=== PATIENT | female | born 1990 | race Caucasian/White ===

== ENCOUNTER 2023-06-17 16:45 | Outpatient (OUT) | payer OTHER, SELFPAY ==
[2023-06-17 17:34] LABS: Basophils Absolute Auto 0.1 10^3/uL (0.0-0.1); Basophils Percent Auto 0.7 % (0.2-2.0); Eosinophils Absolute Auto 0.3 10^3/uL (0.0-0.7); Eosinophils Percent Auto 2.7 % (0.9-7.0); Hematocrit 43.8 % (36.0-48.0); Hemoglobin 14.9 g/dL (12.0-16.0); Immature Granulocytes Abs Auto 0.02 10^3/uL (0.00-0.03); Immature Granulocytes Pct Auto 0.2 % (0.0-0.5); Lymphocytes Absolute Auto 2.6 10^3/uL (1.2-3.8); Lymphocytes Percent Auto 25.5 % (20.5-60.0); Mean Corpuscular Hemoglobin 29.3 pg (26.7-34.0); Mean Corpuscular Volume 86.1 fL (81.0-99.0); Mean Platelet Volume 12.7 fL (9.5-13.5); Monocytes Absolute Auto 0.5 10^3/uL (0.3-0.8); Monocytes Percent Auto 5.3 % (1.7-12.0); Neutrophils Absolute Auto 6.7 10^3/uL (1.4-6.5); Neutrophils Percent Auto 65.6 % (43.0-75.0); Platelet Count 210 10^3/uL (150-450); Red Blood Count 5.09 10^6/uL (4.20-5.40); Red Cell Distribution Width 15.3 % (11.0-15.0); White Blood Count 10.1 10^3/uL (4.0-11.0)
[2023-06-17 17:55] LABS: Percent Iron Saturation 9.7 %
[2023-06-17 18:34] LABS: Alanine Aminotransferase 24 U/L (14-59); Albumin Globulin Ratio 1.1; Albumin Level 3.8 g/dL (3.4-5.0); Alkaline Phosphatase 128 U/L (46-116); Anion Gap 16.1; Aspartate Amino Transferase 20 U/L (15-37); BUN Creatinine Ratio 16.5; Bilirubin Total 0.9 mg/dL (0.2-1.0); Calcium 8.5 mg/dL (8.5-10.1); Carbon Dioxide 27.1 mmol/L (21.0-32.0); Chloride 106 mmol/L (98-107); Estimated GFR (African America >60 (>=60); Estimated GFR (Non-African Ame >60 (>=60); Globulin 3.4 g/dL; Glucose 84 mg/dL (74-106); Phosphorus 2.8 mg/dL (2.6-4.7); Sodium 147 mmol/L (136-145); Total Protein 7.2 g/dL (6.4-8.2)
[2023-06-17 19:00] LABS: Magnesium 2.2 mg/dL (1.8-2.4)
[2023-06-18 08:26] LABS: Potassium 2.2 mmol/L (3.5-5.1)
[2023-06-22 12:08] LABS: Vitamin B1 (Thiamine), Blood 90.5 nmol/L (66.5-200.0)
== END 2023-06-17 16:46 | disposition home or self-care (01) ==
LOC: LAB 16:51
PROVIDERS: PCP Family Medicine
DX: K90.9 Intestinal malabsorption, unspecified (principal); Z98.84 Bariatric surgery status; D50.9 Iron deficiency anemia, unspecified; I10 Essential (primary) hypertension; E87.6 Hypokalemia; K21.00 Gastro-esophageal reflux disease with esophagitis, without bleeding
CPT/HCPCS: 36415; 80053; 82306; 82607; 82728; 82746; 83540; 83550; 83735; 84100; 84425; 85025

== ENCOUNTER 2023-08-20 09:54 | Outpatient (OUT) | payer OTHER, SELFPAY ==
--- OUTSIDE RECORDS SUMMARY | 2023-08-20 09:59 | XMS_ITS | CCD ---
Author Name Unknown Address [address] [place] [address] Organization [facility] Care Team Providers [facility] Clinical Research Associate Name Role Phone Spasic, Carmelo Unavailable Unavailable Roryc, Carmelo Unavailable Unavailable IMMANUEL KUHN Unavailable Unavailable Immanuel Kuhn Unavailable Unavailable Unavailable DO Immanuel Kuhn Primary Care Provider NETTIE Prakash Attending Provider REJI Rhodes Attending Provider [phone] Manasa Rhodes Admitting Unavailable Immanuel Kuhn Primary Care Unavailable Manasa Rhodes Attending Unavailable Immanuel Kuhn Primary Care Unavailable Tiarra Prakash Attending Unavailable Tiarra Prakash Admitting Unavailable RAVINDRA LEMA Referring Unavailable RAVINDRA LEMA Attending Unavailable RAVINDRA LEMA Attending Unavailable PAY ., DR TIWARI Attending Unavailable PAY ., DR TIWARI Consulting Unavailable PAY ., DR TIWARI Admitting Unavailable BAM, DR MILLER Primary Care Unavailable PAY ., DR TIWARI Attending Unavailable PAY ., DR TIWARI Consulting Unavailable BAM, DR MILLER Primary Care Unavailable PAY ., DR TIWARI Admitting Unavailable ZAKIA BENSON Admitting Unavailable ZAKIA BENSON Attending Unavailable ZAKIA BENSON Consulting Unavailable BAM, DR MILLER Primary Care Unavailable BAM, DR MILLER Primary Care Unavailable MISC, DR INIGUEZ Admitting Unavailable MISC, DR INIGUEZ Attending Unavailable MISC, DR INIGUEZ Consulting Unavailable BRIDGETTE, DR MURO Admitting Unavailable BRIDGETTE, DR MURO Attending Unavailable BRIDGETTE, DR MURO Consulting Unavailable BAM, DR MILLER Primary Care Unavailable Judy, Dr. Hull Attending Dr. Immanuel Linn Primary Care Unavailhermes Kim, Dr. Hull Attending Nadia Kim, Dr. Hull Referring Unavailhermes Kuhn, Dr. Immanuel Toure Primary Care Unavaila JUAN Watt Attending Unavailable GAGANDEEP DUNAWAYANDRA Colon Referring Unavailable ТАТЬЯНА RODRIGUEZ Attending Unavailable IMMANUEL KUHN Referring Unavailable SHEILA LOUIS Attending Unavailable MANASA DUNAWAY Attending Unavailable SHEILA LOUIS Attending Unavailable IMMANUEL KUHN Referring Unavailable ALEX NAIK Attending Unavailable GAGANDEEP DUNAWAYANDRA H Referring Unavailable JUAN BARON Attending Unavailable GAGANDEEP DUNAWAYANDRA H Referring Unavailable JHONY GARCIA Attending Unavailable GAGANDEEP DUNAWAYANDRA H Referring Unavailable JUAN BARON Attending Unavailable GAGANDEEP DUNAWAYANDRA H Referring Unavailable Allergies Allergy Classification Reported Allergen(s) Allergy Type Date of Onset Reaction(s) Facility (1 source) No Known Medication Allergies; Translations: [No Known Medication Allergies] Propensity to adverse reactions to drug (disorder) [facility] Medications Current Medications Medication Drug Class(es) Dates Sig (Normalized) Sig (Original) loperamide hydrochloride 2 mg oral tablet (2 sources) Opioid Agonist Start: 05-03-2017 Loperamide (Imodium A-D) 2 mg tablet Active 2 MG PO Q4H May 02, 2017 11:00pm after each loose stool until symptoms controlled; do not exceed 16 mg total dose in 24 hrs promethazine hydrochloride 25 mg oral tablet (2 sources) Phenothiazine Start: 05-03-2017 take 25 mg by mouth every six hours Promethazine Active 25 MG PO Q6H May 02, 2017 11:00pm Completed/Discontinued Medications Medication Drug Class(es) Dates Sig (Normalized) Sig (Original) amLODIPine 10 mg oral tablet (2 sources) Dihydropyridine Calcium Channel Clover Start: 12-03-2021 take 1 tablet by mouth once daily amLODIPine Besylate 10 MG Oral Tablet TAKE 1 TABLET BY MOUTH EVERY DAY Quantity: 90 Refills: 0 Ordered: 11-Mar-2022 DO Start : 03-Dec-2021 Active carvedilol 25 mg oral tablet (2 sources) alpha-Adrenergic Clover, beta-Adrenergic Clover Start: 08-18-2021 take 1 tablet by mouth twice daily Carvedilol 25 MG Oral Tablet take 1 tablet by mouth twice a day Quantity: 180 Refills: 3 Ordered: 07-Aug-2022 Della Kim MD Start : 18-Aug-2021 Active gabapentin 400 mg oral capsule (2 sources) Anti-epileptic Agent Start: 05-20-2022 take 1 capsule by mouth twice daily Gabapentin 400 MG Oral Capsule Take 1 capsule twice daily Quantity: 0 Refills: 0 Ordered: 20-May-2022 DO Start : 20-May-2022 Active hydrALAZINE hydrochloride 25 mg oral tablet (2 sources) Arteriolar Vasodilator Start: 04-23-2022 take 1 tablet by mouth twice daily at mealtime hydrALAZINE HCl - 25 MG Oral Tablet TAKE 1 TABLET BY MOUTH TWICE A DAY WITH FOOD Quantity: 180 Refills: 0 Ordered: 24-Apr-2022 DO Start : 23-Apr-2022 Active lamoTRIgine 150 mg oral tablet (2 sources) Mood Stabilizer, Anti-epileptic Agent Start: 05-21-2022 take 1 tablet by mouth twice daily lamoTRIgine 150 MG Oral Tablet TAKE 1 TABLET TWICE DAILY. Quantity: 0 Refills: 0 Ordered: 21-May-2022 DO Start : 21-May-2022 Active Natazia 3/2-2/2-3/1 MG Oral Tablet (2 sources) Start: 09-27-2021 take 1 tablet by mouth once daily Natazia 3/2-2/2-3/1 MG Oral Tablet TAKE 1 TABLET BY MOUTH EVERY DAY CONTINUOUSLY Quantity: 28 Refills: 0 Ordered: 29-May-2022 DO Start : 27-Sep-2021 Active microencapsulated potassium chloride 20 meq extended release oral tablet (2 sources) Start: 04-27-2022 take 1 tablet by mouth once daily Klor-Con M20 20 MEQ Oral Tablet Extended Release TAKE 1 TABLET BY MOUTH EVERY DAY Quantity: 90 Refills: 0 Ordered: 27-Apr-2022 DO Start : 27-Apr-2022 Active Problems Active Problems Problem Classification Problem Date Documented Da te Episodic/Chronic Administrative/social admission (4 sources) Encounter for blood-alcohol and blood-drug test; Translations: [ENC BLOOD-ALCOHOL BLOOD-DRUG TEST] Onset: 10-23-2022 Episodic Cancer of brain and nervous system (2 sources) Malignant neoplasm of brain, unspecified; Translations: [Malignant neoplasm of brain, unspecified] Onset: 10-22-2022 Chronic Essential hypertension (4 sources) Benign essential hypertension; Translations: [Benign essential hypertension] 05-03-2017 Chronic Menstrual disorders (1 source) Dysmenorrhea, unspecified; Translations: [DYSMENORRHEA UNSPECIFIED] Onset: 01-10-2022 Chronic Nausea and vomiting (2 sources) Nausea; Translations: [Nausea] 05-03-2017 Episodic Other connective tissue disease (1 source) Plantar fascial fibromatosis; Translations: [Plantar fascial fibromatosis] Onset: 09-13-2022 Episodic Other endocrine disorders (2 sources) Polycystic ovary syndrome; Translations: [Polycystic ovaries] Chronic Other endocrine disorders (4 sources) Polycystic ovarian syndrome; Translations: [POLYCYSTIC OVARIAN SYNDROME] Onset: 01-04-2022 Chronic Other gastrointestinal disorders (2 sources) Diarrhea; Translations: [Diarrhea, unspecified] 05-03-2017 Episodic Other nutritional; endocrine; and metabolic disorders (2 sources) Body mass index 40+ - severely obese; Translations: [Morbid obesity] Chronic Other nutritional; endocrine; and metabolic disorders (1 source) Obesity, unspecified; Translations: [OBESITY UNSPECIFIED] Onset: 09-10-2022 Chronic Other nutritional; endocrine; and metabolic disorders (1 source) Body mass index (BMI) 45.0-49.9, adult; Translations: [BODY MASS INDEX BMI 45.0-49.9 ADULT] Onset: 09-10-2022 Chronic Residual codes; unclassified (1 source) Tobacco use; Translations: [TOBACCO USE] Onset: 10-27-2022 Episodic Screening and history of mental health and substance abuse codes (2 sources) Ex-smoker; Translations: [Personal history of tobacco use] Episodic Comment on above: quit 2021; Unclassified (2 sources) Consult; Translations: [Consult] Onset: 09-10-2022 Unclassified (1 source) CONTACT W/AND (SUSP) EXPOS COVID-19; Translations: [CONTACT W/AND (SUSP) EXPOS COVID-19] Onset: 12-13-2022 Past or Other Problems Problem Classification Problem Date Documented Da te Episodic/Chronic Fluid and electrolyte disorders (5 sources) Hypokalemia; Translations: [Hypokalemia] Onset: 09-07-2022 Episodic Other aftercare (1 source) Other residential (current) drug therapy; Translations: [OTH CATALYST IMPREGNATOR CURRENT DRUG THERAPY] Onset: 09-10-2022 Episodic Results Test Name Value Interpretation Reference Range Facility CT ABDOMEN W AND WO IV CONTR Sheela 07-03-2023 CT ABDOMEN W AND WO IV CONTRAST EXAM: CT ABDOMEN W AND WO IV CONTRAST History: recheck of left adrenal nodule, was 8 mm 4 years ago. Technique: Multiple contiguous axial images were obtained of the abdomen and pelvis from the level of the lung bases through the ischial tuberosities without and with contrast. Multiplanar reformats were obtained. 15-minute delayed images were obtained. All CT scans at this facility use dose modulation, iterative reconstruction, and/or weight based dosing when appropriate to reduce radiation dose to as low as reasonably achievable. Comparison: None available Findings: Lung bases are clear. A left adrenal nodule measures approximately 18 mm. Precontrast Hounsfield units of 6, 75-second postcontrast Hounsfield units of 29, and 15-minute delayed Hounsfield units of -44 absolute washout of 143.5% and relative washout of 113.8%. Postsurgical changes of the stomach. The liver, gallbladder, spleen, pancreas, and right adrenal gland are within normal limits. The kidneys enhance uniformly. There are a few tiny nonobstructing left renal calculi. No left-sided hydronephrosis. No right-sided urinary tract calculi or hydronephrosis. Abdominal aorta is nonaneurysmal. No retroperitoneal or abdominal/pelvic lymphadenopathy. Evidence of prior bowel resection. The visualized large and small bowel appear otherwise within normal limits. No acute osseous abnormality. IMPRESSION: 18 mm left adrenal nodule compatible with adrenal adenoma. ELECTRONICALLY SIGNED BY: Karson Painter, DO Normal Not Available Covid-19 PCR (CVDTB)on SARS-CoV-2 (COVID-19) RNA DARWIN+probe Ql (Unsp spec) Not detected Normal NOT DETECTED [facility] Comment on above: Result Comment: This test is not yet approved or cleared by the [place] FDA. When there are no FDA-approved or cleared tests available, and other criteria are met, FDA can make tests available under an emergency access mechanism called an Emergency Use Authorization (EUA). The EUA for this test is supported by the [place] of Health and Human Service's (HHS's) declaration that circumstances exist to justify the emergency use of in vitro diagnostics for the detection and/or diagnosis of the virus that causes COVID-19. This EUA will remain in effect (meaning this test can be used) for the duration of the COVID-19 declaration justifying emergency of IVDs, unless it is terminated or revoked by FDA (after which the test may no longer be used). When diagnostic testing is negative, the possibility of a false negative should be considered in the context of a patient's recent exposures and the presence of clinical signs and symptoms consistent with SARS-CoV-2. Performed By: #### C VDTBH #### [facility] [address] [place] [address] Dr. Maylin Ch Follow-Upon 11-05-2022 Follow-Up [id number] Janine Joy 1990 F Date Provider Department Center 11/05/2022 RAVINDRA BUCKLEY ONC DCC Family History Problem Relation Age of Onset Diabetes Mother Thyroid cancer Mother Diabetes Father Hypertension Father Family Status - Relation Status Age at Mother Father Level of Service:33102 UT OFFICE/OUTPATIENT ESTABLISHED MOD MDM 30-39 MIN Normal [facility] DRUG SCREEN RAPID (URINE)on 10-23-2022 AMP Negative Normal NEGATIVE [facility] Comment on above: Performed By: #### D RUGRPD #### [facility] [address] [place] [address] Dr. Maylin Ch BAR Negative Normal NEGATIVE [facility] Comment on above: Performed By: #### D RUGRPD #### [facility] [address] [place] [address] Dr. Maylin Ch BUP Negative Normal NEGATIVE [facility] Comment on above: Performed By: #### D RUGRPD #### [facility] [address] [place] [address] Dr. Maylin Ch BZO Negative Normal NEGATIVE [facility] Comment on above: Performed By: #### D RUGRPD #### [facility] [address] [place] [address] Dr. Maylin Ch DRE Negative Normal NEGATIVE [facility] Comment on above: Performed By: #### D RUGRPD #### [facility] [address] [address] [address] Maylin Ch CUT-OFFS SEE BELOW Normal [facility] Comment on above: Result Comment: AMP (Amphetamine): 500ng/mL, BAR (Barbituates): 200 ng/mL, BZO (Benzodiazepines): 150 ng/mL, BUP (Buprenorphine): 10 ng/mL, DRE (Cocaine): 150 ng/mL, mAMP (Methamphetamine): 500 ng/mL, MTD (Methadone): 200 ng/mL, OPI (Opiates): 100 ng/mL, OXY (Oxycodone): 100 ng/mL, PCP (Phencyclidine): 25 ng/mL, PPX (Propoxyphene): 300 ng/mL, THC (Cannabinoids): 50 ng/mL, TCA (Trycyclic Antidepressants): 300 ng/mL Performed By: #### D RUGRPD #### [facility] [address] [place] [address] Dr. Maylin Ch DRUG CUT HEADER DRUG CLASS TEST SYST EM CUT-OFF CONCENTRATIONS ARE FOLLOWS: Normal [facility] Comment on above: Performed By: #### D RUGRPD #### [facility] [address] [place] [address] Dr. Maylin Ch mAMP Negative Normal NEGATIVE [facility] Comment on above: Performed By: #### D RUGRPD #### [facility] [address] [place] [address] Dr. Maylin Ch MTD Negative Normal NEGATIVE [facility] Comment on above: Performed By: #### D RUGRPD #### [facility] [address] [place] [address] Dr. Maylin Ch OPI Negative Normal NEGATIVE [facility] Comment on above: Performed By: #### D RUGRPD #### [facility] [address] [address] [address] Maylin Ch OXY Negative Normal NEGATIVE [facility] Comment on above: Performed By: #### D RUGRPD #### [facility] [address] [place] [address] Dr. Maylin Ch PCP Negative Normal NEGATIVE [facility] Comment on above: Performed By: #### D RUGRPD #### [facility] [address] [address] [address] Maylin Ch PPX Negative Normal NEGATIVE [facility] Comment on above: Performed By: #### D RUGRPD #### [facility] [address] [id number] Maylin Ch TCA Negative Normal NEGATIVE [facility] Comment on above: Performed By: #### D RUGRPD #### [facility] [address] [address] [address] Maylin Ch THC Negative Normal NEGATIVE [facility] Comment on above: Performed By: #### D RUGRPD #### [facility] [address] [address] [address] 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 Follow-up examination. TECHNIQUE: Multiplanar and multisequence MRI examination of brain is performed without and with intravenous contrast administration. COMPARISON: Comparison is made with most recent prior postoperative MRI examination of 03/17/[address] scan of the brain of 06/08/2018. FINDINGS: The ventricular system is normal in size and configuration. 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 There is an encephalomalacia with gliosis in the right frontal lobe. No abnormal enhancement is seen. No significant interval change from prior study. Appearance is consistent with postoperative change. No evidence of recurrent neoplasm. Diffusion-weighted study demonstrates no evidence of restricted diffusion to suggest acute or subacute age of infarction. There is a herniation of the cerebral tonsils consistent with Chiari malformation. Overall appearance is stable from prior study. Brainstem is unremarkable. No mass effect, midline shift of the structures or extra-axial fluid collections are noted. Postcontrast examination reveals no abnormal meningeal or parenchymal enhancement. Both internal carotid and vertebral basilar arteries are patent. Dural venous sinuses are patent without evidence of thrombosis. Visualized paranasal sinuses and mastoid air cells are clear. 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 Postsurgical changes seen in the right frontal lobe with gliosis without interval change from prior postoperative examination. No evidence of recurrent neoplasm. 2.Chiari I malformation and appears stable. 3.No evidence of ventriculomegaly. Electronically signed: Frank Lara. Normal [facility] Potassiumon 09-13-2022 Potassium [Moles/Vol] 3.3 mmol/L Low 3.5-5.1 [facility] Comment on above: Order Comment: Reaso n for Exam Plantar fasciitis;Encounter for preoperative assessment Result Comment: PERF ORMED BY: [facility] [address] [place] [address] PATHOLOGIST OPTOMETRIC COORDINATOR MARY ANN LAL M.D. Performed By: #### K #### [facility] [address] Serum or plasma potassium me asurement (moles/volume)Ordered By: Manasa Rhodes on 09-13-2022 Potassium [Moles/Vol] 3.3 mmol/L 3.5-5.1 [facility] Office Visiton 09-10-2022 Follow-up visit [id number] Janine Joy 1990 F Date Provider Department Center 09/10/2022 RAVINDRA BUCKLEY DCC ONC DCC Family History Problem Relation Age of Onset Diabetes Mother Thyroid cancer Mother Diabetes Father Hypertension Father Family Status - Relation Status Age at Mother Father Level of Service:60687 UT OFFICE/OUTPATIENT ESTABLISHED MOD MDM 30-39 MIN Reason for Visit and Comments: Consult [484] - Past patient, coming back today to have imaging reordered. Normal [facility] Orders Onlyon 09-10-2022 Orders Only [id number] Janine Joy 1990 F Date Provider Department Center 09/10/2022 MONICA DOMINGUEZ DCC ONC DCC Family History Problem Relation Age of Onset Diabetes Mother Thyroid cancer Mother Diabetes Father Hypertension Father Family Status - Relation Status Age at Mother Father Normal [facility] MAGNESIUMon 09-07-2022 Magnesium [Mass/Vol] 1.9 mg/dL Normal 1.8-2.[address] [facility] Comment on above: Performed By: #### M YAMILET Yun, SHARITA #### [facility] [address] [address] [address] Maylin Ch PHOSPHORUSon 09-07-2022 Phosphate [Mass/Vol] 3.7 mg/dL Normal 2.6-4.7 [facility] Comment on above: Performed By: #### M G, PHOS, BMP #### [facility] [address] [address] [address] Maylin Ch PROF CHEM 8 (BAS METB)on Anion gap [Moles/Vol] 14.3 mmol/L Normal [facility] Comment on above: Performed By: #### M G, PHOS, BMP #### [facility] [address] [place] [address] Dr. Maylin Ch Calcium [Mass/Vol] 9.3 mg/dL Normal 8.5-10.1 [facility] Comment on above: Performed By: #### M G, PHOS, BMP #### [facility] [address] [place] [address] Dr. Maylin Ch Chloride [Moles/Vol] 105 mmol/L Normal 98-107 [facility] Comment on above: Performed By: #### M G, PHOS, BMP #### [facility] [address] [address] [address] Maylin Ch CO2 [Moles/Vol] 31.0 mmol/L Normal 21.0-32.0 [facility] Comment on above: Performed By: #### M G, PHOS, BMP #### [facility] [address] [place] [address] Dr. Maylin Ch Creatinine [Mass/Vol] 0.90 mg/dL Normal 0.55-1.02 [facility] Comment on above: Performed By: #### M G, PHOS, BMP #### [facility] [address] [place] [address] Dr. Maylin Ch EGFR-AF GEORGIAN >60 Normal >=60 [facility] Comment on above: Performed By: #### M G, PHOS, BMP #### [facility] [address] [place] [address] Dr. Maylin Ch EGFR-NON AF GEORGIAN >60 Normal >=60 [facility] Comment on above: Performed By: #### M YAMILET Yun, BMP #### [facility] [address] [address] [address] Maylin hC Glucose [Mass/Vol] 158 mg/dL Critically high 74-106 [facility] Comment on above: Performed By: #### YAMILET Lopez, BMP #### [facility] [address] [address] [address] Maylin Ch Potassium [Moles/Vol] 2.3 mmol/L Critically low 3.5-5.1 [facility] Comment on above: Performed By: #### YAMILET Lopez, BMP #### [facility] [address] [address] [address] Maylin Ch Sodium [Moles/Vol] 147 mmol/L Critically high 136-145 [facility] Comment on above: Performed By: #### YAMILET Lopez, BMP #### [facility] [address] [address] [address] Maylin Ch Urea nitrogen [Mass/Vol] 7.0 mg/dL Normal 7.0-18.0 [facility] Comment on above: Performed By: #### YAMILET Lopez, BMP #### [facility] [address] [address] [address] Maylin Ch Urea nitrogen/Creatinine [Mass ratio] 7.8 mg/mg Normal [facility] Comment on above: Performed By: #### YAMILET Lopez, BMP #### [facility] [address] [place] [address] Dr. Maylin Ch Potassiumon 09-07-2022 Potassium [Moles/Vol] 2.4 mmol/L Off scale low 3.5-5.1 [facility] Comment on above: Result Comment: Resu lts called at 0807 on 09/07/22 PERFORMED BY: [place] [address] PATHOLOGIST OPTOMETRIC COORDINATOR MARY ANN LAL M.D. Performed By: #### K #### [address] Serum or plasma potassium me asurement (moles/volume)Ordered By: NON STAFF on 09-07-2022 Potassium [Moles/Vol] 2.4 mmol/L 3.5-5.1 [facility] Comment on above: Results calledat 080 7 on 09/07/22 Office Visit (Cardiology)on 06-06-2022 Follow-up visit Diagnoses/Problems Assessed Essential hypertension, benign (401.1) (I10) Former smoker (V15.82) (Z87.891) quit 2021 Preop cardiovascular exam (V72.81) (Z01.810) Morbid obesity with BMI of 45.0-49.9, adult (278.01,V85.42) (E66.01,Z68.42) Polycystic ovary disease (256.4) (E28.2) Orders Morbid obesity with BMI of 45.0-49.9, adult Healthy Weight Tips; Status:Complete - Retrospective Authorization; Done: 06Jun2022 Some eating tips that can help you lose weight.; Status:Complete - Retrospective Authorization; Done: 06Jun2022 Preop cardiovascular exam IO EKG Electrocardiogram- 12 Lead; Status:Complete; Done: 06Jun2022 SocHx: Former smoker Tobacco Use Screening; Status:Complete; Done: 06Jun2022 Patient Instructions Please bring all medicines, vitamins, and herbal supplements with you when you come to the office. Prescriptions will not be filled unless you are compliant with your follow up appointments or have a follow up appointment scheduled as per instruction of your physician. Refills should be requested at the time of your visit. Patient is clear for surgery from a cardiac standpoint Follow up in [9 ] months Chief Complaint HEIDI JOY is being seen for a consultation for. POC Dr. Benson, [facility] Bariatrics- Bariatric sx History of Present Illness Patient is here for evaluation for preoperative risk assessment. She is a 31-year-old with previous history of resection of malignant brain tumor, morbid obesity and hypertension. She is in the process of being evaluated for bariatric surgery. Patient is otherwise in good physical condition. She denies any complaint of chest pain, palpitation, lightheadedness, dizziness or syncope. There is no previous history of coronary artery disease or valvular heart disease. There is no history of arrhythmia or premature sudden cardiac in the family Assessment 1. Hypertension appears to be controlled. She report her recent CT scan suggest of possible adrenal mass. She reports she was seen by endocrinology but apparently no work-up was done according to her 2. Obesity with recent significant weight gain 3. History of malignant brain tumor status post resection detail is lacking 4. History of polycystic ovary disease with heavy menses 5. Iron deficiency anemia . Patient was seen in the past by endocrinology for concern about adrenal abnormalities Plan 1. Preoperative risk assessment for bariatric surgery. Patient is functional class I with no cardiac symptoms with normal cardiovascular examination abnormal EKG. Based on ACC/AHA guidelines patient can proceed to surgery without any delay or testing 2. I counseled the patient at great length regarding nonpharmacologic approach for treatment of hypertension including diet, exercise, salt restriction and weight loss 3 . Continue present antihypertensive medication 9 4. Follow-up in 9 months Current Meds Medication NameInstruction amLODIPine Besylate 10 MG Oral TabletTAKE 1 TABLET BY MOUTH EVERY DAY Carvedilol 25 MG Oral Tablettake 1 tablet by mouth twice a day Gabapentin 400 MG Oral CapsuleTake 1 capsule twice daily hydrALAZINE HCl - 25 MG Oral TabletTAKE 1 TABLET BY MOUTH TWICE A DAY WITH FOOD Klor-Con M20 20 MEQ Oral Tablet Extended ReleaseTAKE 1 TABLET BY MOUTH EVERY DAY lamoTRIgine 150 MG Oral TabletTAKE 1 TABLET TWICE DAILY. Natazia 3/2-2/2-3/1 MG Oral TabletTAKE 1 TABLET BY MOUTH EVERY DAY CONTINUOUSLY Allergies Medication No Known Drug Allergies Recorded By: Chuy Cole; 06/06/2022 3:44:55 PM Social History Problems Consumes alcohol occasionally (V49.89) (Z78.9) Daily caffeine consumption, 2-3 servings a day Former smoker (V15.82) (Z87.891) quit 2021 No illicit drug use Review of Systems Constitutional: not feeling tired. Cardiovascular: no intermittent leg claudication and as noted in HPI. Respiratory: no cough and no shortness of breath. Gastrointestinal: no change in bowel habits and no blood in stools. Integumentary: no skin rashes. Neurological: no seizures and no frequent falls. All other systems have been reviewed and are negative for complaint. Vitals Vital Signs Recorded: 06Jun2022 04:17PMRecorded: 06Jun2022 03:45PM [id number], LUE, Sitting [id number], LUE, Sitting Heart Rate71, Apical Height5 ft 7 in Dnpspb976 lb BMI Rurtzxngfq02.77 kg/m2 BSA Calculated2.42 Tobacco Useb) No PHQ-2 #1. Over the last 2 weeks have you felt down, depressed or hopeless? (If yes, answer PHQ-9 below)No PHQ-2 #2. Over the last 2 weeks have you felt little interest or pleasure in doing things? (If yes, answer PHQ-9 below)No EKG done in office today. Physical Exam Constitutional: alert and in no acute distress. Eyes: no erythema, swelling or discharge from the eye . Neck: neck is supple, symmetric, trachea midline, no masses and no thyromegaly . Pulmonary: no increased work of breathing or signs of respiratory distress and lungs clear to auscul (more content not included)... Normal [employer] Tobacco Screening.on 022 Adult depression screening assessment No -[facility] AngioScore 250 DO Work Phone: Tobacco use status CPHS b) No M -[facility] AngioScore 250 DO Work Phone: DHEA SERUMon 01-12-2022 Dehydroepiandrosterone (DHEA) 287 ng/dL Normal 31-701 [facility] Comment on above: Result Comment: Age 1 - 5 years 0 - 67 6 - 7 years 0 - 110 8 - 10 years 0 - 185 11 - 12 years 0 - 201 13 - 14 years 0 - 318 15 - 16 years 39 - 481 17 - 19 years 40 - 491 >19 years 31 - 701 Performed By: #### D A. #### [facility] [address] [address] [address] Maylin Ch TESTOSTERONE, FREE,DIRECT, T OTALon 01-06-2022 Free Testosterone(Direct) 1.6 pg/mL Normal 0.0-4.2 [facility] Comment on above: Result Comment: Perf ormed at: BN Performed By: #### T ESTFRD #### [facility] [address] [place], [place] [address] Dr. Maylin Ch Testosterone [Mass/Vol] 17 ng/dL Normal 13-71 [facility] Comment on above: Result Comment: Perf ormed at: CB Performed By: #### T ESTFRD #### [facility] [address] [place] [address] Dr. Maylin Ch INSULINon 01-05-2022 Insulin 13.2 uIU/mL Normal 2.6-24.9 [facility] Comment on above: Performed By: #### I NSULIN #### [facility] [address] [place] [address] Dr. Maylin Ch GLYCOHEMOGLOBIN A1Con 2021 ADA RECOMMENDATION SEE BELOW Normal [facility] Comment on above: Result Comment: ADA RECOMMENDED LIMIT 4.0 - 6.0 ADA THERAPEUTIC TARGET < 7.0 ACTION SUGGESTED > 7.0 Performed By: #### A 1C #### [facility] [address] [place] [address] Dr. Maylin Ch Glucose [Mass/Vol] 146 mg/dL Normal [facility] Comment on above: Performed By: #### A 1C #### [facility] [address] [place] [address] Dr. Maylin Ch HbA1c (Bld) [Mass fraction] 6.7 % Critically high 4.5-6.2 [facility] Comment on above: Performed By: #### A 1C #### [facility] [address] [place] [address] Dr. Maylin Ch TSHon 01-04-2022 TSH 3.214 uIU/mL Normal 0.358-3.74 0 [facility] Comment on above: Performed By: #### T SH #### [facility] [address] [place] [address] Dr. Maylin Ch TSH RANGE SEE BELOW Normal [facility] Comment on above: Result Comment: <0.3 4 UIU/ml HYPERTHYROID 0.34-5.60 UIU/ml EUTHYROID >5.60 UIU/ml HYPOTHYROID Performed By: #### T SH #### [facility] [address] [place] [address] Dr. Maylin Ch Potassiumon 10-05-2021 Potassium [Moles/Vol] 3.3 mmol/L Low 3.5-5.5 [facility] Comment on above: Performed By: #### K #### [facility] [address] [place] [id number] [place] 09-11-2021 Consent [id number]#[id number]:127 Normal [facility] Registrationon 09-11-2021 Registration [id number]#[id number]:127 Normal [facility] Basic Metabolic Panelon 08-06 Anion gap [Moles/Vol] 21 mmol/L High 12-20 [facility] Specialist Comment on above: Result Comment: Effe ctive 08/10/2019 reference range changed. Performed By: #### B MP #### [facility] [address] [place], [place] [id number] Calcium [Mass/Vol] 9.3 mg/dL Normal 8.6-10.2 [facility] Comment on above: Performed By: #### B MP #### [facility] [address] [facility] [id number] Chloride [Moles/Vol] 106 mmol/L Normal 98-107 [facility] Comment on above: Performed By: #### B MP #### [facility] [address] [place], [place] [id number] CO2 [Moles/Vol] 20 mmol/L Normal 20-31 [facility] Comment on above: Performed By: #### B MP #### [facility] [address] [facility] [id number] Creatinine [Mass/Vol] 0.7 mg/dL Normal 0.6-1.4 [facility] Comment on above: Performed By: #### B MP #### [facility] [address] [place], [place] [id number] eGFRAA 115 mL/min/1.73m2 Normal >60 [facility] Specialist Comment on above: Performed By: #### B MP #### [facility] [address] [place], [place] [id number] eGFRNAA 95 mL/min/1.73m2 Normal >60 [facility] Comment on above: Performed By: #### B MP #### [facility] [address] [place], [place] [id number] Glucose [Mass/Vol] 184 mg/dL High 65-99 Sydnie [facility] Comment on above: Result Comment: For FASTING Glucose --- ADA reference ranges: Normal 65-99 mg/dl Prediabetes 100-125 Diabetes >/= 126 Performed By: #### B MP #### [facility] [address] [place], [place] [id number] Potassium [Moles/Vol] 2.8 mmol/L Critically low 3.5-5.5 [facility] Comment on above: Result Comment: Crit ical result called to Dr Rhodes/Rylee at 09/01/2021 11:58 AM by Cyndie Montanez) Performed By: #### B MP #### [facility] [address] [place], [place] [id number] Sodium [Moles/Vol] 144 mmol/L Normal 135-146 [place] [facility] Comment on above: Performed By: #### B MP #### [facility] [address] [place], [place] [id number] Urea nitrogen [Mass/Vol] 10 mg/dL Normal 7-25 [facility] Comment on above: Performed By: #### B MP #### [facility] [address] [place], [place] [id number] Consenton 08-17-2021 Consent [id number]#[id number]:127 Normal [facility] Registrationon 08-17-2021 Registration [id number]#1.00CD:127 Normal [facility] Registrationon 04-04-2021 Registration [id number]#1.00CD:127 Normal [facility] Consenton 04-03-2021 Consent [id number]#1.00CD:127 Normal [facility] MRI BRAIN W WO CONTRASTon MRI BRAIN W WO CONTRAST [facility] Department of Radiology [address] [place] [address] Patient Name: HEIDI JOY : 1990 Sex: F Age: Race: White Pt. 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, ATRX intact, 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 status post resection, surveillance imaging,MRI brain around March 2020 , , , Ordering Provider - GANGA RODRIGUES MD , Exam: MRI BRAIN W WO CONTRAST MRI BRAIN W WO CONTRAST 03/17/2020 10:13 AM CLINICAL INDICATIONS: C71.9 Malignant neoplasm of brain, unspecified I10 TECHNOLOGIST COMMENTS: tumor resection x 1 1/2 years ago f/u study QUESTION FOR RADIOLOGIST: , 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 Post contrast imaging in sagittal 3D and axial 3D. CONTRAST: Contrast: DOTAREM .5mmol, 20 milliliter, Intravenous COMPARISON: MR brain 09/11/2019 FINDINGS: There is a 1.2 cm tonsillar herniation unchanged from prior exam. Ventricles and basal cisterns normal in size and configuration. Luke-white differentiation intact. Postop changes with CSF fluid signal in the right frontal resection bed. There is small area of adjacent gliosis in the right frontal lobe. No restricted diffusion or postcontrast enhancement in the area. Mild mucosal thickening in ethmoid cells. Bilateral mastoids are unremarkable. Postsurgical changes in the calvarium of the right frontal temporal region. IMPRESSION: * Postsurgical changes in the right frontal lobe with CSF filling the resection bed and adjacent gliosis in the right frontal lobe. No abnormal enhancement to suggest recurrence. * 1.2 cm tonsillar herniation, unchanged from prior exams Approved by:Jonathan Arceon03/17/2020 11:38 AM. I, Shawn Martins,have reviewed the images and reports Electronically signed: Shawn Martins. 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 status post resection, surveillance imaging,MRI brain around March 2020 , , , Ordering Provider - GANGA RODRIGUES MD , Ishan 02-02-2020 CNOVSP Visit (SP) Office ([facility]) -- HEIDI JOY ([id number]) 1990 F Date Time Provider Department 02/02/20 10:45 AM BRIDGET ULLOA) [place] During your visit today, we recorded the following information about you: Temperature Pulse Respiration Blood pressure 98 degrees 76/minute 16/minute 185/95 Weight Height 114.2 kg 1.702 m Bridget Ulloa MD 02/02/2020 5:54 PM Signed PATIENT NAME: Heidi Joy CLINIC NO.: [id number] ATTENDING PHYSICIAN: Bridget Ulloa MD DATE OF SERVICE: February 02, [address] Kuhn and Bridgette, here is an update on a follow up visit on female Heidi Joy at the clinic 02/02/2020 Diagnosis: 1. Heavy menstrual bleeding. 2. Iron deficiency Treatment History: HPI: Heidi Joy is a 29 year old year old female here for follow up. Overall doing well. Continues to complain of fatigue. She states that she has not noticed much improvement with the oral iron and looking for an alternative. She did undergo von Willebrand's testing including multimer analysis which was essentially normal. She also underwent, platelet aggregation studies which again were normal as well. PAST MEDICAL HISTORY Diagnosis Date - Kidney stones - Malignant brain tumor (HCC) 08/[address] Lema - Microcytic anemia - Otalgia of right ear - PCOS (polycystic ovarian syndrome) - Plantar fasciitis Social History Tobacco Use - Smoking status: Never Smoker - Smokeless tobacco: Never Used Substance Use Topics - Alcohol use: Yes - Drug use: Never FAMILY HISTORY Problem Relation Age of Onset - Diabetes Mother - Diabetes Father - Heart disease Father - Hypertension Father - other (lung cancer) Paternal Grandmother Past medical, social and family history reviewed without any changes. REVIEW OF SYSTEMS GENERAL: No weight loss, malaise or fevers. No night sweats. HEENT: Negative for headaches, No changes in hearing or vision, no nose bleeds or other nasal problems. RESPIRATORY: Negative for cough, wheezing and shortness of breath CARDIOVASCULAR: Negative for chest pain, leg swelling and palpitations GI: Negative for abdominal discomfort, blood in stools or black stools and change in bowel habits : Negative for dysuria, frequency and incontinence MUSCULOSKELETAL: Negative for joint pain or swelling, back pain, and muscle pain. SKIN: Negative for lesions, rash, and itching. HEMATOLOGY/LYMPHOLOGY Negative for prolonged bleeding, bruising easily, and swollen nodes. NEURO: Negative for numbness or tingling of hands/feet. No weakness. PHYSICAL EXAMINATION: BP 185/95 Pulse 76 Temp (Src) 98 (Temporal) Resp 16 Ht 5' 7.008 (1.70m) Wt 251 lb 12.8 oz (114.2kg) SpO2 99% BMI 39.43 kg/(m2). Wt 114.2 kg (251 lb 12.8 oz) BMI 39.43 kg/m2 Last 3 Encounter Wt Readings: Date: Wt: 02/02/2020 114.2 kg (251 lb 12.8 oz) 01/08/2020 113 kg (249 lb 3.2 oz) General appearance:ECOG PERFORMANCE STATUS: 0- Fully active, able to carry on all pre-disease performance w/o restriction. Patient in NAD. Skin: Skin color, texture, turgor normal. No rashes or lesions. Eyes: Anicteric sclera. Pupils are equally round and reactive to light. Extraocular movements are intact. Lymph Nodes: No cervical, supraclavicular, axillary or inguinal adenopathy. Oropharynx: Lips, mucosa, and tongue normal. Back: No pain to percussion. Negative SLR test Lungs clear to auscultation, No wheezing or rhonchi Heart: RRR without murmur, gallop, or rubs. Abdomen soft, non-tender. No masses, organomegaly Extremities: No deformities. No edema Neuro: Gait and speech normal. Reflexes normal and symmetric. Muscular strength intact. Sensation grossly intact. Rectal: Deferred : Deferred LABS: Glucose (mg/dL) Date Value 01/15/2020 165 Potassium (mmol/L) Date Value 01/15/2020 3.2 Sodium (mmol/L) Date Value 01/15/2020 145 Chloride (mmol/L) Date Value 01/15/2020 103 CO2 (mmol/L) Date Value 01/15/2020 25 Creatinine (mg/dL) Date Value 01/15/2020 0.78 BUN (mg/dL) Date Value 01/15/2020 8 Anion Gap (mmol/L) Date Value 01/15/2020 17 Calcium (mg/dL) Date Value 01/15/2020 8.8 Protein, Total (g/dL) Date Value 01/15/2020 7.1 Albumin (g/dL) Date Value 01/15/2020 4.2 Bilirubin, Total (mg/dL) Date Value 01/15/2020 0.4 Alkaline Phosphatase (U/L) Date Value 01/15/2020 95 AST (U/L) Date Value 01/15/2020 13 ALT (U/L) Date Value 01/15/2020 13 WBC Date Value Ref Range Status 01/15/2020 8.63 3.70 - 11.00 k/uL Final RBC Date Value Ref Range Status 01/15/2020 4.91 3.90 - 5.20 m/uL Final Hemoglobin Date Value Ref Range Status 01/15/2020 12.7 11.5 - 15.5 g/dL Final Hematocrit Date Value Ref Range Status 01/15/2020 41.4 36.0 - 46.0 % Final MCV Date Value Ref Range Status 01/15/2020 84.3 80.0 - 100.0 fL Final MCH Date Value Ref Range Status 01/15/2020 25.9 (L) 26.0 - 34.0 pG Final MCHC Date Value Ref Range Status 01/15/2020 30.7 30.5 - 36.0 g/dL Final RDW-CV Date Value Ref Range Status 01/15/2020 16.4 (H) 11.5 - 15.0 % Final Platelet Count Date Value Ref Range Status 01/15/2020 219 150 - 400 k/uL Final MPV Date Value Ref Range Status 01/15/2020 10.8 9.0 - 12.7 fL Final Abs Neut (ANC) Date Value Ref Range Status 01/15/2020 6.27 1.45 - 7.50 k/uL Final Lymph% Date Value Ref Range Status 01/15/2020 19.4 % Final Abs Lymph Date Value Ref Range Status 01/15/2020 1.67 1.00 - 4.00 k/uL Final Wilkes% Date Value Ref Range Status 01/15/2020 4.8 % Final Abs Wilkes Date Value Ref Range Status 01/15/2020 0.41 <0.87 k/uL Final Abs Eosin Date Value Ref Range Status 01/15/2020 0.25 <0.46 k/uL Final Baso% Date Value Ref Range Status 01/15/2020 0.3 % Final Abs Baso Date Value Ref Range Status 01/15/2020 0.03 <0.11 k/uL Final PATH: Imaging: Assessment and Plan: Heidi Joy is a 29 year old year old female here for follow up. 1. Heavy menstrual bleeding- continue follow-up with Dr. Angeles. No distinct evidence of a bleeding disorder although I stated that if there is ongoing suspicion one can consider repeating the von Willebrand's panel. Her platelet aggregation studies were normal. 2. Iron deficiency secondary to heavy menstrual blood loss. She is not getting adequate control and recovery from the oral iron and suggested proceeding with IV iron infusion. Check back parameters in 8 weeks. Thank you for the kind referral. If there are any questions and or concerns please do not hesitate to contact me at [phone]. Bridget Ulloa MD Hematology/Medical Oncology [facility] CC: MD Esther Cedeno MD Referring Provider: SELF [200] Allergies As of Date: 02/02/2020 (No Known Allergies) Date Reviewed: 02/02/2020 Reviewed by: Glo Reece MA STUDENT - Fully Assessed Reason for Visit: excessive bleeding in the premenopausal period [Other] Cmt: 3 week follow up Reason For Visit History Recorded Primary Visit Diagnosis:Excessive bleeding in the premenopausal period [N92.4] Other Visit Diagnoses:Hypertension, unspecified type [I10] Iron deficiency [E61.1] Order(s):CONSULT TO CARDIOLOGY [9004] Order #: [id number]: 1 FUTURE CBC + DIFF (FOR REMOTE [facility] USE) [SQRCBCDF] Order #: [id number] FUTURE COMP METABOLIC PANEL [SQCMP] Order #: [id number] FUTURE IRON + TIBC [SQIRON] Order #: [id number] FUTURE FERRITIN BLD [SQFERR] Order #: [id number] FUTURE Follow-up and Disposition History Recorded Prescriptions as of 02/02/2020 Sig: FERROUS SULFATE 27 MG IRON TA* Take by mouth twice daily. SERTRALINE 50 MG TABLET Take 50 mg by mouth once yaya* SERTRALINE 25 MG TABLET Take 25 mg by mouth once yaya* ALYACEN 135 (28) 1 MG-35 MCG* Take 1 tablet by mouth once d* AMLODIPINE 10 MG TABLET Take 10 mg by mouth once yaya* TERAZOSIN 2 MG CAPSULE Take 2 mg by mouth daily at b* PROPRANOLOL ORAL Take 40 mg by mouth twice silvestre* MINOCYCLINE 100 MG CAPSULE Take 1 capsule by mouth twice* Problem List As Of Date 02/02/2020 Noted Resolved Hidradenitis suppurativa of right axilla [L73.2]10/27/2012 Comedone [L70.0] 10/27/2012 Iron deficiency [E61.1] 02/02/2020 Encounter Status:Closed by BRIDGET ULLOA MD on 02/02/20 [facility] [facility] ([id number]) 1990 F Date Time Provider Department 02/02/20 BRIDGET ULLOA) [facility] During your visit today, we recorded the following information about you: Goyo Taylor Sec 02/02/2020 11:04 AM Signed [place] can you please send patients records to [facility] please! Goyo Taylor Sec 02/02/2020 11:06 AM Signed Patient is scheduled with Dr Kim on February 14 at 3:00PM Bridget Ulloa MD 02/02/2020 11:31 AM Signed Boaz Pineda [facility] 02/03/2020 8:00 AM Signed Records faxed to Dr. Kim. Allergies As of Date: 02/02/2020 (No Known Allergies) Date Reviewed: 02/02/2020 Reviewed by: Glo Reece MA STUDENT - Fully Assessed Reason for Visit: Appointment Confirmation [[id number]] Prescriptions as of 02/02/2020 Sig: FERROUS SULFATE 27 MG IRON TA* Take by mouth twice daily. SERTRALINE 50 MG TABLET Take 50 mg by mouth once yaya* SERTRALINE 25 MG TABLET Take 25 mg by mouth once yaya* ALYACEN 1/35 (28) 1 MG-35 MCG* Take 1 tablet by mouth once d* AMLODIPINE 10 MG TABLET Take 10 mg by mouth once yaya* TERAZOSIN 2 MG CAPSULE Take 2 mg by mouth daily at b* PROPRANOLOL ORAL Take 40 mg by mouth twice silvestre* MINOCYCLINE 100 MG CAPSULE Take 1 capsule by mouth twice* Problem List As Of Date 02/02/2020 Noted Resolved Hidradenitis suppurativa of right axilla [L73.2]10/27/2012 Comedone [L70.0] 10/27/2012 Iron deficiency [E61.1] 02/02/2020 Encounter Status:Closed [facility]GS [facility] CEFERINOHEIDI Hermes ([id number]) 1990 F Date Time Provider Department 02/02/20 BRIDGET ULLOA MD During your visit today, we recorded the following information about you: Sheila Latif RN, RN 02/02/2020 12:04 PM Signed ----- Message from Goyo Cordoba) Jules RN sent at 02/02/2020 11:57 AM EDT ----- ----- Message ----- From: Bridget Galicia) Artemio Sent: 02/02/2020 11:31 AM EDT To: Goyo Cordoba) Jules RN Please send to Dr. Bridgette Latif RN, RN 02/02/2020 12:05 PM Signed Result sent to Dr Angeles. Sheila Latif RN Allergies As of Date: 02/02/2020 (No Known Allergies) Date Reviewed: 02/02/2020 Reviewed by: Glo Reece MA STUDENT - Fully Assessed Reason for Visit: Results [95] Prescriptions as of 02/02/2020 Sig: FERROUS SULFATE 27 MG IRON TA* Take by mouth twice daily. SERTRALINE 50 MG TABLET Take 50 mg by mouth once yaya* SERTRALINE 25 MG TABLET Take 25 mg by mouth once yaya* ALYACEN 1/35 (28) 1 MG-35 MCG* Take 1 tablet by mouth once d* AMLODIPINE 10 MG TABLET Take 10 mg by mouth once yaya* TERAZOSIN 2 MG CAPSULE Take 2 mg by mouth daily at b* PROPRANOLOL ORAL Take 40 mg by mouth twice silvestre* MINOCYCLINE 100 MG CAPSULE Take 1 capsule by mouth twice* Problem List As Of Date 02/02/2020 Noted Resolved Hidradenitis suppurativa of right axilla [L73.2]10/27/2012 Comedone [L70.0] 10/27/2012 Iron deficiency [E61.1] 02/02/2020 Encounter Status:Closed by SHEILA LATIF RN [facility] 02[facility]02/20 [facility] 02-02-2020 PROGRESS HNO ID: [id number] Author: rBidget Galicia) Artemio Service: ? Author Type: Physician Type: Progress Notes Filed: 02/02/2020 5:54 PM Note Text: PATIENT NAME: Heidi Joy CLINIC NO.: [id number] ATTENDING PHYSICIAN: Bridget Ulloa MD DATE OF SERVICE: February 02, [address] Kuhn and Bridgette, here is an update on a follow up visit on female Heidi Joy at the clinic 02/02/2020 Diagnosis: 1. Heavy menstrual bleeding. 2. Iron deficiency Treatment History: HPI: Heidi Joy is a 29 year old year old female here for follow up. Overall doing well. Continues to complain of fatigue. She states that she has not noticed much improvement with the oral iron and looking for an alternative. She did undergo von Willebrand's testing including multimer analysis which was essentially normal. She also underwent, platelet aggregation studies which again were normal as well. PAST MEDICAL HISTORY Diagnosis Date - Kidney stones - Malignant brain tumor (HCC) 08/[address] Lema - Microcytic anemia - Otalgia of right ear - PCOS (polycystic ovarian syndrome) - Plantar fasciitis Social History Tobacco Use - Smoking status: Never Smoker - Smokeless tobacco: Never Used Substance Use Topics - Alcohol use: Yes - Drug use: Never FAMILY HISTORY Problem Relation Age of Onset - Diabetes Mother - Diabetes Father - Heart disease Father - Hypertension Father - other (lung cancer) Paternal Grandmother Past medical, social and family history reviewed without any changes. REVIEW OF SYSTEMS GENERAL: No weight loss, malaise or fevers. No night sweats. HEENT: Negative for headaches, No changes in hearing or vision, no nose bleeds or other nasal problems. RESPIRATORY: Negative for cough, wheezing and shortness of breath CARDIOVASCULAR: Negative for chest pain, leg swelling and palpitations GI: Negative for abdominal discomfort, blood in stools or black stools and change in bowel habits : Negative for dysuria, frequency and incontinence MUSCULOSKELETAL: Negative for joint pain or swelling, back pain, and muscle pain. SKIN: Negative for lesions, rash, and itching. HEMATOLOGY/LYMPHOLOGY Negative for prolonged bleeding, bruising easily, and swollen nodes. NEURO: Negative for numbness or tingling of hands/feet. No weakness. PHYSICAL EXAMINATION: BP 185/95 Pulse 76 Temp (Src) 98 (Temporal) Resp 16 Ht 5' 7.008 (1.70m) Wt 251 lb 12.8 oz (114.2kg) SpO2 99% BMI 39.43 kg/(m2). Wt 114.2 kg (251 lb 12.8 oz) BMI 39.43 kg/m2 Last 3 Encounter Wt Readings: Date: Wt: 02/02/2020 114.2 kg (251 lb 12.8 oz) 01/08/2020 113 kg (249 lb 3.2 oz) General appearance:ECOG PERFORMANCE STATUS: 0- Fully active, able to carry on all pre-disease performance w/o restriction. Patient in NAD. Skin: Skin color, texture, turgor normal. No rashes or lesions. Eyes: Anicteric sclera. Pupils are equally round and reactive to light. Extraocular movements are intact. Lymph Nodes: No cervical, supraclavicular, axillary or inguinal adenopathy. Oropharynx: Lips, mucosa, and tongue normal. Back: No pain to percussion. Negative SLR test Lungs clear to auscultation, No wheezing or rhonchi Heart: RRR without murmur, gallop, or rubs. Abdomen soft, non-tender. No masses, organomegaly Extremities: No deformities. No edema Neuro: Gait and speech normal. Reflexes normal and symmetric. Muscular strength intact. Sensation grossly intact. Rectal: Deferred : Deferred LABS: Glucose (mg/dL) Date Value 01/15/2020 165 Potassium (mmol/L) Date Value 01/15/2020 3.2 Sodium (mmol/L) Date Value 01/15/2020 145 Chloride (mmol/L) Date Value 01/15/2020 103 CO2 (mmol/L) Date Value 01/15/2020 25 Creatinine (mg/dL) Date Value 01/15/2020 0.78 BUN (mg/dL) Date Value 01/15/2020 8 Anion Gap (mmol/L) Date Value 01/15/2020 17 Calcium (mg/dL) Date Value 01/15/2020 8.8 Protein, Total (g/dL) Date Value 01/15/2020 7.1 Albumin (g/dL) Date Value 01/15/2020 4.2 Bilirubin, Total (mg/dL) Date Value 01/15/2020 0.4 Alkaline Phosphatase (U/L) Date Value 01/15/2020 95 AST (U/L) Date Value 01/15/2020 13 ALT (U/L) Date Value 01/15/2020 13 WBC Date Value Ref Range Status 01/15/2020 8.63 3.70 - 11.00 k/uL Final RBC Date Value Ref Range Status 01/15/2020 4.91 3.90 - 5.20 m/uL Final Hemoglobin Date Value Ref Range Status 01/15/2020 12.7 11.5 - 15.5 g/dL Final Hematocrit Date Value Ref Range Status 01/15/2020 41.4 36.0 - 46.0 % Final MCV Date Value Ref Range Status 01/15/2020 84.3 80.0 - 100.0 fL Final MCH Date Value Ref Range Status 01/15/2020 25.9 (L) 26.0 - 34.0 pG Final MCHC Date Value Ref Range Status 01/15/2020 30.7 30.5 - 36.0 g/dL Final RDW-CV Date Value Ref Range Status 01/15/2020 16.4 (H) 11.5 - 15.0 % Final Platelet Count Date Value Ref Range Status 01/15/2020 219 150 - 400 k/uL Final MPV Date Value Ref Range Status 01/15/2020 10.8 9.0 - 12.7 fL Final Abs Neut (ANC) Date Value Ref Range Status 01/15/2020 6.27 1.45 - 7.50 k/uL Final Lymph% Date Value Ref Range Status 01/15/2020 19.4 % Final Abs Lymph Date Value Ref Range Status 01/15/2020 1.67 1.00 - 4.00 k/uL Final Wilkes% Date Value Ref Range Status 01/15/2020 4.8 % Final Abs Wilkes Date Value Ref Range Status 01/15/2020 0.41 <0.87 k/uL Final Abs Eosin Date Value Ref Range Status 01/15/2020 0.25 <0.46 k/uL Final Baso% Date Value Ref Range Status 01/15/2020 0.3 % Final Abs Baso Date Value Ref Range Status 01/15/2020 0.03 <0.11 k/uL Final PATH: Imaging: Assessment and Plan: Heidi Joy is a 29 year old year old female here for follow up. 1. Heavy menstrual bleeding- continue follow-up with Dr. Angeles. No distinct evidence of a bleeding disorder although I stated that if there is ongoing suspicion one can consider repeating the von Willebrand's panel. Her platelet aggregation studies were normal. 2. Iron deficiency secondary to heavy menstrual blood loss. She is not getting adequate control and recovery from the oral iron and suggested proceeding with IV iron infusion. Check back parameters in 8 weeks. Thank you for the kind referral. If there are any questions and or concerns please do not hesitate to contact me at [phone]. Bridget Ulloa MD Hematology/Medical Oncology [facility] CC: MD Esther Cedeno MD Normal [facility] Platelet Aggr. Panelon 01-28 ADP 20 Max Aggreg 81 % Max Normal 71-94 [facility] Comment on above: Performed By: #### A GGPLP ####[facility] [place], [place] [phone] ADP Max Aggreg 86 % Max Normal 65-93 [facility] Comment on above: Performed By: #### A GGPLP ####[address] [phone] Arach Max Aggreg 75 % Max Normal 75-100 [facility] Comment on above: Performed By: #### A GGPLP ####[address] [phone] ATP Rel by ADP 1.4 nM High 0.1-1.3 [facility] Comment on above: Performed By: #### A GGPLP ####[address] [phone] ATP Rel by ADP 20 1.5 nM High 0.1-1.4 [facility] Comment on above: Performed By: #### A GGPLP ####[address] [phone] ATP Rel by Aracha 3.3 nM High 0.4-2.0 [facility] Comment on above: Performed By: #### A GGPLP ####[address] [phone] ATP Rel by Collagen 1.8 nM High 0.4-1.7 [facility] Comment on above: Performed By: #### A GGPLP ####[address] [phone] ATP Rel by EPI 100 1.6 nM Normal 0.2-1.7 [facility] Comment on above: Performed By: #### A GGPLP ####[address] [phone] ATP Rel by Epineph 1.5 nM Normal 0.2-1.6 [facility] Comment on above: Performed By: #### A GGPLP ####[address] [phone] Collagen Max Aggreg 85 % Max Normal 74-99 [facility] Comment on above: Performed By: #### A GGPLP ####[address] [phone] Epin 100 Max Aggreg 86 % Max Normal 70-99 [facility] Comment on above: Performed By: #### A GGPLP ####[place] [phone] Epin Max Aggreg 87 % Max Normal 70-97 [facility] Comment on above: Performed By: #### A GGPLP ####[address] [phone] Plt Aggreg Interp (NOTE) Normal [facility] Comment on above: Result Comment: Perf orming Pathologist: Mary Fenton Interpretation: Essentially normal - see comment below. A laboratory study of platelet aggregation and stimulated granule release was performed. The platelet count and platelet morphology is normal. The platelet aggregation study shows essentially normal aggregation to all agonists. There is an essentially normal stimulated dense granule release to ADP, collagen, arachidonic acid and epinephrine. The ristocetin induced platelet aggregation shows a normal dose response. Please correlate these laboratory results with clinical findings and medication history. Performed By: #### A GGPLP ####[place] [phone] Risto 1200 Max Agg 91 % Max Normal 76-100 [facility] Comment on above: Performed By: #### A GGPLP ####[address] [phone] Risto 1500 Max Agg 93 % Max Normal 76-100 [facility] Comment on above: Performed By: #### A GGPLP ####[address] [phone] Risto 600 Max Agg 5 % Max Normal 0-9 [facility] Comment on above: Performed By: #### A GGPLP ####[facility] [address] [place], [place] [phone] Risto 900 Max Agg 90 % Max Normal 50-100 [facility] Comment on above: Performed By: #### A GGPLP ####[facility] [address] [place], [place] [phone] CNPNon 01-27-2020 CNPN Telephone (HEMASA) -- HEIDI JOY ([id number]) 1990 F Date Time Provider Department 01/27/20 BRIDGET ULLOA) HEMASA During your visit today, we recorded the following information about you: Ekaterina Kelley RN, RN 01/27/2020 11:24 AM Signed ----- Message from Goyo Cordoba) JAVAN Vicnete sent at 01/26/2020 4:21 PM EDT ----- ----- Message ----- From: Bridget Galicia) Artemio Sent: 01/26/2020 3:32 PM EDT To: Goyo Cordoba) JAVAN Vicente Revieweing her labs she will need to go to [facility] for plt aggregation studies and make sure that she is not taking an NSAID's and or ASA please. Evelin Kelley RN, RN 01/27/2020 12:00 PM Signed Multiple calls made to patient. Home phone rings busy and man who answered cell number states that the number listed is not hers. Emergency contact is mother who has the same home number as patient. I have been unable to get through all morning. I wanted you to be aware. JAVAN Vazquez RN, RN 01/27/2020 3:44 PM Signed Attempted to contact patient's home number again. Rang busy. Ekaterina Kelley, JAVAN Dunaway, RN, BSN, OCN, RN 01/28/2020 1:29 PM Signed Please update patients phone number [phone] and remove other numbers. Reviewed with patient that she needs platelet aggregation done at [place]. Please call patient and get her set up for this test. Patient has visit with KK on 02/01 if test will not be done and resulted by then please move patients appointment out. Claude Dunaway RN, BSN, OCN Senait Chowdhury Patient Technology Architect 01/28/2020 2:07 PM Signed Patient was given numbers and times to the [place] facility and also felder [facility]. Number is updated in epic Allergies As of Date: 01/27/2020 (No Known Allergies) Date Reviewed: 01/08/2020 Reviewed by: Marilyn Smith - Fully Assessed Reason for Visit: Appointment [186] Prescriptions as of 01/27/2020 Sig: SERTRALINE 50 MG TABLET Take 50 mg by mouth once yaya* SERTRALINE 25 MG TABLET Take 25 mg by mouth once yaya* ALYACEN (28) 1 MG-35 MCG* Take 1 tablet by mouth once d* AMLODIPINE 10 MG TABLET Take 10 mg by mouth once yaya* TERAZOSIN 2 MG CAPSULE Take 2 mg by mouth daily at b* PROPRANOLOL ORAL Take 40 mg by mouth twice silvestre* MINOCYCLINE 100 MG CAPSULE Take 1 capsule by mouth twice* Problem List As Of Date 01/27/2020 Noted Resolved Hidradenitis suppurativa of right axilla [L73.2]10/27/2012 Comedone [L70.0] 10/27/2012 Encounter Status:Closed by DUSTIN DUNAWAY on 01/29/20 [facility] [place] 01-20-2020 CHRISTIANAN Telephone ([employer]) -- HEIDI JOY ([id number]) 1990 F Date Time Provider Department 01/20/20 BRIDGET ULLOA) SE[place] During your visit today, we recorded the following information about you: Sheila Latif RN, RN 01/20/2020 3:00 PM Signed ----- Message from Goyo Cordoba) JAVAN Vicente sent at 01/20/2020 1:50 PM EDT ----- ----- Message ----- From: Bridget Galicia) Artemio Sent: 01/20/2020 1:23 PM EDT To: Goyo Cordoba) JAVAN Vicente Please call her ad state the her VWF results are normal. Sheila Latif RN, RN 01/20/2020 3:00 PM Signed Called pt, no answer, not able to leave message, will continue to attempt to reach pt. Sheila Latif RN Allergies As of Date: 01/20/2020 (No Known Allergies) Date Reviewed: 01/08/2020 Reviewed by: Marilyn Smith - Fully Assessed Reason for Visit: Results [95] Prescriptions as of 01/20/2020 Sig: SERTRALINE 50 MG TABLET Take 50 mg by mouth once yaya* SERTRALINE 25 MG TABLET Take 25 mg by mouth once yaya* ALYACEN 1/35 (28) 1 MG-35 MCG* Take 1 tablet by mouth once d* AMLODIPINE 10 MG TABLET Take 10 mg by mouth once yaya* TERAZOSIN 2 MG CAPSULE Take 2 mg by mouth daily at b* PROPRANOLOL ORAL Take 40 mg by mouth twice silvestre* MINOCYCLINE 100 MG CAPSULE Take 1 capsule by mouth twice* Problem List As Of Date 01/20/2020 Noted Resolved Hidradenitis suppurativa of right axilla [L73.2]10/27/2012 Comedone [L70.0] 10/27/2012 Encounter Status:Closed by SHEILA LATIF RN on 01/21/20 Normal [facility] Comp Metabolic Panelon 01-14 Albumin [Mass/Vol] 4.2 g/dL Normal 3.9-4.9 [facility] Comment on above: Performed By: #### T T #### [place] [id number] [phone] ALP [Catalytic activity/Vol] 95 U/L Normal 34-123 [facility] Comment on above: Performed By: #### T T #### [facility] [employer] [address] [place], [place] [address] ALT [Catalytic activity/Vol] 13 U/L Normal 7-38 [facility] Comment on above: Performed By: #### T T #### [facility] [address] [place], [place] [address] Anion gap [Moles/Vol] 17 mmol/L Normal 9-18 [facility] Comment on above: Performed By: #### T T #### [place] [address] [place], [place] [address] AST [Catalytic activity/Vol] 13 U/L Normal 13-35 [facility] Comment on above: Performed By: #### T T #### [place] [address] [place], [place] [address] Bilirubin [Mass/Vol] 0.4 mg/dL Normal 0.2-1.3 [facility] Comment on above: Performed By: #### T T #### [place] [address] [place], [place] [address] Calcium [Mass/Vol] 8.8 mg/dL Normal 8.5-10.2 [facility] Comment on above: Performed By: #### T T #### [facility] [address] [place], [place] [address] Chloride [Moles/Vol] 103 mmol/L Normal 97-105 [facility] Comment on above: Performed By: #### T T #### [facility] [address] [place], [place] [address] CO2 [Moles/Vol] 25 mmol/L Normal 22-30 [facility] Comment on above: Performed By: #### T T #### [facility] [employer] [facility] [place] [phone] Creatinine [Mass/Vol] 0.78 mg/dL Normal 0.58-0.96 [facility] Comment on above: Performed By: #### T T #### [facility] [address] [place] [phone] eGFR- Amer. >60 Normal [facility] Comment on above: Performed By: #### T T #### [facility] [address] [place] [address] GFR/1.73 sq M predicted among non-blacks MDRD (S/P/Bld) [Vol rate/Area] mL/min/{1.73_m2} Normal [facility] Comment on above: Result Comment: eGFR (Estimated GFR) Units of measure: mL/min/1.73 meters squared eGFR is derived from the reexpressed MDRD Study equation using the following parameters: serum creatinine, age, gender and race. The creatinine assay has been calibrated to be traceable to IDMS. An eGFR <60 mL/min/1.73m2 for >3 months is consistent with chronic kidney disease. Refer to KDOQI guidelines for clinical interpretation. In patients with unstable renal function, e.g. those with acute kidney injury, the eGFR may not accurately reflect actual GFR. Performed By: #### T T #### [facility] [address] [place] [phone] Glucose [Mass/Vol] 165 mg/dL High 74-99 [facility] Comment on above: Result Comment: The [place] Diabetes Association (ADA) provides guidance for cutoff values for fasting glucose and random glucose. The ADA defines fasting as no caloric intake for at least 8 hours. Fasting plasma glucose results between 100 to 125 mg/dL indicate increased risk for diabetes (prediabetes). Fasting plasma glucose results greater than or equal to 126 mg/dL meet the criteria for diagnosis of diabetes. In the absence of unequivocal hyperglycemia, results should be confirmed by repeat testing. In a patient with classic symptoms of hyperglycemia or hyperglycemic crisis, random plasma glucose results greater than or equal to 200 mg/dL meet the criteria for diagnosis of diabetes. Reference: Standards of Medical Care in Diabetes 2016, [place] Diabetes Association. Diabetes Care. 2016.39(Suppl 1). Performed By: #### T T #### [facility] [address] [place], [place] [address] Potassium [Moles/Vol] 3.2 mmol/L Low 3.7-5.1 [facility] Comment on above: Performed By: #### T T #### [place] [address] [place], [place] [address] Protein [Mass/Vol] 7.1 g/dL Normal 6.3-8.0 [facility] Comment on above: Performed By: #### T T #### [place] [address] Sodium [Moles/Vol] 145 mmol/L High 136-144 [facility] Comment on above: Performed By: #### T T #### [place] [address] Urea nitrogen [Mass/Vol] 8 mg/dL Normal 7-21 [facility] Comment on above: Performed By: #### T T #### [place] [address] Ferritinon 01-15-2020 Ferritin [Mass/Vol] 53.1 ng/mL Normal 14.7-205.1 [facility] Comment on above: Performed By: #### T T #### [place] [phone] Fibrinogenon 01-15-2020 Fibrinogen 415 mg/dL High 200-400 [facility] Comment on above: Performed By: #### T T #### [address] [address] Iron and TIBCon 01-15-2020 Iron [Mass/Vol] 32 ug/dL Low 41-186 [facility] Comment on above: Performed By: #### T T #### [address], [place] [address] TIBC 363 ug/dL Normal 232-386 [facility] Comment on above: Performed By: #### T T #### [facility] [employer] [address] [place], [place] [address] Transferrin Saturatn 9 % Low 15-57 [facility] Comment on above: Performed By: #### T T #### [facility] [employer] [address] [place], [place] [address] Remote CBCDIF (for [facility] use o nly)on 01-15-2020 Abs Baso 0.03 k/uL Normal <0.11 [facility] Abs Wilkes 0.41 k/uL Normal <0.87 [facility] Abs Neut 6.27 k/uL Normal 1.45-7.50 [facility] Absolute nRBC <0.01 Normal <0.01 [facility] Basophils/100 WBC (Bld) 0.3 % Normal C [facility] DTYPE Auto Diff Normal [facility] Eosinophils (Bld) [#/Vol] 0.25 10*3/uL Normal <0.46 [facility] Eosinophils/100 WBC (Bld) 2.9 % Normal [facility] Erythrocyte distribution width (RBC) [Ratio] 16.4 % High 11.5-15.0 [facility] Hematocrit (Bld) [Volume fraction] 41.4 % Normal 36.0-46.0 [facility] Hemoglobin (Bld) [Mass/Vol] 12.7 g/dL Normal 11.5-15.5 [facility] Lymphocytes (Bld) [#/Vol] 1.67 10*3/uL Normal 1.00-4.00 [facility] Lymphocytes/100 WBC (Bld) 19.4 % Normal [facility] MCH (RBC) [Entitic mass] 25.9 pG Low 26.0-34.0 [facility] MCHC (RBC) [Mass/Vol] 30.7 g/dL Normal 30.5-36.0 [facility] MCV (RBC) [Entitic vol] 84.3 fL Normal 80.0-100.0 [facility] Monocytes/100 WBC (Bld) 4.8 % Normal [facility] Neutrophils/100 WBC (Bld) 72.6 % Normal [facility] NRBCs 0.0 /100 WBC Normal 0 [facility] Platelet mean volume (Bld) [Entitic vol] 10.8 fL Normal 9.0-12.7 [facility] Platelets (Bld) [#/Vol] 219 10*3/uL Normal 150-400 [facility] RBC (Bld) [#/Vol] 4.91 10*6/uL Normal 3.90-5.20 [facility] WBC (Bld) [#/Vol] 8.63 10*3/uL Normal 3.70-11.00 [facility] Reticulocyteon 01-15-2020 Abs Retic 0.080 M/uL Normal 0.0180-0.1 000 [facility] Comment on above: Performed By: #### T T #### [facility] [employer] [address] [place] [address] Retic% 1.7 % Normal 0.4-2.0 [facility] Comment on above: Performed By: #### T T #### [facility] [employer] [address] [place] [phone] Thrombin Timeon 01-15-2020 Thrombin Time 15.4 sec Normal <18.6 [facility] Comment on above: Performed By: #### T T #### [facility] [employer] [address] [place] [address] von Willebrand Diagon 2019 aPTT Coag (Bld) [Time] 28.2 s Normal 23.0-32.4 Cl [facility] Comment on above: Result Comment: Unfr actionated Heparin Therapeutic Ranges: Standard Heparin Nomogram: 53 to 78 seconds (anti-Xa level of 0.3 to 0.7 U/ml) Low Dose/ACS Nomogram: 49 to 67 seconds (anti-Xa level of 0.2 to 0.5 U/ml) Stroke Treatment Nomogram: 49 to 67 seconds (anti-Xa level of 0.2 to 0.5 U/ml) Note: The APTT therapeutic range has been determined for the current lot of laboratory APTT reagent in use throughout the [facility]. Performed By: #### V JOSHUAPN ####[address] [phone] CBA/VWF Ratio 0.7 Normal >0.5 [facility] Comment on above: Performed By: #### V JOSHUAPN ####[address] [phone] COL/ADP Cartridge 147 CT (sec) High <118 [facility] Comment on above: Result Comment: Resu lts are reported as Closure Time (CT) in seconds. Performed By: #### V JOSHUAPN ####[address] [phone] COL/EPI Cartridge 179 CT (sec) Normal <194 [facility] Comment on above: Result Comment: Resu lts are reported as Closure Time (CT) in seconds. Performed By: #### V JOSHUAPN ####[address] [phone] Collagen Binding-CBA 68 % Normal 41-161 [facility] Comment on above: Result Comment: This test was developed and its performance characteristics determined by [facility]'s Karson Alvarez [facility] [place] ( [facility]). It has not been cleared or approved by the FDA. [facility]3] is regulated under CLIA as qualified to perform high complexity testing. This test is used for clinical purposes. It should not be regarded as investigational or for research. Performed By: #### Shannan LEWISPN ####[address] [phone] Factor VIII:C Assay 135 % Normal 50-173 [facility] Comment on above: Performed By: #### Shannan LEWISPN ####[address] [phone] FVIII/VWF Ratio 1.4 Normal >0.4 [facility] Comment on above: Performed By: #### V WFPN ####[facility] [place], [place] [phone] INR Coag (Bld) [Relative time] 0.9 {INR} Normal 0.9-1.3 [facility] Comment on above: Result Comment: Trice min K Antagonist (VKA) Therapeutic Range: INR 2 to 3 (Target INR of 2.5) Note: For patients treated with VKA drugs, such as warfarin, the [place] College [employer] Chest Physicians 2012 Guideline recommends a therapeutic INR range of 2 to 3 (target INR of 2.5). This recommendation includes high-risk patients with antiphospholipid syndrome with previous arterial or venous thromboembolism, current-generation mechanical or bioprosthetic aortic heart valve replacement. Note: Patients with mechanical aortic valve replacement and additional risk factors for thromboembolic events (atrial fibrillation, previous thromboembolism, LV dysfunction, hypercoagulable conditions) or an older generation mechanical AVR (i.e., ball in-Cage) or any mechanical MVR should have a INR therapeutic range of 2.5 to 3.5 (target INR of 3). Stacytt GH, et al. Chest 2012, 141:7S-47S Benitez RA, et al. [facility] 2017, 70: 252-289 Performed By: #### V LISSETTE ####[facility] [place], [place] [phone] Interpretation(VW) (NOTE) Normal [facility] Comment on above: Result Comment: Perf orming Pathologist: Matthew Bryan MD, PhD Interpretation: Abnormal - see comment below. SIGNIFICANT FINDINGS:1. Abnormal platelet function screening test. Laboratory testing was performed to evaluate the presence of von Willebrand disease. Both the PT and APTT results are normal. PLATELET FUNCTION SCREEN: The closure time (platelet adhesion and aggregation) with the COL/EPI cartridge is normal and the closure time with the COL/ADP cartridge is abnormal. This pattern is unusual, but suggests an abnormality of platelet function, von Willebrand disease, or an anti-platelet drug effect. Further evaluation of platelet function with the platelet aggregation assay would be recommended, especially if the patient is not receiving aspirin or other medications that can affect platelet function. VON WILLEBRAND TESTING: The von Willebrand factor (VWF) antigen, VWF functional activity (ristocetin cofactor and collagen binding activity), and factor VIII results are normal and proportional. The ristocetin induced platelet aggregation shows a normal dose response. Assay of von Willebrand multimers was performed by an agarose gel electrophoresis followed by immunofixation with anti-von Willebrand factor antiserum. There is a normal multimer intensity with a normal distribution of multimer sizes. SUMMARY: There is no laboratory evidence for von Willebrand Disease at this time. Please correlate these laboratory results with clinical findings and medication history. Performed By: #### V WFPN ####[address] [phone] PT Sec 10.3 sec Normal 9.7-13.0 [facility] Comment on above: Performed By: #### V JOSHUAPN ####[address] [phone] Ristocetin Aggreg Normal dose response Normal [facility] Comment on above: Result Comment: Revi ewed by Mary Garcia M.D.,Ph.D ([id number]) Performed By: #### V WFPN ####[address] [phone] Ristocetin Co-Factor 61 % Normal 42-146 [facility] Comment on above: Performed By: #### V WFPN ####[address] [phone] Ristocetin/VWF Ratio 0.6 Normal >0.4 [facility] Comment on above: Performed By: #### V WFPN ####[address] [phone] von Willebrand Ag 98 % Normal 50-173 [facility] Comment on above: Performed By: #### V WFPN ####[address] [phone] von Willebrand Mult Assay of von Willebr and multimers was performed by an agarose gel electrophoresis followed by immunofixation with anti-von Willebrand factor antiserum. Normal [facility] Comment on above: Result Comment: Ther e is a normal multimer intensity with a normal distribution of multimer sizes. Reviewed by Mary Garcia M.D.,Ph.D ([id number]) This test was developed and its performance characteristics determined by [facility] [place] ([facility]3]). It has not been cleared or approved by the FDA. [facility]3] is regulated under CLIA as qualified to perform high complexity testing. This test is used for clinical purposes. It should not be regarded as investigational or for research. Performed By: #### V [facility] ####[facility] [place], [place] [phone] [facility] CNOVS Visit (SP) Office ([facility]) -- HEIDI JOY ([id number]) 1990 F Date Time Provider Department 01/08/20 11:15 AM BRIDGET ULLOA) HEMASA During your visit today, we recorded the following information about you: Temperature Pulse Respiration Blood pressure 97.7 degrees 75/minute 18/minute 191/101 Weight Height 113 kg 1.702 m Bridget Ulloa MD 01/08/2020 1:16 PM Signed PATIENT NAME: Heidi Joy CLINIC NO.: [id number] ATTENDING PHYSICIAN: Bridget Ulloa MD DATE OF SERVICE: January 08, 2020 This document has been created with the use of voice recognition technology. It may contain inaccuracies, misspellings, inaccurate syntax or inappropriate word context that escaped review. Dear Dr. Angeles thank you for referring Miss Heidi Joy for an opinion regarding management of her microcytosis and menorrhagia. CHIEF COMPLAINT: I bleed a lot HPI: Heidi Joy is a 29 year old year old female with past medical history significant for hypertension, anxiety, depression, glucose intolerance as well as a history of oligodendroglioma status post resection in 2019 at [facility] followed by neurosurgery. She did not receive any therapy and/or radiation. She has had heavy menstrual blood loss for the past year and has been on a number of different hormonal manipulations. In October 2019 she was noted to have a ferritin of 19 and received 3 weekly doses of Venofer. She continues to have ongoing blood loss. Her most recent hematologic parameters in November 2019 showed a hemoglobin of 10.9 MCV of 76.6. She states that her mother also had heavy menstrual blood loss. She has had surgeries in the past including a foot surgery as well as colonoscopy without any complications. She also has had a dental extraction in the past which was not complicated by any bleeding episodes. Denies any known family history of von Willebrand's disease. Current Outpatient Medications Medication Sig - sertraline (ZOLOFT) 50 mg tablet Take 50 mg by mouth once daily. - sertraline (ZOLOFT) 25 mg tablet Take 25 mg by mouth once daily. - Norethindrone-Eth Estradiol (ALYACEN , ,) 1-35 mg-mcg per tablet Take 1 tablet by mouth once daily. - amLODIPine (NORVASC) 10 mg tablet Take 10 mg by mouth once daily. - terazosin (HYTRIN) 2 mg capsule Take 2 mg by mouth daily at bedtime. - propranolol HCl (PROPRANOLOL ORAL) Take 40 mg by mouth twice daily. - minocycline 100 mg capsule Take 1 capsule by mouth twice daily. No current facility-administered medications for this visit. ALLERGIES No Known Allergies PAST MEDICAL HISTORY Diagnosis Date - Kidney stones - Malignant brain tumor (HCC) 08/[address] Lema - Microcytic anemia - Otalgia of right ear - PCOS (polycystic ovarian syndrome) - Plantar fasciitis No past surgical history on file. FAMILY HISTORY Problem Relation Age of Onset - Diabetes Mother - Diabetes Father - Heart disease Father - Hypertension Father - other (lung cancer) Paternal Grandmother Social History Tobacco Use - Smoking status: Never Smoker - Smokeless tobacco: Never Used Substance Use Topics - Alcohol use: Yes - Drug use: Never REVIEW OF SYSTEMS GENERAL: No weight loss, malaise or fevers. No night sweats. HEENT: Negative for headaches, No changes in hearing or vision, no nose bleeds or other nasal problems. RESPIRATORY: Negative for cough, wheezing and shortness of breath CARDIOVASCULAR: Negative for chest pain, leg swelling and palpitations GI: Negative for abdominal discomfort, blood in stools or black stools and change in bowel habits : Negative for dysuria, frequency and incontinence MUSCULOSKELETAL: Negative for joint pain or swelling, back pain, and muscle pain. SKIN: Negative for lesions, rash, and itching. HEMATOLOGY/LYMPHOLOGY Negative for prolonged bleeding, bruising easily, and swollen nodes. NEURO: Negative for numbness or tingling of hands/feet. No weakness. PHYSICAL EXAMINATION: BP 191/101 Pulse 75 Temp 36.5 ?C (97.7 ?F) (Temporal) Resp 18 Ht 170.2 cm (5' 7 ) Wt 113 kg (249 lb 3.2 oz) SpO2 100% BMI 39.03 kg/m? Wt 113 kg (249 lb 3.2 oz) BMI 39.03 kg/m2 Last 3 Encounter Wt Readings: Date: Wt: 01/08/2020 113 kg (249 lb 3.2 oz) General appearance:ECOG PERFORMANCE STATUS: 0- Fully active, able to carry on all pre-disease performance w/o restriction. Patient in NAD. Skin: Skin color, texture, turgor normal. No rashes or lesions. Eyes: Anicteric sclera. Pupils are equally round and reactive to light. Extraocular movements are intact. Breast: No palpable breast masses. No nipple change or discharge. Lymph Nodes: No cervical, supraclavicular, axillary or inguinal adenopathy. Oropharynx: Lips, mucosa, and tongue normal. Back: No pain to percussion. Negative SLR test Lungs clear to auscultation, No wheezing or rhonchi Heart: RRR without murmur, gallop, or rubs. Abdomen soft, non-tender. No masses, organomegaly Extremities: No deformities. No edema Neuro: Gait and speech normal. Reflexes normal and symmetric. Muscular strength intact. Sensation grossly intact. Rectal: Deferred : Deferred LABS: No results found for: GLUC, K, NA, CHLOR, CO2, CREAT, BUN, ANION, CA, TPROT, ALB, TBILI, ALKPHOS, AST, ALT No results found for: WBC, RBC, HB, HCT, MCV, MCH, MCHC, RDWCV, PLT, MPV, MPV, NEUT, ABSNEUT, LYMPHP, ABSLYMPH, MONOP, ABSMONO, EOSINP, ABSEOSIN, BASOP, ABSBASO PATH: IMAGING: ASSESSMENT AND PLAN: Heidi Joy is a 29 year old year old female past medical history significant for obesity, hypertension, heavy menstrual bleeding. She certainly had a history of iron deficiency secondary to blood loss and did have IV iron replacement in and around October 2019. With her ongoing bleeding certainly this will be a chronic problem. We'll need to recheck her iron parameters. As far as her heavy menstrual blood loss she is being worked up by gynecology. One also needs to rule out the possibility of Von Willebrand's disease. She is on hormonal therapy which may falsely elevate von Willebrand's level to some extent however we'll initiate a workup. Will check her coags, fibrinogen, thrombin time and one Willebrand's panel. This needs to be done at [facility] and we'll make arrangements for this to happen there. Follow-up on the CBC and iron studies as well. We'll also check a reticulocyte count We'll see patient back in 3 weeks to follow-up on the results. As far as her hypertension is concerned. She does have quite elevated blood pressure and I suggested referral to cardiology to rule out secondary causes of hypertension as well. Dear Dr. Angeles thank you for allowing me to participate in Mrs. Heidi Joy care, if there are any questions or concerns please do not hesitate to contact me at the number below. Bridget Ulloa M.D. Hematology/Medical Oncology [facility] [phone] CC: MD Esther Cedeno MD Referring Provider: SELF [200] Allergies As of Date: 01/08/2020 (No Known Allergies) Date Reviewed: 01/08/2020 Reviewed by: Marilyn Smith - Fully Assessed Reason for Visit: Anemia [6] Cmt: New patient consultation Primary Visit Diagnosis:Excessive bleeding in the premenopausal period [N92.4] Other Visit Diagnosis:Essential hypertension [I10] Order(s):CONSULT TO CARDIOLOGY [9004] Order #: [id number]: 1 FUTURE CBC + DIFF (FOR REMOTE [facility] USE) [SQRCBCDF] Order #: [id number] FUTURE COMP METABOLIC PANEL [SQCMP] Order #: [id number] FUTURE IRON + TIBC [SQIRON] Order #: [id number] FUTURE FERRITIN BLD [SQFERR] Order #: [id number] FUTURE RETIC COUNT [SQRETIC] Order #: [id number] FUTURE PROTHROMBIN TIME/PT [SQPT] Order #: [id number] FUTURE ACTIVATED PTT [SQPTT] Order #: [id number] FUTURE THROMBIN TIME [SQTT] Order #: [id number] FUTURE FIBRINOGEN [SQFIBCT] Order #: [id number] FUTURE VON WILLEBRAND DX PANEL [SQVWFPN] Order #: [id number] FUTURE VON WILLEBRAND MULT [SQVWFMUL] Order #: [id number] FUTURE Follow-up and Disposition History Recorded Prescriptions as of 01/08/2020 Sig: SERTRALINE 50 MG TABLET Take 50 mg by mouth once yaya* SERTRALINE 25 MG TABLET Take 25 mg by mouth once yaya* ALYACEN 1/35 (28) 1 MG-35 MCG* Take 1 tablet by mouth once d* AMLODIPINE 10 MG TABLET Take 10 mg by mouth once yaya* TERAZOSIN 2 MG CAPSULE Take 2 mg by mouth daily at b* PROPRANOLOL ORAL Take 40 mg by mouth twice silvestre* MINOCYCLINE 100 MG CAPSULE Take 1 capsule by mouth twice* Problem List As Of Date 01/08/2020 Noted Resolved Hidradenitis suppurativa of right axilla [L73.2]10/27/2012 Comedone [L70.0] 10/27/2012 Encounter Status:Closed by BRIDGET ULLOA MD on 01/08/20 [facility]ESS[facility] 01-08-2020 PROGRESS HNO ID: [id number] Author: Bridget Galicia) Artemio Service: ? Author Type: Physician Type: Progress Notes Filed: 01/08/2020 1:16 PM Note Text: PATIENT NAME: Heidi Joy [facility] NO.: [id number] ATTENDING PHYSICIAN: Bridget Ulloa MD DATE OF SERVICE: January 08, 2020 This document has been created with the use of voice recognition technology. It may contain inaccuracies, misspellings, inaccurate syntax or inappropriate word context that escaped review. Dear Dr. Angeles thank you for referring Miss Heidi Joy for an opinion regarding management of her microcytosis and menorrhagia. CHIEF COMPLAINT: I bleed a lot HPI: Heidi Joy is a 29 year old year old female with past medical history significant for hypertension, anxiety, depression, glucose intolerance as well as a history of oligodendroglioma status post resection in 2019 at [facility] followed by neurosurgery. She did not receive any therapy and/or radiation. She has had heavy menstrual blood loss for the past year and has been on a number of different hormonal manipulations. In October 2019 she was noted to have a ferritin of 19 and received 3 weekly doses of Venofer. She continues to have ongoing blood loss. Her most recent hematologic parameters in November 2019 showed a hemoglobin of 10.9 MCV of 76.6. She states that her mother also had heavy menstrual blood loss. She has had surgeries in the past including a foot surgery as well as colonoscopy without any complications. She also has had a dental extraction in the past which was not complicated by any bleeding episodes. Denies any known family history of von Willebrand's disease. Current Outpatient Medications Medication Sig - sertraline (ZOLOFT) 50 mg tablet Take 50 mg by mouth once daily. - sertraline (ZOLOFT) 25 mg tablet Take 25 mg by mouth once daily. - Norethindrone-Eth Estradiol (ALYACEN , ,) 1-35 mg-mcg per tablet Take 1 tablet by mouth once daily. - amLODIPine (NORVASC) 10 mg tablet Take 10 mg by mouth once daily. - terazosin (HYTRIN) 2 mg capsule Take 2 mg by mouth daily at bedtime. - propranolol HCl (PROPRANOLOL ORAL) Take 40 mg by mouth twice daily. - minocycline 100 mg capsule Take 1 capsule by mouth twice daily. No current facility-administered medications for this visit. ALLERGIES No Known Allergies PAST MEDICAL HISTORY Diagnosis Date - Kidney stones - Malignant brain tumor (HCC) 08/[address] Lema - Microcytic anemia - Otalgia of right ear - PCOS (polycystic ovarian syndrome) - Plantar fasciitis No past surgical history on file. FAMILY HISTORY Problem Relation Age of Onset - Diabetes Mother - Diabetes Father - Heart disease Father - Hypertension Father - other (lung cancer) Paternal Grandmother Social History Tobacco Use - Smoking status: Never Smoker - Smokeless tobacco: Never Used Substance Use Topics - Alcohol use: Yes - Drug use: Never REVIEW OF SYSTEMS GENERAL: No weight loss, malaise or fevers. No night sweats. HEENT: Negative for headaches, No changes in hearing or vision, no nose bleeds or other nasal problems. RESPIRATORY: Negative for cough, wheezing and shortness of breath CARDIOVASCULAR: Negative for chest pain, leg swelling and palpitations GI: Negative for abdominal discomfort, blood in stools or black stools and change in bowel habits : Negative for dysuria, frequency and incontinence MUSCULOSKELETAL: Negative for joint pain or swelling, back pain, and muscle pain. SKIN: Negative for lesions, rash, and itching. HEMATOLOGY/LYMPHOLOGY Negative for prolonged bleeding, bruising easily, and swollen nodes. NEURO: Negative for numbness or tingling of hands/feet. No weakness. PHYSICAL EXAMINATION: BP 191/101 Pulse 75 Temp 36.5 ?C (97.7 ?F) (Temporal) Resp 18 Ht 170.2 cm (5' 7 ) Wt 113 kg (249 lb 3.2 oz) SpO2 100% BMI 39.03 kg/m? Wt 113 kg (249 lb 3.2 oz) BMI 39.03 kg/m2 Last 3 Encounter Wt Readings: Date: Wt: 01/08/2020 113 kg (249 lb 3.2 oz) General appearance:ECOG PERFORMANCE STATUS: 0- Fully active, able to carry on all pre-disease performance w/o restriction. Patient in NAD. Skin: Skin color, texture, turgor normal. No rashes or lesions. Eyes: Anicteric sclera. Pupils are equally round and reactive to light. Extraocular movements are intact. Breast: No palpable breast masses. No nipple change or discharge. Lymph Nodes: No cervical, supraclavicular, axillary or inguinal adenopathy. Oropharynx: Lips, mucosa, and tongue normal. Back: No pain to percussion. Negative SLR test Lungs clear to auscultation, No wheezing or rhonchi Heart: RRR without murmur, gallop, or rubs. Abdomen soft, non-tender. No masses, organomegaly Extremities: No deformities. No edema Neuro: Gait and speech normal. Reflexes normal and symmetric. Muscular strength intact. Sensation grossly intact. Rectal: Deferred : Deferred LABS: No results found for: GLUC, K, NA, CHLOR, CO2, CREAT, BUN, ANION, CA, TPROT, ALB, TBILI, ALKPHOS, AST, ALT No results found for: WBC, RBC, HB, HCT, MCV, MCH, MCHC, RDWCV, PLT, MPV, MPV, NEUT, ABSNEUT, LYMPHP, ABSLYMPH, MONOP, ABSMONO, EOSINP, ABSEOSIN, BASOP, ABSBASO PATH: IMAGING: ASSESSMENT AND PLAN: Heidi Joy is a 29 year old year old female past medical history significant for obesity, hypertension, heavy menstrual bleeding. She certainly had a history of iron deficiency secondary to blood loss and did have IV iron replacement in and around October 2019. With her ongoing bleeding certainly this will be a chronic problem. We'll need to recheck her iron parameters. As far as her heavy menstrual blood loss she is being worked up by gynecology. One also needs to rule out the possibility of Von Willebrand's disease. She is on hormonal therapy which may falsely elevate von Willebrand's level to some extent however we'll initiate a workup. Will check her coags, fibrinogen, thrombin time and one Willebrand's panel. This needs to be done at [facility] and we'll make arrangements for this to happen there. Follow-up on the CBC and iron studies as well. We'll also check a reticulocyte count We'll see patient back in 3 weeks to follow-up on the results. As far as her hypertension is concerned. She does have quite elevated blood pressure and I suggested referral to cardiology to rule out secondary causes of hypertension as well. Dear Dr. Angeles thank you for allowing me to participate in Mrs. Heidi Joy care, if there are any questions or concerns please do not hesitate to contact me at the number below. Bridget Ulloa M.D. Hematology/Medical [facility] [phone] CC: MD Esther Cedeno MD [facility] MRI BRAIN W WO CONTRASTon MRI BRAIN W WO CONTRAST [facility] Department of Radiology [address] [place] [phone] Patient Name: HEIDI JOY : 1990 Sex: F Age: Race: White Pt. 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 follow up scan. 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 Post contrast imaging in sagittal 3D and axial 3D. CONTRAST: Contrast: DOTAREM, 20 milliliter, Intravenous COMPARISON: None. FINDINGS: Extra axial spaces: Age appropriate. Hemorrhage: None. Ventricular system: Within normal limits. Basal cisterns: Within normal limits and not effaced. Cerebral parenchyma: Postsurgical changes in the right frontal lobe with a small amount of surrounding T2 FLAIR hyperintensity. This is not significantly changed from prior exam. Similar degree of encephalomalacia in the right frontal lobe. On postcontrast imaging there is similar-appearing enhancement of the dura overlying the surgical site. No suspicious or abnormal postcontrast enhancement is seen in the region of the prior resection. There are no new foci of abnormal postcontrast enhancement. Midline shift: None.. Cerebellum: There is redemonstration of cerebellar tonsillar ectopia or prominent on the left and measures 1.6 cm similar to prior exam. Brainstem: Within normal limits. OTHER: Calvarium: Postsurgical changes to the calvarium in the right frontal temporal region unchanged Vascular system: Satisfactory flow voids within the anterior and posterior circulation. Visualized Paranasal sinuses: Within normal limits. Visualized Orbits: Within normal limits. Visualized upper cervical spine: Within normal limits. Sella and skull base: Within normal limits. IMPRESSION: 1. No post contrast enhancement to suggest residual or recurrent tumor. 2. Minimal thickening of the dura overlying the resection cavity with postcontrast enhancement. This is not changed since comparison exam and likely represents postsurgical change. 3. Redemonstration of postsurgical changes in the right frontal lobe with underlying encephalomalacia. There is corresponding surrounding T2 FLAIR hyperintensity. This is not significantly changed from comparison exam. 4. Similar-appearing cerebellar tonsillar ectopia which is more prominent on the left and measures 1.6 cm consistent with Chiari I malformation. Approved by:Dandy Boudreaux09/11/2019 2:47 PM. I, Jim Curiel,have reviewed the imagers and reports Electronically signed: Jim Curiel. 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 However, the narrative phrase printed from the coding software may appear abbreviated, or result in slightly different terminology. Coded By: Avery Swanson' Date Saved: 01/29/2018 03:42 pm Normal [facility] ED Clinical Summaryon 2017 ED Clinical Summary [facility] ? Urgent [id number] [place] [address] clinical SummaryPERSON INFORMATIONName: HEIDI JOY Age: 27 Years Sex: FEMALEDOB: [birth year] MRN: Acct#:Visit Reason: UC - Rash; UC - Rash; RASH/ BILAT LEGS Arrival: 01/23/18 10:43:00 Discharge: 01/23/18 11:18:00LOS: 000 00:35 Check In: 01/23/18 10:43:00 Checkout: 01/23/18 11:18:00Address:[address] [place] [id number]: Immanuel Kuhn INFORMATIONProvider Role Assigned UnassignedSpasic Carmelo ASHRAF ED PA 01/23/18 10:48:23Cristal Dunaway ED Nurse 01/23/18 10:53:41VITALS INFORMATIONVital Sign Triage LatestTemperature TympanicTemperature Temporal ArteryPulse Rate 79 bpm 79 bpmO2 Sat 97 % 97 %Respiratory Rate 16 br/min 16 br/minBlood Pressure 162 mmHg/98 mmHg 162 mmHg/98 mmHgMEDICAL INFORMATIONMedications Given:Allergy Information:No Known Medication AllergiesPHYSICIAN DOCUMENTATIONDISCHARGE INFORMATION:Discharge Disposition: HomeDischarge Location:PATIENT EDUCATION INFORMATIONInstructions: Poison Bloomsbury Dermatitis, Vibm-fr-HnnvDyfgfu-Up:With : Address: When:Immanuel Kuhn [address] [place] [address] Business (1)Comments:Begin on the prednisone 2 tablets daily for 5 days take with food to avoid gastric refluxBegin on the Claritin 1 tab daily for the next 2 weeks Follow-up with primary care provider in 3-5 days sooner if worse.DIAGNOSIS:urushiol induced contact dermatitisPatient Understands: Yes - Patient/family/caregiver verbalizes understanding of instructions givenComment: [facility] - Physician Patient: HONORIO JOY : 27 years Sex: FEMALE : [birth year]Associated Diagnoses: urushiol induced contact dermatitisAuthor: [place] InformationTime seen: Date & time 01/23/18 11:01:00.History source: Patient.Arrival mode: Private vehicle.History limitation: None.Additional information: Chief Complaint from Nursing Triage Note : Chief Bzvygtdsw26/21/18 10:45 EDT Chief Complaint 2-3 days possible poison kelly or other ? itchy rash .History of Present IllnessPatient is a 27-year-old female complains of rash to bilateral upper and lower extremities for the last 2 weeks. No shortness of breath or difficulty breathing no airway compromise. LMP 1 week ago. Patient is not diabetic. 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 Patient has no other complaints or concerns. Patient with no known medication allergies.Review of SystemsConstitutional symptoms: Negative except as documented in HPI.Skin symptoms: Rash, pruritus. Additional review of systems information: All other systems reviewed and otherwise negative.Health StatusAllergies:Allergic Reactions (Selected)No Known Medication Allergies.Past Medical/ Family/ Social HistoryMedical history:No active or resolved past medical history items have been selected or recorded..Surgical history:No active procedure history items have been selected or recorded..Family history:No family history items have been selected or recorded..Social history:Social & Psychosocial RkccslWehbvlw95/21/2018 Number used per day: 10.Problem list:Active Problems (1)Smoker.Physical Examination Vital ZrqyuPloileqyvjty05/21/18 10:45 EDT Height 170.18 cm Weight 122.47 kg Body Mass Index 42.29 kg/m2.General: Alert, no acute distress.Skin: Warm, dry, Patient with scant linear pruritic vesicles bilateral upper extremities and bilateral lower extremities.Head: Normocephalic.Eye: Normal conjunctiva.Cardiovascular : Regular rate and rhythm.Respiratory: Lungs are clear to auscultation, respirations are non-labored, breath sounds are equal, Symmetrical chest wall expansion.Back: Normal range of motion.Musculoskeletal: Normal ROM.Psychiatric: Cooperative, appropriate mood & affect.Medical Decision MakingPhysical exam findings consistent with urushiol induced contact dermatitis, lmp 1wk ago, patient is not diabetic. Patient treated with loratadine and prednisone. Home care instructions provided, pt stated understanding of home care instructions. Follow-up with primary care provider in 3-5 days sooner if worse.Impression and PlanDiagnosisurushiol induced contact dermatitis (Discharge, Medical)PlanPrescriptions: Launch prescriptionsPharmacy:robyn tadine 10 mg oral tablet (Prescribe): 10 mg, 1 tab(s), PO, Daily, for 14 day(s), 14 tab(s), 0 Refill(s)predniSONE 20 mg oral tablet (Prescribe): 40 mg, 2 tab(s), PO, Daily, for 5 day(s), Take with food to avoid gastric reflux or upset stomach, 10 tab(s), 0 Refill(s).Patient was given the following educational materials: Poison Bloomsbury Dermatitis, Zvsi-dr-Sfgr.Follow up with: Immanuel Kuhn Begin on the prednisone 2 tablets daily for 5 days take with food to avoid gastric refluxBegin on the Claritin 1 tab daily for the next 2 weeks Follow-up with primary care provider in 3-5 days sooner if worse..Counseled: Patient, Regarding diagnosis, Regarding diagnostic results, Regarding treatment plan, Regarding prescription, Patient indicated understanding of instructions.[Electronical ly Signed on: 01/23/2018 11:28 EDT] [place]elo [place][Verified on: 01/23/2018 11:28 EDT] [place] [facility] ED Patient Summaryon 018 ED Patient Summary [facility] ? Urgent [address] [place] [address] pATIENT DISCHARGE INSTRUCTIONSPatient InformationName: HEIDI JOY Age: 27 YearsDate of : [birth year]MRN: [id number] For Visit: UC - Rash; UC - Rash; RASH/ BILAT LEGSArrival Time: 01/23/18 10:43:00Phone: Primary Care Physician: Immanuel Kuhn Physician: Tonja LakerComment:Patient EducationWith: Address: When:Immanuel Kuhn [address] [place] [address]., [address] [place] [address] Business (1)Comments:Begin on the prednisone 2 tablets daily for 5 days take with food to avoid gastric refluxBegin on the Claritin 1 tab daily for the next 2 weeks Follow-up with primary care provider in 3-5 days sooner if worse.Poison Bloomsbury DermatitisPoison oak dermatitis is redness and soreness (inflammation) of the skin. It is caused by a chemical that is on the leaves of the poison oak plant. You may also have itching, a rash, and blisters. Symptoms often clear up in 1?2 weeks. You may get this condition by touching a poison oak plant. You can also get it by touching something that has the chemical on it. This may include animals or objects that have come in contact with the plant.Follow these instructions at home:General instructions? Take or apply wduq-esl-wadikti and prescription medicines only as told by your doctor.? If you touch poison oak, wash your skin with soap and cold water right away.? Use hydrocortisone creams or calamine lotion as needed to help with itching.? Take oatmeal baths as needed. Use colloidal oatmeal. You can get this at a pharmacy or grocery store. Follow the instructions on the package.? Do not scratch or rub your skin.? While you have the rash, wash your clothes right after you wear them.Prevention ? Know what poison oak looks like so you can avoid it. This plant has three leaves with flowering branches on a single stem. The leaves are fuzzy. They have a toothlike edge.? If you have touched poison oak, wash with soap and water right away. Be sure to wash under your fingernails.? When hiking or camping, wear long pants, a long-sleeved shirt, tall socks, and hiking boots. You can also use a lotion on your skin that helps to prevent contact with the chemical on the plant.? If you think that your clothes or outdoor gear came in contact with poison oak, rinse them off with a garden hose before you bring them inside your house.Contact a doctor if:? You have open sores in the rash area.? You have more redness, swelling, or pain in the affected area.? You have redness that spreads beyond the rash area.? You have fluid, blood, or pus coming from the affected area.? You have a fever.? You have a rash over a large area of your body.? You have a rash on your eyes, mouth, or genitals.? Your rash does not improve after a few days.Get help right away if:? Your face swells or your eyes swell shut.? You have trouble breathing.? You have trouble swallowing.This information is not intended to replace advice given to you by your health care provider. Make sure you discuss any questions you have with your health care provider.Document Released: 08/24/2011 Document Revised: 12/27/2016 Document Reviewed: 12/28/2015[employer]irmala Interactive Patient Education ? 2018 [employer]Medication Information:The exam and treatment you received today in the [facility] Emergency Department were for an urgent problem and are not intended as complete care. It is important for you to follow up with a doctor, nurse practitioner, or physician?s assistant director of residence life for ongoing care. If your symptoms become worse or you do not improve as expected and you are unable to reach your usual health care provider, you should return to the Emergency Department, we are available 24 hours a day.For those patients who have received Radiology results, the interpretation of your X-ray as given to you by our Emergency Department physician is only a preliminary report. The Radiologist will review your films and if there is a change in the diagnosis you will be notified by phone. Please make sure you have provided a working phone number so we can reach you if necessary.In the event that you had a lab culture while you were a patient in the Emergency Department, you will be notified by phone if there is a need to change your antibiotic. Please make sure you have provided a working phone number so we can reach you if necessary.[facility] has provided you with a complete list of medications post discharge. Please inform your license distributor/provider of your visit and for further instruction on these medications. Any specific questions regarding your chronic medications and dosages should be discussed with your primary care physician(s) and/or pharmacist. New MedicationsPrinted Prescriptionsloratadine (loratadine 10 mg oral tablet) 1 tab(s) Oral every day for 14 Days. Refills: 0.predniSONE (predniSONE 20 mg oral tablet) 2 tab(s) Oral every day for 5 Days. Take with food to avoid gastric reflux or upset stomach. Refills: 0.Visit InformationVisit Diagnosis:Diagnoses This Visit UC - Rash ([id number]) UC - Rash ([id number]) urushiol induced contact dermatitisIf you received any narcotics, sedation, or any other medication that causes drowsiness for the next 24 hours, unless otherwise directed:? Do not drive a car.? Do not operate machinery such as power tools, lawn mowers, drills, sewing machines, or stoves? Avoid alcoholic beverages and drugs for allergies, nerves, or sleep? Do not make important personal or business decisions or sign any legal documentsReason for Visit:2-3 days possible poison kelly or other ? itchy rashAllergies:Substance Reaction Symptoms Type CommentsNo Known Medication Allergies DrugVital Signs: Vitals and Measurements this Visit (last charted value for your 01/23/2018 visit) Vital Signs This Visit Temperature Oral: 37.2 DegC Peripheral Pulse Rate: 79 bpm Respiratory Rate: 16 br/min Systolic Blood Pressure: 162 mmHg Diastolic Blood Pressure: 98 mmHg SpO2: 97 % O2 Flow: 0 L/min Measurements This Visit Height: 170.18 cm Weight: 122.47 kg Body Mass Index: 42.29 kg/z0Jankkmqf List:Problem Onset CommentsSmokerMajor Tests and Procedures:The following procedures and tests were performed during your ED visit.LaboratoryRadiologyC ardiology Viruses or BacteriaWhat?s got you sick?Antibiotics only treat bacterial infections. Viral illnesses cannot be treated with antibiotics. When an antibiotic is not prescribed, ask your healthcare professional for tips on how to relieve symptoms and feel better. Usual CauseIllnessVirusesBacteri a Antibiotic NeededCold/Runny Nose NOBronchitis/Chest Cold (in otherwise healthy children and adults) NOWhooping Cough YesFlu NOStrep Throat YesSore Throat (except strep) NOFluid in the middle ear (otitis media with effusion) NOUrinary Tract Infection YesAntibiotics Aren?t Always the Answerwww.cdc.gov/getsmart GET SMART Know When Antibiotics [place] Department of Health and Human ServicesCenters for Disease Control and Prevention April 2014 [facility] [address] Urgent Care Record [facility] ? Urgent [address] [place] [address] pATIENT DISCHARGE INSTRUCTIONSPatient InformationName: HEIDI JOY Age: 27 YearsDate of : [birth year]MRN: [id number] For Visit: UC - Rash; UC - Rash; RASH/ BILAT LEGSArrival Time: 01/23/18 10:43:00Phone: Primary Care Physician: Immanuel Kuhn Physician: Spasic PA, AleksandarComment:Visit Diagnosis:Diagnoses This Visit UC - Rash ([id number]) UC - Rash ([id number]) urushiol induced contact dermatitisIf you received any narcotics, sedation, or any other medication that causes drowsiness for the next 24 hours, unless otherwise directed:? Do not drive a car.? Do not operate machinery such as power tools, lawn mowers, drills, sewing machines, or stoves? Avoid alcoholic beverages and drugs for allergies, nerves, or sleep? Do not make important personal or business decisions or sign any legal documentsWith: Address: When:[address] [place] [address] Business (1)Comments:Begin on the prednisone 2 tablets daily for 5 days take with food to avoid gastric refluxBegin on the Claritin 1 tab daily for the next 2 weeks Follow-up with primary care provider in 3-5 days sooner if worse.Medication Information:The exam and treatment you received today in the [facility] were for an urgent problem and are not intended as complete care. It is important for you to follow up with a doctor, nurse practitioner, or physician?s assistant director of residence life for ongoing care. If your symptoms become worse or you do not improve as expected and you are unable to reach your usual health care provider, you should return to the Emergency Department, we are available 24 hours a day.For those patients who have received Radiology results, the interpretation of your X-ray as given to you by our Urgent Care physician is only a preliminary report. The Radiologist will review your films and if there is a change in the diagnosis you will be notified by phone. Please make sure you have provided a working phone number so we can reach you if necessary.In the event that you had a lab culture while you were a patient in the Urgent Care, you will be notified by phone if there is a need to change your antibiotic. Please make sure you have provided a working phone number so we can reach you if necessary.[facility] has provided you with a complete list of medications post discharge. Please inform your license distributor/provider of your visit and for further instruction on these medications. Any specific questions regarding your chronic medications and dosages should be discussed with your primary care physician(s) and/or pharmacist. New MedicationsPrinted Prescriptionsloratadine (loratadine 10 mg oral tablet) 1 tab(s) Oral every day for 14 Days. Refills: 0.predniSONE (predniSONE 20 mg oral tablet) 2 tab(s) Oral every day for 5 Days. Take with food to avoid gastric reflux or upset stomach. Refills: 0.Visit InformationAllergies:Subst ance Reaction Symptoms Type CommentsNo Known Medication Allergies DrugVital Signs: Vitals and Measurements this Visit (last charted value for your 01/23/2018 visit) Measurements This Visit Height: 170.18 cm Weight: 122.47 kg Body Mass Index: 42.29 kg/x7Shgkjxdv List:Problem Onset CommentsSmoker Patient EducationPoison Bloomsbury DermatitisPoison oak dermatitis is redness and soreness (inflammation) of the skin. It is caused by a chemical that is on the leaves of the poison oak plant. You may also have itching, a rash, and blisters. Symptoms often clear up in 1?2 weeks. You may get this condition by touching a poison oak plant. You can also get it by touching something that has the chemical on it. This may include animals or objects that have come in contact with the plant.Follow these instructions at home:General instructions? Take or apply nvgk-tit-pjkfnjz and prescription medicines only as told by your doctor.? If you touch poison oak, wash your skin with soap and cold water right away.? Use hydrocortisone creams or calamine lotion as needed to help with itching.? Take oatmeal baths as needed. Use colloidal oatmeal. You can get this at a pharmacy or grocery store. Follow the instructions on the package.? Do not scratch or rub your skin.? While you have the rash, wash your clothes right after you wear them.Prevention ? Know what poison oak looks like so you can avoid it. This plant has three leaves with flowering branches on a single stem. The leaves are fuzzy. They have a toothlike edge.? If you have touched poison oak, wash with soap and water right away. Be sure to wash under your fingernails.? When hiking or camping, wear long pants, a long-sleeved shirt, tall socks, and hiking boots. You can also use a lotion on your skin that helps to prevent contact with the chemical on the plant.? If you think that your clothes or outdoor gear came in contact with poison oak, rinse them off with a garden hose before you bring them inside your house.Contact a doctor if:? You have open sores in the rash area.? You have more redness, swelling, or pain in the affected area.? You have redness that spreads beyond the rash area.? You have fluid, blood, or pus coming from the affected area.? You have a fever.? You have a rash over a large area of your body.? You have a rash on your eyes, mouth, or genitals.? Your rash does not improve after a few days.Get help right away if:? Your face swells or your eyes swell shut.? You have trouble breathing.? You have trouble swallowing.This information is not intended to replace advice given to you by your health care provider. Make sure you discuss any questions you have with your health care provider.Document Released: 08/24/2011 Document Revised: 12/27/2016 Document Reviewed: 12/28/2015[employer] Interactive Patient Education ? 2018 [email or web address]. Viruses or BacteriaWhat?s got you sick?Antibiotics only treat bacterial infections. Viral illnesses cannot be treated with antibiotics. When an antibiotic is not prescribed, ask your healthcare professional for tips on how to relieve symptoms and feel better. Usual CauseIllnessVirusesBacteri a Antibiotic NeededCold/Runny Nose NOBronchitis/Chest Cold (in otherwise healthy children and adults) NOWhooping Cough YesFlu NOStrep Throat YesSore Throat (except strep) NOFluid in the middle ear (otitis media with effusion) NOUrinary Tract Infection YesAntibiotics Aren?t Always the Answerwww.cdc.gov/getsmart GET SMART Know When Antibiotics [place] Department of Health and Human ServicesCenters for Disease Control and Prevention April 2014 [facility] Vital Signs Date Time Vital Sign Value Performing Clinician Jill rudd 06-06-2022 16:17-0400 Diastolic blood pressure 89 mm[Hg] Immanuel Kuhn Work Phone: [facility] [address] DO Work Phone: 06-06-2022 16:17-0400 Systolic blood pressure 138 mm[Hg] Immanuel Kuhn Work Phone: [facility] [address] DO Work Phone: 06-06-2022 15:45-0400 Body height 170.18 cm Immanuel Kuhn Work Phone: [facility] [address] DO Work Phone: 06-06-2022 15:45-0400 Body mass index (BMI) [Ratio] 47.77 kg/m2 Immanuel Kuhn Work Phone: [facility] [address] DO Work Phone: 06-06-2022 15:45-0400 Body surface area Derived from formula 2.42 m2 Immanuel Kuhn Work Phone: [facility] [address] DO Work Phone: 06-06-2022 15:45-0400 Body weight 138.35 kg Immanuel Kuhn Work Phone: [facility] [address] DO Work Phone: 06-06-2022 15:45-0400 Diastolic blood pressure 102 mm[Hg] Immanuel Kuhn Work Phone: [facility] [address] DO Work Phone: 06-06-2022 15:45-0400 Heart rate 71 /min Immanuel Kuhn Work Phone: [facility] [address] DO Work Phone: 06-06-2022 15:45-0400 Systolic blood pressure 160 mm[Hg] Immanuel Kuhn Work Phone: [facility] [address] DO Work Phone: Encounters Encounter Date Encounter Type Care Provider Facility Start: 08-15-2023 End: 08-15-2023 ambulatory MANASA DUNAWAY Not Available Start: 08-14-2023 End: 08-14-2023 ambulatory SHEILA LOUIS Not Available Start: 08-07-2023 End: 08-07-2023 ambulatory ТАТЬЯНА RODRIGUEZ Not Available Start: 08-02-2023 End: 08-03-2023 ambulatory JUAN BARON Not Available Start: 07-30-2023 End: 07-31-2023 ambulatory JUAN BARON Not Available Start: 07-24-2023 End: 07-24-2023 ambulatory JHONY GARCIA Not Available Start: 07-22-2023 End: 07-22-2023 ambulatory JUAN BARON Not Available Start: 07-18-2023 End: 07-18-2023 ambulatory ALEX NAIK Not Available Start: 07-03-2023 End: 07-04-2023 ambulatory IMMANUEL KUHN Not Available Start: 06-26-2023 End: 06-26-2023 ambulatory SHEILA LOUIS Not Available Start: 03-18-[address] Della Kim Facility: Start: 12-13-2022 [facility] Start: 12-07-2022 End: 12-08-[address] IMMANUEL KUHN Facility:[facility] Start: 12-07-2022 End: 12-08-2022 Encounter for preprocedural laboratory examination DR IMMANUEL KUHN Facility:[facility] Start: 11-05-2022 ambulatory RAVINDRA LEMA [facility] Start: 10-23-2022 End: 10-24-2022 ambulatory ZAKIA BENSON Facility:[facility] Start: 10-22-2022 End: 10-23-2022 ambulatory RAVINDRA LEMA [facility] Start: 09-13-2022 End: 09-13-2022 ambulatory Manasa Rhodes Facility:[facility] Start: 09-13-2022 Encounter for other preprocedural examination Manasa Rhodes [facility] Start: 09-13-2022 End: 09-13-2022 ambulatory DO Immanuel Kuhn Work Phone: [facility] Work Phone: Start: 09-13-2022 End: 09-13-2022 Patient encounter procedure DO Immanuel Kuhn Work Phone: [facility] [place] Work Phone: Start: 09-10-2022 End: 09-10-2022 ambulatory RAVINDRA LEMA [facility] Start: 09-07-2022 End: 09-08-[address] TE DARNELL . Facility:[facility] Start: 09-07-2022 End: 09-07-[address] TE DARNELL . Facility:[facility] Start: 09-07-2022 End: 09-07-2022 ambulatory Immanuel Kuhn Facility:[facility] Start: 09-07-2022 End: 09-07-2022 ambulatory DO Immanuel Mcgrather Work Phone: [facility] Work Phone: Start: 09-07-2022 End: 09-07-2022 Patient encounter procedure DO Immanuel Kuhn Work Phone: [facility] Work Phone: Start: 08-07-2022 Rx Renewal Immanuel Kuhn Work Phone: [facility] [address] DO Work Phone: Start: 06-06-2022 Office outpatient vi sit 25 minutes Immanuel Kuhn Work Phone: [facility] [address] DO Work Phone: Start: 06-06-[address] Della Kim Facility:[id number] Start: 01-04-2022 End: 01-05-[address] ESTHER ANGELES Facility:[facility] Start: 01-23-2018 End: 01-25-2018 Ambulatory [facility] Facility:[facility] Patient encounter status Immanuel Kuhn Work Phone: [facility] [address] DO Work Phone: Plan of Treatment Date Care Activity Detail Author Start: 03-14-2023 FUV, Provider: Della Kim, Status: Pen, Time: 1:30 PM FUV, Provider: Della Kim, Status: Pen, Time: 1:30 PM -[facility] [facility] DO Work Phone: Payers Date Payer Category Payer Self-pay [id number] 1990 Unknown [id number] 1991 Unknown [id number] [id number] 1991 Unknown [id number] 1991 Unknown [id number] [id number] 1991 Unknown [id number] [id number] 1991 Unknown [id number] [id number] 1991 Unknown [id number] [id number] 1991 Unknown [id number] [id number] 1991 Unknown [id number] [id number] 1991 Unknown [id number] [id number] 1991 Unknown [id number] [id number] 1991 Unknown [id number] [id number] 1991 Unknown [id number] 1991 Unknown [id number] 1991 Unknown [id number] 1991 Unknown [id number] 1991 Unknown [id number] 1958 Medicaid [id number] Unknown [facility] Unknown O [id number] Unknown [id number] Unknown [id number] Social History Date Type Detail Facility No illicit drug use No illicit drug use [place] [id number] DO Work Phone: Comment on above: quit 2021; Start: 11-09-2019 Tobacco smoking stat [facility] Smoker (finding) [facility] Start: 1990 Sex Assigned At Female [facility] Progress note 11-05-2022 Note Date & Type Note Facility 11-05-2022 Note In person visit Chief complaint: follow up for prior right frontal glioma LAC DU FLAMBEAU: 32 y/o woman - she had prior right frontal craniotomy for resection of tumor. She has done well. She has had some headaches. She is not having seizures. ROS: As above Past Medical History: Diagnosis Date Bilateral plantar fasciitis Hypertension Past Surgical History: Procedure Laterality Date CRANIOTOMY 08/19/2018 - Dr. Lema, oligodendroglioma resection Current Outpatient Medications on File Prior to Visit Medication Sig Dispense Refill amLODIPine (Norvasc) 10 mg tablet in the morning. biotin 1 mg capsule Take by mouth in the morning. carvedilol (Coreg) 25 mg tablet Take 50 mg by mouth in the morning and 50 mg in the evening. gabapentin (Neurontin) 400 mg capsule TAKE 1 CAPSULE BY MOUTH TWICE A DAY FOR 30 DAYS hydrALAZINE (Apresoline) 100 mg tablet Take 100 mg by mouth with breakfast and with evening meal. lamoTRIgine (LaMICtal) 150 mg tablet TAKE 2 TABLETS BY MOUTH ONCE DAILY FOR 30 DAYS Latuda 40 mg tablet TAKE 1 TABLET BY MOUTH IN THE EVENING WITH FOOD omeprazole (PriLOSEC) [address] capsule Take by mouth in the morning. sertraline (Zoloft) 50 mg tablet in the morning. multivitamin capsule 1 (one) time each day at the same time. propranolol (Inderal) 40 mg tablet Take 40 mg by mouth in the morning and 40 mg in the evening. No current facility-administered medications on file prior to visit. No Known Allergies Exam; BP 165/90 (BP Location: Right wrist, Patient Position: Sitting) Pulse 70 Wt (!) 142 kg (313 lb) LMP (LMP Unknown) SpO2 100% BMI 49.02 kg/m??? 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 Her new imaging looks good - there is no evidence of recurrent tumor. KPS is 100. She should continue to get repeat imaging about every 2-5 years. I am happy to see her back at any time sooner if needed. I talked with her about the expected natural history of glioma/oligodendroglioma and the need for further follow up imaging going forward. I am happy to see her back at any time. For now plan for follow up in about 2-3 years with repeat MRI brain w/wout contrast. Ravindra Lema MD [facility] Progress note 09-10-2022 Note Date & Type Note Facility 09-10-2022 Note In person visit Chief complaint: known olidodendroglioma LAC [place]: 32 y/o Left handed - she does not work. 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 She had migraines and high blood pressure prior to her tumor. She had surgery in 2019 - right frontal - for resection of the lesion - pathology was oligodendroglioma. She did not have radiation or chemotherapy post-op. Her last imaging was about 2-3 years ago. She is having some headaches again. She does have headaches anyway. Also feels somewhat light headed - not sure if that could be from her blood sugar or potassium (she is diabetic - says her sugar is well controlled). ROS: No seizures No seizures before either + headache - seems like it is in the middle - anteriorly No weakness No sensory change Past Medical History: Diagnosis Date Bilateral plantar fasciitis Hypertension oligodendroglioma Past Surgical History: Procedure Laterality Date CRANIOTOMY 08/19/2018 - Dr. Lema, oligodendroglioma resection Current Outpatient Medications on File Prior to Visit Medication Sig Dispense Refill amLODIPine (Norvasc) 10 mg tablet in the morning. carvedilol (Coreg) 25 mg tablet Take 50 mg by mouth in the morning and 50 mg in the evening. biotin 1 mg capsule Take by mouth in the morning. gabapentin (Neurontin) 400 mg capsule TAKE 1 CAPSULE BY MOUTH TWICE A DAY FOR 30 DAYS hydrALAZINE (Apresoline) 100 mg tablet Take 100 mg by mouth with breakfast and with evening meal. lamoTRIgine (LaMICtal) 150 mg tablet TAKE 2 TABLETS BY MOUTH ONCE DAILY FOR 30 DAYS Latuda 40 mg tablet TAKE 1 TABLET BY MOUTH IN THE EVENING WITH FOOD omeprazole (PriLOSEC) [address] capsule Take by mouth in the morning. propranolol (Inderal) 40 mg tablet Take 40 mg by mouth in the morning and 40 mg in the evening. sertraline (Zoloft) 50 mg tablet in the morning. No current facility-administered medications on file prior to visit. No Known Allergies Exam; BP 173/89 (BP Location: Left arm, Patient Position: Sitting, BP Cuff Size: Adult) Pulse 75 Temp 36.5 ???C (97.7 ???F) Ht 1.702 m (5' 7 ) SpO2 96% BMI 38.37 kg/m??? Age appropriate no family present NC/AT Well developed, well nourished Mood/affect normal Awake, alert, oriented CN intact Speech intact Cognition intact Motor: intact Sensory: intact to LT throughout Ambulatory Station intact Coordination intact Reflexes: - intact KPS 100 Review of films; I personally reviewed her older films She has not had repeat MRI I will order her new brain MRI w/wout contrast A/P: 32 y/o woman with known right frontal oligodendroglioma - had surgery about 2019 - most recent imaging was about 2020. She has headaches but has history of migraines as well has her tumor related headaches. No seizures. I will order her new MRI for surviellance - which is indicated because primary brain tumors are prone to recurrence over time and sometimes transformation into higher grade lesions. MRI brain w/wout contrast. FU with me after the MRI is completed. Ravindra Lema MD [facility] Chief complaint Narrative - Reported Note Date & Type Note Facility Chief complaint Narrative - Reported HEIDI JOY is being seen for a consultation for. POC Dr. Benson, [facility] Bariatrics- Bariatric sx [facility] [address] DO Work Phone: Evaluation note Note Date & Type Note Facility Evaluation note No assessment information availa [facility] Work Phone: History of Present illness Narrative Note Date & Type Note Facility History of Present illness Narrative Patient is here for evaluation for preoperative risk assessment. She is a 31-year-old with previous history of resection of malignant brain tumor, morbid obesity and hypertension. She is in the process of being evaluated for bariatric surgery. Patient is otherwise in good physical condition. She denies any complaint of chest pain, palpitation, lightheadedness, dizziness or syncope. There is no previous history of coronary artery disease or valvular heart disease. There is no history of arrhythmia or premature sudden cardiac in the familyAssessment1. Hypertension appears to be controlled. She report her recent CT scan suggest of possible adrenal mass. She reports she was seen by endocrinology but apparently no work-up was done according to her2. Obesity with recent significant weight gain3. History of malignant brain tumor status post resection detail is lacking4. History of polycystic ovary disease with heavy menses5. Iron deficiency anemia. Patient was seen in the past by endocrinology for concern about adrenal abnormalitiesPlan1. Preoperative risk assessment for bariatric surgery. Patient is functional class I with no cardiac symptoms with normal cardiovascular examination abnormal EKG. Based on ACC/AHA guidelines patient can proceed to surgery without any delay or testing2. I counseled the patient at great length regarding nonpharmacologic approach for treatment of hypertension including diet, exercise, salt restriction and weight loss3 . Continue present antihypertensive medication 9 4. Follow-up in 9 months -[facility] D[facility] DO Work Phone: Summary Purpose Family History No Family History Records FoundNo Family History Records FoundNo Family History Records FoundNo Family History Records FoundNo Family History Records FoundNo Family History Records FoundNo Family History Records FoundNo Family History Records FoundNo Family History Records FoundNo Family History Records FoundNo Family History Records Found Advance Directives No Advanced Directives Records Found Advance Directive Response Recorded Date/ Time Advance Directives No November 08 1:58pm Chief Complaint and Reason for Visit Chief Complaint e87.6 Chief Complaint e87.6 M72.2 Z01.818 Additional Source Comments INFORMATION SOURCE (unrecogn ized section and content) DATE CREATED AUTHOR 01/29/2018 [facility] DATE CREATED AUTHOR AUTHOR'S ORGANIZ ATION 02/25/2020 [facility] DATE CREATED AUTHOR AUTHOR'S ORGANIZ ATION 03/21/2020 [facility] DATE CREATED AUTHOR AUTHOR'S ORGANIZ ATION 09/12/2021 [facility] DATE CREATED AUTHOR AUTHOR'S ORGANIZ ATION 10/06/2021 [facility] DATE CREATED AUTHOR AUTHOR'S ORGANIZ ATION 06/07/2022 [employer] DATE CREATED AUTHOR AUTHOR'S ORGANIZ ATION 09/19/2022 [facility] DATE CREATED AUTHOR AUTHOR'S ORGANIZ ATION 11/19/2022 [facility] DATE CREATED AUTHOR AUTHOR'S ORGANIZ ATION 12/14/2022 [facility] DATE CREATED AUTHOR AUTHOR'S ORGANIZ ATION 03/19/2023 [facility] DATE CREATED AUTHOR AUTHOR'S ORGANIZ ATION 08/17/2023 [facility] d[facility] Specialists EPIC Care Teams (unrecognized sec tion and content) Team Status: Inactive Member Role Status Dates Immanuel Kuhn DO Primary Care Provider Active NETTIE Kramer Attending Provider Active Team Status: Active Member Role Status Dates Immanuel Kuhn DO Primary Care Provider Active Team Status: Inactive Member Role Status Dates Immanuel Kuhn DO Primary Care Provider Active Manasa Meagan , DPM Attending Provider Active Goals (unrecognized section and content) Goals may be documented in a n alternate sectionGoals may be documented in an alternate section FOR RECORDS PERTAINING TO PATIENTS WHO ARE OR HAVE BEEN ENROLLED IN A CHEMICAL DEPENDENCY/SUBSTANCEABUSE PROGRAM, SOME INFORMATION MAY BE OMITTED. This clinical summary was aggregated from multiple sources. Caution should be exercised in using it in the provision of clinical care. This summary normalizes information from multiple sources, and as a consequence, information in this document may materially change the coding, format and clinical context of patient data. In addition, data may be omitted in some cases. CLINICAL DECISIONS SHOULD BE BASED ON THE PRIMARY CLINICAL RECORDS. [facility] [employer] [facility]. provides no warranty or guarantee of the accuracy or completeness of information in this document.
[2023-08-20 10:29] LABS: Basophils Absolute Auto 0.1 10^3/uL (0.0-0.1); Basophils Percent Auto 0.6 % (0.2-2.0); Eosinophils Absolute Auto 0.2 10^3/uL (0.0-0.7); Eosinophils Percent Auto 2.4 % (0.9-7.0); Hematocrit 43.1 % (36.0-48.0); Hemoglobin 14.7 g/dL (12.0-16.0); Immature Granulocytes Abs Auto 0.02 10^3/uL (0.00-0.03); Immature Granulocytes Pct Auto 0.2 % (0.0-0.5); Lymphocytes Absolute Auto 2.2 10^3/uL (1.2-3.8); Lymphocytes Percent Auto 24.9 % (20.5-60.0); Mean Corpuscular HGB Conc 34.1 g/dL (29.9-35.2); Mean Corpuscular Hemoglobin 29.8 pg (26.7-34.0); Mean Corpuscular Volume 87.4 fL (81.0-99.0); Mean Platelet Volume 11.9 fL (9.5-13.5); Monocytes Absolute Auto 0.5 10^3/uL (0.3-0.8); Monocytes Percent Auto 6.2 % (1.7-12.0); Neutrophils Absolute Auto 5.7 10^3/uL (1.4-6.5); Neutrophils Percent Auto 65.7 % (43.0-75.0); Platelet Count 205 10^3/uL (150-450); Red Blood Count 4.93 10^6/uL (4.20-5.40); Red Cell Distribution Width 14.6 % (11.0-15.0); White Blood Count 8.7 10^3/uL (4.0-11.0)
[2023-08-20 11:38] LABS: Alanine Aminotransferase 38 U/L (14-59); Albumin Level 3.7 g/dL (3.4-5.0); Alkaline Phosphatase 128 U/L (46-116); Anion Gap 12.4; Aspartate Amino Transferase 29 U/L (15-37); BUN Creatinine Ratio 19.2; Bilirubin Total 0.8 mg/dL (0.2-1.0); Calcium 8.8 mg/dL (8.5-10.1); Carbon Dioxide 30.6 mmol/L (21.0-32.0); Chloride 106 mmol/L (98-107); Estimated GFR (African America >60 (>=60); Estimated GFR (Non-African Ame >60 (>=60); Globulin 3.7 g/dL; Glucose 84 mg/dL (74-106); Sodium 147 mmol/L (136-145); Total Protein 7.4 g/dL (6.4-8.2)
== END 2023-08-20 09:55 | disposition home or self-care (01) ==
LOC: LAB 09:54
PROVIDERS: PCP Family Medicine; Visit Provider Family Medicine
DX: E61.1 Iron deficiency (principal); K90.9 Intestinal malabsorption, unspecified
CPT/HCPCS: 36415; 80053; 82306; 82607; 85025

== ENCOUNTER 2023-08-23 11:16 | Outpatient (OUT) | payer OTHER, SELFPAY ==
--- OUTSIDE RECORDS SUMMARY | 2023-08-23 11:18 | XMS_ITS | CCD ---
Author Name Unknown Address [address] [place] [address] Organization [facility] Care Team Providers Care Quality Assurance Tester Name Role Phone Spasic, Carmelo Unavailable Unavailable Roryc, Carmelo Unavailable Unavailable IMMANUEL KIRBY Unavailable Unavailable Immanuel Kirby Unavailable Unavailable Unavailable DO Immanuel Kirby Primary Care Provider NETTIE Prakash Attending Provider REJI Rhodes Attending Provider [phone] Manasa Rhodes Admitting Unavailable Immanuel Kirby Primary Care Unavailable Manasa Rhodes Attending Unavailable Immanuel Kirby Primary Care Unavailable Tiarra Prakash Attending Unavailable [...] Primary Care Unavailable Judy, Dr. Hull Attending Nadia Kirby, Dr. Immanuel Toure Primary Care [facility] darryn Kim, [facility] Dr[facility] Immanuel Toure Primary Care Unavail darryn Zara Ralph Unavailable IMMANUEL KIRBY Primary Care Unavailable VIKKI BALDERRAMA Attending Unavailab JUAN Kohler Attending Unavailable GAGANDEEP DUNAWAYANDRA H Referring Unavailable ТАТЬЯНА RODRIGUEZ Attending Unavailable IMMANUEL KIRBY Referring Unavailable SHEILA LOUIS Attending Unavailable GAGANDEEP DUNAWAYANDRA H Attending Unavailable TRENTON, MANASA H Referring Unavailable SHEILA LOUIS Attending Unavailable IMMANUEL KIRBY Referring Unavailable ALEX NAIK Attending Unavailable TRENTON, MANASA H Referring Unavailable JUAN BARON Attending Unavailable TRENTON, MANASA H Referring Unavailable JHONY GARCIA Attending Unavailable TRENTON, MANASA H Referring Unavailable JUAN BARON Attending Unavailable TRENTON, MANASA H Referring Unavailable Allergies Allergy Classification Reported Allergen(s) Allergy Type Date of Onset Reaction(s) Facility (1 source) No Known Medication Allergies; Translations: [No Known Medication Allergies] Propensity to adverse reactions to drug (disorder) [facility] Repository Medications Current Medications Medication Drug Class(es) Dates Sig (Normalized) Sig (Original) benzoyl peroxide 50 mg/ml medicated liquid soap (1 source) Benzoyl Peroxide Wash 5 % 1 application Externally Once a day Active brexpiprazole 1 mg oral tablet (1 source) Atypical Antipsychotic take 1 tablet by mouth every twenty-four hours Rexulti 1 MG 1 tablet Orally Once a day Active busPIRone hydrochloride 10 mg oral tablet (1 source) take 1 tablet by mouth every twelve hours busPIRone HCl 10 MG 1 tablet Orally Twice a day Active Calcium Carbonate+Vitamin D (1 source) Calcium Carbonate+Vitamin D Active loperamide hydrochloride 2 mg oral tablet (2 sources) Opioid Agonist Start: 05-03-2017 Loperamide (Imodium A-D) 2 mg tablet Active 2 MG PO Q4H May 02, 2017 11:00pm after each loose stool until symptoms controlled; do not exceed 16 mg total dose in 24 hrs lurasidone hydrochloride 60 mg oral tablet (1 source) Atypical Antipsychotic take 1 tablet by mouth every twenty-four hours Lurasidone HCl 60 MG 1 tablet in the evening with food Orally Once a day Active magnesium oxide 400 mg oral tablet (1 source) take 1 tablet by mouth every twenty-four hours Magnesium Oxide 400 MG 1 TABLET Orally Once a day Active Multivitamin preparation (1 source) take 1 tablet by mouth once daily Multi Vitamin - 1 tablet Orally Once a day Active promethazine hydrochloride 25 mg oral tablet (2 sources) Phenothiazine Start: 05-03-2017 take 25 mg by mouth every six hours Promethazine Active 25 MG PO Q6H May 02, 2017 11:00pm SUMAtriptan 100 mg oral tablet (1 source) Serotonin-1b and Serotonin-1d Receptor Agonist take 1 tablet by mouth every two hours as needed, then take 1 tablet by mouth twice daily as needed SUMAtriptan Succinate 100 MG 1 tablet at least 2 hours between doses as needed Orally Twice a day Active zolpidem tartrate 10 mg oral tablet (1 source) gamma-Aminobutyric Acid-ergic Agonist take 1 tablet by mouth every twenty-four hours Ambien 10 MG 1 tablet at bedtime as needed Orally Once a day Active Completed/Discontinued Medications Medication Drug Class(es) Dates Sig (Normalized) Sig (Original) amLODIPine 10 mg oral tablet (3 sources) Dihydropyridine Calcium Channel Clover Start: 12-03-2021 take 1 tablet by mouth once daily amLODIPine Besylate 10 MG Oral Tablet TAKE 1 TABLET BY MOUTH EVERY DAY Quantity: 90 Refills: 0 Ordered: 11-Mar-2022 DO Start : 03-Dec-2021 Active carvedilol 25 mg oral tablet (3 sources) alpha-Adrenergic Clover, beta-Adrenergic Clover Start: 08-18-2021 take 1 tablet by mouth twice daily Carvedilol 25 MG Oral Tablet take 1 tablet by mouth twice a day Quantity: 180 Refills: 3 Ordered: 07-Aug-2022 Della Kim MD Start : 18-Aug-2021 Active gabapentin 400 mg oral capsule (3 sources) Anti-epileptic Agent Start: 05-20-2022 take 1 capsule by mouth twice daily Gabapentin 400 MG Oral Capsule Take 1 capsule twice daily Quantity: 0 Refills: 0 Ordered: 20-May-2022 DO Start : 20-May-2022 Active hydrALAZINE hydrochloride 25 mg oral tablet (3 sources) Arteriolar Vasodilator Start: 04-23-2022 take 1 tablet by mouth twice daily at mealtime hydrALAZINE HCl - 25 MG Oral Tablet TAKE 1 TABLET BY MOUTH TWICE A DAY WITH FOOD Quantity: 180 Refills: 0 Ordered: 24-Apr-2022 DO Start : 23-Apr-2022 Active take 1 tablet by chelly th every twelve hours hydrALAZINE HCl 100 MG 1 tablet with linette d Orally Twice a day Active lamoTRIgine 150 mg oral tablet (3 sources) Mood Stabilizer, Anti-epileptic Agent Start: 05-21-2022 [...] chloride 20 meq extended release oral tablet (3 sources) Start: 04-27-2022 take 1 tablet by mouth once daily Klor-Con M20 20 MEQ Oral Tablet Extended Release TAKE 1 TABLET BY MOUTH EVERY DAY Quantity: 90 Refills: 0 Ordered: 27-Apr-2022 DO Start : 27-Apr-2022 Active take 1 tablet by chelly th every twenty-four hours Potassium Chloride ER 20 MEQ 1 tablet with food Orally Once a day Active Problems Active Problems Problem Classification Problem Date Documented Da te Episodic/Chronic Administrative/social admission (4 sources) Encounter for blood-alcohol and blood-drug test; Translations: [ENC BLOOD-ALCOHOL BLOOD-DRUG TEST] Onset: 10-23-2022 Episodic Cancer of brain and nervous system (2 sources) Malignant neoplasm of brain, unspecified; Translations: [Malignant neoplasm of brain, unspecified] Onset: 10-22-2022 Chronic Essential hypertension (6 sources) Benign essential hypertension; Translations: [Benign essential hypertension] 05-03-2017 Chronic Fluid and electrolyte disorders (7 sources) Hypokalemia; Translations: [Hypokalemia] Onset: 09-07-2022 Episodic Menstrual disorders (1 source) Dysmenorrhea, unspecified; Translations: [...] [POLYCYSTIC OVARIAN SYNDROME] Onset: 01-04-2022 Chronic Other endocrine disorders (2 sources) Disorder of adrenal gland, unspecified; 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)] Chronic Other gastrointestinal disorders (1 source) Irritable bowel syndrome with diarrhea; Translations: [Irritable bowel syndrome with diarrhea] Chronic Other gastrointestinal disorders (2 sources) Diarrhea; [...] Classification Problem Date Documented Da te Episodic/Chronic Other aftercare (1 source) Other predatory animal exterminator (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 History of prior plantar fascia surgery. TECHNIQUE: Routine MRI of the foot right COMPARISON: MRI 06/02/2021. RESULT: Bone Marrow: No evidence of fracture, osteomyelitis or marrow-replacing lesion. Subcutaneous Tissues: Unremarkable. Joints: Mild to moderate degenerative changes of the first MTP joint. Other scattered mild degenerative changes within the imaged foot. Tendons: Flexor and extensor tendons are within normal limits. Plantar Plates: Plantar plates are intact-appearing. Intermetatarsal Spaces: Intermetatarsal bursitis involving the third interspace and to a lesser extent the first interspace, unchanged from prior. No evidence for Trent's neuroma. Lisfranc Ligament: Intact. Plantar Aponeurosis: Visualized portions of the plantar aponeurosis unremarkable.. Muscles: Muscle bulk and signal intensity are within normal limits. Other: No other significant abnormality IMPRESSION: No acute osseous findings. Degenerative changes, similar to prior. Intermetatarsal bursitis as discussed. ELECTRONICALLY SIGNED BY: William Chopra MD Normal Not Available CT ABDOMEN W AND WO IV CONTR [...] spec) Not detected Normal NOT DETECTED [facility] Comment on above: Result Comment: This test is not yet approved or cleared by the [place] FDA. When there are no FDA-approved or cleared tests available, and other criteria are met, FDA can make tests available under an emergency access mechanism called an Emergency Use Authorization (EUA). The EUA for this test is supported by the Network Desktop Support Specialist of Health and Human Service's (HHS's) declaration [...] consistent with SARS-CoV-2. Performed By: #### C VDTB #### [facility] [address] [address] [address] Maylin Mckoy Follow-Upon 11-05-2022 Follow-Up [id number] Janine De La Vega 1990 F Date Provider Department Center 11/05/2022 RAVINDRA BUCKLEY ONC DCC Family History Problem Relation Age of Onset Diabetes Mother Thyroid cancer Mother Diabetes Father Hypertension Father Family Status - Relation Status Age at Mother Father Level of Service:19476 MO OFFICE/OUTPATIENT ESTABLISHED MOD MDM 30-39 MIN Normal [facility] DRUG SCREEN RAPID (URINE)on 03-21-2023 AMP Negative Normal NEGATIVE [facility] Comment on above: Performed By: #### D RUGRPD #### [facility] [address] [place] [address] Dr. Maylin Mckoy BAR Negative Normal NEGATIVE [facility] Comment on above: Performed By: #### D RUGRPD #### [facility] [address] [place] [address] Dr. Maylin Mckoy BUP Negative Normal NEGATIVE [facility] Comment on above: Performed By: #### D RUGRPD #### [facility] [address] [place] [address] Dr. Maylin Mckoy BZO Negative Normal NEGATIVE [facility] Comment on above: Performed By: #### D RUGRPD #### [facility] [address] [place] [address] Dr. Maylin Mckoy DRE Negative Normal NEGATIVE [facility] Comment on above: Performed By: #### D RUGRPD #### [facility] [address] [place] [address] Dr. Maylin Mckoy CUT-OFFS SEE BELOW Normal [facility] Comment on above: Result Comment: AMP (Amphetamine): 500ng/mL, BAR (Barbituates): 200 ng/mL, BZO (Benzodiazepines): 150 ng/mL, BUP (Buprenorphine): 10 ng/mL, DRE (Cocaine): 150 ng/mL, mAMP (Methamphetamine): 500 ng/mL, MTD (Methadone): 200 ng/mL, OPI (Opiates): 100 ng/mL, OXY (Oxycodone): 100 ng/mL, PCP (Phencyclidine): 25 ng/mL, PPX (Propoxyphene): 300 ng/mL, THC (Cannabinoids): 50 ng/mL, TCA (Trycyclic Antidepressants): 300 ng/mL Performed By: #### D RUGRPD #### [facility] [address] [place] [address] Dr. Maylin Mckoy DRUG CUT HEADER DRUG CLASS TEST SYST EM CUT-OFF CONCENTRATIONS ARE FOLLOWS: Normal [facility] Comment on above: Performed By: #### D RUGRPD #### [facility] [address] [place] [address] Dr. Maylin Mckoy mAMP Negative Normal NEGATIVE [facility] Comment on above: Performed By: #### D RUGRPD #### [facility] [address] [address] [address] Maylin Mckoy MTD Negative Normal NEGATIVE [facility] Comment on above: Performed By: #### D RUGRPD #### [facility] [address] [address] [address] Maylin Mckoy OPI Negative Normal NEGATIVE [facility] Comment on above: Performed By: #### D RUGRPD #### [facility] [address] [address] [address] Maylin Mckoy OXY Negative Normal NEGATIVE [facility] Comment on above: Performed By: #### D RUGRPD #### [facility] [address] [place] [address] Dr. Maylin Mckoy PCP Negative Normal NEGATIVE [facility] Comment on above: Performed By: #### D RUGRPD #### [facility] [address] [address] [address] Maylin Mckoy PPX Negative Normal NEGATIVE [facility] Comment on above: Performed By: #### D RUGRPD #### [facility] [address] [address] [address] Maylni Mckoy TCA Negative Normal NEGATIVE [facility] Comment on above: Performed By: #### D RUGRPD #### [facility] [address] [place] [address] Dr. Maylin Mckoy THC Negative Normal NEGATIVE [facility] Comment on above: Performed By: #### D RUGRPD #### [facility] [address] [place] [address] Dr. Maylin Mckoy MR BRAIN W AND WO CONTRASTon 10-22-2022 [...] of ventriculomegaly. Electronically signed: Frank Lara. Normal [facility] Potassiumon 09-13-2022 Potassium [Moles/Vol] 3.3 mmol/L Low 3.5-5.1 [facility] Comment on above: Order Comment: Reaso n for Exam Plantar fasciitis;Encounter for preoperative assessment Result Comment: PERF ORMED BY: [place] [address] PATHOLOGIST PERSONAL LINES UNDERWRITER MARY ANN LAL M.D. Performed By: #### K #### [address] Serum or plasma potassium me asurement (moles/volume)Ordered By: Manasa Rhodes on 09-13-2022 Potassium [Moles/Vol] 3.3 mmol/L 3.5-5.1 [facility] Office Visiton 09-10-2022 Follow-up visit [id number] Janine De La Vega 1990 F Date Provider Department Center 09/10/2022 Maryanne-RAVINDRA LEMA ONC DCC Family History Problem Relation Age of Onset Diabetes Mother Thyroid cancer Mother Diabetes Father Hypertension Father Family Status - Relation Status Age at Mother Father Level of Service:60513 MO OFFICE/OUTPATIENT ESTABLISHED MOD MDM 30-39 MIN Reason for Visit and Comments: Consult [484] - Past patient, coming back today to have imaging reordered. Normal [facility] Orders Onlyon 09-10-2022 Orders Only [id number] Janine De La Vega Hermes 1990 F Date Provider Department Center 09/10/2022 MONICA DOMINGUEZ ONC [facility] Family History Problem Relation Age of Onset Diabetes Mother Thyroid cancer Mother Diabetes Father Hypertension Father Family Status - Relation Status Age at Mother Father Normal [facility] MAGNESIUMon 09-07-2022 Magnesium [Mass/Vol] 1.9 mg/dL Normal 1.8-2.4 [facility] Comment on above: Performed By: #### Jose F Yun PHOS, BMP #### [facility] [address] [place] [address] Dr. Maylin Mckoy PHOSPHORUSon 09-07-2022 Phosphate [Mass/Vol] 3.7 mg/dL Normal 2.6-4.7 [facility] Comment on above: Performed By: #### Jose F Yun PHOS, BMP #### [facility] [address] [place] [address] Dr. Maylin Mckoy PROF CHEM 8 (BAS METB)on Anion gap [Moles/Vol] 14.3 mmol/L Normal [facility] Comment on above: Performed By: #### Jose F Yun PHOS, BMP #### [facility] [address] [place] [address] Dr. Maylin Mckoy Calcium [Mass/Vol] 9.3 mg/dL Normal 8.5-10.1 [facility] Comment on above: Performed By: #### Jose F Yun PHOS, BMP #### [facility] [address] [place] [address] Dr. Maylin Mckoy Chloride [Moles/Vol] 105 mmol/L Normal 98-107 [facility] Comment on above: Performed By: #### Jose F Yun PHOS, BMP #### [facility] [address] [address] [address] Maylin Mckoy CO2 [Moles/Vol] 31.0 mmol/L Normal 21.0-32.0 [facility] Comment on above: Performed By: #### M Court, PHOS, BMP #### [facility] [address] [address] [address] Maylin Mckoy Creatinine [Mass/Vol] 0.90 mg/dL Normal 0.55-1.02 [facility] Comment on above: Performed By: #### Jose F Yun, PHOS, BMP #### [facility] [address] [address] [address] Maylin Mckoy EGFR-AF LITHUANIAN >60 Normal >=60 [facility] Comment on above: Performed By: #### M Court PHOS, BMP #### [facility] [address] [place] [address] Dr. Maylin Mckoy EGFR-NON AF LITHUANIAN >60 Normal >=60 [facility] Comment on above: Performed By: #### Jose F Yun PHOS, BMP #### [facility] [address] [address] [address] Maylin Mckoy Glucose [Mass/Vol] 158 mg/dL Critically high 74-106 [facility] Comment on above: Performed By: #### Jose F Yun PHOS, BMP #### [facility] [address] [address] [address] Maylin Mckoy Potassium [Moles/Vol] 2.3 mmol/L Critically low 3.5-5.1 [facility] Comment on above: Performed By: #### Jose F Yun PHOS, BMP #### [facility] [address] [address] [address] Maylin Mckoy Sodium [Moles/Vol] 147 mmol/L Critically high 136-145 [facility] Comment on above: Performed By: #### Jose F Yun PHOS, BMP #### [facility] [address] [address] [address] Maylin Mckoy Urea nitrogen [Mass/Vol] 7.0 mg/dL Normal 7.0-18.0 [facility] Comment on above: Performed By: #### M G, PHOS, BMP #### [facility] [address] [address] [address] Maylin Mckoy Urea nitrogen/Creatinine [Mass ratio] 7.8 mg/mg Normal [facility] Comment on above: Performed By: #### M G, PHOS, BMP #### [facility] [id number] Maylin Mckoy Potassiumon 09-07-2022 Potassium [Moles/Vol] 2.4 mmol/L Off scale low 3.5-5.1 [facility] Comment on above: Result Comment: Resu lts called at 0807 on 09/07/22 PERFORMED BY: [place] [address] PATHOLOGIST PERSONAL LINES UNDERWRITER MARY ANN LAL M.D. Performed By: #### K #### [address] Serum or plasma potassium me asurement (moles/volume)Ordered By: NON STAFF on 09-07-2022 Potassium [Moles/Vol] 2.4 mmol/L 3.5-5.1 [facility] Comment on above: Results calledat 080 [...] Former smoker Tobacco Use Screening; Status:Complete; Done: [id number] Patient Instructions Please bring all medicines, vitamins, [...] in [9 ] months Chief Complaint HEIDI DE LA VEGA is being seen for a consultation for. DEDE Benson, [facility] Bariatrics- Bariatric sx History of Present Illness [...] Vital Signs Recorded: 06Jun2022 04:17PMRecorded: 06Jun2022 03:45PM [id number], LUE, Sitting [id number], LUE, Sitting Heart Rate71, Apical Height5 ft 7 in Pcwahc452 lb BMI Uugedrfqrd68.77 kg/m2 BSA Calculated2.42 Tobacco Useb) No PHQ-2 [...] to auscul (more content not included)... Normal [employer] Tobacco Screening.on 022 Adult depression screening assessment No [facility] [employer] [facility] DO Work Phone: Tobacco use status [facility] b) No M [facility] [employer] 250 DO Work Phone: DHEA SERUMon 01-12-2022 Dehydroepiandrosterone (DHEA) 287 ng/dL Normal 31-701 [facility] Comment on above: Result Comment: Age [...] 31 - 701 Performed By: #### D STAR. #### [facility] [address] [address] [address] Maylin Mckoy TESTOSTERONE, FREE,DIRECT, T OTALon 01-06-2022 Free Testosterone(Direct) 1.6 pg/mL Normal 0.0-4.2 [facility] Comment on above: Result Comment: Perf ormed at: BN Performed By: #### T ESTFRD #### [facility] [address] [place] [address] Dr. Maylin Mckoy Testosterone [Mass/Vol] 17 ng/dL Normal 13-71 [facility] Comment on above: Result Comment: Perf ormed at: CB Performed By: #### T ESTFRD #### [facility] [address] [place] [address] Dr. Maylin Mckoy INSULINon 01-05-2022 Insulin 13.2 uIU/mL Normal 2.6-24.9 [facility] Comment on above: Performed By: #### I NSULIN #### [facility] [address] [place] [address] Dr. Maylin Mckoy GLYCOHEMOGLOBIN A1Con 2021 ADA RECOMMENDATION SEE BELOW Normal [facility] Comment on above: Result Comment: ADA RECOMMENDED LIMIT 4.0 - 6.0 ADA THERAPEUTIC TARGET < 7.0 ACTION SUGGESTED > 7.0 Performed By: #### A 1C #### [facility] [address] [address] [address] Maylin Mckoy Glucose [Mass/Vol] 146 mg/dL Normal [facility] Comment on above: Performed By: #### A 1C #### [facility] [address] [place] [address] Dr. Maylin Mckoy HbA1c (Bld) [Mass fraction] 6.7 % Critically high 4.5-6.2 [facility] Comment on above: Performed By: #### A 1C #### [facility] [address] [address] [address] Maylin Mckoy TSHon 01-04-2022 TSH 3.214 uIU/mL Normal 0.358-3.74 0 [facility] Comment on above: Performed By: #### T SH #### [facility] [address] [place] [address] Dr. Maylin Mckoy TSH RANGE SEE BELOW Normal [facility] Comment on above: Result Comment: <0.3 4 UIU/ml HYPERTHYROID 0.34-5.60 UIU/ml EUTHYROID >5.60 UIU/ml HYPOTHYROID Performed By: #### T SH #### [facility] [address] [place] [address] Dr. Maylin Mckoy Potassiumon 10-05-2021 Potassium [Moles/Vol] 3.3 mmol/L Low 3.5-5.5 Joseph [facility]rueger [place] [employer] [facility] Comment on above: Performed By: #### K #### [facility] [address], [place] [id number] Consenton 09-11-2021 Consent [id number]:127 Normal [facility] Registrationon 09-11-2021 Registration [id number]:127 Normal [facility] Basic Metabolic Panelon 08-06 Anion gap [Moles/Vol] 21 mmol/L High 12-20 [facility] [place] [facility] Comment on above: Result Comment: Effe ctive 08/10/2019 reference range changed. Performed By: #### B MP #### [facility] [address], [place] [id number] Calcium [Mass/Vol] 9.3 mg/dL Normal 8.6-10.2 Sydnie crespo [place] [facility] Comment on above: Performed By: #### B MP #### [facility] [address], [place] [id number] Chloride [Moles/Vol] 106 mmol/L Normal 98-107 [facility] Comment on above: Performed By: #### B MP #### [facility] [address], [place] [id number] CO2 [Moles/Vol] 20 mmol/L Normal 20-31 [facility] Comment on above: Performed By: #### B MP #### [facility] [address], [place] [id number] Creatinine [Mass/Vol] 0.7 mg/dL Normal 0.6-1.4 [facility] Comment on above: Performed By: #### B MP #### [facility] [address], [place] [id number] eGFRAA 115 mL/min/1.73m2 Normal >60 [facility] Specialist Comment on above: Performed By: #### B MP #### [facility] [address], [place] [id number] eGFRNAA 95 mL/min/1.73m2 Normal >60 [facility] Comment on above: Performed By: #### B MP #### [facility] [address], [place] [id number] Glucose [Mass/Vol] 184 mg/dL High 65-99 [facility] Specialist Comment on above: Result Comment: For FASTING Glucose --- ADA reference ranges: Normal 65-99 mg/dl Prediabetes 100-125 Diabetes >/= 126 Performed By: #### B MP #### [facility] [address] [place], [place] [id number] Potassium [Moles/Vol] 2.8 mmol/L Critically low 3.5-5.5 [facility] Specialist Comment on above: Result Comment: Crit ical result called to Dr Rhodes/Rylee at 09/01/2021 11:58 AM by Cyndie Montanez) Performed By: #### B MP #### [facility] [address] [place], [place] [id number] Sodium [Moles/Vol] 144 mmol/L Normal 135-146 [facility] Flare Man Comment on above: Performed By: #### B MP #### [facility] [address] [place], [place] [id number] Urea nitrogen [Mass/Vol] 10 mg/dL Normal 7-25 [facility] Comment on above: Performed By: #### B MP #### [facility] [address] [place] [id number] Consenton 08-17-2021 Consent [id number]#1.00CD:127 Normal [facility] Registrationon 08-17-2021 Registration [id number]#1.00CD:127 Normal [facility] Registrationon 04-04-2021 Registration [id number]#1.00CD:127 Normal [facility] Consenton 04-03-2021 Consent [id number]#1.00CD:127 Normal [facility] MRI BRAIN W WO CONTRASTon MRI BRAIN W WO CONTRAST [facility] Department of Radiology [address] [place] [id number] Patient Name: HEIDI DE LA VEGA : 1990 Sex: F Age: Race: White Pt. Location: 29 Patient Status: O Ordered Date: 02/04/2020 2:05:00 PM Completed Date: 03/17/2020 10:13 AM Requesting Provider: GANGA RODRIGUES Attending Provider: GANGA RODRIGUES Report Copy To: IMMANUEL KIRBY Signs & Symptoms: C71.9 Malignant neoplasm of brain, unspecified I10 History: Nita PERES AUTH [id number] VALID 03/04-04/03/2020 15737 KW Comments: , 1p-19q co-deleted oligodendroglioma of [...] reports Electronically signed: Shawn Martins. Transcribed by: [email or web address], User Resident: JONATHAN ARCE Electronically Signed by: SHAWN MARTINS @ 03/17/2020 12:45 PM I personally read this/these film(s) with this resident Normal [facility] Comment on above: Order Comment: , 1p- [...] Ordering Provider - GANGA RODRIGUES MD , MRI BRAIN W WO CONTRASTon MRI BRAIN W WO CONTRAST [facility] Department of Radiology [address] [place] [phone] Patient Name: HEIDI DE LA VEGA : 1990 Sex: F Age: Race: White Pt. Location: 29 Patient Status: O Ordered Date: 03/20/2019 11:25:00 AM Completed Date: 09/11/2019 10:54 AM Requesting Provider: ALISA MCKOY Attending Provider: ALISA MCKOY Report Copy To: IMMANUEL KIRBY Signs & Symptoms: C71.9 Malignant neoplasm of brain, unspecified I10 History: Nita peres auth # [id number] 08/28/2019-09/27/2019 cpt code 77380 *mla Comments: , 1p-19q co-deleted oligodendroglioma of [...] , , , Ordering Provider - ALISA MCKOY DO , Exam: MRI BRAIN W WO [...] Approved by:Dandy Boudreaux09/11/2019 2:47 PM. I, Jim Jason,have reviewed the imagers and reports Electronically signed: Jim Jason. Transcribed by: [email or web address], User Resident: DANDY HUFFMAN Electronically Signed by: JIM JASON @ 09/11/2019 04:35 PM I personally read this/these film(s) with this resident Normal [facility] Comment on above: Order Comment: , 1p- [...] , , , Ordering Provider - ALISA MCKOY DO , Coding Summaryon 01-29-2018 Coding Summary CODING DATE: 018 [facility] STATUS: Home PAYOR: Medicaid HMO ADMIT DX: [...] Swanson' Date Saved: 01/29/2018 03:42 pm Normal [facility] ED Clinical Summaryon 2017 ED Clinical Summary [facility] ? Urgent [address] [place] [address] clinical SummaryPERSON INFORMATIONName: HEIDI DE LA VEGA Age: 27 Years Sex: FEMALEDOB: [birth year] MRN: Acct#:Visit Reason: UC - Rash; UC - Rash; RASH/ BILAT LEGS Arrival: 01/23/18 10:43:00 Discharge: 01/23/18 11:18:00LOS: 000 00:35 Check In: 01/23/18 10:43:00 Checkout: 01/23/18 11:18:00Address:[address] [place] [id number]: Immanuel Kirby INFORMATIONProvider Role Assigned UnassignedSpasic Carmelo ASHRAF ED PA 01/23/18 10:48:23Cristal Dunaway ED Nurse 01/23/18 10:53:41VITALS INFORMATIONVital Sign Triage LatestTemperature TympanicTemperature Temporal ArteryPulse Rate 79 bpm 79 bpmO2 Sat 97 % 97 %Respiratory Rate 16 br/min 16 br/minBlood Pressure 162 mmHg/98 mmHg 162 mmHg/98 mmHgMEDICAL INFORMATIONMedications Given:Allergy Information:No Known Medication AllergiesPHYSICIAN DOCUMENTATIONDISCHARGE INFORMATION:Discharge Disposition: HomeDischarge Location:PATIENT EDUCATION INFORMATIONInstructions: Poison [place]ias[place] Dermatitis, Xumf-qy-PtunAckthk-Up:With : Address: When:Immanuel Kirby [facility] [facility] [place] [address] [place] [address] Business (1)Comments:Begin on the prednisone 2 tablets daily for 5 days take with food to avoid gastric refluxBegin on the Claritin 1 tab daily for the next 2 weeks Follow-up with primary care provider in 3-5 days sooner if worse.DIAGNOSIS:urushiol induced contact dermatitisPatient Understands: Yes - Patient/family/caregiver verbalizes understanding of instructions givenComment: Normal [facility] ED Note - Physicianon 2017 ED Note - Physician Patient: HONORIO DE LA VEGA : 27 years Sex: FEMALE : [birth year]Associated Diagnoses: urushiol induced contact dermatitisAuthor: [place] InformationTime seen: Date & time 01/23/18 11:01:00.History source: Patient.Arrival mode: Private vehicle.History limitation: None.Additional information: Chief Complaint from Nursing Triage Note : Chief Dzrwgipcq62/21/18 10:45 EDT Chief Complaint 2-3 days possible [...] been selected or recorded..Social history:Social & Psychosocial GfdzazSjvemcy23/21/2018 Number used per day: 10.Problem list:Active Problems (1)Smoker.Physical Examination Vital EtbgsCgkwgufcggsx84/21/18 10:45 EDT Height 170.18 cm Weight 122.47 [...] was given the following educational materials: Poison Piasa Dermatitis, Cxma-mq-Xucg.Follow up with: Immanuel Black on the prednisone 2 tablets daily for [...] on: 01/23/2018 11:28 EDT] [place] Normal [facility] ED Patient Summaryon 018 ED Patient Summary [facility] ? Urgent [address] [place] [address] pATIENT DISCHARGE INSTRUCTIONSPatient InformationName: HEIDI DE LA VEGA Age: 27 YearsDate of : [birth year]MRN: [id number] For Visit: UC - Rash; UC - Rash; RASH/ BILAT LEGSArrival Time: 01/23/18 10:43:00Phone: [facility] Care Physician: Immanuel Kirby Physician: Aleksander Lakement:Patient EducationWith: Address: When:Immanuel Kirby [facility] [place] [facility] [place] [address] [place] [address] Business (1)Comments:Begin on the prednisone 2 tablets daily for 5 days take with food to avoid gastric refluxBegin on the Claritin 1 tab daily for the next 2 weeks Follow-up with primary care provider in 3-5 days sooner if worse.Poison Piasa DermatitisPoison oak dermatitis is redness and soreness [...] instructions at home:General instructions? Take or apply pklc-pgu-sdfbrnp and prescription medicines only as told by [...] Reviewed: 12/28/2015Nirmala [employer] Patient Education ? 2018 [employer].Medication Information:The exam and treatment you received today in the [facility] were for an urgent problem and are not intended as complete care. It is important for you to follow up with a doctor, nurse practitioner, or physician?s financial services assistant for ongoing care. If your symptoms become [...] number so we can reach you if necessary.[facility] Emergency Department has provided you with a complete list of medications post discharge. 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 Urgent [address] [place] [address] pATIENT DISCHARGE INSTRUCTIONSPatient InformationName: HEIDI DE LA VEGA Age: 27 YearsDate of : [birth year]MRN: [birth year] For Visit: UC - Rash; UC - Rash; RASH/ BILAT LEGSArrival Time: 01/23/18 10:43:00Phone: Primary Care Physician: Immanuel Kirby Physician: Wai LakeandarComment:Visit Diagnosis:Diagnoses This Visit UC - Rash ([id number]) UC - Rash ([id number]) urushiol induced contact dermatitisIf you received any [...] documentsWith: Address: When:[address] [place] [address] Business (1)Comments:Begin on the prednisone 2 tablets daily for 5 days take with food to avoid gastric refluxBegin on the Claritin 1 tab daily for the next 2 weeks Follow-up with primary care provider in 3-5 days sooner if worse.Medication Information:The exam and treatment you received today in the [facility] were for an urgent problem and are not intended as complete care. It is important for you to follow up with a doctor, nurse practitioner, or physician?s financial services assistant for ongoing care. If your symptoms become [...] number so we can reach you if necessary.[facility] Urgent [facility] has provided you with a complete list of medications post discharge. Please inform your engine lathe set up operator/provider of your visit and for further instruction [...] Weight: 122.47 kg Body Mass Index: 42.29 kg/n3Gvselhmc List:Problem Onset CommentsSmoker Patient EducationPoison Piasa DermatitisPoison oak dermatitis is redness and soreness [...] instructions at home:General instructions? Take or apply kboy-yhk-gjriqqj and prescription medicines only as told by [...] Reviewed: 12/28/2015Nirmala Interactive Patient Education ? 2018 [employer]. Viruses or BacteriaWhat?s got you sick?Antibiotics only [...] for Disease Control and Prevention April 2014 [facility] Vital Signs Date Time Vital Sign Value Performing Clinician Facility 08-19-2023 16:00-0500 Body height 170.18 cm Zara Ramo Other [facility] Other 08-19-2023 16:00-0500 Body mass index (BMI) [Ratio] 31.76 kg/m2 Zara Ramo Other [facility] Other 08-19-2023 16:00-0500 Body temperature 97.5 [degF] Zara Ramo Other [facility] Other 08-19-2023 16:00-0500 Body weight 91.99 kg Zara Ramo Other [facility] Other 08-19-2023 16:00-0500 Diastolic blood pressure 100 mm[Hg] Zara Ramo Other [facility] Other 08-19-2023 16:00-0500 Respiratory rate 18 /min Zara Ramo Other [facility] Other 08-19-2023 16:00-0500 SaO2% (BldA) [Mass fraction] 100 % Zara Ramo Other [facility] Other 08-19-2023 16:00-0500 Systolic blood pressure 170 mm[Hg] Zara Ramo Other [facility] Other 06-06-2022 16:17-0400 Diastolic blood pressure 89 mm[Hg] Immanuel Kirby Work Phone[facility] Work Phone: 06-06-2022 16:17-0400 Systolic blood pressure 138 mm[Hg] Immanuel Kirby Work Phone: [facility] DO Work Phone: 06-06-2022 15:45-0400 Body height 170.18 cm Immanuel Kirby Work Phone: [facility] DO Work Phone: 06-06-2022 15:45-0400 Body mass index (BMI) [Ratio] 47.77 kg/m2 Immanuel Kirby Work Phone: [facility] 250 DO Work Phone: 06-06-2022 15:45-0400 Body surface area Derived from formula 2.42 m2 Immanuel Kirby Work Phone: [facility] DO Work Phone: 06-06-2022 15:45-0400 Body weight 138.35 kg Immanuel Kirby Work Phone: [facility] DO Work Phone: 06-06-2022 15:45-0400 Diastolic blood pressure 102 mm[Hg] Immanuel Tatyana Bam Work Phone: -[facility] 250 DO Work Phone: 06-06-2022 15:45-0400 Heart rate 71 /min Immanuel Tatyana Bam Work Phone: [facility] DO Work Phone: 06-06-2022 15:45-0400 Systolic blood pressure 160 mm[Hg] Immanuel Joe Bam Work Phone: -[facility] DO Work Phone: Encounters Encounter Date Encounter Type Care Provider Facility Start: 08-21-2023 ambulatory MANASA DUNAWAY Not A skyl[facility] Start: 08-20-2023 End: 08-20-2023 ambulatory IMMANUEL KIRBY Facility:[facility] Start: 08-19-2023 End: 08-19-2023 ambulatory Zara Ramo Other [facility] [employer] Other Start: 08-19-2023 Office outpatient ne w 45 minutes Zara Ramo [facility] Start: 08-15-2023 End: 08-15-2023 ambulatory MANASA DUNAWAY [...] Available Start: 07-03-2023 End: 07-04-2023 ambulatory IMMANUEL KIRBY Not Available Start: 06-26-2023 End: 06-26-2023 ambulatory SHEILA LOUIS Not Available Start: 03-18-[address] Della Kim Facility: Start: 12-13-2022 Encounter for preprocedural laboratory examination DR DOCTOR FARMER [facility] Start: 12-07-2022 End: 12-08-[address] IMMANUEL KIRBY Facility:[facility] Start: 12-07-2022 End: 12-08-2022 Encounter for preprocedural laboratory examination DR IMMANUEL KIRBY Facility:[facility] Start: 11-05-2022 ambulatory RAVINDRA LEMA [facility] Start: 10-23-2022 End: 10-24-2022 ambulatory ZAKIA BENSON Facility:[facility] Start: 10-22-2022 End: 10-23-2022 ambulatory [facility] Start: 09-13-2022 End: 09-13-2022 ambulatory Manasa Meagan Facility:[facility] Start: 09-13-2022 Encounter for other preprocedural examination Manasa Meagan [facility] Start: 09-13-2022 End: 09-13-2022 ambulatory DO Immanuel Kirby Work Phone: [facility] Work Phone: Start: 09-13-2022 End: 09-13-2022 Patient encounter procedure DO Immanuel Kirby Work Phone: [facility] [place] Work Phone: Start: 09-10-2022 End: 09-10-2022 ambulatory RAVINDRA [facility] Start: 09-07-2022 End: 09-08-[address] TE DARNELL . Facility:[facility] Start: 09-07-2022 End: 09-07-[address] TE DARNELL . Facility:[facility] Start: 09-07-2022 End: 09-07-2022 ambulatory Immanuel Kirby Facility:[facility] Start: 09-07-2022 End: 09-07-2022 ambulatory DO Immanuel Kirby Work Phone: [facility] Work Phone: Start: 09-07-2022 End: 09-07-2022 Patient encounter procedure DO Immanuel Kirby Work Phone: [facility] [place] Work Phone: Start: 08-07-2022 Rx Renewal Immanuel Joe Bam Work Phone: [facility] DO Work Phone: Start: 06-06-2022 Office outpatient vi sit 25 minutes Immanuel Mcgrather Work Phone: [facility] DO Work Phone: Start: 06-06-[address] Della Kim Facility:[id number] Start: 01-04-2022 End: 01-05-[address] BHASKAR ANGELES Facility:[facility] Start: 01-23-2018 End: 01-25-2018 Ambulatory [facility] Facility:[facility] Patient encounter status Immanuel Kirby Work Phone: [facility] DO Work Phone: Plan of Treatment Date Care Activity Detail Author Start: 03-14-2023 FUV, Provider: Della Kim, Status: Pen, Time: 1:30 PM LUCIENV, Provider: Della Kim, Status: Pen, Time: 1:30 PM [facility] DO Work Phone: Payers Date Payer Category Payer Self-pay [id number] 1990 Unknown [id number] 1990 Unknown [id number] 2.16.840.1.747643.3.579.2.593 1990 Unknown [id number] 2.16.840.1.620316.3.579.2.593 1990 Unknown [id number] 2.16.840.1.389915.3.579.2.593 1990 Unknown [id number] 2.16.840.1.096832.3.579.2.593 1990 Unknown [id number] 2.16.840.1.300693.3.579.2.356 1990 Unknown [id number] 2.16.840.1.872587.3.579.2.356 1990 Unknown [id number] 2.16.840.1.716769.3.579.2.1259 1990 Unknown [id number] 2.16.840.1.368183.3.579.2.1259 1990 Unknown [id number] 2.16.840.1.725830.3.579.2.1259 1990 Unknown [id number] 2.16.840.1.556254.3.579.2.1259 1990 Unknown [id number] 2.16.840.1.916394.3.579.2.1259 1990 Unknown [id number] 2.16.840.1.633180.3.579.2.1259 1990 Unknown [id number] 2.16.840.1.851017.3.579.2.1259 1991 Unknown [id number] 2.16.840.1.271954.3.579.2.1259 1990 Unknown [id number] 2.16.840.1.893986.3.579.2.1259 1990 Unknown [id number] 2.16.840.1.364674.3.579.2.1259 1990 Unknown [id number] 2.16.840.1.334064.3.579.2.1259 1958 Medicaid [id number] Unknown [employer] Unknown O [id number] Unknown [id number] 2.16.840.1.787047.3.579.2.531 Unknown [id number] 2.16.840.1.171047.3.579.2.531 Social History Date Type Detail Facility No illicit drug use No illicit drug use M [facility] DO Work Phone: Comment on above: quit 2021; Start: 11-09-2019 Tobacco smoking status NHIS Smoker (finding) [facility] Start: 1990 Sex Assigned At Female F [facility] Sex Assigned At Sex Assigned At Bir th [facility] Other Evaluation note 08-19-2023 Note Date & Type Note Facility 08-19-2023 Evaluation note Encounter Date Diagnosis Assessment Notes Aug, Hypokalemia (ICD-10 - E87.6) It was a pleasure to see Mrs. De La Vega in our office for evaluation and management of hypokalemia. As you know she has a longstanding hypokalemia and metabolic alkalosis and hypertension. Differential diagnoses are broad and include primary hyperaldosteronism, Mohit syndrome, Gettleman syndrome and Bartter syndrome. I have ordered the workup to rule out these differential diagnoses. I have advised her to comply with potassium chloride. Will prescribe either Amoride or spironolactone in future depend on the testing results. Aug, Metabolic alkalosis (ICD-10 - E87.3) She has a metabolic alkalosis which can be due to the Gettleman of Bartter syndrome. Aug, HTN (hypertension ) (ICD-10 - I10) Her blood pressure is high but she appears to be euvolemic. She is currently taking multiple antihypertensive medication and reported blood pressure still runs high. Will order the workup for secondary hypertension including renal artery stenosis, primary hyperaldosteronism and pheochromocytoma. Will either add DEJAH or ARB or potassium sparing diuretic in future. Aug, Adrenal nodule (ICD-10 - E27.9) Will order the workup for hyperfunctioning adenoma. Continue follow-up with the PCP for surveillance of the adrenal nodule with serial imaging. 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 Her new [...] MRI brain w/wout contrast. Ravindra Lema MD [facility] Progress note 09-10-2022 Note Date & Type Note Facility 09-10-2022 Note In person visit Chief complaint: known olidodendroglioma [place]: 32 y/o Left handed - she does not work. 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 She had migraines and high blood pressure [...] the MRI is completed. Ravindra Lema MD [facility] Chief complaint Narrative - Reported Note Date & Type Note Facility Chief complaint Narrative - Reported HEIDI DE LA VEGA is being seen for a consultation for. POC Dr. Benson, [facility] Bariatrics- Bariatric sx [facility] 250 DO Work Phone: Evaluation note Note Date & Type Note Facility Evaluation note No assessment information availa [facility] Work Phone: History general Narrative - Reported Note Date & Type Note Facility History general Narrative - Reported Type Medical History mass on left adrenal gland Medical History HYPOKALEMIA Medical History NERVOUS Medical History DYSMENORRHEA Medical History GENERALIZED HEADACHE Medical History NEUROPATHY Medical History INSOMNIA RELATED TO ANOTHER MENTAL DISORDER Medical History PSYCHOPHYSIOLOGICAL INSOMNIA Medical History FIRST DEGREE AV BLOCK Medical History PRIMARY HYPERTENSION Medical History GERD Medical History IRRITABLE BOWEL SYND GWENDOLYN WITH DIARRHEA Medical History IRREGULAR MENSTRUATION Medical History EXCESSIVE AND FREQUENT MENSTRUAT ION Medical History PRIMARY OSTEOARTHRITIS OF LEFT K NEE Medical History DIABETES MELLITUS Medical History IRON DEFICIENCY Medical History MORBID OBESITY Medical History PCOS 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, WITHOUT TROUT FARMER CURRENT USE OF INSULIN Medical History MICROSYTIC ANEMIA Medical History BIPOLAR AFFECTIVE DI SORDER, CURRENTLY DEPRESSED, MILD Medical History CANNABIS ABUSE Medical History MALIGNANT NEOPLASM OF BRAIN Surgical History brain tumor removed malignant 0 -2018 Surgical History DILATION AND CURETTA GE ESOPHAGOGASTRODUODENOSCOPY Surgical History INGROWN TOENAIL Surgical History ANKLE SCOPE PLANTAR FASCIOTOMY 2016 Surgical History RIGHT FRONTAL LOBEECTOMY 2018 Surgical History ENDOSCOPIC PLANTAR FASCIOTOMY 2 023 Surgical History GASTRIC BYPASS 12/2022 Hospitalization History SEE ABOVE [facility] Other History of Present illness Narrative Note Date [...] medication 9 4. Follow-up in 9 months -[facility] DO Work Phone: Summary Purpose Family History [...] section and content) DATE CREATED AUTHOR 01/29/2018 [facility] DATE CREATED AUTHOR AUTHOR'S ORGANIZ ATION 03/21/2020 [facility] DATE CREATED AUTHOR AUTHOR'S ORGANIZ ATION 09/12/2021 [facility] DATE CREATED AUTHOR AUTHOR'S ORGANIZ ATION 10/06/2021 [facility] dical Specialist DATE CREATED AUTHOR AUTHOR'S ORGANIZ ATION 06/07/2022 [facility] DATE CREATED AUTHOR AUTHOR'S ORGANIZ ATION 09/19/2022 [facility] DATE CREATED AUTHOR AUTHOR'S ORGANIZ ATION 11/19/2022 [facility] DATE CREATED AUTHOR AUTHOR'S ORGANIZ ATION 12/14/2022 [facility] DATE CREATED AUTHOR AUTHOR'S ORGANIZ ATION 03/19/2023 [facility] DATE CREATED AUTHOR AUTHOR'S ORGANIZ ATION 08/21/2023 [facility] DATE CREATED AUTHOR AUTHOR'S ORGANIZ ATION 08/22/2023 [facility] dical Specialists EP[employer] Care Teams (unrecognized sec tion and content) Team Status: Inactive Member Role Status Dates Immanuel Kirby DO Primary Care Provider Active NETTIE Kramer Attending Provider Active Team Status: Active Member Role Status Dates Immanuel Kirby DO Primary Care Provider Active Team Status: Inactive Member Role Status Dates Immanuel Kirby DO Primary Care Provider Active Manasa Rhodes DPM Attending Provider Active Goals (unrecognized section and content) Goals may be documented in a n alternate sectionGoals may be documented in an alternate sectionNo Information REASON FOR VISIT (unrecogniz ed section and content) RENAL HYPOKALEMIA FOR RECORDS PERTAINING TO PATIENTS WHO ARE [...] BE BASED ON THE PRIMARY CLINICAL RECORDS. [employer] [facility]. provides no warranty or guarantee of the accuracy or completeness of information in this document.
[2023-08-23 13:11] LABS: Albumin Level 3.4 g/dL (3.4-5.0); Anion Gap 8.7; BUN Creatinine Ratio 22.4; Calcium 8.8 mg/dL (8.5-10.1); Carbon Dioxide 34.4 mmol/L (21.0-32.0); Chloride 105 mmol/L (98-107); Estimated GFR (African America >60 (>=60); Estimated GFR (Non-African Ame >60 (>=60); Glucose 84 mg/dL (74-106); Magnesium 2.1 mg/dL (1.8-2.4); Phosphorus 2.6 mg/dL (2.6-4.7); Sodium 146 mmol/L (136-145)
[2023-08-23 13:36] LABS: Potassium 2.1 mmol/L (3.5-5.1)
[2023-08-23 13:40] LABS: Potassium 24 Hour Urine 23.5 mmol/24h (25.0-125.0); Potassium Urine Random 17.4 mmol/L; Total Volume 24 Hour Urine 1350 mL/24hr
== END 2023-08-23 11:17 | disposition home or self-care (01) ==
LOC: LAB 11:16
PROVIDERS: PCP Family Medicine; Visit Provider Internal Medicine
DX: E87.6 Hypokalemia (principal); E87.3 Alkalosis; I10 Essential (primary) hypertension; E27.9 Disorder of adrenal gland, unspecified
CPT/HCPCS: 36415; 80069; 82088; 82533; 83735; 84133; 84244

== ENCOUNTER 2023-08-23 16:14 | Observation (INO) | payer OTHER, SELFPAY ==
[2023-08-23] VITALS (7 sets, daily range): BP systolic 160–180; BP diastolic 84–100; PULSE 53–62; RESP 16–18; TEMP 36.9; O2SAT 96–98; BMI 31.3; BMI 31.6
--- OUTSIDE RECORDS SUMMARY | 2023-08-23 16:21 | XMS_ITS | CCD ---
Author Name Unknown Address [address] [place] [address] Organization [facility] Care Team Providers Care Health Promotion Educator Name Role Phone Spasic, Carmelo Unavailable Unavailable Roryc, Carmelo Unavailable Unavailable IMMANUEL KIRBY Unavailable Unavailable Immanuel Kirby Unavailable Unavailable Unavailable DO Immanuel Kirby Primary Care Provider [phone] NETTIE Prakash Attending Provider REJI Rhodes Attending Provider Manasa Rhodes Admitting Unavailable Immanuel Kirby Primary [...] Nadia Kirby, Dr. Immanuel Toure Primary Care [facility] darryn Kim, Dr. Hull [facility]ending [facility] Dr. Hull Referring [facility] Kirby, Dr. 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 Maylin Mckoy Follow-Upon 11-05-2022 Follow-Up [id number] Janine De La Vega 1990 F Date Provider Department Center 11/05/2022 RAVINDRA BUCKLEY ONC DCC Family History Problem Relation Age of Onset Diabetes Mother Thyroid cancer Mother Diabetes Father Hypertension Father Family Status - Relation Status Age at Mother Father Level of Service:94242 ME OFFICE/OUTPATIENT ESTABLISHED MOD MDM 30-39 MIN Normal [facility] DRUG SCREEN RAPID (URINE)on 03-21-2023 AMP Negative Normal NEGATIVE [facility] Comment on above: Performed By: #### D RUGRPD #### [facility] [address] [place] [address] Dr. Maylin Mckoy BAR Negative Normal NEGATIVE [facility] Comment on above: Performed By: #### D RUGRPD #### [facility] [address] [place] [address] Dr. Maylin Mckoy BUP Negative Normal NEGATIVE [facility] Comment on above: Performed By: #### D RUGRPD #### [facility] [address] [place] [address] Dr. Maylin Mckoy BZO Negative Normal NEGATIVE [facility] Comment on above: Performed By: #### D RUGRPD #### [facility] [address] [place] [address] Dr. Maylin Mckoy DRE Negative Normal NEGATIVE [facility] Comment on above: Performed By: #### D RUGRPD #### [facility] [address] [place] [address] Dr. Maylin Mckoy CUT-OFFS SEE BELOW Normal [facility] Comment on above: Result Comment: AMP [...] RUGRPD #### [facility] [address] [place] [address] Dr. Maylin Mckoy DRUG CUT HEADER DRUG CLASS TEST SYST EM CUT-OFF CONCENTRATIONS ARE FOLLOWS: Normal [facility] Comment on above: Performed By: #### D RUGRPD #### [facility] [address] [place] [address] Dr. Maylin Mckoy mAMP Negative Normal NEGATIVE [facility] Comment on above: Performed By: #### D RUGRPD #### [facility] [address] [address] [address] Maylin Mckoy MTD Negative Normal NEGATIVE [facility] Comment on above: Performed By: #### D RUGRPD #### [facility] [address] [address] [address] Maylin Mckoy OPI Negative Normal NEGATIVE [facility] Comment on above: Performed By: #### D RUGRPD #### [facility] [address] [address] [address] Maylin Mckoy OXY Negative Normal NEGATIVE [facility] Comment on above: Performed By: #### D RUGRPD #### [facility] [address] [place] [address] Dr. Maylin Mckoy PCP Negative Normal NEGATIVE [facility] Comment on above: Performed By: #### D RUGRPD #### [facility] [address] [address] [address] Maylin Mckoy PPX Negative Normal NEGATIVE [facility] Comment on above: Performed By: #### D RUGRPD #### [facility] [address] [address] [address] Maylin Mckoy TCA Negative Normal NEGATIVE [facility] Comment on above: Performed By: #### D RUGRPD #### [facility] [address] [place] [address] Dr. Maylin Mckoy THC Negative Normal NEGATIVE [facility] Comment on above: Performed By: #### D RUGRPD #### [facility] [address] [place] [address] Dr. Maylin Mckoy MR BRAIN W AND [...] of ventriculomegaly. Electronically signed: Frank Lara. Normal [facility] Potassiumon 09-13-2022 Potassium [Moles/Vol] 3.3 mmol/L Low 3.5-5.1 [facility] Comment on above: Order Comment: Reaso n for Exam Plantar fasciitis;Encounter for preoperative assessment Result Comment: PERF ORMED BY: [place] [address] PATHOLOGIST UNDER GROUND MINER MARY ANN LAL M.D. Performed By: #### K #### [address] Serum or plasma potassium me asurement (moles/volume)Ordered By: Manasa Rhodes on 09-13-2022 Potassium [Moles/Vol] 3.3 mmol/L 3.5-5.1 [facility] Office Visiton 09-10-2022 Follow-up visit [id number] Janine De La Vega 1990 F Date Provider Department Center 09/10/2022 Maryanne-RAVINDRA LEMA ONC DCC Family History Problem Relation Age of Onset Diabetes Mother Thyroid cancer Mother Diabetes Father Hypertension Father Family Status - Relation Status Age at Mother Father Level of Service:51667 ME OFFICE/OUTPATIENT ESTABLISHED MOD MDM 30-39 MIN Reason for Visit and Comments: Consult [484] - Past patient, coming back today to have imaging reordered. Normal [facility] Orders Onlyon 09-10-2022 Orders Only [id number] Janine De La Vega Hermes 1990 F Date Provider Department Center 09/10/[address] [facility] Family History Problem Relation Age of Onset Diabetes Mother Thyroid cancer Mother Diabetes Father Hypertension Father Family Status - Relation Status Age at Mother Father Normal [facility] MAGNESIUMon 09-07-2022 Magnesium [Mass/Vol] 1.9 mg/dL Normal 1.8-2.4 [facility] Comment on above: Performed By: #### Jose F Yun PHOS, BMP #### [facility] [address] [place] [address] Dr. Maylin Mckoy PHOSPHORUSon 09-07-2022 Phosphate [Mass/Vol] 3.7 mg/dL Normal 2.6-4.7 [facility] Comment on above: Performed By: #### Jose F Yun PHOS, BMP #### [facility] [address] [place] [address] Dr. Maylin Mckoy PROF CHEM 8 (BAS METB)on Anion gap [Moles/Vol] 14.3 mmol/L Normal [facility] Comment on above: Performed By: #### Jose F Yun PHOS, BMP #### [facility] [address] [place] [address] Dr. Maylin Mckoy Calcium [Mass/Vol] 9.3 mg/dL Normal 8.5-10.1 [facility] Comment on above: Performed By: #### Jose F Yun PHOS, BMP #### [facility] [address] [place] [address] Dr. Maylin Mckoy Chloride [Moles/Vol] 105 mmol/L Normal 98-107 [facility] Comment on above: Performed By: #### Jose F Yun PHOS, BMP #### [facility] [address] [address] [address] Maylin Mckoy CO2 [Moles/Vol] 31.0 mmol/L Normal 21.0-32.0 [facility] Comment on above: Performed By: #### M [address], PHOS, BMP #### [facility] [address] [address] [address] Maylin Mckoy Creatinine [Mass/Vol] 0.90 mg/dL Normal 0.55-1.02 [facility] Comment on above: Performed By: #### Jose F Yun, PHOS, BMP #### [facility] [address] [address] [address] Maylin Mckoy EGFR-AF EMIRATI >60 Normal >=60 [facility] Comment on above: Performed By: #### M Court PHOS, BMP #### [facility] [address] [place] [address] Dr. Maylin Mckoy EGFR-NON AF EMIRATI >60 Normal >=60 [facility] Comment on above: Performed By: #### Jose F Yun PHOS, BMP #### [facility] [address] [address] [address] Maylin Mckoy Glucose [Mass/Vol] 158 mg/dL Critically high 74-106 [facility] Comment on above: Performed By: #### Jose F Yun PHOS, BMP #### [facility] [address] [address] [address] Maylin Mckoy Potassium [Moles/Vol] 2.3 mmol/L Critically low 3.5-5.1 [facility] Comment on above: Performed By: #### Jose F Yun PHOS, BMP #### [facility] [address] [address] [address] Maylin Mckoy Sodium [Moles/Vol] 147 mmol/L Critically high 136-145 [facility] Comment on above: Performed By: #### Jose F Yun PHOS, BMP #### [facility] [address] [address] [address] Maylin Mckoy Urea nitrogen [Mass/Vol] 7.0 mg/dL Normal 7.0-18.0 [facility] Comment on above: Performed By: #### M G, PHOS, BMP #### [facility] [address] [address] [address] Maylin Mckoy Urea nitrogen/Creatinine [Mass ratio] 7.8 mg/mg Normal [facility] Comment on above: Performed By: #### M G, PHOS, BMP #### [facility] [id number] Maylin Mckoy Potassiumon 09-07-2022 Potassium [Moles/Vol] 2.4 mmol/L Off scale low 3.5-5.1 [facility] Comment on above: Result Comment: Resu lts called at 0807 on 09/07/22 PERFORMED BY: [place] [address] PATHOLOGIST UNDER GROUND MINER MARY ANN LAL M.D. Performed By: #### K #### [address] Serum or plasma potassium me asurement (moles/volume)Ordered By: NON STAFF on 09-07-2022 Potassium [Moles/Vol] 2.4 mmol/L 3.5-5.1 [facility] Comment on above: Results calledat 080 [...] Former smoker Tobacco Use Screening; Status:Complete; Done: [id number] Patient Instructions Please bring all medicines, vitamins, [...] seen for a consultation for. DEDE Benson, [facility] Bariatrics- Bariatric sx History of Present Illness [...] Vital Signs Recorded: 06Jun2022 04:17PMRecorded: 06Jun2022 03:45PM [id number], LUE, Sitting Somfnmhkz77545, LUE, Sitting Heart Rate71, Apical Height5 ft 7 in Mwrocn398 lb BMI Tzudgwgmxj57.77 kg/m2 BSA Calculated2.42 Tobacco Useb) No PHQ-2 [...] to auscul (more content not included)... Normal [employer] Tobacco Screening.on 022 Adult depression screening assessment No [facility] 250 DO Work Phone: Tobacco use status CPHS b) No M [facility] 250 DO Work Phone: DHEA SERUMon 01-12-2022 Dehydroepiandrosterone (DHEA) 287 ng/dL Normal 31-701 [facility] Comment on above: Result Comment: Age [...] #### [facility] [address] [address] [address] Maylin Mckoy TESTOSTERONE, FREE,DIRECT, T OTALon 01-06-2022 Free Testosterone(Direct) 1.6 pg/mL Normal 0.0-4.2 [facility] Comment on above: Result Comment: Perf ormed at: BN Performed By: #### T ESTFRD #### [facility] [address] [place] [address] Dr. Maylin Mckoy Testosterone [Mass/Vol] 17 ng/dL Normal 13-71 [facility] Comment on above: Result Comment: Perf ormed at: CB Performed By: #### T ESTFRD #### [facility] [address] [place] [address] Dr. Maylin Mckoy INSULINon 01-05-2022 Insulin 13.2 uIU/mL Normal 2.6-24.9 [facility] Comment on above: Performed By: #### I NSULIN #### [facility] [address] [place] [address] Dr. Maylin Mckoy GLYCOHEMOGLOBIN A1Con 2021 ADA RECOMMENDATION SEE BELOW Normal [facility] Comment on above: Result Comment: ADA RECOMMENDED LIMIT 4.0 - 6.0 ADA THERAPEUTIC TARGET < 7.0 ACTION SUGGESTED > 7.0 Performed By: #### A 1C #### [facility] [address] [address] [address] Maylin Mckoy Glucose [Mass/Vol] 146 mg/dL Normal [facility] Comment on above: Performed By: #### A 1C #### [facility] [address] [place] [address] Dr. Maylin Mckoy HbA1c (Bld) [Mass fraction] 6.7 % Critically high 4.5-6.2 [facility] Comment on above: Performed By: #### A 1C #### [facility] [address] [address] [address] Maylin Mckoy TSHon 01-04-2022 TSH 3.214 uIU/mL Normal 0.358-3.74 0 [facility] Comment on above: Performed By: #### T SH #### [facility] [address] [place] [address] Dr. Maylin Mckoy TSH RANGE SEE BELOW Normal [facility] Comment on above: Result Comment: <0.3 4 UIU/ml HYPERTHYROID 0.34-5.60 UIU/ml EUTHYROID >5.60 UIU/ml HYPOTHYROID Performed By: #### T SH #### [facility] [address] [place] [address] Dr. Maylin Mckoy Potassiumon 10-05-2021 Potassium [Moles/Vol] 3.3 mmol/L Low 3.5-5.5 Joseph krueger [employer] Salesperson Comment on above: Performed By: #### K #### [facility] [address] [place], [place] [id number] [place] 09-11-2021 Consent [id number]#1.00CD:127 Normal [facility] Registrationon 09-11-2021 Registration [id number]#1.00CD:127 Normal [facility] Basic Metabolic Panelon 08-06 Anion gap [Moles/Vol] 21 mmol/L High 12-20 Joseph [facility] [employer] Salesperson Comment on above: Result Comment: Effe ctive 08/10/2019 reference range changed. Performed By: #### B MP #### [facility] [address] [place], [place] [id number] Calcium [Mass/Vol] 9.3 mg/dL Normal 8.6-10.2 Sydnie crespo [employer] Salesperson Comment on above: Performed By: #### B MP #### [facility] [address] [place], [place] [id number] Chloride [Moles/Vol] 106 mmol/L Normal 98-107 [facility] Comment on above: Performed By: #### B MP #### [facility] [address] [place], [place] [id number] CO2 [Moles/Vol] 20 mmol/L Normal 20-31 [facility] Comment on above: Performed By: #### B MP #### [facility] [address] [place], [place] [id number] Creatinine [Mass/Vol] 0.7 mg/dL Normal 0.6-1.4 [facility] Comment on above: Performed By: #### B MP #### [facility] [address] [place], [place] [id number] eGFRAA 115 mL/min/1.73m2 Normal >60 [facility] Specialist Comment on above: Performed By: #### B MP #### [facility] [address] [place], [place] [id number] eGFRNAA 95 mL/min/1.73m2 Normal >60 [facility] Comment on above: Performed By: #### B MP #### [facility] [address] [place], [place] [id number] Glucose [Mass/Vol] 184 mg/dL High 65-99 [facility] Specialist Comment on above: Result Comment: For FASTING Glucose --- ADA reference ranges: Normal 65-99 mg/dl Prediabetes 100-125 Diabetes >/= 126 Performed By: #### B MP #### [facility] [address] [place], [place] [id number] Potassium [Moles/Vol] 2.8 mmol/L Critically low 3.5-5.5 [facility] Specialist Comment on above: Result Comment: Crit ical result called to Dr Rhodes/Rylee at 09/01/2021 11:58 AM by Cyndie Montanez) Performed By: #### B MP #### [facility] [address] [place], [place] [id number] Sodium [Moles/Vol] 144 mmol/L Normal 135-146 [facility] [employer] Salesperson Comment on above: Performed By: #### B MP #### [facility] [address] [place], [place] [id number] Urea nitrogen [Mass/Vol] 10 mg/dL Normal 7-25 [facility] [employer] Salesperson Comment on above: Performed By: #### B MP #### [facility] [address] [place] [place] [id number] [place] 08-17-2021 Consent [id number]#1.00CD:127 Normal [facility] Registrationon 08-17-2021 Registration [id number]#1.00CD:127 Normal [facility] Registrationon 04-04-2021 Registration [id number]#1.00CD:127 Normal [facility] [place] 04-03-2021 Consent [id number]#1.00CD:127 Normal [facility] MRI BRAIN W WO CONTRASTon MRI BRAIN W WO CONTRAST [facility] Department of Radiology [address] [place] [phone] Patient Name: HEIDI DE LA VEGA : 1990 Sex: F Age: Race: White Pt. Location: 29 Patient Status: O Ordered Date: 02/04/2020 2:05:00 PM Completed Date: 03/17/2020 10:13 AM Requesting Provider: GANGA RODRIGUES Attending Provider: GANGA RODRIGUES Report Copy To: IMMANUEL KIRBY Signs & Symptoms: C71.9 Malignant neoplasm of brain, unspecified I10 History: Nita PERES AUTH [id number] VALID 03/04-04/03/2020 [id number] KW Comments: , 1p-19q co-deleted oligodendroglioma of [...] reports Electronically signed: Shawn Martins. Transcribed by: [email or web address], User Resident: JONATHAN ARCE Electronically Signed by: SHAWN MARTINS @ 03/17/2020 12:45 PM I personally read this/these film(s) with this resident Normal [facility] Comment on above: Order Comment: , [...] WO CONTRASTon MRI BRAIN W WO CONTRAST [facility] Department of Radiology [address] [place] [phone] Patient Name: HEIDI DE LA VEGA : 1990 Sex: F Age: Race: White Pt. 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 Transcribed by: [email or web address], User Resident: DANDY HUFFMAN Electronically Signed by: JIM JASON @ 09/11/2019 04:35 PM I personally read this/these film(s) with this resident Normal [facility] Comment on above: Order Comment: , [...] Summaryon 01-29-2018 Coding Summary CODING DATE: 018 [facility] STATUS: Home PAYOR: Medicaid HMO ADMIT DX: [...] Swanson' Date Saved: 01/29/2018 03:42 pm Normal ED Clinical Summaryon 2017 ED Clinical Summary ? Urgent [id number] [place] [address] clinical SummaryPERSON INFORMATIONName: HEIDI DE LA VEGA Age: 27 Years Sex: FEMALEDOB: [birth year] MRN: Acct#:Visit Reason: UC - Rash; UC - Rash; RASH/ BILAT LEGS Arrival: 01/23/18 10:43:00 Discharge: 01/23/18 11:18:00LOS: 000 00:35 Check In: 01/23/18 10:43:00 Checkout: 01/23/18 11:18:00Address:[address] [place] [id number]: Immanuel Kirby INFORMATIONProvider Role Assigned UnassignedSpasic Carmelo ASHRAF ED PA 01/23/18 10:48:23Cristal Dunaway ED Nurse 01/23/18 10:53:41VITALS INFORMATIONVital Sign Triage LatestTemperature TympanicTemperature Temporal ArteryPulse Rate 79 bpm 79 bpmO2 Sat 97 % 97 %Respiratory Rate 16 br/min 16 br/minBlood Pressure 162 mmHg/98 mmHg 162 mmHg/98 mmHgMEDICAL INFORMATIONMedications Given:Allergy Information:No Known Medication AllergiesPHYSICIAN DOCUMENTATIONDISCHARGE INFORMATION:Discharge Disposition: HomeDischarge Location:PATIENT EDUCATION INFORMATIONInstructions: Poison Marcell Dermatitis, Wfqh-kr-IgrfQuqlwb-Up:With : Address: When:Immanuel Kirby [facility] [address] [facility] [address] [place] [address] Business (1)Comments:Begin on the prednisone 2 tablets daily for 5 days take with food to avoid gastric refluxBegin on the Claritin 1 tab daily for the next 2 weeks Follow-up with primary care provider in 3-5 days sooner if worse.DIAGNOSIS:urushiol induced contact dermatitisPatient Understands: Yes - Patient/family/caregiver verbalizes understanding of instructions givenComment: Normal ED Note - Physicianon 2017 ED Note - Physician Patient: HONORIO DE LA VEGA : 27 years Sex: FEMALE : [birth year]Associated Diagnoses: urushiol induced contact dermatitisAuthor: [place] InformationTime seen: Date & time 01/23/18 11:01:00.History source: Patient.Arrival mode: Private vehicle.History limitation: None.Additional information: Chief Complaint from Nursing Triage Note : Chief Kydrudyqi81/21/18 10:45 EDT Chief Complaint 2-3 days possible [...] been selected or recorded..Social history:Social & Psychosocial OfoallFxyjkby65/21/2018 Number used per day: 10.Problem list:Active Problems (1)Smoker.Physical Examination Vital LokcpSzmbpqpwezlo47/21/18 10:45 EDT Height 170.18 cm Weight 122.47 [...] was given the following educational materials: Poison Marcell Dermatitis, Flzj-pl-Lfrp.Follow up with: Immanuel Black on the prednisone [...] on: 01/23/2018 11:28 EDT] [place] Normal ED Patient Summaryon 018 ED Patient Summary ? Urgent [id number] [place] [address] pATIENT DISCHARGE INSTRUCTIONSPatient InformationName: HEIDI DE LA VEGA Age: 27 YearsDate of : [birth year]MRN: [id number] For Visit: UC - Rash; UC - Rash; RASH/ BILAT LEGSArrival Time: 01/23/18 10:43:00[facility]: [facility]: Immanuel Kirby Physician: Aleksander Lakement:Patient EducationWith: Address: When:Immanuel Kirby [facility] [address] [place] [address] Business (1)Comments:Begin on the prednisone 2 tablets daily for 5 days take with food to avoid gastric refluxBegin on the Claritin 1 tab daily for the next 2 weeks Follow-up with primary care provider in 3-5 days sooner if worse.Poison Marcell DermatitisPoison oak dermatitis is redness and soreness [...] instructions at home:General instructions? Take or apply lbwn-mqi-ihwqmpv and prescription medicines only as told by [...] Reviewed: 12/28/2015[employer] Patient Education ? 2018 [employer].Medication Information:The exam and treatment you received today in the [facility] Emergency Department were for an urgent problem and are not intended as complete care. It is important for you to follow up with a doctor, nurse practitioner, or physician?s assistant facility manager for ongoing care. If your symptoms become [...] number so we can reach you if necessary. Emergency Department has provided you with a complete list of medications post discharge. Please inform your hitcher/provider of your visit and for further instruction [...] InformationVisit Diagnosis:Diagnoses This Visit UC - Rash ([id number]) UC - Rash ([id number]) urushiol induced contact dermatitisIf you received any [...] Weight: 122.47 kg Body Mass Index: 42.29 kg/k3Peqpzoeg List:Problem Onset CommentsSmokerMajor Tests and Procedures:The following [...] Disease Control and Prevention April 2014 Normal [facility] [place] 018 Urgent Care Record ? Urgent [address] [place] [address] pATIENT DISCHARGE INSTRUCTIONSPatient InformationName: HEIDI DE LA VEGA Age: 27 YearsDate of : [birth year]MRN: [id number] For Visit: UC - Rash; UC - Rash; RASH/ BILAT LEGSArrival Time: 01/23/18 10:43:00Phone: Primary Care Physician: Immanuel Kirby Physician: Wai LakeandarComment:Visit Diagnosis:Diagnoses This Visit UC - Rash ([id number]) UC - Rash ([id number]) urushiol induced contact dermatitisIf you received any [...] documentsWith: Address: When:[address] [place] [address] Business (1)Comments:Begin on the prednisone 2 tablets daily for 5 days take with food to avoid gastric refluxBegin on the Claritin 1 tab daily for the next 2 weeks Follow-up with primary care provider in 3-5 days sooner if worse.Medication Information:The exam and treatment you received today in the [facility] were for an urgent problem and are not intended as complete care. It is important for you to follow up with a doctor, nurse practitioner, or physician?s assistant facility manager for ongoing care. If your symptoms become [...] number so we can reach you if necessary. Urgent [facility] has provided you with a complete list of medications post discharge. Please inform your hitcher/provider of your visit and for further instruction [...] Weight: 122.47 kg Body Mass Index: 42.29 kg/f4Cgbxwgrz List:Problem Onset CommentsSmoker Patient EducationPoison Marcell DermatitisPoison oak dermatitis is redness and soreness [...] instructions at home:General instructions? Take or apply cekl-vtp-[id number] and prescription medicines only as told by [...] Reviewed: 12/28/2015[employer] Patient Education ? 2018 [employer]. Viruses or BacteriaWhat?s got you sick?Antibiotics only [...] for Disease Control and Prevention April 2014 [facility] Vital Signs Date Time Vital Sign Value Performing Clinician Facility 08-19-2023 16:00-0500 Body height 170.18 cm Zara Ramo Other [facility] Other 08-19-2023 16:00-0500 Body mass index (BMI) [Ratio] 31.76 kg/m2 Zara Ramo Other [facility] Other 08-19-2023 16:00-0500 Body temperature 97.5 [degF] Zara Ramo Other [facility] Other 08-19-2023 16:00-0500 Body weight 91.99 kg Zara Ramo Other [facility] Other 08-19-2023 16:00-0500 Diastolic blood pressure 100 mm[Hg] Zara Ramo Other [facility] Other 08-19-2023 16:00-0500 Respiratory rate 18 /min Zara Ramo Other [facility] Other 08-19-2023 16:00-0500 SaO2% (BldA) [Mass fraction] 100 % Zara Ramo Other [facility] Other 08-19-2023 16:00-0500 Systolic blood pressure 170 mm[Hg] Zara Ramo Other [facility] Other 06-06-2022 16:17-0400 Diastolic blood pressure 89 mm[Hg] Immanuel Kirby [facility] Phone: [facility] Work Phone: 06-06-2022 16:17-0400 Systolic blood pressure 138 mm[Hg] Immanuel Kirby Work Phone: [facility] DO Work Phone: 06-06-2022 15:45-0400 Body height 170.18 cm Immanuel Kirby Work Phone: [facility] DO Work Phone: 06-06-2022 15:45-0400 Body mass index (BMI) [Ratio] 47.77 kg/m2 Immanuel Kirby Work Phone: [facility] DO Work Phone: 06-06-2022 15:45-0400 Body surface area Derived from formula 2.42 m2 Immanuel Kirby Work Phone: [facility] DO Work Phone: 06-06-2022 15:45-0400 Body weight 138.35 kg Immanuel Kirby Work Phone: [facility] DO Work Phone: 06-06-2022 15:45-0400 Diastolic blood pressure 102 mm[Hg] Immanuel Tatyana Bam Work Phone: [facility] DO Work Phone: 06-06-2022 15:45-0400 Heart rate 71 /min Immanuel Tatyana Bam Work Phone: [facility] DO Work Phone: 06-06-2022 15:45-0400 Systolic blood pressure 160 mm[Hg] Immanuel Joe Bam Work Phone: [facility] DO Work Phone: Encounters Encounter Date Encounter Type Care Provider Facility Start: 08-21-2023 ambulatory MANASA DUNAWAY Not A [facility] Start: 08-20-2023 End: 08-20-2023 ambulatory IMMANUEL KIRBY Facility:[facility] Start: 08-19-2023 End: 08-19-2023 ambulatory Zara Ramo Other [facility] [email or web address] Other Start: 08-19-2023 Office outpatient ne w [...] Available Start: 07-22-2023 End: 07-22-2023 ambulatory JUAN BRAON Not Available Start: 07-18-2023 End: 07-18-2023 ambulatory ALEX NAIK Not Available Start: 07-03-2023 End: 07-04-2023 ambulatory IMMANUEL KIRBY Not Available Start: 06-26-2023 End: 06-26-2023 ambulatory SHEILA LOUIS Not Available Start: 03-18-[address] Della Kim Facility: Start: 12-13-2022 Encounter for preprocedural laboratory examination DR DOCTOR FARMER [facility] Start: 12-07-2022 End: 12-08-[address] IMMANUEL KIRBY Facility:[facility] Start: 12-07-2022 End: 12-08-2022 Encounter for preprocedural laboratory examination DR IMMANUEL KIRBY Facility:[facility] Start: 11-05-2022 ambulatory RAVINDRA LEMA [facility] Start: 10-23-2022 End: 10-24-2022 ambulatory ZAKIA BENSON Facility:[facility] Start: 10-22-2022 End: 10-23-2022 ambulatory [facility] Start: 09-13-2022 End: 09-13-2022 ambulatory Manasa Meagan Facility:[facility] Start: 09-13-2022 Encounter for other preprocedural examination Manasa Meagan [facility] Start: 09-13-2022 End: 09-13-2022 ambulatory DO Immanuel Kirby Work Phone: [facility] Work Phone: Start: 09-13-2022 End: 09-13-2022 Patient encounter procedure DO Immanuel Kirby Work Phone: [facility] [place] Work Phone: Start: 09-10-2022 End: 09-10-2022 ambulatory RAVINDRA [facility] Start: 09-07-2022 End: 09-08-[address] TE DARNELL . Facility:[facility] Start: 09-07-2022 End: 09-07-[address] TE DARNELL . Facility:[facility] Start: 09-07-2022 End: 09-07-2022 ambulatory Immanuel Kirby Facility:[facility] Start: 09-07-2022 End: 09-07-2022 ambulatory DO Immanuel Kirby Work Phone: [facility] Work Phone: Start: 09-07-2022 End: 09-07-2022 Patient encounter procedure DO Immanuel Kirby Work Phone: [facility] [place] Work Phone: Start: 08-07-2022 Rx Renewal Immanuel Joe Bam Work Phone: [facility] DO Work Phone: Start: 06-06-2022 Office outpatient vi sit 25 minutes Immanuel Mcgrather Work Phone: [facility] DO Work Phone: Start: 06-06-[address] Della Kim Facility:[id number] Start: 01-04-2022 End: 01-05-[address] BHASKAR ANGELES Facility:[facility] Start: 01-23-2018 End: 01-25-2018 Ambulatory [facility] Facility: Patient encounter status Immanuel Kirby Work Phone: [facility] DO Work Phone: Plan of Treatment Date Care Activity Detail Author Start: 03-14-2023 FUV, Provider: Della Kim, Status: Pen, Time: 1:30 PM LUCIENV, Provider: Della Kim, Status: Pen, Time: 1:30 PM [facility] DO Work Phone: Payers Date Payer Category Payer Self-pay [id number] 1990 Unknown [id number] 1991 Unknown [id number] [id number]3 1991 Unknown [id number] 2.16.840.1.879609.3.579.2.593 1991 Unknown [id number] 2.16.840.1.183075.3.579.2.593 1991 Unknown [id number] 2.16.840.1.242197.3.579.2.593 1991 Unknown [id number] 2.16.840.1.912527.3.579.2.356 1991 Unknown [id number] 2.16.840.1.907692.3.579.2.356 1991 Unknown [id number] 2.16.840.1.534333.3.579.2.1259 1991 Unknown [id number] 2.16.840.1.956522.3.579.2.1259 1991 Unknown [id number] 2.16.840.1.630171.3.579.2.1259 1991 Unknown [id number] 2.16.840.1.985525.3.579.2.1259 1991 Unknown [id number] 2.16.840.1.872870.3.579.2.1259 1991 Unknown [id number] 2.16.840.1.767169.3.579.2.1259 1991 Unknown [id number] 2.16.840.1.750531.3.579.2.1259 1991 Unknown [id number] 2.16.840.1.154054.3.579.2.1259 1991 Unknown [id number] 2.16.840.1.786257.3.579.2.1259 1991 Unknown [id number] 2.16.840.1.865583.3.579.2.1259 1991 Unknown [id number] 2.16.840.1.530115.3.579.2.1259 1958 Medicaid [id number] Unknown [facility] PLAN Unknown O [id number] Unknown [id number] 2.16.840.1.307030.3.579.2.531 Unknown [id number] 2.16.840.1.521708.3.579.2.531 Social History Date Type Detail Facility No illicit drug use No illicit drug use M [facility] DO Work Phone: Comment on above: quit 2021; Start: 11-09-2019 Tobacco smoking status NHIS Smoker (finding) [facility] Start: 1990 Sex Assigned At Female F [facility] Sex Assigned At Sex Assigned At Bir th [facility] Other Evaluation note 08-19-2023 Note Date & [...] of the adrenal nodule with serial imaging. [facility] Other Progress note 11-05-2022 Note Date & Type Note Facility 11-05-2022 Note In person visit Chief complaint: follow up for prior right frontal glioma [place]: 32 y/o woman - she had prior [...] MRI brain w/wout contrast. 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 She had migraines and high blood pressure [...] the MRI is completed. Ravindra Lema MD [facility] Chief complaint Narrative - Reported Note Date & Type Note Facility Chief complaint Narrative - Reported HEIDI DE LA VEGA is being seen for a consultation for. POC Dr. Benson, [facility] Bariatrics- Bariatric sx [facility] DO Work Phone: Evaluation note Note Date & Type Note Facility Evaluation note No assessment information availa 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 Follow-up in 9 months -[facility] DO Work Phone: Summary Purpose Family [...] section and content) DATE CREATED AUTHOR 01/29/2018 [facility] DATE CREATED AUTHOR AUTHOR'S ORGANIZ ATION 03/21/2020 [facility] DATE CREATED AUTHOR AUTHOR'S ORGANIZ ATION 09/12/2021 [facility] DATE CREATED AUTHOR AUTHOR'S ORGANIZ ATION 10/06/2021 [facility] dical Specialist DATE CREATED AUTHOR AUTHOR'S ORGANIZ ATION 06/07/2022 [facility] DATE CREATED AUTHOR AUTHOR'S ORGANIZ ATION 09/19/2022 [facility] DATE CREATED AUTHOR AUTHOR'S ORGANIZ ATION 11/19/2022 [facility] DATE CREATED AUTHOR AUTHOR'S ORGANIZ ATION 12/14/2022 [facility] DATE CREATED AUTHOR AUTHOR'S ORGANIZ ATION 03/19/2023 [facility] DATE CREATED AUTHOR AUTHOR'S ORGANIZ ATION 08/21/2023 [facility] DATE CREATED AUTHOR AUTHOR'S ORGANIZ ATION 08/22/2023 [facility] dical Specialists EPIC Care Teams (unrecognized sec [...] BE BASED ON THE PRIMARY CLINICAL RECORDS. [facility]. provides no warranty or guarantee of the accuracy or completeness of information in this document.
--- NOTE | 2023-08-23 17:16 | ECG_ITS ---
[facility] Test Date: 2023-08-23 Pat Name: HEIDI DE LA VEGA Department: Room: - Gender: Female Simulation Developer: : 1990 Requested By: RISHI BRANDON Order Number: [id number] Reading MD: RISHI BRANDON Measurements Intervals [place] Rate: 53 P: 24 WV: 266 QRS: 16 QRSD: 108 T: 18 QT: 436 QTc: 419 Interpretive Statements 1100 Sinus rhythm 1470 with occasional supraventricular premature complexes 2231 First degree AV block 4068 Nonspecific Twave abnormality 9150 abnormal ECG Compared to ECG 02/18/2020 23:18:46 Intraventricular conduction delay no longer present ST (T wave) deviation no longer present Possible ischemia no longer present Electronically Signed On 08-26-2023 6:56:58 EST by RISHI BRANDON
[2023-08-23] MEDS: POTASSIUM CHLORIDE IN 0.9%NACL 1,000 ML 250 MEQ IV ×2 (17:46→21:49)
[2023-08-23] MEDS: ONDANSETRON PF 4 MG/2 ML VIAL IV (17:47)
[2023-08-23] MEDS: POTASSIUM BICARBONATE/CIT 25 MEQ TABLET EFF 50 MEQ PO (17:47)
--- NOTE | 2023-08-23 17:47 | ED_ITS ---
HPI - General Adult General Chief complaint: Recheck/Abnormal Lab/Rx Stated complaint: LOW POTASSIUM PER PT/BLOOD WORK Time Seen by Provider: 08/23/23 16:38 Source: patient Mode of arrival: walk-in Limitations: no limitations History of Present Illness HPI narrative: Patient is a 34-year-old female who is presenting to the Emergency Room with abnormal labs a potassium. Patient was told to come to the Emergency Room by her director manufacturing engineering from [place], Dr. Ralph. Patient has a wan support specialist in [place] from the [facility] as well, she has director manufacturing engineering and side effects. Patient's PCP is Dr. Kuhn from [place] as well. Patient had gastric bypass surgery at [facility] 12/11/2022. Patient's bariatric surgeon is Dr. Benson. Patient also has a history of a small left adrenal mass that was found last year, and is also being still tested as well to see this related to patient's potassium as well and not. Patient has a outpatient potassium infusion ordered for Saturday and Saturday as an outpatient infusion already. Patient had a potassium that was noted to be 2.0 yesterday and 2.1 today that was ordered on 11:30 this morning. Patient feels weak and fatigued, otherwise no muscle cramping, lightheaded, dizziness, chest pain, shortness of breath, or any other acute complaints. All systems are negative except as noted/marked. All systems reviewed and otherwise negative. . Nurses note and vital signs reviewed and patient is not hypoxic. General: The patient appears well and in no apparent distress. Patient is resting comfortably on cart. Patient is not toxic, lethargic, or listless Skin: Warm, dry, no pallor noted. There is no rash noted. No petechiae, purpura. Head: Normocephalic, atraumatic Eye: Normal conjunctiva, no drainage, EOMI. PERRL Ears, Nose, Mouth, and Throat: oral mucosa is moist. Nares patent. Mouth without vesicles. Cardiovascular: Regular Rate and Rhythm, no murmur, gallop, rub Respiratory: Patient is in no distress, no accessory muscle use, lungs are c lear to auscultation, no wheezing, rales or rhonchi Back: non-tender, no CVA tenderness bilaterally to percussion. No CT LS midline pain GI: soft, obese, no tenderness to palpation, no masses appreciated. No rebound, guarding, or rigidity noted. No flank pain bilateral, No distention Musculoskeletal: Patient has full range of motion of all of the extremities, no motor, sensory, or focal neurological deficits Neurological: A&O x3, normal speech Psychiatric: Cooperative Related Data Allergies Allergy/AdvReac Type Severity Reaction Status Date / Time No Known Drug Allergies Allergy Verified 08/23/23 16:26 PFSH PFSH Social History Smoking status: Current every day smoker Exam Constitutional Vital Signs, click to edit/add: Last Vital Signs Temp 98.5 F 08/23/23 16:22 Pulse 54 L 08/23/23 16:22 Resp 16 08/23/23 16:22 BP 170/98 H 08/23/23 16:22 Pulse Ox 96 08/23/23 16:22 O2 Del Method Room Air 08/23/23 16:22 Course Vital Signs Vital signs: Vital Signs Temperature 98.5 F 08/23/23 16:22 Pulse Rate 54 L 08/23/23 16:22 Respiratory Rate 16 08/23/23 16:22 Blood Pressure 170/98 H 08/23/23 16:22 Pulse Oximetry 96 08/23/23 16:22 Oxygen Delivery Method Room Air 08/23/23 16:22 Temperature 98.5 F 08/23/23 16:22 Pulse Rate 54 L 08/23/23 16:22 Respiratory Rate 16 08/23/23 16:22 Blood Pressure 170/98 H 08/23/23 16:22 Pulse Oximetry 96 08/23/23 16:22 Oxygen Delivery Method Room Air 08/23/23 16:22 Medical Decision Making [facility] Narrative Medical decision making narrative: Patient's repeat potassium today was 2.0. Patient had a 2.1 potassium 11:30 this morning, patient says her potassium yesterday was 2.0. Patient has 2 outpatient infusions ordered for Saturday and Saturday at infusion center in [facility]. Patient's hypokalemia is acute on chronic secondary to gastric bypass surgery, possibly small adrenal mass. Patient has a wan support specialist, director manufacturing engineering, gastric bypass surgeon, and PCP. Patient says she has been admitted to [facility] before for hypokalemia. I did speak to Dr. Fernández, and he will admit patient for observation MedSurg telemetry. Patient was given Zofran, oral potassium, IV potassium, and patient will be admitted for further electrolyte replacement. Magnesium and phosphorus levels were ordered at the request of Dr. Fernández. Patient has been on continuous cardiac monitoring. Critical care time 31 minutes exclusive from separate billable procedures that were performed. The following was considered in the determination of critical care but not limited to the level of medical decision making, intensive cardiac and/or respiratory monitoring, frequent vital sign monitoring, evaluation of laboratory studies, evaluation of radiographic studies, oxygen monitoring, and constant monitoring and speaking to family at bedside Lab Data Labs: Lab Results 08/23/23 Range/Units 17:36 Sodium 147 H (136-145) mmol/L Potassium 2.0 L* (3.5-5.1) mmol/L Chloride 106 (98-107) mmol/L Carbon Dioxide 34.3 H (21.0-32.0) mmol/L Anion Gap 8.7 BUN 16.0 (7.0-18.0) mg/dL Creatinine 0.66 (0.55-1.02) mg/dL Est GFR ( Amer) >60 (>=60) Est GFR (Non-Af Amer) >60 (>=60) BUN/Creatinine Ratio 24.2 Glucose 80 (74-106) mg/dL Calcium 8.4 L (8.5-10.1) mg/dL Phosphorus 3.5 (2.6-4.7) mg/dL Magnesium 2.1 (1.8-2.4) mg/dL Troponin I High Sens 46.2 (4.0-51.3) pg/mL ECG Data Attestation: I personally reviewed and interpreted this ECG as follows: (EKG interpretation. Normal sinus rhythm at 52 beats a minute. Normal axis deviation. No acute ST elevation, no acute ectopy. QTC of 419. NC interval at 266, first-degree AV block. Possible U wave noted.) Discharge Plan Discharge Chief Complaint: Recheck/Abnormal Lab/Rx Clinical Impression: Weakness, Acute hypokalemia Patient Disposition: Admitted as Observation Time of Disposition Decision: 17:20 Condition: Fair
[2023-08-23 17:58] LABS: Anion Gap 8.7; BUN Creatinine Ratio 24.2; Calcium 8.4 mg/dL (8.5-10.1); Carbon Dioxide 34.3 mmol/L (21.0-32.0); Chloride 106 mmol/L (98-107); Estimated GFR (African America >60 (>=60); Estimated GFR (Non-African Ame >60 (>=60); Glucose 80 mg/dL (74-106); Magnesium 2.1 mg/dL (1.8-2.4); Phosphorus 3.5 mg/dL (2.6-4.7); Sodium 147 mmol/L (136-145); Troponin I High Sensitivity 46.2 pg/mL (4.0-51.3)
--- OUTSIDE RECORDS SUMMARY | 2023-08-23 18:53 | XMS_ITS | CCD ---
Author Name Unknown Address [address] [facility] [address] [facility] [address] [place] [address] Organization [facility] Care Team Providers Care Resident Assistant Name Role Phone Spasic, Carmelo Unavailable Unavailable Roryc, Carmelo Unavailable Unavailable IMMANUEL KIRBY Unavailable Unavailable Immanuel Kirby Unavailable Unavailable Unavailable DO Immanuel Kirby Primary Care Provider [phone] NETTIE Prakash Attending Provider REJI Rhodes Attending Provider Manasa Rhodes Admitting Unavailable Immanuel Kirby Primary Care Unavailable Manasa Rhodes Attending Unavailable Immaunel Kirby Primary Care Unavailable Tiarra Prakash Attending [...] Nadia Kirby, Dr. Immanuel Toure Primary Care [facility] darryn Kim, Dr. Hull [facility]ending [facility] Dr[facility] Hull Referring Unavail darryn Kirby, Dr. Immanuel Toure Primary Care Unavaila Zara Nelson Unavailable IMMANUEL KIRBY Primary Care Unavailable VIKKI BALDERRAMA Attending UnavailJUAN Jorge Attending Unavailable MANASA DUNAWAY H Referring Unavailable ТАТЬЯНА RODRIGUEZ Attending Unavailable IMMANUEL KIRBY Referring Unavailable SHEILA LOUIS Attending Unavailable MANASA DUNAWAY H Attending Unavailable TRENTON, MANASA H Referring Unavailable SHEILA LOUIS Attending Unavailable SHEILA LOUIS Attending Unavailable IMMANUEL KIRBY [...] Propensity to adverse reactions to drug (disorder) [facility] Repository Medications Current Medications Medication [...] te Episodic/Chronic Other aftercare (1 source) Other fdc (current) drug therapy; Translations: [OTH LONG-TERM CURRENT DRUG THERAPY] Onset: 09-10-2022 Episodic Results [...] CT ABDOMEN W AND WO IV CONTR Sheeal 07-03-2023 CT ABDOMEN W AND WO IV [...] Painter, DO Normal Not Available [facility]on SARS-CoV-2 (COVID-19) RNA DARWIN+probe Ql (Unsp spec) Not detected Normal NOT DETECTED [facility] Comment on above: Result Comment: This test is not yet approved or cleared by the [place] FDA. When there are no FDA-approved or cleared tests available, and other criteria are met, FDA can make tests available under an emergency access mechanism called an Emergency Use Authorization (EUA). The EUA for this test is supported by the [place] of Health and Human Service's (HHS's) declaration [...] consistent with SARS-CoV-2. Performed By: #### C [facility] #### [facility] [address] [address] [address] Maylin Mckoy Follow-Upon 11-05-2022 Follow-Up [id number] Janine De La Vega 1990 F Date Provider Department Center 11/05/2022 RAVINDRA BUCKLEY ONC DCC Family History Problem Relation Age of Onset Diabetes Mother Thyroid cancer Mother Diabetes Father Hypertension Father Family Status - Relation Status Age at Mother Father Level of Service:26077 PA OFFICE/OUTPATIENT ESTABLISHED MOD MDM 30-39 MIN Normal [facility] DRUG SCREEN RAPID (URINE)on 10-23-2022 AMP Negative Normal NEGATIVE [facility] Comment on above: Performed By: #### D RUGRPD #### [facility] [address] [place] [address] Dr. Maylin Mckoy BAR Negative Normal NEGATIVE [facility] Comment on above: Performed By: #### D RUGRPD #### [facility] [address] [place] [address] Dr. Maylin Mckoy BUP Negative Normal NEGATIVE [facility] Comment on above: Performed By: #### D RUGRPD #### [facility] [address] [place] [address] Dr. Maylin Mckoy BZO Negative Normal NEGATIVE [facility] Comment on above: Performed By: #### D RUGRPD #### [facility] [address] [place] [address] Dr. Maylin Mckoy DRE Negative Normal NEGATIVE [facility] Comment on above: Performed By: #### D RUGRPD #### [facility] [address] [place] [address] Dr. Maylin Mckoy CUT-OFFS SEE BELOW Normal [facility] Comment on above: Result Comment: AMP [...] ng/mL Performed By: #### D RUGRPD #### [facility] [address] [place] [address] Dr. Maylin Mckoy DRUG CUT HEADER DRUG CLASS TEST SYST EM CUT-OFF CONCENTRATIONS ARE FOLLOWS: Normal [facility] Comment on above: Performed By: #### D RUGRPD #### [facility] [address] [address] [address] Maylin Mckoy mAMP Negative Normal NEGATIVE [facility] Comment on above: Performed By: #### D RUGRPD #### [facility] [address] [address] [address] Maylin Mckoy MTD Negative Normal NEGATIVE [facility] Comment on above: Performed By: #### D RUGRPD #### [facility] [address] [address] [address] Maylin Mckoy OPI Negative Normal NEGATIVE [facility] Comment on above: Performed By: #### D RUGRPD #### [facility] [address] [address] [address] Maylin Mckoy OXY Negative Normal NEGATIVE [facility] Comment on above: Performed By: #### D RUGRPD #### [facility] [address] [place] [address] Dr. Maylin Mckoy PCP Negative Normal NEGATIVE [facility] Comment on above: Performed By: #### D RUGRPD #### [facility] [address] [place] [address] Dr. Maylin Mckoy PPX Negative Normal NEGATIVE [facility] Comment on above: Performed By: #### D RUGRPD #### [facility] [address] [place] [address] Dr. Maylin Mckoy TCA Negative Normal NEGATIVE [facility] Comment on above: Performed By: #### D RUGRPD #### [facility] [address] [place] [address] Dr. Maylin Mckoy THC Negative Normal NEGATIVE [facility] Comment on above: Performed By: #### D RUGRPD #### [facility] [address] [place] [address] Dr. Maylin Mckoy MR BRAIN W AND [...] of ventriculomegaly. Electronically signed: Frank Lara. Normal [facility] Potassiumon 09-13-2022 Potassium [Moles/Vol] 3.3 mmol/L Low 3.5-5.1 [facility] Comment on above: Order Comment: Reaso n for Exam Plantar fasciitis;Encounter for preoperative assessment Result Comment: PERF ORMED BY: [place] [address] PATHOLOGIST INSURANCE LOSS ADJUSTER MARY ANN LAL M.D. Performed By: #### K #### [address] Serum or plasma potassium me asurement (moles/volume)Ordered By: Manasa Rhodes on 09-13-2022 Potassium [Moles/Vol] 3.3 mmol/L 3.5-5.1 [facility] Office Visiton 09-10-2022 Follow-up visit [id number] Janine De La Vega 1990 F Date Provider Department Center 09/10/2022 RAVINDRA BUCKLEY DCC ONC DCC Family History Problem Relation Age of Onset Diabetes Mother Thyroid cancer Mother Diabetes Father Hypertension Father Family Status - Relation Status Age at Mother Father Level of Service:18633 PA OFFICE/OUTPATIENT ESTABLISHED MOD MDM 30-39 MIN Reason for Visit and Comments: Consult [484] - Past patient, coming back today to have imaging reordered. Normal [facility] Orders Onlyon 09-10-2022 Orders Only [id number] Janine De La Vega Hermes 1990 F Date Provider Department Center 09/10/2022 MONICA DOMINGUEZ ONC [facility] Family History Problem Relation Age of Onset Diabetes Mother Thyroid cancer Mother Diabetes Father Hypertension Father Family Status - Relation Status Age at Mother Father Normal [facility] MAGNESIUMon 09-07-2022 Magnesium [Mass/Vol] 1.9 mg/dL Normal 1.8-2.4 [facility] Comment on above: Performed By: #### M Court PHOS, BMP #### [facility] [address] [place] [address] Dr. Maylin Mckoy PHOSPHORUSon 09-07-2022 Phosphate [Mass/Vol] 3.7 mg/dL Normal 2.6-4.7 [facility] Comment on above: Performed By: #### Jose F Yun PHOS, BMP #### [facility] [address] [place] [address] Dr. Maylin Mckoy PROF CHEM 8 (BAS METB)on Anion gap [Moles/Vol] 14.3 mmol/L Normal [facility] Comment on above: Performed By: #### Jose F Yun PHOS, BMP #### [facility] [address] [address] [address] Maylin Mckoy Calcium [Mass/Vol] 9.3 mg/dL Normal 8.5-10.1 [facility] Comment on above: Performed By: #### M Court PHOS, BMP #### [facility] [address] [address] [address] Maylin Mckoy Chloride [Moles/Vol] 105 mmol/L Normal 98-107 [facility] Comment on above: Performed By: #### M Court PHOS, BMP #### [facility] [address] [address] [address] Maylin Mckoy CO2 [Moles/Vol] 31.0 mmol/L Normal 21.0-32.0 [facility] Comment on above: Performed By: #### M G, PHOS, BMP #### [facility] [address] [address] [address] Maylin Mckoy Creatinine [Mass/Vol] 0.90 mg/dL Normal 0.55-1.02 [facility] Comment on above: Performed By: #### M G, PHOS, BMP #### [facility] [address] [address] [address] Maylin Mckoy EGFR-AF COLOMBIAN >60 Normal >=60 [facility] Comment on above: Performed By: #### M G, PHOS, BMP #### [facility] [address] [address] [address] Maylin Mckoy EGFR-NON AF COLOMBIAN >60 Normal >=60 [facility] Comment on above: Performed By: #### M G, PHOS, BMP #### [facility] [address] [address] [address] Maylin Mckoy Glucose [Mass/Vol] 158 mg/dL Critically high 74-106 [facility] Comment on above: Performed By: #### M G, PHOS, BMP #### [facility] [address] [address] [address] Maylin Mckoy Potassium [Moles/Vol] 2.3 mmol/L Critically low 3.5-5.1 [facility] Comment on above: Performed By: #### M G, PHOS, BMP #### [facility] [address] [address] [address] Maylin Mckoy Sodium [Moles/Vol] 147 mmol/L Critically high 136-145 [facility] Comment on above: Performed By: #### M G, PHOS, BMP #### [facility] [address] [address] [address] Maylin Mckoy Urea nitrogen [Mass/Vol] 7.0 mg/dL Normal 7.0-18.0 [facility] Comment on above: Performed By: #### M Court PHOS, BMP #### [facility] [address] [place], [place] [address] Dr. Maylin Mckoy Urea nitrogen/Creatinine [Mass ratio] 7.8 mg/mg Normal [facility] Comment on above: Performed By: #### M Court, PHOS, BMP #### [facility] [address] [address] [address] Maylin Mckoy Potassiumon 09-07-2022 Potassium [Moles/Vol] 2.4 mmol/L Off scale low 3.5-5.1 [facility] Comment on above: Result Comment: Resu lts called at 0807 on 09/07/22 PERFORMED BY: [place] [address] PATHOLOGIST INSURANCE LOSS ADJUSTER MARY ANN LAL M.D. Performed By: #### K #### [address] Serum or plasma potassium me asurement (moles/volume)Ordered By: NON STAFF on 09-07-2022 Potassium [Moles/Vol] 2.4 mmol/L 3.5-5.1 [facility] Comment on above: Results calledat 080 [...] Former smoker Tobacco Use Screening; Status:Complete; Done: [id number] Patient Instructions Please bring all medicines, vitamins, [...] seen for a consultation for. DEDE Benson, [facility] Bariatrics- Bariatric sx History of Present [...] Vital Signs Recorded: 06Jun2022 04:17PMRecorded: 06Jun2022 03:45PM [id number], LUE, Sitting Zlpkcgvuq74227, LUE, Sitting Heart Rate71, Apical Height5 ft 7 in Mdxmle207 lb BMI Pkrkoojpcf80.77 kg/m2 BSA Calculated2.42 Tobacco Useb) No PHQ-2 [...] to auscul (more content not included)... Normal [employer] Tobacco Screening.on 022 Adult depression screening assessment No -[facility] 250 DO Work Phone: Tobacco use status CPHS b) No M -[facility] 250 DO Work Phone: DHEA SERUMon 01-12-2022 Dehydroepiandrosterone (DHEA) 287 ng/dL Normal 31-701 [facility] Comment on above: Result Comment: Age [...] 701 Performed By: #### D STAR. #### [facility] [address] [address] [address] Maylin Mckoy TESTOSTERONE, FREE,DIRECT, T OTALon 01-06-2022 Free Testosterone(Direct) 1.6 pg/mL Normal 0.0-4.2 [facility] Comment on above: Result Comment: Perf ormed at: BN Performed By: #### T ESTFRD #### [facility] [address] [place] [address] Dr. Maylin Mckoy Testosterone [Mass/Vol] 17 ng/dL Normal 13-71 [facility] Comment on above: Result Comment: Perf ormed at: CB Performed By: #### T ESTFRD #### [facility] [address] [place] [address] Dr. Maylin Mckoy INSULINon 01-05-2022 Insulin 13.2 uIU/mL Normal 2.6-24.9 [facility] Comment on above: Performed By: #### I NSULIN #### [facility] [address] [place] [address] Dr. Maylin Mckoy GLYCOHEMOGLOBIN A1Con 2021 ADA RECOMMENDATION SEE BELOW Normal [facility] Comment on above: Result Comment: ADA RECOMMENDED LIMIT 4.0 - 6.0 ADA THERAPEUTIC TARGET < 7.0 ACTION SUGGESTED > 7.0 Performed By: #### A 1C #### [facility] [address] [place] [address] Dr. Maylin Mckoy Glucose [Mass/Vol] 146 mg/dL Normal [facility] Comment on above: Performed By: #### A 1C #### [facility] [address] [place] [address] Dr. Maylin Mckoy HbA1c (Bld) [Mass fraction] 6.7 % Critically high 4.5-6.2 [facility] Comment on above: Performed By: #### A 1C #### [facility] [address] [place] [address] Dr. Maylin Mckoy TSHon 01-04-2022 TSH 3.214 uIU/mL Normal 0.358-3.74 0 [facility] Comment on above: Performed By: #### T SH #### [facility] [address] [place] [address] Dr. Maylin Mckoy TSH RANGE SEE BELOW Normal [facility] Comment on above: Result Comment: <0.3 4 UIU/ml HYPERTHYROID 0.34-5.60 UIU/ml EUTHYROID >5.60 UIU/ml HYPOTHYROID Performed By: #### T SH #### [facility] [address] [place] [address] Dr. Maylin Mckoy Potassiumon 10-05-2021 Potassium [Moles/Vol] 3.3 mmol/L Low 3.5-5.5 [facility] Client Care Specialist Comment on above: Performed By: #### K #### [facility] [address] [place], [place] [id number] [place] 09-11-2021 Consent [id number]#[id number]:127 Normal [facility] Registrationon 09-11-2021 Registration [id number]#1.00CD:127 Normal [facility] Basic Metabolic Panelon 08-06 Anion gap [Moles/Vol] 21 mmol/L High 12-20 [facility] Client Care Specialist Comment on above: Result Comment: Effe ctive 08/10/2019 reference range changed. Performed By: #### B MP #### [facility] [address] [place] [id number] Calcium [Mass/Vol] 9.3 mg/dL Normal 8.6-10.2 Sydnie crespo [place] Client Care Specialist Comment on above: Performed By: #### B MP #### [facility] [address] [place], [place] [id number] Chloride [Moles/Vol] 106 mmol/L Normal 98-107 [facility] Comment on above: Performed By: #### B MP #### [facility] [address] [place], [place] [id number] CO2 [Moles/Vol] 20 mmol/L Normal 20-31 [facility] Comment on above: Performed By: #### B MP #### [facility] [address] [place], [place] [id number] Creatinine [Mass/Vol] 0.7 mg/dL Normal 0.6-1.4 [facility] Comment on above: Performed By: #### B MP #### [facility] [address] [place], [place] [id number] eGFRAA 115 mL/min/1.73m2 Normal >60 [facility] Specialist Comment on above: Performed By: #### B MP #### [facility] [address] [place], [place] [id number] eGFRNAA 95 mL/min/1.73m2 Normal >60 [facility] Comment on above: Performed By: #### B MP #### [facility] [address] [place], [place] [id number] Glucose [Mass/Vol] 184 mg/dL High 65-99 [facility] Specialist Comment on above: Result Comment: For FASTING Glucose --- ADA reference ranges: Normal 65-99 mg/dl Prediabetes 100-125 Diabetes >/= 126 Performed By: #### B MP #### [facility] [address] [place], [place] [id number] Potassium [Moles/Vol] 2.8 mmol/L Critically low 3.5-5.5 [facility] Specialist Comment on above: Result Comment: Crit ical result called to Dr Rhodes/Rylee at 09/01/2021 11:58 AM by Cyndie Montanez) Performed By: #### B MP #### [facility] [address] [place], [place] [id number] Sodium [Moles/Vol] 144 mmol/L Normal 135-146 [facility] Client Care Specialist Comment on above: Performed By: #### B MP #### [facility] [address] [place], [place] [id number] Urea nitrogen [Mass/Vol] 10 mg/dL Normal 7-25 [facility] Client Care Specialist Comment on above: Performed By: #### B #### [facility] [address] [place], [place] [id number] [place] 08-17-2021 Consent [id number]#[id number]:127 Normal [facility] Registrationon 08-17-2021 Registration [id number]#[id number]:127 Normal [facility] Registrationon 04-04-2021 Registration [id number]#1.00CD:127 Normal [facility] [place] 04-03-2021 Consent [id number]#1.00CD:127 Normal [facility] MRI BRAIN W WO CONTRASTon MRI BRAIN W WO CONTRAST [facility] Department of Radiology [address] [place] [id number] Patient Name: HEIDI DE LA VEGA : 1990 Sex: F Age: Race: White Pt. Location: 29 Patient Status: O Ordered Date: 02/04/2020 2:05:00 PM Completed Date: 03/17/2020 10:13 AM Requesting Provider: GANGA RODRIGUES Attending Provider: GANGA RODRIGUES Report Copy To: IMMANUEL KIRBY Signs & Symptoms: C71.9 Malignant neoplasm of brain, unspecified I10 History: Nita PERES AUTH [id number] VALID 03/04-04/03/2020 [id number] KW Comments: , 1p-19q co-deleted oligodendroglioma of [...] reports Electronically signed: Shawn Martins. Transcribed by: [email or web address], User Resident: JONATHAN ARCE Electronically Signed by: SHAWN MARTINS @ 03/17/2020 12:45 PM I personally read this/these film(s) with this resident Normal [facility] Comment on above: Order Comment: , [...] WO CONTRASTon MRI BRAIN W WO CONTRAST [facility] Department of Radiology [address] [place] [id number] Patient Name: HEIDI DE LA VEGA : 1990 Sex: F Age: Race: White Pt. 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 Transcribed by: [email or web address], User Resident: DANDY HUFFMAN Electronically Signed by: JIM JASON @ 09/11/2019 04:35 PM I personally read this/these film(s) with this resident Normal [facility] Comment on above: Order Comment: , [...] Summaryon 01-29-2018 Coding Summary CODING DATE: [address] [facility] STATUS: Home PAYOR: Medicaid HMO ADMIT DX: [...] Swanson' Date Saved: 01/29/2018 03:42 pm Normal [facility] ED Clinical Summaryon 2017 ED Clinical Summary [facility] ? Urgent [address] [place] [address] clinical SummaryPERSON INFORMATIONName: HEIDI DE LA VEGA Age: 27 Years Sex: FEMALEDOB: [birth year] MRN: Acct#:Visit Reason: UC - Rash; UC - Rash; RASH/ BILAT LEGS Arrival: 01/23/18 10:43:00 Discharge: 01/23/18 11:18:00LOS: 000 00:35 Check In: 01/23/18 10:43:00 Checkout: 01/23/18 11:18:00Address:[address] [place] [id number]: Immanuel Kirby INFORMATIONProvider Role Assigned UnassignedSpasic Carmelo ASHRAF ED PA 01/23/18 10:48:23Cristal Dunaway ED Nurse 01/23/18 10:53:41VITALS INFORMATIONVital Sign Triage LatestTemperature TympanicTemperature Temporal ArteryPulse Rate 79 bpm 79 bpmO2 Sat 97 % 97 %Respiratory Rate 16 br/min 16 br/minBlood Pressure 162 mmHg/98 mmHg 162 mmHg/98 mmHgMEDICAL INFORMATIONMedications Given:Allergy Information:No Known Medication AllergiesPHYSICIAN DOCUMENTATIONDISCHARGE INFORMATION:Discharge Disposition: HomeDischarge Location:PATIENT EDUCATION INFORMATIONInstructions: Poison Devers Dermatitis, Ieel-ah-BaqmZktpdc-Up:With : Address: When:Immanuel Kirby [facility] [address], [address] [place] [address] Business (1)Comments:Begin on the prednisone 2 tablets daily for 5 days take with food to avoid gastric refluxBegin on the Claritin 1 tab daily for the next 2 weeks Follow-up with primary care provider in 3-5 days sooner if worse.DIAGNOSIS:urushiol induced contact dermatitisPatient Understands: Yes - Patient/family/caregiver verbalizes understanding of instructions givenComment: [facility] - Physicianon 2017 ED Note - Physician Patient: HONORIO DE LA VEGA : 27 years Sex: FEMALE : [birth year]Associated Diagnoses: urushiol induced contact dermatitisAuthor: [place] InformationTime seen: Date & time 01/23/18 11:01:00.History source: Patient.Arrival mode: Private vehicle.History limitation: None.Additional information: Chief Complaint from Nursing Triage Note : Chief Jqzxkhshw92/21/18 10:45 EDT Chief Complaint 2-3 days possible [...] been selected or recorded..Social history:Social & Psychosocial LvtjnbToxrwuy39/21/2018 Number used per day: 10.Problem list:Active Problems (1)Smoker.Physical Examination Vital UnjbhTtlzefugrzuu53/21/18 10:45 EDT Height 170.18 cm Weight 122.47 [...] was given the following educational materials: Poison Devers Dermatitis, Ubpk-ul-Ufpy.Follow up with: Immanuel Kirby Begin on the prednisone 2 tablets daily [...] on: 01/23/2018 11:28 EDT] [place] Normal [facility] ED Patient Summaryon 018 ED Patient Summary [facility] ? Urgent [address] [place] [address] pATIENT DISCHARGE INSTRUCTIONSPatient InformationName: HEIDI DE LA VEGA Age: 27 YearsDate of : [birth year]MRN: [id number] For Visit: UC - Rash; UC - Rash; RASH/ BILAT LEGSArrival Time: 01/23/18 10:43:00[facility]: [facility] Physician: Immanuel Kirby Physician: Tonja LakerCenment:Patient EducationWith: Address: When:Immanuel Kirby [facility] [address] [place], [place] [id number] Business (1)Comments:Begin on the prednisone 2 tablets daily for 5 days take with food to avoid gastric refluxBegin on the Claritin 1 tab daily for the next 2 weeks Follow-up with primary care provider in 3-5 days sooner if worse.Poison Devers DermatitisPoison oak dermatitis is redness and soreness [...] instructions at home:General instructions? Take or apply cwnj-dwd-dzfjabm and prescription medicines only as told by [...] Reviewed: 12/28/2015[employer] Patient Education ? 2018 [employer].Medication Information:The exam and treatment you received today in the [facility] Emergency Department were for an urgent problem and are not intended as complete care. It is important for you to follow up with a doctor, nurse practitioner, or physician?s regulatory assistant for ongoing care. If your symptoms [...] number so we can reach you if necessary.[facility] Emergency Department has provided you with a complete list of medications post discharge. Please inform your primary care nurse/provider of your visit and for further instruction [...] InformationVisit Diagnosis:Diagnoses This Visit UC - Rash ([id number]) UC - Rash ([id number]) urushiol induced contact dermatitisIf you received any [...] Weight: 122.47 kg Body Mass Index: 42.29 kg/t7Mrpytgtf List:Problem Onset CommentsSmokerMajor Tests and Procedures:The following [...] the Answerwww.cdc.gov/getsmart GET SMART Know When Antibiotics [place] Department of Health and Human ServicesCenters for Disease Control and Prevention April 2014 Normal [facility] [address]18 Urgent Care Record [facility] ? [address] [place] [address] pATIENT DISCHARGE INSTRUCTIONSPatient InformationName: HEIDI DE LA VEGA Age: 27 YearsDate of : 89MRN: [id number] Visit: UC - Rash; UC - Rash; RASH/ BILAT LEGSArrival Time: 01/23/18 10:43:00[facility]: [facility] Phys[facility]: Immanuel Kirby Physician: Tojna LakerComment:Visit Diagnosis:Diagnoses This Visit UC - Rash ([id number]) UC - Rash ([id number]) urushiol induced contact dermatitisIf you received any [...] documentsWith: Address: When:[address] [place] [address] Business (1)Comments:Begin on the prednisone 2 tablets daily for 5 days take with food to avoid gastric refluxBegin on the Claritin 1 tab daily for the next 2 weeks Follow-up with primary care provider in 3-5 days sooner if worse.Medication Information:The exam and treatment you received today in the [facility] were for an urgent problem and are not intended as complete care. It is important for you to follow up with a doctor, nurse practitioner, or physician?s regulatory assistant for ongoing care. If your symptoms [...] number so we can reach you if necessary.[facility] has provided you with a complete list of medications post discharge. Please inform your primary care nurse/provider of your visit and for further instruction [...] Weight: 122.47 kg Body Mass Index: 42.29 kg/n9Tgxkmxlk List:Problem Onset CommentsSmoker Patient EducationPoison Devers DermatitisPoison oak dermatitis is redness and soreness [...] instructions at home:General instructions? Take or apply opeb-sis-tznhfwn and prescription medicines only as told by [...] Reviewed: 12/28/2015[employer] Patient Education ? 2018 [employer]. Viruses or BacteriaWhat?s got you sick?Antibiotics only [...] for Disease Control and Prevention April 2014 [facility] Vital Signs Date Time Vital Sign Value Performing Clinician Facility 08-19-2023 16:00-0500 Body height 170.18 cm Zara Ramo Other [facility] Other 08-19-2023 16:00-0500 Body mass index (BMI) [Ratio] 31.76 kg/m2 Zara Ramo Other [facility] Other 08-19-2023 16:00-0500 Body temperature 97.5 [degF] Zara Ramo Other [facility] Other 08-19-2023 16:00-0500 Body weight 91.99 kg Zara Ramo Other [facility] Other 08-19-2023 16:00-0500 Diastolic blood pressure 100 mm[Hg] Zara Ramo Other [facility] Other 08-19-2023 16:00-0500 Respiratory rate 18 /min Zara Ramo Other [facility] Other 08-19-2023 16:00-0500 SaO2% (BldA) [Mass fraction] 100 % Zara Ramo Other [facility] Other 08-19-2023 16:00-0500 Systolic blood pressure 170 mm[Hg] Zara Ramo Other [facility] Other 06-06-2022 16:17-0400 Diastolic blood pressure 89 mm[Hg] Immanuel Kirby [facility] Work Phone: 06-06-2022 16:17-0400 Systolic blood pressure 138 mm[Hg] Immanuel Kirby [facility]: [facility] Work Phone: 06-06-2022 15:45-0400 Body height 170.18 cm Immanuel Kirby [facility] DO Work Phone: 06-06-2022 15:45-0400 Body mass index (BMI) [Ratio] 47.77 kg/m2 Immanuel Kirby Work Phone: [facility] [address] DO Work Phone: 06-06-2022 15:45-0400 Body surface area Derived from formula 2.42 m2 Immanuel Kirby Work Phone: [facility] [address] DO Work Phone: 06-06-2022 15:45-0400 Body weight 138.35 kg Immanuel Kirby Work Phone: [facility] DO Work Phone: 06-06-2022 15:45-0400 Diastolic blood pressure 102 mm[Hg] Immanuel Joe Bam Work Phone: -[facility] [address] DO Work Phone: 06-06-2022 15:45-0400 Heart rate 71 /min Immanuel Mcgrather Work Phone: -[facility] [address] DO Work Phone: 06-06-2022 15:45-0400 Systolic blood pressure 160 mm[Hg] Immanuel Kirby Work Phone: -[facility] [address] DO Work Phone: Encounters Encounter Date Encounter Type Care Provider Facility Start: 08-22-2023 End: 08-22-2023 ambulatory SHEILA LOUIS Not Available Start: 08-21-2023 ambulatory MANASA DUNAWAY Not A [facility] Start: 08-20-2023 End: 08-20-2023 ambulatory IMMANUEL KIRBY Facility:[facility] Start: 08-19-2023 End: 08-19-2023 ambulatory Zara Ramo Other [employer] [employer] Other Start: 08-19-2023 Office outpatient ne w [...] for preprocedural laboratory examination DR DOCTOR FARMER [facility] Start: 12-07-2022 End: 12-08-[address] IMMANUEL KIRBY Facility:[facility] Start: 12-07-2022 End: 12-08-2022 Encounter for preprocedural laboratory examination DR IMMANUEL KIRBY Facility:[facility] Start: 11-05-2022 ambulatory RAVINDRA LEMA [facility] Start: 10-23-2022 End: 10-24-2022 ambulatory ZAKIA BENSON Facility:[facility] Start: 10-22-2022 End: 10-23-2022 ambulatory RAVINDRA [facility] Start: 09-13-2022 End: 09-13-2022 ambulatory Manasa Rohdes Facility:[facility] Start: 09-13-2022 Encounter for other preprocedural examination Manasa Meagan [facility] Start: 09-13-2022 End: 09-13-2022 ambulatory DO Immanuel Kirby Work Phone: [facility] Work Phone: Start: 09-13-2022 End: 09-13-2022 Patient encounter procedure DO Immanuel Kirby Work Phone: [facility] [place] Work Phone: Start: 09-10-2022 End: 09-10-2022 ambulatory RAVINDRA LEMA [facility] Start: 09-07-2022 End: 09-08-[address] TE DARNELL . Facility:[facility] Start: 09-07-2022 End: 09-07-[address] TE Brannon Facility:[facility] Start: 09-07-2022 End: 09-07-2022 ambulatory Immanuel Kirby Facility:[facility] Start: 09-07-2022 End: 09-07-2022 ambulatory DO Immanuel Kirby Work Phone: [facility] Work Phone: Start: 09-07-2022 End: 09-07-2022 Patient encounter procedure DO Immanuel Kirby Work Phone: [facility] [place] Work Phone: Start: 08-07-2022 Rx Renewal Immanuel Mcgrather Work Phone: [facility] DO Work Phone: Start: 06-06-2022 Office outpatient vi sit 25 minutes Immanuel Mcgrather Work Phone: [facility] DO Work Phone: Start: 06-06-[address] Della Kim Facility:[id number] Start: 01-04-2022 End: 01-05-[address] BHASKAR ANGELES Facility:[facility] Start: 01-23-2018 End: 01-25-2018 Ambulatory Carmelo Sparandy Facility:[facility] Patient encounter status Immanuel Kirby Work Phone: [facility] DO Work Phone: Plan of Treatment Date Care Activity Detail Author Start: 03-14-2023 FUV, Provider: Della Kim, Status: Pen, Time: 1:30 PM FUV, Provider: Della Kim, Status: Andrei, Time: 1:30 PM [facility] DO Work Phone: Payers Date Payer Category Payer Self-pay [id number] 1991 Unknown [id number] [id number] 1991 Unknown [id number] 2.16.840.1.461991.3.579.2.593 1991 Unknown [id number] 2.16.840.1.338005.3.579.2.593 1991 Unknown [id number] 2.16.840.1.966795.3.579.2.593 1991 Unknown [id number] 2.16.840.1.165422.3.579.2.593 1991 Unknown [id number] 2.16.840.1.952771.3.579.2.356 1991 Unknown [id number] 2.16.840.1.108527.3.579.2.356 1991 Unknown [id number] 2.16.840.1.718719.3.579.2.1259 1991 Unknown [id number] 2.16.840.1.009203.3.579.2.1259 1991 Unknown [id number] 2.16.840.1.930109.3.579.2.1259 1991 Unknown [id number] 2.16.840.1.170098.3.579.2.1259 1991 Unknown [id number] 2.16.840.1.434717.3.579.2.1259 1991 Unknown [id number] 2.16.840.1.207234.3.579.2.1259 1991 Unknown [id number] 2.16.840.1.335501.3.579.2.1259 1991 Unknown [id number] 2.16.840.1.378171.3.579.2.1259 1991 Unknown [id number] 2.16.840.1.441515.3.579.2.1259 1991 Unknown [id number] 2.16.840.1.175764.3.579.2.1259 1991 Unknown [id number] 2.16.840.1.016836.3.579.2.1259 1991 Unknown [id number] 2.16.840.1.896721.3.579.2.1259 1959 Medicaid [id number] Unknown [facility] [employer] Unknown [facility] [id number] Unknown [id number] 2.16.840.1.858074.3.579.2.531 Unknown [id number] 2.16.840.1.825148.3.579.2.531 Social History Date Type Detail Facility No illicit drug use No illicit drug use [place] [address] DO Work Phone: Comment on above: quit 2021; Start: 11-09-2019 Tobacco smoking status NVIS Smoker (finding) [facility] Start: 1990 Sex Assigned At Female F [facility] Sex Assigned At Sex Assigned At [facility] Other Evaluation note 08-19-2023 Note Date & Type Note Facility 08-19-2023 Evaluation note Encounter Date Diagnosis Assessment Notes Aug, Hypokalemia (ICD-10 - E87.6) It was a pleasure to see Mrs. De La Vega in our office for evaluation and management of hypokalemia. As you know she has a longstanding hypokalemia and metabolic alkalosis and hypertension. Differential diagnoses are broad and include primary hyperaldosteronism, Nucla syndrome, Gettleman syndrome and Bartter syndrome. I [...] of the adrenal nodule with serial imaging. [facility] Other Progress note 11-05-2022 Note Date & Type Note Facility 11-05-2022 Note In person visit Chief complaint: follow up for prior right frontal glioma [place]: 32 y/o woman - she had prior [...] MRI brain w/wout contrast. Ravindra Lema MD [facility] Progress note 09-10-2022 Note Date & Type Note Facility 09-10-2022 Note In person visit Chief complaint: known olidodendroglioma [place]: 32 y/o Left handed - she does not work. 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 She had migraines and high blood pressure [...] the MRI is completed. Ravindra Lema MD [facility] Chief complaint Narrative - Reported Note Date & Type Note Facility Chief complaint Narrative - Reported HEIDI DE LA VEGA is being seen for a consultation for. POC Dr. 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 CURRENT USE OF INSULIN Medical History MICROSYTIC ANEMIA Medical History BIPOLAR AFFECTIVE DI SORDER, CURRENTLY DEPRESSED, MILD Medical History CANNABIS ABUSE Medical History MALIGNANT NEOPLASM OF BRAIN Surgical History brain tumor removed malignant 0 Surgical History DILATION AND CURETTA GE ESOPHAGOGASTRODUODENOSCOPY Surgical History INGROWN TOENAIL Surgical History ANKLE SCOPE PLANTAR FASCIOTOMY 2016 Surgical History RIGHT FRONTAL LOBEECTOMY 2018 Surgical History ENDOSCOPIC PLANTAR FASCIOTOMY 2 023 Surgical History GASTRIC BYPASS 12/2022 Hospitalization History SEE ABOVE [facility] Other History of Present illness Narrative Note [...] medication 9 4. Follow-up in 9 months -[facility] DO Work Phone: Summary Purpose Family [...] section and content) DATE CREATED AUTHOR 01/29/2018 [facility] DATE CREATED AUTHOR AUTHOR'S ORGANIZ ATION 03/21/2020 [facility] DATE CREATED AUTHOR AUTHOR'S ORGANIZ ATION 09/12/2021 [facility] DATE CREATED AUTHOR AUTHOR'S ORGANIZ ATION 10/06/2021 [facility] DATE CREATED AUTHOR AUTHOR'S ORGANIZ ATION 06/07/2022 [facility] DATE CREATED AUTHOR AUTHOR'S ORGANIZ ATION 09/19/2022 [facility] DATE CREATED AUTHOR AUTHOR'S ORGANIZ ATION 11/19/2022 [facility] DATE CREATED AUTHOR AUTHOR'S ORGANIZ ATION 12/14/2022 [facility] DATE CREATED AUTHOR AUTHOR'S ORGANIZ ATION 03/19/2023 [facility] DATE CREATED AUTHOR AUTHOR'S ORGANIZ ATION 08/21/[address] [facility] DATE CREATED AUTHOR AUTHOR'S ORGANIZ ATION 08/23/2023 [facility] [employer] Care Teams (unrecognized sec tion and content) Team Status: Inactive Member Role Status Dates Immanuel Kirby DO Primary Care Provider Active NETTIE Kramer Attending Provider Active Team Status: Active Member Role Status Dates Immanuel Kirby DO Primary Care Provider Active Team Status: Inactive Member Role Status Dates Immanuel Kirby Primary Care Provider Active Manasa Rhodes DPM [...] BE BASED ON THE PRIMARY CLINICAL RECORDS. [facility]. provides no warranty or guarantee of the accuracy or completeness of information in this document.
[2023-08-23] MEDS: POTASSIUM CHLORIDE 10 MEQ ER TABLET 40 MEQ PO (20:31)
[2023-08-23] MEDS: ENOXAPARIN SODIUM 40 MG/0.4 ML SYRINGE SUBQ (20:31)
[2023-08-23 23:32] LABS: Anion Gap 7.8; Calcium 7.9 mg/dL (8.5-10.1); Carbon Dioxide 31.9 mmol/L (21.0-32.0); Chloride 110 mmol/L (98-107); Estimated GFR (African America >60 (>=60); Estimated GFR (Non-African Ame >60 (>=60); Glucose 119 mg/dL (74-106); Sodium 147 mmol/L (136-145)
[2023-08-23 23:36] LABS: Potassium 2.7 mmol/L (3.5-5.1)
[2023-08-24] VITALS (11 sets, daily range): BP systolic 158; BP diastolic 82–86; PULSE 45–60; RESP 16; TEMP 36.5; O2SAT 96–99
[2023-08-24] MEDS: ONDANSETRON PF 4 MG/2 ML VIAL IV (00:21)
[2023-08-24] MEDS: POTASSIUM CHLORIDE IN 0.9%NACL 1,000 ML 250 MEQ IV ×3 (01:48→09:33)
[2023-08-24 05:45] LABS: Basophils Absolute Auto 0.1 10^3/uL (0.0-0.1); Basophils Percent Auto 0.7 % (0.2-2.0); Eosinophils Absolute Auto 0.3 10^3/uL (0.0-0.7); Hematocrit 36.2 % (36.0-48.0); Hemoglobin 11.9 g/dL (12.0-16.0); Immature Granulocytes Abs Auto 0.01 10^3/uL (0.00-0.03); Immature Granulocytes Pct Auto 0.1 % (0.0-0.5); Lymphocytes Absolute Auto 2.5 10^3/uL (1.2-3.8); Lymphocytes Percent Auto 36.3 % (20.5-60.0); Mean Corpuscular HGB Conc 32.9 g/dL (29.9-35.2); Mean Corpuscular Hemoglobin 29.5 pg (26.7-34.0); Mean Corpuscular Volume 89.6 fL (81.0-99.0); Mean Platelet Volume 12.5 fL (9.5-13.5); Monocytes Absolute Auto 0.5 10^3/uL (0.3-0.8); Monocytes Percent Auto 6.9 % (1.7-12.0); Neutrophils Absolute Auto 3.6 10^3/uL (1.4-6.5); Platelet Count 152 10^3/uL (150-450); Red Blood Count 4.04 10^6/uL (4.20-5.40); Red Cell Distribution Width 14.6 % (11.0-15.0)
[2023-08-24 06:07] LABS: Alanine Aminotransferase 28 U/L (14-59); Albumin Level 2.9 g/dL (3.4-5.0); Alkaline Phosphatase 105 U/L (46-116); Anion Gap 10.6; Aspartate Amino Transferase 19 U/L (15-37); BUN Creatinine Ratio 16.4; Bilirubin Total 0.9 mg/dL (0.2-1.0); Calcium 7.9 mg/dL (8.5-10.1); Carbon Dioxide 29.9 mmol/L (21.0-32.0); Chloride 109 mmol/L (98-107); Estimated GFR (African America >60 (>=60); Estimated GFR (Non-African Ame >60 (>=60); Globulin 2.8 g/dL; Glucose 73 mg/dL (74-106); Sodium 147 mmol/L (136-145); Total Protein 5.7 g/dL (6.4-8.2)
[2023-08-24 06:14] LABS: Potassium 2.5 mmol/L (3.5-5.1)
[2023-08-24] MEDS: POTASSIUM CHLORIDE 40 MEQ in 0.9 % SODIUM CHLORIDE 250 ML 67.5 MEQ IV (11:03)
--- NOTE | 2023-08-24 12:32 | P.HP_ITS ---
H&P: HPI History of Present Illness Chief complaint: LOW POTASSIUM PER PT/BLOOD WORK HYPOKALEMIA Narrative: 33 y/o female to ER with low potassium. History of gastric bypass about 8 months ago and left adrenal mass. Following with endocrinology and nephrology. Labs day prior showed low potassium of 2.0 and repeat this am showed potassium of 2.1. Nephrology recommended go to ER. Labs showed low potassium of 2 and admitted. Started IV fluids with potassium and given IV and oral replacement. Repeat labs with K 2.7 last night and 2.5 this am. Patient feels well and wants to go home. Reports dealing with low potassium for weeks and adjusting medication. BP elevated and noted bradycardia. Coreg held. Review of Systems ROS Constitutional Denies: fever, chills or night sweats Cardiovascular Denies: chest pain, palpitations or edema Respiratory Denies: shortness of breath, cough or wheezing Gastrointestinal Denies: abdominal pain, nausea, vomiting or diarrhea Genitourinary Denies: painful urination PFSH PFS Medical History (Updated 08/24/23 @ 10:12 by Mulugeta Briggs MD) Brain tumor ?D49.6 - Neoplasm of unspecified behavior of brain (ICD-10) Plantar fasciitis of left foot ?M72.2 - Plantar fascial fibromatosis (ICD-10) Plantar fasciitis of right foot ?M72.2 - Plantar fascial fibromatosis (ICD-10) Surgical History (Updated 08/24/23 @ 10:12 by Mulugeta Briggs MD) Bariatric surgery status ?Z98.84 - Bariatric surgery status (ICD-10) Family History (Updated 08/23/23 @ 20:41 by Joan Abdalla) Mother Family history of cancer Family history of diabetes mellitus Brother Family history of diabetes mellitus Father Family history of diabetes mellitus Family history of hypertension Family history of myocardial infarction Social History (Updated 08/23/23 @ 20:44 by Joan Abdalla) Smoking status: Current every day smoker Second hand tobacco smoke exposure: No Non-prescribed substance use: denies use Previous occupational history: unemployed Known occupational exposures/hazards: No Highest level of school completed/degree received: high school graduate Do you want help with school or training: No Are you now , , , , never or living with a partner: never In a typical week, how many times do you talk on the telephone with family, friends, or neighbors: 3 or more times per week How often do you get together with friends or relatives: once per week How often do you attend congregation or catholic services: never Do you belong to any clubs or organizations such as congregation groups unions, fraternal or athletic groups, or school groups: no Total score: 1 Score interpretation: A score of less than or equal to 1 indicates the most so cially isolated. Little interest or pleasure in doing things: several days Feeling down, depressed, or hopeless: several days Feel stressed/tense/nervous/anxious/difficulty sleeping: very much Life stressors: unknown source of stress Due to disability, difficulty making decisions: No Do you think of yourself as: straight/heterosexual Gender Identity: female Meds Home Medications and Allergies Home Medications Medication Instructions Recorded Confirmed Type brexpiprazole 1 mg tablet (Rexulti) 1 mg PO .qd 08/23/23 08/23/23 History buspirone 10 mg tablet 10 mg PO .amhs 08/23/23 08/23/23 History hydralazine 100 mg tablet 100 mg PO Q12H 08/23/23 08/23/23 History lamotrigine 150 mg tablet 150 mg PO Q12H 08/23/23 08/23/23 History lurasidone 60 mg tablet 60 mg PO .QD 08/23/23 08/24/23 History magnesium oxide 400 mg (241.3 mg 400 mg PO .qd 08/23/23 08/23/23 History magnesium) tablet amlodipine 10 mg tablet 10 mg PO DAILY #30 tabs 08/24/23 Rx benzoyl peroxide 5 % topical 1 applic topical QDAY 08/24/23 08/24/23 History cleanser chlorhexidine gluconate 4 % 1 applic topical .QD PRN wound care 08/24/23 08/24/23 History topical liquid (Hibiclens) omeprazole 20 mg capsule,delayed 20 mg PO .QD 08/24/23 08/24/23 History release ondansetron HCl 4 mg tablet 4 mg PO Q8H PRN nausea and vomiting 08/24/23 08/24/23 History potassium chloride 20 mEq 20 meq PO BID #60 tabs 08/24/23 Rx tablet,extended release(part/cryst) sumatriptan succinate 100 mg tablet 100 mg PO Q2H PRN migraine headache 08/24/23 08/24/23 History zolpidem 10 mg tablet 10 mg PO .QHS PRN sleep 08/24/23 08/24/23 History Allergies Allergy/AdvReac Type Severity Reaction Status Date / Time No Known Drug Allergies Allergy Verified 08/23/23 16:26 Exam Constitutional Vital Signs, click to edit/add: Last Vital Signs Temp 97.7 F 08/24/23 04:25 Pulse 51 L 08/24/23 12:13 Resp 16 08/24/23 04:25 BP 158/86 H 08/24/23 04:25 Pulse Ox 99 08/24/23 11:48 O2 Del Method Room Air 08/24/23 11:48 Documenting provider has reviewed patient's vital signs: yes Common normals: no apparent distress, oriented x3 and alert HENMT Common normals: normocephalic Eye Common normals: PERRL and EOMs intact bilaterally Respiratory Common normals: normal respiratory effort and clear to auscultation bilaterally Cardio Common normals: regular rate, regular rhythm, no gallops, no murmurs and no rub GI Common normals: Normal to inspection, nondistended, normoactive bowel sounds present and non-tender Extremity Common normals: no pedal edema Results Labs Labs: Short CBC 08/24/23 Range/Units 04:55 WBC 7.0 (4.0-11.0) 10^3/uL Hgb 11.9 L (12.0-16.0) g/dL Hct 36.2 (36.0-48.0) % Plt Count 152 (150-450) 10^3/uL BMP 08/23/23 08/23/23 08/24/23 17:36 23:06 04:55 Sodium 147 H 147 H 147 H Potassium 2.0 L* 2.7 L* 2.5 L* Chloride 106 110 H 109 H Carbon Dioxide 34.3 H 31.9 29.9 BUN 16.0 14.0 10.0 Creatinine 0.66 0.70 0.61 Glucose 80 119 H 73 L Calcium 8.4 L 7.9 L 7.9 L Liver Function 08/24/23 Range/Units 04:55 Total Bilirubin 0.9 (0.2-1.0) mg/dL AST 19 (15-37) U/L ALT 28 (14-59) U/L Alkaline Phosphatase 105 (46-116) U/L Albumin 2.9 L (3.4-5.0) g/dL Assessment and Plan Assessment and Plan (1) Acute hypokalemia: (2) Weakness: (3) Left adrenal mass: (4) History of gastric bypass: Plan Dealing with low potassium for weeks and following with specialists. Potassium remains low but improved this am. Give additional IV dose now. Will discharge home later today and increase oral potassium to BID. BP elevated and add norvasc. Hold coreg due to low heart rate. Patient scheduled for potassium infusions 08/26 and 08/27. Follow up with specialists as scheduled. Resume home medication as directed.
--- NOTE | 2023-08-26 10:27 | CM.DCFOLLOWU ---
Person spoke with: Mary How are you feeling? Ok How is your pain? No pain Did you understand your discharge instructions? Yes Do you have any questions about your discharge instructions? No Were you given any prescriptions at discharge? Yes Were you able to get your prescriptions filled? Yes Do you understand how to take your medications as ordered? Yes Do you have any questions about your follow up appointment and do you plan to keep your follow up appointment? I am changing doctor's , so I am working on that now. I am coming in for blood work today. Is there anything else that you would like to discuss? No Questions/Comments/Concerns/Other:
== END 2023-08-24 15:22 | disposition home or self-care (01) ==
LOC: ER 18:34 → MS 18:51
PROVIDERS: Admitting Provider Internal Medicine; Emergency Provider Emergency Medicine; PCP Family Medicine; Visit Provider Internal Medicine
DX: E87.6 Hypokalemia (principal); R53.1 Weakness; E27.9 Disorder of adrenal gland, unspecified; Z98.84 Bariatric surgery status; E87.3 Alkalosis; I10 Essential (primary) hypertension; F17.210 Nicotine dependence, cigarettes, uncomplicated; Z79.899 Other long term (current) drug therapy
CPT/HCPCS: 36415; 80048; 80053; 80069; 82088; 82384; 82530; 82533; 83735; 84100; 84133; 84244; 84484; 85025; 93005; 94761; 96365; 96366; 96372; 96375; 96376; 99285; G0378; J1650; J2405; J3480

== ENCOUNTER 2023-08-26 11:46 | Outpatient (OUT) | payer OTHER, SELFPAY ==
--- OUTSIDE RECORDS SUMMARY | 2023-08-26 11:56 | XMS_ITS | CCD ---
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 Name Role Phone Spasic, Carmelo Unavailable Unavailable Spasic, Carmelo Unavailable Unavailable IMMANUEL KIRBY Unavailable Unavailable Immanuel Kirby Unavailable Unavailable Unavailable DO Immanuel Kirby Primary Care Provider NETTIE Prakash Attending Provider REJI Rhodes Attending Provider [phone] Manasa Rhodes Admitting Unavailable Immanuel Kirby Primary [...] Unavailable BAM, DR MILLER Primary Care Unavailable MARLENY, DR INIGUEZ Admitting Unavailable MISC, DR INIGUEZ Attending Unavailable MISC, DR INIGUEZ Consulting Unavailable BRIDGETTE, DR MURO Admitting Unavailable BRIDGETTE, DR MURO Attending Unavailable BRIDGETTE, DR MURO Consulting Unavailable BAM, DR MILLER Primary Care Unavailable Judy, Dr. Hull Attending Unavaila darryn Kirby, Dr. Immanuel Toure Primary Care Unavaila darryn Kim, Dr. Hull Attending Unavaila darryn Kim, Dr. Hull Referring Unavaila Dr. Immanuel Pillai Primary Care Unavaila Zara Nelson Unavailable JUAN BARON Attending Unavailable MANASA DUNAWAY Referring Unavailable ТАТЬЯНА RODRIGUEZ Attending Unavailable IMMANUEL KIRBY Referring Unavailable SHEILA LOUIS Attending Unavailable MANASA DUNAWAY Attending Unavailable GAGANDEEP DUNAWAYANDRA H Referring Unavailable SHEILA LOUIS Attending Unavailable SHEILA LOUIS Attending Unavailable IMMANUEL KIRBY Referring Unavailable ALEX NAIK Attending Unavailable MANASA DUNAWAY Referring Unavailable JUAN BARON Attending Unavailable MANASA DUNAWAY Referring Unavailable JHONY GARCIA Attending Unavailable MANASA DUNAWAY H Referring Unavailable JUAN BARON Attending Unavailable MANASA DUNAWAY Referring Unavailable IMMANUEL KIRBY Primary Care Unavailable VIKKI BAILEY Attending Unavailab Immanuel Salcedo DO Primary Care Provider Esther Angeles MD Unavailable [phone] Татьяна Rodriguez PA-C Unavailable [phone] Allergies Allergy Classification Reported Allergen(s) Allergy Type Date of Onset Reaction(s) Facility (1 source) No Known Medication Allergies; Translations: [No Known Medication Allergies] Propensity to adverse reactions to drug (disorder) [facility] Repository Medications Current Medications Medication Drug Class(es) Dates Sig (Normalized) Sig (Original) benzoyl peroxide 50 mg/ml medicated liquid soap (2 sources) Benzoyl Peroxide Wash 5 % 1 application Externally Once a day Active Calcium Carbonate+Vitamin D (2 sources) Calcium Carbonate+Vitamin D Active lamoTRIgine 150 mg oral tablet (5 sources) Mood Stabilizer, Anti-epileptic Agent Start: 05-21-2022 End: 11-07-2023 lamoTRIgine (LAMICTAL) 150 mg tablet Take 150 mg by mouth. 0 05/21/2022 11/07/2023 Active Comment on above: Take 150 mg by mouth . loperamide hydrochloride 2 mg oral tablet (2 sources) Opioid Agonist Start: 05-03-2017 Loperamide (Imodium A-D) 2 mg tablet Active 2 MG PO Q4H May 02, 2017 11:00pm after each loose stool until symptoms controlled; do not exceed 16 mg total dose in 24 hrs lurasidone hydrochloride 60 mg oral tablet (3 sources) Atypical Antipsychotic Start: 07-20-2022 End: 09-01-2023 lurasidone (LATUDA) 60 mg tab tablet Take 60 mg by mouth. 0 07/20/2022 09/01/2023 Active Comment on above: Take 60 mg by mouth. magnesium oxide 400 mg oral tablet (2 sources) take 1 tablet by mouth every twenty-four hours Magnesium Oxide 400 MG 1 TABLET Orally Once a day Active Multivitamin preparation (2 sources) take 1 tablet by mouth once daily Multi Vitamin - 1 tablet Orally Once a day Active promethazine hydrochloride 25 mg oral tablet (2 sources) Phenothiazine Start: 05-03-2017 take 25 mg by mouth every six hours Promethazine Active 25 MG PO Q6H May 02, 2017 11:00pm Completed/Discontinued Medications Medication Drug Class(es) Dates Sig (Normalized) Sig (Original) amLODIPine 10 mg oral tablet (5 sources) Dihydropyridine Calcium Channel Clover Start: 09-29-2019 End: 08-20-2023 take 1 tablet by mouth once daily amLODIPine Besylate 10 MG Oral Tablet TAKE 1 TABLET BY MOUTH EVERY DAY Quantity: 90 Refills: 0 Ordered: 11-Mar-2022 DO Start : 03-Dec-2021 Active Comment on above: Take 10 mg by mouth once daily. brexpiprazole 1 mg oral tablet (3 sources) Atypical Antipsychotic Start: 06-18-2023 take 1 tablet by mouth once daily REXULTI 1 mg tablet TAKE 1 TABLET BY MOUTH ONCE DAILY AT THE SAME TIME 0 06/18/2023 Active Comment on above: TAKE 1 TABLET BY ROSITA TH ONCE DAILY AT THE SAME TIME busPIRone hydrochloride 10 mg oral tablet (3 sources) Start: 03-17-2023 take 1 tablet by mouth at bedtime busPIRone (BUSPAR) 10 mg tablet TAKE 1 TABLET (10 MG) BY MOUTH IN THE MORNING AND BEFORE BEDTIME 0 03/17/2023 Active Comment on above: TAKE 1 TABLET (10 MG ) BY MOUTH IN THE MORNING AND BEFORE BEDTIME carvedilol 25 mg oral tablet (5 sources) alpha-Adrenergic Clover, beta-Adrenergic Clover Start: 08-18-2021 take 1 tablet by mouth twice daily carvedilol (COREG) 25 mg tablet Take 1 tablet by mouth two times a day. 0 08/18/2021 Active Comment on above: Take 1 tablet by rosita two times a day. dexamethasone 1 mg oral tablet (1 source) Corticosteroid Start: 08-20-2023 dexAMETHasone (DECADRON) 1 mg tablet Take 1 tablet at 11 pm and draw blood the next day 1 tablet 0 08/20/2023 Active Comment on above: Take 1 tablet at 11 pm and draw blood the next day ethinyl estradiol 0.035 mg / norethindrone 1 mg oral tablet (1 source) Estrogen End: 08-20-2023 take 1 tablet by mouth once daily, then take [id number] 57 tablet by mouth once Norethindrone-Eth Estradiol (ALYACEN , ,) 1-35 mg-mcg per tablet Take 1 tablet by mouth once daily. 0 08/20/2023 Discontinued Comment on above: Take 1 tablet by rosita once daily. ferrous sulfate 134 mg oral tablet (1 source) Ferrous Sulfate 27 mg iron tab Take by mouth twice daily. 0 Active Comment on above: Take by mouth twice daily. gabapentin 400 mg oral capsule (5 sources) Anti-epileptic Agent Start: 05-20-2022 gabapentin (NEURONTIN) 400 mg capsule 1 capsule. 0 05/20/2022 Active Comment on above: 1 capsule. hydrALAZINE hydrochloride 100 mg oral tablet (5 sources) Arteriolar Vasodilator Start: 07-04-2022 take 1 tablet by mouth twice daily hydrALAZINE (APRESOLINE) 100 mg tablet Take 1 tablet by mouth two times a day. 0 07/04/2022 Active Start: 04-23-2022 take 1 tablet by rosita twice daily at mealtime hydrALAZINE HCl - 25 MG Oral Tablet TAKE 1 TABLET BY MOUTH TWICE A DAY WITH FOOD Quantity: 180 Refills: 0 Ordered: 24-Apr-2022 DO Start : 23-Apr-2022 Active Comment on above: Take 1 tablet by rosita two times a day. minocycline 100 mg oral capsule (1 source) Tetracycline-cla ss Drug Start: 11-27-19 End: 08-20-19 take 1 capsule by mouth twice daily minocycline 100 mg capsule Take 1 capsule by mouth twice daily. 60 capsule 4 11/26/2012 08/20/2023 Discontinued Comment on above: Take 1 capsule by mo [facility] twice daily. Natazia 3/2-2/2-3/1 MG Oral Tablet (2 sources) Start: 09-27-19 take 1 tablet by mouth once daily Natazia 3/2-2/2-3/1 MG Oral Tablet TAKE 1 TABLET BY MOUTH EVERY DAY CONTINUOUSLY Quantity: 28 Refills: 0 Ordered: 29-May-2022 DO Start : 27-Sep-2021 Active microencapsulated potassium chloride 20 meq extended release oral tablet (5 sources) Start: 04-27-20 potassium chloride ER (KLOR-CON) 20 mEq tablet Take 20 mEq by mouth. 0 04/27/2022 Active Start: 04-27-2022 take 1 tablet by rosita once daily Klor-Con M20 20 MEQ Oral Tablet Extended Release TAKE 1 TABLET BY MOUTH EVERY DAY Quantity: 90 Refills: 0 Ordered: 27-Apr-2022 DO Start : 27-Apr-2022 Active take 1 tablet by rosita every twenty-four hours Potassium Chloride ER 20 MEQ 1 tablet with food Orally Once a day Active Comment on above: Take 20 mEq by mouth . propranolol hydrochloride 40 mg oral tablet (1 source) beta-Adrenergic Clover End: 4 take 40 mg by mouth twice daily propranolol HCl (PROPRANOLOL ORAL) Take 40 mg by mouth twice daily. 0 08/20/2023 Discontinued Comment on above: Take 40 mg by mouth twice daily. sertraline 50 mg oral tablet (2 sources) Serotonin Reuptake Inhibitor End: 4 take 1 tablet by mouth once daily sertraline (ZOLOFT) 25 mg tablet Take 25 mg by mouth once daily. 0 08/20/2023 Discontinued End: 08-20-2023 take 1 tablet by mouth once daily sertraline (ZOLOFT) 50 mg tablet Take 50 mg by mouth once daily. 0 08/20/2023 Discontinued Comment on above: Take 50 mg by mouth once daily. Take 25 mg by mouth once daily. SUMAtriptan 100 mg oral tablet (3 sources) Serotonin-1b and Serotonin-1d Receptor Agonist Start: 4 SUMAtriptan (IMITREX) 100 mg tablet TAKE 1 TAB AT MIGRAINE ONSET, MAY REPEAT IN 2 HOURS NEEDED, MAX 2 TABS IN 24 HOURS 0 08/17/2023 Active Comment on above: TAKE 1 TAB AT MIGRAI NE ONSET, MAY REPEAT IN 2 HOURS NEEDED, MAX 2 TABS IN 24 HOURS terazosin 2 mg oral capsule (1 source) alpha-Adrenergic Clover Start: 0 End: 4 take 1 capsule by mouth once daily at bedtime terazosin (HYTRIN) 2 mg capsule Take 2 mg by mouth daily at bedtime. 0 11/02/2019 08/20/2023 Discontinued Comment on above: Take 2 mg by mouth d aily at bedtime. zolpidem tartrate 10 mg oral tablet (3 sources) gamma-Aminobutyric Acid-ergic Agonist Start: 4 zolpidem (AMBIEN) 10 mg Problems Active Problems Problem Classification Problem Date Documented Da te Episodic/Chronic Administrative/social admission (4 sources) Encounter for blood-alcohol and blood-drug test; Translations: [ENC BLOOD-ALCOHOL BLOOD-DRUG TEST] Onset: 10-23-2022 Episodic Cancer of brain and nervous system (2 sources) Malignant neoplasm of brain, unspecified; Translations: [Malignant neoplasm of brain, unspecified] Onset: 10-22-2022 Chronic Essential hypertension (7 sources) Benign essential hypertension; Translations: [Benign essential hypertension] 05-03-2017 Chronic Fluid and electrolyte disorders (7 sources) Hypokalemia; Translations: [Hypokalemia] Onset: 09-07-2022 Episodic Menstrual disorders (1 source) Dysmenorrhea, unspecified; Translations: [DYSMENORRHEA UNSPECIFIED] Onset: 01-10-2022 Chronic Nausea and vomiting (2 sources) Nausea; Translations: [Nausea] 05-03-2017 Episodic Other and unspecified benign neoplasm (1 source) Benign neoplasm of left adrenal gland; Translations: [Adenoma of left adrenal gland] Onset: 08-20-2023 Episodic Other and unspecified benign neoplasm (1 source) Adenoma of left adrenal gland; Translations: [Benign neoplasm of left adrenal gland] 08-20-2023 Episodic Other connective tissue disease (1 source) Plantar fascial fibromatosis; Translations: [Plantar fascial fibromatosis] Onset: 09-13-2022 Episodic Other endocrine disorders (2 sources) Polycystic ovary syndrome; Translations: [Polycystic ovaries] Chronic Other endocrine disorders (4 sources) Polycystic ovarian syndrome; Translations: [POLYCYSTIC OVARIAN SYNDROME] Onset: 01-04-2022 Chronic Other endocrine disorders (3 sources) Disorder of adrenal gland, unspecified; 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)] Chronic Other gastrointestinal disorders (2 sources) Irritable bowel syndrome with diarrhea; Translations: [Irritable [...] Classification Problem Date Documented Da te Episodic/Chronic Nutritional deficiencies (1 source) Iron deficiency; Translations: [Iron deficiency] Onset: 02-02-2020 02-02-2020 Episodic Other aftercare (1 source) 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 When there are no FDA-approved or cleared tests available, and other criteria are met, FDA can make tests available under an emergency access mechanism called an Emergency Use Authorization (EUA). The EUA for this test is supported by the [place] of Health and Human Service's (HHS's) declaration [...] SARS-CoV-2. Performed By: #### C VDTB #### [facility] [address] [address] [address] Maylin Mckoy Follow-Upon 11-05-2022 Follow-Up [id number] Janine De La Vega 1990 F Date Provider Department Center 11/05/2022 RAVINDRA BUCKLEY ONC DCC Family History Problem Relation Age of Onset Diabetes Mother Thyroid cancer Mother Diabetes Father Hypertension Father Family Status - Relation Status Age at Mother Father Level of Service:34379 NM OFFICE/OUTPATIENT ESTABLISHED MOD MDM 30-39 MIN Normal [facility] DRUG SCREEN RAPID (URINE)on 10-23-2022 AMP Negative Normal NEGATIVE [facility] Comment on above: Performed By: #### D RUGRPD #### [facility] [address] [place] [address] Dr. Maylin Mckoy BAR Negative Normal NEGATIVE [facility] Comment on above: Performed By: #### D RUGRPD #### [facility] [address] [place] [address] Dr. Maylin Mckoy BUP Negative Normal NEGATIVE [facility] Comment on above: Performed By: #### D RUGRPD #### [facility] [address] [place] [address] Dr. Maylin Mckoy BZO Negative Normal NEGATIVE [facility] Comment on above: Performed By: #### D RUGRPD #### [facility] [address] [place] [address] Dr. Maylin Mckoy DRE Negative Normal NEGATIVE [facility] Comment on above: Performed By: #### D RUGRPD #### [facility] [address] [place] [address] Dr. Maylin Mckoy CUT-OFFS SEE BELOW Normal [facility] Comment on above: Result Comment: AMP [...] ng/mL Performed By: #### D RUGRPD #### [facility] [address] [place] [address] Dr. Maylin Mckoy DRUG CUT HEADER DRUG CLASS TEST SYST EM CUT-OFF CONCENTRATIONS ARE FOLLOWS: Normal [facility] Comment on above: Performed By: #### D RUGRPD #### [facility] [address] [place] [address] Dr. Maylin Mckoy mAMP Negative Normal NEGATIVE [facility] Comment on above: Performed By: #### D RUGRPD #### [facility] [address] [address] [address] Maylin Mckoy MTD Negative Normal NEGATIVE [facility] Comment on above: Performed By: #### D RUGRPD #### [facility] [address] [address] [address] Maylin Mckoy OPI Negative Normal NEGATIVE [facility] Comment on above: Performed By: #### D RUGRPD #### [facility] [address] [address] [address] Maylin Mckoy OXY Negative Normal NEGATIVE [facility] Comment on above: Performed By: #### D RUGRPD #### [facility] [address] [place] [address] Dr. Maylin Mckoy PCP Negative Normal NEGATIVE [facility] Comment on above: Performed By: #### D RUGRPD #### [facility] [address] [address] [address] Maylin Mckoy PPX Negative Normal NEGATIVE [facility] Comment on above: Performed By: #### D RUGRPD #### [facility] [address] [address] [address] Maylin Mckoy TCA Negative Normal NEGATIVE [facility] Comment on above: Performed By: #### D RUGRPD #### [facility] [address] [place] [address] Dr. Maylin Mckoy THC Negative Normal NEGATIVE [facility] Comment on above: Performed By: #### D RUGRPD #### [facility] [address] [place] [address] Dr. Maylin Mckoy MR BRAIN W AND [...] of ventriculomegaly. Electronically signed: Frank Lara. Normal [facility] Potassiumon 09-13-2022 Potassium [Moles/Vol] 3.3 mmol/L Low 3.5-5.1 [facility] Comment on above: Order Comment: Reaso n for Exam Plantar fasciitis;Encounter for preoperative assessment Result Comment: PERF ORMED BY: [place] [address] PATHOLOGIST TRAPEZE PERFORMER MARY ANN LAL M.D. Performed By: #### K #### [address] Serum or plasma potassium me asurement (moles/volume)Ordered By: Manasa Rhodes on 09-13-2022 Potassium [Moles/Vol] 3.3 mmol/L 3.5-5.1 [facility] Office Visiton 09-10-2022 Follow-up visit [id number] Janine De La Vega 1990 F Date Provider Department Center 09/10/2022 RAVINDRA BUCKLEY ONC DCC Family History Problem Relation Age of Onset Diabetes Mother Thyroid cancer Mother Diabetes Father Hypertension Father Family Status - Relation Status Age at Mother Father Level of Service:62779 NM OFFICE/OUTPATIENT ESTABLISHED MOD MDM 30-39 MIN Reason for Visit and Comments: Consult [484] - Past patient, coming back today to have imaging reordered. Normal [facility] Orders Onlyon 09-10-2022 Orders Only [id number] Janine De La Vega 1990 F Date Provider Department Center 09/10/2022 MONICA DOMINGUEZ ONC DCC Family History Problem Relation Age of Onset Diabetes Mother Thyroid cancer Mother Diabetes Father Hypertension Father Family Status - Relation Status Age at Mother Father Normal [facility] MAGNESIUMon 09-07-2022 Magnesium [Mass/Vol] 1.9 mg/dL Normal 1.8-2.4 [facility] Comment on above: Performed By: #### M Court PHOS, BMP #### [facility] [address] [place] [address] Dr. Maylin Mckoy PHOSPHORUSon 09-07-2022 Phosphate [Mass/Vol] 3.7 mg/dL Normal 2.6-4.7 [facility] Comment on above: Performed By: #### Jose F Yun PHOS, BMP #### [facility] [address] [place] [address] Dr. Maylin Mckoy PROF CHEM 8 (BAS METB)on Anion gap [Moles/Vol] 14.3 mmol/L Normal [facility] Comment on above: Performed By: #### Jose F Yun PHOS, BMP #### [facility] [address] [place] [address] Dr. Maylin Mckoy Calcium [Mass/Vol] 9.3 mg/dL Normal 8.5-10.1 [facility] Comment on above: Performed By: #### Jose F Yun PHOS, BMP #### [facility] [address] [place] [address] Dr. Maylin Mckoy Chloride [Moles/Vol] 105 mmol/L Normal 98-107 [facility] Comment on above: Performed By: #### Jose F Yun PHOS, BMP #### [facility] [address] [address] [address] Maylin Mckoy CO2 [Moles/Vol] 31.0 mmol/L Normal 21.0-32.0 [facility] Comment on above: Performed By: #### YAMILET Lopez, BMP #### [facility] [address] [address] [address] Maylin Mckoy Creatinine [Mass/Vol] 0.90 mg/dL Normal 0.55-1.02 [facility] Comment on above: Performed By: #### YAMILET Lopez, BMP #### [facility] [address] [address] [address] Maylin Mckoy EGFR-AF PALAUAN >60 Normal >=60 [facility] Comment on above: Performed By: #### YAMILET Lopez, BMP #### [facility] [address] [address] [address] Maylin Mckoy EGFR-NON AF PALAUAN >60 Normal >=60 [facility] Comment on above: Performed By: #### YAMILET Lopez, BMP #### [facility] [address] [address] [address] Maylin Mckoy Glucose [Mass/Vol] 158 mg/dL Critically high 74-106 [facility] Comment on above: Performed By: #### YAMILET Lopez, BMP #### [facility] [address] [address] [address] Maylin Mckoy Potassium [Moles/Vol] 2.3 mmol/L Critically low 3.5-5.1 [facility] Comment on above: Performed By: #### YAMILET Lopez, BMP #### [facility] [address] [address] [address] Maylin Mckoy Sodium [Moles/Vol] 147 mmol/L Critically high 136-145 [facility] Comment on above: Performed By: #### YAMILET Lopez, BMP #### [facility] [address] [address] [address] Maylin Mckoy Urea nitrogen [Mass/Vol] 7.0 mg/dL Normal 7.0-18.0 [facility] Comment on above: Performed By: #### M Court PHOS, BMP #### [facility] [address] [place], [place] [address] Dr. Maylin Mckoy Urea nitrogen/Creatinine [Mass ratio] 7.8 mg/mg Normal [facility] Comment on above: Performed By: #### M Court PHOS, BMP #### [facility] [address] [place], [place] [address] Dr. Maylin Mckoy Potassiumon 09-07-2022 Potassium [Moles/Vol] 2.4 mmol/L Off scale low 3.5-5.1 [facility] Comment on above: Result Comment: Resu lts called at 0807 on 09/07/22 PERFORMED BY: [place] [address] PATHOLOGIST [employer]APEZE PERFORMER MARY ANN LAL M.D. Performed By: #### K #### [address] Serum or plasma potassium me asurement (moles/volume)Ordered By: NON STAFF on 09-07-2022 Potassium [Moles/Vol] 2.4 mmol/L 3.5-5.1 [facility] Comment on above: Results calledat 080 [...] Former smoker Tobacco Use Screening; Status:Complete; Done: [id number] Patient Instructions Please bring all medicines, vitamins, [...] seen for a consultation for. DEDE Benson, [facility] Bariatrics- Bariatric sx History of Present [...] Vital Signs Recorded: 06Jun2022 04:17PMRecorded: 06Jun2022 03:45PM [id number], LUE, Sitting [id number], LUE, Sitting Heart Rate71, Apical Height5 ft 7 in Ifmyeh473 lb BMI Dgbaxxeqpd21.77 kg/m2 BSA Calculated2.42 Tobacco Useb) No PHQ-2 [...] to auscul (more content not included)... Normal [facility] Tobacco Screening.on 022 Adult depression screening assessment No [facility] [address] DO Work Phone: Tobacco use status [facility]PH[facility] b) No M [facility] [employer] 250 DO Work Phone: DHEA SERUMon 01-12-2022 Dehydroepiandrosterone (DHEA) 287 ng/dL Normal 31-701 [facility] Comment on above: Result Comment: [...] 31 - 701 Performed By: #### D WILLA. #### [facility] [address] [address] [address] Maylin Mckoy TESTOSTERONE, FREE,DIRECT, T OTALon 01-06-2022 Free Testosterone(Direct) 1.6 pg/mL Normal 0.0-4.2 [facility] Comment on above: Result Comment: Perf ormed at: BN Performed By: #### T ESTFRD #### [facility] [address] [place] [address] Dr. Maylin Mckoy Testosterone [Mass/Vol] 17 ng/dL Normal 13-71 [facility] Comment on above: Result Comment: Perf ormed at: CB Performed By: #### T ESTFRD #### [facility] [address] [place] [address] Dr. Maylin Mckoy INSULINon 01-05-2022 Insulin 13.2 uIU/mL Normal 2.6-24.9 [facility] Comment on above: Performed By: #### I NSULIN #### [facility] [address] [address] [address] Maylin Mckoy GLYCOHEMOGLOBIN A1Con 2021 ADA RECOMMENDATION SEE BELOW Normal [facility] Comment on above: Result Comment: ADA RECOMMENDED LIMIT 4.0 - 6.0 ADA THERAPEUTIC TARGET < 7.0 ACTION SUGGESTED > 7.0 Performed By: #### A 1C #### [facility] [address] [address] [address] Maylin Mckoy Glucose [Mass/Vol] 146 mg/dL Normal [facility] Comment on above: Performed By: #### A 1C #### [facility] [address] [place] [address] Dr. Maylin Mckoy HbA1c (Bld) [Mass fraction] 6.7 % Critically high 4.5-6.2 [facility] Comment on above: Performed By: #### A 1C #### [facility] [address] [address] [address] Maylin Mckoy TSHon 01-04-2022 TSH 3.214 uIU/mL Normal 0.358-3.74 0 [facility] Comment on above: Performed By: #### T SH #### [facility] [address] [place] [address] Dr. Maylin Mckoy TSH RANGE SEE BELOW Normal [facility] Comment on above: Result Comment: <0.3 4 UIU/ml HYPERTHYROID 0.34-5.60 UIU/ml EUTHYROID >5.60 UIU/ml HYPOTHYROID Performed By: #### T SH #### [facility] [address] [place] [address] Dr. Maylin Mckoy Potassiumon 10-05-2021 Potassium [Moles/Vol] 3.3 mmol/L Low 3.5-5.5 Joseph krueger [place] Insurance Follow Up Representative Comment on above: Performed By: #### K #### [facility] [address] [place], [place] [id number] [place] 09-11-2021 Consent [id number]#[id number]:127 Normal [facility] Registrationon 09-11-2021 Registration [id number]#[id number]:127 Normal [facility] Basic Metabolic Panelon 08-06 Anion gap [Moles/Vol] 21 mmol/L High 12-20 Joseph krueger [place] [employer] Follow Up Representative Comment on above: Result Comment: Effe ctive 08/10/2019 reference range changed. Performed By: #### B MP #### [facility] [address] [place], [place] [id number] Calcium [Mass/Vol] 9.3 mg/dL Normal 8.6-10.2 Sydnie crespo [place] Insurance Follow Up Representative Comment on above: Performed By: #### B MP #### [facility] [address] [place] [id number] Chloride [Moles/Vol] 106 mmol/L Normal 98-107 [facility] Comment on above: Performed By: #### B MP #### [facility] [address] [place], [place] [id number] CO2 [Moles/Vol] 20 mmol/L Normal 20-31 [facility] Comment on above: Performed By: #### B MP #### [facility] [address] [place], [place] [id number] Creatinine [Mass/Vol] 0.7 mg/dL Normal 0.6-1.4 [facility] Comment on above: Performed By: #### B MP #### [facility] [address] [place], [place] [id number] eGFRAA 115 mL/min/1.73m2 Normal >60 [facility] Comment on above: Performed By: #### B MP #### [facility] [address] [place], [place] [id number] eGFRNAA 95 mL/min/1.73m2 Normal >60 [facility] Comment on above: Performed By: #### B MP #### [facility] [address] [place], [place] [id number] Glucose [Mass/Vol] 184 mg/dL High 65-99 [facility] Specialist Comment on above: Result Comment: For FASTING Glucose --- ADA reference ranges: Normal 65-99 mg/dl Prediabetes 100-125 Diabetes >/= 126 Performed By: #### B MP #### [facility] [address] [place], [place] [id number] Potassium [Moles/Vol] 2.8 mmol/L Critically low 3.5-5.5 [facility] Comment on above: Result Comment: Crit ical result called to Dr Rhodes/Rylee at 09/01/2021 11:58 AM by Cyndie Montanez (Bertha) Performed By: #### B MP #### [facility] [address] [place], [place] [id number] Sodium [Moles/Vol] 144 mmol/L Normal 135-146 [facility] Insurance Follow Up Representative Comment on above: Performed By: #### B MP #### [facility] [address] [place], [place] [id number] Urea nitrogen [Mass/Vol] 10 mg/dL Normal 7-25 [facility] Insurance Follow Up Representative Comment on above: Performed By: #### B MP #### [facility] [address] JOSH BERRY [id number] Consenton 08-17-2021 Consent [id number]#[id number]:127 Normal [facility] Registrationon 08-17-2021 Registration [id number]#[id number]:127 Normal [facility] Registrationon 04-04-2021 Registration [id number]#1.00CD:127 Normal [facility] Consenton 04-03-2021 Consent [id number]#1.00CD:127 Normal [facility] MRI BRAIN W WO CONTRASTon MRI BRAIN W WO CONTRAST [facility] Department of Radiology [address] [place] [id number] Patient Name: HEIDI DE LA VEGA : 1990 Sex: F Age: Race: White Pt. Location: 29 Patient Status: O Ordered Date: 02/04/2020 2:05:00 PM Completed Date: 03/17/2020 10:13 AM Requesting Provider: GANGA RODRIGUES Attending Provider: GANGA RODRIGUES Report Copy To: IMMANUEL KIRBY Signs & Symptoms: C71.9 Malignant neoplasm of brain, unspecified I10 History: Nita PERES AUTH [id number] VALID 03/04-04/03/2020 [id number] KW Comments: , 1p-19q co-deleted oligodendroglioma of [...] reports Electronically signed: Shawn Martins. Transcribed by: [email or web address], User Resident: JONATHAN ARCE Electronically Signed by: SHAWN MARTINS @ 03/17/2020 12:45 PM I personally read this/these film(s) with this resident Normal [facility] Comment on above: Order Comment: , [...] WO CONTRASTon MRI BRAIN W WO CONTRAST [facility] Department of Radiology [address] [place] [id number] Patient Name: HEIDI DE LA VEGA : 1990 Sex: F Age: Race: White Pt. Location: 29 Patient Status: O Ordered Date: 03/20/2019 11:25:00 AM Completed Date: 09/11/2019 10:54 AM Requesting Provider: ALISA MCKOY Attending Provider: ALISA MCKOY Report Copy To: IMMANUEL KIRBY Signs & Symptoms: C71.9 Malignant neoplasm of brain, unspecified I10 History: Nita peres auth # [id number] 08/28/2019-09/27/2019 cpt code 81253 *mla Comments: , 1p-19q co-deleted oligodendroglioma of [...] reports Electronically signed: Jim Jason. Transcribed by: [email or web address], User Resident: DANDY HUFFMAN Electronically Signed by: JIM JASON @ 09/11/2019 04:35 PM I personally read this/these film(s) with this resident Normal [facility] Comment on above: Order Comment: , [...] Summaryon 01-29-2018 Coding Summary CODING DATE: 018 [facility] STATUS: Home PAYOR: Medicaid HMO [...] Swanson' Date Saved: 01/29/2018 03:42 pm Normal [facility] ED Clinical Summaryon 2017 ED Clinical Summary [facility] ? Urgent [address] [place] [address] clinical SummaryPERSON INFORMATIONName: HEIDI DE LA VEGA Age: 27 Years Sex: FEMALEDOB: [birth year] MRN: Acct#:Visit Reason: UC - Rash; UC - Rash; RASH/ BILAT LEGS Arrival: 01/23/18 10:43:00 Discharge: 01/23/18 11:18:00LOS: 000 00:35 Check In: 01/23/18 10:43:00 Checkout: 01/23/18 11:18:00Address:[address] [place] [id number]: Immanuel Kirby INFORMATIONProvider Role Assigned UnassignedSpasic Carmelo ASHRAF ED PA 01/23/18 10:48:23Cristal Dunaway ED Nurse 01/23/18 10:53:41VITALS INFORMATIONVital Sign Triage LatestTemperature TympanicTemperature Temporal ArteryPulse Rate 79 bpm 79 bpmO2 Sat 97 % 97 %Respiratory Rate 16 br/min 16 br/minBlood Pressure 162 mmHg/98 mmHg 162 mmHg/98 mmHgMEDICAL INFORMATIONMedications Given:Allergy Information:No Known Medication AllergiesPHYSICIAN DOCUMENTATIONDISCHARGE INFORMATION:Discharge Disposition: HomeDischarge Location:PATIENT EDUCATION INFORMATIONInstructions: Poison Eustis Dermatitis, Ohqb-nn-JyoiPyzzxc-Up:With : Address: When:Immanuel Kirby [facility] [address] [facility] [place] [address] [facility] (1)Comments:Begin on the prednisone 2 tablets daily for 5 days take with food to avoid gastric refluxBegin on the Claritin 1 tab daily for the next 2 weeks Follow-up with primary care provider in 3-5 days sooner if worse.DIAGNOSIS:urushiol induced contact dermatitisPatient Understands: Yes - Patient/family/caregiver verbalizes understanding of instructions givenComment: [facility] ED Note - Physicianon 2017 ED Note - Physician Patient: HONORIO DE LA VEGA : 27 years Sex: FEMALE : [birth year]Associated Diagnoses: urushiol induced contact dermatitisAuthor: Zo ASHRAF, AleksandarBasic InformationTime seen: Date & time 01/23/18 11:01:00.History source: Patient.Arrival mode: Private vehicle.History limitation: None.Additional information: Chief Complaint from Nursing Triage Note : Chief Sceteiwad84/21/18 10:45 EDT Chief Complaint 2-3 days possible [...] been selected or recorded..Social history:Social & Psychosocial FvkrohWnzcckd21/21/2018 Number used per day: 10.Problem list:Active Problems (1)Smoker.Physical Examination Vital SomoiBzkygwmdfipk09/21/18 10:45 EDT Height 170.18 cm Weight 122.47 [...] was given the following educational materials: Poison Eustis Dermatitis, Zqgo-uh-Neaa.Follow up with: Immanuel Kirby Begin on the [...] [place][Verified on: 01/23/2018 11:28 EDT] [place] [facility] ED Patient Summaryon 018 ED Patient Summary [facility] ? Urgent [address] [place] [address] pATIENT DISCHARGE INSTRUCTIONSPatient InformationName: HEIDI DE LA VEGA Age: 27 YearsDate of : [birth year]MRN: [id number] For Visit: UC - Rash; UC - Rash; RASH/ BILAT LEGSArrival Time: 01/23/18 10:43:00[facility]: [facility]: Immanuel Kirby Physician: Tonja LakerComment:Patient EducationWith: Address: When:Immanuel Kirby [facility] [address] [facility] [address] [place] [address] Business (1)Comments:Begin on the prednisone 2 tablets daily for 5 days take with food to avoid gastric refluxBegin on the Claritin 1 tab daily for the next 2 weeks Follow-up with primary care provider in 3-5 days sooner if worse.Poison Eustis DermatitisPoison oak dermatitis is redness and soreness [...] instructions at home:General instructions? Take or apply alls-wjp-wkldmnn and prescription medicines only as told by [...] Reviewed: 12/28/2015Nirmala [employer] Patient Education ? 2018 [employer].Medication Information:The exam and treatment you received today in the [facility] Emergency Department were for an urgent problem and are not intended as complete care. It is important for you to follow up with a doctor, nurse practitioner, or physician?s diploma medical assistant for ongoing care. If your symptoms [...] number so we can reach you if necessary.[facility] has provided you with a complete list of medications post discharge. 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 Department of Health and Human ServicesCenters for Disease Control and Prevention April 2014 Normal [facility]gent Care [place] 018 Urgent Care Record [facility] ? Urgent [address] [place], [place] [id number] pATIENT DISCHARGE INSTRUCTIONSPatient InformationName: HEIDI DE LA VEGA Age: 27 YearsDate of : [birth year]MRN: [id number] For Visit: UC - Rash; UC - Rash; RASH/ BILAT LEGSArrival Time: 01/23/18 10:43:00Phone: [facility] Physician: Immanuel Kirby Physician: Tonja LakerComment:Visit Diagnosis:Diagnoses This Visit UC - Rash ([id number]) UC - Rash ([id number]) urushiol induced contact dermatitisIf you received any [...] or sign any legal documentsWith: Address: When:Immanuel Bolivar [address] [place] [address] Business (1)Comments:Begin on the prednisone 2 tablets daily for 5 days take with food to avoid gastric refluxBegin on the Claritin 1 tab daily for the next 2 weeks Follow-up with primary care provider in 3-5 days sooner if worse.Medication Information:The exam and treatment you received today in the [facility] were for an urgent problem and are not intended as complete care. It is important for you to follow up with a doctor, nurse practitioner, or physician?s diploma medical assistant for ongoing care. If your symptoms [...] number so we can reach you if necessary.[facility] has provided you with a complete list of medications post discharge. 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 Take or apply bkxd-prb-ycdpcvo and prescription medicines only as told by [...] Reviewed: 12/28/2015Nirmala Interactive Patient Education ? 2018 [employer] System. Viruses or BacteriaWhat?s got you sick?Antibiotics only [...] for Disease Control and Prevention April 2014 [facility] Vital Signs Date Time Vital Sign Value Performing Clinician Facility 08-19-2023 16:00-0500 Body height 170.18 cm Zara Ramo Other [facility] Other 08-19-2023 16:00-0500 Body mass index (BMI) [Ratio] 31.76 kg/m2 Zara Ramo Other [facility] Other 08-19-2023 16:00-0500 Body temperature 97.5 [degF] Zara Ramo Other [facility] Other 08-19-2023 16:00-0500 Body weight 91.99 kg Zara Ramo Other [facility] Other 08-19-2023 16:00-0500 Diastolic blood pressure 100 mm[Hg] Zara Ramo Other [facility] Other 08-19-2023 16:00-0500 Respiratory rate 18 /min Zara Ramo Other [facility] Other 08-19-2023 16:00-0500 SaO2% (BldA) [Mass fraction] 100 % Zara Ramo Other [facility] Other 08-19-2023 16:00-0500 Systolic blood pressure 170 mm[Hg] Zara Ramo Other [facility] Other 06-06-2022 16:17-0400 Diastolic blood pressure 89 mm[Hg] Immanuel Kirby [facility] Work Phone: 06-06-2022 16:17-0400 Systolic blood pressure 138 mm[Hg] Immanuel Kirby Work Phone: [facility] DO Work Phone: 06-06-2022 15:45-0400 Body height 170.18 cm Immanuel Kirby Work [facility] DO Work Phone: 06-06-2022 15:45-0400 Body mass index (BMI) [Ratio] 47.77 kg/m2 Immanuel Kirby Work [facility] DO Work Phone: 06-06-2022 15:45-0400 Body surface area Derived from formula 2.42 m2 Immanuel Kirby Work Phone[facility] DO Work Phone: 06-06-2022 15:45-0400 Body weight 138.35 kg Immanuel Kirby Work [facility] DO Work Phone: 06-06-2022 15:45-0400 Diastolic blood pressure 102 mm[Hg] Immanuel Mcgrather Work Phone: [facility] DO Work Phone: 06-06-2022 15:45-0400 Heart rate 71 /min Immanuel Mcgrather Work Phone: [facility] DO Work Phone: 06-06-2022 15:45-0400 Systolic blood pressure 160 mm[Hg] Immanuel Kirby Work Phone: [facility] DO Work Phone: Encounters Encounter Date Encounter Type Care Provider Facility Start: 08-23-2023 End: 08-23-2023 ambulatory Zara Ramo Other [facility] Other Start: 08-23-2023 Telephone encounter Zara Ramo [facility] Start: 08-22-2023 End: 08-22-2023 ambulatory SHEILA LOUIS Not Available Start: 08-21-2023 End: 08-22-2023 ambulatory MANASA DUNAWAY Not Available Start: 08-20-2023 End: 08-20-2023 ambulatory IMMANUEL KIRBY Facility:[facility] Start: 08-20-2023 End: 08-20-2023 ambulatory Vikki Bailey MD Work Phone: Endocrinology Comment on above: 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) Start: 08-20-2023 End: 08-20-2023 Telemedicine consultation with patient Vikki Bailey MD Work Phone: [facility] Start: 08-19-2023 End: 08-19-2023 ambulatory Zara Ramo Other [facility] Other Start: 08-19-2023 Office outpatient ne w 45 minutes Zara Ramo [facility] Start: 08-15-2023 End: 08-15-2023 ambulatory MANASA DUNAWAY Not Available Start: 08-14-2023 End: 08-14-2023 ambulatory SHEILA LOUIS Not Available Start: 08-07-2023 End: 08-07-2023 ambulatory ТАТЬЯНА Kohler RODRIGUEZ Not Available Start: 08-02-2023 End: 08-03-2023 [...] for preprocedural laboratory examination DR DOCTOR FARMER [facility] Start: 12-07-2022 End: 12-08-[address] IMMANUEL KIRBY Facility:[facility] Start: 12-07-2022 End: 12-08-2022 Encounter for preprocedural laboratory examination DR IMMANUEL KIRBY Facility:[facility] Start: 11-05-2022 ambulatory RAVINDRA LEMA [facility] Start: 10-23-2022 End: 10-24-2022 ambulatory ZAKIA BENSON Facility:[facility] Start: 10-22-2022 End: 10-23-2022 ambulatory RAVINDRA LEMA [facility] Start: 09-13-2022 End: 09-13-2022 ambulatory Manasa Rhodes Facility:[facility] Start: 09-13-2022 Encounter for other preprocedural examination Manasa Rhodes [facility] Start: 09-13-2022 End: 09-13-2022 ambulatory DO Immanuel Kirby Work Phone: [facility] Work Phone: Start: 09-13-2022 End: 09-13-2022 Patient encounter procedure DO Immanuel Kirby Work Phone: [facility] Work Phone: Start: 09-10-2022 End: 09-10-2022 ambulatory RAVINDRA LEMA [facility] Start: 09-07-2022 End: 09-08-[address] TE DARNELL . Facility:[facility] Start: 09-07-2022 End: 09-07-[address] TE DARNELL . Facility:[facility] Start: 09-07-2022 End: 09-07-2022 ambulatory Immanuel Kirby Facility:[facility] Start: 09-07-2022 End: 09-07-2022 ambulatory DO Immanuel Kirby Work Phone: [facility] Work Phone: Start: 09-07-2022 End: 09-07-2022 Patient encounter procedure DO Immanuel Kirby Work Phone: [facility] Work Phone: Start: 08-07-2022 Rx Renewal Immanuel Kirby Work Phone: [facility] DO Work Phone: Start: 06-06-2022 Office outpatient visit 25 minutes Immanuel Kirby Work Phone: [facility] DO Work Phone: Start: 06-06-[address] Della Kim Facility:[id number] Start: 01-04-2022 End: 01-05-[address] ESTHER ANGELES Facility:[facility] Start: 01-23-2018 End: 01-25-[facility] Patient encounter status Immanuel Kirby Work Phone: [facility] DO Work Phone: Plan of Treatment Date Care Activity Detail Author Start: 08-20-2023 End: 11-19-2023 Aldosterone [Mass/volume] in Serum or Plasma ALDOSTERONE BLD Lab Routine Adenoma of left adrenal gland Expected: 08/20/2023, Expires: 11/19/2023 [facility] Work Phone: Comment on above: Expected: 08/20/2023 , Expires: 11/19/2023 Start: 08-20-2023 End: 11-19-2023 Comprehensive metabolic 2000 panel - Serum or Plasma COMP METABOLIC PANEL Lab Routine Adenoma of left adrenal gland Expected: 08/20/2023, Expires: 11/19/2023 [facility] Work Phone: Comment on above: Expected: 08/20/2023 , Expires: 11/19/2023 Start: 08-20-2023 End: 11-19-2023 Corticotropin [Mass/volume] in Plasma ACTH BLD Lab Routine Adenoma of left adrenal gland Expected: 08/20/2023, Expires: 11/19/2023 [facility] Work Phone: Comment on above: Expected: 08/20/2023 , Expires: 11/19/2023 Start: 08-20-2023 End: 11-19-2023 Cortisol [Mass/volume] in Serum or Plasma CORTISOL BLD Lab Routine Adenoma of left adrenal gland Expected: 08/20/2023, Expires: 11/19/2023 [facility] Work Phone: Comment on above: Expected: 08/20/2023 , Expires: 11/19/2023 Start: 08-20-2023 End: 11-19-2023 DHEA-S BLD DHEA-S BLD Lab Routine Adenoma of left adrenal gland Expected: 08/20/2023, Expires: 11/19/2023 [facility] Work Phone: Comment on above: Expected: 08/20/2023 , Expires: 11/19/2023 Start: 08-20-2023 End: 11-19-2023 DIRECT RENIN PLASMA DIRECT RENIN PLASMA Lab Routine Adenoma of left adrenal gland Expected: 08/20/2023, Expires: 11/19/2023 [facility] Work Phone: Comment on above: Expected: 08/20/2023 , Expires: 11/19/2023 Start: 08-20-2023 End: 11-19-2023 METANEPHRINES, FREE PLASMA METANEPHRINES, FREE PLASMA Lab Routine Adenoma of left adrenal gland Expected: 08/20/2023, Expires: 11/19/2023 [facility] Work Phone: Comment on above: Expected: 08/20/2023 , Expires: 11/19/2023 Start: 08-05-2023 Depression Assessment Depression Ass essment [facility] Start: 04-05-2023 Influenza vaccination Influenza Vacc ine (#1) [facility] Start: 03-14-2023 FUV, Provider: Della Kim, Status: Pen, Time: 1:30 PM [facility]UV, Provider: Della Kim, Status: Pen, Time: 1:[address] [facility] [address] DO Work Phone: Start: 2021 Screening for malign ant neoplasm of cervix HPV Testing [facility] Start: 2012 Screening for malign ant neoplasm of cervix Pap Testing [facility] Start: 2010 Urine microalbumin profile DTaP,Tdap,Td Vaccine (1 - Tdap) [facility] Start: 2009 Hepatitis C screening Hepatitis C Sc keyur [facility] Start: 2009 HIV screening HIV Screening [facility] Start: 02-02-1992 Covid-19 Vaccine (#1) Covid-19 Vacci ne (#1) [facility] Start: 1991 Hepatitis B Vaccine (1 of 3 - 3-dose series) Hepatitis B Vaccine (1 of 3 - 3-dose series) [facility] Payers Date Payer Category Payer Self-pay [id number] 2022 Medicaid [employer] [employer] [employer] [id number] 2022-Present [phone] [address] [place] [address] Medicaid [id number] 1990 Unknown [id number] 2.16.840.1.384004.3.579.2.593 1990 Unknown [id number] 2.16.840.1.558151.3.579.2.593 1990 Unknown [id number] 2.16.840.1.673505.3.579.2.593 1990 Unknown [id number] 2.16.840.1.471628.3.579.2.593 1990 Unknown [id number] 2.16.840.1.044682.3.579.2.593 1990 Unknown [id number] 2.16.840.1.807191.3.579.2.356 1990 Unknown [id number] 2.16.840.1.023969.3.579.2.356 1990 Unknown [id number] 2.16.840.1.631280.3.579.2.1259 1990 Unknown [id number] 2.16.840.1.888114.3.579.2.1259 1991 Unknown [id number] 2.16.840.1.440487.3.579.2.1259 1991 Unknown [id number] 2.16.840.1.962948.3.579.2.1259 1991 Unknown [id number] 2.16.840.1.095381.3.579.2.1259 1991 Unknown [id number] 2.16.840.1.550817.3.579.2.1259 1991 Unknown [id number] 2.16.840.1.133930.3.579.2.1259 1991 Unknown [id number] 2.16.840.1.831850.3.579.2.1259 1991 Unknown [id number] 2.16.840.1.847478.3.579.2.1259 1991 Unknown [id number] 2.16.840.1.131897.3.579.2.1259 1991 Unknown [id number] 2.16.840.1.755477.3.579.2.1259 1991 Unknown [id number] 2.16.840.1.634729.3.579.2.1259 1958 Medicaid [id number] Unknown [facility] PLAN Unknown O [id number] Unknown [id number] 2.16.840.1.284848.3.579.2.531 Unknown [id number] 2.16.840.1.743833.3.579.2.531 Social History Date Type Detail Facility Start: 01-05-2020 End: 08-20-2023 No illicit drug use No illicit drug use [place] [address] DO Work Phone: Comment on above: quit 2021; Start: 11-09-2019 Tobacco smoking status [facility] Smoker (finding) [facility] Start: 1990 Sex Assigned At Female F [facility] Start: 01-05-2020 End: 08-20-2023 Sex Assigned At [facility] Other Start: 01-05-2020 Tobacco smoking status [facility] Never smoked tobacco [facility] Start: 01-05-2020 Tobacco use and exposure Smokeless tobacco non-user [facility] Start: 01-05-2020 Alcohol intake Current drinke r of alcohol (finding) [facility] National Score (1-100), lower number is lower risk 59 [facility] Start: 1990 Sex Assigned At Not on file [facility] Clinical Notes 09-10-2022 to 08-20-2023 Patient InstructionsVikki Bailey MD - 08/20/2023 1:43 PM EST Note Date & Type Note Facility 08-20-2023 Note HNO ID: [id number] Author: VIKKI BAILEY MD Service: ? Author Type: Physician Type: Progress Notes Filed: 08/25/2023 22:12 Note Text: Endocrinology and Metabolism [facility] Visit Note Virtual Visit (Audio/Visual) I have discussed the nature of this visit with the patient which will occur via [facility] (Phone, Virtual Visit) and he agrees to proceed with this interaction . I have communicated my name and active licensure. The patient's identity and physical location were verified at the time of this visit. Either the patient or their legal patient accounting representative has been informed of the risks and benefits of -- and alternatives to -- treatment through a remote evaluation and consents to proceed with the evaluation remotely. NAME: Heidi De La Vega is a 33 year old old female PCP: Immanuel Kirby DO Requesting Provider: No referring provider defined for this encounter. My final recommendations will be communicated back to the requesting physician by way of shared medical record or letter via US mail. Chief Complaint: History of Present Illness: Ms. Heidi De La Vega is a 33 year old female coming today for left adrenal adenoma. Hx of left adrenal adenoma since 2019 - incidentally discovered. She states she never underwent work-up for this. She had bariatric surgery performed in 12/2022 and reports losing 100lbs. Since then reports having problems with hypokalemia and elevated BP readings. PCP repeated CT Ab and noted change in size of the adrenal nodule and subsequently referred her to endocrinology and nephrology. She recently met with a investigator vice and was recommended to undergo some work-up. She is currently taking potassium chloride 20meq daily. Anti-hypertensives include hydralazine 100mg BID, Coreg 25mg BID. Patient Also described the following: Darkening of skin/gums:No, salt craving:No, Hypotension: No,Dizziness/lightheadedness: No,Fatigue: Yes, Nausea/Vomiting: No, Diarrhea: No Skin stretch mann:No, easy bruising:No, excess hair growth over face/chin/chest/or abdomen:No, voice hoarseness: No. difficulty raising arms overhead, difficulty getting up from a seated position:No Headache: No, Flushing: No, sweating: No, Chest pain: No, Palpitations: No, Tremor: No, Episodes of Headache, Sweating, palpitations or tremor: No Previous use of Steroids, oral, inhalers, injections: No, History of Adrenal mass: 2019 - 8mm left adrenal nodule 07/2023 - 18 mm PAST MEDICAL HISTORY Diagnosis Date Kidney stones Malignant brain tumor (HCC) 08/[address] Lema Microcytic anemia Otalgia of right ear PCOS (polycystic ovarian syndrome) Plantar fasciitis No past surgical history on file. FAMILY HISTORY Problem Relation Age of Onset Diabetes Mother Diabetes Father Heart disease Father Hypertension Father other (lung cancer) Paternal Grandmother Social History Tobacco Use Smoking status: Never Smokeless tobacco: Never Vaping Use Vaping Use: Never used Substance Use Topics Alcohol use: Yes Drug use: Never ALLERGIES No Known Allergies Current Outpatient Medications Medication Sig Ferrous Sulfate 27 mg iron tab Take by mouth twice daily. sertraline (ZOLOFT) 50 mg tablet Take 50 mg by mouth once daily. sertraline (ZOLOFT) 25 mg tablet Take 25 mg by mouth once daily. Norethindrone-Eth Estradiol (ALYACEN , 28,) 1-35 mg-mcg per tablet Take 1 tablet by mouth once daily. amLODIPine (NORVASC) 10 mg tablet Take 10 mg by mouth once daily. terazosin (HYTRIN) 2 mg capsule Take 2 mg by mouth daily at bedtime. propranolol HCl (PROPRANOLOL ORAL) Take 40 mg by mouth twice daily. minocycline 100 mg capsule Take 1 capsule by mouth twice daily. No current facility-administered medications for this visit. Review of Systems: Review of Systems All other systems reviewed and are negative. Physical exam: There were no vitals taken for this visit. GENERAL: Well nourished, well hydrated, in no distress, and oriented x 3 Previous laboratory results: 08/07/2022: Dominguez 10 Plasma renin activity 0.4 Imaging: CT 07/2023 A left adrenal nodule measures approximately 18 mm. Precontrast Hounsfield units of 6, 75-second postcontrast Hounsfield units of 29, and 15-minute delayed Hounsfield units of -44 absolute washout of 143.5% and relative washout of 113.8%. Postsurgical changes of the stomach. The liver, gallbladder, spleen, pancreas, and right adrenal gland are within normal limits. ASSESSMENT/PLAN: Heidi De La Vega is a 33 year old female with PMHx of bariatric surgery in 12/2022 here to discuss about left adrenal adenoma and its possible association with hypokalemia and HTN. She has hx of left adrenal adenoma since 2019 with recently noted increase is size (from 8mm to 18mm). Plan Adrenal mass evaluation Prevalence of adrenal tumors discovered on cross-sectional imaging is around 5- (more content not included)... [facility] 08-20-2023 Instructions Vikki Bailey MD - 08/20/2023 2:03 PM EST Adrenal Incidentaloma Patient Information An adrenal incidentaloma is an unsuspected tumor in one or both of your adrenal glands. This type of tumor is usually found by chance during an imaging test, such as an ultrasound or CT scan, for another condition. Endocrine Connection Adrenal tumors can be either non-functional or functional. Functional adrenal tumors make hormones in higher amounts than normal. Both cancerous and non-cancerous tumors can produce too much hormone. Tumors can sometimes make too much of more than one hormone. These hormones include: Cortisol - Mohit syndrome or subclinical hypercortisolism are conditions caused by too much cortisol Aldosterone - Primary aldosteronism is a condition caused by too much aldosterone Adrenaline hormones (epinephrine and norepinephrine) - Pheochromocytomas are rare adrenal tumors that produce too much adrenaline hormone Androgens (testosterone and testosterone building blocks) Diagnosis and Prevention Your doctor will evaluate your tumor to identify its cause and hormone production. This may include: Your medical history A review of your symptoms A physical exam: a check of your blood pressure, pulse rate, body weight, and other signs Blood and/or urine tests to check hormone levels and to rule out hormone excess Results of genetic tests (rarely) Your doctor also will need to know your family history of adrenal tumors, other kinds of tumors, high calcium levels, kidney stones, high blood pressure, or other hormone problems. There are a number of causes of adrenal tumors including: An adenoma (a non-cancerous tumor in the adrenal glands) Cancer of the adrenal gland or spread of cancer from elsewhere in the body Cysts in or on the adrenal glands Other less common conditions, such as tumors filled with fat and blood cells Symptoms and Risk Factors Even when discovered incidentally, adrenal tumors may cause symptoms. Symptoms vary depending on whether the tumor is non-functional or functional, and which, if any, hormones are produced in excess. Symptoms of too much cortisol can include: Weight loss or weight gain (especially around the face and abdomen) Purplish skin stretch mann or skin that s easily bruised Muscle weakness Depression, anxiety, fatigue, and sleep disturbances In women, excess facial and body hair, acne, and/or irregular menstrual periods High blood pressure High blood sugar Low bone density (when your bones start to thin and become more brittle) Symptoms of too much aldosterone can include: High blood pressure Low blood potassium levels Muscle weakness (rarely) Symptoms of too much norepinephrine or epinephrine can include: Fast or irregular heartbeat Sweating Severe headaches Shakiness Pale face High blood pressure Symptoms of high levels of androgens in women can include: Excess facial and body hair Male-pattern baldness Acne Irregular menstrual periods Treatment and therapies: About 85% of adrenal tumors are non-functioning and may not need treatment. Sometimes surgery is needed to remove the tumor, or one or both adrenal glands. Your medical team will decide whether you need surgery based on your type of tumor (benign or cancerous) and whether it is producing hormones. If you have an inherited tumor syndrome, you may need genetic counseling. If you ve had an adrenal incidentaloma, you may need regular follow-up to repeat hormone testing and radiologic imaging. Source: [email or web address]://[email or web address].org/patient -[email or web address]/[email or web address]-library/adr [email or web address] Adrenal mass evaluation Prevalence of adrenal tumors discovered on cross-sectional imaging is around 5-10%. Most of adrenal tumors are benign (92%), but 8% can be cancerous. Adrenal tumors can be non-functioning or secrete adrenal hormones in excess ( up to 50% of adrenal tumors). In any patient with adrenal mass, 2 questions need to be answered: 1) Is the adrenal mass malignant or benign? And 2) Is the adrenal mass hormonally active. As far as the first question, we rely on imaging characteristics, tumor growth, and in certain situations steroid profiling. As far as the second questions, we perform the following tests: 1)Tests for catecholamine excess (with either plasma metanephrines OR urinary catecholamines and metanephrines) - needed only if adrenal tumors are indeterminate or Hounsfield unit measurement is >10. In this case the imaging is inconsistent with pheochromocytoma. 2) Tests for aldosterone excess (initial case detection tests with morning aldosterone and renin concentration measurement) - needed only if hypertension is present. 3) Tests for cortisol excess (with 1 mg dexamethasone suppression, and baseline ACTH and DHEAS on a different morning) - needed in any asymptomatic or symptomatic patient. As a summary, we will obtain baseline ACTH, AM cortisol, DHEAS, PRC, PAC. Then, we will do a 1 mg DST and check AM cortisol on a different day. I sent the prescription but have not ordered the AM cortisol for this one yet. Patient will inform me when the baseline labs are completed then I will put this through to avoid the confusion at the lab. Dexamethasone suppression test: We will proceed with a dexamethasone suppression test to further investigate the high cortisol level. Explanation of the test: To explain it as simply as possible, you take a pill at bedtime and then get blood work the next morning. How does it work? The pill is a steroid medicine (ie - looks like cortisol) If your system for producing cortisol is working normally, then you should not make any cortisol the next morning after taking this medication, as your body gets tricked into thinking there is already enough. If the cortisol is not suppressed, then it means that you could be over-producing cortisol and more testing may be done to confirm. Directions for dexamethasone suppression test: 1. Take dexamethasone 1-mg tab by mouth at 11 PM the evening before your test. 2. Go to the lab the next morning and have your blood drawn at ~8 AM. *Do not eat or drink anything other than water from the time you take dexamethasone to the time you get your blood drawn. 3. If either of the following situations happen, DO NOT HAVE YOUR BLOOD DRAWN: A. You forget to take the pill at 11 PM the evening before B. You cannot get your blood drawn the next morning at ~8 AM C. If either situation happens, please call me to let me know documented in this encounter [facility] 08-20-2023 History of Present illness Narrative Endocrinology and Metabolism [facility] Visit Note Virtual Visit (Audio/Visual) I have discussed the nature of this visit with the patient which will occur via [facility] (Phone, Virtual Visit) and he agrees to proceed with this interaction . I have communicated my name and active licensure. The patient's identity and physical location were verified at the time of this visit. Either the patient or their legal patient accounting representative has been informed of the risks and benefits of -- and alternatives to -- treatment through a remote evaluation and consents to proceed with the evaluation remotely. NAME: Heidi De La Vega is a 33 year old old female PCP: Immanuel Kirby DO Requesting Provider: No referring provider defined for this encounter. My final recommendations will be communicated back to the requesting physician by way of shared medical record or letter via [place] mail. Chief Complaint: History of Present Illness: Ms. Heidi De La Vega is a 33 year old female coming today for left adrenal adenoma. Hx of left adrenal adenoma since 2019 - incidentally discovered. She states she never underwent work-up for this. She had bariatric surgery performed in 12/2022 and reports losing 100lbs. Since then reports having problems with hypokalemia and elevated BP readings. PCP repeated CT Ab and noted change in size of the adrenal nodule and subsequently referred her to endocrinology and nephrology. She recently met with a investigator vice and was recommended to undergo some work-up. She is currently taking potassium chloride 20meq daily. Anti-hypertensives include hydralazine 100mg BID, Coreg 25mg BID. Patient Also described the following: Darkening of skin/gums:No, salt craving:No, Hypotension: No,Dizziness/lightheadedness: No,Fatigue: Yes, Nausea/Vomiting: No, Diarrhea: No Skin stretch mann:No, easy bruising:No, excess hair growth over face/chin/chest/or abdomen:No, voice hoarseness: No. difficulty raising arms overhead, difficulty getting up from a seated position:No Headache: No, Flushing: No, sweating: No, Chest pain: No, Palpitations: No, Tremor: No, Episodes of Headache, Sweating, palpitations or tremor: No Previous use of Steroids, oral, inhalers, injections: No, History of Adrenal mass: 2019 - 8mm left adrenal nodule 07/2023 - 18 mm PAST MEDICAL HISTORY Diagnosis Date Kidney stones Malignant brain tumor (HCC) 08/[address] Lema Microcytic anemia Otalgia of right ear PCOS (polycystic ovarian syndrome) Plantar fasciitis No past surgical history on file. FAMILY HISTORY Problem Relation Age of Onset Diabetes Mother Diabetes Father Heart disease Father Hypertension Father other (lung cancer) Paternal Grandmother Social History Tobacco Use Smoking status: Never Smokeless tobacco: Never Vaping Use Vaping Use: Never used Substance Use Topics Alcohol use: Yes Drug use: Never ALLERGIES No Known Allergies Current Outpatient Medications Medication Sig Ferrous Sulfate 27 mg iron tab Take by mouth twice daily. sertraline (ZOLOFT) 50 mg tablet Take 50 mg by mouth once daily. sertraline (ZOLOFT) 25 mg tablet Take 25 mg by mouth once daily. Norethindrone-Eth Estradiol (ALYACEN , 28,) 1-35 mg-mcg per tablet Take 1 tablet by mouth once daily. amLODIPine (NORVASC) 10 mg tablet Take 10 mg by mouth once daily. terazosin (HYTRIN) 2 mg capsule Take 2 mg by mouth daily at bedtime. propranolol HCl (PROPRANOLOL ORAL) Take 40 mg by mouth twice daily. minocycline 100 mg capsule Take 1 capsule by mouth twice daily. No current facility-administered medications for this visit. Review of Systems: Review of Systems All other systems reviewed and are negative. Physical exam: There were no vitals taken for this visit. GENERAL: Well nourished, well hydrated, in no distress, and oriented x 3 Previous laboratory results: 08/07/2022: Dominguez 10 Plasma renin activity 0.4 Imaging: CT 07/2023 A left adrenal nodule measures approximately 18 mm. Precontrast Hounsfield units of 6, 75-second postcontrast Hounsfield units of 29, and 15-minute delayed Hounsfield units of -44 absolute washout of 143.5% and relative washout of 113.8%. Postsurgical changes of the stomach. The liver, gallbladder, spleen, pancreas, and right adrenal gland are within normal limits. ASSESSMENT/PLAN: Heidi De La Vega is a 33 year old female with PMHx of bariatric surgery in 12/2022 here to discuss about left adrenal adenoma and its possible association with hypokalemia and HTN. She has hx of left adrenal adenoma since 2019 with recently noted increase is size (from 8mm to 18mm). Plan Adrenal mass evaluation Prevalence of adrenal tumors discovered on cross-sectional imaging is around 5-10%. Most of adrenal tumors are benign (92%), but 8% can be cancerous. Adrenal tumors can be non-functioning or secrete adrenal hormones in excess ( up to 50% of adrenal tumors). In any patient with adrenal mass, 2 questions need to be answered: 1) Is the adrenal mass malignant or benign? And 2) Is the adrenal mass hormonally active. As far as the first question, we rely on imaging characteristics, tumor growth, and in certain situations steroid profiling. As far as the second questions, we perform the following tests: 1)Tests for catecholamine excess (with either plasma metanephrines OR urinary catecholamines and metanephrines) - needed only if adrenal tumors are indeterminate or Hounsfield unit measurement is >10. In this case the imaging is inconsistent with pheochromocytoma, no further work up for this is required . 2) Tests for aldosterone excess (initial case detection tests with morning aldosterone and renin concentration measurement) - needed only if hypertension is present. 3) Tests for cortisol excess (with 1 mg dexamethasone suppression, and baseline ACTH and DHEAS on a different morning) - needed in any asymptomatic or symptomatic patient. As a summary, we will obtain baseline ACTH, AM cortisol, DHEAS, PRC, PAC. Then, we will do a 1 mg DST and check AM cortisol on a different day. I sent the prescription but have not ordered the AM cortisol for this one yet. Patient will inform me when the baseline labs are completed then I will put this through to avoid the confusion at the lab. She agreed to get the labs done at [facility], I provided her with the lab phone number to make an appointment. Vikki Bailey MD [facility] Endocrinology and Metabolism [place] [facility] [phone] Medical Decision Making: Problems: Moderate: 1+ chronic illnesses with change Data: Unique source(s) for external note(s) reviewed: 1 Unique test result(s) reviewed: 3+ Unique test(s) ordered: 3+ Medical Decision Making Level: 4 - Moderate documented in this encounter [facility] 08-19-2023 Evaluation note Encounter Date Diagnosis Assessment Notes Aug, Hypokalemia (ICD-10 - E87.6) It was a pleasure to see Mrs. De La Vega in our office for evaluation and management of hypokalemia. As you know she has a longstanding hypokalemia and metabolic alkalosis and hypertension. Differential diagnoses are broad and include primary hyperaldosteronism, [place] syndrome, Gettleman syndrome and Bartter syndrome. I [...] of the adrenal nodule with serial imaging. [facility] Other 04-03-2023 NoteIn person visit Chief complaint: follow up for prior right frontal glioma [place]: 32 y/o woman - she had [...] repeat MRI brain w/wout contrast. 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 She had migraines and high blood pressure [...] 2019 - most recent imaging was about 2019. She has headaches but has history of migraines as well has her tumor related headaches. No seizures. I will order her new MRI for surviellance - which is indicated because primary brain tumors are prone to recurrence over time and sometimes transformation into higher grade lesions. MRI brain w/wout contrast. FU with me after the MRI is completed. Ravindra Lema [facility] HospitalChief complaint Narrative - ReportedRACHEL CEFERINO is being seen for a consultation for. DEDE Benson, [facility] Bariatrics- Bariatric sxMP-[facility] [address] DO Work Phone: Evaluation noteNo assessment information available [facility] Work Phone: Evaluation noteNo InformationNort [employer] Other Evaluation note* Diagnosis Adenoma of left adrenal gland- Primary Benign neoplasm of adrenal gland documented in this encounter [facility] general Narrative - Reported* Type Description Date Medical History mass on left adrenal gland Medical History HYPOKALEMIA Medical History NERVOUS Medical History DYSMENORRHEA Medical History GENERALIZED HEADACHE Medical History NEUROPATHY Medical History INSOMNIA RELATED TO ANOTHER MENT AL DISORDER Medical History PSYCHOPHYSIOLOGICAL INSOMNIA Medical History FIRST DEGREE AV BLOCK Medical History PRIMARY HYPERTENSION Medical History GERD Medical History IRRITABLE BOWEL SYNDROME WITH DI ARRHEA Medical History IRREGULAR MENSTRUATION Medical History EXCESSIVE AND FREQUENT MENSTRUAT ION Medical History PRIMARY OSTEOARTHRITIS OF LEFT K NEE Medical History DIABETES MELLITUS Medical History IRON DEFICIENCY Medical History MORBID OBESITY Medical History PCOS 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, WITHOUT VALVE PIPE IRRIGATOR CURRENT USE OF INSULIN Medical History MICROSYTIC ANEMIA Medical History BIPOLAR AFFECTIVE DISORDER, CURR ENTLY DEPRESSED, MILD Medical History CANNABIS ABUSE Medical History MALIGNANT NEOPLASM OF BRAIN Surgical History brain tumor removed malignant 0 -2018 Surgical History DILATION AND CURETTAGE ESOPHAGO GASTRODUODENOSCOPY Surgical History INGROWN TOENAIL Surgical History ANKLE SCOPE PLANTAR FASCIOTOMY 2017 Surgical History RIGHT FRONTAL LOBEECTOMY 2018 Surgical History ENDOSCOPIC PLANTAR FASCIOTOMY 2 023 Surgical History GASTRIC BYPASS 12/2022 Hospitalization History SEE ABOVE [facility] Other History of Present illness Narrative* Patient is here for evaluation for preoperative risk assessment. She is a 31-year-old with previoushistory of resection of malignant brain tumor, morbid [...] or premature sudden cardiac in the family * Assessment * 1. Hypertension appears to be controlled. She report her recent CT scan suggest of possible adrenalmass. She reports she was seen by endocrinology but apparently no work-up was done according to her * 2. Obesity with recent significant weight gain * 3. History of malignant brain tumor status post resection detail is lacking * 4. History of polycystic ovary disease with heavy menses * 5. Iron deficiency anemia * . Patient was seen in the past by endocrinology for concern about adrenal abnormalities * Plan * 1. Preoperative risk assessment for bariatric surgery. Patient is functional class I with no cardiac symptoms with normal cardiovascular examination abnormal EKG. Based on ACC/AHA guidelines patient can proceed to surgery without any delay or testing * 2. I counseled the patient at great length regarding nonpharmacologic approach for treatment of hypertension including diet, exercise, salt restriction and weight loss * 3 . Continue present antihypertensive medication 9 4. Follow-up in 9 months [facility] [address] DO Work Phone: Summary Purpose Family History No Family History Records FoundNo Family History Records FoundNo Family History Records FoundNo Family History Records FoundNo Family History Records FoundNo Family History Records FoundNo Family History Records FoundNo Family History Records FoundNo Family History Records FoundNo Family History Records FoundNo Family History Records Found Advance Directives Advance Directive Response Recorded Date/ Time Advance Directives No November 08 1:58pm Chief Complaint and Reason for Visit Chief Complaint e87.6 Chief Complaint e87.6 M72.2 Z01.818 Additional Source Comments INFORMATION SOURCE (unrecogn ized section and content) DATE CREATED AUTHOR 01/29/2018 [facility] DATE CREATED AUTHOR AUTHOR'S ORGANIZ ATION 03/21/2020 [facility] DATE CREATED AUTHOR AUTHOR'S ORGANIZ ATION 09/12/2021 [facility] DATE CREATED AUTHOR AUTHOR'S ORGANIZ ATION 10/06/2021 [facility] dical Specialist DATE CREATED AUTHOR AUTHOR'S ORGANIZ ATION 06/07/2022 [facility] DATE CREATED AUTHOR AUTHOR'S ORGANIZ ATION 09/19/2022 [facility] DATE CREATED AUTHOR AUTHOR'S ORGANIZ ATION 11/19/2022 [facility] DATE CREATED AUTHOR AUTHOR'S ORGANIZ ATION 12/14/2022 [facility] DATE CREATED AUTHOR AUTHOR'S ORGANIZ ATION 03/19/2023 [facility] DATE CREATED AUTHOR AUTHOR'S ORGANIZ ATION 08/25/2023 [facility]ists [facility] DATE CREATED AUTHOR AUTHOR'S ORGANIZ ATION 08/25/2023 [facility] Care Teams (unrecognized sec tion and content) Team Status: Inactive Member Role Status Dates Immanuel Kirby DO Primary Care Provider Active RAYRAY KramerC Attending Provider Active Team Status: Active Member Role Status Dates Immanuel Kirby DO Primary Care Provider Active Team Status: Inactive Member Role Status Dates Immanuel Kirby DO Primary Care Provider Active Manasa Rhodes DPM Attending Provider 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 Specialty Start Date End Date Immanuel Kirby DO [address] [place] [address] PCP - General Family Medicine 10/23/12 Esther Angeles MD [address] [place] [address] Referring Obstetrics 01/28/20 Татьяна Rodriguez, PA-C [address] [place] [address] Referring Physician Detailer Furniture 08/08/23 Goals (unrecognized section and content) Goals may be documented in a n alternate sectionGoals may be documented in an alternate sectionNo InformationNo Information REASON FOR VISIT (unrecogniz ed section and content) Reason Comments New Patient Adrenal Source Comments (unrecognize d section and content) In the event this informatio n is protected by the Federal Confidentiality of Alcohol and Drug Abuse Patient Records regulations: The Federal rules restrict any use of the information to criminally investigate or prosecute any alcohol or drug abuse patient.[facility] FOR RECORDS PERTAINING TO PATIENTS WHO ARE [...] BE BASED ON THE PRIMARY CLINICAL RECORDS. [facility] provides no warranty or guarantee of the accuracy or completeness of information in this document.
[2023-08-26 13:19] LABS: Potassium 2.3 mmol/L (3.5-5.1)
== END 2023-08-26 11:47 | disposition home or self-care (01) ==
LOC: LAB 11:46
PROVIDERS: PCP Family Medicine
DX: K90.9 Intestinal malabsorption, unspecified (principal); Z98.84 Bariatric surgery status; E87.6 Hypokalemia
CPT/HCPCS: 36415; 84132

== ENCOUNTER 2023-09-02 12:28 | Outpatient (OUT) | payer OTHER, SELFPAY ==
--- OUTSIDE RECORDS SUMMARY | 2023-09-02 12:31 | XMS_ITS | CCD ---
Author Name Unknown Address [facility] [address] [place] [address] Organization [facility] Care Team Providers Care Pathology Specialist Name Role Phone Spasic, Carmelo Unavailable Unavailable Spasic, Carmelo Unavailable Unavailable IMMANUEL KIRBY Unavailable Unavailable Immanuel Kirby Unavailable Unavailable Unavailable DO Immanuel Kirby Primary Care Provider NETTIE Prakash Attending Provider REJI Rhodes Attending Provider RVAINDRA LEMA Referring Unavailable RAVINDRA LEMA Attending Unavailable [...] Admitting Unavailable MISC, DR INIGUEZ Attending Unavailable ALBETROC, DR INIGUEZ Consulting Unavailable BRIDGETTE, DR MURO Admitting Unavailable BRIDGETTE, DR MURO Attending Unavailable BRIDGETTE, DR MURO Consulting Unavailable BAM, DR MILLER Primary Care Unavailable Judy, Dr. Hull Attending Unavaila darryn Kirby, Dr. Immanuel Toure Primary Care Unavaila ble Judy, Dr. Hull Attending Unavaila ble Judy, Dr. Hull Referring Unavaila darryn Kirby, Dr. Immanuel Toure Primary Care Unavaila ble Ramo, Zara Unavailable JUAN BARON Attending Unavailable TRENTON, MANASA H Referring Unavailable ТАТЬЯНА RODRIGUEZ Attending Unavailable IMMANUEL KIRBY Referring Unavailable SHEILA LOUIS Attending Unavailable TRENTON, MANASA H Attending Unavailable TRENTON, MANASA H Referring Unavailable SHEILA LOUIS Attending Unavailable SHEILA LOUIS Attending Unavailable IMMANUEL KIRBY Referring Unavailable ALEX NAIK Attending Unavailable TRENTON, MANASA H Referring Unavailable JUAN BARON Attending Unavailable TRENTON, MANASA H Referring Unavailable JHONY GARCIA Attending Unavailable DUNAWAY, MANASA H Referring Unavailable JUAN BARON Attending Unavailable TRENTON, MANASA H Referring Unavailable Immanuel Kirby DO Primary Care Provider Bridgette URIBE, Esther Fontenot Unavailable Татьяна Rodriguez PA-C Unavailable DO Immanuel Kirby Primary Care Provider MD Zara Ralph Attending Provider Ramo, Zara Admitting Unavailable Ramo, Zara Attending Unavailable Immanuel Kirby Primary Care Unavailable Dwain Itarra A Admitting Unavailable Tiarra Prakash Attending Unavailable Immanuel Kirby Primary Care Unavailable Manasa Dunaway Attending Unavailable Immanuel Kirby Primary Care Unavailable Anish Dunawayra Admitting Unavailable IMMANUEL KIRBY Primary Care Unavailable VEERAMACSLICKENI, RAVALI Referring Unavailab IMMANUEL Garcia Primary Care Unavailable VEERAMACSLICKENI, VIKKI Attending Unavailab dong Allergies Allergy Classification Reported Allergen(s) Allergy Type Date of Onset Reaction(s) Facility (1 source) No Known Medication Allergies; Translations: [No Known Medication Allergies] Propensity to adverse reactions to drug (disorder) [facility] Repository Medications Current Medications Medication Drug [...] . loperamide hydrochloride 2 mg oral tablet (3 sources) Opioid Agonist Start: 05-03-2017 Loperamide (Imodium [...] Active promethazine hydrochloride 25 mg oral tablet (3 sources) Phenothiazine Start: 05-03-2017 take 25 mg [...] on above: Take 1 tablet by rosita th two times a day. dexamethasone 1 mg [...] tablet by mouth once daily, then take [id number] 57 tablet by mouth once Norethindrone-Eth Estradiol (ALYACEN 1/, 28,) 1-35 mg-mcg per tablet Take 1 tablet by mouth once daily. 0 08/20/2023 Discontinued Comment on above: Take 1 tablet by rosita th once daily. ferrous sulfate 134 mg oral [...] Start: 04-23-2022 take 1 tablet by rosita th twice daily at mealtime hydrALAZINE HCl - 25 MG Oral Tablet TAKE 1 TABLET BY MOUTH TWICE A DAY WITH FOOD Quantity: 180 Refills: 0 Ordered: 24-Apr-2022 DO Start : 23-Apr-2022 Active Comment on above: Take 1 tablet by rosita th two times a day. minocycline 100 mg oral capsule (1 source) Tetracycline-cla ss Drug Start: 11-27-19 End: 08-20-19 24 take 1 capsule by mouth twice daily minocycline 100 mg capsule Take 1 capsule by mouth twice daily. 60 capsule 4 11/26/2012 08/20/2023 Discontinued Comment on above: Take 1 capsule by mo [facility] twice daily. Natazia 3/2-2/2-3/1 MG Oral Tablet [...] brain, unspecified] Onset: 10-22-2022 Chronic Essential hypertension (8 sources) Benign essential hypertension; Translations: [Benign essential hypertension] 05-03-2017 Chronic Menstrual disorders (1 source) Dysmenorrhea, unspecified; Translations: [DYSMENORRHEA UNSPECIFIED] Onset: 01-10-2022 Chronic Nausea and vomiting (3 sources) Nausea; Translations: [Nausea] 05-03-2017 Episodic Other and unspecified benign neoplasm (1 source) Adenoma of left adrenal gland; Translations: [Benign neoplasm of left adrenal gland] 08-20-2023 Episodic Other and unspecified benign neoplasm (1 source) Benign neoplasm of left adrenal gland; Translations: [Adenoma of left adrenal gland] Onset: 08-20-2023 Episodic Other endocrine disorders (2 sources) Polycystic [...] syndrome with diarrhea] Chronic Other gastrointestinal disorders (3 sources) Diarrhea; Translations: [Diarrhea, unspecified] 05-03-2017 Episodic [...] Da te Episodic/Chronic Fluid and electrolyte disorders (7 sources) Hypokalemia; Translations: [Alkalosis] Onset: 09-07-2022 Episodic Nutritional deficiencies (1 source) Iron deficiency; Translations: [Iron deficiency] Onset: 02-02-2020 02-02-2020 Episodic Other aftercare (1 source) Other fdc (current) drug therapy; Translations: [[facility] CURRENT DRUG THERAPY] Onset: 09-10-2022 Episodic Other connective tissue disease (1 source) Plantar fascial fibromatosis; Translations: [Plantar fascial fibromatosis] Onset: 09-13-2022 Episodic Other skin disorders (1 source) Axillary hidradenitis suppurativa; Translations: [Hidradenitis suppurativa] Onset: 10-27-2012 10-27-2012 Episodic Other skin disorders (1 source) Comedone; Translations: [Acne vulgaris] Onset: 10-27-2012 10-27-2012 Episodic Results Test Name Value Interpretation Reference Range Facility US renal doppleron US renal doppler [facility] [place] [address] Ultrasound Report Signed Patient: Heidi De La Vega MR#: [id number] : 1990 Acct:[id number] Age/Sex: 33 / F ADM Date: 08/30/23 Loc: Room: Type: [facility] Attending Dr: Zara Ralph MD Ordering Provider: Zara Ralph MD Date of Service: 08/30/23 US/US renal doppler: E87.6, E87.3, I10. E27.9 Copies to: Zara Ralph MD Renal artery duplex examination performed using B-mode, color flow and spectral Doppler assessment. (CPT: 69134) INDICATION: Hypertension FINDINGS: Aorta: PSV 94.9 cm/s Right Kidney Size: 12.07 cm x 5.72 cm x 5.76 cm Left Kidney Size: 11.54 cm x 1.27 cm x 6.13 cm Right renal artery origin: PSV 61.4 cm/s Right proximal renal artery: PSV 91.3 cm/s Right mid renal artery: PSV 87.9 cm/s Right distal renal artery: PSV 90.7 cm/s RI: 0.78 RAR: 0.96 Left renal artery origin: PSV 79.6 cm/s Left proximal renal artery: PSV 78.9 cm/s Left mid renal artery: PSV 80.5 cm/s Left distal renal artery: PSV 86.5 cm/s RI: 0.69 RAR: 0.92 US/US renal doppler IMPRESSION: No evidence of hemodynamically significant renal artery stenoses, bilaterally. Impression dictated by: Efrem Jo MD08/31/2023 3:55 PM [facility]ictation [facility] Tech: Hermelinda Alonso Transcribed By: KATHLEEN 08/31/23 155 Dictated By: Efrem Jo MD 08/31/23 155 Signed By: 08/31/23 1555 [facility] ACTH Plas-mCncon 08-30-2023 Corticotropin (P) [Mass/Vol] 22.2 pg/mL Normal 7.2-63.3 [facility] Comment on above: Order Comment: Speci men Type: BLOOD SPECIMEN Ordering Facility: [facility] Address: [address] [place] [address] Result Comment: ACTH Reference Range: 7-10 am: 7.2 - 63.3 pg/mL Performed By: #### 2 141-0 #### [facility] CLIA [id number] [address] [place] [address] [facility] Comprehensive metabolic 2000 panelon 08-30-2023 Albumin [Mass/Vol] 4.2 g/dL Normal 3.9-4.9 [facility] Comment on above: Order Comment: Speci men Type: BLOOD SPECIMEN Ordering Facility: [facility] Address: [address] [place] [address] Performed By: #### 2 4323-8 #### [facility] CLIA [id number] [address] [place] [address] ALP [Catalytic activity/Vol] 127 U/L High 34-123 [facility] Comment on above: Order Comment: Speci men Type: BLOOD SPECIMEN Ordering Facility: [facility] Address: [address] [place] [address] Performed By: #### 2 4323-8 #### [facility] CLIA [id number] [address] [place] [address] ALT [Catalytic activity/Vol] 16 U/L Normal 7-38 [facility] Comment on above: Order Comment: Speci men Type: BLOOD SPECIMEN Ordering Facility: [facility] Address: [address] [place] [address] Performed By: #### 2 4323-8 #### [facility] CLIA [id number] [address] [place] [address] Anion gap [Moles/Vol] 10 mmol/L Normal 9-18 [facility] Comment on above: Order Comment: Speci men Type: BLOOD SPECIMEN Ordering Facility: [facility] Address: [address] [place], [place] [address] Performed By: #### 2 4323-8 #### [facility] CLIA [id number] [address] [place] [address] AST [Catalytic activity/Vol] 14 U/L Normal 13-35 [facility] Comment on above: Order Comment: Speci men Type: BLOOD SPECIMEN Ordering Facility: [facility] Address: [address] [place] [address] Performed By: #### 2 4323-8 #### [facility] CLIA [id number] [address] [place] [address] Bilirubin [Mass/Vol] 1.2 mg/dL Normal 0.2-1.3 [facility] Comment on above: Order Comment: Speci men Type: BLOOD SPECIMEN Ordering Facility: [facility] Address: [address] [place] [address] Performed By: #### 2 4323-8 #### [facility] CLIA [id number] [address] [place] [address] Calcium [Mass/Vol] 9.4 mg/dL Normal 8.5-10.2 [facility] Comment on above: Order Comment: Speci men Type: BLOOD SPECIMEN Ordering Facility: [facility] Address: [address] [place] [address] Performed By: #### 2 4323-8 #### [facility] CLIA [id number] [address] [place] [address] Chloride [Moles/Vol] 109 mmol/L High 97-105 [facility] Comment on above: Order Comment: Speci men Type: BLOOD SPECIMEN Ordering Facility: [facility] Address: [address] [place], [place] [address] Performed By: #### 2 4323-8 #### [facility] CLIA [id number] [address] [place] [address] CO2 [Moles/Vol] 27 mmol/L Normal 22-30 [facility] Comment on above: Order Comment: Speci men Type: BLOOD SPECIMEN Ordering Facility: [facility] Address: [address] [place] [address] Performed By: #### 2 4323-8 #### [facility] CLIA [id number] [address] [place] [address] Creatinine [Mass/Vol] 0.66 mg/dL Normal 0.58-0.96 [facility] Comment on above: Order Comment: Speci men Type: BLOOD SPECIMEN Ordering Facility: [facility] Address: [address] [place] [address] Performed By: #### 2 4323-8 #### [facility] CLIA [id number] [address] [place] [address] Creatinine and Glomerular filtration rate.predicted panel (S/P/Bld) 120 mL/min/1.73m??? Normal >=60 [facility] Comment on above: Order Comment: Speci men Type: BLOOD SPECIMEN Ordering Facility: [facility] Address: [address] [place] [address] Result Comment: Rachel mated Glomerular Filtration Rate (eGFR) is calculated using the 2020 CKD-EPI creatinine equation. This equation utilizes serum creatinine, sex, and age as parameters. The creatinine assay has traceable calibration to isotope dilution-mass spectrometry. Refer to KDIGO guidelines for clinical interpretation. In patients with unstable renal function, e.g. those with acute kidney injury, the eGFR may not accurately reflect actual GFR. Performed By: #### 2 4323-8 #### [facility] CLIA [id number] [address] [place] [address] Glucose [Mass/Vol] 91 mg/dL Normal 74-99 [facility] Comment on above: Order Comment: Speci men Type: BLOOD SPECIMEN Ordering Facility: [facility] Address: [address] [place] [address] Result Comment: The [place] Diabetes Association (ADA) provides guidance for cutoff [...] Standards of Medical Care in Diabetes 2016, [place] [employer] Association. Diabetes Care. 2016.39(Suppl 1). Performed By: #### 2 4323-8 #### [facility] CLIA [id number] [address] [place] [address] Potassium [Moles/Vol] 2.8 mmol/L Low 3.7-5.1 [facility] Comment on above: Order Comment: Speci men Type: BLOOD SPECIMEN Ordering Facility: [facility] Address: [address] [place] [address] Performed By: #### 2 432-8 #### [facility] CLIA [id number] [address] [place] [address] Protein [Mass/Vol] 6.7 g/dL Normal 6.3-8.0 [facility] Comment on above: Order Comment: Speci men Type: BLOOD SPECIMEN Ordering Facility: [facility] Address: [address] [place] [address] Performed By: #### 2 432-8 #### [facility] CLIA [id number] [address] [place] [address] Sodium [Moles/Vol] 146 mmol/L High 136-144 [facility] Comment on above: Order Comment: Speci men Type: BLOOD SPECIMEN Ordering Facility: [facility] Address: [address] [place] [address] Performed By: #### 2 4323-8 #### [facility] CLIA [id number] [address] [place] [address] Urea nitrogen [Mass/Vol] 12 mg/dL Normal 7-21 [facility] Comment on above: Order Comment: Speci men Type: BLOOD SPECIMEN Ordering Facility: [facility] Address: [address] [place] [address] Performed By: #### 2 4323-8 #### [facility] CLIA [id number] [address] [place] [address] Tamie SerPl-mCncon 08-30-19 24 Cortisol [Mass/Vol] 9.5 ug/dL Normal 4.8-19.5 [facility] Comment on above: Order Comment: Speci men Type: BLOOD SPECIMEN Ordering Facility: [facility] Address: [address] [place] [address] Result Comment: Prov ided reference range is from 6-10 AM sample collection time. Cortisol Reference Range: 6-10 AM = 4.8-19.5 ug/dL, 4-8 PM = 2.5-11.9 ug/dL Performed By: #### Jael NAVARRO 3-6 #### [facility] CLIA [id number] [address] [place] [address] [place] DHEA-S BLDon 08-30-2023 DHEA-S [Mass/Vol] 188.1 ug/dL Normal 98.8-340.0 [facility] Comment on above: Order Comment: Speci men Type: BLOOD SPECIMEN Ordering Facility: [facility] Address: [address] [place] [address] Result Comment: Refe rence ranges are age and gender specific. For additional information, reference range tables can be found in the laboratory test directory. The normal values are based on the following source: Dehydroepiandrosterone sulfate (DHEA S) [package insert V 17.0 [place]]. [facility], [place], [place]: March 2013. Performed By: #### Jael NAVARRO, 2143-6 #### [facility] CLIA [id number] [address] [place], [place] [address], [place] [address] [place] MR FOOT RIGHT WO IV CONTRAST on [...] bursitis as discussed. ELECTRONICALLY SIGNED BY: William Chorpa MD Normal Not Available CT ABDOMEN W [...] Painter, DO Normal Not Available [facility])on SARS-CoV-2 (COVID-19) RNA DARWIN+probe Ql (Unsp spec) Not detected Normal NOT DETECTED [facility] Comment on above: Result Comment: This test is not yet approved or cleared by the [place] FDA. When there are no FDA-approved or cleared tests available, and other criteria are met, FDA can make tests available under an emergency access mechanism called an Emergency Use Authorization (EUA). The EUA for this test is supported by the [place] of Health and Human Service's (HHS's) declaration [...] consistent with SARS-CoV-2. Performed By: #### [facility] #### [facility] [address] [place], [place] [address] Dr. Maylin Mckoy Follow-Upon 11-05-2022 Follow-Up [id number] Janine De La Vega 1990 F Date Provider Department Center 11/05/2022 Maryanne-RAVINDRA LEMA ONC [facility] Family History Problem Relation Age of Onset Diabetes Mother Thyroid cancer Mother Diabetes Father Hypertension Father Family Status - Relation Status Age at Mother Father Level of Service:83825 [place] OFFICE/OUTPATIENT ESTABLISHED MOD MDM 30-39 MIN Normal [facility] DRUG SCREEN RAPID (URINE)on 10-23-2022 AMP Negative Normal NEGATIVE [facility] Comment on above: Performed By: #### D RUGRPD #### [facility] [address] [place] [address] Dr. Maylin Mckoy BAR Negative Normal NEGATIVE [facility] Comment on above: Performed By: #### D RUGRPD #### [facility] [address] [place] [address] Dr. Maylin Mckoy BUP Negative Normal NEGATIVE [facility] Comment on above: Performed By: #### D RUGRPD #### [facility] [address] [place] [address] Dr. Maylin Mckoy BZO Negative Normal NEGATIVE [facility] Comment on above: Performed By: #### D RUGRPD #### [facility] [address] [place] [address] Dr. Maylin Mckoy DRE Negative Normal NEGATIVE [facility] Comment on above: Performed By: #### D RUGRPD #### [facility] [address] [place] [address] Dr. Maylin Mckoy CUT-OFFS SEE BELOW Normal [facility] Comment on above: Result Comment: AMP [...] ng/mL Performed By: #### D RUGRPD #### [facility] [address] [place] [address] Dr. Maylin Mckoy DRUG CUT HEADER DRUG CLASS TEST SYST EM CUT-OFF CONCENTRATIONS ARE FOLLOWS: Normal [facility] Comment on above: Performed By: #### D RUGRPD #### [facility] [address] [place] [address] [address] Maylin Mckoy mAMP Negative Normal NEGATIVE [facility] Comment on above: Performed By: #### D RUGRPD #### [facility] [address] [place] [address] [address] Maylin Mckoy MTD Negative Normal NEGATIVE [facility] Comment on above: Performed By: #### D RUGRPD #### [facility] [address] [place] [address] Dr. Maylin Mckoy OPI Negative Normal NEGATIVE [facility] Comment on above: Performed By: #### D RUGRPD #### [facility] [address] [place] [address] Dr. Maylin Mckoy OXY Negative Normal NEGATIVE [facility] Comment on above: Performed By: #### D RUGRPD #### [facility] [address] [place] [address] Dr. Maylin Mckoy PCP Negative Normal NEGATIVE [facility] Comment on above: Performed By: #### D RUGRPD #### [facility] [address] [place] [address] Dr. Maylin Mckoy PPX Negative Normal NEGATIVE [facility] Comment on above: Performed By: #### D RUGRPD #### [facility] [address] [place] [address] Dr. Maylin Mckoy TCA Negative Normal NEGATIVE [facility] Comment on above: Performed By: #### D RUGRPD #### [facility] [address] [place] [address] Dr. Maylin Mckoy THC Negative Normal NEGATIVE [facility] Comment on above: Performed By: #### D RUGRPD #### [facility] [address] [place] [address] Dr. Maylin Mckoy MR BRAIN W AND [...] of ventriculomegaly. Electronically signed: Frank Lara. Normal [facility] [place] Potassiumon 09-13-2022 Potassium [Moles/Vol] 3.3 mmol/L Low 3.5-5.1 [facility] Comment on above: Order Comment: Reaso n for Exam Plantar fasciitis;Encounter for preoperative assessment Result Comment: PERF ORMED BY: [place] [address] PATHOLOGIST ECONOMIC DEVELOPER MARY ANN LAL M.D. Performed By: #### K #### [address] Serum or plasma potassium me asurement (moles/volume)Ordered By: Manasa Rhodes on 09-13-2022 Potassium [Moles/Vol] 3.3 mmol/L 3.5-5.1 [facility] Office Visiton 09-10-2022 Follow-up visit [id number] Janine De La Vega 1990 F Date Provider Department Center 09/10/2022 RAVINDRA BUCKLEY ONC [facility] Family History Problem Relation Age of Onset Diabetes Mother Thyroid cancer Mother Diabetes Father Hypertension Father Family Status - Relation Status Age at Mother Father Level of Service:98720 [place] OFFICE/OUTPATIENT ESTABLISHED MOD MDM 30-39 MIN Reason for Visit and Comments: Consult [484] - Past patient, coming back today to have imaging reordered. Normal [facility] [place] Orders Onlyon 09-10-2022 Orders Only [id number] Janine De La Vega Hermes 1990 F Date Provider Department Center 09/10/2022 MONICA DOMINGUEZ ONC [facility] Family History Problem Relation Age of Onset Diabetes Mother Thyroid cancer Mother Diabetes Father Hypertension Father Family Status - Relation Status Age at Mother Father Normal [facility] MAGNESIUMon 09-07-2022 Magnesium [Mass/Vol] 1.9 mg/dL Normal 1.8-2.4 [facility] Comment on above: Performed By: #### M YAMILET Yun BMP #### [facility] [address] [place] [address] Dr. Maylin Mckoy PHOSPHORUSon 09-07-2022 Phosphate [Mass/Vol] 3.7 mg/dL Normal 2.6-4.7 [facility] Comment on above: Performed By: #### YAMILET Lopez, BMP #### [facility] [address] [place] [address] Dr. Maylin Mckoy PROF CHEM 8 (BAS METB)on Anion gap [Moles/Vol] 14.3 mmol/L Normal [facility] Comment on above: Performed By: #### Jose F Yun PHOS, BMP #### [facility] [address] [place] [address] [address] Maylin Mckoy Calcium [Mass/Vol] 9.3 mg/dL Normal 8.5-10.1 [facility] Comment on above: Performed By: #### Jose F Yun PHOS, BMP #### [facility] [address] [place] [address] [address] Maylin Mckoy Chloride [Moles/Vol] 105 mmol/L Normal 98-107 [facility] Comment on above: Performed By: #### M Court PHOS, BMP #### [facility] [address] [place] [address] [address] Maylin Mckoy CO2 [Moles/Vol] 31.0 mmol/L Normal 21.0-32.0 [facility] Comment on above: Performed By: #### M G, PHOS, BMP #### [facility] [address] [place] [address] [address] Maylin Mckoy Creatinine [Mass/Vol] 0.90 mg/dL Normal 0.55-1.02 [facility] Comment on above: Performed By: #### M G, PHOS, BMP #### [facility] [address] [place] [address] [address] Maylin Mckoy EGFR-AF BAHAMIAN >60 Normal >=60 [facility] Comment on above: Performed By: #### M Court, PHOS, BMP #### [facility] [address] [place] [address] [address] Maylin Mckoy EGFR-NON AF BAHAMIAN >60 Normal >=60 [facility] Comment on above: Performed By: #### JoseF Yun, PHOS, BMP #### [facility] [address] [place] [address] [address] Maylin Mckoy Glucose [Mass/Vol] 158 mg/dL Critically high 74-106 [facility] Comment on above: Performed By: #### M Court, PHOS, BMP #### [facility] [address] [place] [address] [address] Maylin Mckoy Potassium [Moles/Vol] 2.3 mmol/L Critically low 3.5-5.1 [facility] Comment on above: Performed By: #### M G, PHOS, BMP #### [facility] [address] [place] [address] [address] Maylin Mckoy Sodium [Moles/Vol] 147 mmol/L Critically high 136-145 [facility] Comment on above: Performed By: #### M G, PHOS, BMP #### [facility] [address] [place] [address] [address] Maylin Mckoy Urea nitrogen [Mass/Vol] 7.0 mg/dL Normal 7.0-18.0 [facility] Comment on above: Performed By: #### M YAMILET Yun BMP #### [facility] [address] [place], [place] [address] Dr. Maylin Mckoy Urea nitrogen/Creatinine [Mass ratio] 7.8 mg/mg Normal [facility] Comment on above: Performed By: #### M YAMILET Yun BMP #### [facility] [address] [place], [place] [address] Dr. Maylin Mckoy Potassiumon 09-07-2022 Potassium [Moles/Vol] 2.4 mmol/L Off scale low 3.5-5.1 [facility] Comment on above: Result Comment: Resu lts called at 0807 on 09/07/22 PERFORMED BY: [place] [address] PATHOLOGIST ECONOMIC DEVELOPER MARY ANN LAL M.D. Performed By: #### K #### [address] Serum or plasma potassium me asurement (moles/volume)Ordered By: NON STAFF on 09-07-2022 Potassium [Moles/Vol] 2.4 mmol/L 3.5-5.1 [facility] Comment on above: Results calledat 080 7 [...] IO EKG Electrocardiogram- 12 Lead; Status:Complete; Done: [id number] SocHx: Former smoker Tobacco Use Screening; Status:Complete; Done: [id number] Patient Instructions Please bring all medicines, vitamins, [...] for a consultation for. POC Dr. Benson, [facility] Bariatrics- Bariatric sx History of [...] Vital Signs Recorded: 06Jun2022 04:17PMRecorded: 06Jun2022 03:45PM [id number], LUE, Sitting Ukwiimxbk37235, LUE, Sitting Heart Rate71, Apical Height5 ft 7 in Wyfklj052 lb BMI Sztcvdhspw68.77 kg/m2 BSA Calculated2.42 Tobacco Useb) No PHQ-2 [...] to auscul (more content not included)... Normal ZOOM TV Tobacco Screening.on 022 Adult depression screening assessment No -[facility] [employer] 250 DO Work Phone: Tobacco use status CPHS b) No M P-[facility] [employer] 250 DO Work Phone: DHEA SERUMon 01-12-2022 Dehydroepiandrosterone (DHEA) 287 ng/dL Normal 31-701 [facility] Comment on above: Result Comment: Age [...] 89 Performed By: #### D STAR. #### [facility] [address] [place] [address] Dr. Maylin Mckoy TESTOSTERONE, FREE,DIRECT, T OTALon 01-06-2022 Free Testosterone(Direct) 1.6 pg/mL Normal 0.0-4.2 [facility] Comment on above: Result Comment: Perf ormed at: BN Performed By: #### T ESTFRD #### [facility] [address] [place] [address] Dr. Maylin Mckoy Testosterone [Mass/Vol] 17 ng/dL Normal 13-71 [facility] Comment on above: Result Comment: Perf ormed at: CB Performed By: #### T ESTFRD #### [facility] [address] [place] [address] Dr. Maylin Mckoy INSULINon 01-05-2022 Insulin 13.2 uIU/mL Normal 2.6-24.9 [facility] Comment on above: Performed By: #### I NSULIN #### [facility] [address] [place] [address] Dr. Maylin Mckoy GLYCOHEMOGLOBIN A1Con 2021 ADA RECOMMENDATION SEE BELOW Normal [facility] Comment on above: Result Comment: ADA RECOMMENDED LIMIT 4.0 - 6.0 ADA THERAPEUTIC TARGET < 7.0 ACTION SUGGESTED > 7.0 Performed By: #### A 1C #### [facility] [address] [place] [address] Dr. Maylin Mckoy Glucose [Mass/Vol] 146 mg/dL Normal [facility] Comment on above: Performed By: #### A 1C #### [facility] [address] [place] [address] Dr. Maylin Mckoy HbA1c (Bld) [Mass fraction] 6.7 % Critically high 4.5-6.2 [facility] Comment on above: Performed By: #### A 1C #### [facility] [address] [place] [address] Dr. Maylin Mckoy TSHon 01-04-2022 TSH 3.214 uIU/mL Normal 0.358-3.74 0 [facility] Comment on above: Performed By: #### T SH #### [facility] [address] [place] [address] Dr. Maylin Mckoy TSH RANGE SEE BELOW Normal [facility] Comment on above: Result Comment: <0.3 4 UIU/ml HYPERTHYROID 0.34-5.60 UIU/ml EUTHYROID >5.60 UIU/ml HYPOTHYROID Performed By: #### T SH #### [facility] [address] [place] [address] Dr. Maylin Mckoy Potassiumon 10-05-2021 Potassium [Moles/Vol] 3.3 mmol/L Low 3.5-5.5 [facility] [place] [employer] [employer] Comment on above: Performed By: #### K #### [facility] [address] [place], [place] [id number] [place] 09-11-2021 Consent [id number]#1.00CD:127 Normal [facility] Registrationon 09-11-2021 Registration [id number]#[id number]:127 Normal [facility] Basic Metabolic Panelon 08-06 Anion gap [Moles/Vol] 21 mmol/L High 12-20 [facility] D[employer] Colorist Formulator Comment on above: Result Comment: Effe ctive 08/10/2019 reference range changed. Performed By: #### B MP #### [facility] [address] [place], [place] [id number] Calcium [Mass/Vol] 9.3 mg/dL Normal 8.6-10.2 Sydnie crespo [place] [employer] Formulator Comment on above: Performed By: #### B MP #### [facility] [address], [place] [id number] Chloride [Moles/Vol] 106 mmol/L Normal 98-107 [facility] Comment on above: Performed By: #### B MP #### [facility] [address], [place] [id number] CO2 [Moles/Vol] 20 mmol/L Normal 20-31 [facility] Comment on above: Performed By: #### B MP #### [facility] [address], [place] [id number] Creatinine [Mass/Vol] 0.7 mg/dL Normal 0.6-1.4 [facility] Comment on above: Performed By: #### B MP #### [facility] [address], [place] [id number] eGFRAA 115 mL/min/1.73m2 Normal >60 [facility] Comment on above: Performed By: #### B MP #### [facility] [address] [place], [place] [id number] eGFRNAA 95 mL/min/1.73m2 Normal >60 [facility] Comment on above: Performed By: #### B MP #### [facility] [address], [place] [id number] Glucose [Mass/Vol] 184 mg/dL High 65-99 [facility] Specialist Comment on above: Result Comment: For FASTING Glucose --- ADA reference ranges: Normal 65-99 mg/dl Prediabetes 100-125 Diabetes >/= 126 Performed By: #### B MP #### [facility] [address], [place] [id number] Potassium [Moles/Vol] 2.8 mmol/L Critically low 3.5-5.5 [facility] Specialist Comment on above: Result Comment: Crit ical result called to Dr Rhodes/Rylee at 09/01/2021 11:58 AM by Cyndie Montanez) Performed By: #### B MP #### [facility] [address] [place], [place] [id number] Sodium [Moles/Vol] 144 mmol/L Normal 135-146 [facility] Dye Colorist Formulator Comment on above: Performed By: #### B MP #### [facility] [address] [place], [place] [id number] Urea nitrogen [Mass/Vol] 10 mg/dL Normal 7-25 [facility] Dye Colorist Formulator Comment on above: Performed By: #### B MP #### [facility] [address] [place], [place] [id number] [place] 08-17-2021 Consent [id number]#[id number]:127 Normal [facility] Registrationon 08-17-2021 Registration [id number]#1.00CD:127 Normal [facility] Registrationon 04-04-2021 Registration [id number]#1.00CD:127 Normal [facility] [place] 04-03-2021 Consent [id number]#1.00CD:127 Normal [facility] MRI BRAIN W WO CONTRASTon MRI BRAIN W WO CONTRAST [facility] Department of Radiology [address] [place] [id number] Patient Name: HEIDI DE LA VEGA : 1990 Sex: F Age: Race: White Pt. Location: 29 Patient Status: O Ordered Date: 02/04/2020 2:05:00 PM Completed Date: 03/17/2020 10:13 AM Requesting Provider: GANGA RODRIGUES Attending Provider: GANGA RODRIGUES Report Copy To: IMMANUEL KIRBY Signs & Symptoms: C71.9 Malignant neoplasm of brain, unspecified I10 History: Nita WOODARDZACHARIAHKarlene AUTH [id number] VALID 03/04-04/03/2020 12562 KW Comments: , 1p-19q co-deleted oligodendroglioma of [...] reports Electronically signed: Shawn Martins. Transcribed by: [email or web address], User Resident: JONATHAN ARCE Electronically Signed by: SHAWN MARTINS @ 03/17/2020 12:45 PM I personally read this/these film(s) with this resident Normal [facility] Comment on above: Order Comment: , 1p- [...] WO CONTRASTon MRI BRAIN W WO CONTRAST [facility] Department of Radiology [address] [place] [phone] Patient Name: HEIDI DE LA VEGA : 1990 Sex: F Age: Race: White Pt. Location: 29 Patient Status: O Ordered Date: 03/20/2019 11:25:00 AM Completed Date: 09/11/2019 10:54 AM Requesting Provider: ALISA MCKOY Attending Provider: ALISA MCKOY Report Copy To: IMMANUEL KIRBY Signs & Symptoms: C71.9 Malignant neoplasm of brain, unspecified I10 History: Nita gutierreskarlene auth # [id number] 08/28/2019-09/27/2019 cpt code 89894 *mla Comments: , 1p-19q co-deleted oligodendroglioma of [...] reports Electronically signed: Jim Jason. Transcribed by: [email or web address], User Resident: DANDY HUFFMAN Electronically Signed by: JIM JASON @ 09/11/2019 04:35 PM I personally read this/these film(s) with this resident Normal [facility] Comment on above: Order Comment: , 1p- [...] Summaryon 01-29-2018 Coding Summary CODING DATE: 018 [facility] STATUS: Home PAYOR: Medicaid HMO [...] Swanson' Date Saved: 01/29/2018 03:[address] [facility] ED Clinical Summaryon [address] [facility] ? Urgent [id number] [place] [id number] clinical SummaryPERSON INFORMATIONName: HEIDI DE LA VEGA Age: 27 Years Sex: FEMALEDOB: [birth year] MRN: Acct#:Visit Reason: UC - Rash; UC - Rash; RASH/ BILAT LEGS Arrival: 01/23/18 10:43:00 Discharge: 01/23/18 11:18:00LOS: 000 00:35 Check In: 01/23/18 10:43:00 Checkout: 01/23/18 11:18:00Address:[address] [place] [id number]: Immanuel Kirby INFORMATIONProvider Role Assigned UnassignedSpasic Carmelo ASHRAF ED PA 01/23/18 10:48:23Cristal Dunaway ED Nurse 01/23/18 10:53:41VITALS INFORMATIONVital Sign Triage LatestTemperature TympanicTemperature Temporal ArteryPulse Rate 79 bpm 79 bpmO2 Sat 97 % 97 %Respiratory Rate 16 br/min 16 br/minBlood Pressure 162 mmHg/98 mmHg 162 mmHg/98 mmHgMEDICAL INFORMATIONMedications Given:Allergy Information:No Known Medication AllergiesPHYSICIAN DOCUMENTATIONDISCHARGE INFORMATION:Discharge Disposition: HomeDischarge Location:PATIENT EDUCATION INFORMATIONInstructions: Poison [place] Dermatitis, Ygql-yr-EdlfRteygq-Up:With : Address: When:Immanuel Bolivar [address], [address] [place] [address] Business (1)Comments:Begin on the prednisone 2 tablets daily for 5 days take with food to avoid gastric refluxBegin on the Claritin 1 tab daily for the next 2 weeks Follow-up with primary care provider in 3-5 days sooner if worse.DIAGNOSIS:urushiol induced contact dermatitisPatient Understands: Yes - Patient/family/caregiver verbalizes understanding of instructions givenComment: [facility] - Physician Patient: HONORIO DE LA VEGA : 27 years Sex: FEMALE : [birth year]Associated Diagnoses: urushiol induced contact dermatitisAuthor: [place] InformationTime seen: Date & time 01/23/18 11:01:00.History source: Patient.Arrival mode: Private vehicle.History limitation: None.Additional information: Chief Complaint from Nursing Triage Note : Chief Jyscoelka72/21/18 10:45 EDT Chief Complaint 2-3 days possible [...] been selected or recorded..Social history:Social & Psychosocial KpszzmZwmmjfg68/21/2018 Number used per day: 10.Problem list:Active Problems (1)Smoker.Physical Examination Vital RufkuLlimtmaxgdyd46/21/18 10:45 EDT Height 170.18 cm Weight 122.47 [...] was given the following educational materials: Poison [place] Dermatitis, Njbo-kb-Pjlm.Follow up with: Immanuel Kirby Begin on the [...] on: 01/23/2018 11:28 EDT] [place] Normal [facility] ED Patient Summaryon [address] [facility] ? Urgent [address] [place] [address] pATIENT DISCHARGE INSTRUCTIONSPatient InformationName: HEIDI DE LA VEGA Age: 27 YearsDate of : [birth year]MRN: [id number] For Visit: UC - Rash; UC - Rash; RASH/ BILAT LEGSArrival Time: 01/23/18 10:43:00[facility]: [facility] Physician: Immanuel Kirby Physician: Tonja LakerComment:Patient EducationWith: Address: When:Immanuel Kirby [facility] [address] [place] [address] Business (1)Comments:Begin on the prednisone 2 tablets daily for 5 days take with food to avoid gastric refluxBegin on the Claritin 1 tab daily for the next 2 weeks Follow-up with primary care provider in 3-5 days sooner if worse.Poison [place] DermatitisPoison oak dermatitis is redness and soreness [...] instructions at home:General instructions? Take or apply snea-jzd-jjmpqhg and prescription medicines only as told by [...] Released: 08/24/2011 Document Revised: 12/27/2016 Document Reviewed: 12/28/2015Kingsleyevbyron Interactive Patient Education ? 2018 aihuishou.Medication Information:The exam and treatment you received today in the [facility] Emergency Department were for an urgent problem and are not intended as complete care. It is important for you to follow up with a doctor, nurse practitioner, or physician?s botany laboratory assistant for ongoing care. If your symptoms [...] number so we can reach you if necessary.[facility] Emergency Department has provided you with a complete list of medications post discharge. Please inform your bar staff/provider of your visit and for further instruction [...] InformationVisit Diagnosis:Diagnoses This Visit UC - Rash ([id number]) UC - Rash ([id number]) urushiol induced contact dermatitisIf you received any [...] Weight: 122.47 kg Body Mass Index: 42.29 kg/s5Xzlkltkl List:Problem Onset CommentsSmokerMajor Tests and Procedures:The following [...] Disease Control and Prevention April [address] [facility] [place] [address] [facility] ? Urgent [id number] [place] [address] pATIENT DISCHARGE INSTRUCTIONSPatient InformationName: HEIDI DE LA VEGA Age: 27 YearsDate of : [birth year]MRN: [id number] For Visit: UC - Rash; UC - Rash; RASH/ BILAT LEGSArrival Time: 01/23/18 10:43:00Phone: Primary Care Physician: Immanuel Kirby Physician: Tonja LakerComment:Visit Diagnosis:Diagnoses This Visit UC - Rash ([id number]) UC - Rash ([id number]) urushiol induced contact dermatitisIf you received any [...] When:Immanuel Bol[address] [place] [address] Business (1)Comments:Begin on the prednisone 2 tablets daily for 5 days take with food to avoid gastric refluxBegin on the Claritin 1 tab daily for the next 2 weeks Follow-up with primary care provider in 3-5 days sooner if worse.Medication Information:The exam and treatment you received today in the [facility] Care were for an urgent problem and are not intended as complete care. It is important for you to follow up with a doctor, nurse practitioner, or physician?s botany laboratory assistant for ongoing care. If your symptoms [...] number so we can reach you if necessary.[facility] has provided you with a complete list of medications post discharge. Please inform your bar staff/provider of your visit and for further instruction [...] Weight: 122.47 kg Body Mass Index: 42.29 kg/o6Tzkwllvw List:Problem Onset CommentsSmoker Patient EducationPoison North [place] DermatitisPoison oak dermatitis is redness and soreness [...] instructions at home:General instructions? Take or apply kowr-pax-eihzhqh and prescription medicines only as told by [...] Reviewed: 12/28/2015Nirmala Interactive Patient Education ? 2018 aihuishou. Viruses or BacteriaWhat?s got you sick?Antibiotics only [...] for Disease Control and Prevention April 2014 [facility] Vital Signs Date Time Vital Sign Value Performing Clinician Facility 08-19-2023 16:00-0500 Body height 170.18 cm Zara Ramo Other [facility] Other 08-19-2023 16:00-0500 Body mass index (BMI) [Ratio] 31.76 kg/m2 Zara Ramo Other [facility] Other 08-19-2023 16:00-0500 Body temperature 97.5 [degF] Zara Ramo Other [facility] Other 08-19-2023 16:00-0500 Body weight 91.99 kg Zara Ramo Other [facility] Other 08-19-2023 16:00-0500 Diastolic blood pressure 100 mm[Hg] Zara Ramo Other [facility] Other 08-19-2023 16:00-0500 Respiratory rate 18 /min Zara Ramo Other [facility] Other 08-19-2023 16:00-0500 SaO2% (BldA) [Mass fraction] 100 % Zara Ramo Other [facility] Other 08-19-2023 16:00-0500 Systolic blood pressure 170 mm[Hg] Zara Ramo Other [facility] Other 06-06-2022 16:17-0400 Diastolic blood pressure 89 mm[Hg] Immanuel Kirby [facility] [facility] Work Phone: 06-06-2022 16:17-0400 Systolic blood pressure 138 mm[Hg] Immanuel Kirby [facility] DO Work Phone: 06-06-2022 15:45-0400 Body height 170.18 cm Immanuel Kirby [facility] DO Work Phone: 06-06-2022 15:45-0400 Body mass index (BMI) [Ratio] 47.77 kg/m2 Immanuel Kirby [facility] DO Work Phone: 06-06-2022 15:45-0400 Body surface area Derived from formula 2.42 m2 Immanuel Kirby Work [facility]: [facility] DO Work Phone: 06-06-2022 15:45-0400 Body weight 138.35 kg Immanuel Kirby Work Phone: [facility] 250 DO Work Phone: 06-06-2022 15:45-0400 Diastolic blood pressure 102 mm[Hg] Immanuel Mcgrather Work Phone: [facility] 250 DO Work Phone: 06-06-2022 15:45-0400 Heart rate 71 /min Immanuel Tatyana Bam Work Phone: [facility] 250 DO Work Phone: 06-06-2022 15:45-0400 Systolic blood pressure 160 mm[Hg] Immanuel Tatyana Bam Work Phone: [facility] 250 DO Work Phone: Encounters Encounter Date Encounter Type Care Provider Facility Start: 08-30-2023 End: 08-30-2023 ambulatory IMMANUEL KIRBY Facility:[facility] Start: 08-30-2023 End: 08-30-2023 ambulatory Zara Ramo Facility:[facility] Start: 08-30-2023 End: 08-30-2023 ambulatory DO Immanuel Kirby Work Phone: [facility] Work Phone: Start: 08-30-2023 End: 08-30-2023 Patient encounter procedure DO Immanuel Kirby Work Phone: [facility] [place] Work Phone: Start: 08-23-2023 End: 08-23-2023 ambulatory Zara Ramo Other [facility] Other Start: 08-23-2023 Telephone encounter Zara Ramo [facility] Start: 08-22-2023 End: 08-22-2023 ambulatory SHEILA LOUIS Not Available Start: 08-21-2023 End: 08-22-2023 ambulatory MANASA DUNAWAY Not Available Start: 08-20-2023 End: 08-20-2023 ambulatory IMMANUEL KIRBY Facility:[facility] Start: 08-20-2023 End: 08-20-2023 ambulatory Vikki Bailey MD Work Phone: Endocrinology Comment on above: 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) Start: 08-20-2023 End: 08-20-2023 Telemedicine consultation with patient Vikki Bailey MD Work Phone: [facility] Start: 08-19-2023 End: 08-19-2023 ambulatory Zara Ramo Other [facility] Other Start: 08-19-2023 Office outpatient ne w 45 minutes Zara Ramo [facility] Start: 08-19-2023 End: 08-19-2023 Patient encounter procedure DO Immanuel Kirby Work Phone: [facility] Work Phone: Start: 08-15-2023 End: 08-15-2023 ambulatory MANASA DUNAWAY Not Available Start: 08-14-2023 End: 08-14-2023 ambulatory SHEILA LOUIS Not Available Start: 08-07-2023 End: 08-07-2023 ambulatory ТАТЬЯНА RODRIGUEZ Not Available Start: 08-02-2023 End: 08-03-2023 ambulatory JUAN BARON Not Available Start: 07-30-2023 End: 07-31-2023 ambulatory JUAN BARON Not Available Start: 07-24-2023 End: 07-24-2023 ambulatory JHONY GARCIA Not Available Start: 07-22-2023 End: 07-22-2023 ambulatory JUAN LORAINE Not Available Start: 07-18-2023 End: 07-18-2023 ambulatory ALEX NAIK Not Available Start: 07-03-2023 End: 07-04-2023 ambulatory IMMANUEL KIRBY Not Available Start: 06-26-2023 End: 06-26-2023 ambulatory SHEILA Josefa LOUSI Not Available Start: 03-18-[address] Della Kim Facility: Start: 12-13-2022 [facility] Start: 12-07-2022 End: 12-08-[address] IMMNAUEL KIRBY Facility:[facility] Start: 12-07-2022 End: 12-08-2022 Encounter for preprocedural laboratory examination DR IMMANUEL KIRBY Facility:[facility] Start: 11-05-2022 ambulatory RAVINDRA LEMA [facility] Start: 10-23-2022 End: 10-24-2022 ambulatory ZAKIA BENSON Facility:[facility] Start: 10-22-2022 End: 10-23-2022 ambulatory RAVINDRA [facility] Start: 09-13-2022 End: 09-13-2022 ambulatory Manasa Dunaway Facility:[facility] Start: 09-13-2022 Encounter for other preprocedural examination Manasa Dunaway [facility] Start: 09-13-2022 End: 09-13-2022 ambulatory DO Immanuel Kirby Work Phone: [facility] Work Phone: Start: 09-13-2022 End: 09-13-2022 Patient encounter procedure DO Immanuel Kirby Work Phone: [facility] [place] Work Phone: Start: 09-10-2022 End: 09-10-2022 ambulatory RAVINDRA [facility] Start: 09-07-2022 End: 09-08-[address] TE DARNELL . Facility:[facility] Start: 09-07-2022 End: 09-07-[address] TE DARNELL . Facility:[facility] Start: 09-07-2022 End: 09-07-2022 ambulatory Tiarra Prakash Facility:[facility] Start: 09-07-2022 End: 09-07-2022 ambulatory DO Immanuel Kirby Work Phone: [facility] Work Phone: Start: 09-07-2022 End: 09-07-2022 Patient encounter procedure DO Immanuel Kirby Work Phone: [facility] [place] Work Phone: Start: 08-07-2022 Rx Renewal Immanuel Kirby Work Phone: [facility] 250 DO Work Phone: Start: 06-06-2022 Office outpatient visit 25 minutes Immanuel Kirby Work Phone: [facility] 250 DO Work Phone: Start: 06-06-[address] Della Kim Facility:[id number] Start: 01-04-2022 End: 01-05-[address] ESTHER ANGELES Facility:[facility] Start: 01-23-2018 End: 01-25-2018 Ambulatory Carmelo Nicolarandy Facility:[facility] Patient encounter status Immanuel Kirby Work Phone: [facility] 250 DO Work Phone: Plan of Treatment Date Care Activity Detail Author Start: 08-30-2023 Doppler ultrasonogra phy of kidney US renal doppler [facility] Start: 08-30-2023 US Unspecified body region [facility] Start: 08-20-2023 End: 11-19-2023 Aldosterone [Mass/volume] in Serum or Plasma ALDOSTERONE BLD Lab Routine Adenoma of left adrenal gland Expected: 08/20/2023, Expires: 11/19/2023 [facility] Work Phone: Comment on above: Expected: 08/20/2023 , Expires: 11/19/2023 Start: 08-20-2023 End: 11-19-2023 Comprehensive metabolic 2000 panel - Serum or Plasma COMP METABOLIC PANEL Lab Routine Adenoma of left adrenal gland Expected: 08/20/2023, Expires: 11/19/2023 [facility] Work Phone: Comment on above: Expected: 08/20/2023 , Expires: 11/19/2023 Start: 08-20-2023 End: 11-19-2023 Corticotropin [Mass/volume] in Plasma ACTH BLD Lab Routine Adenoma of left adrenal gland Expected: 08/20/2023, Expires: 11/19/2023 [facility] Work Phone: Comment on above: Expected: 08/20/2023 , Expires: 11/19/2023 Start: 08-20-2023 End: 11-19-2023 Cortisol [Mass/volume] in Serum or Plasma CORTISOL BLD Lab Routine Adenoma of left adrenal gland Expected: 08/20/2023, Expires: 11/19/2023 [facility] Work Phone: Comment on above: Expected: 08/20/2023 , Expires: 11/19/2023 Start: 08-20-2023 End: 11-19-2023 DHEA-S BLD DHEA-S BLD Lab Routine Adenoma of left adrenal gland Expected: 08/20/2023, Expires: 11/19/2023 [facility] Work Phone: Comment on above: Expected: 08/20/2023 , Expires: 11/19/2023 Start: 08-20-2023 End: 11-19-2023 DIRECT RENIN PLASMA DIRECT RENIN PLASMA Lab Routine Adenoma of left adrenal gland Expected: 08/20/2023, Expires: 11/19/2023 [facility] Work Phone: Comment on above: Expected: 08/20/2023 , Expires: 11/19/2023 Start: 08-20-2023 End: 11-19-2023 METANEPHRINES, FREE PLASMA METANEPHRINES, FREE PLASMA Lab Routine Adenoma of left adrenal gland Expected: 08/20/2023, Expires: 11/19/2023 [facility] Work Phone: Comment on above: Expected: 08/20/2023 , Expires: 11/19/2023 Start: 08-05-2023 Depression Assessment Depression Ass essment [facility] Start: 04-05-2023 Influenza vaccination Influenz a Vaccine (#1) [facility] Start: 03-14-2023 FUV, Provider: Della Kim, Status: Pen, Time: 1:30 PM FUV, Provider: Della Kim, Status: Pen, Time: 1:30 PM [place] [address] DO Work Phone: Start: 2021 Screening for malign ant neoplasm of cervix HPV Testing [facility] Start: 2012 Screening for malign ant neoplasm of cervix Pap Testing [facility] Start: 2010 Urine microalbumin profile DTa P,Tdap,Td Vaccine (1 - Tdap) [facility] Start: 2009 Hepatitis C screening Hepatitis C Sc keyur [facility] Start: 2009 HIV screening HIV Screening [facility] Start: 02-02-1992 Covid-19 Vaccine (#1) Covid-19 Vacci ne (#1) [facility] Start: 1991 Hepatitis B Vaccine (1 of 3 - 3-dose series) Hepatitis B Vaccine (1 of 3 - 3-dose series) [facility] Payers Date Payer Category Payer Self-pay [id number] 2022 Medicaid [place] [employer] [place] [employer] [id number] 2022-[facility] [phone] [place] [id number] Medicaid [id number] 1991 Unknown [id number] 2.16.840.1.248256.3.579.2.593 1991 Unknown [id number] 2.16.840.1.545956.3.579.2.593 1991 Unknown [id number] 2.16.840.1.734889.3.579.2.593 1991 Unknown [id number] 2.16.840.1.145704.3.579.2.593 1991 Unknown [id number] 2.16.840.1.811282.3.579.2.593 1991 Unknown [id number] 2.16.840.1.757558.3.579.2.356 1991 Unknown [id number] 2.16.840.1.625642.3.579.2.356 1991 Unknown [id number] 2.16.840.1.949502.3.579.2.1259 1991 Unknown [id number] 2.16.840.1.639931.3.579.2.1259 1991 Unknown [id number] 2.16.840.1.145428.3.579.2.1259 1991 Unknown [id number] 2.16.840.1.097440.3.579.2.1259 1991 Unknown [id number] 2.16.840.1.077220.3.579.2.1259 1991 Unknown [id number] 2.16.840.1.003870.3.579.2.9 1991 Unknown [id number] 2.16.840.1.490456.3.579.2.1259 1991 Unknown [id number] 2.16.840.1.796850.3.579.2.9 1991 Unknown [id number] 2.16.840.1.950631.3.579.2.1259 1991 Unknown [id number] 2.16.840.1.561116.3.579.2.9 1991 Unknown [id number] 2.16.840.1.633190.3.579.2.1259 1991 Unknown [id number] 2.16.840.1.161914.3.579.2.1259 1959 Medicaid [id number] Unknown [facility] [employer] Unknown [facility] [id number] Unknown [id number] 2.16.840.1.039142.3.579.2.531 Unknown [id number] 2.16.840.1.574714.3.579.2.531 Unknown [id number] 2.16.840.1.655970.3.579.2.531 Social History Date Type Detail Facility Start: 01-05-2020 End: 08-20-2023 No illicit drug use No illicit drug use -[facility] DO Work Phone: Comment on above: quit 2021; Start: 11-09-2019 Tobacco smoking status NHIS Smoker (finding) [facility] Start: 1991 Sex Assigned At Female [facility] Start: 01-05-2020 End: 08-20-2023 Sex Assigned At [facility] Other Start: 01-05-2020 Tobacco smoking status NHIS Never smoked tobacco [facility] Start: 01-05-2020 Tobacco use and exposure Smokeless tobacco non-user [facility] Start: 01-05-2020 Alcohol intake Current drinke r of alcohol (finding) [facility] National Score (1-100), lower number is lower risk 59 [facility] Start: 1991 Sex Assigned At Not on file [facility] Clinical Notes 09-10-2022 to 08-20-2023 Patient InstructionsVikki Bailey MD - 08/20/2023 1:43 PM EST Note Date & Type Note Facility 08-20-2023 Note HNO ID: [id number] Author: VIKKI BAILEY MD Service: ? Author Type: Physician Type: Progress Notes Filed: 08/25/2023 22:12 Note Text: Endocrinology and Metabolism [place] Initial [facility] Visit Note Virtual Visit (Audio/Visual) [...] visit. Either the patient or their legal retail field representative has been informed of the risks [...] Chief Complaint: History of Present Illness: Ms. Heiid De La Vega is a 33 year [...] and nephrology. She recently met with a weatherstrip machine operator and was recommended to undergo some work-up. [...] mouth once daily. Norethindrone-Eth Estradiol (ALYACEN , ,) 1-35 mg-mcg [...] is around 5- (more content not included)... [facility] 08-20-2023 Instructions Vikki Bailey MD - 08/20/2023 [...] let me know documented in this encounter [facility] 08-20-2023 History of Present illness Narrative Endocrinology and Metabolism [place] Initial [facility] Visit Note Virtual Visit (Audio/Visual) [...] visit. Either the patient or their legal retail field representative has been informed of the risks [...] and nephrology. She recently met with a weatherstrip machine operator and was recommended to undergo some work-up. [...] mouth once daily. Norethindrone-Eth Estradiol (ALYACEN , ,) 1-35 mg-mcg [...] agreed to get the labs done at [facility], I provided her with the lab phone number to make an appointment. Vikki Bailey MD [facility] Endocrinology and Metabolism [place] - [facility] [phone] Medical Decision Making: Problems: Moderate: 1+ chronic illnesses with change Data: Unique source(s) for external note(s) reviewed: 1 Unique test result(s) reviewed: 3+ Unique test(s) ordered: 3+ Medical Decision Making Level: 4 - Moderate documented in this encounter [facility] 08-19-2023 Evaluation note Encounter Date Diagnosis [...] of the adrenal nodule with serial imaging. [facility] Other 04-03-2023 NoteIn person visit Chief complaint: follow up for prior right frontal glioma UGASHIK: 32 y/o woman - she had prior [...] with repeat MRI brain w/wout contrast. [facility] [place] NoteIn person visit Chief complaint: known olidodendroglioma UGASHIK: 32 y/o Left handed - she does not work. 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 She had migraines and high blood pressure [...] after the MRI is completed. Ravindra Lema MDUnKettering Health PrebleChief complaint Narrative - ReportedRACARL DE LA VEGA is being seen for a consultation for. POC Dr. Benson, [facility] Bariatrics- Bariatric sxMP-[facility] [address] DO Work Phone: Evaluation noteNo assessment information available [facility] Work Phone: Evaluation noteNo InformationNort zweitgeist Other Evaluation note* Diagnosis Adenoma of left adrenal gland- Primary Benign neoplasm of adrenal gland documented in this encounter [facility] general Narrative - Reported* Type Description [...] 2 DIALBETES MYRA LITUS WITHOUT COMPLICATION, WITHOUT SUPERVISOR JEWELRY DEPARTMENT CURRENT USE OF INSULIN Medical History MICROSYTIC ANEMIA Medical History BIPOLAR AFFECTIVE DISORDER, CURR ENTLY DEPRESSED, MILD Medical History CANNABIS ABUSE Medical History MALIGNANT NEOPLASM OF BRAIN Surgical History brain tumor removed malignant 0 Surgical History DILATION AND CURETTAGE ESOPHAGO GASTRODUODENOSCOPY Surgical History INGROWN TOENAIL Surgical History ANKLE SCOPE PLANTAR FASCIOTOMY 2016 Surgical History RIGHT FRONTAL LOBEECTOMY 2018 Surgical History ENDOSCOPIC PLANTAR FASCIOTOMY 2 023 Surgical History GASTRIC BYPASS 12/2022 Hospitalization History SEE ABOVE [facility] Other History of Present illness Narrative* Patient [...] medication 9 4. Follow-up in 9 months [facility] [address] DO Work Phone: Summary Purpose Family [...] Complaint e87.6 Chief Complaint e87.6 M72.2 Z01.818 Chief Complaint Renal Hypokalemia e87.6 e87.3 i10 e27.9 Additional Source Comments INFORMATION SOURCE (unrecogn ized section and content) DATE CREATED AUTHOR 01/29/2018 [facility] DATE CREATED AUTHOR AUTHOR'S ORGANIZ ATION 03/21/2020 [facility] DATE CREATED AUTHOR AUTHOR'S ORGANIZ ATION 09/12/2021 [facility] DATE CREATED AUTHOR AUTHOR'S ORGANIZ ATION 10/06/2021 [facility] DATE CREATED AUTHOR AUTHOR'S ORGANIZ ATION 06/07/2022 [employer] DATE CREATED AUTHOR AUTHOR'S ORGANIZ ATION 11/19/2022 [facility] DATE CREATED AUTHOR AUTHOR'S ORGANIZ ATION 12/14/2022 [facility] DATE CREATED AUTHOR AUTHOR'S ORGANIZ ATION 03/19/2023 [facility] DATE CREATED AUTHOR AUTHOR'S ORGANIZ ATION 08/25/2023 [facility] EPIC DATE CREATED AUTHOR AUTHOR'S ORGANIZ ATION 08/31/2023 [facility] DATE CREATED AUTHOR AUTHOR'S ORGANIZ ATION 08/31/2023 [facility] Care Teams (unrecognized sec tion and content) Team Status: Inactive Member Role Status Dates Immanuel Kirby DO Primary Care Provider Active NETTIE Kramer Attending Provider Active Team Status: Active Member Role Status Dates Immanuel Kirby DO Primary Care Provider Active Team Status: Inactive Member Role Status Dates Immanuel Kirby DO Primary Care Provider Active Manasa Rhodes DPM Attending Provider Active Pathology Specialist Relationship Specialty Start Date End Date Immanuel Kirby DO [address] [place] [id number] PCP - General Family Medicine 10/23/12 Esther Angeles MD [address] [place] [address] Referring Obstetrics 01/28/20 Татьяна Rodriguez PA-C [address] [place] [address] Referring Physician Flight Deck Officer 08/08/23 Team Status: Inactive Member Role Status Dates Zara Ralph MD Attending Provider Active Start : August 19, 2023 End: August 19, 2023 Team Status: Inactive Member Role Status Dates Immanuel Kirby DO Primary Care Provider Active St art: August 30, 2023 End: August 30, 2023 Zara Ralph MD Attending Provider Active Start : August 30, 2023 End: August 30, 2023 Goals (unrecognized section and content) Goals may be documented in a n alternate sectionGoals may be documented in an alternate sectionNo InformationNo InformationGoals may be documented in an alternate section REASON FOR VISIT (unrecogniz ed section and content) Reason Comments New Patient Adrenal Source Comments (unrecognize d section and content) In the event this informatio n is protected by the Federal Confidentiality of Alcohol and Drug Abuse Patient Records regulations: The Federal rules restrict any use of the information to criminally investigate or prosecute any alcohol or drug abuse patient.[facility] FOR RECORDS PERTAINING TO PATIENTS WHO [...] BE BASED ON THE PRIMARY CLINICAL RECORDS. [facility]. provides no warranty or guarantee of the accuracy or completeness of information in this document.
[2023-09-02 13:27] LABS: Potassium 2.3 mmol/L (3.5-5.1)
== END 2023-09-02 12:29 | disposition home or self-care (01) ==
LOC: LAB 12:28
PROVIDERS: PCP Family Medicine
DX: Z98.84 Bariatric surgery status (principal); K90.9 Intestinal malabsorption, unspecified; D50.9 Iron deficiency anemia, unspecified; I10 Essential (primary) hypertension; E87.6 Hypokalemia; K21.9 Gastro-esophageal reflux disease without esophagitis
CPT/HCPCS: 36415; 84132

== ENCOUNTER 2023-09-12 08:33 | Outpatient (OUT) | payer OTHER, SELFPAY ==
--- OUTSIDE RECORDS SUMMARY | 2023-09-12 08:38 | XMS_ITS | CCD ---
Author Name Unknown Address [address] [place] [address] Organization [facility] Care Team Providers [facility] Name Role Phone Spasic, Carmelo Unavailable Unavailable Zo Carmelo Unavailable Unavailable IMMANUEL KUHN Unavailable Unavailable Immanuel Kuhn Unavailable Unavailable Unavailable DO Immanuel Kuhn Primary Care Provider NETTIE Prakash Attending Provider REJI Rhodes Attending Provider [phone] RAVINDRA LEMA Referring Unavailable RAVINDRA LEMA Attending Unavailable RAVINDRA LEMA Attending Unavailable PAY ., DR TIWARI Attending Unavailable PAY ., DR TIWARI Consulting Unavailable PAY ., DR TIWARI Admitting Unavailable ABM, DR MILLER Primary Care Unavailable PAY ., DR TIWARI Attending Unavailable PAY ., DR TIWARI Consulting Unavailable BAM, DR MILLER Primary Care Unavailable PAY ., DR TIWARI Admitting Unavailable ZAKIA BENSON Admitting Unavailable ZAKIA BENSON Attending Unavailable ZAKIA BENSON Consulting Unavailable BAM, DR MILLER Primary Care Unavailable BAM, DR MILLER Primary Care Unavailable MARLENY, DR INIGUEZ Admitting Unavailable MARLENY, DR INIGUEZ Attending Unavailable ALBERTOC, DR INIGUEZ Consulting Unavailable BRIDGETTE, DR MURO Admitting Unavailable BRIDGETTE, DR MURO Attending Unavailable BRIDGETTE, DR MURO Consulting Unavailable BAM, DR MILLER Primary Care Unavailable Judy, Dr. Hull Attending Unavaila Dr. Immanuel Pillai Primary Care Unavaila darryn Kim, Dr. Hull Attending Unavaila darryn Kim, Dr. Hull Referring Unavaila Dr. Immanuel Pillai Primary Care Unavaila ble Ramo, Zara Unavailable Immanuel Kuhn DO Primary Care Provider Esther Angeles MD Unavailable [phone] Татьяна Carter PA-C Unavailable DO Immanuel Kuhn Primary Care Provider [phone] MD Zara Ralph Attending Provider [phone] Manasa Dunaway Attending Unavailable Gume, Manasa Admitting Unavailable Immanuel Kuhn Primary Care Unavailable Tiarra Prakash Attending Unavailable Tiarra Prakash Admitting Unavailable Immanuel Kuhn Primary Care Unavailable Immanuel Kuhn Primary Care Unavailable Zara Ralph Attending Unavailable Zara Ralph Admitting Unavailable Immanuel Kuhn DO Primary Care Provider Татьяна Angeles Unavailable JUAN BARON Attending Unavailable GUME, MANASA H Referring Unavailable ТАТЬЯНА CARTER Attending Unavailable IMMANUEL KUHN Referring Unavailable SHEILA BRAUN Attending Unavailable GUME, MANASA H Attending Unavailable GUME, MANASA H Referring Unavailable SHEILA BRAUN Attending Unavailable SHEILA BRAUN Attending Unavailable IMMANUEL KUHN Referring Unavailable ALEX NAIK Attending Unavailable GUME, MANASA H Referring Unavailable JUAN BARON Attending Unavailable GUME, MANASA H Referring Unavailable JHONY GARCIA Attending Unavailable GUME, MANASA H Referring Unavailable JUAN BARON Attending Unavailable GUME, MANASA H Referring Unavailable GUME, MANASA H Attending Unavailable IMMANUEL KUHN Primary Care Unavailable VEERABOGDAN, VIKKI Attending Unavailab IMMANUEL Garcia Primary Care Unavailable IMMANUEL KUHN Primary Care Unavailable IMMANUEL KUHN Primary Care Unavailable VEERAMACHANENI, RAVALI Referring Unavailab IMMANUEL Garcia Primary Care Unavailable VEERAMACHANENI, RAVALI Referring Unavailab le Allergies Allergy Classification Reported Allergen(s) Allergy Type Date of Onset Reaction(s) Facility (1 source) No Known Medication Allergies; Translations: [No Known Medication Allergies] Propensity to adverse reactions to drug (disorder) [facility] Repository Medications Current Medications Medication Drug Class(es) Dates Sig (Normalized) Sig (Original) amLODIPine 10 mg oral tablet (6 sources) Dihydropyridine Calcium Channel Clover Start: 09-29-2019 End: 08-20-2023 take 1 tablet by mouth once daily amLODIPine (Norvasc) 10 MG tablet Indications: Primary hypertension (CMS/HCC) TAKE 1 TABLET BY MOUTH EVERY DAY FOR 90 DAYS 90 tablet 2 08/15/2023 Active Comment on above: Take 10 mg by mouth once daily. benzoyl peroxide 50 mg/ml topical solution (3 sources) Start: 05-23-2023 Benzoyl Peroxide Wash 5 % external wash Indications: Hidradenitis suppurativa of right axilla WASH AFFECTED AREAS EVERY DAY *ALTERNATE WITH HIBICLENS* 148 g 1 05/23/2023 Active Benzoyl Peroxide Wash 5 % 1 application Externally Once a day Active biotin 1 mg oral capsule (1 source) take 1 capsule by mouth in the morning biotin 1 MG capsule Take 1 capsule by mouth in the morning. 0 Active brexpiprazole 1 mg oral tablet (6 sources) Atypical Antipsychotic Start: 06-18-20 End: 08-18-19 take 1 tablet by mouth once daily Brexpiprazole (Rexulti) 1 MG tablet Indications: Bipolar affective disorder, currently depressed, mild (CMS/HCC) Take 1 mg by mouth 1 (one) time each day at the same time 90 tablet 3 08/19/2023 08/18/2024 Active Comment on above: TAKE 1 TABLET BY ROSITA TH ONCE DAILY AT THE SAME TIME busPIRone hydrochloride 10 mg oral tablet (6 sources) Start: 03-17-20 take 1 tablet by mouth at bedtime busPIRone (Buspar) 10 MG tablet Indications: LUISITO (generalized anxiety disorder) (CMS/HCC) TAKE 1 TABLET (10 MG) BY MOUTH IN THE MORNING AND BEFORE BEDTIME 60 tablet 11 03/17/2023 Active Comment on above: TAKE 1 TABLET (10 MG ) BY MOUTH IN THE MORNING AND BEFORE BEDTIME Calcium Carbonate+Vitamin D (2 sources) Calcium Carbonate+Vitamin D Active calcium carbonate-vitamin D 600-400 MG-UNIT tablet (1 source) take 1 tablet by mouth once daily calcium carbonate-vitamin D 600-400 MG-UNIT tablet Take 1 tablet by mouth 1 (one) time each day at the same time 0 Active carvedilol 25 mg oral tablet (8 sources) alpha-Adrenergic Clover, beta-Adrenergic Clover Start: 08-18-19 take 1 tablet by mouth twice daily carvedilol (Coreg) 25 MG tablet Indications: Primary hypertension (CMS/HCC) TAKE 1 TABLET BY MOUTH TWICE A DAY 180 tablet 3 08/15/2023 Active Comment on above: Take 1 tablet by rosita th two times a day. chlorhexidine gluconate 40 mg/ml medicated liquid soap (1 source) Start: 05-23-20 Hibiclens 4 % external liquid Indications: Hidradenitis suppurativa of right axilla Apply topically Daily as needed for wound care. 236 mL 1 05/23/2023 Active ethinyl estradiol 0.035 mg / norethindrone 0.75 mg oral tablet (2 sources) Estrogen take 1 tablet by mouth in the morning norethindrone-ethiny l estradiol (Necon ) 0.5/0.75/1-35 MG-MCG tablet Take 1 tablet by mouth in the morning. 0 Active End: 08-20-2023 take 1 tablet by mouth once daily, then take [id number] tablet by mouth once Norethindrone-Eth Estradiol (ALYACEN , 28,) 1-35 mg-mcg per tablet Take 1 tablet by mouth once daily. 0 08/20/2023 Discontinued Comment on above: Take 1 tablet by rosita th once daily. gabapentin 400 mg oral capsule (8 sources) Anti-epileptic Agent Start: 05-20-20 gabapentin (Neurontin) 400 MG capsule 1 capsule 0 06/15/2022 Active Comment on above: 1 capsule. hydrALAZINE hydrochloride 100 mg oral tablet (8 sources) Arteriolar Vasodilator Start: 07-04-20 take 1 tablet by mouth twice daily at mealtime hydrALAZINE (Apresoline) 100 MG tablet Indications: Anxiety TAKE 1 TABLET BY MOUTH TWICE DAILY WITH FOOD 180 tablet 2 06/10/2023 Active Start: 04-23-2022 take 1 tablet by rosita th twice daily at mealtime hydrALAZINE HCl - 25 MG Oral Tablet TAKE 1 TABLET BY MOUTH TWICE A DAY WITH FOOD Quantity: 180 Refills: 0 Ordered: 24-Apr-2022 DO Start : 23-Apr-2022 Active Comment on above: Take 1 tablet by rosita th two times a day. ketoconazole 20 mg/ml topical cream (1 source) Azole Antifungal Start: ketoconazole (NIZOral) 2 % cream Apply 1 application topically in the morning. 0 07/13/2022 Active lamoTRIgine 150 mg oral tablet (8 sources) Mood Stabilizer, Anti-epileptic Agent Start: End: take 1 tablet by mouth in the morning lamoTRIgine (LaMICtal) 150 MG tablet Indications: Bipolar disorder in partial remission, most recent episode unspecified type (CMS/HCC) TAKE 1 TABLET (150 MG) BY MOUTH IN THE MORNING AND 1 TABLET (150 MG) BEFORE BEDTIME. 180 tablet 0 08/09/2023 11/07/2023 Active Comment on above: Take 150 mg by mouth . loperamide hydrochloride 2 mg oral tablet (3 sources) Opioid Agonist Start: Loperamide (Imodium A-D) 2 mg tablet Active 2 MG PO Q4H May 02, 2017 11:00pm after each loose stool until symptoms controlled; do not exceed 16 mg total dose in 24 hrs lurasidone hydrochloride 60 mg oral tablet (6 sources) Atypical Antipsychotic Start: End: take 1 tablet by mouth at mealtime lurasidone (Latuda) 60 MG tablet Indications: Bipolar disorder in partial remission, most recent episode unspecified type (CMS/HCC) TAKE 1 TABLET (60 MG) BY MOUTH IN THE MORNING. TAKE WITH MEALS. 90 tablet 0 08/29/2023 11/27/2023 Active Comment on above: Take 60 mg by mouth. magnesium oxide 400 mg oral capsule (3 sources) Start: take 1 capsule by mouth in the morning Magnesium Oxide -Mg Supplement (Magnesium Extra Strength) 400 MG capsule Indications: Hypomagnesemia Take 1 capsule by mouth in the morning. 30 capsule 5 07/12/2023 Active take 1 tablet by rosita th every twenty-four hours Magnesium Oxide 400 MG 1 TABLET Orally Once a day Active Multiple Vitamin (Multi Vitamin) tablet (1 source) Multiple Vitamin (Multi Vitamin) tablet 1 (one) time each day at the same time. 0 Active Multivitamin preparation (2 sources) take 1 tablet by mouth once daily Multi Vitamin - 1 tablet Orally Once a day Active ondansetron 4 mg oral tablet (1 source) Serotonin-3 Receptor Antagonist Start: 08-19-19 take 1 tablet by mouth every eight hours as needed for nausea and vomiting and nausea and nausea ondansetron (Zofran) 4 MG tablet Indications: Nausea Take 1 tablet (4 mg) by mouth every 8 (eight) hours if needed for nausea or vomiting 60 tablet 1 08/19/2023 Active microencapsulated potassium chloride 20 meq extended release oral tablet (8 sources) Start: 04-27-20 take 1 tablet by mouth in the morning potassium chloride CR (Klor-Con M20) 20 MEQ ER tablet Indications: Hypokalemia Take 1 tablet (20 mEq) by mouth in the morning and 1 tablet (20 mEq) before bedtime. Do not crush or chew.. 60 tablet 2 06/20/2023 Active Start: 04-27-2022 take 1 tablet by rosita th once daily Klor-Con M20 20 MEQ Oral Tablet Extended Release TAKE 1 TABLET BY MOUTH EVERY DAY Quantity: 90 Refills: 0 Ordered: 27-Apr-2022 DO Start : 27-Apr-2022 Active take 1 tablet by rosita th every twenty-four hours Potassium Chloride ER 20 MEQ 1 tablet with food Orally Once a day Active Comment on above: Take 20 mEq by mouth . promethazine hydrochloride 25 mg oral tablet (3 sources) Phenothiazine Start: 05-03-20 17 take 25 mg by mouth every six hours Promethazine Active 25 MG PO Q6H May 02, 2017 11:00pm spironolactone 50 mg oral tablet (1 source) Aldosterone Antagonist Start: 05-23-20 take 1 tablet by mouth once daily spironolactone (Aldactone) 50 MG tablet Indications: Hypokalemia TAKE 1 TABLET BY MOUTH EVERY DAY FOR 90 DAYS 90 tablet 1 05/23/2023 Active zolpidem tartrate 10 mg oral tablet (6 sources) gamma-Aminobutyric Acid-ergic Agonist Start: 08-19-19 End: 09-18-19 zolpidem (Ambien) 10 MG tablet Indications: Primary insomnia Take 1 tablet (10 mg) by mouth as needed at bedtime for sleep 30 tablet 0 08/19/2023 09/18/2023 Active Completed/Discontinued Medications Medication Drug Class(es) Dates Sig (Normalized) Sig (Original) dexamethasone 1 mg oral tablet (1 source) Corticosteroid Start: 08-20-2023 dexAMETHasone (DECADRON) 1 mg tablet Take 1 tablet at 11 pm and draw blood the next day 1 tablet 0 08/20/2023 Active Comment on above: Take 1 tablet at 11 pm and draw blood the next day ferrous sulfate 134 mg oral tablet (3 sources) Ferrous Sulfate 27 mg iron tab Take by mouth twice daily. 0 Active Comment on above: Take by mouth twice daily. minocycline 100 mg oral capsule (1 source) Tetracycline-class Drug Start: 11-26-2012 End: 08-20-2023 take 1 capsule by mouth twice daily minocycline 100 mg capsule Take 1 capsule by mouth twice daily. 60 capsule 4 11/26/2012 08/20/2023 Discontinued Comment on above: Take 1 capsule by [facility] twice daily. Natazia 3/2-2/2-3/1 MG Oral Tablet (2 sources) Start: 09-27-2021 take 1 tablet by mouth once daily Natazia 3/2-2/2-3/1 MG Oral Tablet TAKE 1 TABLET BY MOUTH EVERY DAY CONTINUOUSLY Quantity: 28 Refills: 0 Ordered: 29-May-2022 DO Start : 27-Sep-2021 Active propranolol hydrochloride 40 mg oral tablet (1 source) beta-Adrenergic Clover End: 08-20-2023 take 40 mg by mouth twice daily propranolol HCl (PROPRANOLOL ORAL) Take 40 mg by mouth twice daily. 0 08/20/2023 Discontinued Comment on above: Take 40 mg by mouth twice daily. sertraline 50 mg oral tablet (2 sources) Serotonin Reuptake Inhibitor End: 08-20-2023 take 1 tablet by mouth [...] once daily. SUMAtriptan 100 mg oral tablet (6 sources) Serotonin-1b and Serotonin-1d Receptor Agonist Start: SUMAtriptan (IMITREX) 100 mg tablet TAKE 1 [...] mg by mouth d aily at bedtime. Problems Active Problems Problem Classification Problem Date Documented Da te Episodic/Chronic Administrative/social admission (4 sources) Encounter for blood-alcohol and blood-drug test; Translations: [ENC BLOOD-ALCOHOL BLOOD-DRUG TEST] Onset: 3 Episodic Anxiety disorders (2 sources) Generalized anxiety disorder; Translations: [Generalized anxiety disorder] Onset: 7 12-06-2022 Chronic Conduction disorders (1 source) First degree atrioventricular block; Translations: [Atrioventricular block, first degree] Onset: 3 02-21-2023 Chronic Diabetes mellitus without complication (2 sources) Diabetes mellitus; Translations: [Type 2 diabetes mellitus without complications] Onset: 3 02-21-2023 Chronic Esophageal disorders (1 source) Gastroesophageal reflux disease; Translations: [Gastro-esophageal reflux disease without esophagitis] Onset: 9 02-21-2023 Chronic Essential hypertension (10 sources) Benign essential hypertension; Translations: [Benign essential hypertension] Onset: 8 Resolved: 3 05-03-2017 Chronic Headache; including migraine (2 sources) Migraine with aura; Translations: [Migraine with aura, not intractable, without status migrainosus] Onset: 3 Resolved: 3 02-21-2023 Chronic Joint disorders and dislocations; trauma-related (1 source) Patellofemoral syndrome of left knee; Translations: [Patellofemoral disorders, left knee] Onset: 8 02-21-2023 Chronic Menstrual disorders (8 sources) Dysmenorrhea, unspecified; Translations: [Dysmenorrhea] Onset: 7 Resolved: 3 02-21-2023 Chronic Miscellaneous mental health disorders (2 sources) Insomnia disorder related to another mental disorder; Translations: [Insomnia due to other mental disorder] Onset: 8 02-21-2023 Chronic Mood disorders (4 sources) Bipolar affective disorder, currently depressed, mild; Translations: [Bipolar disorder, current episode depressed, mild] Onset: 8 12-06-2022 Chronic Nausea and vomiting (3 sources) Nausea; Translations: [Nausea] 05-03-2017 Episodic Osteoarthritis (1 source) Osteoarthritis of left knee joint; Translations: [Unilateral primary osteoarthritis, left knee] Onset: 3 02-21-2023 Chronic Other and unspecified benign neoplasm (4 sources) Adenoma of left adrenal gland; Translations: [Benign neoplasm of left adrenal gland] Onset: 4 08-20-2023 Episodic Other and unspecified benign neoplasm (1 source) Benign neoplasm of left adrenal gland; Translations: [Adenoma of left adrenal gland] Onset: 4 Episodic Other endocrine disorders (3 sources) Polycystic ovary syndrome; Translations: [Polycystic ovaries] Onset: 3 02-21-2023 Chronic Other endocrine disorders (4 sources) Polycystic ovarian syndrome; Translations: [POLYCYSTIC OVARIAN SYNDROME] Onset: 2 Chronic Other endocrine disorders (3 sources) Disorder of adrenal gland, unspecified; 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)] Chronic Other endocrine disorders (2 sources) Primary aldosteronism; 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] Onset: 4 09-04-2023 Chronic Other endocrine disorders (1 source) Adrenal mass; Translations: [Other specified disorders of adrenal gland] Onset: 9 02-21-2023 Chronic Other gastrointestinal disorders (3 sources) Irritable bowel syndrome with diarrhea; Translations: [Irritable bowel syndrome with diarrhea] Onset: 9 02-21-2023 Chronic Other gastrointestinal disorders (3 sources) Diarrhea; Translations: [Diarrhea, unspecified] 05-03-2017 Episodic Other nervous system disorders (1 source) Neuropathy; Translations: [Polyneuropathy, unspecified] Onset: 3 02-21-2023 Chronic Other nutritional; endocrine; and metabolic disorders (2 sources) Body mass index 40+ - severely obese; Translations: [Morbid obesity] Chronic Other nutritional; endocrine; and metabolic disorders (1 source) Obesity, unspecified; Translations: [OBESITY UNSPECIFIED] Onset: 3 Chronic Other nutritional; endocrine; and metabolic disorders (1 source) Body mass index (BMI) 45.0-49.9, adult; Translations: [BODY MASS INDEX BMI 45.0-49.9 ADULT] Onset: 3 Chronic Other nutritional; endocrine; and metabolic disorders (1 source) Morbid obesity; Translations: [Morbid (severe) obesity due to excess calories] Onset: 8 02-21-2023 Chronic Other upper respiratory disease (1 source) Seasonal allergic rhinitis; Translations: [Other seasonal allergic rhinitis] Onset: 1 02-21-2023 Chronic Other upper respiratory infections (1 source) Sinusitis; Translations: [Chronic sinusitis, unspecified] Onset: 8 02-21-2023 Chronic Residual codes; unclassified (1 source) Tobacco use; Translations: [TOBACCO USE] Onset: 3 Episodic Screening and history of mental health and substance abuse codes (2 sources) Ex-smoker; Translations: [Personal history of tobacco use] Episodic Comment on above: quit 2021; Substance-related disorders (1 source) Cannabis abuse; Translations: [Cannabis abuse, uncomplicated] Onset: 9 02-21-2023 Chronic Unclassified (2 sources) Consult; Translations: [Consult] Onset: 3 Unclassified (1 source) CONTACT W/AND (SUSP) EXPOS COVID-19; Translations: [CONTACT W/AND (SUSP) EXPOS COVID-19] Onset: 3 Past or Other Problems Problem Classification Problem Date Documented Date Episodic/Chronic Cancer of brain and nervous system (5 sources) Malignant neoplasm of brain, unspecified; Translations: [Glioma] Onset: 06-17-2018 Resolved: 02-21-2023 Chronic Deficiency and other anemia (1 source) Microcytic anemia; Translations: [Iron deficiency anemia, unspecified] Onset: 11-05-2019 02-21-2023 Episodic Fluid and electrolyte disorders (7 sources) Hypokalemia; Translations: [Alkalosis] Onset: 09-07-2022 Episodic Headache; including migraine (1 source) Generalized headache; Translations: [Generalized headache] Onset: 07-15-2018 02-21-2023 Episodic Nutritional deficiencies (4 sources) Iron deficiency; Translations: [Iron deficiency] Onset: 02-02-2020 02-02-2020 Episodic Other aftercare (1 source) Other sales department manager (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) drug therapy; Translations: [OTH PRIVATE DUTY NURSE CURRENT DRUG THERAPY] Onset: 09-10-2022 Episodic Other connective tissue disease (1 source) Plantar fascial fibromatosis; Translations: [Plantar fascial fibromatosis] Onset: 09-13-2022 Episodic Other connective tissue disease (1 source) Plantar fasciitis; Translations: [Plantar fascial fibromatosis] Onset: 02-11-2017 02-21-2023 Episodic Other ear and sense organ disorders (1 source) Otalgia, right ear; Translations: [Otalgia, unspecified] Onset: 11-04-2018 Resolved: 02-21-2023 02-21-2023 Episodic Other nutritional; endocrine; and metabolic disorders (1 source) Excessive eating - polyphagia; Translations: [Polyphagia] Onset: 11-08-2020 Resolved: 02-21-2023 02-21-2023 Episodic Other screening for suspected conditions (not mental disorders or infectious disease) (1 source) Electrocardiogram abnormal; Translations: [Abnormal electrocardiogram [ECG] [EKG]] Onset: 07-31-2022 Resolved: 02-21-2023 02-21-2023 Episodic Other skin disorders (4 sources) Axillary hidradenitis suppurativa; Translations: [Hidradenitis suppurativa] Onset: 10-27-2012 10-27-2012 Episodic Other skin disorders (4 sources) Comedone; Translations: [Acne vulgaris] Onset: 10-27-2012 Resolved: 02-21-2023 10-27-2012 Episodic Other skin disorders (1 source) Alopecia totalis; Translations: [Alopecia (capitis) totalis] Onset: 06-18-2017 Resolved: 02-21-2023 02-21-2023 Episodic Other skin disorders (1 source) Ingrowing nail; Translations: [Ingrowing nail] Onset: 08-22-2021 Resolved: 02-21-2023 02-21-2023 Episodic Residual codes; unclassified (1 source) Insomnia; Translations: [Insomnia, unspecified] Onset: 12-11-2019 Resolved: 02-21-2023 02-21-2023 Episodic Thyroid disorders (1 source) Goiter; Translations: [Iodine-deficiency related diffuse (endemic) goiter] Onset: 01-14-2019 Resolved: 02-21-2023 02-21-2023 Chronic Results Test Name Value Interpretation Reference Range Facility CREATININE BLDon 09-10-2023 Creatinine [Mass/Vol] 0.90 mg/dL Normal 0.58-0.[address] [facility] Comment on above: Order Comment: Peter myles Type: BLOOD SPECIMEN Ordering Facility: [facility] Address: [address] [place] [address] Performed By: #### C RET1 #### [facility] CLIA [id number] [address] [place] [address] Creatinine and Glomerular filtration rate.predicted panel (S/P/Bld) 87 mL/min/1.73m??? Normal >=60 [facility] Comment on above: Order Comment: Peter myles Type: BLOOD SPECIMEN Ordering Facility: [facility] Address: [address] [place] [address] Result Comment: Rachel mated Glomerular Filtration Rate [...] accurately reflect actual GFR. Performed By: #### C RET1 #### [facility] CLIA [id number] [address] [place], [place] [id number] [facility] CORTIS P DEX SERPL[facility] n 09-06-2023 [facility] CORTIS P DEX SERPL-[facility]NC 0.9 ug/dL NINF - 1.8 ug/dL [facility] Comment on above: After overnight 1 mg dexamethasone, an successfactors consultant cortisol of <1.8 ug/dL may indicate an adequate cortisol suppression. This result should be interpreted within the clinical context and other test results. Samra et al. Evidence for the Low Dose Dexamethasone Suppression Test to Screen for Houston's Syndrome - Recommendations for a Protocol for Biochemistry Laboratories. 1996 Sybil. Clin. Biochem. 34 [phone]. Specimen Type: BLOOD SPECIMEN Ordering Facility: [facility] Address: [address], [place] [address] Original Ordering Provider: VIKKI BALDERRAMA [facility] [place] 09-06-2023 [facility] Telephone (ENSUMN) -- HEIDI JOY ([id number]) 1990 F Date Time Provider Department 09/06/23 MARIO SANTIAGO During your visit today, we recorded the following information about you: Pedro Whartonoinette 09/06/2023 8:57 AM Signed 09/06/2023 INTAKE PENDING.NEED 24HR URINE-LFT MSG ON VMX AND SENT MYCHART MSG. ENDOCRINE SURGERY PATIENT WORKSHEET Initial Call Date: September 06, 2023 Reason for Consult/ Referral: Adrenal Mass PATIENT DEMOGRAPHICS Name: Heidi Joy [facility]#: [id number] : 1990 AGE: [age] year old Contact Numbers: Home: (home) Work: There is no work phone number on file. PATIENT PHYSICIAN INFORMATION Referring Doctor: Address: Phone: Kettle Worker: Address: Phone: PCP: Immanuel Kuhn [address] [facility] [address] [place] [address] PAST TREATMENT Office notes: SEE EPIC Medications: NONE THAT APPLY Pre-Visit Testing Component Latest Ref Rng AND Units 08/30/2023 Protein, Total 6.3 - 8.0 g/dL 6.7 Albumin 3.9 - 4.9 g/dL 4.2 Calcium 8.5 - 10.2 mg/dL 9.4 Bilirubin, Total 0.2 - 1.3 mg/dL 1.2 Alkaline Phosphatase 34 - 123 U/L 127 (H) AST 13 - 35 U/L 14 ALT 7 - 38 U/L 16 Glucose 74 - 99 mg/dL 91 BUN 7 - 21 mg/dL 12 Creatinine 0.58 - 0.96 mg/dL 0.66 Sodium 136 - 144 mmol/L 146 (H) Potassium 3.7 - 5.1 mmol/L 2.8 (L) Chloride 97 - 105 mmol/L 109 (H) CO2 22 - 30 mmol/L 27 Anion Gap 9 - 18 mmol/L 10 eGFR >=60 mL/min/1.73mA? 120 Metanephrine, Plasma 12 - 67 pg/mL 28 Normetanephrine, Free Plasma 18 - 101 pg/mL 84 Direct Renin 4.2 - 52.2 pg/mL <2.1 (L) Patient Upright or Supine Upright ACTH 7.2 - 63.3 pg/mL 22.2 Aldosterone 0.0 - <35.4 ng/dL 79.8 (H) Cortisol 4.8 - 19.5 ug/dL 9.5 DHEA-S 98.8 - 340.0 ug/dL 188.1 Imaging Reports: SEE [facility] CD of Images: SEE [facility] FNA: no FNA Slides: N/A Has the patient ever had thyroid or parathyroid surgery before: No Operative Reports: NONE AVAILABLE Pathology Reports: NONE AVAILABLE Valarie Wharton 09/06/2023 8:59 AM Signed Addended by: VALARIE WHARTON on: 09/06/2023 08:59 AM Modules accepted: Orders Allergies As of Date: 09/06/2023 (No Known Allergies) Date Reviewed: 02/02/2020 Reviewed by: Gol Mcmillan MA - Fully Assessed Reason for Visit: Consult [173] Cmt: FACE SHEET Primary Visit Diagnosis: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] Order(s):CATECHOLAMINES FRACTIONATED, URINE FREE [SQURCAT2] Order #: [id number]. #:[id number] ALDOSTERONE 24 HR, URINE [SQUALDO] Order #: [id number]. #:[id number] CREAT CLEAR 24 HOUR [SQUCCLR] Order #: [id number] URINE FREE CORTISOL BY LC-MS/MS [SQUFRCRT] Order #: [id number]. #:[id number] METANEPHRINES 24H UR [SQUMETAN] Order #: [id number]. #:[id number] CREATININE BLD [SQCRET] Reflex Order#: [id number] (Ord#:[id number]) CREATININE CLEARANCE, UR 24HR [GUD6732] Reflex Order#: [id number] (Ord#:[id number]) Prescriptions as of 09/06/2023 - busPIRone (BUSPAR) 10 mg tablet TAKE 1 TABLET (10 MG) BY MOUTH IN THE MORNING AND BEFORE BEDTIME - hydrALAZINE (APRESOLINE) 100 mg tablet Take 1 tablet by mouth two times a day. - carvedilol (COREG) 25 mg tablet Take 1 tablet by mouth two times a day. - gabapentin (NEURONTIN) 400 mg capsule 1 capsule. - lamoTRIgine (LAMICTAL) 150 mg tablet Take 150 mg by mouth. - lurasidone (LATUDA) 60 mg tab tablet Take 60 mg by mouth. - REXULTI 1 mg tablet TAKE 1 TABLET BY MOUTH ONCE DAILY AT THE SAME TIME - potassium chloride ER (KLOR-CON) 20 mEq tablet Take 20 mEq by mouth. - SUMAtriptan (IMITREX) 100 mg tablet TAKE 1 TAB AT MIGRAINE ONSET, MAY REPEAT IN 2 HOURS NEEDED, MAX 2 TABS IN 24 HOURS - zolpidem (AMBIEN) 10 mg - Ferrous Sulfate 27 mg iron tab Take by mouth twice daily. Problem List As Of Date 09/06/2023 Noted Resolved Hidradenitis suppurativa of right axilla [L73.2]10/27/2012 Comedone [L70.0] 10/27/2012 Iron deficiency [E61.1] 02/02/2020 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] 09/04/2023 Primary hyperaldosteronism (HCC) [E26.09] 09/04/2023 Encounter Status:Closed by VALARIE WHARTON on 09/06/23 [facility] Cortis p Dex SerPl-casandraon Cortisol post dose dexamethasone [Mass/Vol] 0.9 ug/dL Normal <1.8 [facility] Comment on above: Order Comment: Speci men Type: BLOOD SPECIMENOrdering Facility: [facility] Address: [address] [place] [address] Result Comment: Afte r overnight 1 mg dexamethasone, an successfactors consultant cortisol of <1.8 ug/dL may indicate an adequate cortisol suppression. This result should be interpreted within the clinical context and other test results. Samra et al. Evidence for the Low Dose Dexamethasone Suppression Test to Screen for Mohit's Syndrome - Recommendations for a Protocol for Biochemistry Laboratories. 1997 Sybil. Clin. Biochem. 34 222-229. Performed By: #### 4 7851-1 ####[facility] [id number] [facility] [id number] [place] [address] OF [facility] Corwin 09-05-2023 CNPN Telephone (GENSMN) -- HEIDI JOY ([id number]) 1990 F Date Time Provider Department 09/05/23 MARIO SANTIAGO During your visit today, we recorded the following information about you: Allergies As of Date: 09/05/2023 (No Known Allergies) Date Reviewed: 02/02/2020 Reviewed by: Glo Mcmillan MA - Fully Assessed Reason for Visit: Appointment [186] Cmt: Called patient and left a message that patient was added to 's schedule for a virtual appointment for 09/12 at 11AM per . Sent [employer] message and mailed out appointment reminder Prescriptions as of 09/05/2023 - busPIRone (BUSPAR) 10 mg tablet TAKE 1 TABLET (10 MG) BY MOUTH IN THE MORNING AND BEFORE BEDTIME - hydrALAZINE (APRESOLINE) 100 mg tablet Take 1 tablet by mouth two times a day. - carvedilol (COREG) 25 mg tablet Take 1 tablet by mouth two times a day. - gabapentin (NEURONTIN) 400 mg capsule 1 capsule. - lamoTRIgine (LAMICTAL) 150 mg tablet Take 150 mg by mouth. - lurasidone (LATUDA) 60 mg tab tablet Take 60 mg by mouth. - REXULTI 1 mg tablet TAKE 1 TABLET BY MOUTH ONCE DAILY AT THE SAME TIME - potassium chloride ER (KLOR-CON) 20 mEq tablet Take 20 mEq by mouth. - SUMAtriptan (IMITREX) 100 mg tablet TAKE 1 TAB AT MIGRAINE ONSET, MAY REPEAT IN 2 HOURS NEEDED, MAX 2 TABS IN 24 HOURS - zolpidem (AMBIEN) 10 mg - Ferrous Sulfate 27 mg iron tab Take by mouth twice daily. Problem List As Of Date 09/05/2023 Noted Resolved Hidradenitis suppurativa of right axilla [L73.2]10/27/2012 Comedone [L70.0] 10/27/2012 Iron deficiency [E61.1] 02/02/2020 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] 09/04/2023 Primary hyperaldosteronism (HCC) [E26.09] 09/04/2023 Encounter Status:Closed by NIRMAL CHOUDHURY on 09/05/23 [facility] -- HEIDI JOY ([id number]) 1990 F Date Time Provider Department 09/04/23 VIKKI BALDERRAMA During your visit today, we recorded the following information about you: Vikki Balderrama MD 09/04/2023 2:43 PM Signed Component Latest Ref Rng AND Units 08/30/2023 Protein, Total 6.3 - 8.0 g/dL 6.7 Albumin 3.9 - 4.9 g/dL 4.2 Calcium 8.5 - 10.2 mg/dL 9.4 Bilirubin, Total 0.2 - 1.3 mg/dL 1.2 Alkaline Phosphatase 34 - 123 U/L 127 (H) AST 13 - 35 U/L 14 ALT 7 - 38 U/L 16 Glucose 74 - 99 mg/dL 91 BUN 7 - 21 mg/dL 12 Creatinine 0.58 - 0.96 mg/dL 0.66 Sodium 136 - 144 mmol/L 146 (H) Potassium 3.7 - 5.1 mmol/L 2.8 (L) Chloride 97 - 105 mmol/L 109 (H) CO2 22 - 30 mmol/L 27 Anion Gap 9 - 18 mmol/L 10 eGFR >=60 mL/min/1.73mA? 120 Metanephrine, Plasma 12 - 67 pg/mL 28 Normetanephrine, Free Plasma 18 - 101 pg/mL 84 Direct Renin 4.2 - 52.2 pg/mL <2.1 (L) Patient Upright or Supine Upright ACTH 7.2 - 63.3 pg/mL 22.2 Aldosterone 0.0 - <35.4 ng/dL 79.8 (H) Cortisol 4.8 - 19.5 ug/dL 9.5 DHEA-S 98.8 - 340.0 ug/dL 188.1 Labs reviewed, spoke to patient today Most likely has primary hyperaldo Plan: Will do 1mg overnight dexamethasone suppression test Refer to endocrinology surgery Advised to get CT images in a CD Allergies As of Date: 09/04/2023 (No Known Allergies) Date Reviewed: 02/02/2020 Reviewed by: Glo Mcmillan MA - Fully Assessed Reason for Visit: Results [95] Primary Visit Diagnosis: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] Other Visit Diagnosis:Primary hyperaldosteronism (HCC) [E26.09] Order(s):DEXAMETHASONE [SQDEXA] Order #: [id number] FUTURE CORTISOL SUPRES POST [SQONCORP] Order #: [id number] FUTURE CONSULT TO ENDOCRINE SURGERY [2393124] Order #: [id number]: 1 FUTURE Prescriptions as of 09/04/2023 - busPIRone (BUSPAR) 10 mg tablet TAKE 1 TABLET (10 MG) BY MOUTH IN THE MORNING AND BEFORE BEDTIME - hydrALAZINE (APRESOLINE) 100 mg tablet Take 1 tablet by mouth two times a day. - carvedilol (COREG) 25 mg tablet Take 1 tablet by mouth two times a day. - gabapentin (NEURONTIN) 400 mg capsule 1 capsule. - lamoTRIgine (LAMICTAL) 150 mg tablet Take 150 mg by mouth. - lurasidone (LATUDA) 60 mg tab tablet Take 60 mg by mouth. - REXULTI 1 mg tablet TAKE 1 TABLET BY MOUTH ONCE DAILY AT THE SAME TIME - potassium chloride ER (KLOR-CON) 20 mEq tablet Take 20 mEq by mouth. - SUMAtriptan (IMITREX) 100 mg tablet TAKE 1 TAB AT MIGRAINE ONSET, MAY REPEAT IN 2 HOURS NEEDED, MAX 2 TABS IN 24 HOURS - zolpidem (AMBIEN) 10 mg - Ferrous Sulfate 27 mg iron tab Take by mouth twice daily. Problem List As Of Date 09/04/2023 Noted Resolved Hidradenitis suppurativa of right axilla [L73.2]10/27/2012 Comedone [L70.0] 10/27/2012 Iron deficiency [E61.1] 02/02/2020 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] 09/04/2023 Primary hyperaldosteronism (HCC) [E26.09] 09/04/2023 Medications Discontinued During This Encounter Prescriptions - dexAMETHasone (DECADRON) 1 mg tablet (Discontinued) Take 1 tablet at 11 pm and draw blood the next day Encounter Status:Closed by VIKKI BALDERRAMA on 09/04/23 Normal [facility] US renal doppleron US renal doppler [facility] [place] [place] [address] Ultrasound Report Signed Patient: Heidi Joy MR#: [id number] : 1990 Acct:[id number] Age/Sex: 33 / F ADM Date: 08/30/23 Loc: Room: Type: [facility] Attending Dr: Zara Ralph MD Ordering Provider: Zara Ralph MD Date of Service: 08/30/23 US/US renal doppler: E87.6, E87.3, I10. E27.9 Copies to: Zara Ralph MD Renal artery duplex examination performed using B-mode, color flow and spectral Doppler assessment. (CPT: 28366) INDICATION: Hypertension FINDINGS: Aorta: PSV 94.9 cm/s [...] Efrem Jo MD08/31/2023 3:55 PM Dictation Location: [place] [address] Tech: Hermelinda Alonso Transcribed By: KATHLEEN 08/31/23 155 Dictated By: Efrem Jo MD 08/31/23 155 Signed By: 08/31/23 1555 [facility] ACTH Plas-mCncon 08-30-2023 Corticotropin (P) [Mass/Vol] 22.2 pg/mL Normal 7.2-63.3 [facility] Comment on above: Order Comment: Speci men Type: BLOOD SPECIMEN [facility] Address: [address] [place] [address] Result Comment: ACTH Reference Range: 7-10 am: 7.2 - 63.3 pg/mL Performed By: #### 2 141-0 #### [facility] CLIA [id number] [address] [place], [place] [address] [address] [place] Aldost SerPl-mCncon 08-30-19 Aldosterone [Mass/Vol] 79.8 ng/dL High 0.0-<35.4 Cl [facility] Comment on above: Order Comment: Speci men Type: BLOOD SPECIMEN [facility] Address: [address] [place] [address] Result Comment: The reference interval for serum/plasma aldosterone is based on a normal sodium intake and upright position. High sodium intake may suppress aldosterone and low sodium intake may increase aldosterone. The supine reference interval is <23.7 ng/dL. A ratio of aldosterone in ng/dL to direct renin in pg/mL greater than or equal to 3.8 is a positive screening test result for primary aldosteronism, when aldosterone is greater than or equal to 15 ng/dL. Performed By: #### R ENIND #### [facility] CLIA [id number] [address] [place] [address] STATES OF [facility] CLIA [id number] [address] [place] [address] #### 1763-2 #### [facility] CLIA [id number] [address] [place] [address] [facility] [place] Comprehensive metabolic 2000 panelon 08-30-2023 Albumin [Mass/Vol] 4.2 g/dL Normal 3.9-4.9 [facility] Comment on above: Order Comment: Speci men Type: BLOOD SPECIMEN [facility] Address: [address] [place] [address] Performed By: #### 2 4323-8 #### [facility] CLIA [id number] [address] [place] [address] ALP [Catalytic activity/Vol] 127 U/L High 34-123 [facility] Comment on above: Order Comment: Speci men Type: BLOOD SPECIMEN [facility] Address: [address] [place] [address] Performed By: #### 2 4323-8 #### [facility] CLIA [id number] [address] [place] [address] ALT [Catalytic activity/Vol] 16 U/L Normal 7-38 [facility] Comment on above: Order Comment: Speci men Type: BLOOD SPECIMEN [facility] Address: [address] [place] [address] Performed By: #### 2 4323-8 #### [facility] CLIA [id number] [address] [place] [address] Anion gap [Moles/Vol] 10 mmol/L Normal 9-[address] [facility] Comment on above: Order Comment: Speci men Type: BLOOD SPECIMEN [facility] Address: [address] [place] [address] Performed By: #### 2 4323-8 #### [facility] CLIA [id number] [address] [place] [address] AST [Catalytic activity/Vol] 14 U/L Normal 13-35 [facility] Comment on above: Order Comment: Speci men Type: BLOOD SPECIMEN [facility] Address: [address] [place] [address] Performed By: #### 2 4323-8 #### [facility] CLIA [id number] [address] [place] [address] Bilirubin [Mass/Vol] 1.2 mg/dL Normal 0.2-1.3 [facility] Comment on above: Order Comment: Speci men Type: BLOOD SPECIMEN [facility] Address: [address] [place] [address] Performed By: #### 2 4323-8 #### [facility] CLIA [id number] [address] [place] [address] Calcium [Mass/Vol] 9.4 mg/dL Normal 8.5-10.2 [facility] Comment on above: Order Comment: Speci men Type: BLOOD SPECIMEN [facility] Address: [facility] [place] [address] Performed By: #### 2 4323-8 #### [facility] CLIA [id number] [address] [place] [address] Chloride [Moles/Vol] 109 mmol/L High 97-105 [facility] Comment on above: Order Comment: Speci men Type: BLOOD SPECIMEN [facility] Address: [address] [place], [place] [address] Performed By: #### 2 4323-8 #### [facility] CLIA [id number] [address] [place] [address] CO2 [Moles/Vol] 27 mmol/L Normal 22-30 [facility] Comment on above: Order Comment: Speci men Type: BLOOD SPECIMEN [facility] Address: [address] [place] [address] Performed By: #### 2 4323-8 #### [facility] CLIA [id number] [address] [place] [address] Creatinine [Mass/Vol] 0.66 mg/dL Normal 0.58-0.[address] [facility] Comment on above: Order Comment: Speci men Type: BLOOD SPECIMEN [facility] Address: [address] [place] [address] Performed By: #### 2 4323-8 #### [facility] CLIA [id number] [address] [place] [address] Creatinine and Glomerular filtration rate.predicted panel (S/P/Bld) 120 mL/min/1.73m??? Normal >=60 [facility] Comment on above: Order Comment: Speci men Type: BLOOD SPECIMEN [facility] Address: [address] [place], [place] [address] Result Comment: Rachel mated Glomerular Filtration Rate [...] GFR. Performed By: #### 2 4323-8 #### [facility] CLIA [id number] [address] [place] [address] Glucose [Mass/Vol] 91 mg/dL Normal 74-99 [facility] Comment on above: Order Comment: Peter myles Type: BLOOD SPECIMEN [facility] Address: [address] [place] [address] Result Comment: The [place] Diabetes Association (ADA) provides guidance for cutoff [...] Standards of Medical Care in Diabetes 2016, [place] [employer] Association. Diabetes Care. 2016.39(Suppl 1). Performed By: #### 2 4323-8 #### [facility] CLIA [id number] [address] [place] [address] Potassium [Moles/Vol] 2.8 mmol/L Low 3.7-5.[address] [facility] Comment on above: Order Comment: Peter myles Type: BLOOD SPECIMEN [facility] Address: [address] [place] [address] Performed By: #### 2 4323-8 #### [facility] CLIA [id number] [address] [place] [address] Protein [Mass/Vol] 6.7 g/dL Normal 6.3-8.0 [facility] Comment on above: Order Comment: Peter myles Type: BLOOD SPECIMEN [facility] Address: [address] [place] [address] Performed By: #### 2 4323-8 #### [facility] CLIA [id number] [address] [place] [address] Sodium [Moles/Vol] 146 mmol/L High 136-144 [facility] Comment on above: Order Comment: Speci men Type: BLOOD SPECIMEN [facility] Address: [address] [place] [address] Performed By: #### 2 4323-8 #### [facility] CLIA [id number] [address] [place] [address] Urea nitrogen [Mass/Vol] 12 mg/dL Normal 7-21 [facility] Comment on above: Order Comment: Speci men Type: BLOOD SPECIMEN [facility] Address: [address] [place] [address] Performed By: #### 2 4323-8 #### [facility] CLIA [id number] [address] [place] [address] Tamie Pamelal-mCncon 08-30-19 24 Cortisol [Mass/Vol] 9.5 ug/dL Normal 4.8-19.5 [facility] Comment on above: Order Comment: Speci men Type: BLOOD SPECIMENOrdering Facility: [facility] Address: [address] [place] [address] Result Comment: Prov ided reference range is from 6-10 AM sample collection time. Cortisol Reference Range: 6-10 AM = 4.8-19.5 ug/dL, 4-8 PM = 2.5-11.9 ug/dL Performed By: #### D RAMON, 2143-6 ####[facility] [id number] [facility] [id number] [address] [place] DHEA-S Don 08-30-2023 DHEA-S [Mass/Vol] 188.1 ug/dL Normal 98.8-340.0 [facility] Comment on above: Order Comment: Speci men Type: BLOOD SPECIMENOrdering Facility: [facility] Address: [address] [place] [address] Result Comment: Refe rence ranges are age and gender specific. For additional information, reference range tables can be found in the laboratory test directory. The normal values are based on the following source: Dehydroepiandrosterone sulfate (DHEA S) [package insert V 17.0 [place]]. [facility], [place], [place]: March 2013. Performed By: #### Jael NAVARRO, 2143-6 ####[facility] [id number] [place] [address] [place] DIRECT RENIN PLASMAon 2023 DIRECT RENIN <2.1 Low 4.2-52.2 [facility] Comment on above: Order Comment: Speci men Type: BLOOD SPECIMEN [facility] Address: [address] [place] [address] Result Comment: A ra yue of aldosterone in ng/dL to direct renin in pg/mL greater than or equal to 3.8 is a positive screening test result for primary aldosteronism, when aldosterone is greater than or equal to 15 ng/dL. The reference interval for direct renin is based on an upright position. The supine reference intervals are: Age <41 years: 3.2-33.2 pg/mL Age >=41 years: 2.5-45.1 pg/mL Performed By: #### R ENIND #### [facility] CLIA [id number] [address] [place] [address] [place] [facility] CLIA [id number] [address] [place] [address] #### 1763-2 #### [facility] CLIA [id number] [address] [place] [address] [place] PATIENT UPRIGHT OR SUPINE Upright Normal [facility] Comment on above: Order Comment: Joselyni men Type: BLOOD SPECIMEN [facility] Address: [address] [place] [address] Performed By: #### R ENIND #### [facility] CLIA [id number] [address] [place] [address] OF [facility] CLIA [id number] [address] [place] [address] #### 1763-2 #### [facility] CLIA [id number] [address] [place] [address] [place] METANEPHRINES, FREE PLASMAon 08-30-2023 METANEPHRINE, PLASMA 28 pg/mL Normal 12-67 [facility] Comment on above: Order Comment: Peter myles Type: BLOOD SPECIMEN [facility] Address: [address] [place] [address] Result Comment: Refe rence Ranges: Hypertensive adult > or = 18 yrs old: 12-72 pg/mL Normotensive adult > or = 18 yrs old: 12-67 pg/mL Normotensive children < 18 yrs old: 10-95 pg/mL Performed By: #### P METAN #### [facility] CLIA [id number] [address] [place] [address] [place] NORMETANEPHRINE, PLASMA 84 pg/mL Normal 18-101 [facility] Comment on above: Order Comment: Speccollins myles Type: BLOOD SPECIMEN [facility] Address: [address] [place] [address] Result Comment: Refe rence Ranges: Hypertensive adult > or = 18 yrs old: 24-145 pg/mL Normotensive adult > or = 18 yrs old: 18-101 pg/mL Normotensive children < 18 yrs old: 22-83 pg/mL Methyldopa may cause false elevation of normetanephrine levels in this assay. If patient is on methyldopa, interpret results with caution. Performed By: #### P METAN #### [facility] CLIA [id number] [address] [place] [address] [place] MR FOOT RIGHT [...] with adrenal adenoma. ELECTRONICALLY SIGNED BY: Karson Painter DO Normal Not Available [facility]on SARS-CoV-2 (COVID-19) RNA DARWIN+probe Ql (Unsp spec) Not detected Normal NOT DETECTED [facility] Comment on above: Result Comment: This test is not yet approved or cleared by the [place] FDA. When there are no FDA-approved or cleared tests available, and other criteria are met, FDA can make tests available under an emergency access mechanism called an Emergency Use Authorization (EUA). The EUA for this test is supported by the [place] of Health and Human Service's (HHS's) declaration [...] SARS-CoV-2. Performed By: #### C VDTBH #### [facility] [address] [place] [address] Dr. Maylin Ch Follow-Upon 11-05-2022 Follow-Up [id number] Janine Joy 1990 F Date Provider Department Center 11/05/2022 [facility] ONC DCC Family History Problem Relation Age of Onset Diabetes Mother Thyroid cancer Mother Diabetes Father Hypertension Father Family Status - Relation Status Age at Mother Father Level of Service:38375 AL OFFICE/OUTPATIENT ESTABLISHED MOD MDM 30-39 MIN Normal [facility] DRUG SCREEN RAPID (URINE)on 10-23-2022 AMP Negative Normal NEGATIVE [facility] Comment on above: Performed By: #### D RUGRPD #### [facility] [address] [place] [address] [address] Maylin Ch BAR Negative Normal NEGATIVE [facility] Comment on above: Performed By: #### D RUGRPD #### [facility] [address] [place], [place] [address] Dr. Maylin Ch BUP Negative Normal NEGATIVE [facility] Comment on above: Performed By: #### D RUGRPD #### [facility] [address] [place] [address] Dr. Maylin Ch BZO Negative Normal NEGATIVE [facility] Comment on above: Performed By: #### D RUGRPD #### [facility] [address] [place] [address] Dr. Maylin Ch DRE Negative Normal NEGATIVE [facility] Comment on above: Performed By: #### D RUGRPD #### [facility] [address] [place] [address] Dr. Maylin Ch CUT-OFFS SEE BELOW Normal [facility] Comment on above: Result Comment: AMP [...] ng/mL Performed By: #### D RUGRPD #### [facility] [address] [place] [address] Dr. Maylin hC DRUG CUT HEADER DRUG CLASS TEST SYST EM CUT-OFF CONCENTRATIONS ARE FOLLOWS: Normal [facility] Comment on above: Performed By: #### D RUGRPD #### [facility] [address] [place] [address] Dr. Maylin Ch mAMP Negative Normal NEGATIVE [facility] Comment on above: Performed By: #### D RUGRPD #### [facility] [address] [place] [address] Dr. Maylin Ch MTD Negative Normal NEGATIVE [facility] Comment on above: Performed By: #### D RUGRPD #### [facility] [address] [place] [address] Dr. Maylin Ch OPI Negative Normal NEGATIVE [facility] Comment on above: Performed By: #### D RUGRPD #### [facility] [address] [place] [address] [address] Maylin Ch OXY Negative Normal NEGATIVE [facility] Comment on above: Performed By: #### D RUGRPD #### [facility] [facility] [address] [address] [address] Maylin Ch PCP Negative Normal NEGATIVE [facility] Comment on above: Performed By: #### D RUGRPD #### [facility] [address] [address] [address] Maylin Ch PPX Negative Normal NEGATIVE [facility] Comment on above: Performed By: #### D RUGRPD #### [facility] [address] [address] [address] Maylin Ch TCA Negative Normal NEGATIVE [facility] Comment on above: Performed By: #### D RUGRPD #### [facility] [address] [address] [address] Maylin Ch THC Negative Normal NEGATIVE [facility] Comment on above: Performed By: #### D RUGRPD #### [facility] [address] [address] [address] Maylin Ch MR BRAIN W AND [...] of ventriculomegaly. Electronically signed: Frank Lara. Normal [facility] Potassiumon 09-13-2022 Potassium [Moles/Vol] 3.3 mmol/L Low 3.5-5.1 [facility] Comment on above: Order Comment: Reaso n for Exam Plantar fasciitis;Encounter for preoperative assessment Result Comment: PERF ORMED BY: [place] [address] PATHOLOGIST SAW REPAIRER MARY ANN LAL M.D. Performed By: #### K #### [address] Serum or plasma potassium me asurement (moles/volume)Ordered By: Manasa Rhodes on 09-13-2022 Potassium [Moles/Vol] 3.3 mmol/L 3.5-5.1 [facility] Office Visiton 09-10-2022 Follow-up visit [id number] Janine Joy 1990 F Date Provider Department Center 09/10/2022 RAVINDRA BUCKLEY ONC DCC Family History Problem Relation Age of Onset Diabetes Mother Thyroid cancer Mother Diabetes Father Hypertension Father Family Status - Relation Status Age at Mother Father Level of Service:91363 AL OFFICE/OUTPATIENT ESTABLISHED MOD MDM 30-39 MIN Reason for Visit and Comments: Consult [484] - Past patient, coming back today to have imaging reordered. Normal [facility] Orders Onlyon 09-10-2022 Orders Only [id number] Janine Joy 1990 F Date Provider Department Center 09/10/2022 MONICA DOMINGUEZ DCC ONC DCC Family History Problem Relation Age of Onset Diabetes Mother Thyroid cancer Mother Diabetes Father Hypertension Father Family Status - Relation Status Age at Mother Father Normal [facility] MAGNESIUMon 09-07-2022 Magnesium [Mass/Vol] 1.9 mg/dL Normal 1.8-2.4 [facility] Comment on above: Performed By: #### M Court PHOS, BMP #### [facility] [address] [place] [address] Dr. Maylin Ch PHOSPHORUSon 09-07-2022 Phosphate [Mass/Vol] 3.7 mg/dL Normal 2.6-4.7 [facility] Comment on above: Performed By: #### Jose F Yun PHOS, BMP #### [facility] [address] [place] [address] Dr. Maylin Ch PROF CHEM 8 (BAS METB)on Anion gap [Moles/Vol] 14.3 mmol/L Normal [facility] Comment on above: Performed By: #### Jose F Yun PHOS, BMP #### [facility] [address] [place] [address] Dr. Maylin Ch Calcium [Mass/Vol] 9.3 mg/dL Normal 8.5-10.1 [facility] Comment on above: Performed By: #### Jose F Yun PHOS, BMP #### [facility] [address] [place] [address] Dr. Maylin Ch Chloride [Moles/Vol] 105 mmol/L Normal 98-107 [facility] Comment on above: Performed By: #### Jose F Yun PHOS, BMP #### [facility] [address] [place] [address] Dr. Maylin Ch CO2 [Moles/Vol] 31.0 mmol/L Normal 21.0-32.0 [facility] Comment on above: Performed By: #### Jose F Yun, PHOS, BMP #### [facility] [address] [place] [address] Dr. Maylin Ch Creatinine [Mass/Vol] 0.90 mg/dL Normal 0.55-1.02 [facility] Comment on above: Performed By: #### M Court, PHOS, BMP #### [facility] [address] [address] [address] Maylin Ch EGFR-AF [facility] >60 Normal >=60 [facility] Comment on above: Performed By: #### M G, PHOS, BMP #### [facility] [address] [address] [address] Maylin Ch EGFR-NON AF [facility] >60 Normal >=60 [facility] Comment on above: Performed By: #### M G, PHOS, BMP #### [facility] [address] [address] [address] Maylin Ch Glucose [Mass/Vol] 158 mg/dL Critically high 74-106 [facility] Comment on above: Performed By: #### M Court, PHOS, BMP #### [facility] [address] [place] [address] Dr. Maylin Ch Potassium [Moles/Vol] 2.3 mmol/L Critically low 3.5-5.1 [facility] Comment on above: Performed By: #### M Court PHOS, BMP #### [facility] [address] [address] [address] Maylin Ch Sodium [Moles/Vol] 147 mmol/L Critically high 136-145 [facility] Comment on above: Performed By: #### M Court, PHOS, BMP #### [facility] [address] [address] [address] Maylin Ch Urea nitrogen [Mass/Vol] 7.0 mg/dL Normal 7.0-18.0 [facility] Comment on above: Performed By: #### M Court, PHOS, BMP #### [facility] [address] [place] [address] Dr. Maylin Ch Urea nitrogen/Creatinine [Mass ratio] 7.8 mg/mg Normal [facility] Comment on above: Performed By: #### M Court, PHOS, BMP #### [facility] [address] [address] [address] Maylin Ch Potassiumon 09-07-2022 Potassium [Moles/Vol] 2.4 mmol/L Off scale low 3.5-5.1 [facility] Comment on above: Result Comment: Resu lts called at 0807 on 09/07/22 PERFORMED BY: [place] [address] PATHOLOGIST SAW REPAIRER MARY ANN LAL M.D. Performed By: #### K #### [facility] [address] Serum or plasma potassium me asurement (moles/volume)Ordered By: NON STAFF on 09-07-2022 Potassium [Moles/Vol] 2.4 mmol/L 3.5-5.1 [facility] Comment on above: Results calledat 080 [...] for a consultation for. POC Dr. Benson, [facility] Bariatrics- Bariatric sx History of Present [...] Vital Signs Recorded: 06Jun2022 04:17PMRecorded: 06Jun2022 03:45PM [id number], LUE, Sitting Rdioxbrsn09913, LUE, Sitting Heart Rate71, Apical Height5 ft 7 in Epprmx466 lb BMI Syacdquyke73.77 kg/m2 BSA Calculated2.42 Tobacco Useb) No PHQ-2 [...] to auscul (more content not included)... Normal [facility] Tobacco Screening.on 022 Adult depression screening assessment No -[facility] [employer] 250 DO Work Phone: Tobacco use status CPHS b) No M -[facility] [employer] 250 DO Work Phone: DHEA SERUMon 01-12-2022 Dehydroepiandrosterone (DHEA) 287 ng/dL Normal 31-[address] [facility] Comment on above: Result Comment: Age [...] 31 - 701 Performed By: #### D [facility]. #### [facility] [address] [address] [address] Yilan Ch TESTOSTERONE, FREE,DIRECT, T OTALon 01-06-2022 Free Testosterone(Direct) 1.6 pg/mL Normal 0.0-4.2 [facility] Comment on above: Result Comment: Perf ormed at: BN Performed By: #### T ESTFRD #### [facility] [address] [place] [address] Dr. Maylin Ch Testosterone [Mass/Vol] 17 ng/dL Normal 13-71 T [facility] Comment on above: Result Comment: Perf ormed at: CB Performed By: #### T ESTFRD #### [facility] [address] [place] [address] Dr. Maylin Ch INSULINon 01-05-2022 Insulin 13.2 uIU/mL Normal 2.6-24.9 [facility] Comment on above: Performed By: #### I NSULIN #### [facility] [address] [place] [address] Dr. Maylin Ch GLYCOHEMOGLOBIN A1Con 2021 ADA RECOMMENDATION SEE BELOW Normal [facility] Comment on above: Result Comment: ADA RECOMMENDED LIMIT 4.0 - 6.0 ADA THERAPEUTIC TARGET < 7.0 ACTION SUGGESTED > 7.0 Performed By: #### A 1C #### [facility] [address] [place] [address] Dr. Maylin Ch Glucose [Mass/Vol] 146 mg/dL Normal [facility] Comment on above: Performed By: #### A 1C #### [facility] [address] [place] [address] Dr. Maylin Ch HbA1c (Bld) [Mass fraction] 6.7 % Critically high 4.5-6.2 [facility] Comment on above: Performed By: #### A 1C #### [facility] [address] [place] [address] Dr. Maylin Ch TSHon 01-04-2022 TSH 3.214 uIU/mL Normal 0.358-3.74 0 [facility] Comment on above: Performed By: #### T SH #### [facility] [address] [place] [address] Dr. Maylin Ch TSH RANGE SEE BELOW Normal [facility] Comment on above: Result Comment: <0.3 4 UIU/ml HYPERTHYROID 0.34-5.60 UIU/ml EUTHYROID >5.60 UIU/ml HYPOTHYROID Performed By: #### T SH #### [facility] [address] [place], [place] [address] Dr. Maylin Ch Potassiumon 10-05-2021 Potassium [Moles/Vol] 3.3 mmol/L Low 3.5-5.5 [facility] Specialist Comment on above: Performed By: #### K #### [facility] [address] [place], [place] [id number] [place] 09-11-2021 Consent [id number]#1.00CD:127 Normal [facility] Registrationon 09-11-2021 Registration [id number]#1.00CD:127 Normal [facility] Basic Metabolic Panelon 08-06 Anion gap [Moles/Vol] 21 mmol/L High 12-20 [facility] Telephone Surveyor Comment on above: Result Comment: Effe ctive 08/10/2019 reference range changed. Performed By: #### B MP #### [facility] [address], [place] [id number] Calcium [Mass/Vol] 9.3 mg/dL Normal 8.6-10.2 [facility] Specialist Comment on above: Performed By: #### B MP #### [facility] [address], [place] [id number] Chloride [Moles/Vol] 106 mmol/L Normal 98-107 [facility] Specialist Comment on above: Performed By: #### B MP #### [facility] [address], [place] [id number] CO2 [Moles/Vol] 20 mmol/L Normal 20-31 [facility] Telephone Surveyor Comment on above: Performed By: #### B MP #### [facility] [address], [place] [id number] Creatinine [Mass/Vol] 0.7 mg/dL Normal 0.6-1.4 [facility] Comment on above: Performed By: #### B MP #### [facility] [address], [place] [id number] eGFRAA 115 mL/min/1.73m2 Normal >60 [facility] Comment on above: Performed By: #### B MP #### [facility] [address], [place] [id number] eGFRNAA 95 mL/min/1.73m2 Normal >60 [facility] Specialist Comment on above: Performed By: #### B MP #### [facility] [address], [place] [id number] Glucose [Mass/Vol] 184 mg/dL High 65-99 Syd[facility] Telephone Surveyor Comment on above: Result Comment: For FASTING Glucose --- ADA reference ranges: Normal 65-99 mg/dl Prediabetes 100-125 Diabetes >/= 126 Performed By: #### B MP #### [facility] [address], [place] [id number] Potassium [Moles/Vol] 2.8 mmol/L Critically low 3.5-5.5 [facility] Specialist Comment on above: Result Comment: Crit ical result called to Dr Rhodes/Rylee at 09/01/2021 11:58 AM by Cyndie Montanez (Bertha) Performed By: #### B MP #### [facility] [address], [place] [id number] Sodium [Moles/Vol] 144 mmol/L Normal 135-146 [facility] Telephone Surveyor Comment on above: Performed By: #### B MP #### [facility] [address], [place] [id number] Urea nitrogen [Mass/Vol] 10 mg/dL Normal 7-25 [facility] Telephone Surveyor Comment on above: Performed By: #### B MP #### [facility] [address], [place] [id number] [place] 08-17-2021 Consent [id number]#1.00CD:127 Normal [facility] Registrationon 08-17-2021 Registration [id number]#[id number]:127 Normal [facility] Registrationon 04-04-2021 Registration [id number]#1.00CD:127 Normal [facility] Consenton 04-03-2021 Consent [id number]#1.00CD:127 Normal [facility] MRI BRAIN W WO CONTRASTon MRI BRAIN W WO CONTRAST [facility] Department of Radiology [address] [place] [phone] Patient Name: HEIDI JOY : 1990 Sex: F Age: Race: White Pt. Location: 29 Patient Status: O Ordered Date: 02/04/2020 2:05:00 PM Completed Date: 03/17/2020 10:13 AM Requesting Provider: GANGA RODRIGUES Attending Provider: GANGA RODRIGUES Report Copy To: IMMANUEL KUHN Signs & Symptoms: C71.9 Malignant neoplasm of brain, unspecified I10 History: Nita AMES AUTH [id number] VALID 03/04-04/03/2020 [id number] KW Comments: , 1p-19q co-deleted oligodendroglioma of [...] reports Electronically signed: Shawn Martins. Transcribed by: [email or web address], User Resident: JONATHAN ARCE Electronically Signed by: SHAWN MARTINS @ 03/17/2020 12:45 PM I personally read this/these film(s) with this resident Normal [facility] Comment on above: Order Comment: [...] WO CONTRASTon MRI BRAIN W WO CONTRAST [facility] Department of Radiology [address] [place] [phone] Patient Name: HEIDI JOY : 1990 Sex: F Age: Race: White Pt. Location: 29 Patient Status: O Ordered Date: 03/20/2019 11:25:00 AM Completed Date: 09/11/2019 10:54 AM Requesting Provider: ALISA CH Attending Provider: ALISA CH Report Copy To: IMMANUEL KUHN Signs & Symptoms: C71.9 Malignant neoplasm of brain, unspecified I10 History: Nita ames auth # [id number] 08/28/2019-09/27/2019 cpt code 65747 *mla Comments: , 1p-19q co-deleted oligodendroglioma of [...] reports Electronically signed: Jim Curiel. Transcribed by: [email or web address], User Resident: DANDY HUFFMAN Electronically Signed by: JIM CURIEL @ 09/11/2019 04:35 PM I personally read this/these film(s) with this resident Normal [facility] Comment on above: Order Comment: [...] Summaryon 01-29-2018 Coding Summary CODING DATE: 018 [facility] STATUS: Home PAYOR: Medicaid HMO ADMIT [...] Swanson' Date Saved: 01/29/2018 03:42 pm Normal [facility] ED Clinical Summaryon 2017 ED Clinical Summary [facility] ? Urgent [address] [place], [place] [id number] Clinical SummaryPERSON INFORMATIONName: HEIDI JOY Age: 27 Years Sex: FEMALEDOB: [birth year] MRN: Acct#:Visit Reason: UC - Rash; UC - Rash; RASH/ BILAT LEGS Arrival: 01/23/18 10:43:00 Discharge: 01/23/18 11:18:00LOS: 000 00:35 Check In: 01/23/18 10:43:00 Checkout: 01/23/18 11:18:00Address:[address] [place] [id number]: Immanuel Kuhn JPROVIDER INFORMATIONProvider Role Assigned UnassignedSpCarmelo Perez ED PA 01/23/18 10:48:23Cristal Dunaway ED Nurse 01/23/18 10:53:41VITALS INFORMATIONVital Sign Triage LatestTemperature TympanicTemperature Temporal ArteryPulse Rate 79 bpm 79 bpmO2 Sat 97 % 97 %Respiratory Rate 16 br/min 16 br/minBlood Pressure 162 mmHg/98 mmHg 162 mmHg/98 mmHgMEDICAL INFORMATIONMedications Given:Allergy Information:No Known Medication AllergiesPHYSICIAN DOCUMENTATIONDISCHARGE INFORMATION:Discharge Disposition: HomeDischarge Location:PATIENT EDUCATION INFORMATIONInstructions: Poison Chappell Dermatitis, Wemn-hq-EcnoMgnyod-Up:With : Address: When:Immanuel Kuhn [address] [place] [address]., [address] [place] [id number] [facility] (1)Comments:Begin on the prednisone 2 tablets daily for 5 days take with food to avoid gastric refluxBegin on the Claritin 1 tab daily for the next 2 weeks Follow-up with primary care provider in 3-5 days sooner if worse.DIAGNOSIS:urushiol induced contact dermatitisPatient Understands: Yes - Patient/family/caregiver verbalizes understanding of instructions givenComment: [facility] ED Note - Physicianon 2017 ED Note - Physician Patient: HONORIO JOY : 27 years Sex: FEMALE : [birth year]Associated Diagnoses: urushiol induced contact dermatitisAuthor: [place] InformationTime seen: Date & time 01/23/18 11:01:00.History source: Patient.Arrival mode: Private vehicle.History limitation: None.Additional information: Chief Complaint from Nursing Triage Note : Chief Pyxuujjlz28/21/18 10:45 EDT Chief Complaint 2-3 days possible [...] been selected or recorded..Social history:Social & Psychosocial NgxvjgOcllwvz59/21/2018 Number used per day: 10.Problem list:Active Problems (1)Smoker.Physical Examination Vital FgdfeOoufyvczisye81/21/18 10:45 EDT Height 170.18 cm Weight 122.47 [...] was given the following educational materials: Poison Chappell Dermatitis, Iqrl-nf-Hnhu.Follow up with: Immanuel Kuhn Begin on the [...] on: 01/23/2018 11:28 EDT] [place] Normal [facility] ED Patient Summaryon 018 ED Patient Summary [facility] ? Urgent [address] [place] [address] pATIENT DISCHARGE INSTRUCTIONSPatient InformationName: HEIDI JOY Age: 27 YearsDate of : [birth year]MRN: [id number] For Visit: UC - Rash; UC - Rash; RASH/ BILAT LEGSArrival Time: 01/23/18 10:43:00Phone: [facility] Physician: Immanuel Kuhn Physician: Kailash Lakeomment:Patient EducationWith: Address: When:[address] [place] [address] Business (1)Comments:Begin on the prednisone 2 tablets daily for 5 days take with food to avoid gastric refluxBegin on the Claritin 1 tab daily for the next 2 weeks Follow-up with primary care provider in 3-5 days sooner if worse.Poison Chappell DermatitisPoison oak dermatitis is redness and soreness [...] instructions at home:General instructions? Take or apply mlem-wsz-dmxxmjg and prescription medicines only as told by [...] Reviewed: 12/28/2015[employer] Patient Education ? 2018 [employer].Medication Information:The exam and treatment you received today in the [facility] Emergency Department were for an urgent problem and are not intended as complete care. It is important for you to follow up with a doctor, nurse practitioner, or physician?s assistant media planner for ongoing care. If your symptoms become [...] number so we can reach you if necessary.[facility] has provided you with a complete list of medications post discharge. Please inform your policy analyst/provider of your visit and for further instruction [...] InformationVisit Diagnosis:Diagnoses This Visit UC - Rash ([id number]) UC - Rash ([id number]) urushiol induced contact dermatitisIf you received any [...] Weight: 122.47 kg Body Mass Index: 42.29 kg/w5Cdcksvzi List:Problem Onset CommentsSmokerMajor Tests and Procedures:The following [...] Disease Control and Prevention April 2014 Normal [facility] [place] 018 Urgent Care Record [facility] ? Urgent [address] [place] [address] pATIENT DISCHARGE INSTRUCTIONSPatient InformationName: HEDII JOY Age: 27 YearsDate of : [birth year]MRN: [id number] For Visit: UC - Rash; UC - Rash; RASH/ BILAT LEGSArrival Time: 01/23/18 10:43:00Phone: [facility] Phys[facility]: Immanuel Kuhn Physician: Tonja LakerComment:Visit Diagnosis:Diagnoses This Visit UC - Rash ([id number]) UC - Rash ([id number]) urushiol induced contact dermatitisIf you received any [...] or sign any legal documentsWith: Address: When:Immanuel Kuhn [facility] [address] [facility] [address] [place] [address] Business (1)Comments:Begin on the prednisone 2 tablets daily for 5 days take with food to avoid gastric refluxBegin on the Claritin 1 tab daily for the next 2 weeks Follow-up with primary care provider in 3-5 days sooner if worse.Medication Information:The exam and treatment you received today in the [facility] were for an urgent problem and are not intended as complete care. It is important for you to follow up with a doctor, nurse practitioner, or physician?s assistant media planner for ongoing care. If your symptoms become [...] number so we can reach you if necessary.[facility] has provided you with a complete list of medications post discharge. Please inform your policy analyst/provider of your visit and for further instruction [...] Weight: 122.47 kg Body Mass Index: 42.29 kg/h8Onskydur List:Problem Onset CommentsSmoker Patient EducationPoison Chappell DermatitisPoison oak dermatitis is redness and soreness [...] instructions at home:General instructions? Take or apply wgmx-axp-rbhuvvd and prescription medicines only as told by [...] Reviewed: 12/28/2015Nirmala Interactive Patient Education ? 2018 [employer] Viruses or BacteriaWhat?s got you sick?Antibiotics only [...] Antibiotics [place]ady.[facility]. Department of Health and Human ServicesTuscarawas Hospitalers for Disease Control and Prevention April 2014 [facility] Vital Signs Date Time Vital Sign Value Performing Clinician Facility 08-19-2023 16:00-0500 Body height 170.18 cm Zara Ramo Other [facility] Other 08-19-2023 16:00-0500 Body mass index (BMI) [Ratio] 31.76 kg/m2 Zara Ramo Other [facility] Other 08-19-2023 16:00-0500 Body temperature 97.5 [degF] Zara Ramo Other [facility] Other 08-19-2023 16:00-0500 Body weight 91.99 kg Zara Ramo Other [facility] Other 08-19-2023 16:00-0500 Diastolic blood pressure 100 mm[Hg] Zara Ramo Other [facility] Other 08-19-2023 16:00-0500 Respiratory rate 18 /min Zara Ramo Other [facility] Other 08-19-2023 16:00-0500 SaO2% (BldA) [Mass fraction] 100 % Zara Ramo Other [facility] Other 08-19-2023 16:00-0500 Systolic blood pressure 170 mm[Hg] Zara Ralph Other [facility] Other 06-06-2022 16:17-0400 Diastolic blood pressure 89 mm[Hg] Immanuel Kuhn Work Phone: [facility] 250 DO Work Phone: 06-06-2022 16:17-0400 Systolic blood pressure 138 mm[Hg] Immanuel Kuhn Work Phone: [facility] 250 DO Work Phone: 06-06-2022 15:45-0400 Body height 170.18 cm Immanuel Kuhn Work Phone: [facility] 250 DO Work Phone: 06-06-2022 15:45-0400 Body mass index (BMI) [Ratio] 47.77 kg/m2 Immanuel Kuhn Work Phone: [facility] 250 DO Work Phone: 06-06-2022 15:45-0400 Body surface area Derived from formula 2.42 m2 Immanuel Kuhn Work Phone: [facility] 250 DO Work Phone: 06-06-2022 15:45-0400 Body weight 138.35 kg Immanuel Kuhn Work Phone: [facility] 250 DO Work Phone: 06-06-2022 15:45-0400 Diastolic blood pressure 102 mm[Hg] Immanuel Kuhn Work Phone: [facility] 250 DO Work Phone: 06-06-2022 15:45-0400 Heart rate 71 /min Immanuel Kuhn Work Phone: [facility] 250 DO Work Phone: 06-06-2022 15:45-0400 Systolic blood pressure 160 mm[Hg] Immanuel Kuhn Work Phone: [facility] 250 DO Work Phone: Encounters Encounter Date Encounter Type Care Provider Facility Start: 09-10-2023 End: 09-10-2023 ambulatory MANASA DUNAWAY Not Available Start: 09-06-2023 Clinisync Result Encounter Generic External Data Provider [facility] External Department Unsolicited Start: 09-06-2023 Clinisync Result Encounter Generic External Data Provider [facility] External Department Unsolicited Start: 09-06-2023 Telephone encounter Mario encinas MD Work Phone: Endocrine Surgery Comment on above: Consult (FACE SHEET) Start: 09-06-2023 End: 09-06-2023 ambulatory IMMANUEL KUHN Facility:[facility] Start: 09-05-2023 Telephone encounter Mario encinas MD Work Phone: General Surgery Comment on above: Appointment (Called patient and left a message that patient was added to 's schedule for a virtual appointment for 09/12 at 11AM per . Sent [employer] message and mailed out appointment reminder) Start: 08-30-2023 End: 08-30-2023 ambulatory IMMANUEL KUHN Facility:[facility] Start: 08-30-2023 End: 08-30-2023 ambulatory Immanuel Kuhn Facility:[facility] Start: 08-30-2023 End: 08-30-2023 ambulatory DO Immanuel Kuhn Work Phone: [facility] Work Phone: Start: 08-30-2023 End: 08-30-2023 Patient encounter procedure DO Immanuel Kuhn Work Phone: [facility]Ul[facility] [place] Work Phone: Start: 08-23-2023 End: 08-23-2023 ambulatory Zara Ralph Other [facility] [place] Other Start: 08-23-2023 Telephone encounter Zara Ramo [facility] Start: 08-22-2023 End: 08-22-2023 ambulatory SHEILA BRAUN Not Available Start: 08-21-2023 End: 08-22-2023 ambulatory MANASA DUNAWAY Not Available Start: 08-20-2023 End: 08-20-2023 ambulatory IMMANUEL KUHN Facility:[facility] Start: 08-20-2023 End: 08-20-2023 ambulatory Vikki Balderrama MD Work Phone: Endocrinology Comment on above: 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) Start: 08-20-2023 End: 08-20-2023 Telemedicine consultation with patient Vikki Balderrama MD Work Phone: [facility] Start: 08-19-2023 End: 08-19-2023 ambulatory Zara Ramo Other [facility] Other Start: 08-19-2023 Office outpatient ne w 45 minutes Zara Ramo [facility] Start: 08-19-2023 End: 08-19-2023 Patient encounter procedure DO Immanuel Kuhn Work Phone: [facility] Work Phone: Start: 08-15-2023 End: 08-15-2023 ambulatory MANASA DUNAWAY Not Available Start: 08-14-2023 End: 08-14-2023 ambulatory SHEILA BRAUN Not Available Start: 08-07-2023 End: 08-07-2023 ambulatory ТАТЬЯНА CARTER Not Available Start: 08-02-2023 End: 08-03-2023 ambulatory JUAN BARON Not Available Start: 07-30-2023 End: 07-31-2023 ambulatory JUAN LORAINE Not Available Start: 07-24-2023 End: 07-24-2023 ambulatory JHONY GARCIA Not Available Start: 07-22-2023 End: 07-22-2023 ambulatory JUAN BARON Not Available Start: 07-18-2023 End: 07-18-2023 ambulatory ALEX NAIK Not Available Start: 07-03-2023 End: 07-04-2023 ambulatory IMMANUEL KUHN Not Available Start: 06-26-2023 End: 06-26-2023 ambulatory SHEILA BRAUN Not Available Start: 03-18-[address] Della Kim Facility: Start: 12-13-2022 Encounter for preprocedural laboratory examination DR DOCTOR FARMER [facility] Start: 12-07-2022 End: 12-08-[address] IMMANUEL KUHN Facility:[facility] Start: 12-07-2022 End: 12-08-2022 Encounter for preprocedural laboratory examination DR IMMANUEL KUHN Facility:[facility] Start: 11-05-2022 ambulatory RAVINDRA LEMA [facility] Start: 10-23-2022 End: 10-24-2022 ambulatory ZAKIA BENSON Facility:[facility] Start: 10-22-2022 End: 10-23-2022 ambulatory RAVINDRA [facility] Start: 09-13-2022 End: 09-13-2022 ambulatory Manasa Dunaway Facility:[facility] Start: 09-13-2022 Encounter for other preprocedural examination Manasa Smith [facility] Start: 09-13-2022 End: 09-13-2022 ambulatory DO Immanuel Kuhn Work Phone: [facility] Work Phone: Start: 09-13-2022 End: 09-13-2022 Patient encounter procedure DO Immanuel Kuhn Work Phone: [facility] [place] Work Phone: Start: 09-10-2022 End: 09-10-2022 ambulatory RAVINDRA LEMA [facility] Start: 09-07-2022 End: 09-08-[address] TE DARNELL . Facility:[facility] Start: 09-07-2022 End: 09-07-[address] TE DARNELL . Facility:[facility] Start: 09-07-2022 End: 09-07-2022 ambulatory Tiarra Prakash Facility:[facility] Start: 09-07-2022 End: 09-07-2022 ambulatory DO Immanuel Kuhn Work Phone: [facility] Work Phone: Start: 09-07-2022 End: 09-07-2022 Patient encounter procedure DO Immanuel Kuhn Work Phone: [facility] [place] Work Phone: Start: 08-07-2022 Rx Renewal Immanuel Kuhn Work Phone: [facility] 250 DO Work Phone: Start: 07-31-2022 End: 02-21-2023 Preprocedural examination done Generic Provider [facility] Start: 06-06-2022 Office outpatient visit 25 minutes Immanuel Tatyana [facility] Work Phone: Start: 06-06-[address] Della Kim Facility:[id number] Start: 01-04-2022 End: 01-05-[address] ESTHER ANGELES Facility: Start: 01-23-2018 End: 01-25-2018 Ambulatory [facility] Facility:[facility] Patient encounter status [facility]grather [facility] Work Phone: Procedures Date Procedure Procedure Detail Performing Clinician Start: 09-06-2023 [facility] CORTIS P DEX [facility] Generic External Data Provider Plan of Treatment Date Care Activity Detail Author Start: 12-18-2026 Screening for malign ant neoplasm of cervix [facility] Start: 10-02-2023 End: 10-02-2023 Social Work 10/02/2023 12:00 PM EST Social Work [facility] [address] [place] [id number] hSeila Braun, [facility] [address] [place] [address] [facility] Start: 09-25-2023 End: 09-25-2023 Social Work 09/25/2023 12:00 PM EST Social Work [facility] [address] [place] [address] Sheila Braun, [facility] [address] [place] [address] [facility] Start: 09-18-2023 End: 09-18-2023 Social Work 09/18/2023 12:00 PM EST Social Work [facility] [address] [place] [address] Sheila Braun, [facility] [address] [place] [address] [facility] Start: 09-11-2023 End: 09-11-2023 Social Work 09/11/2023 12:00 PM EST Social Work [facility] [address] [place] [address] Sheila Braun, [facility] [address] [place] [address] [facility] Start: 09-10-2023 End: 09-10-2023 Patient encounter procedure 09/10/2023 8:45 AM EST Office Visit [facility] [address] [place] [address] Manasa Dunaway DPM [address] [place] [address] [facility] Start: 08-30-2023 Doppler ultrasonogra phy of kidney US renal doppler [facility] Start: 08-30-2023 US Unspecified body region [facility] Start: 08-20-2023 End: 11-19-2023 Aldosterone [Mass/volume] in Serum or Plasma ALDOSTERONE BLD Lab Routine Adenoma of left adrenal gland Expected: 08/20/2023, Expires: 11/19/2023 [facility] Work Phone: Comment on above: Expected: 08/20/2023 , Expires: 11/19/2023 Start: 08-20-2023 End: 11-19-2023 Comprehensive metabolic 2000 panel - Serum or Plasma COMP METABOLIC PANEL Lab Routine Adenoma of left adrenal gland Expected: 08/20/2023, Expires: 11/19/2023 [facility] Work Phone: Comment on above: Expected: 08/20/2023 , Expires: 11/19/2023 Start: 08-20-2023 End: 11-19-2023 Corticotropin [Mass/volume] in Plasma ACTH BLD Lab Routine Adenoma of left adrenal gland Expected: 08/20/2023, Expires: 11/19/2023 [facility] Work Phone: Comment on above: Expected: 08/20/2023 , Expires: 11/19/2023 Start: 08-20-2023 End: 11-19-2023 Cortisol [Mass/volume] in Serum or Plasma CORTISOL BLD Lab Routine Adenoma of left adrenal gland Expected: 08/20/2023, Expires: 11/19/2023 [facility] Work Phone: Comment on above: Expected: 08/20/2023 , Expires: 11/19/2023 Start: 08-20-2023 End: 11-19-2023 DHEA-S BLD DHEA-S BLD Lab Routine Adenoma of left adrenal gland Expected: 08/20/2023, Expires: 11/19/2023 [facility] Work Phone: Comment on above: Expected: 08/20/2023 , Expires: 11/19/2023 Start: 08-20-2023 End: 11-19-2023 DIRECT RENIN PLASMA DIRECT RENIN PLASMA Lab Routine Adenoma of left adrenal gland Expected: 08/20/2023, Expires: 11/19/2023 [facility] Work Phone: Comment on above: Expected: 08/20/2023 , Expires: 11/19/2023 Start: 08-20-2023 End: 11-19-2023 METANEPHRINES, FREE PLASMA METANEPHRINES, FREE PLASMA Lab Routine Adenoma of left adrenal gland Expected: 08/20/2023, Expires: 11/19/2023 [facility] Work Phone: Comment on above: Expected: 08/20/2023 , Expires: 11/19/2023 Start: 08-05-2023 Depression Assessment Depression Ass essment [facility] Start: 07-04-2023 Urine screening for protein Diabetes: Urine Protein Screening [facility] Start: 04-05-2023 Influenza vaccination Influenza Vacc ine (#1) [facility] Start: 03-14-2023 FUV, Provider: Della Kim, Status: Pen, Time: 1:30 PM FUV, Provider: Della Kim, Status: Pen, Time: 1:30 PM [facility] 250 DO Work Phone: Start: 04-06-2022 Hemoglobin A1c measurement Diabetes: Hemoglobin A1C [facility] Start: 2021 Screening for malign ant neoplasm of cervix HPV Testing [facility] Start: 2012 Screening for malign ant neoplasm of cervix [facility] Start: 2010 Urine microalbumin profile DTaP,Tdap,Td Vaccine (1 - Tdap) [facility] Start: 2009 Hepatitis C screening Hepatitis C Sc reening [facility] Start: 2009 HIV screening HIV Screening [facility] Start: 2001 Glaucoma screening Diabetes: R etinopathy Screening [facility] Start: 02-02-1992 Covid-19 Vaccine (#1) Covid-19 Vacci ne (#1) [facility] Start: 1991 Hepatitis B Vaccine (1 of 3 - 3-dose series) Hepatitis B Vaccine (1 of 3 - 3-dose series) [facility] Aldosterone [Mass/ti me] in 24 hour Urine ALDOSTERONE 24 HR, URINE Lab Routine Adenoma of left adrenal gland Ordered: 09/06/2023 [facility] Work Phone: Comment on above: Ordered: 09/06/2023 CATECHOLAMINES FRACTIONATED, URINE FREE CATECHOLAMINES FRACTIONATED, URINE FREE Lab Routine Adenoma of left adrenal gland Ordered: 09/06/2023 [facility] Work Phone: Comment on above: Ordered: 09/06/2023 CREAT CLEAR 24 HOUR CREAT CLEAR 24 HOUR Lab Routine Adenoma of left adrenal gland Ordered: 09/06/2023 [facility] Work Phone: Comment on above: Ordered: 09/06/2023 CREATININE BLD CREATININE BLD L ab Routine Adenoma of left adrenal gland Ordered: 09/06/2023 [facility] Work Phone: Comment on above: Ordered: 09/06/2023 CREATININE CLEARANCE , UR 24HR CREATININE CLEARANCE, UR 24HR Lab Routine Adenoma of left adrenal gland Ordered: 09/06/2023 [facility] Work Phone: Comment on above: Ordered: 09/06/2023 METANEPHRINES 24H UR METANEPHRIN ES 24H UR Lab Routine Adenoma of left adrenal gland Ordered: 09/06/2023 [facility] Work Phone: Comment on above: Ordered: 09/06/2023 URINE FREE CORTISOL BY LC-MS/MS URINE FREE CORTISOL BY LC-MS/MS Lab Routine Adenoma of left adrenal gland Ordered: 09/06/2023 [facility] Work Phone: Comment on above: Ordered: 09/06/2023 [facility] Payers Date Payer Category Payer Self-pay [id number] 2016 Medicaid [id number] 1991 Unknown [id number] [id number]3 1991 Unknown [id number] 2.16.840.1.772660.3.579.2.593 1991 Unknown [id number] 2.16.840.1.281479.3.579.2.593 1991 Unknown [id number] 2.16.840.1.904647.3.579.2.593 1991 Unknown [id number] 2.16.840.1.587357.3.579.2.593 1991 Unknown [id number] 2.16.840.1.602124.3.579.2.356 1991 Unknown [id number] 2.16.840.1.615859.3.579.2.356 1991 Unknown [id number] 2.16.840.1.660232.3.579.2.1259 1991 Unknown [id number] 2.16.840.1.217898.3.579.2.1259 1991 Unknown [id number] 2.16.840.1.862118.3.579.2.1259 1991 Unknown [id number] 2.16.840.1.222100.3.579.2.1259 1991 Unknown [id number] 2.16.840.1.686104.3.579.2.1259 1991 Unknown [id number] 2.16.840.1.604860.3.579.2.1259 1991 Unknown [id number] 2.16.840.1.069933.3.579.2.1259 1991 Unknown [id number] 2.16.840.1.115223.3.579.2.1259 1991 Unknown [id number] 2.16.840.1.177758.3.579.2.1259 1991 Unknown [id number] 2.16.840.1.686126.3.579.2.1259 1991 Unknown [id number] 2.16.840.1.661687.3.579.2.1259 1991 Unknown [id number] 2.16.840.1.339474.3.579.2.1259 1991 Unknown [id number] 2.16.840.1.272077.3.579.2.1259 1959 Medicaid [id number] Unknown [employer] Unknown [facility] [id number] Unknown [id number] 2.16.840.1.338812.3.579.2.531 Unknown [id number] 2.16.840.1.792234.3.579.2.531 Unknown [id number] 2.16.840.1.691009.3.579.2.531 Social History Date Type Detail Facility Start: 01-05-2020 End: 02-21-2023 No illicit drug use No illicit drug use [facility] 250 DO Work Phone: Comment on above: quit 2021; Start: 11-09-2019 End: 08-05-2022 Tobacco smoking status [facility] Smoker (finding) [facility] Start: 1990 Sex Assigned At Female F [facility] Start: 01-05-2020 End: 02-21-2023 Sex Assigned At [facility] [employer] [employer] Other Start: 01-05-2020 Tobacco smoking status UTIS Never smoked tobacco [facility] Start: 01-05-2020 End: 02-21-2023 Tobacco use and exposure Smokeless tobacco non-user [facility] Start: 01-05-2020 Alcohol intake Current drinke r of alcohol (finding) [facility] National Score (1-100), lower number is lower risk 59 [facility] Start: 1990 Sex Assigned At Not on file [facility] Start: 08-27-2023 Gender identity Identifies as female gender (finding) [facility] Start: 02-21-2023 Tobacco smoking status NHIS Ex-smoker [facility] End: 08-05-2022 History of tobacco use Cigarette Smoker [facility] Start: 08-15-2023 Alcohol intake Ex-drinker (finding) [facility] Start: 12-23-2022 Alcohol Comment 1-2 cans of soda silvestre ly [facility] Clinical Notes 09-10-2022 to 09-06-2023 Addendum Note - Valarie Wharton - 09/06/2023 8:59 AM ESTTelephone Encounter - Valarie Wharton - 09/06/2023 8:51 AM ESTPatient InstructionsVikki Balderrama MD - 08/20/2023 1:43 PM EST Note Date & Type Note Facility 09-06-2023 Miscellaneous Notes Addended by: VALARIE WHARTON on: 09/06/2023 08:59 AM Modules accepted: Orders 09/06/2023 INTAKE PENDING.NEED 24HR URINE-LFT MSG ON VMX AND SENT MYCHART MSG. ENDOCRINE SURGERY PATIENT WORKSHEET Initial Call Date: September 06, 2023 Reason for Consult/ Referral: Adrenal Mass PATIENT DEMOGRAPHICS Name: Heidi Joy CCF#: [id number] : 1990 AGE: [age] year old Contact Numbers: Home: (home) Work: There is no work phone number on file. PATIENT PHYSICIAN INFORMATION Referring Doctor: Address: Phone: Kettle Worker: Address: Phone: PCP: Immanuel Kuhn [address] [address] PAST TREATMENT Office notes: SEE EPIC Medications: NONE THAT APPLY Pre-Visit Testing Component Latest Ref Rng & Units 08/30/2023 Protein, Total 6.3 - 8.0 g/dL 6.7 Albumin 3.9 - 4.9 g/dL 4.2 Calcium 8.5 - 10.2 mg/dL 9.4 Bilirubin, Total 0.2 - 1.3 mg/dL 1.2 Alkaline Phosphatase 34 - 123 U/L 127 (H) AST 13 - 35 U/L 14 ALT 7 - 38 U/L 16 Glucose 74 - 99 mg/dL 91 BUN 7 - 21 mg/dL 12 Creatinine 0.58 - 0.96 mg/dL 0.66 Sodium 136 - 144 mmol/L 146 (H) Potassium 3.7 - 5.1 mmol/L 2.8 (L) Chloride 97 - 105 mmol/L 109 (H) CO2 22 - 30 mmol/L 27 Anion Gap 9 - 18 mmol/L 10 eGFR >=60 mL/min/1.73m 120 Metanephrine, Plasma 12 - 67 pg/mL 28 Normetanephrine, Free Plasma 18 - 101 pg/mL 84 Direct Renin 4.2 - 52.2 pg/mL <2.1 (L) Patient Upright or Supine Upright ACTH 7.2 - 63.3 pg/mL 22.2 Aldosterone 0.0 - <35.4 ng/dL 79.8 (H) Cortisol 4.8 - 19.5 ug/dL 9.5 DHEA-S 98.8 - 340.0 ug/dL 188.1 Imaging Reports: SEE [employer] CD of Images: SEE EPIC FNA: no FNA Slides: N/A Has the patient ever had thyroid or parathyroid surgery before: No Operative Reports: NONE AVAILABLE Pathology Reports: NONE AVAILABLE documented in this encounter [facility] 08-20-2023 Note HNO ID: [id number] Author: VIKKI BALDERRAMA MD Service: ? Author Type: Physician Type: Progress Notes Filed: 08/25/2023 22:12 Note Text: Endocrinology and Metabolism [place] Initial Clinic Visit Note Virtual Visit (Audio/Visual) [...] visit. Either the patient or their legal enrollment eligibility representative has been informed of the risks and benefits of -- and alternatives to -- treatment through a remote evaluation and consents to proceed with the evaluation remotely. NAME: Heidi Joy is a 33 year old old female PCP: Immanuel Kuhn DO Requesting Provider: No referring provider defined for this encounter. My final recommendations will be communicated back to the requesting physician by way of shared medical record or letter via US mail. Chief Complaint: History of Present Illness: Ms. Heidi Joy is a 33 year old female coming [...] and nephrology. She recently met with a advertising coordinator and was recommended to undergo some work-up. [...] gland are within normal limits. ASSESSMENT/PLAN: Heidi Joy is a 33 year old female with [...] is around 5- (more content not included)... [facility] 08-20-2023 Instructions Vikki Balderrama MD - 08/20/2023 2:03 PM EST Adrenal [...] one hormone. These hormones include: Cortisol - Houston syndrome or subclinical hypercortisolism are conditions caused [...] repeat hormone testing and radiologic imaging. Source: https://www.endocrine.org/roge t-engagement/endocrine-library/a drenal-incidentaloma Adrenal mass evaluation Prevalence of adrenal tumors [...] let me know documented in this encounter [facility] 08-20-2023 History of Presen t illness Narrative Endocrinology and Metabolism [place] Initial Clinic Visit Note Virtual Visit (Audio/Visual) [...] visit. Either the patient or their legal enrollment eligibility representative has been informed of the risks and benefits of -- and alternatives to -- treatment through a remote evaluation and consents to proceed with the evaluation remotely. NAME: Heidi Joy is a 33 year old old female PCP: Immanuel Kuhn DO Requesting Provider: No referring provider defined for this encounter. My final recommendations will be communicated back to the requesting physician by way of shared medical record or letter via US mail. Chief Complaint: History of Present Illness: Ms. Heidi Joy is a 33 year old female coming [...] and nephrology. She recently met with a advertising coordinator and was recommended to undergo some work-up. [...] gland are within normal limits. ASSESSMENT/PLAN: Heidi Joy is a 33 year old female with [...] agreed to get the labs done at [facility], I provided her with the lab phone number to make an appointment. Vikki Balderrama MD [facility] Endocrinology and Metabolism [place] - [facility] [phone] Medical Decision Making: Problems: Moderate: 1+ chronic illnesses with change Data: Unique source(s) for external note(s) reviewed: 1 Unique test result(s) reviewed: 3+ Unique test(s) ordered: 3+ Medical Decision Making Level: 4 - Moderate documented in this encounter [facility] 08-19-2023 Evaluation note Encounter Date Diagnosis Assessment Notes Aug, Hypokalemia (ICD-10 - E87.6) It was a pleasure to see Mrs. Joy in our office for evaluation and management [...] of the adrenal nodule with serial imaging. [facility] Other 04-03-2023 NoteIn person visit Chief complaint: follow up for prior right frontal glioma CHIGNIK LAGOON: 32 y/o woman - she had prior [...] repeat MRI brain w/wout contrast. [facility] NoteIn person visit Chief complaint: known olidodendroglioma CHIGNIK LAGOON: 32 y/o Left handed - she does not work. 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 She had migraines and high blood pressure [...] after the MRI is completed. Ravindra Lema MDUnTriHealth [facility] HospitalChief complaint Narrative - ReportedRACARL JOY is being seen for a consultation for. POC Dr. Benson, [facility] Bariatrics- Bariatric sxMP-[facility] 250 DO Work Phone: Evaluation noteNo assessment information available [facility] Work Phone: Evaluation noteNo InformationNortAllegheny [facility] [place] Other Evaluation note* Diagnosis Adenoma of left adrenal gland- Primary Benign neoplasm of adrenal gland documented [facility] this encounter [facility]* Diagnosis Adenoma of left adrenal gland- Primary Benign neoplasm of adrenal gland documented in this encounter [facility] general Narrative - Reported* Type Description Date [...] 2 DIALBETES MYRA LITUS WITHOUT COMPLICATION, WITHOUT CARE HOME CURRENT USE OF INSULIN Medical History MICROSYTIC ANEMIA Medical History BIPOLAR AFFECTIVE DISORDER, CURR ENTLY DEPRESSED, MILD Medical History CANNABIS ABUSE Medical History MALIGNANT NEOPLASM OF BRAIN Surgical History brain tumor removed malignant 0 Surgical History DILATION AND CURETTAGE ESOPHAGO GASTRODUODENOSCOPY Surgical History INGROWN TOENAIL Surgical History ANKLE SCOPE PLANTAR FASCIOTOMY 2016 Surgical History RIGHT FRONTAL LOBEECTOMY 2019 Surgical History ENDOSCOPIC PLANTAR FASCIOTOMY 2 023 Surgical History GASTRIC BYPASS 12/2022 Hospitalization History SEE ABOVE [facility] Other History of Present illness Narrative* Patient [...] medication 9 4. Follow-up in 9 months -[facility] 250 DO Work Phone: Summary Purpose Family [...] section and content) DATE CREATED AUTHOR 01/29/2018 [facility] DATE CREATED AUTHOR AUTHOR'S ORGANIZ ATION 03/21/2020 [facility] DATE CREATED AUTHOR AUTHOR'S ORGANIZ ATION 09/12/2021 [facility] DATE CREATED AUTHOR AUTHOR'S ORGANIZ ATION 10/06/2021 [facility] dical Specialist DATE CREATED AUTHOR AUTHOR'S ORGANIZ ATION 06/07/2022 [facility] DATE CREATED AUTHOR AUTHOR'S ORGANIZ ATION 11/19/2022 [facility] DATE CREATED AUTHOR AUTHOR'S ORGANIZ ATION 12/14/2022 [facility] DATE CREATED AUTHOR AUTHOR'S ORGANIZ ATION 03/19/2023 [facility] DATE CREATED AUTHOR AUTHOR'S ORGANIZ ATION 09/05/2023 [facility] DATE CREATED AUTHOR AUTHOR'S ORGANIZ ATION 09/10/2023 [facility] dical Specialists [facility] DATE CREATED AUTHOR AUTHOR'S ORGANIZ ATION 09/11/2023 [facility] Care Teams (unrecognized sec tion and content) Team Status: Inactive Member Role Status Dates Immanuel Kuhn DO Primary Care Provider Active NETTIE Kramer Attending Provider Active Team Status: Active Member Role Status Dates Immanuel Kuhn DO Primary Care Provider Active Team Status: Inactive Member Role Status Dates Immanuel Kuhn DO Primary Care Provider Active Manasa Rhodes DPM Attending Provider Active [facility] Relationship Specialty Start Date End Date Immanuel Kuhn DO [address] [address] PCP - General Family Medicine 10/23/12 Esther Angeles MD [address] [place] [address] Referring Obstetrics 01/28/20 Татьяна Carter PA-C [address] [place] [address] Referring Physician Cellar Pumper 08/08/23 Team Status: Inactive Member Role Status Dates Zara Ralph MD Attending Provider Active Start : August 19, 2023 End: August 19, 2023 Team Status: Inactive Member Role Status Dates Immanuel Kuhn DO Primary Care Provider Active St art: August 30, 2023 End: August 30, 2023 Zara Ralph MD Attending Provider Active Start : August 30, 2023 End: August 30, 2023 [facility] Specialty Start Date End Date Immanuel Kuhn DO [address] [place] [address] PCP - General Family Medicine 10/23/12 Esther Angeles MD [address] [place] [id number] Referring Obstetrics 01/28/20 Татьяна Carter, ANTHONY [address] [place] [address] Referring Physician Cellar Pumper 08/08/23 [facility] Relationship Specialty Start Date End Date Immanuel Kuhn DO [address] [place] [address] PCP - General Family Medicine 10/23/12 Esther Angeles MD [address] [place] [address] Referring Obstetrics 01/28/20 Татьяна Carter, ANDRIY-C [address] [place] [address] Referring Physician Cellar Pumper 08/08/23 [facility] Relationship Specialty Start Date End Date Immanuel Kuhn DO [address] [place] [address] PCP - General Family Medicine 12/25/22 Татьяна Carter PA [address] [place] [address] PCP - [facility] 02/02/23 Goals (unrecognized section and content) Goals may be documented in a n alternate sectionGoals may be documented in an alternate sectionNo InformationNo InformationGoals may be documented in an alternate section REASON FOR VISIT (unrecogniz ed section and content) Reason Comments New Patient Adrenal Reason Comments Appointment Called patient and l eft a message that patient was added to 's schedule for a virtual appointment for 09/12 at 11AM per . Sent [employer] message and mailed out appointment reminder Reason Comments Consult FACE SHEET Source Comments (unrecognize d section and content) In the event this informatio n is protected by the Federal Confidentiality of Alcohol and Drug Abuse Patient Records regulations: The Federal rules restrict any use of the information to criminally investigate or prosecute any alcohol or drug abuse patient.[facility] Center[facility] the event this information is protected by the Federal Confidentiality of Alcohol and Drug Abuse Patient Records regulations: The Federal rules restrict any use of the information to criminally investigate or prosecute any alcohol or drug abuse patient.[facility] Center[facility] the event this information is protected by the Federal Confidentiality of Alcohol and Drug Abuse Patient Records regulations: The Federal rules restrict any use of the information to criminally investigate or prosecute any alcohol or drug abuse patient.[facility] FOR RECORDS PERTAINING TO PATIENTS WHO ARE [...] BE BASED ON THE PRIMARY CLINICAL RECORDS. [facility] [employer] [facility] provides no warranty or guarantee of the accuracy or completeness of information in this document.
[2023-09-12 09:19] LABS: Potassium 2.7 mmol/L (3.5-5.1)
== END 2023-09-12 08:34 | disposition home or self-care (01) ==
PROVIDERS: PCP Family Medicine
DX: K90.9 Intestinal malabsorption, unspecified (principal); Z98.84 Bariatric surgery status; R53.83 Other fatigue; E87.6 Hypokalemia
CPT/HCPCS: 36415; 84132

== ENCOUNTER 2023-10-08 09:35 | Outpatient (OUT) | payer OTHER, SELFPAY ==
--- OUTSIDE RECORDS SUMMARY | 2023-10-08 09:38 | XMS_ITS | CCD ---
Author Name Unknown Address [address] [place] [address] Organization [facility] Care Team Providers Care Logistics Planning Manager Name Role Phone Spasic, Carmelo Unavailable Unavailable Zo Carmelo Unavailable Unavailable IMMANUEL KUHN Unavailable Unavailable Immanuel Kuhn Unavailable Unavailable Unavailable DO Immanuel Kuhn Primary Care Provider NETTIE Prakash Attending Provider REJI Rhodes Attending Provider RAVINDRA LEMA Referring Unavailable RAVINDRA LEMA Attending [...] Unavailable Immanuel Kuhn DO Primary Care Provider [phone] Esther Angeles MD Unavailable Татьяна Carter PA-C Unavailable DO Immanuel Kuhn Primary Care Provider MD Zara Ralph Attending Provider Manasa Dunaway Attending Unavailable Gume, Manasa Admitting Unavailable Immanuel Kuhn Primary Care Unavailable Tiarra Prakash Attending Unavailable Tiarra Prakash Admitting Unavailable Immanuel Kuhn Primary Care Unavailable Immanuel Kuhn Primary Care Unavailable Zara Ralph Attending Unavailable Zara Ralph Admitting Unavailable Immanuel Kuhn DO Primary Care Provider Татьяна Angeles Unavailable VEERAMACHANENI, RAVALI Referring Unavailab IMMANUEL Garcia Primary Care Unavailable VEKHAIENI, RAVALI Referring Unavailab IMMANUEL Garcia Primary Care Unavailable VEMARGIE, VIKKI Attending Unavailab IMMANUEL Garcia Primary Care Unavailable IMMANUEL KUHN Primary Care Unavailable VEERAMACHANENI, RAVALI Referring Unavailab MARIO Torres Attending Unavailable IMMANUEL KUHN Primary Care Unavailable IMMANUEL KUHN Primary Care Unavailable JUAN BARON Attending Unavailable GUME, MANASA H Referring Unavailable ТАТЬЯНА CARTER Attending Unavailable IMMANUEL KUHN Referring Unavailable SHEILA BRAUN Attending Unavailable DUNAWAY, MANASA H Attending Unavailable BRAUN, SHEILA L Attending Unavailable DUNAWAY, MANASA H Referring Unavailable BRAUN, SHEILA Rivero Attending Unavailable GUME, MANASA H Attending Unavailable MISSY SHEILA Josefa Attending Unavailable BARBARA DIXON Attending Unavailable DUNAWAY, MAANSA H Attending Unavailable SHEILA BRAUN Attending Unavailable IMMANUEL KUHN Referring Unavailable ALEX NAIK Attending Unavailable DUNAWAY, MANASA H Referring Unavailable JUAN BARON Attending Unavailable DUNAWAY, MANASA H Referring Unavailable JHONY GARCIA Attending Unavailable DUNAWAY, MANASA H Referring Unavailable JUAN BARON Attending Unavailable DUNAWAY, MANASA H Referring Unavailable Allergies Allergy Classification Reported Allergen(s) Allergy Type Date of Onset Reaction(s) Facility (1 source) No Known Medication Allergies; Translations: [No Known Medication Allergies] Propensity to adverse reactions to drug (disorder) [facility] Repository Medications Current Medications Medication Drug Class(es) Dates Sig (Normalized) Sig (Original) amLODIPine 10 mg oral tablet (14 sources) Dihydropyridine Calcium Channel Clover Start: 09-29-2019 End: 08-20-2023 take 1 tablet by mouth once daily amLODIPine (Norvasc) 10 MG tablet Indications: Primary hypertension (CMS/HCC) TAKE 1 TABLET BY MOUTH EVERY DAY FOR 90 DAYS 90 tablet 2 08/15/2023 Active Comment on above: Take 10 mg by mouth once daily. benzoyl peroxide 50 mg/ml topical solution (11 sources) Start: 05-23-2023 Benzoyl Peroxide Wash 5 % external wash Indications: Hidradenitis suppurativa of right axilla WASH AFFECTED AREAS EVERY DAY *ALTERNATE WITH HIBICLENS* 148 g 1 05/23/2023 Active Benzoyl Peroxide Wash 5 % 1 application Externally Once a day Active biotin 1 mg oral capsule (8 sources) take 1 capsule by mouth in the morning biotin 1 MG capsule Take 1 capsule by mouth in the morning. 0 Active brexpiprazole 1 mg oral tablet (15 sources) Atypical Antipsychotic Start: 06-18-20 End: 08-18-19 take 1 tablet by mouth once daily Brexpiprazole (Rexulti) 1 MG tablet Indications: Bipolar affective disorder, currently depressed, mild (CMS/HCC) Take 1 mg by mouth 1 (one) time each day at the same time 90 tablet 3 08/19/2023 08/18/2024 Active Comment on above: TAKE 1 TABLET BY ROSITA ONCE DAILY AT THE SAME TIME busPIRone hydrochloride 10 mg oral tablet (15 sources) Start: 03-17-20 take 1 tablet by mouth at bedtime busPIRone (Buspar) 10 MG tablet Indications: LUISITO (generalized anxiety disorder) (CMS/HCC) TAKE 1 TABLET (10 MG) BY MOUTH IN THE MORNING AND BEFORE BEDTIME 60 tablet 11 03/17/2023 Active Comment on above: TAKE 1 TABLET (10 MG ) BY MOUTH IN THE MORNING AND BEFORE BEDTIME Calcium Carbonate+Vitamin D (3 sources) Calcium Carbonate+Vitamin D Active calcium carbonate-vitamin D 600-400 MG-UNIT tablet (8 sources) take 1 tablet by mouth once daily calcium carbonate-vitamin D 600-400 MG-UNIT tablet Take 1 tablet by mouth 1 (one) time each day at the same time 0 Active carvedilol 25 mg oral tablet (16 sources) alpha-Adrenergic Clover, beta-Adrenergic Clover Start: 08-18-19 22 take 1 tablet by mouth twice daily carvedilol (Coreg) 25 MG tablet Indications: Primary hypertension (CMS/HCC) TAKE 1 TABLET BY MOUTH TWICE A DAY 180 tablet 3 08/15/2023 Active Comment on above: Take 1 tablet by rosita th two times a day. cefuroxime 500 mg oral tablet (3 sources) Cephalosporin Antibacterial Start: 09-13-19 24 End: 09-23-19 24 take 1 tablet by mouth in the morning cefuroxime (Ceftin) 500 MG tablet Indications: Acute bronchitis, unspecified organism Take 1 tablet (500 mg) by mouth in the morning and 1 tablet (500 mg) before bedtime. Do all this for 10 days. 20 tablet 0 09/13/2023 09/23/2023 Active chlorhexidine gluconate 40 mg/ml medicated liquid soap (8 sources) Start: 05-23-20 23 Hibiclens 4 % external liquid Indications: Hidradenitis suppurativa of right axilla Apply topically Daily as needed for wound care. 236 mL 1 05/23/2023 Active clonazePAM 0.5 mg oral tablet (7 sources) Benzodiazepine Start: 07-12-20 23 take 1 tablet by mouth every twelve hours for anxiety and anxiety clonazePAM (KlonoPIN) 0.5 MG tablet Indications: Anxiety Take 1 tablet (0.5 mg) by mouth every 12 (twelve) hours for 14 days 28 tablet 0 07/12/2023 Active ethinyl estradiol 0.035 mg / norethindrone 0.75 mg oral tablet (9 sources) Estrogen take 1 tablet by mouth in the morning norethindrone-ethiny l estradiol (Necon ) 0.5/0.75/1-35 MG-MCG tablet Take 1 tablet by mouth in the morning. 0 Active End: 08-20-2023 take 1 tablet by mouth once daily, then take [id number] tablet by mouth once Norethindrone-Eth Estradiol (ALYACEN , 28,) 1-35 mg-mcg per tablet Take 1 tablet by mouth once daily. 0 08/20/2023 Discontinued Comment on above: Take 1 tablet by rosita th once daily. gabapentin 400 mg oral capsule (17 sources) Anti-epileptic Agent Start: 05-20-20 gabapentin (Neurontin) 400 MG capsule 1 capsule 0 06/15/2022 Active Comment on above: 1 capsule. hydrALAZINE hydrochloride 100 mg oral tablet (17 sources) Arteriolar Vasodilator Start: 07-04-20 take 1 [...] tablet by rosita two times a day. ketoconazole 20 mg/ml topical cream (8 sources) Azole Antifungal Start: ketoconazole (NIZOral) 2 % cream Apply 1 application topically in the morning. 0 07/13/2022 Active lamoTRIgine 150 mg oral tablet (17 sources) Mood Stabilizer, Anti-epileptic Agent Start: End: [...] hrs lurasidone hydrochloride 60 mg oral tablet (15 sources) Atypical Antipsychotic Start: 022 End: 024 take 1 tablet by mouth at mealtime lurasidone (Latuda) 60 MG tablet Indications: Bipolar disorder in partial remission, most recent episode unspecified type (CMS/HCC) TAKE 1 TABLET (60 MG) BY MOUTH IN THE MORNING. TAKE WITH MEALS. 90 tablet 0 08/29/2023 11/27/2023 Active Comment on above: Take 60 mg by mouth. magnesium oxide 400 mg oral capsule (11 sources) Start: 023 take 1 capsule by mouth in the morning Magnesium Oxide -Mg Supplement (Magnesium Extra Strength) 400 MG capsule Indications: Hypomagnesemia Take 1 capsule by mouth in the morning. 30 capsule 5 07/12/2023 Active take 1 tablet by rosita every twenty-four hours Magnesium Oxide 400 MG 1 TABLET Orally Once a day Active Multiple Vitamin (Multi Vitamin) tablet (8 sources) Multiple Vitamin (Multi Vitamin) tablet 1 (one) time each day at the same time. 0 Active Multivitamin preparation (3 sources) take 1 tablet by mouth once daily Multi Vitamin - 1 tablet Orally Once a day Active ondansetron 4 mg oral tablet (8 sources) Serotonin-3 Receptor Antagonist Start: 08-19-19 24 take 1 tablet by mouth every eight hours as needed for nausea and vomiting and nausea and nausea ondansetron (Zofran) 4 MG tablet Indications: Nausea Take 1 tablet (4 mg) by mouth every 8 (eight) hours if needed for nausea or vomiting 60 tablet 1 08/19/2023 Active microencapsulated potassium chloride 20 meq extended release oral tablet (17 sources) Start: 04-27-20 22 take 1 tablet by mouth in the [...] 27-Apr-2022 DO Start : 27-Apr-2022 Active take 4 tablets by mo [facility] every twelve hours Potassium Chloride ER 10 MEQ 4 capsules with food Orally Twice a day Active take 1 tablet by rosita th [...] 2017 11:00pm spironolactone 50 mg oral tablet (8 sources) Aldosterone Antagonist Start: 05-23-20 23 take 1 tablet by mouth once daily spironolactone (Aldactone) 50 MG tablet Indications: Hypokalemia TAKE 1 TABLET BY MOUTH EVERY DAY FOR 90 DAYS 90 tablet 1 05/23/2023 Active SUMAtriptan 100 mg oral tablet (15 sources) Serotonin-1b and Serotonin-1d Receptor Agonist Start: 08-12-19 SUMAtriptan (Imitrex) 100 MG tablet Indications: Migraine with aura and without status migrainosus, not intractable (CMS/HCC) TAKE 1 TAB AT MIGRAINE ONSET, MAY REPEAT IN 2 HOURS NEEDED, MAX 2 TABS IN 24 HOURS 9 tablet 0 08/12/2023 Active Comment on above: TAKE 1 TAB AT MIGRAI NE ONSET, MAY REPEAT IN 2 HOURS NEEDED, MAX 2 TABS IN 24 HOURS zolpidem tartrate 10 mg oral tablet (15 sources) gamma-Aminobutyric Acid-ergic Agonist Start: 08-19-19 End: 09-18-19 24 zolpidem (Ambien) 10 MG tablet Indications: Primary [...] day ferrous sulfate 134 mg oral tablet (4 sources) Ferrous Sulfate 27 mg iron tab [...] on above: Take 1 capsule by mo [facility] twice daily. Natazia 3/2-2/2-3/1 MG Oral Tablet (2 sources) Start: 09-27-2021 take 1 tablet by mouth once daily Natazia 3/2-2/2-3/1 MG Oral Tablet TAKE 1 TABLET BY MOUTH EVERY DAY CONTINUOUSLY Quantity: 28 Refills: 0 Ordered: 29-May-2022 DO Start : 27-Sep-2021 Active propranolol hydrochloride 40 mg oral tablet (1 source) beta-Adrenergic Cloevr End: 08-20-2023 take 40 mg by mouth [...] Take 25 mg by mouth once daily. terazosin 2 mg oral capsule (1 source) alpha-Adrenergic Clover Start: 11-02-2019 End: 08-20-2023 take 1 capsule by mouth once daily at bedtime terazosin (HYTRIN) 2 mg capsule Take 2 mg by mouth daily at bedtime. 0 11/02/2019 08/20/2023 Discontinued Comment on above: Take 2 mg by mouth d aily at bedtime. Problems Active Problems Problem Classification Problem Date Documented Da te Episodic/Chronic Acute bronchitis (2 sources) Acute bronchitis; Translations: [Acute bronchitis, unspecified] 09-13-2023 Episodic Administrative/social admission (4 sources) Encounter for blood-alcohol and blood-drug test; Translations: [ENC BLOOD-ALCOHOL BLOOD-DRUG TEST] Onset: 3 Episodic Anxiety disorders (17 sources) Generalized anxiety disorder; Translations: [Generalized anxiety disorder] Onset: 7 12-06-2022 Chronic Conduction disorders (8 sources) First degree atrioventricular block; Translations: [Atrioventricular block, first degree] Onset: 3 02-21-2023 Chronic Diabetes mellitus without complication (16 sources) Diabetes mellitus; Translations: [Type 2 diabetes mellitus without complications] Onset: 3 02-21-2023 Chronic Esophageal disorders (8 sources) Gastroesophageal reflux disease; Translations: [Gastro-esophageal reflux disease without esophagitis] Onset: 9 02-21-2023 Chronic Essential hypertension (20 sources) Benign essential hypertension; Translations: [Benign essential hypertension] Onset: 8 Resolved: 3 05-03-2017 Chronic Fluid and electrolyte disorders (9 sources) Hypokalemia; Translations: [Alkalosis] Onset: 3 Episodic Headache; including migraine (16 sources) Migraine with aura; Translations: [Migraine with aura, not intractable, without status migrainosus] Onset: 3 Resolved: 3 02-21-2023 Chronic Joint disorders and dislocations; trauma-related (8 sources) Patellofemoral syndrome of left knee; Translations: [Patellofemoral disorders, left knee] Onset: 8 02-21-2023 Chronic Menstrual disorders (20 sources) Dysmenorrhea, unspecified; Translations: [Dysmenorrhea] Onset: 7 Resolved: 3 02-21-2023 Chronic Miscellaneous mental health disorders (16 sources) Insomnia disorder related to another mental disorder; Translations: [Insomnia due to other mental disorder] Onset: 8 02-21-2023 Chronic Mood disorders (20 sources) Bipolar affective disorder, currently depressed, mild; Translations: [Bipolar disorder, current episode depressed, mild] Onset: 8 12-06-2022 Chronic Nausea and vomiting (3 sources) Nausea; Translations: [Nausea] 05-03-2017 Episodic Osteoarthritis (8 sources) Osteoarthritis of left knee joint; Translations: [Unilateral primary osteoarthritis, left knee] Onset: 3 02-21-2023 Chronic Other and unspecified benign neoplasm (6 sources) Adenoma of left adrenal gland; Translations: [Benign neoplasm of left adrenal gland] Onset: 4 08-20-2023 Episodic Other and unspecified benign neoplasm (1 source) Benign neoplasm of left adrenal gland; Translations: [Adenoma of left adrenal gland] Onset: 4 Episodic Other endocrine disorders (10 sources) Polycystic ovary syndrome; Translations: [Polycystic ovaries] Onset: 3 02-21-2023 Chronic Other endocrine disorders (4 sources) Polycystic ovarian syndrome; Translations: [POLYCYSTIC OVARIAN SYNDROME] Onset: 2 Chronic Other endocrine disorders (5 sources) Disorder of adrenal gland, unspecified; 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)] Chronic Other endocrine disorders (4 sources) Primary aldosteronism; 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] Onset: 4 09-04-2023 Chronic Other endocrine disorders (8 sources) Adrenal mass; Translations: [Other specified disorders of adrenal gland] Onset: 9 02-21-2023 Chronic Other gastrointestinal disorders (11 sources) Irritable bowel syndrome with diarrhea; Translations: [Irritable bowel syndrome with diarrhea] Onset: 9 02-21-2023 Chronic Other gastrointestinal disorders (3 sources) Diarrhea; Translations: [Diarrhea, unspecified] 05-03-2017 Episodic Other nervous system disorders (8 sources) Neuropathy; Translations: [Polyneuropathy, unspecified] Onset: 3 02-21-2023 [...] Chronic Other nutritional; endocrine; and metabolic disorders (8 sources) Morbid obesity; Translations: [Morbid (severe) obesity due to excess calories] Onset: 8 02-21-2023 Chronic Other upper respiratory disease (8 sources) Seasonal allergic rhinitis; Translations: [Other seasonal allergic rhinitis] Onset: 1 02-21-2023 Chronic Other upper respiratory infections (8 sources) Sinusitis; Translations: [Chronic sinusitis, unspecified] Onset: 8 02-21-2023 Chronic Residual codes; unclassified (1 source) Tobacco use; Translations: [TOBACCO USE] Onset: 3 Episodic Screening and history of mental health and substance abuse codes (2 sources) Ex-smoker; Translations: [Personal history of tobacco use] Episodic Comment on above: quit 2021; Substance-related disorders (8 sources) Cannabis abuse; Translations: [Cannabis abuse, uncomplicated] Onset: 9 02-21-2023 Chronic Unclassified (2 sources) Consult; Translations: [Consult] Onset: 3 Unclassified (1 source) CONTACT W/AND (SUSP) EXPOS COVID-19; Translations: [CONTACT W/AND (SUSP) EXPOS COVID-19] Onset: 3 Past or Other Problems Problem Classification Problem Date Documented Date Episodic/Chronic Cancer of brain and nervous system (20 sources) Malignant neoplasm of brain, unspecified; Translations: [Glioma] Onset: 06-17-2018 Resolved: 02-21-2023 Chronic Deficiency and other anemia (8 sources) Microcytic anemia; Translations: [Iron deficiency anemia, unspecified] Onset: 11-05-2019 02-21-2023 Episodic Headache; including migraine (8 sources) Generalized headache; Translations: [Generalized headache] Onset: 07-15-2018 02-21-2023 Episodic Nutritional deficiencies (12 sources) Iron deficiency; Translations: [Iron deficiency] Onset: 02-02-2020 02-02-2020 Episodic Other aftercare (1 source) Other retirement (current) drug therapy; 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] Onset: 09-10-2022 Episodic Other connective tissue disease (1 source) Plantar fascial fibromatosis; Translations: [Plantar fascial fibromatosis] Onset: 09-13-2022 Episodic Other connective tissue disease (8 sources) Plantar fasciitis; Translations: [Plantar fascial fibromatosis] Onset: 02-11-2017 02-21-2023 Episodic Other ear and sense organ disorders (8 sources) Otalgia, right ear; Translations: [Otalgia, unspecified] Onset: 11-04-2018 Resolved: 02-21-2023 02-21-2023 Episodic Other nutritional; endocrine; and metabolic disorders (8 sources) Excessive eating - polyphagia; Translations: [Polyphagia] Onset: 11-08-2020 Resolved: 02-21-2023 02-21-2023 Episodic Other screening for suspected conditions (not mental disorders or infectious disease) (8 sources) Electrocardiogram abnormal; Translations: [Abnormal electrocardiogram [ECG] [EKG]] Onset: 07-31-2022 Resolved: 02-21-2023 02-21-2023 Episodic Other skin disorders (12 sources) Axillary hidradenitis suppurativa; Translations: [Hidradenitis suppurativa] Onset: 10-27-2012 10-27-2012 Episodic Other skin disorders (12 sources) Comedone; Translations: [Acne vulgaris] Onset: 10-27-2012 Resolved: 02-21-2023 10-27-2012 Episodic Other skin disorders (8 sources) Alopecia totalis; Translations: [Alopecia (capitis) totalis] Onset: 06-18-2017 Resolved: 02-21-2023 02-21-2023 Episodic Other skin disorders (8 sources) Ingrowing nail; Translations: [Ingrowing nail] Onset: 08-22-2021 Resolved: 02-21-2023 02-21-2023 Episodic Residual codes; unclassified (8 sources) Insomnia; Translations: [Insomnia, unspecified] Onset: 12-11-2019 Resolved: 02-21-2023 02-21-2023 Episodic Thyroid disorders (8 sources) Goiter; Translations: [Iodine-deficiency related diffuse (endemic) goiter] Onset: 01-14-2019 Resolved: 02-21-2023 02-21-2023 Chronic Results Test Name Value Interpretation Reference Range Facility ALL POTASSIUMon 09-12-2023 Interpretation and review of laboratory results Abnormal [facility] Potassium [Moles/Vol] 2.7 mmol/L Critically low 3.5 - 5.1 mmol/L [facility] Comment on above: [facility]-m[facility]on 2023 Aldosterone (24H U) [Mass/Time] 63.6 ug/24hr High 3.0-<28.1 [facility] Comment on above: Order Comment: Speci men Type: BLOOD SPECIMEN Ordering Facility: [facility] Address: [address] [place] [address] Performed By: #### 2 141-0 #### [facility] CLIA [id number] [address] [place] [address] [place] CATECHOLAMINES FRACTIONATED, URINE FREEon 09-10-2023 CATECHOLAMINES INTERPRETATION See Note Normal [facility] Comment on above: Order Comment: Speci men Type: BLOOD SPECIMEN Ordering Facility: [facility] Address: [address] [place] [address] Result Comment: TEST INFORMATION: Catecholamines Fractionated, Urine Free Smaller increases in catecholamine concentrations (less than two times the upper limit) usually are the result of physiological stimuli, drugs, or improper specimen collection. Significant elevation of one or more catecholamines (three or more times the upper reference limit) is associated with an increased probability of a neuroendocrine tumor. Access complete set of age- and/or gender-specific reference intervals for this test in the [facility] Test Directory ([employer]). This test was developed and its performance characteristics determined by [facility]. It has not been cleared or approved by the [place] Food and Drug Administration. This test was performed in a CLIA certified laboratory and is intended for clinical purposes. Performed By: #### 2 141-0 #### [facility] CLIA [id number] [address] [place] [address] [place] DOPAMINE, UR 24HR 422 ug/d Normal 71-485 [facility] Comment on above: Order Comment: Speci men Type: BLOOD SPECIMEN Ordering Facility: [facility] Address: [address] [place] [address] Result Comment: REFE RENCE INTERVAL: Dopamine, Urine - ug/d Access complete set of age- and/or gender-specific reference intervals for this test in the [facility] Test Directory ([employer]). Performed By: #### 2 141-0 #### [facility] CLIA [id number] [address] [place] [address] [place] DOPAMINE, UR PER VOL 201 ug/L Normal [facility] Comment on above: Order Comment: Speci men Type: BLOOD SPECIMEN Ordering Facility: [facility] Address: [address] [place] [address] Performed By: #### 2 141-0 #### [facility] CLIA [id number] [address] [place] [address] [place] DOPAMINE, UR RATIO TO HUMAN RESOURCE ADVISER 372 ug/g HUMAN RESOURCE ADVISER High 0-250 [facility] Comment on above: Order Comment: Speci men Type: BLOOD SPECIMEN Ordering Facility: [facility] Address: [address] [place] [address] Performed By: #### 2 141-0 #### [facility] CLIA [id number] [address] [place] [address] [place] EPINEPHRINE, UR 24HR 4 ug/d Normal 1-14 [facility] Comment on above: Order Comment: Speci men Type: BLOOD SPECIMEN Ordering Facility: [facility] Address: [address] [place] [address] Result Comment: REFE RENCE INTERVAL: Epinephrine, Urine - ug/d Access complete set of age- and/or gender-specific reference intervals for this test in the [facility] Test Directory ([employer]). Performed By: #### 2 141-0 #### [facility] CLIA [id number] [address] [place] [address] [place] EPINEPHRINE, UR PER VOL 2 ug/L Normal [facility] Comment on above: Order Comment: Speci men Type: BLOOD SPECIMEN Ordering Facility: [facility] Address: [address] [place] [address] Performed By: #### 2 141-0 #### [facility] CLIA [id number] [address] [id number] [address] [place] EPINEPHRINE, UR RATIO TO HUMAN RESOURCE ADVISER 4 ug/g HUMAN RESOURCE ADVISER Normal 0-20 [facility] Comment on above: Order Comment: Speci men Type: BLOOD SPECIMEN Ordering Facility: [facility] Address: [address] [place] [address] Performed By: #### 2 141-0 #### [facility] CLIA [id number] [address] [place] [address] [place] NOREPINEPHRINE, UR 24HR 21 ug/d Normal 14-120 [facility] Comment on above: Order Comment: Speci men Type: BLOOD SPECIMEN Ordering Facility: [facility] Address: [address] [place] [address] Result Comment: REFE RENCE INTERVAL: Norepinephrine, Urine - ug/d Access complete set of age- and/or gender-specific reference intervals for this test in the [facility] Test Directory ([employer]). Performed By: #### 2 141-0 #### [facility] CLIA [id number] [address] [place] [address] [place] NOREPINEPHRINE, UR PER VOL 10 ug/L Normal [facility] Comment on above: Order Comment: Speci men Type: BLOOD SPECIMEN Ordering Facility: [facility] Address: [address] [place] [address] Performed By: #### 2 141-0 #### [facility] CLIA [id number] [address] [place] [address] [place] NOREPINEPHRINE, UR RATIO TO HUMAN RESOURCE ADVISER 19 ug/g HUMAN RESOURCE ADVISER Normal 0-45 [facility] Comment on above: Order Comment: Speci men Type: BLOOD SPECIMEN Ordering Facility: [facility] Address: [address] [place] [address] Performed By: #### 2 141-0 #### [facility] CLIA [id number] [address] [place] [address] [place] CREATININE BLDon 09-10-2023 Creatinine [Mass/Vol] 0.90 mg/dL Normal 0.58-0.96 [facility] Comment on above: Order Comment: Joselyni men Type: BLOOD SPECIMEN Ordering Facility: [facility] Address: [address] [place] [address] Performed By: #### 2 141-0 #### [facility] CLIA [id number] [address] [place] [address] [place] Creatinine and Glomerular filtration rate.predicted panel (S/P/Bld) 87 mL/min/1.73m??? Normal >=60 [facility] Comment on above: Order Comment: Joselyni men Type: BLOOD SPECIMEN Ordering Facility: [facility] Address: [address] [place] [address] Result Comment: Rachel mated Glomerular Filtration Rate [...] reflect actual GFR. Performed By: #### 2 141-0 #### [facility] CLIA [id number] [address] [place] [address] [place] CREATININE CLEARANCE, UR 24H Diaz 09-10-2023 Creatinine (24H U) [Mass/Time] 1.100 g/24 hr Normal 0.800-1.80 0 [facility] Comment on above: Order Comment: Peter men Type: URINE SPECIMEN Ordering Facility: [facility] Address: [address] [place] [address] Performed By: #### L [id number] #### [facility] CLIA [id number] [address] [place] [address] [place] [facility] CLIA [id number] [address] [place] [address] Creatinine renal clearance (24H U+S/P) [Vol/Time] 65.9 mL/min Low 75.0-115.0 [facility] Comment on above: Order Comment: Speci men Type: URINE SPECIMEN Ordering Facility: [facility] Address: [address] [place] [address] Result Comment: Resu lt corrected for standard body surface area. Performed By: #### L [id number] #### [facility] CLIA [id number] [address] [place] [address] LAB CLIA [id number] [address] [place] [address] PERIOD (HRS) 24 hr Normal [facility] Comment on above: Order Comment: Speci men Type: URINE SPECIMEN Ordering Facility: [facility] Address: [address] [place] [address] Performed By: #### L [id number] #### [facility] CLIA [id number] [address] [place] [address] LAB CLIA [id number] [address] [place] [address] Order Comment: Speci men Type: BLOOD SPECIMEN Ordering Facility: [facility] Address: [address] [place] [address] Performed By: #### 2 141-0 #### [facility] CLIA [id number] [address] [place] [address] Specimen volume (24H U) 2.1 L Normal [facility] Comment on above: Order Comment: Speci men Type: URINE SPECIMEN Ordering Facility: [facility] Address: [address] [place] [address] Performed By: #### L [id number] #### [facility] CLIA [id number] [address] [place] [address] LAB CLIA [id number] [address] [place] [address] Order Comment: Speci men Type: BLOOD SPECIMEN Ordering Facility: [facility] Address: [address] [place] [address] Performed By: #### 2 141-0 #### [facility] CLIA [id number] [address] [place] [address] [place] METANEPHRINES 24H URon 09-10 Metanephrines (24H U) [Mass/Time] 246 ug/24 hr Normal 140-785 [facility] Comment on above: Order Comment: Speci men Type: BLOOD SPECIMEN Ordering Facility: [facility] Address: [address] [place] [address] Result Comment: Test performed at [facility] [place], [place] Disregard [place] reference range. Smaller increases in metanephrine and/or normetanephrine concentrations (less than two times the upper reference limit) usually are the result of physiological stimuli, drugs, or improper specimen collections. Essential hypertension is often associated with slight elevations (metanephrine less than 400 ug/d and normetanephrine less than 900 ug/d). Elevated concentrations may be due to intense physical activity, life-threatening illness, and drug interference. Significant elevation of one of both metanephrines (three or more times the upper reference limit) is associated with an increased probability of a neuroendocrine tumor. Access complete set of age- and/or gender-specific reference intervals for this test in the [facility] Test Directory ([employer]). This test was developed and its performance characteristics determined by the [facility]. It has not been cleared or approved by the US Food and Drug Administration. This test was performed in a CLIA certified laboratory and is intended for clinical purposes. Performed By: #### 2 141-0 #### [facility] CLIA [id number] [address] [place] [address] [place] NORMETANEPHRINES, UR 141 ug/24 hr Normal 88-444 [facility] Comment on above: Order Comment: Speci men Type: BLOOD SPECIMEN Ordering Facility: [facility] Address: [address] [place] [address] Performed By: #### 2 141-0 #### [facility] CLIA [id number] [address] [place] [address] [place] URINE FREE CORTISOL BY LC-MS /MSon 09-10-2023 CORTISOL UG/G HUMAN RESOURCE ADVISER, UR (UFRCRT) 16.94 ug/g HUMAN RESOURCE ADVISER Normal [facility] Comment on above: Order Comment: Speci men Type: TIMED URINE SPECIMEN Ordering Facility: [facility] Address: [address] [place] [address] Result Comment: Refe rence Interval: Cortisol ug/g grocery checker Female Prepubertal: Less than 25 ug/g grocery checker 18 years and older: Less than 24 ug/g grocery checker : Less than 59 ug/g grocery checker Male Prepubertal: Less than 25 ug/g grocery checker 18 years and older: Less than 32 ug/g grocery checker Performed By: #### U FRCRT #### [facility] CLIA [id number] [address] [place] [address] CREATININE UR, PER 24H 1134 mg/d Normal 700-1600 [facility] Comment on above: Order Comment: Speci men Type: TIMED URINE SPECIMEN Ordering Facility: [facility] Address: [address] [place] [address] Performed By: #### U FRCRT #### [facility] CLIA [id number] [address] [place] [address] Order Comment: Speci men Type: BLOOD SPECIMEN Ordering Facility: [facility] Address: [address] [place] [address] Result Comment: Perf ormed By: [facility] [address] [place] [address] [employer] Administrator: Adis Casillas MD, PhD CLIA Number: [id number] Performed By: #### 2 141-0 #### [facility] CLIA [id number] [address] [place], [place] [address]K [id number] [place] [address] [place] CREATININE UR, PER VOLUME 54 mg/dL Normal [facility] Comment on above: Order Comment: Speci men Type: TIMED URINE SPECIMEN Ordering Facility: [facility] Address: [address] [place] [address] Performed By: #### U FRCRT #### [facility] CLIA [id number] [address] [place] [id number] Order Comment: Speci men Type: BLOOD SPECIMEN Ordering Facility: [facility] Address: [address] [place] [address] Performed By: #### 2 141-0 #### [facility] CLIA [id number] [address] [place] [address] [place] FREE CORTISOL UG/DAY, URINE 19.2 ug/d Normal <=45.0 [facility] Comment on above: Order Comment: Speci men Type: TIMED URINE SPECIMEN Ordering Facility: [facility] Address: [address] [place] [address] Performed By: #### U FRCRT #### [facility] CLIA [id number] [address] [place] [address] FREE CORTISOL UG/L, URINE 9.15 ug/L Normal [facility] Comment on above: Order Comment: Speci men Type: TIMED URINE SPECIMEN Ordering Facility: [facility] Address: [address] [place] [address] Performed By: #### U FRCRT #### [facility] CLIA [id number] [address] [place] [address] HOURS COLLECTED 24 hr Normal [facility] Comment on above: Order Comment: Speci men Type: TIMED URINE SPECIMEN Ordering Facility: [facility] Address: [address] [place] [address] Result Comment: Per 24h calculations are provided to aid interpretation for collections with a duration of 24 hours and an average daily urine volume. For specimens with notable deviations in collection time or volume, ratios of analytes to a corresponding urine creatinine concentration may assist in result interpretation. Performed By: #### U FRCRT #### [facility] CLIA [id number] [address] [place] [address] Order Comment: Speci men Type: BLOOD SPECIMEN Ordering Facility: [facility] Address: [address] [place] [address] Performed By: #### 2 141-0 #### [facility] CLIA [id number] [address] [place] [address] [place] TOTAL VOLUME 2100 mL Normal [facility] Comment on above: Order Comment: Speci men Type: TIMED URINE SPECIMEN Ordering Facility: [facility] Address: [address] [place] [address] Performed By: #### U FRCRT #### [facility] CLIA [id number] [address] [place] [address] Order Comment: Speci men Type: BLOOD SPECIMEN Ordering Facility: [facility] Address: [address] [place] [address] Performed By: #### 2 141-0 #### [facility] CLIA [id number] [address] [place] [address] [id number] [place] [address] [place] UR MER FREE INTERP See Note Normal [facility] Comment on above: Order Comment: Speci men Type: TIMED URINE SPECIMEN Ordering Facility: [facility] Address: [address] [place] [address] Result Comment: INTE RPRETIVE INFORMATION: Cortisol Urine Free by LC-MS/MS Access complete set of age- and/or gender-specific reference intervals for this test in the [facility] Test Directory ([employer]). This test was developed and its performance characteristics determined by [facility]. It has not been cleared or approved by the US Food and Drug Administration. This test was performed in a CLIA certified laboratory and is intended for clinical purposes. Performed By: [facility] [address] [place] [address] [employer] Administrator: Adis Casillas MD, PhD CLIA Number: [id number] Performed By: #### U FRCRT #### [facility] CLIA [id number] [address] [place] [id number] [facility] CORTIS P DEX SERPL-MCNCo n 09-06-2023 [facility] CORTIS P DEX SERPL-MCNC 0.9 ug/dL [facility]/dL [facility] Comment on above: After overnight 1 mg dexamethasone, an webfocus developer cortisol of <1.8 ug/dL may indicate an adequate cortisol suppression. This result should be interpreted within the clinical context and other test results. Samra et al. Evidence for the Low Dose Dexamethasone Suppression Test to Screen for Mountain's Syndrome - Recommendations for a Protocol for Biochemistry Laboratories. 1997 [employer]bil. Clin. Biochem. 34 222-229. Specimen Type: BLOOD SPECIMEN Ordering Facility: [facility] Address: [address] [place] [address] Original Ordering Provider: [facility] Corwin 09-06-2023 KYLE Telephone (SHANE) -- BENITAHEIDI ([id number]) 1990 F Date Time Provider Department 09/06/23 AMRIO SANTIAGO During your visit today, we recorded the following information about you: Valarie Wharton 09/06/2023 8:57 AM Signed 09/06/2023 INTAKE PENDING.NEED 24HR URINE-LFT MSG ON VMX AND SENT MYCHART MSG. ENDOCRINE SURGERY PATIENT WORKSHEET Initial Call Date: September 06, 2023 Reason for Consult/ Referral: Adrenal Mass PATIENT DEMOGRAPHICS Name: Heidi Mirza Benita CCF#: [id number] : 1990 AGE: [age] year old Contact Numbers: Home: (home) Work: There is no work phone number on file. PATIENT PHYSICIAN INFORMATION Referring Doctor: Address: Phone: Rubber Stamp Dies Inspector: Address: Phone: PCP: Immanuel Kuhn [address] [address] PAST TREATMENT Office notes: SEE EPIC Medications: [...] - 340.0 ug/dL 188.1 Imaging Reports: SEE [facility] CD of Images: SEE EPIC FNA: no [...] Order(s):CATECHOLAMINES FRACTIONATED, URINE FREE [SQURCAT2] Order #: [id number]. #:[id number] ALDOSTERONE 24 HR, URINE [SQUALDO] Order #: [id number]. #:[id number] CREAT CLEAR 24 HOUR [SQUCCLR] Order #: [id number] URINE FREE CORTISOL BY LC-MS/MS [SQUFRCRT] Order #: [id number]. #:[id number] METANEPHRINES 24H UR [SQUMETAN] Order #: [id number]. #:[id number] CREATININE BLD [SQCRET] Reflex Order#: [id number] (Ord#:[id number]) CREATININE CLEARANCE, UR 24HR [DUY7296] Reflex Order#: [id number] (Ord#:[id number]) Prescriptions as of 09/06/2023 - busPIRone (BUSPAR) [...] Encounter Status:Closed by VALARIE WHARTON on 09/06/23 Normal [facility] Cortis p Dex SerPl-ncon Cortisol post dose dexamethasone [Mass/Vol] 0.9 ug/dL Normal <1.8 [facility] Comment on above: Order Comment: Speci men Type: BLOOD SPECIMEN Ordering Facility: [facility] Address: [address] [place] [address] Result Comment: Afte r overnight 1 mg dexamethasone, an webfocus developer cortisol of <1.8 ug/dL may indicate an adequate cortisol suppression. This result should be interpreted within the clinical context and other test results. Samra et al. Evidence for the Low Dose Dexamethasone Suppression Test to Screen for Mohit's Syndrome - Recommendations for a Protocol for [facility]. 1996 Sybil. Clin. Biochem. 34 222-229. Performed By: #### 4 7851-1 #### [facility] CLIA [id number] [address] [place] [address] OF [facility] DEXAMETHASONEon 09-06-2023 DEXAMETHASONE 236.1 ng/dL Normal [facility] Comment on above: Order Comment: Speci men Type: BLOOD SPECIMEN Ordering Facility: [facility] Address: [address] [place] [address] Result Comment: INTE RPRETIVE INFORMATION: Dexamethasone, Serum or Plasma by LC-MS/MS Adults baseline: Less than 50 ng/dL 8:00 AM draw following 1 mg dexamethasone between 11:00 pm and 12:00 am the previous evenin - 295 ng/dL 8:00 AM draw following 8 mg dexamethasone (4 x 2 mg doses) between 11:00 pm and 12:00 am the previous evenin - 2850 ng/dL This test was developed and its performance characteristics determined by [facility]. It has not been cleared or approved by the US Food and Drug Administration. This test was performed in a CLIA certified laboratory and is intended for clinical purposes. Performed By: [facility] [address] [place] [address] [employer] Administrator: Adis Casillas MD, PhD [facility] Number: [id number] Performed By: #### 2 141-0 #### [facility] CLIA [id number] [address] [place] [address] OF [place] CNPSheri 09-05-2023 CNPN Telephone (RenkooTALISHA) -- HEIDI JOY ([id number]) 1990 F Date Time Provider Department 09/05/23 [...] for 09/12 at 11AM per . Sent [employer] message and mailed out appointment reminder Prescriptions [...] Encounter Status:Closed by NIRMAL CHOUDHURY on 09/05/23 Normal [facility] CNPNon 09-04-2023 CNPN Telephone (STED) -- HEIDI JOY ([id number]) 1990 F Date Time Provider Department 09/04/23 [...] hyperaldosteronism (HCC) [E26.09] Order(s):DEXAMETHASONE [SQDEXA] Order #: [id number] FUTURE CORTISOL SUPRES POST [SQONCORP] Order #: [id number] FUTURE CONSULT TO ENDOCRINE SURGERY [[id number]] Order #: [id number]: [id number] FUTURE Prescriptions as of 09/04/2023 - [...] Status:Closed by VIKKI BALDERRAMA on 09/04/23 Normal [facility] US renal doppleron US renal doppler [facility] [place] [address] Ultrasound Report Signed Patient: Heidi Joy MR#: [id number] : 1990 Acct:[id number] Age/Sex: 33 / F ADM Date: 08/30/23 Loc: Room: Type: [facility] Attending Dr: Zara Ralph MD Ordering Provider: Zara Ralph MD Date of Service: 08/30/23 US/US renal doppler: E87.6, E87.3, I10. E27.9 Copies to: Zara Ralph MD Renal artery duplex examination performed using B-mode, color flow and spectral Doppler assessment. (CPT: 55436) INDICATION: Hypertension FINDINGS: Aorta: PSV 94.9 cm/s [...] Efrem Jo MD08/31/2023 3:55 PM Dictation Location: [place] [address] Tech: Hermelinda Alonso Transcribed By: KATHLEEN 08/31/23 2734 Dictated By: Efrem Jo MD 08/31/23 1554 Signed By: 08/31/23 1555 [facility] ACTH Plas-ncon 08-30-2023 Corticotropin (P) [Mass/Vol] 22.2 pg/mL Normal 7.2-63.3 [facility] Comment on above: Order Comment: Speci men Type: BLOOD SPECIMEN Ordering Facility: [facility] Address: [address] [place] [address] Result Comment: ACTH Reference Range: 7-10 am: 7.2 - 63.3 pg/mL Performed By: #### 2 141-0 #### [facility] CLIA [id number] [address] [place] [address] [place] Aldost SerPl-ncon 08-30-19 Aldosterone [Mass/Vol] 79.8 ng/dL High 0.0-<35.4 [facility] Comment on above: Order Comment: Speci men Type: BLOOD SPECIMEN Ordering Facility: [facility] Address: [address] [place] [address] Result Comment: The reference interval for serum/plasma [...] ng/dL. Performed By: #### R ENIND #### [facility] CLIA [id number] [address] [place] [address] [place] [facility] CLIA [id number] [address] [place] [address] #### 1763-2 #### [facility] CLIA [id number] [address] [place] [address] [place] Comprehensive metabolic 2000 panelon 08-30-2023 Albumin [Mass/Vol] 4.2 g/dL Normal 3.9-4.9 [facility] Comment on above: Order Comment: Speci men Type: BLOOD SPECIMEN Ordering Facility: [facility] Address: [address] [place], [place] [address] Performed By: #### 2 141-0 #### [facility] CLIA [id number] [address] [place] [address] [place] ALP [Catalytic activity/Vol] 127 U/L High 34-123 [facility] Comment on above: Order Comment: Speci men Type: BLOOD SPECIMEN Ordering Facility: [facility] Address: [address] [place] [address] Performed By: #### 2 141-0 #### [facility] CLIA [id number] [address] [place] [address] [place] ALT [Catalytic activity/Vol] 16 U/L Normal 7-38 [facility] Comment on above: Order Comment: Speci men Type: BLOOD SPECIMEN Ordering Facility: [facility] Address: [address] [place] [address] Performed By: #### 2 141-0 #### [facility] CLIA [id number] [address] [place] [address] [place] Anion gap [Moles/Vol] 10 mmol/L Normal 9-18 [facility] Comment on above: Order Comment: Speci men Type: BLOOD SPECIMEN Ordering Facility: [facility] Address: [address] [place] [address] Performed By: #### 2 141-0 #### [facility] CLIA [id number] [address] [place], [place] [address] [place] AST [Catalytic activity/Vol] 14 U/L Normal 13-35 [facility] Comment on above: Order Comment: Speci men Type: BLOOD SPECIMEN Ordering Facility: [facility] Address: [address] [place], [place] [address] Performed By: #### 2 141-0 #### [facility] CLIA [id number] [address] [place] [address] [place] Bilirubin [Mass/Vol] 1.2 mg/dL Normal 0.2-1.3 [facility] Comment on above: Order Comment: Speci men Type: BLOOD SPECIMEN Ordering Facility: [facility] Address: [address] [place] [address] Performed By: #### 2 141-0 #### [facility] CLIA [id number] [address] [place] [address] [place] Calcium [Mass/Vol] 9.4 mg/dL Normal 8.5-10.2 [facility] Comment on above: Order Comment: Speci men Type: BLOOD SPECIMEN Ordering Facility: [facility] Address: [address] [place] [address] Performed By: #### 2 141-0 #### [facility] CLIA [id number] [address] [place] [address] [place] Chloride [Moles/Vol] 109 mmol/L High 97-105 [facility] Comment on above: Order Comment: Speci men Type: BLOOD SPECIMEN Ordering Facility: [facility] Address: [address] [place] [address] Performed By: #### 2 141-0 #### [facility] CLIA [id number] [address] [place] [address] [place] CO2 [Moles/Vol] 27 mmol/L Normal 22-30 [facility] Comment on above: Order Comment: Speci men Type: BLOOD SPECIMEN Ordering Facility: [facility] Address: [address] [place] [address] Performed By: #### 2 141-0 #### [facility] CLIA [id number] [address] [place] [address] [place] Creatinine [Mass/Vol] 0.66 mg/dL Normal 0.58-0.96 [facility] Comment on above: Order Comment: Speci men Type: BLOOD SPECIMEN Ordering Facility: [facility] Address: [address] [place] [address] Performed By: #### 2 141-0 #### [facility] CLIA [id number] [address] [place] [address] [place] Creatinine and Glomerular filtration rate.predicted panel (S/P/Bld) 120 mL/min/1.73m??? Normal >=60 [facility] Comment on above: Order Comment: Peter myles Type: BLOOD SPECIMEN Ordering Facility: [facility] Address: [address] [place] [address] Result Comment: Rachel mated Glomerular Filtration Rate [...] reflect actual GFR. Performed By: #### 2 141-0 #### [facility] CLIA [id number] [address] [place] [address] [place] Glucose [Mass/Vol] 91 mg/dL Normal 74-99 [facility] Comment on above: Order Comment: Peter myles Type: BLOOD SPECIMEN Ordering Facility: [facility] Address: [address] [place] [address] Result Comment: [place] Diabetes [...] Care. 2016.39(Suppl 1). Performed By: #### 2 141-0 #### [facility] CLIA [id number] [address] [place] [address] [place] Potassium [Moles/Vol] 2.8 mmol/L Low 3.7-5.1 [facility] Comment on above: Order Comment: Speci men Type: BLOOD SPECIMEN Ordering Facility: [facility] Address: [address] [place] [address] Performed By: #### 2 141-0 #### [facility] CLIA [id number] [address] [place] [address] [place] Protein [Mass/Vol] 6.7 g/dL Normal 6.3-8.0 [facility] Comment on above: Order Comment: Speci men Type: BLOOD SPECIMEN Ordering Facility: [facility] Address: [address] [place] [address] Performed By: #### 2 141-0 #### [facility] CLIA [id number] [address] [place] [address] [place] Sodium [Moles/Vol] 146 mmol/L High 136-144 [facility] Comment on above: Order Comment: Speci men Type: BLOOD SPECIMEN Ordering Facility: [facility] Address: [address] [place] [address] Performed By: #### 2 141-0 #### [facility] CLIA [id number] [address] [place] [address] [place] Urea nitrogen [Mass/Vol] 12 mg/dL Normal 7-21 [facility] Comment on above: Order Comment: Speci men Type: BLOOD SPECIMEN Ordering Facility: [facility] Address: [address] [place] [address] Performed By: #### 2 141-0 #### [facility] CLIA [id number] [address] [place] [address] [place] Tamie Fritz 08-30-19 24 Cortisol [Mass/Vol] 9.5 ug/dL Normal 4.8-19.5 [facility] Comment on above: Order Comment: Speci men Type: BLOOD SPECIMEN Ordering Facility: [facility] Address: [address] [place] [address] Result Comment: Prov ided reference range is from 6-10 AM sample collection time. Cortisol Reference Range: 6-10 AM = 4.8-19.5 ug/dL, 4-8 PM = 2.5-11.9 ug/dL Performed By: #### 2 143-6, DHEAS #### [facility] CLIA [id number] [address] [place] [address] [place] DHEA-S BLDon 08-30-2023 DHEA-S [Mass/Vol] 188.1 ug/dL Normal 98.8-340.0 [facility] Comment on above: Order Comment: Joselyni men Type: BLOOD SPECIMEN Ordering Facility: [facility] Address: [address] [place] [address] Result Comment: Refe rence ranges are age and gender specific. For additional information, reference range tables can be found in the laboratory test directory. The normal values are based on the following source: Dehydroepiandrosterone sulfate (DHEA S) [package insert V 17.0 Faroese]. [facility], [place], [place]: March 2013. Performed By: #### 2 143-6, DHEAS #### [facility] CLIA [id number] [address] [place] [address] [place] DIRECT RENIN PLASMAon 2023 DIRECT RENIN <2.1 Low 4.2-52.2 [facility] Comment on above: Order Comment: Speci men Type: BLOOD SPECIMEN Ordering Facility: [facility] Address: [address] [place] [address] Result Comment: A ra yue of aldosterone [...] pg/mL Performed By: #### R ENIND #### [facility] CLIA [id number] [address] [place] [address] [place] [facility] CLIA [id number] [address] [place] [address] #### 1763-2 #### [facility] CLIA [id number] [address] [place] [address] [place] PATIENT UPRIGHT OR SUPINE Upright Normal [facility] Comment on above: Order Comment: Speci men Type: BLOOD SPECIMEN Ordering Facility: [facility] Address: [address] [place] [address] Performed By: #### R ENIND #### [facility] CLIA [id number] [address] [place] [address] [place] [facility] CLIA [id number] [address] [place] [address] #### 1763-2 #### [facility] CLIA [id number] [address] [place] [address] [place] METANEPHRINES, FREE PLASMAon 08-30-2023 METANEPHRINE, PLASMA 28 pg/mL Normal 12-67 [facility] Comment on above: Order Comment: Speci men Type: BLOOD SPECIMEN Ordering Facility: [facility] Address: [address] [place] [address] Result Comment: Refe rence Ranges: Hypertensive adult > or = 18 yrs old: 12-72 pg/mL Normotensive adult > or = 18 yrs old: 12-67 pg/mL Normotensive children < 18 yrs old: 10-95 pg/mL Performed By: #### P METAN #### [facility] CLIA [id number] [address] [place] [address] [place] NORMETANEPHRINE, PLASMA 84 pg/mL Normal 18-101 [facility] Comment on above: Order Comment: Speci men Type: BLOOD SPECIMEN Ordering Facility: [facility] Address: [address] [place] [address] Result Comment: Kimberlyn martinez Ranges: Hypertensive adult > or = 18 yrs old: 24-145 pg/mL Normotensive adult > or = 18 yrs old: 18-101 pg/mL Normotensive children < 18 yrs old: 22-83 pg/mL Methyldopa may cause false elevation of normetanephrine levels in this assay. If patient is on methyldopa, interpret results with caution. Performed By: #### P METAN #### [facility] CLIA [id number] [address] [place] [address] [place] [address] [place] MR FOOT RIGHT [...] Painter, DO Normal Not Available [facility]on SARS-CoV-2 (COVID-19) RNA DARWIN+probe Ql (Unsp spec) Not detected Normal NOT DETECTED [facility] Comment on above: Result Comment: This test is not yet approved or cleared by the [place] FDA. When there are no FDA-approved or cleared tests available, and other criteria are met, FDA can make tests available under an emergency access mechanism called an Emergency Use Authorization (EUA). The EUA for this test is supported by the Product Support Manager of Health and Human Service's (HHS's) declaration [...] SARS-CoV-2. Performed By: #### C VDTBH #### [facility] [address] [place] [address] Dr. Maylin Ch Follow-Upon 11-05-2022 Follow-Up [id number] Janine Joy 1990 F Date Provider Department Center 11/05/2022 RAVINDRA BUCKLEY ONC DCC Family History Problem Relation Age of Onset Diabetes Mother Thyroid cancer Mother Diabetes Father Hypertension Father Family Status - Relation Status Age at Mother Father Level of Service:16327 [place] OFFICE/OUTPATIENT ESTABLISHED MOD MDM 30-39 MIN Normal [facility] DRUG SCREEN RAPID (URINE)on 10-23-2022 AMP Negative Normal NEGATIVE [facility] Comment on above: Performed By: #### D RUGRPD #### [facility] [address] [place] [address] Dr. Maylin Ch BAR Negative Normal NEGATIVE [facility] Comment on above: Performed By: #### D RUGRPD #### [facility] [address] [place] [address] Dr. Maylin Ch BUP Negative Normal NEGATIVE [facility] Comment on above: Performed By: #### D RUGRPD #### [facility] [address] [place] [address] Dr. Maylin Ch BZO Negative Normal NEGATIVE [facility] Comment on above: Performed By: #### D RUGRPD #### [facility] [address] [place] [address] Dr. Maylin Ch DRE Negative Normal NEGATIVE [facility] Comment on above: Performed By: #### D RUGRPD #### [facility] [address] [place] [address] Dr. Maylin Ch CUT-OFFS SEE BELOW Normal [facility] Comment on above: Result Comment: AMP [...] ng/mL Performed By: #### D RUGRPD #### [facility] [address] [place] [address] Dr. Maylin Ch DRUG CUT HEADER DRUG CLASS TEST SYST EM CUT-OFF CONCENTRATIONS ARE FOLLOWS: Normal [facility] Comment on above: Performed By: #### D RUGRPD #### [facility] [address] [place] [address] Dr. Maylin Ch mAMP Negative Normal NEGATIVE [facility] Comment on above: Performed By: #### D RUGRPD #### [facility] [address] [place] [address] Dr. Maylin Ch MTD Negative Normal NEGATIVE [facility] Comment on above: Performed By: #### D RUGRPD #### [facility] [address] [place] [address] Dr. Maylin Ch OPI Negative Normal NEGATIVE [facility] Comment on above: Performed By: #### D RUGRPD #### [facility] [address] [place] [address] Dr. Maylin Ch OXY Negative Normal NEGATIVE [facility] Comment on above: Performed By: #### D RUGRPD #### [facility] [address] [place] [address] Dr. Maylin Ch PCP Negative Normal NEGATIVE [facility] Comment on above: Performed By: #### D RUGRPD #### [facility] [address] [place] [address] Dr. Maylin Ch PPX Negative Normal NEGATIVE [facility] Comment on above: Performed By: #### D RUGRPD #### [facility] [address] [place] [address] Dr. Maylin Ch TCA Negative Normal NEGATIVE [facility] Comment on above: Performed By: #### D RUGRPD #### [facility] [address] [place], [place] [address] Dr. Maylin Ch THC Negative Normal NEGATIVE [facility] Comment on above: Performed By: #### D RUGRPD #### [facility] [address] [place], [place] [address] Dr. Maylin Ch MR BRAIN W AND [...] of ventriculomegaly. Electronically signed: Frank Lara. Normal [facility] Potassiumon 09-13-2022 Potassium [Moles/Vol] 3.3 mmol/L Low 3.5-5.1 [facility] Comment on above: Order Comment: Reaso n for Exam Plantar fasciitis;Encounter for preoperative assessment Result Comment: PERF ORMED BY: [facility] [address] [place] [address] PATHOLOGIST MEDICAL CLAIMS REPRESENTATIVE MARY ANN LAL M.D. Performed By: #### K #### [facility] [address] Serum or plasma potassium me asurement (moles/volume)Ordered By: Manasa Rhodes on 09-13-2022 Potassium [Moles/Vol] 3.3 mmol/L 3.5-5.1 [facility] Office Visiton 09-10-2022 Follow-up visit [id number] Janine Joy 1990 F Date Provider Department Center 09/10/2022 RAVINDRA BUCKLEY ONC DCC Family History Problem Relation Age of Onset Diabetes Mother Thyroid cancer Mother Diabetes Father Hypertension Father Family Status - Relation Status Age at Mother Father Level of Service:32965 [place] OFFICE/OUTPATIENT ESTABLISHED MOD MDM 30-39 MIN Reason for Visit and Comments: Consult [484] - Past patient, coming back today to have imaging reordered. Normal [facility] Orders Onlyon 09-10-2022 Orders Only [id number] Janine Joy A 1990 F Date Provider Department Center 09/10/2022 MONICA DOMINGUEZ ONC DCC Family History Problem Relation Age of Onset Diabetes Mother Thyroid cancer Mother Diabetes Father Hypertension Father Family Status - Relation Status Age at Mother Father Normal [facility] MAGNESIUMon 09-07-2022 Magnesium [Mass/Vol] 1.9 mg/dL Normal 1.8-2.4 [facility] Comment on above: Performed By: #### M G, PHOS, BMP #### [facility] [address] [place] [address] [address] Maylin Ch PHOSPHORUSon 09-07-2022 Phosphate [Mass/Vol] 3.7 mg/dL Normal 2.6-4.7 [facility] Comment on above: Performed By: #### M G, PHOS, BMP #### [facility] [address] [place] [address] [address] Maylin Ch PROF CHEM 8 (BAS METB)on Anion gap [Moles/Vol] 14.3 mmol/L Normal Th e [facility] Comment on above: Performed By: #### YAMILET Lopez, BMP #### [facility] [address] [place] [address] Dr. Maylin Ch Calcium [Mass/Vol] 9.3 mg/dL Normal 8.5-10.1 [facility] Comment on above: Performed By: #### YAMILET Lopez, BMP #### [facility] [address] [place] [address] Dr. Maylin Ch Chloride [Moles/Vol] 105 mmol/L Normal 98-107 [facility] Comment on above: Performed By: #### YAMILET Lopez, BMP #### [facility] [address] [place] [address] Dr. Maylin Ch CO2 [Moles/Vol] 31.0 mmol/L Normal 21.0-32.0 [facility] Comment on above: Performed By: #### YAMILET Lopez, BMP #### [facility] [address] [place] [address] Dr. Maylin Ch Creatinine [Mass/Vol] 0.90 mg/dL Normal 0.55-1.02 [facility] Comment on above: Performed By: #### YAMILET Lopez, BMP #### [facility] [address] [place] [address] Dr. Maylin Ch EGFR-AF CUBAN >60 Normal >=60 [facility] Comment on above: Performed By: #### YAMILET Lopez, BMP #### [facility] [address] [place] [address] Dr. Maylin Ch EGFR-NON AF CUBAN >60 Normal >=60 [facility] Comment on above: Performed By: #### YAMILET Lopez, BMP #### [facility] [address] [place] [address] Dr. Maylin Ch Glucose [Mass/Vol] 158 mg/dL Critically high 74-[address] [facility] Comment on above: Performed By: #### YAMILET Lopez, BMP #### [facility] [address] [place] [address] [address] Maylin Ch Potassium [Moles/Vol] 2.3 mmol/L Critically low 3.5-5.1 [facility] Comment on above: Performed By: #### YAMILET Lopez, BMP #### [facility] [address] [place] [address] [address] Maylin Ch Sodium [Moles/Vol] 147 mmol/L Critically high 136-[address] [facility] Comment on above: Performed By: #### YAMILET Lopez, BMP #### [facility] [address] [place] [address] [address] Maylin Ch Urea nitrogen [Mass/Vol] 7.0 mg/dL Normal 7.0-18.0 [facility] Comment on above: Performed By: #### YAMILET Lopez, BMP #### [facility] [address] [place] [address] [address] Maylin Ch Urea nitrogen/Creatinine [Mass ratio] 7.8 mg/mg Normal [facility] Comment on above: Performed By: #### YAMILET Lopez, BMP #### [facility] [address] [place] [address] [address] Maylin Ch Potassiumon 09-07-2022 Potassium [Moles/Vol] 2.4 mmol/L Off scale low 3.5-5.1 [facility] Comment on above: Result Comment: Resu lts called at 0807 on 09/07/22 PERFORMED BY: [place] [address] PATHOLOGIST MEDICAL CLAIMS REPRESENTATIVE MARY ANN LAL M.D. Performed By: #### K #### [address] Serum or plasma potassium me asurement (moles/volume)Ordered By: NON STAFF on 09-07-2022 Potassium [Moles/Vol] 2.4 mmol/L 3.5-5.1 [facility] Comment on above: Results calledat 080 [...] seen for a consultation for. DEDE Benson, [facility] Bariatrics- Bariatric sx History [...] Vital Signs Recorded: 06Jun2022 04:17PMRecorded: 06Jun2022 03:45PM [id number], LUE, Sitting [id number], LUE, Sitting Heart Rate71, Apical Height5 ft 7 in Pabvqq306 lb BMI Fkdfzyhflk95.77 kg/m2 BSA Calculated2.42 Tobacco Useb) No PHQ-2 [...] to auscul (more content not included)... Normal [employer] Tobacco Screening.on 022 Adult depression screening assessment No MP-Loc[facility] [employer] DO Work Phone: Tobacco use status CPHS b) No M P-Loc[facility] [employer] DO Work Phone: DHEA SERUMon 01-12-2022 Dehydroepiandrosterone (DHEA) 287 ng/dL Normal 31-701 [facility] Comment on above: Result Comment: Age 2 [...] 701 Performed By: #### D WILLA. #### [facility] [address] [place] [address] Dr. Maylin Ch TESTOSTERONE, FREE,DIRECT, T OTALon 01-06-2022 Free Testosterone(Direct) 1.6 pg/mL Normal 0.0-4.2 [facility] Comment on above: Result Comment: Perf ormed at: BN Performed By: #### T ESTFRD #### [facility] [address] [place] [address] Dr. Maylin Ch Testosterone [Mass/Vol] 17 ng/dL Normal 13-71 [facility] Comment on above: Result Comment: Perf ormed at: CB Performed By: #### T ESTFRD #### [facility] [address] [place] [address] Dr. Maylin Ch INSULINon 01-05-2022 Insulin 13.2 uIU/mL Normal 2.6-24.9 [facility] Comment on above: Performed By: #### I NSULIN #### [facility] [address] [place] [address] [address] Maylin Ch GLYCOHEMOGLOBIN A1Con 2021 ADA RECOMMENDATION SEE BELOW Normal [facility] Comment on above: Result Comment: ADA RECOMMENDED LIMIT 4.0 - 6.0 ADA THERAPEUTIC TARGET < 7.0 ACTION SUGGESTED > 7.0 Performed By: #### A 1C #### [facility] [address] [place] [address] Dr. Maylin Ch Glucose [Mass/Vol] 146 mg/dL Normal [facility] Comment on above: Performed By: #### A 1C #### [facility] [address] [place] [address] Dr. Maylin Ch HbA1c (Bld) [Mass fraction] 6.7 % Critically high 4.5-6.2 [facility] Comment on above: Performed By: #### A 1C #### [facility] [address] [place] [address] Dr. Maylin Ch TSHon 01-04-2022 TSH 3.214 uIU/mL Normal 0.358-3.74 0 [facility] Comment on above: Performed By: #### T SH #### [facility] [address] [place] [address] Dr. Maylin Ch TSH RANGE SEE BELOW Normal [facility] Comment on above: Result Comment: <0.3 4 UIU/ml HYPERTHYROID 0.34-5.60 UIU/ml EUTHYROID >5.60 UIU/ml HYPOTHYROID Performed By: #### T SH #### [facility] [address] [place] [address] Dr. Maylin Ch Potassiumon 10-05-2021 Potassium [Moles/Vol] 3.3 mmol/L Low 3.5-5.5 [facility] [place] [employer] Comment on above: Performed By: #### K #### [facility] [address] [place] [id number] [place] 09-11-2021 Consent [id number]#1.00CD:127 Normal [facility] Registrationon 09-11-2021 Registration [id number]#1.00CD:127 Normal [facility] Basic Metabolic Panelon 01-2 Anion gap [Moles/Vol] 21 mmol/L High 12-20 [facility] Specialist Comment on above: Result Comment: Effe ctive 08/10/2019 reference range changed. Performed By: #### B MP #### [facility] [address] [facility] [place] [id number] Calcium [Mass/Vol] 9.3 mg/dL Normal 8.6-10.2 Sydnie crespo [employer] Comment on above: Performed By: #### B MP #### [facility] [address] [place] [id number] Chloride [Moles/Vol] 106 mmol/L Normal 98-107 [facility] Comment on above: Performed By: #### B MP #### [facility] [address] [facility] [place] [id number] CO2 [Moles/Vol] 20 mmol/L Normal 20-31 [facility] Comment on above: Performed By: #### B MP #### [facility] [address] [facility] [place] [id number] Creatinine [Mass/Vol] 0.7 mg/dL Normal 0.6-1.4 [facility] Comment on above: Performed By: #### B MP #### [facility] [address] [facility] [place] [id number] eGFRAA 115 mL/min/1.73m2 Normal >60 [facility] Comment on above: Performed By: #### B MP #### [facility] [address] [place] [id number] eGFRNAA 95 mL/min/1.73m2 Normal >60 [facility] Comment on above: Performed By: #### B MP #### [facility] [address] [facility] [place] [id number] Glucose [Mass/Vol] 184 mg/dL High 65-99 Sydnie crespo [employer] Comment on above: Result Comment: For FASTING Glucose --- ADA reference ranges: Normal 65-99 mg/dl Prediabetes 100-125 Diabetes >/= 126 Performed By: #### B MP #### [facility] [address] [place], [place] [id number] Potassium [Moles/Vol] 2.8 mmol/L Critically low 3.5-5.5 [facility] Specialist Comment on above: Result Comment: Crit ical result called to Dr Rhodes/Rylee at 09/01/2021 11:58 AM by Cyndie Montanez (Bertha) Performed By: #### B MP #### [facility] [address] [place], [place] [id number] Sodium [Moles/Vol] 144 mmol/L Normal 135-146 [facility] Comment on above: Performed By: #### B MP #### [facility] [address] [place], [place] [id number] Urea nitrogen [Mass/Vol] 10 mg/dL Normal 7-25 [facility] Specialist Comment on above: Performed By: #### B MP #### [facility] [address] [place], [place] [id number] [place] 08-17-2021 Consent [id number]#1.00CD:127 Normal [facility] Registrationon 08-17-2021 Registration [id number]#1.00CD:127 Normal [facility] Registrationon 04-04-2021 Registration [id number]#1.00CD:127 Normal [facility] [place] 04-03-2021 Consent [id number]#1.00CD:127 Normal [facility] MRI BRAIN W WO CONTRASTon MRI BRAIN W WO CONTRAST [facility] Department of Radiology [address] [place] [id number] Patient Name: HEIDI JOY : 1990 Sex: F Age: Race: White Pt. 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 I, Shawn Martins,have reviewed the images and reports Electronically signed: Shawn Martins. Transcribed by: [email or web address], User Resident: JONATHAN JONES Electronically Signed by: SHAWN MARTINS @ 03/17/2020 12:45 PM I personally read this/these film(s) with this resident Normal [facility] Comment on above: Order Comment: , [...] WO CONTRASTon MRI BRAIN W WO CONTRAST [facility] Department of Radiology [address] [place] [id number] Patient Name: HEIDI JOY : 1990 Sex: F Age: Race: White Pt. 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 Transcribed by: [email or web address], User Resident: DANDY HUFFMAN Electronically Signed by: JIM CURIEL @ 09/11/2019 04:35 PM I personally read this/these film(s) with this resident Normal [facility] Comment on above: Order Comment: , [...] 01-29-2018 Coding Summary CODING DATE: 018 FINAL [facility] STATUS: Home PAYOR: Medicaid HMO ADMIT [...] Swanson' Date Saved: 01/29/2018 03:42 pm Normal [facility] ED Clinical Summaryon 2017 ED Clinical Summary [facility] ? Urgent [id number] [id number] clinical SummaryPERSON INFORMATIONName: HEIDI JOY Age: 27 Years Sex: FEMALEDOB: [birth year] MRN: Acct#:Visit Reason: UC - Rash; UC - Rash; RASH/ BILAT LEGS Arrival: 01/23/18 10:43:00 Discharge: 01/23/18 11:18:00LOS: 000 00:35 Check In: 01/23/18 10:43:00 Checkout: 01/23/18 11:18:00Address:[facility] [address]AIM: Immanuel Kuhn INFORMATIONProvider Role Assigned UnassignedSpasic Carmelo ASHRAF ED PA 01/23/18 10:48:23Cristal Dunaway ED Nurse 01/23/18 10:53:41VITALS INFORMATIONVital Sign Triage LatestTemperature TympanicTemperature Temporal ArteryPulse Rate 79 bpm 79 bpmO2 Sat 97 % 97 %Respiratory Rate 16 br/min 16 br/minBlood Pressure 162 mmHg/98 mmHg 162 mmHg/98 mmHgMEDICAL INFORMATIONMedications Given:Allergy Information:No Known Medication AllergiesPHYSICIAN DOCUMENTATIONDISCHARGE INFORMATION:Discharge Disposition: HomeDischarge Location:PATIENT EDUCATION INFORMATIONInstructions: Poison Hospers Dermatitis, Ycua-tx-RbgaYggxvf-Up:With : Address: When:Immanuel Kuhn [address] [place], [place] [id number] Business (1)Comments:Begin on the prednisone 2 tablets daily for 5 days take with food to avoid gastric refluxBegin on the Claritin 1 tab daily for the next 2 weeks Follow-up with primary care provider in 3-5 days sooner if worse.DIAGNOSIS:urushiol induced contact dermatitisPatient Understands: Yes - Patient/family/caregiver verbalizes understanding of instructions givenComment: [facility] ED Note - Physician Patient: HONORIO JOY : 27 years Sex: FEMALE : [birth year]Associated Diagnoses: urushiol induced contact dermatitisAuthor: Zo ASHRAF, Pham InformationTime seen: Date & time 01/23/18 11:01:00.History source: Patient.Arrival mode: Private vehicle.History limitation: None.Additional information: Chief Complaint from Nursing Triage Note : Chief Zaiylljrv24/21/18 10:45 EDT Chief Complaint 2-3 days possible [...] been selected or recorded..Social history:Social & Psychosocial CinhwfYsdkntv86/21/2018 Number used per day: 10.Problem list:Active Problems (1)Smoker.Physical Examination Vital YpnzfVbfevimtfgew51/21/18 10:45 EDT Height 170.18 cm Weight 122.47 [...] was given the following educational materials: Poison Hospers Dermatitis, Rikm-bp-Arxv.Follow up with: Immanuel Kuhn Begin on the [...] on: 01/23/2018 11:28 EDT] [place] Normal [facility] ED Patient Summaryon 018 ED Patient Summary [facility] ? Urgent [id number] [place] [address] pATIENT DISCHARGE INSTRUCTIONSPatient InformationName: HEIDI JOY Age: 27 YearsDate of : [birth year]MRN: [id number] For Visit: UC - Rash; UC - Rash; RASH/ BILAT LEGSArrival Time: 01/23/18 10:43:00Phone: Primary Care Physician: Immanuel Kuhn Physician: Kailash Lakeomment:Patient EducationWith: Address: When:Immanuel Kuhn [facility] [address] [place] [address] Business (1)Comments:Begin on the prednisone 2 tablets daily for 5 days take with food to avoid gastric refluxBegin on the Claritin 1 tab daily for the next 2 weeks Follow-up with primary care provider in 3-5 days sooner if worse.Poison Hospers DermatitisPoison oak dermatitis is redness and soreness [...] instructions at home:General instructions? Take or apply zkni-viq-jaknrbv and prescription medicines only as told by [...] Reviewed: 12/28/2015[employer] Patient Education ? 2018 [employer]Medication Information:The exam and treatment you received today in the [facility] Emergency Department were for an urgent problem and are not intended as complete care. It is important for you to follow up with a doctor, nurse practitioner, or physician?s instructional support assistant for ongoing care. If your symptoms [...] number so we can reach you if necessary.[facility] Emergency Department has provided you with a complete list of medications post discharge. Please inform your fur feeder/provider of your visit and for further instruction [...] InformationVisit Diagnosis:Diagnoses This Visit UC - Rash ([id number]) UC - Rash ([id number]) urushiol induced contact dermatitisIf you received any [...] Weight: 122.47 kg Body Mass Index: 42.29 kg/r5Zfdofabu List:Problem Onset CommentsSmokerMajor Tests and Procedures:The following [...] the Answerwww.cdc.gov/getsmart GET SMART Know When Antibiotics Cday.[place]. Department of Health and Human ServicesCenters for Disease Control and Prevention April 2014 Normal [facility] Urgent Care [address] 018 Urgent Care Record [facility] ? Urgent [id number] [place] [id number] pATIENT DISCHARGE INSTRUCTIONSPatient InformationName: HEIDI JOY Age: 27 YearsDate of : [birth year]MRN: [id number] For Visit: UC - Rash; UC - Rash; RASH/ BILAT LEGSArrival Time: 01/23/18 10:43:00Phone: Primary Care Physician: Immanuel Kuhn Physician: Wai LakeandarComment:Visit Diagnosis:Diagnoses This Visit UC - Rash ([id number]) UC - Rash ([id number]) urushiol induced contact dermatitisIf you received any [...] or sign any legal documentsWith: Address: When:Immanuel Bammartha [address] [place] [address] Business (1)Comments:Begin on the prednisone 2 tablets daily for 5 days take with food to avoid gastric refluxBegin on the Claritin 1 tab daily for the next 2 weeks Follow-up with primary care provider in 3-5 days sooner if worse.Medication Information:The exam and treatment you received today in the [facility] Ur[facility] Care were for an urgent problem and are not intended as complete care. It is important for you to follow up with a doctor, nurse practitioner, or physician?s instructional support assistant for ongoing care. If your symptoms [...] number so we can reach you if necessary.[facility] has provided you with a complete list of medications post discharge. Please inform your fur feeder/provider of your visit and for further instruction [...] Weight: 122.47 kg Body Mass Index: 42.29 kg/h8Upfxdipu List:Problem Onset CommentsSmoker Patient EducationPoison Hospers DermatitisPoison oak dermatitis is redness and soreness [...] instructions at home:General instructions? Take or apply rkdy-oec-xzksioc and prescription medicines only as told by [...] Reviewed: 12/28/2015[employer] Patient Education ? 2018 [employer]. Viruses or BacteriaWhat?s got you sick?Antibiotics only [...] Disease Control and Prevention April 2014 Normal [facility] Vital Signs Date Time Vital Sign Value Performing Clinician Facility 09-13-2023 10:53-0500 Body mass index (BMI) [Ratio] 31.78 kg/m2 Barbara Dixon NP Work Phone: [facility] 09-13-2023 10:53-0500 Body temperature 97.5 [degF] Barbara Dixon COB [employer]ER Work Phone: [facility] 09-13-2023 10:53-0500 Body weight 89.3 kg Barbara Dixon [employer] Work Phone: [facility] 09-13-2023 10:53-0500 Diastolic blood pressure 100 mm[Hg] Barbara Dixon [employer] Work Phone: [facility] 09-13-2023 10:53-0500 Heart rate 79 /min Barbara Dixon [employer] Work Phone: [facility] 09-13-2023 10:53-0500 SaO2% (BldA) [Mass fraction] 98 % Barbara Dixon [employer] Work Phone: [facility] 09-13-2023 10:53-0500 Systolic blood pressure 160 mm[Hg] Barbara Dixon [employer]ER Work Phone: [facility] 09-09-2023 16:00-0500 Body height 170.18 cm Zara Ramo Other [email or web address] Other 09-09-2023 16:00-0500 Body mass index (BMI) [Ratio] 30.82 kg/m2 Zara Ramo Other [email or web address] Other 09-09-2023 16:00-0500 Body temperature 96.4 [degF] Zara Ramo Other [email or web address] Other 09-09-2023 16:00-0500 Body weight 89.27 kg Zara Ramo Other [email or web address] Other 09-09-2023 16:00-0500 Diastolic blood pressure 92 mm[Hg] Zara Ramo Other [email or web address] Other 09-09-2023 16:00-0500 Respiratory rate 18 /min Zara Ramo Other [email or web address] Other 09-09-2023 16:00-0500 SaO2% (BldA) [Mass fraction] 99 % Zara Ramo Other [email or web address] Other 09-09-2023 16:00-0500 Systolic blood pressure 151 mm[Hg] Zara Ramo Other [email or web address] Other 08-19-2023 16:00-0500 Body height 170.18 cm Zara Ramo Other [email or web address] Other 08-19-2023 16:00-0500 Body mass index (BMI) [Ratio] 31.76 kg/m2 Zara Ramo Other [email or web address] Other 08-19-2023 16:00-0500 Body temperature 97.5 [degF] Zara Ramo Other [email or web address] Other 08-19-2023 16:00-0500 Body weight 91.99 kg Zara Ramo Other [email or web address] Other 08-19-2023 16:00-0500 Diastolic blood pressure 100 mm[Hg] Zara Ramo Other [email or web address] Other 08-19-2023 16:00-0500 Respiratory rate 18 /min Zara Ramo Other [email or web address] Other 08-19-2023 16:00-0500 SaO2% (BldA) [Mass fraction] 100 % Zara Ramo Other [email or web address] Other 08-19-2023 16:00-0500 Systolic blood pressure 170 mm[Hg] Zara Ralph Other [facility] [employer] Other 06-06-2022 16:17-0400 Diastolic blood pressure 89 mm[Hg] Immanuel Kuhn Work Phone: [facility] [address] DO Work Phone: 06-06-2022 16:17-0400 Systolic blood pressure 138 mm[Hg] Immanuel Kuhn Work Phone: [facility] [address] DO Work Phone: 06-06-2022 15:45-0400 Body height 170.18 cm Immanuel Kuhn Work Phone: [facility] [address] DO Work Phone: 06-06-2022 15:45-0400 Body mass index (BMI) [Ratio] 47.77 kg/m2 Immanuel Kuhn Work Phone: [facility] [address] DO Work Phone: 06-06-2022 15:45-0400 Body surface area Derived from formula 2.42 m2 Immanuel Kuhn Work Phone: [facility] [address] DO Work Phone: 06-06-2022 15:45-0400 Body weight 138.35 kg Immanuel Kuhn Work Phone: [facility] [address] DO Work Phone: 06-06-2022 15:45-0400 Diastolic blood pressure 102 mm[Hg] Immanuel Kuhn Work Phone: [facility] [address] DO Work Phone: 06-06-2022 15:45-0400 Heart rate 71 /min Immanuel Kuhn Work Phone: [facility] [address] DO Work Phone: 06-06-2022 [id number] Systolic blood pressure 160 mm[Hg] Immanuel Kuhn Work Phone: -Located [facility] [address] DO Work Phone: Encounters Encounter Date Encounter Type Care Provider Facility Start: 09-25-2023 End: 09-25-2023 ambulatory SHEILA BRAUN Not Available Start: 09-25-2023 End: 09-25-2023 ambulatory MANASA DUNAWAY Not Available Start: 09-13-2023 Telephone encounter [facility] NP [facility] Start: 09-13-2023 End: 09-13-2023 ambulatory BARBARA DIXON Not Available Start: 09-13-2023 End: 09-13-2023 Office outpatient visit 25 minutes Barbara Dixon [employer] Work Phone: [facility] Comment on above: Acute bronchitis, un specified organism (Primary Dx) Start: 09-12-2023 Clinisync Result Encounter Gen juan luis External Data Provider [facility] External Department Unsolicited Start: 09-12-2023 Clinisync Result Encounter Gen juan luis External Data Provider [facility] External Department Unsolicited Start: 09-12-2023 End: 09-12-2023 ambulatory Mario Santiago MD Work Phone: General Surgery Comment on above: Primary hyperaldoste ronism (HCC) (Primary Dx); Adenoma of left adrenal gland Start: 09-12-2023 End: 09-12-2023 Telemedicine consultation with patient Mario Santiago MD Work Phone: [facility] Start: 09-11-2023 Bamboo flowsheet Sheila Rain tt [facility] Work Phone: [facility] Start: 09-11-2023 Bamboo flowsheet Sheila Rain tt [facility] Work Phone: [facility] Start: 09-11-2023 End: 09-11-2023 Social Work Sheila Braun [facility] Work Phone: [facility] Comment on above: Generalized anxiety disorder (CMS/HCC); Bipolar affective disorder, currently depressed, mild (CMS/HCC) Start: 09-10-2023 Chart abstracting Manasa Dunaway DPM Work Phone: [facility] Start: 09-10-2023 End: 09-10-2023 ambulatory IMMANUEL KUHN Facility:[facility] Start: 09-09-2023 End: 09-09-2023 ambulatory Zara Ramo Other [email or web address] Other Start: 09-09-2023 Office outpatient vi sit 25 minutes Zara Ramo [facility] Start: 09-06-2023 Clinisync Result Encounter Gen juan luis External Data Provider [facility] External Department Unsolicited Start: 09-06-2023 Clinisync Result Encounter Gen juan luis External Data Provider [facility] External Department Unsolicited Start: 09-06-2023 Telephone encounter Mario encinas MD Work Phone: Endocrine Surgery Comment on above: Consult (FACE SHEET) Start: 09-06-2023 End: 09-06-2023 ambulatory IMMANUEL Tatyana BAM Facility:[facility] Start: 09-05-2023 Telephone encounter Mario encinas MD Work Phone: General Surgery Comment on above: Appointment (Called patient and left a message that patient was added to 's schedule for a virtual appointment for 09/12 at 11AM per . Sent [employer] message and mailed out appointment reminder) Start: 08-30-2023 End: 08-30-2023 ambulatory VIKKI BALDERRAMA Facility:[facility] Start: 08-30-2023 End: 08-30-2023 ambulatory Immanuel Kuhn Facility:[facility] Start: 08-30-2023 End: 08-30-2023 ambulatory DO Immanuel Bam Work Phone: [facility] Work Phone: Start: 08-30-2023 End: 08-30-2023 Patient encounter procedure DO Immanuel Kuhn Work Phone: [facility] [place] Work Phone: Start: 08-23-2023 End: 08-23-2023 ambulatory Zara Ramo Other [email or web address] Other Start: 08-23-2023 Telephone encounter Zara Ramo [facility] Start: 08-22-2023 End: 08-22-2023 ambulatory SHEILA L BRAUN Not Available Start: 08-21-2023 End: 08-22-2023 ambulatory MANASA DUNAWAY Not Available Start: 08-20-2023 End: 08-20-2023 ambulatory VIKKI BALDERRAMA Facility:[facility] Start: 08-20-2023 End: 08-20-2023 ambulatory Vikki Balderrama MD Work Phone: Endocrinology Comment on above: 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) Start: 08-20-2023 End: 08-20-2023 Telemedicine consultation with patient Vikki Balderrama MD Work Phone: [facility] Start: 08-19-2023 End: 08-19-2023 ambulatory Zara Armo Other [email or web address] Other Start: 08-19-2023 Office outpatient ne w 45 minutes Zara Ramo [facility] Start: 08-19-2023 End: 08-19-2023 Patient encounter procedure DO Immanuel Kuhn Work Phone: [facility] Work Phone: Start: 08-15-2023 End: 08-15-2023 ambulatory MANASA H DUNAWAY Not Available Start: 08-14-2023 End: 08-14-2023 ambulatory SHEILA L BRAUN Not Available Start: 08-07-2023 End: 08-07-2023 ambulatory ТАТЬЯНА CARTER Not Available Start: 08-02-2023 End: 08-03-2023 ambulatory JUAN BARON Not Available Start: 07-30-2023 End: 07-31-2023 ambulatory JUAN BARON Not Available Start: 07-24-2023 End: 07-24-2023 ambulatory JHONY GARCIA Not Available Start: 07-22-2023 End: 07-22-2023 ambulatory JUAN BARON Not Available Start: 07-18-2023 End: 07-18-2023 ambulatory ALEX Mikaela GUMARO Not Available Start: 07-03-2023 End: 07-04-2023 ambulatory IMMANUEL KUHN Not Available Start: 06-26-2023 End: 06-26-2023 ambulatory SHEILA BRAUN Not Available Start: 03-18-[address] Della Kim Facility: Start: 12-13-2022 [facility] Start: 12-07-2022 End: 12-08-[address] IMMANUEL KUHN Facility:[facility] Start: 12-07-2022 End: 12-08-2022 Encounter for preprocedural laboratory examination DR IMMANUEL KUHN Facility:[facility] Start: 11-05-2022 ambulatory RAVINDRA LEMA [facility] Start: 10-23-2022 End: 10-24-2022 ambulatory ZAKIA BENSON Facility:[facility] Start: 10-22-2022 End: 10-23-2022 ambulatory RAVINDRA [facility] Start: 09-13-2022 End: 09-13-2022 ambulatory Manasa Dunaway Facility:[facility] Start: 09-13-2022 Encounter for other preprocedural examination Manasa Dunaway [facility] Start: 09-13-2022 End: 09-13-2022 ambulatory DO Immanuel Kuhn Work Phone: [facility] Work Phone: Start: 09-13-2022 End: 09-13-2022 Patient encounter procedure DO Immanuel Kuhn Work Phone: [facility] [place] Work Phone: Start: 09-10-2022 End: 09-10-2022 ambulatory RAVINDRA [facility] Start: 09-07-2022 End: 09-08-[address] TE Brannon Facility:[facility] Start: 09-07-2022 End: 09-07-[address] TE DARNELL . Facility: Start: 09-07-2022 End: 09-07-2022 ambulatory Tiarra Prakash Facility:[facility] Start: 09-07-2022 End: 09-07-2022 ambulatory DO Immanuel Kuhn Work Phone: [facility] Work Phone: Start: 09-07-2022 End: 09-07-2022 Patient encounter procedure DO Immanuel Kuhn Work Phone: [facility] [place] Work Phone: Start: 08-07-2022 Rx Renewal Immanuel Kuhn Work Phone: [facility] [address] DO Work Phone: Start: 07-31-2022 End: 02-21-2023 Preprocedural examination done Generic Provider [facility] Start: 06-06-2022 Office outpatient vi sit 25 minutes Immanuel Kuhn Work Phone: [facility] [address] DO Work Phone: Start: 06-06-[address] Della Kim Facility:[id number] Start: 01-04-2022 End: 01-05-[address] ESTHER ANGELES Facility: Start: 01-23-2018 End: 01-25-2018 Ambulatory [facility] Facility:[facility] Patient encounter status Immanuel Kuhn Work Phone: [facility] 250 DO Work Phone: Procedures Date Procedure Procedure Detail Performing Clinician Start: 09-12-2023 ALL POTASSIUM Generic E xternal Data Provider Start: 09-06-2023 [facility] CORTIS P DEX [facility] Generic External Data Provider Plan of Treatment Date Care Activity Detail Author Start: 12-18-2026 Screening for malign ant neoplasm of cervix [facility] Start: 10-02-2023 End: 10-02-2023 Social Work 10/02/2023 12:00 PM EST Social Work [facility] [address] [place] [address] Sheila Braun, [facility] [address] [place] [address] [facility] Start: 09-25-2023 End: 09-25-2023 Social Work 09/25/2023 12:00 PM EST Social Work [facility] [address] [place] [address] Sheila Braun, [facility] [address] [place] [address] [facility] Start: 09-18-2023 End: 09-18-2023 Social Work 09/18/2023 12:00 PM EST Social Work [facility] [address] [place] [address] Sheila Braun, [facility] [address] [place] [address] [facility] Start: 09-11-2023 End: 09-11-2023 Social Work 09/11/2023 12:00 PM EST Social Work [facility] [address] [place] [address] Sheila Braun, [facility] [address] [place] [address] [facility] Start: 09-10-2023 End: 09-10-2023 Patient encounter procedure 09/10/2023 8:45 AM EST Office Visit [facility] [address] [place] [id number] Manasa Dunaway DPM [address] [place] [address] [facility] Start: 08-30-2023 Doppler ultrasonogra phy of kidney US renal doppler [facility] Start: 08-30-2023 US Unspecified body region [facility] Start: 08-20-2023 End: 11-19-2023 Aldosterone [Mass/volume] in Serum or Plasma ALDOSTERONE BLD Lab Routine Adenoma of left adrenal gland Expected: 08/20/2023, Expires: 11/19/2023 [facility] Work Phone: Comment on above: Expected: 08/20/2023 , Expires: 11/19/2023 Start: 08-20-2023 End: 11-19-2023 Comprehensive metabolic 2000 panel - Serum or Plasma COMP METABOLIC PANEL Lab Routine Adenoma of left adrenal gland Expected: 08/20/2023, Expires: 11/19/2023 [facility] Work Phone: Comment on above: Expected: 08/20/2023 , Expires: 11/19/2023 Start: 08-20-2023 End: 11-19-2023 Corticotropin [Mass/volume] in Plasma ACTH BLD Lab Routine Adenoma of left adrenal gland Expected: 08/20/2023, Expires: 11/19/2023 [facility] Work Phone: Comment on above: Expected: 08/20/2023 , Expires: 11/19/2023 Start: 08-20-2023 End: 11-19-2023 Cortisol [Mass/volume] in Serum or Plasma CORTISOL BLD Lab Routine Adenoma of left adrenal gland Expected: 08/20/2023, Expires: 11/19/2023 [facility] Work Phone: Comment on above: Expected: 08/20/2023 , Expires: 11/19/2023 Start: 08-20-2023 End: 11-19-2023 DHEA-S BLD DHEA-S BLD Lab Routine Adenoma of left adrenal gland Expected: 08/20/2023, Expires: 11/19/2023 [facility] Work Phone: Comment on above: Expected: 08/20/2023 , Expires: 11/19/2023 Start: 08-20-2023 End: 11-19-2023 DIRECT RENIN PLASMA DIRECT RENIN PLASMA Lab Routine Adenoma of left adrenal gland Expected: 08/20/2023, Expires: 11/19/2023 [facility] Work Phone: Comment on above: Expected: 08/20/2023 , Expires: 11/19/2023 Start: 08-20-2023 End: 11-19-2023 METANEPHRINES, FREE PLASMA METANEPHRINES, FREE PLASMA Lab Routine Adenoma of left adrenal gland Expected: 08/20/2023, Expires: 11/19/2023 [facility] Work Phone: Comment on above: Expected: 08/20/2023 , Expires: 11/19/2023 Start: 08-05-2023 Depression Assessment Depression Ass essment [place] Start: 07-04-2023 Urine screening for protein Diabetes: Urine Protein Screening [facility] Start: 04-05-2023 Influenza vaccination Influenza Vacc ine (#1) [place] Start: 03-14-2023 FUV, Provider: Della Kim, Status: Pen, Time: 1:30 PM FUV, Provider: Della Kim, Status: Pen, Time: 1:30 PM [place] [address] DO Work Phone: Start: 04-06-2022 Hemoglobin A1c measurement Diabetes: Hemoglobin A1C [facility] Start: 2021 Screening for malign ant neoplasm of cervix HPV Testing [place] Start: 2012 Screening for malign ant neoplasm of cervix [place] Start: 2010 Urine microalbumin profile DTaP,Tdap,Td Vaccine (1 - Tdap) [place] Start: 2009 Hepatitis C screening Hepatitis C Sc reening [place] Start: 2009 HIV screening HIV Screening [facility] Start: 2001 Glaucoma screening Diabetes: R etinopathy Screening [facility] Start: 02-02-1992 Covid-19 Vaccine (#1) Covid-19 Vacci ne (#1) [place] Start: 1991 Hepatitis B Vaccine (1 of 3 - 3-dose series) Hepatitis B Vaccine (1 of 3 - 3-dose series) [place] Aldosterone [Mass/ti me] in 24 hour Urine ALDOSTERONE 24 HR, URINE Lab Routine Adenoma of left adrenal gland Ordered: 09/06/2023 [facility] Work Phone: Comment on above: Ordered: 09/06/2023 CATECHOLAMINES FRACTIONATED, URINE FREE CATECHOLAMINES FRACTIONATED, URINE FREE Lab Routine Adenoma of left adrenal gland Ordered: 09/06/2023 [facility] Work Phone: Comment on above: Ordered: 09/06/2023 CREAT CLEAR 24 HOUR CREAT CLEAR 24 HOUR Lab Routine Adenoma of left adrenal gland Ordered: 09/06/2023 [facility] Work Phone: Comment on above: Ordered: 09/06/2023 CREATININE BLD CREATININE BLD L ab Routine Adenoma of left adrenal gland Ordered: 09/06/2023 [facility] Work Phone: Comment on above: Ordered: 09/06/2023 CREATININE CLEARANCE , UR 24HR CREATININE CLEARANCE, UR 24HR Lab Routine Adenoma of left adrenal gland Ordered: 09/06/2023 [facility] Work Phone: Comment on above: Ordered: 09/06/2023 Guidance for venous sampling of Vein IR VENOUS SAMPLING Radiology Routine Adenoma of left adrenal gland Ordered: 09/12/2023 [facility] Work Phone: Comment on above: Ordered: 09/12/2023 METANEPHRINES 24H UR METANEPHRIN ES 24H UR Lab Routine Adenoma of left adrenal gland Ordered: 09/06/2023 [facility] Work Phone: Comment on above: Ordered: 09/06/2023 URINE FREE CORTISOL BY LC-MS/MS URINE FREE CORTISOL BY LC-MS/MS Lab Routine Adenoma of left adrenal gland Ordered: 09/06/2023 [facility] Work Phone: Comment on above: Ordered: 09/06/2023 [facility] Payers Date Payer Category Payer Self-pay [id number] 2016 Medicaid [id number] 1991 Unknown [id number] 1991 Unknown [id number] 1991 Unknown [id number] 1991 Unknown [id number] 1991 Unknown [id number] 1991 Unknown [id number] [id number]6 1990 Unknown [id number] 2.16.840.1.423764.3.579.2.356 1990 Unknown [id number] 2.16.840.1.491470.3.579.2.1259 1990 Unknown [id number] 2.16.840.1.518331.3.579.2.1259 1990 Unknown [id number] 2.16.840.1.329214.3.579.2.1259 1990 Unknown [id number] 2.16.840.1.201901.3.579.2.1259 1990 Unknown [id number] 2.16.840.1.527815.3.579.2.1259 1990 Unknown [id number] 2.16.840.1.155520.3.579.2.1259 1990 Unknown [id number] 2.16.840.1.788694.3.579.2.1259 1990 Unknown [id number] 2.16.840.1.097397.3.579.2.1259 1990 Unknown [id number] 2.16.840.1.493375.3.579.2.1259 1990 Unknown [id number] 2.16.840.1.638082.3.579.2.9 1990 Unknown [id number] 2.16.840.1.837073.3.579.2.9 1990 Unknown [id number] 2.16.840.1.578685.3.579.2.9 1990 Unknown [id number] 2.16.840.1.827876.3.579.2.9 1990 Unknown [id number] 2.16.840.1.400472.3.579.2.9 1990 Unknown [id number] 2.16.840.1.375360.3.579.2.9 1990 Unknown [id number] 2.16.840.1.970619.3.579.2.9 1990 Unknown [id number] 2.16.840.1.541533.3.579.2.1259 1958 Medicaid [id number] Unknown [facility] Unknown [facility] [id number] Unknown [id number] 2.16.840.1.901124.3.579.2.531 Unknown [id number] 2.16.840.1.977497.3.579.2.531 Unknown [id number] 2.16.840.1.188343.3.579.2.531 Social History Date Type Detail Facility Start: 01-05-2020 End: 02-21-2023 No illicit drug use No illicit drug use -[facility] [address] DO Work Phone: Comment on above: quit 2021; Start: 11-09-2019 End: 08-05-2022 Tobacco smoking status GAIS Smoker (finding) [facility] Start: 1990 Sex Assigned At Female F [facility] Start: 01-05-2020 End: 02-21-2023 [facility] Assigned At [facility] Other Start: 01-05-2020 Tobacco smoking status GAIS Never smoked tobacco [place] Start: 01-05-2020 End: 02-21-2023 Tobacco use and exposure Smokeless tobacco non-user [place] Start: 01-05-2020 Alcohol intake Current drinke r of alcohol (finding) [place] National Score (1-100), lower number is lower risk 59 [place] Start: 1990 Sex Assigned At Not on file [facility] Start: 08-27-2023 Gender identity Identifies as female gender (finding) [place] Start: 02-21-2023 Tobacco smoking status NHIS Ex-smoker [facility] End: 08-05-2022 History of tobacco use Cigarette Smoker [facility] Start: 08-15-2023 End: 09-10-2023 Alcohol intake Ex-drinker (finding) [facility] Start: 12-23-2022 Alcohol Comment 1-2 cans of soda silvestre ly [facility] Start: 09-10-2023 Alcohol Comment caffeine intak e: 1-2 cans of soda [facility] Clinical Notes 09-10-2022 to 09-13-2023 Telephone Encounter - Mohamud Moraels MA - 09/13/2023 11:30 AM ESTTelephone Encounter - Mohamud Morales MA - 09/13/2023 11:30 AM ESTTelephone Encounter - Barbara Dixon NP - 09/13/2023 11:18 AM EST Note Date & Type Note Facility 09-13-2023 Telephone encounter Note Contacted pt, went over results above, pt understood and had no further questions at the time of call [facility] 09-13-2023 Miscellaneous Notes Contacted pt, went over results above, pt understood and had no further questions at the time of call Please let pt know her BP was elevated at office visit today. She should monitor her BP at home and to ER if any increase from her baseline readings, otherwise follow up with PCP documented in this encounter [facility] 09-13-2023 Telephone encounter Note Please let pt know her BP was elevated at office visit today. She should monitor her BP at home and to ER if any increase from her baseline readings, otherwise follow up with PCP [facility] 09-13-2023 History of Present illness Narrative HPI: Historian of HPI: patient Heidi Joy is a 33 y.o. female who presents today to the Urgent Care with the following complaints and denials which have been present for 3 day(s) C/O Denies Symptom Comments [] [x] Runny Nose [x] [] Difficulty Swallowing [x] [] Sore Throat [x] [] Cough Mildly productive, white foamy sputum [] [x] Ear Pain [] [x] Fever [] [x] Chills [] [x] Nasal Congestion [] [x] Myalgia [] [x] Sinus Pain [x] [] Sinus Pressure Additional Comments: pt has taken nyquil, tylenol OTC medication without relief Pt admits chest congestion. Pt states she usually needs atb when she gets these sx. Pt is a smoker. ROS: A complete system ROS was performed and negative aside from the pertinent positives noted in the HPI and PE. Examination General Examination: General Examination: in no acute distress, well developed, well nourished Head: normocephalic, atraumatic Eyes: no discharge Ears: BOTH EARS canals normal. TM with mild erythema bilat. Nose: nares patent, sinuses nontender bilaterally Oral Cavity: mucosa moist Throat: pharynx with erythema and PND. No trismus, muffled voice, drooling or protrusion of soft palate. Uvula midline Neck/Thyroid: neck supple, trachea midline Lymph Nodes: no cervical adenopathy Skin: warm and dry Heart: S1, S2 normal, regular rate and rhythm, no S3, S4, no murmurs, rubs, gallops Lungs: clear anteriorly and posteriorly, clear to auscultation bilaterally, good air movement, no wheezes, rales, rhonchi Chest: normal shape and expansion, normal anteroposterior (AP) diameter Psych: alert, oriented. 1. Acute bronchitis, unspecified organism Start ceftin-see rx. Immediate eval if new, worsening or warning s/s otherwise follow up with PCP if sx not resolved with course of atb, sooner if not improving over next 3-4 days. - cefuroxime (Ceftin) 500 MG tablet; Take 1 tablet (500 mg) by mouth in the morning and 1 tablet (500 mg) before bedtime. Do all this for 10 days. Dispense: 20 tablet; Refill: 0 documented in this encounter [facility] 09-12-2023 Note HNO ID: [id number] Author: MARIO SANTIAGO MD Service: ? Author Type: Physician Type: Progress Notes Filed: 09/12/2023 10:17 Note Text: This was a virtual visit. I have communicated my name and active licensure. The patient's identity and physical location were verified at the time of this visit. Either the patient or their legal outbound call center representative has been informed of the risks and benefits of -- and alternatives to -- treatment through a remote evaluation and consents to proceed with the evaluation remotely. Endocrinology Metabolism [place] [facility] Mario Santiago M.D. Section of Endocrine Surgery and Advanced Laparoscopic Surgery [address] [place] [address], [place] [address] ENDOCRINE SURGERY NEW CONSULTATION NAME: Heidi Joy CLINIC NO: [id number] : 1990 Surgeon: Dr. Mario Santiago REFERRING PROVIDER: Vikki Balderrama [id number] [address] The patient was referred by the above provider and my findings and recommendations will be communicated by way of the shared medical record. HPI: Heidi Joy was evaluated today for a consultation regarding a Left benign adrenal adenoma. On a CT Jun 2023, it measured 15.2 X 23.2 mm with a density of 1.97 HU. This was detected in 2018 and was told that this was benign. She had bariatric surgery in December 2022 and then was found to have low K levels. She had low K for 6 years and HTN for 6 years. She is on 3 antihypertensives and K pills. PMH: PAST MEDICAL HISTORY Diagnosis Date Kidney stones Malignant brain tumor (HCC) 08/[address] Lema Microcytic anemia Otalgia of right ear PCOS (polycystic ovarian syndrome) Plantar fasciitis PSH: No past surgical history on file. Medications: Current Outpatient Medications on File Prior to Visit Medication Sig busPIRone (BUSPAR) 10 mg tablet TAKE 1 TABLET (10 MG) BY MOUTH IN THE MORNING AND BEFORE BEDTIME hydrALAZINE (APRESOLINE) 100 mg tablet Take 1 tablet by mouth two times a day. carvedilol (COREG) 25 mg tablet Take 1 tablet by mouth two times a day. gabapentin (NEURONTIN) 400 mg capsule 1 capsule. lamoTRIgine (LAMICTAL) 150 mg tablet Take 150 mg by mouth. lurasidone (LATUDA) 60 mg tab tablet Take 60 mg by mouth. REXULTI 1 mg tablet TAKE 1 TABLET BY MOUTH ONCE DAILY AT THE SAME TIME potassium chloride ER (KLOR-CON) 20 mEq tablet Take 20 mEq by mouth. SUMAtriptan (IMITREX) 100 mg tablet TAKE 1 TAB AT MIGRAINE ONSET, MAY REPEAT IN 2 HOURS NEEDED, MAX 2 TABS IN 24 HOURS zolpidem (AMBIEN) 10 mg Ferrous Sulfate 27 mg iron tab Take by mouth twice daily. No current facility-administered medications on file prior to visit. All: ALLERGIES No Known Allergies SH: Social History Tobacco Use Smoking status: Never Smokeless tobacco: Never Vaping Use Vaping Use: Never used Substance Use Topics Alcohol use: Yes Drug use: Never FH: Pertinent history above; otherwise, non-contributory REVIEW OF SYSTEMS: GENERAL: Well-appearing, no malaise or fevers RESPIRATORY: Negative for cough, hemoptysis, wheezing, or resting dyspnea CARDIOVASCULAR: Negative for resting chest pain PHYSICAL EXAM: On physical exam, Heidi Joy is well appearing, alert, and oriented and appears euthyroid. IMAGING: CT of Adrenals LABS: Component Latest Ref Rng AND Units 08/30/2023 09/06/2023 09/10/2023 Protein, Total 6.3 - 8.0 g/dL 6.7 [...] 12 Creatinine 0.58 - 0.96 mg/dL 0.66 0.90 Sodium 136 - 144 mmol/L 146 (H) Potassium 3.7 - 5.1 mmol/L 2.8 (L) Chloride 97 - 105 mmol/L 109 (H) CO2 22 - 30 mmol/L 27 Anion Gap 9 - 18 mmol/L 10 eGFR >=60 mL/min/1.73mA? 120 87 Creatinine 24 hr Ur 0.800 - 1.800 g/24 hr 1.100 Creat Clearance 75.0 - 115.0 mL/min 65.9 (L) Period hr 24 Urine Volume 24 hour mL 2,100 Metanephrine, Plasma 12 - 67 pg/mL 28 Normetanephrine, Free Plasma 18 - 101 pg/mL 84 Direct Renin 4.2 - 52.2 pg/mL <2.1 (L) Patient Upright or Supine Upright ACTH 7.2 - 63.3 pg/mL 22.2 Aldosterone 0.0 - <35.4 ng/dL 79.8 (H) Cortisol 4.8 - 19.5 ug/dL 9.5 DHEA-S 98.8 - 340.0 ug/dL 188.1 Dexamethasone ng/dL 236.1 Cortisol,ON DEX,Post <1.8 ug/dL 0.9 She has lost 100 lbs after gastric bypass lap. 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 PLAN: Will do an AVS to lateralize the side that is dominantly producing the hormone and then plan the surgical procedure. She agrees. Will set the AVS up. I appreciate being involved in the care of your patient, and please feel free to contact me should you have additional questions. I spent a total of 45 minutes on the date of the service which included prep (more content not included)... [facility] 09-12-2023 History of Present illness Narrative This was a virtual visit. I have communicated my name and active licensure. The patient's identity and physical location were verified at the time of this visit. Either the patient or their legal outbound call center representative has been informed of the risks and benefits of -- and alternatives to -- treatment through a remote evaluation and consents to proceed with the evaluation remotely. Endocrinology Metabolism [place] [facility] Mario Santiago M.D. Section of Endocrine Surgery and Advanced Laparoscopic Surgery [address] [place] [address], [place] [address] ENDOCRINE SURGERY NEW CONSULTATION NAME: Heidi Joy CLINIC NO: [id number] : 1990 Surgeon: Dr. Mario Santiago REFERRING PROVIDER: Vikki Balderrama [address] [place] [address] The patient was referred by the above provider and my findings and recommendations will be communicated by way of the shared medical record. HPI: Heidi Joy was evaluated today for a consultation regarding a Left benign adrenal adenoma. On a CT Jun 2023, it measured 15.2 X 23.2 mm with a density of 1.97 HU. This was detected in 2018 and was told that this was benign. She had bariatric surgery in December 2022 and then was found to have low K levels. She had low K for 6 years and HTN for 6 years. She is on 3 antihypertensives and K pills. PMH: PAST MEDICAL HISTORY Diagnosis Date Kidney stones Malignant brain tumor (HCC) 08/[address] Lema Microcytic anemia Otalgia of right ear PCOS (polycystic ovarian syndrome) Plantar fasciitis PSH: No past surgical history on file. Medications: Current Outpatient Medications on File Prior to Visit Medication Sig busPIRone (BUSPAR) 10 mg tablet TAKE 1 TABLET (10 MG) BY MOUTH IN THE MORNING AND BEFORE BEDTIME hydrALAZINE (APRESOLINE) 100 mg tablet Take 1 tablet by mouth two times a day. carvedilol (COREG) 25 mg tablet Take 1 tablet by mouth two times a day. gabapentin (NEURONTIN) 400 mg capsule 1 capsule. lamoTRIgine (LAMICTAL) 150 mg tablet Take 150 mg by mouth. lurasidone (LATUDA) 60 mg tab tablet Take 60 mg by mouth. REXULTI 1 mg tablet TAKE 1 TABLET BY MOUTH ONCE DAILY AT THE SAME TIME potassium chloride ER (KLOR-CON) 20 mEq tablet Take 20 mEq by mouth. SUMAtriptan (IMITREX) 100 mg tablet TAKE 1 TAB AT MIGRAINE ONSET, MAY REPEAT IN 2 HOURS NEEDED, MAX 2 TABS IN 24 HOURS zolpidem (AMBIEN) 10 mg Ferrous Sulfate 27 mg iron tab Take by mouth twice daily. No current facility-administered medications on file prior to visit. All: ALLERGIES No Known Allergies SH: Social History Tobacco Use Smoking status: Never Smokeless tobacco: Never Vaping Use Vaping Use: Never used Substance Use Topics Alcohol use: Yes Drug use: Never FH: Pertinent history above; otherwise, non-contributory REVIEW OF SYSTEMS: GENERAL: Well-appearing, no malaise or fevers RESPIRATORY: Negative for cough, hemoptysis, wheezing, or resting dyspnea CARDIOVASCULAR: Negative for resting chest pain PHYSICAL EXAM: On physical exam, Heidi Joy is well appearing, alert, and oriented and appears euthyroid. IMAGING: CT of Adrenals LABS: Component Latest Ref Rng & Units 08/30/2023 09/06/2023 09/10/2023 Protein, Total 6.3 - 8.0 g/dL 6.7 [...] 12 Creatinine 0.58 - 0.96 mg/dL 0.66 0.90 Sodium 136 - 144 mmol/L 146 (H) Potassium 3.7 - 5.1 mmol/L 2.8 (L) Chloride 97 - 105 mmol/L 109 (H) CO2 22 - 30 mmol/L 27 Anion Gap 9 - 18 mmol/L 10 eGFR >=60 mL/min/1.73m 120 87 Creatinine 24 hr Ur 0.800 - 1.800 g/24 hr 1.100 Creat Clearance 75.0 - 115.0 mL/min 65.9 (L) Period hr 24 Urine Volume 24 hour mL 2,100 Metanephrine, Plasma 12 - 67 pg/mL 28 Normetanephrine, Free Plasma 18 - 101 pg/mL 84 Direct Renin 4.2 - 52.2 pg/mL <2.1 (L) Patient Upright or Supine Upright ACTH 7.2 - 63.3 pg/mL 22.2 Aldosterone 0.0 - <35.4 ng/dL 79.8 (H) Cortisol 4.8 - 19.5 ug/dL 9.5 DHEA-S 98.8 - 340.0 ug/dL 188.1 Dexamethasone ng/dL 236.1 Cortisol,ON DEX,Post <1.8 ug/dL 0.9 She has lost 100 lbs after gastric bypass lap. 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 PLAN: Will do an AVS to lateralize the side that is dominantly producing the hormone and then plan the surgical procedure. She agrees. Will set the AVS up. I appreciate being involved in the care of your patient, and please feel free to contact me should you have additional questions. I spent a total of 45 minutes on the date of the service which included preparing to see the patient, [id number] patient care, completing clinical documentation, obtaining and/or reviewing separately obtained history, counseling and educating the patient/family/caregiver, ordering medications, tests, or procedures, communicating with other HCPs (not separately reported), independently interpreting results (not separately reported), communicating results to the patient/family/caregiver, and care coordination (not separately reported). Sincerely, Mario Santiago MD 09/12/2023 CC: Vikki Balderrama [id number] [id number] documented in this encounter [place] 09-09-2023 Evaluation note Encounter Date Diagnosis Assessment Notes Sep, Hypokalemia (ICD-10 - E87.6) She has hypertension with hypokalemia and high 24-hour urinary aldosterone level consistent with primary hyperaldosteronism. Her 24-hour urinary potassium may be low due to the critically low serum potassium. She is also reported to have elevated serum aldosterone. She was seen by the endocrine at [facility] and now referred to the surgery for surgical adrenalectomy. Advised her to continue follow-up with endocrine and surgery. Continue oral potassium. Sep, Metabolic alkalosis (ICD-10 - E87.3) She has a metabolic alkalosis likely due to the primary hyperaldosteronism. Sep, HTN (hypertension ) (ICD-10 - I10) Her blood pressure is high but she appears to be euvolemic. She is currently taking multiple antihypertensive medication and reported blood pressure still runs high. She has a primary hyperaldosteronism will benefit with surgical adenectomy for better blood pressure control. Will hold on to add aldosterone antagonist as she is scheduled to see general surgery for evaluation. Sep, Adrenal nodule (ICD-10 - E27.9) Continue follow-up with endocrine at [facility]. Sep, Other Patient was advised due to the primary hyperaldosteronism she can follow-up endocrine. She can refer to our office in future if needed. [email or web address] Other 02-02-2024 Miscellaneous Notes* Addendum Note - Valarie Wharton - 09/06/2023 8:59 AM ESTAddended by: VALARIE WHATRON on: 09/06/2023 08:59 AM Modules accepted: Orders * Telephone Encounter - Valarie Wharton - 09/06/2023 8:51 AM EST 09/06/2023 INTAKE PENDING.NEED 24HR URINE-LFT MSG ON VMX AND SENT MYCHART MSG. ENDOCRINE SURGERY PATIENT WORKSHEET Initial Call Date: September 06, 2023 Reason for Consult/ Referral: Adrenal Mass PATIENT DEMOGRAPHICS Name: Heidi Joy [facility]#: [id number] : 1990 AGE: [age] year old Contact Numbers: Home: (home) Work: There is no work phone number on file. PATIENT PHYSICIAN INFORMATION Referring Doctor: Address: Phone: [employer] Inspector: Address: Phone: PCP: Immanuel Kuhn [address] [place] [address] PAST TREATMENT Office notes: SEE EPIC Medications: [...] - 340.0 ug/dL 188.1 Imaging Reports: SEE [facility] CD of Images: SEE [facility] FNA: no FNA Slides: N/A Has the patient ever had thyroid or parathyroid surgery before: No Operative Reports: NONE AVAILABLE Pathology Reports: NONE AVAILABLE documented in this [place]01-16-2024 NoteHNO ID: [id number] Author: VIKKI BALDERRAMA MD Service: ? Author Type: Physician Type: Progress Notes Filed: 08/25/2023 22:12 Note Text: Endocrinology and Metabolism [place] Initial Clinic Visit Note Virtual Visit (Audio/Visual) [...] visit. Either the patient or their legal outbound call center representative has been informed of the risks [...] and nephrology. She recently met with a commercial specialist and was recommended to undergo some work-up. [...] imaging is around 5- (more content not included)...[facility]01-16-2024 Instructions* Patient Instructions* Vikki Balderrama MD - 08/20/2023 2:03 PM [...] higher amounts than normal. Both cancerous and non- cancerous tumors can produce too much hormone.Tumors can sometimes make too much of more [...] or other hormone problems. There are a numberof causes of adrenal tumors including: An adenoma [...] repeat hormone testing and radiologic imaging. Source: https://www.endocrine.org/patient-engagement/endocrine-library/adrenal-incidenta anupama Adrenal mass evaluation Prevalence of adrenal tumors discovered on cross-sectional imaging is around 5- 10%. Most of adrenaltumors are benign (92%), but 8% can be cancerous. Adrenal tumors can be non-functioning or secrete adrenal hormones in excess ( up to 50% of adrenal tumors). In any patient with adrenal mass, 2 questions need to be answered: 1) Is the adrenal mass malignantor benign? And 2) Is the adrenal mass [...] suppression, and baseline ACTH and DHEAS on adifferent morning) - needed in any asymptomatic or [...] then it means that you could be over- producing cortisol and moretesting may be done to confirm. Directions for dexamethasone suppression test: 1. Take dexamethasone 1-mg tab by mouth at 11 PM the evening before your test. 2. Go to the lab the next morning and have your blood drawn at ~8 AM. *Do not eat or drink anythingother than water from the time you take [...] to let me know documented in this [place]01-16-2024 History of Present illness Narrative* Vikki Balderrama MD - 08/20/2023 1:43 PM EST Endocrinology and Metabolism [place] Initial Clinic Visit Note Virtual Visit (Audio/Visual) I have discussed the nature of this visit with the patient which will occur via [facility] [employer] (Phone, Virtual Visit) and he agrees to proceed with this interaction . I have communicated my name and active licensure. The patient's identity and physical location wereverified at the time of this visit. Either the patient or their legal outbound call center representative has been informed of the risks and benefits of -- and alternatives to -- treatment through a remote evaluation andconsents to proceed with the evaluation remotely. NAME: [...] and nephrology. She recently met with a commercial specialist and was recommended to undergo some work-up. [...] delayed Hounsfield units of -44 absolute washout of143.5% and relative washout of 113.8%. Postsurgical changes of the stomach. The liver, gallbladder,spleen, pancreas, and right adrenal gland are within [...] discovered on cross-sectional imaging is around 5- 10%. Most of adrenaltumors are benign (92%), but 8% can be cancerous. Adrenal tumors can be non-functioning or secrete adrenal hormones in excess ( up to 50% of adrenal tumors). In any patient with adrenal mass, 2 questions need to be answered: 1) Is the adrenal mass malignantor benign? And 2) Is the adrenal mass [...] suppression, and baseline ACTH and DHEAS on adifferent morning) - needed in any asymptomatic or [...] agreed to get the labs done at [facility], I provided her with the lab phone number to make an appointment. 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 Aug, HTN (hypertension) (ICD-10 - I10) Her blood pressure is [...] of the adrenal nodule with serial imaging. [email or web address] Other 04-03-2023 NoteIn person visit Chief complaint: follow up for prior right frontal glioma ALATNA: 32 y/o woman - she had prior [...] repeat MRI brain w/wout contrast. Ravindra Lema [facility] NoteIn person visit Chief complaint: known olidodendroglioma ALATNA: 32 y/o Left handed - she does not work. 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 She had migraines and high blood pressure [...] after the MRI is completed. Ravindra Lema MDUnProMedica Bay Park HospitalChief complaint Narrative - ReportedRACARL JOY is being seen for a consultation for. POC Dr. Benson, [facility] Bariatrics- Bariatric sxMP-Located Within [facility]-[place] [address] DO Work Phone: Evaluation noteNo assessment information available [facility] Work Phone: Evaluation noteNo InformationNort The [employer] Other Evaluation note* Diagnosis Adenoma of left adrenal gland- Primary Benign neoplasm of adrenal gland documented in this encounter [place]* Diagnosis Adenoma of left adrenal gland- Primary Benign neoplasm of adrenal gland documented in this encounter [place]* Diagnosis Primary hyperaldosteronism (HCC)- Primary Hyperaldosteronism, unspecified Adenoma of left adrenal gland Benign neoplasm of adrenal gland documented in this encounter [place]* Diagnosis Generalized anxiety disorder (CMS/HCC) Generalized anxiety disorder Bipolar affective disorder, currently depressed, mild (CMS/HCC) Bipolar I disorder, most recent episode (or current) depressed, mild [facility] Diagnosis Acute bronchitis, unspecified organism- Primary documented in this encounter [facility] general Narrative - Reported* Type Description Date [...] 2 DIALBETES MYRA LITUS WITHOUT COMPLICATION, WITHOUT UTILITY [employer] CURRENT USE OF INSULIN Medical History MICROSYTIC ANEMIA Medical History BIPOLAR AFFECTIVE DISORDER, CURR ENTLY DEPRESSED, MILD Medical History CANNABIS ABUSE Medical History MALIGNANT NEOPLASM OF BRAIN Surgical History brain tumor removed malignant 0 1-2019 Surgical History DILATION AND CURETTAGE ESOPHAGO GASTRODUODENOSCOPY Surgical History INGROWN TOENAIL Surgical History ANKLE SCOPE PLANTAR FASCIOTOMY 2017 Surgical History RIGHT FRONTAL LOBEECTOMY 2019 Surgical History ENDOSCOPIC PLANTAR FASCIOTOMY 2 023 Surgical History GASTRIC BYPASS 12/2022 Hospitalization History SEE ABOVE [email or web address] Other History general Narrative - Reported* Type Description Date [...] 2 DIALBETES MYRA LITUS WITHOUT COMPLICATION, WITHOUT PENITENTIARY CURRENT USE OF INSULIN Medical History MICROSYTIC ANEMIA Medical History BIPOLAR AFFECTIVE DISORDER, CURR ENTLY DEPRESSED, MILD Medical History CANNABIS ABUSE Medical History MALIGNANT NEOPLASM OF BRAIN Medical History Potassium infusions weekly at [facility] Surgical History brain tumor removed malignant 0 Surgical History DILATION AND CURETTAGE ESOPHAGO GASTRODUODENOSCOPY Surgical History INGROWN TOENAIL Surgical History ANKLE SCOPE PLANTAR FASCIOTOMY 2017 Surgical History RIGHT FRONTAL LOBEECTOMY 2018 Surgical History ENDOSCOPIC PLANTAR FASCIOTOMY 2 023 Surgical History GASTRIC BYPASS 12/2022 Hospitalization History SEE ABOVE Hospitalization History Sue for low potassi um 08/2023 [email or web address] Other History of Present illness Narrative* Patient [...] medication 9 4. Follow-up in 9 months [facility] Doshi DO Work Phone: Summary Purpose Family [...] and content) DATE CREATED AUTHOR 01/29/2018 [facility] DATE CREATED AUTHOR AUTHOR'S ORGANIZ ATION 03/21/2020 [facility] DATE CREATED AUTHOR AUTHOR'S ORGANIZ ATION 09/12/2021 [facility] DATE CREATED AUTHOR AUTHOR'S ORGANIZ ATION 10/06/2021 [facility] dical Specialist DATE CREATED AUTHOR AUTHOR'S ORGANIZ ATION 06/07/2022 [employer] DATE CREATED AUTHOR AUTHOR'S ORGANIZ ATION 11/19/2022 [facility] DATE CREATED AUTHOR AUTHOR'S ORGANIZ ATION 12/14/2022 [facility] DATE CREATED AUTHOR AUTHOR'S ORGANIZ ATION 03/19/2023 [facility] DATE CREATED AUTHOR AUTHOR'S ORGANIZ ATION 09/05/2023 [facility] DATE CREATED AUTHOR AUTHOR'S ORGANIZ ATION 09/17/2023 [facility] DATE CREATED AUTHOR AUTHOR'S ORGANIZ ATION 10/02/2023 [facility] dical Specialists EPIC Care Teams (unrecognized [...] Active Manasa Rhodes DPM Attending Provider Active Logistics Planning Manager Relationship Specialty Start Date End Date Immanuel Kuhn DO [address] [place] [address] PCP - General Family Medicine 10/23/12 Esther Angeles MD [address] [place] [phone] Referring Obstetrics 01/28/20 Татьяна Carter PA-C [address] [place] [address] Referring Physician Band Attacher 08/08/23 Team Status: Inactive Member Role Status Dates Zara Ralph MD Attending Provider Active Start : August 19, 2023 End: August 19, 2023 Team Status: Inactive Member Role Status Dates Immanuel Kuhn DO Primary Care Provider Active St art: August 30, 2023 End: August 30, 2023 Zara Ralph MD Attending Provider Active Start : August 30, 2023 End: August 30, 2023 Logistics Planning Manager Relationship Specialty Start Date End Date Immanuel Kuhn DO [address] [place] [address] PCP - General Family Medicine 10/23/12 Esther Angeles MD [address] [place] [phone] Referring Obstetrics 01/28/20 Татьяна Carter PA-C [address] [place] [address] Referring Physician Band Attacher 08/08/23 Logistics Planning Manager Relationship Specialty Start Date End Date Immanuel Kuhn DO [address] [place] [address] PCP - General Family Medicine 10/23/12 Esther Angeles MD [address] [place] [phone] Referring Obstetrics 01/28/20 Татьяна Carter PA-C [address] [place] [address] Referring Physician Band Attacher 08/08/23 Logistics Planning Manager Relationship Specialty Start Date End Date Immanuel Kuhn DO [address] [place] [address] PCP - General Family Medicine 12/25/22 Татьяна Carter PA [address] [place] [address] PCP - [facility] 02/02/23 Logistics Planning Manager Relationship Specialty Start Date End Date Immanuel Kuhn DO [address] [place] [address] PCP - General Family Medicine 10/23/12 Esther Angeles MD [address] [place] [phone] Referring Obstetrics 01/28/20 Татьяна Carter PA-C [address] [place] [address] Referring Physician Band Attacher 08/08/23 Logistics Planning Manager Relationship Specialty Start Date End Date Immanuel Kuhn DO [address] [place] [address] PCP - [facility] 12/25/22 Татьяна Carter, PA [address] [place] [address] PCP - [facility] 02/02/23 Logistics Planning Manager Relationship Specialty Start Date End Date Immanuel Kuhn DO [address] [place] [address] PCP - [facility] 12/25/22 Татьяна Carter, PA [address] [place] [place] [address] PCP - [facility] 02/02/23 Logistics Planning Manager Relationship Specialty Start Date End Date Immanuel Kuhn DO [address] [place] [address] PCP - [facility] 12/25/22 Татьяна Carter, PA [address] [facility] [place] [address] PCP - [facility] 02/02/23 Goals (unrecognized section and content) Goals may be documented in a n alternate sectionGoals may be documented in an alternate sectionNo InformationNo InformationGoals may be documented in an alternate sectionNo Information REASON FOR VISIT (unrecogniz ed section and content) Reason Comments New Patient Adrenal Reason Comments Appointment Called patient and l eft a message that patient was added to 's schedule for a virtual appointment for 09/12 at 11AM per . Sent [employer] message and mailed out appointment reminder Reason Comments Consult FACE SHEET Reason Comments Adrenal Specialty Diagnoses / Procedures Referred By Contac t Referred To Contact Diagnoses Adenoma of left adrenal gland Procedures CONSULT TO ENDOCRINE SURGERY OFFICE/OUTPATIENT [facility] 60 [place] [id number] [id number] Referral ID Status Reason Start Date Expiration Date V isits Requested Visits Authorized [id number] Closed PCP Requested Referral 09/04/2023 09/03/2024 1 1 Reason Comments Follow-up Source Comments (unrecognize d section and content) In the event this informatio n is protected by the Federal Confidentiality of Alcohol and Drug Abuse Patient Records regulations: The Federal rules restrict any use of the information to criminally investigate or prosecute any alcohol or drug abuse patient.[place] the event this information is protected by the Federal Confidentiality of Alcohol and Drug Abuse Patient Records regulations: The Federal rules restrict any use of the information to criminally investigate or prosecute any alcohol or drug abuse patient.[place] the event this information is protected by the Federal Confidentiality of Alcohol and Drug Abuse Patient Records regulations: The Federal rules restrict any use of the information to criminally investigate or prosecute any alcohol or drug abuse patient.[place] the event this information is protected by the Federal Confidentiality of Alcohol and Drug Abuse Patient Records regulations: The Federal rules restrict any use of the information to criminally investigate or prosecute any alcohol or drug abuse patient.[place] FOR RECORDS PERTAINING TO PATIENTS WHO ARE [...] BE BASED ON THE PRIMARY CLINICAL RECORDS. [facility] [employer] [facility]. provides no warranty or guarantee of the accuracy or completeness of information in this document.
[2023-10-08 11:10] LABS: Potassium 2.2 mmol/L (3.5-5.1)
== END 2023-10-08 09:36 | disposition home or self-care (01) ==
LOC: LAB 09:35
PROVIDERS: PCP Family Medicine
DX: K90.9 Intestinal malabsorption, unspecified (principal); Z98.84 Bariatric surgery status; D50.9 Iron deficiency anemia, unspecified; I10 Essential (primary) hypertension; E87.6 Hypokalemia; K21.9 Gastro-esophageal reflux disease without esophagitis
CPT/HCPCS: 36415; 84132

== ENCOUNTER 2023-10-21 15:31 | Outpatient (OUT) | payer OTHER, SELFPAY ==
--- OUTSIDE RECORDS SUMMARY | 2023-10-21 15:48 | XMS_ITS | CCD ---
Author Name Unknown Address [address] [place] [address] Organization [facility] Care Team Providers Care Drill Press Hand Name Role Phone Spasic, Carmelo Unavailable Unavailable Zo Carmelo Unavailable Unavailable IMMANUEL KUHN Unavailable Unavailable Immanuel Kuhn Unavailable Unavailable Unavailable DO Immanuel Kuhn Primary Care Provider NETTIE Prakash Attending Provider [phone] REJI Rhodes Attending Provider RAVINDRA LEMA Referring [...] Primary Care Provider Esther Angeles MD Unavailable Татьяна Carter PA-C Unavailable DO Immanuel Khun Primary Care Provider MD Zara Ralph Attending Provider [phone] Manasa Dunaway Attending Unavailable Manasa Dunaway Admitting Unavailable Immanuel Kuhn Primary Care Unavailable Tiarra Prakash Attending Unavailable Tiarra Prakash Admitting Unavailable Immanuel Kuhn Primary Care Unavailable Immanuel Kuhn Primary Care Unavailable Zara Ralph Attending Unavailable Zara Ralph Admitting Unavailable Immanuel Kuhn DO Primary Care Provider Татьяна Angeles Unavailable VEERAMACSLICKENI, RAVALI Referring Unavailab IMMANUEL Garcia Primary Care Unavailable IMMANUEL KUHN Primary Care Unavailable IMMANUEL KUHN Primary Care Unavailable IMMANUEL KUHN Primary Care Unavailable VEERAMACHANENI, RAVALI Referring Unavailab MARIO Torres Attending Unavailable IMMANUEL KUHN Primary Care Unavailable ARMANDO CUNNINGHAM Referring Unavailable VEERAMACHANENI, RAVALI Attending Unavailab IMMANUEL Garcia Primary Care Unavailable VEERAMACHANENI, RAVALI Referring Unavailab IMMANUEL Garcia Primary Care Unavailable JUAN BARON Attending Unavailable MANASA DUNAWAY Referring Unavailable ТАТЬЯНА CARTER Attending Unavailable IMMANUEL KUHN Referring Unavailable MISSY, SHEILA L Attending Unavailable TRENTON, MANASA H Attending Unavailable GAGANDEEP DUNAWAYANDRA H Referring Unavailable BRAUN, SHEILA L Attending Unavailable BRAUN, SHEILA L Attending Unavailable GAGANDEEP DUNAWAYANDRA H Attending Unavailable BRAUN, SHEILA L Attending Unavailable BARBARA DIXON Attending Unavailable TRENTON, MANASA H Attending Unavailable BRAUN, SHEILA L Attending Unavailable BRAUN, SHEILA L Attending Unavailable BRAUN, SHEILA L Attending Unavailable IMMANUEL KUHN Referring Unavailable ALEX NAIK Attending Unavailable TRENTON, MANASA H Referring Unavailable JUAN BARON Attending Unavailable TRENTON, MANASA H Referring Unavailable JHONY GARCIA Attending Unavailable MANASA DUNAWAY Referring Unavailable JUAN BARON Attending Unavailable MANASA DUNAWAY Referring Unavailable Allergies Allergy Classification Reported Allergen(s) Allergy Type Date of Onset Reaction(s) Facility (1 source) No Known Medication Allergies; Translations: [No Known Medication Allergies] Propensity to adverse reactions to drug (disorder) [facility] Repository Medications Current Medications Medication [...] mouth in the morning. 0 Active End: 01-16-2024 take 1 tablet by mouth once daily, then take 0.81950766371439969 tablet by mouth once Norethindrone-Eth Estradiol (ALYACEN [...] oral tablet (15 sources) Atypical Antipsychotic Start: End: 024 take 1 tablet by mouth at mealtime lurasidone (Latuda) 60 MG tablet Indications: Bipolar disorder in partial remission, most recent episode unspecified type (CMS/HCC) TAKE 1 TABLET (60 MG) BY MOUTH IN THE MORNING. TAKE WITH MEALS. 90 tablet 0 08/29/2023 11/27/2023 Active Comment on above: Take 60 mg by mouth. magnesium oxide 400 mg oral capsule (11 sources) Start: take 1 capsule by mouth [...] release oral tablet (17 sources) Start: 04-27-20 take 1 tablet by [...] 27-Apr-2022 Active take 4 tablets by mo uth every twelve hours Potassium Chloride ER 10 MEQ 4 capsules with food Orally Twice a day Active take 1 tablet by rosita every [...] tablet (8 sources) Aldosterone Antagonist Start: 05-23-20 take 1 tablet by mouth once daily spironolactone (Aldactone) 50 MG tablet Indications: Hypokalemia TAKE 1 TABLET BY MOUTH EVERY DAY FOR 90 DAYS 90 tablet 1 05/23/2023 Active SUMAtriptan 100 mg oral tablet (15 sources) Serotonin-1b and Serotonin-1d Receptor Agonist Start: 08-12-19 24 SUMAtriptan (Imitrex) 100 MG tablet Indications: Migraine [...] Comment on above: Take 1 capsule by [facility] twice daily. 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 I will wait while you get a pen and paper, if instructions are not followed your procedure may need to be cancelled or rescheduled. Diet: Do not eat solid food after midnight the night before your procedure. You may have water until your arrival time. Medications: IF ok with your Prescribing Provider: RADIOLOGY RECOMMENDS THESE MEDICATION RESTRICTIONS Take all medications as usual. Medication pumps: Insulin pumps must be removed before entering the procedure room. Do you wear Neulasta Onpro? No If yes, the device must be removed before entering the procedure room. Contrast Dye Prep: Do you have a contrast dye allergy? No Labs: Lab work needs to be drawn prior to 10/22 at any [facility] Lab. Arrival: Please bring your Photo ID and Insurance Card. A general consent may need to be signed. Arrival at 10:30 AM to desk QB-1 ([facility]) and check in for your procedure. Admissions Officer/Transportation: How will you be arriving for your procedure? Private car. If you will be arriving at [facility] via ambulance or public transportation, please call to discuss. You will need a responsible adult to accompany you to and from the procedure. Your tractor trailer driver is required to stay with you until you are taken into the Procedure room. If you develop any of the following symptoms before your procedure, please call [phone]. Chills, joint pain, rash, sore throat, cough, loss of smell, reddened eyes, vomiting, abdominal pains, diarrhea, loss of taste, severe headache, weakness, bruising or bleeding, fever, muscle pain, shortness of breath Recovery expectations: You can expect to be at the hospital for the majority of the day. Please do not schedule any other appointments the day of your procedure. Special concerns: Do you use CPAP or BPAP? No If you use CPAP or BiPAP, please call to discuss. Written instructions provided to patient via MyChart If you have any questions please call [phone] Normal [facility] POTASSIUM BLDon 10-11-2023 Potassium [Moles/Vol] 2.6 mmol/L Low 3.7-5.1 [facility] Comment on above: Order Comment: Peter myles Type: BLOOD SPECIMEN Ordering Facility: [facility] Address: [address] [place] [address] Performed By: #### Jael NAVARRO 2143-01 #### [facility] CLIA [id number] [address] [place] [address] [place] ALL POTASSIUMon 09-12-2023 Interpretation and review of laboratory results Abnormal [facility] Potassium [Moles/Vol] 2.7 mmol/L Critically low 3.5 - 5.1 mmol/L [facility] Comment on above: RESULTS CALLED TO [facility] Aldost 24h Ur-mRateon 2023 Aldosterone (24H U) [Mass/Time] 63.6 ug/24hr High 3.0-<28.1 [facility] Comment on above: Order Comment: Peter myles Type: BLOOD SPECIMEN Ordering Facility: [facility] Address: [address] [place] [address] Performed By: #### Jael NAVARRO 2143-01 #### [facility] CLIA [id number] [address] [place] [address] [place] CATECHOLAMINES FRACTIONATED, URINE FREEon 09-10-2023 CATECHOLAMINES INTERPRETATION See Note Normal [facility] Comment on above: Order Comment: Peter myles Type: BLOOD SPECIMEN Ordering Facility: [facility] Address: [address] [place] [address] Result Comment: TEST INFORMATION: Catecholamines Fractionated, Urine [...] reference intervals for this test in the [facility] Test Directory (HOTEL Top-Level Domain). This test was developed and its performance characteristics determined by [facility]. It has not been cleared or approved by the US Food and Drug Administration. This test was performed in a CLIA certified laboratory and is intended for clinical purposes. Performed By: #### Jael NAVARRO 2143-01 #### [facility] CLIA [id number] [address] [place] [address] [place] DOPAMINE, UR 24HR 422 ug/d Normal 71-485 [facility] Comment on above: Order Comment: Speci men Type: BLOOD SPECIMEN Ordering Facility: [facility] Address: [address] [place] [address] Result Comment: REFE RENCE INTERVAL: Dopamine, Urine - ug/d Access complete set of age- and/or gender-specific reference intervals for this test in the [facility] Test Directory (HOTEL Top-Level Domain). Performed By: #### Jael NAVARRO 2143-01 #### [facility] CLIA [id number] [address] [place] [address] [place] DOPAMINE, UR PER VOL 201 ug/L Normal [facility] Comment on above: Order Comment: Speci men Type: BLOOD SPECIMEN Ordering Facility: [facility] Address: [address] [place] [address] Performed By: #### Jael NAVARRO 2143-01 #### [facility] CLIA [id number] [address] [place] [address] [place] DOPAMINE, UR RATIO TO TRANSPLANT NURSE 372 ug/g TRANSPLANT NURSE High 0-250 [facility] Comment on above: Order Comment: Speci men Type: BLOOD SPECIMEN Ordering Facility: [facility] Address: [address] [place] [address] Performed By: #### Jael NAVARRO 2143-01 #### [facility] CLIA [id number] [address] [place] [address] [place] EPINEPHRINE, UR 24HR 4 ug/d Normal 1-14 [facility] Comment on above: Order Comment: Speci men Type: BLOOD SPECIMEN Ordering Facility: [facility] Address: [address] [place] [address] Result Comment: REFE RENCE INTERVAL: Epinephrine, Urine - ug/d Access complete set of age- and/or gender-specific reference intervals for this test in the [facility] Test Directory (HOTEL Top-Level Domain). Performed By: #### Jael NAVARRO 2143-01 #### [facility] CLIA [id number] [address] [place] [address] [place] EPINEPHRINE, UR PER VOL 2 ug/L Normal C [facility] Comment on above: Order Comment: Speci men Type: BLOOD SPECIMEN Ordering Facility: [facility] Address: [address] [place] [address] Performed By: #### Jael NAVARRO 2143-01 #### [facility] CLIA [id number] [address] [place] [address] [place] EPINEPHRINE, UR RATIO TO TRANSPLANT NURSE 4 ug/g TRANSPLANT NURSE Normal 0-20 [facility] Comment on above: Order Comment: Speci men Type: BLOOD SPECIMEN Ordering Facility: [facility] Address: [address] [place] [address] Performed By: #### Jael NAVARRO, 2143-01 #### [facility] CLIA [id number] [address] [place] [address] [place] NOREPINEPHRINE, UR 24HR 21 ug/d Normal 14-120 C [facility] Comment on above: Order Comment: Speci men Type: BLOOD SPECIMEN Ordering Facility: [facility] Address: [address] [place] [address] Result Comment: REFE RENCE INTERVAL: Norepinephrine, Urine - ug/d Access complete set of age- and/or gender-specific reference intervals for this test in the [facility] Test Directory (HOTEL Top-Level Domain). Performed By: #### Jael NAVARRO 2143-01 #### [facility] CLIA [id number] [address] [place] [address] [place] NOREPINEPHRINE, UR PER VOL 10 ug/L Normal [facility] Comment on above: Order Comment: Speci men Type: BLOOD SPECIMEN Ordering Facility: [facility] Address: [address] [place] [address] Performed By: #### Jael NAVARRO 2143-01 #### [facility] CLIA [id number] [address] [place] [address] [place] NOREPINEPHRINE, UR RATIO TO TRANSPLANT NURSE 19 ug/g TRANSPLANT NURSE Normal 0-45 [facility] Comment on above: Order Comment: Speci men Type: BLOOD SPECIMEN Ordering Facility: [facility] Address: [address] [place] [address] Performed By: #### Jael NAVARRO 2143-01 #### [facility] CLIA [id number] [address] [place] [address] [place] CREATININE BLDon 09-10-2023 Creatinine [Mass/Vol] 0.90 mg/dL Normal 0.58-0.96 [facility] Comment on above: Order Comment: Speci men Type: BLOOD SPECIMEN Ordering Facility: [facility] Address: [address] [place] [address] Performed By: #### Jael NAVARRO 2143-01 #### [facility] CLIA [id number] [address] [place] [address] [place] Creatinine and Glomerular filtration rate.predicted panel (S/P/Bld) 87 mL/min/1.73m??? Normal >=60 [facility] Comment on above: Order Comment: Speci men Type: BLOOD SPECIMEN Ordering Facility: [facility] Address: [address] [place] [address] Result Comment: Rachel mated Glomerular Filtration Rate [...] accurately reflect actual GFR. Performed By: #### Jael NAVARRO, 2143-01 #### [facility] CLIA [id number] [address] [place] [address] [place] CREATININE CLEARANCE, UR 24H Diaz 09-10-2023 Creatinine (24H U) [Mass/Time] 1.100 g/24 hr Normal 0.800-1.80 0 [facility] Comment on above: Order Comment: Peter myles Type: BLOOD SPECIMEN Ordering Facility: [facility] Address: [address] [place] [address] Performed By: #### Jael NAVARRO, 2143-01 #### [facility] CLIA [id number] [address] [place] [address] [place] Creatinine renal clearance (24H U+S/P) [Vol/Time] 65.9 mL/min Low 75.0-115.0 [facility] Comment on above: Order Comment: Peter myles Type: BLOOD SPECIMEN Ordering Facility: [facility] Address: [address] [place] [address] Result Comment: Resu lt corrected for standard body surface area. Performed By: #### Jael NAVARRO, 2143-01 #### [facility] CLIA [id number] [address] [place] [address] [place] METANEPHRINES 24H URon 09-10 Metanephrines (24H U) [Mass/Time] 246 ug/24 hr Normal 140-785 [facility] Comment on above: Order Comment: Peter myles Type: BLOOD SPECIMEN Ordering Facility: [facility] Address: [address] [place] [address] Result Comment: Test performed at [facility] [place], [place] Disregard [facility] reference range. Smaller increases in metanephrine and/or [...] reference intervals for this test in the [facility] Test Directory (HOTEL Top-Level Domain). This test was developed and its performance characteristics determined by the [facility]. It has not been cleared or approved by the US Food and Drug Administration. This test was performed in a CLIA certified laboratory and is intended for clinical purposes. Performed By: #### Jael NAVARRO, 2143-01 #### [facility] CLIA [id number] [address] [place] [address] [place] NORMETANEPHRINES, UR 141 ug/24 hr Normal 88-444 Cl [facility] Comment on above: Order Comment: Speci men Type: BLOOD SPECIMEN Ordering Facility: [facility] Address: [address] [place] [address] Performed By: #### Jael NAVARRO, 2143-01 #### [facility] CLIA [id number] [address] [place] [address] [place] PERIOD (HRS) 24 hr Normal [facility] Comment on above: Order Comment: Speci men Type: BLOOD SPECIMEN Ordering Facility: [facility] Address: [address] [place] [address] Performed By: #### Jael NAVARRO, 2143-01 #### [facility] CLIA [id number] [address] [place] [address] [place] Specimen volume (24H U) 2.1 L Normal [facility] Comment on above: Order Comment: Speci men Type: BLOOD SPECIMEN Ordering Facility: [facility] Address: [address] [place], [place] [id number] Performed By: #### Jael NAVARRO, 2143-01 #### [facility] CLIA [id number] [address] [place] [address] [place] URINE FREE CORTISOL BY LC-MS /MSon 09-10-2023 CORTISOL UG/G TRANSPLANT NURSE, UR (UFRCRT) 16.94 ug/g TRANSPLANT NURSE Normal [facility] Comment on above: Order Comment: Speci men Type: TIMED URINE SPECIMEN Ordering Facility: [facility] Address: [address] [place] [address] Result Comment: Refe rence Interval: Cortisol ug/g returns processor Female Prepubertal: Less than 25 ug/g returns processor 18 years and older: Less than 24 ug/g returns processor : Less than 59 ug/g returns processor Male Prepubertal: Less than 25 ug/g returns processor 18 years and older: Less than 32 ug/g returns processor Performed By: #### U FRCRT #### [facility] CLIA [id number] [address] [place] [address] CREATININE UR, PER 24H 1134 mg/d Normal 700-1600 [facility] Comment on above: Order Comment: Speci men Type: TIMED URINE SPECIMEN Ordering Facility: [facility] Address: [address] [place] [address] Performed By: #### U FRCRT #### [facility] CLIA [id number] [address] [place] [address] Order Comment: Speci men Type: BLOOD SPECIMEN Ordering Facility: [facility] Address: [address] [place] [address] Result Comment: Perf ormed By: [facility] [address] [place] [address] Shelter Advocate: Adis Casillas MD, PhD CLIA Number: [id number] Performed By: #### Jael NAVARRO, 2143-01 #### [facility] CLIA [id number] [address] [place] [address] [place] CREATININE UR, PER VOLUME 54 mg/dL Normal [facility] Comment on above: Order Comment: Speci men Type: TIMED URINE SPECIMEN Ordering Facility: [facility] Address: [address] [place] [address] Performed By: #### U FRCRT #### [id number] [address] [place] [address] Order Comment: Speci men Type: BLOOD SPECIMEN Ordering Facility: [facility] Address: [address] [place] [address] Performed By: #### Jael NAVARRO, 2143-6 #### [facility] CLIA [id number] [address] [place] [address] [id number] [place] [address] [place] FREE CORTISOL UG/DAY, URINE 19.2 ug/d Normal <=45.0 [facility] Comment on above: Order Comment: Speci men Type: TIMED URINE SPECIMEN Ordering Facility: [facility] Address: [address] [place] [address] Performed By: #### U FRCRT #### [id number] [address] [place] [address] FREE CORTISOL UG/L, URINE 9.15 ug/L Normal [facility] Comment on above: Order Comment: Speci men Type: TIMED URINE SPECIMEN Ordering Facility: [facility] Address: [address] [place] [address] Performed By: #### U FRCRT #### [facility] [id number] [address] [place] [address] HOURS COLLECTED 24 hr Normal [facility] Comment on above: Order Comment: Speci men Type: TIMED URINE SPECIMEN Ordering Facility: [facility] Address: [address] [place] [address] Result Comment: Per 24h calculations are provided to aid interpretation for collections with a duration of 24 hours and an average daily urine volume. For specimens with notable deviations in collection time or volume, ratios of analytes to a corresponding urine creatinine concentration may assist in result interpretation. Performed By: #### U FRCRT #### [facility] CLIA [id number] [address] [place] [address] Order Comment: Speci men Type: BLOOD SPECIMEN Ordering Facility: [facility] Address: [address] [place] [address] Performed By: #### D HEAS, 3-6 #### [facility] CLIA [id number] [address] [place] [address] [place] TOTAL VOLUME 2100 mL Normal [facility] Comment on above: Order Comment: Speci men Type: TIMED URINE SPECIMEN Ordering Facility: [facility] Address: [address] [place] [address] Performed By: #### U FRCRT #### [facility] CLIA [id number] [address] [place] [address] Order Comment: Speci men Type: BLOOD SPECIMEN Ordering Facility: [facility] Address: [address] [place] [address] Performed By: #### Jael NAVARRO, 2142-6 #### [facility] CLIA [id number] [address] [place] [address] [place] UR MER FREE INTERP See Note Normal [facility] Comment on above: Order Comment: Speci men Type: TIMED URINE SPECIMEN Ordering Facility: [facility] Address: [address] [place] [address] Result Comment: INTE RPRETIVE INFORMATION: Cortisol Urine Free by LC-MS/MS Access complete set of age- and/or gender-specific reference intervals for this test in the [facility] Test Directory (HOTEL Top-Level Domain). This test was developed and its performance characteristics determined by [facility]. It has not been cleared or approved by the US Food and Drug Administration. This test was performed in a CLIA certified laboratory and is intended for clinical purposes. Performed By: [facility] [address] [place] [address] Shelter Advocate: Adis Casillas MD, PhD CLIA Number: [id number] Performed By: #### U FRCRT #### [facility] CLIA [id number] [address] [place] [address] [facility] CORTIS P DEX SERPL-MCNCo n 09-06-2023 [facility] CORTIS P DEX SERPL-MCNC 0.9 ug/dL NINF - 1.8 ug/dL [facility] Comment on above: After overnight 1 mg dexamethasone, an smash fixer cortisol of <1.8 ug/dL may indicate an adequate cortisol suppression. This result should be interpreted within the clinical context and other test results. Samra et al. Evidence for the Low Dose Dexamethasone Suppression Test to Screen for Mohit's Syndrome - Recommendations for a Protocol for [facility] Laboratories. 1997 [facility]. Clin. Biochem. 34 [phone]. Specimen Type: BLOOD SPECIMEN Ordering Facility: [facility] Address: [address], [place] [address] Original Ordering Provider: VIKKI BALDERRAMA [facility] 09-06-2023 [facility] Telephone ([facility]) -- EHIDI JOY ([id number]) 1990 F Date Time Provider Department 09/06/23 MARIO SANTIAGO During your visit today, we recorded the following information about you: Pedro Whartonoinette 09/06/2023 8:57 AM Signed 09/06/2023 INTAKE PENDING.NEED 24HR URINE-LFT MSG ON VMX AND SENT MYCHART MSG. ENDOCRINE SURGERY PATIENT WORKSHEET Initial Call Date: September 06, 2023 Reason for Consult/ Referral: Adrenal Mass PATIENT DEMOGRAPHICS Name: Heidi Joy [facility]#: [id number] : 1990 AGE: [age] year old Contact Numbers: Home: (home) Work: There is no work phone number on file. PATIENT PHYSICIAN INFORMATION Referring Doctor: Address: Phone: Staple Cutter: Address: Phone: PCP: Immanuel Kuhn [address] [facility] [address] [place] [address] PAST TREATMENT Office notes: SEE EPIC Medications: [...] - 340.0 ug/dL 188.1 Imaging Reports: [facility] CD of Images: [facility] FNA: no FNA Slides: N/A Has [...] Order(s):CATECHOLAMINES FRACTIONATED, URINE FREE [SQURCAT2] Order #: [id number]. #:[id number] ALDOSTERONE 24 HR, URINE [SQUALDO] Order #: [id number]. #:[id number] CREAT CLEAR 24 HOUR [SQUCCLR] Order #: [id number] URINE FREE CORTISOL BY LC-MS/MS [SQUFRCRT] Order #: [id number]. #:[id number] METANEPHRINES 24H UR [SQUMETAN] Order #: [id number]. #:[id number] CREATININE BLD [SQCRET] Reflex Order#: [id number] (Ord#:[id number]) CREATININE CLEARANCE, UR 24HR [[id number]] Reflex Order#: [id number] (Ord#:[id number]) Prescriptions as of 09/06/2023 - busPIRone (BUSPAR) [...] Encounter Status:Closed by VALARIE WHARTON on 09/06/23 [facility] Tamie Santiagol-Fara Cortisol post dose dexamethasone [Mass/Vol] 0.9 ug/dL Normal <1.8 [facility] Comment on above: Order Comment: Peter myles Type: BLOOD SPECIMEN Ordering Facility: [facility] Address: [address] [place] [address] Result Comment: Afte r overnight 1 mg dexamethasone, an smash fixer cortisol of <1.8 ug/dL may indicate an adequate cortisol suppression. This result should be interpreted within the clinical context and other test results. Samra et al. Evidence for the Low Dose Dexamethasone Suppression Test to Screen for Lewes's Syndrome - Recommendations for a Protocol for Biochemistry Laboratories. 1996 Sybil. Clin. Biochem. 34 222-229. Performed By: #### 4 7851-1 #### [facility] CLIA [id number] [address] [place] [address] OF [facility] DEXAMETHASONEon 09-06-2023 DEXAMETHASONE 236.1 ng/dL Normal [facility] Comment on above: Order Comment: Peter myles Type: BLOOD SPECIMEN Ordering Facility: [facility] Address: [address] [place] [address] Result Comment: INTE RPRETIVE INFORMATION: Dexamethasone, Serum [...] developed and its performance characteristics determined by [facility]. It has not been cleared or approved by the US Food and Drug Administration. This test was performed in a CLIA certified laboratory and is intended for clinical purposes. Performed By: [facility] [address] [place] [address] Shelter Advocate: Adis Casillas MD, PhD CLIA Number: [id number] Performed By: #### D RAMON, 2143-6 #### [facility] CLIA [id number] [address] [place] [address] [place] CNPNon 09-05-2023 CNPN Telephone (GENSMN) -- CEFERINOHEIDI Mirza ([id number]) 1990 F Date Time Provider Department 09/05/23 [...] for 09/12 at 11AM per . Sent Bi02 Medical message and mailed out appointment reminder Prescriptions [...] Encounter Status:Closed by NIRMAL CHOUDHURY on 09/05/23 [facility] CNPSheri 09-04-2023 CNPN Telephone (STED) -- HEIDI JOY ([id number]) 1990 F Date Time Provider Department 09/04/23 [...] hyperaldosteronism (HCC) [E26.09] Order(s):DEXAMETHASONE [SQDEXA] Order #: [id number] FUTURE CORTISOL SUPRES POST [SQONCORP] Order #: [id number] FUTURE CONSULT TO ENDOCRINE SURGERY [[id number]] Order #: [id number]: 1 FUTURE Prescriptions as of 09/04/2023 - [...] Status:Closed by VIKKI BALDERRAMA on 09/04/23 Normal [facility] US renal doppleron US renal doppler [facility] Main Julian [address] [place] [address] Ultrasound Report Signed Patient: Heidi Joy MR#: [id number] : 1990 Acct:[id number] Age/Sex: 33 / F ADM Date: 08/30/23 Loc: Room: Type: [facility] Attending Dr: Zara Ralph MD Ordering Provider: Zara Ralph MD Date of Service: 08/30/23 US/US renal doppler: E87.6, E87.3, I10. E27.9 Copies to: Zara Ralph MD Renal artery duplex examination performed using B-mode, color flow and spectral Doppler assessment. (CPT: 58351) INDICATION: Hypertension FINDINGS: Aorta: PSV 94.9 cm/s [...] Efrem Jo MD08/31/2023 3:55 PM Dictation Location: [place] [address] Tech: Hermelinda Alonso Transcribed By: KATHLEEN 08/31/23 155 Dictated By: Efrem Jo MD 08/31/231553 Signed By: 08/31/23 155 [facility]H Plas-mCncon 08-30-2023 Corticotropin (P) [Mass/Vol] 22.2 pg/mL Normal 7.2-63.3 [facility] Comment on above: Order Comment: Peter myles Type: BLOOD SPECIMEN Ordering Facility: [facility] Address: [address] [place] [address] Result Comment: ACTH Reference Range: 7-10 am: 7.2 - 63.3 pg/mL Performed By: #### 2 141-0 #### [facility] CLIA [id number] [address] [place] [address] [place] Aldost SerPl-mCncon 08-30-19 Aldosterone [Mass/Vol] 79.8 ng/dL High 0.0-<35.4 [facility] Comment on above: Order Comment: Peter myles Type: BLOOD SPECIMEN Ordering Facility: [facility] Address: [address] [place] [address] Result Comment: The reference interval for serum/plasma [...] ng/dL. Performed By: #### R ENIND #### [facility] CLIA [id number] [address] [place] [address] [place] [facility] CLIA [id number] [address] [place], [place] [address] #### 1763-2 #### [facility] CLIA [id number] [address] [place] [address] [place] Comprehensive metabolic 2000 panelon 08-30-2023 Albumin [Mass/Vol] 4.2 g/dL Normal 3.9-4.9 [facility] Comment on above: Order Comment: Speci men Type: BLOOD SPECIMEN Ordering Facility: [facility] Address: [address] [place] [address] Performed By: #### Jael NAVARRO 2143-01 #### [facility] CLIA [id number] [address] [place] [address] [place] ALP [Catalytic activity/Vol] 127 U/L High 34-123 [facility] Comment on above: Order Comment: Speci men Type: BLOOD SPECIMEN Ordering Facility: [facility] Address: [address] [place] [address] Performed By: #### Jael NAVARRO, 2143-01 #### [facility] CLIA [id number] [address] [place] [address] [place] ALT [Catalytic activity/Vol] 16 U/L Normal 7-38 [facility] Comment on above: Order Comment: Speci men Type: BLOOD SPECIMEN Ordering Facility: [facility] Address: [address] [place] [address] Performed By: #### Jael NAVARRO, 2143-01 #### [facility] CLIA [id number] [address] [place] [address] [place] Anion gap [Moles/Vol] 10 mmol/L Normal 9-18 [facility] Comment on above: Order Comment: Speci men Type: BLOOD SPECIMEN Ordering Facility: [facility] Address: [address] [place] [address] Performed By: #### Jael NAVARRO, 2143-01 #### [facility] CLIA [id number] [address] [place] [address] [place] AST [Catalytic activity/Vol] 14 U/L Normal 13-35 [facility] Comment on above: Order Comment: Speci men Type: BLOOD SPECIMEN Ordering Facility: [facility] Address: [address] [place] [address] Performed By: #### Jael NAVARRO, 2143-01 #### [facility] CLIA [id number] [address] [place] [address] [place] Bilirubin [Mass/Vol] 1.2 mg/dL Normal 0.2-1.3 [facility] Comment on above: Order Comment: Speci men Type: BLOOD SPECIMEN Ordering Facility: [facility] Address: [address] [place] [address] Performed By: #### Jael NAVARRO 2143-01 #### [facility] CLIA [id number] [address] [place] [address] [place] Calcium [Mass/Vol] 9.4 mg/dL Normal 8.5-10.2 [facility] Comment on above: Order Comment: Speci men Type: BLOOD SPECIMEN Ordering Facility: [facility] Address: [address] [place] [address] Performed By: #### Jael NAVARRO, 2143-01 #### [facility] CLIA [id number] [address] [place] [address] [place] Chloride [Moles/Vol] 109 mmol/L High 97-105 [facility] Comment on above: Order Comment: Speci men Type: BLOOD SPECIMEN Ordering Facility: [facility] Address: [address] [place] [address] Performed By: ###Javier NAVARRO, 2143-01 #### [facility] CLIA [id number] [address] [place] [address] [place] CO2 [Moles/Vol] 27 mmol/L Normal 22-30 [facility] Comment on above: Order Comment: Speci men Type: BLOOD SPECIMEN Ordering Facility: [facility] Address: [address] [place] [address] Performed By: #### Jael NAVARRO 2142-6 #### [facility] CLIA [id number] [address] [place] [address] [place] Creatinine [Mass/Vol] 0.66 mg/dL Normal 0.58-0.96 [facility] Comment on above: Order Comment: Peter men Type: BLOOD SPECIMEN Ordering Facility: [facility] Address: [address] [place] [address] Performed By: #### Jael NAVARRO, 2143-01 #### [facility] CLIA [id number] [address] [place] [address] [place] Creatinine and Glomerular filtration rate.predicted panel (S/P/Bld) 120 mL/min/1.73m??? Normal >=60 [facility] Comment on above: Order Comment: Peter myles Type: BLOOD SPECIMEN Ordering Facility: [facility] Address: [address] [place] [address] Result Comment: Rachel mated Glomerular Filtration Rate [...] accurately reflect actual GFR. Performed By: #### aJel NAVARRO, 2143-01 #### [facility] CLIA [id number] [address] [place] [address] [place] Glucose [Mass/Vol] 91 mg/dL Normal 74-99 [facility] Comment on above: Order Comment: Peter myles Type: BLOOD SPECIMEN Ordering Facility: [facility] Address: [address] [place] [address] Result Comment: The [place] Diabetes Association (ADA) provides guidance for cutoff [...] Standards of Medical Care in Diabetes 2016, [place] Diabetes Association. Diabetes Care. 2016.39(Suppl 1). Performed By: #### Jael NAVARRO, 2143-01 #### [facility] CLIA [id number] [address] [place] [address] [place] Potassium [Moles/Vol] 2.8 mmol/L Low 3.7-5.1 [facility] Comment on above: Order Comment: Speci men Type: BLOOD SPECIMEN Ordering Facility: [facility] Address: [address] [place] [address] Performed By: #### Jael NAVARRO 2143-01 #### [facility] CLIA [id number] [address] [place] [address] [place] Protein [Mass/Vol] 6.7 g/dL Normal 6.3-8.0 [facility] Comment on above: Order Comment: Joselyni men Type: BLOOD SPECIMEN Ordering Facility: [facility] Address: [address] [place] [address] Performed By: #### Jael NAVARRO 2143-01 #### [facility] CLIA [id number] [address] [place] [address] [place] Sodium [Moles/Vol] 146 mmol/L High 136-144 [facility] Comment on above: Order Comment: Speci men Type: BLOOD SPECIMEN Ordering Facility: [facility] Address: [address] [place] [address] Performed By: #### Jael NAVARRO 2143-01 #### [facility] CLIA [id number] [address] [place] [address] [place] Urea nitrogen [Mass/Vol] 12 mg/dL Normal 7-21 [facility] Comment on above: Order Comment: Speci men Type: BLOOD SPECIMEN Ordering Facility: [facility] Address: [address] [place] [address] Performed By: #### Jael NAVARRO, 3-6 #### [facility] CLIA [id number] [address] [place] [address] [place] Cortis SerPl-mCncon 08-30-19 Cortisol [Mass/Vol] 9.5 ug/dL Normal 4.8-19.5 [facility] Comment on above: Order Comment: Speci men Type: BLOOD SPECIMEN Ordering Facility: [facility] Address: [address] [place] [address] Result Comment: Prov ided reference range is from 6-10 AM sample collection time. Cortisol Reference Range: 6-10 AM = 4.8-19.5 ug/dL, 4-8 PM = 2.5-11.9 ug/dL Performed By: #### Jael NAVARRO, 6 #### [facility] CLIA [id number] [address] [place] [address] [place] DHEA-S BLDon 08-30-2023 DHEA-S [Mass/Vol] 188.1 ug/dL Normal 98.8-340.0 [facility] Comment on above: Order Comment: Speci men Type: BLOOD SPECIMEN Ordering Facility: [facility] Address: [address] [place] [address] Result Comment: Refe rence ranges are age and gender specific. For additional information, reference range tables can be found in the laboratory test directory. The normal values are based on the following source: Dehydroepiandrosterone sulfate (DHEA S) [package insert V 17.0 [place]]. [facility], [place], [place]: March 2013. Performed By: #### Jael NAVARRO, 2142-6 #### [facility] CLIA [id number] [address] [place] [address] [place] DIRECT RENIN PLASMAon 2023 DIRECT RENIN <2.1 Low 4.2-52.2 [facility] Comment on above: Order Comment: Speci men Type: BLOOD SPECIMEN Ordering Facility: [facility] Address: [address] [place] [address] Result Comment: A ra yue of aldosterone [...] pg/mL Performed By: #### R ENIND #### [facility] CLIA [id number] [address] [place] [address] [place] [facility] CLIA [id number] [address] [place] [address] #### 1763-2 #### [facility] CLIA [id number] [address] [place] [address] [place] PATIENT UPRIGHT OR SUPINE Upright Normal [facility] Comment on above: Order Comment: Speci men Type: BLOOD SPECIMEN Ordering Facility: [facility] Address: [address] [place] [address] Performed By: #### R ENIND #### [facility] CLIA [id number] [address] [place] [address] [place] [facility] CLIA [id number] [address] [place] [address] #### 1763-2 #### [facility] CLIA [id number] [address] [place] [address] [place] METANEPHRINES, FREE PLASMAon 08-30-2023 METANEPHRINE, PLASMA 28 pg/mL Normal 12- [facility] Comment on above: Order Comment: Speccollins myles Type: BLOOD SPECIMEN Ordering Facility: [facility] Address: [address] [place] [address] Result Comment: Refe rence Ranges: Hypertensive adult > or = 18 yrs old: 12-72 pg/mL Normotensive adult > or = 18 yrs old: 12-67 pg/mL Normotensive children < 18 yrs old: 10-95 pg/mL Performed By: #### P METAN #### [facility] CLIA [id number] [address] [place] [address] [place] NORMETANEPHRINE, PLASMA 84 pg/mL Normal 18-101 [facility] Comment on above: Order Comment: Peter myles Type: BLOOD SPECIMEN Ordering Facility: [facility] Address: [address] [place] [address] Result Comment: Refe rence Ranges: Hypertensive adult > or = 18 yrs old: 24-145 pg/mL Normotensive adult > or = 18 yrs old: 18-101 pg/mL Normotensive children < 18 yrs old: 22-83 pg/mL Methyldopa may cause false elevation of normetanephrine levels in this assay. If patient is on methyldopa, interpret results with caution. Performed By: #### P METAN #### [facility] CLIA [id number] [address] [place] [address] [place] MR FOOT RIGHT WO [...] Painter DO Normal Not Available Covid-19 PCR ([facility])on SARS-CoV-2 (COVID-19) RNA DARWIN+probe Ql (Unsp spec) Not detected Normal NOT DETECTED [facility] Comment on above: Result Comment: This test is not yet approved or cleared by the [place] FDA. When there are no FDA-approved or cleared tests available, and other criteria are met, FDA can make tests available under an emergency access mechanism called an Emergency Use Authorization (EUA). The EUA for this test is supported by the Director Of Enterprise Architecture of Health and Human Service's (HHS's) declaration [...] SARS-CoV-2. Performed By: #### C VDTB #### [facility] Laboratory [address] [place] [address] Dr. Maylin Ch Follow-Upon 11-05-2022 Follow-Up [id number] Janine Joy 1990 F Date Provider Department Center 11/05/2022 RAVINDRA BUCKLEY ONC DCC Family History Problem Relation Age of Onset Diabetes Mother Thyroid cancer Mother Diabetes Father Hypertension Father Family Status - Relation Status Age at Mother Father Level of Service:56498 NE OFFICE/OUTPATIENT ESTABLISHED MOD MDM 30-39 MIN Normal [facility] DRUG SCREEN RAPID (URINE)on 10-23-2022 AMP Negative Normal NEGATIVE [facility] Comment on above: Performed By: #### D RUGRPD #### [facility] [address] [place] [address] Dr. Maylin Ch BAR Negative Normal NEGATIVE [facility] Comment on above: Performed By: #### D RUGRPD #### [facility] Laboratory [address] [place], [place] [id number] Dr. Maylin Ch BUP Negative Normal NEGATIVE [facility] Comment on above: Performed By: #### D RUGRPD #### [facility] [address] [place] [address] Dr. Maylin Ch BZO Negative Normal NEGATIVE [facility] Comment on above: Performed By: #### D RUGRPD #### [facility] [address] [place] [address] Dr. Maylin Ch DRE Negative Normal NEGATIVE [facility] Comment on above: Performed By: #### D RUGRPD #### [facility] [address] [place] [address] Dr. Maylin Ch CUT-OFFS SEE BELOW Normal [facility] Comment on above: Result Comment: AMP [...] ng/mL Performed By: #### D RUGRPD #### [facility] [address] [place] [address] Dr. Maylin Ch DRUG CUT HEADER DRUG CLASS TEST SYST EM CUT-OFF CONCENTRATIONS ARE FOLLOWS: Normal [facility] Comment on above: Performed By: #### D RUGRPD #### [facility] [address] [place] [address] Dr. Maylin Ch mAMP Negative Normal NEGATIVE [facility] Comment on above: Performed By: #### D RUGRPD #### [facility] [address] [place] [address] Dr. Maylin Ch MTD Negative Normal NEGATIVE [facility] Comment on above: Performed By: #### D RUGRPD #### [facility] [address] [place] [address] Dr. Maylin Ch OPI Negative Normal NEGATIVE [facility] Comment on above: Performed By: #### D RUGRPD #### [facility] [address] [place] [address] Dr. Maylin Ch OXY Negative Normal NEGATIVE [facility] Comment on above: Performed By: #### D RUGRPD #### [facility] [address] [place] [address] [address] Maylin Ch PCP Negative Normal NEGATIVE [facility] Comment on above: Performed By: #### D RUGRPD #### [facility] [address] [place] [address] [address] Maylin Ch PPX Negative Normal NEGATIVE [facility] Comment on above: Performed By: #### D RUGRPD #### [facility] [address] [place] [address] [address] Maylin Ch TCA Negative Normal NEGATIVE [facility] Comment on above: Performed By: #### D RUGRPD #### [facility] [address] [place] [address] [address] Maylin Ch THC Negative Normal NEGATIVE [facility] Comment on above: Performed By: #### D RUGRPD #### [facility] [address] [place] [address] Dr. Maylin Ch MR BRAIN W AND [...] of ventriculomegaly. Electronically signed: Frank Lara. Normal [facility] Potassiumon 09-13-2022 Potassium [Moles/Vol] 3.3 mmol/L Low 3.5-5.1 [facility] Comment on above: Order Comment: Reaso n for Exam Plantar fasciitis;Encounter for preoperative assessment Result Comment: PERF ORMED BY: [place] [address] PATHOLOGIST SUPERVISOR [employer] MARY ANN LAL M.D. Performed By: #### K #### [address] [place] [address] Serum or plasma potassium me asurement (moles/volume)Ordered By: Manasa Rhodes on 09-13-2022 Potassium [Moles/Vol] 3.3 mmol/L 3.5-5.1 [facility] Office Visiton 09-10-2022 Follow-up visit [id number] Janine Joy 1990 F Date Provider Department Center 09/10/2022 RAVINDRA BUCKLEY DCC ONC DCC Family History Problem Relation Age of Onset Diabetes Mother Thyroid cancer Mother Diabetes Father Hypertension Father Family Status - Relation Status Age at Mother Father Level of Service:89000 NE OFFICE/OUTPATIENT ESTABLISHED MOD MDM 30-39 MIN Reason for Visit and Comments: Consult [484] - Past patient, coming back today to have imaging reordered. Normal [facility] Orders Onlyon 09-10-2022 Orders Only [id number] Janine Joy 1990 F Date Provider Department Center 09/10/2022 MONICA DOMINGUEZ ONC DCC Family History Problem Relation Age of Onset Diabetes Mother Thyroid cancer Mother Diabetes Father Hypertension Father Family Status - Relation Status Age at Mother Father Normal [facility] MAGNESIUMon 09-07-2022 Magnesium [Mass/Vol] 1.9 mg/dL Normal 1.8-2.4 [facility] Comment on above: Performed By: #### M Court, PHOS, BMP #### [facility] [address] [place] [address] Dr. Maylin Ch PHOSPHORUSon 09-07-2022 Phosphate [Mass/Vol] 3.7 mg/dL Normal 2.6-4.7 [facility] Comment on above: Performed By: #### M G, PHOS, BMP #### [facility] [address] [place] [address] Dr. Maylin Ch PROF CHEM 8 (BAS METB)on Anion gap [Moles/Vol] 14.3 mmol/L Normal [facility] Comment on above: Performed By: #### M G, PHOS, BMP #### [facility] [address] [place] [address] Dr. Maylin Ch Calcium [Mass/Vol] 9.3 mg/dL Normal 8.5-10.1 [facility] Comment on above: Performed By: #### M G, PHOS, BMP #### [facility] [address] [place] [address] Dr. Maylin Ch Chloride [Moles/Vol] 105 mmol/L Normal 98-107 [facility] Comment on above: Performed By: #### M G, PHOS, BMP #### [facility] [address] [place] [address] Dr. Maylin Ch CO2 [Moles/Vol] 31.0 mmol/L Normal 21.0-32.0 [facility] Comment on above: Performed By: #### M G, PHOS, BMP #### [facility] [address] [place] [address] Dr. Maylin Ch Creatinine [Mass/Vol] 0.90 mg/dL Normal 0.55-1.02 [facility] Comment on above: Performed By: #### M G, PHOS, BMP #### [facility] [address] [place] [address] Dr. Maylin Ch EGFR-AF VIET[place]ESE >60 Normal >=60 [facility] Comment on above: Performed By: #### M Court PHOS, BMP #### [facility] [address] [address] [address] Maylin Ch EGFR-NON AF VIET[place]ESE >60 Normal >=60 [facility] Comment on above: Performed By: #### M Court, PHOS, BMP #### [facility] [facility] [address] [address] [address] Maylin Ch Glucose [Mass/Vol] 158 mg/dL Critically high 74-106 [facility] Comment on above: Performed By: #### Jose F Yun PHOS, BMP #### [facility] [address] [address] [address] Maylin Ch Potassium [Moles/Vol] 2.3 mmol/L Critically low 3.5-5.1 [facility] Comment on above: Performed By: #### Jose F Yun PHOS, BMP #### [facility] [address] [address] [address] Maylin Ch Sodium [Moles/Vol] 147 mmol/L Critically high 136-145 [facility] Comment on above: Performed By: #### Jose F Yun PHOS, BMP #### [facility] [address] [address] [address] Maylin Ch Urea nitrogen [Mass/Vol] 7.0 mg/dL Normal 7.0-18.0 [facility] Comment on above: Performed By: #### Jose F Yun PHOS, BMP #### [facility] [address] [address] [address] Maylin Ch Urea nitrogen/Creatinine [Mass ratio] 7.8 mg/mg Normal [facility] Comment on above: Performed By: #### Jose F Yun PHOS, BMP #### [facility] [address] [place] [address] Dr. Maylin Ch Potassiumon 09-07-2022 Potassium [Moles/Vol] 2.4 mmol/L Off scale low 3.5-5.1 [facility] Comment on above: Result Comment: Resu lts called at 0807 on 09/07/22 PERFORMED BY: [place] [address] PATHOLOGIST SUPER[employer] MARY ANN LAL M.D. Performed By: #### K #### [address] Serum or plasma potassium me asurement (moles/volume)Ordered By: NON STAFF on 09-07-2022 Potassium [Moles/Vol] 2.4 mmol/L 3.5-5.1 [facility] Comment on above: Results calledat 080 7 [...] for a consultation for. POC Dr. Benson, [facility] Bariatrics- Bariatric sx History of Present [...] Vital Signs Recorded: 06Jun2022 04:17PMRecorded: 06Jun2022 03:45PM [id number], LUE, Sitting Corzleijx12382, LUE, Sitting Heart Rate71, Apical Height5 ft 7 in Zkpvwi049 lb BMI Gbmnjjzlju37.77 kg/m2 BSA Calculated2.42 Tobacco Useb) No PHQ-2 [...] to auscul (more content not included)... Normal Smarty Ring Tobacco Screening.on 022 Adult depression screening assessment No -[facility] 250 DO Work Phone: Tobacco use status CPHS b) No M -[facility] 250 DO Work Phone: DHEA SERUMon 01-12-2022 Dehydroepiandrosterone (DHEA) 287 ng/dL Normal 31-701 [facility] Comment on above: Result Comment: Age [...] 701 Performed By: #### D STAR. #### [facility] [address] [place], [place] [address] Dr. Maylin Ch TESTOSTERONE, FREE,DIRECT, T OTALon 01-06-2022 Free Testosterone(Direct) 1.6 pg/mL Normal 0.0-4.2 [facility] Comment on above: Result Comment: Perf ormed at: BN Performed By: #### T ESTFRD #### [facility] [address] [place] [address] Dr. Maylin Ch Testosterone [Mass/Vol] 17 ng/dL Normal 13-71 [facility] Comment on above: Result Comment: Perf ormed at: CB Performed By: #### T ESTFRD #### [facility] [address] [place] [address] Dr. Maylin Ch INSULINon 01-05-2022 Insulin 13.2 uIU/mL Normal 2.6-24.9 [facility] Comment on above: Performed By: #### I NSULIN #### [facility] [address] [place] [address] Dr. Maylin Ch GLYCOHEMOGLOBIN A1Con 2021 ADA RECOMMENDATION SEE BELOW Normal [facility] Comment on above: Result Comment: ADA RECOMMENDED LIMIT 4.0 - 6.0 ADA THERAPEUTIC TARGET < 7.0 ACTION SUGGESTED > 7.0 Performed By: #### A 1C #### [facility] [address] [place] [address] Dr. Maylin Ch Glucose [Mass/Vol] 146 mg/dL Normal [facility] Comment on above: Performed By: #### A 1C #### [facility] [address] [place] [address] Dr. Maylin Ch HbA1c (Bld) [Mass fraction] 6.7 % Critically high 4.5-6.2 [facility] Comment on above: Performed By: #### A 1C #### [facility] [address] [place] [address] Dr. Maylin Ch TSHon 01-04-2022 TSH 3.214 uIU/mL Normal 0.358-3.74 0 [facility] Comment on above: Performed By: #### T SH #### [facility] [address] [place] [address] Dr. Maylin Ch TSH RANGE SEE BELOW Normal [facility] Comment on above: Result Comment: <0.3 4 UIU/ml HYPERTHYROID 0.34-5.60 UIU/ml EUTHYROID >5.60 UIU/ml HYPOTHYROID Performed By: #### T SH #### [facility] [address] [address] [address] Maylin Ch Potassiumon 10-05-2021 Potassium [Moles/Vol] 3.3 mmol/L Low 3.5-5.5 [facility] Comment on above: Performed By: #### K #### [facility] [address] [place], [place] [id number] [place] 09-11-2021 Consent [id number]#1.00CD:127 Normal [facility] Registrationon 09-11-2021 Registration [id number]#1.00CD:127 Normal [facility] Basic Metabolic Panelon 08-06 Anion gap [Moles/Vol] 21 mmol/L High 12-20 [facility] Comment on above: Result Comment: Effe ctive 08/10/2019 reference range changed. Performed By: #### B MP #### [facility] [address], [place] [id number] Calcium [Mass/Vol] 9.3 mg/dL Normal 8.6-10.2 [facility] Comment on above: Performed By: #### B MP #### [facility] [address], [place] [id number] Chloride [Moles/Vol] 106 mmol/L Normal 98-107 [facility] Special[facility] Comment on above: Performed By: #### B MP #### [facility] [address] [facility] [place] [id number] CO2 [Moles/Vol] 20 mmol/L Normal 20-31 [facility] Specialist Comment on above: Performed By: #### B MP #### [facility] [address] [facility] [place] [id number] Creatinine [Mass/Vol] 0.7 mg/dL Normal 0.6-1.4 [facility] Comment on above: Performed By: #### B MP #### [facility] [address] [facility] [place] [id number] eGFRAA 115 mL/min/1.73m2 Normal >60 [facility] Specialist Comment on above: Performed By: #### B MP #### [facility] [address] [place], [place] [id number] eGFRNAA 95 mL/min/1.73m2 Normal >60 [facility] Specialist Comment on above: Performed By: #### B MP #### [facility] [address], [place] [id number] Glucose [Mass/Vol] 184 mg/dL High 65-99 Sydnie crespo [place] [facility] Comment on above: Result Comment: For FASTING Glucose --- ADA reference ranges: Normal 65-99 mg/dl Prediabetes 100-125 Diabetes >/= 126 Performed By: #### B MP #### [facility] [address] [place], [place] [id number] Potassium [Moles/Vol] 2.8 mmol/L Critically low 3.5-5.5 [facility] Specialist Comment on above: Result Comment: Crit ical result called to Dr Rhodes/Rylee at 09/01/2021 11:58 AM by Cyndie Montanez) Performed By: #### B MP #### [facility] [address] [place], [place] [id number] Sodium [Moles/Vol] 144 mmol/L Normal 135-146 [facility] Comment on above: Performed By: #### B MP #### [facility] [address], [place] [id number] Urea nitrogen [Mass/Vol] 10 mg/dL Normal 7-25 [facility] Comment on above: Performed By: #### B MP #### [facility] [address], [place] [id number] [place] 08-17-2021 Consent [id number]#1.00CD:127 Normal [facility] Registrationon 08-17-2021 Registration [id number]#1.00CD:127 Normal [facility] Registrationon 04-04-2021 Registration [id number]#1.00CD:127 Normal [facility] Cons[place] 04-03-2021 Consent [id number]#1.00CD:127 Normal [facility] MRI BRAIN W WO CONTRASTon MRI BRAIN W WO CONTRAST [facility] Department of Radiology [address] [place] [id number] Patient Name: HEIDI JOY : 1990 Sex: F Age: Race: White Pt. Location: 29 Patient Status: O Ordered Date: 02/04/2020 2:05:00 PM Completed Date: 03/17/2020 10:13 AM Requesting Provider: GANGA RODRIGUES Attending Provider: GANGA RODRIGUES Report Copy To: IMMANUEL KUHN Signs & Symptoms: C71.9 Malignant neoplasm of brain, unspecified I10 History: Nita AMES AUTH [id number] VALID 03/04-04/03/2020 [id number] KW Comments: , 1p-19q co-deleted oligodendroglioma of [...] reports Electronically signed: Shawn Martins. Transcribed by: [email or web address], User Resident: JONATHAN ARCE Electronically Signed by: SHAWN MARTINS @ 03/17/2020 12:45 PM I personally read this/these film(s) with this resident Normal [facility] Comment on above: Order Comment: [...] WO CONTRASTon MRI BRAIN W WO CONTRAST [facility] Department of Radiology [address] [place] [id number] Patient Name: HEIDI JOY : 1990 Sex: F Age: Race: White Pt. Location: 29 Patient Status: O Ordered Date: 03/20/2019 11:25:00 AM Completed Date: 09/11/2019 10:54 AM Requesting Provider: ALISA CH Attending Provider: ALISA CH Report Copy To: IMMANUEL KUHN Signs & Symptoms: C71.9 Malignant neoplasm of brain, unspecified I10 History: Nita ames auth # [id number] 08/28/2019-09/27/2019 cpt code 01026 *mla Comments: , 1p-19q co-deleted oligodendroglioma of [...] reports Electronically signed: Jim Curiel. Transcribed by: [email or web address], User Resident: DANDY HUFFMAN Electronically Signed by: JIM CURIEL @ 09/11/2019 04:35 PM I personally read this/these film(s) with this resident Normal [facility] Comment on above: Order Comment: [...] Summaryon 01-29-2018 Coding Summary CODING DATE: 018 [facility] STATUS: Home PAYOR: Medicaid HMO ADMIT DX: [...] Swanson' Date Saved: 01/29/2018 03:42 pm Normal [facility] ED Clinical Summaryon 2017 ED Clinical Summary [facility] ? Urgent [id number] [id number] clinical SummaryPERSON INFORMATIONName: HEIDI JOY Age: 27 Years Sex: FEMALEDOB: [birth year] MRN: Acct#:Visit Reason: UC - Rash; UC - Rash; RASH/ BILAT LEGS Arrival: 01/23/18 10:43:00 Discharge: 01/23/18 11:18:00LOS: 000 00:35 Check In: 01/23/18 10:43:00 Checkout: 01/23/18 11:18:00Address:[address] [address]XKZ: Bam Immanuel ROCHE INFORMATIONProvider Role Assigned UnassignedSpCarmelo Perez ED PA 01/23/18 10:48:23SmCristal ibarra ED Nurse 01/23/18 10:53:41VITALS INFORMATIONVital Sign Triage LatestTemperature TympanicTemperature Temporal ArteryPulse Rate 79 bpm 79 bpmO2 Sat 97 % 97 %Respiratory Rate 16 br/min 16 br/minBlood Pressure 162 mmHg/98 mmHg 162 mmHg/98 mmHgMEDICAL INFORMATIONMedications Given:Allergy Information:No Known Medication AllergiesPHYSICIAN DOCUMENTATIONDISCHARGE INFORMATION:Discharge Disposition: HomeDischarge Location:PATIENT EDUCATION INFORMATIONInstructions: Poison Glenelg Dermatitis, Rafp-xd-JiazTzbmsz-Up:With : Address: When:Immanuel Kuhn [address] [place] [address] Rd[address] [place] [address] [facility] (1)Comments:Begin on the prednisone 2 tablets daily for 5 days take with food to avoid gastric refluxBegin on the Claritin 1 tab daily for the next 2 weeks Follow-up with primary care provider in 3-5 days sooner if worse.DIAGNOSIS:urushiol induced contact dermatitisPatient Understands: Yes - Patient/family/caregiver verbalizes understanding of instructions givenComment: [facility] ED Note - Physicianon 2017 ED Note - Physician Patient: HONORIO JOY : 27 years Sex: FEMALE : [birth year]Associated Diagnoses: urushiol induced contact dermatitisAuthor: [place] InformationTime seen: Date & time 01/23/18 11:01:00.History source: Patient.Arrival mode: Private vehicle.History limitation: None.Additional information: Chief Complaint from Nursing Triage Note : Chief Cbazeuwgd17/21/18 10:45 EDT Chief Complaint 2-3 days possible [...] been selected or recorded..Social history:Social & Psychosocial ZsnxgbDdyumyz26/21/2018 Number used per day: 10.Problem list:Active Problems (1)Smoker.Physical Examination Vital GvosvAukrjkplzzbg28/21/18 10:45 EDT Height 170.18 cm Weight 122.47 [...] was given the following educational materials: Poison Glenelg Dermatitis, Zxfc-nj-Daei.Follow up with: Immanuel Kuhn Begin on the [...] on: 01/23/2018 11:28 EDT] [place] Normal [facility] ED Patient Summaryon 018 ED Patient Summary [facility] ? Urgent [address] [place] [id number] pATIENT DISCHARGE INSTRUCTIONSPatient InformationName: HEIDI JOY Age: 27 YearsDate of : [birth year]MRN: [id number] For Visit: UC - Rash; UC - Rash; RASH/ BILAT LEGSArrival Time: 01/23/18 10:43:00Phone: [facility] Physician: Immanuel Kuhn Physician: Tonja LakerComment:Patient EducationWith: Address: When:Immanuel Kuhn [facility] [address] [place] [address] Business (1)Comments:Begin on the prednisone 2 tablets daily for 5 days take with food to avoid gastric refluxBegin on the Claritin 1 tab daily for the next 2 weeks Follow-up with primary care provider in 3-5 days sooner if worse.Poison Glenelg DermatitisPoison oak dermatitis is redness and soreness [...] instructions at home:General instructions? Take or apply ylaq-rpz-irdxnar and prescription medicines only as told by [...] Released: 08/24/2011 Document Revised: 12/27/2016 Document Reviewed: 12/28/2015Elsevier Interactive Patient Education ? 2018 [employer].Medication Information:The exam and treatment you received today in the [facility] Emergency Department were for an urgent problem and are not intended as complete care. It is important for you to follow up with a doctor, nurse practitioner, or physician?s optometrist assistant for ongoing care. If your symptoms [...] number so we can reach you if necessary.[facility] has provided you with a complete list of medications post discharge. Please inform your crotch piece baster/provider of your visit and for further instruction [...] InformationVisit Diagnosis:Diagnoses This Visit UC - Rash ([id number]) UC - Rash ([id number]) urushiol induced contact dermatitisIf you received any [...] Weight: 122.47 kg Body Mass Index: 42.29 kg/e2Egujhimj List:Problem Onset CommentsSmokerMajor Tests and Procedures:The following [...] Disease Control and Prevention April 2014 Normal [facility]gent Care [place] 018 Urgent Care Record [facility] ? Urgent [address] [place] [address] pATIENT DISCHARGE INSTRUCTIONSPatient InformationName: HEIDI JOY Age: 27 YearsDate of : [birth year]MRN: [id number] For Visit: UC - Rash; UC - Rash; RASH/ BILAT LEGSArrival Time: 01/23/18 10:43:00Phone: [facility] Care Physician: Immanuel Kuhn Physician: Tonja LakerComment:Visit Diagnosis:Diagnoses This Visit UC - Rash ([id number]) UC - Rash ([id number]) urushiol induced contact dermatitisIf you received any [...] sign any legal documentsWith: Address: When:Immanuel Kuhn [address] [place] [address]., [address] [place], [place] [id number] Business (1)Comments:Begin on the prednisone 2 tablets daily for 5 days take with food to avoid gastric refluxBegin on the Claritin 1 tab daily for the next 2 weeks Follow-up with primary care provider in 3-5 days sooner if worse.Medication Information:The exam and treatment you received today in the [facility] Care were for an urgent problem and are not intended as complete care. It is important for you to follow up with a doctor, nurse practitioner, or physician?s optometrist assistant for ongoing care. If your symptoms [...] number so we can reach you if necessary.[facility] has provided you with a complete list of medications post discharge. Please inform your crotch piece baster/provider of your visit and for further instruction [...] Weight: 122.47 kg Body Mass Index: 42.29 kg/t1Chssbpeo List:Problem Onset CommentsSmoker Patient EducationPoison Glenelg DermatitisPoison oak dermatitis is redness and soreness [...] instructions at home:General instructions? Take or apply qcid-gsd-kacwvdl and prescription medicines only as told by [...] Reviewed: 12/28/2015Nirmala Interactive Patient Education ? 2018 [employer] Viruses or BacteriaWhat?s got you sick?Antibiotics [...] Antibiotics [place] Department of Health and Human ServicesSum[facility] Campusers for Disease Control and Prevention April 2014 [facility] Vital Signs Date Time Vital Sign Value Performing Clinician Facility 09-13-2023 10:53-0500 Body mass index (BMI) [Ratio] 31.78 kg/m2 Barbara Dixon [employer] Work Phone: [facility] 09-13-2023 10:53-0500 Body temperature 97.5 [degF] Barbara Dixon [employer] Work Phone: [facility] 09-13-2023 10:53-0500 Body weight 89.3 kg Barbara Dixon [employer] Work Phone: [facility] 09-13-2023 10:53-0500 Diastolic blood pressure 100 mm[Hg] Barbara Dixon [employer] Work Phone: [facility] 09-13-2023 10:53-0500 Heart rate 79 /min Barbara Dixon [employer] Work Phone: [facility] 09-13-2023 10:53-0500 SaO2% (BldA) [Mass fraction] 98 % Barbara Dixon [employer] Work Phone: [facility] 09-13-2023 10:53-0500 Systolic blood pressure 160 mm[Hg] Barbara Dixon [employer] Work Phone: [facility] 09-09-2023 16:00-0500 Body height 170.18 cm Zara Ramo Other [employer] Other 09-09-2023 16:00-0500 Body mass index (BMI) [Ratio] 30.82 kg/m2 Zara Ramo Other [employer] Other 09-09-2023 16:00-0500 Body temperature 96.4 [degF] Zara Ramo Other [employer] Other 09-09-2023 16:00-0500 Body weight 89.27 kg Zara Ramo Other [employer] Other 09-09-2023 16:00-0500 Diastolic blood pressure 92 mm[Hg] Zara Ramo Other [employer] Other 09-09-2023 16:00-0500 Respiratory rate 18 /min Zara Ramo Other [employer] Other 09-09-2023 16:00-0500 SaO2% (BldA) [Mass fraction] 99 % Zara Ramo Other [employer] Other 09-09-2023 16:00-0500 Systolic blood pressure 151 mm[Hg] Zara Ramo Other [employer] Other 08-19-2023 16:00-0500 Body height 170.18 cm Zara Ramo Other [employer] Other 08-19-2023 16:00-0500 Body mass index (BMI) [Ratio] 31.76 kg/m2 Zara Ramo Other [employer] Other 08-19-2023 16:00-0500 Body temperature 97.5 [degF] Zara Ramo Other [employer] Other 08-19-2023 16:00-0500 Body weight 91.99 kg Zara Ramo Other [employer] Other 08-19-2023 16:00-0500 Diastolic blood pressure 100 mm[Hg] Zara Ramo Other [employer] Other 08-19-2023 16:00-0500 Respiratory rate 18 /min Zara Ramo Other [employer] Other 08-19-2023 16:00-0500 SaO2% (BldA) [Mass fraction] 100 % Zara Ramo Other [employer] Other 08-19-2023 16:00-0500 Systolic blood pressure 170 mm[Hg] Zara Ramo Other [employer] Other 06-06-2022 16:17-0400 Diastolic blood pressure 89 mm[Hg] Immanuel Kuhn Work Phone: [facility] DO Work Phone: 06-06-2022 16:17-0400 Systolic blood pressure 138 mm[Hg] Immanuel Kuhn Work Phone: [facility] DO Work Phone: 06-06-2022 15:45-0400 Body height 170.18 cm Immanuel Kuhn Work Phone: [facility] DO Work Phone: 06-06-2022 15:45-0400 Body mass index (BMI) [Ratio] 47.77 kg/m2 Immanuel Kuhn Work Phone: [facility] DO Work Phone: 06-06-2022 15:45-0400 Body surface area Derived from formula 2.42 m2 Immanuel Kuhn Work Phone: [facility] DO Work Phone: 06-06-2022 15:45-0400 Body weight 138.35 kg Immanuel Kuhn Work Phone: [facility] 250 DO Work Phone: 06-06-2022 15:45-0400 Diastolic blood pressure 102 mm[Hg] Immanuel Joe Bam Work Phone: [facility] 250 DO Work Phone: 06-06-2022 15:45-0400 Heart rate 71 /min Immanuel Joe Bam Work Phone: [facility] 250 DO Work Phone: 06-06-2022 15:45-0400 Systolic blood pressure 160 mm[Hg] Immanuel Joe Bam Work Phone: [facility] 250 DO Work Phone: Encounters Encounter Date Encounter Type Care Provider Facility Start: 10-17-2023 End: 10-18-2023 ambulatory SHEILA L BRAUN Not Available Start: 10-11-2023 End: 10-12-2023 ambulatory IMMANUEL KUHN Facility:[facility] Start: 10-10-2023 End: 10-10-2023 ambulatory SHEILA L BRAUN Not Available Start: 09-25-2023 End: 09-25-2023 ambulatory SHEILA L BRAUN Not Available Start: 09-25-2023 End: 09-25-2023 ambulatory MANASA DUNAWAY Not Available Start: 09-13-2023 Telephone encounter Barbara Dixon NP Work Phone: [facility] Start: 09-13-2023 End: 09-13-2023 ambulatory BARBARA DIXON Not Available Start: 09-13-2023 End: 09-13-2023 Office outpatient visit 25 minutes Barbara Dixon NP Work Phone: [facility] Comment on above: Acute bronchitis, un [...] with patient Mario Santiago MD Work Phone: [facility] Start: 09-11-2023 Bamboo flowsheet Sheila L Benne tt [facility] Work Phone: [facility] Start: 09-11-2023 Bamboo flowsheet Sheila L Benne tt [facility] Work Phone: [facility] Start: 09-11-2023 End: 09-11-2023 Social Work Sheila Josefa YoungbloodBraun [facility] Work Phone: [facility] Comment on above: Generalized anxiety disorder (CMS/HCC); Bipolar affective disorder, currently depressed, mild (CMS/HCC) Start: 09-10-2023 Chart abstracting Manasa Dunaway DP Work Phone: [facility] Start: 09-10-2023 End: 09-10-2023 ambulatory [facility] Facility:[facility] Start: 09-09-2023 End: 09-09-2023 ambulatory Zara Ramo Other [employer] Other Start: 09-09-2023 Office outpatient vi sit [...] (FACE SHEET) Start: 09-06-2023 End: 09-06-2023 ambulatory [facility] Facility:[facility] Start: 09-05-2023 Telephone encounter Mario encinas MD Work Phone: General Surgery Comment on above: Appointment (Called patient and left a message that patient was added to 's schedule for a virtual appointment for 09/12 at 11AM per . Sent [employer] message and mailed out appointment reminder) Start: 08-30-2023 End: 08-30-2023 ambulatory VIKKI FISHMANMACJACOBO Facility:[facility] Start: 08-30-2023 End: 08-30-2023 ambulatory Immanuel Kuhn Facility:[facility] Start: 08-30-2023 End: 08-30-2023 ambulatory DO Immanuel Kuhn Work Phone: [facility] Work Phone: Start: 08-30-2023 End: 08-30-2023 Patient encounter procedure DO Immanuel Kuhn Work Phone: [facility] Work Phone: Start: 08-23-2023 End: 08-23-2023 ambulatory Zara Ramo Other [facility] [employer] Other Start: 08-23-2023 Telephone encounter Zaraosmel Pruittr [facility] Start: 08-22-2023 End: 08-22-2023 ambulatory SHEILA BRAUN Not Available Start: 08-21-2023 End: 08-22-2023 ambulatory MANASA DUNAWAY Not Available Start: 08-20-2023 End: 08-20-2023 ambulatory JULYALI VEERAMACHANENI Facility:[facility] Start: 08-20-2023 End: 08-20-2023 ambulatory Vikki Balderrama MD Work Phone: Endocrinology Comment on above: 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) Start: 08-20-2023 End: 08-20-2023 Telemedicine consultation with patient Vikki Balderrama MD Work Phone: [facility] Start: 08-19-2023 End: 08-19-2023 ambulatory Zara Ramo Other [facility] [employer] Other Start: 08-19-2023 Office outpatient ne w 45 minutes Zara Ralph [facility] Nephrology Start: 08-19-2023 End: 08-19-2023 Patient encounter procedure DO Immanuel Kuhn Work Phone: [facility] Work Phone: Start: 08-15-2023 [...] Not Available Start: 07-22-2023 End: 07-22-2023 ambulatory JUANKRYS BARON Not Available Start: 07-18-2023 End: 07-18-2023 ambulatory ALEX NAIK Not Available Start: 07-03-2023 End: 07-04-2023 ambulatory IMMANUEL KUHN Not Available Start: 06-26-2023 End: 06-26-2023 ambulatory SHEILA BRAUN Not Available Start: 03-18-[address] Della Kim Facility: Start: 12-13-2022 Encounter for preprocedural laboratory examination DR DOCTOR FARMER [facility] Start: 12-07-2022 End: 12-08-[address] IMMANUEL KUHN Facility:[facility] Start: 12-07-2022 End: 12-08-2022 Encounter for preprocedural laboratory examination DR IMMANUEL KUHN Facility:[facility] Start: 11-05-2022 ambulatory RAVINDRA LEMA [facility] Start: 10-23-2022 End: 10-24-2022 ambulatory ZAKIA BENSON Facility:[facility] Start: 10-22-2022 End: 10-23-2022 ambulatory RAVINDRA [facility] Start: 09-13-2022 End: 09-13-2022 ambulatory Manasa Dunaway Facility:[facility] Start: 09-13-2022 Encounter for other preprocedural examination Manasa Dunaway [facility] Start: 09-13-2022 End: 09-13-2022 ambulatory DO Immanuel Kuhn Work Phone: [facility] Work Phone: Start: 09-13-2022 End: 09-13-2022 Patient encounter procedure DO Immanuel Kuhn Work Phone: [facility] [place] Work Phone: Start: 09-10-2022 End: 09-10-2022 ambulatory RAVINDRA [facility] Start: 09-07-2022 End: 09-08-[address] TE DARNELL . Facility: Start: 09-07-2022 End: 09-07-[address] TE DARNELL . Facility:[facility] Start: 09-07-2022 End: 09-07-2022 ambulatory Tiarra Prakash Facility:[facility] Start: 09-07-2022 End: 09-07-2022 ambulatory DO Immanuel Kuhn Work Phone: [facility] Work Phone: Start: 09-07-2022 End: 09-07-2022 Patient encounter procedure DO Immanuel Kuhn Work Phone: [facility] [place] Work Phone: Start: 08-07-2022 Rx Renewal Immnauel Kuhn Work Phone: [facility] [address] DO Work Phone: Start: 07-31-2022 End: 02-21-2023 Preprocedural examination done Generic Provider [facility] Start: 06-06-2022 Office outpatient vi sit 25 minutes Immanuel Kuhn Work Phone: [facility] [address] DO Work Phone: Start: 06-06-[address] Della Kim Facility:[id number] Start: 01-04-2022 End: 01-05-[address] ESTHER ANGELES Facility:[facility] Start: 01-23-2018 End: 01-25-2018 [facility] Patient encounter status Immanuel Kuhn Work Phone: [facility] [address] DO Work Phone: Procedures Date Procedure Procedure Detail Performing Clinician Start: 09-12-2023 ALL POTASSIUM Generic E xternal Data Provider Start: 09-06-2023 [facility] CORTIS P DEX [facility]PL[facility] Generic External Data Provider Plan of Treatment Date Care Activity Detail Author Start: 12-18-2026 Screening for malign ant neoplasm of cervix [facility] Start: 10-02-2023 End: 10-02-2023 Social Work 10/02/2023 12:00 PM EST Social Work [facility] [address] [place] [address] Sheila Braun, [facility] [address] [place] [address] [facility] Start: 09-25-2023 End: 09-25-2023 Social Work 09/25/2023 12:00 PM EST Social Work [facility] [address] [place] [address] Sheila Braun, [facility] [address] [place] [address] [facility] Start: 09-18-2023 End: 09-18-2023 Social Work 09/18/2023 12:00 PM EST Social Work [facility] [address] [place] [address] Sheila Braun, [facility] [address] [place] [address] [facility] Start: 09-11-2023 End: 09-11-2023 Social Work 09/11/2023 12:00 PM EST [facility] [address] [place] [phone] Sheila Braun, [facility] [address] [place] [address] [facility] Start: 09-10-2023 End: 09-10-2023 Patient encounter procedure 09/10/2023 8:45 AM EST [facility] [address] [place] [phone] Manasa Dunaway, DPJose F [address] [place] [address] [facility] Start: 08-30-2023 Doppler ultrasonogra phy of kidney US renal doppler [facility] Start: 08-30-2023 US Unspecified body region [facility] Start: 08-20-2023 End: 11-19-2023 Aldosterone [Mass/volume] in Serum or Plasma ALDOSTERONE BLD Lab Routine Adenoma of left adrenal gland Expected: 08/20/2023, Expires: 11/19/2023 [facility] Work Phone: Comment on above: Expected: 08/20/2023 , Expires: 11/19/2023 Start: 08-20-2023 End: 11-19-2023 Comprehensive metabolic 2000 panel - Serum or Plasma COMP METABOLIC PANEL Lab Routine Adenoma of left adrenal gland Expected: 08/20/2023, Expires: 11/19/2023 [facility] Work Phone: Comment on above: Expected: 08/20/2023 , Expires: 11/19/2023 Start: 08-20-2023 End: 11-19-2023 Corticotropin [Mass/volume] in Plasma ACTH BLD Lab Routine Adenoma of left adrenal gland Expected: 08/20/2023, Expires: 11/19/2023 [facility] Work Phone: Comment on above: Expected: 08/20/2023 , Expires: 11/19/2023 Start: 08-20-2023 End: 11-19-2023 Cortisol [Mass/volume] in Serum or Plasma CORTISOL BLD Lab Routine Adenoma of left adrenal gland Expected: 08/20/2023, Expires: 11/19/2023 [facility] Work Phone: Comment on above: Expected: 08/20/2023 , Expires: 11/19/2023 Start: 08-20-2023 End: 11-19-2023 DHEA-S BLD DHEA-S BLD Lab Routine Adenoma of left adrenal gland Expected: 08/20/2023, Expires: 11/19/2023 [facility] Work Phone: Comment on above: Expected: 08/20/2023 , Expires: 11/19/2023 Start: 08-20-2023 End: 11-19-2023 DIRECT RENIN PLASMA DIRECT RENIN PLASMA Lab Routine Adenoma of left adrenal gland Expected: 08/20/2023, Expires: 11/19/2023 [facility] Work Phone: Comment on above: Expected: 08/20/2023 , Expires: 11/19/2023 Start: 08-20-2023 End: 11-19-2023 METANEPHRINES, FREE PLASMA METANEPHRINES, FREE PLASMA Lab Routine Adenoma of left adrenal gland Expected: 08/20/2023, Expires: 11/19/2023 [facility] Work Phone: Comment on above: Expected: 08/20/2023 , Expires: 11/19/2023 Start: 08-05-2023 Depression Assessment Depression Ass essment [facility] Start: 07-04-2023 Urine screening for protein Diabetes: Urine Protein Screening [facility] Start: 04-05-2023 Influenza vaccination Influenza Vacc ine (#1) [facility] Start: 03-14-2023 FUV, Provider: Della Kim, Status: Pen, Time: 1:30 PM FUV, Provider: Della Kim, Status: Pen, Time: 1:30 PM [facility] [facility] DO Work Phone: Start: 04-06-2022 Hemoglobin A1c measurement Diabetes: Hemoglobin A1C [facility] Start: 2021 Screening for malign ant neoplasm of cervix HPV Testing [facility] Start: 2012 Screening for malign ant neoplasm of cervix [facility] Start: 2010 Urine microalbumin profile DTaP,Tdap,Td Vaccine (1 - Tdap) [facility] Start: 2009 Hepatitis C screening Hepatitis C Sc reening [facility] Start: 2009 HIV screening HIV Screening [facility] Start: 2001 Glaucoma screening Diabetes: R etinopathy Screening [facility] Start: 02-02-1992 Covid-19 Vaccine (#1) Covid-19 Vacci ne (#1) [facility] Start: 1991 Hepatitis B Vaccine (1 of 3 - 3-dose series) Hepatitis B Vaccine (1 of 3 - 3-dose series) [facility] Aldosterone [Mass/ti me] in 24 hour Urine ALDOSTERONE 24 HR, URINE Lab Routine Adenoma of left adrenal gland Ordered: 09/06/2023 [facility] Work Phone: Comment on above: Ordered: 09/06/2023 CATECHOLAMINES FRACTIONATED, URINE FREE CATECHOLAMINES FRACTIONATED, URINE FREE Lab Routine Adenoma of left adrenal gland Ordered: 09/06/2023 [facility] Work Phone: Comment on above: Ordered: 09/06/2023 CREAT CLEAR 24 HOUR CREAT CLEAR 24 HOUR Lab Routine Adenoma of left adrenal gland Ordered: 09/06/2023 [facility] Work Phone: Comment on above: Ordered: 09/06/2023 CREATININE BLD CREATININE BLD L ab Routine Adenoma of left adrenal gland Ordered: 09/06/2023 [facility] Work Phone: Comment on above: Ordered: 09/06/2023 CREATININE CLEARANCE , UR 24HR CREATININE CLEARANCE, UR 24HR Lab Routine Adenoma of left adrenal gland Ordered: 09/06/2023 [facility] Work Phone: Comment on above: Ordered: 09/06/2023 Guidance for venous sampling of Vein IR VENOUS SAMPLING Radiology Routine Adenoma of left adrenal gland Ordered: 09/12/2023 [facility] Work Phone: Comment on above: Ordered: 09/12/2023 METANEPHRINES 24H UR METANEPHRIN ES 24H UR Lab Routine Adenoma of left adrenal gland Ordered: 09/06/2023 [facility] Work Phone: Comment on above: Ordered: 09/06/2023 URINE FREE CORTISOL BY LC-MS/MS URINE FREE CORTISOL BY LC-MS/MS Lab Routine Adenoma of left adrenal gland Ordered: 09/06/2023 [facility] Work Phone: Comment on above: Ordered: 09/06/2023 [facility] Payers Date Payer Category Payer Self-pay [id number] 2016 Medicaid [id number] 1991 Unknown [id number] 2.16.840.1.673497.3.579.2.593 1991 Unknown [id number] 2.16.840.1.561637.3.579.2.593 1991 Unknown [id number] 2.16.840.1.408234.3.579.2.593 1991 Unknown [id number] 2.16.840.1.366612.3.579.2.593 1991 Unknown [id number] 2.16.840.1.329189.3.579.2.593 1991 Unknown [id number] 2.16.840.1.697924.3.579.2.356 1991 Unknown [id number] 2.16.840.1.821299.3.579.2.356 1991 Unknown [id number] 2.16.840.1.354580.3.579.2.1259 1991 Unknown [id number] 2.16.840.1.755338.3.579.2.1259 1991 Unknown [id number] 2.16.840.1.700609.3.579.2.1259 1991 Unknown [id number] 2.16.840.1.505834.3.579.2.1259 1991 Unknown [id number] 2.16.840.1.626742.3.579.2.9 1991 Unknown [id number] 2.16.840.1.447783.3.579.2.1259 1991 Unknown [id number] 2.16.840.1.514779.3.579.2.9 1991 Unknown [id number] 2.16.840.1.406467.3.579.2.9 1991 Unknown [id number] 2.16.840.1.451552.3.579.2.9 1991 Unknown [id number] 2.16.840.1.853320.3.579.2.1259 1991 Unknown [id number] 2.16.840.1.861605.3.579.2.9 1991 Unknown [id number] 2.16.840.1.256659.3.579.2.9 1991 Unknown [id number] 2.16.840.1.789782.3.579.2.1259 1991 Unknown [id number] 2.16.840.1.956255.3.579.2.1259 1991 Unknown [id number] 2.16.840.1.499993.3.579.2.9 1991 Unknown [id number] 2.16.840.1.483904.3.579.2.1259 1991 Unknown [id number] 2.16.840.1.686440.3.579.2.9 1991 Unknown [id number] 2.16.840.1.174837.3.579.2.1259 1991 Unknown [id number] 2.16.840.1.775761.3.579.2.1259 1959 Medicaid [id number] Unknown [employer] Unknown [facility] [id number] Unknown [id number] 2.16.840.1.139289.3.579.2.531 Unknown [id number] 2.16.840.1.043112.3.579.2.531 Unknown [id number] 2.16.840.1.074599.3.579.2.531 Social History Date Type Detail Facility Start: 01-05-2020 End: 02-21-2023 No illicit drug use No illicit drug use [place] [address] DO Work Phone: Comment on above: quit 2021; Start: 11-09-2019 End: 08-05-2022 Tobacco smoking status [facility] Smoker (finding) [facility] Start: 1990 Sex Assigned At Female F [facility] Start: 01-05-2020 End: 02-21-2023 Sex Assigned At [facility] [employer] Other Start: 01-05-2020 Tobacco smoking status [facility] Never smoked tobacco [facility] Start: 01-05-2020 End: 02-21-2023 Tobacco use and exposure Smokeless tobacco non-user [facility] Start: 01-05-2020 Alcohol intake Current drinke r of alcohol (finding) [facility] National Score (1-100), lower number is lower risk 59 [facility] Start: 1990 Sex Assigned At Not on file [facility] Start: 08-27-2023 Gender identity Identifies as female gender (finding) [facility] Start: 02-21-2023 Tobacco smoking status DCIS Ex-smoker [facility] End: 08-05-2022 History of tobacco use Cigarette Smoker [facility] Start: 08-15-2023 End: 09-10-2023 Alcohol intake Ex-drinker (finding) [facility] Start: 12-23-2022 Alcohol Comment 1-2 cans of soda silvestre ly [facility] Start: 09-10-2023 Alcohol Comment caffeine intak e: 1-2 cans of soda [facility] Clinical Notes 09-10-2022 to 09-13-2023 Telephone Encounter - Mohamud Morales MA - 09/13/2023 11:30 AM ESTTelephone Encounter - Mohamud Morales MA - 09/13/2023 11:30 AM ESTTelephone Encounter - Barbara Dixon NP - 09/13/2023 11:18 AM EST Note Date & Type Note Facility 09-13-2023 Telephone encounter Note Contacted pt, went over results above, pt understood and had no further questions at the time of call [facility] 09-13-2023 Miscellaneous Notes Contacted pt, went over results above, pt understood and had no further questions at the time of call Please let pt know her BP was elevated at office visit today. She should monitor her BP at home and to ER if any increase from her baseline readings, otherwise follow up with PCP documented in this encounter [facility] 09-13-2023 Telephone encounter Note Please let pt know her BP was elevated at office visit today. She should monitor her BP at home and to ER if any increase from her baseline readings, otherwise follow up with PCP [facility] 09-13-2023 History of Present illness Narrative HPI: [...] tablet; Refill: 0 documented in this encounter [facility] 09-12-2023 Note HNO ID: [id number] Author: MARIO SANTIAGO MD Service: ? Author Type: Physician Type: Progress Notes Filed: 09/12/2023 10:17 Note Text: This was a virtual visit. I have communicated my name and active licensure. The patient's identity and physical location were verified at the time of this visit. Either the patient or their legal termite control representative has been informed of the risks and benefits of -- and alternatives to -- treatment through a remote evaluation and consents to proceed with the evaluation remotely. Endocrinology Metabolism [facility] Mario Santiago M.D. Section of Endocrine Surgery and Advanced Laparoscopic Surgery [address] [place] [address], [place] [address] ENDOCRINE SURGERY NEW CONSULTATION NAME: Heidi Joy CLINIC NO: [id number] : 1990 Surgeon: Dr. Mario Santiago REFERRING PROVIDER: Vikki Balderrama [address] [place] [address] The patient was referred by the above [...] which included prep (more content not included)... [facility] 09-12-2023 History of Present illness Narrative This was a virtual visit. I have communicated my name and active licensure. The patient's identity and physical location were verified at the time of this visit. Either the patient or their legal termite control representative has been informed of the risks and benefits of -- and alternatives to -- treatment through a remote evaluation and consents to proceed with the evaluation remotely. Endocrinology Metabolism [facility] Mario Santiago M.D. Section of Endocrine Surgery and Advanced Laparoscopic Surgery [address] [place] [address], [address] [address] ENDOCRINE SURGERY NEW CONSULTATION NAME: Heidi Joy CLINIC NO: [id number] : 1990 Surgeon: Dr. Mario Santiago REFERRING PROVIDER: Vikki Balderrama [id number] [id number] The patient was referred by the above [...] which included preparing to see the patient, [id number] patient care, completing clinical documentation, obtaining and/or reviewing separately obtained history, counseling and educating the patient/family/caregiver, ordering medications, tests, or procedures, communicating with other HCPs (not separately reported), independently interpreting results (not separately reported), communicating results to the patient/family/caregiver, and care coordination (not separately reported). Sincerely, Mario Santiago MD 09/12/2023 CC: Vikki Balderrama [id number] [place] [id number] documented in this encounter [facility] 09-09-2023 Evaluation note Encounter Date Diagnosis Assessment Notes Sep, Hypokalemia (ICD-10 - E87.6) She has hypertension with hypokalemia and high 24-hour urinary aldosterone level consistent with primary hyperaldosteronism. Her 24-hour urinary potassium may be low due to the critically low serum potassium. She is also reported to have elevated serum aldosterone. She was seen by the endocrine at [facility] and now referred to the surgery [...] - E27.9) Continue follow-up with endocrine at [facility]. Sep, Other Patient was advised due to the primary hyperaldosteronism she can follow-up endocrine. She can refer to our office in future if needed. [employer] Other 02-02-2024 Miscellaneous Notes* Addendum Note - Valraie Wharton - 09/06/2023 8:59 AM ESTAddended by: VALARIE WHARTON on: 09/06/2023 08:59 AM Modules accepted: Orders * Telephone Encounter - Valarie Wharton - 09/06/2023 8:51 AM EST 09/06/2023 INTAKE PENDING.NEED 24HR URINE-LFT MSG ON VMX AND SENT MYCHART MSG. ENDOCRINE SURGERY PATIENT WORKSHEET Initial Call Date: September 06, 2023 Reason for Consult/ Referral: Adrenal Mass PATIENT DEMOGRAPHICS Name: Heidi Joy [facility]#: [id number] : 1990 AGE: [age] year old Contact Numbers: Home: (home) Work: There is no work phone number on file. PATIENT PHYSICIAN INFORMATION Referring Doctor: Address: Phone: Staple Cutter: Address: Phone: PCP: Immanuel Kuhn [address] [address] PAST TREATMENT Office notes: SEE EPIC Medications: [...] - 340.0 ug/dL 188.1 Imaging Reports: SEE [employer] CD of Images: SEE EPIC FNA: no FNA Slides: N/A Has the patient ever had thyroid or parathyroid surgery before: No Operative Reports: NONE AVAILABLE Pathology Reports: NONE AVAILABLE [facility] NoteHNO ID: [id number] Author: VIKKI BALDERRAMA MD Service: ? Author Type: Physician Type: Progress Notes Filed: 08/25/2023 22:12 Note Text: Endocrinology and Metabolism [place] Initial Clinic Visit Note Virtual Visit (Audio/Visual) [...] visit. Either the patient or their legal termite control representative has been informed of the risks [...] and nephrology. She recently met with a melter clerk and was recommended to undergo some work-up. [...] imaging is around 5- (more content not included)...[facility]01-16-2024 Instructions* Patient Instructions* Vikki Balderrama MD [...] to let me know [facility] History of Present illness Narrative* Vikki Balderrama MD - 08/20/2023 1:43 PM EST Endocrinology and Metabolism [place] Initial Clinic Visit Note Virtual Visit (Audio/Visual) I have discussed the nature of this visit with the patient which will occur via [facility] [employer] (Phone, Virtual Visit) and he agrees to proceed with this interaction . I have communicated my name and active licensure. The patient's identity and physical location wereverified at the time of this visit. Either the patient or their legal termite control representative has been informed of the risks [...] and nephrology. She recently met with a melter clerk and was recommended to undergo some work-up. [...] to get the labs done at [facility], I provided her with the lab phone number to make an appointment. Vikki Balderrama MD [facility] Endocrinology and Metabolism [facility] - [facility] [phone] Medical Decision Making: Problems: Moderate: 1+ chronic illnesses with change Data: Unique source(s) for external note(s) reviewed: 1 Unique test result(s) reviewed: 3+ Unique test(s) ordered: 3+ Medical Decision Making Level: 4 - Moderate documented in this encounterUniversity [facility]01-[facility] Evaluation note* Encounter Date Diagnosis Assessment Notes Treatment Notes Treatment Clinical Notes Aug, Hypokalemia (ICD-10 - E87.6) It was a pleasure to see Mrs. Joy in our office for evaluation and management of hypokalemia. As you know she has a longstanding hypokalemia and metabolic alkalosis and hypertension. Differential diagnoses are broad and include primary hyperaldosteronism, Lewes syndrome, Gettleman syndrome and Bartter syndrome. I [...] of the adrenal nodule with serial imaging. [employer] Other 04-03-2023 NoteIn person visit Chief complaint: follow up for prior right frontal glioma TE-MOAK: 32 y/o woman - she had prior [...] repeat MRI brain w/wout contrast. [facility] NoteIn person visit Chief complaint: known olidodendroglioma TE-MOAK: 32 y/o Left handed - she does not work. 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 She had migraines and high blood pressure [...] after the MRI is completed. Ravindra Lema MDUnKindred Hospital DaytonChief complaint Narrative - ReportedHEIDI JOY is being seen for a consultation for. POC Dr. Benson, [facility]ariat[facility] [facility] Work Phone: Evaluation noteNo assessment information available [facility] Work Phone: Evaluation noteNo InformationNort SP3H Other Evaluation note* Diagnosis Adenoma of left adrenal gland- Primary Benign neoplasm of adrenal gland documented in this encounter [facility]* Diagnosis Adenoma of left adrenal gland- Primary Benign neoplasm of adrenal gland documented in this encounter [facility]* Diagnosis Primary hyperaldosteronism (HCC)- Primary Hyperaldosteronism, unspecified Adenoma of left adrenal gland Benign neoplasm of adrenal gland documented in this encounter [facility]* Diagnosis Generalized anxiety disorder (CMS/HCC) Generalized anxiety disorder Bipolar affective disorder, currently depressed, mild (CMS/HCC) Bipolar I disorder, most recent episode (or current) depressed, mild documented in this encounter [facility] HealthcareEvaluation note* Diagnosis Acute bronchitis, unspecified organism- [...] 2 DIALBETES MYRA LITUS WITHOUT COMPLICATION, WITHOUT RETIREMENT CURRENT USE OF INSULIN Medical History MICROSYTIC [...] GASTRIC BYPASS 12/2022 Hospitalization History SEE ABOVE [employer] Other History general Narrative - Reported* Type [...] 2 DIALBETES MYRA LITUS WITHOUT COMPLICATION, WITHOUT FLOATER 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 CURRENT USE OF INSULIN Medical History MICROSYTIC ANEMIA Medical History BIPOLAR AFFECTIVE DISORDER, CURR ENTLY DEPRESSED, MILD Medical History CANNABIS ABUSE Medical History MALIGNANT NEOPLASM OF BRAIN Medical History Potassium infusions weekly at [facility] Surgical History brain tumor removed malignant 0 Surgical History DILATION AND CURETTAGE ESOPHAGO GASTRODUODENOSCOPY Surgical History INGROWN TOENAIL Surgical History ANKLE SCOPE PLANTAR FASCIOTOMY 2017 Surgical History RIGHT FRONTAL LOBEECTOMY 2018 Surgical History ENDOSCOPIC PLANTAR FASCIOTOMY 2 023 Surgical History GASTRIC BYPASS 12/2022 Hospitalization History SEE ABOVE Hospitalization History Sue for low potassi um 08/2023 [facility] [employer] Other History of Present illness Narrative* Patient [...] medication 9 4. Follow-up in 9 months [facility] [facility] DO Work Phone: Summary Purpose Family [...] section and content) DATE CREATED AUTHOR 01/29/2018 [facility] DATE CREATED AUTHOR AUTHOR'S ORGANIZ ATION 03/21/2020 [facility] DATE CREATED AUTHOR AUTHOR'S ORGANIZ ATION 09/12/2021 [facility] DATE CREATED AUTHOR AUTHOR'S ORGANIZ ATION 10/06/2021 [facility] dical Specialist DATE CREATED AUTHOR AUTHOR'S ORGANIZ ATION 06/07/2022 [employer] DATE CREATED AUTHOR AUTHOR'S ORGANIZ ATION 11/19/2022 [facility] DATE CREATED AUTHOR AUTHOR'S ORGANIZ ATION 12/14/2022 [facility] DATE CREATED AUTHOR AUTHOR'S ORGANIZ ATION 03/19/2023 [facility] DATE CREATED AUTHOR AUTHOR'S ORGANIZ ATION 09/05/2023 [facility] DATE CREATED AUTHOR AUTHOR'S ORGANIZ ATION 10/19/2023 [facility] DATE CREATED AUTHOR AUTHOR'S ORGANIZ ATION 10/19/2023 [facility] dical Specialists EPIC Care Teams (unrecognized sec tion and content) Team Status: Inactive Member Role Status Dates Immanuel Kuhn DO Primary Care Provider Active RAYRAY KramerC Attending Provider Active Team Status: Active Member Role Status Dates Immanuel Kuhn DO Primary Care Provider Active Team Status: Inactive Member Role Status Dates Immanuel Kuhn DO Primary Care Provider Active Manasa Rhodes DPM Attending Provider Active [employer] Relationship Specialty Start Date End Date Immanuel Kunh DO [address] [place] [address] PCP - General Family Medicine 10/23/12 Esther Angeles MD [address] [place] [phone] Referring Obstetrics 01/28/20 Татьяна Carter PA-C [address] [place] [address] Referring Physician Bunghole Borer 08/08/23 Team Status: Inactive Member Role Status Dates Zara Ralph MD Attending Provider Active Start : August 19, 2023 End: August 19, 2023 Team Status: Inactive Member Role Status Dates Immanuel Kuhn DO Primary Care Provider Active St art: August 30, 2023 End: August 30, 2023 Zara Ralph MD Attending Provider Active Start : August 30, 2023 End: August 30, 2023 [employer] Relationship Specialty Start Date End Date Immanuel Kuhn DO [address] [place] [address] PCP - General Family Medicine 10/23/12 Esther Angeles MD [address] [place] [phone] Referring Obstetrics 01/28/20 Татьяна Carter PA-C [address] [place] [address] Referring Physician Bunghole Borer 08/08/23 [employer] Relationship Specialty Start Date End Date Immanuel Kuhn DO [address] [place] [address] PCP - General Family Medicine 10/23/12 Esther Angeles MD [address] [place] [address] Referring Obstetrics 01/28/20 Татьяна Carter PA-C [address] [place] [address] Referring Physician Bunghole Borer 08/08/23 [employer] Hand Relationship Specialty Start Date End Date Immanuel Kuhn DO [address] [place] [address] PCP - General Family Medicine 12/25/22 Татьяна Carter PA [address] [place] [address] PCP - [facility] 02/02/23 [employer] Hand Relationship Specialty Start Date End Date Immanuel Kuhn DO [address] [place] [address] PCP - General Family [facility] 10/23/12 Esther Angeles MD [address] [place] [phone] Referring Obstetrics 01/28/20 Татьяна Carter, PA-C [address] [place] [address] Referring Physician Bunghole Borer 08/08/23 [employer] Hand Relationship Specialty Start Date End Date Immanuel Kuhn DO [address] [place] [address] PCP - General Family Medicine 12/25/22 Татьяна Carter PA [address] [place] [address] PCP - [facility] 02/02/23 [employer] Hand Relationship Specialty Start Date End Date Immanuel Kuhn DO [address] [place] [address] PCP - General Family Medicine 12/25/22 Татьяна Carter PA [address] [place] [address] PCP - [facility] 02/02/23 [employer] Hand Relationship Specialty Start Date End Date Immanuel Kuhn TatyanaDO [address] [place] [address] PCP - General Family Medicine 12/25/22 Татьяна Carter PA [address] [place] [address] PCP - [facility] 02/02/23 Goals (unrecognized section and content) [...] for 09/12 at 11AM per . Sent [employer] Medical message and mailed out appointment reminder Reason Comments Consult FACE SHEET Reason Comments Adrenal Specialty Diagnoses / Procedures Referred By Omari t Referred To Contact Diagnoses Adenoma of left adrenal gland Procedures CONSULT TO ENDOCRINE SURGERY OFFICE/OUTPATIENT NEW HIGH [facility] [address] [place] [address] [place] [address] Referral ID Status Reason Start Date Expiration Date V isits Requested Visits Authorized [id number] Closed PCP Requested Referral 09/04/2023 09/03/2024 1 1 Reason Comments Follow-up Source Comments (unrecognize d section and content) In the event this informatio n is protected by the Federal Confidentiality of Alcohol and Drug Abuse Patient Records regulations: The Federal rules restrict any use of the information to criminally investigate or prosecute any alcohol or drug abuse patient.[facility] the event this information is protected by the Federal Confidentiality of Alcohol and Drug Abuse Patient Records regulations: The Federal rules restrict any use of the information to criminally investigate or prosecute any alcohol or drug abuse patient.[facility] the event this information is protected by the Federal Confidentiality of Alcohol and Drug Abuse Patient Records regulations: The Federal rules restrict any use of the information to criminally investigate or prosecute any alcohol or drug abuse patient.[facility] the event this information is protected by the Federal Confidentiality of Alcohol and Drug Abuse Patient Records regulations: The Federal rules restrict any use of the information to criminally investigate or prosecute any alcohol or drug abuse patient.[facility] FOR RECORDS PERTAINING TO PATIENTS [...] BE BASED ON THE PRIMARY CLINICAL RECORDS. [facility]. provides no warranty or guarantee of the accuracy or completeness of information in this document.
[2023-10-22 09:05] LABS: Potassium 2.5 mmol/L (3.5-5.1)
== END 2023-10-21 15:32 | disposition home or self-care (01) ==
LOC: LAB 15:31
PROVIDERS: PCP Family Medicine
DX: K90.9 Intestinal malabsorption, unspecified (principal); Z98.84 Bariatric surgery status; D50.9 Iron deficiency anemia, unspecified; I10 Essential (primary) hypertension; E87.6 Hypokalemia; K21.9 Gastro-esophageal reflux disease without esophagitis
CPT/HCPCS: 36415; 84132

== ENCOUNTER 2023-11-16 15:15 | Emergency (ER) | payer OTHER, SELFPAY ==
[2023-11-16] VITALS (16 sets, daily range): BP systolic 148–187; BP diastolic 70–110; PULSE 62–83; TEMP 36.8; O2SAT 99; BMI 28.2
--- OUTSIDE RECORDS SUMMARY | 2023-11-16 15:23 | XMS_ITS | CCD ---
Author Organization [facility] Care Team Providers Care Assembly Line Brazer Name Role Phone Spasic, Carmelo Unavailable Unavailable Nicolaosielc, Carmelo Unavailable Unavailable IMMANUEL KUHN Unavailable Unavailable Immanuel Kuhn Unavailable Unavailable Unavailable DO Immanuel Kuhn Primary Care Provider [phone] NETTIE Prakash Attending Provider REJI Rhodes Attending Provider [phone] RAVINDRA LEMA Referring Unavailable RAVINDRA LEMA Attending [...] TIWARI Admitting Unavailable ZAKIA BENSON Admitting Unavailable BLACK, ZAKIA Attending Unavailable ZAKIA BENSON Consulting Unavailable BAM, DR MILLER Primary Care Unavailable BAM, DR MILLER Primary Care Unavailable MISC, DR INIGUEZ Admitting Unavailable MISC, DR INIGUEZ Attending Unavailable MISC, DR INIGUEZ Consulting Unavailable BRIDGETTE, DR MURO Admitting Unavailable BRIDGETTE, DR MURO Attending Unavailable BRIDGETTE, DR MURO Consulting Unavailable BAM, DR MILLER Primary Care Unavailable Judy, Dr. Hull Attending Unavaila darryn Kuhn, Dr. Immanuel Toure Primary Care Unavaila ble Judy, Dr. Hull Attending Unavaila darryn Kim, Dr. Hull Referring Unavaila darryn Kuhn, Dr. Immanuel Toure Primary Care Unavaila ble Ramo, Zara Unavailable Immanuel Kuhn DO Primary Care Provider Esther Angeles MD Unavailable Татьяна Carter PA-C Unavailable DO Immanuel Kuhn Primary Care Provider MD Zara Ralph Attending Provider [phone] Manasa Dunaway Attending Unavailable Gume, Manasa Admitting Unavailable Immanuel Kuhn Primary Care Unavailable Tiarra Prakash Attending Unavailable Tiarra Prakash Admitting Unavailable Immanuel Kuhn Primary Care Unavailable Immanuel Kuhn Primary Care Unavailable Zara Raplh Attending Unavailable Zara Ralph Admitting Unavailable Immanuel Kuhn DO Primary Care Provider Татьяна Angeles Unavailable JUAN BARON Attending Unavailable GUME, MANASA H Referring Unavailable ТАТЬЯНА CARTER Attending Unavailable IMMANUEL KUHN Referring Unavailable SHEILA BRAUN Attending Unavailable DUNAWAY, MANASA H Attending Unavailable DUNAWAY, MANASA H Referring Unavailable BRAUN, SHEILA Rivero Attending Unavailable DUNAWAY, MANASA H Attending Unavailable BRAUNSHEILA LOGAN Attending Unavailable BARBARA DIXON Attending Unavailable DUNAWAY, MANASA H Attending Unavailable BRAUN, SHEILA L Attending Unavailable BRAUN, SHEILA L Attending Unavailable BRAUN, SHEILA Josefa Attending Unavailable BRAUN, SHEILA L Attending Unavailable MISSY, SHEILA Rivero Attending Unavailable ELIOT WOLF Attending Unavailable IMMANUEL KUHN Referring Unavailable SHEILA BRAUN Attending Unavailable BRAUN, SHEILA L Attending Unavailable BRAUN, SHEILA L Attending Unavailable IMMANUEL KUHN Referring Unavailable ALEX NAIK Attending Unavailable DUNAWAY, MANASA H Referring Unavailable JUAN BARON Attending Unavailable DUNAWAY, MANASA H Referring Unavailable JHONY GARCIA Attending Unavailable DUNAWAY, MANASA H Referring Unavailable LORAINE JUAN Attending Unavailable DUNAWAY, MANASA H Referring Unavailable ARIANNA LORA Referring Unavailable IMMANUEL KUHN Primary Care Unavailable IMMANUEL KUHN Primary Care Unavailable NATASHA CHASE Referring Unavailable MARISA, ARMANDO Referring Unavailable IMMANUEL KUHN Primary Care Unavailable COTJACOB, ARMANDO Referring Unavailable IMMANUEL KUHN Primary Care Unavailable IMMANUEL KUHN Primary Care Unavailable FERMIN YI Admitting FERMIN Pop Attending UnavailMARIO Aguiar Attending Unavailable VIKKI BALDERRAMA Referring Unavailab IMMANUEL Garcia Primary Care Unavailable IMMANUEL KUHN Primary Care Unavailable IMMANUEL KUHN Primary Care Unavailable VEVIKKI HANSON Referring Unavailab IMMANUEL Garcia Primary Care Unavailable VIKKI BALDERRAMA Referring Unavailab IMMANUEL Garcia Primary Care Unavailable VIKKI BALDERRAMA Attending UnavailIMMANUEL Brooks Primary Care Unavailable Allergies Allergy Classification Reported Allergen(s) Allergy Type Date of Onset Reaction(s) Facility (1 source) No Known Medication Allergies; Translations: [No Known Medication Allergies] Propensity to adverse reactions to drug (disorder) [facility] Repository Medications Current Medications Medication Drug Class(es) Dates Sig (Normalized) Sig (Original) amLODIPine 10 mg oral tablet (14 sources) Dihydropyridine Calcium Channel Clover Start: 09-29-2019 End: 08-20-2023 take 1 tablet by mouth once daily amLODIPine (Norvasc) 10 MG tablet Indications: Primary hypertension (CMS/[facility]) TAKE 1 TABLET BY MOUTH EVERY DAY [...] by mouth in the morning. 0 Active Calcium Carbonate+Vitamin D (3 sources) Calcium Carbonate+Vitamin D Active calcium carbonate-vitamin D 600-400 MG-UNIT tablet (8 sources) take 1 tablet by mouth once daily calcium carbonate-vitamin D 600-400 MG-UNIT tablet Take 1 tablet by mouth 1 (one) time each day at the same time 0 Active cefuroxime 500 mg oral tablet (3 sources) Cephalosporin Antibacterial Start: 09-13-19 End: 09-23-19 24 take 1 tablet by [...] 1 tablet by mouth in the morning norethindrone-ethin yl estradiol (Necon ) 0.5/0.75/1-35 MG-MCG tablet Take 1 tablet by mouth in the morning. 0 Active End: 08-20-2023 take 1 tablet by mouth once daily, then take 0.44752095637096883 tablet by mouth once Norethindrone-Eth Estradiol (ALYACEN , ,) 1-35 mg-mcg per tablet Take 1 tablet by mouth once daily. 0 08/20/2023 Discontinued Comment on above: Take 1 tablet by rosita once daily. ketoconazole 20 mg/ml topical cream (8 sources) Azole Antifungal Start: 07-13-20 22 ketoconazole (NIZOral) 2 % cream Apply 1 application topically in the morning. 0 07/13/2022 Active loperamide hydrochloride 2 mg oral tablet (3 sources) Opioid Agonist Start: 05-03-20 17 Loperamide (Imodium A-D) 2 mg tablet Active 2 MG PO Q4H May 02, 2017 11:00pm after each loose stool until symptoms controlled; do not exceed 16 mg total dose in 24 hrs magnesium oxide 400 mg oral capsule (11 sources) Start: 07-12-20 23 take 1 capsule by mouth in the [...] tablet (8 sources) Serotonin-3 Receptor Antagonist Start: 024 take 1 tablet by mouth every eight hours as needed for nausea and vomiting and nausea and nausea ondansetron (Zofran) 4 MG tablet Indications: Nausea Take 1 tablet (4 mg) by mouth every 8 (eight) hours if needed for nausea or vomiting 60 tablet 1 08/19/2023 Active promethazine hydrochloride 25 mg oral tablet (3 sources) Phenothiazine Start: 017 take 25 mg by mouth every six hours Promethazine Active 25 MG PO Q6H May 02, 2017 11:00pm spironolactone 50 mg oral tablet (8 sources) Aldosterone Antagonist Start: 023 take 1 tablet by mouth once daily spironolactone (Aldactone) 50 MG tablet Indications: Hypokalemia TAKE 1 TABLET BY MOUTH EVERY DAY FOR 90 DAYS 90 tablet 1 05/23/2023 Active Completed/Discontinued Medications Medication Drug Class(es) Dates Sig (Normalized) Sig (Original) brexpiprazole 1 mg oral tablet (18 sources) Atypical Antipsychotic Start: 06-18-2023 End: 08-18-2024 take 1 tablet by mouth once daily REXULTI 1 mg tablet TAKE 1 TABLET BY MOUTH ONCE DAILY AT THE SAME TIME 0 06/18/2023 Active Comment on above: TAKE 1 TABLET BY ROSITA TH ONCE DAILY AT THE SAME TIME busPIRone hydrochloride 10 mg oral tablet (18 sources) Start: 03-17-2023 take 1 tablet by mouth at bedtime busPIRone (BUSPAR) 10 mg tablet TAKE 1 TABLET (10 MG) BY MOUTH IN THE MORNING AND BEFORE BEDTIME 0 03/17/2023 Active Comment on above: TAKE 1 TABLET (10 MG ) BY MOUTH IN THE MORNING AND BEFORE BEDTIME carvedilol 25 mg oral tablet (19 sources) alpha-Adrenergic Clover, beta-Adrenergic Clover Start: 08-18-2021 [...] day ferrous sulfate 134 mg oral tablet (7 sources) Ferrous Sulfate 27 mg iron tab Take by mouth twice daily. 0 Active Comment on above: Take by mouth twice daily. gabapentin 400 mg oral capsule (20 sources) Anti-epileptic Agent Start: 05-20-2022 gabapentin (NEURONTIN) 400 mg capsule 1 capsule. 0 05/20/2022 Active Comment on above: 1 capsule. hydrALAZINE hydrochloride 100 mg oral tablet (20 sources) Arteriolar Vasodilator Start: 07-04-2022 take 1 [...] tablet by rosita two times a day. lamoTRIgine 150 mg oral tablet (20 sources) Mood Stabilizer, Anti-epileptic Agent Start: End: lamoTRIgine (LAMICTAL) 150 mg tablet Take 150 mg by mouth. 0 05/21/2022 Active Comment on above: Take 150 mg by mouth . lurasidone hydrochloride 60 mg oral tablet (17 sources) Atypical Antipsychotic Start: End: lurasidone (LATUDA) 60 mg tab tablet Take 60 mg by mouth. 0 07/20/2022 Active Comment on above: Take 60 mg by mouth. minocycline 100 mg oral capsule (1 source) Tetracycline-class Drug Start: End: take 1 capsule by mouth twice daily minocycline 100 mg capsule Take 1 capsule by mouth twice daily. 60 capsule 4 11/26/2012 08/20/2023 Discontinued Comment on above: Take 1 capsule by mo [facility] twice daily. Natazia 3/2-2/2-3/1 MG Oral Tablet (2 sources) Start: take 1 tablet by mouth once daily Natazia 3/2-2/2-3/1 MG Oral Tablet TAKE 1 TABLET BY MOUTH EVERY DAY CONTINUOUSLY Quantity: 28 Refills: 0 Ordered: 29-May-2022 DO Start : 27-Sep-2021 Active microencapsulated potassium chloride 20 meq extended release oral tablet (20 sources) Start: potassium chloride ER (KLOR-CON) 20 mEq tablet Take 20 mEq by mouth. 0 04/27/2022 Active Start: 04-27-2022 take 1 tablet by rosita once daily Klor-Con M20 20 MEQ Oral Tablet Extended Release TAKE 1 TABLET BY MOUTH EVERY DAY Quantity: 90 Refills: 0 Ordered: 27-Apr-2022 DO Start : 27-Apr-2022 Active take 4 tablets by mo [facility] every twelve hours Potassium Chloride ER 10 MEQ 4 capsules with food Orally Twice a day Active take 1 tablet by rosita every twenty-four hours Potassium Chloride ER 20 MEQ 1 tablet with food Orally Once a day Active Comment on above: Take 20 mEq by mouth . propranolol hydrochloride 40 mg oral tablet (1 source) beta-Adrenergic Clover End: take 40 mg by mouth twice daily propranolol HCl (PROPRANOLOL ORAL) Take 40 mg by mouth twice daily. 0 08/20/2023 Discontinued Comment on above: Take 40 mg by mouth twice daily. sertraline 50 mg oral tablet (2 sources) Serotonin Reuptake Inhibitor End: take 1 tablet by mouth once daily [...] once daily. SUMAtriptan 100 mg oral tablet (18 sources) Serotonin-1b and Serotonin-1d Receptor Agonist Start: [...] bedtime. 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] [...] headache] Onset: 07-15-2018 02-21-2023 Episodic Nutritional deficiencies (15 sources) Iron deficiency; Translations: [Iron deficiency] Onset: 02-02-2020 02-02-2020 Episodic Other aftercare (1 source) Other terminal operator (current) drug therapy; Translations: [OTH USP CURRENT DRUG THERAPY] Onset: 09-10-2022 Episodic Other [...] Resolved: 02-21-2023 02-21-2023 Episodic Other skin disorders (15 sources) Axillary hidradenitis suppurativa; Translations: [Hidradenitis suppurativa] Onset: 10-27-2012 10-27-2012 Episodic Other skin disorders (15 sources) Comedone; Translations: [Acne vulgaris] Onset: 10-27-2012 [...] Test Name Value Interpretation Reference Range Facility Basic metabolic 2000 panelon 11-15-2023 Anion gap [Moles/Vol] 12 mmol/L Normal 9-18 [facility] Comment on above: Order Comment: Speci men Type: BLOOD SPECIMENOrdering Facility: [facility] Address: [address] [place] [address] Performed By: #### 2 4321-2 ####[facility] LABCLIA [id number] [place] [address] Calcium [Mass/Vol] 10.1 mg/dL Normal 8.5-10.2 [facility] Comment on above: Order Comment: Speci men Type: BLOOD SPECIMENOrdering Facility: [facility] Address: [address] [place] [address] Performed By: #### 2 4321-2 ####[facility] LABCLIA [id number] [place] [address] Chloride [Moles/Vol] 105 mmol/L Normal 97-105 [facility] Comment on above: Order Comment: Speci men Type: BLOOD SPECIMENOrdering Facility: [facility] Address: [address] [place] [address] Performed By: #### 2 4321-2 ####[facility] LABCLIA [id number] [place] [address] CO2 [Moles/Vol] 29 mmol/L Normal 22-30 [facility] Comment on above: Order Comment: Speci men Type: BLOOD SPECIMENOrdering Facility: [facility] Address: [address] [place] [address] Performed By: #### 2 4321-2 ####[facility] LABCLIA [id number] [place] [address] Creatinine [Mass/Vol] 0.84 mg/dL Normal 0.58-0.96 [facility] Comment on above: Order Comment: Speci men Type: BLOOD SPECIMENOrdering Facility: [facility] Address: [address] [place] [address] Performed By: #### 2 4321-2 ####[facility] LABCLIA [id number] [place] [address] Creatinine and Glomerular filtration rate.predicted panel (S/P/Bld) 95 mL/min/1.73m??? Normal >=60 [facility] Comment on above: Order Comment: Speci men Type: BLOOD SPECIMENOrdering Facility: [facility] Address: [address] [place] [address] Result Comment: Rachel mated Glomerular Filtration Rate [...] reflect actual GFR. Performed By: #### 2 4321-2 ####[facility] LABCLIA [id number] [place] [address] Glucose [Mass/Vol] 76 mg/dL Normal 74-99 [facility] Comment on above: Order Comment: Peter myles Type: BLOOD SPECIMENOrdering Facility: [facility] Address: [address] [place] [address] Result Comment: The [place] [employer] (ADA) provides guidance for cutoff [...] Standards of Medical Care in Diabetes 2016, [place] [employer]. Diabetes Care. 2016.39(Suppl 1). Performed By: #### 2 4321-2 ####[facility] LABCLIA [id number] [place] [address] Potassium [Moles/Vol] 2.4 mmol/L Critically low 3.7-5.1 [facility] Comment on above: Order Comment: Peter myles Type: BLOOD SPECIMENOrdering Facility: [facility] Address: [address] [place] [address] Performed By: #### 2 4321-2 ####[facility] LABCLIA [id number] [place] [address] Sodium [Moles/Vol] 146 mmol/L High 136-144 [facility] Comment on above: Order Comment: Peter myles Type: BLOOD SPECIMENOrdering Facility: [facility] Address: [address] [place] [address] Performed By: #### 2 4321-2 ####[facility] LABCLIA [id number] [place] [address] Urea nitrogen [Mass/Vol] 9 mg/dL Normal 7-21 [facility] Comment on above: Order Comment: Speci men Type: BLOOD SPECIMENOrdering Facility: [facility] Address: [address] [place], [place] [id number] Performed By: #### 2 4321-2 ####[facility] LABCLIA [id number] [place] [address] Basic metabolic 2000 panelon 11-14-2023 Anion gap [Moles/Vol] 12 mmol/L 9 - 18 mmol/L [facility] Calcium [Mass/Vol] 9.6 mg/dL 8.5 - 10. 2 mg/dL [facility] Chloride [Moles/Vol] 106 mmol/L High 97 - 10 5 mmol/L [facility] CO2 [Moles/Vol] 29 mmol/L 22 - 30 mmol/L [facility] Creatinine [Mass/Vol] 0.66 mg/dL 0.58 - 0.96 mg/dL [facility] Estimated Glomerular Filtration Rate 120 mL/min/1.73m >=60 mL/min/1.7 3m [facility] Glucose [Mass/Vol] 97 mg/dL 74 - 99 mg/dL [facility] Potassium [Moles/Vol] 2.3 mmol/L Critically low 3.7 - 5.1 mmol/L [facility] Sodium [Moles/Vol] 147 mmol/L High 136 - 144 mmol/L [facility] Urea nitrogen [Mass/Vol] 7 mg/dL 7 - 21 mg/dL [facility] Anion gap [Moles/Vol] 12 mmol/L Normal 9-18 [facility] Comment on above: Order Comment: Speci men Type: BLOOD SPECIMENOrdering Facility: [facility] Address: [address] [place] [address] Performed By: #### 2 4321-2 ####[facility] LABCLIA [id number] [place] [address] [place] Calcium [Mass/Vol] 9.6 mg/dL Normal 8.5-10.2 [facility] Comment on above: Order Comment: Speci men Type: BLOOD SPECIMENOrdering Facility: [facility] Address: [address] [place] [address] Performed By: #### 2 4321-2 ####[facility] LABCLIA [id number] [place] [address] [place] Chloride [Moles/Vol] 106 mmol/L High 97-105 [facility] Comment on above: Order Comment: Speci men Type: BLOOD SPECIMENOrdering Facility: [facility] Address: [address] [place] [address] Performed By: #### 2 4321-2 ####[facility] LABCLIA [id number] [place] [address] [place] CO2 [Moles/Vol] 29 mmol/L Normal 22-30 [facility] Comment on above: Order Comment: Speci men Type: BLOOD SPECIMENOrdering Facility: [facility] Address: [address] [place] [address] Performed By: #### 2 4321-2 ####[facility] LABCLIA [id number] [place] [address] [place] Creatinine [Mass/Vol] 0.66 mg/dL Normal 0.58-0.96 [facility] Comment on above: Order Comment: Speci men Type: BLOOD SPECIMENOrdering Facility: [facility] Address: [address] [place] [address] Performed By: #### 2 4321-2 ####[facility] LABCLIA [id number] [place] [address] [place] Creatinine and Glomerular filtration rate.predicted panel (S/P/Bld) 120 mL/min/1.73m??? Normal >=60 [facility] Comment on above: Order Comment: Speci men Type: BLOOD SPECIMENOrdering Facility: [facility] Address: [address] [place] [address] Result Comment: Rachel mated Glomerular Filtration Rate [...] reflect actual GFR. Performed By: #### 2 4321-2 ####[facility] LABIA [id number] [place] [address] [place] Glucose [Mass/Vol] 97 mg/dL Normal 74-99 [facility] Comment on above: Order Comment: Peter myles Type: BLOOD SPECIMENOrdering Facility: [facility] Address: [address] [place] [address] Result Comment: The [place] [employer] (ADA) provides guidance for cutoff [...] Standards of Medical Care in Diabetes 2016, [place] [employer]. Diabetes Care. 2016.39(Suppl 1). Performed By: #### 2 4321-2 ####[facility] LABIA [id number] [place] [address] [place] Potassium [Moles/Vol] 2.3 mmol/L Critically low 3.7-5.1 [facility] Comment on above: Order Comment: Peter myles Type: BLOOD SPECIMENOrdering Facility: [facility] Address: [address] [place] [address] Performed By: #### 2 4321-2 ####[facility] LABCLIA [id number] [place] [address] [place] Sodium [Moles/Vol] 147 mmol/L High 136-144 [facility] Comment on above: Order Comment: Speci men Type: BLOOD SPECIMENOrdering Facility: [facility] Address: [address] [place] [address] Performed By: #### 2 4321-2 ####[facility] LABCLIA [id number] [place] [address] [place] Urea nitrogen [Mass/Vol] 7 mg/dL Normal 7-21 [facility] Comment on above: Order Comment: Speci men Type: BLOOD SPECIMENOrdering Facility: [facility] Address: [address] [place] [address] Performed By: #### 2 4321-2 ####[facility] LABCLIA [id number] [place] [address] [place] CBC W Auto Differential pane l (Bld)on 11-14-2023 Basophils (Bld) [#/Vol] 0.04 10*3/uL Normal <0.11 [facility] Comment on above: Order Comment: Speci men Type: BLOOD SPECIMENOrdering Facility: [facility] Address: [address] [place] [address] Performed By: #### 5 7021-8 ####[facility] LABCLIA [id number] [place] [address] Basophils/100 WBC (Bld) 0.6 % Normal C [facility] Comment on above: Order Comment: Speci men Type: BLOOD SPECIMENOrdering Facility: [facility] Address: [address] [place] [address] Performed By: #### 5 7021-8 ####[facility] LABCLIA [id number] [place] [address] Differential cell count method Nom (Bld) Auto Normal [facility] Comment on above: Order Comment: Speci men Type: BLOOD SPECIMENOrdering Facility: [facility] Address: [address] [place] [address] Performed By: #### 5 7021-8 ####[facility] LABCLIA [id number] [place] [address] Eosinophils (Bld) [#/Vol] 0.10 10*3/uL Normal <0.46 [facility] Comment on above: Order Comment: Speci men Type: BLOOD SPECIMENOrdering Facility: [facility] Address: [address] [place] [address] Performed By: #### 5 7021-8 ####[facility] LABCLIA [id number] [place] [address] Eosinophils/100 WBC (Bld) 1.4 % Normal [facility] Comment on above: Order Comment: Speci men Type: BLOOD SPECIMENOrdering Facility: [facility] Address: [address] [place] [address] Performed By: #### 5 7021-8 ####[facility] LABCLIA [id number] [place] [address] Erythrocyte distribution width (RBC) [Ratio] 14.7 % Normal 11.5-15.0 [facility] Comment on above: Order Comment: Speci men Type: BLOOD SPECIMENOrdering Facility: [facility] Address: [address] [place] [address] Performed By: #### 5 7021-8 ####[facility] LABCLIA [id number] [place] [address] Hematocrit (Bld) [Volume fraction] 43.9 % Normal 36.0-46.0 [facility] Comment on above: Order Comment: Speci men Type: BLOOD SPECIMENOrdering Facility: [facility] Address: [address] [place] [address] Performed By: #### 5 7021-8 ####[facility] LABCLIA [id number] [place] [address] Hemoglobin (Bld) [Mass/Vol] 14.7 g/dL Normal 11.5-15.5 [facility] Comment on above: Order Comment: Speci men Type: BLOOD SPECIMENOrdering Facility: [facility] Address: [address] [place] [address] Performed By: #### 5 7021-8 ####[facility] LABCLIA [id number] [place] [address] Immature granulocytes (Bld) [#/Vol] 10*3/uL Normal <0.10 [facility] Comment on above: Order Comment: Speci men Type: BLOOD SPECIMENOrdering Facility: [facility] Address: [address] [place] [address] Performed By: #### 5 7021-8 ####[facility] LABCLIA [id number] [place] [address] Immature granulocytes/100 WBC (Bld) 0.1 % Normal [facility] Comment on above: Order Comment: Speci men Type: BLOOD SPECIMENOrdering Facility: [facility] Address: [address] [place] [address] Performed By: #### 5 7021-8 ####[facility] LABCLIA [id number] [place] [address] Lymphocytes (Bld) [#/Vol] 1.93 10*3/uL Normal 1.00-4.00 [facility] Comment on above: Order Comment: Speci men Type: BLOOD SPECIMENOrdering Facility: [facility] Address: [address] [place] [address] Performed By: #### 5 7021-8 ####[facility] LABCLIA [id number] [place] [address] Lymphocytes/100 WBC (Bld) 27.7 % Normal [facility] Comment on above: Order Comment: Speci men Type: BLOOD SPECIMENOrdering Facility: [facility] Address: [address] [place] [address] Performed By: #### 5 7021-8 ####[facility] LABCLIA [id number] [place] [address] MCH (RBC) [Entitic mass] 28.5 pg Normal 26.0-34.0 [facility] Comment on above: Order Comment: Speci men Type: BLOOD SPECIMENOrdering Facility: [facility] Address: [address] [place] [address] Performed By: #### 5 7021-8 ####[facility] LABCLIA [id number] [place] [address] MCHC (RBC) [Mass/Vol] 33.5 g/dL Normal 30.5-36.0 [facility] Comment on above: Order Comment: Speci men Type: BLOOD SPECIMENOrdering Facility: [facility] Address: [address] [place] [address] Performed By: #### 5 7021-8 ####[facility] LABCLIA [id number] [place] [address] MCV (RBC) [Entitic vol] 85.2 fL Normal 80.0-100.0 [facility] Comment on above: Order Comment: Speci men Type: BLOOD SPECIMENOrdering Facility: [facility] Address: [address] [place] [address] Performed By: #### 5 7021-8 ####[facility] LABCLIA [id number] [place] [address] Monocytes (Bld) [#/Vol] 0.49 10*3/uL Normal <0.87 [facility] Comment on above: Order Comment: Speci men Type: BLOOD SPECIMENOrdering Facility: [facility] Address: [address] [place] [address] Performed By: #### 5 7021-8 ####[facility] LABCLIA [id number] [place] [address] Monocytes/100 WBC (Bld) 7.0 % Normal [facility] Comment on above: Order Comment: Speci men Type: BLOOD SPECIMENOrdering Facility: [facility] Address: [address] [place] [address] Performed By: #### 5 7021-8 ####[facility] LABCLIA [id number] [place] [address] Neutrophils (Bld) [#/Vol] 4.40 10*3/uL Normal 1.45-7.50 [facility] Comment on above: Order Comment: Speci men Type: BLOOD SPECIMENOrdering Facility: [facility] Address: [address] [place] [address] Performed By: #### 5 7021-8 ####[facility] LABCLIA [id number] [place] [address] Neutrophils/100 WBC (Bld) 63.2 % Normal [facility] Comment on above: Order Comment: Speci men Type: BLOOD SPECIMENOrdering Facility: [facility] Address: [address] [place] [address] Performed By: #### 5 7021-8 ####[facility] LABCLIA [id number] [place] [address] Nucleated RBC (Bld) [#/Vol] 10*3/uL Normal <0.01 [facility] Comment on above: Order Comment: Speci men Type: BLOOD SPECIMENOrdering Facility: [facility] Address: [address] [place] [address] Performed By: #### 5 7021-8 ####[facility] LABCLIA [id number] [place] [address] Nucleated RBC/100 WBC (Bld) [Ratio] 0.0 /100 WBC Normal [facility] Comment on above: Order Comment: Speci men Type: BLOOD SPECIMENOrdering Facility: [facility] Address: [address] [place] [address] Performed By: #### 5 7021-8 ####[facility] LABCLIA [id number] [place] [address] Platelet mean volume (Bld) [Entitic vol] 11.3 fL Normal 9.0-12.7 [facility] Comment on above: Order Comment: Speci men Type: BLOOD SPECIMENOrdering Facility: [facility] Address: [address] [place] [address] Performed By: #### 5 7021-8 ####[facility] LABCLIA [id number] [place] [address] Platelets (Bld) [#/Vol] 204 10*3/uL Normal 150-400 [facility] Comment on above: Order Comment: Speci men Type: BLOOD SPECIMENOrdering Facility: [facility] Address: [address] [place] [address] Performed By: #### 5 7021-8 ####[facility] LABIA [id number] [place] [address] RBC (Bld) [#/Vol] 5.15 10*6/uL Normal 3.90-5.20 [facility] Comment on above: Order Comment: Speci men Type: BLOOD SPECIMENOrdering Facility: [facility] Address: [address] [place] [address] Performed By: #### 5 7021-8 ####[facility] LABCLIA [id number] [place] [address] WBC (Bld) [#/Vol] 6.97 10*3/uL Normal 3.70-11.00 [facility] Comment on above: Order Comment: Speci men Type: BLOOD SPECIMENOrdering Facility: [facility] Address: [address] [place] [address] Performed By: #### 5 7021-8 ####[facility] LABCLIA [id number] [place] [address] Basophils (Bld) [#/Vol] 0.04 10*3/uL <0.11 k/uL [facility] Basophils/100 WBC (Bld) 0.6 % C [facility] Differential cell count method Nom (Bld) Auto [facility] Eosinophils (Bld) [#/Vol] 0.10 10*3/uL <0.46 k/uL [facility] Eosinophils/100 WBC (Bld) 1.4 % [facility] Erythrocyte distribution width (RBC) [Ratio] 14.7 % 11.5 - 15.0 % [facility] Hematocrit (Bld) [Volume fraction] 43.9 % 36.0 - 46.0 % [facility] Hemoglobin (Bld) [Mass/Vol] 14.7 g/dL 11.5 - 15.5 g/dL [facility] Immature granulocytes (Bld) [#/Vol] <0.10 k/uL [facility] Immature granulocytes/100 WBC (Bld) 0.1 % [facility] Lymphocytes (Bld) [#/Vol] 1.93 10*3/uL 1.00 - 4.00 k/uL [facility] Lymphocytes/100 WBC (Bld) 27.7 % [facility] MCH (RBC) [Entitic mass] 28.5 pg 26.0 - 34.0 pg [facility] MCHC (RBC) [Mass/Vol] 33.5 g/dL 30.5 - 36.0 g/dL [facility] MCV (RBC) [Entitic vol] 85.2 fL 80.0 - 100.0 fL [facility] Monocytes (Bld) [#/Vol] 0.49 10*3/uL <0.87 k/uL [facility] Monocytes/100 WBC (Bld) 7.0 % C [facility] Neutrophils (Bld) [#/Vol] 4.40 10*3/uL 1.45 - 7.50 k/uL [facility] Neutrophils/100 WBC (Bld) 63.2 % [facility] Nucleated RBC (Bld) [#/Vol] <0.01 k/uL [facility] Nucleated RBC/100 WBC (Bld) [Ratio] 0.0 /100 WBC [facility] Platelet mean volume (Bld) [Entitic vol] 11.3 fL 9.0 - 12.7 fL [facility] Platelets (Bld) [#/Vol] 204 10*3/uL 150 - 400 k/uL [facility] RBC (Bld) [#/Vol] 5.15 10*6/uL 3.90 - 5.20 m/uL [facility] WBC (Bld) [#/Vol] 6.97 10*3/uL 3.70 - 11.00 k/uL [facility] CNPNon 11-14-2023 CNPN Telephone (ENDOMN) -- HEIDI JOY ([id number]) 1990 F Date Time Provider Department 11/14/23 ARIANNA LORA ENDOZAKIA During your visit today, we recorded the following information about you: Arianna Lroa MD 11/14/2023 7:14 PM Signed Was paged with critical lab 2.3. I called patient, no answer. I left a voice message with lab results and the need to take extra potassium tablets today and repeat potassium tomorrow, she was provided with call back number as well to call with questions. Arianna Lora MD Clinical Fellow PGY-5 Endocrinology and Metabolism [place] Pager:[phone] Allergies As of Date: 11/14/2023 (No Known Allergies) Date Reviewed: 10/23/2023 Reviewed by: Digna Brody RN - Fully Assessed Reason for Visit: Returning Patient's Call [408] Results [95] Primary Visit Diagnosis:Primary hyperaldosteronism (HCC) [E26.09] Order(s):BASIC METABOLIC PANEL [SQBMP] Order #: [id number] FUTURE Prescriptions as of 11/14/2023 - busPIRone (BUSPAR) 10 mg tablet TAKE [...] twice daily. Problem List As Of Date 11/14/2023 Noted Resolved Hidradenitis suppurativa of right axilla [L73.2]10/27/2012 Comedone [L70.0] 10/27/2012 Iron deficiency [E61.1] 02/02/2020 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] 09/04/2023 Primary hyperaldosteronism (HCC) [E26.09] 09/04/2023 Encounter Status:Closed by ARIANNA LORA on 11/14/23 Normal [facility] CONFIRM BLOOD TYPEon 024 ABO B Normal [facility] Comment on above: Order Comment: Speci men Type: BLOOD SPECIMENOrdering Facility: [facility] Address: [address] [place] [address] Performed By: #### C ONABO ####CC MAIN BLOOD BANKCLIA [id number] [place] [address] [place] Rh Nom (Bld) Negative Normal [facility] Comment on above: Order Comment: Speci men Type: BLOOD SPECIMENOrdering Facility: [facility] Address: [address] [place] [address] Performed By: #### C ONABO ####CC MAIN BLOOD BANKCLIA [id number] [place] [address] [place] TYPE AND SCREEN,30 DAYon ABO B Normal [facility] Comment on above: Order Comment: Speci men Type: BLOOD SPECIMENOrdering Facility: [facility] Address: [address] [place] [address] Performed By: #### T SCR30 ####CC MAIN BLOOD BANKCLIA [id number] [address] OF [place] HISTORICAL AB SCR STATUS Negative Normal [facility] Comment on above: Order Comment: Speci men Type: BLOOD SPECIMENOrdering Facility: [facility] Address: [address] [place] [address] Performed By: #### T SCR30 ####CC MAIN BLOOD BANKCLIA [id number] [address] OF [place] Rh Nom (Bld) Negative Normal [facility] Comment on above: Order Comment: Speci men Type: BLOOD SPECIMENOrdering Facility: [facility] Address: [address] [place] [address] Performed By: #### T SCR30 ####CC MAIN BLOOD BANKCLIA [id number] [address] OF [facility] CNPNon 10-25-2023 CNPN Telephone (SHANE) -- HEIDI JOY ([id number]) 1990 F Date Time Provider Department 10/25/23 MARIO SANTIAGO During your visit today, we recorded the following information about you: Mario Santiago MD 10/25/2023 4:58 PM Signed AVS lateralized to the left adrenal gland with a ratio of 35:1. I recommended laparoscopic left adrenalectomy lateral transabdominal or posterior approach. Will decide on the day of the surgery. Will schedule her surgery. Mario Santiago MD Allergies As of Date: 10/25/2023 (No Known Allergies) Date Reviewed: 10/23/2023 Reviewed by: Digna Brody, JAVAN - Fully Assessed Reason for Visit: [employer] - Other [3602] Prescriptions as of 10/25/2023 - busPIRone (BUSPAR) 10 mg tablet TAKE [...] twice daily. Problem List As Of Date 10/25/2023 Noted Resolved Hidradenitis suppurativa of right axilla [L73.2]10/27/2012 Comedone [L70.0] 10/27/2012 Iron deficiency [E61.1] 02/02/2020 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] 09/04/2023 Primary hyperaldosteronism (HCC) [E26.09] 09/04/2023 Encounter Status:Closed by MARIO SANTIAGO on 10/25/23 Normal [facility] Aldost SerPl-mCncon 10-23-19 Aldosterone [Mass/Vol] 131.0 ng/dL High 0.0-<35.4 C [facility] Comment on above: Order Comment: Speci men Type: BLOOD SPECIMENOrdering Facility: [facility] Address: [address] [place] [address] Result Comment: The reference interval for serum/plasma [...] equal to 15 ng/dL. Performed By: #### 1 763-2 ####[facility] LABCLIA [id number] [place] [address] [place] Aldosterone [Mass/Vol] 7780.0 ng/dL High 0.0-<35.4 [facility] Comment on above: Order Comment: Peter myles Type: BLOOD SPECIMENOrdering Facility: [facility] Address: [address] [place] [address] Result Comment: The reference interval for serum/plasma [...] equal to 15 ng/dL. Performed By: #### 1 763-2 ####[facility] LABCLIA [id number] [place] [address] [place] Aldosterone [Mass/Vol] 5530.0 ng/dL High 0.0-<35.4 [facility] Comment on above: Order Comment: Peter myles Type: BLOOD SPECIMENOrdering Facility: [facility] Address: [address] [place] [address] Result Comment: The reference interval for serum/plasma [...] equal to 15 ng/dL. Performed By: #### 1 763-2 ####[facility] LABCLIA [id number] [place] [address] [place] Aldosterone [Mass/Vol] 6190.0 ng/dL High 0.0-<35.4 [facility] Comment on above: Order Comment: Peter myles Type: BLOOD SPECIMENOrdering Facility: [facility] Address: [address] [place] [address] Result Comment: The reference interval for serum/plasma [...] equal to 15 ng/dL. Performed By: #### 1 763-2 ####[facility] LABCLIA [id number] [place] [address] [place] Aldosterone [Mass/Vol] 173.0 ng/dL High 0.0-<35.4 C [facility] Comment on above: Order Comment: Peter myles Type: BLOOD SPECIMENOrdering Facility: [facility] Address: [address] [place] [address] Result Comment: The reference interval for serum/plasma [...] equal to 15 ng/dL. Performed By: #### 1 763-2 ####[facility] LABCLIA [id number] [place] [address] [place] Aldosterone [Mass/Vol] 160.0 ng/dL High 0.0-<35.4 C [facility] Comment on above: Order Comment: Joselyni men Type: TIMED URINE SPECIMEN Ordering Facility: [facility] Address: [address] [place] [address] Result Comment: The reference interval for serum/plasma [...] equal to 15 ng/dL. Performed By: #### U METAN #### [facility] LAB CLIA [id number] [address] [place] [address] OF [facility] CLIA [id number] [address] [place] [address] Aldosterone [Mass/Vol] 166.0 ng/dL High 0.0-<35.4 C [facility] Comment on above: Order Comment: Speci men Type: BLOOD SPECIMENOrdering Facility: [facility] Address: [address] [place] [address] Result Comment: The reference interval for serum/plasma [...] equal to 15 ng/dL. Performed By: #### 1 763-2 ####[facility] LABCLIA [id number] [address] [place] BRIEF OP NOTon 10-23-2023 BRIEF OP NOT HNO ID: [id number] Author: FERMIN YI MD Service: Interventional Radiology Author Type: Physician Type: Brief Op Note Filed: 10/23/2023 13:55 Note Text: BRIEF OPERATIVE / PROCEDURE NOTE LOG ID: [id number] SURGERY/PROCEDURE DATE: 10/23/2023 INCISION/PROCEDURE START TIME: 1:21 PM INCISION CLOSE/PROCEDURE END TIME: SURGEON(S)/PROCEDURALIST(S ) AND SUPERVISOR BRINE(S): Surgeon(s) and Role: * Fermin Yi MD - Primary No Additional Staff SURGERY/PROCEDURE(S): Adrenal venous sampling ANESTHESIA: Procedural Sedation FINDINGS: Bilateral adrenal venous samples obtained. RT CFV access. Hemostasis by manual compression. 1335: Right Adrenal vein 1336: Right Adrenal vein 1337: Right Adrenal vein 1342: Left Adrenal vein 1343: Left Adrenal vein 1344: Left Adrenal vein 1345: IVC ESTIMATED BLOOD LOSS: minimal SPECIMENS: 7 COMPLICATIONS: None CLOSURE TECHNIQUE: Primary PRE-OP/PRE-PROCEDURE DIAGNOSIS: Hyperaldo POST-OP/POST-PROCEDURE DIAGNOSIS: Same as Preop SIGNATURE: Fermin Yi MD PATIENT NAME: Heidi Joy DATE: October 23, 2023 TIME: 1:46 PM Normal [facility] Cortis SerPl-ncon 10-23-19 Cortisol [Mass/Vol] 17.4 ug/dL Normal 4.8-19.5 [facility] Comment on above: Order Comment: Speci men Type: BLOOD SPECIMENOrdering Facility: [facility] Address: [address] [place] [address] Result Comment: Prov ided reference range is from 6-10 AM sample collection time. Cortisol Reference Range: 6-10 AM = 4.8-19.5 ug/dL, 4-8 PM = 2.5-11.9 ug/dL Performed By: #### 2 143-6 ####[facility] LABCLIA [id number] [facility] [id number] [address] [place] Cortisol [Mass/Vol] 197.4 ug/dL High 4.8-19.5 [facility] Comment on above: Order Comment: Speci shar Type: BLOOD SPECIMENOrdering Facility: [facility] Address: [address] [place] [address] Result Comment: Prov ided reference range is from 6-10 AM sample collection time. Cortisol Reference Range: 6-10 AM = 4.8-19.5 ug/dL, 4-8 PM = 2.5-11.9 ug/dL Performed By: #### 2 143-6 ####[facility] LABCLIA [id number] [place] [address] [place] Cortisol [Mass/Vol] 149.2 ug/dL High 4.8-19.5 [facility] Comment on above: Order Comment: Speci men Type: TIMED URINE SPECIMEN Ordering Facility: [facility] Address: [address] [place] [address] Result Comment: Prov ided reference range is from 6-10 AM sample collection time. Cortisol Reference Range: 6-10 AM = 4.8-19.5 ug/dL, 4-8 PM = 2.5-11.9 ug/dL Performed By: #### U METAN #### [facility] CLIA [id number] [address] [place] [address] [place] [facility] CLIA [id number] [address] [place] [address] Cortisol [Mass/Vol] 163.9 ug/dL High 4.8-19.5 [facility] Comment on above: Order Comment: Speci men Type: BLOOD SPECIMENOrdering Facility: [facility] Address: [address] [place] [address] Result Comment: Prov ided reference range is from 6-10 AM sample collection time. Cortisol Reference Range: 6-10 AM = 4.8-19.5 ug/dL, 4-8 PM = 2.5-11.9 ug/dL Performed By: #### 2 143-6 ####[facility] LABCLIA [id number] [place] [address] [place] Cortisol [Mass/Vol] 152.5 ug/dL High 4.8-19.5 [facility] Comment on above: Order Comment: Speci men Type: BLOOD SPECIMENOrdering Facility: [facility] Address: [address] [place] [address] Result Comment: Prov ided reference range is from 6-10 AM sample collection time. Cortisol Reference Range: 6-10 AM = 4.8-19.5 ug/dL, 4-8 PM = 2.5-11.9 ug/dL Performed By: #### 2 143-6 ####[facility] LABCLIA [id number] [address] Cortisol [Mass/Vol] 150.7 ug/dL High 4.8-19.5 [facility] Comment on above: Order Comment: Speci men Type: BLOOD SPECIMENOrdering Facility: [facility] Address: [address] [place] [address] Result Comment: Prov ided reference range is from 6-10 AM sample collection time. Cortisol Reference Range: 6-10 AM = 4.8-19.5 ug/dL, 4-8 PM = 2.5-11.9 ug/dL Performed By: #### 2 143-6 ####[facility] LABCLIA [id number] [address] STATES [facility] Cortisol [Mass/Vol] 158.4 ug/dL High 4.8-19.5 [facility] Comment on above: Order Comment: Speci men Type: BLOOD SPECIMENOrdering Facility: [facility] Address: [address] [place] [address] Result Comment: Prov ided reference range is from 6-10 AM sample collection time. Cortisol Reference Range: 6-10 AM = 4.8-19.5 ug/dL, 4-8 PM = 2.5-11.9 ug/dL Performed By: #### 2 143-6 ####[facility] LABCLIA [id number] [place] [address] [place] HISTORY PHYSICALon HISTORY PHYSICAL HNO ID: [id number] Author: FERMIN YI MD Service: Interventional Radiology Author Type: Physician Type: H&P Filed: 10/23/2023 12:09 Note Text: RADIOLOGY PROCEDURAL SEDATION HISTORY AND PHYSICAL EXAM SERVICE DATE: 10/23/2023 SERVICE TIME: 12:09 PM Subjective HPI: This is a 33 year old female who presents with left adrenal adenoma, here for AVS PROCEDURE SCHEDULED: Procedure(s) with comments: VENOUS CATHETERIZATION FOR SELECTIVE ORGAN BLOOD SAMPLING (N/A) - AVS (JUAN) SFERRI C RADIOLOGY ORDER PLACED: PAST ANESTHESIA HISTORY: No history of adverse event PAST MEDICAL HISTORY Diagnosis Date Kidney stones Malignant brain tumor (HCC) 08/[address] Lema Microcytic anemia Otalgia of right ear PCOS (polycystic ovarian syndrome) Plantar fasciitis No past surgical history on file. Prior to Admission medications as of 10/23/23 1023 Medication Sig Last Dose Taking busPIRone (BUSPAR) 10 mg tablet TAKE 1 TABLET (10 MG) BY MOUTH IN THE MORNING AND BEFORE BEDTIME 10/14/2023 hydrALAZINE (APRESOLINE) 100 mg tablet Take 1 tablet by mouth two times a day. carvedilol (COREG) 25 mg tablet Take 1 tablet by mouth two times a day. gabapentin (NEURONTIN) 400 mg capsule 1 capsule. 10/04/2023 lamoTRIgine (LAMICTAL) 150 mg tablet Take 150 mg by mouth. lurasidone (LATUDA) 60 mg tab tablet Take 60 mg by mouth. REXULTI 1 mg tablet TAKE 1 TABLET BY MOUTH ONCE DAILY AT THE SAME TIME potassium chloride ER (KLOR-CON) 20 mEq tablet Take 20 mEq by mouth. 10/21/2023 SUMAtriptan (IMITREX) 100 mg tablet TAKE 1 TAB AT MIGRAINE ONSET, MAY REPEAT IN 2 HOURS NEEDED, MAX 2 TABS IN 24 HOURS 10/04/2023 zolpidem (AMBIEN) 10 mg 10/04/2023 Ferrous Sulfate 27 mg iron tab Take by mouth twice daily. ALLERGIES No Known Allergies Objective PHYSICAL EXAM: The remainder of the physical exam is noncontributory. AIRWAY: Airway Visualization of Uvula: No (See Comment) Mouth opening greater than 2 fingerbreadths: Yes Neck Full Range of Motion: Yes LUNGS: Negative CARDIAC: Normal S1 and S2; no rubs, murmurs, or gallops Assessment/Plan ASA Class: ASA Class:: Patient with mild systemic disease Provisional Diagnosis/Treatment Plan: Adrenal venous sampling +/- moderate sedation SEDATION GOAL: Moderate SIGNATURE: Fermin Yi MD PATIENT NAME: Heidi Joy DATE: October 23, 2023 TIME: 12:09 PM Normal [facility] IR VENOUS SAMPLINGon 024 IR VENOUS SAMPLING * * *Final Report* * * DATE OF EXAM: Oct 23 2023 1:50PM [facility] 0820 - IR VENOUS SAMPLING / PROCEDURE REASON: Hyperaldosteronism (HCC) * * * * Physician Interpretation * * * * PROCEDURE: BILATERAL ADRENAL VEIN SAMPLING. HISTORY: 33 year old female with uncontrolled HTN and left adrenal Adenoma. Request for bilateral adrenal venous samplings. K = 2.8, on supplements. CONSENT: Risks, benefits, treatment options, potential complications and personnel to be involved were discussed (including the risks of radiation exposure, contrast and anesthesia administration, and any equipment needed for the procedure to ensure best possible outcome) with the patient and all questions were answered and consent was obtained prior to procedure. MEDICATION RECONCILIATION: The patient's medications and allergies were reviewed in the electronic medical record and reconciled to the proposed procedure/treatment. SADIA-PROCEDURE DISCUSSION: The appropriate elements of the pre-procedure discussion, safety check list and sign-out were performed. TIME OUT: A time out was performed immediately prior to procedure start with the nursing, and interventional team, correctly identifying the name, date of , procedure, anatomy (including marking of site and side if applicable), patient position, procedure consent form, relevant diagnostic and radiology test results, antibiotic administration if applicable, safety precautions, and procedure-specific equipment needs. Start of procedure: 1321 End of procedure: 1350 Patient position: Supine Anesthesia: No sedation Intra-service time (monitoring for moderate sedation): 0 minutes Patient monitoring: I personally supervised and directed an independent trained observer who assisted in monitoring the patient?s level of consciousness and physiological status throughout the procedure. Local anesthesia: 2 % lidocaine ANTIBIOTICS: None Antibiotic infusion start time: N/A ADDITIONAL MED: Cosyntropin CONTRAST DOSE: 33 cc of OMNIPAQUE 240 was injected into the venous system during the procedure. IMAGE GUIDANCE: Fluoroscopic and sonographic guidance was used. Ultrasound demonstrated patency of the target vein without filling defects. Access was obtained under direct sonographic visualization. A sonographic image of the vessel was obtained and placed into the permanent archive for documentation. FLUOROSCOPIC RADIATION SUMMARY: Plane A, Air Kerma: 321.0 mGy Dose Area Product (DAP): Fluoro Time: 11:23 min:sec Radiation dose exceed 5 Gy: No If radiation dose exceeded 5 Gy, was counseling and instructional brochure provided: N/A ACCESS: right common femoral vein ACCESS HEMOSTASIS: Manual Compression. TECHNIQUE: The patient was prepped and draped using all elements of maximal sterile barrier technique (cap, mask, sterile gown, sterile gloves, a large sterile sheet, hand hygiene and cutaneous antisepsis), sterile ultrasound gel and sterile ultrasound probe covers. An intravenous infusion of Cortrosyn was initiated 20 minutes before the procedure and then continued throughout the duration of the procedure. Local anesthesia was instilled and the right common femoral vein was cannulated under direct ultrasound guidance using micropuncture technique. A 6 [place] Helenian 45 cm sheath was placed. Through this, a 5 [place] Helenian catheter (RG2) was used to locate the right adrenal vein using fluoroscopic guidance, and microwire was then advanced into the right adrenal vein and a sample was obtained. The location of the catheter tip in the right adrenal vein was verified with contrast injection. Next, a re-curved catheter (RG1) was used to cannulate the left adrenal vein using fluoroscopic guidance, and microwire was then advanced into and a sample of blood was obtained. The location of the catheter tip in the left adrenal vein was verified with contrast injection. The sheath was then used to obtain low inferior vena caval sample. All samples were then sent to the appropriate laboratory for assay of aldosterone and cortisol levels. At the end of the procedure, the catheter and the sheath were removed and good hemostasis was achieved at the femoral puncture site with manual compression. The patient tolerated the procedure well. There were no immediate complications. . The patient tolerated the procedure well. There were no significant complications and no other complications during the procedure. CONCLUSION: The patient was comfortable and was transferred to the recovery room in stable condition. Estimated Blood Loss: Minimal Number and Type of Removed Specimens: A total of 7 tubes of blood were obtained from the following sites and sent to the laboratory for cortisol and aldosterone assays: 1335 RIGHT adrenal vein 1336 RIGHT adrenal vein 1337 RIGHT adrenal vein 1342 LEFT adrenal vein 1343 LEFT adrenal vein 1344 LEFT adrenal vein 1345 Infr (more content not included)... Normal [facility] NURSING PROGon 10-23-2023 NURSING PROG HNO ID: [id number] Author: MUSA HERNANDEZ RN Service: Nursing Author Type: Registered Nurse Type: Nursing Progress Note Filed: 10/24/2023 08:11 Note Text: Attempted post procedure phone call. Left VM for patient to return call to [phone] with any questions/concerns. Normal [facility] PT EDon 10-23-2023 PT ED HNO ID: [id number] Author: TEAGAN NAYAK RN Service: Nursing Author Type: Registered Nurse Type: Patient Education Filed: 10/23/2023 12:58 Note Text: AMBULATORY PATIENT EDUCATION TOPIC: Survival Skills: SURVIVAL SKILLS: Fall Risk Pain Management Safety Precautions READINESS TO LEARN COGNITIVE ABILITY: Alert and oriented MOTIVATION TO LEARN: Interested FAMILY SUPPORT: High - Very involved in pt care INSTRUCTION PROVIDED TO: Patient and family member PATIENT LEARNS BEST BY: Individual Instruction FACTORS AFFECTING LEARNING: None PHYSICAL LIMITATIONS AFFECTING LEARNING: None LEARNING RESPONSE DIAGNOSIS: adenoma L adrenal METHOD OF INSTRUCTION: Individual instruction PATIENT / FAMILY RESPONSE: Information received as demonstrated by interest and questions FOLLOW-UP PLAN: Complete - No need for follow-up SUPPLEMENTAL MATERIAL: None REFERRAL (RECOMMENDATION): None Electronically Signed By: Teagan aNyak RN In Department: [facility] MAIN [id number] Normal [facility] CBC W Auto Differential pane l (Bld)on 10-22-2023 Basophils (Bld) [#/Vol] 0.04 10*3/uL Normal <0.11 [facility] Comment on above: Order Comment: Speci men Type: TIMED URINE SPECIMEN Ordering Facility: [facility] Address: [address] [place] [address] Performed By: #### U METAN #### [facility] CLIA [id number] [address] [place] [address] STATES OF [facility] CLIA [id number] [address] [place] [address] Basophils/100 WBC (Bld) 0.5 % Normal C [facility] Comment on above: Order Comment: Speci men Type: TIMED URINE SPECIMEN Ordering Facility: [facility] Address: [address] [place] [address] Performed By: #### U METAN #### [facility] CLIA [id number] [address] [place] [address] [facility] CLIA [id number] [address] [place] [address] 21532 Differential cell count method Nom (Bld) Auto Normal [facility] Comment on above: Order Comment: Speci men Type: TIMED URINE SPECIMEN Ordering Facility: [facility] Address: [address] [place] [address] Performed By: #### U METAN #### [facility] CLIA [id number] [address] [place], [place] [address] [facility] CLIA [id number] [address] [place] [address] Eosinophils (Bld) [#/Vol] 0.22 10*3/uL Normal <0.46 [facility] Comment on above: Order Comment: Speci men Type: TIMED URINE SPECIMEN Ordering Facility: [facility] Address: [address] [place] [address] Performed By: #### U METAN #### [facility] CLIA [id number] [address] [place] [address] LAB CLIA [id number] [address] [place] [address]6553 Eosinophils/100 WBC (Bld) 2.9 % Normal [facility] Comment on above: Order Comment: Speci men Type: TIMED URINE SPECIMEN Ordering Facility: [facility] Address: [address] [place] [address] Performed By: #### U METAN #### [facility] CLIA [id number] [address] [place], [place] [address] [facility] CLIA [id number] [address] [place] [address]93 Erythrocyte distribution width (RBC) [Ratio] 15.1 % High 11.5-15.0 [facility] Comment on above: Order Comment: Speci men Type: TIMED URINE SPECIMEN Ordering Facility: [facility] Address: [address] [place] [id number] Performed By: #### U METAN #### [facility] CLIA [id number] [address] [place], [place] [address] [facility] CLIA [id number] [address] [place] [address] Hematocrit (Bld) [Volume fraction] 41.0 % Normal 36.0-46.0 [facility] Comment on above: Order Comment: Speci men Type: TIMED URINE SPECIMEN Ordering Facility: [facility] Address: [address] [place], [place] [address] Performed By: #### U METAN #### [facility] CLIA [id number] [address] [place], [place] [address] [facility] CLIA [id number] [address] [place] [address]85 Hemoglobin (Bld) [Mass/Vol] 13.4 g/dL Normal 11.5-15.5 [facility] Comment on above: Order Comment: Speci men Type: TIMED URINE SPECIMEN Ordering Facility: [facility] Address: [address] [place] [address] Performed By: #### U METAN #### [facility] CLIA [id number] [address] [place], [place] [address] [facility] CLIA [id number] [address] [place] [address] 11787 Immature granulocytes (Bld) [#/Vol] 10*3/uL Normal <0.10 [facility] Comment on above: Order Comment: Speci men Type: TIMED URINE SPECIMEN Ordering Facility: [facility] Address: [address] [place] [id number] Performed By: #### U METAN #### [facility] CLIA [id number] [address] [place], [place] [address] [facility] CLIA [id number] [address] [place] [address] Immature granulocytes/100 WBC (Bld) 0.3 % Normal [facility] Comment on above: Order Comment: Speci men Type: TIMED URINE SPECIMEN Ordering Facility: [facility] Address: [address] [place] [address] Performed By: #### U METAN #### [facility] CLIA [id number] [address] [place] [address] LAB CLIA [id number] [address] [place] [address]5925 Lymphocytes (Bld) [#/Vol] 2.51 10*3/uL Normal 1.00-4.00 [facility] Comment on above: Order Comment: Speci men Type: TIMED URINE SPECIMEN Ordering Facility: [facility] Address: [address] [place] [address] Performed By: #### U METAN #### [facility] CLIA [id number] [address] [place] [address] LAB CLIA [id number] [address] [place] [address] 76355 Lymphocytes/100 WBC (Bld) 33.2 % Normal [facility] Comment on above: Order Comment: Speci men Type: TIMED URINE SPECIMEN Ordering Facility: [facility] Address: [address] [place] [address] Performed By: #### U METAN #### [facility] CLIA [id number] [address] [place] [address] LAB CLIA [id number] [address] [place] [address]5527 MCH (RBC) [Entitic mass] 28.9 pg Normal 26.0-34.0 [facility] Comment on above: Order Comment: Speci men Type: TIMED URINE SPECIMEN Ordering Facility: [facility] Address: [address] [place] [address] Performed By: #### U METAN #### [facility] CLIA [id number] [address] [place] [address] [facility] CLIA [id number] [address] [place] [address] 23475 MCHC (RBC) [Mass/Vol] 32.7 g/dL Normal 30.5-36.0 [facility] Comment on above: Order Comment: Speci men Type: TIMED URINE SPECIMEN Ordering Facility: [facility] Address: [address] [place] [address] Performed By: #### U METAN #### [facility] CLIA [id number] [address] [place] [address] LAB CLIA [id number] [address] [place] [address] 24772 MCV (RBC) [Entitic vol] 88.4 fL Normal 80.0-100.0 C [facility] Comment on above: Order Comment: Speci men Type: TIMED URINE SPECIMEN Ordering Facility: [facility] Address: [address] [place] [address] Performed By: #### U METAN #### [facility] CLIA [id number] [address] [place], [place] [address] [facility] CLIA [id number] [address] [place] [address]9627 Monocytes (Bld) [#/Vol] 0.51 10*3/uL Normal <0.87 [facility] Comment on above: Order Comment: Speci men Type: TIMED URINE SPECIMEN Ordering Facility: [facility] Address: [address] [place] [address] Performed By: #### U METAN #### [facility] CLIA [id number] [address] [place], [place] [address] [facility] CLIA [id number] [address] [place] [address] 18204 Monocytes/100 WBC (Bld) 6.7 % Normal C [facility] Comment on above: Order Comment: Speci men Type: TIMED URINE SPECIMEN Ordering Facility: [facility] Address: [address] [place] [address] Performed By: #### U METAN #### [facility] CLIA [id number] [address] [place], [place] [address] [facility] CLIA [id number] [address] [place] [address] 98231 Neutrophils (Bld) [#/Vol] 4.26 10*3/uL Normal 1.45-7.50 [facility] Comment on above: Order Comment: Speci men Type: TIMED URINE SPECIMEN Ordering Facility: [facility] Address: [address] [place] [address] Performed By: #### U METAN #### [facility] CLIA [id number] [address] [place] [address] LAB CLIA [id number] [address] [place] [address]1052 Neutrophils/100 WBC (Bld) 56.4 % Normal [facility] Comment on above: Order Comment: Speci men Type: TIMED URINE SPECIMEN Ordering Facility: [facility] Address: [address] [place] [address] Performed By: #### U METAN #### [facility] CLIA [id number] [address] [place] [address] LAB CLIA [id number] [address] [place] [address] 42225 Nucleated RBC (Bld) [#/Vol] 10*3/uL Normal <0.01 [facility] Comment on above: Order Comment: Speci men Type: TIMED URINE SPECIMEN Ordering Facility: [facility] Address: [address] [place] [address] Performed By: #### U METAN #### [facility] CLIA [id number] [address] [place] [address] [facility] CLIA [id number] [address] [place] [address] Nucleated RBC/100 WBC (Bld) [Ratio] 0.0 /100 WBC Normal [facility] Comment on above: Order Comment: Speci men Type: TIMED URINE SPECIMEN Ordering Facility: [facility] Address: [address] [place] [address] Performed By: #### U METAN #### [facility] CLIA [id number] [address] [place] [address] LAB CLIA [id number] [address] [place] [address] 92099 Platelet mean volume (Bld) [Entitic vol] 11.5 fL Normal 9.0-12.7 [facility] Comment on above: Order Comment: Speci men Type: TIMED URINE SPECIMEN Ordering Facility: [facility] Address: [address] [place] [address] Performed By: #### U METAN #### [facility] CLIA [id number] [address] [place] [address] LAB CLIA [id number] [address] [place] [address] 61860 Platelets (Bld) [#/Vol] 198 10*3/uL Normal 150-400 [facility] Comment on above: Order Comment: Speci men Type: TIMED URINE SPECIMEN Ordering Facility: [facility] Address: [address] [place] [address] Performed By: #### U METAN #### [facility] CLIA [id number] [address] [place] [address] LAB CLIA [id number] [address] [place] [address] 18186 RBC (Bld) [#/Vol] 4.64 10*6/uL Normal 3.90-5.20 [facility] Comment on above: Order Comment: Speci men Type: TIMED URINE SPECIMEN Ordering Facility: [facility] Address: [address] [place] [address] Performed By: #### U METAN #### [facility] CLIA [id number] [address] [place] [address] LAB CLIA [id number] [address] [place] [address] 10542 WBC (Bld) [#/Vol] 7.56 10*3/uL Normal 3.70-11.00 [facility] Comment on above: Order Comment: Speci men Type: TIMED URINE SPECIMEN Ordering Facility: [facility] Address: [address] [place] [address] Performed By: #### U METAN #### [facility] CLIA [id number] [address] [place] [address] LAB CLIA [id number] [address] [place] [address] 36145 Comprehensive metabolic 2000 panelon 10-22-2023 Albumin [Mass/Vol] 4.0 g/dL Normal 3.9-4.9 [facility] Comment on above: Order Comment: Speci men Type: TIMED URINE SPECIMEN Ordering Facility: [facility] Address: [address] [place] [address] Performed By: #### U METAN #### [facility] CLIA [id number] [address] [place] [address] LAB CLIA [id number] [address] [place] [address] 09822 ALP [Catalytic activity/Vol] 139 U/L High 34-123 [facility] Comment on above: Order Comment: Speci men Type: TIMED URINE SPECIMEN Ordering Facility: [facility] Address: [address] [place], [place] [address] Performed By: #### U METAN #### [facility] CLIA [id number] [address] [place] [address] OF [facility] CLIA [id number] [address] [place] [address] ALT [Catalytic activity/Vol] 10 U/L Normal 7-38 [facility] Comment on above: Order Comment: Speci men Type: TIMED URINE SPECIMEN Ordering Facility: [facility] Address: [address] [place], [place] [address] Performed By: #### U METAN #### [facility] CLIA [id number] [address] [place] [address] [facility] CLIA [id number] [address] [place] [address] 17416 Anion gap [Moles/Vol] 3 mmol/L Low 9-18 [facility] Comment on above: Order Comment: Speci men Type: TIMED URINE SPECIMEN Ordering Facility: [facility] Address: [address] [place] [address] Performed By: #### U METAN #### [facility] CLIA [id number] [address] [place], [place] [address] [facility] CLIA [id number] [address] [place] [address] 96663 AST [Catalytic activity/Vol] 14 U/L Normal 13-35 [facility] Comment on above: Order Comment: Speci men Type: TIMED URINE SPECIMEN Ordering Facility: [facility] Address: [address] [place], [place] [address] Performed By: #### U METAN #### [facility] CLIA [id number] [address] [place] [address] [facility] CLIA [id number] [address] [place] [address] 46652 Bilirubin [Mass/Vol] 0.4 mg/dL Normal 0.2-1.3 [facility] Comment on above: Order Comment: Speci men Type: TIMED URINE SPECIMEN Ordering Facility: [facility] Address: [address] [place], [place] [address] Performed By: #### U METAN #### [facility] CLIA [id number] [address] [place], [place] [address] [facility] CLIA [id number] [address] [place] [address] 20988 Calcium [Mass/Vol] 8.9 mg/dL Normal 8.5-10.2 [facility] Comment on above: Order Comment: Speci men Type: TIMED URINE SPECIMEN Ordering Facility: [facility] Address: [address] [place], [place] [address] Performed By: #### U METAN #### [facility] CLIA [id number] [address] [place] [address] LAB CLIA [id number] [address] [place] [address] 33395 Chloride [Moles/Vol] 110 mmol/L High 97-105 [facility] Comment on above: Order Comment: Speci men Type: TIMED URINE SPECIMEN Ordering Facility: [facility] Address: [address] [place], [place] [address] Performed By: #### U METAN #### [facility] CLIA [id number] [address] [place], [place] [address] [facility] CLIA [id number] [address] [place] [address] 57169 CO2 [Moles/Vol] 30 mmol/L Normal 22-30 [facility] Comment on above: Order Comment: Speci men Type: TIMED URINE SPECIMEN Ordering Facility: [facility] Address: [address] [place] [address] Performed By: #### U METAN #### [facility] CLIA [id number] [address] [place] [address] [facility] CLIA [id number] [address] [place] [address] 65451 Creatinine [Mass/Vol] 0.80 mg/dL Normal 0.58-0.96 [facility] Comment on above: Order Comment: Speci men Type: TIMED URINE SPECIMEN Ordering Facility: [facility] Address: [address] [place] [address] Performed By: #### U METAN #### [facility] CLIA [id number] [address] [place] [address] LAB CLIA [id number] [address] [place] [address] Creatinine and Glomerular filtration rate.predicted panel (S/P/Bld) 101 mL/min/1.73m??? Normal >=60 [facility] Comment on above: Order Comment: Speci men Type: TIMED URINE SPECIMEN Ordering Facility: [facility] Address: [address] [place] [address] Result Comment: Rachel mated Glomerular Filtration Rate [...] accurately reflect actual GFR. Performed By: #### U METAN #### [facility] CLIA [id number] [address] [place] [address] LAB CLIA [id number] [address] [place], [place] [address] Glucose [Mass/Vol] 87 mg/dL Normal 74-99 [facility] Comment on above: Order Comment: Speci men Type: TIMED URINE SPECIMEN Ordering Facility: [facility] Address: [address] [place] [address] Result Comment: The [place] [employer] (ADA) provides guidance for cutoff [...] Standards of Medical Care in Diabetes 2016, [place] [employer]. Diabetes Care. 2016.39(Suppl 1). Performed By: #### U METAN #### [facility] CLIA [id number] [address] [place] [address] LAB CLIA [id number] [address] [place] [address] 41529 Potassium [Moles/Vol] 2.8 mmol/L Low 3.7-5.1 [facility] Comment on above: Order Comment: Speci men Type: TIMED URINE SPECIMEN Ordering Facility: [facility] Address: [address] [place] [address] Performed By: #### U METAN #### [facility] CLIA [id number] [address] [place] [address] LAB CLIA [id number] [address] [place] [address] 54342 Protein [Mass/Vol] 6.2 g/dL Low 6.3-8.0 [facility] Comment on above: Order Comment: Speci men Type: TIMED URINE SPECIMEN Ordering Facility: [facility] Address: [address] [place] [address] Performed By: #### U METAN #### [facility] CLIA [id number] [address] [place] [address] LAB CLIA [id number] [address] [place] [address] 24752 Sodium [Moles/Vol] 143 mmol/L Normal 136-144 [facility] Comment on above: Order Comment: Speci men Type: TIMED URINE SPECIMEN Ordering Facility: [facility] Address: [address] [place] [address] Performed By: #### U METAN #### [facility] CLIA [id number] [address] [place] [address] LAB CLIA [id number] [address] [place], [place] [address] Urea nitrogen [Mass/Vol] 23 mg/dL High 7-21 [facility] Comment on above: Order Comment: Speci men Type: TIMED URINE SPECIMEN Ordering Facility: [facility] Address: [address] [place] [address] Performed By: #### U METAN #### [facility] CLIA [id number] [address] [place] [address] LAB CLIA [id number] [address] [place], [place] [address] PT panel Coag (PPP)on 2023 INR Coag (PPP) [Relative time] 1.0 {INR} Normal 0.9-1.3 [facility] Comment on above: Order Comment: Speci men Type: BLOOD SPECIMENOrdering Facility: [facility] Address: [address] [place] [address] Result Comment: Trice min K Antagonist (VKA) Therapeutic Range: INR 2 to 3 (Target INR of 2.5) Note: For patients treated with VKA drugs, such as warfarin, the [employer] 2012 Guideline recommends [...] 2.5 to 3.5 (target INR of 3). Gracie CHANDLER, et al. Chest 2012, 141:7S-47S Benitez RA, et al. JAC 2017, 70: 252-289 Performed By: #### 3 4528-0 ####[facility] LABCLIA [id number] [place] [id number] [place] PT Coag (PPP) [Time] 10.2 s Normal 9.7-13.0 [facility] Comment on above: Order Comment: Speci men Type: BLOOD SPECIMENOrdering Facility: [facility] Address: [address] [place] [address] [place] [address] Performed By: #### 3 4528-0 ####[facility] LABCLIA [id number] [place] [id number] [facility] [place] NURSING PROGon 10-17-2023 NURSING PROG HNO ID: [id number] Author: MUSA HERNANDEZ RN Service: Nursing Author Type: Registered Nurse Type: Nursing Progress Note Filed: 10/17/2023 15:23 Note Text: Pre-procedure instructions: Contacted Heidi and klaudia appt. for AVS scheduled on Saturday, 10/22, at [facility]. I will wait while you get [...] be drawn prior to 10/22 at any [facility]. Arrival: Please bring your Photo ID and Insurance Card. A general consent may need to be signed. Arrival at 10:30 AM to desk QB[facility] ([facility]) and check in for your procedure. Chemist Internship/Transportation: How will you be arriving for your procedure? Private car. If you will be arriving at [facility] via ambulance or public transportation, please call to discuss. You will need a responsible adult to accompany you to and from the procedure. Your pick up driver is required to stay with you until you are taken into the Procedure room. If you develop any of the following symptoms before your procedure, please call [phone]. Chills, joint pain, rash, sore throat, cough, [...] discuss. Written instructions provided to patient via DataPromt If you have any questions please call [phone] Normal [facility] POTASSIUM BLDon 10-11-2023 Potassium [Moles/Vol] 2.6 mmol/L Low 3.7-5.1 [facility] Comment on above: Order Comment: Speci men Type: BLOOD SPECIMENOrdering Facility: [facility] Address: [address] [place] [address] Performed By: #### K 1 ####[facility] LABCLIA [id number] [place] [address] ALL POTASSIUMon 09-12-2023 Interpretation and review of laboratory results Abnormal [facility] Potassium [Moles/Vol] 2.7 mmol/L Critically low 3.5 - 5.1 mmol/L [facility] Comment on above: [facility] Aldost 24h Ur-mRateon 2023 Aldosterone (24H U) [Mass/Time] 63.6 ug/24hr High 3.0-<28.1 [facility] Comment on above: Order Comment: Speci men Type: TIMED URINE SPECIMEN [facility] Address: [address] [place] [address] Performed By: #### U METAN #### [facility] LAB CLIA [id number] [address] [place] [address] LAB CLIA [id number] [address] [place] [address] CATECHOLAMINES FRACTIONATED, URINE FREEon 09-10-2023 CATECHOLAMINES INTERPRETATION See Note Normal [facility] Comment on above: Order Comment: Speci men Type: TIMED URINE SPECIMEN [facility] Address: [address] [place] [address] Result Comment: TEST INFORMATION: Catecholamines Fractionated, Urine [...] reference intervals for this test in the [employer] Test Directory (66. com). This test was developed and its performance characteristics determined by [facility]. It has not been cleared or approved by the US Food and Drug Administration. This test was performed in a CLIA certified laboratory and is intended for clinical purposes. Performed By: #### U METAN #### [facility] LAB CLIA [id number] [address] [place] [address] LAB CLIA [id number] [address] [place] [address] CREATININE UR, PER 24H 1134 mg/d Normal 700-1600 Cl [facility] Comment on above: Order Comment: Speci men Type: TIMED URINE SPECIMEN [facility] Address: [address] [place] [address] Result Comment: Perf ormed By: [facility] [address] [place] [address] School Aide: Adis Casillas MD, PhD [facility] Number: [id number] Performed By: #### U METAN #### [facility] LAB CLIA [id number] [address] [place] [address] LAB CLIA [id number] [address] [place] [address] Order Comment: Speci men Type: TIMED URINE SPECIMENOrdering Facility: [facility] Address: [address] [place] [address] Performed By: #### U FRCRT ####[facility] LABORATORIESCLIA [id number] [place] [address] CREATININE UR, PER VOLUME 54 mg/dL Normal [facility] Comment on above: Order Comment: Speci men Type: TIMED URINE SPECIMEN [facility] Address: [address] [place] [address] Performed By: #### U METAN #### [facility] LAB CLIA [id number] [address] [place] [address] LAB CLIA [id number] [address] [place] [address] Order Comment: Speci men Type: TIMED URINE SPECIMENOrdering Facility: [facility] Address: [address] [place] [address] Performed By: #### U FRCRT ####[facility] [id number] [place] [address] DOPAMINE, UR 24HR 422 ug/d Normal 71-485 [facility] Comment on above: Order Comment: Speci men Type: TIMED URINE SPECIMEN [facility] Address: [address] [place] [address] Result Comment: REFE RENCE INTERVAL: Dopamine, Urine - ug/d Access complete set of age- and/or gender-specific reference intervals for this test in the [facility] Test Directory (Integrity Tracking.Vascular Designs). Performed By: #### U METAN #### [facility] LAB CLIA [id number] [address] [place] [address] LAB CLIA [id number] [address] [place] [address] DOPAMINE, UR PER VOL 201 ug/L Normal [facility] Comment on above: Order Comment: Speci men Type: TIMED URINE SPECIMEN [facility] Address: [address] [place] [address] Performed By: #### U METAN #### [facility] LAB CLIA [id number] [address] [place] [address] LAB CLIA [id number] [address] [place] [address] DOPAMINE, UR RATIO TO BICYCLE II ASSEMBLER 372 ug/g BICYCLE II ASSEMBLER High 0-250 [facility] Comment on above: Order Comment: Speci men Type: TIMED URINE SPECIMEN [facility] Address: [address] [place] [address] Performed By: #### U METAN #### [facility] LAB CLIA [id number] [address] [place] [address] LAB CLIA [id number] [address] [place] [address] EPINEPHRINE, UR 24HR 4 ug/d Normal 1-14 [facility] Comment on above: Order Comment: Speci men Type: TIMED URINE SPECIMEN [facility] Address: [address] [place] [address] Result Comment: REFE RENCE INTERVAL: Epinephrine, Urine - ug/d Access complete set of age- and/or gender-specific reference intervals for this test in the [facility] Test Directory (66. com). Performed By: #### U METAN #### [facility] LAB CLIA [id number] [address] [place] [address] LAB CLIA [id number] [address] [place] [address] EPINEPHRINE, UR PER VOL 2 ug/L Normal [facility] Comment on above: Order Comment: Speci men Type: TIMED URINE SPECIMEN [facility] Address: [address] [place] [address] Performed By: #### U METAN #### [facility] LAB CLIA [id number] [address] [place] [address] [facility] LAB CLIA [id number] [address] [place] [address] EPINEPHRINE, UR RATIO TO BICYCLE II ASSEMBLER 4 ug/g BICYCLE II ASSEMBLER Normal 0-20 [facility] Comment on above: Order Comment: Speci men Type: TIMED URINE SPECIMEN [facility] Address: [address] [place] [address] Performed By: #### U METAN #### [facility] LAB CLIA [id number] [address] [place] [address] LAB CLIA [id number] [address] [place], [place] [address] HOURS COLLECTED 24 hr Normal [facility] Comment on above: Order Comment: Speci men Type: TIMED URINE SPECIMEN [facility] Address: [address] [place] [address] Result Comment: Per 24h calculations are provided to aid interpretation for collections with a duration of 24 hours and an average daily urine volume. For specimens with notable deviations in collection time or volume, ratios of analytes to a corresponding urine creatinine concentration may assist in result interpretation. Performed By: #### U METAN #### [facility] LAB CLIA [id number] [address] [place] [address] LAB CLIA [id number] [address] [place] [address] Order Comment: Speci men Type: TIMED URINE SPECIMENOrdering Facility: [facility] Address: [address] [place] [address] Performed By: #### U FRCRT ####[facility] [id number] [place] [address] NOREPINEPHRINE, UR 24HR 21 ug/d Normal 14-120 C [facility] Comment on above: Order Comment: Speci men Type: TIMED URINE SPECIMEN [facility] Address: [address] [place] [address] Result Comment: REFE RENCE INTERVAL: Norepinephrine, Urine - ug/d Access complete set of age- and/or gender-specific reference intervals for this test in the [facility] Test Directory (Integrity Tracking.Vascular Designs). Performed By: #### U METAN #### [facility] LAB CLIA [id number] [address] [place], [place] [address] [facility] LAB CLIA [id number] [address] [place], [place] [address] NOREPINEPHRINE, UR PER VOL 10 ug/L Normal [facility] Comment on above: Order Comment: Speci men Type: TIMED URINE SPECIMEN [facility] Address: [address] [place] [address] Performed By: #### U METAN #### [facility] LAB CLIA [id number] [address] [place] [address] LAB CLIA [id number] [address] [place], [place] [address] NOREPINEPHRINE, UR RATIO TO BICYCLE II ASSEMBLER 19 ug/g BICYCLE II ASSEMBLER Normal 0-45 [facility] Comment on above: Order Comment: Speci men Type: TIMED URINE SPECIMEN [facility] Address: [address] [place] [address] Performed By: #### U METAN #### [facility] LAB CLIA [id number] [address] [place] [address] LAB CLIA [id number] [address] [place], [place] [address] TOTAL VOLUME 2100 mL Normal [facility] Comment on above: Order Comment: Speci men Type: TIMED URINE SPECIMEN [facility] Address: [address] [place] [address] Performed By: #### U METAN #### [facility] LAB CLIA [id number] [address] [place], [place] [address] [facility] LAB CLIA [id number] [address] [place], [place] [address] Order Comment: Speci men Type: TIMED URINE SPECIMENOrdering Facility: [facility] Address: [address] [place] [address] Performed By: #### U FRCRT ####[facility] [id number] [place] [address] CREATININE BLDon 09-10-2023 Creatinine [Mass/Vol] 0.90 mg/dL Normal 0.58-0.96 [facility] Comment on above: Order Comment: Speci men Type: BLOOD SPECIMENOrdering Facility: [facility] Address: [address] [place] [address] Performed By: #### C RET1 ####[facility] LABCLIA [id number] [place] [address] Creatinine and Glomerular filtration rate.predicted panel (S/P/Bld) 87 mL/min/1.73m??? Normal >=60 [facility] Comment on above: Order Comment: Speci men Type: BLOOD SPECIMENOrdering Facility: [facility] Address: [address] [place] [address] Result Comment: Rachel mated Glomerular Filtration Rate [...] actual GFR. Performed By: #### C RET1 ####[facility] LABCLIA [id number] [place] [address] CREATININE CLEARANCE, UR 24H Diaz 09-10-2023 Creatinine (24H U) [Mass/Time] 1.100 g/24 hr Normal 0.800-1.80 0 [facility] Comment on above: Order Comment: Speci men Type: TIMED URINE SPECIMEN [facility] Address: [address] [place] [address] Performed By: #### U METAN #### [facility] LAB CLIA [id number] [address] [place] [address] LAB CLIA [id number] [address] [place] [address] Creatinine renal clearance (24H U+S/P) [Vol/Time] 65.9 mL/min Low 75.0-115.0 [facility] Comment on above: Order Comment: Speci men Type: TIMED URINE SPECIMEN [facility] Address: [address] [place] [address] Result Comment: Resu lt corrected for standard body surface area. Performed By: #### U METAN #### [facility] LAB CLIA [id number] [address] [place] [address] LAB CLIA [id number] [address] [place] [address] METANEPHRINES 24H URon 09-10 Metanephrines (24H U) [Mass/Time] 246 ug/24 hr Normal 140-785 [facility] Comment on above: Order Comment: Speci men Type: TIMED URINE SPECIMEN [facility] Address: [address] [place] [address] Result Comment: Test performed at [facility] [place], [place] Disregard [facility] reference range. Smaller increases in metanephrine and/or [...] reference intervals for this test in the [facility] Test Directory (66. com). This test was developed and its performance characteristics determined by the [facility]. It has not been cleared or approved by the US Food and Drug Administration. This test was performed in a CLIA certified laboratory and is intended for clinical purposes. Performed By: #### U METAN #### [facility] LAB CLIA [id number] [address] [place], [place] [address] [facility] LAB CLIA [id number] [address] [place] [address] NORMETANEPHRINES, UR 141 ug/24 hr Normal 88-444 [facility] Comment on above: Order Comment: Speci men Type: TIMED URINE SPECIMEN [facility] Address: [address] [place] [address] Performed By: #### U METAN #### [facility] LAB CLIA [id number] [address] [place] [address] LAB CLIA [id number] [address] [place] [address] PERIOD (HRS) 24 hr Normal [facility] Comment on above: Order Comment: Speci men Type: TIMED URINE SPECIMEN [facility] Address: [address] [place] [address] Performed By: #### U METAN #### [facility] LAB CLIA [id number] [address] [place], [place] [address] [facility] LAB CLIA [id number] [address] [place] [address] Specimen volume (24H U) 2.1 L Normal [facility] Comment on above: Order Comment: Speci men Type: TIMED URINE SPECIMEN Ordering [facility] Address: [address] [place], [place] [address] Performed By: #### U METAN #### [facility] LAB CLIA [id number] [address] [place], [place] [address] [facility] LAB CLIA [id number] [address] [place] [address] URINE FREE CORTISOL BY LC-MS /MSon 09-10-2023 CORTISOL UG/G BICYCLE II ASSEMBLER, UR (UFRCRT) 16.94 ug/g BICYCLE II ASSEMBLER Normal [facility] Comment on above: Order Comment: Speci men Type: TIMED URINE SPECIMENOrdering Facility: [facility] Address: [address] [place] [address] Result Comment: Refe rence Interval: Cortisol ug/g insurance manager Female Prepubertal: Less than 25 ug/g insurance manager 18 years and older: Less than 24 ug/g insurance manager : Less than 59 ug/g insurance manager Male Prepubertal: Less than 25 ug/g insurance manager 18 years and older: Less than 32 ug/g insurance manager Performed By: #### U FRCRT ####[facility] [email or web address] [id number] [place] [address] FREE CORTISOL UG/DAY, URINE 19.2 ug/d Normal <=45.0 [facility] Comment on above: Order Comment: Speci men Type: TIMED URINE SPECIMENOrdering Facility: [facility] Address: [address] [place] [address] Performed By: #### U FRCRT ####[email or web address] [id number] [place] [address] FREE CORTISOL UG/L, URINE 9.15 ug/L Normal [facility] Comment on above: Order Comment: Speci men Type: TIMED URINE SPECIMENOrdering Facility: [facility] Address: [address] [place] [address] Performed By: #### U FRCRT ####[email or web address] [id number] [place] [address] UR MER FREE INTERP See Note Normal [facility] Comment on above: Order Comment: Speci men Type: TIMED URINE SPECIMENOrdering Facility: [facility] Address: [address] [place] [address] Result Comment: INTE RPRETIVE INFORMATION: Cortisol Urine Free by LC-MS/MS Access complete set of age- and/or gender-specific reference intervals for this test in the [facility] Test Directory (Integrity Tracking.[employer]s). This test was developed and its performance characteristics determined by [facility]. It has not been cleared or approved by the US Food and Drug Administration. This test was performed in a CLIA certified laboratory and is intended for clinical purposes. Performed By: [facility] [address] [place] [address] School Aide: Adis Casillas MD, PhD CLIA Number: [id number] Performed By: #### U [facility] ####[facility]ITAL[facility] [id number] [place] [address] [facility] CORTIS P DEX SERPL-MCNCo n 09-06-2023 [facility] CORTIS P DEX SERPL-MCNC 0.9 ug/dL NINF - 1.8 ug/dL [facility] Comment on above: After overnight 1 mg dexamethasone, an ore miner blasting cortisol of <1.8 ug/dL may indicate an adequate cortisol suppression. This result should be interpreted within the clinical context and other test results. Samra et al. Evidence for the Low Dose Dexamethasone Suppression Test to Screen for Mohit's Syndrome - Recommendations for a Protocol for Biochemistry Laboratories. 1997 Sybil. Clin. Biochem. 34 222-229. Specimen Type: BLOOD SPECIMEN [facility] Address: [address] [place] [address] Original Ordering Provider: VIKKI BALDERRAMA [facility] 09-06-2023 KYLE Telephone (SHANE) -- HEIDI JOY ([id number]) 1990 F Date Time Provider Department 09/06/23 MARIO SANTIAGO During your visit today, we recorded the following information about you: Valarie Wharton 09/06/2023 8:57 AM Signed 09/06/2023 INTAKE PENDING.NEED 24HR URINE-LFT MSG ON VMX AND SENT MYCHART MSG. ENDOCRINE SURGERY PATIENT WORKSHEET Initial Call Date: September 06, 2023 Reason for Consult/ Referral: Adrenal Mass PATIENT DEMOGRAPHICS Name: Heidi Joy CCF#: [id number] : 1990 AGE: [age] year old Contact Numbers: Home: (home) Work: There is no work phone number on file. PATIENT PHYSICIAN INFORMATION Referring Doctor: Address: Phone: Communications Systems Engineer: Address: Phone: PCP: Immanuel Kuhn [address] [place] [address] PAST TREATMENT Office notes: [facility] Medications: NONE THAT APPLY Pre-Visit Testing Component [...] - 340.0 ug/dL 188.1 Imaging Reports: [facility] CD of Images: [facility] FNA: no FNA Slides: N/A Has [...] Order(s):CATECHOLAMINES FRACTIONATED, URINE FREE [SQURCAT2] Order #: [id number]. #:[id number] ALDOSTERONE 24 HR, URINE [SQUALDO] Order #: [id number]. #:[id number] CREAT CLEAR 24 HOUR [SQUCCLR] Order #: [id number] URINE FREE CORTISOL BY LC-MS/MS [SQUFRCRT] Order #: [id number]. #:[id number] METANEPHRINES 24H UR [SQUMETAN] Order #: [id number]. #:[id number] CREATININE BLD [SQCRET] Reflex Order#: [id number] (Ord#:[id number]) CREATININE CLEARANCE, UR 24HR [ZZE1512] Reflex Order#: [id number] (Ord#:[id number]) Prescriptions as of 09/06/2023 - busPIRone (BUSPAR) [...] Status:Closed by VALARIE WHARTON on 09/06/23 Normal [facility] Cortis p Dex SerPl-mCncon Cortisol post dose dexamethasone [Mass/Vol] 0.9 ug/dL Normal <1.8 [facility] Comment on above: Order Comment: Peter myles Type: BLOOD SPECIMENOrdering Facility: [facility] Address: [address] [place] [address] Result Comment: Afte r overnight 1 mg dexamethasone, an ore miner blasting cortisol of <1.8 ug/dL may indicate an adequate cortisol suppression. This result should be interpreted within the clinical context and other test results. Samra et al. Evidence for the Low Dose Dexamethasone Suppression Test to Screen for Mohit's Syndrome - Recommendations for a Protocol for Biochemistry Laboratories. 1997 Sybil. Clin. Biochem. 34 222-229. Performed By: #### 4 7851-1 ####[facility] LABCLIA [id number] [address] OF [facility] DEXAMETHASONEon 09-06-2023 DEXAMETHASONE 236.1 ng/dL Normal [facility] Comment on above: Order Comment: Peter myles Type: BLOOD SPECIMEN [facility]ing Facility: [facility] Address: [address] [place] [address] Result Comment: INTE RPRETIVE INFORMATION: Dexamethasone, Serum [...] developed and its performance characteristics determined by [facility]. It has not been cleared or approved by the US Food and Drug Administration. This test was performed in a CLIA certified laboratory and is intended for clinical purposes. Performed By: [facility] [address] [place] [address] School Aide: Adis Casillas MD, PhD CLIA Number: [id number] Performed By: #### D EXA #### [facility] CLIA [id number] [address] [place] [address] CNPNon 09-05-2023 CNPN Telephone (GoLocal24N) -- HEIDI JOY ([id number]) 1990 F Date Time Provider Department 09/05/23 [...] for 09/12 at 11AM per . Sent [email or web address] message and mailed out appointment reminder Prescriptions [...] Encounter Status:Closed by NIRMAL CHOUDHURY on 09/05/23 [facility] 09-04-2023 CNPN Telephone (STED) -- HEIDI JOY ([id number]) 1990 F Date Time Provider Department 09/04/23 [...] hyperaldosteronism (HCC) [E26.09] Order(s):DEXAMETHASONE [SQDEXA] Order #: [id number] FUTURE CORTISOL SUPRES POST [SQONCORP] Order #: [id number] FUTURE CONSULT TO ENDOCRINE SURGERY [[id number]] Order #: [id number]: 1 FUTURE Prescriptions as of 09/04/2023 - [...] Status:Closed by VIKKI BALDERRAMA on 09/04/23 Normal [facility] US renal doppleron US renal doppler [facility] [place] [address] Ultrasound Report Signed Patient: Heidi Joy MR#: [id number] : 1990 Acct:[id number] Age/Sex: 33 / F ADM Date: 08/30/23 Loc: Room: Type: [facility] Attending Dr: Zara Ralph MD Ordering Provider: Zara Ralph MD Date of Service: 08/30/23 US/US renal doppler: E87.6, E87.3, I10. E27.9 Copies to: Zara Ralph MD Renal artery duplex examination performed using B-mode, color flow and spectral Doppler assessment. (CPT: 36696) INDICATION: Hypertension FINDINGS: Aorta: PSV 94.9 cm/s [...] Efrem Jo MD08/31/2023 3:55 PM Dictation Location: [place] [address] Tech: Hermelinda Alonso Transcribed By: KATHLEEN 08/31/23 1555 Dictated By: Efrem Jo MD 08/31/23 155 Signed By: 08/31/23 1555 [facility] ACTH Plas-mCncon 08-30-2023 Corticotropin (P) [Mass/Vol] 22.2 pg/mL Normal 7.2-63.3 [facility] Comment on above: Order Comment: Peter myles Type: BLOOD SPECIMENOrdering Facility: [facility] Address: [address] [place] [address] Result Comment: ACTH Reference Range: 7-10 am: 7.2 - 63.3 pg/mL Performed By: #### 2 141-0 ####[facility] LABCLIA [id number] [facility] [id number] [place] [address] [place] Aldost SerPl-mCncon 08-30-19 Aldosterone [Mass/Vol] 79.8 ng/dL High 0.0-<35.4 [facility] Comment on above: Order Comment: Peter myles Type: BLOOD SPECIMENOrdering Facility: [facility] Address: [address] [place] [address] Result Comment: The reference interval for serum/plasma [...] equal to 15 ng/dL. Performed By: #### 1 763-2 ####[facility] LABCLIA [id number] [address] OF [place]#### RENIND ####[facility] LABCLIA [id number] [place] [id number] [facility] LABCLIA [id number] [place] [address] Comprehensive metabolic 2000 panelon 08-30-2023 Albumin [Mass/Vol] 4.2 g/dL Normal 3.9-4.9 [facility] Comment on above: Order Comment: Speci men Type: TIMED URINE SPECIMEN Ordering Facility: [facility] Address: [address] [place] [address] Performed By: #### U METAN #### [facility] LAB CLIA [id number] [address] [place] [address] LAB CLIA [id number] [address] [place] [address] ALP [Catalytic activity/Vol] 127 U/L High 34-123 [facility] Comment on above: Order Comment: Speci men Type: TIMED URINE SPECIMEN Ordering Facility: [facility] Address: [address] [place] [address] Performed By: #### U METAN #### [facility] LAB CLIA [id number] [address] [place] [address] LAB CLIA [id number] [address] [place] [address] ALT [Catalytic activity/Vol] 16 U/L Normal 7-38 [facility] Comment on above: Order Comment: Speci men Type: TIMED URINE SPECIMEN Ordering Facility: [facility] Address: [address] [place] [address] Performed By: #### U METAN #### [facility] LAB CLIA [id number] [address] [place], [place] [address] [facility] LAB CLIA [id number] [address] [place] [address] Anion gap [Moles/Vol] 10 mmol/L Normal 9-18 [facility] Comment on above: Order Comment: Speci men Type: TIMED URINE SPECIMEN Ordering Facility: [facility] Address: [address] [place] [address] Performed By: #### U METAN #### [facility] LAB CLIA [id number] [address] [place], [place] [address] [facility] LAB CLIA [id number] [address] [place] [address] AST [Catalytic activity/Vol] 14 U/L Normal 13-35 [facility] Comment on above: Order Comment: Speci men Type: TIMED URINE SPECIMEN Ordering Facility: [facility] Address: [address] [place] [id number] Performed By: #### U METAN #### [facility] LAB CLIA [id number] [address] [place] [address] [facility] LAB CLIA [id number] [address] [place] [address] Bilirubin [Mass/Vol] 1.2 mg/dL Normal 0.2-1.3 [facility] Comment on above: Order Comment: Speci men Type: TIMED URINE SPECIMEN Ordering Facility: [facility] Address: [address] [place] [address] Performed By: #### U METAN #### [facility] LAB CLIA [id number] [address] [place] [address] [facility] LAB CLIA [id number] [address] [place] [address] Calcium [Mass/Vol] 9.4 mg/dL Normal 8.5-10.2 [facility] Comment on above: Order Comment: Speci men Type: TIMED URINE SPECIMEN Ordering Facility: [facility] Address: [address] [place] [address] Performed By: #### U METAN #### [facility] LAB CLIA [id number] [address] [place], [place] [address] [facility] LAB CLIA [id number] [address] [place] [address] Chloride [Moles/Vol] 109 mmol/L High 97-105 [facility] Comment on above: Order Comment: Speci men Type: TIMED URINE SPECIMEN Ordering Facility: [facility] Address: [address] [place] [address] Performed By: #### U METAN #### [facility] LAB CLIA [id number] [address] [place], [place] [address] [facility] LAB CLIA [id number] [address] [place] [address] CO2 [Moles/Vol] 27 mmol/L Normal 22-30 [facility] Comment on above: Order Comment: Speci men Type: TIMED URINE SPECIMEN Ordering Facility: [facility] Address: [address] [place] [address] Performed By: #### U METAN #### [facility] LAB CLIA [id number] [address] [place], [place] [address] [facility] LAB CLIA [id number] [address] [place] [address] Creatinine [Mass/Vol] 0.66 mg/dL Normal 0.58-0.96 [facility] Comment on above: Order Comment: Speci men Type: TIMED URINE SPECIMEN Ordering Facility: [facility] Address: [address] [place] [address] Performed By: #### U METAN #### [facility] LAB CLIA [id number] [address] [place] [address] LAB CLIA [id number] [address] [place], [place] [address] Creatinine and Glomerular filtration rate.predicted panel (S/P/Bld) 120 mL/min/1.73m??? Normal >=60 [facility] Comment on above: Order Comment: Speci men Type: TIMED URINE SPECIMEN Ordering Facility: [facility] Address: [address] [place] [address] Result Comment: Rachel mated Glomerular Filtration Rate [...] accurately reflect actual GFR. Performed By: #### U METAN #### [facility] LAB CLIA [id number] [address] [place] [address] LAB CLIA [id number] [address] [place], [place] [address] Glucose [Mass/Vol] 91 mg/dL Normal 74-99 [facility] Comment on above: Order Comment: Speci men Type: TIMED URINE SPECIMEN Ordering Facility: [facility] Address: [address] [place] [address] Result Comment: The [place] Diabetes Association (ADA) provides guidance for cutoff [...] Standards of Medical Care in Diabetes 2016, [place] [employer]. Diabetes Care. 2016.39(Suppl 1). Performed By: #### U METAN #### [facility] LAB CLIA [id number] [address] [place], [place] [address] [facility] LAB CLIA [id number] [address] [place] [address] Potassium [Moles/Vol] 2.8 mmol/L Low 3.7-5.1 [facility] Comment on above: Order Comment: Speci men Type: TIMED URINE SPECIMEN Ordering Facility: [facility] Address: [address] [place], [place] [address] Performed By: #### U METAN #### [facility] LAB CLIA [id number] [address] [place] [address] LAB CLIA [id number] [address] [place] [address] Protein [Mass/Vol] 6.7 g/dL Normal 6.3-8.0 [facility] Comment on above: Order Comment: Speci men Type: TIMED URINE SPECIMEN Ordering Facility: [facility] Address: [address] [place], [place] [address] Performed By: #### U METAN #### [facility] LAB CLIA [id number] [address] [place], [place] [address] [facility] LAB CLIA [id number] [address] [place] [address] Sodium [Moles/Vol] 146 mmol/L High 136-144 [facility] Comment on above: Order Comment: Speci men Type: TIMED URINE SPECIMEN Ordering Facility: [facility] Address: [address] [place] [address] Performed By: #### U METAN #### [facility] LAB CLIA [id number] [address] [place], [place] [address] [facility] LAB CLIA [id number] [address] [place] [address] Urea nitrogen [Mass/Vol] 12 mg/dL Normal 7-21 [facility] Comment on above: Order Comment: Speci men Type: TIMED URINE SPECIMEN Ordering Facility: [facility] Address: [address] [place] [address] Performed By: #### U METAN #### [facility] LAB CLIA [id number] [address] [place] [address] STATES OF [facility] LAB CLIA [id number] [address] [place] [address] Tamie SerPl-mCncon 08-30-19 Cortisol [Mass/Vol] 9.5 ug/dL Normal 4.8-19.5 [facility] Comment on above: Order Comment: Speci men Type: BLOOD SPECIMENOrdering Facility: [facility] Address: [address] [place] [address] Result Comment: Prov ided reference range is from 6-10 AM sample collection time. Cortisol Reference Range: 6-10 AM = 4.8-19.5 ug/dL, 4-8 PM = 2.5-11.9 ug/dL Performed By: #### Jael NAVARRO 2142-6 ####[facility] LABCLIA [id number] [place] [address] [place] DHEA-S BLDon 08-30-2023 DHEA-S [Mass/Vol] 188.1 ug/dL Normal 98.8-340.0 [facility] Comment on above: Order Comment: Speci men Type: BLOOD SPECIMENOrdering Facility: [facility] Address: [address] [place] [address] Result Comment: Refe rence ranges are age and gender specific. For additional information, reference range tables can be found in the laboratory test directory. The normal values are based on the following source: Dehydroepiandrosterone sulfate (DHEA S) [package insert V 17.0 Norwegian]. [facility], [place], [place]: March 2013. Performed By: #### Jael NAVARRO 3-6 ####[facility] LABCLIA [id number] [place] [address] [place] DIRECT RENIN PLASMAon 2023 DIRECT RENIN <2.1 Low 4.2-52.2 [facility] Comment on above: Order Comment: Speci men Type: BLOOD SPECIMENOrdering Facility: [facility] Address: [address] [place] [address] Result Comment: A ra yue of aldosterone [...] >=41 years: 2.5-45.1 pg/mL Performed By: #### 1 763-2 ####[facility] LABCLIA [id number] [place] [address] [place]#### RENIND ####[facility] LABCLIA [id number] [address] LABCLIA [id number] [place] [address] PATIENT UPRIGHT OR SUPINE Upright Normal [facility] Comment on above: Order Comment: Speci men Type: BLOOD SPECIMENOrdering Facility: [facility] Address: [address] [place] [address] Performed By: #### 1 763-2 ####[facility] LABCLIA [id number] [place] [address] [place]#### RENIND ####[facility] LABCLIA [id number] [address] LABCLIA [id number] [place] [address] METANEPHRINES, FREE PLASMAon 08-30-2023 METANEPHRINE, PLASMA 28 pg/mL Normal 12-67 [facility] Comment on above: Order Comment: Speccollins myles Type: BLOOD SPECIMENOrdering Facility: [facility] Address: [address] [place] [address] Result Comment: Refe rence Ranges: Hypertensive adult > or = 18 yrs old: 12-72 pg/mL Normotensive adult > or = 18 yrs old: 12-67 pg/mL Normotensive children < 18 yrs old: 10-95 pg/mL Performed By: #### P METAN ####[facility] LABIA [id number] [address] STATES OF [place] NORMETANEPHRINE, PLASMA 84 pg/mL Normal 18-101 [facility] Comment on above: Order Comment: Peter myles Type: BLOOD SPECIMENOrdering Facility: [facility] Address: [address] [place] [address] Result Comment: Refe rence Ranges: Hypertensive adult > or = 18 yrs old: 24-145 pg/mL Normotensive adult > or = 18 yrs old: 18-101 pg/mL Normotensive children < 18 yrs old: 22-83 pg/mL Methyldopa may cause false elevation of normetanephrine levels in this assay. If patient is on methyldopa, interpret results with caution. Performed By: #### P METAN ####[facility] NORTHIA [id number] [place] [address] [place] MR FOOT RIGHT [...] Painter DO Normal Not Available Covid-[address] [facility] [facility])on SARS-CoV-2 (COVID-19) RNA DARWIN+probe Ql (Unsp spec) Not detected Normal NOT DETECTED [facility] Comment on above: Result Comment: This test is not yet approved or cleared by the [place] FDA. When there are no FDA-approved or cleared tests available, and other criteria are met, FDA can make tests available under an emergency access mechanism called an Emergency Use Authorization (EUA). The EUA for this test is supported by the [place] of Health and Human Service's (HHS's) declaration [...] SARS-CoV-2. Performed By: #### C VDTB #### [facility] [address] [place] [address] Dr. Maylin Ch Follow-Upon 11-05-2022 Follow-Up [id number] Janine Joy 1990 F Date Provider Department Center 11/05/2022 RAVINDRA BUCKLEY ONC DCC Family History Problem Relation Age of Onset Diabetes Mother Thyroid cancer Mother Diabetes Father Hypertension Father Family Status - Relation Status Age at Mother Father Level of Service:22509 MO OFFICE/OUTPATIENT ESTABLISHED MOD MDM 30-39 MIN Normal [facility] DRUG SCREEN RAPID (URINE)on 10-23-2022 AMP Negative Normal NEGATIVE [facility] Comment on above: Performed By: #### D RUGRPD #### [facility] [address] [place] [address] Dr. Maylin Ch BAR Negative Normal NEGATIVE [facility] Comment on above: Performed By: #### D RUGRPD #### [facility] [address] [place] [address] Dr. Maylin Ch BUP Negative Normal NEGATIVE [facility] Comment on above: Performed By: #### D RUGRPD #### [facility] [address] [place] [address] Dr. Maylin Ch BZO Negative Normal NEGATIVE [facility] Comment on above: Performed By: #### D RUGRPD #### [facility] [address] [place] [address] Dr. Maylin Ch DRE Negative Normal NEGATIVE [facility] Comment on above: Performed By: #### D RUGRPD #### [facility] [address] [place] [address] Dr. Maylin Ch CUT-OFFS SEE BELOW Normal [facility] [...] #### D RUGRPD #### [facility] [address] [place] [address] Dr. Maylin Ch DRUG CUT HEADER DRUG CLASS TEST SYST EM CUT-OFF CONCENTRATIONS ARE FOLLOWS: Normal [facility] Comment on above: Performed By: #### D RUGRPD #### [facility] [address] [place] [address] Dr. Maylin Ch mAMP Negative Normal NEGATIVE [facility] Comment on above: Performed By: #### D RUGRPD #### [facility] [address] [place] [address] Dr. Maylin Ch MTD Negative Normal NEGATIVE [facility] Comment on above: Performed By: #### D RUGRPD #### [facility] [address] [place] [address] Dr. Maylin Ch OPI Negative Normal NEGATIVE [facility] Comment on above: Performed By: #### D RUGRPD #### [facility] [address] [place] [address] Dr. Maylin Ch OXY Negative Normal NEGATIVE [facility] Comment on above: Performed By: #### D RUGRPD #### [facility] [address] [place] [address] [address] Maylin Ch PCP Negative Normal NEGATIVE [facility] Comment on above: Performed By: #### D RUGRPD #### [facility] [address] [place] [address] [address] Maylin Ch PPX Negative Normal NEGATIVE [facility] Comment on above: Performed By: #### D RUGRPD #### [facility] [address] [place] [address] Dr. Maylin Ch TCA Negative Normal NEGATIVE [facility] Comment on above: Performed By: #### D RUGRPD #### [facility] [address] [place] [address] Dr. Maylin Ch THC Negative Normal NEGATIVE [facility] Comment on above: Performed By: #### D RUGRPD #### [facility] [address] [place] [address] Dr. Maylin Ch MR BRAIN W AND [...] of ventriculomegaly. Electronically signed: Frank Lara. Normal [facility] Potassiumon 09-13-2022 Potassium [Moles/Vol] 3.3 mmol/L Low 3.5-5.1 [facility] Comment on above: Order Comment: Reaso n for Exam Plantar fasciitis;Encounter for preoperative assessment Result Comment: PERF ORMED BY: [place] [address] PATHOLOGIST MILL OPERATOR MARY ANN LAL M.D. Performed By: #### K #### [address] Serum or plasma potassium me asurement (moles/volume)Ordered By: Manasa Rhodes on 09-13-2022 Potassium [Moles/Vol] 3.3 mmol/L 3.5-5.1 [facility] Office Visiton 09-10-2022 Follow-up visit [id number] Janine Joy 1990 F Date Provider Department Center 09/10/2022 RAVINDRA BUCKLEY [facility] ONC DCC Family History Problem Relation Age of Onset Diabetes Mother Thyroid cancer Mother Diabetes Father Hypertension Father Family Status - Relation Status Age at Mother Father Level of Service:85834 MO OFFICE/OUTPATIENT ESTABLISHED MOD MDM 30-39 MIN Reason for Visit and Comments: Consult [484] - Past patient, coming back today to have imaging reordered. Normal [facility] Orders Onlyon 09-10-2022 Orders Only [id number] Janine Joy 1990 F Date Provider Department Center 09/10/2022 MONICA DOMINGUEZ DCC ONC DCC Family History Problem Relation Age of Onset Diabetes Mother Thyroid cancer Mother Diabetes Father Hypertension Father Family Status - Relation Status Age at Mother Father Normal [facility] MAGNESIUMon 09-07-2022 Magnesium [Mass/Vol] 1.9 mg/dL Normal 1.8-2.4 [facility] Comment on above: Performed By: #### M Court, PHOS, BMP #### [facility] [address] [place] [address] Dr. Maylin Ch PHOSPHORUSon 09-07-2022 Phosphate [Mass/Vol] 3.7 mg/dL Normal 2.6-4.7 [facility] Comment on above: Performed By: #### M Court, PHOS, BMP #### [facility] [address] [place] [address] Dr. Maylin Ch PROF CHEM 8 (BAS METB)on Anion gap [Moles/Vol] 14.3 mmol/L Normal [facility] Comment on above: Performed By: #### Jose F Yun, PHOS, BMP #### [facility] [address] [place] [address] Dr. Maylin Ch Calcium [Mass/Vol] 9.3 mg/dL Normal 8.5-10.1 [facility] Comment on above: Performed By: #### Jose F Yun PHOS, BMP #### [facility] [address] [place] [address] Dr. Maylin Ch Chloride [Moles/Vol] 105 mmol/L Normal 98-107 [facility] Comment on above: Performed By: #### M Court, PHOS, BMP #### [facility] [address] [place] [address] Dr. Maylin Ch CO2 [Moles/Vol] 31.0 mmol/L Normal 21.0-32.0 [facility] Comment on above: Performed By: #### M G, PHOS, BMP #### [facility] [address] [place] [address] Dr. Maylin Ch Creatinine [Mass/Vol] 0.90 mg/dL Normal 0.55-1.02 [facility] Comment on above: Performed By: #### M G, PHOS, BMP #### [facility] [address] [place] [address] Dr. Maylin Ch EGFR-AF [place] >60 Normal >=60 [facility] Comment on above: Performed By: #### YAMILET Lopez, BMP #### [facility] [address] [place] [address] Dr. Maylin hC EGFR-NON AF [place] >60 Normal >=60 [facility] Comment on above: Performed By: #### GRIS LopezS, BMP #### [facility] [address] [place] [address] [address] Maylin Ch Glucose [Mass/Vol] 158 mg/dL Critically high 74-106 [facility] Comment on above: Performed By: #### YAMILET Lopez, BMP #### [facility] [address] [place] [address] Dr. Maylin Ch Potassium [Moles/Vol] 2.3 mmol/L Critically low 3.5-5.1 [facility] Comment on above: Performed By: #### YAMILET Lopez, BMP #### [facility] [address] [place] [address] [address] Maylin Ch Sodium [Moles/Vol] 147 mmol/L Critically high 136-145 [facility] Comment on above: Performed By: #### YAMILET Lopez, BMP #### [facility] [address] [place] [address] Dr. Maylin Ch Urea nitrogen [Mass/Vol] 7.0 mg/dL Normal 7.0-18.0 [facility] Comment on above: Performed By: #### YAMILET Lopez, BMP #### [facility] [address] [place] [address] Dr. Maylin Ch Urea nitrogen/Creatinine [Mass ratio] 7.8 mg/mg Normal [facility] Comment on above: Performed By: #### YAMILET Lopez, BMP #### [facility] [address] [place] [address] Dr. Maylin Ch Potassiumon 09-07-2022 Potassium [Moles/Vol] 2.4 mmol/L Off scale low 3.5-5.1 [facility] Comment on above: Result Comment: Resu lts called at 0807 on 09/07/22 PERFORMED BY: [place] [address] PATHOLOGIST MILL OPERATOR MARY ANN LAL M.D. Performed By: #### K #### [address] Serum or plasma potassium me asurement (moles/volume)Ordered By: NON STAFF on 09-07-2022 Potassium [Moles/Vol] 2.4 mmol/L 3.5-5.1 [facility] Comment on above: Results calledat 080 [...] for a consultation for. POC Dr. Benson, [facility] Bariatrics- Bariatric sx History of Present Illness [...] Vital Signs Recorded: 06Jun2022 04:17PMRecorded: 06Jun2022 03:45PM [id number], LUE, Sitting [id number], LUE, Sitting Heart Rate71, Apical Height5 ft 7 in Tthcfj982 lb BMI Qyryqyjglg35.77 kg/m2 BSA Calculated2.42 Tobacco Useb) No PHQ-2 [...] to auscul (more content not included)... Normal [employer] Tobacco Screening.on 022 Adult depression screening assessment No -[facility] [employer] 250 DO Work Phone: Tobacco use status CPHS b) No M -[facility] [employer] 250 DO Work Phone: DHEA SERUMon 01-12-2022 [...] 701 Performed By: #### D STAR. #### [facility] [address] [place] [address] [address] Maylin Ch TESTOSTERONE, FREE,DIRECT, T OTALon 01-06-2022 Free Testosterone(Direct) 1.6 pg/mL Normal 0.0-4.2 [facility] Comment on above: Result Comment: Perf ormed at: BN Performed By: #### T ESTFRD #### [facility] [address] [place] [address] Dr. Maylin Ch Testosterone [Mass/Vol] 17 ng/dL Normal 13-[address] [facility] [facility] Comment on above: Result Comment: Perf ormed at: CB Performed By: #### T ESTFRD #### [facility] [address] [place] [address] Dr. Maylin Ch INSULINon 01-05-2022 Insulin 13.2 uIU/mL Normal 2.6-24.9 [facility] Comment on above: Performed By: #### I NSULIN #### [facility] [address] [place] [address] Dr. Maylin Ch GLYCOHEMOGLOBIN A1Con 2021 ADA RECOMMENDATION SEE BELOW Normal [facility] Comment on above: Result Comment: ADA RECOMMENDED LIMIT 4.0 - 6.0 ADA THERAPEUTIC TARGET < 7.0 ACTION SUGGESTED > 7.0 Performed By: #### A 1C #### [facility] [address] [place] [address] Dr. Maylin Ch Glucose [Mass/Vol] 146 mg/dL Normal [facility] Comment on above: Performed By: #### A 1C #### [facility] [address] [place] [address] Dr. Maylin Ch HbA1c (Bld) [Mass fraction] 6.7 % Critically high 4.5-6.2 [facility] Comment on above: Performed By: #### A 1C #### [facility] [address] [place] [address] Dr. Maylin Ch TSHon 01-04-2022 TSH 3.214 uIU/mL Normal 0.358-3.74 0 [facility] Comment on above: Performed By: #### T SH #### [facility] [address] [place] [address] Dr. Maylin Ch TSH RANGE SEE BELOW Normal [facility] Comment on above: Result Comment: <0.3 4 UIU/ml HYPERTHYROID 0.34-5.60 UIU/ml EUTHYROID >5.60 UIU/ml HYPOTHYROID Performed By: #### T SH #### [facility] [address] [address] [address] Maylin Ch Potassiumon 10-05-2021 Potassium [Moles/Vol] 3.3 mmol/L Low 3.5-5.5 [facility] Specialist Comment on above: Performed By: #### K #### [facility] [address] [place] [place], [place] [id number] [place] 09-11-2021 Consent [id number]:127 Normal [facility] Registrationon 09-11-2021 Registration [id number]#[id number]:127 Normal [facility] Basic Metabolic Panelon 08-06 Anion gap [Moles/Vol] 21 mmol/L High 12-20 [facility] Manager Bar Comment on above: Result Comment: Effe ctive 08/10/2019 reference range changed. Performed By: #### B MP #### [facility] [address] [place], [place] [id number] Calcium [Mass/Vol] 9.3 mg/dL Normal 8.6-10.2 [facility] Specialist Comment on above: Performed By: #### B MP #### [facility] [address] [facility] [place] [place] [id number] Chloride [Moles/Vol] 106 mmol/L Normal 98-107 [facility] Specialist Comment on above: Performed By: #### B MP #### [facility] [address] [facility] [place] [id number] CO2 [Moles/Vol] 20 mmol/L Normal 20-31 [facility] Specialist Comment on above: Performed By: #### B MP #### [facility] [address] [facility] [place] [id number] Creatinine [Mass/Vol] 0.7 mg/dL Normal 0.6-1.4 [facility] Manager [facility] Comment on above: Performed By: #### B MP #### [facility] [address] [facility] [place] [id number] eGFRAA 115 mL/min/1.73m2 Normal >60 [facility] Specialist Comment on above: Performed By: #### B MP #### [facility] [address] [place], [place] [id number] eGFRNAA 95 mL/min/1.73m2 Normal >60 [facility] Specialist Comment on above: Performed By: #### B MP #### [facility] [address] [place], [place] [id number] Glucose [Mass/Vol] 184 mg/dL High 65-99 [facility] Manager [place] Comment on above: Result Comment: For FASTING Glucose --- ADA reference ranges: Normal 65-99 mg/dl Prediabetes 100-125 Diabetes >/= 126 Performed By: #### B MP #### [facility] [address] [place], [place] [id number] Potassium [Moles/Vol] 2.8 mmol/L Critically low 3.5-5.5 [facility] Specialist Comment on above: Result Comment: Crit ical result called to Dr Rhodes/Rylee at 09/01/2021 11:58 AM by Cyndie Montanez) Performed By: #### B MP #### [facility] [address] [place], [place] [id number] Sodium [Moles/Vol] 144 mmol/L Normal 135-146 [facility] Manager Bar Comment on above: Performed By: #### B MP #### [facility] [address] [place], [place] [id number] Urea nitrogen [Mass/Vol] 10 mg/dL Normal 7-25 [facility] Manager Bar Comment on above: Performed By: #### B MP #### [facility] [address] [place], [place] [id number] [place] 08-17-2021 Consent [id number]:127 Normal [facility] Registrationon 08-17-2021 Registration [id number]#[id number]:127 Normal [facility] Registrationon 04-04-2021 Registration [id number]#[id number]:127 Normal [facility] [place] 04-03-2021 Consent [id number]#[id number]:127 Normal [facility] MRI BRAIN W WO CONTRASTon MRI BRAIN W WO CONTRAST [facility] Department of Radiology [address] [place] [phone] Patient Name: HEIDI JOY : 1990 Sex: F Age: Race: White Pt. Location: 29 Patient Status: O Ordered Date: 02/04/2020 2:05:00 PM Completed Date: 03/17/2020 10:13 AM Requesting Provider: GANGA RODRIGUES Attending Provider: GANGA RODRIGUES Report Copy To: IMMANUEL KUHN Signs & Symptoms: C71.9 Malignant neoplasm of brain, unspecified I10 History: Nita AMES AUTH [id number] VALID 03/04-04/03/2020 [id number] KW Comments: , 1p-19q co-deleted oligodendroglioma of [...] reports Electronically signed: Shawn Martins. Transcribed by: [email or web address], User Resident: JONATHAN ARCE Electronically Signed by: SHAWN MARTINS @ 03/17/2020 12:45 PM I personally read this/these film(s) with this resident Normal [facility] Comment on above: Order Comment: [...] MRI BRAIN W WO CONTRAST [facility] Department of Radiology [address] [place] [phone] Patient Name: HEIDI JOY : 1990 Sex: F Age: Race: White Pt. Location: 29 Patient Status: O Ordered Date: 03/20/2019 11:25:00 AM Completed Date: 09/11/2019 10:54 AM Requesting Provider: ALISA CH Attending Provider: ALISA CH Report Copy To: IMMANUEL KUHN Signs & Symptoms: C71.9 Malignant neoplasm of brain, unspecified I10 History: Nita ames auth # [id number] 08/28/2019-09/27/2019 cpt code 63582 *mla Comments: , 1p-19q co-deleted oligodendroglioma of [...] reports Electronically signed: Jim Curiel. Transcribed by: [email or web address], User Resident: DANDY HUFFMAN Electronically Signed by: JIM CURIEL @ 09/11/2019 04:35 PM I personally read this/these film(s) with this resident Normal [facility] Comment on above: Order Comment: [...] Summaryon 01-29-2018 Coding Summary CODING DATE: 018 [facility] STATUS: Home PAYOR: Medicaid HMO [...] Swanson' Date Saved: 01/29/2018 03:42 pm Normal [facility] ED Clinical Summaryon 2017 ED Clinical Summary [facility] ? Urgent [address] [place] [address] clinical SummaryPERSON INFORMATIONName: HEIDI JOY Age: 27 Years Sex: FEMALEDOB: [birth year] MRN: Acct#:Visit Reason: UC - Rash; UC - Rash; RASH/ BILAT LEGS Arrival: 01/23/18 10:43:00 Discharge: 01/23/18 11:18:00LOS: 000 00:35 Check In: 01/23/18 10:43:00 Checkout: 01/23/18 11:18:00Address:[address] [address]GKO: BamImmanuel JPROVIDER INFORMATIONProvider Role Assigned UnassignedSpCarmelo Perez ED PA 01/23/18 10:48:23SmCristal ibarra ED Nurse 01/23/18 10:53:41VITALS INFORMATIONVital Sign Triage LatestTemperature TympanicTemperature Temporal ArteryPulse Rate 79 bpm 79 bpmO2 Sat 97 % 97 %Respiratory Rate 16 br/min 16 br/minBlood Pressure 162 mmHg/98 mmHg 162 mmHg/98 mmHgMEDICAL INFORMATIONMedications Given:Allergy Information:No Known Medication AllergiesPHYSICIAN DOCUMENTATIONDISCHARGE INFORMATION:Discharge Disposition: HomeDischarge Location:PATIENT EDUCATION INFORMATIONInstructions: Poison Gays Dermatitis, Pivl-xx-RkvjFbkpky-Up:With : Address: When:Immanuel Kuhn [address] [place] [address]., [address] [place] [id number] [facility] (1)Comments:Begin on the prednisone 2 tablets daily for 5 days take with food to avoid gastric refluxBegin on the Claritin 1 tab daily for the next 2 weeks Follow-up with primary care provider in 3-5 days sooner if worse.DIAGNOSIS:urushiol induced contact dermatitisPatient Understands: Yes - Patient/family/caregiver verbalizes understanding of instructions givenComment: [facility] Note - Physicianon 2017 ED Note - Physician Patient: HONORIO JOY : 27 years Sex: FEMALE : [birth year]Associated Diagnoses: urushiol induced contact dermatitisAuthor: [place] InformationTime seen: Date & time 01/23/18 11:01:00.History source: Patient.Arrival mode: Private vehicle.History limitation: None.Additional information: Chief Complaint from Nursing Triage Note : Chief Lymoavbhe08/21/18 10:45 EDT Chief Complaint 2-3 days possible [...] been selected or recorded..Social history:Social & Psychosocial EzsoyoLedfxgi42/21/2018 Number used per day: 10.Problem list:Active Problems (1)Smoker.Physical Examination Vital NvhwfUejwublifxma23/21/18 10:45 EDT Height 170.18 cm Weight 122.47 [...] was given the following educational materials: Poison Gays Dermatitis, Peih-fg-Sroz.Follow up with: Immanuel Kuhn Begin on the [...] Lake[Verified on: 01/23/2018 11:28 EDT] Carmelo Lake [facility] ED Patient Summaryon 018 ED Patient Summary [facility] ? Urgent [address] [place] [address] pATIENT DISCHARGE INSTRUCTIONSPatient InformationName: HEIDI JOY Age: 27 YearsDate of : [birth year]MRN: [id number] For Visit: UC - Rash; UC - Rash; RASH/ BILAT LEGSArrival Time: 01/23/18 10:43:00Phone: [facility] Physician: Immanuel Kuhn Physician: Tonja LakerComment:Patient EducationWith: Address: When:Immanuel Kuhn [facility] [address] [place] [address] Business (1)Comments:Begin on the prednisone 2 tablets daily for 5 days take with food to avoid gastric refluxBegin on the Claritin 1 tab daily for the next 2 weeks Follow-up with primary care provider in 3-5 days sooner if worse.Poison Gays DermatitisPoison oak dermatitis is redness and soreness [...] instructions at home:General instructions? Take or apply ijqw-wkf-srdymlj and prescription medicines only as told by [...] Reviewed: 12/28/2015Nirmala Interactive Patient Education ? 2018 [employer].Medication Information:The exam and treatment you received today in the [facility] Emergency Department were for an urgent problem and are not intended as complete care. It is important for you to follow up with a doctor, nurse practitioner, or physician?s assistant associate full professor for ongoing care. If your symptoms become [...] number so we can reach you if necessary.[facility] Emergency Department has provided you with a complete list of medications post discharge. Please inform your tray service worker/provider of your visit and for further instruction [...] InformationVisit Diagnosis:Diagnoses This Visit UC - Rash ([id number]) UC - Rash ([id number]) urushiol induced contact dermatitisIf you received any [...] Weight: 122.47 kg Body Mass Index: 42.29 kg/f8Puvkvgkg List:Problem Onset CommentsSmokerMajor Tests and Procedures:The following [...] Disease Control and Prevention April 2014 Normal [facility]gent Care [address] 018 Urgent Care Record [facility] ? Urgent [address] [place] [address] pATIENT DISCHARGE INSTRUCTIONSPatient InformationName: HEIDI JOY Age: 27 YearsDate of : [birth year]MRN: [id number] For Visit: UC - Rash; UC - Rash; RASH/ BILAT LEGSArrival Time: 01/23/18 10:43:00[facility]: [facility]: Immanuel Kuhn Physician: Wai LakeandarComment:Visit Diagnosis:Diagnoses This Visit UC - Rash ([id number]) UC - Rash ([id number]) urushiol induced contact dermatitisIf you received any [...] sign any legal documentsWith: Address: When:Immanuel Kuhn [address] [place] [address]., [address] [place] [address] Business (1)Comments:Begin on the prednisone 2 tablets daily for 5 days take with food to avoid gastric refluxBegin on the Claritin 1 tab daily for the next 2 weeks Follow-up with primary care provider in 3-5 days sooner if worse.Medication Information:The exam and treatment you received today in the [facility] Urgent Care were for an urgent problem and are not intended as complete care. It is important for you to follow up with a doctor, nurse practitioner, or physician?s assistant associate full professor for ongoing care. If your symptoms become [...] number so we can reach you if necessary.[facility] Care has provided you with a complete list of medications post discharge. Please inform your tray service worker/provider of your visit and for further instruction [...] Weight: 122.47 kg Body Mass Index: 42.29 kg/i5Afaerulc List:Problem Onset CommentsSmoker Patient EducationPoison Gays DermatitisPoison oak dermatitis is redness and soreness [...] instructions at home:General instructions? Take or apply uszx-zfm-pczkuvz and prescription medicines only as told by [...] you wear them.Prevention ? Know what poison daniella looks like so you can avoid it. [...] Released: 08/24/2011 Document Revised: 12/27/2016 Document Reviewed: 12/28/2015Kingsleyevier Interactive Patient Education ? 2018 [employer] Viruses or BacteriaWhat?s got you sick?Antibiotics [...] Antibiotics [place] Department of Health and Human ServicesUniversity Hospitals Beachwood Medical Centerers for Disease Control and Prevention April 2014 [facility] Vital Signs Date Time Vital Sign Value Performing Clinician Facility 09-13-2023 10:53-0500 Body mass index (BMI) [Ratio] 31.78 kg/m2 Barbara Dixon ANESTHESIOLOGY TECH Work Phone: [facility] 09-13-2023 10:53-0500 Body temperature 97.5 [degF] Barbara Dixon ANESTHESIOLOGY TECH Work Phone: [facility] 09-13-2023 10:53-0500 Body weight 89.3 kg Barbara Dixon ANESTHESIOLOGY TECH Work Phone: [facility] 09-13-2023 10:53-0500 Diastolic blood pressure 100 mm[Hg] Barbara Dixon ANESTHESIOLOGY TECH Work Phone: [facility] 09-13-2023 10:53-0500 Heart rate 79 /min Barbara Dixon ANESTHESIOLOGY TECH Work Phone: [facility] 09-13-2023 10:53-0500 SaO2% (BldA) [Mass fraction] 98 % Barbara Dixon ANESTHESIOLOGY TECH Work Phone: [facility] 09-13-2023 10:53-0500 Systolic blood pressure 160 mm[Hg] Barbara Dixon ANESTHESIOLOGY TECH Work Phone: [facility] 09-09-2023 16:00-0500 Body height 170.18 cm Zara Ramo Other [email or web address] Other 09-09-2023 16:00-0500 Body mass index (BMI) [Ratio] 30.82 kg/m2 Zara Ramo Other [email or web address] Other 09-09-2023 16:00-0500 Body temperature 96.4 [degF] Zara Ramo Other [email or web address] Other 09-09-2023 16:00-0500 Body weight 89.27 kg Zara Ramo Other [email or web address] Other 09-09-2023 16:00-0500 Diastolic blood pressure 92 mm[Hg] Zara Ramo Other [email or web address] Other 09-09-2023 16:00-0500 Respiratory rate 18 /min Zara Ramo Other [email or web address] Other 09-09-2023 16:00-0500 SaO2% (BldA) [Mass fraction] 99 % Zara Ramo Other [email or web address] Other 09-09-2023 16:00-0500 Systolic blood pressure 151 mm[Hg] Zara Ramo Other [email or web address] Other 08-19-2023 16:00-0500 Body height 170.18 cm Zara Ramo Other [email or web address] Other 08-19-2023 16:00-0500 Body mass index (BMI) [Ratio] 31.76 kg/m2 Zara Ramo Other [email or web address] Other 08-19-2023 16:00-0500 Body temperature 97.5 [degF] Zara Ramo Other [email or web address] Other 08-19-2023 16:00-0500 Body weight 91.99 kg Zara Ramo Other [email or web address] Other 08-19-2023 16:00-0500 Diastolic blood pressure 100 mm[Hg] Zara Ramo Other [email or web address] Other 08-19-2023 16:00-0500 Respiratory rate 18 /min Zara Ramo Other [email or web address] Other 08-19-2023 16:00-0500 SaO2% (BldA) [Mass fraction] 100 % Zara Ramo Other [email or web address] Other 08-19-2023 16:00-0500 Systolic blood pressure 170 mm[Hg] Zara Ramo Other [email or web address] Other 06-06-2022 16:17-0400 Diastolic blood pressure 89 mm[Hg] Immanuel Kuhn [facility] Phone: [facility] [employer] [address] DO Work Phone: 06-06-2022 16:17-0400 Systolic blood pressure 138 mm[Hg] Immanuel Kuhn Work Phone: [facility] 250 DO Work Phone: 06-06-2022 15:45-0400 Body height 170.18 cm Immanuel Kuhn Work Phone: [facility] 250 DO Work Phone: 06-06-2022 15:45-0400 Body mass index (BMI) [Ratio] 47.77 kg/m2 Immanuel Kuhn Work Phone: [facility] 250 DO Work Phone: 06-06-2022 15:45-0400 Body surface area Derived from formula 2.42 m2 Immanuel Kuhn Work Phone: [facility] 250 DO Work Phone: 06-06-2022 15:45-0400 Body weight 138.35 kg Immanuel Kunh Work Phone: [facility] 250 DO Work Phone: 06-06-2022 15:45-0400 Diastolic blood pressure 102 mm[Hg] Immanuel Kuhn Work Phone: [facility] 250 DO Work Phone: 06-06-2022 15:45-0400 Heart rate 71 /min Immanuel Kuhn Work Phone: [facility] 250 DO Work Phone: 06-06-2022 15:45-0400 Systolic blood pressure 160 mm[Hg] Immanuel Kuhn Work Phone: [facility] 250 DO Work Phone: Encounters Encounter Date Encounter Type Care Provider Facility Start: 11-15-2023 End: 11-15-2023 ambulatory ARIANNA LORA Facility:[facility] Start: 11-14-2023 Telephone encounter Arianna avendano MD Work Phone: Endocrinology Comment on above: Returning Patient's Call; Results Start: 11-14-2023 End: 11-14-2023 ambulatory IMMANUEL Tatyana KUHN Facility:[facility] Start: 11-14-2023 End: 11-14-2023 ambulatory SHEILA L BRAUN Not Available Start: 11-07-2023 End: 11-07-2023 ambulatory SHEILA L BRAUN Not Available Start: 11-05-2023 ambulatory Mario Santiago MD Work Phone: Endocrine Surgery Comment on above: [facility] 12/10/23 (Roboti c lap left adrenalectomy ) Start: 10-30-2023 End: 10-30-2023 ambulatory SHEILA L BRAUN Not Available Start: 10-30-2023 End: 10-30-2023 ambulatory ELIOT WOLF Not Available Start: 10-25-2023 Telephone encounter Mario encinas MD Work Phone: Endocrine Surgery Comment on above: [employer] Start: 10-24-2023 End: 10-24-2023 ambulatory SHEILA L BRAUN Not Available Start: 10-23-2023 End: 10-23-2023 ambulatory IMMANUEL KUHN Facility:[facility] Start: 10-22-2023 End: 10-22-2023 ambulatory ARMANDO CUNNINGHAM Facility:[facility] Start: 10-17-2023 End: 10-18-2023 ambulatory SHEILA L BRAUN Not Available Start: 10-11-2023 End: 10-12-2023 ambulatory ARMANDO CUNNINGHAM Facility:[facility] Start: 10-10-2023 End: 10-10-2023 ambulatory SHEILA L BRAUN Not Available Start: 09-25-2023 End: 09-25-2023 ambulatory SHEILA L BRAUN Not Available Start: 09-25-2023 End: 09-25-2023 ambulatory MANASA DUNAWAY Not Available Start: 09-13-2023 Telephone encounter Barbara Dixon NP Work Phone: [facility] Start: 09-13-2023 End: 09-13-2023 ambulatory BARBARA DIXON Not Available Start: 09-13-2023 End: 09-13-2023 Office outpatient visit 25 minutes Barbara Dixon NP Work Phone: [facility] Comment on above: Acute bronchitis, un specified [...] with patient Mario Santiago MD Work Phone: [facility] Start: 09-11-2023 Bamboo flowsheet Sheila Rain tt [facility] Work Phone: [facility] Start: 09-11-2023 Bamboo flowsheet Sheila Rivero Koffi tt [facility] Work Phone: [facility] Start: 09-11-2023 End: 09-11-2023 Social Work Sheila Josefa Braun [facility] Work Phone: [facility] Comment on above: Generalized anxiety disorder (CMS/HCC); Bipolar affective disorder, currently depressed, mild (CMS/HCC) Start: 09-10-2023 Chart abstracting Manasa Dunaway [facility] Work Phone: [facility] Start: 09-10-2023 End: 09-10-2023 ambulatory MANASA DUNAWAY Not Available Start: 09-09-2023 End: 09-09-2023 ambulatory Zara Ramo Other [id number] Other Start: 09-09-2023 Office outpatient vi sit [...] SHEET) Start: 09-06-2023 End: 09-06-2023 ambulatory IMMANUEL KUNH Facility:[facility] Start: 09-05-2023 Telephone encounter Mario encinas MD Work Phone: General Surgery Comment on above: Appointment (Called patient and left a message that patient was added to 's schedule for a virtual appointment for 09/12 at 11AM per . Sent [employer] message and mailed out appointment reminder) Start: 08-30-2023 End: 08-30-2023 ambulatory VIKKI BALDERRAMA Facility:[facility] Start: 08-30-2023 End: 08-30-2023 ambulatory Immanuel Kuhn Facility:[facility] Start: 08-30-2023 End: 08-30-2023 ambulatory DO Immanuel Kuhn Work Phone: [facility] Work Phone: Start: 08-30-2023 End: 08-30-2023 Patient encounter procedure DO Immanuel Kuhn Work Phone: [facility] [place] Work Phone: Start: 08-23-2023 End: 08-23-2023 ambulatory Zara Ramo Other [id number] Other Start: 08-23-2023 Telephone encounter Zara Ramo [facility] Start: 08-22-2023 End: 08-22-2023 ambulatory SHEILA BRAUN Not Available Start: 08-21-2023 End: 08-22-2023 ambulatory MANASA DUNAWAY Not Available Start: 08-20-2023 End: 08-20-2023 ambulatory VIKKI BALDERRAMA Facility:[facility] Start: 08-20-2023 End: 08-20-2023 ambulatory Vikki Balderrama MD Work Phone: Endocrinology Comment on above: 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) Start: 08-20-2023 End: 08-20-2023 Telemedicine consultation with patient Vikki Balderrama MD Work Phone: [facility] Start: 08-19-2023 End: 08-19-2023 ambulatory Zara Ramo Other [id number] Other Start: 08-19-2023 Office outpatient ne w 45 minutes Zara Ramo [facility] Start: 08-19-2023 End: 08-19-2023 Patient encounter procedure DO Immanuel Kuhn Work Phone: [facility] Work Phone: Start: 08-15-2023 [...] Encounter [facility]cedural [facility] Start: 12-07-2022 End: 12-08-[address] IMMANUEL KUHN Facility:[facility] Start: 12-07-2022 End: 12-08-2022 Encounter for preprocedural laboratory examination DR IMMANUEL KUHN Facility:[facility] Start: 11-05-2022 ambulatory RAVINDRA LEMA [facility] Start: 10-23-2022 End: 10-24-2022 ambulatory ZAKIA BENSON Facility:[facility] Start: 10-22-2022 End: 10-23-2022 ambulatory RAVINDRA LEMA [facility] Start: 09-13-2022 End: 09-13-2022 ambulatory Manasa Dunaway Facility:[facility] Start: 09-13-2022 Encounter for other preprocedural examination Manasa Dunaway [facility] Start: 09-13-2022 End: 09-13-2022 ambulatory DO Immanuel Kuhn Work Phone: [facility] Work Phone: Start: 09-13-2022 End: 09-13-2022 Patient encounter procedure DO Immanuel Kuhn Work Phone: [facility] [place] Work Phone: Start: 09-10-2022 End: 09-10-2022 ambulatory RAVINDRA LEMA [facility] Start: 09-07-2022 End: 09-08-[address] TE DARNELL . Facility:[facility] Start: 09-07-2022 End: 09-07-[address] ET DARNELL . Facility:[facility] Start: 09-07-2022 End: 09-07-2022 ambulatory Tiarra Prakash Facility:[facility] Start: 09-07-2022 End: 09-07-2022 ambulatory DO Immanuel Kuhn Work Phone: [facility] Work Phone: Start: 09-07-2022 End: 09-07-2022 Patient encounter procedure DO Immanuel Kuhn Work Phone: [facility] [place] Work Phone: Start: 08-07-2022 Rx Renewal Immanuel Kuhn Work Phone: [facility] 250 DO Work Phone: Start: 07-31-2022 End: 02-21-2023 Preprocedural examination done Generic [facility] [facility] Start: 06-06-2022 Office outpatient vi sit 25 minutes Immanuel Kuhn Work Phone: [facility] 250 DO Work Phone: Start: 06-06-[address] Della Kim Facility:[id number] Start: 01-04-2022 End: 01-05-[address] ESTHER ANGELES Facility:H1 Start: 01-23-2018 End: 01-25-2018 Ambulatory [facility] Facility:[facility] Patient encounter status Immanuel Kuhn Work Phone: [facility] 250 DO Work Phone: Procedures Date Procedure Procedure Detail Performing Clinician Start: 11-14-2023 Antibody screen ARIANNA A LKWATLI Comment on above: Order Comment: Speci men Type: BLOOD SPECIMENOrdering Facility: [facility] Address: [address] [place] [address] [place] [address] Performed By: #### T [id number] ####CC MAIN BLOOD BANKCLIA [id number] [id number] [address] [place] Start: 09-12-2023 ALL POTASSIUM Generic E xternal Data Provider Start: 09-06-2023 [facility] CORTIS P DEX SERPL-[facility] Generic External Data Provider Plan of Treatment Date Care Activity Detail Author Start: 12-18-2026 Screening for malignant neoplasm of cervix [facility] Start: 04-05-2024 Influenza vaccination Influenza Vaccine (Season Ended) [facility] Start: 11-14-2023 End: 02-13-2024 Basic metabolic 2000 panel - Serum or Plasma BASIC METABOLIC PANEL Lab Routine Primary hyperaldosteronism (HCC) Expected: 11/14/2023, Expires: 02/13/2024 [facility] Work Phone: Comment on above: Expected: 11/14/2023, Expires: Start: 11-12-2023 End: 02-11-2024 CONFIRM BLOOD TYPE CONFIRM BLOOD TYPE Blood Bank Routine Adenoma of left adrenal gland Expected: 11/12/2023, Expires: 02/11/2024 [facility] Work Phone: Comment on above: Expected: 11/12/2023, Expires: Start: 11-12-2023 End: 02-11-2024 TYPE AND SCREEN,30 DAY TYPE AND SCREEN,30 DAY Blood Bank Routine Adenoma of left adrenal gland Expected: 11/12/2023, Expires: 02/11/2024 [facility] Work Phone: Comment on above: Expected: 11/12/2023, Expires: 4 Start: 10-02-2023 End: 10-02-2023 Social Work 10/02/2023 12:00 PM EST Social Work [facility] [address] [place] [address] Sheila Braun, [facility] [address] [place] [address] [facility] Start: 09-25-2023 End: 09-25-2023 Social Work 09/25/2023 12:00 PM EST Social Work [facility] [address] [place] [address] Sheila Braun, [facility] [address] [place] [address] [facility] Start: 09-18-2023 End: 09-18-2023 Social Work 09/18/2023 12:00 PM EST Social Work [facility] [address] [place] [address] Sheila Braun, [facility] [address] [place] [address] [facility] Start: 09-11-2023 End: 09-11-2023 Social Work 09/11/2023 12:00 PM EST Social Work [facility] [address] [place] [address] Sheila Braun, [facility] [address] [place] [address] [facility] Start: 09-10-2023 End: 09-10-2023 Patient encounter procedure 09/10/2023 8:45 AM EST Office Visit [facility] [address] [place] [address] Manasa Dunaway DPM [address] [place] [address] [facility] Start: 08-30-2023 Doppler ultrasonography of kidney US renal doppler [facility] Start: 08-30-2023 US Unspecified body region [facility] Start: 08-20-2023 End: 11-19-2023 Aldosterone [Mass/volume] in Serum or Plasma ALDOSTERONE BLD Lab Routine Adenoma of left adrenal gland Expected: 08/20/2023, Expires: 11/19/2023 [facility] Work Phone: Comment on above: Expected: 08/20/2023, Expires: Start: 08-20-2023 End: 11-19-2023 Comprehensive metabolic 2000 panel - Serum or Plasma COMP METABOLIC PANEL Lab Routine Adenoma of left adrenal gland Expected: 08/20/2023, Expires: 11/19/2023 [facility] Work Phone: Comment on above: Expected: 08/20/2023, Expires: Start: 08-20-2023 End: 11-19-2023 Corticotropin [Mass/volume] in Plasma ACTH BLD Lab Routine Adenoma of left adrenal gland Expected: 08/20/2023, Expires: 11/19/2023 [facility] Work Phone: Comment on above: Expected: 08/20/2023, Expires: Start: 08-20-2023 End: 11-19-2023 Cortisol [Mass/volume] in Serum or Plasma CORTISOL BLD Lab Routine Adenoma of left adrenal gland Expected: 08/20/2023, Expires: 11/19/2023 [facility] Work Phone: Comment on above: Expected: 08/20/2023, Expires: Start: 08-20-2023 End: 11-19-2023 DHEA-S BLD DHEA-S BLD Lab Routine Adenoma of left adrenal gland Expected: 08/20/2023, Expires: 11/19/2023 [facility] Work Phone: Comment on above: Expected: 08/20/2023, Expires: Start: 08-20-2023 End: 11-19-2023 DIRECT RENIN PLASMA DIRECT RENIN PLASMA Lab Routine Adenoma of left adrenal gland Expected: 08/20/2023, Expires: 11/19/2023 [facility] Work Phone: Comment on above: Expected: 08/20/2023, Expires: Start: 08-20-2023 End: 11-19-2023 METANEPHRINES, FREE PLASMA METANEPHRINES, FREE PLASMA Lab Routine Adenoma of left adrenal gland Expected: 08/20/2023, Expires: 11/19/2023 [facility] Work Phone: Comment on above: Expected: 08/20/2023, Expires: 4 Start: 08-05-2023 Behavioral Health Screening Behavioral Health Screening [facility] Start: 08-05-2023 Depression Assessment Depression Assessment [facility] Start: 07-04-2023 Urine screening for protein Diabetes: Urine Protein Screening [facility] Start: 04-05-2023 Covid-19 Vaccine () Covid-19 Vaccine () [facility] Start: 04-05-2023 Influenza vaccination Influenza Vaccine (#1) [facility] Start: 03-14-2023 FUV, Provider: Della Kim, Status: Pen, Time: 1:30 PM FUV, Provider: Della Kim, Status: Pen, Time: 1:30 PM [facility] 250 DO Work Phone: Start: 04-06-2022 Hemoglobin A1c measurement Diabetes: Hemoglobin A1C [facility] Start: 2021 Screening for malignant neoplasm of cervix HPV Testing [facility] Start: 2012 Screening for malignant neoplasm of cervix [facility] Start: 2010 Hepatitis B Vaccine (1 of 3 - 19+ 3-dose series) Hepatitis B Vaccine (1 of 3 - 19+ 3-dose series) [facility] Start: 2010 Urine microalbumin profile DTaP,Tdap,Td Vaccine (1 - Tdap) [facility] Start: 2009 Hepatitis C screening Hepatitis C Screening [facility] Start: 2009 HIV screening HIV Screening [facility] Start: 2001 Glaucoma screening Diabetes: Retinopathy Screening [facility] Start: 02-02-1992 Covid-19 Vaccine (#1) Covid-19 Vaccine (#1) [facility] Start: 1991 Hepatitis B Vaccine (1 of 3 - 3-dose series) Hepatitis B Vaccine (1 of 3 - 3-dose series) [facility] Aldosterone [Mass/ti me] in 24 hour Urine ALDOSTERONE 24 HR, URINE Lab Routine Adenoma of left adrenal gland Ordered: 09/06/2023 [facility] Work Phone: Comment on above: Ordered: 09/06/2023 CATECHOLAMINES FRACTIONATED, URINE FREE CATECHOLAMINES FRACTIONATED, URINE FREE Lab Routine Adenoma of left adrenal gland Ordered: 09/06/2023 [facility] Work Phone: Comment on above: Ordered: 09/06/2023 CONFIRM BLOOD TYPE CONFIRM BLOOD TYPE Blood Bank Routine Adenoma of left adrenal gland 11/14/2023 10:37 AM EDT [facility] Work Phone: CREAT CLEAR 24 HOUR CREAT CLEAR 24 HOUR Lab Routine Adenoma of left adrenal gland Ordered: 09/06/2023 [facility] Work Phone: Comment on above: Ordered: 09/06/2023 CREATININE BLD CREATININE BLD L ab Routine Adenoma of left adrenal gland Ordered: 09/06/2023 [facility] Work Phone: Comment on above: Ordered: 09/06/2023 CREATININE CLEARANCE , UR 24HR CREATININE CLEARANCE, UR 24HR Lab Routine Adenoma of left adrenal gland Ordered: 09/06/2023 [facility] Work Phone: Comment on above: Ordered: 09/06/2023 Guidance for venous sampling of Vein IR VENOUS SAMPLING Radiology Routine Adenoma of left adrenal gland Ordered: 09/12/2023 [facility] Work Phone: Comment on above: Ordered: 09/12/2023 METANEPHRINES 24H UR METANEPHRIN ES 24H UR Lab Routine Adenoma of left adrenal gland Ordered: 09/06/2023 [facility] Work Phone: Comment on above: Ordered: 09/06/2023 REFER FOR ADMIT INTERVIEW REFER FOR ADMIT INTERVIEW Procedures Routine Adenoma of left adrenal gland Ordered: 11/12/2023 [facility] Work Phone: Comment on above: Ordered: 11/12/2023 TYPE AND SCREEN,30 DAY TYPE AND SCREEN,30 DAY Blood Bank Routine Adenoma of left adrenal gland 11/14/2023 10:36 AM EDT [facility] Work Phone: URINE FREE CORTISOL BY LC-MS/MS URINE FREE CORTISOL BY LC-MS/MS Lab Routine Adenoma of left adrenal gland Ordered: 09/06/2023 [facility] Work Phone: Comment on above: Ordered: 09/06/2023 [facility] Payers Date Payer Category Payer Self-pay [id number] 2016 Medicaid [id number] 1991 Unknown [id number] 2.16.840.1.132320.3.579.2.593 1991 Unknown [id number] 2.16.840.1.312421.3.579.2.593 1991 Unknown [id number] 2.16.840.1.813110.3.579.2.593 1991 Unknown [id number] 2.16.840.1.774874.3.579.2.593 1991 Unknown [id number] 2.16.840.1.838703.3.579.2.593 1991 Unknown [id number] 2.16.840.1.939707.3.579.2.356 1991 Unknown [id number] 2.16.840.1.555825.3.579.2.356 1991 Unknown [id number] 2.16.840.1.847561.3.579.2.1259 1991 Unknown [id number] 2.16.840.1.175918.3.579.2.1259 1991 Unknown [id number] 2.16.840.1.136934.3.579.2.1259 1991 Unknown [id number] 2.16.840.1.702494.3.579.2.1259 1991 Unknown [id number] 2.16.840.1.917044.3.579.2.1259 1991 Unknown [id number] 2.16.840.1.080780.3.579.2.1259 1991 Unknown [id number] 2.16.840.1.310844.3.579.2.9 1991 Unknown [id number] 2.16.840.1.009738.3.579.2.9 1991 Unknown [id number] 2.16.840.1.832434.3.579.2.9 1991 Unknown [id number] 2.16.840.1.870196.3.579.2.1259 1991 Unknown [id number] 2.16.840.1.732921.3.579.2.9 1991 Unknown [id number] 2.16.840.1.261362.3.579.2.1259 1991 Unknown [id number] 2.16.840.1.802738.3.579.2.1259 1991 Unknown [id number] 2.16.840.1.858097.3.579.2.1259 1991 Unknown [id number] 2.16.840.1.533915.3.579.2.1259 1991 Unknown [id number] 2.16.840.1.578966.3.579.2.1259 1991 Unknown [id number] 2.16.840.1.793611.3.579.2.9 1991 Unknown [id number] 2.16.840.1.101829.3.579.2.1259 1991 Unknown [id number] 2.16.840.1.151854.3.579.2.9 1991 Unknown [id number] 2.16.840.1.361336.3.579.2.1259 1991 Unknown [id number] 2.16.840.1.749499.3.579.2.9 1991 Unknown [id number] 2.16.840.1.912417.3.579.2.1259 1991 Unknown [id number] 2.16.840.1.806706.3.579.2.9 1991 Unknown [id number] 2.16.840.1.785929.3.579.2.1259 1959 Medicaid [id number] Unknown [facility] PLAN Unknown [facility] [id number] Unknown [id number] 2.16.840.1.993594.3.579.2.531 Unknown [id number] 2.16.840.1.461271.3.579.2.531 Unknown [id number] 2.16.840.1.578445.3.579.2.531 Social History Date Type Detail Facility Start: 01-05-2020 End: 08-20-2023 No illicit drug use No illicit drug use [place] [address] DO Work Phone: Comment on above: quit 2021; Start: 11-09-2019 End: 08-05-2022 Tobacco smoking status IDIS Smoker (finding) [facility] Start: 1990 Sex Assigned At Female F [facility] Start: 01-05-2020 End: 08-20-2023 Sex Assigned At [facility] [employer] Other Start: 01-05-2020 Tobacco smoking status IDIS Never smoked tobacco [facility] Start: 01-05-2020 End: 02-21-2023 Tobacco use and exposure Smokeless tobacco non-user [facility] Start: 01-05-2020 Alcohol intake Current drinke r of alcohol (finding) [facility] National Score (1-100), lower number is lower risk 59 [facility] Start: 1990 Sex Assigned At Not on file C [facility] Start: 08-27-2023 Gender identity Identifies as female gender (finding) [facility] Start: 02-21-2023 Tobacco smoking status NHIS Ex-smoker [facility] End: 08-05-2022 History of tobacco use Cigarette Smoker [facility] Start: 08-15-2023 End: 09-10-2023 Alcohol intake Ex-drinker (finding) [facility] Start: 12-23-2022 Alcohol Comment 1-2 cans of soda silvestre ly [facility] Start: 09-10-2023 Alcohol Comment caffeine intak e: 1-2 cans of soda [facility] Clinical Notes 09-10-2022 to 11-14-2023 Telephone Encounter - Arianna Lora MD - 11/14/2023 7:11 PM EDTTelephone Encounter - Mario Santiago MD - 10/25/2023 4:52 PM EDTTelephone Encounter - Mohamud Morales MA - 09/13/2023 11:30 AM EST Note Date & Type Note Facility 11-14-2023 Miscellaneous Notes Images from the original note were not included. Was paged with critical lab 2.3. I called patient, no answer. I left a voice message with lab results and the need to take extra potassium tablets today and repeat potassium tomorrow, she was provided with call back number as well to call with questions. Arianna Lora MD Clinical Fellow PGY-5 Endocrinology and Metabolism [place] Pager:[phone] documented in this encounter [facility] 10-25-2023 Miscellaneous Notes AVS lateralized to the left adrenal gland with a ratio of 35:1. I recommended laparoscopic left adrenalectomy lateral transabdominal or posterior approach. Will decide on the day of the surgery. Will schedule her surgery. Mario Santiago MD documented in this encounter [facility] 09-13-2023 Telephone encounter Note Contacted pt, went [...] [facility] 09-12-2023 Note HNO ID: [id number] Author: MARIO SANTIAGO MD Service: ? Author Type: Physician Type: Progress Notes Filed: 09/12/2023 10:17 Note Text: This was a virtual visit. I have communicated my name and active licensure. The patient's identity and physical location were verified at the time of this visit. Either the patient or their legal customer service representative teacher has been informed of the risks and benefits of -- and alternatives to -- treatment through a remote evaluation and consents to proceed with the evaluation remotely. Endocrinology Metabolism [place] [facility] Mario Santiago M.D. Section of Endocrine Surgery and Advanced Laparoscopic Surgery [address] [place] [address], [facility] [place] [address] ENDOCRINE SURGERY NEW CONSULTATION NAME: Heidi Joy CLINIC NO: [id number] : 1990 Surgeon: Dr. Mario Santiago REFERRING PROVIDER: Vikki Balderrama [address] [place] [address] The patient was referred by the above [...] which included prep (more content not included)... [facility] 09-12-2023 History of Present illness Narrative This was a virtual visit. I have communicated my name and active licensure. The patient's identity and physical location were verified at the time of this visit. Either the patient or their legal customer service representative teacher has been informed of the risks and benefits of -- and alternatives to -- treatment through a remote evaluation and consents to proceed with the evaluation remotely. Endocrinology Metabolism [place] [facility] Mario Santiago M.D. Section of Endocrine Surgery and Advanced Laparoscopic Surgery [address] [place] [address] ENDOCRINE SURGERY NEW CONSULTATION NAME: Heidi Joy CLINIC NO: [id number] : 1990 Surgeon: Dr. Mario Santiago REFERRING PROVIDER: Vikki Balderrama [address] [place] [address] The patient was referred by the above [...] which included preparing to see the patient, sumi-pb-rxst patient care, completing clinical documentation, obtaining and/or reviewing separately obtained history, counseling and educating the patient/family/caregiver, ordering medications, tests, or procedures, communicating with other HCPs (not separately reported), independently interpreting results (not separately reported), communicating results to the patient/family/caregiver, and care coordination (not separately reported). Sincerely, Mario Santiago MD 09/12/2023 CC: Vikki Balderrama [id number] [place] [id number] documented in this encounter [facility] 09-09-2023 Evaluation note Encounter Date Diagnosis Assessment Notes Sep, Hypokalemia (ICD-10 - E87.6) She has hypertension with hypokalemia and high 24-hour urinary aldosterone level consistent with primary hyperaldosteronism. Her 24-hour urinary potassium may be low due to the critically low serum potassium. She is also reported to have elevated serum aldosterone. She was seen by the endocrine at [facility] and now referred to the surgery for [...] - E27.9) Continue follow-up with endocrine at [facility]. Sep, Other Patient was advised due to the primary hyperaldosteronism she can follow-up endocrine. She can refer to our office in future if needed. [email or web address] Other 02-02-2024 Miscellaneous Notes* Addendum Note - [...] Mass PATIENT DEMOGRAPHICS Name: Heidi Joy CCF#: [id number] : 1990 AGE: [age] year old Contact Numbers: Home: (home) Work: There is no work phone number on file. PATIENT PHYSICIAN INFORMATION Referring Doctor: Address: Phone: Communications Systems Engineer: Address: Phone: PCP: Immanuel Kuhn [address] [facility] [address] [place] [address] PAST TREATMENT Office notes: SEE EPIC Medications: [...] - 340.0 ug/dL 188.1 Imaging Reports: SEE EPIC CD of Images: SEE EPIC FNA: no FNA Slides: N/A Has the patient ever had thyroid or parathyroid surgery before: No Operative Reports: NONE AVAILABLE Pathology Reports: NONE AVAILABLE [facility] NoteHNO ID: [id number] Author: VIKKI BALDERRAMA MD Service: ? Author Type: Physician Type: Progress Notes Filed: 08/25/2023 22:12 Note Text: Endocrinology and Metabolism [place] Initial Clinic Visit Note Virtual Visit (Audio/Visual) [...] visit. Either the patient or their legal customer service representative teacher has been informed of the risks and [...] and nephrology. She recently met with a bi tri operator and was recommended to undergo some [...] imaging is around 5- (more content not included)...[facility]01-16-2024 Instructions* Patient Instructions* Vikki Balderrama MD [...] one hormone. These hormones include: Cortisol - Ridge syndrome or subclinical hypercortisolism are conditions caused [...] to let me know [facility] History of Present illness Narrative* Vikki Balderrama MD - 08/20/2023 1:43 PM EST Endocrinology and Metabolism [place] Initial Clinic Visit Note Virtual Visit (Audio/Visual) I have discussed the nature of this visit with the patient which will occur via [facility] (Phone, Virtual Visit) and he agrees to proceed with this interaction . I have communicated my name and active licensure. The patient's identity and physical location wereverified at the time of this visit. Either the patient or their legal customer service representative teacher has been informed of the risks and [...] and nephrology. She recently met with a bi tri operator and was recommended to undergo some [...] agreed to get the labs done at [facility], I provided her with the lab phone number to make an appointment. Vikki Balderrama MD [facility] Endocrinology and Metabolism [place] - [facility] [phone] Medical Decision Making: Problems: Moderate: 1+ chronic illnesses with change Data: Unique source(s) for external note(s) reviewed: 1 Unique test result(s) reviewed: 3+ Unique test(s) ordered: 3+ Medical Decision Making Level: 4 - Moderate [facility] Evaluation note* Encounter Date Diagnosis Assessment Notes Treatment Notes Treatment Clinical Notes Aug, Hypokalemia (ICD-10 - E87.6) It was a pleasure to see Mrs. Joy in our office for evaluation and management of hypokalemia. As you know she has a longstanding hypokalemia and metabolic alkalosis and hypertension. Differential diagnoses are broad and include primary hyperaldosteronism, Ridge syndrome, Gettleman syndrome and Bartter syndrome. I [...] of the adrenal nodule with serial imaging. [email or web address] Other 04-03-2023 NoteIn person visit Chief complaint: follow up for prior right frontal glioma [place]: 32 y/o woman - she had prior [...] repeat MRI brain w/wout contrast. 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 She had migraines and high blood pressure [...] after the MRI is completed. Ravindra Lema MDUnKeenan Private HospitalChief complaint Narrative - ReportedHEIDI JOY is being seen for a consultation for. POC Dr. Benson, [facility] Bariatrics- Bariatric sxMP[facility] 250 DO Work Phone: Evaluation noteNo assessment information available [facility] Work Phone: Evaluation noteNo InformationNort [employer] Other Evaluation note* Diagnosis Adenoma of left adrenal gland- Primary Benign neoplasm of adrenal gland [facility] Diagnosis Adenoma of left adrenal gland- Primary Benign neoplasm of adrenal gland [facility] Diagnosis Primary hyperaldosteronism (HCC)- Primary Hyperaldosteronism, unspecified Adenoma of left adrenal gland Benign neoplasm of adrenal gland [facility] Diagnosis Generalized anxiety disorder (CMS/HCC) Generalized anxiety disorder Bipolar affective disorder, currently depressed, mild (CMS/HCC) Bipolar I disorder, most recent episode (or current) depressed, mild documented in this encounter [facility]* Diagnosis Acute bronchitis, unspecified organism- Primary documented in this encounter [facility]* Diagnosis Adenoma of left adrenal gland- Primary Benign neoplasm of adrenal gland Adenoma of left adrenal gland Benign neoplasm of adrenal gland [facility] Diagnosis Primary hyperaldosteronism (HCC)- Primary Hyperaldosteronism, unspecified Adenoma of left adrenal gland Benign neoplasm of adrenal gland documented in this encounter [facility] general Narrative - Reported* Type [...] 2 DIALBETES MYRA LITUS WITHOUT COMPLICATION, WITHOUT USP CURRENT USE OF INSULIN Medical History MICROSYTIC [...] GASTRIC BYPASS 12/2022 Hospitalization History SEE ABOVE [email or web address] Other [employer] general Narrative - Reported* Type Description Date [...] 2 DIALBETES MYRA LITUS WITHOUT COMPLICATION, WITHOUT 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 CURRENT USE OF INSULIN Medical History MICROSYTIC ANEMIA Medical History BIPOLAR AFFECTIVE DISORDER, CURR ENTLY DEPRESSED, MILD Medical History CANNABIS ABUSE Medical History MALIGNANT NEOPLASM OF BRAIN Medical History Potassium infusions weekly at [facility] Surgical History brain tumor removed malignant 0 -2018 Surgical History DILATION AND CURETTAGE ESOPHAGO GASTRODUODENOSCOPY Surgical History INGROWN TOENAIL Surgical History ANKLE SCOPE PLANTAR FASCIOTOMY 2017 Surgical History RIGHT FRONTAL LOBEECTOMY 2018 Surgical History ENDOSCOPIC PLANTAR FASCIOTOMY 2 023 Surgical History GASTRIC BYPASS 12/2022 Hospitalization History SEE ABOVE Hospitalization History Sue for low potassi um 08/2023 [facility] [employer] Other History of Present illness Narrative* Patient [...] medication 9 4. Follow-up in 9 months [facility] 250 DO Work Phone: Summary Purpose Family [...] Complaint Renal Hypokalemia e87.6 e87.3 i10 e27.9 Reason for Referral Specialty Diagnoses / Procedures Referred By Contac t Referred To Contact Diagnoses Adenoma of left adrenal gland Procedures REFER TO PACC - PRE ANESTHESIA CONSULTATION CLINIC OFFICE/OUTPATIENT [facility] 60 MINUTES Natasha Chase MD [address] [place] [address] Referral ID Status Reason Start Date Expiration Date Visits Requested Visits Authorized [id number] Authorized PCP Requested Referral 11/12/2023 11/04/2024 1 1 Additional Source Comments INFORMATION SOURCE (unrecogn ized section and content) DATE CREATED AUTHOR 01/29/2018 [facility] DATE CREATED AUTHOR AUTHOR'S ORGANIZ ATION 03/21/2020 [facility] DATE CREATED AUTHOR AUTHOR'S ORGANIZ ATION 09/12/2021 [facility] DATE CREATED AUTHOR AUTHOR'S ORGANIZ ATION 10/06/2021 [facility] Specialist DATE CREATED AUTHOR AUTHOR'S ORGANIZ ATION 06/07/2022 [facility] DATE CREATED AUTHOR AUTHOR'S ORGANIZ ATION 11/19/2022 [facility] DATE CREATED AUTHOR AUTHOR'S ORGANIZ ATION 12/14/2022 [facility] DATE CREATED AUTHOR AUTHOR'S ORGANIZ ATION 03/19/2023 [facility] DATE CREATED AUTHOR AUTHOR'S ORGANIZ ATION 09/05/2023 [facility] DATE CREATED AUTHOR AUTHOR'S ORGANIZ ATION 11/15/2023 [facility] dical Specialists [facility] DATE CREATED AUTHOR AUTHOR'S ORGANIZ ATION 11/15/2023 [facility] Care Teams (unrecognized sec tion and content) Team Status: Inactive Member Role Status Dates Immanuel Kuhn DO Primary Care Provider Active NETTIE Kramer Attending Provider Active Team Status: Active Member Role Status Dates Immanuel Kuhn DO Primary Care Provider Active Team Status: Inactive Member Role Status Dates Immanuel Kuhn DO Primary Care Provider Active Manasa Rhodes DPM Attending Provider Active Assembly 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 Brazer Relationship Specialty Start Date End Date Immanuel Kuhn DO [address] [place] [address] PCP - General Family Medicine 10/23/12 Esther Angeles MD [address] [place] [phone] Referring Obstetrics 01/28/20 Татьяна Carter PA-C [address] [place] [address] Referring Physician Steam Plant Operator 08/08/23 Team Status: Inactive Member Role Status Dates Zara Ralph MD Attending Provider Active Start : August 19, 2023 End: August 19, 2023 Team Status: Inactive Member Role Status Dates Immanuel Kuhn DO Primary Care Provider Active St art: August 30, 2023 End: August 30, 2023 Zara Ralph MD Attending Provider Active Start : August 30, 2023 End: August 30, 2023 Assembly Line Brazer Relationship Specialty Start Date End Date Immanuel Kuhn DO [address] [place] [address] PCP - General Family Medicine 10/23/12 Esther Angeles MD [address] [place] [phone] Referring Obstetrics 01/28/20 Татьяна Carter PA-C [address] [place] [address] Referring Physician Steam Plant Operator 08/08/23 Assembly Line Brazer Relationship Specialty Start Date End Date Immanuel Kuhn DO [address] [place] [address] PCP - General Family Medicine 10/23/12 Esther Angeles MD [address] [place] [phone] Referring Obstetrics 01/28/20 Татьяна Carter PA-C [address] [place] [address] Referring Physician Steam Plant Operator 08/08/23 Assembly Line Brazer Relationship Specialty Start Date End Date Immanuel Kuhn DO [address] [place] [address] PCP - General Family Medicine 12/25/22 Татьяна Carter PA [address] [place] [address] PCP - [facility] 02/02/23 Assembly Line Brazer Relationship Specialty Start Date End Date Immanuel Kuhn DO [address] [place] [address] PCP - General Family Medicine 10/23/12 Esther Angeles MD [address] [place] [phone] Referring Obstetrics 01/28/20 Татьяна Carter, GRISELC [address] [place] [address] Referring Physician Steam Plant Operator 08/08/23 Assembly Line Brazer Relationship Specialty Start Date End Date Immanuel Kuhn DO [address] [place] [address] PCP - General Family Medicine 12/25/22 Татьяна Carter PA [address] [place] [address] PCP - [facility] 02/02/23 Assembly Line Brazer Relationship Specialty Start Date End Date Immanuel Kuhn DO [address] [place] [address] PCP - General Family [facility] 12/25/22 Татьяна Carter PA [address] [place] [address] PCP - [facility] 02/02/23 Assembly Line Brazer Relationship Specialty Start Date End Date Immanuel Kuhn DO [address] [place] [address] PCP - [facility] 12/25/22 Татьяна Carter PA [address] [place] [address] PCP - [facility] 02/02/23 Assembly Line Brazer Relationship Specialty Start Date End Date Immanuel Kuhn DO [address] [place] [address] PCP - General Family [facility] 10/23/12 Esther Angeles MD [address] [place] [phone] Referring Obstetrics 01/28/20 Татьяна Carter, PA-C [address] [place] [address] Referring Physician Steam Plant Operator 08/08/23 Assembly Line Brazer Relationship Specialty Start Date End Date Immanuel Kuhn DO [address] [place] [address] PCP - General Family Medicine 10/23/12 Esther Angeles MD [address] [place] [phone] Referring Obstetrics 01/28/20 Татьяна Carter, PA-C [address] [place] [address] Referring Physician Steam Plant Operator 08/08/23 Assembly Line Brazer Relationship Specialty Start Date End Date Immanuel Kuhn DO [address] [place] [address] PCP - General Family Medicine 10/23/12 Esther Angeles MD [address] [place] [phone] Referring Obstetrics 01/28/20 Татьяна Carter, PA-C [address] [place] [address] Referring Physician Steam Plant Operator 08/08/23 Goals (unrecognized section and content) Goals [...] for 09/12 at 11AM per . 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 Reason Comments OR [facility] 12/10/23 Robotic lap left adr enalectomy Reason Comments Returning Patient's Call Results Source Comments (unrecognize d section and content) In the event this informatio n is protected by the Federal Confidentiality of Alcohol and Drug Abuse Patient Records regulations: The Federal rules restrict any use of the information to criminally investigate or prosecute any alcohol or drug abuse patient.[facility] the event this information is protected by the Federal Confidentiality of Alcohol and Drug Abuse Patient Records regulations: The Federal rules restrict any use of the information to criminally investigate or prosecute any alcohol or drug abuse patient.[facility] the event this information is protected by the Federal Confidentiality of Alcohol and Drug Abuse Patient Records regulations: The Federal rules restrict any use of the information to criminally investigate or prosecute any alcohol or drug abuse patient.[facility] the event this information is protected by the Federal Confidentiality of Alcohol and Drug Abuse Patient Records regulations: The Federal rules restrict any use of the information to criminally investigate or prosecute any alcohol or drug abuse patient.[facility] the event this information is protected by the Federal Confidentiality of Alcohol and Drug Abuse Patient Records regulations: The Federal rules restrict any use of the information to criminally investigate or prosecute any alcohol or drug abuse patient.[facility] the event this information is protected by the Federal Confidentiality of Alcohol and Drug Abuse Patient Records regulations: The Federal rules restrict any use of the information to criminally investigate or prosecute any alcohol or drug abuse patient.[facility] the event this information is protected by the Federal Confidentiality of Alcohol and Drug Abuse Patient Records regulations: The Federal rules restrict any use of the information to criminally investigate or prosecute any alcohol or drug abuse patient.[facility] FOR RECORDS PERTAINING TO PATIENTS WHO [...] BE BASED ON THE PRIMARY CLINICAL RECORDS. [facility]. provides no warranty or guarantee of the accuracy or completeness of information in this document.
--- NOTE | 2023-11-16 15:47 | ECG_ITS ---
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
[2023-11-16 16:05] LABS: Alanine Aminotransferase 18 U/L (14-59); Albumin Globulin Ratio 1.2; Albumin Level 4.4 g/dL (3.4-5.0); Alkaline Phosphatase 175 U/L (46-116); Anion Gap 13.6; Aspartate Amino Transferase 20 U/L (15-37); BUN Creatinine Ratio 11.4; Bilirubin Total 1.3 mg/dL (0.2-1.0); Calcium 9.7 mg/dL (8.5-10.1); Carbon Dioxide 29.5 mmol/L (21.0-32.0); Chloride 104 mmol/L (98-107); Estimated GFR (African America >60 (>=60); Estimated GFR (Non-African Ame >60 (>=60); Globulin 3.8 g/dL; Glucose 106 mg/dL (74-106); Magnesium 2.3 mg/dL (1.8-2.4); Sodium 145 mmol/L (136-145); Total Protein 8.2 g/dL (6.4-8.2)
[2023-11-16 16:07] LABS: Potassium 2.1 mmol/L (3.5-5.1)
[2023-11-16] MEDS: POTASSIUM BICARBONATE/CIT 25 MEQ TABLET EFF 50 MEQ PO (16:59)
[2023-11-16] MEDS: POTASSIUM CHLORIDE IN WATER 10 MEQ/100 ML PIGGYBACK 100 MEQ IV ×4 (17:02→20:15)
--- NOTE | 2023-11-16 17:50 | ED.RECABL1 ---
HPI - Recheck/Abnormal Lab/Rx General Chief Complaint: Recheck/Abnormal Lab/Rx Stated Complaint: states her potassium is low Time Seen by Provider: 11/16/23 15:35 Source: patient Mode of arrival: walk-in Limitations: no limitations History of Present Illness HPI narrative: The patient is coming to the ER for chronic hypokalemia she has been having this problem since at least few weeks and she have history of adrenal mass plan to have surgery in December 2023, the patient last potassium level was 2.4 on Saturday, she does presents regularly to hospital to get potassium IV infusion, the patient is denying any complaint of any generalized weakness numbness tingling or any tachycardia Related Data Home Medications ?Medication ?Instructions ?Recorded ?Confirmed buspirone 10 mg tablet 10 mg PO .amhs 08/23/23 11/16/23 lamotrigine 150 mg tablet 150 mg PO Q12H 08/23/23 11/16/23 lurasidone 60 mg tablet 60 mg PO .QD 08/23/23 11/16/23 magnesium oxide 400 mg (241.3 mg 400 mg PO .qd 08/23/23 11/16/23 magnesium) tablet Previous Rx's ?Medication ?Instructions ?Recorded amlodipine 10 mg tablet 10 mg PO DAILY #30 tabs 08/24/23 potassium chloride 20 mEq 20 meq PO BID #60 tabs 08/24/23 tablet,extended release(part/cryst) potassium chloride 20 mEq oral 40 meq PO DAILY 5 days #5 ea 11/16/23 packet Allergies Allergy/AdvReac Type Severity Reaction Status Date / Time No Known Drug Allergies Allergy Verified 11/16/23 15:19 Review of Systems ROS Status of ROS 10 or more systems reviewed and unremarkable except as noted in history and below [facility] Medical History (Updated 11/16/23 @ 17:52 by Jessie Mahoney MD) Left adrenal mass ?E27.8 - Other specified disorders of adrenal gland (ICD-10) Acute hypokalemia ?E87.6 - Hypokalemia (ICD-10) Brain tumor ?D49.6 - Neoplasm of unspecified behavior of brain (ICD-10) Plantar fasciitis of left foot ?M72.2 - Plantar fascial fibromatosis (ICD-10) Plantar fasciitis of right foot ?M72.2 - Plantar fascial fibromatosis (ICD-10) Surgical History (Updated 08/27/23 @ 00:00 by ) History of gastric bypass ?Z98.84 - Bariatric surgery status (ICD-10) Bariatric surgery status ?Z98.84 - Bariatric surgery status (ICD-10) Family History (Updated 08/23/23 @ 20:41 by Joan Abdalla) Mother Family history of cancer Family history of diabetes mellitus Brother Family history of diabetes mellitus Father Family history of diabetes mellitus Family history of hypertension Family history of myocardial infarction Social History (Updated 08/23/23 @ 20:44 by Joan Abdalla) Smoking status: Current every day smoker Second hand tobacco smoke exposure: No Non-prescribed substance use: denies use Previous occupational history: unemployed Known occupational exposures/hazards: No Highest level of school completed/degree received: high school graduate Do you want help with school or training: No Are you now , , , , never or living with a partner: never In a typical week, how many times do you talk on the telephone with family, friends, or neighbors: 3 or more times per week How often do you get together with friends or relatives: once per week How often do you attend restorationism or nondenominational services: never Do you belong to any clubs or organizations such as restorationism groups unions, [employer] or athletic groups, or school groups: no Total score: 1 Score interpretation: A score of less than or equal to 1 indicates the most socially isolated. Little interest or pleasure in doing things: several days Feeling down, depressed, or hopeless: several days Feel stressed/tense/nervous/anxious/difficulty sleeping: very much Life stressors: unknown source of stress Due to disability, difficulty making decisions: No Do you think of yourself as: straight/heterosexual Gender Identity: female Exam Narrative Exam Narrative: Nurses notes and vital signs reviewed and patient is not hypoxic. General: Well-appearing and in no apparent distress. Skin: Warm, dry, no pallor noted. No rash. Head: Normocephalic, atraumatic. Neck: Supple, non-tender. Eye: Pupils are equal, round and EOMI. No scleral icterus. Ears, Nose, Mouth, and Throat: TM are clear, no nasal mucosal hypertrophy. Oral mucosa is moist, no posterior oropharynx erythema, uvula is mid-line Cardiovascular: Regular Rate and Rhythm without murmur, gallop or rub. Respiratory: No accessory muscle use or respiratory distress. Lungs are clear to auscultation, no wheezing, rales or rhonchi Chest Wall: no tenderness Back: No midline thoracic or lumbar vertebral tenderness. No CVA tenderness Musculoskeletal: normal ROM, no calf or popliteal tenderness, no lower extremity edema/swelling GI: Abdomen is soft, non-distended. Normal bowel sounds. No masses appreciated. No tenderness to palpation. No rebound, guarding, or rigidity noted. Neurological: A&O x4. No cranial nerve dysfunction observed. No truncal ataxia. Moves all extremities. Sensation intact. Psychiatric: Cooperative and interactive. Normal mood and affect. Constitutional Vital Signs, click to edit/add: Last Vital Signs Temp 98.3 F 11/16/23 15:19 Pulse 82 11/16/23 15:19 Resp 18 11/16/23 15:19 BP 184/105 H 11/16/23 15:19 Pulse Ox 99 11/16/23 15:19 O2 Del Method Room Air 11/16/23 15:19 Course Vital Signs Vital signs: Vital Signs Temperature 98.3 F 11/16/23 15:19 Pulse Rate 82 11/16/23 15:19 Respiratory Rate 18 11/16/23 15:19 Blood Pressure 184/105 H 11/16/23 15:19 Pulse Oximetry 99 11/16/23 15:19 Oxygen Delivery Method Room Air 11/16/23 15:19 Temperature 98.3 F 11/16/23 15:19 Pulse Rate 82 11/16/23 15:19 Respiratory Rate 18 11/16/23 15:19 Blood Pressure 184/105 H 11/16/23 15:19 Pulse Oximetry 99 11/16/23 15:19 Oxygen Delivery Method Room Air 11/16/23 15:19 MDM - Recheck/Abnormal Lab/Rx MDM Narrative Medical decision making narrative: The patient's EKG showing sinus rhythm with a heart rate of [address] elevation or depression no prolongation of the QTc No hyperkalemic changes The patient blood workup shows potassium level of 2.1 with magnesium level being normal The patient was provided in the ER with 1 dose of p.o. potassium in addition to 4 doses of 10 mEq potassium The patient will either come back to the ER for follow-up on tomorrow or Saturday or follow-up with her primary care doctor and she was instructed about the importance of follow-up with her primary care on Saturday Lab Data Labs: Lab Results 11/16/23 Range/Units 15:35 Sodium 145 (136-145) mmol/L Potassium 2.1 L* (3.5-5.1) mmol/L Chloride 104 (98-107) mmol/L Carbon Dioxide 29.5 (21.0-32.0) mmol/L Anion Gap 13.6 BUN 9.0 (7.0-18.0) mg/dL Creatinine 0.79 (0.55-1.02) mg/dL Est GFR ( Amer) >60 (>=60) Est GFR (Non-Af Amer) >60 (>=60) BUN/Creatinine Ratio 11.4 Glucose 106 (74-106) mg/dL Calcium 9.7 (8.5-10.1) mg/dL Magnesium 2.3 (1.8-2.4) mg/dL Total Bilirubin 1.3 H (0.2-1.0) mg/dL AST 20 (15-37) U/L ALT 18 (14-59) U/L Alkaline Phosphatase 175 H (46-116) U/L Total Protein 8.2 (6.4-8.2) g/dL Albumin 4.4 (3.4-5.0) g/dL Globulin 3.8 g/dL Albumin/Globulin Ratio 1.2 Discharge Plan Discharge Stand Alone Forms: Portal Instructions Chief Complaint: Recheck/Abnormal Lab/Rx Clinical Impression: Chronic hypokalemia Patient Disposition: Home, Self-Care Time of Disposition Decision: 17:52 Condition: Good Prescriptions / Home Meds: New potassium chloride 20 mEq packet 40 meq PO DAILY 5 Days Qty: 5 0RF No Action buspirone 10 mg tablet 10 mg PO .amhs lamotrigine 150 mg tablet 150 mg PO Q12H lurasidone 60 mg tablet 60 mg PO .QD magnesium oxide 400 mg (241.3 mg magnesium) tablet 400 mg PO .qd amlodipine 10 mg tablet 10 mg PO DAILY Qty: 30 0RF potassium chloride 20 mEq tablet,ER particles/crystals 20 meq PO BID Qty: 60 0RF Print Language: Slovenian Instructions: Hypokalemia (ED) Referrals: PAUL KIRBY [Primary Care Provider] - 1 week
== END 2023-11-16 21:58 | disposition home or self-care (01) ==
PROVIDERS: Emergency Provider Emergency Medicine; PCP Family Medicine
DX: E87.6 Hypokalemia (principal); Z79.899 Other long term (current) drug therapy; Z98.84 Bariatric surgery status; F17.210 Nicotine dependence, cigarettes, uncomplicated
CPT/HCPCS: 36415; 80053; 83735; 93005; 96365; 96366; 99285

== ENCOUNTER 2023-11-18 14:08 | Outpatient (OUT) | payer OTHER, SELFPAY ==
[2023-11-18 14:48] LABS: Potassium 2.3 mmol/L (3.5-5.1)
== END 2023-11-18 14:09 | disposition home or self-care (01) ==
PROVIDERS: PCP Family Medicine
DX: K90.9 Intestinal malabsorption, unspecified (principal); Z98.84 Bariatric surgery status; R53.83 Other fatigue; D50.9 Iron deficiency anemia, unspecified; I10 Essential (primary) hypertension; E87.6 Hypokalemia; K21.00 Gastro-esophageal reflux disease with esophagitis, without bleeding
CPT/HCPCS: 36415; 84132

== ENCOUNTER 2023-11-18 14:23 | Emergency (ER) | payer OTHER, SELFPAY | END 2023-11-18 14:36 | disposition left against medical advice (07) | LOC: ER 14:34 | PROVIDERS: Emergency Provider Emergency Medicine; PCP Family Medicine | DX: Z53.21 Procedure and treatment not carried out due to patient leaving prior to being seen by health care provider (principal) ==

== ENCOUNTER 2023-12-07 02:45 | Emergency (ER) | payer OTHER, SELFPAY ==
[2023-12-07] VITALS (36 sets, daily range): BP systolic 148–177; BP diastolic 76–105; PULSE 50–75; TEMP 36.5; O2SAT 95–99; BMI 28.5
--- OUTSIDE RECORDS SUMMARY | 2023-12-07 02:55 | XMS_ITS | CCD ---
Author Organization [facility] Care Team Providers Care Pipe Roller Name Role Phone Spasic, Carmelo Unavailable Unavailable Spasic, Carmelo Unavailable Unavailable IMMANUEL KUHN Unavailable Unavailable Immanuel Kuhn Unavailable Unavailable Unavailable DO Immanuel Kuhn Primary Care Provider [phone] NETTIE Prakash Attending Provider REJI Rhodes Attending [...] Unavailable Judy, Dr. Hull Attending Unavaila darryn uKhn, Dr. Immanuel Toure Primary Care Unavaila ble Judy, Dr. Hull Attending Unavaila ble Judy, Dr. Hull Referring Unavaila darryn Kuhn, Dr. Immanuel Toure Primary Care Unavaila ble Dolores Ralphul Unavailable Immanuel Kuhn DO Primary Care Provider [phone] Bridgette URIBE, Esther Fontenot Unavailable Татьяна Carter PA-C Unavailable [phone] DO Immanuel Kuhn Primary Care Provider [phone] MD Zara Ralph Attending Provider Immanuel Kuhn DO Primary Care Provider Татьяна Angeles Unavailable ARIANNA LORA Referring Unavailable IMMANUEL KUHN Primary Care Unavailable IMMANUEL KUHN Primary Care Unavailable NATASHA CHASE Referring Unavailable COTRELL, ARMANDO Referring Unavailable IMMANUEL KUHN Primary Care Unavailable COTRELL, ARMANDO Referring Unavailable IMMANUEL KUHN Primary Care Unavailable IMMANUEL KUHN Primary Care Unavailable GURAJALA, FERMIN HONEY Admitting Unavailabl e KASSIDY FERMIN HONEY Attending Unavailabl e MARIO SANTIAGO Attending Unavailable VEERAMACHANENI, RAVALI Referring Unavailab IMMANUEL Garcia Primary Care Unavailable IMMANUEL KUHN Primary Care Unavailable IMMANUEL KUHN Primary Care Unavailable VEERAMACHANENI, RAVALI Referring Unavailab le IMMANUEL KUHN Primary Care Unavailable VEERAMACHANENI, RAVALI Referring Unavailab le IMMANUEL KUHN Primary Care Unavailable VEERAMACSLICKENI, JULYALI Attending Unavailab IMMANUEL Garcia Primary Care Unavailable Bam, Immanuel Primary Care Unavailable Zara Ralph Attending Unavailable Zara Ralph Admitting Unavailable JUAN BARON Attending Unavailable GAGANDEEP DUNAWAYANDRA H Referring Unavailable ТАТЬЯНА CARTER Attending Unavailable IMMANUEL KUHN Referring Unavailable BRAUN, SHEILA L Attending Unavailable DUNAWAY, MANASA H Attending Unavailable DUNAWAY, MANASA H Referring Unavailable BRAUN, SHEILA L Attending Unavailable TRENTON, MANASA H [...] BARON Attending Unavailable MANASA DUNAWAY Referring Unavailable ELIOT WOLF Attending Unavailable IMMANUEL KUHN Referring Unavailable SHEILA BRAUN Attending Unavailable MISSY, SHEILA L Attending Unavailable BRAUN, SHEILA L Attending Unavailable MISSY, SHEILA L Attending Unavailable ELIOT WOLF L Attending Unavailable SHEILA BRAUN L Attending Unavailable SHEILA BRAUN L Attending Unavailable Immanuel Kuhn DO Primary Care Provider [phone] Allergies Allergy Classification Reported Allergen(s) Allergy Type Date of Onset Reaction(s) Facility (1 source) No Known Medication Allergies; Translations: [No Known Medication Allergies] Propensity to adverse reactions to drug (disorder) [facility] Repository Medications Current Medications Medication Drug Class(es) Dates Sig (Normalized) Sig (Original) amLODIPine 10 mg oral tablet (15 sources) Dihydropyridine Calcium Channel Clover Start: 11-19-2023 take 1 tablet by mouth once amLODIPine (NORVASC) 10 mg tablet Take 1 tablet by mouth every afternoon. 0 11/19/2023 Active Start: 09-29-2019 End: 08-20-2023 take 1 tablet [...] 0 Active brexpiprazole 1 mg oral tablet (20 sources) Atypical Antipsychotic Start: 06-18-20 End: 08-18-19 take 1 tablet by mouth once daily REXULTI 1 mg tablet TAKE 1 TABLET BY MOUTH ONCE DAILY AT THE SAME TIME 0 06/18/2023 Active Comment on above: TAKE 1 TABLET BY ROSITA TH ONCE DAILY AT THE SAME TIME busPIRone hydrochloride 10 mg oral tablet (20 sources) Start: 03-17-20 take 1 tablet by [...] medicated liquid soap (8 sources) Start: 05-23-20 Hibiclens 4 % external liquid Indications: Hidradenitis suppurativa of right axilla Apply topically Daily as needed for wound care. 236 mL 1 05/23/2023 Active clonazePAM 0.5 mg oral tablet (7 sources) Benzodiazepine Start: 07-12-20 take 1 tablet by mouth every twelve [...] tablet by mouth once daily, then take [id number] tablet by mouth once Norethindrone-Eth Estradiol (ALYACEN , ,) 1-35 mg-mcg per tablet Take 1 tablet by mouth once daily. 0 08/20/2023 Discontinued Comment on above: Take 1 tablet by rosita once daily. ferrous sulfate 134 mg oral tablet (10 sources) Ferrous Sulfate 27 mg iron tab Take by mouth twice daily. 0 Active Comment on above: Take by mouth twice daily. gabapentin 400 mg oral capsule (20 sources) Anti-epileptic Agent Start: 05-20-20 gabapentin (NEURONTIN) 400 mg capsule 1 capsule. 0 05/20/2022 Active Comment on above: 1 capsule. ketoconazole 20 mg/ml topical cream (8 sources) Azole Antifungal Start: 07-13-20 ketoconazole (NIZOral) 2 % cream Apply 1 application topically in the morning. 0 07/13/2022 Active lamoTRIgine 150 mg oral tablet (20 sources) Mood Stabilizer, Anti-epileptic Agent Start: 05-21-20 End: 11-07-19 24 lamoTRIgine (LAMICTAL) 150 mg tablet Take 150 mg by mouth. 0 05/21/2022 Active Comment on above: Take 150 mg by mouth . loperamide hydrochloride 2 mg oral tablet (3 sources) Opioid Agonist Start: 05-03-20 Loperamide (Imodium A-D) 2 mg tablet Active 2 MG PO Q4H May 02, 2017 11:00pm after each loose stool until symptoms controlled; do not exceed 16 mg total dose in 24 hrs LORazepam 1 mg oral tablet (1 source) Benzodiazepine Start: 11-28-19 LORazepam (ATIVAN) 1 mg tablet TAKE 1 - 2 TABLETS BY MOUTH PRIOR TO PROCEDURE 0 11/28/2023 Active lurasidone hydrochloride 60 mg oral tablet (19 sources) Atypical Antipsychotic Start: 07-20-20 End: 11-27-19 24 lurasidone (LATUDA) 60 mg tab tablet Take 60 mg by mouth. 0 07/20/2022 Active Comment on above: Take 60 mg by mouth. magnesium oxide 400 mg oral tablet (12 sources) Start: 09-12-19 take 1 tablet by mouth once daily in the morning magnesium oxide (MAG-OX) 400 mg (241.3 mg magnesium) tablet Take 1 tablet by mouth every morning. 0 09/12/2023 Active Start: 07-12-2023 [facility] capsule [facility] Magnesium Oxide -Mg Supplement (Magnesium Extra Strength) 400 MG capsule Indications: Hypomagnesemia Take 1 capsule by mouth in the morning. 30 capsule 5 07/12/2023 Active take 1 tablet by [facility] every twenty-four hours Magnesium Oxide 400 MG [...] extended release oral tablet (20 sources) Start: 04-27-20 22 take 2 tablets by mouth once daily potassium chloride ER (KLOR-CON) 20 mEq tablet Take 20 mEq by mouth. 4 meq 2 x daily 0 04/27/2022 Active Start: 04-27-2022 potassium chlo ride ER (KLOR-CON) 20 mEq tablet Take 20 mEq by mouth. 0 04/27/2022 Active take 4 tablets by [facility] every twelve hours Potassium Chloride ER 10 MEQ 4 capsules with food Orally Twice a day Active take 1 tablet by [facility] every twenty-four hours Potassium Chloride ER 20 MEQ 1 tablet with food Orally Once a day Active Comment on above: Take 20 mEq by mouth . promethazine hydrochloride 25 mg oral tablet (3 sources) Phenothiazine Start: 05-03-20 17 take 25 mg by mouth every six hours Promethazine Active 25 MG PO Q6H May 02, 2017 11:00pm spironolactone 25 mg oral tablet (9 sources) Aldosterone Antagonist Start: 11-20-19 24 take 1 tablet by mouth once spironolactone (ALDACTONE) 25 mg tablet Take 1 tablet by mouth every afternoon. 0 11/20/2023 Active Start: 05-23-2023 take 1 tablet by rosita th once daily spironolactone (Aldactone) 50 MG tablet Indications: Hypokalemia TAKE 1 TABLET BY MOUTH EVERY DAY FOR 90 DAYS 90 tablet 1 05/23/2023 Active SUMAtriptan 100 mg oral tablet (20 sources) Serotonin-1b and Serotonin-1d Receptor Agonist Start: 08-12-2023 SUMAtriptan (IMITREX ) 100 mg tablet TAKE 1 TAB AT MIGRAINE ONSET, MAY REPEAT IN 2 HOURS NEEDED, MAX 2 TABS IN 24 HOURS 0 08/17/2023 Active Comment on above: TAKE 1 TAB AT MIGRAI NE ONSET, MAY REPEAT IN 2 HOURS NEEDED, MAX 2 TABS IN 24 HOURS zolpidem tartrate 10 mg oral tablet (20 sources) gamma-Aminobutyric Acid-ergic Agonist Start: 08-19-2023 End: 09-18-2023 zolpidem (AMBIEN) 10 mg Completed/Discontinued Medications Medication Drug Class(es) Dates Sig (Normalized) Sig (Original) carvedilol 25 mg oral tablet (20 sources) alpha-Adrenergic Clover, beta-Adrenergic Lcover Start: 08-18-2021 End: 12-06-2023 take 1 tablet by mouth twice daily carvedilol (COREG) 25 mg tablet Take 1 tablet by mouth two times a day. 0 08/18/2021 12/06/2023 Discontinued Comment on above: Take 1 tablet by rosita th two times a day. dexamethasone 1 mg oral tablet (1 source) Corticosteroid Start: 08-20-2023 dexAMETHasone (DECADRON) 1 mg tablet Take 1 tablet at 11 pm and draw blood the next day 1 tablet 0 08/20/2023 Active Comment on above: Take 1 tablet at 11 pm and draw blood the next day hydrALAZINE hydrochloride 100 mg oral tablet (20 sources) Arteriolar Vasodilator Start: 07-04-2022 End: 12-06-2023 take 1 tablet by mouth twice daily hydrALAZINE (APRESOLINE) 100 mg tablet Take 1 tablet by mouth two times a day. 0 07/04/2022 12/06/2023 Discontinued Start: 04-23-2022 take 1 tablet by rosita twice daily at mealtime hydrALAZINE HCl - 25 MG Oral Tablet TAKE 1 TABLET BY MOUTH TWICE A DAY WITH FOOD Quantity: 180 Refills: 0 Ordered: 24-Apr-2022 DO Start : 23-Apr-2022 Active Comment on above: Take 1 tablet by rosita two times a day. minocycline 100 mg oral capsule (1 source) Tetracycline-class Drug Start: 3 End: 4 take 1 capsule by mouth twice daily minocycline 100 mg capsule Take 1 capsule by mouth twice daily. 60 capsule 4 11/26/2012 08/20/2023 Discontinued Comment on above: Take 1 capsule by [facility] twice daily. Natazia 3/2-2/2-3/1 MG Oral Tablet (2 sources) Start: 2 take 1 tablet by mouth once daily [...] BLOOD-DRUG TEST] Onset: 3 Episodic Anxiety disorders (19 sources) Generalized anxiety disorder; Translations: [Generalized anxiety disorder] Onset: 7 12-06-2022 Chronic Cancer of brain and nervous system (20 sources) Malignant neoplasm of brain, unspecified; Translations: [Glioma] Onset: 8 Resolved: 3 Chronic Conduction disorders (10 sources) First degree atrioventricular block; Translations: [Atrioventricular [...] 3 05-03-2017 Chronic Fluid and electrolyte disorders (11 sources) Hypokalemia; Translations: [Alkalosis] Onset: 3 Episodic Headache; including migraine (18 sources) Migraine with aura; Translations: [Migraine with [...] (3 sources) Nausea; Translations: [Nausea] 05-03-2017 Episodic Nutritional deficiencies (19 sources) Iron deficiency; Translations: [Iron deficiency] Onset: 0 02-02-2020 Episodic Osteoarthritis (8 sources) Osteoarthritis of left knee joint; Translations: [Unilateral primary osteoarthritis, left knee] Onset: 3 02-21-2023 Chronic Other and unspecified benign neoplasm (1 source) [...] adrenal cortex (disorder)] Chronic Other endocrine disorders (11 sources) Primary aldosteronism; 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] [...] Diarrhea; Translations: [Diarrhea, unspecified] 05-03-2017 Episodic Other gastrointestinal disorders (2 sources) History of bariatric surgical procedure; Translations: [Bariatric surgery status] Onset: 4 12-06-2023 Episodic Other nervous system disorders (8 sources) [...] Problem Classification Problem Date Documented Date Episodic/Chronic Deficiency and other anemia (8 sources) Microcytic anemia; Translations: [Iron deficiency anemia, unspecified] Onset: 11-05-2019 02-21-2023 Episodic Headache; including migraine (8 sources) Generalized headache; Translations: [Generalized headache] Onset: 07-15-2018 02-21-2023 Episodic Other aftercare (1 source) Other retirement (current) drug therapy; Translations: [OTH CORRECTION CURRENT DRUG THERAPY] Onset: 09-10-2022 Episodic Other and unspecified benign neoplasm (13 sources) Adenoma of left adrenal gland; Translations: [Benign neoplasm of left adrenal gland] Onset: 09-04-2023 08-20-2023 Episodic Other connective tissue disease (8 sources) [...] Resolved: 02-21-2023 02-21-2023 Episodic Other skin disorders (18 sources) Axillary hidradenitis suppurativa; Translations: [Hidradenitis suppurativa] Onset: 10-27-2012 10-27-2012 Episodic Other skin disorders (18 sources) Comedone; Translations: [Acne vulgaris] Onset: 10-27-2012 [...] Test Name Value Interpretation Reference Range Facility Comprehensive metabolic 2000 panelon 12-06-2023 Albumin [Mass/Vol] 4.3 g/dL 3.9 - 4.9 g/dL [facility] ALP [Catalytic activity/Vol] 147 U/L High 34 - 123 U/L [facility] ALT [Catalytic activity/Vol] 12 U/L 7 - 38 U/L [facility] Anion gap [Moles/Vol] 15 mmol/L 9 - 18 mmol/L [facility] AST [Catalytic activity/Vol] 18 U/L 13 - 35 U/L [facility] Bilirubin [Mass/Vol] 0.9 mg/dL 0.2 - 1 .3 mg/dL [facility] Calcium [Mass/Vol] 9.7 mg/dL 8.5 - 10. 2 mg/dL [facility] Chloride [Moles/Vol] 105 mmol/L 97 - 10 5 mmol/L [facility] CO2 [Moles/Vol] 27 mmol/L 22 - 30 mmol/L [facility] Creatinine [Mass/Vol] 0.76 mg/dL 0.58 - 0.96 mg/dL [facility] GFR/1.73 sq M.predicted among non-blacks MDRD (S/P/Bld) [Vol rate/Area] 107 mL/min/{1.73_m2} - PINF [facility] Comment on above: Estimated Glomerular Filtration Rate (eGFR) is calculated using the 2020 CKD-EPI creatinine equation. This equation utilizes serum creatinine, sex, and age as parameters. The creatinine assay has traceable calibration to isotope dilution-mass spectrometry. Refer to KDIGO guidelines for clinical interpretation. In patients with unstable renal function, e.g. those with acute kidney injury, the eGFR may not accurately reflect actual GFR. Glucose [Mass/Vol] 77 mg/dL 74 - 99 mg/dL [facility] Comment on above: The [place] Di[employer] [place] Association (ADA) provides guidance for cutoff values [...] Standards of Medical Care in Diabetes 2016, [place] [employer]. Diabetes Care. 2016.39(Suppl 1). Interpretation and review of laboratory results Abnormal [facility] Potassium [Moles/Vol] 2.4 mmol/L Critically low 3.7 - 5.1 mmol/L [facility] Protein [Mass/Vol] 6.8 g/dL 6.3 - 8.0 g/dL [facility] Sodium [Moles/Vol] 147 mmol/L High 136 - 144 mmol/L [facility] Urea nitrogen [Mass/Vol] 19 mg/dL 7 - 21 mg/dL [facility] Corwin 11-19-2023 KYLE Telephone (SHANE) -- HEIDI JOY ([id number]) 1990 F Date Time Provider Department 11/19/23 MARIO SANTIAGO During your visit today, we recorded the following information about you: Valarie Wharton 11/19/2023 3:50 PM Signed Pt want to confirm one or two weeks for being off of work after surgery? Allergies As of Date: 11/19/2023 (No Known Allergies) Date Reviewed: 10/23/2023 Reviewed by: Digna Brody, JAVAN - Fully Assessed Reason for Visit: Patient Question [8654] Cmt: Pt want to confirm one or two weeks for being off of work after surgery? Prescriptions as of 11/19/2023 - busPIRone (BUSPAR) 10 mg tablet TAKE [...] twice daily. Problem List As Of Date 11/19/2023 Noted Resolved Hidradenitis suppurativa of right axilla [L73.2]10/27/2012 Comedone [L70.0] 10/27/2012 Iron deficiency [E61.1] 02/02/2020 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] 09/04/2023 Primary hyperaldosteronism (HCC) [E26.09] 09/04/2023 Encounter Status:Closed by VALARIE WHARTON on 11/19/23 Normal [facility] Basic metabolic 2000 panelon 11-15-2023 Anion gap [Moles/Vol] 12 mmol/L Normal 9-18 [facility] Comment on above: Order Comment: Speci men Type: BLOOD SPECIMENOrdering Facility: [facility] Address: [address] [place] [address] Performed By: #### 2 4321-2 ####[facility] LABCLIA [id number] [place] [address] Calcium [Mass/Vol] 10.1 mg/dL Normal 8.5-10.2 [facility] Comment on above: Order Comment: Speci men Type: BLOOD SPECIMENOrdering Facility: [facility] Address: [address] [place] [address] Performed By: #### 2 4321-2 ####[facility] LABCLIA [id number] [place] [address] Chloride [Moles/Vol] 105 mmol/L Normal 97-105 [facility] Comment on above: Order Comment: Speci men Type: BLOOD SPECIMENOrdering Facility: [facility] Address: [address] [place] [address] Performed By: #### 2 4321-2 ####[facility] LABCLIA [id number] [place] [address] CO2 [Moles/Vol] 29 mmol/L Normal 22-30 [facility] Comment on above: Order Comment: Speci men Type: BLOOD SPECIMENOrdering Facility: [facility] Address: [address] [place] [address] Performed By: #### 2 4321-2 ####[facility] LABCLIA [id number] [place] [address] Creatinine [Mass/Vol] 0.84 mg/dL Normal 0.58-0.96 [facility] Comment on above: Order Comment: Speci men Type: BLOOD SPECIMENOrdering Facility: [facility] Address: [address] [place] [address] Performed By: #### 2 4321-2 ####[facility] LABCLIA [id number] [place] [address] Creatinine and Glomerular filtration rate.predicted panel (S/P/Bld) 95 mL/min/1.73m??? Normal >=60 [facility] Comment on above: Order Comment: Speci men Type: BLOOD SPECIMENOrdering Facility: [facility] Address: [address] [place] [address] Result Comment: Rachel mated Glomerular Filtration Rate [...] actual GFR. Performed By: #### 2 4321-2 ####[facility] LABCLIA [id number] [place] [address] Glucose [Mass/Vol] 76 mg/dL Normal 74-99 [facility] Comment on above: Order Comment: Speci men Type: BLOOD SPECIMENOrdering Facility: [facility] Address: [address] [place] [address] Result Comment: The [place] Diabetes Association (ADA) provides guidance for cutoff [...] Standards of Medical Care in Diabetes 2016, [place] Diabetes Association. Diabetes Care. 2016.39(Suppl 1). Performed By: #### 2 4321-2 ####[facility] LABCLIA [id number] [place] [address] Potassium [Moles/Vol] 2.4 mmol/L Critically low 3.7-5.1 [facility] Comment on above: Order Comment: Speci men Type: BLOOD SPECIMENOrdering Facility: [facility] Address: [address] [place] [address] Performed By: #### 2 4321-2 ####[facility] LABCLIA [id number] [place] [address] Sodium [Moles/Vol] 146 mmol/L High 136-144 [facility] Comment on above: Order Comment: Speci men Type: BLOOD SPECIMENOrdering Facility: [facility] Address: [address] [place] [address] Performed By: #### 2 4321-2 ####[facility] LABCLIA [id number] [place] [address] Urea nitrogen [Mass/Vol] 9 mg/dL Normal 7-21 [facility] Comment on above: Order Comment: Speci men Type: BLOOD SPECIMENOrdering Facility: [facility] Address: [address] [place] [address] Performed By: #### 2 4321-2 ####[facility] LABCLIA [id number] [place] [address] [place] 11-15-2023 CNPN Telephone (ENDOMN) -- HEIDI JOY ([id number]) 1990 F Date Time Provider Department 11/15/23 ARIANNA LORA During your visit today, we recorded the following information about you: Griselda Vann RN 11/15/2023 2:14 PM Signed Lab Contacted Nurses 2:09 PM Critical Value Potassium 2.4 received from Lab (Daryl) at 2:05. Notified Jasmyne at 2:11. Griselda Vann RN [facility] Griselda Vann RN 11/15/2023 2:40 PM Signed Called patient: she states she does not have any symptoms. She was advises to go to the ER. She verbalized understanding. Griselda Vann RN [facility] Allergies As of Date: 11/15/2023 (No Known Allergies) Date Reviewed: 10/23/2023 Reviewed by: Digna Brody RN - Fully Assessed Reason for Visit: Critical Results [1705] Prescriptions as of 11/18/2023 - busPIRone (BUSPAR) 10 mg tablet TAKE [...] twice daily. Problem List As Of Date 11/15/2023 Noted Resolved Hidradenitis suppurativa of right axilla [L73.2]10/27/2012 Comedone [L70.0] 10/27/2012 Iron deficiency [E61.1] 02/02/2020 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] 09/04/2023 Primary hyperaldosteronism (HCC) [E26.09] 09/04/2023 Encounter Status:Closed by ARIANNA LORA on 11/18/23 Normal [facility] Basic metabolic 2000 panelon 11-14-2023 Anion gap [Moles/Vol] 12 mmol/L 9 - 18 mmol/L [facility] Calcium [Mass/Vol] 9.6 mg/dL 8.5 - 10. 2 mg/dL [facility] Chloride [Moles/Vol] 106 mmol/L High 97 - 10 5 mmol/L [facility] CO2 [Moles/Vol] 29 mmol/L 22 - 30 mmol/L [facility] Creatinine [Mass/Vol] 0.66 mg/dL 0.58 - 0.96 mg/dL [facility] Estimated Glomerular Filtration Rate 120 mL/min/1.73m >=60 mL/min/1.7 3m [facility] Glucose [Mass/Vol] 97 mg/dL 74 - 99 mg/dL [facility] Potassium [Moles/Vol] 2.3 mmol/L Critically low 3.7 - 5.1 mmol/L [facility] Sodium [Moles/Vol] 147 mmol/L High 136 - 144 mmol/L [facility] Urea nitrogen [Mass/Vol] 7 mg/dL 7 - 21 mg/dL [facility] Anion gap [Moles/Vol] 12 mmol/L Normal 9-18 [facility] Comment on above: Order Comment: Speci men Type: BLOOD SPECIMENOrdering Facility: [facility] Address: [address] [place] [address] Performed By: #### 2 4321-2 ####[facility] LABCLIA [id number] [place] [address] [place] Calcium [Mass/Vol] 9.6 mg/dL Normal 8.5-10.2 [facility] Comment on above: Order Comment: Speci men Type: BLOOD SPECIMENOrdering Facility: [facility] Address: [address] [place] [address] Performed By: #### 2 4321-2 ####[facility] LABCLIA [id number] [place] [address] [place] Chloride [Moles/Vol] 106 mmol/L High 97-105 [facility] Comment on above: Order Comment: Speci men Type: BLOOD SPECIMENOrdering Facility: [facility] Address: [address] [place] [address] Performed By: #### 2 4321-2 ####[facility] LABCLIA [id number] [place] [address] [place] CO2 [Moles/Vol] 29 mmol/L Normal 22-30 [facility] Comment on above: Order Comment: Speci men Type: BLOOD SPECIMENOrdering Facility: [facility] Address: [address] [place], [place] [address] Performed By: #### 2 4321-2 ####[facility] LABCLIA [id number] [place] [address] [place] Creatinine [Mass/Vol] 0.66 mg/dL Normal 0.58-0.96 [facility] Comment on above: Order Comment: Speci men Type: BLOOD SPECIMENOrdering Facility: [facility] Address: [address] [place] [address] Performed By: #### 2 4321-2 ####[facility] LABCLIA [id number] [place] [address] [facility] [place] Creatinine and Glomerular filtration rate.predicted panel (S/P/Bld) 120 mL/min/1.73m??? Normal >=60 [facility] Comment on above: Order Comment: Peter myles Type: BLOOD SPECIMENOrdering Facility: [facility] Address: [address] [place] [address] Result Comment: Rachel mated Glomerular Filtration Rate [...] actual GFR. Performed By: #### 2 4321-2 ####[facility] LABCLIA [id number] [place] [address] [place] Glucose [Mass/Vol] 97 mg/dL Normal 74-99 [facility] Comment on above: Order Comment: Peter myles Type: BLOOD SPECIMENOrdering Facility: [facility] Address: [address] [place] [address] Result Comment: The [place] Diabetes Association (ADA) provides guidance for cutoff [...] Standards of Medical Care in Diabetes 2016, [place] [employer]. Diabetes Care. 2016.39(Suppl 1). Performed By: #### 2 4321-2 ####[facility] LABCLIA [id number] [place] [address] [place] Potassium [Moles/Vol] 2.3 mmol/L Critically low 3.7-5.1 [facility] Comment on above: Order Comment: Speci men Type: BLOOD SPECIMENOrdering Facility: [facility] Address: [address] [place] [address] Performed By: #### 2 4321-2 ####[facility] LABCLIA [id number] [place] [address] [place] Sodium [Moles/Vol] 147 mmol/L High 136-144 [facility] Comment on above: Order Comment: Speci men Type: BLOOD SPECIMENOrdering Facility: [facility] Address: [address] [place] [address] Performed By: #### 2 4321-2 ####[facility] LABCLIA [id number] [place] [address] [place] Urea nitrogen [Mass/Vol] 7 mg/dL Normal 7-21 [facility] Comment on above: Order Comment: Speci men Type: BLOOD SPECIMENOrdering Facility: [facility] Address: [address] [place] [address] Performed By: #### 2 4321-2 ####[facility] LABCLIA [id number] [place] [address] [place] CBC W Auto Differential pane l (Bld)on 11-14-2023 Basophils (Bld) [#/Vol] 0.04 10*3/uL Normal <0.11 [facility] Comment on above: Order Comment: Speci men Type: BLOOD SPECIMENOrdering Facility: [facility] Address: [address] [place] [address] Performed By: #### 5 7021-8 ####[facility] LABCLIA [id number] [place] [address] Basophils/100 WBC (Bld) 0.6 % Normal [facility] Comment on above: Order Comment: Speci men Type: BLOOD SPECIMENOrdering Facility: [facility] Address: [address] [place] [address] Performed By: #### 5 7021-8 ####[facility] LABCLIA [id number] [place] [address] Differential cell count method Nom (Bld) Auto Normal [facility] Comment on above: Order Comment: Speci men Type: BLOOD SPECIMENOrdering Facility: [facility] Address: [address] [place] [address] Performed By: #### 5 7021-8 ####[facility] LABCLIA [id number] [place] [address] Eosinophils (Bld) [#/Vol] 0.10 10*3/uL Normal <0.46 [facility] Comment on above: Order Comment: Speci men Type: BLOOD SPECIMENOrdering Facility: [facility] Address: [address] [place] [address] Performed By: #### 5 7021-8 ####[facility] LABCLIA [id number] [place] [address] Eosinophils/100 WBC (Bld) 1.4 % Normal [facility] Comment on above: Order Comment: Speci men Type: BLOOD SPECIMENOrdering Facility: [facility] Address: [address] [place] [address] Performed By: #### 5 7021-8 ####[facility] LABCLIA [id number] [place] [address] Erythrocyte distribution width (RBC) [Ratio] 14.7 % Normal 11.5-15.0 [facility] Comment on above: Order Comment: Speci men Type: BLOOD SPECIMENOrdering Facility: [facility] Address: [address] [place] [address] Performed By: #### 5 7021-8 ####[facility] LABCLIA [id number] [place] [address] Hematocrit (Bld) [Volume fraction] 43.9 % Normal 36.0-46.0 [facility] Comment on above: Order Comment: Speci men Type: BLOOD SPECIMENOrdering Facility: [facility] Address: [address] [place] [address] Performed By: #### 5 7021-8 ####[facility] LABCLIA [id number] [place] [address] Hemoglobin (Bld) [Mass/Vol] 14.7 g/dL Normal 11.5-15.5 [facility] Comment on above: Order Comment: Speci men Type: BLOOD SPECIMENOrdering Facility: [facility] Address: [address] [place] [address] Performed By: #### 5 7021-8 ####[facility] LABCLIA [id number] [place] [address] Immature granulocytes (Bld) [#/Vol] 10*3/uL Normal <0.10 [facility] Comment on above: Order Comment: Speci men Type: BLOOD SPECIMENOrdering Facility: [facility] Address: [address] [place] [address] Performed By: #### 5 7021-8 ####[facility] LABCLIA [id number] [place] [address] Immature granulocytes/100 WBC (Bld) 0.1 % Normal [facility] Comment on above: Order Comment: Speci men Type: BLOOD SPECIMENOrdering Facility: [facility] Address: [address] [place] [address] Performed By: #### 5 7021-8 ####[facility] LABCLIA [id number] [place] [address] Lymphocytes (Bld) [#/Vol] 1.93 10*3/uL Normal 1.00-4.00 [facility] Comment on above: Order Comment: Speci men Type: BLOOD SPECIMENOrdering Facility: [facility] Address: [address] [place] [address] Performed By: #### 5 7021-8 ####[facility] LABCLIA [id number] [place] [address] Lymphocytes/100 WBC (Bld) 27.7 % Normal [facility] Comment on above: Order Comment: Speci men Type: BLOOD SPECIMENOrdering Facility: [facility] Address: [address] [place] [address] Performed By: #### 5 7021-8 ####[facility] LABCLIA [id number] [place] [address] MCH (RBC) [Entitic mass] 28.5 pg Normal 26.0-34.0 [facility] Comment on above: Order Comment: Speci men Type: BLOOD SPECIMENOrdering Facility: [facility] Address: [address] [place] [address] Performed By: #### 5 7021-8 ####[facility] LABIA [id number] [place] [address] MCHC (RBC) [Mass/Vol] 33.5 g/dL Normal 30.5-36.0 [facility] Comment on above: Order Comment: Speci men Type: BLOOD SPECIMENOrdering Facility: [facility] Address: [address] [place] [address] Performed By: #### 5 7021-8 ####[facility] LABCLIA [id number] [place] [address] MCV (RBC) [Entitic vol] 85.2 fL Normal 80.0-100.0 [facility] Comment on above: Order Comment: Speci men Type: BLOOD SPECIMENOrdering Facility: [facility] Address: [address] [place] [address] Performed By: #### 5 7021-8 ####[facility] LABIA [id number] [place] [address] Monocytes (Bld) [#/Vol] 0.49 10*3/uL Normal <0.87 [facility] Comment on above: Order Comment: Speci men Type: BLOOD SPECIMENOrdering Facility: [facility] Address: [address] [place] [address] Performed By: #### 5 7021-8 ####[facility] LABCLIA [id number] [place] [address] Monocytes/100 WBC (Bld) 7.0 % Normal [facility] Comment on above: Order Comment: Speci men Type: BLOOD SPECIMENOrdering Facility: [facility] Address: [address] [place] [address] Performed By: #### 5 7021-8 ####[facility] LABCLIA [id number] [place] [address] Neutrophils (Bld) [#/Vol] 4.40 10*3/uL Normal 1.45-7.50 [facility] Comment on above: Order Comment: Speci men Type: BLOOD SPECIMENOrdering Facility: [facility] Address: [address] [place] [address] Performed By: #### 5 7021-8 ####[facility] LABCLIA [id number] [place] [address] Neutrophils/100 WBC (Bld) 63.2 % Normal [facility] Comment on above: Order Comment: Speci men Type: BLOOD SPECIMENOrdering Facility: [facility] Address: [address] [place] [address] Performed By: #### 5 7021-8 ####[facility] LABCLIA [id number] [place] [address] Nucleated RBC (Bld) [#/Vol] 10*3/uL Normal <0.01 [facility] Comment on above: Order Comment: Speci men Type: BLOOD SPECIMENOrdering Facility: [facility] Address: [address] [place] [address] Performed By: #### 5 7021-8 ####[facility] LABCLIA [id number] [place] [address] Nucleated RBC/100 WBC (Bld) [Ratio] 0.0 /100 WBC Normal [facility] Comment on above: Order Comment: Speci men Type: BLOOD SPECIMENOrdering Facility: [facility] Address: [address] [place] [address] Performed By: #### 5 7021-8 ####[facility] LABCLIA [id number] [place] [address] Platelet mean volume (Bld) [Entitic vol] 11.3 fL Normal 9.0-12.7 [facility] Comment on above: Order Comment: Speci men Type: BLOOD SPECIMENOrdering Facility: [facility] Address: [address] [place] [address] Performed By: #### 5 7021-8 ####[facility] LABCLIA [id number] [place] [address] Platelets (Bld) [#/Vol] 204 10*3/uL Normal 150-400 [facility] Comment on above: Order Comment: Speci men Type: BLOOD SPECIMENOrdering Facility: [facility] Address: [address] [place] [address] Performed By: #### 5 7021-8 ####[facility] LABCLIA [id number] [place] [address] RBC (Bld) [#/Vol] 5.15 10*6/uL Normal 3.90-5.20 [facility] Comment on above: Order Comment: Speci men Type: BLOOD SPECIMENOrdering Facility: [facility] Address: [address] [place] [address] Performed By: #### 5 7021-8 ####[facility] LABIA [id number] [place] [address] WBC (Bld) [#/Vol] 6.97 10*3/uL Normal 3.70-11.00 [facility] Comment on above: Order Comment: Speci men Type: BLOOD SPECIMENOrdering Facility: [facility] Address: [address] [place] [address] Performed By: #### 5 7021-8 ####[facility] LABCLIA [id number] [place] [address] Basophils (Bld) [#/Vol] 0.04 10*3/uL <0.11 k/uL [facility] Basophils/100 WBC (Bld) 0.6 % C [facility] Differential cell count method Nom (Bld) Auto [facility] Eosinophils (Bld) [#/Vol] 0.10 10*3/uL <0.46 k/uL [facility] Eosinophils/100 WBC (Bld) 1.4 % [facility] Erythrocyte distribution width (RBC) [Ratio] 14.7 % 11.5 - 15.0 % [facility] Hematocrit (Bld) [Volume fraction] 43.9 % 36.0 - 46.0 % [facility] Hemoglobin (Bld) [Mass/Vol] 14.7 g/dL 11.5 - 15.5 g/dL [facility] Immature granulocytes (Bld) [#/Vol] <0.10 k/uL [facility] Immature granulocytes/100 WBC (Bld) 0.1 % [facility] Lymphocytes (Bld) [#/Vol] 1.93 10*3/uL 1.00 - 4.00 k/uL [facility] Lymphocytes/100 WBC (Bld) 27.7 % [facility] MCH (RBC) [Entitic mass] 28.5 pg 26.0 - 34.0 pg [facility] MCHC (RBC) [Mass/Vol] 33.5 g/dL 30.5 - 36.0 g/dL [facility] MCV (RBC) [Entitic vol] 85.2 fL 80.0 - 100.0 fL [facility] Monocytes (Bld) [#/Vol] 0.49 10*3/uL <0.87 k/uL [facility] Monocytes/100 WBC (Bld) 7.0 % C [facility] Neutrophils (Bld) [#/Vol] 4.40 10*3/uL 1.45 - 7.50 k/uL [facility] Neutrophils/100 WBC (Bld) 63.2 % [facility] Nucleated RBC (Bld) [#/Vol] <0.01 k/uL [facility] Nucleated RBC/100 WBC (Bld) [Ratio] 0.0 /100 WBC [facility] Platelet mean volume (Bld) [Entitic vol] 11.3 fL 9.0 - 12.7 fL [facility] Platelets (Bld) [#/Vol] 204 10*3/uL 150 - 400 k/uL [facility] RBC (Bld) [#/Vol] 5.15 10*6/uL 3.90 - 5.20 m/uL [facility] WBC (Bld) [#/Vol] 6.97 10*3/uL 3.70 - 11.00 k/uL [facility] CNPNon 11-14-2023 CNPN Telephone (ENDOMN) -- HEIDI JOY ([id number]) 1990 F Date Time Provider Department 11/14/23 ARIANNA LORA ENDOZAKIA During your visit today, we recorded the following information about you: Arianna Lora MD 11/14/2023 7:14 PM Signed Was paged with critical lab 2.3. I called patient, no answer. I left a voice message with lab results and the need to take extra potassium tablets today and repeat potassium tomorrow, she was provided with call back number as well to call with questions. Arianna Lora MD Clinical Fellow PGY-5 Endocrinology and Metabolism [place] Pager:[phone] Allergies As of Date: 11/14/2023 (No Known Allergies) Date Reviewed: 10/23/2023 Reviewed by: Digna Brody RN - Fully Assessed Reason for Visit: Returning Patient's Call [408] Results [95] Primary Visit Diagnosis:Primary hyperaldosteronism (HCC) [E26.09] Order(s):BASIC METABOLIC PANEL [SQBMP] Order #: [id number] FUTURE Prescriptions as of 11/14/2023 - busPIRone [...] Status:Closed by ARIANNA LORA on 11/14/23 Normal [facility] CONFIRM BLOOD TYPEon 024 ABO B Normal [facility] Comment on above: Order Comment: Speci men Type: BLOOD SPECIMENOrdering Facility: [facility] Address: [address] [place] [address] Performed By: #### C ONABO ####CC MAIN BLOOD BANKCLIA [id number] [place] [address] [place] Rh Nom (Bld) Negative Normal [facility] Comment on above: Order Comment: Speci men Type: BLOOD SPECIMENOrdering Facility: [facility] Address: [address] [place] [address] Performed By: #### C ONABO ####CC MAIN BLOOD BANKCLIA [id number] [address] TYPE AND SCREEN,30 DAYon ABO B Normal [facility] Comment on above: Order Comment: Speci men Type: BLOOD SPECIMENOrdering Facility: [facility] Address: [address] [place] [address] Performed By: #### T SCR30 ####CC MAIN BLOOD BANKCLIA [id number] [address] HISTORICAL AB SCR STATUS Negative Normal [facility] Comment on above: Order Comment: Speci men Type: BLOOD SPECIMENOrdering Facility: [facility] Address: [address] [place] [address] Performed By: #### T SCR30 ####CC MAIN BLOOD BANKCLIA [id number] [address] [place] Rh Nom (Bld) Negative Normal [facility] Comment on above: Order Comment: Speci men Type: BLOOD SPECIMENOrdering Facility: 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 Address: [address] [place] [address] Result Comment: The reference interval for serum/plasma [...] 15 ng/dL. Performed By: #### 1 763-2 ####[facility] LABCLIA [id number] [place] [address] [place] Aldosterone [Mass/Vol] 7780.0 ng/dL High 0.0-<35.4 [facility] Comment on above: Order Comment: Peter myles Type: BLOOD SPECIMENOrdering Facility: [facility] Address: [address] [place] [address] Result Comment: The reference interval for serum/plasma [...] 15 ng/dL. Performed By: #### 1 763-2 ####[facility] LABCLIA [id number] [place] [address] [place] Aldosterone [Mass/Vol] 5530.0 ng/dL High 0.0-<35.4 [facility] Comment on above: Order Comment: Peter shar Type: BLOOD SPECIMENOrdering Facility: [facility] Address: [address] [place] [address] Result Comment: The reference interval for serum/plasma [...] 15 ng/dL. Performed By: #### 1 763-2 ####[facility] LABCLIA [id number] [place] [address] [place] Aldosterone [Mass/Vol] 6190.0 ng/dL High 0.0-<35.4 [facility] Comment on above: Order Comment: Peter myles Type: BLOOD SPECIMENOrdering Facility: [facility] Address: [address] [place] [address] Result Comment: The reference interval for serum/plasma [...] 15 ng/dL. Performed By: #### 1 763-2 ####[facility] LABCLIA [id number] [place] [address] [place] Aldosterone [Mass/Vol] 173.0 ng/dL High 0.0-<35.4 [facility] Comment on above: Order Comment: Peter men Type: BLOOD SPECIMENOrdering Facility: [facility] Address: [address] [place] [address] Result Comment: The reference interval for serum/plasma [...] 15 ng/dL. Performed By: #### 1 763-2 ####[facility] LABCLIA [id number] [place] [address] [place] Aldosterone [Mass/Vol] 160.0 ng/dL High 0.0-<35.4 [facility] Comment on above: Order Comment: Speci men Type: TIMED URINE SPECIMEN [facility] Address: [address] [place] [address] Result Comment: The reference interval for serum/plasma [...] ng/dL. Performed By: #### U METAN #### [facility] LAB CLIA [id number] [address] [place] [address] [place] [facility] CLIA [id number] [address] [place] [address] Aldosterone [Mass/Vol] 166.0 ng/dL High 0.0-<35.4 [facility] Comment on above: Order Comment: Speci men Type: BLOOD SPECIMENOrdering Facility: [facility] Address: [address] [place] [address] Result Comment: The reference interval for serum/plasma [...] 15 ng/dL. Performed By: #### 1 763-2 ####[facility] LABCLIA [id number] [address] [place] BRIEF OP NOTon 10-23-2023 BRIEF OP NOT HNO ID: [id number] Author: FERMIN YI MD Service: Interventional Radiology Author Type: Physician Type: Brief Op Note Filed: 10/23/2023 13:55 Note Text: BRIEF OPERATIVE / PROCEDURE NOTE LOG ID: [id number] SURGERY/PROCEDURE DATE: 10/23/2023 INCISION/PROCEDURE START TIME: 1:21 PM INCISION CLOSE/PROCEDURE END TIME: SURGEON(S)/PROCEDURALIST(S ) AND NOZZLE AND SLEEVE WORKER(S): Surgeon(s) and Role: * Fermin Yi MD [...] October 23, 2023 TIME: 1:46 PM Normal [facility] Cortis SerPl-mCncon 10-23-19 24 Cortisol [Mass/Vol] 17.4 ug/dL Normal 4.8-19.5 [facility] Comment on above: Order Comment: Speci men Type: BLOOD SPECIMENOrdering Facility: [facility] Address: [address] [place] [address] Result Comment: Prov ided reference range is from 6-10 AM sample collection time. Cortisol Reference Range: 6-10 AM = 4.8-19.5 ug/dL, 4-8 PM = 2.5-11.9 ug/dL Performed By: #### 2 143-6 ####[facility] LABCLIA [id number] [place] [address] [place] Cortisol [Mass/Vol] 197.4 ug/dL High 4.8-19.5 [facility] Comment on above: Order Comment: Speci men Type: BLOOD SPECIMENOrdering Facility: [facility] Address: [address] [place] [address] Result Comment: Prov ided reference range is from 6-10 AM sample collection time. Cortisol Reference Range: 6-10 AM = 4.8-19.5 ug/dL, 4-8 PM = 2.5-11.9 ug/dL Performed By: #### 2 143-6 ####[facility] LABCLIA [id number] [place] [address] [place] Cortisol [Mass/Vol] 149.2 ug/dL High 4.8-19.5 [facility] Comment on above: Order Comment: Speci men Type: TIMED URINE SPECIMEN [facility] Address: [address] [place] [address] Result Comment: Prov ided reference range is from 6-10 AM sample collection time. Cortisol Reference Range: 6-10 AM = 4.8-19.5 ug/dL, 4-8 PM = 2.5-11.9 ug/dL Performed By: #### U METAN #### [facility] CLIA [id number] [address] [place] [address] [place] [facility] CLIA [id number] [address] [place] [address] Cortisol [Mass/Vol] 163.9 ug/dL High 4.8-19.5 [facility] Comment on above: Order Comment: Speci men Type: BLOOD SPECIMENOrdering Facility: [facility] Address: [address] [place] [address] Result Comment: Prov ided reference range is from 6-10 AM sample collection time. Cortisol Reference Range: 6-10 AM = 4.8-19.5 ug/dL, 4-8 PM = 2.5-11.9 ug/dL Performed By: #### 2 143-6 ####[facility] LABCLIA [id number] [place] [address] [place] Cortisol [Mass/Vol] 152.5 ug/dL High 4.8-19.5 [facility] Comment on above: Order Comment: Speci men Type: BLOOD SPECIMENOrdering Facility: [facility] Address: [address] [place] [address] Result Comment: Prov ided reference range is from 6-10 AM sample collection time. Cortisol Reference Range: 6-10 AM = 4.8-19.5 ug/dL, 4-8 PM = 2.5-11.9 ug/dL Performed By: #### 2 143-6 ####[facility] LABCLIA [id number] [place] [address] [place] Cortisol [Mass/Vol] 150.7 ug/dL High 4.8-19.5 [facility] Comment on above: Order Comment: Speci men Type: BLOOD SPECIMENOrdering Facility: [facility] Address: [address] [place] [address] Result Comment: Prov ided reference range is from 6-10 AM sample collection time. Cortisol Reference Range: 6-10 AM = 4.8-19.5 ug/dL, 4-8 PM = 2.5-11.9 ug/dL Performed By: #### 2 143-6 ####[facility] LABCLIA [id number] [place] [address] [place] Cortisol [Mass/Vol] 158.4 ug/dL High 4.8-19.5 [facility] Comment on above: Order Comment: Speci men Type: TIMED URINE SPECIMEN [facility] Address: [address] [place] [address] Result Comment: Prov ided reference range is from 6-10 AM sample collection time. Cortisol Reference Range: 6-10 AM = 4.8-19.5 ug/dL, 4-8 PM = 2.5-11.9 ug/dL Performed By: #### U METAN #### [facility] CLIA [id number] [address] [place] [id number] [place] [facility] CLIA [id number] [address] [place] [address] HISTORY PHYSICALon HISTORY PHYSICAL HNO ID: [id number] Author: FERMIN YI MD Service: Interventional Radiology [...] SELECTIVE ORGAN BLOOD SAMPLING (N/A) - AVS (RG) SFERRI C RADIOLOGY ORDER PLACED: PAST ANESTHESIA [...] October 23, 2023 TIME: 12:09 PM Normal [facility] IR VENOUS SAMPLINGon 024 IR VENOUS SAMPLING * * *Final Report* * * DATE OF EXAM: Oct 23 2023 1:50PM [facility] 0820 - IR VENOUS SAMPLING / [...] ultrasound guidance using micropuncture technique. A 6 Kyrgyz 45 cm sheath was placed. Through this, a 5 Kyrgyz catheter (RG2) was used to locate the [...] 1345 Infr (more content not included)... Normal [facility] NURSING PROGon 10-23-2023 NURSING PROG HNO ID: [id number] Author: MUSA HERNANDEZ RN Service: Nursing Author Type: Registered Nurse Type: Nursing Progress Note Filed: 10/24/2023 08:11 Note Text: Attempted post procedure phone call. Left VM for patient to return call to [phone] with any questions/concerns. Normal [facility] PT EDon 10-23-2023 PT ED HNO ID: [id number] Author: TEAGAN NAYAK RN Service: Nursing Author [...] REFERRAL (RECOMMENDATION): None Electronically Signed By: Teagan Nayak RN In Department: [facility] [id number] Normal [facility] CBC W Auto Differential pane l (Bld)on 10-22-2023 Basophils (Bld) [#/Vol] 0.04 10*3/uL Normal <0.11 [facility] Comment on above: Order Comment: Speci men Type: TIMED URINE SPECIMEN [facility]ing Facility: [facility] Address: [address] [place] [address] Performed By: #### U METAN #### [facility] CLIA [id number] [address] [place] [address] [facility] CLIA [id number] [address] [place] [address] 49320 Basophils/100 WBC (Bld) 0.5 % Normal [facility] Comment on above: Order Comment: Speci men Type: TIMED URINE SPECIMEN [facility]ing Facility: [facility] Address: [address] [place] [address] Performed By: #### U METAN #### [facility] CLIA [id number] [address] [place], [place] [address] [facility] CLIA [id number] [address] [place] [address] 57717 Differential cell count method Nom (Bld) Auto Normal [facility] Comment on above: Order Comment: Speci men Type: TIMED URINE SPECIMEN [facility] Facility: [facility] Address: [address] [place] [address] Performed By: #### U METAN #### [facility] CLIA [id number] [address] [place] [address] LAB CLIA [id number] [address] [place] [address] 66742 Eosinophils (Bld) [#/Vol] 0.22 10*3/uL Normal <0.46 [facility] Comment on above: Order Comment: Speci men Type: TIMED URINE SPECIMEN [facility] Facility: [facility] Address: [address] [place] [address] Performed By: #### U METAN #### [facility] CLIA [id number] [address] [place], [place] [address] [facility] CLIA [id number] [address] [place] [address] 17965 Eosinophils/100 WBC (Bld) 2.9 % Normal [facility] Comment on above: Order Comment: Speci men Type: TIMED URINE SPECIMEN [facility]ing Facility: [facility] Address: [address] [place], [place] [address] Performed By: #### U METAN #### [facility] CLIA [id number] [address] [place] [address] [facility] CLIA [id number] [address] [place] [address] 96551 Erythrocyte distribution width (RBC) [Ratio] 15.1 % High 11.5-15.0 [facility] Comment on above: Order Comment: Speci men Type: TIMED URINE SPECIMEN [facility]ing Facility: [facility] Address: [address] [place], [place] [address] Performed By: #### U METAN #### [facility] CLIA [id number] [address] [place], [place] [address] [facility] CLIA [id number] [address] [place] [address] 10687 Hematocrit (Bld) [Volume fraction] 41.0 % Normal 36.0-46.0 [facility] Comment on above: Order Comment: Speci men Type: TIMED URINE SPECIMEN [facility] Facility: [facility] Address: [address] [id number] Performed By: #### U METAN #### [facility] CLIA [id number] [address] [place] [address] [facility] CLIA [id number] [address] [place] [address] 32214 Hemoglobin (Bld) [Mass/Vol] 13.4 g/dL Normal 11.5-15.5 [facility] Comment on above: Order Comment: Speci men Type: TIMED URINE SPECIMEN [facility]ing Facility: [facility] Address: [address] [place] [address] Performed By: #### U METAN #### [facility] CLIA [id number] [address] [place] [address] [facility] CLIA [id number] [address] [place] [address] 60345 Immature granulocytes (Bld) [#/Vol] 10*3/uL Normal <0.10 [facility] Comment on above: Order Comment: Speci men Type: TIMED URINE SPECIMEN [facility] Facility: [facility] Address: [address] [place] [address] Performed By: #### U METAN #### [facility] CLIA [id number] [address] [place] [address] LAB CLIA [id number] [address] [place] [address] 62904 Immature granulocytes/100 WBC (Bld) 0.3 % Normal [facility] Comment on above: Order Comment: Speci men Type: TIMED URINE SPECIMEN [facility] Facility: [facility] Address: [address] [place] [address] Performed By: #### U METAN #### [facility] CLIA [id number] [address] [place] [address] LAB CLIA [id number] [address] [place] [address] 20150 Lymphocytes (Bld) [#/Vol] 2.51 10*3/uL Normal 1.00-4.00 [facility] Comment on above: Order Comment: Speci men Type: TIMED URINE SPECIMEN [facility] Facility: [facility] Address: [address] [place] [address] Performed By: #### U METAN #### [facility] CLIA [id number] [address] [place], [place] [address] [facility] CLIA [id number] [address] [place] [address] 83107 Lymphocytes/100 WBC (Bld) 33.2 % Normal [facility] Comment on above: Order Comment: Speci men Type: TIMED URINE SPECIMEN [facility]ing Facility: [facility] Address: [address] [place] [address] Performed By: #### U METAN #### [facility] CLIA [id number] [address] [place] [address] LAB CLIA [id number] [address] [place] [address] 71881 MCH (RBC) [Entitic mass] 28.9 pg Normal 26.0-34.0 [facility] Comment on above: Order Comment: Speci men Type: TIMED URINE SPECIMEN [facility] Facility: [facility] Address: [address] [place] [address] Performed By: #### U METAN #### [facility] CLIA [id number] [address] [place] [address] LAB CLIA [id number] [address] [place] [address] 89274 MCHC (RBC) [Mass/Vol] 32.7 g/dL Normal 30.5-36.0 [facility] Comment on above: Order Comment: Speci men Type: TIMED URINE SPECIMEN [facility] Facility: [facility] Address: [address] [place] [address] Performed By: #### U METAN #### [facility] CLIA [id number] [address] [place] [address] LAB CLIA [id number] [address] [place] [address] 21860 MCV (RBC) [Entitic vol] 88.4 fL Normal 80.0-100.0 [facility] Comment on above: Order Comment: Speci men Type: TIMED URINE SPECIMEN [facility] Facility: [facility] Address: [address] [place] [address] Performed By: #### U METAN #### [facility] CLIA [id number] [address] [place] [address] LAB CLIA [id number] [address] [place] [address] 16329 Monocytes (Bld) [#/Vol] 0.51 10*3/uL Normal <0.87 [facility] Comment on above: Order Comment: Speci men Type: TIMED URINE SPECIMEN [facility] Facility: [facility] Address: [address] [place] [address] Performed By: #### U METAN #### [facility] CLIA [id number] [address] [place], [place] [address] [facility] CLIA [id number] [address] [place] [address] 87466 Monocytes/100 WBC (Bld) 6.7 % Normal [facility] Comment on above: Order Comment: Speci men Type: TIMED URINE SPECIMEN [facility]ing Facility: [facility] Address: [address] [place] [address] Performed By: #### U METAN #### [facility] CLIA [id number] [address] [place] [address] LAB CLIA [id number] [address] [place] [address] 06088 Neutrophils (Bld) [#/Vol] 4.26 10*3/uL Normal 1.45-7.50 [facility] Comment on above: Order Comment: Speci men Type: TIMED URINE SPECIMEN [facility]ing Facility: [facility] Address: [address] [place] [address] Performed By: #### U METAN #### [facility] CLIA [id number] [address] [place] [address] LAB CLIA [id number] [address] [place] [address] 72631 Neutrophils/100 WBC (Bld) 56.4 % Normal [facility] Comment on above: Order Comment: Speci men Type: TIMED URINE SPECIMEN [facility] Facility: [facility] Address: [address] [place] [address] Performed By: #### U METAN #### [facility] CLIA [id number] [address] [place], [place] [address]AST [facility] CLIA [id number] [address] [place] [address] Nucleated RBC (Bld) [#/Vol] 10*3/uL Normal <0.01 [facility] Comment on above: Order Comment: Speci men Type: TIMED URINE SPECIMEN [facility]ing Facility: [facility] Address: [address] [place] [address] Performed By: #### U METAN #### [facility] CLIA [id number] [address] [place], [place] [address] [facility] CLIA [id number] [address] [place] [address] 17970 Nucleated RBC/100 WBC (Bld) [Ratio] 0.0 /100 WBC Normal [facility] Comment on above: Order Comment: Speci men Type: TIMED URINE SPECIMEN [facility]ing Facility: [facility] Address: [address] [place] [address] Performed By: #### U METAN #### [facility] CLIA [id number] [address] [place], [place] [address] [facility] CLIA [id number] [address] [place] [address] 91314 Platelet mean volume (Bld) [Entitic vol] 11.5 fL Normal 9.0-12.7 [facility] Comment on above: Order Comment: Speci men Type: TIMED URINE SPECIMEN Ordering Facility: [facility] Address: [address] [place] [address] Performed By: #### U METAN #### [facility] CLIA [id number] [address] [place] [address] LAB CLIA [id number] [address] [place] [address] 05658 Platelets (Bld) [#/Vol] 198 10*3/uL Normal 150-400 [facility] Comment on above: Order Comment: Speci men Type: TIMED URINE SPECIMEN Ordering Facility: [facility] Address: [address] [place] [address] Performed By: #### U METAN #### [facility] CLIA [id number] [address] [place] [address] LAB CLIA [id number] [address] [place] [address] 46962 RBC (Bld) [#/Vol] 4.64 10*6/uL Normal 3.90-5.20 [facility] Comment on above: Order Comment: Speci men Type: TIMED URINE SPECIMEN [facility]ing Facility: [facility] Address: [address] [place] [address] Performed By: #### U METAN #### [facility] CLIA [id number] [address] [place] [address] LAB CLIA [id number] [address] [place] [address] 32954 WBC (Bld) [#/Vol] 7.56 10*3/uL Normal 3.70-11.00 [facility] Comment on above: Order Comment: Speci men Type: TIMED URINE SPECIMEN [facility] Facility: [facility] Address: [address] [place] [address] Performed By: #### U METAN #### [facility] CLIA [id number] [address] [place] [address] LAB CLIA [id number] [address] [place] [address] 46651 Comprehensive metabolic 2000 panelon 10-22-2023 Albumin [Mass/Vol] 4.0 g/dL Normal 3.9-4.9 [facility] Comment on above: Order Comment: Speci men Type: TIMED URINE SPECIMEN [facility]ing Facility: [facility] Address: [address] [place] [address] Performed By: #### U METAN #### [facility] CLIA [id number] [address] [place] [address] [facility] CLIA [id number] [address] [place] [address] ALP [Catalytic activity/Vol] 139 U/L High 34-123 [facility] Comment on above: Order Comment: Speci men Type: TIMED URINE SPECIMEN [facility]ing Facility: [facility] Address: [address] [place], [place] [address] Performed By: #### U METAN #### [facility] CLIA [id number] [address] [place] [address] 32413 [facility] CLIA [id number] [address] [place] [address] 43296 ALT [Catalytic activity/Vol] 10 U/L Normal 7-38 [facility] Comment on above: Order Comment: Speci men Type: TIMED URINE SPECIMEN [facility]ing Facility: [facility] Address: [address] [place] [address] Performed By: #### U METAN #### [facility] CLIA [id number] [address] [place], [place] [address] [facility] CLIA [id number] [address] [place] [address] 99274 Anion gap [Moles/Vol] 3 mmol/L Low 9-18 [facility] Comment on above: Order Comment: Speci men Type: TIMED URINE SPECIMEN [facility]ing Facility: [facility] Address: [address] [place] [address] Performed By: #### U METAN #### [facility] CLIA [id number] [address] [place] [address] 26638 [facility] CLIA [id number] [address] [place] [address] 76213 AST [Catalytic activity/Vol] 14 U/L Normal 13-35 [facility] Comment on above: Order Comment: Speci men Type: TIMED URINE SPECIMEN [facility] Facility: [facility] Address: [address] [place] [address] Performed By: #### U METAN #### [facility] CLIA [id number] [address] [place], [place] [address] [facility] CLIA [id number] [address] [place] [address] 32891 Bilirubin [Mass/Vol] 0.4 mg/dL Normal 0.2-1.3 [facility] Comment on above: Order Comment: Speci men Type: TIMED URINE SPECIMEN [facility]ing Facility: [facility] Address: [address] [place], [place] [address] Performed By: #### U METAN #### [facility] CLIA [id number] [address] [place], [place] [address] [facility] CLIA [id number] [address] [place] [address] 04938 Calcium [Mass/Vol] 8.9 mg/dL Normal 8.5-10.2 [facility] Comment on above: Order Comment: Speci men Type: TIMED URINE SPECIMEN [facility]ing Facility: [facility] Address: [address] [place], [place] [address] Performed By: #### U METAN #### [facility] CLIA [id number] [address] [place] [address] LAB CLIA [id number] [address] [place] [address] 68254 Chloride [Moles/Vol] 110 mmol/L High 97-105 [facility] Comment on above: Order Comment: Speci men Type: TIMED URINE SPECIMEN [facility]ing Facility: [facility] Address: [address] [place] [address] Performed By: #### U METAN #### [facility] CLIA [id number] [address] [place], [place] [address] [facility] CLIA [id number] [address] [place] [address] 92954 CO2 [Moles/Vol] 30 mmol/L Normal 22-30 [facility] Comment on above: Order Comment: Speci men Type: TIMED URINE SPECIMEN [facility] Facility: [facility] Address: [address] [place] [address] Performed By: #### U METAN #### [facility] CLIA [id number] [address] [place] [address] LAB CLIA [id number] [address] [place] [address] 78677 Creatinine [Mass/Vol] 0.80 mg/dL Normal 0.58-0.96 [facility] Comment on above: Order Comment: Speci men Type: TIMED URINE SPECIMEN [facility] Facility[facility] Address: [address] [place] [address] Performed By: #### U METAN #### [facility] CLIA [id number] [address] [place] [address] LAB CLIA [id number] [address] [place], [place] [id number] Creatinine and Glomerular filtration rate.predicted panel (S/P/Bld) 101 mL/min/1.73m??? Normal >=60 [facility] Comment on above: Order Comment: Speci men Type: TIMED URINE SPECIMEN [facility] Facility: [facility] Address: [address] [place] [address] Result Comment: Rachel mated Glomerular Filtration Rate [...] GFR. Performed By: #### U METAN #### [facility] CLIA [id number] [address] [place] [address] LAB CLIA [id number] [address] [place] [address] 45677 Glucose [Mass/Vol] 87 mg/dL Normal 74-99 [facility] Comment on above: Order Comment: Speci men Type: TIMED URINE SPECIMEN [facility] Facility: [facility] Address: [address] [place] [address] Result Comment: The [place] [employer] (ADA) provides guidance for cutoff [...] Standards of Medical Care in Diabetes 2016, [place] [employer]. Diabetes Care. 2016.39(Suppl 1). Performed By: #### U METAN #### [facility] CLIA [id number] [address] [place] [address] [facility] CLIA [id number] [address] [place] [address] 54673 Potassium [Moles/Vol] 2.8 mmol/L Low 3.7-5.1 [facility] Comment on above: Order Comment: Speci men Type: TIMED URINE SPECIMEN [facility] Facility: [facility] Address: [address] [place] [address] Performed By: #### U METAN #### [facility] CLIA [id number] [address] [place] [address] LAB CLIA [id number] [address] [place] [address] 58280 Protein [Mass/Vol] 6.2 g/dL Low 6.3-8.0 [facility] Comment on above: Order Comment: Speci men Type: TIMED URINE SPECIMEN [facility] Facility: [facility] Address: [address] [place] [address] Performed By: #### U METAN #### [facility] CLIA [id number] [address] [place] [address] LAB CLIA [id number] [address] [place] [address] 23671 Sodium [Moles/Vol] 143 mmol/L Normal 136-144 [facility] Comment on above: Order Comment: Speci men Type: TIMED URINE SPECIMEN [facility] Facility: [facility] Address: [address] [place] [address] Performed By: #### U METAN #### [facility] CLIA [id number] [address] [place] [address] LAB CLIA [id number] [address] [place] [address] Urea nitrogen [Mass/Vol] 23 mg/dL High 7-21 [facility] Comment on above: Order Comment: Speci men Type: TIMED URINE SPECIMEN [facility] Facility[facility] Address: [address] [place] [address] Performed By: #### U METAN #### [facility] CLIA [id number] [address] [place] [address] LAB CLIA [id number] [address] [place], [place] [id number] PT panel Coag (PPP)on 2023 INR Coag (PPP) [Relative time] 1.0 {INR} Normal 0.9-1.3 [facility] Comment on above: Order Comment: Speci men Type: BLOOD SPECIMENOrdering Facility: [facility] Address: [address] [place] [address] Result Comment: Trice min K Antagonist (VKA) Therapeutic Range: INR 2 to 3 (Target INR of 2.5) Note: For patients treated with VKA drugs, such as warfarin, the [place] [employer] 2012 Guideline recommends [...] to 3.5 (target INR of 3). Gracie GH, et al. Chest 2012, 141:7S-47S Benitez RA, et al. [facility] 2017, 70: 252-289 Performed By: #### 3 4528-0 ####[facility] [id number] [place] [address] [place] PT Coag (PPP) [Time] 10.2 s Normal 9.7-13.0 [facility] Comment on above: Order Comment: Speci men Type: BLOOD SPECIMENOrdering Facility: [facility] Address: [address] [place] [address] Performed By: #### 3 4528-0 ####[facility] [id number] [address] OF [place] NURSING PROGon 10-17-2023 NURSING PROG HNO ID: [id number] Author: MUSA HERNANDEZ RN Service: Nursing Author Type: Registered Nurse Type: Nursing Progress Note Filed: 10/17/2023 15:23 Note Text: Pre-procedure instructions: Contacted Heidi and klaudia apptClovis for AVS scheduled on Saturday, 10/22, at [facility]. I will wait while you get [...] be drawn prior to 10/22 at any [facility]. Arrival: Please bring your Photo ID and Insurance Card. A general consent may need to be signed. Arrival at 10:30 AM [facility] and check in for your procedure. Mental Retardation Aide/Transportation: How will you be arriving for your procedure? Private car. If you will be arriving at [facility] via ambulance or public transportation, please call to discuss. You will need a responsible adult to accompany you to and from the procedure. Your goat driver is required to stay with you until you are taken into the Procedure room. If you develop any of the following symptoms before your procedure, please call [phone]. Chills, joint pain, rash, sore throat, cough, [...] discuss. Written instructions provided to patient via [email or web address] If you have any questions please call [phone] Normal [facility] POTASSIUM BLDon 10-11-2023 Potassium [Moles/Vol] 2.6 mmol/L Low 3.7-5.1 [facility] Comment on above: Order Comment: Speci men Type: BLOOD SPECIMENOrdering Facility: [facility] Address: [address] [place] [address] Performed By: #### K 1 ####[facility] LABCLIA [id number] [place] [address] ALL POTASSIUMon 09-12-2023 Interpretation and review of laboratory results Abnormal [facility] Potassium [Moles/Vol] 2.7 mmol/L Critically low 3.5 - 5.1 mmol/L [facility] Comment on above: RESULTS CALLED TO [facility] Aldost 24h Ur-mRateon 2023 Aldosterone (24H U) [Mass/Time] 63.6 ug/24hr High 3.0-<28.1 [facility] Comment on above: Order Comment: Speci men Type: TIMED URINE SPECIMEN Ordering Facility: [facility] Address: [address] [place] [address] Performed By: #### U METAN #### [facility] [facility] CLIA [id number] [address] [place] [address] LAB CLIA [id number] [address] [place] [address] CATECHOLAMINES FRACTIONATED, URINE FREEon 09-10-2023 CATECHOLAMINES INTERPRETATION See Note Normal [facility] Comment on above: Order Comment: Speci men Type: TIMED URINE SPECIMEN [facility] Facility[facility] Address: [address] [place] [address] Result Comment: TEST INFORMATION: Catecholamines Fractionated, Urine [...] reference intervals for this test in the tribr Laboratory Test Directory (Tictail). This test was developed and its performance characteristics determined by [employer]. It has not been cleared or approved by the US Food and Drug Administration. This test was performed in a CLIA certified laboratory and is intended for clinical purposes. Performed By: #### U METAN #### [facility] CLIA [id number] [address] [place] [address] LAB CLIA [id number] [address] [place] [address] CREATININE UR, PER 24H 1134 mg/d Normal 700-1600 [facility] Comment on above: Order Comment: Speci men Type: TIMED URINE SPECIMEN [facility]ing Facility: [facility] Address: [address] [place] [address] Result Comment: Perf ormed By: [facility] [address] [place] [address] Internet Systems Administrator: Adis Casillas MD, PhD CLIA Number: [id number] Performed By: #### U METAN #### [facility] CLIA [id number] [address] [place] [address] LAB CLIA [id number] [address] [place] [address] Order Comment: Speci men Type: TIMED URINE SPECIMENOrdering Facility: [facility] Address: [address] [place] [address] Performed By: #### U FRCRT ####[facility] [id number] [place] [address] CREATININE UR, PER VOLUME 54 mg/dL Normal [facility] Comment on above: Order Comment: Speci men Type: TIMED URINE SPECIMEN [facility] Address: [address] [place] [address] Performed By: #### U METAN #### [facility] CLIA [id number] [address] [place] [address] LAB CLIA [id number] [address] [place] [address] Order Comment: Speci men Type: TIMED URINE SPECIMENOrdering Facility: [facility] Address: [address] [place] [address] Performed By: #### U FRCRT ####[facility] LABORATORIESCLIA [id number] [place] [address] DOPAMINE, UR 24HR 422 ug/d Normal 71-485 [facility] Comment on above: Order Comment: Speci men Type: TIMED URINE SPECIMEN [facility] Address: [address] [place] [address] Result Comment: REFE RENCE INTERVAL: Dopamine, Urine - ug/d Access complete set of age- and/or gender-specific reference intervals for this test in the tribr Laboratory Test Directory (Tictail). Performed By: #### U METAN #### [facility] CLIA [id number] [address] [place] [address] LAB CLIA [id number] [address] [place] [address] DOPAMINE, UR PER VOL 201 ug/L Normal [facility] Comment on above: Order Comment: Speci men Type: TIMED URINE SPECIMEN [facility] Facility[facility] Address: [address] [place] [address] Performed By: #### U METAN #### [facility] CLIA [id number] [address] [place] [address] LAB CLIA [id number] [address] [place], [place] [id number] DOPAMINE, UR RATIO TO SALT GRINDER 372 ug/g SALT GRINDER High 0-250 [facility] Comment on above: Order Comment: Speci men Type: TIMED URINE SPECIMEN [facility] Address: [address] [place] [address] Performed By: #### U METAN #### [facility] CLIA [id number] [address] [place] [address] LAB CLIA [id number] [address] [place], [place] [id number] EPINEPHRINE, UR 24HR 4 ug/d Normal 1-14 [facility] Comment on above: Order Comment: Speci men Type: TIMED URINE SPECIMEN [facility] Facility[facility] Address: [address] [place] [address] Result Comment: REFE RENCE INTERVAL: Epinephrine, Urine - ug/d Access complete set of age- and/or gender-specific reference intervals for this test in the tribr Laboratory Test Directory (Tictail). Performed By: #### U METAN #### [facility] CLIA [id number] [address] [place], [place] [address] [facility] CLIA [id number] [address] [place] [address] EPINEPHRINE, UR PER VOL 2 ug/L Normal [facility] Comment on above: Order Comment: Speci men Type: TIMED URINE SPECIMEN [facility] Address: [address] [place] [address] Performed By: #### U METAN #### [facility] CLIA [id number] [address] [place] [address] LAB CLIA [id number] [address] [place], [place] [address] EPINEPHRINE, UR RATIO TO SALT GRINDER 4 ug/g SALT GRINDER Normal 0-20 [facility] Comment on above: Order Comment: Speci men Type: TIMED URINE SPECIMEN [facility] Address: [address] [place] [address] Performed By: #### U METAN #### [facility] CLIA [id number] [address] [place] [address] LAB CLIA [id number] [address] [place], [place] [id number] HOURS COLLECTED 24 hr Normal [facility] Comment on above: Order Comment: Speci men Type: TIMED URINE SPECIMEN [facility] Address: [address] [place] [address] Result Comment: Per 24h calculations are provided to aid interpretation for collections with a duration of 24 hours and an average daily urine volume. For specimens with notable deviations in collection time or volume, ratios of analytes to a corresponding urine creatinine concentration may assist in result interpretation. Performed By: #### U METAN #### [facility] CLIA [id number] [address] [place] [address] LAB CLIA [id number] [address] [place], [place] [id number] Order Comment: Speci men Type: TIMED URINE SPECIMENOrdering Facility: [facility] Address: [address] [place] [address] Performed By: #### U FRCRT ####[facility] LABORATORIESCLIA [id number] [place] [address] NOREPINEPHRINE, UR 24HR 21 ug/d Normal 14-120 [facility] Comment on above: Order Comment: Speci men Type: TIMED URINE SPECIMEN [facility] Address: [address] [place] [address] Result Comment: REFE RENCE INTERVAL: Norepinephrine, Urine - ug/d Access complete set of age- and/or gender-specific reference intervals for this test in the [facility] Laboratory Test Directory (Tictail). Performed By: #### U METAN #### [facility] CLIA [id number] [address] [place] [address] LAB CLIA [id number] [address] [place] [address] NOREPINEPHRINE, UR PER VOL 10 ug/L Normal [facility] Comment on above: Order Comment: Speci men Type: TIMED URINE SPECIMEN [facility] Address: [address] [place] [address] Performed By: #### U METAN #### [facility] CLIA [id number] [address] [place] [address] LAB CLIA [id number] [address] [place], [place] [id number] NOREPINEPHRINE, UR RATIO TO SALT GRINDER 19 ug/g SALT GRINDER Normal 0-45 [facility] Comment on above: Order Comment: Speci men Type: TIMED URINE SPECIMEN [facility] Address: [address] [place] [address] Performed By: #### U METAN #### [facility] CLIA [id number] [address] [place] [address] LAB CLIA [id number] [address] [place], [place] [id number] TOTAL VOLUME 2100 mL Normal [facility] Comment on above: Order Comment: Speci men Type: TIMED URINE SPECIMEN [facility] Address: [address] [place] [address] Performed By: #### U METAN #### [facility] CLIA [id number] [address] [place] [address] [id number] LAB CLIA [id number] [address] [place], [place] [address] Order Comment: Speci men Type: TIMED URINE SPECIMENOrdering Facility: [facility] Address: [address] [place] [address] Performed By: #### U FRCRT ####[facility]ORATORIESIA [id number] [place] [address] CREATININE BLDon 09-10-2023 Creatinine [Mass/Vol] 0.90 mg/dL Normal 0.58-0.96 [facility] Comment on above: Order Comment: Speci men Type: BLOOD SPECIMENOrdering Facility: [facility] Address: [address] [place] [address] Performed By: #### C RET1 ####[facility] LABCLIA [id number] [place] [address] Creatinine and Glomerular filtration rate.predicted panel (S/P/Bld) 87 mL/min/1.73m??? Normal >=60 [facility] Comment on above: Order Comment: Speci men Type: BLOOD SPECIMENOrdering Facility: [facility] Address: [address] [place] [address] Result Comment: Rachel mated Glomerular Filtration Rate [...] actual GFR. Performed By: #### C RET1 ####[facility] LABCLIA [id number] [place] [address] CREATININE CLEARANCE, UR 24H Diaz 09-10-2023 Creatinine (24H U) [Mass/Time] 1.100 g/24 hr Normal 0.800-1.80 0 [facility] Comment on above: Order Comment: Speci men Type: URINE SPECIMENOrdering Facility: [facility] Address: [address] [place] [address] Performed By: #### L [id number] ####[facility] LABCLIA [id number] [address] LABCLIA [id number] [place] [address] Creatinine renal clearance (24H U+S/P) [Vol/Time] 65.9 mL/min Low 75.0-115.0 [facility] Comment on above: Order Comment: Speci men Type: URINE SPECIMENOrdering Facility: [facility] Address: [address] [place] [address] Result Comment: Resu lt corrected for standard body surface area. Performed By: #### L [id number] ####[facility] LABCLIA [id number] [address] LABCLIA [id number] [place] [address] METANEPHRINES 24H URon 09-10 Metanephrines (24H U) [Mass/Time] 246 ug/24 hr Normal 140-785 [facility] Comment on above: Order Comment: Speci men Type: TIMED URINE SPECIMEN [facility] Address: [address] [place] [address] Result Comment: Test performed at [facility] [place], [place] Disregard [facility] reference range. Smaller increases in [...] reference intervals for this test in the tribr Laboratory Test Directory (Tictail). This test was developed and its performance characteristics determined by the [employer]. It has not been cleared or approved by the US Food and Drug Administration. This test was performed in a CLIA certified laboratory and is intended for clinical purposes. Performed By: #### U METAN #### [facility] CLIA [id number] [address] [place] [address] LAB CLIA [id number] [address] [place] [address] NORMETANEPHRINES, UR 141 ug/24 hr Normal 88-444 [facility] Comment on above: Order Comment: Speci men Type: TIMED URINE SPECIMEN [facility] Address: [address] [place] [address] Performed By: #### U METAN #### [facility] CLIA [id number] [address] [place] [address] LAB CLIA [id number] [address] [place], [place] [id number] PERIOD (HRS) 24 hr Normal [facility] Comment on above: Order Comment: Speci men Type: TIMED URINE SPECIMEN [facility] Address: [address] [place] [address] Performed By: #### U METAN #### [facility] CLIA [id number] [address] [place] [address] LAB CLIA [id number] [address] [place], [place] [id number] Order Comment: Speci men Type: URINE SPECIMENOrdering Facility: [facility] Address: [address] [place] [address] Performed By: #### L [id number] ####[facility] LABCLIA [id number] [address] LABCLIA [id number] [place] [id number] Specimen volume (24H U) 2.1 L Normal [facility] Comment on above: Order Comment: Speci men Type: TIMED URINE SPECIMEN [facility] Address: [address] [place] [address] Performed By: #### U METAN #### [facility] CLIA [id number] [address] [place] [address] LAB CLIA [id number] [address] [place] [address] Order Comment: Speci men Type: URINE SPECIMENOrdering Facility: [facility] Address: [address] [place] [address] Performed By: #### L [id number] ####[facility] LABCLIA [id number] [address] LABCLIA [id number] [place] [id number] URINE FREE CORTISOL BY LC-MS /MSon 09-10-2023 CORTISOL UG/G SALT GRINDER, UR (UFRCRT) 16.94 ug/g SALT GRINDER Normal [facility] Comment on above: Order Comment: Speci men Type: TIMED URINE SPECIMENOrdering Facility: 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 installer Female Prepubertal: Less than 25 ug/g solar hot water installer 18 years and older: Less than 24 ug/g solar hot water installer : Less than 59 ug/g solar hot water installer Male Prepubertal: Less than 25 ug/g solar hot water installer 18 years and older: Less than 32 ug/g solar hot water installer Performed By: #### U FRCRT ####[facility] LABORATORIESCLIA [id number] [place] [address] FREE CORTISOL UG/DAY, URINE 19.2 ug/d Normal <=45.0 [facility] Comment on above: Order Comment: Speci men Type: TIMED URINE SPECIMENOrdering Facility: [facility] Address: [address] [place] [address] Performed By: #### U FRCRT ####[facility] LABORATORIESCLIA [id number] [place] [address] FREE CORTISOL UG/L, URINE 9.15 ug/L Normal [facility] Comment on above: Order Comment: Speci men Type: TIMED URINE SPECIMENOrdering Facility: [facility] Address: [address] [place] [address] Performed By: #### U FRCRT ####[facility] [id number] [place] [address] UR MER FREE INTERP See Note [facility] Comment on above: Order Comment: Speci men Type: TIMED URINE SPECIMENOrdering Facility: [facility] Address: [address] [place] [address] Result Comment: INTE RPRETIVE INFORMATION: Cortisol Urine Free by LC-MS/MS Access complete set of age- and/or gender-specific reference intervals for this test in the tribr Laboratory Test Directory ([employer]). This test was developed and its performance characteristics determined by [employer]. It has not been cleared or approved by the US Food and Drug Administration. This test was performed in a CLIA certified laboratory and is intended for clinical purposes. Performed By: [facility] [address] [place] [address] Internet Systems Administrator: Adis Casillas MD, PhD CLIA Number: [id number] Performed By: #### U FRCRT ####[facility]ENTER[facility]IA [id number] [place] [address] [facility] CORTIS P DEX SERPL-MCNCo n 09-06-2023 [facility] CORTIS P DEX SERPL-MCNC 0.9 ug/dL NINF - 1.8 ug/dL [facility] Comment on above: After overnight 1 mg dexamethasone, an mortgage branch manager cortisol of <1.8 ug/dL may indicate an adequate cortisol suppression. This result should be interpreted within the clinical context and other test results. Samra et al. Evidence for the Low Dose Dexamethasone Suppression Test to Screen for Mohit's Syndrome - Recommendations for a Protocol for Biochemistry Laboratories. 1997 Sybil. Clin. Biochem. 34 222-229. Specimen Type: BLOOD SPECIMEN [facility] Facility: [facility] Address: [address], [place] [address] Original Ordering Provider: VIKKI BALDERRAMA [facility] 09-06-2023 [facility] Telephone (ENSUMN) -- HEIDI JOY ([id number]) 1990 F Date Time Provider Department 09/06/23 MARIO SANTIAGO During your visit today, we recorded the following information about you: Valarie Wharton 09/06/2023 8:57 AM Signed 09/06/2023 INTAKE PENDING.NEED 24HR URINE-LFT MSG ON VMX AND SENT MYCHART MSG. ENDOCRINE SURGERY PATIENT WORKSHEET Initial Call Date: September 06, 2023 Reason for Consult/ Referral: Adrenal Mass PATIENT DEMOGRAPHICS Name: Heidi Joy [facility]#: [id number] : 1990 AGE: [age] year old Contact Numbers: Home: (home) Work: There is no work phone number on file. PATIENT PHYSICIAN INFORMATION Referring Doctor: Address: Phone: Gun Stock Maker: Address: Phone: PCP: Immanuel Kuhn [address] [facility] [address] [place] [address] PAST TREATMENT Office notes: SEE EPIC Medications: [...] - 340.0 ug/dL 188.1 Imaging Reports: SEE [facility] CD of Images: SEE [facility] FNA: no FNA Slides: N/A Has the patient ever had thyroid or parathyroid surgery before: No Operative Reports: NONE AVAILABLE Pathology Reports: NONE AVAILABLE Valarie Wharton 09/06/2023 8:59 AM Signed Addended by: VALARIE WHARTON on: 09/06/2023 08:59 AM Modules accepted: Orders Allergies As of Date: 09/06/2023 (No Known Allergies) Date Reviewed: 02/02/2020 Reviewed by: Shanell HENDRICKSON STUDENTGlo - Fully Assessed Reason for Visit: Consult [173] Cmt: FACE SHEET Primary Visit Diagnosis: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] Order(s):CATECHOLAMINES FRACTIONATED, URINE FREE [SQURCAT2] Order #: [id number]. #:[id number] ALDOSTERONE 24 HR, URINE [SQUALDO] Order #: [id number]. #:[id number] CREAT CLEAR 24 HOUR [SQUCCLR] Order #: [id number] URINE FREE CORTISOL BY LC-MS/MS [SQUFRCRT] Order #: [id number]. #:[id number] METANEPHRINES 24H UR [SQUMETAN] Order #: [id number]. #:[id number] CREATININE BLD [SQCRET] Reflex Order#: [id number] (Ord#:[id number]) CREATININE CLEARANCE, UR 24HR [[id number]] Reflex Order#: [id number] (Ord#:[id number]) Prescriptions as of 09/06/2023 - busPIRone (BUSPAR) [...] Encounter Status:Closed by VALARIE WHARTON on 09/06/23 [facility] Cortis p Dex SerPl-mCncon Cortisol post dose dexamethasone [Mass/Vol] 0.9 ug/dL Normal <1.8 [facility] Comment on above: Order Comment: Peter myles Type: BLOOD SPECIMENOrdering Facility: [facility] Address: [address] [place] [address] Result Comment: Afte r overnight 1 mg dexamethasone, an mortgage branch manager cortisol of <1.8 ug/dL may indicate an adequate cortisol suppression. This result should be interpreted within the clinical context and other test results. Samra et al. Evidence for the Low Dose Dexamethasone Suppression Test to Screen for Mohit's Syndrome - Recommendations for a Protocol for Biochemistry Laboratories. 1997 Sybil. Clin. Biochem. 34 222-229. Performed By: #### 4 7851-1 ####[facility] LABCLIA [id number] [address] STATES OF [facility] DEXAMETHASONEon 09-06-2023 DEXAMETHASONE 236.1 ng/dL Normal [facility] Comment on above: Order Comment: Peter myles Type: BLOOD SPECIMEN [facility] Address: [address] [place] [address] Result Comment: INTE RPRETIVE INFORMATION: Dexamethasone, Serum [...] developed and its performance characteristics determined by [employer]. It has not been cleared or approved by the US Food and Drug Administration. This test was performed in a CLIA certified laboratory and is intended for clinical purposes. Performed By: [facility] [address] [place] [address] Internet Systems Administrator: Adis Casillas MD, PhD CLIA Number: [id number] Performed By: #### D EXA #### [facility] CLIA [id number] [address] [place] [address] CNPSheri 09-05-2023 [facility] Telephone ([facility]) -- HEIDI JOY ([id number]) 1990 F Date Time Provider Department 09/05/23 [...] for 09/12 at 11AM per . Sent [employer] message and mailed out appointment reminder Prescriptions [...] Status:Closed by NIRMAL CHOUDHURY on 09/05/23 Normal [facility] CNPNon 09-04-2023 CNPN Telephone (STED) -- HEIDI JOY ([id number]) 1990 F Date Time Provider Department 09/04/23 [...] hyperaldosteronism (HCC) [E26.09] Order(s):DEXAMETHASONE [SQDEXA] Order #: [id number] FUTURE CORTISOL SUPRES POST [SQONCORP] Order #: [id number] FUTURE CONSULT TO ENDOCRINE SURGERY [[id number]] Order #: [id number]: 1 FUTURE Prescriptions as of 09/04/2023 - [...] Status:Closed by VIKKI BALDERRAMA on 09/04/23 Normal [facility] US renal doppleron US renal doppler [facility] [place] [address] Ultrasound Report Signed Patient: Heidi Joy MR#: [id number] : 1990 Acct:[id number] Age/Sex: 33 / F ADM Date: 08/30/23 Loc: Room: Type: [facility] Attending Dr: Zara Ralph MD Ordering Provider: Zara Ralph MD Date of Service: 08/30/23 US/US renal doppler: E87.6, E87.3, I10. E27.9 Copies to: Zara Ralph MD Renal artery duplex examination performed using B-mode, color flow and spectral Doppler assessment. (CPT: 15860) INDICATION: Hypertension FINDINGS: Aorta: PSV 94.9 cm/s [...] Efrem Jo MD08/31/2023 3:55 PM Dictation Location: [place] [address] Tech: Hermelinda Alonso Transcribed By: KATHLEEN 08/31/23 1555 Dictated By: Efrem Jo MD 08/31/231553 Signed By: 08/31/23 155 Normal [facility] ACTH Plas-mCncon 08-30-2023 Corticotropin (P) [Mass/Vol] 22.2 pg/mL Normal 7.2-63.3 [facility] Comment on above: Order Comment: Speci men Type: BLOOD SPECIMENOrdering Facility: [facility] Address: [address] [place] [address] Result Comment: ACTH Reference Range: 7-10 am: 7.2 - 63.3 pg/mL Performed By: #### 2 141-0 ####[facility] LABCLIA [id number] [address] Aldost SerPl-ncon 08-30-19 Aldosterone [Mass/Vol] 79.8 ng/dL High 0.0-<35.4 [facility] Comment on above: Order Comment: Speci men Type: BLOOD SPECIMENOrdering Facility: [facility] Address: [address] [place] [address] Result Comment: The reference interval for serum/plasma [...] 15 ng/dL. Performed By: #### R ENIND ####[facility] LABCLIA [id number] [address] LABCLIA [id number] [place] [address]#### 1763-2 ####[facility] LABCLIA [id number] [address] Comprehensive metabolic 2000 panelon 08-30-2023 Albumin [Mass/Vol] 4.2 g/dL Normal 3.9-4.9 [facility] Comment on above: Order Comment: Speci men Type: TIMED URINE SPECIMEN [facility] Address: [address] [place] [address] Performed By: #### U METAN #### [facility] CLIA [id number] [address] [place] [address] LAB CLIA [id number] [address] [place] [address] ALP [Catalytic activity/Vol] 127 U/L High 34-123 [facility] Comment on above: Order Comment: Speci men Type: TIMED URINE SPECIMEN [facility]ing Facility: [facility] Address: [address] [place] [address] Performed By: #### U METAN #### [facility] CLIA [id number] [address] [place] [address] LAB CLIA [id number] [address] [place], [place] [id number] ALT [Catalytic activity/Vol] 16 U/L Normal 7-38 [facility] Comment on above: Order Comment: Speci men Type: TIMED URINE SPECIMEN [facility]ing Facility: [facility] Address: [address] [place] [address] Performed By: #### U METAN #### [facility] CLIA [id number] [address] [place] [address] LAB CLIA [id number] [address] [place] [address] Anion gap [Moles/Vol] 10 mmol/L Normal 9-18 [facility] Comment on above: Order Comment: Speci men Type: TIMED URINE SPECIMEN Ordering Facility: [facility] Address: [address] [place] [address] Performed By: #### U METAN #### [facility] CLIA [id number] [address] [place], [place] [id number] [facility] CLIA [id number] [address] [place] [address] AST [Catalytic activity/Vol] 14 U/L Normal 13-35 [facility] Comment on above: Order Comment: Speci men Type: TIMED URINE SPECIMEN [facility] Facility: [facility] Address: [address] [place], [place] [address] Performed By: #### U METAN #### [facility] CLIA [id number] [address] [place], [place] [id number] [facility] CLIA [id number] [address] [place] [address] Bilirubin [Mass/Vol] 1.2 mg/dL Normal 0.2-1.3 [facility] Comment on above: Order Comment: Speci men Type: TIMED URINE SPECIMEN [facility]ing Facility: [facility] Address: [address] [place], [place] [address] Performed By: #### U METAN #### [facility] CLIA [id number] [address] [place], [place] [id number] [facility] CLIA [id number] [address] [place] [address] Calcium [Mass/Vol] 9.4 mg/dL Normal 8.5-10.2 [facility] Comment on above: Order Comment: Speci men Type: TIMED URINE SPECIMEN [facility] Facility: [facility] Address: [address] [place], [place] [address] Performed By: #### U METAN #### [facility] CLIA [id number] [address] [place] [address] [facility] CLIA [id number] [address] [place] [address] Chloride [Moles/Vol] 109 mmol/L High 97-105 [facility] Comment on above: Order Comment: Speci men Type: TIMED URINE SPECIMEN [facility] Facility: [facility] Address: [address] [place] [address] Performed By: #### U METAN #### [facility] CLIA [id number] [address] [place] [address] LAB CLIA [id number] [address] [place], [place] [id number] CO2 [Moles/Vol] 27 mmol/L Normal 22-30 [facility] Comment on above: Order Comment: Speci men Type: TIMED URINE SPECIMEN [facility] Facility: [facility] Address: [address] [place] [address] Performed By: #### U METAN #### [facility] CLIA [id number] [address] [place] [address] LAB CLIA [id number] [address] [place], [place] [id number] Creatinine [Mass/Vol] 0.66 mg/dL Normal 0.58-0.96 [facility] Comment on above: Order Comment: Speci men Type: TIMED URINE SPECIMEN [facility] Facility[facility] Address: [address] [place] [address] Performed By: #### U METAN #### [facility] CLIA [id number] [address] [place] [address] LAB CLIA [id number] [address] [place] [address] Creatinine and Glomerular filtration rate.predicted panel (S/P/Bld) 120 mL/min/1.73m??? Normal >=60 [facility] Comment on above: Order Comment: Speci men Type: TIMED URINE SPECIMEN [facility]ing Facility: [facility] Address: [address], [place] [address] Result Comment: Rachel mated Glomerular Filtration Rate [...] GFR. Performed By: #### U METAN #### [facility] CLIA [id number] [address] [place] [address] LAB CLIA [id number] [address] [place] [address] Glucose [Mass/Vol] 91 mg/dL Normal 74-99 [facility] Comment on above: Order Comment: Speci men Type: TIMED URINE SPECIMEN [facility] Facility: [facility] Address: [address] [place] [address] Result Comment: The [place] Diabetes Association (ADA) provides guidance for cutoff [...] Standards of Medical Care in Diabetes 2016, [place] [employer] Association. Diabetes Care. 2016.39(Suppl 1). Performed By: #### U METAN #### [facility] CLIA [id number] [address] [place] [address] LAB CLIA [id number] [address] [place] [address] Potassium [Moles/Vol] 2.8 mmol/L Low 3.7-5.1 [facility] Comment on above: Order Comment: Speci men Type: TIMED URINE SPECIMEN [facility] Facility: [facility] Address: [address] [place] [address] Performed By: #### U METAN #### [facility] CLIA [id number] [address] [place], [place] [id number] [facility] CLIA [id number] [address] [place] [address] Protein [Mass/Vol] 6.7 g/dL Normal 6.3-8.0 [facility] Comment on above: Order Comment: Speci men Type: TIMED URINE SPECIMEN [facility] Facility[facility] Address: [address] [place] [id number] Performed By: #### U METAN #### [facility] CLIA [id number] [address] [place], [place] [id number] [facility] CLIA [id number] [address] [place] [address] Sodium [Moles/Vol] 146 mmol/L High 136-144 [facility] Comment on above: Order Comment: Speci men Type: TIMED URINE SPECIMEN [facility] Facility[facility] Address: [address] [place] [place] [id number] Performed By: #### U METAN #### [facility] CLIA [id number] [address] [place], [place] [address] [facility] CLIA [id number] [address] [place] [address] Urea nitrogen [Mass/Vol] 12 mg/dL Normal 7-21 [facility] Comment on above: Order Comment: Speci men Type: TIMED URINE SPECIMEN [facility] Facility[facility] Address: [address] [place] [place] [id number] Performed By: #### U METAN #### [facility] CLIA [id number] [address] [place], [place] [address] [facility] CLIA [id number] [address] [place] [address] Tamie Fritz [birth year]19 Cortisol [Mass/Vol] 9.5 ug/dL Normal 4.8-19.5 [facility] Comment on above: Order Comment: Speci men Type: BLOOD SPECIMENOrdering Facility: [facility] Address: [address] [place] [address] Result Comment: Prov ided reference range is from 6-10 AM sample collection time. Cortisol Reference Range: 6-10 AM = 4.8-19.5 ug/dL, 4-8 PM = 2.5-11.9 ug/dL Performed By: #### Jael NAVARRO 2143-01 ####[facility] LABCLIA [id number] [place] [address] [place] DHEA-S BLDon 08-30-2023 DHEA-S [Mass/Vol] 188.1 ug/dL Normal 98.8-340.0 [facility] Comment on above: Order Comment: Joselyni men Type: BLOOD SPECIMENOrdering Facility: [facility] Address: [address] [place] [address] Result Comment: Refe rence ranges are age and gender specific. For additional information, reference range tables can be found in the laboratory test directory. The normal values are based on the following source: Dehydroepiandrosterone sulfate (DHEA S) [package insert V 17.0 Urdu]. [facility], [place], [place]: March 2013. Performed By: #### Jael NAVARRO 2143-01 ####[facility] LABCLIA [id number] [place] [address] [place] DIRECT RENIN PLASMAon 2023 DIRECT RENIN <2.1 Low 4.2-52.2 [facility] Comment on above: Order Comment: Joselyni men Type: BLOOD SPECIMENOrdering Facility: [facility] Address: [address] [place] [address] Result Comment: A ra yue of aldosterone [...] 2.5-45.1 pg/mL Performed By: #### R ENIND ####[facility] LABCLIA [id number] [address] LABCLIA [id number] [place] [address]#### [id number] ####[facility] LABCLIA [id number] [place] [address] [place] PATIENT UPRIGHT OR SUPINE Upright Normal [facility] Comment on above: Order Comment: Speci men Type: BLOOD SPECIMENOrdering Facility: [facility] Address: [address] [place] [address] Performed By: #### R ENIND ####[facility] LABCLIA [id number] [address] LABCLIA [id number] [place] [address]#### [id number] ####[facility] LABCLIA [id number] [address] [place] METANEPHRINES, FREE PLASMAon 08-30-2023 METANEPHRINE, PLASMA 28 pg/mL Normal 12-67 [facility] Comment on above: Order Comment: Speci men Type: BLOOD SPECIMENOrdering Facility: [facility] Address: [address] [place] [address] Result Comment: Refe rence Ranges: Hypertensive adult > or = 18 yrs old: 12-72 pg/mL Normotensive adult > or = 18 yrs old: 12-67 pg/mL Normotensive children < 18 yrs old: 10-95 pg/mL Performed By: #### P METAN ####[facility] LABCLIA [id number] [place] [address] [place] NORMETANEPHRINE, PLASMA 84 pg/mL Normal 18-101 [facility] Comment on above: Order Comment: Speci men Type: BLOOD SPECIMENOrdering Facility: [facility] Address: [address] [facility] [place] [address] Result Comment: Refe rence Ranges: Hypertensive adult > or = 18 yrs old: 24-145 pg/mL Normotensive adult > or = 18 yrs old: 18-101 pg/mL Normotensive children < 18 yrs old: 22-83 pg/mL Methyldopa may cause false elevation of normetanephrine levels in this assay. If patient is on methyldopa, interpret results with caution. 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 When there are no FDA-approved or cleared tests available, and other criteria are met, FDA can make tests available under an emergency access mechanism called an Emergency Use Authorization (EUA). The EUA for this test is supported by the Panel Monitor of Health and Human Service's (HHS's) declaration [...] SARS-CoV-2. Performed By: #### C VDTBH #### [facility] [address] [place] [address] Dr. Maylin Ch Follow-Upon 11-05-2022 Follow-Up [id number] Janine Joy 1990 F Date Provider Department Center 11/05/2022 RAVINDRA BUCKLEY ONC DCC Family History Problem Relation Age of Onset Diabetes Mother Thyroid cancer Mother Diabetes Father Hypertension Father Family Status - Relation Status Age at Mother Father Level of Service:87824 CT OFFICE/OUTPATIENT ESTABLISHED MOD MDM 30-39 MIN Normal [facility] DRUG SCREEN RAPID (URINE)on 10-23-2022 AMP Negative Normal NEGATIVE [facility] Comment on above: Performed By: #### D RUGRPD #### [facility] [address] [place] [address] Dr. aMylin Ch BAR Negative Normal NEGATIVE [facility] Comment on above: Performed By: #### D RUGRPD #### [facility] [address] [place] [address] Dr. Maylin Ch BUP Negative Normal NEGATIVE [facility] Comment on above: Performed By: #### D RUGRPD #### [facility] [address] [place] [address] Dr. Maylin Ch BZO Negative Normal NEGATIVE [facility] Comment on above: Performed By: #### D RUGRPD #### [facility] [address] [place] [address] Dr. Maylin Ch DRE Negative Normal NEGATIVE [facility] Comment on above: Performed By: #### D RUGRPD #### [facility] [address] [place] [address] Dr. Maylin Ch CUT-OFFS SEE BELOW Normal [facility] Comment on above: Result [...] ng/mL Performed By: #### D RUGRPD #### [facility] [address] [place] [address] Dr. Maylin Ch DRUG CUT HEADER DRUG CLASS TEST SYST EM CUT-OFF CONCENTRATIONS ARE FOLLOWS: Normal [facility] Comment on above: Performed By: #### D RUGRPD #### [facility] [address] [place] [address] Dr. Maylin Ch mAMP Negative Normal NEGATIVE [facility] Comment on above: Performed By: #### D RUGRPD #### [facility] [address] [place] [address] Dr. Maylin Ch MTD Negative Normal NEGATIVE [facility] Comment on above: Performed By: #### D RUGRPD #### [facility] [address] [place] [address] Dr. Maylin Ch OPI Negative Normal NEGATIVE [facility] Comment on above: Performed By: #### D RUGRPD #### [facility] [address] [place] [address] Dr. Maylin Ch OXY Negative Normal NEGATIVE [facility] Comment on above: Performed By: #### D RUGRPD #### [facility] [address] [place] [address] Dr. Maylin Ch PCP Negative Normal NEGATIVE [facility] Comment on above: Performed By: #### D RUGRPD #### [facility] [address] [place] [address] Dr. Maylin Ch PPX Negative Normal NEGATIVE [facility] Comment on above: Performed By: #### D RUGRPD #### [facility] [address] [place] [address] Dr. Maylin Ch TCA Negative Normal NEGATIVE [facility] Comment on above: Performed By: #### D RUGRPD #### [facility] [address] [place], [place] [address] Dr. Maylin Ch THC Negative Normal NEGATIVE [facility] Comment on above: Performed By: #### D RUGRPD #### [facility] [address] [place], [place] [address] Dr. Maylin Ch MR BRAIN W AND [...] of ventriculomegaly. Electronically signed: Frank Lara. Normal [facility] Serum or plasma potassium me asurement (moles/volume)Ordered By: Manasa Rhodes on 09-13-2022 Potassium [Moles/Vol] 3.3 mmol/L 3.5-5.1 [facility] Office Visiton 09-10-2022 Follow-up visit [id number] Janine Joy 1990 F Date Provider Department Center 09/10/2022 RAVINDRA BUCKLEY ONC DCC Family History Problem Relation Age of Onset Diabetes Mother Thyroid cancer Mother Diabetes Father Hypertension Father Family Status - Relation Status Age at Mother Father Level of Service:32069 CT OFFICE/OUTPATIENT ESTABLISHED MOD MDM 30-39 MIN Reason for Visit and Comments: Consult [484] - Past patient, coming back today to have imaging reordered. Normal [facility] Orders Onlyon 09-10-2022 Orders Only [id number] Janine Joy 1990 F Date Provider Department Center 09/10/2022 MONICA DOMINGUEZ ONC DCC Family History Problem Relation Age of Onset Diabetes Mother Thyroid cancer Mother Diabetes Father Hypertension Father Family Status - Relation Status Age at Mother Father Normal [facility] MAGNESIUMon 09-07-2022 Magnesium [Mass/Vol] 1.9 mg/dL Normal 1.8-2.4 [facility] Comment on above: Performed By: #### M YAMILET Yun BMP #### [facility] [address] [place] [address] Dr. Maylin Ch PHOSPHORUSon 09-07-2022 Phosphate [Mass/Vol] 3.7 mg/dL Normal 2.6-4.7 [facility] Comment on above: Performed By: #### YAMILET Lopez BMP #### [facility] [address] [place] [address] [address] Maylin Ch PROF CHEM 8 (BAS METB)on Anion gap [Moles/Vol] 14.3 mmol/L Normal [facility] Comment on above: Performed By: #### YAMILET Lopez BMP #### [facility] [address] [place] [address] Dr. Maylin Ch Calcium [Mass/Vol] 9.3 mg/dL Normal 8.5-10.1 [facility] Comment on above: Performed By: #### M G, PHOS, BMP #### [facility] [address] [place] [address] [address] Maylin Ch Chloride [Moles/Vol] 105 mmol/L Normal 98-107 [facility] Comment on above: Performed By: #### M Court, PHOS, BMP #### [facility] [address] [place] [address] [address] Maylin Ch CO2 [Moles/Vol] 31.0 mmol/L Normal 21.0-32.0 [facility] Comment on above: Performed By: #### M Court, PHOS, BMP #### [facility] [address] [place] [address] [address] Maylin Ch Creatinine [Mass/Vol] 0.90 mg/dL Normal 0.55-1.02 [facility] Comment on above: Performed By: #### Jose F Yun, PHOS, BMP #### [facility] [address] [place] [address] [address] Maylin Ch EGFR-AF SOUTH KOREAN >60 Normal >=60 [facility] Comment on above: Performed By: #### Jose F Yun, PHOS, BMP #### [facility] [address] [place] [address] [address] Maylin Ch EGFR-NON AF [place]OU[place]ORE[place] >60 Normal >=60 [facility] Comment on above: Performed By: #### Jose F Yun, PHOS, BMP #### [facility] [address] [place] [address] [address] Maylin Ch Glucose [Mass/Vol] 158 mg/dL Critically high 74-106 [facility] Comment on above: Performed By: #### Jose F Yun, PHOS, BMP #### [facility] [address] [place] [address] [address] Maylin Ch Potassium [Moles/Vol] 2.3 mmol/L Critically low 3.5-5.1 [facility] Comment on above: Performed By: #### M G, PHOS, BMP #### [facility] [address] [place] [address] [address] Maylin Ch Sodium [Moles/Vol] 147 mmol/L Critically high 136-145 [facility] Comment on above: Performed By: #### M G, PHOS, BMP #### [facility] [address] [place], [place] [address] Dr. Maylin Ch Urea nitrogen [Mass/Vol] 7.0 mg/dL Normal 7.0-18.0 [facility] Comment on above: Performed By: #### M G, PHOS, BMP #### [facility] [address] [place], [place] [address] Dr. Maylin Ch Urea nitrogen/Creatinine [Mass ratio] 7.8 mg/mg Normal [facility] Comment on above: Performed By: #### M G, PHOS, BMP #### [facility] [address] [place], [place] [address] Dr. Maylin Ch Serum or plasma potassium me asurement (moles/volume)Ordered By: NON STAFF on 09-07-2022 Potassium [Moles/Vol] 2.4 mmol/L 3.5-5.1 [facility] Comment on above: Results calledat 080 7 [...] seen for a consultation for. DEDE Benson, [facility] Bariatrics- Bariatric sx History of [...] Vital Signs Recorded: 06Jun2022 04:17PMRecorded: 06Jun2022 03:45PM [id number], LUE, Sitting [id number], LUE, Sitting Heart Rate71, Apical Height5 ft 7 in Fudqft366 lb BMI Eumusjbwfh21.77 kg/m2 BSA Calculated2.42 Tobacco Useb) No PHQ-2 [...] to auscul (more content not included)... Normal [email or web address] Tobacco Screening.on 022 Adult depression screening assessment No [facility] [employer] [address] DO Work Phone: Tobacco use status CPHS b) No M [facility] [employer] pati 250 DO Work Phone: DHEA SERUMon 01-12-2022 Dehydroepiandrosterone (DHEA) 287 ng/dL Normal 31-701 [facility] Comment on above: Result Comment: Age [...] 701 Performed By: #### D STAR. #### [facility] [address] [place] [address] Dr. Maylin Ch TESTOSTERONE, FREE,DIRECT, T OTALon 01-06-2022 Free Testosterone(Direct) 1.6 pg/mL Normal 0.0-4.2 [facility] Comment on above: Result Comment: Perf ormed at: BN Performed By: #### T ESTFRD #### [facility] [address] [place] [address] Dr. Maylin Ch Testosterone [Mass/Vol] 17 ng/dL Normal 13-71 [facility] Comment on above: Result Comment: Perf ormed at: CB Performed By: #### T ESTFRD #### [facility] [address] [place] [address] Dr. Maylin Ch INSULINon 01-05-2022 Insulin 13.2 uIU/mL Normal 2.6-24.9 [facility] Comment on above: Performed By: #### I NSULIN #### [facility] [address] [place] [address] Dr. Maylin Ch GLYCOHEMOGLOBIN A1Con 2021 ADA RECOMMENDATION SEE BELOW Normal [facility] Comment on above: Result Comment: ADA RECOMMENDED LIMIT 4.0 - 6.0 ADA THERAPEUTIC TARGET < 7.0 ACTION SUGGESTED > 7.0 Performed By: #### A 1C #### [facility] [address] [place] [address] Dr. Maylin Ch Glucose [Mass/Vol] 146 mg/dL Normal [facility] Comment on above: Performed By: #### A 1C #### [facility] [address] [place] [address] Dr. Maylin Ch HbA1c (Bld) [Mass fraction] 6.7 % Critically high 4.5-6.2 [facility] Comment on above: Performed By: #### A 1C #### [facility] [address] [place] [address] Dr. Maylin Ch TSHon 01-04-2022 TSH 3.214 uIU/mL Normal 0.358-3.74 0 [facility] Comment on above: Performed By: #### T SH #### [facility] [address] [place] [address] [address] Maylin Ch TSH RANGE SEE BELOW Normal [facility] Comment on above: Result Comment: <0.3 4 UIU/ml HYPERTHYROID 0.34-5.60 UIU/ml EUTHYROID >5.60 UIU/ml HYPOTHYROID Performed By: #### T SH #### [facility] [address] [place], [place] [address] Dr. Maylin Ch Potassiumon 10-05-2021 Potassium [Moles/Vol] 3.3 mmol/L Low 3.5-5.5 [facility] Comment on above: Performed By: #### K #### [facility] [address] [place], [place] [id number] Consenton 09-11-2021 Consent [id number]:127 Normal [facility] Registrationon 09-11-2021 Registration [id number]:127 Normal [facility] Basic Metabolic Panelon 08-06 Anion gap [Moles/Vol] 21 mmol/L High 12-20 Joseph krueger [place] [employer] [facility] Super[facility] Comment on above: Result Comment: Effe ctive 08/10/2019 reference range changed. Performed By: #### B MP #### [facility] [address] [place], [place] [id number] Calcium [Mass/Vol] 9.3 mg/dL Normal 8.6-10.2 Sydnie crespo [place] [employer] [facility] Super[facility] Comment on above: Performed By: #### B MP #### [facility] [address] [place], [place] [id number] Chloride [Moles/Vol] 106 mmol/L Normal 98-107 Jia sorto [employer] [facility] Super[facility] Comment on above: Performed By: #### B MP #### [facility] [address], [place] [id number] CO2 [Moles/Vol] 20 mmol/L Normal 20-31 [facility] Specialist Comment on above: Performed By: #### B MP #### [facility] [address], [place] [id number] Creatinine [Mass/Vol] 0.7 mg/dL Normal 0.6-1.4 [facility] Comment on above: Performed By: #### B MP #### [facility] [address], [place] [id number] eGFRAA 115 mL/min/1.73m2 Normal >60 [facility] Comment on above: Performed By: #### B MP #### [facility] [address], [place] [id number] eGFRNAA 95 mL/min/1.73m2 Normal >60 [facility] Comment on above: Performed By: #### B MP #### [facility] [address], [place] [id number] Glucose [Mass/Vol] 184 mg/dL High 65-99 [facility] Specialist Comment on above: Result Comment: For FASTING Glucose --- ADA reference ranges: Normal 65-99 mg/dl Prediabetes 100-125 Diabetes >/= 126 Performed By: #### B MP #### [facility] [address], [place] [id number] Potassium [Moles/Vol] 2.8 mmol/L Critically low 3.5-5.5 [facility] Comment on above: Result Comment: Crit ical result called to Dr Rhodes/Rylee at 09/01/2021 11:58 AM by Cyndie Montanez) Performed By: #### B MP #### [facility] [address], [place] [id number] Sodium [Moles/Vol] 144 mmol/L Normal 135-146 [facility] Specialist Comment on above: Performed By: #### B MP #### [facility] [address], [place] [id number] Urea nitrogen [Mass/Vol] 10 mg/dL Normal 7-25 [facility] Specialist Comment on above: Performed By: #### B MP #### [facility] [address], [place] [id number] [place] 08-17-2021 Consent [id number]:127 Normal [facility] Registrationon 08-17-2021 Registration [id number]#1.00CD:127 Normal [facility] Registrationon 04-04-2021 Registration [id number]#[id number]:127 Normal [facility] [place] 04-03-2021 Consent [id number]#[id number]:127 Normal [facility] MRI BRAIN W WO CONTRASTon MRI BRAIN W WO CONTRAST [facility] Department of Radiology [address] [place] [id number] Patient Name: HEIDI JOY : 1990 Sex: F Age: Race: White Pt. Location: 29 Patient Status: O Ordered Date: 02/04/2020 2:05:00 PM Completed Date: 03/17/2020 10:13 AM Requesting Provider: GANGA RODRIGUES Attending Provider: GANGA RODRIGUES Report Copy To: IMMANUEL KUHN Signs & Symptoms: C71.9 Malignant neoplasm of brain, unspecified I10 History: Nita AMES AUTH [id number] VALID 03/04-04/03/2020 [id number] KW Comments: , 1p-19q co-deleted oligodendroglioma of [...] reports Electronically signed: Shawn Martins. Transcribed by: [email or web address], User Resident: JONATHAN JONES Electronically Signed by: SHAWN MARTINS @ 03/17/2020 12:45 PM I personally read this/these film(s) with this resident Normal [facility] Comment on above: Order Comment: , 1p- [...] WO CONTRASTon MRI BRAIN W WO CONTRAST [facility] Department of Radiology [address] [place] [id number] Patient Name: HEIDI JOY : 1990 Sex: F Age: Race: White Pt. Location: 29 Patient Status: O Ordered Date: 03/20/2019 11:25:00 AM Completed Date: 09/11/2019 10:54 AM Requesting Provider: ALISA CH Attending Provider: ALISA CH Report Copy To: IMMANUEL KUHN Signs & Symptoms: C71.9 Malignant neoplasm of brain, unspecified I10 History: Nita ames auth # [id number] 08/28/2019-09/27/2019 cpt code 34597 *mla Comments: , 1p-19q co-deleted oligodendroglioma of [...] reports Electronically signed: Jim Curiel. Transcribed by: [email or web address], User Resident: DANDY HUFFMAN Electronically Signed by: JIM CURIEL @ 09/11/2019 04:35 PM I personally read this/these film(s) with this resident Normal [facility] Comment on above: Order Comment: , 1p- [...] Summaryon 01-29-2018 Coding Summary CODING DATE: 018 [facility] STATUS: Home PAYOR: Medicaid HMO [...] Avery Swanson' Date Saved: 01/29/2018 03:42 pm [facility] ED Clinical Summaryon 2017 ED Clinical Summary [facility] ? Urgent [address] [place] [address] clinical SummaryPERSON INFORMATIONName: HEIDI JOY Age: 27 Years Sex: FEMALEDOB: [birth year] MRN: Acct#:Visit Reason: UC - Rash; UC - Rash; RASH/ BILAT LEGS Arrival: 01/23/18 10:43:00 Discharge: 01/23/18 11:18:00LOS: 000 00:35 Check In: 01/23/18 10:43:00 Checkout: 01/23/18 11:18:00Address:[address] [place] [id number]: Immanuel Kuhn JPROANGE INFORMATIONProvider Role Assigned UnassignedSpasic Carmelo ASHRAF ED PA 01/23/18 10:48:23SmCristal ibarra ED Nurse 01/23/18 10:53:41VITALS INFORMATIONVital Sign Triage LatestTemperature TympanicTemperature Temporal ArteryPulse Rate 79 bpm 79 bpmO2 Sat 97 % 97 %Respiratory Rate 16 br/min 16 br/minBlood Pressure 162 mmHg/98 mmHg 162 mmHg/98 mmHgMEDICAL INFORMATIONMedications Given:Allergy Information:No Known Medication AllergiesPHYSICIAN DOCUMENTATIONDISCHARGE INFORMATION:Discharge Disposition: HomeDischarge Location:PATIENT EDUCATION INFORMATIONInstructions: Poison Hollister Dermatitis, Psha-ut-MbozKwsdul-Up:With : Address: When:Immanuel Kuhn [facility] [address], [address] [place] [address] [facility] (1)Comments:Begin on the prednisone 2 tablets daily for 5 days take with food to avoid gastric refluxBegin on the Claritin 1 tab daily for the next 2 weeks Follow-up with primary care provider in 3-5 days sooner if worse.DIAGNOSIS:urushiol induced contact dermatitisPatient Understands: Yes - Patient/family/caregiver verbalizes understanding of instructions givenComment: [facility] Note - [facility]on 2017 ED Note - Physician Patient: HONORIO JOY MRN: 16-- : 27 years Sex: FEMALE : [birth year]Associated Diagnoses: urushiol induced contact dermatitisAuthor: [place] InformationTime seen: Date & time 01/23/18 11:01:00.History source: Patient.Arrival mode: Private vehicle.History limitation: None.Additional information: Chief Complaint from Nursing Triage Note : Chief Cahdtyfay64/21/18 10:45 EDT Chief Complaint 2-3 days possible [...] been selected or recorded..Social history:Social & Psychosocial QzljyiQtesihc16/21/2018 Number used per day: 10.Problem list:Active Problems (1)Smoker.Physical Examination Vital NszvrYzxjcvjuuicg70/21/18 10:45 EDT Height 170.18 cm Weight 122.47 [...] was given the following educational materials: Poison Hollister Dermatitis, Pbzp-zy-Plqe.Follow up with: Immanuel Kuhn Begin on the [...] on: 01/23/2018 11:28 EDT] [place] Normal [facility] ED Patient Summaryon 018 ED Patient Summary [facility] ? Urgent [address], [place] [id number] pATIENT DISCHARGE INSTRUCTIONSPatient InformationName: HEIDI JOY Age: 27 YearsDate of : [birth year]MRN: [id number] For Visit: UC - Rash; UC - Rash; RASH/ BILAT LEGSArrival Time: 01/23/18 10:43:00[facility]: [facility]: Immanuel Kuhn Physician: Aleksander Lakement:Patient EducationWith: Address: When:[address] [place] [address] Business (1)Comments:Begin on the prednisone 2 tablets daily for 5 days take with food to avoid gastric refluxBegin on the Claritin 1 tab daily for the next 2 weeks Follow-up with primary care provider in 3-5 days sooner if worse.Poison Hollister DermatitisPoison oak dermatitis is redness and soreness [...] instructions at home:General instructions? Take or apply jnxc-ynv-eyyqyzt and prescription medicines only as told by [...] Reviewed: 12/28/2015[employer] Patient Education ? 2018 [employer].Medication Information:The exam and treatment you received today in the [facility] Emergency Department were for an urgent problem and are not intended as complete care. It is important for you to follow up with a doctor, nurse practitioner, or physician?s news assistant for ongoing care. If your symptoms [...] number so we can reach you if necessary.[facility] Emergency Department has provided you with a complete list of medications post discharge. Please inform your mate first/provider of your visit and for further instruction [...] InformationVisit Diagnosis:Diagnoses This Visit UC - Rash ([id number]) UC - Rash ([id number]) urushiol induced contact dermatitisIf you received any [...] Weight: 122.47 kg Body Mass Index: 42.29 kg/z3Vucdtkps List:Problem Onset CommentsSmokerMajor Tests and Procedures:The following [...] Disease Control and Prevention April 2014 Normal [facility]gent Care [place] 018 Urgent Care Record [facility] ? Urgent [address] [place] [address] pATIENT DISCHARGE INSTRUCTIONSPatient InformationName: HEIDI JOY Age: 27 YearsDate of : [birth year]MRN: [id number] For Visit: UC - Rash; UC - Rash; RASH/ BILAT LEGSArrival Time: 01/23/18 10:43:00[facility]: [facility] Physician: Immanuel Kuhn Physician: Tonja LakerComment:Visit Diagnosis:Diagnoses This Visit UC - Rash ([id number]) UC - Rash ([id number]) urushiol induced contact dermatitisIf you received any [...] sign any legal documentsWith: Address: When:Immanuel Kuhn [facility] [address] [place] [address] Business (1)Comments:Begin on the prednisone 2 tablets daily for 5 days take with food to avoid gastric refluxBegin on the Claritin 1 tab daily for the next 2 weeks Follow-up with primary care provider in 3-5 days sooner if worse.Medication Information:The exam and treatment you received today in the [facility] Urgent Care were for an urgent problem and are not intended as complete care. It is important for you to follow up with a doctor, nurse practitioner, or physician?s news assistant for ongoing care. If your symptoms [...] number so we can reach you if necessary.[facility] has provided you with a complete list of medications post discharge. Please inform your mate first/provider of your visit and for further instruction [...] Weight: 122.47 kg Body Mass Index: 42.29 kg/k8Qfgrbegs List:Problem Onset CommentsSmoker Patient EducationPoison Hollister DermatitisPoison oak dermatitis is redness and soreness [...] instructions at home:General instructions? Take or apply davz-vrg-lmucqle and prescription medicines only as told by [...] Reviewed: 12/28/2015[employer] Patient Education ? 2018 [employer] Viruses or BacteriaWhat?s got you sick?Antibiotics [...] for Disease Control and Prevention April 2014 [facility] Vital Signs Date Time Vital Sign Value Performing Clinician Facility 12-06-2023 09:08-0400 Body height 170.2 cm Pacc 2 Work Phone: [facility] 12-06-2023 09:08-0400 Body mass index (BMI) [Ratio] 28.66 kg/m2 Pacc 2 Work Phone: [facility] 12-06-2023 09:08-0400 Body temperature 98.1 [degF] Pacc 2 Work Phone: [facility] 12-06-2023 09:08-0400 Body weight 83 kg Pacc 2 Work Phone: [facility] 12-06-2023 09:08-0400 Diastolic blood pressure 90 mm[Hg] Pacc 2 Work Phone: [facility] 12-06-2023 09:08-0400 Heart rate 67 /min Pacc 2 Work Phone: [facility] 12-06-2023 09:08-0400 Respiratory rate 16 /min Pacc 2 Work Phone: [facility] 12-06-2023 09:08-0400 SaO2% (BldA) [Mass fraction] 99 % Pacc 2 Work Phone: [facility] 12-06-2023 09:08-0400 Systolic blood pressure 170 mm[Hg] Pacc 2 Work Phone: [facility] 09-13-2023 10:53-0500 Body mass index (BMI) [Ratio] 31.78 kg/m2 Barbara Zack [employer] Work Phone: [facility] 09-13-2023 10:53-0500 Body temperature 97.5 [degF] Barbara Dixon [employer] Work Phone: [facility] 09-13-2023 10:53-0500 Body weight 89.3 kg Barbara Zack [employer] Work Phone: [facility] 09-13-2023 10:53-0500 Diastolic blood pressure 100 mm[Hg] Barbara Dixon [employer] Work Phone: [facility] 09-13-2023 10:53-0500 Heart rate 79 /min Barbara Dixon [employer] Work Phone: [facility] 09-13-2023 10:53-0500 SaO2% (BldA) [Mass fraction] 98 % Barbara Zack [employer] Work Phone: [facility] 09-13-2023 10:53-0500 Systolic blood pressure 160 mm[Hg] Barbara Dixon [employer] Work Phone: [facility] 09-09-2023 16:00-0500 Body height 170.18 cm Zara Ramo Other [employer] Other 09-09-2023 16:00-0500 Body mass index (BMI) [Ratio] 30.82 kg/m2 Zara Ramo Other [employer] Other 09-09-2023 16:00-0500 Body temperature 96.4 [degF] Zara Ramo Other [employer] Other 09-09-2023 16:00-0500 Body weight 89.27 kg Zara Ramo Other [employer] Other 09-09-2023 16:00-0500 Diastolic blood pressure 92 mm[Hg] Zara Ramo Other [employer] Other 09-09-2023 16:00-0500 Respiratory rate 18 /min Zara Ramo Other [employer] Other 09-09-2023 16:00-0500 SaO2% (BldA) [Mass fraction] 99 % Zara Ramo Other [employer] Other 09-09-2023 16:00-0500 Systolic blood pressure 151 mm[Hg] Zara Ramo Other [employer] Other 08-19-2023 16:00-0500 Body height 170.18 cm Zara Ramo Other [employer] Other 08-19-2023 16:00-0500 Body mass index (BMI) [Ratio] 31.76 kg/m2 Zara Ramo Other [employer] Other 08-19-2023 16:00-0500 Body temperature 97.5 [degF] Zara Ramo Other [employer] Other 08-19-2023 16:00-0500 Body weight 91.99 kg Zara Ramo Other [employer] Other 08-19-2023 16:00-0500 Diastolic blood pressure 100 mm[Hg] Zara Ramo Other [employer] Other 08-19-2023 16:00-0500 Respiratory rate 18 /min Zara Ramo Other [employer] Other 08-19-2023 16:00-0500 SaO2% (BldA) [Mass fraction] 100 % Zara Ramo Other [employer] Other 08-19-2023 16:00-0500 Systolic blood pressure 170 mm[Hg] Zara Ramo Other [employer] Other 06-06-2022 16:17-0400 Diastolic blood pressure 89 mm[Hg] Immanuel Kuhn [facility] Phone[facility] [facility] DO Work Phone: 06-06-2022 16:17-0400 Systolic blood pressure 138 mm[Hg] Immanuel Kuhn Work Phone: [facility] DO Work Phone: 06-06-2022 15:45-0400 Body height 170.18 cm Immanuel Kuhn Work Phone: [facility] DO Work Phone: 06-06-2022 15:45-0400 Body mass index (BMI) [Ratio] 47.77 kg/m2 Immanuel Kuhn Work Phone: [facility] 250 DO Work Phone: 06-06-2022 15:45-0400 Body surface area Derived from formula 2.42 m2 Immanuel Kuhn Work Phone: [facility] [facility] DO Work Phone: 06-06-2022 15:45-0400 Body weight 138.35 kg Immanuel Kuhn Work Phone[facility] [facility] DO Work Phone: 06-06-2022 15:45-0400 Diastolic blood pressure 102 mm[Hg] Immanuel Kuhn Work Phone: [facility] 250 DO Work Phone: 06-06-2022 15:45-0400 Heart rate 71 /min Immanuel Kuhn Work Phone: [facility] 250 DO Work Phone: 06-06-2022 15:45-0400 Systolic blood pressure 160 mm[Hg] Immanuel Kuhn Work Phone: [facility] 250 DO Work Phone: Encounters Encounter Date Encounter Type Care Provider Facility Start: 12-06-2023 End: 12-06-2023 PAT [facility] [employer] Work Phone: Pre Anesthesia Comment on above: Pre-op evaluation (P rimary Dx); Iron deficiency; Migraine with aura and without status migrainosus, not intractable; First degree AV block; Acute hypokalemia; Oligodendroglioma of brain (HCC); Bipolar affective disorder, currently depressed, mild (HCC); Depressive disorder; Anxiety; History of bariatric surgery Start: 12-06-2023 End: 12-06-2023 Preprocedural examination done [facility] rimidi Work Phone: [facility] Work Phone: Start: 12-03-2023 End: 12-03-2023 ambulatory SHEILA L BRAUN Not Available Start: 11-28-2023 End: 11-28-2023 ambulatory SHEILA L BRAUN Not Available Start: 11-28-2023 End: 11-28-2023 ambulatory ELIOT WOLF Not Available Start: 11-21-2023 End: 11-21-2023 ambulatory SHEILA L BRAUN Not Available Start: 11-19-2023 Telephone encounter Mario encinas MD Work Phone: Endocrine Surgery Comment on above: Patient Question (Pt want to confirm one or two weeks for being off of work after surgery?) Start: 11-15-2023 End: 11-15-2023 ambulatory ARIANNA LORA Facility:[facility] Start: 11-15-2023 Telephone encounter Arianna avendano MD Work Phone: Endocrinology Comment on above: Critical Results Start: 11-14-2023 Telephone encounter Arianna avendano MD Work Phone: Endocrinology Comment on above: Returning Patient's Call; Results Start: 11-14-2023 End: 11-14-2023 ambulatory IMMANUEL KUHN Facility:[facility] Start: 11-14-2023 [...] Work Phone: Endocrine Surgery Comment on above: 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 Start: 10-24-2023 End: 10-24-2023 ambulatory SHEILA L BRAUN Not Available Start: 10-23-2023 End: 10-23-2023 ambulatory IMMANUEL DYSONER Facility:[facility] Start: 10-22-2023 End: 10-22-2023 ambulatory [facility] Facility:[facility] Start: 10-17-2023 End: 10-18-2023 ambulatory SHEILA L BRAUN Not Available Start: 10-11-2023 End: 10-12-2023 ambulatory ARMANDO MARISA Facility:[facility] Start: 10-10-2023 End: 10-10-2023 ambulatory SHEILA L BRAUN Not Available Start: 09-25-2023 End: 09-25-2023 ambulatory SHEILA L BRAUN Not Available Start: 09-25-2023 End: 09-25-2023 ambulatory MANASA DUNAWAY Not Available Start: 09-13-2023 Telephone encounter Barbara Dixon NP Work Phone: [facility] Start: 09-13-2023 End: 09-13-2023 ambulatory BARBARA DIXON Not Available Start: 09-13-2023 End: 09-13-2023 Office outpatient visit 25 minutes Barbara Dixon [employer] Work Phone: [facility] Comment on above: Acute bronchitis, un specified [...] with patient Mario Santiago MD Work Phone: [facility] Start: 09-11-2023 Bamboo flowsheet Sheila Rain tt [facility] Work Phone: [facility] Start: 09-11-2023 Bamboo flowsheet Sheila Josefa Rain tt [facility] Work Phone: [facility] Start: 09-11-2023 End: 09-11-2023 Social Work Sheila Braun [facility] Work Phone: [facility] Comment on above: Generalized anxiety disorder (CMS/HCC); Bipolar affective disorder, currently depressed, mild (CMS/HCC) Start: 09-10-2023 Chart abstracting Manasa Dunaway DPM Work Phone: [facility] Start: 09-10-2023 End: 09-10-2023 ambulatory IMMANUEL KUHN Facility:[facility] Start: 09-09-2023 End: 09-09-2023 ambulatory Zara Ralph Other [employer] Other Start: 09-09-2023 Office outpatient vi sit [...] 09-06-2023 End: 09-06-2023 ambulatory IMMANUEL Tatyana BAM Facility:[facility] Start: 09-05-2023 Telephone encounter Mario encinas MD Work Phone: General Surgery Comment on above: Appointment (Called patient and left a message that patient was added to 's schedule for a virtual appointment for 09/12 at 11AM per . Sent [employer] message and mailed out appointment reminder) Start: 08-30-2023 End: 08-30-2023 ambulatory VIKKI BALDERRAMA Facility:[facility] Start: 08-30-2023 End: 08-30-2023 ambulatory Immanuel Kuhn Facility:[facility] Start: 08-30-2023 End: 08-30-2023 ambulatory DO Immanuel Kuhn Work Phone: [facility] Work Phone: Start: 08-30-2023 End: 08-30-2023 Patient encounter procedure DO Immanuel Kuhn Work Phone: [facility] [address] [place] Work Phone: Start: 08-23-2023 End: 08-23-2023 ambulatory Zara Ramo Other [employer] Other Start: 08-23-2023 Telephone encounter Zara Ramo [facility] Start: 08-22-2023 End: 08-22-2023 ambulatory SHEILA BRAUN Not Available Start: 08-21-2023 End: 08-22-2023 ambulatory MANASA DUNAWAY Not Available Start: 08-20-2023 End: 08-20-2023 ambulatory VIKKI BADLERRAMA Facility:[facility] Start: 08-20-2023 End: 08-20-2023 ambulatory Vikki Balderrama MD Work Phone: Endocrinology Comment on above: 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) Start: 08-20-2023 End: 08-20-2023 Telemedicine consultation with patient Vikki Balderrama MD Work Phone: [facility] Start: 08-19-2023 End: 08-19-2023 ambulatory Zara Ramo Other [employer] Other Start: 08-19-2023 Office outpatient ne w 45 minutes Zara Ramo [facility] Start: 08-19-2023 End: 08-19-2023 Patient encounter procedure DO Immanuel Kuhn Work Phone: [facility] Work Phone: Start: 08-15-2023 End: 08-15-2023 ambulatory MANASA DUNAWAY Not Available Start: 08-14-2023 End: 08-14-2023 ambulatory SHEILA BRAUN Not Available Start: 08-07-2023 End: 08-07-2023 ambulatory ТАТЬЯНА CARTER Not Available Start: 08-02-2023 End: 08-03-2023 ambulatory JUAN BARON Not Available Start: 07-30-2023 End: 07-31-2023 ambulatory JUAN BARON Not Available Start: 07-24-2023 End: 07-24-2023 ambulatory JHONY GARICA Not Available Start: 07-22-2023 End: 07-22-2023 ambulatory [...] KUHN Facility:[facility] Start: 11-05-2022 ambulatory RAVINDRA LEMA [facility] Start: 10-23-2022 End: 10-24-2022 ambulatory ZAKIA BENSON Facility:[facility] Start: 10-22-2022 End: 10-23-2022 ambulatory RAVINDRA LEMA [facility] Start: 09-13-2022 End: 09-13-2022 ambulatory DO Immanuel Kuhn Work Phone: [facility] Work Phone: Start: 09-13-2022 End: 09-13-2022 Patient encounter procedure DO Immanuel Kuhn Work Phone: [facility] [address] [place] Work Phone: Start: 09-10-2022 End: 09-10-2022 ambulatory RAVINDRA [facility] Start: 09-07-2022 End: 09-08-[address] TE DARNELL . Facility:[facility] Start: 09-07-2022 End: 09-07-[address] TE DARNELL . Facility:[facility] Start: 09-07-2022 End: 09-07-2022 ambulatory DO Immanuel Kuhn Work Phone: [facility] Work Phone: Start: 09-07-2022 End: 09-07-2022 Patient encounter procedure DO Immanuel Kuhn Work Phone: [facility] [place] Work Phone: Start: 08-07-2022 Rx Renewal Immanuel Kuhn Work Phone: [facility] 250 DO Work Phone: Start: 07-31-2022 End: 02-21-2023 Preprocedural examination done Generic Provider [facility] Start: 06-06-2022 Office outpatient vi sit 25 minutes [facility] Kuhn [facility] Work Phone: Start: 06-06-[address] Della Kim Facility:[id number] Start: 01-04-2022 End: 01-05-[address] ESTHER ANGELES Facility: Start: 01-23-2018 End: 01-25-2018 Ambulatory Carmelo [facility] Facility:[facility] Patient encounter status Immanuel Kuhn Work Phone: [facility] 250 DO Work Phone: Procedures Date Procedure Procedure Detail Performing Clinician Start: 11-14-2023 Antibody screen ARIANNA DIEGO Comment on above: Order Comment: Speci men Type: BLOOD SPECIMENOrdering Facility: [facility] Address: [address] [place] [address] Performed By: #### T [id number] ####CC MAIN BLOOD BANKCLIA [id number] [address] OF [place] Start: 09-12-2023 ALL POTASSIUM Generic E xternal Data Provider Start: 09-06-2023 [facility] Generic External Data Provider Plan of Treatment Date Care Activity Detail Author Start: 12-18-2026 Screening for malignant neoplasm of cervix [facility] Healthcare Start: 04-05-2024 Influenza vaccination Influenza Vaccine (Season Ended) [facility] Start: 12-25-2023 End: 12-25-2023 Patient encounter procedure 12/25/2023 1:00 PM EDT Office Visit Endocrine Surgery [address] [place] [address] [place] [address] [place] [address] post op Endocrine Surgery Comment on above: post op Start: 12-10-2023 End: 12-10-2023 Admission to same day surgery center 12/10/2023 11:05 AM EDT - 12/10/2023 2:55 PM EDT Surgery Admitting [address] [place] [address] [place] [address] [place] [address] ROBOTIC LAPAROSCOPIC LEFT TRANSABDOMINAL ADRENALECTOMY Admitting Comment on above: ROBOTIC LAPAROSCOPIC LEFT TRANSABDOMINAL ADRENALECTOMY Start: 12-10-2023 End: 12-10-2023 Laparoscopy adrenalectomy prtl/compl tabdl ROBOTIC LAPAROSCOPIC LEFT TRANSABDOMINAL ADRENALECTOMY Adenoma of left adrenal gland 12/10/2023 11:05 AM EDT [facility] Start: 12-10-2023 Subsequent hospital visit by physician 12/10/2023 11:05 AM EDT Hospital Encounter Admitting [address] [place] [address] [place] [address] [place] [address] 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] Admitting Comment on above: 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] Start: 11-14-2023 End: 02-13-2024 Basic metabolic 2000 panel - Serum or Plasma BASIC METABOLIC PANEL Lab Routine Primary hyperaldosteronism (HCC) Expected: 11/14/2023, Expires: 02/13/2024 [facility] Work Phone: Comment on above: Expected: 11/14/2023, Expires: Start: 11-12-2023 End: 02-11-2024 CONFIRM BLOOD TYPE CONFIRM BLOOD TYPE Blood Bank Routine Adenoma of left adrenal gland Expected: 11/12/2023, Expires: 02/11/2024 [facility] Work Phone: Comment on above: Expected: 11/12/2023, Expires: Start: 11-12-2023 End: 02-11-2024 TYPE AND SCREEN,30 DAY TYPE AND SCREEN,30 DAY Blood Bank Routine Adenoma of left adrenal gland Expected: 11/12/2023, Expires: 02/11/2024 [facility] Work Phone: Comment on above: Expected: 11/12/2023, Expires: Start: 10-02-2023 End: 10-02-2023 Social Work 10/02/2023 12:00 PM EST Social Work [facility] [address] [place] [address] Sheila Braun, [facility] [address] [place] [address] [facility] Start: 09-25-2023 End: 09-25-2023 Social Work 09/25/2023 12:00 PM EST Social Work [facility] [address] [place] [address] Sheila Braun, [facility] [address] [place] [address] [facility] Start: 09-18-2023 End: 09-18-2023 Social Work 09/18/2023 12:00 PM EST Social Work [facility] [address] [place] [address] Sheila Braun, [facility] [address] [place] [address] [facility] Start: 09-11-2023 End: 09-11-2023 Social Work 09/11/2023 12:00 PM EST Social Work [facility] [address] [place] [address] Sheila Braun, [facility] [address] [place] [address] [facility] Start: 09-10-2023 End: 09-10-2023 Patient encounter procedure 09/10/2023 8:45 AM EST Office Visit [facility] [address] [place] [id number] Manasa Dunaway DPM [address] [place] [address] [facility] Start: 08-30-2023 Doppler ultrasonography of kidney US renal doppler [facility] Start: 08-30-2023 US Unspecified body region [facility] Start: 08-20-2023 End: 11-19-2023 Aldosterone [Mass/volume] in Serum or Plasma ALDOSTERONE BLD Lab Routine Adenoma of left adrenal gland Expected: 08/20/2023, Expires: 11/19/2023 [facility] Work Phone: Comment on above: Expected: 08/20/2023, Expires: Start: 08-20-2023 End: 11-19-2023 Comprehensive metabolic 2000 panel - Serum or Plasma COMP METABOLIC PANEL Lab Routine Adenoma of left adrenal gland Expected: 08/20/2023, Expires: 11/19/2023 [facility] Work Phone: Comment on above: Expected: 08/20/2023, Expires: 4 Start: 08-20-2023 End: 11-19-2023 Corticotropin [Mass/volume] in Plasma ACTH BLD Lab Routine Adenoma of left adrenal gland Expected: 08/20/2023, Expires: 11/19/2023 [facility] Work Phone: Comment on above: Expected: 08/20/2023, Expires: 4 Start: 08-20-2023 End: 11-19-2023 Cortisol [Mass/volume] in Serum or Plasma CORTISOL BLD Lab Routine Adenoma of left adrenal gland Expected: 08/20/2023, Expires: 11/19/2023 [facility] Work Phone: Comment on above: Expected: 08/20/2023, Expires: 4 Start: 08-20-2023 End: 11-19-2023 DHEA-S BLD DHEA-S BLD Lab Routine Adenoma of left adrenal gland Expected: 08/20/2023, Expires: 11/19/2023 [facility] Work Phone: Comment on above: Expected: 08/20/2023, Expires: Start: 08-20-2023 End: 11-19-2023 DIRECT RENIN PLASMA DIRECT RENIN PLASMA Lab Routine Adenoma of left adrenal gland Expected: 08/20/2023, Expires: 11/19/2023 [facility] Work Phone: Comment on above: Expected: 08/20/2023, Expires: Start: 08-20-2023 End: 11-19-2023 METANEPHRINES, FREE PLASMA METANEPHRINES, FREE PLASMA Lab Routine Adenoma of left adrenal gland Expected: 08/20/2023, Expires: 11/19/2023 [facility] Work Phone: Comment on above: Expected: 08/20/2023, Expires: Start: 08-05-2023 Behavioral Health Screening Behavioral Health Screening [facility] Start: 08-05-2023 Depression Assessment Depression Assessment [facility] Start: 07-04-2023 Urine screening for protein Diabetes: Urine Protein Screening [facility] Start: 04-05-2023 Covid-19 Vaccine ( season) Covid-19 Vaccine ( season) [facility] Start: 04-05-2023 Influenza vaccination Influenza Vaccine (#1) [facility] Start: 03-14-2023 FUV, Provider: Della Kim, Status: Pen, Time: 1:30 PM FUV, Provider: Della Kim, Status: Pen, Time: 1:30 PM [place] [address] DO Work Phone: Start: 04-06-2022 Hemoglobin A1c measurement Diabetes: Hemoglobin A1C [facility] Start: 2021 Screening for malignant neoplasm of cervix HPV Testing [facility] Start: 2012 Screening for malignant neoplasm of cervix [facility] Start: 2010 Hepatitis B Vaccine (1 of 3 - 19+ 3-dose series) Hepatitis B Vaccine (1 of 3 - 19+ 3-dose series) [facility] Start: 2010 Urine microalbumin profile DTaP,Tdap,Td Vaccine (1 - Tdap) [facility] Start: 2009 Hepatitis C screening Hepatitis C Screening [facility] Start: 2009 HIV screening HIV Screening [facility] Start: 2001 Glaucoma screening Diabetes: Retinopathy Screening [facility] Start: 1997 Pneumococcal vaccination Pneumococcal Vaccine (1 of 2 - PCV) [facility] Start: 02-02-1992 Covid-19 Vaccine (#1) Covid-19 Vaccine (#1) [facility] Start: 1991 Hepatitis B Vaccine (1 of 3 - 3-dose series) Hepatitis B Vaccine (1 of 3 - 3-dose series) [facility] Aldosterone [Mass/ti me] in 24 hour Urine ALDOSTERONE 24 HR, URINE Lab Routine Adenoma of left adrenal gland Ordered: 09/06/2023 [facility] Work Phone: Comment on above: Ordered: 09/06/2023 CATECHOLAMINES FRACTIONATED, URINE FREE CATECHOLAMINES FRACTIONATED, URINE FREE Lab Routine Adenoma of left adrenal gland Ordered: 09/06/2023 [facility] Work Phone: Comment on above: Ordered: 09/06/2023 CONFIRM BLOOD TYPE CONFIRM BLOOD TYPE Blood Bank Routine Adenoma of left adrenal gland 11/14/2023 10:37 AM EDT [facility] Work Phone: CREAT CLEAR 24 HOUR CREAT CLEAR 24 HOUR Lab Routine Adenoma of left adrenal gland Ordered: 09/06/2023 [facility] Work Phone: Comment on above: Ordered: 09/06/2023 CREATININE BLD CREATININE BLD L ab Routine Adenoma of left adrenal gland Ordered: 09/06/2023 [facility] Work Phone: Comment on above: Ordered: 09/06/2023 CREATININE CLEARANCE , UR 24HR CREATININE CLEARANCE, UR 24HR Lab Routine Adenoma of left adrenal gland Ordered: 09/06/2023 [facility] Work Phone: Comment on above: Ordered: 09/06/2023 End: 12-05-2024 ECG COMPLETE ECG COMPLETE ECG Routine Pre-op evaluation Iron deficiency Migraine with aura and without status migrainosus, not intractable 1 Occurrences starting 12/06/2023 until 12/05/2024 [facility] Work Phone: Comment on above: 1 Occurrences starting 12/06/2023 until 12/05/2024 Guidance for venous sampling of Vein IR VENOUS SAMPLING Radiology Routine Adenoma of left adrenal gland Ordered: 09/12/2023 [facility] Work Phone: Comment on above: Ordered: 09/12/2023 METANEPHRINES 24H UR METANEPHRIN ES 24H UR Lab Routine Adenoma of left adrenal gland Ordered: 09/06/2023 [facility] Work Phone: Comment on above: Ordered: 09/06/2023 REFER FOR ADMIT INTERVIEW REFER FOR ADMIT INTERVIEW Procedures Routine Adenoma of left adrenal gland Ordered: 11/12/2023 [facility] Work Phone: Comment on above: Ordered: 11/12/2023 TYPE AND SCREEN,30 DAY TYPE AND SCREEN,30 DAY Blood Bank Routine Adenoma of left adrenal gland 11/14/2023 10:36 AM EDT [facility] Work Phone: URINE FREE CORTISOL BY LC-MS/MS URINE FREE CORTISOL BY LC-MS/MS Lab Routine Adenoma of left adrenal gland Ordered: 09/06/2023 [facility] Work Phone: Comment on above: Ordered: 09/06/2023 [facility] Payers Date Payer Category Payer Self-pay [id number] 2016 Medicaid [id number] 1991 Unknown [id number] 2.16.840.1.949524.3.579.2.593 1991 Unknown [id number] 2.16.840.1.353595.3.579.2.593 1991 Unknown [id number] 2.16.840.1.243561.3.579.2.593 1991 Unknown [id number] 2.16.840.1.279548.3.579.2.593 1991 Unknown [id number] 2.16.840.1.898440.3.579.2.593 1991 Unknown [id number] 2.16.840.1.459921.3.579.2.356 1991 Unknown [id number] 2.16.840.1.793239.3.579.2.356 1991 Unknown [id number] 2.16.840.1.688381.3.579.2.1259 1991 Unknown [id number] 2.16.840.1.167350.3.579.2.1259 1991 Unknown [id number] 2.16.840.1.824351.3.579.2.1259 1991 Unknown [id number] 2.16.840.1.404098.3.579.2.1259 1991 Unknown [id number] 2.16.840.1.068731.3.579.2.1259 1991 Unknown [id number] 2.16.840.1.069547.3.579.2.1259 1991 Unknown [id number] 2.16.840.1.793690.3.579.2.1259 1991 Unknown [id number] 2.16.840.1.341683.3.579.2.1259 1991 Unknown [id number] 2.16.840.1.770020.3.579.2.1259 1991 Unknown [id number] 2.16.840.1.248775.3.579.2.1259 1991 Unknown [id number] 2.16.840.1.181332.3.579.2.1259 1991 Unknown [id number] 2.16.840.1.107717.3.579.2.1259 1991 Unknown [id number] 2.16.840.1.837676.3.579.2.1259 1991 Unknown [id number] 2.16.840.1.491974.3.579.2.1259 1991 Unknown [id number] 2.16.840.1.892029.3.579.2.1259 1991 Unknown [id number] 2.16.840.1.792163.3.579.2.1259 1991 Unknown [id number] 2.16.840.1.872208.3.579.2.1259 1991 Unknown [id number] 2.16.840.1.727480.3.579.2.9 1991 Unknown [id number] 2.16.840.1.240768.3.579.2.1259 1991 Unknown [id number] 2.16.840.1.662335.3.579.2.9 1991 Unknown [id number] 2.16.840.1.802272.3.579.2.9 1991 Unknown [id number] 2.16.840.1.785534.3.579.2.1259 1991 Unknown [id number] 2.16.840.1.428553.3.579.2.1259 1991 Unknown [id number] 2.16.840.1.945422.3.579.2.1259 1991 Unknown [id number] 2.16.840.1.695341.3.579.2.9 1991 Unknown [id number] 2.16.840.1.271969.3.579.2.1259 1991 Unknown [id number] 2.16.840.1.721198.3.579.2.1259 1991 Unknown [id number] 2.16.840.1.942982.3.579.2.1259 1959 Medicaid [id number] Unknown [employer] Unknown [employer] [id number] Unknown [id number] 2.16.840.1.718884.3.579.2.531 Social History Date Type Detail Facility Start: 01-05-2020 End: 08-20-2023 No illicit drug use No illicit drug use -[facility] [address] DO Work Phone: Comment on above: quit 2021; Start: 11-09-2019 End: 08-05-2022 Tobacco smoking status [facility] Smoker (finding) [facility] Start: 1991 Sex Assigned At Female F [facility] Start: 01-05-2020 End: 08-20-2023 Sex Assigned At [facility] [employer] Other Start: 01-05-2020 Tobacco smoking status [facility] Never smoked tobacco [facility] Start: 01-05-2020 End: 12-06-2023 Tobacco use and exposure Smokeless tobacco non-user [facility] Start: 01-05-2020 End: 12-06-2023 Alcohol intake Current drinker of alcohol (finding) [facility] National Score (1-100), lower number is lower risk 59 [facility] Start: 1990 Sex Assigned At Not on file [facility] Start: 08-27-2023 Gender identity Identifies as female gender (finding) [facility] Start: 02-21-2023 Tobacco smoking status NMIS Ex-smoker [facility] End: 08-05-2022 History of tobacco use Cigarette Smoker [facility] Start: 08-15-2023 End: 09-10-2023 Alcohol intake Ex-drinker (finding) [facility] Start: 12-23-2022 Alcohol Comment 1-2 cans of soda silvestre ly [facility] Start: 09-10-2023 Alcohol Comment caffeine intak e: 1-2 cans of soda [facility] Start: 12-06-2023 Tobacco smoking status NHIS Smokes tobacco daily [facility] Clinical Notes 09-10-2022 to 12-06-2023 Patient InstructionsKrissy Walters APRN.[facility] - 12/06/2023 8:55 AM EDTSKrissy morgan APRN.[facility] - 12/06/2023 8:55 AM EDTTelephone Encounter - Valarie Wharton - 11/19/2023 3:32 PM EDT Note Date & Type Note Facility 12-06-2023 Instructions Krissy Walters APRN.[facility] - 12/06/2023 9:33 AM EDT PATIENT PREOPERATIVE INSTRUCTIONS Mario Santiago MD has scheduled you for your procedure at this surgery center: [facility] [place] [facility] Scheduling Office: [phone] --[address] [place] [address]. Please read below carefully for your personalized instructions. Dietary Restrictions: - No solid food after midnight. - You may have 12 ounces of clear liquids (water, clear juices such as apple juice or gatorade, carbonated beverages, clear tea, black coffee, jello) until 2 hours before scheduled arrival at facility. Medications: Unless instructed differently below, stay on all of your medications until your surgery. If you start any new medications after today's visit, please contact your surgeon. Please take these medications the morning of surgery: Amlodipine(Norvasc), Buspirone(Buspar), Ativan If you start any new medications after today's visit, please contact the surgeon's office. Blood Thinning Medications: - Stop NSAIDS (Ibuprofen, Advil, Aleve, Motrin, Celebrex, Mobic, etc.) 7 days before surgery, as directed by your surgeon. - Stop Aspirin 7 days before surgery, as directed by your surgeon. - Stop Vitamin E, ALL multi-vitamins, herbals and dietary supplements 7 days before surgery. - You may take Tylenol (Acetaminophen) or any of your pain medications that do not contain aspirin or NSAIDS as needed. Important Reminders: - Candy, mints, and tobacco products are NOT permitted the morning of surgery. - Hearing aids, dentures and glasses may be worn the morning of surgery. - NO jewelry, body piercings, makeup, hairpins or contacts are to be worn the day of surgery. If you develop symptoms such as a fever, cold, or flu, or have other changes to your health within TWO DAYS of scheduled surgery or the morning of surgery, please contact the surgery center above. Personal Belongings: -Please have photo ID and insurance cards. -If you do not have a copy of advance directives on file with us, please bring a copy with you on the day of surgery. - Leave ALL valuables and money at home or with family members. For Outpatient Procedures: - YOU MUST HAVE A RESPONSIBLE GYPSUM ROOFER TAKE YOU HOME. A KILN CAR UNLOADER OR VEHICLE TRIMMER CANNOT BE MADE A RESPONSIBLE GYPSUM ROOFER. - We recommend that a responsible person stays with you overnight to take care of you. - You cannot stay in a hotel alone after outpatient surgery. You will not be permitted to have your surgery, if you do not have someone to take care of you. Arrival Time for Surgery: - To obtain your arrival time for surgery, call your physician's office the day before your surgery. - If your surgery is scheduled for Saturday, call the Saturday before. Your surgeon s liability claims adjuster will tell you what time to call the office. - If you have not reached the departmental liability claims adjuster by 5 P.M., call [phone] after 5 P.M. the day before your surgery. Please be aware that emergency situations arise, which may delay or change your surgical time. If this happens, we will notify you as soon as possible and regret any inconvenience. If you already have an Advance Directive, please fax a copy to [phone] or email to for it to be added to your chart. If you do not have an Advance Directive, you can find the appropriate form and more information at [email or web address]. We recommend that you complete the Advance Directive form found on the website and bring it with you the day of your surgery. It can be witnessed and scanned into your chart that day. Krissy Walters APRN.[facility] documented in this encounter [facility] 12-06-2023 History and physical note HISTORY AND PHYSICAL EXAMINATION SERVICE DATE: 12/06/2023 SERVICE TIME: 8:55 AM PRIMARY CARE PHYSICIAN: Immanuel Kuhn DO REASON FOR VISIT: Heidi Joy is a 33 year old female who is scheduled for Left - ROBOTIC LAPAROSCOPIC LEFT TRANSABDOMINAL ADRENALECTOMY at the request of Dr. Mario Santiago for consultation. My final recommendation will be communicated back to the requesting physician by way of shared medical record or letter. Assessment Patient has the following medical conditions which may affect sadia-operative course: Migraine with aura and without status migrainosus, not intractable Assessment: Imitrex as needed First degree AV block Assessment: stable Noted for several years on EKGs Acute hypokalemia Assessment: - potassium chloride (Klor-Con) 20 MEQ packet; Take 40 mEq by mouth in the morning and 40 mEq before bedtime. 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 No chemo or radiation Bipolar affective disorder, currently depressed, mild (HCC) Assessment: stable on medication Denies any suicidal ideation Following with Psychology Medication Management and changes being made Depressive disorder Assessment: stable on medication Denies any suicidal ideation Following with Psychology Medication Management and changes being made Anxiety Assessment: stable on medication Denies any suicidal ideation Following with Psychology Medication Management and changes being made History of bariatric surgery Assessment: History of Gastric bypass 12/2022 Body mass index is 28.66 kg/m . Ren Activity Status Index: METS: Walk indoors, such as around the house (1.75 METs) Do light work around the house, such as dusting or washing dishes (2.70 METs) Take care of self; that is eating, dressing, bathing, using the toilet (2.75 METs) Walk a block or two on level ground (2.75 METs) Do moderate work around the house, such as vacuuming, sweeping floors, or carrying in groceries (3.50 METs) Do yardwork, such as raking leaves, weeding, or pushing a power mower (4.50 METs) Climb a flight of stairs or walk up a hill (5.50 METs) DASI Score: 23.45 Patient denies any chest pain or undue shortness of breath with the above physical activity. Patient is totally dependent. Clinical Frailty Scale: 2. Well STOP-Bang Score: Has or is being treated for high blood pressure Denies snoring loudly Denies feeling tired, fatigued, or sleepy during the daytime Has not been observed to stop breathing or choking/gasping during sleep BMI less than or equal to 35 kg/m^2 Patient 50 years old or younger Does not have a large neck Non-male patient STOP-Bang Score: 1 [id number] Score: Age: <65 Sex: female CHF history: No Hypertension history: Yes Stroke/TIA/thromboembolism history: No Vascular disease history: No Diabetes history: Yes [id number] Score: 3 ARISCAT Score: Age: <=50 Preoperative SpO2: >=96% Respiratory infection in the last month: No Preoperative anemia: No Surgical incision: peripheral Duration of surgery: >3 hrs Emergency procedure: No ARISCAT Score: 23 ANESTHESIA FINDINGS: Intubation History: No history of difficult intubation. No abnormal airway history Significant Anesthesia Considerations: none Airway History: No history of difficult airway No abnormal airway history I - PHYSICAL EVALUATION AIRWAY Patient intubated: No. Tracheostomy tube not present Mallampati: II. TM distance: >3 FB. Neck ROM: full ROM without neurological symptoms. Mouth opening: adequate. Short neck: no. Thick neck: no Lu present: no Lip Bite Test: I Microretrognathia/Micronagthia/R ecessed Chin: No DENTAL Dental findings: teeth intact. II - ANESTHESIA PLAN Anesthetic plan additional comments: *PACC/TCI - anesthesia choice. Beta Clover Monitoring Plan Post Procedure Analgesic Plan Prepared for surgery: This patient is optimally prepared for surgery pending LABS and records . CONSULTS: Patient does not require consults for optimization at this time. The Following Tests/Procedures Have Been Initiated: Orders Placed This Encounter Comprehensive Metabolic Panel Standing Status: Future Number of Occurrences: 1 Standing Expiration Date: 03/06/2024 Potassium Standing Status: Future Number of Occurrences: 1 Standing Expiration Date: 03/06/2024 magnesium oxide (MAG-OX) 400 mg (241.3 mg magnesium) tablet Sig: Take 1 tablet by mouth every morning. spironolactone (ALDACTONE) 25 mg tablet Sig: Take 1 tablet by mouth every afternoon. LORazepam (ATIVAN) 1 mg tablet Sig: TAKE 1 - 2 TABLETS BY MOUTH PRIOR TO PROCEDURE amLODIPine (NORVASC) 10 mg tablet Sig: Take 1 tablet by mouth every afternoon. ECG COMPLETE Standing Status: Future Standing Expiration Date: 12/05/2024 Planned Anesthetic: Per anesthesia choice Subjective CHIEF COMPLAINT: Adrenal adenoma HPI: 33 year old female with Left benign adrenal adenoma. On a CT [...] is on 3 antihypertensives and K pills. Patient to get above surgical procedure PAST MEDICAL HISTORY Diagnosis Date Kidney stones Malignant brain tumor (HCC) 08/[address] Lema Microcytic anemia Otalgia of right ear PCOS (polycystic ovarian syndrome) Plantar fasciitis PAST SURGICAL HISTORY Procedure Laterality Date EXCIS SUPRATENT BRAIN TUMOR 2019 GASTRIC BYPASS HX 12/11/2022 PART EXCIS PLANTAR FASCIA Right 2016 PART EXCIS PLANTAR FASCIA Left 2022 FAMILY HISTORY Problem Relation Age of Onset Diabetes Mother Diabetes Father Heart disease Father Hypertension Father other (lung cancer) Paternal Grandmother SOCIAL HISTORY: Social History Tobacco Use Smoking status: Every Day Packs/day: .5 Types: Cigarettes Smokeless tobacco: Never Vaping Use Vaping Use: Never used Substance Use Topics Alcohol use: Yes Drug use: Never Prior to Admission medications as of 12/06/23 0924 Medication Sig Last Dose Taking magnesium oxide (MAG-OX) 400 mg (241.3 mg magnesium) tablet Take 1 tablet by mouth every morning. Taking Yes spironolactone (ALDACTONE) 25 mg tablet Take 1 tablet by mouth every afternoon. Taking Yes LORazepam (ATIVAN) 1 mg tablet TAKE 1 - 2 TABLETS BY MOUTH PRIOR TO PROCEDURE Taking Yes amLODIPine (NORVASC) 10 mg tablet Take 1 tablet by mouth every afternoon. Taking Yes busPIRone (BUSPAR) 10 mg tablet TAKE 1 TABLET (10 MG) BY MOUTH IN THE MORNING AND BEFORE BEDTIME Taking Yes gabapentin (NEURONTIN) 400 mg capsule 1 capsule. Taking Differently Yes lamoTRIgine (LAMICTAL) 150 mg tablet Take 150 mg by mouth. Taking Yes lurasidone (LATUDA) 60 mg tab tablet Take 60 mg by mouth. Taking Differently Yes REXULTI 1 mg tablet TAKE 1 TABLET BY MOUTH ONCE DAILY AT THE SAME TIME Taking Differently Yes potassium chloride ER (KLOR-CON) 20 mEq tablet Take 20 mEq by mouth. 4 meq 2 x daily Taking Yes SUMAtriptan (IMITREX) 100 mg tablet TAKE 1 TAB AT MIGRAINE ONSET, MAY REPEAT IN 2 HOURS NEEDED, MAX 2 TABS IN 24 HOURS Taking Yes zolpidem (AMBIEN) 10 mg Taking Yes Ferrous Sulfate 27 mg iron tab Take by mouth twice daily. Taking Yes No medication comments found. ALLERGIES No Known Allergies Covid Immunization Dates Overdue - Covid-19 Vaccine (2022-) Never done No completion, postpone, frequency change, or communication history exists for this topic. REVIEW OF SYSTEMS: PAIN ASSESSMENT: General: No weight loss, malaise or fevers. Neuro: Positive for Malignant Brain tumor removal in 2019 Migraines on Imitrex as needed No history of stroke, TIA or Seizures Respiratory: Positive for Tobacco Use Current Smoker 0.5 ppd , Negative for No history of current cough or dyspnea, or pneumonia in the past 6 weeks. No history of respiratory/pulmonary symptoms or problems Cardiovascular: Positive for: Hypertension + AV Block no history of angina, CHF, SC, cardiac surgery or stents. Denies rest pain, gangrene or revascularization/amputation for PVD. GI: History of Gastric bypass No history of GI symptoms or problems. 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 : Denies, Patient's last menstrual period was 11/27/2023. Endocrine: History of DM resolved with Gastric bypass/ weight loss SEE HPI Hematology: Iron deficiency anemia stable Oncology: History of Malignant Brain tumor Psych: Anxiety, Depression, Bipolar disorder Musculoskeletal: Negative for joint pain or swelling, back pain or muscle pain. Skin: Negative for lesions, rash and itching. Objective PHYSICAL EXAM: VITALS: BP 170/90 Pulse 67 Temp (Src) 98.1 (Temporal) Resp 16 Ht 5' 7 (1.70m) Wt 182 lb 15.7 oz (83.0kg) SpO2 99% LMP 11/27/2023 BMI 28.65 kg/(m^2). General: Alert and oriented, No acute distress Skin: Normal color, no rash, no lesions. HEENT: EOM, pupils equal, round and reactive. Cardiovascular: Normal S1 & S2, no rubs, murmurs or gallops. No JVD. Pulse regular. Lungs: Normal breath sounds, no wheezes or crackles. Abdomen: Soft, non-tender, no rigidity., Positive bowel sounds Extremities: No deformity, no edema or tenderness, no joint swelling or clubbing. Neurological: Normal cognition and motor skills. Gait normal. No weakness or sensory deficit. Pulses: Carotid and radial pulses normal +2. Diagnostic tests reviewed for today's visit: Lab Value Units Date High Low HB 14.7 g/dL 11/14/2023 15.5 11.5 HCT 43.9 % 11/14/2023 46.0 36.0 WBC 6.97 k/uL 11/14/2023 11.00 3.70 PLT 204 k/uL 11/14/2023 400 150 NA 146 mmol/L 11/15/2023 144 136 K 2.4 mmol/L 11/15/2023 5.1 3.7 GLUC 76 mg/dL 11/15/2023 99 74 BUN 9 mg/dL 11/15/2023 21 7 CREAT 0.84 mg/dL 11/15/2023 0.96 0.58 PTSEC 10.2 sec 10/22/2023 13.0 9.7 INR 1.0 no uni* 10/22/2023 1.3 0.9 APTT No results within date range. ALT 10 U/L 10/22/2023 38 7 AST 14 U/L 10/22/2023 35 13 TBILI 0.4 mg/dL 10/22/2023 1.3 0.2 TSH No results within date range. Lab Value Units Date High Low HCGQT No results within date range. UHCG No results within date range. HCG, BODY* No results within date range. Lab Value Units Date High Low ABORHD No results within date range. ABSCREEN No results within date range. No results found for: HBA1C Most recent labs All in Epic Instructions Given to Patient: Instructions located in the after visit summary. Patient given verbal and written preop instructions and voices comprehension and compliance. SIGNATURE: Krissy Walters APRN.CNP PATIENT NAME: Heidi Joy DATE: 12/06/2023 TIME: 9:19 AM [facility] 12-06-2023 History and physical note HISTORY AND PHYSICAL EXAMINATION SERVICE DATE: 12/06/2023 SERVICE TIME: 8:55 AM PRIMARY CARE PHYSICIAN: Immanuel Kuhn DO REASON FOR VISIT: Heidi Joy is a 33 year old female who is scheduled for Left - ROBOTIC LAPAROSCOPIC LEFT TRANSABDOMINAL ADRENALECTOMY at the request of Dr. Mario Santiago for consultation. My final recommendation will be communicated back to the requesting physician by way of shared medical record or letter. Assessment Patient has the following medical conditions which may affect sadia-operative course: Migraine with aura and without status migrainosus, not intractable Assessment: Imitrex as needed First degree AV block Assessment: stable Noted for several years on EKGs Acute hypokalemia Assessment: - potassium chloride (Klor-Con) 20 MEQ packet; Take 40 mEq by mouth in the morning and 40 mEq before bedtime. 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 No chemo or radiation Bipolar affective disorder, currently depressed, mild (HCC) Assessment: stable on medication Denies any suicidal ideation Following with Psychology Medication Management and changes being made Depressive disorder Assessment: stable on medication Denies any suicidal ideation Following with Psychology Medication Management and changes being made Anxiety Assessment: stable on medication Denies any suicidal ideation Following with Psychology Medication Management and changes being made History of bariatric surgery Assessment: History of Gastric bypass 12/2022 Body mass index is 28.66 kg/m . Ren Activity Status Index: METS: Walk indoors, such as around the house (1.75 METs) Do light work around the house, such as dusting or washing dishes (2.70 METs) Take care of self; that is eating, dressing, bathing, using the toilet (2.75 METs) Walk a block or two on level ground (2.75 METs) Do moderate work around the house, such as vacuuming, sweeping floors, or carrying in groceries (3.50 METs) Do yardwork, such as raking leaves, weeding, or pushing a power mower (4.50 METs) Climb a flight of stairs or walk up a hill (5.50 METs) DASI Score: 23.45 Patient denies any chest pain or undue shortness of breath with the above physical activity. Patient is totally dependent. Clinical Frailty Scale: 2. Well STOP-Bang Score: Has or is being treated for high blood pressure Denies snoring loudly Denies feeling tired, fatigued, or sleepy during the daytime Has not been observed to stop breathing or choking/gasping during sleep BMI less than or equal to 35 kg/m^2 Patient 50 years old or younger Does not have a large neck Non-male patient STOP-Bang Score: 1 [id number] Score: Age: <65 Sex: female CHF history: No Hypertension history: Yes Stroke/TIA/thromboembolism history: No Vascular disease history: No Diabetes history: Yes [id number] Score: 3 ARISCAT Score: Age: <=50 Preoperative SpO2: >=96% Respiratory infection in the last month: No Preoperative anemia: No Surgical incision: peripheral Duration of surgery: >3 hrs Emergency procedure: No ARISCAT Score: 23 ANESTHESIA FINDINGS: Intubation History: No history of difficult intubation. No abnormal airway history Significant Anesthesia Considerations: none Airway History: No history of difficult airway No abnormal airway history I - PHYSICAL EVALUATION AIRWAY Patient intubated: No. Tracheostomy tube not present Mallampati: II. TM distance: >3 FB. Neck ROM: full ROM without neurological symptoms. Mouth opening: adequate. Short neck: no. Thick neck: no Lu present: no Lip Bite Test: I Microretrognathia/Micronagthia/R ecessed Chin: No DENTAL Dental findings: teeth intact. II - ANESTHESIA PLAN Anesthetic plan additional comments: *PACC/TCI - anesthesia choice. Beta [place]over Monitoring Plan Post Procedure Analgesic Plan Prepared for surgery: This patient is optimally prepared for surgery pending LABS and records . CONSULTS: Patient does not require consults for optimization at this time. The Following Tests/Procedures Have Been Initiated: Orders Placed This Encounter Comprehensive Metabolic Panel Standing Status: Future Number of Occurrences: 1 Standing Expiration Date: 03/06/2024 Potassium Standing Status: Future Number of Occurrences: 1 Standing Expiration Date: 03/06/2024 magnesium oxide (MAG-OX) 400 mg (241.3 mg magnesium) tablet Sig: Take 1 tablet by mouth every morning. spironolactone (ALDACTONE) 25 mg tablet Sig: Take 1 tablet by mouth every afternoon. LORazepam (ATIVAN) 1 mg tablet Sig: TAKE 1 - 2 TABLETS BY MOUTH PRIOR TO PROCEDURE amLODIPine (NORVASC) 10 mg tablet Sig: Take 1 tablet by mouth every afternoon. ECG COMPLETE Standing Status: Future Standing Expiration Date: 12/05/2024 Planned Anesthetic: Per anesthesia choice Subjective CHIEF COMPLAINT: Adrenal adenoma HPI: 33 year old female with Left benign adrenal adenoma. On a CT [...] is on 3 antihypertensives and K pills. Patient to get above surgical procedure PAST MEDICAL HISTORY Diagnosis Date Kidney stones Malignant brain tumor (HCC) 08/[address] Lema Microcytic anemia Otalgia of right ear PCOS (polycystic ovarian syndrome) Plantar fasciitis PAST SURGICAL HISTORY Procedure Laterality Date EXCIS SUPRATENT BRAIN TUMOR 2019 GASTRIC BYPASS HX 12/11/2022 PART EXCIS PLANTAR FASCIA Right 2016 PART EXCIS PLANTAR FASCIA Left 2022 FAMILY HISTORY Problem Relation Age of Onset Diabetes Mother Diabetes Father Heart disease Father Hypertension Father other (lung cancer) Paternal Grandmother SOCIAL HISTORY: Social History Tobacco Use Smoking status: Every Day Packs/day: .5 Types: Cigarettes Smokeless tobacco: Never Vaping Use Vaping Use: Never used Substance Use Topics Alcohol use: Yes Drug use: Never Prior to Admission medications as of 12/06/23 0924 Medication Sig Last Dose Taking magnesium oxide (MAG-OX) 400 mg (241.3 mg magnesium) tablet Take 1 tablet by mouth every morning. Taking Yes spironolactone (ALDACTONE) 25 mg tablet Take 1 tablet by mouth every afternoon. Taking Yes LORazepam (ATIVAN) 1 mg tablet TAKE 1 - 2 TABLETS BY MOUTH PRIOR TO PROCEDURE Taking Yes amLODIPine (NORVASC) 10 mg tablet Take 1 tablet by mouth every afternoon. Taking Yes busPIRone (BUSPAR) 10 mg tablet TAKE 1 TABLET (10 MG) BY MOUTH IN THE MORNING AND BEFORE BEDTIME Taking Yes gabapentin (NEURONTIN) 400 mg capsule 1 capsule. Taking Differently Yes lamoTRIgine (LAMICTAL) 150 mg tablet Take 150 mg by mouth. Taking Yes lurasidone (LATUDA) 60 mg tab tablet Take 60 mg by mouth. Taking Differently Yes REXULTI 1 mg tablet TAKE 1 TABLET BY MOUTH ONCE DAILY AT THE SAME TIME Taking Differently Yes potassium chloride ER (KLOR-CON) 20 mEq tablet Take 20 mEq by mouth. 4 meq 2 x daily Taking Yes SUMAtriptan (IMITREX) 100 mg tablet TAKE 1 TAB AT MIGRAINE ONSET, MAY REPEAT IN 2 HOURS NEEDED, MAX 2 TABS IN 24 HOURS Taking Yes zolpidem (AMBIEN) 10 mg Taking Yes Ferrous Sulfate 27 mg iron tab Take by mouth twice daily. Taking Yes No medication comments found. ALLERGIES No Known Allergies Covid Immunization Dates Overdue - Covid-19 Vaccine ( season) Never done No completion, postpone, frequency change, or communication history exists for this topic. REVIEW OF SYSTEMS: PAIN ASSESSMENT: General: No weight loss, malaise or fevers. Neuro: Positive for Malignant Brain tumor removal in 2019 Migraines on Imitrex as needed No history of stroke, TIA or Seizures Respiratory: Positive for Tobacco Use Current Smoker 0.5 ppd , Negative for No history of current cough or dyspnea, or pneumonia in the past 6 weeks. No history of respiratory/pulmonary symptoms or problems Cardiovascular: Positive for: Hypertension + AV Block no history of angina, CHF, SC, cardiac surgery or stents. Denies rest pain, gangrene or revascularization/amputation for PVD. GI: History of Gastric bypass No history of GI symptoms or problems. 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 : Denies, Patient's last menstrual period was 11/27/2023. Endocrine: History of DM resolved with Gastric bypass/ weight loss SEE HPI Hematology: Iron deficiency anemia stable Oncology: History of Malignant Brain tumor Psych: Anxiety, Depression, Bipolar disorder Musculoskeletal: Negative for joint pain or swelling, back pain or muscle pain. Skin: Negative for lesions, rash and itching. Objective PHYSICAL EXAM: VITALS: BP 170/90 Pulse 67 Temp (Src) 98.1 (Temporal) Resp 16 Ht 5' 7 (1.70m) Wt 182 lb 15.7 oz (83.0kg) SpO2 99% LMP 11/27/2023 BMI 28.65 kg/(m^2). General: Alert and oriented, No acute distress Skin: Normal color, no rash, no lesions. HEENT: EOM, pupils equal, round and reactive. Cardiovascular: Normal S1 & S2, no rubs, murmurs or gallops. No JVD. Pulse regular. Lungs: Normal breath sounds, no wheezes or crackles. Abdomen: Soft, non-tender, no rigidity., Positive bowel sounds Extremities: No deformity, no edema or tenderness, no joint swelling or clubbing. Neurological: Normal cognition and motor skills. Gait normal. No weakness or sensory deficit. Pulses: Carotid and radial pulses normal +2. Diagnostic tests reviewed for today's visit: Lab Value Units Date High Low HB 14.7 g/dL 11/14/2023 15.5 11.5 HCT 43.9 % 11/14/2023 46.0 36.0 WBC 6.97 k/uL 11/14/2023 11.00 3.70 PLT 204 k/uL 11/14/2023 400 150 NA 146 mmol/L 11/15/2023 144 136 K 2.4 mmol/L 11/15/2023 5.1 3.7 GLUC 76 mg/dL 11/15/2023 99 74 BUN 9 mg/dL 11/15/2023 21 7 CREAT 0.84 mg/dL 11/15/2023 0.96 0.58 PTSEC 10.2 sec 10/22/2023 13.0 9.7 INR 1.0 no uni* 10/22/2023 1.3 0.9 APTT No results within date range. ALT 10 U/L 10/22/2023 38 7 AST 14 U/L 10/22/2023 35 13 TBILI 0.4 mg/dL 10/22/2023 1.3 0.2 TSH No results within date range. Lab Value Units Date High Low HCGQT No results within date range. UHCG No results within date range. HCG, BODY* No results within date range. Lab Value Units Date High Low ABORHD No results within date range. ABSCREEN No results within date range. No results found for: HBA1C Most recent labs All in Epic Instructions Given to Patient: Instructions located in the after visit summary. Patient given verbal and written preop instructions and voices comprehension and compliance. SIGNATURE: Krissy Walters APRN.CNP PATIENT NAME: Heidi Joy DATE: 12/06/2023 TIME: 9:19 AM documented in this encounter [facility] 11-19-2023 Miscellaneous Notes Pt want to confirm one or two weeks for being off of work after surgery? documented in this encounter [facility] 11-15-2023 Miscellaneous Notes Called patient: she states she does not have any symptoms. She was advises to go to the ER. She verbalized understanding. Griselda Vann RN Endo [facility] Lab Contacted Nurses 2:09 PM Critical Value Potassium 2.4 received from Lab (Daryl) at 2:05. Notified Jasmyne at 2:11. Griselda Vann RN Endo [facility] documented in this encounter [facility] 11-14-2023 Miscellaneous Notes Images from the original [...] MD Clinical Fellow PGY-5 Endocrinology and Metabolism [place] Pager:[phone] documented in this encounter [facility] 10-25-2023 Miscellaneous Notes AVS lateralized to the left adrenal gland with a ratio of 35:1. I recommended laparoscopic left adrenalectomy lateral transabdominal or posterior approach. Will decide on the day of the surgery. Will schedule her surgery. Mario Santiago MD documented in this encounter [facility] 09-13-2023 Telephone encounter Note Contacted pt, went over results above, pt understood and had no further questions at the time of call [facility] 09-13-2023 Miscellaneous Notes Contacted pt, went over results above, pt understood and had no further questions at the time of call Please let pt know her BP was elevated at office visit today. She should monitor her BP at home and to ER if any increase from her baseline readings, otherwise follow up with PCP documented in this encounter [facility] 09-13-2023 Telephone encounter Note Please let pt know her BP was elevated at office visit today. She should monitor her BP at home and to ER if any increase from her baseline readings, otherwise follow up with PCP [facility] 09-13-2023 History of Present illness Narrative HPI: [...] tablet; Refill: 0 documented in this encounter [facility] 09-12-2023 Note HNO ID: [id number] Author: MARIO SANTIAGO MD Service: ? Author Type: Physician Type: Progress Notes Filed: 09/12/2023 10:17 Note Text: This was a virtual visit. I have communicated my name and active licensure. The patient's identity and physical location were verified at the time of this visit. Either the patient or their legal phone representative has been informed of the risks and benefits of -- and alternatives to -- treatment through a remote evaluation and consents to proceed with the evaluation remotely. Endocrinology Metabolism [place] [facility] Mario Santiago M.D. Section of Endocrine Surgery and Advanced Laparoscopic Surgery [address] [place] [address], [place] [id number] ENDOCRINE SURGERY NEW CONSULTATION NAME: Heidi Mirza [place] [facility] NO: [id number] : 1990 Surgeon: Dr. Mario Santiago REFERRING PROVIDER: Vikki Balderrama [id number] [place] [id number] The patient was referred by the above [...] which included prep (more content not included)... [facility] 09-12-2023 History of Present illness Narrative This was a virtual visit. I have communicated my name and active licensure. The patient's identity and physical location were verified at the time of this visit. Either the patient or their legal phone representative has been informed of the risks and benefits of -- and alternatives to -- treatment through a remote evaluation and consents to proceed with the evaluation remotely. Endocrinology Metabolism [place] [facility] Mario Santiago M.D. Section of Endocrine Surgery and Advanced Laparoscopic Surgery [address] [place] [address] ENDOCRINE SURGERY NEW CONSULTATION NAME: Heidi Joy CLINIC NO: [id number] : 1990 Surgeon: Dr. Mario Santiago REFERRING PROVIDER: Vikki Balderrama [id number] [place] [address] The patient was referred by the above [...] which included preparing to see the patient, [id number] patient care, completing clinical documentation, obtaining and/or reviewing separately obtained history, counseling and educating the patient/family/caregiver, ordering medications, tests, or procedures, communicating with other HCPs (not separately reported), independently interpreting results (not separately reported), communicating results to the patient/family/caregiver, and care coordination (not separately reported). Sincerely, Mario Santiago MD 09/12/2023 CC: Vikki Balderrama [id number] [facility] [id number] documented in this encounter [facility] 09-09-2023 Evaluation note Encounter Date Diagnosis Assessment Notes Sep, Hypokalemia (ICD-10 - E87.6) She has hypertension with hypokalemia and high 24-hour urinary aldosterone level consistent with primary hyperaldosteronism. Her 24-hour urinary potassium may be low due to the critically low serum potassium. She is also reported to have elevated serum aldosterone. She was seen by the endocrine at [facility] and now referred to the surgery for [...] - E27.9) Continue follow-up with endocrine at [facility]. Sep, Other Patient was advised due to the primary hyperaldosteronism she can follow-up endocrine. She can refer to our office in future if needed. [employer] Other 02-02-2024 Miscellaneous Notes* Addendum Note - Valarei Wharton - 09/06/2023 8:59 AM ESTAddended by: VALARIE WHARTON on: 09/06/2023 08:59 AM Modules accepted: Orders * Telephone Encounter - Valarie Wharton - 09/06/2023 8:51 AM EST 09/06/2023 INTAKE PENDING.NEED 24HR URINE-LFT MSG ON VMX AND SENT MYCHART MSG. 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 Author Type: Physician Type: Progress Notes Filed: 08/25/2023 22:12 Note Text: Endocrinology and Metabolism [place] Initial Clinic Visit Note Virtual Visit (Audio/Visual) [...] visit. Either the patient or their legal phone representative has been informed of the risks [...] and nephrology. She recently met with a manufacturing engineer supervisor and was recommended to undergo some work-up. [...] imaging is around 5- (more content not included)...[facility]01-16-2024 Instructions* Patient Instructions* Vikki Balderrama MD - [...] one hormone. These hormones include: Cortisol - Hay syndrome or subclinical hypercortisolism are conditions caused [...] to let me know [facility] History of Present illness Narrative* Vikki Balderrama MD - 08/20/2023 1:43 PM EST Endocrinology and Metabolism [place] Initial Clinic Visit Note Virtual Visit (Audio/Visual) I have discussed the nature of this visit with the patient which will occur via [facility] (Phone, Virtual Visit) and he agrees to proceed with this interaction . I have communicated my name and active licensure. The patient's identity and physical location wereverified at the time of this visit. Either the patient or their legal phone representative has been informed of the risks [...] and nephrology. She recently met with a manufacturing engineer supervisor and was recommended to undergo some work-up. [...] oriented x 3 Previous laboratory results: 08/07/2022: Domniguez 10 Plasma renin activity 0.4 Imaging: CT [...] agreed to get the labs done at [facility], I provided her with the lab phone number to make an appointment. Vikki Balderrama MD [facility] [place] - [facility] [phone] Medical Decision Making: Problems: Moderate: 1+ chronic illnesses with change Data: Unique source(s) for external note(s) reviewed: 1 Unique test result(s) reviewed: 3+ Unique test(s) ordered: 3+ Medical Decision Making Level: 4 - Moderate [facility] Evaluation note* Encounter Date Diagnosis Assessment Notes Treatment Notes Treatment Clinical Notes Aug, Hypokalemia (ICD-10 - E87.6) It was a pleasure to see Mrs. Joy in our office for evaluation and management of hypokalemia. As you know she has a longstanding hypokalemia and metabolic alkalosis and hypertension. Differential diagnoses are broad and include primary hyperaldosteronism, Hay syndrome, Gettleman syndrome and Bartter syndrome. I [...] of the adrenal nodule with serial imaging. [employer] Other 04-03-2023 NoteIn person visit Chief complaint: follow up for prior right frontal glioma [place]: 32 y/o woman - she had prior [...] repeat MRI brain w/wout contrast. Ravindra Lema MDUC [facility]02-06-2023 NoteIn person visit Chief complaint: known olidodendroglioma [place]: 32 y/o Left handed - she does not work. 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 She had migraines and high blood [...] right frontal oligodendroglioma - had surgery about 2018 - most recent imaging was about 2020. [...] after the MRI is completed. Ravindra Lema MDUnPremier Health Atrium Medical CenterChief complaint Narrative - ReportedHEIDI JOY is being seen for a consultation for. POC Dr. Benson, [facility] Bariatrics- Bariatric sxMP-[facility] [address] DO Work Phone: Evaluation noteNo assessment information available [facility] Work Phone: Evaluation noteNo InformationNoPowered [employer] Other Evaluation note* Diagnosis Adenoma of left adrenal gland- Primary Benign neoplasm of adrenal gland documented [facility]* Diagnosis Adenoma of left adrenal gland- Primary Benign neoplasm of adrenal gland [facility] Diagnosis Primary hyperaldosteronism (HCC)- Primary Hyperaldosteronism, unspecified Adenoma of left adrenal gland Benign neoplasm of adrenal gland [facility] Diagnosis Generalized anxiety disorder (CMS/HCC) Generalized anxiety disorder Bipolar affective disorder, currently depressed, mild (CMS/HCC) Bipolar I disorder, most recent episode (or current) depressed, mild documented in this encounter [facility] Healthcare[facility] note* Diagnosis Acute bronchitis, unspecified organism- Primary documented in this encounter [facility] Healthcare[facility] note* Diagnosis Adenoma of left adrenal gland- Primary Benign neoplasm of adrenal gland Adenoma of left adrenal gland Benign neoplasm of adrenal gland [facility] Diagnosis Primary hyperaldosteronism (HCC)- Primary Hyperaldosteronism, unspecified Adenoma of left adrenal gland Benign neoplasm of adrenal gland [facility]* Diagnosis Pre-op evaluation- Primary Preoperative examination, unspecified Iron deficiency Iron deficiency anemia, unspecified Migraine with aura and without status migrainosus, not intractable Migraine with aura, without mention of intractable migraine without mention of status migrainosus First degree AV block First degree atrioventricular block Acute hypokalemia Hypopotassemia Oligodendroglioma of brain (HCC) Malignant neoplasm of brain, unspecified site Bipolar affective disorder, currently depressed, mild (HCC) Bipolar I disorder, most recent episode (or current) depressed, mild Depressive disorder Depressive disorder, not elsewhere classified Anxiety Anxiety state, unspecified History of bariatric surgery Bariatric surgery status Adenoma of left adrenal gland Benign neoplasm of adrenal gland * Assessment & Plan Note - Krissy Walters APRN.CNP - 12/06/2023 9:46 AM EDTAssociated Problem(s): History of bariatric surgery Assessment: History of Gastric bypass 12/2022 Body mass index is 28.66 kg/m . * Assessment & Plan Note - Krissy Walters APRN.CNP - 12/06/2023 9:46 AM EDTAssociated Problem(s): Anxiety Assessment: stable on medication Denies any suicidal ideation Following with Psychology Medication Management and changes being made * Assessment & Plan Note - Krissy Walters APRN.CNP - 12/06/2023 9:46 AM EDTAssociated Problem(s): Depressive disorder Assessment: stable on medication Denies any suicidal ideation Following with Psychology Medication Management and changes being made * Assessment & Plan Note - Krissy Walters APRN.CNP - 12/06/2023 9:45 AM EDTAssociated Problem(s): Bipolar affective disorder, currently depressed, mild (HCC) Assessment: stable on medication Denies any suicidal ideation Following with Psychology Medication Management and changes being made * Assessment & Plan Note - Krissy Walters APRN.CNP - 12/06/2023 9:44 AM EDTAssociated Problem(s): 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 No chemo or radiation * Assessment & Plan Note - Krissy Walters APRN.CNP - 12/06/2023 9:39 AM EDTAssociated Problem(s): Iron deficiency Assessment: with 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 Patient has chronically low potassium - has received infusions and goes to ED when states she feelslike it is really low Potassium Date Value Ref Range Status 11/15/2023 2.4 (LL) 3.7 - 5.1 mmol/L Final 11/14/2023 2.3 (LL) 3.7 - 5.1 mmol/L Final 10/22/2023 2.8 (L) 3.7 - 5.1 mmol/L Final * Assessment & Plan Note - Krissy Walters APRN.CNP - 12/06/2023 9:04 AM EDTAssociated Problem(s): First degree AV block Assessment: stable Noted for several years on EKGs * Assessment & Plan Note - Krissy Walters APRN.CNP - 12/06/2023 9:04 AM EDTAssociated Problem(s): Migraine with aura and without status migrainosus, not intractable Assessment: Imitrex as needed documented [facility] Narrative - Reported* Type Description Date [...] 2 DIALBETES MYRA LITUS WITHOUT COMPLICATION, WITHOUT CORRECTION CURRENT USE OF INSULIN Medical History MICROSYTIC [...] GASTRIC BYPASS 12/2022 Hospitalization History SEE ABOVE [employer] Other History general Narrative - Reported* Type [...] 2 DIALBETES MYRA LITUS WITHOUT COMPLICATION, WITHOUT GUT CARRIER CURRENT USE OF INSULIN Medical History MICROSYTIC ANEMIA Medical History BIPOLAR AFFECTIVE DISORDER, CURR ENTLY DEPRESSED, MILD Medical History CANNABIS ABUSE Medical History MALIGNANT NEOPLASM OF BRAIN Medical History Potassium infusions weekly at [facility] Surgical History brain tumor removed malignant 0 Surgical History DILATION AND CURETTAGE ESOPHAGO GASTRODUODENOSCOPY Surgical History INGROWN TOENAIL Surgical History ANKLE SCOPE PLANTAR FASCIOTOMY 2016 Surgical History RIGHT FRONTAL LOBEECTOMY 2018 Surgical History ENDOSCOPIC PLANTAR FASCIOTOMY 2 023 Surgical History GASTRIC BYPASS 12/2022 Hospitalization History SEE ABOVE Hospitalization History [place] for low potassi um 08/2023 [employer] Other History of Present illness Narrative* Patient [...] medication 9 4. Follow-up in 9 months -[facility] [address] DO Work Phone: Reason for referral (narrative)* Outpatient Procedure (Routine) - Pending Review Specialty Diagnoses / Procedures Referred By Contac t Referred To [facility] Diagnoses Pre-op evaluation Iron deficiency Migraine with aura and without status migrainosus, not intractable Procedures ECG COMPLETE ECG ROUTINE ECG W/LEAST 12 LDS W/I&R Krissy Walters APRN.CNP [address] [place] [address] [facility] [place] [facility] [place] [id number] Referral ID Status Reason Start Date Expiration Date Visits Requested Visits Authorized [id number] Pending Review Auto-Generat ed Referral 12/06/2023 12/05/2024 1 1 [facility] Summary Purpose Family History No Family History [...] PACC - PRE ANESTHESIA CONSULTATION CLINIC OFFICE/OUTPATIENT [facility] 60 MINUTES Natasha Chase MD [address] [place] [address] Referral ID Status Reason Start Date Expiration Date Visits Requested Visits Authorized [id number] Authorized PCP Requested Referral 11/12/2023 11/04/2024 1 1 Additional Source Comments INFORMATION SOURCE (unrecogn ized section and content) DATE CREATED AUTHOR 01/29/2018 [facility] DATE CREATED AUTHOR AUTHOR'S ORGANIZ ATION 03/21/2020 [facility] DATE CREATED AUTHOR AUTHOR'S ORGANIZ ATION 09/12/[address] [facility] DATE CREATED AUTHOR AUTHOR'S ORGANIZ ATION 10/06/2021 [facility] DATE CREATED AUTHOR AUTHOR'S ORGANIZ ATION 06/07/2022 [employer] DATE CREATED AUTHOR AUTHOR'S ORGANIZ ATION 11/19/2022 [facility] DATE CREATED AUTHOR AUTHOR'S ORGANIZ ATION 12/14/2022 [facility] DATE CREATED AUTHOR AUTHOR'S ORGANIZ ATION 03/19/2023 [facility] DATE CREATED AUTHOR AUTHOR'S ORGANIZ ATION 11/20/2023 [facility] DATE CREATED AUTHOR AUTHOR'S ORGANIZ ATION 12/03/2023 [facility] DATE CREATED AUTHOR AUTHOR'S ORGANIZ ATION 12/04/2023 [facility] dical Specialists EPIC Care Teams (unrecognized sec tion and content) Team Status: Inactive Member Role Status Dates Immanuel Kuhn DO Primary Care Provider Active Tiarra Prakash NP-C Attending Provider Active Team Status: Active Member Role Status Dates Immanuel Kuhn DO Primary Care Provider Active Team Status: Inactive Member Role Status Dates Immanuel Kuhn DO Primary Care Provider Active Manasa Rhodes DPM Attending Provider Active Pipe Roller Relationship Specialty Start Date End Date Immanuel Kuhn DO [address] [place] [address] PCP - General Family Medicine 10/23/12 Esther Angeles MD [address] [place] [address] Referring Obstetrics 01/28/20 Татьяна Carter, PA-C [address] [place] [address] Referring Physician Blast Hole Driller 08/08/23 Team Status: Inactive Member Role Status Dates Zara Ralph MD Attending Provider Active Start : August 19, 2023 End: August 19, 2023 Team Status: Inactive Member Role Status Dates Immanuel Kuhn DO Primary Care Provider Active St art: August 30, 2023 End: August 30, 2023 Zara Ralph MD Attending Provider Active Start : August 30, 2023 End: August 30, 2023 Pipe Roller Relationship Specialty Start Date End Date Immanuel Kuhn DO [address] [place] [address] PCP - General Family Medicine 10/23/12 Esther Angeles MD [address] [place] [address] Referring Obstetrics 01/28/20 Татьяна Carter PA-C [address] [place] [address] Referring Physician Blast Hole Driller 08/08/23 Pipe Roller Relationship Specialty Start Date End Date Immanuel Kuhn DO [address] [place] [address] PCP - General Family Medicine 10/23/12 Esther Angeles MD [address] [place] [address] Referring Obstetrics 01/28/20 Татьяна Carter PA-C [address] [place] [address] Referring Physician Blast Hole Driller 08/08/23 Pipe Roller Relationship Specialty Start Date End Date Immanuel Kuhn DO [address] [place] [address] PCP - General Family Medicine 12/25/22 Татьяна Carter PA [address] [place] [address] PCP - [facility] 02/02/23 Pipe Roller Relationship Specialty Start Date End Date Immanuel Kuhn DO [address] [place] [address] PCP - General Family Medicine 10/23/12 Esther Angeles MD [address] [place] [address] Referring Obstetrics 01/28/20 Татьяна Carter, PA-C [address] [place] [address] Referring Physician Blast Hole Driller 08/08/23 Pipe Roller Relationship Specialty Start Date End Date Immanuel Kuhn DO [address] [place] [address] PCP - General Family Medicine 12/25/22 Татьяна Carter PA [address] [place] [address] PCP - [facility] 02/02/23 Pipe Roller Relationship Specialty Start Date End Date Immanuel Kuhn DO [address] [place] [address] PCP - General Family Medicine 12/25/22 Татьяна Carter PA [address] [place] [address] PCP - [facility] 02/02/23 Pipe Roller Relationship Specialty Start Date End Date Immanuel Kuhn DO [address] [place] [address] PCP - General Family Medicine 12/25/22 Татьяна Carter PA [address] [place] [address] PCP - [facility] 02/02/23 Pipe Roller Relationship Specialty Start Date End Date Immanuel Kuhn DO [address] [place] [address] PCP - General Family Medicine 10/23/12 Esther Angeles MD [address] [place] [address] Referring Obstetrics 01/28/20 Татьяна Carter PA-C [address] [place] [address] Referring Physician Blast Hole Driller 08/08/23 Pipe Roller Relationship Specialty Start Date End Date Immanuel Kuhn DO [address] [place] [address] PCP - General Family Medicine 10/23/12 Esther Angeles MD [address] [place] [address] Referring Obstetrics 01/28/20 Татьяна Carter PA-C [address] [place] [address] Referring Physician Blast Hole Driller 08/08/23 Pipe Roller Relationship Specialty Start Date End Date Immanuel Kuhn DO [address] [place] [address] PCP - General Family Medicine 10/23/12 Esther Angeles MD [address] [place] [address] Referring Obstetrics 01/28/20 Татьяна Carter PA-C [address] [place] [address] Referring Physician Blast Hole Driller 08/08/23 Pipe Roller Relationship Specialty Start Date End Date Immanuel Kuhn DO [address] [place] [address] PCP - General Family Medicine 10/23/12 Esther Angeles MD [address] [place] [address] Referring Obstetrics 01/28/20 Татьяна Carter PA-C [address] [place] [address] Referring Physician Blast Hole Driller 08/08/23 Pipe Roller Relationship Specialty Start Date End Date Immanuel Kuhn DO [address] [place] [address] PCP - General Family Medicine 10/23/12 Esther Angeles MD [address] [place] [address] Referring Obstetrics 01/28/20 Татьяна Carter PA-C [address] [place] [address] Referring Physician Blast Hole Driller 08/08/23 Goals (unrecognized section and content) Goals [...] for 09/12 at 11AM per . 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 Source Comments (unrecognize d section and content) In the event this informatio n is protected by the Federal Confidentiality of Alcohol and Drug Abuse Patient Records regulations: The Federal rules restrict any use of the information to criminally investigate or prosecute any alcohol or drug abuse patient.[facility] CenterIn the event this information is protected by the Federal Confidentiality of Alcohol and Drug Abuse Patient Records regulations: The Federal rules restrict any use of the information to criminally investigate or prosecute any alcohol or drug abuse patient.[facility] CenterIn the event this information is protected by the Federal Confidentiality of Alcohol and Drug Abuse Patient Records regulations: The Federal rules restrict any use of the information to criminally investigate or prosecute any alcohol or drug abuse patient.[facility] CenterIn the event this information is protected by the Federal Confidentiality of Alcohol and Drug Abuse Patient Records regulations: The Federal rules restrict any use of the information to criminally investigate or prosecute any alcohol or drug abuse patient.[facility] CenterIn the event this information is protected by the Federal Confidentiality of Alcohol and Drug Abuse Patient Records regulations: The Federal rules restrict any use of the information to criminally investigate or prosecute any alcohol or drug abuse patient.[facility] CenterIn the event this information is protected by the Federal Confidentiality of Alcohol and Drug Abuse Patient Records regulations: The Federal rules restrict any use of the information to criminally investigate or prosecute any alcohol or drug abuse patient.[facility] CenterIn the event this information is protected by the Federal Confidentiality of Alcohol and Drug Abuse Patient Records regulations: The Federal rules restrict any use of the information to criminally investigate or prosecute any alcohol or drug abuse patient.[facility] CenterIn the event this information is protected by the Federal Confidentiality of Alcohol and Drug Abuse Patient Records regulations: The Federal rules restrict any use of the information to criminally investigate or prosecute any alcohol or drug abuse patient.[facility] CenterIn the event this information is protected by the Federal Confidentiality of Alcohol and Drug Abuse Patient Records regulations: The Federal rules restrict any use of the information to criminally investigate or prosecute any alcohol or drug abuse patient.[facility] CenterIn the event this information is protected by the Federal Confidentiality of Alcohol and Drug Abuse Patient Records regulations: The Federal rules restrict any use of the information to criminally investigate or prosecute any alcohol or drug abuse patient.[facility] FOR RECORDS PERTAINING TO PATIENTS [...] BE BASED ON THE PRIMARY CLINICAL RECORDS. [employer] [facility]. provides no warranty or guarantee of the accuracy or completeness of information in this document.
--- NOTE | 2023-12-07 03:15 | ED_ITS ---
HPI - Recheck/Abnormal Lab/Rx General Chief Complaint: Recheck/Abnormal Lab/Rx Stated Complaint: Potassium Time Seen by Provider: 12/07/23 02:49 Source: patient Mode of arrival: walk-in Limitations: no limitations History of Present Illness HPI narrative: 33-year-old female presents for low potassium. She has chronically low potassium because of an adrenal tumor that she is going to have removed in a few days in [place]. She had blood work performed preoperatively and got a phone call that her potassium was 2.4 and she was told to go to the emergency department by her surgeon. She has no symptoms. Related Data Home Medications ?Medication ?Instructions ?Recorded ?Confirmed buspirone 10 mg tablet 10 mg PO .amhs 08/23/23 11/16/23 lamotrigine 150 mg tablet 150 mg PO Q12H 08/23/23 11/16/23 lurasidone 60 mg tablet 60 mg PO .QD 08/23/23 11/16/23 magnesium oxide 400 mg (241.3 mg 400 mg PO .qd 08/23/23 11/16/23 magnesium) tablet Previous Rx's ?Medication ?Instructions ?Recorded amlodipine 10 mg tablet 10 mg PO DAILY #30 tabs 08/24/23 potassium chloride 20 mEq 20 meq PO BID #60 tabs 08/24/23 tablet,extended release(part/cryst) potassium chloride 20 mEq oral 40 meq PO DAILY 5 days #5 ea 11/16/23 packet Allergies Allergy/AdvReac Type Severity Reaction Status Date / Time No Known Drug Allergies Allergy Verified 12/07/23 02:51 Review of Systems ROS Narrative A ten point review of systems is negative except as noted above. [facility] Medical History (Updated 12/07/23 @ 04:23 by Dwight Pastrana MD) Left adrenal mass ?E27.8 - Other specified disorders of adrenal gland (ICD-10) Acute hypokalemia ?E87.6 - Hypokalemia (ICD-10) Brain tumor ?D49.6 - Neoplasm of unspecified behavior of brain (ICD-10) Plantar fasciitis of left foot ?M72.2 - Plantar fascial fibromatosis (ICD-10) Plantar fasciitis of right foot ?M72.2 - Plantar fascial fibromatosis (ICD-10) Surgical History (Updated 08/27/23 @ 00:00 by ) History of gastric bypass ?Z98.84 - Bariatric surgery status (ICD-10) Bariatric surgery status ?Z98.84 - Bariatric surgery status (ICD-10) Family History (Updated 08/23/23 @ 20:41 by Joan Abdalla) Mother Family history of cancer Family history of diabetes mellitus Brother Family history of diabetes mellitus Father Family history of diabetes mellitus Family history of hypertension Family history of myocardial infarction Social History (Updated 08/23/23 @ 20:44 by Joan Abdalla) Smoking status: Current every day smoker Second hand tobacco smoke exposure: No Non-prescribed substance use: denies use Previous occupational history: unemployed Known occupational exposures/hazards: No Highest level of school completed/degree received: high school graduate Do you want help with school or training: No Are you now , , , , never or living with a partner: never In a typical week, how many times do you talk on the telephone with family, friends, or neighbors: 3 or more times per week How often do you get together with friends or relatives: once per week How often do you attend sabianist or mormonism services: never Do you belong to any clubs or organizations such as sabianist groups unions, [employer] or athletic groups, or school groups: no Total score: 1 Score interpretation: A score of less than or equal to 1 indicates the most socially isolated. Little interest or pleasure in doing things: several days Feeling down, depressed, or hopeless: several days Feel stressed/tense/nervous/anxious/difficulty sleeping: very much Life stressors: unknown source of stress Due to disability, difficulty making decisions: No Do you think of yourself as: straight/heterosexual Gender Identity: female Exam Narrative Exam Narrative: Nurses note and vital signs reviewed and patient is not hypoxic. General: The patient appears well and in no apparent distress. Patient is resting comfortably on cart. Skin: Warm, dry, no pallor noted. There is no rash noted. Head: Normocephalic, atraumatic Eye: Normal conjunctiva, no drainage Ears, Nose, Mouth, and Throat: oral mucosa is moist. Nares patent. Cardiovascular: Regular Rate and Rhythm Respiratory: Patient is in no distress, no accessory muscle use, lungs are clear to auscultation, no wheezing, rales or rhonchi Back: non-tender GI: Soft and nontender Musculoskeletal: The patient has no evidence of calf tenderness, no pitting edema, symmetrical pulses noted bilaterally Neurological: A&O, normal speech Psychiatric: Cooperative Constitutional Vital Signs, click to edit/add: Last Vital Signs Temp 97.7 F 12/07/23 02:51 Pulse 66 12/07/23 02:51 Resp 16 12/07/23 02:51 BP 177/97 H 12/07/23 02:51 Pulse Ox 95 12/07/23 02:51 O2 Del Method Room Air 12/07/23 02:51 Course Vital Signs Vital signs: Vital Signs Temperature 97.7 F 12/07/23 02:51 Pulse Rate 66 12/07/23 02:51 Respiratory Rate 16 12/07/23 02:51 Blood Pressure 177/97 H 12/07/23 02:51 Pulse Oximetry 95 12/07/23 02:51 Oxygen Delivery Method Room Air 12/07/23 02:51 Temperature 97.7 F 12/07/23 02:51 Pulse Rate 66 12/07/23 02:51 Respiratory Rate 16 12/07/23 02:51 Blood Pressure 177/97 H 12/07/23 02:51 Pulse Oximetry 95 12/07/23 02:51 Oxygen Delivery Method Room Air 12/07/23 02:51 MDM - Recheck/Abnormal Lab/Rx MDM Narrative Medical decision making narrative: Potassium is 2.0 and she was given IV and oral supplementation. She will be having this surgery early next week for the adrenal issue. Treatment diagnosis and follow-up were discussed with the patient Differential Diagnosis Differential diagnosis: Likely other (Hypokalemia) Lab Data Attestation: I reviewed the patient's lab results. Labs: Lab Results 12/07/23 Range/Units 03:05 Sodium 144 (136-145) mmol/L Potassium 2.0 L* (3.5-5.1) mmol/L Chloride 104 (98-107) mmol/L Carbon Dioxide 31.5 (21.0-32.0) mmol/L Anion Gap 10.5 BUN 19.0 H (7.0-18.0) mg/dL Creatinine 0.69 (0.55-1.02) mg/dL Est GFR ( Amer) >60 (>=60) Est GFR (Non-Af Amer) >60 (>=60) BUN/Creatinine Ratio 27.5 Glucose 86 (74-106) mg/dL Calcium 9.4 (8.5-10.1) mg/dL ECG Data Attestation: I personally reviewed and interpreted this ECG as follows: (EKG on my interpretation shows normal sinus rhythm with first-degree block) Discharge Plan Discharge Stand Alone Forms: Portal Instructions Chief Complaint: Recheck/Abnormal Lab/Rx Clinical Impression: Chronic hypokalemia Patient Disposition: Home, Self-Care Time of Disposition Decision: 04:22 Condition: Good Mode of Transportation: Private Vehicle Prescriptions / Home Meds: No Action buspirone 10 mg tablet 10 mg PO .amhs lamotrigine 150 mg tablet 150 mg PO Q12H lurasidone 60 mg tablet 60 mg PO .QD magnesium oxide 400 mg (241.3 mg magnesium) tablet 400 mg PO .qd amlodipine 10 mg tablet 10 mg PO DAILY Qty: 30 0RF potassium chloride 20 mEq tablet,ER particles/crystals 20 meq PO BID Qty: 60 0RF potassium chloride 20 mEq packet 40 meq PO DAILY 5 Days Qty: 5 0RF Print Language: Maori Instructions: Hypokalemia (ED) Referrals: PAUL KIRBY [Primary Care Provider] - 1 week
--- NOTE | 2023-12-07 03:17 | ECG_ITS ---
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
[2023-12-07 03:31] LABS: Anion Gap 10.5; BUN Creatinine Ratio 27.5; Calcium 9.4 mg/dL (8.5-10.1); Carbon Dioxide 31.5 mmol/L (21.0-32.0); Chloride 104 mmol/L (98-107); Estimated GFR (African America >60 (>=60); Estimated GFR (Non-African Ame >60 (>=60); Glucose 86 mg/dL (74-106); Sodium 144 mmol/L (136-145)
[2023-12-07] MEDS: POTASSIUM BICARBONATE/CIT 25 MEQ TABLET EFF 50 MEQ PO (03:49)
[2023-12-07] MEDS: POTASSIUM CHLORIDE IN WATER 10 MEQ/100 ML PIGGYBACK 100 MEQ IV ×4 (03:49→06:57)
== END 2023-12-07 08:04 | disposition home or self-care (01) ==
PROVIDERS: Emergency Provider Emergency Medicine; PCP Family Medicine
DX: E87.6 Hypokalemia (principal); Z79.899 Other long term (current) drug therapy; E27.8 Other specified disorders of adrenal gland; Z98.84 Bariatric surgery status; F17.210 Nicotine dependence, cigarettes, uncomplicated
CPT/HCPCS: 36415; 80048; 93005; 96365; 96366; 96376; 99284

== ENCOUNTER 2024-01-23 11:02 | Emergency (ER) | payer OTHER, SELFPAY ==
[2024-01-23] VITALS (10 sets, daily range): BP systolic 146–164; BP diastolic 84–103; PULSE 49–77; TEMP 36.6; O2SAT 100; BMI 27.4
--- NOTE | 2024-01-23 11:18 | ECG_ITS ---
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
--- NOTE | 2024-01-23 11:18 | ED.ABDPAIN1 ---
HPI - Abdominal Pain General Chief Complaint: Abdominal Pain Stated Complaint: ABDOMINAL PAIN Time Seen by Provider: 01/23/24 11:08 Source: patient Mode of arrival: walk-in Limitations: no limitations History of Present Illness HPI narrative: 33-year-old female presents for abdominal pain. She has had it continuously for 5 days. It is in the upper mid abdomen and none in the lower abdomen. No constipation trauma or fever. She has not been vomiting. She has chronically low potassium and states that she is scheduled to have an adrenal mass removed at the [facility] on January 27. The pain is mild to moderate and continuous. Related Data Home Medications ?Medication ?Instructions ?Recorded ?Confirmed buspirone 10 mg tablet 10 mg PO .amhs 08/23/23 01/23/24 lamotrigine 150 mg tablet 150 mg PO Q12H 08/23/23 01/23/24 lurasidone 60 mg tablet 60 mg PO .QD 08/23/23 01/23/24 magnesium oxide 400 mg (241.3 mg 400 mg PO .qd 08/23/23 01/23/24 magnesium) tablet Previous Rx's ?Medication ?Instructions ?Recorded amlodipine 10 mg tablet 10 mg PO DAILY #30 tabs 08/24/23 potassium chloride 20 mEq 20 meq PO BID #60 tabs 08/24/23 tablet,extended release(part/cryst) potassium chloride 20 mEq oral 40 meq PO DAILY 5 days #5 ea 11/16/23 packet Allergies Allergy/AdvReac Type Severity Reaction Status Date / Time No Known Drug Allergies Allergy Verified 12/07/23 02:51 Review of Systems ROS Narrative A ten point review of systems is negative except as noted above. [facility] Medical History (Updated 01/23/24 @ 12:05 by Dwight Pastrana MD) Left adrenal mass ?E27.8 - Other specified disorders of adrenal gland (ICD-10) Acute hypokalemia ?E87.6 - Hypokalemia (ICD-10) Brain tumor ?D49.6 - Neoplasm of unspecified behavior of brain (ICD-10) Plantar fasciitis of left foot ?M72.2 - Plantar fascial fibromatosis (ICD-10) Plantar fasciitis of right foot ?M72.2 - Plantar fascial fibromatosis (ICD-10) Surgical History (Updated 08/27/23 @ 00:00 by ) History of gastric bypass ?Z98.84 - Bariatric surgery status (ICD-10) Bariatric surgery status ?Z98.84 - Bariatric surgery status (ICD-10) Family History (Updated 08/23/23 @ 20:41 by Joan Abdalla) Mother Family history of cancer Family history of diabetes mellitus Brother Family history of diabetes mellitus Father Family history of diabetes mellitus Family history of hypertension Family history of myocardial infarction Social History (Updated 08/23/23 @ 20:44 by Joan Abdalla) Smoking status: Current every day smoker Second hand tobacco smoke exposure: No Non-prescribed substance use: denies use Previous occupational history: unemployed Known occupational exposures/hazards: No Highest level of school completed/degree received: high school graduate Do you want help with school or training: No Are you now , , , , never or living with a partner: never In a typical week, how many times do you talk on the telephone with family, friends, or neighbors: 3 or more times per week How often do you get together with friends or relatives: once per week How often do you attend protestant or roman catholic services: never Do you belong to any clubs or organizations such as protestant groups unions, [employer] or athletic groups, or school groups: no Total score: 1 Score interpretation: A score of less than or equal to 1 indicates the most socially isolated. Little interest or pleasure in doing things: several days Feeling down, depressed, or hopeless: several days Feel stressed/tense/nervous/anxious/difficulty sleeping: very much Life stressors: unknown source of stress Due to disability, difficulty making decisions: No Do you think of yourself as: straight/heterosexual Gender Identity: female Exam Narrative Exam Narrative: Nurses note and vital signs reviewed and patient is not hypoxic. General: The patient appears well and in no apparent distress. Patient is resting comfortably on cart. Skin: Warm, dry, no pallor noted. There is no rash noted. Head: Normocephalic, atraumatic Eye: Normal conjunctiva, no drainage Ears, Nose, Mouth, and Throat: oral mucosa is moist. Nares patent. Cardiovascular: Regular Rate and Rhythm Respiratory: Patient is in no distress, no accessory muscle use, lungs are clear to auscultation, no wheezing, rales or rhonchi Back: non-tender GI: Normal bowel sounds, very minimal tenderness to palpation in the epigastric area without any masses. No lower abdominal tenderness Musculoskeletal: The patient has no evidence of calf tenderness, no pitting edema, symmetrical pulses noted bilaterally Neurological: A&O, normal speech Psychiatric: Cooperative Constitutional Vital Signs, click to edit/add: Last Vital Signs Temp 97.8 F 01/23/24 11:13 Pulse 77 01/23/24 11:13 Resp 18 01/23/24 11:13 BP 164/103 H 01/23/24 11:13 Pulse Ox 100 01/23/24 11:13 O2 Del Method Room Air 01/23/24 11:13 Course Vital Signs Vital signs: Vital Signs Temperature 97.8 F 01/23/24 11:13 Pulse Rate 77 01/23/24 11:13 Respiratory Rate 18 01/23/24 11:13 Blood Pressure 164/103 H 01/23/24 11:13 Pulse Oximetry 100 01/23/24 11:13 Oxygen Delivery Method Room Air 01/23/24 11:13 Temperature 97.8 F 01/23/24 11:13 Pulse Rate 77 01/23/24 11:13 Respiratory Rate 18 01/23/24 11:13 Blood Pressure 164/103 H 01/23/24 11:13 Pulse Oximetry 100 01/23/24 11:13 Oxygen Delivery Method Room Air 01/23/24 11:13 MDM - Abdominal Pain MDM Narrative Medical decision making narrative: Labs are essentially normal. Potassium today is 3.8. She was recommended Tums or Maalox and will follow-up with her doctor as needed. Treatment diagnosis and follow-up were discussed with the patient. Differential Diagnosis Differential diagnosis: Likely abdominal pain, constipation, gastroenteritis and pancreatitis Lab Data Attestation: I reviewed the patient's lab results. Labs: Lab Results 01/23/24 Range/Units 11:15 WBC 8.4 (4.0-11.0) 10^3/uL RBC 4.60 (4.20-5.40) 10^6/uL Hgb 13.5 (12.0-16.0) g/dL Hct 42.0 (36.0-48.0) % MCV 91.3 (81.0-99.0) fL MCH 29.3 (26.7-34.0) pg MCHC 32.1 (29.9-35.2) g/dL RDW 14.1 (11.0-15.0) % Plt Count 187 (150-450) 10^3/uL MPV 12.1 (9.5-13.5) fL Neut % (Auto) 66.4 (43.0-75.0) % Lymph % (Auto) 25.6 (20.5-60.0) % Bremer % (Auto) 4.7 (1.7-12.0) % Eos % (Auto) 2.6 (0.9-7.0) % Baso % (Auto) 0.6 (0.2-2.0) % Neut # (Auto) 5.6 (1.4-6.5) 10^3/uL Lymph # (Auto) 2.2 (1.2-3.8) 10^3/uL Bremer # (Auto) 0.4 (0.3-0.8) 10^3/uL Eos # (Auto) 0.2 (0.0-0.7) 10^3/uL Baso # (Auto) 0.1 (0.0-0.1) 10^3/uL Abs Immat Gran (auto) 0.01 (0.00-0.03) 10^3/uL Imm/Tot Granulo (auto) 0.1 (0.0-0.5) % Sodium 141 (136-145) mmol/L Potassium 3.8 (3.5-5.1) mmol/L Chloride 108 H (98-107) mmol/L Carbon Dioxide 24.9 (21.0-32.0) mmol/L Anion Gap 11.9 BUN 22.0 H (7.0-18.0) mg/dL Creatinine 0.84 (0.55-1.02) mg/dL Est GFR ( Amer) >60 (>=60) Est GFR (Non-Af Amer) >60 (>=60) BUN/Creatinine Ratio 26.2 Glucose 79 (74-106) mg/dL Calcium 8.9 (8.5-10.1) mg/dL Total Bilirubin 0.9 (0.2-1.0) mg/dL Direct Bilirubin 0.2 (0.0-0.2) mg/dL AST 15 (15-37) U/L ALT 19 (14-59) U/L Alkaline Phosphatase 131 H (46-116) U/L Total Protein 7.1 (6.4-8.2) g/dL Albumin 3.9 (3.4-5.0) g/dL Globulin 3.2 g/dL Albumin/Globulin Ratio 1.2 Amylase 60 (25-115) U/L Lipase 55.0 (16.0-77.0) U/L Discharge Plan Discharge Stand Alone Forms: Portal Instructions Chief Complaint: Abdominal Pain Clinical Impression: Abdominal pain Patient Disposition: Home, Self-Care Time of Disposition Decision: 12:05 Condition: Good Mode of Transportation: Private Vehicle Prescriptions / Home Meds: No Action buspirone 10 mg tablet 10 mg PO .amhs lamotrigine 150 mg tablet 150 mg PO Q12H lurasidone 60 mg tablet 60 mg PO .QD magnesium oxide 400 mg (241.3 mg magnesium) tablet 400 mg PO .qd amlodipine 10 mg tablet 10 mg PO DAILY Qty: 30 0RF potassium chloride 20 mEq tablet,ER particles/crystals 20 meq PO BID Qty: 60 0RF potassium chloride 20 mEq packet 40 meq PO DAILY 5 Days Qty: 5 0RF Print Language: Romansh Instructions: Abdominal Pain (ED) Referrals: PAUL KIRBY [Primary Care Provider] - 1 week
[2024-01-23 11:44] LABS: Basophils Absolute Auto 0.1 10^3/uL (0.0-0.1); Basophils Percent Auto 0.6 % (0.2-2.0); Eosinophils Absolute Auto 0.2 10^3/uL (0.0-0.7); Eosinophils Percent Auto 2.6 % (0.9-7.0); Hemoglobin 13.5 g/dL (12.0-16.0); Immature Granulocytes Abs Auto 0.01 10^3/uL (0.00-0.03); Immature Granulocytes Pct Auto 0.1 % (0.0-0.5); Lymphocytes Absolute Auto 2.2 10^3/uL (1.2-3.8); Lymphocytes Percent Auto 25.6 % (20.5-60.0); Mean Corpuscular HGB Conc 32.1 g/dL (29.9-35.2); Mean Corpuscular Hemoglobin 29.3 pg (26.7-34.0); Mean Corpuscular Volume 91.3 fL (81.0-99.0); Mean Platelet Volume 12.1 fL (9.5-13.5); Monocytes Absolute Auto 0.4 10^3/uL (0.3-0.8); Monocytes Percent Auto 4.7 % (1.7-12.0); Neutrophils Absolute Auto 5.6 10^3/uL (1.4-6.5); Neutrophils Percent Auto 66.4 % (43.0-75.0); Platelet Count 187 10^3/uL (150-450); Red Cell Distribution Width 14.1 % (11.0-15.0); White Blood Count 8.4 10^3/uL (4.0-11.0)
[2024-01-23 12:01] LABS: Alanine Aminotransferase 19 U/L (14-59); Albumin Globulin Ratio 1.2; Albumin Level 3.9 g/dL (3.4-5.0); Alkaline Phosphatase 131 U/L (46-116); Amylase 60 U/L (25-115); Anion Gap 11.9; Aspartate Amino Transferase 15 U/L (15-37); BUN Creatinine Ratio 26.2; Bilirubin Direct 0.2 mg/dL (0.0-0.2); Bilirubin Total 0.9 mg/dL (0.2-1.0); Calcium 8.9 mg/dL (8.5-10.1); Carbon Dioxide 24.9 mmol/L (21.0-32.0); Chloride 108 mmol/L (98-107); Estimated GFR (African America >60 (>=60); Estimated GFR (Non-African Ame >60 (>=60); Globulin 3.2 g/dL; Glucose 79 mg/dL (74-106); Potassium 3.8 mmol/L (3.5-5.1); Sodium 141 mmol/L (136-145); Total Protein 7.1 g/dL (6.4-8.2)
== END 2024-01-23 12:21 | disposition home or self-care (01) ==
PROVIDERS: Emergency Provider Emergency Medicine; PCP Family Medicine
DX: R10.9 Unspecified abdominal pain (principal); F17.200 Nicotine dependence, unspecified, uncomplicated
CPT/HCPCS: 36415; 80048; 80076; 82150; 83690; 85025; 93005; 99284

== ENCOUNTER 2024-06-05 17:00 | Emergency (ER) | payer OTHER, SELFPAY ==
--- OUTSIDE RECORDS SUMMARY | 2024-06-05 17:12 | XMS_ITS | CCD ---
Author Organization [facility] Care Team Providers Care Threshing Operator Name Role Phone Spasic, Carmelo Unavailable Unavailable Spasic, Carmelo Unavailable Unavailable IMMANUEL KUHN Unavailable Unavailable Immanuel Kuhn Unavailable Unavailable Unavailable DO Immanuel Kuhn Primary Care Provider NETTIE Prakash Attending Provider REJI Rhodes Attending Provider [phone] RAVINDRA LEMA Referring Unavailable RAVINDRA LEMA Attending Unavailable RAVINDRA LEMA Attending Unavailable PAY ., DR TIWARI Attending Unavailable PAY ., DR TIWARI Consulting Unavailable PAY ., DR TIWARI Admitting Unavailable MIRTA, DR MILLER Primary Care Unavailable PAY ., DR TIWARI Attending Unavailable PAY ., DR TIWARI Consulting Unavailable MIRTA, DR MILLER Primary Care Unavailable PAY ., DR TIWARI Admitting Unavailable LALORZAKIA Admitting Unavailable LAZAKIA CHACKO Attending Unavailable ZAKIA BENSON Consulting Unavailable MIRTA, DR MILLER Primary Care Unavailable MIRTA, DR MILLER Primary Care Unavailable MISHernesto, DR INIGUEZ Admitting Unavailable MARLENY, DR INIGUEZ Attending Unavailable MISC, DR INIGUEZ Consulting Unavailable BRIDGETTE, DR MURO Admitting Unavailable BRIDGETTE, DR MURO Attending Unavailable BRIDGETTE, DR MURO Consulting Unavailable MIRTA, DR MILLER Primary Care Unavailable Judy, Dr. Hull Attending Unavaila darryn Kuhn, Dr. Immanuel Toure Primary Care Unavaila darryn Kim, Dr. Hull Attending Unavaila darryn Kim, Dr. Hull Referring Unavaila darryn Kuhn, Dr. Immanuel Toure Primary Care Unavaila ble Ramo, Zara Unavailable Immanuel Kuhn DO Primary Care Provider Angeles MD, Penola P Unavailable Татьяна Carter PA-C Unavailable DO Immanuel Kuhn Primary Care Provider [phone] MD Zara Ralph Attending Provider [phone] Immanuel Kuhn DO Primary Care Provider Татьяна Angeles Unavailable Immanuel Kuhn DO Primary Care Provider [phone] DO Immanuel Kuhn Primary Care Provider JANA Dawson Emergency Provider Immanuel Kuhn Primary Care Unavailable Eliot Dawson Attending Unavailable Eliot Dawson Admitting Unavailable Zara Ralph Admitting Unavailable Immanuel Kuhn Primary Care Unavailable Zara Ralph Attending Unavailable ELIOT GARCÍA Primary Care Physician Kvng Mraie Attending Unavaila ble Frank, Kvng Duran Admitting Unavaila Kvng Caputo Attending Unavaila ble IMMANUEL KUHN Primary Care Unavailable PAMELA, MARIO Admitting Unavailable PAMELA, MARIO Attending Unavailable IMMANUEL KUHN Primary Care Unavailable GLORY SALCEDO Referring Unavailable ASHOUR, TAREK Referring Unavailable IMMANUEL KUHN Primary Care Unavailable ASHOUR, TAREK Referring Unavailable IMMANUEL KUHN Primary Care Unavailable ASHOUR, TAREK Referring Unavailable IMMANUEL KUHN Primary Care Unavailable IMMANUEL KUHN Primary Care Unavailable PAMELAMARIO Attending Unavailable ASHOUR, XIMENAEK Attending Unavailable IMMANUEL KUHN Primary Care Unavailable ASHOUR, TAREK Referring Unavailable IMMANUEL KUHN Primary Care Unavailable ASHOUR, TAREK Referring Unavailable IMMANUEL KUHN Primary Care Unavailable ASHOUR, TAREK Referring Unavailable IMMANUEL KUHN Primary Care Unavailable ASHOUR, TAREK Referring Unavailable IMMANUEL KUHN Primary Care Unavailable ASHOUR, TAREK Referring Unavailable IMMANUEL KUHN Primary Care Unavailable IMMANUEL KUHN Primary Care Unavailable IMMANUEL KUHN Primary Care Unavailable VEERAMACHANENI, RAVALI Referring Unavailab IMMANUEL Garcia Primary Care Unavailable VEERAMACHANENI, RAVALI Referring Unavailab le VEERAMACHANENI, JULYALI Attending Unavailab IMMANUEL Garcia Primary Care Unavailable ASHOUR, TAREK Referring Unavailable IMMANUEL KUHN Primary Care Unavailable ARIANNA LORA Referring Unavailable IMMANUEL KUHN Primary Care Unavailable ASHOUR, TAREK Referring Unavailable IMMANUEL KUHN Primary Care Unavailable ASHOUR, TAREK Referring Unavailable IMMANUEL KUHN Primary Care Unavailable GURAJALA, MIGEL HONEY Attending Unavailabl e KASSIDY, MIGEL HONEY Admitting Unavailabl e IMMANUEL KUHN Primary Care Unavailable VEERAMACHANENI, RAVALI Referring Unavailab le IMMANUEL KUHN Primary Care Unavailable PAMELA, MARIO Attending Unavailable MIMANUEL KUHN Primary Care Unavailable VEERAMACHANENI, RAVALI Referring Unavailab dong COTJACOB, ARMANDO Referring Unavailable IMMANUEL KUHN Primary Care Unavailable NATASHA CHASE Referring Unavailable IMMANUEL KUHN Primary Care Unavailable VEERAMACHANENI, RAVALI Attending Unavailab le IMMANUEL KUHN Primary Care Unavailable VEERAMACHANENI, RAVALI Referring Unavailab le IMMANUEL KUHN Primary Care Unavailable IMMANUEL KUHN Primary Care Unavailable IMMANUEL KUHN Primary Care Unavailable IMMANUEL KUHN Primary Care Unavailable PAMELA, MARIO Admitting Unavailable PAMELA, MARIO Attending Unavailable IMMANUEL KUHN Primary Care Unavailable GLORY SALCEDO Referring Unavailable IMMANUEL KUHN Primary Care Unavailable PAMELA, MARIO Referring Unavailable BHAVNA WALTERS Referring Unavailable IMMANUEL KUHN Primary Care Unavailable ASHOUR, TAREK Attending Unavailable IMMANUEL KUHN Primary Care Unavailable ASHOUR, TAREK Referring Unavailable IMMANUEL KUHN Primary Care Unavailable COTJACOB, ARMANDO Referring Unavailable IMMANUEL KUHN Primary Care Unavailable Татьяна Angeles Unavailable Jose SOTO Attending Unavailable Kvng Marie Attending Unavaila ble SarKvng santos Attending Unavaila Kvng Caputo Referring Unavaila JUAN Watt Attending Unavailable MANASA DUNAWAY Referring Unavailable ТАТЬЯНА CARTER Attending Unavailable IMMANUEL KUHN Referring Unavailable SHEILA BRAUN Attending Unavailable MANASA DUNAWAY Attending Unavailable MANASA DUNAWAY Referring Unavailable SHEILA BRAUN Attending Unavailable MANASA DUNAWAY Attending Unavailable SHEILA BRAUN Attending Unavailable BARBARA DIXON Attending Unavailable MANASA DUNAWAY Attending Unavailable BRAUN, SHEILA L Attending Unavailable BRAUN, SHEILA L Attending Unavailable BRAUN, SHEILA L Attending Unavailable BRAUN, SHEILA L Attending Unavailable BRAUN, SHEILA L Attending Unavailable IMMANUEL KUHN Referring Unavailable CUTLER, ELIOT L Attending Unavailable MIRTAIMMANUEL YOUNG Referring Unavailable BRAUN, SHEILA L Attending Unavailable BRAUN, SHEILA L Attending Unavailable BRAUN, SHEILA L Attending Unavailable BRAUN, SHEILA L Attending Unavailable CUTLER, ELIOT L Attending Unavailable BRAUN, SHEILA L Attending Unavailable BRAUN, SHEILA L Attending Unavailable CUTLER, ELIOT L Attending Unavailable MIRTAIMMANUEL Referring Unavailable BRAUN, SHEILA L Attending Unavailable BRAUN, SHEILA L Attending Unavailable BRAUN, SHEILA L Attending Unavailable BRAUN, SHEILA L Attending Unavailable CUTLER, ELIOT L Attending Unavailable ALEX NAIK Attending Unavailable MANASA DUNAWAY Referring Unavailable JUAN BARON Attending Unavailable MANASA DUNAWAY Referring Unavailable JHONY GARCIA Attending Unavailable MANASA DUNAWAY Referring Unavailable JUAN BARON Attending Unavailable MANASA DUNAWAY Referring Unavailable BRAUN, SHEILA L Attending Unavailable BRAUN, SHEILA L Attending Unavailable BRAUN, SHEILA L Attending Unavailable MIRTAIMMANUEL Attending Unavailable CUTLER, ELIOT L Attending Unavailable IMMANUEL KUHN Referring Unavailable CUTLER, ELIOT L Referring Unavailable BRAUN, SHEILA L Attending Unavailable CUTLER, ELIOT L Attending Unavailable MIRTAIMMANUEL Referring Unavailable BRAUN, SHEILA L Attending Unavailable BRAUN, SHEILA L Attending Unavailable BRAUN, SHEILA L Attending Unavailable BRAUN, SHEILA L Attending Unavailable BRAUN, SHEILA L Attending Unavailable CUTLER, ELIOT L Attending Unavailable CUTLER, ELIOT L Referring Unavailable MIRTAIMMANUEL Referring Unavailable CUTLER, ELIOT L Attending Unavailable BRAUN, SHEILA L Attending Unavailable DIDIONBRYANREA L Attending Unavailable Allergies Allergy Classification Reported Allergen(s) Allergy Type Date of Onset Reaction(s) Facility (3 sources) No Known Medication Allergies; Translations: [No Known Medication Allergies] Propensity to adverse reactions to drug (disorder) [facility] Repository Medications Current Medications Medication Drug Class(es) Dates Sig (Normalized) Sig (Original) amLODIPine 10 mg oral tablet (20 sources) Dihydropyridine Calcium Channel Clover Start: 11-19-2023 take 1 tablet by mouth once amLODIPine (NORVASC) 10 mg tablet Take 1 tablet by mouth every afternoon. 11/19/2023 Active Start: 09-29-2019 End: 08-20-2023 take [...] oral tablet (20 sources) Atypical Antipsychotic Start: End: take 1 tablet by mouth once daily REXULTI 1 mg tablet TAKE 1 TABLET BY MOUTH ONCE DAILY AT THE SAME TIME 06/18/2023 Active Comment on above: TAKE 1 TABLET BY ROSITA TH ONCE DAILY AT THE SAME TIME busPIRone hydrochloride 10 mg oral tablet (20 sources) Start: End: take 1 tablet by mouth in the morning busPIRone (Buspar) 10 MG tablet Indications: LUISITO (generalized anxiety disorder) (CMS/HCC) Take 1 tablet (10 mg) by mouth in the morning and 1 tablet (10 mg) before bedtime. 180 tablet 1 05/07/2024 06/04/2024 Discontinued Comment on above: TAKE 1 TABLET (10 MG ) BY MOUTH IN THE MORNING AND BEFORE BEDTIME Calcium Carbonate (1 source) Start: Tums mg, Chewed, Daily, Refills(s) 0 Start Date: 05/04/24 Status: Ordered Calcium Carbonate+Vitamin D (3 sources) Calcium Carbonate+Vitamin D Active calcium carbonate-vitamin D 600-400 MG-UNIT tablet (8 sources) take 1 tablet by mouth once daily calcium carbonate-vitamin D 600-400 MG-UNIT tablet Take 1 tablet by mouth 1 (one) time each day at the same time 0 Active cefuroxime 500 mg oral tablet (3 sources) Cephalosporin Antibacterial Start: End: take 1 tablet by mouth in the morning cefuroxime (Ceftin) 500 MG tablet Indications: Acute bronchitis, unspecified organism Take 1 tablet (500 mg) by mouth in the morning and 1 tablet (500 mg) before bedtime. Do all this for 10 days. 20 tablet 0 09/13/2023 09/23/2023 Active cetirizine hydrochloride 10 mg oral tablet (11 sources) Histamine-1 Receptor Antagonist Start: End: take 1 tablet by mouth once daily cetirizine (ZyrTEC ALLERGY) 10 MG tablet Indications: Seasonal allergic rhinitis, unspecified trigger Take 1 tablet (10 mg) by mouth Daily 30 tablet 11 05/13/2024 06/04/2024 Discontinued chlorhexidine gluconate 40 mg/ml medicated liquid soap (8 sources) Start: Hibiclens 4 % external liquid Indications: Hidradenitis suppurativa of right axilla Apply topically Daily as needed for wound care. 236 mL 1 05/23/2023 Active 12 hr dextromethorphan hydrobromide 30 mg / guaiFENesin 600 mg extended release oral tablet (11 sources) Uncompetitive K-izqzah-R-aspartate Receptor Antagonist, Sigma-1 Agonist Start: End: take 1 tablet by mouth in the morning, then take 1 tablet by mouth every twelve hours at bedtime Dextromethorphan-gu aiFENesin (Mucinex DM) 30-600 MG tablet sustained-release 12 hour Indications: Seasonal allergic rhinitis, unspecified trigger Take 1 tablet by mouth in the morning and 1 tablet before bedtime. 60 tablet 2 05/13/2024 06/04/2024 Discontinued dicyclomine hydrochloride 20 mg oral tablet (6 sources) Anticholinergic Start: End: dicyclomine (Bentyl) 20 MG tablet Indications: Irritable bowel syndrome with both constipation and diarrhea TAKE 1 TABLET IN THE MORNING, 1 AT NOON, 1 IN THE EVENING, 1 BEFORE BEDTIME BEFORE MEALS 360 tablet 1 03/19/2024 05/07/2024 Discontinued ethinyl estradiol 0.035 mg / norethindrone 0.75 mg oral tablet (9 sources) Estrogen take 1 tablet by mouth in the morning norethindrone-ethin yl estradiol (Necon ) 0.5/0.75/1-35 MG-MCG tablet Take 1 tablet by mouth in the morning. 0 Active End: 08-20-2023 take 1 tablet by mouth once daily, then take [id number] tablet by mouth once Norethindrone-Eth Estradiol (ALYACEN , ,) 1-35 mg-mcg per tablet Take 1 tablet by mouth once daily. 0 08/20/2023 Discontinued Comment on above: Take 1 tablet by rosita th once daily. famotidine 40 mg oral tablet (20 sources) Histamine-2 Receptor Antagonist Start: 03-19-20 End: 06-04-20 take 1 tablet by mouth at bedtime famotidine (Pepcid) 40 MG tablet Indications: Gastroesophageal reflux disease with esophagitis without hemorrhage TAKE 1 TABLET (40 MG) BY MOUTH IN THE MORNING AND AT BEDTIME 180 tablet 1 05/04/2024 06/04/2024 Discontinued Start: 02-21-2024 take 40 mg by mouth once daily at bedtime Famotidine Active 40 MG PO Daily at bedtime February 21, 2024 12:00am ferrous sulfate 134 mg oral tablet (20 sources) Ferrous Sulfate 27 mg iron tab Take by mouth twice daily. Active Comment on above: Take by mouth twice daily. fluconazole 150 mg oral tablet (6 sources) Azole Antifungal Start: End: take 1 tablet by mouth every other day fluconazole (Diflucan) 150 MG tablet Indications: Vaginal astrid Take 1 tablet (150 mg) by mouth every other day 2 tablet 03/25/2024 05/07/2024 Discontinued gabapentin 400 mg oral capsule (20 sources) Anti-epileptic Agent Start: gabapentin (NEURONTIN) 400 mg capsule 1 capsule. 05/20/2022 Active Comment on above: 1 capsule. hydrocortisone 5 mg oral tablet (13 sources) Corticosteroid Start: hydrocortisone (CORTEF) 5 mg tablet Take 1 tablet daily per taper schedule. 100 tablet 1 02/13/2024 Active Start: 01-29-2024 End: 04-28-2024 take 3 tablets by mouth once daily in the morning, then take 2 tablets by mouth once daily in the evening hydrocortisone (CORTEF) 10 mg tablet Take 3 tablets by mouth every morning AND 2 tablets every evening. 150 tablet 2 01/29/2024 04/28/2024 Active ketoconazole 20 mg/ml topical cream (8 sources) Azole Antifungal Start: 07-13-2022 ketoconazole (NIZOral) 2 % cream Apply 1 application topically in the morning. 0 07/13/2022 Active lamoTRIgine 150 mg oral tablet (20 sources) Mood Stabilizer, Anti-epileptic Agent Start: 05-21-2022 End: 11-07-2023 lamoTRIgine (LAMICTAL) 150 mg tablet Take 150 mg by mouth. 05/21/2022 Active Comment on above: Take 150 mg by mouth . loperamide hydrochloride 2 mg oral tablet (4 sources) Opioid Agonist Start: 05-03-2017 Loperamide (Imodium A-D) 2 mg tablet Active 2 MG PO Q4H May 03, 2017 12:00am after each loose stool until symptoms controlled; do not exceed 16 mg total dose in 24 hrs LORazepam 1 mg oral tablet (16 sources) Benzodiazepine Start: 11-28-2023 LORazepam (ATIVAN) 1 mg tablet TAKE 1 - 2 TABLETS BY MOUTH PRIOR TO PROCEDURE 11/28/2023 Active Multiple Vitamin (Multi Vitamin) tablet (8 sources) Multiple Vitamin (Multi Vitamin) tablet 1 (one) time each day at the same time. 0 Active multivitamin () 27-0.8 MG tablet (4 sources) Start: 05-28-2024 take 1 tablet by mouth once daily multivitamin () 27-0.8 MG tablet Indications: , unspecified gestational age Take 1 tablet by mouth Daily 90 tablet 2 05/28/2024 Active Multivitamin preparation (3 sources) take 1 tablet by mouth once daily Multi Vitamin - 1 tablet Orally Once a day Active omeprazole 40 mg delayed release oral capsule (16 sources) Proton Pump Inhibitor Start: 03-19-2024 End: 06-04-2024 take 1 capsule by mouth twice daily omeprazole 40 mg Cap-DR 40 mg = 1 cap(s), Oral, BID, # 90 cap(s), Refills(s) 3, Pharmacy: [facility]/pharmacy #[id number], 169, cm, 03/19/24 14:00:00 EDT, Height/Length Dosing, 76, kg, 03/19/24 14:00:00 EDT, Weight Dosing Start Date: 03/19/24 Status: Ordered ondansetron 4 mg disintegrating oral tablet (20 sources) Serotonin-3 Receptor Antagonist Start: 05-05-2024 End: 05-28-2024 take 1 tablet by mouth every eight hours for nausea ondansetron ODT (Zofran-ODT) 4 MG disintegrating tablet Indications: Nausea and vomiting, unspecified vomiting type Take 1 tablet (4 mg) by mouth every 8 (eight) hours if needed for nausea or vomiting 30 tablet 1 05/28/2024 Active Start: 08-19-2023 take 1 tablet by rosita th every eight hours as needed for nausea and vomiting and nausea and nausea ondansetron (Zofran) 4 MG tablet Indications: Nausea Take 1 tablet (4 mg) by mouth every 8 (eight) hours if needed for nausea or vomiting 60 tablet 1 08/19/2023 Active polyethylene glycol 3350 98278 mg powder for oral solution (20 sources) Osmotic Laxative Start: 05-07-2024 End: 06-04-2024 polyethylene glycol, PEG, 3350 (Glycolax) 17 GM/SCOOP powder Indications: Irritable bowel syndrome with both constipation and diarrhea Take 17 g by mouth Daily 850 g 3 05/07/2024 06/04/2024 Discontinued Start: 02-21-2024 End: 05-07-2024 polyethylene glycol, PEG, 33 50 (Glycolax) 17 GM/SCOOP powder MIX 17GM IN 4 TO 8 OZ OF HOT/COLD/ROOM TEMP BEVERAGE AND DRINK IMMEDIATELY TWICE DAILY NEEDED 02/21/2024 05/07/2024 Discontinued (Reorder) potassium chloride 20 meq powder for oral solution (20 sources) Start: 01-02-2024 End: 09-28-2024 take 40 mEq by mouth three times daily potassium chloride (KLOR-CON) 20 mEq packet Take 40 mEq by mouth three times a day. 540 Packet 2 01/02/2024 09/28/2024 Active Start: 12-19-2023 End: 01-02-2024 take 40 mEq by mouth twice daily potassium chloride (KLOR-CON) 20 mEq packet Take 40 mEq by mouth two times a day. 540 Packet 2 12/19/2023 01/02/2024 Discontinued Start: 12-16-2023 End: 09-11-2024 take 60 mEq by mouth twice daily potassium chloride (KLOR-CON) 20 mEq packet Take 60 mEq by mouth two times a day. 540 Packet 2 12/16/2023 12/19/2023 Discontinued Start: 12-13-2023 End: 09-08-2024 take 3 tablets by mouth twice daily potassium chloride ER (KLOR-CON) 20 mEq tablet Take 3 tablets by mouth two times a day. 540 tablet 2 12/13/2023 12/16/2023 Discontinued Start: 12-11-2023 End: 12-11-2023 take 40 mEq by mouth twice daily potassium chloride (KLOR-CON) 20 mEq packet Take 40 mEq by mouth two times a day. 360 Packet 2 12/11/2023 12/11/2023 Discontinued Start: 04-27-2022 End: 12-13-2023 take 2 tablets by mouth once daily potassium chloride ER (KLOR-CON) 20 mEq tablet Take 20 mEq by mouth. 4 meq 2 x daily 0 04/27/2022 12/13/2023 Discontinued Start: 04-27-2022 potassium chlo ride ER (KLOR-CON) 20 mEq tablet Take 20 mEq by mouth. 0 04/27/2022 Active take 4 tablets by mo [facility] every twelve hours Potassium Chloride ER 10 MEQ 4 capsules with food Orally Twice a day Active take 1 tablet by [facility] every twenty-four hours Potassium Chloride ER 20 MEQ 1 tablet with food Orally Once a day Active Comment on above: Take 20 mEq by mouth . promethazine hydrochloride 25 mg oral tablet (4 sources) Phenothiazine Start: 05-03-20 take 25 mg by mouth every six hours Promethazine Active 25 MG PO Q6H May 03, 2017 12:00am sucralfate 100 mg/ml oral suspension (20 sources) Aluminum Complex Start: 05-04-20 24 sucralfate 1 g/10 mL Oral Susp 10 mL Refills(s) 0 Start Date: 05/04/24 Status: Ordered Start: 03-24-2024 End: 06-04-2024 take 10 mL by mouth three times daily as needed for gastroesophageal reflux disease sucralfate (Carafate) 1 GM/10ML suspension Indications: Acute gastric ulcer without hemorrhage or perforation Take 10 mL (1 g) by mouth 3 (three) times a day as needed (abdominal tenderness, reflux symptoms) 460 mL 1 03/24/2024 06/04/2024 Discontinued Start: 03-19-2024 End: 04-02-2024 take 1 tablet by mouth four times daily Carafate 1 gram Tab 1 gm = 1 tab(s), Oral, QID, X 14 day(s), # 56 tab(s), Refills(s) 0, Pharmacy: [facility]/pharmacy #[id number], 169, cm, 03/19/24 14:00:00 EDT, Height/Length Dosing, 76, kg, 03/19/24 14:00:00 EDT, Weight Dosing Start Date: 03/19/24 Stop Date: 04/02/24 Status: Ordered SUMAtriptan 100 mg oral tablet (20 sources) Serotonin-1b and Serotonin-1d Receptor Agonist Start: 08-12-2023 SUMAtriptan (IMITREX) 100 mg tablet TAKE 1 TAB AT MIGRAINE ONSET, MAY REPEAT IN 2 HOURS NEEDED, MAX 2 TABS IN 24 HOURS 08/17/2023 Active Comment on above: TAKE 1 TAB AT MIGRAI NE ONSET, MAY REPEAT IN 2 HOURS NEEDED, MAX 2 TABS IN 24 HOURS traMADol hydrochloride 50 mg oral tablet (1 source) Opioid Agonist Start: 01-29-2024 End: 02-05-2024 take 1 tablet by mouth every eight hours as needed traMADol (ULTRAM) 50 mg tablet Indications: Post-operative pain Take 1 tablet by mouth every 8 hours as needed for up to 7 days. 21 tablet 0 01/29/2024 02/05/2024 Active 24 hr verapamil hydrochloride 120 mg extended release oral capsule (6 sources) Calcium Channel Clover Start: 02-29-2024 End: 02-28-2025 take 1 capsule by mouth every twenty-four hours at bedtime verapamil ER (Verelan) 120 MG 24 hr capsule Indications: Irritable bowel syndrome with diarrhea Take 1 capsule (120 mg) by mouth at bedtime Do not crush or chew. 30 capsule 11 02/29/2024 05/07/2024 Discontinued vitamin b6 50 mg oral tablet (4 sources) Start: 05-28-2024 End: 05-28-2025 take 1 tablet by mouth once daily pyridoxine (Vitamin B-6) 50 MG tablet Indications: Nausea and vomiting, unspecified vomiting type Take 1 tablet (50 mg) by mouth Daily 90 tablet 3 05/28/2024 05/28/2025 Active Completed/Discontinued Medications Medication Drug Class(es) Dates Sig (Normalized) Sig (Original) carvedilol 25 mg oral tablet (20 sources) alpha-Adrenergic Clover, beta-Adrenergic Clover Start: 08-18-2021 End: 12-06-2023 take 1 tablet by mouth twice daily carvedilol (COREG) 25 mg tablet Take 1 tablet by mouth two times a day. 0 08/18/2021 12/06/2023 Discontinued Comment on above: Take 1 tablet by rosita th two times a day. clonazePAM 0.5 mg oral tablet (17 sources) Benzodiazepine Start: 02-26-2024 End: 05-19-2024 take 1 tablet by mouth every twelve hours for anxiety and anxiety clonazePAM (KlonoPIN) 0.5 MG tablet Indications: Anxiety Take 1 tablet (0.5 mg) by mouth every 12 (twelve) hours for 14 days 28 tablet 05/05/2024 05/19/2024 Discontinued Start: 07-12-2023 take 1 tablet by rosita th every twelve hours for anxiety and anxiety clonazePAM (KlonoPIN) 0.5 MG tablet Indications: Anxiety Take 1 tablet (0.5 mg) by mouth every 12 (twelve) hours for 14 days 28 tablet 0 07/12/2023 Active cosyntropin 0.25 mg injectio n (CORTROSYN) (3 sources) Start: 04-10-2024 End: 04-10-2024 cosyntropin 0.25 mg injectio n (CORTROSYN) Start: 04-10-2024 End: 04-10-2024 inject 2-5 mL by intramuscular injection once 0.25 mg, INTRAMUSCULAR, ONCE, 1 dose, On Sat04/10/24 at 0000, Intramuscular administration: Reconstitute 0.25 mg with 1 mL of NS Intravenous administration: Reconstitute 0.25 mg with 1 mL of NS and further dilute in NS to a total volume of 2 to 5 mL Start: 04-10-2024 End: 04-10-2024 cosyntropin 0.25 mg injectio n (CORTROSYN) dexamethasone 1 mg oral tablet (1 source) [...] tablet by rosita two times a day. lurasidone hydrochloride 40 mg oral tablet (20 sources) Atypical Antipsychotic Start: 05-07-20 End: 05-19-20 take 1 tablet by mouth at mealtime lurasidone (Latuda) 40 MG tablet Indications: Bipolar affective disorder, currently depressed, mild (CMS/HCC) Take 1 tablet (40 mg) by mouth in the evening. Take with meals 90 tablet 3 05/07/2024 05/19/2024 Discontinued Start: 07-20-2022 End: 11-27-2023 lurasidone (LATUDA) 60 mg ta b tablet Take 60 mg by mouth. 07/20/2022 Active Comment on above: Take 60 mg by mouth. magnesium oxide 400 mg oral tablet (15 sources) Start: 09-12-2023 End: 12-13-2023 take 1 tablet by mouth once daily in the morning magnesium oxide (MAG-OX) 400 mg (241.3 mg magnesium) tablet Take 1 tablet by mouth every morning. 0 09/12/2023 12/13/2023 Discontinued Start: 07-12-2023 take 1 capsule by mo [facility] in the morning Magnesium Oxide -Mg Supplement (Magnesium Extra Strength) 400 MG capsule Indications: Hypomagnesemia Take 1 capsule by mouth in the morning. 30 capsule 5 07/12/2023 Active take 1 tablet by rosita every twenty-four hours Magnesium Oxide 400 MG 1 TABLET Orally Once a day Active minocycline 100 mg oral capsule (1 source) Tetracycline-class Drug Start: 11-26-2012 End: 08-20-2023 take 1 capsule by mouth twice daily minocycline 100 mg capsule Take 1 capsule by mouth twice daily. 60 capsule 4 11/26/2012 08/20/2023 Discontinued Comment on above: Take 1 capsule by mo [facility] twice daily. Natazia 3/2-2/2-3/1 MG Oral [...] Take 25 mg by mouth once daily. spironolactone 25 mg oral tablet (18 sources) Aldosterone Antagonist Start: 02-04-20 End: 02-04-20 take 0.5 tablet by mouth once daily spironolactone (ALDACTONE) 25 mg tablet Take 0.5 tablets by mouth once daily. 45 tablet 2 02/04/2024 02/04/2024 Discontinued Start: 12-11-2023 End: 09-06-2024 take 1 tablet by mouth twice daily spironolactone (ALDACTONE) 50 mg tablet Take 1 tablet by mouth two times a day. 180 tablet 2 12/11/2023 09/06/2024 Active Start: 11-20-2023 End: 12-11-2023 take 1 tablet by mouth once spironolactone (ALDACTONE) 25 mg tablet Take 1 tablet by mouth every afternoon. 0 11/20/2023 12/11/2023 Discontinued Start: 05-23-2023 take 1 tablet by rosita once daily spironolactone (Aldactone) 50 MG tablet Indications: Hypokalemia TAKE 1 TABLET BY MOUTH EVERY DAY FOR 90 DAYS 90 tablet 1 05/23/2023 Active terazosin 2 mg oral capsule (1 source) alpha-Adrenergic Clover Start: 11-02-2019 End: 08-20-2023 take 1 capsule by mouth once daily at bedtime terazosin (HYTRIN) 2 mg capsule Take 2 mg by mouth daily at bedtime. 0 11/02/2019 08/20/2023 Discontinued Comment on above: Take 2 mg by mouth daily at bedtime. zolpidem tartrate 10 mg oral tablet (20 sources) gamma-Aminobutyric Acid-ergic Agonist Start: 04-22-2024 End: 05-22-2024 zolpidem (Ambien) 10 MG tablet Indications: Primary insomnia Take 1 tablet (10 mg) by mouth as needed at bedtime for sleep 30 tablet 04/22/2024 05/19/2024 Discontinued Start: 08-19-2023 End: 09-18-2023 zolpidem (AMBIEN) 10 mg 08/05 Active Problems Active Problems Problem Classification Problem Date Documented Date Episodic/Chronic Abdominal pain (20 sources) Abdominal pain; Translations: [Unspecified abdominal pain] Onset: 4 02-21-2024 Episodic Acute bronchitis (2 sources) Acute bronchitis; Translations: [Acute bronchitis, unspecified] 09-13-2023 Episodic Administrative/social admission (5 sources) Encounter for blood-alcohol and blood-drug test; Translations: [Patient encounter status] Onset: Episodic Anxiety disorders (20 sources) Generalized anxiety disorder; Translations: [Generalized anxiety disorder] Onset: 7 12-06-2022 Chronic Comment on above: Outside Source Comme nt: Last Assessment & Plan: Assessment: stable on medication Denies any suicidal ideation Following with Psychology Medication Management and changes being made Cancer of brain and nervous system (20 sources) Malignant neoplasm of brain, unspecified; Translations: [Glioma] Onset: 8 Resolved: 4 Chronic Conduction disorders (20 sources) First degree atrioventricular block; Translations: [Atrioventricular block, first degree] Onset: 3 02-21-2023 Chronic Diabetes mellitus without complication (20 sources) Diabetes mellitus; Translations: [Type 2 diabetes mellitus without complications] Onset: 3 02-21-2023 Chronic Esophageal disorders (20 sources) Gastroesophageal reflux disease; Translations: [Gastro-esophageal reflux disease without esophagitis] Onset: 9 02-21-2023 Chronic Essential hypertension (20 sources) Benign essential hypertension; Translations: [Benign essential hypertension] Onset: 8 Resolved: 3 05-03-2017 Chronic Gastroduodenal ulcer (except hemorrhage) (2 sources) Ulcer of anastomosis; Translations: [Gastrojejunal ulcer, unspecified as acute or chronic, without hemorrhage or perforation] 05-07-2024 Chronic Headache; including migraine (20 sources) Migraine with aura; Translations: [Migraine with aura, not intractable, without status migrainosus] Onset: 3 Resolved: 3 02-21-2023 Chronic Hypertension with complications and secondary hypertension (1 source) Hypertension secondary to endocrine disorder; Translations: [Hypertension secondary to endocrine disorders] 12-11-2023 Chronic Joint disorders and dislocations; trauma-related (20 sources) Patellofemoral syndrome of left knee; Translations: [Patellofemoral disorders, left knee] Onset: 8 02-21-2023 Chronic Menstrual disorders (20 sources) Dysmenorrhea, unspecified; Translations: [Dysmenorrhea] Onset: 7 Resolved: 4 02-21-2023 Chronic Miscellaneous mental health disorders (20 sources) Insomnia disorder related to another mental disorder; Translations: [Insomnia due to other mental disorder] Onset: 8 02-21-2023 Chronic Mood disorders (20 sources) Bipolar affective disorder, currently depressed, mild; Translations: [Bipolar disorder, current episode depressed, mild] Onset: 8 12-06-2022 Chronic Comment on above: Outside Source Comme nt: Last Assessment & Plan: Assessment: stable on medication Denies any suicidal ideation Following with Psychology Medication Management and changes being made Neoplasms of unspecified nature or uncertain behavior (3 sources) Neoplasm of brain 03-19-2024 Chronic Osteoarthritis (20 sources) Osteoarthritis of left knee joint; Translations: [Unilateral primary osteoarthritis, left knee] Onset: 3 02-21-2023 Chronic Other endocrine disorders (20 sources) Polycystic ovary syndrome; Translations: [Polycystic ovaries] Onset: 3 02-21-2023 Chronic Other endocrine disorders (4 sources) Polycystic ovarian syndrome; Translations: [POLYCYSTIC OVARIAN SYNDROME] Onset: 2 Chronic Other endocrine disorders (5 sources) Disorder of adrenal gland, unspecified; 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)] Chronic Other endocrine disorders (20 sources) Primary aldosteronism; 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] Onset: 4 09-04-2023 Chronic Other endocrine disorders (20 sources) Adrenal mass; Translations: [Other specified disorders of adrenal gland] Onset: 9 02-21-2023 Chronic Other endocrine disorders (20 sources) Hyperaldosteronism; Translations: [Hyperaldosteronism, unspecified] Onset: 4 12-10-2023 Chronic Other endocrine disorders (20 sources) Hypocortisolism secondary to another disorder; Translations: [Other adrenocortical insufficiency] Onset: 4 02-12-2024 Chronic Other endocrine disorders (1 source) Other adrenocortical insufficiency; Translations: [Secondary adrenal insufficiency (HCC)] Onset: 4 Chronic Other endocrine disorders (1 source) Other primary hyperaldosteronism; Translations: [Primary hyperaldosteronism (HCC)] Onset: 4 Chronic Other endocrine disorders (1 source) Hyperaldosteronism, unspecified; Translations: [Hyperaldosteronism (HCC)] Onset: 4 Chronic Other gastrointestinal disorders (20 sources) Irritable bowel syndrome with diarrhea; Translations: [Irritable bowel syndrome with diarrhea] Onset: 9 02-21-2023 Chronic Other gastrointestinal disorders (2 sources) Irritable bowel syndrome; Translations: [Mixed irritable bowel syndrome] 05-07-2024 Chronic Other gastrointestinal disorders (1 source) Constipation, unspecified; Translations: [Constipation, unspecified] Onset: 4 Episodic Other gastrointestinal disorders (14 sources) History of bypass of stomach; Translations: [Bariatric surgery status] Onset: 4 05-06-2024 Episodic Other nervous system disorders (20 sources) Neuropathy; Translations: [Polyneuropathy, unspecified] Onset: 3 02-21-2023 Chronic Other nervous system disorders (1 source) Other acute postprocedural pain; Translations: [Post-operative pain] Onset: 4 Episodic Other nutritional; endocrine; and metabolic disorders [...] Chronic Other nutritional; endocrine; and metabolic disorders (20 sources) Morbid obesity; Translations: [Morbid (severe) obesity due to excess calories] Onset: 8 02-21-2023 Chronic Other and delivery including normal (4 sources) ; Translations: [Encounter for supervision of normal , unspecified, unspecified trimester] 05-19-2024 Episodic Other screening for suspected conditions (not mental disorders or infectious disease) (20 sources) Electrocardiogram abnormal; Translations: [Abnormal electrocardiogram [ECG] [EKG]] Onset: 2 Resolved: 3 02-21-2023 Episodic Other upper respiratory disease (20 sources) Seasonal allergic rhinitis; Translations: [Other seasonal allergic rhinitis] Onset: 1 02-21-2023 Chronic Other upper respiratory infections (20 sources) Sinusitis; Translations: [Chronic sinusitis, unspecified] Onset: 8 02-21-2023 Chronic Other upper respiratory infections (2 sources) Pharyngitis; Translations: [Acute pharyngitis, unspecified] 05-24-2024 Episodic Residual codes; unclassified (17 sources) Obstructive sleep apnea syndrome; Translations: [Obstructive sleep apnea (adult) (pediatric)] Onset: 4 03-19-2024 Chronic Residual codes; unclassified (1 source) Tobacco use; Translations: [TOBACCO USE] Onset: 3 Episodic Screening and history of mental health and substance abuse codes (2 sources) Ex-smoker; Translations: [Personal history of tobacco use] Episodic Comment on above: quit 2021; Substance-related disorders (20 sources) Cannabis abuse; Translations: [Cannabis abuse, uncomplicated] Onset: 9 02-21-2023 Chronic Unclassified (2 sources) Consult; Translations: [Consult] Onset: 3 Unclassified (1 source) CONTACT W/AND (SUSP) EXPOS COVID-19; Translations: [CONTACT W/AND (SUSP) EXPOS COVID-19] Onset: 3 Unclassified (3 sources) Bipolar (qualifier value) 03-19-2024 Unclassified (3 sources) History of bypass of stomach 03-19-2024 Viral infection (2 sources) Viral disease; Translations: [Viral infection, unspecified] 05-24-2024 Episodic Past or Other Problems Problem Classification Problem Date Documented Da te Episodic/Chronic Deficiency and other anemia (20 sources) Microcytic anemia; Translations: [Iron deficiency anemia, unspecified] Onset: 11-05-2019 02-21-2023 Episodic Fluid and electrolyte disorders (20 sources) Hypokalemia; Translations: [Alkalosis] Onset: 09-07-2022 Episodic Headache; including migraine (20 sources) Generalized headache; Translations: [Generalized headache] Onset: 07-15-2018 02-21-2023 Episodic Nausea and vomiting (20 sources) Nausea; Translations: [Nausea] Onset: 10-17-2023 05-03-2017 Episodic Nutritional deficiencies (20 sources) Iron deficiency; Translations: [Iron deficiency] Onset: 02-02-2020 02-02-2020 Episodic Other aftercare (1 source) Other roasterman (current) drug therapy; Translations: [OTH SECTIONIZER CURRENT DRUG THERAPY] Onset: 09-10-2022 Episodic Other and unspecified benign neoplasm (20 sources) Adenoma of left adrenal gland; Translations: [Benign neoplasm of left adrenal gland] Onset: 09-04-2023 08-20-2023 Episodic Other and unspecified benign neoplasm (1 source) Benign neoplasm of left adrenal gland; Translations: [Adenoma of left adrenal gland] Onset: 09-04-2023 Episodic Other connective tissue disease (20 sources) Plantar fasciitis; Translations: [Plantar fascial fibromatosis] Onset: 02-11-2017 02-21-2023 Episodic Other ear and sense organ disorders (20 sources) Otalgia, right ear; Translations: [Otalgia, unspecified] Onset: 11-04-2018 Resolved: 02-21-2023 02-21-2023 Episodic Other gastrointestinal disorders (20 sources) Diarrhea; Translations: [Diarrhea, unspecified] Onset: 10-17-2023 05-03-2017 Episodic Other gastrointestinal disorders (20 sources) History of bariatric surgical procedure; Translations: [Bariatric surgery status] Onset: 12-06-2023 12-06-2023 Episodic Other gastrointestinal disorders (2 sources) Bariatric surgery status; Translations: [Bariatric surgery status] Onset: 12-06-2023 Episodic Other gastrointestinal disorders (3 sources) Adrenal mass Onset: 08-23-2023 03-19-2024 Episodic Other nutritional; endocrine; and metabolic disorders (20 sources) Excessive eating - polyphagia; Translations: [Polyphagia] Onset: 11-08-2020 Resolved: 02-21-2023 02-21-2023 Episodic Other nutritional; endocrine; and metabolic disorders (20 sources) H/O: metabolic disorder; Translations: [Personal history of other endocrine, nutritional and metabolic disease] Onset: 01-20-2024 01-20-2024 Episodic Other skin disorders (20 sources) Axillary hidradenitis suppurativa; Translations: [Hidradenitis suppurativa] Onset: 10-27-2012 10-27-2012 Episodic Other skin disorders (20 sources) Comedone; Translations: [Acne vulgaris] Onset: 10-27-2012 Resolved: 02-21-2023 10-27-2012 Episodic Other skin disorders (20 sources) Alopecia totalis; Translations: [Alopecia (capitis) totalis] Onset: 06-18-2017 Resolved: 02-21-2023 02-21-2023 Episodic Other skin disorders (20 sources) Ingrowing nail; Translations: [Ingrowing nail] Onset: 08-22-2021 Resolved: 02-21-2023 02-21-2023 Episodic Residual codes; unclassified (20 sources) Insomnia; Translations: [Insomnia, unspecified] Onset: 12-11-2019 Resolved: 03-19-2024 02-21-2023 Episodic Residual codes; unclassified (20 sources) Tobacco use and exposure - finding; Translations: [Tobacco use] Onset: 01-20-2024 01-20-2024 Episodic Thyroid disorders (20 sources) Goiter; Translations: [Iodine-deficiency related diffuse (endemic) goiter] Onset: 01-14-2019 Resolved: 03-19-2024 02-21-2023 Chronic Results Test Name Value Interpretation Reference Range Facility Laboratory - Microbiology an d Antimicrobial susceptibilityOrdered By: Heidi Chiu on 05-24-2024 SARS-CoV-2 (COVID-19) RNA DARWIN+probe Ql (Unsp spec) Negative [facility] No Panel InformationOrdered By: Heidi Chiu on 05-24-2024 FLU A Negative [facility] FLU B Negative [facility] Interpretation and review of laboratory results Normal [facility] HCG ( test) Ql (U)o n 05-19-2024 Interpretation and review of laboratory results Abnormal [facility] Preg Test, Ur Positive [facility] Ambulatory Visit Summaryon 0 05-04-2024 Ambulatory Visit Summary Ambulatory Visit Summary ABEBAAMY HEIDI Mirza :1990 Visit Date:05/04/2024 Ambulatory Visit Instructions Your Diagnosis RUQ pain Irritable bowel syndrome with diarrhea Your Care Team Attending Physician - Frank URIBE, Kvng Duran Primary Care Physician - ELIOT GARCÍA DO This Is Your Medications List Contact prescribing physician if questions or concerns calcium carbonate (Tums) famotidine (Pepcid 40 mg Tab) omeprazole (omeprazole 40 mg Cap-DR) sucralfate (sucralfate 1 g/10 mL Oral Susp 10 mL) Procedures Performed EGD (esophagogastroduodenoscop ic) electrohydraulic lithotripsy of bezoar in stomach (03/24/2024), 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 Discharge Vitals Heart Rate (Peripheral) 73 Blood Pressure 117/80 Height 169 cm Height 67 in Weight 79.2 kg Weight 174.24 lb BMI 27.73 Medications What How Much When Instructions Unchanged calcium carbonate (Tums) Chewed Every day Contact prescribing physician if questions or concerns Unchanged famotidine (Pepcid 40 mg Tab) 1 Tablets By Mouth 2 times a day Contact prescribing physician if questions or concerns Unchanged omeprazole (omeprazole 40 mg Cap-DR) 1 Capsules By Mouth 2 times a day Contact prescribing physician if questions or concerns Unchanged sucralfate (sucralfate 1 g/ 10 mL Oral Susp 10 mL) Contact prescribing physician if questions or concerns Medications and Immunizations Administered Not Given influenza virus vaccine, inactivated, Patient Refuses influenza virus vaccine, inactivated, Patient Refuses Allergies No Known Medication Allergies Problems Ongoing - Any problem that you are currently receiving treatment for. Abdominal pain Adrenal mass Anxiety Bipolar Cannabis abuse Depressive disorder Diabetes mellitus Diarrhea Essential hypertension First degree atrioventricular block Gastroesophageal reflux disease Headache History of bypass of stomach. Iron deficiency Irregular periods Irritable bowel syndrome with diarrhea Microcytic anemia Migraine Morbid obesity Nausea Neoplasm of brain Neuropathy Nicotine dependence Obstructive sleep apnea syndrome Plantar fasciitis Polycystic ovary syndrome RUQ pain Type 2 diabetes mellitus without complication Historical - Any problem that you are no longer receiving treatment for. Dysmenorrhea Glioma Goiter Insomnia Patient Survey You may receive a survey via text or e-mail asking about your office visit. Please share your experience with us by completing your survey. We appreciate your feedback and thank you for choosing us for your care. [facility] Gastroenterology Office/Clin ic Noteon 05-04-2024 Gastroenterology Office/Clinic Note Gastroenterology Office/Clinic Note Chief Complaint EGD results HPI Staff This is a 33 year old female who presents today for a follow-up to EGD. Patient states that constiaption has improved. Last office visit w/ Dr Marie 03/19/24 History of Present Illness for 2 months, mid-abd pain, radiating up discomfort, severe constipation (taking, miralax helped, but still feels backed up) had Fredrick en y at [facility], had CT with iv contrast, reports it was normal, labs were good Assessment/Plan 1. RUQ pain (R10.11: Right upper quadrant pain) 2. Irritable bowel syndrome with diarrhea (K58.0: Irritable bowel syndrome with diarrhea) EGD w/ Dr Marie 03/24/24 Endoscopic diagnosis: 1. Esophageal landmarks identified, 7mm polypoid lesion at the GE junction biopsied. 2. Evidence of previous surgery in the stomach with Fredrick-en-y anatomy. Gastrojejunal anastomosis had large anastomotic ulcer with friable tissue around it, occupying about 40% of the anastomosis. Random biopsies were taken to rule out h. pylori form the gastric pouch. 3. normal examined efferent jejunal loop afterwards, advanced about 20cm in the jejunum. Final Diagnosis (Verified) A. Gastric biopsy: Chronic gastritis with glandular reparative changes edema and hemorrhage within lamina propria suggestive of a chemical gastropathy. IHC stains are negative for Helicobacter pylori. Appropriate reactive controls are performed and reviewed B. GE junction lesion biopsy: Gastroesophageal glandular and squamous mucosa with focal ulceration and acute and chronic inflammation and granulation tissue edema and hemorrhage. No evidence of malignancy is identified. History of Present Illness decreased smoking improved diet (carbonated beverages) on P Review of Systems PHQ Score Initial Depression Screen Score: 0 SCORE Physical Exam Vitals & Measurements HR: 73(Peripheral) BP: 117/80 HT: 67 in HT: 169 cm WT: 79.2 kg WT: 174.24 lb BMI: 27.73 Assessment/Plan 1. RUQ pain (R10.11: Right upper quadrant pain) She had mostly epigastric pain due to anastomotic ulcer, large, she had a benign polypoid lesion as well likely inflammatory with granulation tissue With lifestyle modifications, decreasing smoking, aiming to quit, Carafate and open capsule PPI she feels 70 to 80% better only some symptoms now when she is stressed, otherwise she can eat without problems Constipation resolved as well 2. Irritable bowel syndrome with diarrhea (K58.0: Irritable bowel syndrome with diarrhea) Controlled Follow-up No qualifying data available Problem List/Past Medical History Ongoing Abdominal pain Adrenal mass Anxiety Bipolar Cannabis abuse Depressive disorder Diabetes mellitus Diarrhea Essential hypertension First degree atrioventricular block Gastroesophageal reflux disease Headache History of bypass of stomach. Iron deficiency Irregular periods Irritable bowel syndrome with diarrhea Microcytic anemia Migraine Morbid obesity Nausea Neoplasm of brain Neuropathy Nicotine dependence Obstructive sleep apnea syndrome Plantar fasciitis Polycystic ovary syndrome RUQ pain Type 2 diabetes mellitus without complication Historical Dysmenorrhea Glioma Goiter Insomnia Procedure/Surgical History EGD (esophagogastroduodenoscop ic) electrohydraulic lithotripsy of bezoar in stomach (03/24/2024), 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 Medications omeprazole 40 mg Cap-DR, 40 mg= 1 cap(s), Oral, BID, 3 refills Pepcid 40 mg Tab, 40 mg= 1 tab(s), Oral, BID, 3 refills sucralfate 1 g/10 mL Oral Susp 10 mL Tums, Chewed, Daily Allergies No Known Medication Allergies Social History Tobacco 10 or more cigarettes (1/2 pack or more)/day in last 30 days Tobacco Use:. Never Smokeless Tobacco Use:. Cigarettes, 05/04/2024 Family History Family history is negative Immunizations Vaccine Date Status Comments influenza virus vaccine, inactivated - Not Given Patient Refuses influenza virus vaccine, inactivated - Not Given Patient Refuses [facility] Comment on above: Result Comment: Elec tronically Signed By: Frank URIBE, Kvng Duran\.br\Date and Time Signed: 05/04/24 09:41 EDT Aldost SerPl-mCncon 04-10-20 24 Aldosterone [Mass/Vol] 3.4 ng/dL Normal 0.0-<35.4 [facility] Comment on above: Order Comment: Speci men Type: BLOOD SPECIMENOrdering Facility: [facility] Address: [address] [place] [id number] Result Comment: The reference interval for serum/plasma aldosterone is based on a normal sodium intake and upright position. High sodium intake may suppress aldosterone and low sodium intake may increase aldosterone.The supine reference interval is <23.7 ng/dL.A ratio of aldosterone in ng/dL to direct renin in pg/mL greater than or equal to 3.8 is a positive screening test result for primary aldosteronism, when aldosterone is greater than or equal to 15 ng/dL. Performed By: #### 1 117-2 ####[facility] LABCLIA [id number] [place] [address] [place] CNOVon 04-10-2024 CNOV Normal [facility] CORTISOL, 30 MINon 4 Cortisol 30 Min post Unsp challenge [Mass/Vol] 19.7 ug/dL Normal [facility] Comment on above: Order Comment: Speci men Type: BLOOD SPECIMENOrdering Facility: [facility] Address: [address] [place] [address] Performed By: #### C OR30 ####[facility] LABIA [id number] [address] [place] CORTISOL, 60 MINon 4 Cortisol 1 Hr post Unsp challenge [Mass/Vol] 23.7 ug/dL Normal [facility] Comment on above: Order Comment: Speci men Type: BLOOD SPECIMENOrdering Facility: [facility] Address: [address] [place] [address] Performed By: #### C [id number] ####[facility] LABIA [id number] [place] [address] [place] INTERPRETATION (ACTHST) Normal [facility] Comment on above: Order Comment: Speci men Type: BLOOD SPECIMENOrdering Facility: [facility] Address: [address] [place] [address] Result Comment: Afte r cortrosyn stimulation, a peak cortisol response greater than 12.6 ug/dL may indicate appropriate cortisol secretion. This result should be interpreted within the clinical context and other test results.Yannick et al. Clinical Implications for Biochemical Diagnostic Thresholds of Adrenal Sufficiency Using a Highly Specific Cortisol Immunoassay. 2017 Clin. Biochem. 50:475-480. Performed By: #### C [id number] ####[facility] LABCLIA [id number] [place] [id number] [place] CORTISOL, BASALon 04-10-2024 Cortisol baseline [Mass/Vol] 12.4 ug/dL Normal 4.8-19.5 [facility] Comment on above: Order Comment: Speci men Type: BLOOD SPECIMENOrdering Facility: [facility] Address: [address] [place] [address] Result Comment: Prov ided reference range is from 6-10 AM sample collection time.Cortisol Reference Range: 6-10 AM = 4.8-19.5 ug/dL, 4-8 PM = 2.5-11.9 ug/dL Performed By: #### C ORTBAS ####[facility] LABCLIA [id number] [address] DIRECT RENIN PLASMAon 2023 DIRECT RENIN 21.1 pg/mL Normal 4.2-52.2 [facility] Comment on above: Order Comment: Peter myles Type: BLOOD SPECIMENOrdering Facility: [facility] Address: [address] [place] [address] Result Comment: A ra yue of aldosterone in ng/dL to direct renin in pg/mL greater than or equal to 3.8 is a positive screening test result for primary aldosteronism, when aldosterone is greater than or equal to 15 ng/dL.The reference interval for direct renin is based on an upright position.The supine reference intervals are:Age <41 years: 3.2-33.2 pg/mLAge >=41 years: 2.5-45.1 pg/mL Performed By: #### R ENIND ####[facility] LABCLIA [id number] [address] LABCLIA [id number] [place] [address] [place] PATIENT UPRIGHT OR SUPINE Upright Normal [facility] Comment on above: Order Comment: Speci men Type: BLOOD SPECIMENOrdering Facility: [facility] Address: [address] [place] [address] Performed By: #### R ENIND ####[facility] LABCLIA [id number] [address] [facility] LABCLIA [id number] [place] [address] [place] [facility] Magnesium SerPl-ncon 04-10 Magnesium [Mass/Vol] 1.9 mg/dL Normal 1.7-2.3 [facility] Comment on above: Order Comment: Speci men Type: BLOOD SPECIMENOrdering Facility: [facility] [facility] Address: [address] [place] [address] Performed By: #### 2 4362-6, ####[facility] LABCLIA [id number] [place] [address] [address]al [address] [place] [address] 04-10-2024 Albumin [Mass/Vol] 4.4 g/dL Normal 3.9-4.9 [facility] Comment on above: Order Comment: Speci men Type: BLOOD SPECIMENOrdering Facility: [facility] Address: [address] [place] [address] Performed By: #### 2 4362-6, ####[facility] LABIA [id number] [place] [address] Anion gap [Moles/Vol] 10 mmol/L Normal 8-15 [facility] Comment on above: Order Comment: Speci men Type: BLOOD SPECIMENOrdering Facility: [facility] Address: [address] [place], [place] [address] Performed By: #### 2 4362-6, ####[facility] LABCLIA [id number] [place] [address] Calcium [Mass/Vol] 9.0 mg/dL Normal 8.5-10.2 [facility] Comment on above: Order Comment: Speci men Type: BLOOD SPECIMENOrdering Facility: [facility] Address: [address] [place], [place] [address] Performed By: #### 2 4362-6, ####[facility] LABCLIA [id number] [place] [address] Chloride [Moles/Vol] 106 mmol/L Normal 98-107 [facility] Comment on above: Order Comment: Speci men Type: BLOOD SPECIMENOrdering Facility: [facility] Address: [address] [place], [place] [address] Performed By: #### 2 4362-6, ####[facility] LABCLIA [id number] [place] [address] CO2 [Moles/Vol] 20 mmol/L Low 22-30 [facility] Comment on above: Order Comment: Speci men Type: BLOOD SPECIMENOrdering Facility: [facility] Address: [address] [place], [place] [address] Performed By: #### 2 4362-6, ####[facility] LABCLIA [id number] [place] [address] Creatinine [Mass/Vol] 1.00 mg/dL High 0.58-0.96 [facility] Comment on above: Order Comment: Speci men Type: BLOOD SPECIMENOrdering Facility: [facility] Address: [address] [place] [address] Performed By: #### 2 4362-6, ####[facility] LABCLIA [id number] [place] [address] Creatinine and Glomerular filtration rate.predicted panel (S/P/Bld) 77 mL/min/1.73m??? Normal >=60 [facility] Comment on above: Order Comment: Speci men Type: BLOOD SPECIMENOrdering Facility: [facility] Address: [address] [place], [place] [address] Result Comment: Rachel mated Glomerular Filtration Rate [...] reflect actual GFR. Performed By: #### 2 4362-6, ####[facility] LABCLIA [id number] [place] [address] Glucose [Mass/Vol] 185 mg/dL High 74-99 [facility] Comment on above: Order Comment: Speci men Type: BLOOD SPECIMENOrdering Facility: [facility] Address: [address] [place] [address] Result Comment: The [place] [employer] (ADA) provides guidance for cutoff values for fasting glucose and random glucose. The ADA defines fasting as no caloric intake for at least 8 hours. Fasting plasma glucose results between 100 to 125 mg/dL indicate increased risk for diabetes (prediabetes).Fasting plasma glucose results greater than or equal to 126 mg/dL meet the criteria for diagnosis of diabetes. In the absence of unequivocal hyperglycemia, results should be confirmed by repeat testing. In a patient with classic symptoms of hyperglycemia or hyperglycemic crisis, random plasma glucose results greater than or equal to 200 mg/dL meet the criteria for diagnosis of diabetes.Reference: Standards of Medical Care in Diabetes 2016, [place] [employer]. Diabetes Care. 2016.39(Suppl 1). Performed By: #### 2 4362-6, ####[facility] LABIA [id number] [place] [address] Phosphate [Mass/Vol] 3.4 mg/dL Normal 2.7-4.8 [facility] Comment on above: Order Comment: Speci men Type: BLOOD SPECIMENOrdering Facility: [facility] Address: [address] [place] [address] Performed By: #### 2 4362-6, ####[facility] LABIA [id number] [place] [address] Potassium [Moles/Vol] 4.5 mmol/L Normal 3.7-5.1 [facility] Comment on above: Order Comment: Speci men Type: BLOOD SPECIMENOrdering Facility: [facility] Address: [address] [place] [address] Performed By: #### 2 4362-6, ####[facility] LABCLIA [id number] [place] [address] Sodium [Moles/Vol] 136 mmol/L Normal 136-144 [facility] Comment on above: Order Comment: Speci men Type: BLOOD SPECIMENOrdering Facility: [facility] Address: [address] [place] [address] Performed By: #### 2 4362-6, ####[facility] LABCLIA [id number] [place] [address] Urea nitrogen [Mass/Vol] 37 mg/dL High 7-21 [facility] Comment on above: Order Comment: Speci men Type: BLOOD SPECIMENOrdering Facility: [facility] Address: [address] [place] [address] Performed By: #### 2 4362-6, ####[facility] LABCLIA [id number] [place] [address] Albumin [Mass/Vol] 4.2 g/dL Normal 3.9-4.9 [facility] Comment on above: Order Comment: Speci men Type: BLOOD SPECIMENOrdering Facility: [facility] Address: [address] [place] [address] Performed By: #### 2 4362-6 ####[facility] LABCLIA [id number] [place] [id number] [place] Anion gap [Moles/Vol] 9 mmol/L Normal 8-15 [facility] Comment on above: Order Comment: Speci men Type: BLOOD SPECIMENOrdering Facility: [facility] Address: [address] [place] [address] Performed By: #### 2 4362-6 ####[facility] LABCLIA [id number] [place] [id number] [place] Calcium [Mass/Vol] 8.8 mg/dL Normal 8.5-10.2 [facility] Comment on above: Order Comment: Speci men Type: BLOOD SPECIMENOrdering Facility: [facility] Address: [address] [place] [address] Performed By: #### 2 4362-6 ####[facility] LABCLIA [id number] [place] [address] [place] Chloride [Moles/Vol] 111 mmol/L High 98-107 [facility] Comment on above: Order Comment: Speci men Type: BLOOD SPECIMENOrdering Facility: [facility] Address: [address] [place] [address] Performed By: #### 2 4362-6 ####[facility] LABCLIA [id number] [place] [id number] [place] CO2 [Moles/Vol] 18 mmol/L Low 22-30 [facility] Comment on above: Order Comment: Speci men Type: BLOOD SPECIMENOrdering Facility: [facility] Address: [address] [place] [address] Performed By: #### 2 4362-6 ####[facility] LABCLIA [id number] [place] [address] [place] Creatinine [Mass/Vol] 0.98 mg/dL High 0.58-0.96 [facility] Comment on above: Order Comment: Speci men Type: BLOOD SPECIMENOrdering Facility: [facility] Address: [address] [place] [address] Performed By: #### 2 4362-6 ####[facility] LABCLIA [id number] [place] [address] [place] Creatinine and Glomerular filtration rate.predicted panel (S/P/Bld) 79 mL/min/1.73m??? Normal >=60 [facility] Comment on above: Order Comment: Speci men Type: BLOOD SPECIMENOrdering Facility: [facility] Address: [address] [place] [address] Result Comment: Rachel mated Glomerular Filtration Rate [...] reflect actual GFR. Performed By: #### 2 4362-6 ####[facility] LABCLIA [id number] [place] [id number] [place] Glucose [Mass/Vol] 142 mg/dL High 74-99 [facility] Comment on above: Order Comment: Peter myles Type: BLOOD SPECIMENOrdering Facility: [facility] Address: [address] [place] [address] Result Comment: The [place] Diabetes [employer] (ADA) provides guidance for cutoff values for fasting glucose and random glucose. The ADA defines fasting as no caloric intake for at least 8 hours. Fasting plasma glucose results between 100 to 125 mg/dL indicate increased risk for diabetes (prediabetes).Fasting plasma glucose results greater than or equal to 126 mg/dL meet the criteria for diagnosis of diabetes. In the absence of unequivocal hyperglycemia, results should be confirmed by repeat testing. In a patient with classic symptoms of hyperglycemia or hyperglycemic crisis, random plasma glucose results greater than or equal to 200 mg/dL meet the criteria for diagnosis of diabetes.Reference: Standards of Medical Care in Diabetes 2016, [place] [employer]. Diabetes Care. 2016.39(Suppl 1). Performed By: #### 2 4362-6 ####[facility] LABCLIA [id number] [place] [id number] [place] Phosphate [Mass/Vol] 3.9 mg/dL Normal 2.7-4.8 [facility] Comment on above: Order Comment: Peter myles Type: BLOOD SPECIMENOrdering Facility: [facility] Address: [address] [place] [id number] Performed By: #### 2 4362-6 ####[facility] LABCLIA [id number] [place] [id number] [place] Potassium [Moles/Vol] 4.3 mmol/L Normal 3.7-5.1 [facility] Comment on above: Order Comment: Speci men Type: BLOOD SPECIMENOrdering Facility: [facility] Address: [facility] [place] [address] Performed By: #### 2 4362-6 ####[facility] LABCLIA [id number] [place] [id number] [place] Sodium [Moles/Vol] 138 mmol/L Normal 136-144 [facility] Comment on above: Order Comment: Speci men Type: BLOOD SPECIMENOrdering Facility: [facility] Address: [facility] [place] [address] Performed By: #### 2 4362-6 ####[facility] LABCLIA [id number] [place] [id number] [place] Urea nitrogen [Mass/Vol] 33 mg/dL High 7-21 [facility] Comment on above: Order Comment: Speci men Type: BLOOD SPECIMENOrdering Facility: [facility] Address: [facility] [place] [address] Performed By: #### 2 4362-6 ####[facility] LABCLIA [id number] [place] [id number] [place] CNPNon 04-09-2024 CNPN Normal [facility] Surgical Pathology Reporton 03-27-2024 [place] [address]- Surgical Pathology Report Collected Date/Time: 03/24/2024 12:20 EDT Pathologist: Ike Ding MD Received Date/Time: 03/24/2024 18:00 EDT Frank URIBE, Kvng Marie MD, Kvng Browne Surgical Pathology Report - 03/27/2024 13:24 EDT - Auth (Verified) Final Diagnosis A. Gastric biopsy: Chronic gastritis with glandular reparative changes edema and hemorrhage within lamina propria suggestive of a chemical gastropathy. IHC stains are negative for Helicobacter pylori. Appropriate reactive controls are performed and reviewed B. GE junction lesion biopsy: Gastroesophageal glandular and squamous mucosa with focal ulceration and acute and chronic inflammation and granulation tissue edema and hemorrhage. No evidence of malignancy is identified. (Electronic Signature) Ike Ding MD 03/27/2024 13:24 Diagnosis Comment It is when you become flipped Clinical Information Right upper quadrant pain Pre-Op Diagnosis: Right upper quadrant pain Procedure: EGD Post-Op Diagnosis: _ Specimen(s) Received A.Gastric Biopsy, random B.GE Junction Lesion Biopsy Gross Description A: Consists of two 0.1 cm fragments of irby tissue totally submitted. B: Consists of a 0.2 cm fragment of pink/irby tissue totally submitted. (MG) MSG:MCA Microscopic Description Microscopic examination performed unless gross only specified. The use of one or more reagents in the above tests is regulated as an analyte specific reagent (ASR). The test or tests are ordered following initial H&E microscopic examination. The performance characteristics were determined by the [facility]. They have not been cleared or approved by the US Food and Drug Administration. The FDA has determined that such clearance or approval is not necessary. These tests are used for clinical purposes. They should not be regarded as investigational or for research. Appropriate positive and negative controls are performed and are acceptable. Normal [facility] Comment on above: Performed By: #### 4 [id number] #### [facility] [address] [place] [address] Ambulatory Visit Summaryon 0 03-19-2024 Ambulatory Visit Summary Ambulatory Visit Summary HEIDI JOY Hermes :1990 Visit Date:03/19/2024 Ambulatory Visit Instructions Your Diagnosis RUQ pain Irritable bowel syndrome with diarrhea History of gastric bypass Constipation Your Care Team Attending Physician - Frank URIBE, Kvng Duran Primary Care Physician - ELIOT GARCÍA DO This Is Your Medications List famotidine (Pepcid 40 mg Tab) omeprazole (omeprazole 40 mg Cap-DR) sucralfate (Carafate 1 gram Tab) Contact prescribing physician if questions or concerns hydrocortisone (hydrocortisone 5 mg Tab) Procedures Performed 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 Discharge Vitals Heart Rate (Peripheral) 86 Respiratory Rate 16 Blood Pressure 132/88 Height 169 cm Height 67 in Weight 76 kg Weight 167.2 lb BMI 26.61 Medications What How Much When Instructions New omeprazole (omeprazole 40 mg Cap-DR) 1 Capsules By Mouth 2 times a day Refills: 3 Pickup at [facility]/pharmacy #6177 New sucralfate (Carafate 1 gram Tab) 1 Tablets By Mouth 4 times a day Duration: 14 Days Pickup at [facility]/pharmacy #6177 Changed famotidine (Pepcid 40 mg Tab) 1 Tablets By Mouth 2 times a day Pickup at [facility]/pharmacy #6177 Unchanged hydrocortisone (hydrocortisone 5 mg Tab) See instructions has 1 week left. Contact prescribing physician if questions or concerns Pharmacy Information [facility]/pharmacy #[id number]: [address] [place], [place] [id number] [phone] Allergies No Known Medication Allergies Problems Ongoing - Any problem that you are currently receiving treatment for. Abdominal pain Adrenal mass Anxiety Bipolar Cannabis abuse Depressive disorder Diabetes mellitus Diarrhea Essential hypertension First degree atrioventricular block Gastroesophageal reflux disease Headache History of bypass of stomach. Iron deficiency Irregular periods Irritable bowel syndrome with diarrhea Microcytic anemia Migraine Morbid obesity Nausea Neoplasm of brain Neuropathy Nicotine dependence Obstructive sleep apnea syndrome Plantar fasciitis Polycystic ovary syndrome RUQ pain Type 2 diabetes mellitus without complication Historical - Any problem that you are no longer receiving treatment for. Dysmenorrhea Glioma Goiter Insomnia Patient Survey You may receive a survey via text or e-mail asking about your office visit. Please share your experience with us by completing your survey. We appreciate your feedback and thank you for choosing us for your care. Normal [facility] Gastroenterology Office/Clin ic Noteon 03-19-2024 Gastroenterology Office/Clinic Note Gastroenterology Office/Clinic Note Chief Complaint ref by Ricky for RUQ pain, IBS HPI Staff Patient is a 33 year old female who was referred by Bharat for RUQ pain and IBS w/constipation. PCP ordered a HIDA scan for RUQ pain, Bentyl for IBS and referral to GI for tx/eval. RUQ pain worse after eating. PCP started her on Verapamil to try as pt requested to try to help symptoms as this helped her mother who has the same symptoms. Just had adrenal gland removed Constipation: How many BM a day or a week: just depends on the day, not feeling like your emptying all the way. Constant? Or alternate with normal BM or diarrhea: mainly constipation. What treatment have you tried before: -Fibers - yes -Senna - yes -Milk of magnesia - no -Linzess (Linaclotide) - no -Amitiza (lubiprostone) - no -Motegrity (Prucalopride) - no History of Present Illness for 2 months, mid-abd pain, radiating up discomfort, severe constipation (taking, miralax helped, but still feels backed up) had Fredrick en y at [facility], had CT with iv contrast, reports it was normal, labs were good Review of Systems PHQ Score Initial Depression Screen Score: 0 SCORE Physical Exam Vitals & Measurements HR: 86(Peripheral) RR: 16 BP: 132/88 HT: 67 in HT: 169 cm WT: 76 kg WT: 167.2 lb BMI: 26.61 Assessment/Plan 1. RUQ pain (R10.11: Right upper quadrant pain) 2. Irritable bowel syndrome with diarrhea (K58.0: Irritable bowel syndrome with diarrhea) Follow-up No qualifying data available Problem List/Past Medical History Ongoing Abdominal pain Adrenal mass Anxiety Bipolar Cannabis abuse Depressive disorder Diabetes mellitus Diarrhea Essential hypertension First degree atrioventricular block Gastroesophageal reflux disease Headache History of bypass of stomach. 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 Medications hydrocortisone 5 mg Tab, See Instructions Pepcid, See Instructions Allergies No Known Medication Allergies Social History Tobacco 10 or more cigarettes (1/2 pack or more)/day in last 30 days Tobacco Use:., 03/19/2024 Family History Family history is negative She describes mostly epigastric pain, concerned about anastomotic ulcer after the Fredrick-en-Y last year, Pepcid did help, use open capsule omeprazole, avoids smoking, Carafate as needed, Pepcid as needed She reported imaging and labs were negative at [facility], will obtain the records Will proceed with EGD with random biopsies For constipation, we discussed lifestyle modifications, restart fibers, MiraLAX 1-2 times a day as needed, if fails in the future might consider Linzess Normal [facility] Comment on above: Result Comment: Elec tronically Signed By: Frank URIBE, Kvng Duran\.br\Date and Time Signed: 03/19/24 14:45 EDT Magnesium SerPl-ncon 02-25 Magnesium [Mass/Vol] 2.2 mg/dL Normal 1.7-2.3 [facility] Comment on above: Order Comment: Speci men Type: BLOOD SPECIMENOrdering Facility: [facility] Address: [address] [place], [place] [id number] Performed By: #### 2 4362-6, ####[facility] LABIA [id number] [place] [address] Renal function [address] [place] [address] 02-26-2024 Albumin [Mass/Vol] 4.3 g/dL Normal 3.9-4.9 [facility] Comment on above: Order Comment: Speci men Type: BLOOD SPECIMENOrdering Facility: [facility] Address: [address] [place] [address] Performed By: #### 2 4362-6, ####[facility] LABIA [id number] [place] [address] Anion gap [Moles/Vol] 7 mmol/L Low 8-15 [facility] Comment on above: Order Comment: Speci men Type: BLOOD SPECIMENOrdering Facility: [facility] Address: [address] [place] [address] Performed By: #### 2 4362-6, ####[facility] LABIA [id number] [place] [address] Calcium [Mass/Vol] 9.5 mg/dL Normal 8.5-10.2 [facility] Comment on above: Order Comment: Speci men Type: BLOOD SPECIMENOrdering Facility: [facility] Address: [address] [place] [address] Performed By: #### 2 4362-6, ####[facility] LABCLIA [id number] [place] [address] Chloride [Moles/Vol] 107 mmol/L Normal 98-107 [facility] Comment on above: Order Comment: Speci men Type: BLOOD SPECIMENOrdering Facility: [facility] Address: [address] [place] [address] Performed By: #### 2 4362-6, ####[facility] LABCLIA [id number] [place] [address] CO2 [Moles/Vol] 25 mmol/L Normal 22-30 [facility] Comment on above: Order Comment: Speci men Type: BLOOD SPECIMENOrdering Facility: [facility] Address: [address] [place] [address] Performed By: #### 2 4362-6, ####[facility] LABCLIA [id number] [place] [address] Creatinine [Mass/Vol] 0.93 mg/dL Normal 0.58-0.96 [facility] Comment on above: Order Comment: Speci men Type: BLOOD SPECIMENOrdering Facility: [facility] Address: [address] [place] [address] Performed By: #### 2 4362-6, ####[facility] LABCLIA [id number] [place] [address] Creatinine and Glomerular filtration rate.predicted panel (S/P/Bld) 84 mL/min/1.73m??? Normal >=60 [facility] Comment on above: Order Comment: Speci men Type: BLOOD SPECIMENOrdering Facility: [facility] Address: [address] [place] [address] Result Comment: Rachel mated Glomerular Filtration Rate [...] reflect actual GFR. Performed By: #### 2 4362-6, ####[facility] LABCLIA [id number] [place] [address] Glucose [Mass/Vol] 86 mg/dL Normal 74-99 [facility] Comment on above: Order Comment: Speci men Type: BLOOD SPECIMENOrdering Facility: [facility] Address: [address] [place] [address] Result Comment: The [place] [employer] (ADA) provides guidance for cutoff values for fasting glucose and random glucose. The ADA defines fasting as no caloric intake for at least 8 hours. Fasting plasma glucose results between 100 to 125 mg/dL indicate increased risk for diabetes (prediabetes).Fasting plasma glucose results greater than or equal to 126 mg/dL meet the criteria for diagnosis of diabetes. In the absence of unequivocal hyperglycemia, results should be confirmed by repeat testing. In a patient with classic symptoms of hyperglycemia or hyperglycemic crisis, random plasma glucose results greater than or equal to 200 mg/dL meet the criteria for diagnosis of diabetes.Reference: Standards of Medical Care in Diabetes 2016, [place] [employer]. Diabetes Care. 2016.39(Suppl 1). Performed By: #### 2 4362-6, ####[facility] LABCLIA [id number] [place] [address] Phosphate [Mass/Vol] 4.2 mg/dL Normal 2.7-4.8 [facility] Comment on above: Order Comment: Speci men Type: BLOOD SPECIMENOrdering Facility: [facility] Address: [address] [place] [address] Performed By: #### 2 4362-6, ####[facility] LABCLIA [id number] [place] [address] Potassium [Moles/Vol] 4.6 mmol/L Normal 3.7-5.1 [facility] Comment on above: Order Comment: Speci men Type: BLOOD SPECIMENOrdering Facility: [facility] Address: [address] [place] [address] Performed By: #### 2 4362-6, ####[facility] LABCLIA [id number] [place] [address] Sodium [Moles/Vol] 139 mmol/L Normal 136-144 [facility] Comment on above: Order Comment: Speci men Type: BLOOD SPECIMENOrdering Facility: [facility] Address: [address] [place], [place] [address] Performed By: #### 2 4362-6, ####[facility] LABCLIA [id number] [place] [address] Urea nitrogen [Mass/Vol] 30 mg/dL High 7-21 [facility] Comment on above: Order Comment: Speci men Type: BLOOD SPECIMENOrdering Facility: [facility] Address: [address] [place], [place] [address] Performed By: #### 2 4362-6, ####[facility] LABCLIA [id number] [place] [address] Alanine aminotransferase [En zymatic activity/volume] in Serum or PlasmaOrdered By: Eliot Dawson on 02-21-2024 ALT [Catalytic activity/Vol] 20 U/L Normal 7-52 [facility] Comment on above: Performed By: #### C BC, CMP, HEPATIC, LIPASE #### [facility] [address] [place] [id number] [place] Albumin [Mass/volume] in Ser um or Plasma by Bromocresol green (BCG) dye binding methoOrdered By: Eliot Dawson on 02-21-2024 Albumin BCG dye [Mass/Vol] 4.2 g/dL 3.5-5.7 [facility] Alkaline phosphatase [Enzyma tic activity/volume] in Serum or PlasmaOrdered By: Eliot Dawson on 02-21-2024 ALP [Catalytic activity/Vol] 103 U/L Normal 34-104 [facility] Comment on above: Performed By: #### C BC, CMP, HEPATIC, LIPASE #### [address] Aspartate aminotransferase [ Enzymatic activity/volume] in Serum or PlasmaOrdered By: Eliot Dawson on 02-21-2024 AST [Catalytic activity/Vol] 16 U/L Normal 13-39 [facility] Comment on above: Performed By: #### C BC, CMP, HEPATIC, LIPASE #### [address] Automated basophil %Ordered By: Eliot Dawson on 02-21-2024 Basophils/100 WBC (Bld) 0.4 % Normal . [facility] Comment on above: Performed By: #### C BC, CMP, HEPATIC, LIPASE #### [address] Automated basophil countOrde red By: Eliot Dawson on 02-21-2024 Basophils (Bld) [#/Vol] 0.0 10*3/uL Normal 0.0-0.2 [facility] Comment on above: Result Comment: PERF ORMED BY: [place] [address] PATHOLOGIST MARKETING SERVICES MANAGER MARY ANN LAL M.D. Performed By: #### C BC, CMP, HEPATIC, LIPASE #### [address] Automated blood monocyte cou ntOrdered By: Eliot Dawson on 02-21-2024 Monocytes (Bld) [#/Vol] 0.4 10*3/uL Normal 0.0-0.8 [facility] Comment on above: Performed By: #### C BC, CMP, HEPATIC, LIPASE #### [address] Automated eosinophil %Ordere d By: Eliot Dawson on 02-21-2024 Eosinophils/100 WBC (Bld) 0.4 % Normal . [facility] Comment on above: Performed By: #### C BC, CMP, HEPATIC, LIPASE #### [address] Automated eosinophil countOr dered By: Eliot Dawson on 02-21-2024 Eosinophils (Bld) [#/Vol] 0.0 10*3/uL Normal 0.0-0.45 [facility] Comment on above: Performed By: #### C BC, CMP, HEPATIC, LIPASE #### [facility] [address] Automated monocyte %Ordered By: Eliot Dawson on 02-21-2024 Monocytes/100 WBC (Bld) 3.4 % Normal . [facility] Comment on above: Performed By: #### C BC, CMP, HEPATIC, LIPASE #### [facility] [address] Automated neutrophil %Ordere d By: Eliot Dawson on 02-21-2024 Neutrophils/100 WBC (Bld) 79.3 % Normal . [facility] Comment on above: Performed By: #### C BC, CMP, HEPATIC, LIPASE #### [facility] [address] Bilirubin Test strip Ql (U)O rdered By: Eliot Dawson on 02-21-2024 Bilirubin Ql (U) Negative Negative [facility] Bilirubin.direct [Mass/volum e] in Serum or PlasmaOrdered By: Eliot Dawson on 02-21-2024 Bilirubin.direct [Mass/Vol] 0.10 mg/dL 0.03-0.18 [facility] Bilirubin.total [Mass/volume ] in Serum or PlasmaOrdered By: Eliot Dawson on 02-21-2024 Bilirubin [Mass/Vol] 0.7 mg/dL Normal 0.3-1.0 [facility] Comment on above: Performed By: #### C BC, CMP, HEPATIC, LIPASE #### [facility] [address] abdomen pelvis w conon CT abdomen pelvis w con [facility] [address] [place] [address] [place] [address] CT Scan Report Signed Patient: Heidi Joy MR#: [id number] 640 : 1990 Acct:[id number] Age/Sex: 33 / F ADM Date: 02/21/24 Loc: ER Room: Type: [facility] ER Attending Dr: Copies to: Eliot Dawson APRN Ordering Provider: Eliot Dawson APRN Date of Service: 02/21/24 CT/CT abdomen pelvis w con: Abdominal Pain CT ABDOMEN AND PELVIS WITH CONTRAST COMPARISON: None CLINICAL DATA: Epigastric pain and constipation for the past month. Spiral images were obtained through the abdomen and pelvis following 90 mL Isovue-300. This CT exam was performed using one or more following dose reduction techniques: Automated exposure control, adjustment of the mA and/or kV according to patient size, or use of iterative reconstruction technique. Limited cuts through the lung bases show no contributory pulmonary findings. No calcified gallstones are identified. No intrahepatic masses are seen. The spleen, pancreas and adrenal glands show no acute abnormalities. There are symmetric renal nephrograms, without hydronephrosis. There is early excretion of contrast opacifying the collecting system which limits evaluation for stones. Tiny renal stones are still suspected. The abdominal aorta is normal caliber. There are few small lymph nodes. No ascites is seen. There are postoperative changes of bariatric surgery. No dilated small bowel loops are present. There is stool within the colon. Dextroscoliotic curvature, Schmorl's nodes and degenerative changes are noted at the spine. There is associated stenosis at the lumbosacral junction. Images through the pelvis show no appendiceal inflammation. There are no dilated small bowel loops. There is stool within the colon. No diverticular disease is seen. No adnexal cysts are present. There are several pelvic phleboliths. No bladder abnormalities are noted. There is a trace amount of free fluid posteriorly on the right. 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 NO ACUTE FINDINGS. Impression dictated by: Josefina Conley M.D.02/21/2024 11:45 AM Dictation Location: [place] [address] Transcribed By: [facility] 02/21/24 1145 Dictated By: Josefina Conley MD 02/21/24 1137 Signed By: 02/21/24 1145 Normal [facility] Calcium [Mass/volume] in Ser um or PlasmaOrdered By: Eliot Dawson on 02-21-2024 Calcium [Mass/Vol] 8.9 mg/dL Normal 8.6-10.[address] [facility] Comment on above: Performed By: #### C BC, CMP, HEPATIC, LIPASE #### [address] Carbon dioxide, total [Moles /volume] in Serum or PlasmaOrdered By: Eliot Dawson on 02-21-2024 CO2 [Moles/Vol] 24.5 mmol/L Normal 21.0-31.0 [facility] Comment on above: Performed By: #### C BC, CMP, HEPATIC, LIPASE #### [address] Chloride [Moles/volume] in S eileen or PlasmaOrdered By: Eliot Dawson on 02-21-2024 Chloride [Moles/Vol] 110 mmol/L High 98-107 [facility] Comment on above: Performed By: #### C BC, CMP, HEPATIC, LIPASE #### [address] Color of Urine by AutoOrdere d By: Eliot Dawson on 02-21-2024 Color (U) Light-yellow Normal Yellow [facility] Comment on above: Order Comment: Name Collection Type:: Clean-Voided Midstream Performed By: #### U HCG, UA #### [address] Complete Blood Count Auto Di ffon 02-21-2024 Mean Corpuscular HGB Conc 33.8 g/dL Normal 32.0-35.0 [facility] Comment on above: Performed By: #### C BC, CMP, HEPATIC, LIPASE #### [place] [address] [place] Monocytes/100 WBC (Bld) 17.21 % Normal 0.00-20.00 T jaguar [facility] Comment on above: Performed By: #### C BC, CMP, HEPATIC, LIPASE #### [place] [address] [place] NRBC% 0.1 /100{WBC} Normal 0-0.5 [facility] Comment on above: Performed By: #### C BC, CMP, HEPATIC, LIPASE #### [address] Comprehensive Metabolic Pane willian 02-21-2024 Albumin [Mass/Vol] 4.2 g/dL Normal 3.5-5.7 [facility] Comment on above: Performed By: #### C BC, CMP, HEPATIC, LIPASE #### [address] Creatinine Clr Calc Pharmacy 105.28 Normal [facility] Comment on above: Performed By: #### C BC, CMP, HEPATIC, LIPASE #### [address] GFR/1.73 sq M.predicted MDRD (S/P/Bld) [Vol rate/Area] mL/min/{1.73_m2} Normal [facility] Comment on above: Performed By: #### C BC, CMP, HEPATIC, LIPASE #### [address] Creatinine [Mass/volume] in Serum or PlasmaOrdered By: Eliot Dawson on 02-21-2024 Creatinine [Mass/Vol] 0.84 mg/dL Normal 0.60-1.20 [facility] Comment on above: Performed By: #### C BC, CMP, HEPATIC, LIPASE #### [address] ECG 12 lead ECGon 02-21-2024 ECG 12 lead ECG [facility] [place] [address] Electrocardiograph Report Signed Patient: Heidi Joy MR#: [id number] 640 : 1990 Acct:[id number] Age/Sex: 33 / F ADM Date: 02/21/24 Loc: ER Room: Type: [facility] ER Attending Dr: Ordering Provider: Eliot Dawson APRN Date of Service: 02/21/24 ECG/ECG 12 lead ECG: Abdominal Pain Copies to: Test Reason : Blood Pressure : 148/93 mmHG Vent. Rate : 79 BPM Atrial Rate : 79 BPM P-R Int : 230 ms QRS Dur : 96 ms QT Int : 380 ms P-R-T Axes : 44 46 27 degrees QTcB Int : 435 ms Sinus rhythm with 1st degree AV block Otherwise normal ECG No previous ECGs available Confirmed by DANDY ESPARZA MD ([id number]) on 02/21/2024 3:59:05 PM Referred By: Electronically Signed By: DANDY ESPARZA MD Transcribed By: MUS Signed By Dandy Esparza MD 02/02 04/28 1559 Normal [facility] Erythrocyte distribution wid th [Ratio] by Automated countOrdered By: Eliot Dawson on 02-21-2024 Erythrocyte distribution width (RBC) [Ratio] 15.0 % Normal 11.9-15.3 [facility] Comment on above: Performed By: #### C BC, CMP, HEPATIC, LIPASE #### [facility] [address] [place] [address] Erythrocytes [#/volume] in B lood by Automated countOrdered By: Eliot Dawson on 02-21-2024 RBC (Bld) [#/Vol] 4.94 10*6/uL Normal 3.60-5.00 [facility] Comment on above: Performed By: #### C BC, CMP, HEPATIC, LIPASE #### [facility] [address] [place] [address] [place] Glucose [Mass/volume] in Ser um or PlasmaOrdered By: Eliot Dawson on 02-21-2024 Glucose [Mass/Vol] 86 mg/dL Normal 70-[address] [facility] Comment on above: ADA recommended refe rence rangeRandom Glucose Reference Range is dependent on time and content of last meal. Glucose of more than 200 mg/dL in a nonstressed, ambulatory subject supports the diagnosis of Diabetes Mellitus. Result Comment: [place] om Glucose Reference Range is dependent on time and content of last meal. Glucose of more than 200 mg/dL in a nonstressed, ambulatory subject supports the diagnosis of Diabetes Mellitus. ADA recommended reference range Performed By: #### C BC, CMP, HEPATIC, LIPASE #### [facility] [address] [id number] [place] Glucose [Mass/volume] in Uri ne by Test stripOrdered By: Eliot Dawson on 02-21-2024 Glucose Test strip (U) [Mass/Vol] Normal mg/dL Normal [facility] HCG ( test) IA.rapi d Ql (U)Ordered By: Eliot Dawson on 02-21-2024 HCG ( test) Ql (U) Negative [facility] HCG,Urineon 02-21-2024 Beta HCG ( test) Ql (U) Negative Normal [facility] Comment on above: Order Comment: Name Collection Type:: Clean-Voided Midstream Result Comment: PERF ORMED BY: [place] [address] PATHOLOGIST MARKETING SERVICES MANAGER MARY ANN LAL M.D. Performed By: #### U HCG, UA #### [address] Hematocrit [Volume Fraction] of Blood by Automated countOrdered By: Eliot Dawson on 02-21-2024 Hematocrit (Bld) [Volume fraction] 43.1 % Normal 34.0-46.4 [facility] Comment on above: Performed By: #### C BC, CMP, HEPATIC, LIPASE #### [address] Hemoglobin Test strip Ql (U) Ordered By: Eliot Dawson on 02-21-2024 Hemoglobin Ql (U) Negative Negative [facility] Hemoglobin [Mass/volume] in BloodOrdered By: Eliot Dawson on 02-21-2024 Hemoglobin (Bld) [Mass/Vol] 14.6 g/dL Normal 11.8-15.4 [facility] Comment on above: Performed By: #### C BC, CMP, HEPATIC, LIPASE #### [address] Hepatic Panelon 02-21-2024 Bilirubin,Indirect 0.6 mg/dL Normal [facility] Comment on above: Performed By: #### C BC, CMP, HEPATIC, LIPASE #### [address] Bilirubin.indirect [Mass/Vol] 0.10 mg/dL Normal 0.03-0.18 [facility] Comment on above: Performed By: #### C BC, CMP, HEPATIC, LIPASE #### [facility] [address] Ketones [Presence] in Urine by Test stripOrdered By: Eliot Dawson on 02-21-2024 Ketones Ql (U) Negative Normal Negative [facility] Comment on above: Order Comment: Name Collection Type:: Clean-Voided Midstream Performed By: #### U HCG, UA #### [facility] [address] [place] [address] Leukocyte esterase [Presence ] in Urine by Test stripOrdered By: Eliot Dawson on 02-21-2024 Leukocyte esterase Test strip Ql (U) Negative Normal Negative [facility] Comment on above: Order Comment: Name Collection Type:: Clean-Voided Midstream Performed By: #### U HCG, UA #### [facility] [address] [place] [address] Leukocytes [#/volume] correc [place] for nucleated erythrocytes in Blood by Automated counOrdered By: Eliot Dawson on 02-21-2024 WBC corrected for nucl RBC Auto (Bld) [#/Vol] 10.9 10*3/uL 3.8-11.6 [facility] Leukocytes [#/volume] in Blo od by Automated countOrdered By: Eliot Dawson on 02-21-2024 WBC (Bld) [#/Vol] 10.9 10*3/uL Normal 3.8-11.6 [facility] Comment on above: Performed By: #### C BC, CMP, HEPATIC, LIPASE #### [facility] [address] [place] [address] [place] Lipase [Enzymatic activity/v olume] in Serum or PlasmaOrdered By: Eliot Dawson on 02-21-2024 Lipase [Catalytic activity/Vol] 74.0 U/L Normal 11.0-82.0 [facility] Comment on above: Result Comment: PERF ORMED BY: [place] [address] PATHOLOGIST MARKETING SERVICES MANAGER MARY ANN LAL M.D. Performed By: #### C BC, CMP, HEPATIC, LIPASE #### [address] Lymphocytes [#/volume] in Bl ood by Automated countOrdered By: Eliot Dawson on 02-21-2024 Lymphocytes (Bld) [#/Vol] 1.8 10*3/uL Normal 1.00-4.8 [facility] Comment on above: Performed By: #### C BC, CMP, HEPATIC, LIPASE #### [address] Lymphocytes/100 leukocytes i n Blood by Automated countOrdered By: Eliot Dawson on 02-21-2024 Lymphocytes/100 WBC (Bld) 16.5 % Normal . [facility] Comment on above: Performed By: #### C BC, CMP, HEPATIC, LIPASE #### [address] MCH [Entitic mass] by [employer]oma [place] countOrdered By: Eliot Dawson on 02-21-2024 MCH (RBC) [Entitic mass] 29.5 pg Normal 24.7-34.3 [facility] Comment on above: Performed By: #### C BC, CMP, HEPATIC, LIPASE #### [address] MCHC Auto (RBC) [Mass/Vol]Or dered By: Eliot Dawson on 02-21-2024 MCHC (RBC) [Mass/Vol] 33.8 g/dL 32.0-35.0 [facility] MCV [Entitic volume] by Auto mated countOrdered By: Eliot Dawson on 02-21-2024 MCV (RBC) [Entitic vol] 87.4 fL Normal 80-100 [facility] Comment on above: Performed By: #### C BC, CMP, HEPATIC, LIPASE #### [address] Monocyte distribution width [Entitic volume] in Blood by AutomatedOrdered By: Eliot Dawson on 02-21-2024 Monocyte distribution width Auto (Bld) [Entitic vol] 17.21 % 0.00-20.00 [facility] Neutrophils [#/volume] in Bl ood by Automated countOrdered By: Eliot Dawson on 02-21-2024 Neutrophils (Bld) [#/Vol] 8.7 10*3/uL High 1.8-7.7 [facility] Comment on above: Performed By: #### C BC, CMP, HEPATIC, LIPASE #### [facility] [address] Nitrite Test strip Ql (U)Ord ered By: Eliot Dawson on 02-21-2024 Nitrite Ql (U) Negative Negative [facility] No Panel InformationOrdered By: Eliot Dawson on 02-21-2024 Estimated GFR (CKD-EPI) > 60.0 mL/Min [facility] Creatinine Clearance (Chem 105.28 [facility] Nucleated erythrocytes [Pres ence] in Blood by Automated countOrdered By: Eliot Dawson on 02-21-2024 Nucleated RBC Auto Ql (Bld) 0.1 /100{WBC} 0-0.5 [facility] Platelet mean volume [Entiti c volume] in Blood by Automated countOrdered By: Eliot Dawson on 02-21-2024 Platelet mean volume (Bld) [Entitic vol] 9.6 fL Normal 6.3-10.7 [facility] Comment on above: Performed By: #### C BC, CMP, HEPATIC, LIPASE #### [facility] [address] [place] [address] [place] Platelets [#/volume] in Bloo d by Automated countOrdered By: Eliot Dawson on 02-21-2024 Platelets (Bld) [#/Vol] 221 10*3/uL Normal 150-450 [facility] Comment on above: Performed By: #### C BC, CMP, HEPATIC, LIPASE #### [place] [address] [place] Potassium [Moles/volume] in Serum or PlasmaOrdered By: Eliot Dawson on 02-21-2024 Potassium [Moles/Vol] 4.4 mmol/L Normal 3.5-5.1 [facility] Comment on above: Performed By: #### C BC, CMP, HEPATIC, LIPASE #### [address] Protein Test strip (U) [Mass /Vol]Ordered By: Eliot Dawson on 02-21-2024 Protein (U) [Mass/Vol] Negative Negative [facility] Protein [Mass/volume] in Ser um or PlasmaOrdered By: Eliot Dawson on 02-21-2024 Protein [Mass/Vol] 6.9 g/dL Normal 6.4-8.[address] [facility] Comment on above: Performed By: #### C BC, CMP, HEPATIC, LIPASE #### [address] Serum globulin measurement b y calculation (mass/volume)Ordered By: Eliot Dawson on 02-21-2024 Globulin (S) [Mass/Vol] 2.7 g/dL Normal [facility] Comment on above: Performed By: #### C BC, CMP, HEPATIC, LIPASE #### [address] Serum or plasma albumin/glob ulin mass ratioOrdered By: Eliot Dawson on 02-21-2024 Albumin/Globulin [Mass ratio] 1.6 {ratio} [facility] Comment on above: Performed By: #### C BC, CMP, HEPATIC, LIPASE #### [address] Serum or plasma anion gap de terminationOrdered By: Eliot Dawson on 02-21-2024 Anion gap [Moles/Vol] 10.9 mmol/L Normal 6.0-15.0 [facility] Comment on above: Performed By: #### C BC, CMP, HEPATIC, LIPASE #### [address] Serum or plasma non-glucuron idated bilirubin measurement (mass/volume)Ordered By: Eliot Dawson on 02-21-2024 Bilirubin.indirect [Mass/Vol] 0.6 mg/dL [facility] Sodium [Moles/volume] in Ser um or PlasmaOrdered By: Eliot Dawson on 02-21-2024 Sodium [Moles/Vol] 141 mmol/L Normal 136-[address] [facility] Comment on above: Performed By: #### C BC, CMP, HEPATIC, LIPASE #### [facility] [address] Specific gravity Test strip (U) [Rel density]Ordered By: Eliot Dawson on 02-21-2024 Specific gravity (U) [Rel density] 1.025 1.001-1.03 0 [facility] Urea nitrogen [Mass/volume] in Serum or PlasmaOrdered By: Eliot Dawson on 02-21-2024 Urea nitrogen [Mass/Vol] 34 mg/dL High 7-25 [facility] Comment on above: Performed By: #### C BC, CMP, HEPATIC, LIPASE #### [facility] [address] [place] [address] [place] Urinalysison 02-21-2024 Bilirubin,Urine Negative Normal Negative [facility] Comment on above: Order Comment: Name Collection Type:: Clean-Voided Midstream Performed By: #### U HCG, UA #### [place] [address] [place] Glucose Ql (U) Normal Normal Normal [facility] Comment on above: Order Comment: Name Collection Type:: Clean-Voided Midstream Performed By: #### U HCG, UA #### [facility] [address] [place] [address] [place] Nitrite,Urine Negative Normal Negative [facility] Comment on above: Order Comment: Name Collection Type:: Clean-Voided Midstream Performed By: #### U HCG, UA #### [place] [address] [place] Occult Blood,Urine Negative Normal Negative [facility] Comment on above: Order Comment: Name Collection Type:: Clean-Voided Midstream Performed By: #### U HCG, UA #### [place] [id number] [place] Protein,Urine Negative Normal Negative [facility] Comment on above: Order Comment: Name Collection Type:: Clean-Voided Midstream Performed By: #### U HCG, UA #### [address] Specificy [place],Urine 1.025 Normal 1.00 1-1.03 0 [facility] Comment on above: Order Comment: Name Collection Type:: Clean-Voided Midstream Performed By: #### U HCG, UA #### [address] Urobilinogen,Urine Normal Normal Normal [facility] Comment on above: Order Comment: Name Collection Type:: Clean-Voided Midstream Performed By: #### U HCG, UA #### [address] Urine appearanceOrdered By: Eliot Dawson on 02-21-2024 Appearance (U) Clear Normal Clear [facility] Comment on above: Order Comment: Name Collection Type:: Clean-Voided Midstream Performed By: #### U HCG, UA #### [address] Urobilinogen Test strip (U) [Mass/Vol]Ordered By: Eliot Dawson on 02-21-2024 Urobilinogen (U) [Mass/Vol] Normal mg/dL Normal [facility] pH of Urine by Test stripOrd ered By: Eliot Dawson on 02-21-2024 pH (U) 5.5 [pH] Normal 5.0-9.0 [facility] Comment on above: Order Comment: Name Collection Type:: Clean-Voided Midstream Performed By: #### U HCG, UA #### [address] XR ABDOMEN 1 VIEWon 02-20-20 24 XR ABDOMEN 1 VIEW FINDINGS: Moderate volume of ascending colon stool, tapering through the transverse colon. No mass effect or free air. No evidence of bowel obstruction. GE junction, left mid abdominal surgical clips. IMPRESSION: Ascending colon stool, no obstruction TRANSCRIBED BY: ELECTRONICALLY SIGNED BY: Mesfin Wheeler MD Normal Not Available Aldost SerPl-mCncon 02-19-20 24 Aldosterone [Mass/Vol] <3.0 Normal 0.0-<35.4 [facility] Comment on above: Order Comment: Speci men Type: BLOOD SPECIMENOrdering Facility: [facility] Address: [address] [place] [address] Result Comment: The reference interval for serum/plasma aldosterone is based on a normal sodium intake and upright position. High sodium intake may suppress aldosterone and low sodium intake may increase aldosterone.The supine reference interval is <23.7 ng/dL.A ratio of aldosterone in ng/dL to direct renin in pg/mL greater than or equal to 3.8 is a positive screening test result for primary aldosteronism, when aldosterone is greater than or equal to 15 ng/dL. Performed By: #### 1 763-2 ####[facility] LABCLIA [id number] [place] [address] [place]#### RENIND ####[facility] LABCLIA [id number] [address] LABCLIA [id number] [place] [address] DIRECT RENIN PLASMAon 2023 DIRECT RENIN 8.7 pg/mL Normal 4.2-52.2 [facility] Comment on above: Order Comment: Peter men Type: BLOOD SPECIMENOrdering Facility: [facility] Address: [address] [place] [address] Result Comment: A ra yeu of aldosterone in ng/dL to direct renin in pg/mL greater than or equal to 3.8 is a positive screening test result for primary aldosteronism, when aldosterone is greater than or equal to 15 ng/dL.The reference interval for direct renin is based on an upright position.The supine reference intervals are:Age <41 years: 3.2-33.2 pg/mLAge >=41 years: 2.5-45.1 pg/mL Performed By: #### 1 763-2 ####[facility] LABCLIA [id number] [place] [address] [place]#### RENIND ####[facility] LABCLIA [id number] [address] LABCLIA [id number] [place] [address] PATIENT UPRIGHT OR SUPINE Upright Normal [facility] Comment on above: Order Comment: Speci men Type: BLOOD SPECIMENOrdering Facility: [facility] Address: [address] [place] [address] Performed By: #### 1 763-2 ####[facility] LABCLIA [id number] [place] [address] [place]#### RENIND ####[facility] LABCLIA [id number] [address] LABCLIA [id number] [place] [address] Magnesium [facility] 02-18 Magnesium [Mass/Vol] 2.2 mg/dL Normal 1.7-2.3 [facility] Comment on above: Order Comment: Speci men Type: BLOOD SPECIMENOrdering Facility: [facility] Address: [address] [place] [address] Performed By: #### 1 9123-9, 87360-4 ####[facility] LABIA [id number] [place] [address] [address]al [address] [place] [address] 02-19-2024 Albumin [Mass/Vol] 4.6 g/dL Normal 3.9-4.9 [facility] Comment on above: Order Comment: Speci men Type: BLOOD SPECIMENOrdering Facility: [facility] Address: [address] [place] [address] Performed By: #### 1 9123-9, 64695-5 ####[facility] LABCLIA [id number] [place] [address] Anion gap [Moles/Vol] 9 mmol/L Normal 8-15 [facility] Comment on above: Order Comment: Speci men Type: BLOOD SPECIMENOrdering Facility: [facility] Address: [address] [place] [address] Performed By: #### 1 9123-9, 39702-0 ####[facility] LABCLIA [id number] [place] [address] Calcium [Mass/Vol] 9.9 mg/dL Normal 8.5-10.2 [facility] Comment on above: Order Comment: Speci men Type: BLOOD SPECIMENOrdering Facility: [facility] Address: [address] [place], [place] [address] Performed By: #### 1 9123-9, 08248-1 ####[facility] LABCLIA [id number] [place] [address] Chloride [Moles/Vol] 107 mmol/L Normal 98-107 [facility] Comment on above: Order Comment: Speci men Type: BLOOD SPECIMENOrdering Facility: [facility] Address: [address] [place] [address] Performed By: #### 1 9123-9, 21471-8 ####[facility] LABCLIA [id number] [place] [address] CO2 [Moles/Vol] 23 mmol/L Normal 22-30 [facility] Comment on above: Order Comment: Speci men Type: BLOOD SPECIMENOrdering Facility: [facility] Address: [address] [place] [address] Performed By: #### 1 9123-9, 87202-7 ####[facility] LABCLIA [id number] [place] [address] Creatinine [Mass/Vol] 1.01 mg/dL High 0.58-0.96 [facility] Comment on above: Order Comment: Speci men Type: BLOOD SPECIMENOrdering Facility: [facility] Address: [address] [place] [address] Performed By: #### 1 9123-9, 66983-1 ####[facility] LABCLIA [id number] [place] [address] Creatinine and Glomerular filtration rate.predicted panel (S/P/Bld) 76 mL/min/1.73m??? Normal >=60 [facility] Comment on above: Order Comment: Peter myles Type: BLOOD SPECIMENOrdering Facility: [facility] Address: [address] [place] [address] Result Comment: Rachel mated Glomerular Filtration Rate [...] accurately reflect actual GFR. Performed By: #### 1 9123-9, 18865-1 ####[facility] LABCLIA [id number] [place] [address] Glucose [Mass/Vol] 142 mg/dL High 74-99 [facility] Comment on above: Order Comment: Peter myles Type: BLOOD SPECIMENOrdering Facility: [facility] Address: [address] [place] [address] Result Comment: The [place] Diabetes [employer] (ADA) provides guidance for cutoff values for fasting glucose and random glucose. The ADA defines fasting as no caloric intake for at least 8 hours. Fasting plasma glucose results between 100 to 125 mg/dL indicate increased risk for diabetes (prediabetes).Fasting plasma glucose results greater than or equal to 126 mg/dL meet the criteria for diagnosis of diabetes. In the absence of unequivocal hyperglycemia, results should be confirmed by repeat testing. In a patient with classic symptoms of hyperglycemia or hyperglycemic crisis, random plasma glucose results greater than or equal to 200 mg/dL meet the criteria for diagnosis of diabetes.Reference: Standards of Medical Care in Diabetes 2016, [place] [employer]. Diabetes Care. 2016.39(Suppl 1). Performed By: #### 1 9123-9, 60869-2 ####[facility] LABCLIA [id number] [place] [address] Phosphate [Mass/Vol] 4.8 mg/dL Normal 2.7-4.8 [facility] Comment on above: Order Comment: Speci men Type: BLOOD SPECIMENOrdering Facility: [facility] Address: [address] [place] [address] Performed By: #### 1 9123-9, 65378-7 ####[facility] LABCLIA [id number] [place] [address] Potassium [Moles/Vol] 4.2 mmol/L Normal 3.7-5.1 [facility] Comment on above: Order Comment: Speci men Type: BLOOD SPECIMENOrdering Facility: [facility] Address: [address] [place], [place] [address] Performed By: #### 1 9123-9, 19302-5 ####[facility] LABIA [id number] [place] [address] Sodium [Moles/Vol] 139 mmol/L Normal 136-144 [facility] Comment on above: Order Comment: Speci men Type: BLOOD SPECIMENOrdering Facility: [facility] Address: [address] [place], [place] [address] Performed By: #### 1 9123-9, 94039-1 ####[facility] LABCLIA [id number] [place] [address] Urea nitrogen [Mass/Vol] 39 mg/dL High 7-21 [facility] Comment on above: Order Comment: Speci men Type: BLOOD SPECIMENOrdering Facility: [facility] Address: [address] [place] [address] Performed By: #### 1 9123-9, 21608-2 ####[facility] LABCLIA [id number] [place] [address] Albumin [facility] 07-11-2 024 Albumin [Mass/Vol] 4.6 g/dL Normal 3.9-4.9 [facility] Comment on above: Order Comment: Speci men Type: BLOOD SPECIMENOrdering Facility: [facility] Address: [address] [place] [address] Performed By: #### 1 9123-9, 2777-1, 24980-3, 1751-02 ####[facility] LABCLIA [id number] [place] [address] [facility] Aldosterone [Mass/Vol] 4.5 ng/dL Normal 0.0-<35.4 [facility] Comment on above: Order Comment: Speci men Type: BLOOD SPECIMENOrdering Facility: [facility] Address: [address] [place] [address] Result Comment: The reference interval for serum/plasma aldosterone is based on a normal sodium intake and upright position. High sodium intake may suppress aldosterone and low sodium intake may increase aldosterone.The supine reference interval is <23.7 ng/dL.A ratio of aldosterone in ng/dL to direct renin in pg/mL greater than or equal to 3.8 is a positive screening test result for primary aldosteronism, when aldosterone is greater than or equal to 15 ng/dL. Performed By: #### R ENIND ####[facility] LABCLIA [id number] [place] [id number] [place] [facility] LABCLIA [id number] [place] [address]#### 1763-2 ####[facility] LABCLIA [id number] [place] [id number] [place] Basic metabolic 2000 panelon 02-13-2024 Anion gap [Moles/Vol] 8 mmol/L Normal 8-15 [facility] Comment on above: Order Comment: Speci men Type: BLOOD SPECIMENOrdering Facility: [facility] Address: [address] [place] [address] Performed By: #### 1 9123-9, 2777-1, 99096-6, 1751-02 ####[facility] LABCLIA [id number] [place] [address] Calcium [Mass/Vol] 10.4 mg/dL High 8.5-10.2 [facility] Comment on above: Order Comment: Speci men Type: BLOOD SPECIMENOrdering Facility: [facility] Address: [address] [place] [address] Performed By: #### 1 9123-9, 2777-1, 26956-9, 17508-11 ####[facility] LABCLIA [id number] [place] [address] Chloride [Moles/Vol] 106 mmol/L Normal 98-107 [facility] Comment on above: Order Comment: Speci men Type: BLOOD SPECIMENOrdering Facility: [facility] Address: [address] [place] [address] Performed By: #### 1 9123-9, 2777-1, 20086-1, 1751-02 ####[facility] LABCLIA [id number] [place] [address] CO2 [Moles/Vol] 23 mmol/L Normal 22-30 [facility] Comment on above: Order Comment: Speci men Type: BLOOD SPECIMENOrdering Facility: [facility] Address: [address] [place] [address] Performed By: #### 1 9123-9, 2777-1, 67328-8, 1751-02 ####[facility] LABCLIA [id number] [place] [address] Creatinine [Mass/Vol] 0.98 mg/dL High 0.58-0.96 [facility] Comment on above: Order Comment: Speci men Type: BLOOD SPECIMENOrdering Facility: [facility] Address: [address] [place] [address] Performed By: #### 1 9123-9, 2777-1, 50752-2, 1751-02 ####[facility] LABCLIA [id number] [place] [address] Creatinine and Glomerular filtration rate.predicted panel (S/P/Bld) 79 mL/min/1.73m??? Normal >=60 [facility] Comment on above: Order Comment: Peter myles Type: BLOOD SPECIMENOrdering Facility: [facility] Address: [address] [place] [address] Result Comment: Rachel mated Glomerular Filtration Rate [...] accurately reflect actual GFR. Performed By: #### 1 9123-9, 2777-1, 38779-5, 1751-02 ####[facility] LABIA [id number] [place] [address] Glucose [Mass/Vol] 106 mg/dL High 74-99 [facility] Comment on above: Order Comment: Peter myles Type: BLOOD SPECIMENOrdering Facility: [facility] Address: [address] [place] [address] Result Comment: The [place] Diabetes [employer] (ADA) provides guidance for cutoff values for fasting glucose and random glucose. The ADA defines fasting as no caloric intake for at least 8 hours. Fasting plasma glucose results between 100 to 125 mg/dL indicate increased risk for diabetes (prediabetes).Fasting plasma glucose results greater than or equal to 126 mg/dL meet the criteria for diagnosis of diabetes. In the absence of unequivocal hyperglycemia, results should be confirmed by repeat testing. In a patient with classic symptoms of hyperglycemia or hyperglycemic crisis, random plasma glucose results greater than or equal to 200 mg/dL meet the criteria for diagnosis of diabetes.Reference: Standards of Medical Care in Diabetes 2016, [place] [employer]. Diabetes Care. 2016.39(Suppl 1). Performed By: #### 1 9123-9, 2777-1, 62390-2, 1750-7 ####[facility] LABIA [id number] [place] [address] Potassium [Moles/Vol] 4.8 mmol/L Normal 3.7-5.1 [facility] Comment on above: Order Comment: Speci men Type: BLOOD SPECIMENOrdering Facility: [facility] Address: [address] [place], [place] [address] Performed By: #### 1 9123-9, 2777-1, 80493-7, 175-7 ####[facility] LABIA [id number] [place] [address] Sodium [Moles/Vol] 137 mmol/L Normal 136-144 [facility] Comment on above: Order Comment: Speci men Type: BLOOD SPECIMENOrdering Facility: [facility] Address: [address] [place] [address] Performed By: #### 1 9123-9, 2777-1, 45815-0, 175-7 ####[facility] LABIA [id number] [place] [address] Urea nitrogen [Mass/Vol] 35 mg/dL High 7-21 [facility] Comment on above: Order Comment: Speci men Type: BLOOD SPECIMENOrdering Facility: [facility] Address: [address] [place] [address] Performed By: #### 1 9123-9, 2777-1, 29812-9, 175-7 ####[facility] LABIA [id number] [place] [address] CNPNon 02-13-2024 CNPN Normal [facility] DIRECT RENIN PLASMAon 2023 DIRECT RENIN 5.0 pg/mL Normal 4.2-52.2 [facility] Comment on above: Order Comment: Speci men Type: BLOOD SPECIMENOrdering Facility: [facility] Address: [address] [place] [address] Result Comment: A ra yue of aldosterone in ng/dL to direct renin in pg/mL greater than or equal to 3.8 is a positive screening test result for primary aldosteronism, when aldosterone is greater than or equal to 15 ng/dL.The reference interval for direct renin is based on an upright position.The supine reference intervals are:Age <41 years: 3.2-33.2 pg/mLAge >=41 years: 2.5-45.1 pg/mL Performed By: #### R ENIND ####[facility] LABCLIA [id number] [address] LABCLIA [id number] [place] [id number]#### 1763-2 ####[facility] LABCLIA [id number] [address] [place] PATIENT UPRIGHT OR SUPINE Upright Normal [facility] Comment on above: Order Comment: Speci men Type: BLOOD SPECIMENOrdering Facility: [facility] Address: [address] [place] [address] Performed By: #### R ENIND ####[facility] LABCLIA [id number] [address] LABCLIA [id number] [place] [address]#### 1763-2 ####[facility] LABCLIA [id number] [address] [facility] Magnesium SerPl-mCncon 02-12 Magnesium [Mass/Vol] 2.1 mg/dL Normal 1.7-2.3 [facility] Comment on above: Order Comment: Speci men Type: BLOOD SPECIMENOrdering Facility: [facility] Address: [address] [place] [address] Performed By: #### 1 9123-9, 2777-1, 07092-6, 1751-7 ####[facility] LABCLIA [id number] [place] [id number] Phosphate SerPl-mCncon 02-12 Phosphate [Mass/Vol] 3.2 mg/dL Normal 2.7-4.8 [facility] Comment on above: Order Comment: Speci men Type: BLOOD SPECIMENOrdering Facility: [facility] Address: [address] [place] [address] Performed By: #### 1 9123-9, 2777-1, 03132-8, 1751-7 ####[facility] LABCLIA [id number] [place] [address] CNOVon 02-12-2024 CNOV Normal [facility] CNPNon 02-07-2024 CNPN Normal [facility] Magnesium SerPl-mCncon 02-06 Magnesium [Mass/Vol] 2.3 mg/dL Normal 1.7-2.3 [facility] Comment on above: Order Comment: Speci men Type: BLOOD SPECIMENOrdering Facility: [facility] Address: [address] [place] [address] Performed By: #### 2 4362-6, ####[facility] LABCLIA [id number] [place] [address] Renal function 2000 panelon 02-07-2024 Albumin [Mass/Vol] 4.6 g/dL Normal 3.9-4.9 [facility] Comment on above: Order Comment: Speci men Type: BLOOD SPECIMENOrdering Facility: [facility] Address: [address] [place] [address] Performed By: #### 2 4362-6, ####[facility] LABCLIA [id number] [place] [address] Anion gap [Moles/Vol] 8 mmol/L Normal 8-15 [facility] Comment on above: Order Comment: Speci men Type: BLOOD SPECIMENOrdering Facility: [facility] Address: [address] [place] [address] Performed By: #### 2 4362-6, ####[facility] LABCLIA [id number] [place] [address] Calcium [Mass/Vol] 10.3 mg/dL High 8.5-10.2 [facility] Comment on above: Order Comment: Speci men Type: BLOOD SPECIMENOrdering Facility: [facility] Address: [address] [place] [address] Performed By: #### 2 4362-6, ####[facility] LABCLIA [id number] [place] [address] Chloride [Moles/Vol] 108 mmol/L High 98-107 [facility] Comment on above: Order Comment: Speci men Type: BLOOD SPECIMENOrdering Facility: [facility] Address: [address] [place] [address] Performed By: #### 2 4362-6, ####[facility] LABCLIA [id number] [place] [address] CO2 [Moles/Vol] 26 mmol/L Normal 22-30 [facility] Comment on above: Order Comment: Speci men Type: BLOOD SPECIMENOrdering Facility: [facility] Address: [address] [place] [address] Performed By: #### 2 4362-6, ####[facility] LABCLIA [id number] [place] [address] Creatinine [Mass/Vol] 0.92 mg/dL Normal 0.58-0.96 [facility] Comment on above: Order Comment: Speci men Type: BLOOD SPECIMENOrdering Facility: [facility] Address: [address] [place], [place] [address] Performed By: #### 2 4362-6, ####[facility] LABCLIA [id number] [place] [address] Creatinine and Glomerular filtration rate.predicted panel (S/P/Bld) 85 mL/min/1.73m??? Normal >=60 [facility] Comment on above: Order Comment: Peter myles Type: BLOOD SPECIMENOrdering Facility: [facility] Address: [address] [place] [address] Result Comment: Rachel mated Glomerular Filtration Rate [...] reflect actual GFR. Performed By: #### 2 4362-6, ####[facility] LABIA [id number] [place] [address] Glucose [Mass/Vol] 52 mg/dL Low 74-99 [facility] Comment on above: Order Comment: Peter myles Type: BLOOD SPECIMENOrdering Facility: [facility] Address: [address] [place] [address] Result Comment: The [place] [employer] (ADA) provides guidance for cutoff values for fasting glucose and random glucose. The ADA defines fasting as no caloric intake for at least 8 hours. Fasting plasma glucose results between 100 to 125 mg/dL indicate increased risk for diabetes (prediabetes).Fasting plasma glucose results greater than or equal to 126 mg/dL meet the criteria for diagnosis of diabetes. In the absence of unequivocal hyperglycemia, results should be confirmed by repeat testing. In a patient with classic symptoms of hyperglycemia or hyperglycemic crisis, random plasma glucose results greater than or equal to 200 mg/dL meet the criteria for diagnosis of diabetes.Reference: Standards of Medical Care in Diabetes 2016, [place] [employer]. Diabetes Care. 2016.39(Suppl 1). Performed By: #### 2 4362-6, ####[facility] LABIA [id number] [place] [address] Phosphate [Mass/Vol] 3.7 mg/dL Normal 2.7-4.8 [facility] Comment on above: Order Comment: Peter myles Type: BLOOD SPECIMENOrdering Facility: [facility] Address: [address] [place] [address] Performed By: #### 2 4362-6, ####[facility] LABCLIA [id number] [place] [address] Potassium [Moles/Vol] 4.4 mmol/L Normal 3.7-5.1 [facility] Comment on above: Order Comment: Speci men Type: BLOOD SPECIMENOrdering Facility: [facility] Address: [address] [place], [place] [address] Performed By: #### 2 4362-6, ####[facility] LABCLIA [id number] [place] [address] Sodium [Moles/Vol] 142 mmol/L Normal 136-144 [facility] Comment on above: Order Comment: Speci men Type: BLOOD SPECIMENOrdering Facility: [facility] Address: [address] [place], [place] [address] Performed By: #### 2 4362-6, ####[facility] LABCLIA [id number] [place] [address] Urea nitrogen [Mass/Vol] 29 mg/dL High 7-21 [facility] Comment on above: Order Comment: Speci men Type: BLOOD SPECIMENOrdering Facility: [facility] Address: [address] [place], [place] [address] Performed By: #### 2 4362-6, ####[facility] LABCLIA [id number] [place] [address] CNOVon 02-04-2024 CNOV Normal [facility] Magnesium SerPl-mCncon 02-02 Magnesium [Mass/Vol] 2.1 mg/dL Normal 1.7-2.3 [facility] Comment on above: Order Comment: Speci men Type: BLOOD SPECIMENOrdering Facility: [facility] Address: [address] [place], [place] [address] Performed By: #### 1 9123-9, 51175-4 ####[facility] LABCLIA [id number] [place] [address] Renal function 2000 panelon 02-03-2024 Albumin [Mass/Vol] 4.5 g/dL Normal 3.9-4.9 [facility] Comment on above: Order Comment: Speci men Type: BLOOD SPECIMENOrdering Facility: [facility] Address: [address] [place] [address] Performed By: #### 1 9123-9, 32110-2 ####[facility] LABCLIA [id number] [place] [address] Anion gap [Moles/Vol] 9 mmol/L Normal 8-15 [facility] Comment on above: Order Comment: Speci men Type: BLOOD SPECIMENOrdering Facility: [facility] Address: [address] [place] [address] Performed By: #### 1 9123-9, 35529-4 ####[facility] LABCLIA [id number] [place] [address] Calcium [Mass/Vol] 9.9 mg/dL Normal 8.5-10.2 [facility] Comment on above: Order Comment: Speci men Type: BLOOD SPECIMENOrdering Facility: [facility] Address: [address] [place] [address] Performed By: #### 1 9123-9, 65773-2 ####[facility] LABCLIA [id number] [place] [address] Chloride [Moles/Vol] 109 mmol/L High 98-107 [facility] Comment on above: Order Comment: Speci men Type: BLOOD SPECIMENOrdering Facility: [facility] Address: [address] [place] [address] Performed By: #### 1 9123-9, 13249-3 ####[facility] LABCLIA [id number] [place] [address] CO2 [Moles/Vol] 27 mmol/L Normal 22-30 [facility] Comment on above: Order Comment: Speci men Type: BLOOD SPECIMENOrdering Facility: [facility] Address: [address] [place] [address] Performed By: #### 1 9123-9, 74898-0 ####[facility] LABCLIA [id number] [place] [address] Creatinine [Mass/Vol] 0.84 mg/dL Normal 0.58-0.96 [facility] Comment on above: Order Comment: Speci men Type: BLOOD SPECIMENOrdering Facility: [facility] Address: [address] [place] [address] Performed By: #### 1 9123-9, 95562-5 ####[facility] LABCLIA [id number] [place] [address] Creatinine and Glomerular filtration rate.predicted panel (S/P/Bld) 95 mL/min/1.73m??? Normal >=60 [facility] Comment on above: Order Comment: Speci men Type: BLOOD SPECIMENOrdering Facility: [facility] Address: [address] [place] [address] Result Comment: Rachel mated Glomerular Filtration Rate [...] accurately reflect actual GFR. Performed By: #### 1 9123-9, 23833-2 ####[facility] LABCLIA [id number] [place] [address] Glucose [Mass/Vol] 66 mg/dL Low 74-99 [facility] Comment on above: Order Comment: Speci men Type: BLOOD SPECIMENOrdering Facility: [facility] Address: [address] [place], [place] [address] Result Comment: The [place] [employer] (ADA) provides guidance for cutoff values for fasting glucose and random glucose. The ADA defines fasting as no caloric intake for at least 8 hours. Fasting plasma glucose results between 100 to 125 mg/dL indicate increased risk for diabetes (prediabetes).Fasting plasma glucose results greater than or equal to 126 mg/dL meet the criteria for diagnosis of diabetes. In the absence of unequivocal hyperglycemia, results should be confirmed by repeat testing. In a patient with classic symptoms of hyperglycemia or hyperglycemic crisis, random plasma glucose results greater than or equal to 200 mg/dL meet the criteria for diagnosis of diabetes.Reference: Standards of Medical Care in Diabetes 2016, [place] [employer]. Diabetes Care. 2016.39(Suppl 1). Performed By: #### 1 9123-9, 00303-0 ####[facility] LABCLIA [id number] [place] [address] Phosphate [Mass/Vol] 3.5 mg/dL Normal 2.7-4.8 [facility] Comment on above: Order Comment: Speci men Type: BLOOD SPECIMENOrdering Facility: [facility] Address: [address] [place] [address] Performed By: #### 1 9123-9, 76805-6 ####[facility] [facility]IA [id number] [place] [address] Potassium [Moles/Vol] 4.0 mmol/L Normal 3.7-5.1 [facility] Comment on above: Order Comment: Speci men Type: BLOOD SPECIMENOrdering Facility: [facility] Address: [address] [place] [address] Performed By: #### 1 9123-9, 96950-0 ####[facility] LABCLIA [id number] [place] [address] Sodium [Moles/Vol] 145 mmol/L High 136-144 [facility] Comment on above: Order Comment: Speci men Type: BLOOD SPECIMENOrdering Facility: [facility] Address: [address] [place] [address] Performed By: #### 1 9123-9, 92206-8 ####[facility] LABCLIA [id number] [place] [id number] Urea nitrogen [Mass/Vol] 23 mg/dL High 7-21 [facility] Comment on above: Order Comment: Speci men Type: BLOOD SPECIMENOrdering Facility: [facility] Address: [address] [place] [address] Performed By: #### 1 9123-9, 89093-5 ####[facility] LABCLIA [id number] [place] [id number] ACTH Plas-mCncon 01-29-2024 Corticotropin (P) [Mass/Vol] 1.1 pg/mL Low 7.2-63.3 [facility] Comment on above: Order Comment: Speci men Type: BLOOD SPECIMENOrdering Facility: [facility] Address: [address] [place] [address] Result Comment: ACTH Reference Range: 7-10 am: 7.2 - 63.3 pg/mL Performed By: #### 2 141-0 ####[facility] LABCLIA [id number] [place] [address] [place] [facility] Aldost SerPl-mCncon 01-29-20 24 Aldosterone [Mass/Vol] 4.7 ng/dL Normal 0.0-<35.4 [facility] Comment on above: Order Comment: Speci men Type: BLOOD SPECIMENOrdering Facility: [facility] Address: [address] [place] [address] Result Comment: The reference interval for serum/plasma aldosterone is based on a normal sodium intake and upright position. High sodium intake may suppress aldosterone and low sodium intake may increase aldosterone.The supine reference interval is <23.7 ng/dL.A ratio of aldosterone in ng/dL to direct renin in pg/mL greater than or equal to 3.8 is a positive screening test result for primary aldosteronism, when aldosterone is greater than or equal to 15 ng/dL. Performed By: #### R JULIANO, 1763-2 ####[facility] LABCLIA [id number] [place] [address] [place] Basic metabolic 2000 panelon 01-29-2024 Anion gap [Moles/Vol] 13 mmol/L Normal 8-15 [facility] Comment on above: Order Comment: Speci men Type: BLOOD SPECIMENOrdering Facility: [facility] Address: [address] [place] [address] Performed By: #### 2 4321-2, 2143-01 ####[facility] LABCLIA [id number] [place] [address] [place] Calcium [Mass/Vol] 9.1 mg/dL Normal 8.5-10.2 [facility] Comment on above: Order Comment: Speci men Type: BLOOD SPECIMENOrdering Facility: [facility] Address: [address] [place] [address] Performed By: #### 2 432-2, 2143-01 ####[facility] LABCLIA [id number] [place] [address] [place] Chloride [Moles/Vol] 105 mmol/L Normal 98-107 [facility] Comment on above: Order Comment: Speci men Type: BLOOD SPECIMENOrdering Facility: [facility] Address: [address] [place] [address] Performed By: #### 2 432-2, 2143-01 ####[facility] LABCLIA [id number] [place] [address] [place] CO2 [Moles/Vol] 20 mmol/L Low 22-30 [facility] Comment on above: Order Comment: Speci men Type: BLOOD SPECIMENOrdering Facility: [facility] Address: [address] [place], [place] [address] Performed By: #### 2 432-2, 2143-01 ####[facility] LABCLIA [id number] [place] [id number] [place] Creatinine [Mass/Vol] 0.78 mg/dL Normal 0.58-0.96 [facility] Comment on above: Order Comment: Peter myles Type: BLOOD SPECIMENOrdering Facility: [facility] Address: [address] [place] [address] Performed By: #### 2 4321-2, 2143-01 ####[facility] LABCLIA [id number] [place] [address] [place] Creatinine and Glomerular filtration rate.predicted panel (S/P/Bld) 104 mL/min/1.73m??? Normal >=60 [facility] Comment on above: Order Comment: Peter myles Type: BLOOD SPECIMENOrdering Facility: [facility] Address: [address] [place] [address] Result Comment: Rachel mated Glomerular Filtration Rate [...] reflect actual GFR. Performed By: #### 2 4321-2, 2143-01 ####[facility] LABCLIA [id number] [place] [address] [place] Glucose [Mass/Vol] 111 mg/dL High 74-99 [facility] Comment on above: Order Comment: Peter myles Type: BLOOD SPECIMENOrdering Facility: [facility] Address: [address] [place] [address] Result Comment: The [place] [employer] (ADA) provides guidance for cutoff values for fasting glucose and random glucose. The ADA defines fasting as no caloric intake for at least 8 hours. Fasting plasma glucose results between 100 to 125 mg/dL indicate increased risk for diabetes (prediabetes).Fasting plasma glucose results greater than or equal to 126 mg/dL meet the criteria for diagnosis of diabetes. In the absence of unequivocal hyperglycemia, results should be confirmed by repeat testing. In a patient with classic symptoms of hyperglycemia or hyperglycemic crisis, random plasma glucose results greater than or equal to 200 mg/dL meet the criteria for diagnosis of diabetes.Reference: Standards of Medical Care in Diabetes 2016, [place] [employer]. Diabetes Care. 2016.39(Suppl 1). Performed By: #### 2 432-2, 2143-01 ####[facility] LABCLIA [id number] [address] [address] [place] Potassium [Moles/Vol] 4.8 mmol/L Normal 3.7-5.1 [facility] Comment on above: Order Comment: Speci men Type: BLOOD SPECIMENOrdering Facility: [facility] Address: [address] [place] [address] Performed By: #### 2 4320-09, 2143-01 ####[facility] LABIA [id number] [place] [address] [place] Sodium [Moles/Vol] 138 mmol/L Normal 136-144 [facility] Comment on above: Order Comment: Speci men Type: BLOOD SPECIMENOrdering Facility: [facility] Address: [address] [place] [address] Performed By: #### 2 4320-09, 2143-01 ####[facility] LABIA [id number] [place] [address] [place] Urea nitrogen [Mass/Vol] 24 mg/dL High 7-21 [facility] Comment on above: Order Comment: Speci men Type: BLOOD SPECIMENOrdering Facility: [facility] Address: [address] [place] [address] Performed By: #### 2 4320-09, 2143-01 ####[facility] LABIA [id number] [address] [address] [place] CBC panel Auto (Bld)on 01-28 Erythrocyte distribution width (RBC) [Ratio] 14.2 % Normal 11.5-15.0 [facility] Comment on above: Order Comment: Speci men Type: BLOOD SPECIMENOrdering Facility: [facility] Address: [address] [place] [address] Performed By: #### 5 8410-2 ####[facility] LABIA [id number] [place] [address] [place] Hematocrit (Bld) [Volume fraction] 41.0 % Normal 36.0-46.0 [facility] Comment on above: Order Comment: Speci men Type: BLOOD SPECIMENOrdering Facility: [facility] Address: [address] [place] [address] Performed By: #### 5 8410-2 ####[facility] LABIA [id number] [place] [address] [place] Hemoglobin (Bld) [Mass/Vol] 13.8 g/dL Normal 11.5-15.5 [facility] Comment on above: Order Comment: Speci men Type: BLOOD SPECIMENOrdering Facility: [facility] Address: [address] [place] [address] Performed By: #### 5 8410-2 ####[facility] LABIA [id number] [place] [address] [place] MCH (RBC) [Entitic mass] 29.6 pg Normal 26.0-34.0 [facility] Comment on above: Order Comment: Speci men Type: BLOOD SPECIMENOrdering Facility: [facility] Address: [address] [place] [address] Performed By: #### 5 8410-2 ####[facility] LABIA [id number] [place] [address] [place] MCHC (RBC) [Mass/Vol] 33.7 g/dL Normal 30.5-36.0 [facility] Comment on above: Order Comment: Speci men Type: BLOOD SPECIMENOrdering Facility: [facility] Address: [address] [place] [address] Performed By: #### 5 8410-2 ####[facility] LABIA [id number] [id number] [address] [place] MCV (RBC) [Entitic vol] 87.8 fL Normal 80.0-100.0 [facility] Comment on above: Order Comment: Speci men Type: BLOOD SPECIMENOrdering Facility: [facility] Address: [address] [place] [address] Performed By: #### 5 8410-2 ####[facility] LABCLIA [id number] [place] [address] [place] Nucleated RBC (Bld) [#/Vol] 10*3/uL Normal <0.01 [facility] Comment on above: Order Comment: Speci men Type: BLOOD SPECIMENOrdering Facility: [facility] Address: [address] [place] [address] Performed By: #### 5 8410-2 ####[facility] LABCLIA [id number] [place] [address] [place] Platelet mean volume (Bld) [Entitic vol] 12.5 fL Normal 9.0-12.7 [facility] Comment on above: Order Comment: Speci men Type: BLOOD SPECIMENOrdering Facility: [facility] Address: [address] [place] [address] Performed By: #### 5 8410-2 ####[facility] LABIA [id number] [place] [address] [place] Platelets (Bld) [#/Vol] 183 10*3/uL Normal 150-400 [facility] Comment on above: Order Comment: Speci men Type: BLOOD SPECIMENOrdering Facility: [facility] Address: [address] [place] [address] Performed By: #### 5 8410-2 ####[facility] LABCLIA [id number] [place] [address] [place] RBC (Bld) [#/Vol] 4.67 10*6/uL Normal 3.90-5.20 [facility] Comment on above: Order Comment: Speci men Type: BLOOD SPECIMENOrdering Facility: [facility] Address: [address] [place] [address] Performed By: #### 5 8410-2 ####[facility] LABCLIA [id number] [place] [address] [place] WBC (Bld) [#/Vol] 10.35 10*3/uL Normal 3.70-11.00 [facility] Comment on above: Order Comment: Speci men Type: BLOOD SPECIMENOrdering Facility: [facility] Address: [address] [place] [address] Performed By: #### 5 8410-2 ####[facility] LABCLIA [id number] [place] [address] [place] CNCOon 01-29-2024 CNCO Letter Text Normal [facility] CNDSon 01-29-2024 CNDS Normal [facility] CORTISOL, 30 MINon 4 Cortisol 30 Min post Unsp challenge [Mass/Vol] 7.8 ug/dL Normal [facility] Comment on above: Order Comment: Speci men Type: BLOOD SPECIMENOrdering Facility: [facility] Address: [address] [place] [address] Performed By: #### C OR30 ####[facility] LABCLIA [id number] [place] [address] [place] CORTISOL, 60 MINon 4 Cortisol 1 Hr post Unsp challenge [Mass/Vol] 10.6 ug/dL Normal [facility] Comment on above: Order Comment: Speci men Type: BLOOD SPECIMENOrdering Facility: [facility] Address: [address] [place] [address] Performed By: #### C ORS60M ####[facility] LABCLIA [id number] [place] [address] [place] INTERPRETATION (ACTHST) Normal [facility] Comment on above: Order Comment: Speci men Type: BLOOD SPECIMENOrdering Facility: [facility] Address: [address] [place] [address] Result Comment: Afte r cortrosyn stimulation, a peak cortisol response greater than 12.6 ug/dL may indicate appropriate cortisol secretion. This result should be interpreted within the clinical context and other test results.Yannick et al. Clinical Implications for Biochemical Diagnostic Thresholds of Adrenal Sufficiency Using a Highly Specific Cortisol Immunoassay. 2017 Clin. Biochem. 50:475-480. Performed By: #### C ORS60M ####[facility] LABCLIA [id number] [place] [address] [place] Cortis SerPl-mCncon 01-29-20 Cortisol [Mass/Vol] 0.5 ug/dL Low 4.8-19.5 [facility] Comment on above: Order Comment: Peter [facility] Type: BLOOD SPECIMENOrdering Facility: [facility] Address: [address] [place] [address] Result Comment: Prov ided reference range is from 6-10 AM sample collection time.Cortisol Reference Range: 6-10 AM = 4.8-19.5 ug/dL, 4-8 PM = 2.5-11.9 ug/dL Performed By: #### 2 4321-2, 2143-6 ####[facility] LABCLIA [id number] [address] [place] DIRECT RENIN PLASMAon 2023 DIRECT RENIN <2.1 Low 4.2-52.2 [facility] Comment on above: Order Comment: [facility] Type: BLOOD SPECIMENOrdering Facility: [facility] Address: [address] [place] [address] Result Comment: A ra yue of aldosterone in ng/dL to direct renin in pg/mL greater than or equal to 3.8 is a positive screening test result for primary aldosteronism, when aldosterone is greater than or equal to 15 ng/dL.The reference interval for direct renin is based on an upright position.The supine reference intervals are:Age <41 years: 3.2-33.2 pg/mLAge >=41 years: 2.5-45.1 pg/mL Performed By: #### R JULIANO, 3-2 ####[facility] LABCLIA [id number] [place] [address] [place] PATIENT UPRIGHT OR SUPINE Upright Normal [facility] Comment on above: Order Comment: Speci men Type: BLOOD SPECIMENOrdering Facility: [facility] Address: [address] [place] [address] Performed By: #### Kathi HENAO, 3-2 ####[facility] LABCLIA [id number] [place] [address] [place] ANES POSTPROC EVALon 024 ANES POSTPROC EVAL Normal [facility] ANES PRE-OPon 01-28-2024 ANES PRE-OP Normal [facility] ARTERIAL BLOOD GASES WITH IO NIZED MAGNESIUMon 01-28-2024 Base deficit (BldA) [Moles/Vol] -3 mmol/L Low -2-0 [facility] Comment on above: Order Comment: Speci men Type: ARTERIAL BLOOD SPECIMENOrdering Facility: [facility] Address: [address] [place] [address] Performed By: #### A LLMG ####[facility] LABIA [id number] [place] [address] [place] Calcium.ionized (Bld) [Mass/Vol] 1.28 mmol/L Normal 1.08-1.30 [facility] Comment on above: Order Comment: Speci men Type: ARTERIAL BLOOD SPECIMENOrdering Facility: [facility] Address: [address] [place] [address] Performed By: #### A LLMG ####[facility] LABIA [id number] [place] [address] [place] Calcium.ionized adjusted to pH 7.4 (BldA) [Moles/Vol] 1.23 mmol/L Normal 1.08-1.30 [facility] Comment on above: Order Comment: Speci men Type: ARTERIAL BLOOD SPECIMENOrdering Facility: [facility] Address: [address] [place] [address] Performed By: #### A LLMG ####[facility] LABCLIA [id number] [place] [id number] [place] Carboxyhemoglobin (BldA) [Mass fraction] 0.8 % Normal 0.0-2.0 [facility] Comment on above: Order Comment: Speci men Type: ARTERIAL BLOOD SPECIMENOrdering Facility: [facility] Address: [address] [place] [address] Result Comment: Carb oxyhemoglobin Reference Range for Smokers: 2.0-8.0% Performed By: #### A LLMG ####[facility] LABCLIA [id number] [place] [address] [place] CO2 (Bld) [Partial pressure] 45 mm Hg Normal 36-46 [facility] Comment on above: Order Comment: Speci men Type: ARTERIAL BLOOD SPECIMENOrdering Facility: [facility] Address: [address] [place] [address] Performed By: #### A LLMG ####[facility] LABCLIA [id number] [place] [address] [place] CO2 adjusted to patient's actual temperature (Bld) [Partial pressure] 45 mmHg Normal 36-46 [facility] Comment on above: Order Comment: Speci men Type: ARTERIAL BLOOD SPECIMENOrdering Facility: [facility] Address: [address] [place] [address] Performed By: #### A LLMG ####[facility] LABCLIA [id number] [place] [address] [place] Glucose [Mass/Vol] 94 mg/dL Normal 60-105 [facility] Comment on above: Order Comment: Speci men Type: ARTERIAL BLOOD SPECIMENOrdering Facility: [facility] Address: [address] [place] [address] Performed By: #### A LLMG ####[facility] LABCLIA [id number] [place] [address] [place] HCO3 (Bld) [Moles/Vol] 23 mmol/L Normal 22-26 [facility] Comment on above: Order Comment: Speci men Type: ARTERIAL BLOOD SPECIMENOrdering Facility: [facility] Address: [address] [place] [address] Performed By: #### A LLMG ####[facility] LABCLIA [id number] [place] [address] [place] Hematocrit (Bld) [Volume fraction] 42.6 % Normal 36.0-46.0 [facility] Comment on above: Order Comment: Speci men Type: ARTERIAL BLOOD SPECIMENOrdering Facility: [facility] Address: [address] [place] [address] Performed By: #### A LLMG ####[facility] LABIA [id number] [place] [address] [place] Hemoglobin (Bld) [Mass/Vol] 13.9 g/dL Normal 11.5-15.5 [facility] Comment on above: Order Comment: Speci men Type: ARTERIAL BLOOD SPECIMENOrdering Facility: [facility] Address: [address] [place] [address] Performed By: #### A LLMG ####[facility] LABCLIA [id number] [place] [address] [place] Lactate [Moles/Vol] 1.2 mmol/L Normal 0.5-2.2 [facility] Comment on above: Order Comment: Speci men Type: ARTERIAL BLOOD SPECIMENOrdering Facility: [facility] Address: [address] [place] [address] Performed By: #### A LLMG ####[facility] LABIA [id number] [place] [address] [place] Magnesium [Moles/Vol] 0.52 mmol/L Normal 0.45-0.60 [facility] Comment on above: Order Comment: Speci men Type: ARTERIAL BLOOD SPECIMENOrdering Facility: [facility] Address: [address] [place] [id number] Performed By: #### A LLMG ####[facility] LABCLIA [id number] [place] [address] [place] Methemoglobin (Bld) [Mass fraction] 0.8 % Normal 0.0-1.5 [facility] Comment on above: Order Comment: Speci men Type: ARTERIAL BLOOD SPECIMENOrdering Facility: [facility] Address: [address] [place] [address] Performed By: #### A LLMG ####[facility] LABCLIA [id number] [place] [address] [place] Oxygen (Bld) [Partial pressure] 181 mm Hg High 85-95 [facility] Comment on above: Order Comment: Speci men Type: ARTERIAL BLOOD SPECIMENOrdering Facility: [facility] Address: [address] [place] [id number] Performed By: #### A LLMG ####[facility] LABCLIA [id number] [place] [address] [place] Oxygen adjusted to patient's actual temperature (Bld) [Partial pressure] 181 mmHg High 85-95 [facility] Comment on above: Order Comment: Speci men Type: ARTERIAL BLOOD SPECIMENOrdering Facility: [facility] Address: [address] [place] [id number] Performed By: #### A LLMG ####[facility] LABCLIA [id number] [place] [id number] [place] Oxyhemoglobin (BldA) [Mass fraction] 98 % Normal 95-98 [facility] Comment on above: Order Comment: Speci men Type: ARTERIAL BLOOD SPECIMENOrdering Facility: [facility] Address: [address] [place] [id number] Performed By: #### A LLMG ####[facility] LABCLIA [id number] [place] [address] [place] pH (Bld) 7.33 [pH] Low 7.35-7.45 [facility] Comment on above: Order Comment: Speci men Type: ARTERIAL BLOOD SPECIMENOrdering Facility: [facility] Address: [address] [place] [address] Performed By: #### A LLMG ####[facility] LABIA [id number] [place] [address] [place] pH adjusted to patient's actual temperature (Bld) 7.33 Low 7.35-7.45 [facility] Comment on above: Order Comment: Speci men Type: ARTERIAL BLOOD SPECIMENOrdering Facility: [facility] Address: [address] [place] [address] Performed By: #### A LLMG ####[facility] LABIA [id number] [place] [address] [place] Potassium [Moles/Vol] 4.3 mmol/L Normal 3.5-5.0 [facility] Comment on above: Order Comment: Speci men Type: ARTERIAL BLOOD SPECIMENOrdering Facility: [facility] Address: [address] [place] [address] Performed By: #### A LLMG ####[facility] LABIA [id number] [place] [address] [place] Sodium [Moles/Vol] 139 mmol/L Normal 136-144 [facility] Comment on above: Order Comment: Speci men Type: ARTERIAL BLOOD SPECIMENOrdering Facility: [facility] Address: [address] [place] [address] Performed By: #### A LLMG ####[facility] LABIA [id number] [place] [address] [place] BRIEF OP NOTon 01-28-2024 BRIEF OP NOT Normal [facility] Basic metabolic 2000 panelon 01-28-2024 Anion gap [Moles/Vol] 11 mmol/L Normal 8-15 [facility] Comment on above: Order Comment: Speci men Type: BLOOD SPECIMENOrdering Facility: [facility] Address: [address] [place] [address] Performed By: #### 2 4321-2 ####[facility] LABCLIA [id number] [place] [address] [place] Calcium [Mass/Vol] 9.1 mg/dL Normal 8.5-10.2 [facility] Comment on above: Order Comment: Speci men Type: BLOOD SPECIMENOrdering Facility: [facility] Address: [address] [place] [address] Performed By: #### 2 4321-2 ####[facility] LABCLIA [id number] [place] [address] [place] Chloride [Moles/Vol] 107 mmol/L Normal 98-107 [facility] Comment on above: Order Comment: Speci men Type: BLOOD SPECIMENOrdering Facility: [facility] Address: [address] [place] [address] Performed By: #### 2 4321-2 ####[facility] LABCLIA [id number] [place] [address] [place] CO2 [Moles/Vol] 21 mmol/L Low 22-30 [facility] Comment on above: Order Comment: Speci men Type: BLOOD SPECIMENOrdering Facility: [facility] Address: [address] [place] [address] Performed By: #### 2 4321-2 ####[facility] LABCLIA [id number] [place] [id number] [place] Creatinine [Mass/Vol] 0.70 mg/dL Normal 0.58-0.96 [facility] Comment on above: Order Comment: Speci men Type: BLOOD SPECIMENOrdering Facility: [facility] Address: [address] [place] [address] Performed By: #### 2 4321-2 ####[facility] LABIA [id number] [place] [address] [place] Creatinine and Glomerular filtration rate.predicted panel (S/P/Bld) 118 mL/min/1.73m??? Normal >=60 [facility] Comment on above: Order Comment: Speci men Type: BLOOD SPECIMENOrdering Facility: [facility] Address: [address] [place] [address] Result Comment: Rachel mated Glomerular Filtration Rate [...] actual GFR. Performed By: #### 2 4321-2 ####[facility] LABIA [id number] [place] [address] [place] Glucose [Mass/Vol] 114 mg/dL High 74-99 [facility] Comment on above: Order Comment: Peter shar Type: BLOOD SPECIMENOrdering Facility: [facility] Address: [address] [place] [address] Result Comment: The [place] Diabetes Association (ADA) provides guidance for cutoff values for fasting glucose and random glucose. The ADA defines fasting as no caloric intake for at least 8 hours. Fasting plasma glucose results between 100 to 125 mg/dL indicate increased risk for diabetes (prediabetes).Fasting plasma glucose results greater than or equal to 126 mg/dL meet the criteria for diagnosis of diabetes. In the absence of unequivocal hyperglycemia, results should be confirmed by repeat testing. In a patient with classic symptoms of hyperglycemia or hyperglycemic crisis, random plasma glucose results greater than or equal to 200 mg/dL meet the criteria for diagnosis of diabetes.Reference: Standards of Medical Care in Diabetes 2016, [place] [employer]. Diabetes Care. 2016.39(Suppl 1). Performed By: #### 2 4321-2 ####[facility] LABCLIA [id number] [place] [address] [place] Potassium [Moles/Vol] 4.7 mmol/L Normal 3.7-5.1 [facility] Comment on above: Order Comment: Speci men Type: BLOOD SPECIMENOrdering Facility: [facility] Address: [address] [place] [address] Performed By: #### 2 4321-2 ####[facility] LABCLIA [id number] [place] [address] [place] Sodium [Moles/Vol] 139 mmol/L Normal 136-144 [facility] Comment on above: Order Comment: Speci men Type: BLOOD SPECIMENOrdering Facility: [facility] Address: [address] [place] [address] Performed By: #### 2 4321-2 ####[facility] LABCLIA [id number] [place] [address] [place] Urea nitrogen [Mass/Vol] 21 mg/dL Normal 7-21 [facility] Comment on above: Order Comment: Speci men Type: BLOOD SPECIMENOrdering Facility: [facility] Address: [address] [place] [address] Performed By: #### 2 4321-2 ####[facility] LABCLIA [id number] [place] [address] [place] Anion gap [Moles/Vol] 13 mmol/L Normal 8-15 [facility] Comment on above: Order Comment: Speci men Type: BLOOD SPECIMENOrdering Facility: [facility] Address: [address] [place] [address] Performed By: #### 2 4321-2 ####[facility] LABCLIA [id number] [place] [id number] [place] Calcium [Mass/Vol] 9.7 mg/dL Normal 8.5-10.2 [facility] Comment on above: Order Comment: Speci men Type: BLOOD SPECIMENOrdering Facility: [facility] Address: [address] [place] [address] Performed By: #### 2 4321-2 ####[facility] LABCLIA [id number] [place] [address] [place] Chloride [Moles/Vol] 107 mmol/L Normal 98-107 [facility] Comment on above: Order Comment: Speci men Type: BLOOD SPECIMENOrdering Facility: [facility] Address: [address] [place] [address] Performed By: #### 2 4321-2 ####[facility] LABCLIA [id number] [place] [address] [place] CO2 [Moles/Vol] 22 mmol/L Normal 22-30 [facility] Comment on above: Order Comment: Speci men Type: BLOOD SPECIMENOrdering Facility: [facility] Address: [address] [place] [address] Performed By: #### 2 4321-2 ####[facility] LABCLIA [id number] [place] [address] [place] Creatinine [Mass/Vol] 0.80 mg/dL Normal 0.58-0.96 [facility] Comment on above: Order Comment: Speci men Type: BLOOD SPECIMENOrdering Facility: [facility] Address: [address] [place] [address] Performed By: #### 2 4321-2 ####[facility] LABCLIA [id number] [place] [address] [place] Creatinine and Glomerular filtration rate.predicted panel (S/P/Bld) 101 mL/min/1.73m??? Normal >=60 [facility] Comment on above: Order Comment: Speci men Type: BLOOD SPECIMENOrdering Facility: [facility] Address: [address] [place] [address] Result Comment: Rachel mated Glomerular Filtration Rate [...] actual GFR. Performed By: #### 2 4321-2 ####[facility] LABCLIA [id number] [place] [address] [place] Glucose [Mass/Vol] 80 mg/dL Normal 74-99 [facility] Comment on above: Order Comment: Peter myles Type: BLOOD SPECIMENOrdering Facility: [facility] Address: [address] [place] [address] Result Comment: The [place] Diabetes Association (ADA) provides guidance for cutoff values for fasting glucose and random glucose. The ADA defines fasting as no caloric intake for at least 8 hours. Fasting plasma glucose results between 100 to 125 mg/dL indicate increased risk for diabetes (prediabetes).Fasting plasma glucose results greater than or equal to 126 mg/dL meet the criteria for diagnosis of diabetes. In the absence of unequivocal hyperglycemia, results should be confirmed by repeat testing. In a patient with classic symptoms of hyperglycemia or hyperglycemic crisis, random plasma glucose results greater than or equal to 200 mg/dL meet the criteria for diagnosis of diabetes.Reference: Standards of Medical Care in Diabetes 2016, [place] [employer]. Diabetes Care. 2016.39(Suppl 1). Performed By: #### 2 4321-2 ####[facility] LABCLIA [id number] [place] [address] [place] Potassium [Moles/Vol] 4.2 mmol/L Normal 3.7-5.1 [facility] Comment on above: Order Comment: Peter myles Type: BLOOD SPECIMENOrdering Facility: [facility] Address: [address] [place] [address] Performed By: #### 2 4321-2 ####[facility] LABCLIA [id number] [place] [address] [place] Sodium [Moles/Vol] 142 mmol/L Normal 136-144 [facility] Comment on above: Order Comment: Speci men Type: BLOOD SPECIMENOrdering Facility: [facility] Address: [address] [place] [address] Performed By: #### 2 4321-2 ####[facility] LABCLIA [id number] [place] [address] [place] Urea nitrogen [Mass/Vol] 29 mg/dL High 7-21 [facility] Comment on above: Order Comment: Speci men Type: BLOOD SPECIMENOrdering Facility: [facility] Address: [address] [place] [address] Performed By: #### 2 4321-2 ####[facility] LABCLIA [id number] [place] [address] [place] CASE MGT INIT ASSESon 2023 CASE MGT INIT ASSES Normal [facility] CBC W Auto Differential pane l (Bld)on 01-28-2024 Basophils (Bld) [#/Vol] 10*3/uL Normal <0.11 [facility] Comment on above: Order Comment: Speci men Type: BLOOD SPECIMENOrdering Facility: [facility] Address: [address] [place] [address] Performed By: #### 5 7021-8 ####[facility] LABCLIA [id number] [place] [address] [place] Basophils/100 WBC (Bld) 0.2 % Normal [facility] Comment on above: Order Comment: Speci men Type: BLOOD SPECIMENOrdering Facility: [facility] Address: [address] [place] [address] Performed By: #### 5 7021-8 ####[facility] LABCLIA [id number] [place] [address] [place] Differential cell count method Nom (Bld) Auto Normal [facility] Comment on above: Order Comment: Speci men Type: BLOOD SPECIMENOrdering Facility: [facility] Address: [address] [place] [address] Performed By: #### 5 7021-8 ####[facility] LABIA [id number] [place] [address] [place] Eosinophils (Bld) [#/Vol] 0.04 10*3/uL Normal <0.46 [facility] Comment on above: Order Comment: Speci men Type: BLOOD SPECIMENOrdering Facility: [facility] Address: [address] [place] [address] Performed By: #### 5 7021-8 ####[facility] LABIA [id number] [place] [address] [place] Eosinophils/100 WBC (Bld) 0.4 % Normal [facility] Comment on above: Order Comment: Speci men Type: BLOOD SPECIMENOrdering Facility: [facility] Address: [address] [place] [address] Performed By: #### 5 7021-8 ####[facility] LABIA [id number] [place] [address] [place] Erythrocyte distribution width (RBC) [Ratio] 14.2 % Normal 11.5-15.0 [facility] Comment on above: Order Comment: Speci men Type: BLOOD SPECIMENOrdering Facility: [facility] Address: [address] [place] [address] Performed By: #### 5 7021-8 ####[facility] LABIA [id number] [place] [address] [place] Hematocrit (Bld) [Volume fraction] 42.4 % Normal 36.0-46.0 [facility] Comment on above: Order Comment: Speci men Type: BLOOD SPECIMENOrdering Facility: [facility] Address: [address] [place] [address] Performed By: #### 5 7021-8 ####[facility] LABCLIA [id number] [place] [address] [place] Hemoglobin (Bld) [Mass/Vol] 14.4 g/dL Normal 11.5-15.5 [facility] Comment on above: Order Comment: Speci men Type: BLOOD SPECIMENOrdering Facility: [facility] Address: [address] [place] [address] Performed By: #### 5 7021-8 ####[facility] LABIA [id number] [place] [address] [place] Immature granulocytes (Bld) [#/Vol] 0.04 10*3/uL Normal <0.10 [facility] Comment on above: Order Comment: Speci men Type: BLOOD SPECIMENOrdering Facility: [facility] Address: [address] [place] [address] Performed By: #### 5 7021-8 ####[facility] LABIA [id number] [place] [address] [place] Immature granulocytes/100 WBC (Bld) 0.4 % Normal [facility] Comment on above: Order Comment: Speci men Type: BLOOD SPECIMENOrdering Facility: [facility] Address: [address] [place] [address] Performed By: #### 5 7021-8 ####[facility] LABIA [id number] [place] [address] [place] Lymphocytes (Bld) [#/Vol] 1.12 10*3/uL Normal 1.00-4.00 [facility] Comment on above: Order Comment: Speci men Type: BLOOD SPECIMENOrdering Facility: [facility] Address: [address] [place] [address] Performed By: #### 5 7021-8 ####[facility] LABIA [id number] [place] [address] [place] Lymphocytes/100 WBC (Bld) 10.1 % Normal [facility] Comment on above: Order Comment: Speci men Type: BLOOD SPECIMENOrdering Facility: [facility] Address: [address] [place] [address] Performed By: #### 5 7021-8 ####[facility] [id number] [place] [address] [place] MCH (RBC) [Entitic mass] 30.1 pg Normal 26.0-34.0 [facility] Comment on above: Order Comment: Speci men Type: BLOOD SPECIMENOrdering Facility: [facility] Address: [address] [place] [address] Performed By: #### 5 7021-8 ####[facility] [id number] [place] [address] [place] MCHC (RBC) [Mass/Vol] 34.0 g/dL Normal 30.5-36.0 [facility] Comment on above: Order Comment: Speci men Type: BLOOD SPECIMENOrdering Facility: [facility] Address: [address] [place] [address] Performed By: #### 5 7021-8 ####[facility] [id number] [place] [address] [place] MCV (RBC) [Entitic vol] 88.5 fL Normal 80.0-100.0 C [facility] Comment on above: Order Comment: Speci men Type: BLOOD SPECIMENOrdering Facility: [facility] Address: [address] [place] [address] Performed By: #### 5 7021-8 ####[facility] LABIA [id number] [place] [address] [place] Monocytes (Bld) [#/Vol] 0.22 10*3/uL Normal <0.87 [facility] Comment on above: Order Comment: Speci men Type: BLOOD SPECIMENOrdering Facility: [facility] Address: [address] [place] [address] Performed By: #### 5 7021-8 ####[facility] LABCLIA [id number] [place] [address] [place] Monocytes/100 WBC (Bld) 2.0 % Normal C [facility] Comment on above: Order Comment: Speci men Type: BLOOD SPECIMENOrdering Facility: [facility] Address: [address] [place] [address] Performed By: #### 5 7021-8 ####[facility] LABCLIA [id number] [place] [address] [place] Neutrophils (Bld) [#/Vol] 9.64 10*3/uL High 1.45-7.50 [facility] Comment on above: Order Comment: Speci men Type: BLOOD SPECIMENOrdering Facility: [facility] Address: [address] [place] [address] Performed By: #### 5 7021-8 ####[facility] LABCLIA [id number] [place] [address] [place] Neutrophils/100 WBC (Bld) 86.9 % Normal [facility] Comment on above: Order Comment: Speci men Type: BLOOD SPECIMENOrdering Facility: [facility] Address: [address] [place] [address] Performed By: #### 5 7021-8 ####[facility] LABCLIA [id number] [place] [address] [place] Nucleated RBC (Bld) [#/Vol] 10*3/uL Normal <0.01 [facility] Comment on above: Order Comment: Speci men Type: BLOOD SPECIMENOrdering Facility: [facility] Address: [address] [place] [address] Performed By: #### 5 7021-8 ####[facility] LABCLIA [id number] [place] [address] [place] Nucleated RBC/100 WBC (Bld) [Ratio] 0.0 /100 WBC Normal [facility] Comment on above: Order Comment: Speci men Type: BLOOD SPECIMENOrdering Facility: [facility] Address: [address] [place] [address] Performed By: #### 5 7021-8 ####[facility] LABCLIA [id number] [place] [address] [place] Platelet mean volume (Bld) [Entitic vol] 11.4 fL Normal 9.0-12.7 [facility] Comment on above: Order Comment: Speci men Type: BLOOD SPECIMENOrdering Facility: [facility] Address: [address] [place] [address] Performed By: #### 5 7021-8 ####[facility] LABCLIA [id number] [place] [address] [place] Platelets (Bld) [#/Vol] 158 10*3/uL Normal 150-400 [facility] Comment on above: Order Comment: Speci men Type: BLOOD SPECIMENOrdering Facility: [facility] Address: [address] [place] [address] Performed By: #### 5 7021-8 ####[facility] LABIA [id number] [place] [address] [place] RBC (Bld) [#/Vol] 4.79 10*6/uL Normal 3.90-5.20 [facility] Comment on above: Order Comment: Speci men Type: BLOOD SPECIMENOrdering Facility: [facility] Address: [address] [place] [address] Performed By: #### 5 7021-8 ####[facility] LABCLIA [id number] [place] [address] [place] WBC (Bld) [#/Vol] 11.08 10*3/uL High 3.70-11.00 [facility] Comment on above: Order Comment: Speci men Type: BLOOD SPECIMENOrdering Facility: [facility] Address: [address] [place] [address] Performed By: #### 5 7021-8 ####[facility] LABIA [id number] [place] [address] [place] OPERATIVE NOon 01-28-2024 OPERATIVE NO Normal [facility] SURGICAL PATHOLOGYon 024 CASE REPORT Normal [facility] Comment on above: Order Comment: Speci men Type: TISSUE SPECIMENOrdering Facility: [facility] Address: [address] [place] [address] Result Comment: Surg ical Pathology Report Case: [id number] Provider: Mario Sullivan MD Collected: 01/28/2024 05:14 PMOrdering Location: Admitting Received: 01/28/2024 05:57 PMPathologist: Carlos Myers MDSpecimen: Adrenal Gland, Left, Resection Performed By: #### S ####[facility] [id number] [address] OF [place] CLINICAL HISTORY Normal [facility] Comment on above: Order Comment: Speci men Type: TISSUE SPECIMENOrdering Facility: [facility] Address: [address] [place] [address] Result Comment: Pre- op diagnosis: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 A drenal gland, left, adrenalectomy:- Adrenal cortical adenoma (2.1 cm). Performed By: #### S ####[facility] LABCLIA [id number] [place] [address] [place] FINAL PERFORMING LAB Normal [facility] Comment on above: Order Comment: Speci men Type: TISSUE SPECIMENOrdering Facility: [facility] Address: [address] [place] [address] Result Comment: Diag nostic interpretation performed at [facility], [address] [place] [address] CLIA# [id number] Director: Benito Cheng M.D. Performed By: #### S ####[facility] LABIA [id number] [place] [address] [place] GROSS DESCRIPTION Normal [facility] Comment on above: Order Comment: Speci men Type: TISSUE SPECIMENOrdering Facility: [facility] Address: [address] [place] [address] Result Comment: A. A drenal Gland, Left, ResectionReceived in formalin labeled adrenal gland, left, resection is an adrenal gland with ovoid tissue mass measuring 3.6 x 1.7 cm and weighing 13.1 g. The mass measures 2.1 x 1.7 x 1.5 cm, is previously disrupted by is yellow-orange, encapsulated, and firm. On cross-section the tumor bulges and is somewhat lobulated. Foci of hemorrhage or necrosis are not present. The segment of adrenal tissue adjacent to the mass appears unremarkable.[employer] sections are submitted as follows:Q3-P3-cgyflw massA3- mass to adjacent uninvolved adrenalA4-uninvolved adrenalGross examination performed at [facility], [address] [place] [address] CLIA # [id number] 01/29/24 12:08 PM Performed By: #### S ####[facility] LABCLIA [id number] [place] [address] [place] Basic metabolic 2000 panelon 01-27-2024 Anion gap [Moles/Vol] 11 mmol/L Normal 8-15 [facility] Comment on above: Order Comment: Speci men Type: BLOOD SPECIMENOrdering Facility: [facility] Address: [address] [place] [address] Performed By: #### 2 4321-2, 2776-08, ####[facility] LABCLIA [id number] [address] [address] [place] Calcium [Mass/Vol] 9.3 mg/dL Normal 8.5-10.2 [facility] Comment on above: Order Comment: Speci men Type: BLOOD SPECIMENOrdering Facility: [facility] Address: [address] [place] [address] Performed By: #### 2 4321-2, 2776-08, ####[facility] LABCLIA [id number] [place] [id number] [place] Chloride [Moles/Vol] 110 mmol/L High 98-107 [facility] Comment on above: Order Comment: Speci men Type: BLOOD SPECIMENOrdering Facility: [facility] Address: [address] [place] [address] Performed By: #### 2 4321-2, 2776-08, ####[facility] LABCLIA [id number] [place] [id number] [place] CO2 [Moles/Vol] 20 mmol/L Low 22-30 [facility] Comment on above: Order Comment: Speci men Type: BLOOD SPECIMENOrdering Facility: [facility] Address: [address] [place] [address] Performed By: #### 2 4321-2, 2776-08, ####[facility] LABCLIA [id number] [address] [address] [place] Creatinine [Mass/Vol] 0.87 mg/dL Normal 0.58-0.96 [facility] Comment on above: Order Comment: Speci men Type: BLOOD SPECIMENOrdering Facility: [facility] Address: [address] [place] [id number] Performed By: #### 2 4321-2, 2777-1, ####[facility] LABCLIA [id number] [place] [id number] [place] Creatinine and Glomerular filtration rate.predicted panel (S/P/Bld) 91 mL/min/1.73m??? Normal >=60 [facility] Comment on above: Order Comment: Peter myles Type: BLOOD SPECIMENOrdering Facility: [facility] Address: [address] [place] [address] Result Comment: Rachel mated Glomerular Filtration Rate [...] reflect actual GFR. Performed By: #### 2 4321-2, 2777-1, ####[facility] LABCLIA [id number] [place] [id number] [place] Glucose [Mass/Vol] 87 mg/dL Normal 74-99 [facility] Comment on above: Order Comment: Peter myles Type: BLOOD SPECIMENOrdering Facility: [facility] Address: [address] [place] [address] Result Comment: The [place] [employer] (ADA) provides guidance for cutoff values for fasting glucose and random glucose. The ADA defines fasting as no caloric intake for at least 8 hours. Fasting plasma glucose results between 100 to 125 mg/dL indicate increased risk for diabetes (prediabetes).Fasting plasma glucose results greater than or equal to 126 mg/dL meet the criteria for diagnosis of diabetes. In the absence of unequivocal hyperglycemia, results should be confirmed by repeat testing. In a patient with classic symptoms of hyperglycemia or hyperglycemic crisis, random plasma glucose results greater than or equal to 200 mg/dL meet the criteria for diagnosis of diabetes.Reference: Standards of Medical Care in Diabetes 2016, [place] [employer]. Diabetes Care. 2016.39(Suppl 1). Performed By: #### 2 4321-2, 2777-, ####[facility] LABIA [id number] [place] [id number] [place] Potassium [Moles/Vol] 4.8 mmol/L Normal 3.7-5.1 [facility] Comment on above: Order Comment: Speci men Type: BLOOD SPECIMENOrdering Facility: [facility] Address: [address] [place] [address] Performed By: #### 2 4321-2, 27702-02, ####[facility] LABIA [id number] [place] [address] [place] Sodium [Moles/Vol] 141 mmol/L Normal 136-144 [facility] Comment on above: Order Comment: Speci men Type: BLOOD SPECIMENOrdering Facility: [facility] Address: [address] [place] [address] Performed By: #### 2 4321-2, 27702-02, ####[facility] [id number] [place] [address] [place] Urea nitrogen [Mass/Vol] 35 mg/dL High 7-21 [facility] Comment on above: Order Comment: Speci men Type: BLOOD SPECIMENOrdering Facility: [facility] Address: [address] [place] [address] Performed By: #### 2 4321-2, 27702-02, ####[facility] LABIA [id number] [place] [id number] [place] CBC W Auto Differential pane l (Bld)on 01-27-2024 Basophils (Bld) [#/Vol] 0.03 10*3/uL Normal <0.11 [facility] Comment on above: Order Comment: Speci men Type: BLOOD SPECIMENOrdering Facility: [facility] Address: [address] [place] [address] Performed By: #### 5 7021-8 ####[facility] LABCLIA [id number] [place] [address] [place] Basophils/100 WBC (Bld) 0.4 % Normal C [facility] Comment on above: Order Comment: Speci men Type: BLOOD SPECIMENOrdering Facility: [facility] Address: [address] [place] [address] Performed By: #### 5 7021-8 ####[facility] LABCLIA [id number] [place] [address] [place] Differential cell count method Nom (Bld) Auto Normal [facility] Comment on above: Order Comment: Speci men Type: BLOOD SPECIMENOrdering Facility: [facility] Address: [address] [place] [address] Performed By: #### 5 7021-8 ####[facility] LABCLIA [id number] [place] [address] [place] Eosinophils (Bld) [#/Vol] 0.09 10*3/uL Normal <0.46 [facility] Comment on above: Order Comment: Speci men Type: BLOOD SPECIMENOrdering Facility: [facility] Address: [address] [place] [address] Performed By: #### 5 7021-8 ####[facility] LABCLIA [id number] [place] [address] [place] Eosinophils/100 WBC (Bld) 1.1 % Normal [facility] Comment on above: Order Comment: Speci men Type: BLOOD SPECIMENOrdering Facility: [facility] Address: [address] [place] [address] Performed By: #### 5 7021-8 ####[facility] LABCLIA [id number] [place] [address] [place] Erythrocyte distribution width (RBC) [Ratio] 14.4 % Normal 11.5-15.0 [facility] Comment on above: Order Comment: Speci men Type: BLOOD SPECIMENOrdering Facility: [facility] Address: [address] [place] [address] Performed By: #### 5 7021-8 ####[facility] LABIA [id number] [place] [address] [place] Hematocrit (Bld) [Volume fraction] 44.1 % Normal 36.0-46.0 [facility] Comment on above: Order Comment: Speci men Type: BLOOD SPECIMENOrdering Facility: [facility] Address: [address] [place] [address] Performed By: #### 5 7021-8 ####[facility] LABIA [id number] [place] [address] [place] Hemoglobin (Bld) [Mass/Vol] 14.3 g/dL Normal 11.5-15.5 [facility] Comment on above: Order Comment: Speci men Type: BLOOD SPECIMENOrdering Facility: [facility] Address: [address] [place] [address] Performed By: #### 5 7021-8 ####[facility] LABIA [id number] [place] [address] [place] Immature granulocytes (Bld) [#/Vol] 10*3/uL Normal <0.10 [facility] Comment on above: Order Comment: Speci men Type: BLOOD SPECIMENOrdering Facility: [facility] Address: [address] [place] [address] Performed By: #### 5 7021-8 ####[facility] LABIA [id number] [place] [address] [place] Immature granulocytes/100 WBC (Bld) 0.2 % Normal [facility] Comment on above: Order Comment: Speci men Type: BLOOD SPECIMENOrdering Facility: [facility] Address: [address] [place] [address] Performed By: #### 5 7021-8 ####[facility] LABCLIA [id number] [place] [address] [place] Lymphocytes (Bld) [#/Vol] 2.18 10*3/uL Normal 1.00-4.00 [facility] Comment on above: Order Comment: Speci men Type: BLOOD SPECIMENOrdering Facility: [facility] Address: [address] [place] [address] Performed By: #### 5 7021-8 ####[facility] LABCLIA [id number] [place] [address] [place] Lymphocytes/100 WBC (Bld) 26.9 % Normal [facility] Comment on above: Order Comment: Speci men Type: BLOOD SPECIMENOrdering Facility: [facility] Address: [address] [place] [address] Performed By: #### 5 7021-8 ####[facility] LABCLIA [id number] [place] [address] [place] MCH (RBC) [Entitic mass] 28.9 pg Normal 26.0-34.0 [facility] Comment on above: Order Comment: Speci men Type: BLOOD SPECIMENOrdering Facility: [facility] Address: [address] [place] [address] Performed By: #### 5 7021-8 ####[facility] LABCLIA [id number] [place] [address] [place] MCHC (RBC) [Mass/Vol] 32.4 g/dL Normal 30.5-36.0 [facility] Comment on above: Order Comment: Speci men Type: BLOOD SPECIMENOrdering Facility: [facility] Address: [address] [place] [address] Performed By: #### 5 7021-8 ####[facility] LABCLIA [id number] [id number] [address] [place] MCV (RBC) [Entitic vol] 89.3 fL Normal 80.0-100.0 C [facility] Comment on above: Order Comment: Speci men Type: BLOOD SPECIMENOrdering Facility: [facility] Address: [address] [place] [address] Performed By: #### 5 7021-8 ####[facility] LABCLIA [id number] [place] [address] [place] Monocytes (Bld) [#/Vol] 0.39 10*3/uL Normal <0.87 [facility] Comment on above: Order Comment: Speci men Type: BLOOD SPECIMENOrdering Facility: [facility] Address: [address] [place] [address] Performed By: #### 5 7021-8 ####[facility] LABCLIA [id number] [place] [address] [place] Monocytes/100 WBC (Bld) 4.8 % Normal C [facility] Comment on above: Order Comment: Speci men Type: BLOOD SPECIMENOrdering Facility: [facility] Address: [address] [place] [address] Performed By: #### 5 7021-8 ####[facility] LABCLIA [id number] [place] [address] [place] Neutrophils (Bld) [#/Vol] 5.40 10*3/uL Normal 1.45-7.50 [facility] Comment on above: Order Comment: Speci men Type: BLOOD SPECIMENOrdering Facility: [facility] Address: [address] [place] [address] Performed By: #### 5 7021-8 ####[facility] LABCLIA [id number] [place] [address] [place] Neutrophils/100 WBC (Bld) 66.6 % Normal [facility] Comment on above: Order Comment: Speci men Type: BLOOD SPECIMENOrdering Facility: [facility] Address: [address] [place] [address] Performed By: #### 5 7021-8 ####[facility] LABCLIA [id number] [place] [address] [place] Nucleated RBC (Bld) [#/Vol] 10*3/uL Normal <0.01 [facility] Comment on above: Order Comment: Speci men Type: BLOOD SPECIMENOrdering Facility: [facility] Address: [address] [place] [address] Performed By: #### 5 7021-8 ####[facility] LABCLIA [id number] [place] [address] [place] Nucleated RBC/100 WBC (Bld) [Ratio] 0.0 /100 WBC Normal [facility] Comment on above: Order Comment: Speci men Type: BLOOD SPECIMENOrdering Facility: [facility] Address: [address] [place] [address] Performed By: #### 5 7021-8 ####[facility] LABIA [id number] [place] [address] [place] Platelet mean volume (Bld) [Entitic vol] 12.5 fL Normal 9.0-12.7 [facility] Comment on above: Order Comment: Speci men Type: BLOOD SPECIMENOrdering Facility: [facility] Address: [address] [place] [address] Performed By: #### 5 7021-8 ####[facility] LABCLIA [id number] [place] [address] [place] Platelets (Bld) [#/Vol] 175 10*3/uL Normal 150-400 [facility] Comment on above: Order Comment: Speci men Type: BLOOD SPECIMENOrdering Facility: [facility] Address: [address] [place] [address] Performed By: #### 5 7021-8 ####[facility] LABCLIA [id number] [place] [address] [place] RBC (Bld) [#/Vol] 4.94 10*6/uL Normal 3.90-5.20 [facility] Comment on above: Order Comment: Speci men Type: BLOOD SPECIMENOrdering Facility: [facility] Address: [address] [place] [address] Performed By: #### 5 7021-8 ####[facility] LABCLIA [id number] [place] [address] [place] WBC (Bld) [#/Vol] 8.11 10*3/uL Normal 3.70-11.00 [facility] Comment on above: Order Comment: Speci men Type: BLOOD SPECIMENOrdering Facility: [facility] Address: [address] [place] [address] Performed By: #### 5 7021-8 ####[facility] LABCLIA [id number] [place] [address] [place] ECG COMPLETEon 01-27-2024 ECG COMPLETE Normal [facility] HCG Preg Ur Qlon 01-27-2024 HCG ( test) Ql (U) Negative Normal Negative [facility] Comment on above: Order Comment: Speci men Type: URINE SPECIMENOrdering Facility: [facility] Address: [address] [place] [address] Result Comment: This test is intended to aid in the early detection of . Very dilute urine samples, as indicated by a low specific gravity, may not contain clearance representative levels of hCG. This test detects intact hCG only. This test does not reliably detect hCG degradation products, including free-beta subunit and beta-core fragment. Therefore, this test may show reduced reactivity in urine after 8 weeks gestation. A number of conditions other than , including trophoblastic disease and certain non-trophoblastic neoplasms cause elevated levels of hCG. As with any assay employing mouse antibodies, the possibility exists for interference by human anti-mouse antibodies (HAMA) in the specimen. The test provides a presumptive diagnosis for . Performed By: #### 2 106-3 ####[facility] LABCLIA [id number] [place] [address] [place] Magnesium SerPl-mCncon 01-26 Magnesium [Mass/Vol] 2.1 mg/dL Normal 1.7-2.3 [facility] Comment on above: Order Comment: Speci men Type: BLOOD SPECIMENOrdering Facility: [facility] Address: [address] [place] [address] Performed By: #### 2 4321-2, 2777-1, 39775-8 ####[facility] [id number] [place] [address] [place] PT panel Coag (PPP)on 2023 INR Coag (PPP) [Relative time] 1.0 {INR} Normal 0.9-1.3 [facility] Comment on above: Order Comment: Speci men Type: BLOOD SPECIMENOrdering Facility: [facility] Address: [address] [place] [address] Result Comment: Trice min K Antagonist (VKA) Therapeutic Range: INR 2 to 3 (Target INR of 2.5)Note: For patients treated with VKA drugs, such as warfarin, the [place] [employer] 2012 Guideline recommends a therapeutic INR range of 2 to 3 (target INR of 2.5). This recommendation includes high-risk patients with antiphospholipid syndrome with previous arterial or venous thromboembolism, current-generation mechanical or bioprosthetic aortic heart valve replacement.Note: Patients with mechanical aortic valve replacement and additional risk factors for thromboembolic events (atrial fibrillation, previous thromboembolism, LV dysfunction, hypercoagulable conditions) or an older generation mechanical AVR (i.e., ball in-Cage) or any mechanical MVR should have a INR therapeutic range of 2.5 to 3.5 (target INR of 3).Gracie GH, et al. Chest 2012, 141:7S-47SBenitez RA, et al. [facility] 2017, 70: 252-289 Performed By: #### 3 4528-0 ####[facility] [id number] [place] [address] [place] PT Coag (PPP) [Time] 10.9 s Normal 9.7-13.0 [facility] Comment on above: Order Comment: Speci men Type: BLOOD SPECIMENOrdering Facility: [facility] Address: [address] [place], [place] [address] Performed By: #### 3 4528-0 ####[facility] LABCLIA [id number] [place] [id number] [place] Phosphate SerPl-mCncon 01-26 Phosphate [Mass/Vol] 2.9 mg/dL Normal 2.7-4.8 [facility] Comment on above: Order Comment: Speci men Type: BLOOD SPECIMENOrdering Facility: [facility] Address: [address] [place] [address] Performed By: #### 2 4321-2, 2777-1, 15991-2 ####[facility] LABCLIA [id number] [place] [address] [place] Albumin SerPl-mCncon 024 Albumin [Mass/Vol] 4.6 g/dL Normal 3.9-4.9 [facility] Comment on above: Order Comment: Speci men Type: BLOOD SPECIMENOrdering Facility: [facility] Address: [address] [place] [address] Performed By: #### 1 9123-9, 59193-9, 1757, 2777-1 ####[facility] LABCLIA [id number] [place] [address] Basic metabolic 2000 panelon 01-20-2024 Anion gap [Moles/Vol] 8 mmol/L Normal 8-15 [facility] Comment on above: Order Comment: Speci men Type: BLOOD SPECIMENOrdering Facility: [facility] Address: [address] [place] [address] Performed By: #### 1 9123-9, 05272-3, 175-7, 2777-1 ####[facility] LABCLIA [id number] [place] [address] Calcium [Mass/Vol] 9.7 mg/dL Normal 8.5-10.2 [facility] Comment on above: Order Comment: Speci men Type: BLOOD SPECIMENOrdering Facility: [facility] Address: [address] [place] [address] Performed By: #### 1 9123-9, 15825-8, 1751-02, 2776- ####[facility] LABCLIA [id number] [place] [address] Chloride [Moles/Vol] 107 mmol/L Normal 98-107 [facility] Comment on above: Order Comment: Speci men Type: BLOOD SPECIMENOrdering Facility: [facility] Address: [address] [place] [address] Performed By: #### 1 9123-9, 12027-7, 1751-02, 2776- ####[facility] LABCLIA [id number] [place] [address] CO2 [Moles/Vol] 25 mmol/L Normal 22-30 [facility] Comment on above: Order Comment: Speci men Type: BLOOD SPECIMENOrdering Facility: [facility] Address: [address] [place] [address] Performed By: #### 1 9123-9, 96636-7, 1751-02, 2776- ####[facility] LABCLIA [id number] [place] [address] Creatinine [Mass/Vol] 0.96 mg/dL Normal 0.58-0.96 [facility] Comment on above: Order Comment: Speci men Type: BLOOD SPECIMENOrdering Facility: [facility] Address: [address] [place] [address] Performed By: #### 1 9123-9, 47313-1, 1751-02, 2776- ####[facility] LABCLIA [id number] [place] [address] Creatinine and Glomerular filtration rate.predicted panel (S/P/Bld) 81 mL/min/1.73m??? Normal >=60 [facility] Comment on above: Order Comment: Peter myles Type: BLOOD SPECIMENOrdering Facility: [facility] Address: [address] [place] [address] Result Comment: Rachel mated Glomerular Filtration Rate [...] accurately reflect actual GFR. Performed By: #### 1 9123-9, 94331-9, 1751-02, 2776-08 ####[facility] LABCLIA [id number] [place] [address] Glucose [Mass/Vol] 88 mg/dL Normal 74-99 [facility] Comment on above: Order Comment: Peter myles Type: BLOOD SPECIMENOrdering Facility: [facility] Address: [address] [place] [address] Result Comment: The [place] [employer] (ADA) provides guidance for cutoff values for fasting glucose and random glucose. The ADA defines fasting as no caloric intake for at least 8 hours. Fasting plasma glucose results between 100 to 125 mg/dL indicate increased risk for diabetes (prediabetes).Fasting plasma glucose results greater than or equal to 126 mg/dL meet the criteria for diagnosis of diabetes. In the absence of unequivocal hyperglycemia, results should be confirmed by repeat testing. In a patient with classic symptoms of hyperglycemia or hyperglycemic crisis, random plasma glucose results greater than or equal to 200 mg/dL meet the criteria for diagnosis of diabetes.Reference: Standards of Medical Care in Diabetes 2016, [place] [employer]. Diabetes Care. 2016.39(Suppl 1). Performed By: #### 1 9123-9, 49636-3, 7, 2776- ####[facility] LABCLIA [id number] [place] [address] Potassium [Moles/Vol] 3.4 mmol/L Low 3.7-5.1 [facility] Comment on above: Order Comment: Speci men Type: BLOOD SPECIMENOrdering Facility: [facility] Address: [address] [place] [address] Performed By: #### 1 9123-9, 03842-6, 1750-7, 277-1 ####[facility] LABCLIA [id number] [place] [address] Sodium [Moles/Vol] 140 mmol/L Normal 136-144 [facility] Comment on above: Order Comment: Speci men Type: BLOOD SPECIMENOrdering Facility: [facility] Address: [address] [place] [address] Performed By: #### 1 9123-9, 96281-2, 1750-7, 2776- ####[facility] LABIA [id number] [place] [address] Urea nitrogen [Mass/Vol] 28 mg/dL High 7-21 [facility] Comment on above: Order Comment: Speci men Type: BLOOD SPECIMENOrdering Facility: [facility] Address: [address] [place] [address] Performed By: #### 1 9123-9, 00357-6, 7, 277-1 ####[facility] LABIA [id number] [place] [address] CBC W Auto Differential pane l (Bld)on 01-20-2024 Basophils (Bld) [#/Vol] 0.04 10*3/uL Normal <0.11 [facility] Comment on above: Order Comment: Speci men Type: BLOOD SPECIMENOrdering Facility: [facility] Address: [address] [place] [address] Performed By: #### 5 7021-8 ####[facility] LABIA [id number] [place] [address] Basophils/100 WBC (Bld) 0.5 % Normal C [facility] Comment on above: Order Comment: Speci men Type: BLOOD SPECIMENOrdering Facility: [facility] Address: [address] [place] [address] Performed By: #### 5 7021-8 ####[facility] LABCLIA [id number] [place] [address] Differential cell count method Nom (Bld) Auto Normal [facility] Comment on above: Order Comment: Speci men Type: BLOOD SPECIMENOrdering Facility: [facility] Address: [address] [place] [address] Performed By: #### 5 7021-8 ####[facility] LABCLIA [id number] [place] [address] Eosinophils (Bld) [#/Vol] 0.15 10*3/uL Normal <0.46 [facility] Comment on above: Order Comment: Speci men Type: BLOOD SPECIMENOrdering Facility: [facility] Address: [address] [place] [address] Performed By: #### 5 7021-8 ####[facility] LABCLIA [id number] [place] [address] Eosinophils/100 WBC (Bld) 1.8 % Normal [facility] Comment on above: Order Comment: Speci men Type: BLOOD SPECIMENOrdering Facility: [facility] Address: [address] [place] [address] Performed By: #### 5 7021-8 ####[facility] LABCLIA [id number] [place] [address] Erythrocyte distribution width (RBC) [Ratio] 14.0 % Normal 11.5-15.0 [facility] Comment on above: Order Comment: Speci men Type: BLOOD SPECIMENOrdering Facility: [facility] Address: [address] [place] [address] Performed By: #### 5 7021-8 ####[facility] LABCLIA [id number] [place] [address] Hematocrit (Bld) [Volume fraction] 42.0 % Normal 36.0-46.0 [facility] Comment on above: Order Comment: Speci men Type: BLOOD SPECIMENOrdering Facility: [facility] Address: [address] [place] [address] Performed By: #### 5 7021-8 ####[facility] LABCLIA [id number] [place] [address] Hemoglobin (Bld) [Mass/Vol] 13.8 g/dL Normal 11.5-15.5 [facility] Comment on above: Order Comment: Speci men Type: BLOOD SPECIMENOrdering Facility: [facility] Address: [address] [place] [address] Performed By: #### 5 7021-8 ####[facility] LABCLIA [id number] [place] [address] Immature granulocytes (Bld) [#/Vol] 10*3/uL Normal <0.10 [facility] Comment on above: Order Comment: Speci men Type: BLOOD SPECIMENOrdering Facility: [facility] Address: [address] [place] [address] Performed By: #### 5 7021-8 ####[facility] LABCLIA [id number] [place] [address] Immature granulocytes/100 WBC (Bld) 0.2 % Normal [facility] Comment on above: Order Comment: Speci men Type: BLOOD SPECIMENOrdering Facility: [facility] Address: [address] [place] [address] Performed By: #### 5 7021-8 ####[facility] LABIA [id number] [place] [address] Lymphocytes (Bld) [#/Vol] 2.52 10*3/uL Normal 1.00-4.00 [facility] Comment on above: Order Comment: Speci men Type: BLOOD SPECIMENOrdering Facility: [facility] Address: [address] [place] [address] Performed By: #### 5 7021-8 ####[facility] LABCLIA [id number] [place] [address] Lymphocytes/100 WBC (Bld) 30.5 % Normal [facility] Comment on above: Order Comment: Speci men Type: BLOOD SPECIMENOrdering Facility: [facility] Address: [address] [place] [address] Performed By: #### 5 7021-8 ####[facility] LABCLIA [id number] [place] [address] MCH (RBC) [Entitic mass] 28.8 pg Normal 26.0-34.0 [facility] Comment on above: Order Comment: Speci men Type: BLOOD SPECIMENOrdering Facility: [facility] Address: [address] [place] [address] Performed By: #### 5 7021-8 ####[facility] LABIA [id number] [place] [address] MCHC (RBC) [Mass/Vol] 32.9 g/dL Normal 30.5-36.0 [facility] Comment on above: Order Comment: Speci men Type: BLOOD SPECIMENOrdering Facility: [facility] Address: [address] [place] [address] Performed By: #### 5 7021-8 ####[facility] LABCLIA [id number] [place] [address] MCV (RBC) [Entitic vol] 87.7 fL Normal 80.0-100.0 [facility] Comment on above: Order Comment: Speci men Type: BLOOD SPECIMENOrdering Facility: [facility] Address: [address] [place] [address] Performed By: #### 5 7021-8 ####[facility] LABIA [id number] [place] [address] Monocytes (Bld) [#/Vol] 0.43 10*3/uL Normal <0.87 [facility] Comment on above: Order Comment: Speci men Type: BLOOD SPECIMENOrdering Facility: [facility] Address: [address] [place] [address] Performed By: #### 5 7021-8 ####[facility] LABCLIA [id number] [place] [address] Monocytes/100 WBC (Bld) 5.2 % Normal [facility] Comment on above: Order Comment: Speci men Type: BLOOD SPECIMENOrdering Facility: [facility] Address: [address] [place] [address] Performed By: #### 5 7021-8 ####[facility] LABCLIA [id number] [place] [address] Neutrophils (Bld) [#/Vol] 5.09 10*3/uL Normal 1.45-7.50 [facility] Comment on above: Order Comment: Speci men Type: BLOOD SPECIMENOrdering Facility: [facility] Address: [address] [place] [address] Performed By: #### 5 7021-8 ####[facility] LABCLIA [id number] [place] [address] Neutrophils/100 WBC (Bld) 61.8 % Normal [facility] Comment on above: Order Comment: Speci men Type: BLOOD SPECIMENOrdering Facility: [facility] Address: [address] [place] [address] Performed By: #### 5 7021-8 ####[facility] LABCLIA [id number] [place] [address] Nucleated RBC (Bld) [#/Vol] 10*3/uL Normal <0.01 [facility] Comment on above: Order Comment: Speci men Type: BLOOD SPECIMENOrdering Facility: [facility] Address: [address] [place] [address] Performed By: #### 5 7021-8 ####[facility] LABCLIA [id number] [place] [address] Nucleated RBC/100 WBC (Bld) [Ratio] 0.0 /100 WBC Normal [facility] Comment on above: Order Comment: Speci men Type: BLOOD SPECIMENOrdering Facility: [facility] Address: [address] [place] [address] Performed By: #### 5 7021-8 ####[facility] LABCLIA [id number] [place] [address] Platelet mean volume (Bld) [Entitic vol] 11.8 fL Normal 9.0-12.7 [facility] Comment on above: Order Comment: Speci men Type: BLOOD SPECIMENOrdering Facility: [facility] Address: [address] [place] [address] Performed By: #### 5 7021-8 ####[facility] LABCLIA [id number] [place] [address] Platelets (Bld) [#/Vol] 181 10*3/uL Normal 150-400 [facility] Comment on above: Order Comment: Speci men Type: BLOOD SPECIMENOrdering Facility: [facility] Address: [address] [place] [address] Performed By: #### 5 7021-8 ####[facility] LABCLIA [id number] [place] [address] RBC (Bld) [#/Vol] 4.79 10*6/uL Normal 3.90-5.20 [facility] Comment on above: Order Comment: Speci men Type: BLOOD SPECIMENOrdering Facility: [facility] Address: [address] [place] [address] Performed By: #### 5 7021-8 ####[facility] LABCLIA [id number] [place] [address] WBC (Bld) [#/Vol] 8.25 10*3/uL Normal 3.70-11.00 [facility] Comment on above: Order Comment: Speci men Type: BLOOD SPECIMENOrdering Facility: [facility] Address: [address] [place] [address] Performed By: #### 5 7021-8 ####[facility] LABCLIA [id number] [place] [address] HISTORY PHYSICALon HISTORY PHYSICAL Normal [facility] Magnesium [Mass/Vol] 2.2 mg/dL Normal 1.7-2.3 [facility] Comment on above: Order Comment: Speci men Type: BLOOD SPECIMENOrdering Facility: [facility] Address: [address] [place] [address] Performed By: #### 1 9123-9, 91822-1, 1751-7, 2777-1 ####[facility] LABCLIA [id number] [place] [address] Phosphate SerPl-[facility] 01-19 Phosphate [Mass/Vol] 4.1 mg/dL Normal 2.7-4.8 [facility] Comment on above: Order Comment: Speci men Type: BLOOD SPECIMENOrdering Facility: [facility] Address: [address] [place] [address] Performed By: #### 1 9123-9, 74010-0, 175-7, 2777-1 ####[facility] LABIA [id number] [place] [address] TYPE AND SCREEN,30 DAYon ABO B Normal [facility] Comment on above: Order Comment: Speci men Type: BLOOD SPECIMENOrdering Facility: [facility] Address: [address] [place] [address] Performed By: #### T SCR30 ####CC MAIN BLOOD BANKCLIA [id number] [facility] [place] [address] [place] HISTORICAL AB SCR STATUS Negative Normal [facility] Comment on above: Order Comment: Speci men Type: BLOOD SPECIMENOrdering Facility: [facility] Address: [address] [place] [address] Performed By: #### T SCR30 ####CC MAIN BLOOD BANKCLIA [id number] [address] [address] [place] Rh Nom (Bld) Negative Normal [facility] Comment on above: Order Comment: Speci men Type: BLOOD SPECIMENOrdering Facility: [facility] Address: [address] [place] [address] Performed By: #### T SCR30 ####CC MAIN BLOOD BANKCLIA [id number] [place] [address] [place] Magnesium SerPl-mCncon 01-15 Magnesium [Mass/Vol] 2.3 mg/dL Normal 1.7-2.3 [facility] Comment on above: Order Comment: Speci men Type: BLOOD SPECIMENOrdering Facility: [facility] Address: [address] [place] [address] Performed By: #### 2 4362-6, 40079-8 ####[facility] LABIA [id number] [place] [address] Renal function [facility] panelon 01-16-2024 Albumin [Mass/Vol] 4.7 g/dL Normal 3.9-4.9 [facility] Comment on above: Order Comment: Speci men Type: BLOOD SPECIMENOrdering Facility: [facility] Address: [address] [place] [address] Performed By: #### 2 4362-6, 98478-5 ####[facility] LABIA [id number] [place] [address] Anion gap [Moles/Vol] 9 mmol/L Normal 8-15 [facility] Comment on above: Order Comment: Speci men Type: BLOOD SPECIMENOrdering Facility: [facility] Address: [address] [place] [address] Performed By: #### 2 4362-6, ####[facility] LABCLIA [id number] [place] [address] Calcium [Mass/Vol] 10.2 mg/dL Normal 8.5-10.2 [facility] Comment on above: Order Comment: Speci men Type: BLOOD SPECIMENOrdering Facility: [facility] Address: [address] [place] [address] Performed By: #### 2 4362-6, ####[facility] LABCLIA [id number] [place] [address] Chloride [Moles/Vol] 108 mmol/L High 98-107 [facility] Comment on above: Order Comment: Speci men Type: BLOOD SPECIMENOrdering Facility: [facility] Address: [address] [place] [address] Performed By: #### 2 4362-6, ####[facility] LABCLIA [id number] [place] [address] CO2 [Moles/Vol] 27 mmol/L Normal 22-30 [facility] Comment on above: Order Comment: Speci men Type: BLOOD SPECIMENOrdering Facility: [facility] Address: [address] [place] [address] Performed By: #### 2 4362-6, ####[facility] LABCLIA [id number] [place] [address] Creatinine [Mass/Vol] 1.06 mg/dL High 0.58-0.96 [facility] Comment on above: Order Comment: Speci men Type: BLOOD SPECIMENOrdering Facility: [facility] Address: [address] [place] [address] Performed By: #### 2 4362-6, ####[facility] LABCLIA [id number] [place] [address] Creatinine and Glomerular filtration rate.predicted panel (S/P/Bld) 72 mL/min/1.73m??? Normal >=60 [facility] Comment on above: Order Comment: Peter myles Type: BLOOD SPECIMENOrdering Facility: [facility] Address: [address] [place] [address] Result Comment: Rachel mated Glomerular Filtration Rate [...] reflect actual GFR. Performed By: #### 2 4362-6, 24894-9 ####[facility] LABCLIA [id number] [place] [address] Glucose [Mass/Vol] 94 mg/dL Normal 74-99 [facility] Comment on above: Order Comment: Peter myles Type: BLOOD SPECIMENOrdering Facility: [facility] Address: [address] [place] [address] Result Comment: The [place] [employer] (ADA) provides guidance for cutoff values for fasting glucose and random glucose. The ADA defines fasting as no caloric intake for at least 8 hours. Fasting plasma glucose results between 100 to 125 mg/dL indicate increased risk for diabetes (prediabetes).Fasting plasma glucose results greater than or equal to 126 mg/dL meet the criteria for diagnosis of diabetes. In the absence of unequivocal hyperglycemia, results should be confirmed by repeat testing. In a patient with classic symptoms of hyperglycemia or hyperglycemic crisis, random plasma glucose results greater than or equal to 200 mg/dL meet the criteria for diagnosis of diabetes.Reference: Standards of Medical Care in Diabetes 2016, [place] [employer]. Diabetes Care. 2016.39(Suppl 1). Performed By: #### 2 4362-6, 83096-0 ####[facility] LABCLIA [id number] [place] [address] Phosphate [Mass/Vol] 4.5 mg/dL Normal 2.7-4.8 [facility] Comment on above: Order Comment: Speci men Type: BLOOD SPECIMENOrdering Facility: [facility] Address: [address] [place] [address] Performed By: #### 2 4362-6, ####[facility] LABCLIA [id number] [place] [address] Potassium [Moles/Vol] 4.2 mmol/L Normal 3.7-5.1 [facility] Comment on above: Order Comment: Speci men Type: BLOOD SPECIMENOrdering Facility: [facility] Address: [address] [place], [place] [address] Performed By: #### 2 4362-6, ####[facility] LABIA [id number] [place] [address] Sodium [Moles/Vol] 144 mmol/L Normal 136-144 [facility] Comment on above: Order Comment: Speci men Type: BLOOD SPECIMENOrdering Facility: [facility] Address: [address] [place], [place] [address] Performed By: #### 2 4362-6, ####[facility] LABIA [id number] [place] [address] Urea nitrogen [Mass/Vol] 23 mg/dL High 7-21 [facility] Comment on above: Order Comment: Speci men Type: BLOOD SPECIMENOrdering Facility: [facility] Address: [address] [place] [address] Performed By: #### 2 4362-6, ####[facility] LABCLIA [id number] [place] [address] [facility] Magnesium [Mass/Vol] 2.2 mg/dL Normal 1.7-2.3 [facility] Comment on above: Order Comment: Speci men Type: BLOOD SPECIMENOrdering Facility: [facility] Address: [address] [place], [place] [address] Performed By: #### 2 4362-6, ####[facility] LABCLIA [id number] [place] [address] Renal function 2000 panelon 01-02-2024 Albumin [Mass/Vol] 4.7 g/dL Normal 3.9-4.9 [facility] Comment on above: Order Comment: Speci men Type: BLOOD SPECIMENOrdering Facility: [facility] Address: [address] [place] [address] Performed By: #### 2 4362-6, ####[facility] LABCLIA [id number] [place] [address] Anion gap [Moles/Vol] 9 mmol/L Normal 9-18 [facility] Comment on above: Order Comment: Speci men Type: BLOOD SPECIMENOrdering Facility: [facility] Address: [address] [place] [address] Performed By: #### 2 4366, ####[facility] LABIA [id number] [place] [address] Calcium [Mass/Vol] 10.0 mg/dL Normal 8.5-10.2 [facility] Comment on above: Order Comment: Speci men Type: BLOOD SPECIMENOrdering Facility: [facility] Address: [address] [place], [place] [address] Performed By: #### 2 4362-6, ####[facility] LABCLIA [id number] [place] [address] Chloride [Moles/Vol] 104 mmol/L Normal 97-105 [facility] Comment on above: Order Comment: Speci men Type: BLOOD SPECIMENOrdering Facility: [facility] Address: [address] [place], [place] [address] Performed By: #### 2 4362-6, ####[facility] LABCLIA [id number] [place] [address] CO2 [Moles/Vol] 27 mmol/L Normal 22-30 [facility] Comment on above: Order Comment: Speci men Type: BLOOD SPECIMENOrdering Facility: [facility] Address: [address] [place] [address] Performed By: #### 2 4362-6, ####[facility] LABCLIA [id number] [place] [address] Creatinine [Mass/Vol] 0.98 mg/dL High 0.58-0.96 [facility] Comment on above: Order Comment: Speci men Type: BLOOD SPECIMENOrdering Facility: [facility] Address: [address] [place] [address] Performed By: #### 2 4362-6, ####[facility] LABCLIA [id number] [place] [address] Creatinine and Glomerular filtration rate.predicted panel (S/P/Bld) 79 mL/min/1.73m??? Normal >=60 [facility] Comment on above: Order Comment: Speci men Type: BLOOD SPECIMENOrdering Facility: [facility] Address: [address] [place] [address] Result Comment: Rachel mated Glomerular Filtration Rate [...] reflect actual GFR. Performed By: #### 2 4362-6, ####[facility] LABCLIA [id number] [place] [address] Glucose [Mass/Vol] 103 mg/dL High 74-99 [facility] Comment on above: Order Comment: Speci men Type: BLOOD SPECIMENOrdering Facility: [facility] Address: [address] [place] [address] Result Comment: The [place] [employer] (ADA) provides guidance for cutoff values for fasting glucose and random glucose. The ADA defines fasting as no caloric intake for at least 8 hours. Fasting plasma glucose results between 100 to 125 mg/dL indicate increased risk for diabetes (prediabetes).Fasting plasma glucose results greater than or equal to 126 mg/dL meet the criteria for diagnosis of diabetes. In the absence of unequivocal hyperglycemia, results should be confirmed by repeat testing. In a patient with classic symptoms of hyperglycemia or hyperglycemic crisis, random plasma glucose results greater than or equal to 200 mg/dL meet the criteria for diagnosis of diabetes.Reference: Standards of Medical Care in Diabetes 2016, [place] [employer]. Diabetes Care. 2016.39(Suppl 1). Performed By: #### 2 4362-6, ####[facility] LABIA [id number] [place] [address] Phosphate [Mass/Vol] 3.9 mg/dL Normal 2.7-4.8 [facility] Comment on above: Order Comment: Speci men Type: BLOOD SPECIMENOrdering Facility: [facility] Address: [address] [place] [address] Performed By: #### 2 4362-, ####[facility] LABIA [id number] [place] [address] Potassium [Moles/Vol] 3.5 mmol/L Low 3.7-5.1 [facility] Comment on above: Order Comment: Speci men Type: BLOOD SPECIMENOrdering Facility: [facility] Address: [address] [place] [address] Performed By: #### 2 4362, ####[facility] LABIA [id number] [place] [address] Sodium [Moles/Vol] 140 mmol/L Normal 136-144 [facility] Comment on above: Order Comment: Speci men Type: BLOOD SPECIMENOrdering Facility: [facility] Address: [address] [place] [address] Performed By: #### 2 4362, ####[facility] LABCLIA [id number] [place] [address] Urea nitrogen [Mass/Vol] 21 mg/dL Normal 7-21 [facility] Comment on above: Order Comment: Speci men Type: BLOOD SPECIMENOrdering Facility: [facility] Address: [address] [place] [address] Performed By: #### 2 4362-6, ####[facility] LABCLIA [id number] [place] [address] Magnesium [facility] 12-22 Magnesium [Mass/Vol] 2.3 mg/dL Normal 1.7-2.3 [facility] Comment on above: Order Comment: Speci men Type: BLOOD SPECIMENOrdering Facility: [facility] Address: [address] [place] [address] Performed By: #### 2 4362-6, ####[facility] LABCLIA [id number] [place] [address] [address]al [address] [place], [place] [address]on 12-23-2023 Albumin [Mass/Vol] 4.7 g/dL Normal 3.9-4.9 [facility] Comment on above: Order Comment: Speci men Type: BLOOD SPECIMENOrdering Facility: [facility] Address: [address] [place] [address] Performed By: #### 2 4362-6, ####[facility] LABCLIA [id number] [place] [address] Anion gap [Moles/Vol] 9 mmol/L Normal 9-18 [facility] Comment on above: Order Comment: Speci men Type: BLOOD SPECIMENOrdering Facility: [facility] Address: [address] [place] [address] Performed By: #### 2 4362-6, ####[facility] LABCLIA [id number] [place] [address] Calcium [Mass/Vol] 9.8 mg/dL Normal 8.5-10.2 [facility] Comment on above: Order Comment: Speci men Type: BLOOD SPECIMENOrdering Facility: [facility] Address: [address] [place] [address] Performed By: #### 2 4362-6, ####[facility] LABCLIA [id number] [place] [address] Chloride [Moles/Vol] 108 mmol/L High 97-105 [facility] Comment on above: Order Comment: Speci men Type: BLOOD SPECIMENOrdering Facility: [facility] Address: [address] [place], [place] [address] Performed By: #### 2 4362-6, ####[facility] LABCLIA [id number] [place] [address] CO2 [Moles/Vol] 25 mmol/L Normal 22-30 [facility] Comment on above: Order Comment: Speci men Type: BLOOD SPECIMENOrdering Facility: [facility] Address: [address] [place] [address] Performed By: #### 2 4362-6, ####[facility] LABCLIA [id number] [place] [address] Creatinine [Mass/Vol] 0.90 mg/dL Normal 0.58-0.96 [facility] Comment on above: Order Comment: Speci men Type: BLOOD SPECIMENOrdering Facility: [facility] Address: [address] [place] [address] Performed By: #### 2 4362-6, ####[facility] LABCLIA [id number] [place] [address] Creatinine and Glomerular filtration rate.predicted panel (S/P/Bld) 87 mL/min/1.73m??? Normal >=60 [facility] Comment on above: Order Comment: Speci men Type: BLOOD SPECIMENOrdering Facility: [facility] Address: [address] [place] [address] Result Comment: Rachel mated Glomerular Filtration Rate [...] reflect actual GFR. Performed By: #### 2 4362-6, ####[facility] LABCLIA [id number] [place] [address] Glucose [Mass/Vol] 122 mg/dL High 74-99 [facility] Comment on above: Order Comment: Speci men Type: BLOOD SPECIMENOrdering Facility: [facility] Address: [address] [place] [address] Result Comment: The [place] [employer] (ADA) provides guidance for cutoff values for fasting glucose and random glucose. The ADA defines fasting as no caloric intake for at least 8 hours. Fasting plasma glucose results between 100 to 125 mg/dL indicate increased risk for diabetes (prediabetes).Fasting plasma glucose results greater than or equal to 126 mg/dL meet the criteria for diagnosis of diabetes. In the absence of unequivocal hyperglycemia, results should be confirmed by repeat testing. In a patient with classic symptoms of hyperglycemia or hyperglycemic crisis, random plasma glucose results greater than or equal to 200 mg/dL meet the criteria for diagnosis of diabetes.Reference: Standards of Medical Care in Diabetes 2016, [place] [employer]. Diabetes Care. 2016.39(Suppl 1). Performed By: #### 2 4362-6, ####[facility] LABCLIA [id number] [place] [address] Phosphate [Mass/Vol] 3.6 mg/dL Normal 2.7-4.8 [facility] Comment on above: Order Comment: Peter myles Type: BLOOD SPECIMENOrdering Facility: [facility] Address: [address] [place] [address] Performed By: #### 2 4362-6, ####[facility] LABCLIA [id number] [place] [address] Potassium [Moles/Vol] 4.0 mmol/L Normal 3.7-5.1 [facility] Comment on above: Order Comment: Speci men Type: BLOOD SPECIMENOrdering Facility: [facility] Address: [address] [place] [address] Performed By: #### 2 4362-6, ####[facility] LABCLIA [id number] [place] [address] Sodium [Moles/Vol] 142 mmol/L Normal 136-144 [facility] Comment on above: Order Comment: Speci men Type: BLOOD SPECIMENOrdering Facility: [facility] Address: [address] [place] [address] Performed By: #### 2 4362-6, ####[facility] LABIA [id number] [place] [address] Urea nitrogen [Mass/Vol] 18 mg/dL Normal 7-21 [facility] Comment on above: Order Comment: Speci men Type: BLOOD SPECIMENOrdering Facility: [facility] Address: [address] [place] [address] Performed By: #### 2 4362-6, ####[facility] LABCLIA [id number] [place] [address] CNPNon 12-19-2023 CNPN Normal [facility] Magnesium SerPl-mCncon 12-18 Magnesium [Mass/Vol] 2.2 mg/dL Normal 1.7-2.3 [facility] Comment on above: Order Comment: Speci men Type: BLOOD SPECIMENOrdering Facility: [facility] Address: [address] [place], [place] [address] Performed By: #### 1 9123-9, 33730-5 ####[facility] LABCLIA [id number] [place] [address] Renal function 2000 panelon 12-19-2023 Albumin [Mass/Vol] 4.5 g/dL Normal 3.9-4.9 [facility] Comment on above: Order Comment: Speci men Type: BLOOD SPECIMENOrdering Facility: [facility] Address: [address] [place] [address] Performed By: #### 1 9123-9, 22153-1 ####[facility] LABCLIA [id number] [place] [address] Anion gap [Moles/Vol] 8 mmol/L Low 9-18 [facility] Comment on above: Order Comment: Speci men Type: BLOOD SPECIMENOrdering Facility: [facility] Address: [address] [place] [address] Performed By: #### 1 9123-9, 66122-8 ####[facility] LABIA [id number] [place] [address] Calcium [Mass/Vol] 9.9 mg/dL Normal 8.5-10.2 [facility] Comment on above: Order Comment: Speci men Type: BLOOD SPECIMENOrdering Facility: [facility] Address: [address] [place] [address] Performed By: #### 1 9123-9, 72731-7 ####[facility] LABCLIA [id number] [place] [address] Chloride [Moles/Vol] 109 mmol/L High 97-105 [facility] Comment on above: Order Comment: Speci men Type: BLOOD SPECIMENOrdering Facility: [facility] Address: [address] [place] [address] Performed By: #### 1 9123-9, 98891-2 ####[facility] LABCLIA [id number] [place] [address] CO2 [Moles/Vol] 24 mmol/L Normal 22-30 [facility] Comment on above: Order Comment: Speci men Type: BLOOD SPECIMENOrdering Facility: [facility] Address: [address] [place] [id number] Performed By: #### 1 9123-9, 56553-6 ####[facility] LABCLIA [id number] [place] [address] Creatinine [Mass/Vol] 0.85 mg/dL Normal 0.58-0.96 [facility] Comment on above: Order Comment: Speci men Type: BLOOD SPECIMENOrdering Facility: [facility] Address: [address] [place] [address] Performed By: #### 1 9123-9, 34029-4 ####[facility] LABIA [id number] [place] [address] Creatinine and Glomerular filtration rate.predicted panel (S/P/Bld) 93 mL/min/1.73m??? Normal >=60 [facility] Comment on above: Order Comment: Speci men Type: BLOOD SPECIMENOrdering Facility: [facility] Address: [address] [place] [address] Result Comment: Rachel mated Glomerular Filtration Rate [...] accurately reflect actual GFR. Performed By: #### 1 9123-9, 38149-9 ####[facility] LABIA [id number] [place] [address] Glucose [Mass/Vol] 105 mg/dL High 74-99 [facility] Comment on above: Order Comment: Speci men Type: BLOOD SPECIMENOrdering Facility: [facility] Address: [address] [place] [address] Result Comment: The [place] [employer] (ADA) provides guidance for cutoff values for fasting glucose and random glucose. The ADA defines fasting as no caloric intake for at least 8 hours. Fasting plasma glucose results between 100 to 125 mg/dL indicate increased risk for diabetes (prediabetes).Fasting plasma glucose results greater than or equal to 126 mg/dL meet the criteria for diagnosis of diabetes. In the absence of unequivocal hyperglycemia, results should be confirmed by repeat testing. In a patient with classic symptoms of hyperglycemia or hyperglycemic crisis, random plasma glucose results greater than or equal to 200 mg/dL meet the criteria for diagnosis of diabetes.Reference: Standards of Medical Care in Diabetes 2016, [place] [employer]. Diabetes Care. 2016.39(Suppl 1). Performed By: #### 1 9123-9, 22840-6 ####[facility] LABCLIA [id number] [place] [address] Phosphate [Mass/Vol] 3.5 mg/dL Normal 2.7-4.8 [facility] Comment on above: Order Comment: Speci men Type: BLOOD SPECIMENOrdering Facility: [facility] Address: [address] [place] [address] Performed By: #### 1 91239, ####[facility] LABCLIA [id number] [place] [address] Potassium [Moles/Vol] 4.3 mmol/L Normal 3.7-5.1 [facility] Comment on above: Order Comment: Speci men Type: BLOOD SPECIMENOrdering Facility: [facility] Address: [address] [place] [address] Performed By: #### 1 91239, ####[facility] LABCLIA [id number] [place] [address] Sodium [Moles/Vol] 141 mmol/L Normal 136-144 [facility] Comment on above: Order Comment: Speci men Type: BLOOD SPECIMENOrdering Facility: [facility] Address: [address] [place] [address] Performed By: #### 1 9123-9, 91894-8 ####[facility] LABCLIA [id number] [place] [address] Urea nitrogen [Mass/Vol] 20 mg/dL Normal 7-21 [facility] Comment on above: Order Comment: Speci men Type: BLOOD SPECIMENOrdering Facility: [facility] Address: [address] [place] [address] Performed By: #### 1 9123-9, 56313-6 ####[facility] LABCLIA [id number] [place] [address] Magnesium [facility] 12-15 Magnesium [Mass/Vol] 2.3 mg/dL Normal 1.7-2.3 [facility] Comment on above: Order Comment: Speci men Type: BLOOD SPECIMENOrdering Facility: [facility] Address: [address] [place] [address] Performed By: #### 1 9123-9, 57267-6 ####[facility] LABCLIA [id number] [place] [address] Renal [address] [place] [address] 12-16-2023 Albumin [Mass/Vol] 4.4 g/dL Normal 3.9-4.9 [facility] Comment on above: Order Comment: Speci men Type: BLOOD SPECIMENOrdering Facility: [facility] Address: [address] [place] [address] Performed By: #### 1 9123-9, 66228-2 ####[facility] LABCLIA [id number] [place] [address] Anion gap [Moles/Vol] 8 mmol/L Low 9-18 [facility] Comment on above: Order Comment: Speci men Type: BLOOD SPECIMENOrdering Facility: [facility] Address: [address] [place] [address] Performed By: #### 1 9123-9, 74430-0 ####[facility] LABCLIA [id number] [place] [address] Calcium [Mass/Vol] 10.1 mg/dL Normal 8.5-10.2 [facility] Comment on above: Order Comment: Speci men Type: BLOOD SPECIMENOrdering Facility: [facility] Address: [address] [id number] Performed By: #### 1 9123-9, 81519-6 ####[facility] LABCLIA [id number] [place] [address] Chloride [Moles/Vol] 111 mmol/L High 97-105 [facility] Comment on above: Order Comment: Speci men Type: BLOOD SPECIMENOrdering Facility: [facility] Address: [address] [place] [address] Performed By: #### 1 9123-9, 26632-7 ####[facility] LABCLIA [id number] [place] [address] CO2 [Moles/Vol] 26 mmol/L Normal 22-30 [facility] Comment on above: Order Comment: Speci men Type: BLOOD SPECIMENOrdering Facility: [facility] Address: [address] [place] [address] Performed By: #### 1 9123-9, 37283-4 ####[facility] LABCLIA [id number] [place] [address] Creatinine [Mass/Vol] 0.87 mg/dL Normal 0.58-0.96 [facility] Comment on above: Order Comment: Speci men Type: BLOOD SPECIMENOrdering Facility: [facility] Address: [address] [place] [address] Performed By: #### 1 9123-9, 45110-1 ####[facility] LABCLIA [id number] [place] [address] Creatinine and Glomerular filtration rate.predicted panel (S/P/Bld) 91 mL/min/1.73m??? Normal >=60 [facility] Comment on above: Order Comment: Speci men Type: BLOOD SPECIMENOrdering Facility: [facility] Address: [address] [place] [address] Result Comment: Rachel mated Glomerular Filtration Rate (eGFR) is calculated using the 202 CKD-EPI creatinine equation. This equation utilizes serum creatinine, sex, and age as parameters. The creatinine assay has traceable calibration to isotope dilution-mass spectrometry. Refer to KDIGO guidelines for clinical interpretation. In patients with unstable renal function, e.g. those with acute kidney injury, the eGFR may not accurately reflect actual GFR. Performed By: #### 1 9123-9, 52051-0 ####[facility] LABCLIA [id number] [place] [address] Glucose [Mass/Vol] 89 mg/dL Normal 74-99 [facility] Comment on above: Order Comment: Peter myles Type: BLOOD SPECIMENOrdering Facility: [facility] Address: [address] [place] [address] Result Comment: The [place] Diabetes Association (ADA) provides guidance for cutoff values for fasting glucose and random glucose. The ADA defines fasting as no caloric intake for at least 8 hours. Fasting plasma glucose results between 100 to 125 mg/dL indicate increased risk for diabetes (prediabetes).Fasting plasma glucose results greater than or equal to 126 mg/dL meet the criteria for diagnosis of diabetes. In the absence of unequivocal hyperglycemia, results should be confirmed by repeat testing. In a patient with classic symptoms of hyperglycemia or hyperglycemic crisis, random plasma glucose results greater than or equal to 200 mg/dL meet the criteria for diagnosis of diabetes.Reference: Standards of Medical Care in Diabetes 2016, [place] [employer]. Diabetes Care. 2016.39(Suppl 1). Performed By: #### 1 9123-9, 62259-4 ####[facility] LABCLIA [id number] [place] [address] Phosphate [Mass/Vol] 3.1 mg/dL Normal 2.7-4.8 [facility] Comment on above: Order Comment: Peter myles Type: BLOOD SPECIMENOrdering Facility: [facility] Address: [address] [place] [address] Performed By: #### 1 9123-9, 99263-7 ####[facility] LABCLIA [id number] [place] [address] Potassium [Moles/Vol] 3.5 mmol/L Low 3.7-5.1 [facility] Comment on above: Order Comment: Speci men Type: BLOOD SPECIMENOrdering Facility: [facility] Address: [address] [place] [address] Performed By: #### 1 9123-9, 85242-4 ####[facility] LABCLIA [id number] [place] [address] Sodium [Moles/Vol] 145 mmol/L High 136-144 [facility] Comment on above: Order Comment: Speci men Type: BLOOD SPECIMENOrdering Facility: [facility] Address: [address] [place] [address] Performed By: #### 1 9123-9, 47928-9 ####[facility] LABCLIA [id number] [place] [address] Urea nitrogen [Mass/Vol] 21 mg/dL Normal 7-21 [facility] Comment on above: Order Comment: Speci men Type: BLOOD SPECIMENOrdering Facility: [facility] Address: [address] [place] [address] Performed By: #### 1 9123-9, 63453-0 ####[facility] LABCLIA [id number] [place] [address] Magnesium [facility] 12-12 Magnesium [Mass/Vol] 2.3 mg/dL Normal 1.7-2.3 [facility] Comment on above: Order Comment: Speci men Type: BLOOD SPECIMENOrdering Facility: [facility] Address: [address] [place] [address] Performed By: #### 2 4362-6, 17179-8 ####[facility] LABCLIA [id number] [place] [address] Renal function 2000 panelon 12-13-2023 Albumin [Mass/Vol] 4.6 g/dL Normal 3.9-4.9 [facility] Comment on above: Order Comment: Speci men Type: BLOOD SPECIMENOrdering Facility: [facility] Address: [address] [place] [address] Performed By: #### 2 4362-6, ####[facility] LABCLIA [id number] [place] [address] Anion gap [Moles/Vol] 9 mmol/L Normal 9-18 [facility] Comment on above: Order Comment: Speci men Type: BLOOD SPECIMENOrdering Facility: [facility] Address: [address] [place] [address] Performed By: #### 2 4362-6, ####[facility] LABCLIA [id number] [place] [address] Calcium [Mass/Vol] 10.0 mg/dL Normal 8.5-10.2 [facility] Comment on above: Order Comment: Speci men Type: BLOOD SPECIMENOrdering Facility: [facility] Address: [address] [place] [address] Performed By: #### 2 4362-6, ####[facility] LABCLIA [id number] [place] [address] Chloride [Moles/Vol] 105 mmol/L Normal 97-105 [facility] Comment on above: Order Comment: Speci men Type: BLOOD SPECIMENOrdering Facility: [facility] Address: [address] [place] [address] Performed By: #### 2 4362-6, ####[facility] LABCLIA [id number] [place] [address] CO2 [Moles/Vol] 29 mmol/L Normal 22-30 [facility] Comment on above: Order Comment: Speci men Type: BLOOD SPECIMENOrdering Facility: [facility] Address: [address] [place] [address] Performed By: #### 2 4362-6, ####[facility] LABCLIA [id number] [place] [address] Creatinine [Mass/Vol] 0.77 mg/dL Normal 0.58-0.96 [facility] Comment on above: Order Comment: Peter myles Type: BLOOD SPECIMENOrdering Facility: [facility] Address: [address] [place] [address] Performed By: #### 2 4362-6, ####[facility] LABCLIA [id number] [place] [address] Creatinine and Glomerular filtration rate.predicted panel (S/P/Bld) 105 mL/min/1.73m??? Normal >=60 [facility] Comment on above: Order Comment: Peter myles Type: BLOOD SPECIMENOrdering Facility: [facility] Address: [address] [place] [address] Result Comment: Rachel mated Glomerular Filtration Rate [...] reflect actual GFR. Performed By: #### 2 4362-6, ####[facility] LABCLIA [id number] [place] [address] Glucose [Mass/Vol] 97 mg/dL Normal 74-99 [facility] Comment on above: Order Comment: Peter myles Type: BLOOD SPECIMENOrdering Facility: [facility] Address: [address] [id number] Result Comment: The [place] Diabetes [employer] (ADA) provides guidance for cutoff values for fasting glucose and random glucose. The ADA defines fasting as no caloric intake for at least 8 hours. Fasting plasma glucose results between 100 to 125 mg/dL indicate increased risk for diabetes (prediabetes).Fasting plasma glucose results greater than or equal to 126 mg/dL meet the criteria for diagnosis of diabetes. In the absence of unequivocal hyperglycemia, results should be confirmed by repeat testing. In a patient with classic symptoms of hyperglycemia or hyperglycemic crisis, random plasma glucose results greater than or equal to 200 mg/dL meet the criteria for diagnosis of diabetes.Reference: Standards of Medical Care in Diabetes 2016, [place] [employer]. Diabetes Care. 2016.39(Suppl 1). Performed By: #### 2 4362-6, ####[facility] LABCLIA [id number] [place] [address] Phosphate [Mass/Vol] 2.6 mg/dL Low 2.7-4.8 [facility] Comment on above: Order Comment: Speci men Type: BLOOD SPECIMENOrdering Facility: [facility] Address: [address] [place] [address] Performed By: #### 2 4362-6, ####[facility] LABIA [id number] [place] [address] Potassium [Moles/Vol] 2.7 mmol/L Low 3.7-5.1 [facility] Comment on above: Order Comment: Speci men Type: BLOOD SPECIMENOrdering Facility: [facility] Address: [address] [place] [address] Performed By: #### 2 4366, ####[facility] LABIA [id number] [place] [address] Sodium [Moles/Vol] 143 mmol/L Normal 136-144 [facility] Comment on above: Order Comment: Speci men Type: BLOOD SPECIMENOrdering Facility: [facility] Address: [address] [place] [address] Performed By: #### 2 4362-6, ####[facility] LABIA [id number] [place] [address] Urea nitrogen [Mass/Vol] 25 mg/dL High 7-21 [facility] Comment on above: Order Comment: Speci men Type: BLOOD SPECIMENOrdering Facility: [facility] Address: [address] [place], [place] [address] Performed By: #### 2 4362-6, 10011-2 ####[facility] LABCLIA [id number] [place] [address] CNCOon 12-11-2023 CNCO Letter Text Normal [facility] CNOVon 12-11-2023 CNOV Normal [facility] Magnesium SerPl-mCncon 12-10 Magnesium [Mass/Vol] 2.2 mg/dL Normal 1.7-2.3 [facility] Comment on above: Order Comment: Speci men Type: BLOOD SPECIMENOrdering Facility: [facility] Address: [address] [place] [address] Performed By: #### 1 9123-9 ####[facility] LABCLIA [id number] [place] [address] [place] Basic metabolic 2000 panelon 12-10-2023 Anion gap [Moles/Vol] 11 mmol/L Normal 9-18 [facility] Comment on above: Order Comment: Speci men Type: BLOOD SPECIMENOrdering Facility: [facility] Address: [address] [place] [address] Performed By: #### 2 4321-2 ####[facility] LABCLIA [id number] [place] [address] [place] Calcium [Mass/Vol] 9.0 mg/dL Normal 8.5-10.2 [facility] Comment on above: Order Comment: Speci men Type: BLOOD SPECIMENOrdering Facility: [facility] Address: [address] [place] [address] Performed By: #### 2 4321-2 ####[facility] LABCLIA [id number] [place] [address] [place] Chloride [Moles/Vol] 108 mmol/L High 97-105 [facility] Comment on above: Order Comment: Speci men Type: BLOOD SPECIMENOrdering Facility: [facility] Address: [address] [place] [address] Performed By: #### 2 4321-2 ####[facility] LABCLIA [id number] [place] [address] [place] CO2 [Moles/Vol] 30 mmol/L Normal 22-30 [facility] Comment on above: Order Comment: Speci men Type: BLOOD SPECIMENOrdering Facility: [facility] Address: [address] [place] [address] Performed By: #### 2 4321-2 ####[facility] LABCLIA [id number] [place] [address] [place] Creatinine [Mass/Vol] 0.55 mg/dL Low 0.58-0.96 [facility] Comment on above: Order Comment: Speci men Type: BLOOD SPECIMENOrdering Facility: [facility] Address: [address] [place] [address] Performed By: #### 2 4321-2 ####[facility] LABIA [id number] [place] [address] [place] Creatinine and Glomerular filtration rate.predicted panel (S/P/Bld) 125 mL/min/1.73m??? Normal >=60 [facility] Comment on above: Order Comment: Speci men Type: BLOOD SPECIMENOrdering Facility: [facility] Address: [address] [place] [address] Result Comment: Rachel mated Glomerular Filtration Rate [...] actual GFR. Performed By: #### 2 4321-2 ####[facility] LABCLIA [id number] [place] [address] [place] Glucose [Mass/Vol] 83 mg/dL Normal 74-99 [facility] Comment on above: Order Comment: Speci men Type: BLOOD SPECIMENOrdering Facility: [facility] Address: [address] [place] [address] Result Comment: The [place] [employer] (ADA) provides guidance for cutoff values for fasting glucose and random glucose. The ADA defines fasting as no caloric intake for at least 8 hours. Fasting plasma glucose results between 100 to 125 mg/dL indicate increased risk for diabetes (prediabetes).Fasting plasma glucose results greater than or equal to 126 mg/dL meet the criteria for diagnosis of diabetes. In the absence of unequivocal hyperglycemia, results should be confirmed by repeat testing. In a patient with classic symptoms of hyperglycemia or hyperglycemic crisis, random plasma glucose results greater than or equal to 200 mg/dL meet the criteria for diagnosis of diabetes.Reference: Standards of Medical Care in Diabetes 2016, [place] [employer]. Diabetes Care. 2016.39(Suppl 1). Performed By: #### 2 4321-2 ####[facility] LABCLIA [id number] [place] [address] [place] Potassium [Moles/Vol] 2.4 mmol/L Critically low 3.7-5.1 [facility] Comment on above: Order Comment: Speci men Type: BLOOD SPECIMENOrdering Facility: [facility] Address: [address] [place] [address] Performed By: #### 2 4321-2 ####[facility] LABCLIA [id number] [place] [address] [place] Sodium [Moles/Vol] 149 mmol/L High 136-144 [facility] Comment on above: Order Comment: Speci men Type: BLOOD SPECIMENOrdering Facility: [facility] Address: [address] [place] [address] Performed By: #### 2 4321-2 ####[facility] LABCLIA [id number] [place] [address] [place] Urea nitrogen [Mass/Vol] 9 mg/dL Normal 7-21 [facility] Comment on above: Order Comment: Speci men Type: BLOOD SPECIMENOrdering Facility: [facility] Address: [address] [place] [address] Performed By: #### 2 4321-2 ####[facility] LABIA [id number] [place] [address] [place] Gas and Carbon monoxide pane l (BldV)on 12-10-2023 Base excess Calc (BldV) [Moles/Vol] 6 mmol/L High 0-2 [facility] Comment on above: Order Comment: Speci men Type: VENOUS BLOOD SPECIMENOrdering Facility: [facility] Address: [address] [place] [address] Performed By: #### 2 4344-4 ####[facility] [id number] [place] [address] [place] Body temperature 98.24 [degF] Normal [facility] Comment on above: Order Comment: Speci men Type: VENOUS BLOOD SPECIMENOrdering Facility: [facility] Address: [address] [place] [address] Performed By: #### 2 4344-4 ####[facility] [id number] [place] [address] [place] Calcium.ionized (Bld) [Mass/Vol] 1.13 mmol/L Normal 1.08-1.30 [facility] Comment on above: Order Comment: Speci men Type: VENOUS BLOOD SPECIMENOrdering Facility: [facility] Address: [address] [place] [address] Performed By: #### 2 4344-4 ####[facility] LABIA [id number] [place] [address] [place] Calcium.ionized adjusted to pH 7.4 (BldA) [Moles/Vol] 1.14 mmol/L Normal 1.08-1.30 [facility] Comment on above: Order Comment: Speci men Type: VENOUS BLOOD SPECIMENOrdering Facility: [facility] Address: [address] [place], [place] [address] Performed By: #### 2 4344-4 ####[facility] LABCLIA [id number] [place] [address] [place] Carboxyhemoglobin (BldV) [Mass fraction] 3.1 % High 0.0-2.0 [facility] Comment on above: Order Comment: Speci men Type: VENOUS BLOOD SPECIMENOrdering Facility: [facility] Address: [address] [place] [address] Result Comment: Carb oxyhemoglobin Reference Range for Smokers: 2.0-8.0% Performed By: #### 2 4344-4 ####[facility] LABCLIA [id number] [place] [address] [place] CO2 (BldV) [Partial pressure] 49 mm[Hg] Normal 42-55 [facility] Comment on above: Order Comment: Speci men Type: VENOUS BLOOD SPECIMENOrdering Facility: [facility] Address: [address] [place], [place] [address] Performed By: #### 2 4344-4 ####[facility] LABCLIA [id number] [place] [address] [place] CO2 adjusted to patient's actual temperature (BldV) [Partial pressure] 48 mmHg Normal 42-55 [facility] Comment on above: Order Comment: Speci men Type: VENOUS BLOOD SPECIMENOrdering Facility: [facility] Address: [address] [place], [place] [address] Performed By: #### 2 4344-4 ####[facility] LABCLIA [id number] [place] [address] [place] COMMENTS Critical Value: K+ Normal [facility] Comment on above: Order Comment: Speci men Type: VENOUS BLOOD SPECIMENOrdering Facility: [facility] Address: [address] [place], [place] [address] Performed By: #### 2 4344-4 ####[facility] LABCLIA [id number] [place] [address] [place] DATE/TIME NOTIFIED [id number] PM Normal C [facility] Comment on above: Order Comment: Speci men Type: VENOUS BLOOD SPECIMENOrdering Facility: [facility] Address: [address] [place] [address] Performed By: #### 2 4344-4 ####[facility] LABCLIA [id number] [place] [address] [place] Glucose [Mass/Vol] 91 mg/dL Normal 60-105 [facility] Comment on above: Order Comment: Speci men Type: VENOUS BLOOD SPECIMENOrdering Facility: [facility] Address: [address] [place] [address] Performed By: #### 2 4344-4 ####[facility] LABCLIA [id number] [place] [address] [place] HCO3 (Bld) [Moles/Vol] 31 mmol/L High 24-28 [facility] Comment on above: Order Comment: Speci men Type: VENOUS BLOOD SPECIMENOrdering Facility: [facility] Address: [address] [place] [address] Performed By: #### 2 4344-4 ####[facility] LABCLIA [id number] [place] [address] [place] Hematocrit (Bld) [Volume fraction] 45.6 % Normal 36.0-46.0 [facility] Comment on above: Order Comment: Speci men Type: VENOUS BLOOD SPECIMENOrdering Facility: [facility] Address: [address] [place] [address] Performed By: #### 2 4344-4 ####[facility] LABCLIA [id number] [place] [address] [place] Hemoglobin (Bld) [Mass/Vol] 14.9 g/dL Normal 11.5-15.5 [facility] Comment on above: Order Comment: Speci men Type: VENOUS BLOOD SPECIMENOrdering Facility: [facility] Address: [address] [place] [address] Performed By: #### 2 4344-4 ####[facility] LABCLIA [id number] [address] [address] [place] Lactate [Moles/Vol] 1.0 mmol/L Normal 0.5-2.2 [facility] Comment on above: Order Comment: Speci men Type: VENOUS BLOOD SPECIMENOrdering Facility: [facility] Address: [address] [place] [address] Performed By: #### 2 4344-4 ####[facility] LABCLIA [id number] [place] [address] [place] Methemoglobin (Bld) [Mass fraction] 0.3 % Normal 0.0-1.5 [facility] Comment on above: Order Comment: Speci men Type: VENOUS BLOOD SPECIMENOrdering Facility: [facility] Address: [address] [place] [address] Performed By: #### 2 4344-4 ####[facility] LABCLIA [id number] [place] [address] [place] NOTIFIED WHOM Ambrosio Figueroa [facility] [facility] Comment on above: Order Comment: Speci men Type: VENOUS BLOOD SPECIMENOrdering Facility: [facility] Address: [address] [place] [address] Performed By: #### 2 4344-4 ####[facility] LABCLIA [id number] [place] [address] [place] O2 THERAPY RA=Room Air Normal [facility] Comment on above: Order Comment: Speci men Type: VENOUS BLOOD SPECIMENOrdering Facility: [facility] Address: [address] [place], [place] [address] Performed By: #### 2 4344-4 ####[facility] LABCLIA [id number] [address] [address] [place] Oxygen (BldV) [Partial pressure] 98 mm[Hg] High 35-45 [facility] Comment on above: Order Comment: Speci men Type: VENOUS BLOOD SPECIMENOrdering Facility: [facility] Address: [address] [place], [place] [address] Performed By: #### 2 4344-4 ####[facility] LABCLIA [id number] [place] [id number] [place] Oxygen adjusted to patient's actual temperature (BldV) [Partial pressure] 97 mmHg High 35-45 [facility] Comment on above: Order Comment: Speci men Type: VENOUS BLOOD SPECIMENOrdering Facility: [facility] Address: [address] [place] [address] Performed By: #### 2 4344-4 ####[facility] LABCLIA [id number] [place] [address] [place] Oxygen saturation in Venous blood 98 % High 60-85 [facility] Comment on above: Order Comment: Speci men Type: VENOUS BLOOD SPECIMENOrdering Facility: [facility] Address: [address] [place], [place] [address] Performed By: #### 2 4344-4 ####[facility] LABCLIA [id number] [place] [address] [place] Oxyhemoglobin (BldV) [Mass fraction] 95 % High 60-85 [facility] Comment on above: Order Comment: Speci men Type: VENOUS BLOOD SPECIMENOrdering Facility: [facility] Address: [address] [place], [place] [address] Performed By: #### 2 4344-4 ####[facility] LABCLIA [id number] [place] [id number] [place] pH (BldV) 7.42 [pH] Normal 7.32-7.42 [facility] Comment on above: Order Comment: Speci men Type: VENOUS BLOOD SPECIMENOrdering Facility: [facility] Address: [address] [place] [address] Performed By: #### 2 4344-4 ####[facility] LABIA [id number] [place] [address] [place] pH adjusted to patient's actual temperature (BldV) 7.42 Normal 7.32-7.42 [facility] Comment on above: Order Comment: Speci men Type: VENOUS BLOOD SPECIMENOrdering Facility: [facility] Address: [address] [place] [address] Performed By: #### 2 4344-4 ####[facility] LABIA [id number] [place] [address] [place] Potassium [Moles/Vol] 2.3 mmol/L Critically low 3.5-5.0 [facility] Comment on above: Order Comment: Speci men Type: VENOUS BLOOD SPECIMENOrdering Facility: [facility] Address: [address] [place] [address] Performed By: #### 2 4344-4 ####[facility] LABIA [id number] [place] [address] [place] Sodium [Moles/Vol] 147 mmol/L High 136-144 [facility] Comment on above: Order Comment: Speci men Type: VENOUS BLOOD SPECIMENOrdering Facility: [facility] Address: [address] [place] [address] Performed By: #### 2 4344-4 ####[facility] LABIA [id number] [place] [address] [place] Base excess Calc (BldV) [Moles/Vol] 6 mmol/L High 0-2 [facility] Comment on above: Order Comment: Speci men Type: VENOUS BLOOD SPECIMENOrdering Facility: [facility] Address: [address] [place], [place] [address] Performed By: #### 2 4344-4 ####[facility] LABCLIA [id number] [place] [address] [place] Body temperature 97.88 [degF] Normal [facility] Comment on above: Order Comment: Speci men Type: VENOUS BLOOD SPECIMENOrdering Facility: [facility] Address: [address] [place] [address] Performed By: #### 2 4344-4 ####[facility] LABCLIA [id number] [place] [address] [place] Calcium.ionized (Bld) [Mass/Vol] 1.16 mmol/L Normal 1.08-1.30 [facility] Comment on above: Order Comment: Speci men Type: VENOUS BLOOD SPECIMENOrdering Facility: [facility] Address: [address] [place] [address] Performed By: #### 2 4344-4 ####[facility] LABIA [id number] [place] [address] [place] Calcium.ionized adjusted to pH 7.4 (BldA) [Moles/Vol] 1.18 mmol/L Normal 1.08-1.30 [facility] Comment on above: Order Comment: Speci men Type: VENOUS BLOOD SPECIMENOrdering Facility: [facility] Address: [address] [place] [address] Performed By: #### 2 4344-4 ####[facility] LABIA [id number] [place] [address] [place] Carboxyhemoglobin (BldV) [Mass fraction] 3.6 % High 0.0-2.0 [facility] Comment on above: Order Comment: Speci men Type: VENOUS BLOOD SPECIMENOrdering Facility: [facility] Address: [address] [place] [address] Result Comment: Carb oxyhemoglobin Reference Range for Smokers: 2.0-8.0% Performed By: #### 2 4344-4 ####[facility] LABCLIA [id number] [address] [address] [place] CO2 (BldV) [Partial pressure] 47 mm[Hg] Normal 42-55 [facility] Comment on above: Order Comment: Speci men Type: VENOUS BLOOD SPECIMENOrdering Facility: [facility] Address: [address] [place], [place] [address] Performed By: #### 2 4344-4 ####[facility] LABCLIA [id number] [place] [address] [place] CO2 adjusted to patient's actual temperature (BldV) [Partial pressure] 46 mmHg Normal 42-55 [facility] Comment on above: Order Comment: Speci men Type: VENOUS BLOOD SPECIMENOrdering Facility: [facility] Address: [address] [place], [place] [address] Performed By: #### 2 4344-4 ####[facility] LABCLIA [id number] [place] [address] [place] COMMENTS Critical Value: K+ Normal [facility] Comment on above: Order Comment: Speci men Type: VENOUS BLOOD SPECIMENOrdering Facility: [facility] Address: [address] [place], [place] [address] Performed By: #### 2 4344-4 ####[facility] LABCLIA [id number] [place] [id number] [place] DATE/TIME NOTIFIED 706341 [id number] AM Normal [facility] Comment on above: Order Comment: Speci men Type: VENOUS BLOOD SPECIMENOrdering Facility: [facility] Address: [address] [place] [address] Performed By: #### 2 4344-4 ####[facility] LABCLIA [id number] [place] [id number] [place] Glucose [Mass/Vol] 85 mg/dL Normal 60-105 [facility] Comment on above: Order Comment: Speci men Type: VENOUS BLOOD SPECIMENOrdering Facility: [facility] Address: [address] [place] [address] Performed By: #### 2 4344-4 ####[facility] LABCLIA [id number] [place] [address] [place] HCO3 (Bld) [Moles/Vol] 31 mmol/L High 24-28 [facility] Comment on above: Order Comment: Speci men Type: VENOUS BLOOD SPECIMENOrdering Facility: [facility] Address: [address] [place] [address] Performed By: #### 2 4344-4 ####[facility] LABCLIA [id number] [place] [address] [place] Hematocrit (Bld) [Volume fraction] 47.9 % High 36.0-46.0 [facility] Comment on above: Order Comment: Speci men Type: VENOUS BLOOD SPECIMENOrdering Facility: [facility] Address: [address] [place] [address] Performed By: #### 2 4344-4 ####[facility] LABIA [id number] [place] [address] [place] Hemoglobin (Bld) [Mass/Vol] 15.6 g/dL High 11.5-15.5 [facility] Comment on above: Order Comment: Speci men Type: VENOUS BLOOD SPECIMENOrdering Facility: [facility] Address: [address] [place] [address] Performed By: #### 2 4344-4 ####[facility] LABCLIA [id number] [place] [address] [place] Lactate [Moles/Vol] 1.7 mmol/L Normal 0.5-2.2 [facility] Comment on above: Order Comment: Speci men Type: VENOUS BLOOD SPECIMENOrdering Facility: [facility] Address: [address] [place] [address] Performed By: #### 2 4344-4 ####[facility] LABCLIA [id number] [place] [id number] [place] Methemoglobin (Bld) [Mass fraction] 0.4 % Normal 0.0-1.5 [facility] Comment on above: Order Comment: Speci men Type: VENOUS BLOOD SPECIMENOrdering Facility: [facility] Address: [address] [place] [address] Performed By: #### 2 4344-4 ####[facility] LABCLIA [id number] [place] [address] [place] NOTIFIED WHOM Tay Meneses ORCharles Figueroa Normal [facility] Comment on above: Order Comment: Speci men Type: VENOUS BLOOD SPECIMENOrdering Facility: [facility] Address: [address] [place] [address] Performed By: #### 2 4344-4 ####[facility] LABCLIA [id number] [place] [address] [place] O2 THERAPY RA=Room Air Normal [facility] Comment on above: Order Comment: Speci men Type: VENOUS BLOOD SPECIMENOrdering Facility: [facility] Address: [address] [place] [address] Result Comment: RA=R oom Air Performed By: #### 2 4344-4 ####[facility] LABCLIA [id number] [place] [address] [place] Oxygen (BldV) [Partial pressure] 44 mm[Hg] Normal 35-45 [facility] Comment on above: Order Comment: Speci men Type: VENOUS BLOOD SPECIMENOrdering Facility: [facility] Address: [address] [place], [place] [address] Performed By: #### 2 4344-4 ####[facility] LABCLIA [id number] [place] [id number] [place] Oxygen adjusted to patient's actual temperature (BldV) [Partial pressure] 43 mmHg Normal 35-45 [facility] Comment on above: Order Comment: Speci men Type: VENOUS BLOOD SPECIMENOrdering Facility: [facility] Address: [address] [place] [address] Performed By: #### 2 4344-4 ####[facility] LABCLIA [id number] [address] [address] [place] Oxygen saturation in Venous blood 79 % Normal 60-85 [facility] Comment on above: Order Comment: Speci men Type: VENOUS BLOOD SPECIMENOrdering Facility: [facility] Address: [address] [place], [place] [address] Performed By: #### 2 4344-4 ####[facility] LABCLIA [id number] [place] [address] [place] Oxyhemoglobin (BldV) [Mass fraction] 76 % Normal 60-85 [facility] Comment on above: Order Comment: Speci men Type: VENOUS BLOOD SPECIMENOrdering Facility: [facility] Address: [address] [place], [place] [address] Performed By: #### 2 4344-4 ####[facility] LABIA [id number] [place] [id number] [place] pH (BldV) 7.43 [pH] High 7.32-7.42 [facility] Comment on above: Order Comment: Speci men Type: VENOUS BLOOD SPECIMENOrdering Facility: [facility] Address: [address] [place], [place] [address] Performed By: #### 2 4344-4 ####[facility] LABCLIA [id number] [address] [address] [place] pH adjusted to patient's actual temperature (BldV) 7.44 High 7.32-7.42 [facility] Comment on above: Order Comment: Speci men Type: VENOUS BLOOD SPECIMENOrdering Facility: [facility] Address: [address] [place], [place] [address] Performed By: #### 2 4344-4 ####[facility] LABCLIA [id number] [place] [address] [place] Potassium [Moles/Vol] 2.2 mmol/L Critically low 3.5-5.0 [facility] Comment on above: Order Comment: Speci men Type: VENOUS BLOOD SPECIMENOrdering Facility: [facility] Address: [address] [place] [address] Performed By: #### 2 4344-4 ####[facility] LABCLIA [id number] [place] [address] [place] Sodium [Moles/Vol] 147 mmol/L High 136-144 [facility] Comment on above: Order Comment: Speci men Type: VENOUS BLOOD SPECIMENOrdering Facility: [facility] Address: [address] [place] [address] Performed By: #### 2 4344-4 ####[facility] LABCLIA [id number] [place] [address] [place] NURSING PROGon 12-10-2023 NURSING PROG Normal [facility] NURSING PROG Normal [facility] NURSING PROG Normal [facility] NURSING PROG Normal [facility] NURSING PROG Normal [facility] NURSING PROG Normal [facility] NURSING PROG Normal [facility] NURSING PROG Normal [facility] NURSING PROG Normal [facility] Comprehensive metabolic 2000 panelon 12-06-2023 Albumin [Mass/Vol] 4.3 g/dL 3.9 - 4.9 g/dL [facility] ALP [Catalytic activity/Vol] 147 U/L High 34 - 123 U/L [facility] ALT [Catalytic activity/Vol] 12 U/L 7 - 38 U/L [facility] Anion gap [Moles/Vol] 15 mmol/L 9 - 18 mmol/L [facility] AST [Catalytic activity/Vol] 18 U/L 13 - 35 U/L [facility] Bilirubin [Mass/Vol] 0.9 mg/dL 0.2 - 1 .3 mg/dL [facility] Calcium [Mass/Vol] 9.7 mg/dL 8.5 - 10. 2 mg/dL [facility] Chloride [Moles/Vol] 105 mmol/L 97 - 10 5 mmol/L [facility] CO2 [Moles/Vol] 27 mmol/L 22 - 30 mmol/L [facility] Creatinine [Mass/Vol] 0.76 mg/dL 0.58 - 0.96 mg/dL [facility] GFR/1.73 sq M.predicted among non-blacks MDRD (S/P/Bld) [Vol rate/Area] 107 mL/min/{1.73_m2} - PINF [facility] Comment on above: Estimated Glomerular Filtration Rate [...] [Mass/Vol] 77 mg/dL 74 - 99 mg/dL [facility] Comment on above: The [place] Di[employer] Association (ADA) provides guidance for [...] Standards of Medical Care in Diabetes 2016, [place] [employer]. Diabetes Care. 2016.39(Suppl 1). Interpretation and review of laboratory results Abnormal [facility] Potassium [Moles/Vol] 2.4 mmol/L Critically low 3.7 - 5.1 mmol/L [facility] Protein [Mass/Vol] 6.8 g/dL 6.3 - 8.0 g/dL [facility] Sodium [Moles/Vol] 147 mmol/L High 136 - 144 mmol/L [facility] Urea nitrogen [Mass/Vol] 19 mg/dL 7 - 21 mg/dL [facility] Albumin [Mass/Vol] 4.3 g/dL Normal 3.9-4.9 [facility] Comment on above: Order Comment: Speci men Type: BLOOD SPECIMENOrdering Facility: [facility] Address: [address] [place], [place] [address] Performed By: #### 2 4323-8 ####[facility] LABCLIA [id number] [place] [address] [place] ALP [Catalytic activity/Vol] 147 U/L High 34-123 [facility] Comment on above: Order Comment: Speci men Type: BLOOD SPECIMENOrdering Facility: [facility] Address: [address] [place] [address] Performed By: #### 2 4323-8 ####[facility] LABCLIA [id number] [place] [address] [place] ALT [Catalytic activity/Vol] 12 U/L Normal 7-38 [facility] Comment on above: Order Comment: Speci men Type: BLOOD SPECIMENOrdering Facility: [facility] Address: [address] [place] [address] Performed By: #### 2 4323-8 ####[facility] LABCLIA [id number] [place] [address] [place] Anion gap [Moles/Vol] 15 mmol/L Normal 9-18 [facility] Comment on above: Order Comment: Speci men Type: BLOOD SPECIMENOrdering Facility: [facility] Address: [address] [place] [address] Performed By: #### 2 4323-8 ####[facility] LABCLIA [id number] [place] [id number] [place] AST [Catalytic activity/Vol] 18 U/L Normal 13-35 [facility] Comment on above: Order Comment: Speci men Type: BLOOD SPECIMENOrdering Facility: [facility] Address: [address] [place], [place] [address] Performed By: #### 2 4323-8 ####[facility] LABCLIA [id number] [place] [address] [place] Bilirubin [Mass/Vol] 0.9 mg/dL Normal 0.2-1.3 [facility] Comment on above: Order Comment: Speci men Type: BLOOD SPECIMENOrdering Facility: [facility] Address: [address] [place] [address] Performed By: #### 2 4323-8 ####[facility] LABCLIA [id number] [place] [address] [place] Calcium [Mass/Vol] 9.7 mg/dL Normal 8.5-10.2 [facility] Comment on above: Order Comment: Speci men Type: BLOOD SPECIMENOrdering Facility: [facility] Address: [address] [place] [address] Performed By: #### 2 4323-8 ####[facility] LABCLIA [id number] [place] [address] [place] Chloride [Moles/Vol] 105 mmol/L Normal 97-105 [facility] Comment on above: Order Comment: Speci men Type: BLOOD SPECIMENOrdering Facility: [facility] Address: [address] [place] [address] Performed By: #### 2 4323-8 ####[facility] LABCLIA [id number] [place] [address] [place] CO2 [Moles/Vol] 27 mmol/L Normal 22-30 [facility] Comment on above: Order Comment: Speci men Type: BLOOD SPECIMENOrdering Facility: [facility] Address: [address] [place], [place] [address] Performed By: #### 2 4323-8 ####[facility] LABCLIA [id number] [place] [address] [place] Creatinine [Mass/Vol] 0.76 mg/dL Normal 0.58-0.96 [facility] Comment on above: Order Comment: Speci men Type: BLOOD SPECIMENOrdering Facility: [facility] Address: [address] [place] [address] Performed By: #### 2 4323-8 ####[facility] LABIA [id number] [place] [address] [place] Creatinine and Glomerular filtration rate.predicted panel (S/P/Bld) 107 mL/min/1.73m??? Normal >=60 [facility] Comment on above: Order Comment: Peter myles Type: BLOOD SPECIMENOrdering Facility: [facility] Address: [address] [place] [address] Result Comment: Rachel mated Glomerular Filtration Rate [...] actual GFR. Performed By: #### 2 4323-8 ####[facility] LABIA [id number] [place] [address] [place] Glucose [Mass/Vol] 77 mg/dL Normal 74-99 [facility] Comment on above: Order Comment: Peter shar Type: BLOOD SPECIMENOrdering Facility: [facility] Address: [address] [place] [address] Result Comment: The [place] [employer] Association (ADA) provides guidance for cutoff values for fasting glucose and random glucose. The ADA defines fasting as no caloric intake for at least 8 hours. Fasting plasma glucose results between 100 to 125 mg/dL indicate increased risk for diabetes (prediabetes).Fasting plasma glucose results greater than or equal to 126 mg/dL meet the criteria for diagnosis of diabetes. In the absence of unequivocal hyperglycemia, results should be confirmed by repeat testing. In a patient with classic symptoms of hyperglycemia or hyperglycemic crisis, random plasma glucose results greater than or equal to 200 mg/dL meet the criteria for diagnosis of diabetes.Reference: Standards of Medical Care in Diabetes 2016, [place] [employer]. Diabetes Care. 2016.39(Suppl 1). Performed By: #### 2 4323-8 ####[facility] LABCLIA [id number] [place] [address] [place] Potassium [Moles/Vol] 2.4 mmol/L Critically low 3.7-5.1 [facility] Comment on above: Order Comment: Speci men Type: BLOOD SPECIMENOrdering Facility: [facility] Address: [address] [place] [address] Performed By: #### 2 4323-8 ####[facility] LABCLIA [id number] [place] [address] [place] Protein [Mass/Vol] 6.8 g/dL Normal 6.3-8.0 [facility] Comment on above: Order Comment: Speci men Type: BLOOD SPECIMENOrdering Facility: [facility] Address: [address] [place] [address] Performed By: #### 2 4323-8 ####[facility] LABCLIA [id number] [place] [address] [place] Sodium [Moles/Vol] 147 mmol/L High 136-144 [facility] Comment on above: Order Comment: Speci men Type: BLOOD SPECIMENOrdering Facility: [facility] Address: [address] [place] [address] Performed By: #### 2 4323-8 ####[facility] LABCLIA [id number] [place] [address] [place] Urea nitrogen [Mass/Vol] 19 mg/dL Normal 7-21 [facility] Comment on above: Order Comment: Speci men Type: BLOOD SPECIMENOrdering Facility: [facility] Address: [address] [place] [address] Performed By: #### 2 4323-8 ####[facility] LABCLIA [id number] [place] [id number] [place] [id number] 12-06-2023 ECG01 Normal [facility] HISTORY PHYSICALon HISTORY PHYSICAL Normal [facility] CNPNon 11-19-2023 CNPN Normal [facility] Basic metabolic 2000 panelon 11-15-2023 Anion gap [Moles/Vol] 12 mmol/L Normal 9-18 [facility] Comment on above: Order Comment: Speci men Type: BLOOD SPECIMENOrdering Facility: [facility] Address: [address] [place] [address] Performed By: #### 2 4321-2 ####[facility] LABCLIA [id number] [place] [address] Calcium [Mass/Vol] 10.1 mg/dL Normal 8.5-10.2 [facility] Comment on above: Order Comment: Speci men Type: BLOOD SPECIMENOrdering Facility: [facility] Address: [address] [place] [address] Performed By: #### 2 4321-2 ####[facility] LABCLIA [id number] [place] [address] Chloride [Moles/Vol] 105 mmol/L Normal 97-105 [facility] Comment on above: Order Comment: Speci men Type: BLOOD SPECIMENOrdering Facility: [facility] Address: [address] [place] [address] Performed By: #### 2 4321-2 ####[facility] LABCLIA [id number] [place] [address] CO2 [Moles/Vol] 29 mmol/L Normal 22-30 [facility] Comment on above: Order Comment: Speci men Type: BLOOD SPECIMENOrdering Facility: [facility] Address: [address] [place] [address] Performed By: #### 2 4321-2 ####[facility] LABCLIA [id number] [place] [address] Creatinine [Mass/Vol] 0.84 mg/dL Normal 0.58-0.96 [facility] Comment on above: Order Comment: Peter myles Type: BLOOD SPECIMENOrdering Facility: [facility] Address: [address] [place] [id number] Performed By: #### 2 4321-2 ####[facility] LABCLIA [id number] [place] [address] Creatinine and Glomerular filtration rate.predicted panel (S/P/Bld) 95 mL/min/1.73m??? Normal >=60 [facility] Comment on above: Order Comment: Speccollins men Type: BLOOD SPECIMENOrdering Facility: [facility] Address: [address] [place] [place] [address] Result Comment: Rachel mated Glomerular Filtration Rate [...] actual GFR. Performed By: #### 2 4321-2 ####[facility] LABCLIA [id number] [place] [address] Glucose [Mass/Vol] 76 mg/dL Normal 74-99 [facility] Comment on above: Order Comment: Peter myles Type: BLOOD SPECIMENOrdering Facility: [facility] Address: [address] [place] [address] Result Comment: The [place] [employer] (ADA) provides guidance for cutoff values for fasting glucose and random glucose. The ADA defines fasting as no caloric intake for at least 8 hours. Fasting plasma glucose results between 100 to 125 mg/dL indicate increased risk for diabetes (prediabetes).Fasting plasma glucose results greater than or equal to 126 mg/dL meet the criteria for diagnosis of diabetes. In the absence of unequivocal hyperglycemia, results should be confirmed by repeat testing. In a patient with classic symptoms of hyperglycemia or hyperglycemic crisis, random plasma glucose results greater than or equal to 200 mg/dL meet the criteria for diagnosis of diabetes.Reference: Standards of Medical Care in Diabetes 2016, [place] [employer]. Diabetes Care. 2016.39(Suppl 1). Performed By: #### 2 4321-2 ####[facility] LABCLIA [id number] [place] [address] Potassium [Moles/Vol] 2.4 mmol/L Critically low 3.7-5.1 [facility] Comment on above: Order Comment: Speci men Type: BLOOD SPECIMENOrdering Facility: [facility] Address: [address] [place] [address] Performed By: #### 2 4321-2 ####[facility] LABCLIA [id number] [place] [address] Sodium [Moles/Vol] 146 mmol/L High 136-144 [facility] Comment on above: Order Comment: Speci men Type: BLOOD SPECIMENOrdering Facility: [facility] Address: [address] [place] [address] Performed By: #### 2 4321-2 ####[facility] LABCLIA [id number] [place] [address] Urea nitrogen [Mass/Vol] 9 mg/dL Normal 7-21 [facility] Comment on above: Order Comment: Speci men Type: BLOOD SPECIMENOrdering Facility: [facility] Address: [address] [place] [address] Performed By: #### 2 4321-2 ####[facility] LABCLIA [id number] [place] [address] CNPNon 11-15-2023 CNPN Normal [facility] Basic metabolic 2000 panelon 11-14-2023 Anion gap [Moles/Vol] 12 mmol/L 9 - 18 mmol/L [facility] Calcium [Mass/Vol] 9.6 mg/dL 8.5 - 10. 2 mg/dL [facility] Chloride [Moles/Vol] 106 mmol/L High 97 - 10 5 mmol/L [facility] CO2 [Moles/Vol] 29 mmol/L 22 - 30 mmol/L [facility] Creatinine [Mass/Vol] 0.66 mg/dL 0.58 - 0.96 mg/dL [facility] Estimated Glomerular Filtration Rate 120 mL/min/1.73m >=60 mL/min/1.7 3m [facility] Glucose [Mass/Vol] 97 mg/dL 74 - 99 mg/dL [facility] Potassium [Moles/Vol] 2.3 mmol/L Critically low 3.7 - 5.1 mmol/L [facility] Sodium [Moles/Vol] 147 mmol/L High 136 - 144 mmol/L [facility] Urea nitrogen [Mass/Vol] 7 mg/dL 7 - 21 mg/dL [facility] Anion gap [Moles/Vol] 12 mmol/L Normal 9-18 [facility] Comment on above: Order Comment: Speci men Type: BLOOD SPECIMENOrdering Facility: [facility] Address: [address] [place] [address] Performed By: #### 2 4321-2 ####[facility] LABCLIA [id number] [place] [address] [place] Calcium [Mass/Vol] 9.6 mg/dL Normal 8.5-10.2 [facility] Comment on above: Order Comment: Speci men Type: BLOOD SPECIMENOrdering Facility: [facility] Address: [address] [place], [place] [id number] Performed By: #### 2 4321-2 ####[facility] LABCLIA [id number] [place] [address] [place] Chloride [Moles/Vol] 106 mmol/L High 97-105 [facility] Comment on above: Order Comment: Speci men Type: BLOOD SPECIMENOrdering Facility: [facility] Address: [address] [place] [address] Performed By: #### 2 4321-2 ####[facility] LABCLIA [id number] [place] [address] [place] CO2 [Moles/Vol] 29 mmol/L Normal 22-30 [facility] Comment on above: Order Comment: Speci men Type: BLOOD SPECIMENOrdering Facility: [facility] Address: [address] [place] [address] Performed By: #### 2 4321-2 ####[facility] LABIA [id number] [place] [address] [place] Creatinine [Mass/Vol] 0.66 mg/dL Normal 0.58-0.96 [facility] Comment on above: Order Comment: Speci men Type: BLOOD SPECIMENOrdering Facility: [facility] Address: [address] [place] [address] Performed By: #### 2 4321-2 ####[facility] LABIA [id number] [place] [address] [place] [facility] Creatinine and Glomerular filtration rate.predicted panel (S/P/Bld) 120 mL/min/1.73m??? Normal >=60 [facility] Comment on above: Order Comment: Speci men Type: BLOOD SPECIMENOrdering Facility: [facility] Address: [address] [place] [address] Result Comment: Rachel mated Glomerular Filtration Rate [...] actual GFR. Performed By: #### 2 4321-2 ####[facility] LABIA [id number] [place] [address] [place] Glucose [Mass/Vol] 97 mg/dL Normal 74-99 [facility] Comment on above: Order Comment: Speci men Type: BLOOD SPECIMENOrdering Facility: [facility] Address: [address] [place] [address] Result Comment: The [place] Diabetes [employer] (ADA) provides guidance for cutoff values for fasting glucose and random glucose. The ADA defines fasting as no caloric intake for at least 8 hours. Fasting plasma glucose results between 100 to 125 mg/dL indicate increased risk for diabetes (prediabetes).Fasting plasma glucose results greater than or equal to 126 mg/dL meet the criteria for diagnosis of diabetes. In the absence of unequivocal hyperglycemia, results should be confirmed by repeat testing. In a patient with classic symptoms of hyperglycemia or hyperglycemic crisis, random plasma glucose results greater than or equal to 200 mg/dL meet the criteria for diagnosis of diabetes.Reference: Standards of Medical Care in Diabetes 2016, [place] [employer]. Diabetes Care. 2016.39(Suppl 1). Performed By: #### 2 4321-2 ####[facility] LABIA [id number] [place] [address] [place] Potassium [Moles/Vol] 2.3 mmol/L Critically low 3.7-5.1 [facility] Comment on above: Order Comment: Peter myles Type: BLOOD SPECIMENOrdering Facility: [facility] Address: [address] [place] [address] Performed By: #### 2 4321-2 ####[facility] LABIA [id number] [place] [address] [place] Sodium [Moles/Vol] 147 mmol/L High 136-144 [facility] Comment on above: Order Comment: Peter myles Type: BLOOD SPECIMENOrdering Facility: [facility] Address: [address] [place] [address] Performed By: #### 2 4321-2 ####[facility] LABIA [id number] [place] [address] [place] Urea nitrogen [Mass/Vol] 7 mg/dL Normal 7-21 [facility] Comment on above: Order Comment: Joselyni shar Type: BLOOD SPECIMENOrdering Facility: [facility] Address: [address] [place] [address] Performed By: #### 2 4321-2 ####[facility] LABIA [id number] [place] [address] [place] CBC W Auto Differential pane l (Bld)on 11-14-2023 Basophils (Bld) [#/Vol] 0.04 10*3/uL <0.11 k/uL [facility] Basophils/100 WBC (Bld) 0.6 % C [facility] Differential cell count method Nom (Bld) Auto [facility] Eosinophils (Bld) [#/Vol] 0.10 10*3/uL <0.46 k/uL [facility] Eosinophils/100 WBC (Bld) 1.4 % [facility] Erythrocyte distribution width (RBC) [Ratio] 14.7 % 11.5 - 15.0 % [facility] Hematocrit (Bld) [Volume fraction] 43.9 % 36.0 - 46.0 % [facility] Hemoglobin (Bld) [Mass/Vol] 14.7 g/dL 11.5 - 15.5 g/dL [facility] Immature granulocytes (Bld) [#/Vol] <0.10 k/uL [facility] Immature granulocytes/100 WBC (Bld) 0.1 % [facility] Lymphocytes (Bld) [#/Vol] 1.93 10*3/uL 1.00 - 4.00 k/uL [facility] Lymphocytes/100 WBC (Bld) 27.7 % [facility] MCH (RBC) [Entitic mass] 28.5 pg 26.0 - 34.0 pg [facility] MCHC (RBC) [Mass/Vol] 33.5 g/dL 30.5 - 36.0 g/dL [facility] MCV (RBC) [Entitic vol] 85.2 fL 80.0 - 100.0 fL [facility] Monocytes (Bld) [#/Vol] 0.49 10*3/uL <0.87 k/uL [facility] Monocytes/100 WBC (Bld) 7.0 % C [facility] Neutrophils (Bld) [#/Vol] 4.40 10*3/uL 1.45 - 7.50 k/uL [facility] Neutrophils/100 WBC (Bld) 63.2 % [facility] Nucleated RBC (Bld) [#/Vol] <0.01 k/uL [facility] Nucleated RBC/100 WBC (Bld) [Ratio] 0.0 /100 WBC [facility] Platelet mean volume (Bld) [Entitic vol] 11.3 fL 9.0 - 12.7 fL [facility] Platelets (Bld) [#/Vol] 204 10*3/uL 150 - 400 k/uL [facility] RBC (Bld) [#/Vol] 5.15 10*6/uL 3.90 - 5.20 m/uL [facility] WBC (Bld) [#/Vol] 6.97 10*3/uL 3.70 - 11.00 k/uL [facility] Basophils (Bld) [#/Vol] 0.04 10*3/uL Normal <0.11 [facility] Comment on above: Order Comment: Speci men Type: BLOOD SPECIMENOrdering Facility: [facility] Address: [address] [place] [address] Performed By: #### 5 7021-8 ####[facility] LABCLIA [id number] [place] [address] Basophils/100 WBC (Bld) 0.6 % Normal C [facility] Comment on above: Order Comment: Speci men Type: BLOOD SPECIMENOrdering Facility: [facility] Address: [address] [place] [address] Performed By: #### 5 7021-8 ####[facility] LABCLIA [id number] [place] [address] Differential cell count method Nom (Bld) Auto Normal [facility] Comment on above: Order Comment: Speci men Type: BLOOD SPECIMENOrdering Facility: [facility] Address: [address] [place] [address] Performed By: #### 5 7021-8 ####[facility] LABCLIA [id number] [place] [address] Eosinophils (Bld) [#/Vol] 0.10 10*3/uL Normal <0.46 [facility] Comment on above: Order Comment: Speci men Type: BLOOD SPECIMENOrdering Facility: [facility] Address: [address] [place] [address] Performed By: #### 5 7021-8 ####[facility] LABCLIA [id number] [place] [address] Eosinophils/100 WBC (Bld) 1.4 % Normal [facility] Comment on above: Order Comment: Speci men Type: BLOOD SPECIMENOrdering Facility: [facility] Address: [address] [place] [address] Performed By: #### 5 7021-8 ####[facility] LABCLIA [id number] [place] [address] Erythrocyte distribution width (RBC) [Ratio] 14.7 % Normal 11.5-15.0 [facility] Comment on above: Order Comment: Speci men Type: BLOOD SPECIMENOrdering Facility: [facility] Address: [address] [place] [address] Performed By: #### 5 7021-8 ####[facility] LABCLIA [id number] [place] [address] Hematocrit (Bld) [Volume fraction] 43.9 % Normal 36.0-46.0 [facility] Comment on above: Order Comment: Speci men Type: BLOOD SPECIMENOrdering Facility: [facility] Address: [address] [place] [address] Performed By: #### 5 7021-8 ####[facility] LABCLIA [id number] [place] [address] Hemoglobin (Bld) [Mass/Vol] 14.7 g/dL Normal 11.5-15.5 [facility] Comment on above: Order Comment: Speci men Type: BLOOD SPECIMENOrdering Facility: [facility] Address: [address] [place] [address] Performed By: #### 5 7021-8 ####[facility] LABCLIA [id number] [place] [address] Immature granulocytes (Bld) [#/Vol] 10*3/uL Normal <0.10 [facility] Comment on above: Order Comment: Speci men Type: BLOOD SPECIMENOrdering Facility: [facility] Address: [address] [place] [address] Performed By: #### 5 7021-8 ####[facility] LABCLIA [id number] [place] [address] Immature granulocytes/100 WBC (Bld) 0.1 % Normal [facility] Comment on above: Order Comment: Speci men Type: BLOOD SPECIMENOrdering Facility: [facility] Address: [address] [place] [address] Performed By: #### 5 7021-8 ####[facility] LABCLIA [id number] [place] [address] Lymphocytes (Bld) [#/Vol] 1.93 10*3/uL Normal 1.00-4.00 [facility] Comment on above: Order Comment: Speci men Type: BLOOD SPECIMENOrdering Facility: [facility] Address: [address] [place] [address] Performed By: #### 5 7021-8 ####[facility] LABIA [id number] [place] [address] Lymphocytes/100 WBC (Bld) 27.7 % Normal [facility] Comment on above: Order Comment: Speci men Type: BLOOD SPECIMENOrdering Facility: [facility] Address: [address] [place] [address] Performed By: #### 5 7021-8 ####[facility] LABCLIA [id number] [place] [address] MCH (RBC) [Entitic mass] 28.5 pg Normal 26.0-34.0 [facility] Comment on above: Order Comment: Speci men Type: BLOOD SPECIMENOrdering Facility: [facility] Address: [address] [place] [address] Performed By: #### 5 7021-8 ####[facility] LABIA [id number] [place] [address] MCHC (RBC) [Mass/Vol] 33.5 g/dL Normal 30.5-36.0 [facility] Comment on above: Order Comment: Speci men Type: BLOOD SPECIMENOrdering Facility: [facility] Address: [address] [place] [address] Performed By: #### 5 7021-8 ####[facility] LABCLIA [id number] [place] [address] MCV (RBC) [Entitic vol] 85.2 fL Normal 80.0-100.0 C [facility] Comment on above: Order Comment: Speci men Type: BLOOD SPECIMENOrdering Facility: [facility] Address: [address] [place] [address] Performed By: #### 5 7021-8 ####[facility] LABCLIA [id number] [place] [address] Monocytes (Bld) [#/Vol] 0.49 10*3/uL Normal <0.87 [facility] Comment on above: Order Comment: Speci men Type: BLOOD SPECIMENOrdering Facility: [facility] Address: [address] [place] [address] Performed By: #### 5 7021-8 ####[facility] LABCLIA [id number] [place] [address] Monocytes/100 WBC (Bld) 7.0 % Normal C [facility] Comment on above: Order Comment: Speci men Type: BLOOD SPECIMENOrdering Facility: [facility] Address: [address] [place] [address] Performed By: #### 5 7021-8 ####[facility] LABCLIA [id number] [place] [address] Neutrophils (Bld) [#/Vol] 4.40 10*3/uL Normal 1.45-7.50 [facility] Comment on above: Order Comment: Speci men Type: BLOOD SPECIMENOrdering Facility: [facility] Address: [address] [place] [address] Performed By: #### 5 7021-8 ####[facility] LABCLIA [id number] [place] [address] Neutrophils/100 WBC (Bld) 63.2 % Normal [facility] Comment on above: Order Comment: Speci men Type: BLOOD SPECIMENOrdering Facility: [facility] Address: [address] [place] [address] Performed By: #### 5 7021-8 ####[facility] LABCLIA [id number] [place] [address] Nucleated RBC (Bld) [#/Vol] 10*3/uL Normal <0.01 [facility] Comment on above: Order Comment: Speci men Type: BLOOD SPECIMENOrdering Facility: [facility] Address: [address] [place] [address] Performed By: #### 5 7021-8 ####[facility] LABCLIA [id number] [place] [address] Nucleated RBC/100 WBC (Bld) [Ratio] 0.0 /100 WBC Normal [facility] Comment on above: Order Comment: Speci men Type: BLOOD SPECIMENOrdering Facility: [facility] Address: [address] [place] [address] Performed By: #### 5 7021-8 ####[facility] LABCLIA [id number] [place] [address] Platelet mean volume (Bld) [Entitic vol] 11.3 fL Normal 9.0-12.7 [facility] Comment on above: Order Comment: Speci men Type: BLOOD SPECIMENOrdering Facility: [facility] Address: [address] [place] [address] Performed By: #### 5 7021-8 ####[facility] LABCLIA [id number] [place] [address] Platelets (Bld) [#/Vol] 204 10*3/uL Normal 150-400 [facility] Comment on above: Order Comment: Speci men Type: BLOOD SPECIMENOrdering Facility: [facility] Address: [address] [place] [address] Performed By: #### 5 7021-8 ####[facility] LABCLIA [id number] [place] [address] RBC (Bld) [#/Vol] 5.15 10*6/uL Normal 3.90-5.20 [facility] Comment on above: Order Comment: Speci men Type: BLOOD SPECIMENOrdering Facility: [facility] Address: [address] [place] [address] Performed By: #### 5 7021-8 ####[facility] LABCLIA [id number] [place] [address] WBC (Bld) [#/Vol] 6.97 10*3/uL Normal 3.70-11.00 [facility] Comment on above: Order Comment: Speci men Type: BLOOD SPECIMENOrdering Facility: [facility] Address: [address] [place] [address] Performed By: #### 5 7021-8 ####[facility] LABCLIA [id number] [place] [address] CNPNon 11-14-2023 CNPN Normal [facility] CONFIRM BLOOD TYPEon 024 ABO B Normal [facility] Comment on above: Order Comment: Speci men Type: BLOOD SPECIMENOrdering Facility: [facility] Address: [address] [place] [address] Performed By: #### C ONABO ####[facility] BLO[facility] BANKCLIA [id number] [place] [address] [place] Rh Nom (Bld) Negative Normal [facility] Comment on above: Order Comment: Speci men Type: BLOOD SPECIMENOrdering Facility: [facility] Address: [address] [place] [address] Performed By: #### C ONABO ####[facility] MA[facility] BLOOD BANKCLIA [id number] [place] [address] [place] TYPE AND SCREEN,30 DAYon ABO B Normal [facility] Comment on above: Order Comment: Speci men Type: BLOOD SPECIMENOrdering Facility: [facility] Address: [address] [place] [address] Performed By: #### T SCR30 ####[facility] BLOOD BANKCLIA [id number] [place] [address] [place] HISTORICAL AB SCR STATUS Negative Normal [facility] Comment on above: Order Comment: Speci men Type: BLOOD SPECIMENOrdering Facility: [facility] Address: [address] [place] [address] Performed By: #### T SCR30 ####[facility] BLOOD BANKCLIA [id number] [place] [address] [place] Rh Nom (Bld) Negative Normal [facility] Comment on above: Order Comment: Speci men Type: BLOOD SPECIMENOrdering Facility: [facility] Address: [address] [place] [address] Performed By: #### T SCR30 ####[facility] BLOOD BANKCLIA [id number] [place] [address] [place] CNPNon 10-25-2023 CNPN Normal [facility] Aldost SerPl-mCncon 10-23-19 24 Aldosterone [Mass/Vol] 131.0 ng/dL High 0.0-<35.4 C [facility] Comment on above: Order Comment: Speci men Type: BLOOD SPECIMENOrdering Facility: [facility] Address: [address] [place] [address] Result Comment: The reference interval for serum/plasma aldosterone is based on a normal sodium intake and upright position. High sodium intake may suppress aldosterone and low sodium intake may increase aldosterone.The supine reference interval is <23.7 ng/dL.A ratio of aldosterone in ng/dL to direct renin in pg/mL greater than or equal to 3.8 is a positive screening test result for primary aldosteronism, when aldosterone is greater than or equal to 15 ng/dL. Performed By: #### 1 763-2 ####[facility] LABCLIA [id number] [place] [address] [place] Aldosterone [Mass/Vol] 7780.0 ng/dL High 0.0-<35.4 [facility] Comment on above: Order Comment: Peter myles Type: BLOOD SPECIMENOrdering Facility: [facility] Address: [address] [place] [address] Result Comment: The reference interval for serum/plasma aldosterone is based on a normal sodium intake and upright position. High sodium intake may suppress aldosterone and low sodium intake may increase aldosterone.The supine reference interval is <23.7 ng/dL.A ratio of aldosterone in ng/dL to direct renin in pg/mL greater than or equal to 3.8 is a positive screening test result for primary aldosteronism, when aldosterone is greater than or equal to 15 ng/dL. Performed By: #### 1 763-2 ####[facility] LABCLIA [id number] [place] [address] [place] Aldosterone [Mass/Vol] 5530.0 ng/dL High 0.0-<35.4 [facility] Comment on above: Order Comment: Peter myles Type: BLOOD SPECIMENOrdering Facility: [facility] Address: [address] [place] [address] Result Comment: The reference interval for serum/plasma aldosterone is based on a normal sodium intake and upright position. High sodium intake may suppress aldosterone and low sodium intake may increase aldosterone.The supine reference interval is <23.7 ng/dL.A ratio of aldosterone in ng/dL to direct renin in pg/mL greater than or equal to 3.8 is a positive screening test result for primary aldosteronism, when aldosterone is greater than or equal to 15 ng/dL. Performed By: #### 1 763-2 ####[facility] LABCLIA [id number] [place] [address] [place] Aldosterone [Mass/Vol] 6190.0 ng/dL High 0.0-<35.4 [facility] Comment on above: Order Comment: Peter myles Type: BLOOD SPECIMENOrdering Facility: [facility] Address: [address] [place] [address] Result Comment: The reference interval for serum/plasma aldosterone is based on a normal sodium intake and upright position. High sodium intake may suppress aldosterone and low sodium intake may increase aldosterone.The supine reference interval is <23.7 ng/dL.A ratio of aldosterone in ng/dL to direct renin in pg/mL greater than or equal to 3.8 is a positive screening test result for primary aldosteronism, when aldosterone is greater than or equal to 15 ng/dL. Performed By: #### 1 763-2 ####[facility] LABIA [id number] [place] [address] [place] Aldosterone [Mass/Vol] 173.0 ng/dL High 0.0-<35.4 [facility] [facility] Comment on above: Order Comment: Peter [facility] Type: BLOOD SPECIMENOrdering Facility: [facility] Address: [address] [place] [address] Result Comment: The reference interval for serum/plasma aldosterone is based on a normal sodium intake and upright position. High sodium intake may suppress aldosterone and low sodium intake may increase aldosterone.The supine reference interval is <23.7 ng/dL.A ratio of aldosterone in ng/dL to direct renin in pg/mL greater than or equal to 3.8 is a positive screening test result for primary aldosteronism, when aldosterone is greater than or equal to 15 ng/dL. Performed By: #### 1 763-2 ####[facility] LABCLIA [id number] [place] [address] [place] Aldosterone [Mass/Vol] 160.0 ng/dL High 0.0-<35.4 C [facility] Comment on above: Order Comment: Peter shar Type: BLOOD SPECIMENOrdering Facility: [facility] Address: [address] [place] [address] Result Comment: The reference interval for serum/plasma aldosterone is based on a normal sodium intake and upright position. High sodium intake may suppress aldosterone and low sodium intake may increase aldosterone.The supine reference interval is <23.7 ng/dL.A ratio of aldosterone in ng/dL to direct renin in pg/mL greater than or equal to 3.8 is a positive screening test result for primary aldosteronism, when aldosterone is greater than or equal to 15 ng/dL. Performed By: #### 1 763-2 ####[facility] LABCLIA [id number] [address] [place] Aldosterone [Mass/Vol] 166.0 ng/dL High 0.0-<35.4 C [facility] Comment on above: Order Comment: Speci men Type: BLOOD SPECIMENOrdering Facility: [facility] Address: [address] [place] [address] Result Comment: The reference interval for serum/plasma aldosterone is based on a normal sodium intake and upright position. High sodium intake may suppress aldosterone and low sodium intake may increase aldosterone.The supine reference interval is <23.7 ng/dL.A ratio of aldosterone in ng/dL to direct renin in pg/mL greater than or equal to 3.8 is a positive screening test result for primary aldosteronism, when aldosterone is greater than or equal to 15 ng/dL. Performed By: #### 1 763-2 ####[facility] LABCLIA [id number] [address] OF [facility] BRIEF OP NOTon 10-23-2023 BRIEF OP NOT Normal [facility] Cortis SerPl-mCncon 10-23-19 24 Cortisol [Mass/Vol] 17.4 ug/dL Normal 4.8-19.5 [facility] Comment on above: Order Comment: Speci men Type: BLOOD SPECIMENOrdering Facility: [facility] Address: [address] [place] [address] Result Comment: Prov ided reference range is from 6-10 AM sample collection time.Cortisol Reference Range: 6-10 AM = 4.8-19.5 ug/dL, 4-8 PM = 2.5-11.9 ug/dL Performed By: #### 2 143-6 ####[facility] LABCLIA [id number] [address] STATES OF [facility] Cortisol [Mass/Vol] 197.4 ug/dL High 4.8-19.5 [facility] Comment on above: Order Comment: Speci men Type: BLOOD SPECIMENOrdering Facility: [facility] Address: [address] [place] [address] Result Comment: Prov ided reference range is from 6-10 AM sample collection time.Cortisol Reference Range: 6-10 AM = 4.8-19.5 ug/dL, 4-8 PM = 2.5-11.9 ug/dL Performed By: #### 2 143-6 ####[facility] LABCLIA [id number] [address] STATES [place] [facility] Cortisol [Mass/Vol] 149.2 ug/dL High 4.8-19.5 [facility] Comment on above: Order Comment: Speci men Type: BLOOD SPECIMENOrdering Facility: [facility] Address: [address] [place] [address] Result Comment: Prov ided reference range is from 6-10 AM sample collection time.Cortisol Reference Range: 6-10 AM = 4.8-19.5 ug/dL, 4-8 PM = 2.5-11.9 ug/dL Performed By: #### 2 143-6 ####[facility] LABCLIA [id number] [address] STATES [place] [facility] Cortisol [Mass/Vol] 163.9 ug/dL High 4.8-19.5 [facility] Comment on above: Order Comment: Speci men Type: BLOOD SPECIMENOrdering Facility: [facility] Address: [address] [place] [address] Result Comment: Prov ided reference range is from 6-10 AM sample collection time.Cortisol Reference Range: 6-10 AM = 4.8-19.5 ug/dL, 4-8 PM = 2.5-11.9 ug/dL Performed By: #### 2 143-6 ####[facility] LABCLIA [id number] [address] STATES OF [facility] Cortisol [Mass/Vol] 152.5 ug/dL High 4.8-19.5 [facility] Comment on above: Order Comment: Speci men Type: BLOOD SPECIMENOrdering Facility: [facility] Address: [address] [place] [address] Result Comment: Prov ided reference range is from 6-10 AM sample collection time.Cortisol Reference Range: 6-10 AM = 4.8-19.5 ug/dL, 4-8 PM = 2.5-11.9 ug/dL Performed By: #### 2 143-6 ####[facility] LABCLIA [id number] [address] STATES [place] [facility] Cortisol [Mass/Vol] 150.7 ug/dL High 4.8-19.5 [facility] Comment on above: Order Comment: Speci men Type: BLOOD SPECIMENOrdering Facility: [facility] Address: [address] [place] [address] Result Comment: Prov ided reference range is from 6-10 AM sample collection time.Cortisol Reference Range: 6-10 AM = 4.8-19.5 ug/dL, 4-8 PM = 2.5-11.9 ug/dL Performed By: #### 2 143-6 ####[facility] LABCLIA [id number] [address] [place] Cortisol [Mass/Vol] 158.4 ug/dL High 4.8-19.5 [facility] Comment on above: Order Comment: Speci men Type: BLOOD SPECIMENOrdering Facility: [facility] Address: [address] [place] [address] Result Comment: Prov ided reference range is from 6-10 AM sample collection time.Cortisol Reference Range: 6-10 AM = 4.8-19.5 ug/dL, 4-8 PM = 2.5-11.9 ug/dL Performed By: #### 2 143-6 ####[facility] LABCLIA [id number] [place] [address] [place] HISTORY PHYSICALon H[facility] VENOUS SAMPLINGon 024 IR VENOUS SAMPLING Normal [facility] NURSING PROGon 10-23-2023 NURSING PROG Normal [facility] PT EDon 10-23-2023 PT ED Normal [facility] CBC W Auto Differential pane l (Bld)on 10-22-2023 Basophils (Bld) [#/Vol] 0.04 10*3/uL Normal <0.11 [facility] Comment on above: Order Comment: Speci men Type: BLOOD SPECIMENOrdering Facility: [facility] Address: [address] [place] [address] Performed By: #### 5 7021-8 ####[facility] LABCLIA [id number] [place] [address] Basophils/100 WBC (Bld) 0.5 % Normal C [facility] Comment on above: Order Comment: Speci men Type: BLOOD SPECIMENOrdering Facility: [facility] Address: [address] [place] [address] Performed By: #### 5 7021-8 ####[facility] LABCLIA [id number] [place] [address] Differential cell count method Nom (Bld) Auto Normal [facility] Comment on above: Order Comment: Speci men Type: BLOOD SPECIMENOrdering Facility: [facility] Address: [address] [place] [address] Performed By: #### 5 7021-8 ####[facility] LABCLIA [id number] [place] [address] Eosinophils (Bld) [#/Vol] 0.22 10*3/uL Normal <0.46 [facility] Comment on above: Order Comment: Speci men Type: BLOOD SPECIMENOrdering Facility: [facility] Address: [address] [place] [address] Performed By: #### 5 7021-8 ####[facility] LABCLIA [id number] [place] [address] Eosinophils/100 WBC (Bld) 2.9 % Normal [facility] Comment on above: Order Comment: Speci men Type: BLOOD SPECIMENOrdering Facility: [facility] Address: [address] [place] [address] Performed By: #### 5 7021-8 ####[facility] LABCLIA [id number] [place] [address] Erythrocyte distribution width (RBC) [Ratio] 15.1 % High 11.5-15.0 [facility] Comment on above: Order Comment: Speci men Type: BLOOD SPECIMENOrdering Facility: [facility] Address: [address] [place] [address] Performed By: #### 5 7021-8 ####[facility] LABCLIA [id number] [place] [address] Hematocrit (Bld) [Volume fraction] 41.0 % Normal 36.0-46.0 [facility] Comment on above: Order Comment: Speci men Type: BLOOD SPECIMENOrdering Facility: [facility] Address: [address] [place] [address] Performed By: #### 5 7021-8 ####[facility] LABCLIA [id number] [place] [address] Hemoglobin (Bld) [Mass/Vol] 13.4 g/dL Normal 11.5-15.5 [facility] Comment on above: Order Comment: Speci men Type: BLOOD SPECIMENOrdering Facility: [facility] Address: [address] [place] [address] Performed By: #### 5 7021-8 ####[facility] LABIA [id number] [place] [address] Immature granulocytes (Bld) [#/Vol] 10*3/uL Normal <0.10 [facility] Comment on above: Order Comment: Speci men Type: BLOOD SPECIMENOrdering Facility: [facility] Address: [address] [place] [address] Performed By: #### 5 7021-8 ####[facility] LABCLIA [id number] [place] [address] Immature granulocytes/100 WBC (Bld) 0.3 % Normal [facility] Comment on above: Order Comment: Speci men Type: BLOOD SPECIMENOrdering Facility: [facility] Address: [address] [place] [address] Performed By: #### 5 7021-8 ####[facility] LABCLIA [id number] [place] [address] Lymphocytes (Bld) [#/Vol] 2.51 10*3/uL Normal 1.00-4.00 [facility] Comment on above: Order Comment: Speci men Type: BLOOD SPECIMENOrdering Facility: [facility] Address: [address] [place] [address] Performed By: #### 5 7021-8 ####[facility] LABCLIA [id number] [place] [address] Lymphocytes/100 WBC (Bld) 33.2 % Normal [facility] Comment on above: Order Comment: Speci men Type: BLOOD SPECIMENOrdering Facility: [facility] Address: [address] [place] [address] Performed By: #### 5 7021-8 ####[facility] LABCLIA [id number] [place] [address] MCH (RBC) [Entitic mass] 28.9 pg Normal 26.0-34.0 [facility] Comment on above: Order Comment: Speci men Type: BLOOD SPECIMENOrdering Facility: [facility] Address: [address] [place] [address] Performed By: #### 5 7021-8 ####[facility] LABCLIA [id number] [place] [address] MCHC (RBC) [Mass/Vol] 32.7 g/dL Normal 30.5-36.0 [facility] Comment on above: Order Comment: Speci men Type: BLOOD SPECIMENOrdering Facility: [facility] Address: [address] [place] [address] Performed By: #### 5 7021-8 ####[facility] LABCLIA [id number] [place] [address] MCV (RBC) [Entitic vol] 88.4 fL Normal 80.0-100.0 C [facility] Comment on above: Order Comment: Speci men Type: BLOOD SPECIMENOrdering Facility: [facility] Address: [address] [place] [address] Performed By: #### 5 7021-8 ####[facility] LABCLIA [id number] [place] [address] Monocytes (Bld) [#/Vol] 0.51 10*3/uL Normal <0.87 [facility] Comment on above: Order Comment: Speci men Type: BLOOD SPECIMENOrdering Facility: [facility] Address: [address] [place] [address] Performed By: #### 5 7021-8 ####[facility] LABCLIA [id number] [place] [address] Monocytes/100 WBC (Bld) 6.7 % Normal C [facility] Comment on above: Order Comment: Speci men Type: BLOOD SPECIMENOrdering Facility: [facility] Address: [address] [place] [address] Performed By: #### 5 7021-8 ####[facility] LABCLIA [id number] [place] [address] Neutrophils (Bld) [#/Vol] 4.26 10*3/uL Normal 1.45-7.50 [facility] Comment on above: Order Comment: Speci men Type: BLOOD SPECIMENOrdering Facility: [facility] Address: [address] [place] [address] Performed By: #### 5 7021-8 ####[facility] LABCLIA [id number] [place] [address] Neutrophils/100 WBC (Bld) 56.4 % Normal [facility] Comment on above: Order Comment: Speci men Type: BLOOD SPECIMENOrdering Facility: [facility] Address: [address] [place] [address] Performed By: #### 5 7021-8 ####[facility] LABCLIA [id number] [place] [address] Nucleated RBC (Bld) [#/Vol] 10*3/uL Normal <0.01 [facility] Comment on above: Order Comment: Speci men Type: BLOOD SPECIMENOrdering Facility: [facility] Address: [address] [place] [address] Performed By: #### 5 7021-8 ####[facility] LABCLIA [id number] [place] [address] Nucleated RBC/100 WBC (Bld) [Ratio] 0.0 /100 WBC Normal [facility] Comment on above: Order Comment: Speci men Type: BLOOD SPECIMENOrdering Facility: [facility] Address: [address] [place] [address] Performed By: #### 5 7021-8 ####[facility] LABCLIA [id number] [place] [address] Platelet mean volume (Bld) [Entitic vol] 11.5 fL Normal 9.0-12.7 [facility] Comment on above: Order Comment: Speci men Type: BLOOD SPECIMENOrdering Facility: [facility] Address: [address] [place] [address] Performed By: #### 5 7021-8 ####[facility] LABCLIA [id number] [place] [address] Platelets (Bld) [#/Vol] 198 10*3/uL Normal 150-400 [facility] Comment on above: Order Comment: Speci men Type: BLOOD SPECIMENOrdering Facility: [facility] Address: [address] [place] [address] Performed By: #### 5 7021-8 ####[facility] LABIA [id number] [place] [address] RBC (Bld) [#/Vol] 4.64 10*6/uL Normal 3.90-5.20 [facility] Comment on above: Order Comment: Speci men Type: BLOOD SPECIMENOrdering Facility: [facility] Address: [address] [place] [address] Performed By: #### 5 7021-8 ####[facility] LABIA [id number] [place] [address] WBC (Bld) [#/Vol] 7.56 10*3/uL Normal 3.70-11.00 [facility] Comment on above: Order Comment: Speci men Type: BLOOD SPECIMENOrdering Facility: [facility] Address: [address] [place] [address] Performed By: #### 5 7021-8 ####[facility] LABIA [id number] [place] [address] Comprehensive metabolic 2000 panelon 10-22-2023 Albumin [Mass/Vol] 4.0 g/dL Normal 3.9-4.9 [facility] Comment on above: Order Comment: Speci men Type: BLOOD SPECIMENOrdering Facility: [facility] Address: [address] [place] [address] Performed By: #### 2 4323-8 ####[facility] LABIA [id number] [place] [address] ALP [Catalytic activity/Vol] 139 U/L High 34-123 [facility] Comment on above: Order Comment: Speci men Type: BLOOD SPECIMENOrdering Facility: [facility] Address: [address] [place] [address] Performed By: #### 2 4323-8 ####[facility] LABCLIA [id number] [place] [address] ALT [Catalytic activity/Vol] 10 U/L Normal 7-38 [facility] Comment on above: Order Comment: Speci men Type: BLOOD SPECIMENOrdering Facility: [facility] Address: [address] [place], [place] [address] Performed By: #### 2 4323-8 ####[facility] LABCLIA [id number] [place] [address] Anion gap [Moles/Vol] 3 mmol/L Low 9-18 [facility] Comment on above: Order Comment: Speci men Type: BLOOD SPECIMENOrdering Facility: [facility] Address: [address] [place] [address] Performed By: #### 2 4323-8 ####[facility] LABCLIA [id number] [place] [address] AST [Catalytic activity/Vol] 14 U/L Normal 13-35 [facility] Comment on above: Order Comment: Speci men Type: BLOOD SPECIMENOrdering Facility: [facility] Address: [address] [place] [address] Performed By: #### 2 4323-8 ####[facility] LABCLIA [id number] [place] [address] Bilirubin [Mass/Vol] 0.4 mg/dL Normal 0.2-1.3 [facility] Comment on above: Order Comment: Speci men Type: BLOOD SPECIMENOrdering Facility: [facility] Address: [address] [place] [address] Performed By: #### 2 4323-8 ####[facility] LABCLIA [id number] [place] [address] Calcium [Mass/Vol] 8.9 mg/dL Normal 8.5-10.2 [facility] Comment on above: Order Comment: Speci men Type: BLOOD SPECIMENOrdering Facility: [facility] Address: [address] [place] [address] Performed By: #### 2 4323-8 ####[facility] LABCLIA [id number] [place] [address] Chloride [Moles/Vol] 110 mmol/L High 97-105 [facility] Comment on above: Order Comment: Speci men Type: BLOOD SPECIMENOrdering Facility: [facility] Address: [address] [place] [address] Performed By: #### 2 4323-8 ####[facility] LABCLIA [id number] [place] [address] CO2 [Moles/Vol] 30 mmol/L Normal 22-30 [facility] Comment on above: Order Comment: Speci men Type: BLOOD SPECIMENOrdering Facility: [facility] Address: [address] [place] [address] Performed By: #### 2 4323-8 ####[facility] LABCLIA [id number] [place] [address] Creatinine [Mass/Vol] 0.80 mg/dL Normal 0.58-0.96 [facility] Comment on above: Order Comment: Speci men Type: BLOOD SPECIMENOrdering Facility: [facility] Address: [address] [place] [address] Performed By: #### 2 4323-8 ####[facility] LABCLIA [id number] [place] [address] Creatinine and Glomerular filtration rate.predicted panel (S/P/Bld) 101 mL/min/1.73m??? Normal >=60 [facility] Comment on above: Order Comment: Speci men Type: BLOOD SPECIMENOrdering Facility: [facility] Address: [address] [place] [address] Result Comment: Rachel mated Glomerular Filtration Rate [...] actual GFR. Performed By: #### 2 4323-8 ####[facility] LABCLIA [id number] [place] [address] Glucose [Mass/Vol] 87 mg/dL Normal 74-99 [facility] Comment on above: Order Comment: Speccollins men Type: BLOOD SPECIMENOrdering Facility: [facility] Address: [address] [place], [place] [address] Result Comment: The [place] [employer] (ADA) provides guidance for cutoff values for fasting glucose and random glucose. The ADA defines fasting as no caloric intake for at least 8 hours. Fasting plasma glucose results between 100 to 125 mg/dL indicate increased risk for diabetes (prediabetes).Fasting plasma glucose results greater than or equal to 126 mg/dL meet the criteria for diagnosis of diabetes. In the absence of unequivocal hyperglycemia, results should be confirmed by repeat testing. In a patient with classic symptoms of hyperglycemia or hyperglycemic crisis, random plasma glucose results greater than or equal to 200 mg/dL meet the criteria for diagnosis of diabetes.Reference: Standards of Medical Care in Diabetes 2016, [place] [employer]. Diabetes Care. 2016.39(Suppl 1). Performed By: #### 2 4323-8 ####[facility] LABCLIA [id number] [place] [address] Potassium [Moles/Vol] 2.8 mmol/L Low 3.7-5.1 [facility] Comment on above: Order Comment: Peter myles Type: BLOOD SPECIMENOrdering Facility: [facility] Address: [address] [place] [address] Performed By: #### 2 4323-8 ####[facility] LABCLIA [id number] [place] [address] Protein [Mass/Vol] 6.2 g/dL Low 6.3-8.0 [facility] Comment on above: Order Comment: Peter men Type: BLOOD SPECIMENOrdering Facility: [facility] Address: [address] [place] [address] Performed By: #### 2 4323-8 ####[facility] LABCLIA [id number] [place] [address] Sodium [Moles/Vol] 143 mmol/L Normal 136-144 [facility] Comment on above: Order Comment: Speci men Type: BLOOD SPECIMENOrdering Facility: [facility] Address: [address] [place] [address] Performed By: #### 2 4323-8 ####[facility] LABCLIA [id number] [place] [address] Urea nitrogen [Mass/Vol] 23 mg/dL High 7-21 [facility] Comment on above: Order Comment: Speci men Type: BLOOD SPECIMENOrdering Facility: [facility] Address: [address] [place] [address] Performed By: #### 2 4323-8 ####[facility] LABCLIA [id number] [place] [address] PT panel Coag (PPP)on 2023 INR Coag (PPP) [Relative time] 1.0 {INR} Normal 0.9-1.3 [facility] Comment on above: Order Comment: Speci men Type: BLOOD SPECIMENOrdering Facility: [facility] Address: [address] [place] [address] Result Comment: Trice min K Antagonist (VKA) Therapeutic Range: INR 2 to 3 (Target INR of 2.5)Note: For patients treated with VKA drugs, such as warfarin, the [place] [employer] 2012 Guideline recommends a therapeutic INR range of 2 to 3 (target INR of 2.5). This recommendation includes high-risk patients with antiphospholipid syndrome with previous arterial or venous thromboembolism, current-generation mechanical or bioprosthetic aortic heart valve replacement.Note: Patients with mechanical aortic valve replacement and additional risk factors for thromboembolic events (atrial fibrillation, previous thromboembolism, LV dysfunction, hypercoagulable conditions) or an older generation mechanical AVR (i.e., ball in-Cage) or any mechanical MVR should have a INR therapeutic range of 2.5 to 3.5 (target INR of 3).Gracie GH, et al. Chest 2012, 141:7S-47SNishimura RA, et al. [facility] 2017, 70: 252-289 Performed By: #### 3 4528-0 ####[facility] LABCLIA [id number] [place] [address] [place] PT Coag (PPP) [Time] 10.2 s Normal 9.7-13.0 [facility] Comment on above: Order Comment: Speci men Type: BLOOD SPECIMENOrdering Facility: [facility] Address: [address] [place] [address] Performed By: #### 3 4528-0 ####[facility] LABCLIA [id number] [place] [id number] [place] NURSING PROGon 10-17-2023 NURSING PROG Normal [facility] POTASSIUM BLDon 10-11-2023 Potassium [Moles/Vol] 2.6 mmol/L Low 3.7-5.1 [facility] Comment on above: Order Comment: Speci men Type: BLOOD SPECIMENOrdering Facility: [facility] Address: [address] [place] [address] Performed By: #### K 1 ####[facility] LABCLIA [id number] [place] [address] ALL POTASSIUMon 09-12-2023 Interpretation and review of laboratory results Abnormal [facility] Potassium [Moles/Vol] 2.7 mmol/L Critically low 3.5 - 5.1 mmol/L [facility] Comment on above: [facility] Aldost [facility]h Ur-mRateon 2023 Aldosterone (24H U) [Mass/Time] 63.6 ug/24hr High 3.0-<28.1 [facility] Comment on above: Order Comment: Speci men Type: URINE SPECIMENOrdering Facility: [facility] Address: [address] [place] [address] Performed By: #### 1 765-7 ####[facility] LABCLIA [id number] [address] LABCLIA [id number] [place] [address] CATECHOLAMINES FRACTIONATED, URINE FREEon 09-10-2023 CATECHOLAMINES INTERPRETATION See Note Normal [facility] Comment on above: Order Comment: Speci men Type: TIMED URINE SPECIMENOrdering Facility: [facility] Address: [address] [place] [address] Result Comment: TEST INFORMATION: Catecholamines Fractionated, Urine FreeSmaller increases in catecholamine concentrations (less than twotimes the upper limit) usually are the result of physiologicalstimuli, drugs, or improper specimen collection. Significantelevation of one or more catecholamines (three or more times theupper reference limit) is associated with an increased probabilityof a neuroendocrine tumor.Access complete set of age- and/or gender-specific referenceintervals for this test in the [facility] Test Directory([facility]i).This test was developed and its performance characteristicsdetermined by [facility]. It has not been cleared orapproved by the US Food and Drug Administration. This test wasperformed in a CLIA certified laboratory and is intended forclinical purposes. Performed By: #### U RCAT2 ####[facility] CAN[facility] CENTERIA [id number] [place] [address] CREATININE UR, PER 24H 1134 mg/d Normal 700-1600 Cl [facility] Comment on above: Order Comment: Speci men Type: TIMED URINE SPECIMENOrdering Facility: [facility] Address: [address] [place] [address] Result Comment: Perf ormed By: [facility] [address] [place], [place] [address]Lnrmvirttv Director: Adis Casillas MD, PhDCLIA Number: [id number] Performed By: #### U RCAT2 ####[facility] LABORATORIESIA [id number] [place] [address] Performed By: #### U FRCRT ####[facility] LABORATORIESCLIA [id number] [place] [address] CREATININE UR, PER VOLUME 54 mg/dL Normal [facility] Comment on above: Order Comment: Speci men Type: TIMED URINE SPECIMENOrdering Facility: [facility] Address: [address] [place] [address] Performed By: #### U RCAT2 ####[facility] [id number] [place] [address] Performed By: #### U FRCRT ####[facility]IESCLIA [id number] [place] [address] DOPAMINE, UR 24HR 422 ug/d Normal 71-485 [facility] Comment on above: Order Comment: Speci men Type: TIMED URINE SPECIMENOrdering Facility: [facility] Address: [address] [place] [address] Result Comment: REFE RENCE INTERVAL: Dopamine, Urine - ug/dAccess complete set of age- and/or gender-specific referenceintervals for this test in the [facility] Test Directory([facility]i). Performed By: #### U RCAT2 ####[facility]IA [id number] [place] [address] DOPAMINE, UR PER VOL 201 ug/L Normal [facility] Comment on above: Order Comment: Speci men Type: TIMED URINE SPECIMENOrdering Facility: [facility] Address: [address] [place] [address] Performed By: #### U RCAT2 ####[facility]IA [id number] [place] [address] DOPAMINE, UR RATIO TO MANAGER BUDGET 372 ug/g MANAGER BUDGET High 0-250 [facility] Comment on above: Order Comment: Speci men Type: TIMED URINE SPECIMENOrdering Facility: [facility] Address: [address] [place] [address] Performed By: #### U RCAT2 ####[facility]IESCLIA [id number] [place] [address] EPINEPHRINE, UR 24HR 4 ug/d Normal 1-14 [facility] Comment on above: Order Comment: Speci men Type: TIMED URINE SPECIMENOrdering Facility: [facility] Address: [address] [place] [address] Result Comment: REFE RENCE INTERVAL: Epinephrine, Urine - ug/dAccess complete set of age- and/or gender-specific referenceintervals for this test in the [facility] Test Directory([facility]da[facility]i). Performed By: #### U RCAT2 ####[facility]IES[facility]IA [id number] [place] [address] EPINEPHRINE, UR PER VOL 2 ug/L Normal [facility] Comment on above: Order Comment: Speci men Type: TIMED URINE SPECIMENOrdering Facility: [facility] Address: [address] [place] [address] Performed By: #### U RCAT2 ####[facility]IESCLIA [id number] [place] [address] EPINEPHRINE, UR RATIO TO MANAGER BUDGET 4 ug/g MANAGER BUDGET Normal 0-20 [facility] Comment on above: Order Comment: Speci men Type: TIMED URINE SPECIMENOrdering Facility: [facility] Address: [address] [place] [address] Performed By: #### U RCAT2 ####[facility]IESCLIA [id number] [place] [address] HOURS COLLECTED 24 hr Normal [facility] Comment on above: Order Comment: Speci men Type: TIMED URINE SPECIMENOrdering Facility: [facility] Address: [address] [place] [address] Result Comment: Per 24h calculations are provided to aid interpretation forcollections with a duration of 24 hours and an average daily urinevolume. For specimens with notable deviations in collection timeor volume, ratios of analytes to a corresponding urine creatinineconcentration may assist in result interpretation. Performed By: #### U RCAT2 ####[facility]CLIA [id number] [place] [address] Performed By: #### U FRCRT ####[facility]IESCLIA [id number] [place] [address] NOREPINEPHRINE, UR 24HR 21 ug/d Normal 14-120 C [facility] Comment on above: Order Comment: Speci men Type: TIMED URINE SPECIMENOrdering Facility: [facility] Address: [address] [place] [address] Result Comment: REFE RENCE INTERVAL: Norepinephrine, Urine - ug/dAccess complete set of age- and/or gender-specific referenceintervals for this test in the [facility] Test Directory([facility]i). Performed By: #### U RCAT2 ####[facility]IESCLIA [id number] [place] [address] NOREPINEPHRINE, UR PER VOL 10 ug/L Normal [facility] Comment on above: Order Comment: Speci men Type: TIMED URINE SPECIMENOrdering Facility: [facility] Address: [address] [place] [address] Performed By: #### U RCAT2 ####[facility]IESCLIA [id number] [place] [address] NOREPINEPHRINE, UR RATIO TO MANAGER BUDGET 19 ug/g MANAGER BUDGET Normal 0-45 [facility] Comment on above: Order Comment: Speci men Type: TIMED URINE SPECIMENOrdering Facility: [facility] Address: [address] [place] [address] Performed By: #### U RCAT2 ####[facility]IES[facility]IA [id number] [place] [address] TOTAL VOLUME 2100 mL Normal [facility] Comment on above: Order Comment: Speci men Type: TIMED URINE SPECIMENOrdering Facility: [facility] Address: [address] [place] [address] Performed By: #### U RCAT2 ####[facility]IESCLIA [id number] [place] [address] Performed By: #### U FRCRT ####[facility]IESCLIA [id number] [place] [address] CREATININE BLDon 09-10-2023 Creatinine [Mass/Vol] 0.90 mg/dL Normal 0.58-0.96 [facility] Comment on above: Order Comment: Speci men Type: BLOOD SPECIMENOrdering Facility: [facility] Address: [address] [place] [address] Performed By: #### C RET1 ####[facility] LABCLIA [id number] [place] [address] Creatinine and Glomerular filtration rate.predicted panel (S/P/Bld) 87 mL/min/1.73m??? Normal >=60 [facility] Comment on above: Order Comment: Speci men Type: BLOOD SPECIMENOrdering Facility: [facility] Address: [address] [place] [address] Result Comment: Rachel mated Glomerular Filtration Rate [...] actual GFR. Performed By: #### C RET1 ####[facility] LABCLIA [id number] [place] [address] CREATININE CLEARANCE, UR 24H Diaz 09-10-2023 Creatinine (24H U) [Mass/Time] 1.100 g/24 hr Normal 0.800-1.80 0 [facility] Comment on above: Order Comment: Speci men Type: URINE SPECIMENOrdering Facility: [facility] Address: [address] [place] [address] Performed By: #### L [id number] ####[facility] LABCLIA [id number] [address] LABCLIA [id number] [place] [address] Creatinine renal clearance (24H U+S/P) [Vol/Time] 65.9 mL/min Low 75.0-115.0 [facility] Comment on above: Order Comment: Speci men Type: URINE SPECIMENOrdering Facility: [facility] Address: [address] [place] [address] Result Comment: Resu lt corrected for standard body surface area. Performed By: #### L [id number] ####[facility] LABCLIA [id number] [address] [address] [facility] LABCLIA [id number] [place] [address] PERIOD (HRS) 24 hr Normal [facility] Comment on above: Order Comment: Speci men Type: URINE SPECIMENOrdering Facility: [facility] Address: [address] [place] [address] Performed By: #### L [id number] ####[facility] LABCLIA [id number] [address] LABCLIA [id number] [place] [address] Performed By: #### 1 765-7 ####[facility] LABCLIA [id number] [address] LABCLIA [id number] [place] [address] Order Comment: Speci men Type: TIMED URINE SPECIMENOrdering Facility: [facility] Address: [address] [place] [address] Performed By: #### U METAN ####[facility] LABCLIA [id number] [address] LABCLIA [id number] [place] [address] Specimen volume (24H U) 2.1 L Normal C [facility] Comment on above: Order Comment: Speci men Type: URINE SPECIMENOrdering Facility: [facility] Address: [address] [place] [address] Performed By: #### L [id number] ####[facility] LABCLIA [id number] [place] [id number] [facility] LABCLIA [id number] [place] [address] Performed By: #### 1 765-7 ####[facility] LABCLIA [id number] [address] LABCLIA [id number] [place] [address] Order Comment: Speci men Type: TIMED URINE SPECIMENOrdering Facility: [facility] Address: [address] [place] [address] Performed By: #### U METAN ####[facility] LABIA [id number] [address] LABCLIA [id number] [place] [id number] METANEPHRINES 24H URon 09-10 Metanephrines (24H U) [Mass/Time] 246 ug/24 hr Normal 140-785 [facility] Comment on above: Order Comment: Speci men Type: TIMED URINE SPECIMENOrdering Facility: [facility] Address: [address] [place] [address] Result Comment: Test performed at [facility] reference range.Smaller increases in metanephrine and/or normetanephrine concentrations (less than two times the upper reference limit) usually are the result of physiological stimuli, drugs, or improper specimen collections. Essential hypertension is often associated with slight elevations (metanephrine less than 400 ug/d and normetanephrine less than 900 ug/d). Elevated concentrations may be due to intense physical activity, life-threatening illness, and drug interference.Significant elevation of one of both metanephrines (three or more times the upper reference limit) is associated with an increased probability of a neuroendocrine tumor.Access complete set of age- and/or gender-specific reference intervals for this test in the [facility] Test Directory ([facility]i).This test was developed and its performance characteristics determined by the [facility]. It has not been cleared or approved by the US Food and Drug Administration. This test was performed in a CLIA certified laboratory and is intended for clinical purposes. Performed By: #### U METAN ####[facility] LABCLIA [id number] [address] LABCLIA [id number] [place] [address] NORMETANEPHRINES, UR 141 ug/24 hr Normal 88-444 Cl [facility] Comment on above: Order Comment: Speci men Type: TIMED URINE SPECIMENOrdering Facility: [facility] Address: [address] [place] [address] Performed By: #### U METAN ####[facility] LABIA [id number] [address] LABCLIA [id number] [place] [address] URINE FREE CORTISOL BY LC-MS /MSon 09-10-2023 CORTISOL UG/G MANAGER BUDGET, UR (UFRCRT) 16.94 ug/g MANAGER BUDGET Normal [facility] Comment on above: Order Comment: Speci men Type: TIMED URINE SPECIMENOrdering Facility: [facility] Address: [address] [place] [address] Result Comment: Refe rence Interval: Cortisol ug/g crtFemalePrepubertal: Less than 25 ug/g crt18 years and older: Less than 24 ug/g crtPregnancy: Less than 59 ug/g crtMalePrepubertal: Less than 25 ug/g crt18 years and older: Less than 32 ug/g looseleaf binder coverer Performed By: #### U FRCRT ####[facility] HitmeisterCLIA [id number] [place] [address] FREE CORTISOL UG/DAY, URINE 19.2 ug/d Normal <=45.0 [facility] Comment on above: Order Comment: Speci men Type: TIMED URINE SPECIMENOrdering Facility: [facility] Address: [address] [place] [address] Performed By: #### U FRCRT ####[facility]IESCLIA [id number] [place] [address] FREE CORTISOL UG/L, URINE 9.15 ug/L Normal [facility] Comment on above: Order Comment: Speci men Type: TIMED URINE SPECIMENOrdering Facility: [facility] Address: [address] [place] [address] Performed By: #### U FRCRT ####[facility] [id number] [place] [address] UR MER FREE INTERP See Note Normal [facility] Comment on above: Order Comment: Speci men Type: TIMED URINE SPECIMENOrdering Facility: [facility] Address: [address] [place] [address] Result Comment: INTE RPRETIVE INFORMATION: Cortisol Urine Free by LC-MS/MSAccess complete set of age- and/or gender-specific referenceintervals for this test in the [facility] Test Directory(Edaixi).This test was developed and its performance characteristicsdetermined by [facility]. It has not been cleared orapproved by the US Food and Drug Administration. This test wasperformed in a CLIA certified laboratory and is intended forclinical purposes.Performed By: [facility] [place], [place] [address]Acapzxlnrf Director: Adis Casillas MD, PhDCLIA Number: [id number] Performed By: #### U FRCRT ####[facility] LABORATORIESIA [id number] [place] [address] [facility] CORTIS P DEX SERPL-MCNCo n 09-06-2023 [facility] CORTIS P DEX SERPL-MCNC 0.9 ug/dL [facility] - 1.8 ug/dL [facility] Comment on above: After overnight 1 mg dexamethasone, an mason liner cortisol of <1.8 ug/dL may indicate an adequate cortisol suppression. This result should be interpreted within the clinical context and other test results. Samra et al. Evidence for the Low Dose Dexamethasone Suppression Test to Screen for Mohit's Syndrome - Recommendations for a Protocol for Biochemistry Laboratories. 1997 [facility]. Clin. Biochem. 34 222-229. Specimen Type: BLOOD SPECIMEN [facility] Address: [address] [place] [address] Original Ordering Provider: VIKKI BALDERRAMA [facility] CNPNon 09-06-2023 CNPN Normal [facility] Cortis p Dex SerPl-mCncon Cortisol post dose dexamethasone [Mass/Vol] 0.9 ug/dL Normal <1.8 [facility] Comment on above: Order Comment: Peter myles Type: BLOOD SPECIMENOrdering Facility: [facility] Address: [address] [place] [address] Result Comment: Afte r overnight 1 mg dexamethasone, an mason liner cortisol of <1.8 ug/dL may indicate an adequate cortisol suppression. This result should be interpreted within the clinical context and other test results.Samra et al. Evidence for the Low Dose Dexamethasone Suppression Test to Screen for Hunter's Syndrome - Recommendations for a Protocol for Biochemistry Laboratories. 1997 [employer]bil. Clin. Biochem. 34 222-229. Performed By: #### 4 7851-1 ####[facility] LABCLIA [id number] [address] [place] DEXAMETHASONEon 09-06-2023 DEXAMETHASONE 236.1 ng/dL Normal [facility] Comment on above: Order Comment: Peter myles Type: BLOOD SPECIMENOrdering Facility: [facility] Address: [address] [place] [address] Result Comment: INTE RPRETIVE INFORMATION: Dexamethasone, Serum or Plasma by LC-MS/MSAdults baseline: Less than 50 ng/dL8:00 AM draw following 1 mg dexamethasone between 11:00 pm and12:00 am the previous evenin - 295 ng/dL8:00 AM draw following 8 mg dexamethasone (4 x 2 mg doses) abgkcma32:00 pm and 12:00 am the previous evenin - 2850 ng/dLThis test was developed and its performance characteristicsdetermined by [facility]. It has not been cleared orapproved by the US Food and Drug Administration. This test wasperformed in a CLIA certified laboratory and is intended forclinical purposes.Performed By: [facility] [place] [address]Ozzxtwdvff Director: Adis Casillas MD, PhDCLIA Number: [id number] Performed By: #### D EXA ####[facility] [id number] [place] [address] CNPNon 09-05-2023 CNPN Normal [facility] CNPNon 09-04-2023 CNPN Normal [facility] US renal doppleron US renal doppler [facility] [place] [address] Ultrasound Report Signed Patient: Heidi Joy MR#: [id number] : 1990 Acct:[id number] Age/Sex: 33 / F ADM Date: 08/30/23 Loc: Room: Type: [facility] Attending Dr: Zara Ralph MD Ordering Provider: Zara Ralph MD Date of Service: 08/30/23 US/US renal doppler: E87.6, E87.3, I10. E27.9 Copies to: Zara Ralph MD Renal artery duplex examination performed using B-mode, color flow and spectral Doppler assessment. (CPT: 70131) INDICATION: Hypertension FINDINGS: Aorta: PSV 94.9 cm/s [...] Efrem Jo MD08/31/2023 3:55 PM Dictation Location: [facility] Tech: Hermelinda Alonso Transcribed By: KATHLEEN 08/31/23 155 Dictated By: Efrem Jo MD 08/31/231553 Signed By: 08/31/23 155 Normal [facility] ACTH Plas-mCncon 08-30-2023 Corticotropin (P) [Mass/Vol] 22.2 pg/mL Normal 7.2-63.3 [facility] Comment on above: Order Comment: Speci men Type: BLOOD SPECIMENOrdering Facility: [facility] Address: [address] [place] [address] Result Comment: ACTH Reference Range: 7-10 am: 7.2 - 63.3 pg/mL Performed By: #### 2 141-0 ####[facility] LABCLIA [id number] [address] Aldost SerPl-ncon 08-30-19 Aldosterone [Mass/Vol] 79.8 ng/dL High 0.0-<35.4 [facility] Comment on above: Order Comment: Speci men Type: BLOOD SPECIMENOrdering Facility: [facility] Address: [address] [place] [address] Result Comment: The reference interval for serum/plasma aldosterone is based on a normal sodium intake and upright position. High sodium intake may suppress aldosterone and low sodium intake may increase aldosterone.The supine reference interval is <23.7 ng/dL.A ratio of aldosterone in ng/dL to direct renin in pg/mL greater than or equal to 3.8 is a positive screening test result for primary aldosteronism, when aldosterone is greater than or equal to 15 ng/dL. Performed By: #### R ENIND ####[facility] LABCLIA [id number] [address] LABCLIA [id number] [place] [address]#### 1763-2 ####[facility] LABCLIA [id number] [address] [place] Comprehensive metabolic 2000 panelon 08-30-2023 Albumin [Mass/Vol] 4.2 g/dL Normal 3.9-4.9 [facility] Comment on above: Order Comment: Speci men Type: BLOOD SPECIMENOrdering Facility: [facility] Address: [address] [place] [address] Performed By: #### 2 4323-8 ####[facility] LABCLIA [id number] [place] [address] ALP [Catalytic activity/Vol] 127 U/L High 34-123 [facility] Comment on above: Order Comment: Speci men Type: BLOOD SPECIMENOrdering Facility: [facility] Address: [address] [place] [address] Performed By: #### 2 4323-8 ####[facility] LABCLIA [id number] [place] [address] ALT [Catalytic activity/Vol] 16 U/L Normal 7-38 [facility] Comment on above: Order Comment: Speci men Type: BLOOD SPECIMENOrdering Facility: [facility] Address: [address] [place] [address] Performed By: #### 2 4323-8 ####[facility] LABCLIA [id number] [place] [address] Anion gap [Moles/Vol] 10 mmol/L Normal 9-18 [facility] Comment on above: Order Comment: Speci men Type: BLOOD SPECIMENOrdering Facility: [facility] Address: [address] [place] [address] Performed By: #### 2 4323-8 ####[facility] LABCLIA [id number] [place] [address] AST [Catalytic activity/Vol] 14 U/L Normal 13-35 [facility] Comment on above: Order Comment: Speci men Type: BLOOD SPECIMENOrdering Facility: [facility] Address: [address] [place] [address] Performed By: #### 2 4323-8 ####[facility] LABCLIA [id number] [place] [address] Bilirubin [Mass/Vol] 1.2 mg/dL Normal 0.2-1.3 [facility] Comment on above: Order Comment: Speci men Type: BLOOD SPECIMENOrdering Facility: [facility] Address: [address] [place] [address] Performed By: #### 2 4323-8 ####[facility] LABCLIA [id number] [place] [address] Calcium [Mass/Vol] 9.4 mg/dL Normal 8.5-10.2 [facility] Comment on above: Order Comment: Speci men Type: BLOOD SPECIMENOrdering Facility: [facility] Address: [address] [place] [address] Performed By: #### 2 4323-8 ####[facility] LABCLIA [id number] [place] [address] Chloride [Moles/Vol] 109 mmol/L High 97-105 [facility] Comment on above: Order Comment: Speci men Type: BLOOD SPECIMENOrdering Facility: [facility] Address: [address] [place] [address] Performed By: #### 2 4323-8 ####[facility] LABCLIA [id number] [place] [address] CO2 [Moles/Vol] 27 mmol/L Normal 22-30 [facility] Comment on above: Order Comment: Speci men Type: BLOOD SPECIMENOrdering Facility: [facility] Address: [address] [place] [address] Performed By: #### 2 4323-8 ####[facility] LABCLIA [id number] [place] [address] Creatinine [Mass/Vol] 0.66 mg/dL Normal 0.58-0.96 [facility] Comment on above: Order Comment: Speci men Type: BLOOD SPECIMENOrdering Facility: [facility] Address: [address] [place], [place] [address] Performed By: #### 2 4323-8 ####[facility] LABCLIA [id number] [place] [address] Creatinine and Glomerular filtration rate.predicted panel (S/P/Bld) 120 mL/min/1.73m??? Normal >=60 [facility] Comment on above: Order Comment: Speci men Type: BLOOD SPECIMENOrdering Facility: [facility] Address: [address] [place] [address] Result Comment: Rachel mated Glomerular Filtration Rate [...] actual GFR. Performed By: #### 2 4323-8 ####[facility] LABCLIA [id number] [place] [address] Glucose [Mass/Vol] 91 mg/dL Normal 74-99 [facility] Comment on above: Order Comment: Peter myles Type: BLOOD SPECIMENOrdering Facility: [facility] Address: [address] [place] [address] Result Comment: The [place] [employer] (ADA) provides guidance for cutoff values for fasting glucose and random glucose. The ADA defines fasting as no caloric intake for at least 8 hours. Fasting plasma glucose results between 100 to 125 mg/dL indicate increased risk for diabetes (prediabetes).Fasting plasma glucose results greater than or equal to 126 mg/dL meet the criteria for diagnosis of diabetes. In the absence of unequivocal hyperglycemia, results should be confirmed by repeat testing. In a patient with classic symptoms of hyperglycemia or hyperglycemic crisis, random plasma glucose results greater than or equal to 200 mg/dL meet the criteria for diagnosis of diabetes.Reference: Standards of Medical Care in Diabetes 2016, [place] [employer]. Diabetes Care. 2016.39(Suppl 1). Performed By: #### 2 4323-8 ####[facility] LABCLIA [id number] [place] [address] Potassium [Moles/Vol] 2.8 mmol/L Low 3.7-5.1 [facility] Comment on above: Order Comment: Speci men Type: BLOOD SPECIMENOrdering Facility: [facility] Address: [address] [place] [address] Performed By: #### 2 4323-8 ####[facility] LABCLIA [id number] [place] [address] Protein [Mass/Vol] 6.7 g/dL Normal 6.3-8.0 [facility] Comment on above: Order Comment: Speci men Type: BLOOD SPECIMENOrdering Facility: [facility] Address: [address] [place] [address] Performed By: #### 2 4323-8 ####[facility] LABCLIA [id number] [place] [address] Sodium [Moles/Vol] 146 mmol/L High 136-144 [facility] Comment on above: Order Comment: Speci men Type: BLOOD SPECIMENOrdering Facility: [facility] Address: [address] [place] [address] Performed By: #### 2 4323-8 ####[facility] LABCLIA [id number] [place] [address] Urea nitrogen [Mass/Vol] 12 mg/dL Normal 7-21 [facility] Comment on above: Order Comment: Speci men Type: BLOOD SPECIMENOrdering Facility: [facility] Address: [address] [place] [address] Performed By: #### 2 4323-8 ####[facility] LABCLIA [id number] [place] [address] Tamie Fritz 08-30-19 24 Cortisol [Mass/Vol] 9.5 ug/dL Normal 4.8-19.5 [facility] Comment on above: Order Comment: Speci men Type: BLOOD SPECIMENOrdering Facility: [facility] Address: [address] [place] [address] Result Comment: Prov ided reference range is from 6-10 AM sample collection time.Cortisol Reference Range: 6-10 AM = 4.8-19.5 ug/dL, 4-8 PM = 2.5-11.9 ug/dL Performed By: #### Jael NAVARRO 2143-01 ####[facility] LABCLIA [id number] [place] [address] [place] DHEA-S BLDon 08-30-2023 DHEA-S [Mass/Vol] 188.1 ug/dL Normal 98.8-340.0 [facility] Comment on above: Order Comment: Joselyni men Type: BLOOD SPECIMENOrdering Facility: [facility] Address: [address] [place] [address] Result Comment: Refe rence ranges are age and gender specific. For additional information, reference range tables can be found in the laboratory test directory.The normal values are based on the following source: Dehydroepiandrosterone sulfate (DHEA S) [package insert V 17.0 Kyrgyz]. [facility], [place], [place]: March 2013. Performed By: #### Jael NAVARRO, 2143-01 ####[facility] LABCLIA [id number] [place] [address] [place] DIRECT RENIN PLASMAon 2023 DIRECT RENIN <2.1 Low 4.2-52.2 [facility] Comment on above: Order Comment: Speci men Type: BLOOD SPECIMENOrdering Facility: [facility] Address: [address] [place] [address] Result Comment: A ra yue of aldosterone in ng/dL to direct renin in pg/mL greater than or equal to 3.8 is a positive screening test result for primary aldosteronism, when aldosterone is greater than or equal to 15 ng/dL.The reference interval for direct renin is based on an upright position.The supine reference intervals are:Age <41 years: 3.2-33.2 pg/mLAge >=41 years: 2.5-45.1 pg/mL Performed By: #### R ENIND ####[facility] LABCLIA [id number] [address] LABCLIA [id number] [place] [address]#### 1763-2 ####[facility] LABCLIA [id number] [place] [address] [place] PATIENT UPRIGHT OR SUPINE Upright Normal [facility] Comment on above: Order Comment: Speci men Type: BLOOD SPECIMENOrdering Facility: [facility] Address: [address] [place] [address] Performed By: #### R ENIND ####[facility] LABCLIA [id number] [address] LABCLIA [id number] [place] [address]#### 1763-2 ####[facility] LABCLIA [id number] [place] [address] [place] METANEPHRINES, FREE PLASMAon 08-30-2023 METANEPHRINE, PLASMA 28 pg/mL Normal 12-67 [facility] Comment on above: Order Comment: Speci men Type: BLOOD SPECIMENOrdering Facility: [facility] Address: [address] [place] [address] Result Comment: Refe rence Ranges:Hypertensive adult > or = 18 yrs old: 12-72 pg/mLNormotensive adult > or = 18 yrs old: 12-67 pg/mLNormotensive children < 18 yrs old: 10-95 pg/mL Performed By: #### P METAN ####[facility] LABCLIA [id number] [place] [address] [place] NORMETANEPHRINE, PLASMA 84 pg/mL Normal 18-101 [facility] Comment on above: Order Comment: Speci men Type: BLOOD SPECIMENOrdering Facility: [facility] Address: [address] [place] [address] Result Comment: Refe rence Ranges:Hypertensive adult > or = 18 yrs old: 24-145 pg/mLNormotensive adult > or = 18 yrs old: 18-101 pg/mLNormotensive children < 18 yrs old: 22-83 pg/mLMethyldopa may cause false elevation of normetanephrine levels in this assay. If patient is on methyldopa, interpret results with caution. Performed By: #### P METAN ####[facility] LABCLIA [id number] 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 When there are no FDA-approved or cleared tests available, and other criteria are met, FDA can make tests available under an emergency access mechanism called an Emergency Use Authorization (EUA). The EUA for this test is supported by the [place] of Health and Human Service's (HHS's) declaration [...] SARS-CoV-2. Performed By: #### C VDTBH #### [facility] [address] [place] [address] Dr. Maylin Ch Follow-Upon 11-05-2022 Follow-Up [id number] Janine Jyo 1990 F Date Provider Department Center 11/05/2022 RAVINDRA BUCKLEY DCC ONC DCC Family History Problem Relation Age of Onset Diabetes Mother Thyroid cancer Mother Diabetes Father Hypertension Father Family Status - Relation Status Age at Mother Father Level of Service:85153 UT OFFICE/OUTPATIENT ESTABLISHED MOD MDM 30-39 MIN Normal [facility] DRUG SCREEN RAPID (URINE)on 10-23-2022 AMP Negative Normal NEGATIVE [facility] Comment on above: Performed By: #### D RUGRPD #### [facility] [address] [place] [address] Dr. Maylin Ch BAR Negative Normal NEGATIVE [facility] Comment on above: Performed By: #### D RUGRPD #### [facility] [address] [place] [address] Dr. Maylin Ch BUP Negative Normal NEGATIVE [facility] Comment on above: Performed By: #### D RUGRPD #### [facility] [address] [place] [address] Dr. Maylin Ch BZO Negative Normal NEGATIVE [facility] Comment on above: Performed By: #### D RUGRPD #### [facility] [address] [place] [address] Dr. Maylin Ch DRE Negative Normal NEGATIVE [facility] Comment on above: Performed By: #### D RUGRPD #### [facility] [address] [place] [address] Dr. Maylin Ch CUT-OFFS SEE BELOW Normal [facility] Comment on above: Result Comment: AMP [...] ng/mL Performed By: #### D RUGRPD #### [facility] [address] [place] [address] Dr. Maylin Ch DRUG CUT HEADER DRUG CLASS TEST SYST EM CUT-OFF CONCENTRATIONS ARE FOLLOWS: Normal [facility] Comment on above: Performed By: #### D RUGRPD #### [facility] [address] [place] [address] Dr. Myalin Ch mAMP Negative Normal NEGATIVE [facility] Comment on above: Performed By: #### D RUGRPD #### [facility] [address] [place] [address] Dr. Maylin Ch MTD Negative Normal NEGATIVE [facility] Comment on above: Performed By: #### D RUGRPD #### [facility] [address] [place] [address] Dr. Maylin Ch OPI Negative Normal NEGATIVE [facility] Comment on above: Performed By: #### D RUGRPD #### [facility] [address] [place] [address] Dr. Maylin Ch OXY Negative Normal NEGATIVE [facility] Comment on above: Performed By: #### D RUGRPD #### [facility] [address] [place] [address] Dr. Maylin Ch PCP Negative Normal NEGATIVE [facility] Comment on above: Performed By: #### D RUGRPD #### [facility] [address] [place] [address] Dr. Maylin Ch PPX Negative Normal NEGATIVE [facility] Comment on above: Performed By: #### D RUGRPD #### [facility] [address] [place] [address] Dr. Maylin Ch TCA Negative Normal NEGATIVE [facility] Comment on above: Performed By: #### D RUGRPD #### [facility] [address] [place], [place] [address] Dr. Maylin Ch THC Negative Normal NEGATIVE [facility] Comment on above: Performed By: #### D RUGRPD #### [facility] [address] [place], [place] [address] Dr. Maylin Ch MR BRAIN W AND [...] of ventriculomegaly. Electronically signed: Frank Lara. Normal [facility] Serum or plasma potassium me asurement (moles/volume)Ordered By: Manasa Rhodes on 09-13-2022 Potassium [Moles/Vol] 3.3 mmol/L 3.5-5.1 [facility] Office Visiton 09-10-2022 Follow-up visit [id number] Janine Joy 1990 F Date Provider Department Center 09/10/2022 RAVINDRA BUCKLEY DCC ONC DCC Family History Problem Relation Age of Onset Diabetes Mother Thyroid cancer Mother Diabetes Father Hypertension Father Family Status - Relation Status Age at Mother Father Level of Service:91507 UT OFFICE/OUTPATIENT ESTABLISHED MOD MDM 30-39 MIN Reason for Visit and Comments: Consult [484] - Past patient, coming back today to have imaging reordered. Normal [facility] Orders Onlyon 09-10-2022 Orders Only [id number] Janine Joy 1990 F Date Provider Department Center 09/10/2022 MONICA DOMINGUEZ ONC [facility] Family History Problem Relation Age of Onset Diabetes Mother Thyroid cancer Mother Diabetes Father Hypertension Father Family Status - Relation Status Age at Mother Father Normal [facility] MAGNESIUMon 09-07-2022 Magnesium [Mass/Vol] 1.9 mg/dL Normal 1.8-2.4 [facility] Comment on above: Performed By: #### M G, PHOS, BMP #### [facility] [address] [place] [address] Dr. Maylin Ch PHOSPHORUSon 09-07-2022 Phosphate [Mass/Vol] 3.7 mg/dL Normal 2.6-4.7 [facility] Comment on above: Performed By: #### M G, PHOS, BMP #### [facility] [address] [place] [address] [address] Maylin Ch PROF CHEM 8 (BAS METB)on Anion gap [Moles/Vol] 14.3 mmol/L Normal [facility] Comment on above: Performed By: #### M G, PHOS, BMP #### [facility] [address] [place] [address] [address] Maylin Ch Calcium [Mass/Vol] 9.3 mg/dL Normal 8.5-10.1 [facility] Comment on above: Performed By: #### M G, PHOS, BMP #### [facility] [address] [place] [address] Dr. Maylin Ch Chloride [Moles/Vol] 105 mmol/L Normal 98-107 [facility] Comment on above: Performed By: #### YAMILET Lopez BMP #### [facility] [address] [place] [address] [address] Maylin Ch CO2 [Moles/Vol] 31.0 mmol/L Normal 21.0-32.0 [facility] Comment on above: Performed By: #### YAMILET Lopez BMP #### [facility] [address] [place] [address] [address] Maylin Ch Creatinine [Mass/Vol] 0.90 mg/dL Normal 0.55-1.02 [facility] Comment on above: Performed By: #### YAMILET Lopez BMP #### [facility] [address] [place] [address] Dr. Maylin Ch EGFR-AF COMORAN >60 Normal >=60 [facility] Comment on above: Performed By: #### YAMILET Lopez BMP #### [facility] [address] [place] [address] Dr. Maylin Ch EGFR-NON AF COMORAN >60 Normal >=60 [facility] Comment on above: Performed By: #### YAMILET Lopez BMP #### [facility] [address] [place] [address] [address] Maylin Ch Glucose [Mass/Vol] 158 mg/dL Critically high 74-106 [facility] Comment on above: Performed By: #### YAMILET Lopez BMP #### [facility] [address] [address] [address] Maylin Ch Potassium [Moles/Vol] 2.3 mmol/L Critically low 3.5-5.1 [facility] Comment on above: Performed By: #### YAMILET Lopez BMP #### [facility] [address] [place] [address] [address] Maylin Ch Sodium [Moles/Vol] 147 mmol/L Critically high 136-145 [facility] Comment on above: Performed By: #### YAMILET Lopez BMP #### [facility] [address] [place], [place] [address] Dr. Maylin Ch Urea nitrogen [Mass/Vol] 7.0 mg/dL Normal 7.0-18.0 [facility] Comment on above: Performed By: #### M YAMILET Yun BMP #### [facility] [address] [place], [place] [address] Dr. Maylin Ch Urea nitrogen/Creatinine [Mass ratio] 7.8 mg/mg Normal [facility] Comment on above: Performed By: #### M YAMILET Yun BMP #### [facility] [address] [place], [place] [address] Dr. Maylin Ch Serum or plasma potassium me asurement (moles/volume)Ordered By: NON STAFF on 09-07-2022 Potassium [Moles/Vol] 2.4 mmol/L 3.5-5.1 [facility] Comment on above: Results calledat 080 7 [...] seen for a consultation for. DEDE Benson, [facility] Bariatrics- Bariatric sx History of [...] Vital Signs Recorded: 06Jun2022 04:17PMRecorded: 06Jun2022 03:45PM [id number], LUE, Sitting [id number], LUE, Sitting Heart Rate71, Apical Height5 ft 7 in Keepqg404 lb BMI Cwtbuqnihj66.77 kg/m2 BSA Calculated2.42 Tobacco Useb) No PHQ-2 [...] to auscul (more content not included)... Normal [employer] Tobacco Screening.on 022 Adult depression screening assessment No [facility] [employer] 250 DO Work Phone: Tobacco use status CPHS b) No M [facility] [employer] pati 250 DO Work Phone: DHEA SERUMon 01-12-2022 Dehydroepiandrosterone (DHEA) 287 ng/dL Normal 31-701 [facility] Comment on above: Result Comment: Age [...] 701 Performed By: #### D STAR. #### [facility] [address] [place] [address] Dr. Maylin Ch TESTOSTERONE, FREE,DIRECT, T OTALon 01-06-2022 Free Testosterone(Direct) 1.6 pg/mL Normal 0.0-4.2 [facility] Comment on above: Result Comment: Perf ormed at: BN Performed By: #### T ESTFRD #### [facility] [address] [place] [address] Dr. Maylin Ch Testosterone [Mass/Vol] 17 ng/dL Normal 13-71 [facility] Comment on above: Result Comment: Perf ormed at: CB Performed By: #### T ESTD #### [facility] [address] [place] [address] Dr. Maylin Ch INSULINon 01-05-2022 Insulin 13.2 uIU/mL Normal 2.6-24.9 [facility] Comment on above: Performed By: #### I NSULIN #### [facility] [address] [place] [address] Dr. Maylin Ch GLYCOHEMOGLOBIN A1Con 2021 ADA RECOMMENDATION SEE BELOW Normal [facility] Comment on above: Result Comment: ADA RECOMMENDED LIMIT 4.0 - 6.0 ADA THERAPEUTIC TARGET < 7.0 ACTION SUGGESTED > 7.0 Performed By: #### A 1C #### [facility] [address] [place] [address] Dr. Maylin Ch Glucose [Mass/Vol] 146 mg/dL Normal [facility] Comment on above: Performed By: #### A 1C #### [facility] [address] [place] [address] Dr. Maylin Ch HbA1c (Bld) [Mass fraction] 6.7 % Critically high 4.5-6.2 [facility] Comment on above: Performed By: #### A 1C #### [facility] [address] [place] [address] Dr. Maylin Ch TSHon 01-04-2022 TSH 3.214 uIU/mL Normal 0.358-3.74 0 [facility] Comment on above: Performed By: #### T SH #### [facility] [address] [address] [address] Maylin Ch TSH RANGE SEE BELOW Normal [facility] Comment on above: Result Comment: <0.3 4 UIU/ml HYPERTHYROID 0.34-5.60 UIU/ml EUTHYROID >5.60 UIU/ml HYPOTHYROID Performed By: #### T SH #### [facility] [address] [address] [address] Maylin Ch Potassiumon 10-05-2021 Potassium [Moles/Vol] 3.3 mmol/L Low 3.5-5.[address] [facility] Specialist Comment on above: Performed By: #### K #### [facility] [address] [place], [place] [id number] Basic Metabolic Panelon 08-06 Anion gap [Moles/Vol] 21 mmol/L High 12-20 [facility] [employer] Inspector Comment on above: Result Comment: Effe ctive 08/10/2019 reference range changed. Performed By: #### B MP #### [facility] [address] [place], [place] [id number] Calcium [Mass/Vol] 9.3 mg/dL Normal 8.6-10.2 [facility] Specialist Comment on above: Performed By: #### B MP #### [facility] [address] [place], [place] [id number] Chloride [Moles/Vol] 106 mmol/L Normal 98-107 [facility] Specialist Comment on above: Performed By: #### B MP #### [facility] [address] [facility] [place] [id number] CO2 [Moles/Vol] 20 mmol/L Normal 20-31 [facility] Specialist Comment on above: Performed By: #### B MP #### [facility] [address] [facility] [id number] Creatinine [Mass/Vol] 0.7 mg/dL Normal 0.6-1.[address] [facility] Specialist Comment on above: Performed By: #### B MP #### [facility] [address] [facility] [id number] eGFRAA 115 mL/min/1.73m2 Normal >60 [facility] Comment on above: Performed By: #### B MP #### [facility] [address] [facility] [place] [id number] eGFRNAA 95 mL/min/1.73m2 Normal >60 [facility] Specialist Comment on above: Performed By: #### B MP #### [facility] [address] [place], [place] [id number] Glucose [Mass/Vol] 184 mg/dL High 65-99 Sydnie crespo [facility] [employer] Inspector Comment on above: Result Comment: For FASTING Glucose --- ADA reference ranges: Normal 65-99 mg/dl Prediabetes 100-125 Diabetes >/= 126 Performed By: #### B MP #### [facility] [address] [place], [place] [id number] Potassium [Moles/Vol] 2.8 mmol/L Critically low 3.5-5.5 [facility] Specialist Comment on above: Result Comment: Crit ical result called to Dr Rhodes/Rylee at 09/01/2021 11:58 AM by Cyndie Montanez) Performed By: #### B MP #### [facility] [address] [place], [place] [id number] Sodium [Moles/Vol] 144 mmol/L Normal 135-[address] [facility] [employer] Inspector Comment on above: Performed By: #### B MP #### [facility] [address] [place], [place] [id number] Urea nitrogen [Mass/Vol] 10 mg/dL Normal 7-25 [facility] Packing Machine Inspector Comment on above: Performed By: #### B MP #### [facility] [address] [place], [place] [id number] MRI BRAIN W WO CONTRASTon MRI BRAIN W WO CONTRAST [facility] Department of Radiology [address] [place] [phone] Patient Name: HEIDI JOY : 1990 Sex: F Age: Race: White Pt. Location: 29 Patient Status: O Ordered Date: 02/04/2020 2:05:00 PM Completed Date: 03/17/2020 10:13 AM Requesting Provider: GANGA RODRIGUES Attending Provider: GANGA RODRIGUES Report Copy To: IMMANUEL KUHN Signs & Symptoms: C71.9 Malignant neoplasm of brain, unspecified I10 History: Nita AMES AUTH [id number] VALID 03/04-04/03/2020 [id number] KW Comments: , 1p-19q co-deleted oligodendroglioma of [...] reports Electronically signed: Shawn Martins. Transcribed by: [email or web address], User Resident: JONATHAN JONES Electronically Signed by: SHAWN MARTINS @ 03/17/2020 12:45 PM I personally read this/these film(s) with this resident Normal [facility] Comment on above: Order Comment: [...] WO CONTRASTon MRI BRAIN W WO CONTRAST [facility] Department of Radiology [address] [place] [phone] Patient Name: HEIDI JOY : 1990 Sex: F Age: Race: White Pt. Location: 29 Patient Status: O Ordered Date: 03/20/2019 11:25:00 AM Completed Date: 09/11/2019 10:54 AM Requesting Provider: ALISA CH Attending Provider: ALISA CH Report Copy To: IMMANUEL KUHN Signs & Symptoms: C71.9 Malignant neoplasm of brain, unspecified I10 History: Nita ames auth # [id number] 08/28/2019-09/27/2019 cpt code 55009 *mla Comments: , 1p-19q co-deleted oligodendroglioma of [...] reports Electronically signed: Jim Curiel. Transcribed by: [email or web address], User Resident: DANDY HUFFMAN Electronically Signed by: JIM CURIEL @ 09/11/2019 04:35 PM I personally read this/these film(s) with this resident Normal [facility] Comment on above: Order Comment: [...] 01-29-2018 Coding Summary CODING DATE: 018 FINAL [facility] STATUS: Home PAYOR: Medicaid HMO ADMIT [...] Swanson' Date Saved: 01/29/2018 03:42 pm Normal [facility] ED Clinical Summaryon 2017 ED Clinical Summary [facility] ? Urgent [id number] [place] [id number] clinical SummaryPERSON INFORMATIONName: HEIDI JOY Age: 27 Years Sex: FEMALEDOB: [birth year] MRN: Acct#:Visit Reason: UC - Rash; UC - Rash; RASH/ BILAT LEGS Arrival: 01/23/18 10:43:00 Discharge: 01/23/18 11:18:00LOS: 000 00:35 Check In: 01/23/18 10:43:00 Checkout: 01/23/18 11:18:00Address:[facility] [address]AVF: Immanuel Kuhn INFORMATIONProvider Role Assigned UnassignedSpasic Carmelo ASHRAF ED PA 01/23/18 10:48:23Cristal Dunaway ED Nurse 01/23/18 10:53:41VITALS INFORMATIONVital Sign Triage LatestTemperature TympanicTemperature Temporal ArteryPulse Rate 79 bpm 79 bpmO2 Sat 97 % 97 %Respiratory Rate 16 br/min 16 br/minBlood Pressure 162 mmHg/98 mmHg 162 mmHg/98 mmHgMEDICAL INFORMATIONMedications Given:Allergy Information:No Known Medication AllergiesPHYSICIAN DOCUMENTATIONDISCHARGE INFORMATION:Discharge Disposition: HomeDischarge Location:PATIENT EDUCATION INFORMATIONInstructions: Poison [place] Dermatitis, Yoxc-ir-SsivYeifrc-Up:With : Address: When:[address]manuel [address] [place], [place] [id number] Business (1)Comments:Begin on the prednisone 2 tablets daily for 5 days take with food to avoid gastric refluxBegin on the Claritin 1 tab daily for the next 2 weeks Follow-up with primary care provider in 3-5 days sooner if worse.DIAGNOSIS:urushiol induced contact dermatitisPatient Understands: Yes - Patient/family/caregiver verbalizes understanding of instructions givenComment: [facility] 2017 ED Note - Physician Patient: HONORIO JYO : 27 years Sex: FEMALE : [birth year]Associated Diagnoses: urushiol induced contact dermatitisAuthor: Zo ASHRAF, AlegeorgesandarBparis InformationTime seen: Date & time 01/23/18 11:01:00.History source: Patient.Arrival mode: Private vehicle.History limitation: None.Additional information: Chief Complaint from Nursing Triage Note : Chief Buiedpdfr64/21/18 10:45 EDT Chief Complaint 2-3 days possible [...] been selected or recorded..Social history:Social & Psychosocial OjhpddZgqxvcn77/21/2018 Number used per day: 10.Problem list:Active Problems (1)Smoker.Physical Examination Vital TpcgrQbmnovasvper25/21/18 10:45 EDT Height 170.18 cm Weight 122.47 [...] was given the following educational materials: Poison [place] Dermatitis, Qfkh-wn-Xsvj.Follow up with: Immanuel Kuhn Begin on the [...] on: 01/23/2018 11:28 EDT] [place] [facility] ED Patient Summaryon 018 ED Patient Summary [facility] ? Urgent [address] [place] [address] pATIENT DISCHARGE INSTRUCTIONSPatient InformationName: HEIDI JOY Age: 27 YearsDate of : [birth year]MRN: [id number] For Visit: UC - Rash; UC - Rash; RASH/ BILAT LEGSArrival Time: 01/23/18 10:43:00Phone: [facility]: Immanuel Kuhn Physician: Kailash Lakeomment:Patient EducationWith: Address: When:Immanuel Kuhn [address] [place] [address]., [address] [place] [address] Business (1)Comments:Begin on the prednisone 2 tablets daily for 5 days take with food to avoid gastric refluxBegin on the Claritin 1 tab daily for the next 2 weeks Follow-up with primary care provider in 3-5 days sooner if worse.Poison Fremont DermatitisPoison oak dermatitis is redness and soreness [...] instructions at home:General instructions? Take or apply qnjk-ylb-vtyvbaz and prescription medicines only as told by [...] Reviewed: 12/28/2015[employer] Patient Education ? 2018 [employer]Medication Information:The exam and treatment you received today in the [facility] were for an urgent problem and are not intended as complete care. It is important for you to follow up with a doctor, nurse practitioner, or physician?s assistant hall director for ongoing care. If your symptoms become [...] number so we can reach you if necessary.[facility] has provided you with a complete list of medications post discharge. Please inform your production sound mixer/provider of your visit and for further instruction [...] InformationVisit Diagnosis:Diagnoses This Visit UC - Rash ([id number]) UC - Rash ([id number]) urushiol induced contact dermatitisIf you received any [...] Weight: 122.47 kg Body Mass Index: 42.29 kg/t3Yisfbrcq List:Problem Onset CommentsSmokerMajor Tests and Procedures:The following [...] Disease Control and Prevention April 2014 Normal [facility] Urgent Care [place] 018 Urgent Care Record [facility] ? Urgent [id number] [place] [id number] pATIENT DISCHARGE INSTRUCTIONSPatient InformationName: HEIDI JOY Age: 27 YearsDate of : [birth year]MRN: [id number] For Visit: UC - Rash; UC - Rash; RASH/ BILAT LEGSArrival Time: 01/23/18 10:43:00Phone: Primary Care Physician: Immanuel Kuhn Physician: Wai LakeandarComment:Visit Diagnosis:Diagnoses This Visit UC - Rash ([id number]) UC - Rash ([id number]) urushiol induced contact dermatitisIf you received any [...] sign any legal documentsWith: Address: When:Immanuel Bolivar [address] [place] [address] Business (1)Comments:Begin on the prednisone 2 tablets daily for 5 days take with food to avoid gastric refluxBegin on the Claritin 1 tab daily for the next 2 weeks Follow-up with primary care provider in 3-5 days sooner if worse.Medication Information:The exam and treatment you received today in the [facility] were for an urgent problem and are not intended as complete care. It is important for you to follow up with a doctor, nurse practitioner, or physician?s assistant hall director for ongoing care. If your symptoms become [...] number so we can reach you if necessary.[facility] has provided you with a complete list of medications post discharge. 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 Take or apply rwzb-gzm-mrkjwtt and prescription medicines only as told by [...] Reviewed: 12/28/2015[employer]ingsley[employer] Patient Education ? 2018 [employer]. Viruses or BacteriaWhat?s got you sick?Antibiotics only [...] Disease Control and Prevention April 2014 Normal [facility] Vital Signs Date Time Vital Sign Value Performing Clinician Jill rudd 05-07-2024 08:34-0400 Body height 167.6 cm Eliot García DO Work Phone: [facility] 05-07-2024 08:34-0400 Body mass index (BMI) [Ratio] 28.08 kg/m2 Eliot García DO Work Phone: [facility] 05-07-2024 08:34-0400 Body temperature 97.9 [degF] Eliot Gouldsboro DO Work Phone: [facility] 05-07-2024 08:34-0400 Body weight 78.93 kg Eliot Gouldsboro DO Work Phone: [facility] 05-07-2024 08:34-0400 Diastolic blood pressure 68 mm[Hg] Eliot Gouldsboro DO Work Phone: [facility] 05-07-2024 08:34-0400 Heart rate 68 /min Eliot Gouldsboro DO Work Phone: [facility] 05-07-2024 08:34-0400 SaO2% (BldA) [Mass fraction] 100 % Eliot Gouldsboro DO Work Phone: [facility] 05-07-2024 08:34-0400 Systolic blood pressure 120 mm[Hg] Eliot Gouldsboro DO Work Phone: [facility] 05-04-2024 08:50-0400 Blood Pressure Location Calderon Sarmini [facility] 05-04-2024 08:50-0400 Diastolic blood pressure 80 mm[Hg] Calderon Sarmini [facility] 05-04-2024 08:50-0400 Heart rate 73 /min Calderon Sarmini [facility] 05-04-2024 08:50-0400 Systolic blood pressure 117 mm[Hg] Calderon Sarmini [facility] 03-19-2024 13:53-0400 Blood Pressure Location Calderon Sarmini [facility] 03-19-2024 13:53-0400 Diastolic blood pressure 88 mm[Hg] Calderon Sarmini [facility] 03-19-2024 13:53-0400 Heart rate 86 /min Calderon Leannmini [facility] 03-19-2024 13:53-0400 Respiratory rate 16 /min Calderon Sarmini [facility] 03-19-2024 13:53-0400 Systolic blood pressure 132 mm[Hg] Calderon Sarmini [facility] 02-21-2024 11:39-0400 Diastolic blood pressure 79 mm[Hg] DO Immanuel Kuhn Work Phone: [facility] 02-21-2024 11:39-0400 Heart rate 64 /min DO Immanuel Kuhn Work Phone: [facility] 02-21-2024 11:39-0400 Respiratory rate 16 /min DO Immanuel Kuhn Work Phone: [facility] 02-21-2024 11:39-0400 SaO2% (BldA) [Mass fraction] 100 % DO Immanuel Kuhn Work Phone: [facility] 02-21-2024 11:39-0400 Systolic blood pressure 130 mm[Hg] DO Immanuel Kuhn Work Phone: [facility] 02-21-2024 08:48-0400 Body height 170.18 cm DO Immanuel Kuhn Work Phone: [facility] 02-21-2024 08:48-0400 Body temperature 98.3 [degF] DO Immanuel Kuhn Work Phone: [facility] 02-21-2024 08:48-0400 Body weight 81 kg DO Immanuel Kuhn Work Phone: [facility] 02-12-2024 09:20-0400 Body height 170.2 cm Vikki Balderrama MD Work Phone: [facility] 02-12-2024 09:20-0400 Body mass index (BMI) [Ratio] 26.52 kg/m2 Vikki Balderrama MD Work Phone: [facility] 02-12-2024 09:20-0400 Body weight 76.8 kg Vikki Balderrama MD Work Phone: [facility] 02-12-2024 09:20-0400 Diastolic blood pressure 81 mm[Hg] Vikki Balderrama MD Work Phone: [facility] 02-12-2024 09:20-0400 Heart rate 76 /min Vikki Balderrama MD Work Phone: [facility] 02-12-2024 09:20-0400 SaO2% (BldA) [Mass fraction] 98 % Vikki Balderrama MD Work Phone: [facility] 02-12-2024 09:20-0400 Systolic blood pressure 120 mm[Hg] Vikki Balderrama MD Work Phone: [facility] 02-04-2024 11:26-0400 Body mass index (BMI) [Ratio] 27.74 kg/m2 Manuel Alfaro MD Work Phone: [facility] 02-04-2024 11:26-0400 Body weight 80.33 kg Manuel Alfaro MD Work Phone: [facility] 02-04-2024 11:26-0400 SaO2% (BldA) [Mass fraction] 100 % Manuel Alfaro MD Work Phone: [facility] 01-28-2024 16:10-0400 SaO2% (BldA) [Mass fraction] 99 % IMMANUEL KUHN [facility] Comment on above: Order Comment: Specimen Type: ARTERIAL B LOOD SPECIMENOrdering Facility: [facility] Address: [address] [place] [address] [place] [address] Performed By: #### A LL ####[facility] LABCLIA [id number] [address] [place] 01-20-2024 09:02-0400 Body height 170.2 cm [facility] 01-20-2024 09:02-0400 Body mass index (BMI) [Ratio] 27.41 kg/m2 [facility] 01-20-2024 09:02-0400 Body weight 79.38 kg [facility] 12-11-2023 10:13-0400 Body mass index (BMI) [Ratio] 28.35 kg/m2 Manuel Alfaro MD Work Phone: [facility] 12-11-2023 10:13-0400 Body weight 82.1 kg Manuel Alfaro MD Work Phone: [facility] 12-11-2023 10:13-0400 SaO2% (BldA) [Mass fraction] 98 % Manuel Alfaro MD Work Phone: [facility] 12-06-2023 09:08-0400 Body height 170.2 cm Pac 2 Work Phone: [facility] 12-06-2023 09:08-0400 Body mass index (BMI) [Ratio] 28.66 kg/m2 Pac 2 Work Phone: [facility] 12-06-2023 09:08-0400 Body temperature 98.1 [degF] Pac 2 Work Phone: [facility] 12-06-2023 09:08-0400 Body weight 83 kg Pac 2 Work Phone: [facility] 12-06-2023 09:08-0400 Diastolic blood pressure 90 mm[Hg] Pacc 2 Work Phone: [facility] 12-06-2023 09:08-0400 Heart rate 67 /min Pacc 2 Work Phone: [facility] 12-06-2023 09:08-0400 Respiratory rate 16 /min Pac 2 Work Phone: [facility] 12-06-2023 09:08-0400 SaO2% (BldA) [Mass fraction] 99 % Pac 2 Work Phone: [facility] 05-03-2024 09:08-0400 Systolic blood pressure 170 mm[Hg] Pacc 2 Work Phone: [facility] 09-13-2023 10:53-0500 Body mass index (BMI) [Ratio] 31.78 kg/m2 Barbara Dixon [employer] Work Phone: [facility] 09-13-2023 10:53-0500 Body temperature 97.5 [degF] Barbara Dixon [employer] Work Phone: [facility] 09-13-2023 10:53-0500 Body weight 89.3 kg Barbaramara Dixon [employer] Work Phone: [facility] 09-13-2023 10:53-0500 Diastolic blood pressure 100 mm[Hg] Barbara Dixon [employer] Work Phone: [facility] 09-13-2023 10:53-0500 Heart rate 79 /min Barbara Dixon [employer] Work Phone: [facility] 09-13-2023 10:53-0500 SaO2% (BldA) [Mass fraction] 98 % Barbaramara Dixon [employer] Work Phone: [facility] 09-13-2023 10:53-0500 Systolic blood pressure 160 mm[Hg] Barbara Dixon [employer] Work Phone: [facility] 09-09-2023 16:00-0500 Body height 170.18 cm Zara Ramo Other [email or web address] Other 09-09-2023 16:00-0500 Body mass index (BMI) [Ratio] 30.82 kg/m2 Zara Ramo Other [email or web address] Other 09-09-2023 16:00-0500 Body temperature 96.4 [degF] Zara Ramo Other [email or web address] Other 09-09-2023 16:00-0500 Body weight 89.27 kg Zara Ramo Other [email or web address] Other 09-09-2023 16:00-0500 Diastolic blood pressure 92 mm[Hg] Zara Ramo Other [email or web address] Other 09-09-2023 16:00-0500 Respiratory rate 18 /min Zara Ramo Other [email or web address] Other 09-09-2023 16:00-0500 SaO2% (BldA) [Mass fraction] 99 % Zara Ramo Other [email or web address] Other 09-09-2023 16:00-0500 Systolic blood pressure 151 mm[Hg] Zara Ramo Other [email or web address] Other 08-19-2023 16:00-0500 Body height 170.18 cm Zara Ramo Other [email or web address] Other 08-19-2023 16:00-0500 Body mass index (BMI) [Ratio] 31.76 kg/m2 Zara Ramo Other [email or web address] Other 08-19-2023 16:00-0500 Body temperature 97.5 [degF] Zara Ramo Other [email or web address] Other 08-19-2023 16:00-0500 Body weight 91.99 kg Zara Ramo Other [email or web address] Other 08-19-2023 16:00-0500 Diastolic blood pressure 100 mm[Hg] Zara Ramo Other [email or web address] Other 08-19-2023 16:00-0500 Respiratory rate 18 /min Zara Ramo Other [email or web address] Other 08-19-2023 16:00-0500 SaO2% (BldA) [Mass fraction] 100 % Zara Ramo Other [email or web address] Other 08-19-2023 16:00-0500 Systolic blood pressure 170 mm[Hg] Zara Ramo Other [email or web address] Other 06-06-2022 16:17-0400 Diastolic blood pressure 89 mm[Hg] Immanuel Kuhn [facility] Work Phone: 06-06-2022 16:17-0400 Systolic blood pressure 138 mm[Hg] Immanuel Kuhn [facility] DO Work Phone: 06-06-2022 15:45-0400 Body height 170.18 cm Immanuel Kuhn [facility] DO Work Phone: 06-06-2022 15:45-0400 Body mass index (BMI) [Ratio] 47.77 kg/m2 Immanuel Kuhn [facility] DO Work Phone: 06-06-2022 15:45-0400 Body surface area Derived from formula 2.42 m2 Immanuel Kuhn Work [facility]: [facility] DO Work Phone: 06-06-2022 15:45-0400 Body weight 138.35 kg Immanuel Kuhn [facility] DO Work Phone: 06-06-2022 15:45-0400 Diastolic blood pressure 102 mm[Hg] Immanuel Kuhn Work Phone: [facility] DO Work Phone: 06-06-2022 15:45-0400 Heart rate 71 /min Immanuel Kuhn Work Phone: [facility] DO Work Phone: 06-06-2022 15:45-0400 Systolic blood pressure 160 mm[Hg] Immanuel Kuhn Work Phone: [facility] DO Work Phone: Encounters Encounter Date Encounter Type Care Provider Facility Start: 06-04-2024 End: 06-04-2024 Bamboo flowsheet Sheila Braun [facility] Work Phone: [facility] Start: 06-04-2024 End: 06-04-2024 Bamboo flowsheet Sheila Braun [facility] Work Phone: [facility] Start: 06-04-2024 End: 06-04-2024 flow sheet [facility] Ob Nurse [facility] OB Comment on above: GA: 7w5d Start: 05-28-2024 End: 05-28-2024 Bamboo flowsheet Sheila Josefa Braun [facility] Work Phone: [facility] Start: 05-28-2024 End: 05-28-2024 Bamboo flowsheet Sheila Joesfa MartinezBraun [facility] Work Phone: [facility] Start: 05-28-2024 End: 05-28-2024 Social Work Sheila Josefa Braun [facility] Work Phone: [facility] Comment on above: Generalized anxiety disorder (CMS/HCC); Bipolar affective disorder, currently depressed, mild (CMS/HCC) Start: 05-24-2024 End: 05-24-2024 Office outpatient visit 25 minutes Rea Kaplan [employer] Work Phone: [facility] UC Comment on above: Viral illness (Prima ry Dx); Pharyngitis, unspecified etiology Start: 05-24-2024 End: 05-24-2024 ambulatory REA KAPLAN Not Available Start: 05-21-2024 End: 05-21-2024 Bamboo flowsheet Sheila Braun [facility] Work Phone: [facility] Start: 05-21-2024 End: 05-21-2024 Bamboo flowsheet Sheila Braun [facility] Work Phone: [facility] Start: 05-21-2024 End: 05-21-2024 ambulatory SHEILA BRAUN Not Available Comment on above: Generalized anxiety disorder (CMS/HCC); Bipolar affective disorder, currently depressed, mild (CMS/HCC) Start: 05-19-2024 End: 05-19-2024 Telephone encounter Eliot L Gouldsboro DO Work Phone: [facility] 230 Start: 05-19-2024 End: 05-19-2024 Office outpatient visit 25 minutes Eliot L Gouldsboro DO Work Phone: [facility] 230 Comment on above: , unspecifi ed gestational age (Primary Dx); Missed menses Start: 05-19-2024 End: 05-19-2024 ambulatory IMMANUEL KUHN Not Available Start: 05-07-2024 End: 05-07-2024 Bamboo flowsheet Eliot L Gouldsboro DO Work Phone: [facility] 230 Start: 05-07-2024 End: 05-07-2024 Bamboo flowsheet Eliot L Gouldsboro DO Work Phone: [facility] 230 Start: 05-07-2024 End: 05-07-2024 ambulatory ELIOT L CUTLER Not Available Start: 05-07-2024 End: 05-07-2024 Office outpatient visit 25 minutes Eliot L Gouldsboro DO Work Phone: [facility] 230 Comment on above: Bipolar affective di sorder, currently depressed, mild (CMS/HCC) (Primary Dx); LUISITO (generalized anxiety disorder) (CMS/HCC); Irritable bowel syndrome with both constipation and diarrhea; Anastomotic ulcer Start: 05-05-2024 End: 05-05-2024 Bamboo flowsheet Sheila Braun [facility] Work Phone: [facility] Start: 05-05-2024 End: 05-05-2024 Bamboo flowsheet Sheila Braun [facility] Work Phone: [facility] Start: 05-05-2024 End: 05-05-2024 Social Work Sheila Rivero Kade [facility] Work Phone: [facility] Comment on above: Generalized anxiety disorder (CMS/HCC); Bipolar affective disorder, currently depressed, mild (CMS/HCC) Anxiety Start: 05-04-2024 End: 05-04-2024 ambulatory Calderon Talleeanne Noriegamini Facility:[facility] Start: 05-04-2024 End: 05-04-2024 Patient encounter [facility] Start: 04-21-2024 End: 04-21-2024 ambulatory SHEILAAMBER BRAUN Not Available Start: 04-20-2024 End: 04-20-2024 ambulatory [facility] Facility:[facility] Start: 04-10-2024 End: 04-10-2024 ambulatory IMMANUEL KUHN Facility:[facility] Start: 04-10-2024 End: 04-10-2024 ambulatory [facility] Facility:[facility] Start: 04-10-2024 End: 04-10-2024 Patient encounter procedure Nurse Lyla 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) Start: 04-09-2024 End: 04-09-2024 Telephone encounter Vikki Balderrama MD Work Phone: Endocrinology Start: 04-01-2024 End: 04-01-2024 ambulatory SHEILAAMBER BRAUN Not Available Start: 03-25-2024 End: 03-25-2024 ambulatory SHEILA BRAUN Not Available Start: 03-24-2024 End: 03-24-2024 Lab Drop off Kvng Guillenal Briei [facility] Start: 03-24-2024 End: 03-24-2024 ambulatory Calderon Talal Briei [facility] Start: 03-24-2024 End: 03-24-2024 ambulatory Calderon Talal Leannmini Facility:[id number] Start: 03-19-2024 End: 03-19-2024 ambulatory Calderon Talal Leannmini [facility] Start: 03-19-2024 End: 03-19-2024 Patient encounter procedure Kvng Marie [facility] Start: 03-18-2024 End: 03-18-2024 ambulatory SHEILA Josefa BRAUN Not Available Start: 02-27-2024 ambulatory Kvng Marie Facili ty:Swetha rodriguez Start: 02-26-2024 End: 02-26-2024 ambulatory TAREK ASHOUR Facility:[facility] Start: 02-26-2024 End: 02-26-2024 ambulatory ELIOT L CUTLER Not Available Start: 02-21-2024 End: 02-21-2024 Emergency department patient visit DO Immanuel Kuhn Work Phone: [facility] Work Phone: Start: 02-20-2024 End: 02-20-2024 ambulatory SHEILA L BRAUN Not Available Start: 02-20-2024 End: 02-20-2024 ambulatory ELIOT L CUTLER Not Available Start: 02-19-2024 End: 02-19-2024 ambulatory [facility] Facility:[facility] Start: 02-13-2024 End: 02-13-2024 ambulatory IMMANUEL KUHN Not Available Start: 02-13-2024 Telephone encounter Vikki smith MD Work Phone: Endocrinology Start: 02-13-2024 End: 02-13-2024 [facility] Start: 02-13-2024 End: 02-13-2024 ambulatory SHEILA BRAUN Not Available Start: 02-12-2024 End: 02-12-2024 ambulatory Vikki Balderrama MD Work Phone: Endocrinology Comment on above: Hydrocortisone plan Start: 02-12-2024 E-mail encounter fro m caregiver Vikki Balderrama MD Work Phone: Endocrinology Start: 02-12-2024 End: 02-12-2024 Patient encounter procedure Vikki Balderrama MD Work Phone: Endocrinology Comment on above: 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); Primary hyperaldosteronism (HCC); Adenoma of left adrenal gland Primary hyperaldoste ronism (HCC) (Primary Dx) Start: 02-07-2024 Telephone encounter Vikki smith MD Work Phone: Endocrinology Start: 02-07-2024 End: 02-07-2024 ambulatory [facility] Facility:[facility] Start: 02-04-2024 End: 02-04-2024 [facility] Facility:[facility] Start: 02-04-2024 End: 02-04-2024 Patient encounter procedure Manuel Alfaro MD Work Phone: Kidney Medicine Comment on above: Chronic hypokalemia (Primary Dx); Primary hyperaldosteronism (HCC); Uncontrolled hypertension Start: 02-03-2024 End: 02-03-2024 ambulatory [facility] Facility:[facility] Start: 01-27-2024 End: 01-29-2024 Evaluation and management of inpatient IMMANUEL KUHN Facility:[facility] Start: 01-23-2024 End: 01-23-2024 ambulatory SHEILA BRAUN Not Available Start: 01-20-2024 End: 01-20-2024 ambulatory [facility] Facility:[facility] Start: 01-20-2024 Encounter for other preprocedural examination IMMANUEL KUHN [facility] Start: 01-20-2024 End: 01-20-2024 Office outpatient visit 15 minutes [facility] [place] [facility] Comment on above: Pre-op evaluation (P rimary Dx); Oligodendroglioma of brain (HCC); History of bariatric surgery; Iron deficiency; Adenoma of left adrenal gland; Primary hyperaldosteronism (HCC); Tobacco use; History of hypokalemia Start: 01-20-2024 End: 01-20-2024 Preprocedural examination done [facility] Work Phone: Start: 01-16-2024 End: 01-16-2024 ambulatory [facility] Facility:[facility] Start: 01-16-2024 End: 01-16-2024 ambulatory ELIOT L CUTLER Not Available Start: 01-07-2024 End: 01-07-2024 ambulatory SHEILA L BRAUN Not Available Start: 01-02-2024 E-mail encounter cayla mcnulty caregiver Manuel Alfaro MD Work Phone: Kidney Medicine Start: 01-02-2024 Follow-up encounter Manuel diehl MD Work Phone: Kidney Medicine Comment on above: follow up Start: 01-02-2024 End: 01-02-2024 ambulatory [facility] Facility:[facility] Start: 12-31-2023 End: 12-31-2023 ambulatory SHEILA L BRAUN Not Available Start: 12-24-2023 End: 12-24-2023 ambulatory SHEILA L BRAUN Not Available Start: 12-23-2023 End: 12-23-2023 [facility] Facility:[facility] Start: 12-19-2023 Telephone encounter Mario encinas MD Work Phone: Endocrine Surgery Comment on above: 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 Start: 12-19-2023 End: 12-19-2023 ambulatory [facility] Facility:[facility] Start: 12-16-2023 End: 12-16-2023 ambulatory Manuel Alfaro MD Work Phone: Kidney Medicine Comment on above: Recent potassium pre scription Start: 12-13-2023 E-mail encounter cayla mcnulty caregiver Manuel Alfaro MD Work Phone: Kidney Medicine Start: 12-13-2023 Follow-up encounter Manuel diehl MD Work Phone: Kidney Medicine Comment on above: Follow up Chronic hypokalemia (Primary Dx) Start: 12-13-2023 End: 12-13-2023 [facility] Facility:[facility] Start: 12-12-2023 End: 12-12-2023 ambulatory SHEILA L BRAUN Not Available Start: 12-12-2023 End: 12-12-2023 ambulatory ELIOT L CUTLER Not Available Start: 12-11-2023 End: 12-11-2023 Patient encounter procedure Manuel Alfaro MD Work Phone: Kidney Medicine Comment on above: Chronic hypokalemia (Primary Dx); Adenoma of left adrenal gland; Primary hyperaldosteronism (HCC); Uncontrolled hypertension; Hypertension secondary to endocrine disorders; History of bariatric surgery Start: 12-11-2023 End: 12-11-2023 [facility] Facility:[facility] Start: 12-10-2023 End: 12-10-2023 Evaluation and management of inpatient IMMANUEL KUHN Facility:[facility] Start: 12-06-2023 End: 12-06-2023 PAT [facility] [place] [facility] Work Phone: Pre Anesthesia Comment on above: Pre-op evaluation (P rimary Dx); Iron deficiency; Migraine with aura and without status migrainosus, not intractable; First degree AV block; Acute hypokalemia; Oligodendroglioma of brain (HCC); Bipolar affective disorder, currently depressed, mild (HCC); Depressive disorder; Anxiety; History of bariatric surgery Start: 12-06-2023 End: 12-06-2023 Preprocedural examination done Pac [place] [facility] Work Phone: [facility] Work Phone: Start: 12-03-2023 End: 12-03-2023 ambulatory SHEILA L BRAUN Not Available Start: 11-28-2023 End: 11-28-2023 ambulatory SHEILA L BRAUN Not Available Start: 11-28-2023 End: 11-28-2023 ambulatory ELIOT L CUTLER Not Available Start: 11-21-2023 End: 11-21-2023 ambulatory SHEILA L BRAUN Not Available Start: 11-19-2023 Telephone encounter Mario encinas MD Work Phone: Endocrine Surgery Comment on above: Patient Question (Pt want to confirm one or two weeks for being off of work after surgery?) Start: 11-15-2023 Telephone encounter Arianna avendano MD Work Phone: Endocrinology Comment on above: Critical Results Start: 11-15-2023 End: 11-15-2023 ambulatory ARIANNA LORA Facility:[facility] Start: 11-14-2023 Telephone encounter Arianna avendano MD Work Phone: Endocrinology Comment on above: Returning Patient's Call; Results Start: 11-14-2023 End: 11-14-2023 ambulatory NATASHA CHASE Facility:[facility] Start: 11-14-2023 End: 11-14-2023 ambulatory SHEILA L BRAUN Not Available Start: 11-07-2023 End: 11-07-2023 ambulatory SHEILA L BRAUN Not Available Start: 11-05-2023 ambulatory Mario Sullivan MD Work Phone: Endocrine Surgery Comment on above: OR [facility] 12/10/23 (Roboti c lap left adrenalectomy ) Start: 10-30-2023 End: 10-30-2023 ambulatory SHEILA L BRAUN Not Available Start: 10-30-2023 End: 10-30-2023 ambulatory ELIOT GARCÍA Not Available Start: 10-25-2023 Telephone encounter Mario encinas MD Work Phone: Endocrine Surgery 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 on 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: 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 Start: 10-24-2023 End: 10-24-2023 ambulatory SHEILA L BRAUN Not Available Start: 10-23-2023 End: 10-23-2023 ambulatory MIGEL YI Facility:[facility] Start: 10-22-2023 End: 10-22-2023 ambulatory ARMANDO MARISA Facility:[facility] Start: 10-17-2023 End: 10-18-2023 ambulatory SHEILA L BRAUN Not Available Start: 10-11-2023 End: 10-11-2023 ambulatory ARMANDO CUNNINGHAM Facility:[facility] Start: 10-10-2023 End: 10-10-2023 ambulatory SHEILAAMBER BRAUN Not Available Start: 09-25-2023 End: 09-25-2023 ambulatory SHEILAAMBER MARTINEZNETT Not Available Start: 09-25-2023 End: 09-25-2023 ambulatory MANASA DUNAWAY Not Available Start: 09-13-2023 Telephone encounter Barbara Dixon NP Work Phone: [facility] Start: 09-13-2023 End: 09-13-2023 ambulatory BARBARA DIXON Not Available Start: 09-13-2023 End: 09-13-2023 Office outpatient visit 25 minutes Barbara Dixon [employer] Work Phone: [facility] Comment on above: Acute bronchitis, un specified organism (Primary Dx) Start: 09-12-2023 Clinisync Result Encounter Gen juan luis External Data Provider [facility] External Department Unsolicited Start: 09-12-2023 Clinisync Result Encounter Gen juan luis External Data Provider [facility] External Department Unsolicited Start: 09-12-2023 End: 09-12-2023 ambulatory Mario Sullivan MD Work Phone: General Surgery Comment on above: Primary hyperaldoste ronism (HCC) (Primary Dx); Adenoma of left adrenal gland Start: 09-12-2023 End: 09-12-2023 Telemedicine consultation with patient Mario Sullivan MD Work Phone: [facility] Start: 09-11-2023 Bamboo flowsheet Sheila L Benne tt [facility] Work Phone: [facility] Start: 09-11-2023 Bamboo flowsheet Sheila L Benne tt [facility] Work Phone: [facility] Start: 09-11-2023 End: 09-11-2023 Social Work Sheila Braun [facility] Work Phone: [facility] Comment on above: Generalized anxiety disorder (CMS/HCC); Bipolar affective disorder, currently depressed, mild (CMS/HCC) Start: 09-10-2023 Chart abstracting Manasa Dunaway DPM Work Phone: [facility] Start: 09-10-2023 End: 09-10-2023 ambulatory IMMANUEL KUHN Facility:[facility] Start: 09-09-2023 End: 09-09-2023 ambulatory Zara Ramo Other [email or web address] Other Start: 09-09-2023 Office outpatient vi sit 25 minutes Zara Ramo [facility] Start: 09-06-2023 Clinisync Result Encounter Gen juan lusi External Data Provider [facility] External Department Unsolicited Start: 09-06-2023 Clinisync Result Encounter Gen juan luis External Data Provider [facility] External Department Unsolicited Start: 09-06-2023 Telephone encounter Mario encinas MD Work Phone: Endocrine Surgery Comment on above: Consult (FACE SHEET) Start: 09-06-2023 End: 09-06-2023 ambulatory IMMANUEL KUHN Facility:[facility] Start: 09-05-2023 Telephone encounter Mario encinas MD Work Phone: General Surgery Comment on above: Appointment (Called patient and left a message that patient was added to 's schedule for a virtual appointment for 09/12 at 11AM per . Sent [employer] message and mailed out appointment reminder) Start: 08-30-2023 End: 08-30-2023 ambulatory IMMANUEL KUHN Facility:[facility] Start: 08-30-2023 End: 08-30-2023 Patient encounter procedure DO Immanuel Kuhn Work Phone: [facility] [place] Work Phone: Start: 08-30-2023 End: 08-30-2023 ambulatory DO Immanuel Kuhn Work Phone: [facility] Work Phone: Start: 08-23-2023 End: 08-23-2023 ambulatory Zara Ramo Other [email or web address] Other Start: 08-23-2023 Telephone encounter Zara Ramo [facility] Start: 08-22-2023 End: 08-22-2023 ambulatory SHEILA BRAUN Not Available Start: 08-21-2023 End: 08-21-2023 ambulatory MANASA DUNAWAY Not Available Start: 08-20-2023 End: 08-20-2023 Telemedicine consultation with patient Vikki Balderrama MD Work Phone: [facility] Start: 08-20-2023 End: 08-20-2023 ambulatory Vikki Balderrama MD Work Phone: Endocrinology Comment on above: 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) Start: 08-19-2023 End: 08-19-2023 ambulatory Zara Ramo Other [email or web address] Other Start: 08-19-2023 Office outpatient ne w 45 minutes Zara Ramo [facility] Start: 08-19-2023 End: 08-19-2023 Patient encounter procedure DO Immanuel Kuhn Work Phone: [facility]ph[facility] Work Phone: Start: 08-15-2023 End: 08-15-2023 ambulatory MANASA DUNAWAY Not Available Start: 08-14-2023 End: 08-14-2023 ambulatory SHEILA BRAUN Not Available Start: 08-07-2023 End: 08-07-2023 ambulatory ТАТЬЯНА CARTER Not Available Start: 08-02-2023 End: 08-02-2023 ambulatory JUAN BARON Not Available Start: 07-30-2023 End: 07-31-2023 ambulatory JUAN BARON Not Available Start: 07-24-2023 End: 07-24-2023 ambulatory JHONY GARCIA Not Available Start: 07-22-2023 End: 07-22-2023 ambulatory JUAN BARON Not Available Start: 07-18-2023 End: 07-18-2023 ambulatory ALEX NAIK Not Available Start: 07-03-2023 End: 07-03-2023 ambulatory IMMANUEL KUHN Not Available Start: 06-26-2023 End: 06-26-2023 ambulatory SHEILA BRAUN Not Available Start: 03-18-[address] Della Kim Facility: Start: 12-13-2022 Encounter for preprocedural laboratory examination DR DOCTOR FARMER [facility] Start: 12-07-2022 End: 12-08-[address] IMMANUEL KUHN Facility:[facility] Start: 12-07-2022 End: 12-08-2022 Encounter for preprocedural laboratory examination DR IMMANUEL KUHN Facility:[facility] Start: 11-05-2022 ambulatory RAVINDRA FIGUEREDOEDER [facility] Start: 10-23-2022 End: 10-24-2022 ambulatory ZAKIA BENSON Facility:[facility] Start: 10-22-2022 End: 10-23-[address] [facility] Start: 09-13-2022 End: 09-13-2022 ambulatory DO Immanuel Kuhn Work Phone: [facility] Work Phone: Start: 09-13-2022 End: 09-13-2022 Patient encounter procedure DO Immanuel Kuhn Work Phone: [facility] [place] Work Phone: Start: 09-10-2022 End: 09-10-[address] [facility] Start: 09-07-2022 End: 09-08-[address] JOSE DARNELL . Facility:[facility] Start: 09-07-2022 End: 09-07-[address] JOSE DARNELL . Facility:[facility] Start: 09-07-2022 End: 09-07-2022 ambulatory DO Immanuel Kuhn Work Phone: [facility] Work Phone: Start: 09-07-2022 End: 09-07-2022 Patient encounter procedure DO Immanuel Kuhn Work Phone: [facility] [place] Work Phone: Start: 08-07-2022 Rx Renewal Immanuel Kuhn Work Phone: [facility] [address] DO Work Phone: Start: 07-31-2022 End: 02-21-2023 Preprocedural examination done Generic Provider [facility] Start: 06-06-2022 Office outpatient vi sit 25 minutes Immanuel Kuhn Work Phone: [facility] [address] DO Work Phone: Start: 06-06-[address] Della Kim Facility: Start: 01-04-2022 End: 01-05-[address] ESTHER ANGELES Facility:[facility] Start: 01-23-2018 End: 01-25-2018 [facility] Patient encounter status Immanuel Kuhn Work Phone: [facility] [address] DO Work Phone: Procedures Date Procedure Procedure Detail Performing Clinician Start: 05-24-2024 STATUS COVID-19/FLU Rea L Didion [employer] Work Phone: Start: 05-19-2024 Urine test visual color cmprsn meths Eliot L [place] DO Work Phone: Start: 03-24-2024 Esophagogastroduodenoscopic electrohydraulic lithotripsy of bezoar in stomach Calderon Leannmini Start: 02-21-2024 Computed tomography of abdomen and pelvis with contrast DO Immanuel Kuhn Work Phone: Start: 01-20-2024 Antibody screen IMMANUEL KUHN Comment on above: Order Comment: Specimen Type: BLOOD SPEC IMENOrdering Facility: [facility] Address: [address] [place] [address] Performed By: #### T [id number] ####CC MAIN BLOOD BANKCLIA [id number] [facility] [id number] [id number] [place] Start: 01-04-2024 Abscess of adrenal gland Calderon Leannmin i Start: 11-14-2023 Antibody screen IMMANUEL KUHN Comment on above: Order Comment: Specimen Type: BLOOD SPEC IMENOrdering Facility: [facility] Address: [address] [place] [address] Performed By: #### T SCR30 ####CC MAIN BLOOD BANKCLIA [id number] [address] [place] [id number] [address] [place] Start: 09-12-2023 ALL POTASSIUM Generic External Data Provider Start: 09-06-2023 [facility]ORTIS P DEX [facility] Generic Exte rnal Data Provider Start: 12-03-2022 Bypass of stomach Calderon Clctin Neoplasm of brain (disorder) Calderon Tarsus [employer] Comment on above: 2019 Plantar fascia struc ture (body structure) [facility] [employer] Comment on above: left and right Plan of Treatment Date Care Activity Detail Author Start: 12-18-2026 Screening for malignant neoplasm of cervix [facility] Start: 01-15-2025 Urine screening for protein Diabetes: Urine Protein Screening [facility] Start: 07-01-2024 End: 07-01-2024 Social Work [facility] Start: 06-25-2024 End: 06-25-2024 Social Work 06/25/2024 10:00 AM EST Social Work [facility] [address] [place] [address] Sheila Braun, [facility] [address] [place] [address] [facility] Start: 06-17-2024 End: 06-17-2024 Social Work [facility] Start: 06-11-2024 End: 06-11-2024 Social Work 06/11/2024 9:00 AM EST Social Work [facility] [address] [place] [address] Sheila Braun, [facility] [address] [place] [address] [facility] Start: 06-04-2024 End: 06-04-2025 Bacteria identified in Urine by Culture Urine culture Microbiology Routine Encounter for supervision of normal first in first trimester Expected: 06/04/2024 (Approximate), Expires: 06/04/2025 [facility] Comment on above: Expected: 06/04/2024 (Approximate), Expi res: 06/04/2025 Start: 06-04-2024 End: 06-04-2025 Blood type and Indirect antibody screen panel - Blood Type and screen Lab Routine Encounter for supervision of normal first in first trimester Expected: 06/04/2024 (Approximate), Expires: 06/04/2025 [facility] Comment on above: Expected: 06/04/2024 (Approximate), Expi res: 06/04/2025 Start: 06-04-2024 End: 06-04-2025 CBC W Auto Differential panel - Blood CBC and differential Lab Routine Encounter for supervision of normal first in first trimester Expected: 06/04/2024 (Approximate), Expires: 06/04/2025 [facility] Comment on above: Expected: 06/04/2024 (Approximate), Expi res: 06/04/2025 Start: 06-04-2024 End: 06-04-2025 Hepatitis B virus surface Ag [Presence] in Serum or Plasma by Immunoassay Hepatitis B surface antigen Lab Routine Encounter for supervision of normal first in first trimester Expected: 06/04/2024 (Approximate), Expires: 06/04/2025 [facility] Comment on above: Expected: 06/04/2024 (Approximate), Expi res: 06/04/2025 Start: 06-04-2024 End: 06-04-2025 Hepatitis C virus Ab [Presence] in Serum or Plasma by Immunoassay Hepatitis C antibody Lab Routine Encounter for supervision of normal first in first trimester Expected: 06/04/2024 (Approximate), Expires: 06/04/2025 [facility] Comment on above: Expected: 06/04/2024 (Approximate), Expi res: 06/04/2025 Start: 06-04-2024 End: 06-04-2025 HIV-1/HIV-2 antigen/antibody combination immunoassay HIV-1 and HIV-2 antibodies Lab Routine Encounter for supervision of normal first in first trimester Expected: 06/04/2024 (Approximate), Expires: 06/04/2025 [facility] Comment on above: Expected: 06/04/2024 (Approximate), Expi res: 06/04/2025 Start: 06-04-2024 End: 06-04-2025 [id number] PLUS Core+SCA [id number] PLUS Core+SCA Pathology and Cytology Routine care, antepartum Encounter for screening for chromosomal anomalies Expected: 06/04/2024 (Approximate), Expires: 06/04/2025 [facility] Comment on above: Expected: 06/04/2024 (Approximate), Expi res: 06/04/2025 Start: 06-04-2024 End: 06-04-2025 Reagin Ab [Presence] in Serum by RPR RPR Lab Routine Encounter for supervision of normal first in first trimester Expected: 06/04/2024 (Approximate), Expires: 06/04/2025 [facility] Comment on above: Expected: 06/04/2024 (Approximate), Expi res: 06/04/2025 Start: 06-04-2024 End: 06-04-2025 Rubella antibody, IgG Rubella antibody, IgG Lab Routine Encounter for supervision of normal first in first trimester Expected: 06/04/2024 (Approximate), Expires: 06/04/2025 [facility] Comment on above: Expected: 06/04/2024 (Approximate), Expi res: 06/04/2025 Start: 06-04-2024 End: 06-04-2025 SENDOUT TEST MISCELLANEOUS [facility] Comment on above: Expected: 06/04/2024 (Approximate), Expi res: 06/04/2025 Start: 06-04-2024 End: 06-04-2025 Urinalysis complete panel - Urine Urinalysis with microscopic Lab Routine Encounter for supervision of normal first in first trimester Expected: 06/04/2024 (Approximate), Expires: 06/04/2025 [facility] Work Phone: Comment on above: Expected: 06/04/2024 (Approximate), Expi res: 06/04/2025 Start: 06-04-2024 End: 06-04-2024 Social Work [facility] Comment on above: Arrived Start: 05-28-2024 End: 05-28-2024 Social Work [facility] Start: 05-21-2024 End: 05-21-2024 Social Work [facility] Comment on above: Arrived Start: 05-19-2024 End: 05-19-2025 HCG, quantitative, HCG, quantitative, Lab Routine Missed menses , unspecified gestational age Expected: 05/19/2024 (Approximate), Expires: 05/19/2025 [facility] Work Phone: Comment on above: Expected: 05/19/2024 (Approximate), Expi res: 05/19/2025 Start: 05-13-2024 End: 05-13-2024 Social Work 05/13/2024 2:00 PM EDT Social Work [facility] [address] [place] [address] [facility] [address] [place] [address] [facility] Start: 04-10-2024 End: 04-10-2024 Patient encounter procedure 04/10/2024 11:45 AM EDT Office Visit [facility] [address] [place] [address] [place] [address] lab [facility] Comment on above: lab Start: 04-10-2024 End: 04-10-2024 Patient encounter procedure 04/10/2024 8:30 AM EDT Office Visit Endocrinology [address] [place] [address] ACTH test Endocrinology Comment on above: ACTH test Start: 04-05-2024 Covid-19 Vaccine ( season) Covid-19 Vaccine ( season) [facility] Start: 04-05-2024 Influenza vaccination [facility] Start: 02-18-2024 End: 02-18-2024 ambulatory 02/18/2024 2:15 PM EDT Results Only [facility] [address] [place] [address] [facility] Start: 02-13-2024 End: 02-13-2024 ambulatory 02/13/2024 11:00 AM EDT Results Only [facility] [address] [place] [address] [facility] Start: 02-12-2024 End: 02-12-2024 Patient encounter procedure 02/12/2024 3:00 PM EDT Office Visit Endocrine Surgery [address] [id number] [place] [address] [place] [id number] post op Endocrine Surgery Comment on above: post op Start: 02-12-2024 End: 05-13-2024 Aldosterone [Mass/volume] in Serum or Plasma ALDOSTERONE BLD Lab Routine Primary hyperaldosteronism (HCC) Expected: 02/12/2024, Expires: 05/13/2024 [facility] Work Phone: Comment on above: Expected: 02/12/2024, Expires: Start: 02-12-2024 End: 05-13-2024 Basic metabolic 2000 panel - Serum or Plasma BASIC METABOLIC PANEL Lab Routine Primary hyperaldosteronism (HCC) Expected: 02/12/2024, Expires: 05/13/2024 [facility] Comment on above: Expected: 02/12/2024, Expires: Start: 02-12-2024 End: 05-13-2024 DIRECT RENIN PLASMA DIRECT RENIN PLASMA Lab Routine Primary hyperaldosteronism (HCC) Expected: 02/12/2024, Expires: 05/13/2024 [facility] Comment on above: Expected: 02/12/2024, Expires: Start: 02-11-2024 End: 02-11-2024 ambulatory 02/11/2024 3:15 PM EDT Results Only [facility] [address] [place] [address] [facility] Start: 02-07-2024 End: 02-07-2024 ambulatory 02/07/2024 10:00 AM EDT Results Only [facility] [address] [place] [address] [facility] Start: 02-04-2024 End: 05-05-2024 Renal function 2000 panel - Serum or Plasma RENAL FUNCTION PANEL Lab Routine Chronic hypokalemia Primary hyperaldosteronism (HCC) Expected: 02/04/2024, Expires: 05/05/2024 [facility] Work Phone: Comment on above: Expected: 02/04/2024, Expires: Start: 02-04-2024 End: 02-04-2024 Patient encounter procedure 02/04/2024 11:30 AM EDT Office Visit Kidney Medicine [address] [place] [address] Manuel Alfaro MD [address] [place] [address] surgery post-op add on per provider staff message 01/01 Kidney Medicine Comment on above: surgery post-op add on per provider staf f message 01/01 Start: 01-30-2024 Hemoglobin A1c measurement Diabetes: Hemoglobin A1C [facility] Start: 01-28-2024 End: 01-28-2024 Evaluation and management of inpatient 01/28/2024 11:34 AM EDT - 01/28/2024 3:41 PM EDT Surgery Admitting [address] [place] [address] [place] [address] [place] [address] ROBOTIC LAPAROSCOPIC LEFT TRANSABDOMINAL ADRENALECTOMY Admitting Comment on above: ROBOTIC LAPAROSCOPIC LEFT TRANSABDOMINAL ADRENALECTOMY Start: 01-28-2024 End: 01-28-2024 Laparoscopy adrenalectomy prtl/compl tabdl ROBOTIC LAPAROSCOPIC LEFT TRANSABDOMINAL ADRENALECTOMY Adenoma of left adrenal gland Primary hyperaldosteronism (HCC) 01/28/2024 11:34 AM EDT [facility] Start: 01-27-2024 Evaluation and management of inpatient 01/27/2024 11:34 AM EDT Hospital Encounter Admitting [address] [place] [address] [place] [address] [place] [address] 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] Admitting Comment on above: 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] Start: 01-23-2024 End: 01-23-2024 ambulatory [facility] Start: 01-20-2024 End: 01-20-2024 ambulatory [facility] Start: 01-20-2024 End: 01-20-2024 Anesthesia consultation 01/20/2024 9:00 AM EDT PAT Pre Anesthesia [address] [place] [address] pre-op Pre Anesthesia Comment on above: pre-op Start: 01-16-2024 End: 01-16-2024 ambulatory 01/16/2024 1:30 PM EDT Results Only [facility] [address] [place] [address] [facility] Start: 01-13-2024 End: 01-13-2024 ambulatory [facility] Start: 01-06-2024 End: 01-06-2024 ambulatory 01/06/2024 2:30 PM EDT Results Only [facility] [address] [place] [address] [facility] Start: 01-02-2024 End: 01-02-2024 ambulatory [facility] Start: 12-31-2023 End: 12-31-2023 ambulatory [facility] Start: 12-26-2023 End: 12-26-2023 ambulatory [facility] Start: 12-25-2023 End: 12-25-2023 Patient encounter procedure 12/25/2023 1:00 PM EDT Office Visit Endocrine Surgery [address] [place] [address] [place] [address] [place] [id number] post op Endocrine Surgery Comment on above: post op Start: 12-23-2023 End: 12-23-2023 ambulatory [facility] Start: 12-19-2023 End: 12-19-2023 [facility] Start: 12-16-2023 End: 12-16-2023 [facility] Start: 12-11-2023 End: 03-11-2024 Magnesium [Mass/volume] in Serum or Plasma MAGNESIUM Lab STAT Chronic hypokalemia Expected: 12/11/2023, Expires: 03/11/2024 [facility] Comment on above: Expected: 12/11/2023, Expires: Start: 12-11-2023 End: 03-11-2024 Renal function 2000 panel - Serum or Plasma RENAL FUNCTION PANEL Lab STAT Chronic hypokalemia Expected: 12/11/2023, Expires: 03/11/2024 [facility] Work Phone: Comment on above: Expected: 12/11/2023, Expires: 4 Start: 12-10-2023 End: 12-10-2023 Admission to same day surgery center 12/10/2023 11:05 AM EDT - 12/10/2023 2:55 PM EDT Surgery Admitting [address] [place] [address] [place] [address] [place] [address] ROBOTIC LAPAROSCOPIC LEFT TRANSABDOMINAL ADRENALECTOMY Admitting Comment on above: ROBOTIC LAPAROSCOPIC LEFT TRANSABDOMINAL ADRENALECTOMY Start: 12-10-2023 End: 12-10-2023 Laparoscopy adrenalectomy prtl/compl tabdl ROBOTIC LAPAROSCOPIC LEFT TRANSABDOMINAL ADRENALECTOMY Adenoma of left adrenal gland 12/10/2023 11:05 AM EDT [facility] Start: 12-10-2023 Subsequent hospital visit by physician 12/10/2023 11:05 AM EDT Hospital Encounter Admitting [address] [place] [address] [place] [address] [place] [address] 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] Admitting Comment on above: 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] Start: 11-14-2023 End: 02-13-2024 Basic metabolic 2000 panel - Serum or Plasma BASIC METABOLIC PANEL Lab Routine Primary hyperaldosteronism (HCC) Expected: 11/14/2023, Expires: 02/13/2024 [facility] Work Phone: Comment on above: Expected: 11/14/2023, Expires: Start: 11-12-2023 End: 02-11-2024 CONFIRM BLOOD TYPE CONFIRM BLOOD TYPE Blood Bank Routine Adenoma of left adrenal gland Expected: 11/12/2023, Expires: 02/11/2024 [facility] Work Phone: Comment on above: Expected: 11/12/2023, Expires: 4 Start: 11-12-2023 End: 02-11-2024 TYPE AND SCREEN,30 DAY TYPE AND SCREEN,30 DAY Blood Bank Routine Adenoma of left adrenal gland Expected: 11/12/2023, Expires: 02/11/2024 [facility] Work Phone: Comment on above: Expected: 11/12/2023, Expires: 4 Start: 10-02-2023 End: 10-02-2023 Social Work 10/02/2023 12:00 PM EST Social Work [facility] [address] [place] [address] Sheila Braun, [facility] [address] [place] [address] [facility] Start: 09-25-2023 End: 09-25-2023 Social Work 09/25/2023 12:00 PM EST Social Work [facility] [address] [place] [address] Sheila Braun, [facility] [address] [place] [address] [facility] Start: 09-18-2023 End: 09-18-2023 Social Work 09/18/2023 12:00 PM EST Social Work [facility] [address] [place] [id number] Sheila Braun, [facility] [address] [place] [address] [facility] Start: 09-11-2023 End: 09-11-2023 Social Work 09/11/2023 12:00 PM EST Social Work [facility] [address] [place] [address] Sheila Braun, [facility] [address] [place] [address] [facility] Start: 09-10-2023 End: 09-10-2023 Patient encounter procedure 09/10/2023 8:45 AM EST Office Visit [facility] [address] [place] [id number] Manasa Dunaway DPM [address] [place] [address] [facility] Start: 08-30-2023 Doppler ultrasonography of kidney US renal doppler [facility] Start: 08-30-2023 US Unspecified body region [facility] Start: 08-20-2023 End: 11-19-2023 Aldosterone [Mass/volume] in Serum or Plasma ALDOSTERONE BLD Lab Routine Adenoma of left adrenal gland Expected: 08/20/2023, Expires: 11/19/2023 [facility] Work Phone: Comment on above: Expected: 08/20/2023, Expires: Start: 08-20-2023 End: 11-19-2023 Comprehensive metabolic 2000 panel - Serum or Plasma COMP METABOLIC PANEL Lab Routine Adenoma of left adrenal gland Expected: 08/20/2023, Expires: 11/19/2023 [facility] Work Phone: Comment on above: Expected: 08/20/2023, Expires: Start: 08-20-2023 End: 11-19-2023 Corticotropin [Mass/volume] in Plasma ACTH BLD Lab Routine Adenoma of left adrenal gland Expected: 08/20/2023, Expires: 11/19/2023 [facility] Work Phone: Comment on above: Expected: 08/20/2023, Expires: Start: 08-20-2023 End: 11-19-2023 Cortisol [Mass/volume] in Serum or Plasma CORTISOL BLD Lab Routine Adenoma of left adrenal gland Expected: 08/20/2023, Expires: 11/19/2023 [facility] Work Phone: Comment on above: Expected: 08/20/2023, Expires: Start: 08-20-2023 End: 11-19-2023 DHEA-S BLD DHEA-S BLD Lab Routine Adenoma of left adrenal gland Expected: 08/20/2023, Expires: 11/19/2023 [facility] Work Phone: Comment on above: Expected: 08/20/2023, Expires: Start: 08-20-2023 End: 11-19-2023 DIRECT RENIN PLASMA DIRECT RENIN PLASMA Lab Routine Adenoma of left adrenal gland Expected: 08/20/2023, Expires: 11/19/2023 [facility] Work Phone: Comment on above: Expected: 08/20/2023, Expires: 4 Start: 08-20-2023 End: 11-19-2023 METANEPHRINES, FREE PLASMA METANEPHRINES, FREE PLASMA Lab Routine Adenoma of left adrenal gland Expected: 08/20/2023, Expires: 11/19/2023 [facility] Work Phone: Comment on above: Expected: 08/20/2023, Expires: 4 Start: 08-05-2023 Behavioral Health Screening Behavioral Health Screening [facility] Start: 08-05-2023 Depression Assessment Depression Assessment [facility] Start: 07-04-2023 Urine screening for protein Diabetes: Urine Protein Screening [facility] Start: 04-05-2023 Covid-19 Vaccine ( season) Covid-19 Vaccine ( season) [facility] Start: 04-05-2023 Influenza vaccination Influenza Vaccine (#1) [facility] Start: 03-14-2023 FUV, Provider: Della Kim, Status: Pen, Time: 1:30 PM FUV, Provider: Della Kim, Status: Pen, Time: 1:30 PM [place] [address] DO Work Phone: Start: 04-06-2022 Hemoglobin A1c measurement Diabetes: Hemoglobin A1C [facility] Start: 2021 Screening for malignant neoplasm of cervix HPV Testing [facility] Start: 2012 Screening for malignant neoplasm of cervix [facility] Start: 2010 Hepatitis B Vaccine (1 of 3 - 19+ 3-dose series) Hepatitis B Vaccine (1 of 3 - 19+ 3-dose series) [facility] Start: 2010 Urine microalbumin profile DTaP,Tdap,Td Vaccine (1 - Tdap) [facility] Start: 2009 Annual PCP Team Chronic Disease Visit Annual PCP Team Chronic Disease Visit [facility] Start: 2009 BP Controlled (<130/80) BP Controlled (<130/80) [facility] in Start: 2009 Hepatitis C screening Hepatitis C Screening [facility] Start: 2009 HIV screening HIV Screening [facility] Start: 2001 Glaucoma screening Diabetes: Retinopathy Screening [facility] Start: 1997 Pneumococcal vaccination Pneumococcal Vaccine (1 of 2 - PCV) [facility] Start: 02-02-1992 Covid-19 Vaccine (#1) Covid-19 Vaccine (#1) [facility] Start: 1991 Hepatitis B Vaccine (1 of 3 - 3-dose series) Hepatitis B Vaccine (1 of 3 - 3-dose series) [facility] Aldosterone [Mass/ti me] in 24 hour Urine ALDOSTERONE 24 HR, URINE Lab Routine Adenoma of left adrenal gland Ordered: 09/06/2023 [facility] Work Phone: Comment on above: Ordered: 09/06/2023 CATECHOLAMINES FRACTIONATED, URINE FREE CATECHOLAMINES FRACTIONATED, URINE FREE Lab Routine Adenoma of left adrenal gland Ordered: 09/06/2023 [facility] Work Phone: Comment on above: Ordered: 09/06/2023 CONFIRM BLOOD TYPE CONFIRM BLOOD TYPE Blood Bank Routine Adenoma of left adrenal gland 11/14/2023 10:37 AM EDT [facility] Work Phone: CREAT CLEAR 24 HOUR CREAT CLEAR 24 HOUR Lab Routine Adenoma of left adrenal gland Ordered: 09/06/2023 [facility] Work Phone: Comment on above: Ordered: 09/06/2023 CREATININE BLD CREATININE BLD L ab Routine Adenoma of left adrenal gland Ordered: 09/06/2023 [facility] Work Phone: Comment on above: Ordered: 09/06/2023 CREATININE CLEARANCE , UR 24HR CREATININE CLEARANCE, UR 24HR Lab Routine Adenoma of left adrenal gland Ordered: 09/06/2023 [facility] Work Phone: Comment on above: Ordered: 09/06/2023 End: 12-05-2024 ECG COMPLETE ECG COMPLETE ECG Routine Pre-op evaluation Iron deficiency Migraine with aura and without status migrainosus, not intractable 1 Occurrences starting 12/06/2023 until 12/05/2024 [facility] Work Phone: Comment on above: 1 Occurrences starting 12/06/2023 until 12/05/2024 Guidance for venous sampling of Vein IR VENOUS SAMPLING Radiology Routine Adenoma of left adrenal gland Ordered: 09/12/2023 [facility] Work Phone: Comment on above: Ordered: 09/12/2023 End: 12-12-2024 Magnesium [Mass/volume] in Serum or Plasma MAGNESIUM Lab Routine Chronic hypokalemia 2x per week for 12 Occurrences starting 12/13/2023 until 12/12/2024 [facility] Work Phone: Comment on above: 2x per week for 12 Occurrences starting 12/13/2023 until 12/12/2024 METANEPHRINES 24H UR METANEPHRIN ES 24H UR Lab Routine Adenoma of left adrenal gland Ordered: 09/06/2023 [facility] Work Phone: Comment on above: Ordered: 09/06/2023 Patient Education Abdominal Pain, Adult E D [facility] Work Phone: Patient referral [facility] Work Phone: REFER FOR ADMIT INTERVIEW REFER FOR ADMIT INTERVIEW Procedures Routine Adenoma of left adrenal gland Ordered: 11/12/2023 [facility] Work Phone: Comment on above: Ordered: 11/12/2023 End: 12-12-2024 Renal function 2000 panel - Serum or Plasma RENAL FUNCTION PANEL Lab STAT Chronic hypokalemia 2x per week for 12 Occurrences starting 12/13/2023 until 12/12/2024 [facility] Comment on above: 2x per week for 12 Occurrences starting 12/13/2023 until 12/12/2024 TYPE AND SCREEN,30 DAY TYPE AND SCREEN,30 DAY Blood Bank Routine Adenoma of left adrenal gland 11/14/2023 10:36 AM EDT [facility] Work Phone: URINE FREE CORTISOL BY LC-MS/MS URINE FREE CORTISOL BY LC-MS/MS Lab Routine Adenoma of left adrenal gland Ordered: 09/06/2023 [facility] Work Phone: Comment on above: Ordered: 09/06/2023 [facility] Immunizations Immunization Date Immunization Notes Care Provider Nicolas rivas NEGATED: Highlighted row has not occurred!05-04-2024 influenza virus vaccine, unspecified formulation Kvng Marie [facility] Payers Date Payer Category Payer Self-pay [id number] 2016 Medicaid [id number] 2016 Medicaid (Managed Care) [facility] MEDICAID [id number] 1991 Unknown [id number] 2.16.840.1.269834.3.579.2. 593 1991 Unknown [id number] 2.16.840.1.173002.3.579.2. 593 1991 Unknown [id number] 2.16.840.1.364651.3.579.2. 593 1991 Unknown [id number] 2.16.840.1.068342.3.579.2. 593 1991 Unknown [id number] 2.16.840.1.859631.3.579.2. 593 1991 Unknown [id number] 2.16.840.1.150113.3.579.2. 356 1991 Unknown [id number] 2.16.840.1.149756.3.579.2. 356 1991 Unknown [id number] 2.16.840.1.690867.3.579.2. 727 1991 Unknown [id number] 2.16.840.1.659775.3.579.2. 727 1991 Unknown [id number] 2.16.840.1.329172.3.579.2. 727 1991 Unknown [id number] 2.16.840.1.786536.3.579.2. 727 1991 Unknown [id number] 2.16.840.1.307130.3.579.2. 1259 1991 Unknown [id number] 2.16.840.1.021510.3.579.2. 9 1991 Unknown [id number] 2.16.840.1.600926.3.579.2. 1259 1991 Unknown [id number] 2.16.840.1.887957.3.579.2. 1259 1991 Unknown [id number] 2.16.840.1.168235.3.579.2. 1258 1991 Unknown [id number] 2.16.840.1.578905.3.579.2. 9 1991 Unknown [id number] 2.16.840.1.813170.3.579.2. 9 1991 Unknown [id number] 2.16.840.1.522206.3.579.2. 1259 1991 Unknown [id number] 2.16.840.1.761003.3.579.2. 1259 1991 Unknown [id number] 2.16.840.1.553008.3.579.2. 1258 1991 Unknown [id number] 2.16.840.1.368058.3.579.2. 1259 1991 Unknown [id number] 2.16.840.1.017692.3.579.2. 1259 1991 Unknown [id number] 2.16.840.1.203242.3.579.2. 1258 1991 Unknown [id number] 2.16.840.1.255479.3.579.2. 1258 1991 Unknown [id number] 2.16.840.1.086223.3.579.2. 1258 1991 Unknown [id number] 2.16.840.1.254915.3.579.2. 1258 1991 Unknown [id number] 2.16.840.1.125980.3.579.2. 1258 1991 Unknown [id number] 2.16.840.1.645537.3.579.2. 1258 1991 Unknown [id number] 2.16.840.1.640339.3.579.2. 1258 1991 Unknown [id number] 2.16.840.1.204984.3.579.2. 1258 1991 Unknown [id number] 2.16.840.1.086580.3.579.2. 1258 1991 Unknown [id number] 2.16.840.1.232739.3.579.2. 1258 1991 Unknown [id number] 2.16.840.1.122791.3.579.2. 1258 1991 Unknown [id number] 2.16.840.1.094908.3.579.2. 1258 1991 Unknown [id number] 2.16.840.1.492894.3.579.2. 1258 1991 Unknown [id number] 2.16.840.1.124432.3.579.2. 1258 1991 Unknown [id number] 2.16.840.1.199378.3.579.2. 9 1991 Unknown [id number] 2.16.840.1.524517.3.579.2. 1258 1991 Unknown [id number] 2.16.840.1.274330.3.579.2. 1259 1991 Unknown [id number] 2.16.840.1.022381.3.579.2. 9 1991 Unknown [id number] 2.16.840.1.450781.3.579.2. 1259 1991 Unknown [id number] 2.16.840.1.259732.3.579.2. 1259 1991 Unknown [id number] 2.16.840.1.923818.3.579.2. 1259 1991 Unknown [id number] 2.16.840.1.986856.3.579.2. 9 1991 Unknown [id number] 2.16.840.1.852167.3.579.2. 9 1991 Unknown [id number] 2.16.840.1.455979.3.579.2. 9 1991 Unknown [id number] 2.16.840.1.722086.3.579.2. 1259 1991 Unknown [id number] 2.16.840.1.938243.3.579.2. 9 1991 Unknown [id number] 2.16.840.1.261700.3.579.2. 1259 1991 Unknown [id number] 2.16.840.1.728049.3.579.2. 1259 1991 Unknown [id number] 2.16.840.1.221380.3.579.2. 1259 1991 Unknown [id number] 2.16.840.1.564274.3.579.2. 9 1991 Unknown [id number] 2.16.840.1.674219.3.579.2. 1259 1991 Unknown [id number] 2.16.840.1.491888.3.579.2. 9 1991 Unknown [id number] 2.16.840.1.916891.3.579.2. 1259 1991 Unknown [id number] 2.16.840.1.317472.3.579.2. 1259 1991 Unknown [id number] 2.16.840.1.576866.3.579.2. 1259 1991 Unknown [id number] 2.16.840.1.558119.3.579.2. 1259 1991 Unknown [id number] 2.16.840.1.904151.3.579.2. 1259 1991 Unknown [id number] 2.16.840.1.585784.3.579.2. 1259 1991 Unknown [id number] 2.16.840.1.574781.3.579.2. 1259 1959 Medicaid [id number] Unknown [facility] Unknown [facility] [id number] Unknown [id number] 2.16.840.1.032913.3.579.2. 531 Unknown [id number] 2.16.840.1.303230.3.579.2. 531 Social History Date Type Detail Facility Start: 01-05-2020 End: 02-26-2024 No illicit drug use No illicit drug use [place] [address] DO Work Phone: Comment on above: quit 2021; Start: 11-09-2019 End: 02-21-2024 Tobacco smoking status IDIS Smoker (finding) [facility] Start: 1990 Sex Assigned At Female [facility] Start: 01-05-2020 End: 02-26-2024 Sex Assigned At [facility] [employer] Other Start: 01-05-2020 Tobacco smoking status IDIS Never smoked tobacco [facility] Start: 01-05-2020 End: 06-04-2024 Tobacco use and exposure Smokeless tobacco non-user [facility] Start: 01-05-2020 End: 02-12-2024 Alcohol intake Current drinker of alcohol (finding) [facility] National Score (1-100), lower number is lower risk 59 [facility] Start: 1990 Sex Assigned At Not on file [facility] Start: 08-27-2023 Gender identity Identifies as female gender (finding) [facility] Start: 02-21-2023 End: 01-16-2024 Tobacco smoking status NHIS Ex-smoker [facility] End: 08-05-2022 History of tobacco use Cigarette Smoker [facility] Start: 08-15-2023 End: 06-04-2024 Alcohol intake Ex-drinker (finding) [facility] Start: 12-23-2022 Alcohol Comment 1-2 cans of soda silvestre ly [facility] Start: 09-10-2023 Alcohol Comment caffeine intak e: 1-2 cans of soda [facility] Start: 12-06-2023 End: 06-04-2024 Tobacco smoking status NHIS Smokes tobacco daily [facility] Start: 03-19-2024 End: 05-04-2024 Tobacco smoking status Heavy tobacco smoker (finding) [facility] Start: 06-04-2024 Tobacco Comment Cessation discussed [facility] Start: 06-04-2024 Alcohol Comment caffeine intak e: 5 cans soda/daily [facility] Start: 04-25-2024 [facility] Functional Status Date Assessment Result Facility 05-04-2024 Functional Status N/A [facility] 03-19-2024 Functional Status N/A [facility] Clinical Notes 09-10-2022 to 06-04-2024 Chiquita Pineda RN - 06/04/2024 10:30 AM Tommie Kaplan NP - 05/24/2024 9:50 AM EDTTelephone Encounter - Eliot García DO - 05/19/2024 5:57 PM EDTPatient InstructionsPatient Instructions Note Date & Type Note Facility 06-04-2024 History of Present illness Narrative Name: Heidi Joy Date/Time of Service:06/04/2024 11:00 AM :1990 Age: 33 y.o. Chief Complaint Chief Complaint Patient presents with Initial Visit Heidi Joy is a 33 y.o. at 7w5d with a working estimated date of delivery of 01/16/2025, by Last Menstrual Period who presents for an initial visit. OB History Para Term AB Living 1 SAB IAB Ectopic Multiple Live Births # Outcome Date GA Lbr Zane/2nd Weight Sex Type Anes PTL Lv 1 Current Past Medical / Surgical History Past Medical History: Diagnosis Date 1st degree AV block Abnormal ECG 07/31/2022 Bipolar 1 disorder (CMS/HCC) Depression (CMS/HCC) Diabetes (CMS/HCC) Patient reports no longer diabetic Fracture of left foot Glioma (CMS/HCC) 07/21/2018 Glioma of brain ([facility]/HCC) Hospitalization or health care facility admission within last 6 months 09/2022 [facility] Hypokalemia (2.9, 2.4) Sent by 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 Hx of being hospitalized 08/19/2018 [facility] - Discharged 08/22/2018 Brain tumor Hx of being hospitalized 06/2018 [facility] admit 06/10/2018 discharged HTN , Brain tumor Hypertension (CMS/HCC) Kidney stones Malignant brain tumor (CMS/HCC) 08/2018 malignant brain tumor right frontal area, Dr. 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 Otalgia of right ear PCOS (polycystic ovarian syndrome) Plantar fasciitis of left foot Past Surgical History: Procedure Laterality Date ADRENALECTOMY 01/2024 DILATION AND CURETTAGE 02/2020 dc with hysteroscopy ESOPHAGOGASTRODUODENOSCOPY 2021 EXCISION INGROWN TOENAIL 10/2021 ingrown toe nails GASTRIC BYPASS 2022 IR INTERVENTION VENOUS SAMPLING 10/23/2023 IR INTERVENTION VENOUS SAMPLING OTHER SURGICAL HISTORY 08/2018 r/o brain tumor (glioblastoma?) [facility] ANKLE SCOPE,PLANTAR FASCIOTOMY 03/2017 UT CRANIECT/CRANIOT W/WO DURAPLASTY W/LOBECTOMY 2019 removal - right frontal lobe UT ENDOSCOPIC PLANTAR FASCIOTOMY Right 2022 Right EPF Family History Family History Problem Relation Name Age of Onset Diabetes Mother Hypertension Mother Thyroid cancer Mother Depression Mother Diabetes Father Heart disease Father Hypertension Father Diabetes Brother Hypertension Brother Depression Brother Lung cancer Maternal Grandmother Cancer Maternal Grandfather Lung cancer Paternal Grandmother Melanoma Neg Hx Social History reports that she has been smoking cigarettes. She has never used smokeless tobacco. She reports that she does not currently use alcohol. She reports current drug use. Drug: Marijuana. Social History Tobacco Use Smoking Status Every Day Current packs/day: 0.00 Types: Cigarettes Last attempt to quit: 08/05/2022 Years since quittin.8 Smokeless Tobacco Never Tobacco Comments Cessation discussed MEDICATIONS: Current Outpatient Medications on File Prior to Visit Medication Sig Dispense Refill multivitamin () 27-0.8 MG tablet Take 1 tablet by mouth Daily 90 tablet 2 ondansetron ODT (Zofran-ODT) 4 MG disintegrating tablet Take 1 tablet (4 mg) by mouth every 8 (eight) hours if needed for nausea or vomiting 30 tablet 1 pyridoxine (Vitamin B-6) 50 MG tablet Take 1 tablet (50 mg) by mouth Daily 90 tablet 3 [DISCONTINUED] busPIRone (Buspar) 10 MG tablet Take 1 tablet (10 mg) by mouth in the morning and 1 tablet (10 mg) before bedtime. (Patient not taking: Reported on 05/24/2024) 180 tablet 1 [DISCONTINUED] cetirizine (ZyrTEC ALLERGY) 10 MG tablet Take 1 tablet (10 mg) by mouth Daily (Patient not taking: Reported on 05/24/2024) 30 tablet 11 [DISCONTINUED] Dextromethorphan-guaiFENesin (Mucinex DM) 30-600 MG tablet sustained-release 12 hour Take 1 tablet by mouth in the morning and 1 tablet before bedtime. (Patient not taking: Reported on 05/24/2024) 60 tablet 2 [DISCONTINUED] famotidine (Pepcid) 40 MG tablet TAKE 1 TABLET (40 MG) BY MOUTH IN THE MORNING AND AT BEDTIME (Patient not taking: Reported on 05/24/2024) 180 tablet 1 [DISCONTINUED] omeprazole (PriLOSEC) [address] capsule Take 40 mg by mouth in the morning and 40 mg before bedtime. (Patient not taking: Reported on 05/24/2024) [DISCONTINUED] polyethylene glycol, PEG, 3350 (Glycolax) 17 GM/SCOOP powder Take 17 g by mouth Daily (Patient not taking: Reported on 05/24/2024) 850 g 3 [DISCONTINUED] sucralfate (Carafate) 1 GM/10ML suspension Take 10 mL (1 g) by mouth 3 (three) times a day as needed (abdominal tenderness, reflux symptoms) (Patient not taking: Reported on 05/24/2024) 460 mL 1 No current facility-administered medications on file prior to visit. Allergies No Known Allergies Patient reports nausea and no vomiting. Discussed smaller meals, keira products, OTC Vitamin B6 50mg BID and Unisom 25mg BID Patient reports taking daily vitamins. Genetic and Chromosomal testing discussed. Patient expressing interest in having these drawn. Discussed [facility] hand out on how to check insurance. Patient verbalizes understanding. Handout provided to patient. Advised patient to wait until she is 11-12 weeks , had her first appointment with [facility] and that she has checked her insurance with [facility] to know her financial responsibility. Patient verbalizes understanding. Advised patient it is her responsibility to check insurance for financial responsibility. Patient verbalizes understanding. Orders Placed. Last PAP: patient unsure of last PAP ASSESSMENT / PLAN Labs Ordered. Patient handed printed copy of orders to take to [facility] to have drawn today. Appointments scheduled for [facility]US 06/17 and with [facility] 07/01. 06/04/2024 11:00 AM documented in this encounter [facility] 05-24-2024 History of Present illness Narrative Images from the original note were not included. HPI: Historian of HPI: patient Heidi Joy is a 33 y.o. female who presents today to the Urgent Care with the following complaints and denials which have been present for 4 day(s) C/O Denies Symptom Comments [x] [] Runny Nose [] [x] Difficulty Swallowing [x] [] Sore Throat Scratchy [x] [] Cough [] [] Ear Pain [x] [] Fever [x] [] Chills [x] [] Nasal Congestion [] [x] Myalgia [] [x] Sinus Pain [] [x] Sinus Pressure Additional Comments: Pt also c/o headache. Pt is 4-5 weeks . Pt agreeable to testing if provider finds it necessary after being seen. Visit Vitals LMP 08/10/2023 (Exact Date) OB Status Smoking Status Former ROS: A complete system ROS was performed and negative aside from the pertinent positives noted in the HPI and PE. Physical Exam Constitutional: Appearance: She is ill-appearing. HENT: Head: Normocephalic. Right Ear: Tympanic membrane normal. Left Ear: Tympanic membrane normal. Nose: Rhinorrhea present. Mouth/Throat: Mouth: Mucous membranes are moist. Pharynx: Posterior oropharyngeal erythema present. Eyes: Pupils: Pupils are equal, round, and reactive to light. Cardiovascular: Rate and Rhythm: Normal rate and regular rhythm. Pulmonary: Effort: Pulmonary effort is normal. Breath sounds: Normal breath sounds. Lymphadenopathy: Cervical: No cervical adenopathy. Skin: General: Skin is warm and dry. Neurological: Mental Status: She is alert and oriented to person, place, and time. Psychiatric: Mood and Affect: Mood normal. IH Testing: The following tests were performed Rapid Flu Test Rapid COVID Test SEE TEST(S) ORDERS FOR RESULTS Assessment/Plan 1. Pharyngitis, unspecified etiology Negative COVID and Flu test - STATUS COVID-19/FLU 2. Viral illness (Primary) Pt advised they have a viral illness. Patient is recently . Discussed taking Tylenol. I do want her to call her OB tomorrow to discuss any other OTC medications she may take safely. She agrees. Advised to call or RTO if worsening or not improving as expected. Discussed expectations (viral infections such as colds/ flus do not respond to antibiotics and typically do not begin to improve until 7-10 days into the illness). Follow up if symptoms worsen or fail to improve. Rea Kaplan NP documented in this encounter [facility] 05-19-2024 Telephone encounter Note error [facility] 05-19-2024 Miscellaneous Notes error documented in this encounter [facility] 05-19-2024 History of Present illness Narrative Images from the original note were not included. SUBJECTIVE: HPI: Heidi Joy is a 33 y.o. female who presents with chief complaint of No chief complaint on file. Patient presents after pos home test for confirmation. I have reviewed and reconciled the history and medication list with the patient today. Depression: Not at risk (02/26/2024) PHQ-2 PHQ-2 Score: 0 reports that she quit smoking about 21 months ago. Her smoking use included cigarettes. She has never used smokeless tobacco. She reports that she does not currently use alcohol. She reports that she does not currently use drugs. OBJECTIVE: 11/28/2023 9:42 AM 12/12/2023 2:22 PM 01/16/2024 9:22 AM 02/13/2024 3:15 PM 02/20/2024 11:26 AM 02/26/2024 1:30 PM 05/07/2024 8:34 AM Vitals BMI 29.38 kg/m2 29.47 kg/m2 28.08 kg/m2 28.08 kg/m2 27.66 kg/m2 28.89 kg/m2 28.08 kg/m2 BSA (m2) 1.96 m2 1.96 m2 1.92 m2 1.92 m2 1.9 m2 1.94 m2 1.92 m2 Systolic 180 178 156 134 120 126 120 Diastolic 96 96 92 88 70 76 68 Heart Rate 53 84 83 76 64 81 68 SpO2 99 % 99 % 98 % 98 % 98 % 100 % Temp 97 F 97.9 F 97 F 97.9 F 98.5 F 97.7 F 97.9 F Height (in) 5' 6 5' 6 5' 6 5' 6 5' 6 5' 6 5' 6 Weight (lb) 182 182.6 174 174 171.4 179 174 Visit Report Report Report Report Report Report Report Report Physical Exam Constitutional: General: She is not in acute distress. Appearance: She is not ill-appearing or toxic-appearing. HENT: Head: Normocephalic. Eyes: Conjunctiva/sclera: Conjunctivae normal. Pulmonary: Effort: Pulmonary effort is normal. No respiratory distress. Breath sounds: No stridor. Abdominal: General: Abdomen is flat. Tenderness: There is no abdominal tenderness. Musculoskeletal: General: No swelling or signs of injury. Normal range of motion. Cervical back: Normal range of motion. Skin: General: Skin is warm and dry. Neurological: General: No focal deficit present. Mental Status: She is alert. Mental status is at baseline. Psychiatric: Mood and Affect: Mood normal. Behavior: Behavior normal. Thought Content: Thought content normal. Judgment: Judgment normal. Recent Results (from the past 4 weeks) POCT , urine Collection Time: 05/19/24 11:01 AM Result Value Ref Range Preg Test, Ur Positive ASSESSMENT AND PLAN: Assessment/Plan Diagnoses and all orders for this visit: , unspecified gestational age - HCG, quantitative, ; Future Missed menses - POCT , urine - HCG, quantitative, ; Future Pos urine hcg, quant ordered Discussed cessation of a few medication which are contraindicated during (clonazepam, ambien, latuda) and she was messaged with this in writing. Follow up with OB Greater than 30 minutes was spent in the care of this patient on the day of the visit by the physician including record review, examination, discussion of treatment plan, documentation, post visit communication. Patient Active Problem List Diagnosis Generalized anxiety disorder (CMS/HCC) Bipolar affective disorder, currently depressed, mild (CMS/HCC) Adrenal mass (CMS/HCC) Anxiety Cannabis abuse Depressive disorder (CMS/HCC) Diabetes mellitus (CMS/HCC) Dysmenorrhea First degree AV block Gastroesophageal reflux disease Generalized headache Iron deficiency Irregular menstruation Irritable bowel syndrome with diarrhea Major depressive disorder, single episode, moderate (HCC) (CMS/HCC) Excessive and frequent menstruation Microcytic anemia Migraine with aura and without status migrainosus, not intractable (CMS/HCC) Mixed bipolar affective disorder, moderate (CMS/HCC) Morbid obesity (CMS/HCC) Neuropathy Patellofemoral pain syndrome of left knee PCOS (polycystic ovarian syndrome) Hidradenitis suppurativa of right axilla Plantar fasciitis Primary hypertension (CMS/HCC) Primary osteoarthritis of left knee Insomnia related to another mental disorder Psychophysiological insomnia Seasonal allergic rhinitis Sinusitis Type 2 diabetes mellitus without complication, without long-term current use of insulin (CMS/HCC) Adenoma of left adrenal gland Diarrhea Hypokalemia Nausea Primary hyperaldosteronism (CMS/HCC) History of bariatric surgery Acute hypokalemia Oligodendroglioma of brain (CMS/HCC) Hyperaldosteronism (CMS/HCC) Abdominal pain History of gastric bypass History of hypokalemia Nicotine use disorder Nicotine dependence Obstructive sleep apnea syndrome RUQ pain Secondary adrenal insufficiency (CMS/HCC) Tobacco use Past Medical History: Diagnosis Date 1st degree AV block Abnormal ECG 07/31/2022 Bipolar 1 disorder (CMS/HCC) Depression (CMS/HCC) Diabetes (CMS/HCC) Fracture of left foot Glioma (CMS/HCC) 07/21/2018 Glioma of brain (CMS/HCC) Hospitalization or health care facility admission within last 6 months 09[place] [facility] [place]okalemia (2.9, 2.4) Sent by 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 Hx of being hospitalized 08/19/2018 [facility] - Discharged 08/22/2018 Brain tumor Hx of being hospitalized 06/2018 [facility] admit 06/10/2018 discharged HTN , Brain tumor Hypertension (CMS/HCC) Kidney stones Malignant brain tumor (CMS/HCC) 08/2018 malignant brain tumor right frontal area, Dr. Lema Malignant neoplasm of brain ([facility]/HCC) 06/17/2018 Menorrhagia with irregular cycle 02/21/2023 Oligodendroglioma (CMS/HCC) 2017 Otalgia of right ear PCOS (polycystic ovarian syndrome) Plantar fasciitis of left foot documented in this encounter [facility] 05-07-2024 History of Present illness Narrative Images from the original note were not included. SUBJECTIVE: HPI: Heidi Joy is a 33 y.o. female who presents with chief complaint of No chief complaint on file. Pt presents to discuss her anxiety medication. Pt would like to start her bipolar medication back up. I have reviewed and reconciled the history and medication list with the patient today. Depression: Not at risk (02/26/2024) PHQ-2 PHQ-2 Score: 0 reports that she quit smoking about 21 months ago. Her smoking use included cigarettes. She has never used smokeless tobacco. She reports that she does not currently use alcohol. She reports that she does not currently use drugs. OBJECTIVE: 11/28/2023 9:42 AM 12/12/2023 2:22 PM 01/16/2024 9:22 AM 02/13/2024 3:15 PM 02/20/2024 11:26 AM 02/26/2024 1:30 PM 05/07/2024 8:34 AM Vitals BMI 29.38 kg/m2 29.47 kg/m2 28.08 kg/m2 28.08 kg/m2 27.66 kg/m2 28.89 kg/m2 28.08 kg/m2 BSA (m2) 1.96 m2 1.96 m2 1.92 m2 1.92 m2 1.9 m2 1.94 m2 1.92 m2 Systolic 180 178 156 134 120 126 120 Diastolic 96 96 92 88 70 76 68 Heart Rate 53 84 83 76 64 81 68 SpO2 99 % 99 % 98 % 98 % 98 % 100 % Temp 97 F 97.9 F 97 F 97.9 F 98.5 F 97.7 F 97.9 F Height (in) 5' 6 5' 6 5' 6 5' 6 5' 6 5' 6 5' 6 Weight (lb) 182 182.6 174 174 171.4 179 174 Visit Report Report Report Report Report Report Report Report Physical Exam Constitutional: General: She is not in acute distress. Appearance: She is not ill-appearing or toxic-appearing. HENT: Head: Normocephalic. Eyes: Conjunctiva/sclera: Conjunctivae normal. Pulmonary: Effort: Pulmonary effort is normal. No respiratory distress. Breath sounds: No stridor. Abdominal: General: Abdomen is flat. Tenderness: There is no abdominal tenderness. Musculoskeletal: General: No swelling or signs of injury. Normal range of motion. Cervical back: Normal range of motion. Skin: General: Skin is warm and dry. Neurological: General: No focal deficit present. Mental Status: She is alert. Mental status is at baseline. Psychiatric: Mood and Affect: Mood normal. Behavior: Behavior normal. Thought Content: Thought content normal. Judgment: Judgment normal. Recent Results (from the past 672 hour(s)) RENAL FUNCTION PANEL Collection Time: 04/10/24 8:58 AM Result Value Ref Range Albumin 4.2 3.9 - 4.9 g/dL Calcium 8.8 8.5 - 10.2 mg/dL Phosphorus 3.9 2.7 - 4.8 mg/dL Glucose 142 (H) 74 - 99 mg/dL BUN 33 (H) 7 - 21 mg/dL Creatinine 0.98 (H) 0.58 - 0.96 mg/dL Sodium 138 136 - 144 mmol/L POTASSIUM, SERUM 4.3 3.7 - 5.1 mmol/L Chloride 111 (H) 98 - 107 mmol/L CO2 18 (L) 22 - 30 mmol/L Anion Gap 9 8 - 15 mmol/L Estimated Glomerular Filtration Rate 79 >=60 mL/min/1.73m [facility] RENAL FUNC 2000 PNL SERPL Collection Time: 04/10/24 8:58 AM Result Value Ref Range [facility] ALBUMIN SERPL-MCNC 4.2 3.9 - 4.9 g/dL [facility] CALCIUM SERPL-[facility] 8.8 8.5 - 10.2 mg/dL [facility] PHOSPHATE SERPL-[facility] 3.9 2.7 - 4.8 mg/dL [facility] GLUCOSE SERPL-MCNC 142 (H) 74 - 99 mg/dL [facility] BUN SERPL-MCNC 33 (H) 7 - 21 mg/dL [facility] CREAT SERPL-[facility] 0.98 (H) 0.58 - 0.96 mg/dL [facility] SODIUM SERPL-SCNC 138 136 - 144 mmol/L [facility] POTASSIUM SERPL-SCNC 4.3 3.7 - 5.1 mmol/L [facility] CHLORIDE SERPL-SCNC 111 (H) 98 - 107 mmol/L [facility] CO2 SERPL-SCNC 18 (L) 22 - 30 mmol/L [facility] ANION GAP SERPL-SCNC 9 8 - 15 mmol/L [facility] CREATININE + EGFR PNL SERPLBLD 79 >=60 mL/min/1.73m??? [facility] CORTISOL, BASAL Collection Time: 04/10/24 8:58 AM Result Value Ref Range [facility] CORTIS BS SERPL-MCNC 12.4 4.8 - 19.5 ug/dL [facility] DIRECT RENIN PLASMA Collection Time: 04/10/24 8:58 AM Result Value Ref Range [facility] DIRECT RENIN 21.1 4.2 - 52.2 pg/mL [facility] PATIENT UPRIGHT OR SUPINE Upright [facility] ALDOST SERPL-MCNC Collection Time: 04/10/24 8:58 AM Result Value Ref Range [facility] ALDOST SERPL-MCNC 3.4 0.0-<35.4 ng/dL [facility] CORTISOL, 30 MIN Collection Time: 04/10/24 9:43 AM Result Value Ref Range [facility] CORTIS 30M P CHAL SERPL-MCNC 19.7 ug/dL [facility] CORTISOL, 60 MIN Collection Time: 04/10/24 10:18 AM Result Value Ref Range [facility] CORTIS 1H P CHAL SERPL-MCNC 23.7 ug/dL [facility] INTERPRETATION (ACTHST) RENAL FUNCTION PANEL Collection Time: 04/10/24 11:44 AM Result Value Ref Range Albumin 4.4 3.9 - 4.9 g/dL Calcium 9.0 8.5 - 10.2 mg/dL Phosphorus 3.4 2.7 - 4.8 mg/dL Glucose 185 (H) 74 - 99 mg/dL BUN 37 (H) 7 - 21 mg/dL Creatinine 1.00 (H) 0.58 - 0.96 mg/dL Sodium 136 136 - 144 mmol/L POTASSIUM, SERUM 4.5 3.7 - 5.1 mmol/L Chloride 106 98 - 107 mmol/L CO2 20 (L) 22 - 30 mmol/L Anion Gap 10 8 - 15 mmol/L Estimated Glomerular Filtration Rate 77 >=60 mL/min/1.73m MAGNESIUM Collection Time: 04/10/24 11:44 AM Result Value Ref Range Magnesium(Mg) 1.9 1.7 - 2.3 mg/dL [facility] RENAL FUNC 2000 PNL SERPL Collection Time: 04/10/24 11:44 AM Result Value Ref Range [facility] ALBUMIN SERPL-MCNC 4.4 3.9 - 4.9 g/dL [facility] CALCIUM SERPL-MCNC 9.0 8.5 - 10.2 mg/dL [facility] PHOSPHATE SERPL-MCNC 3.4 2.7 - 4.8 mg/dL [facility] GLUCOSE SERPL-MCNC 185 (H) 74 - 99 mg/dL [facility] BUN SERPL-MCNC 37 (H) 7 - 21 mg/dL [facility] CREAT SERPL-MCNC 1.00 (H) 0.58 - 0.96 mg/dL [facility] SODIUM SERPL-SCNC 136 136 - 144 mmol/L [facility] POTASSIUM SERPL-SCNC 4.5 3.7 - 5.1 mmol/L [facility] CHLORIDE SERPL-SCNC 106 98 - 107 mmol/L [facility] CO2 SERPL-SCNC 20 (L) 22 - 30 mmol/L [facility] ANION GAP SERPL-SCNC 10 8 - 15 mmol/L [facility] CREATININE + EGFR PNL SERPLBLD 77 >=60 mL/min/1.73m??? [facility] MAGNESIUM SERPL-MCNC Collection Time: 04/10/24 11:44 AM Result Value Ref Range [facility] MAGNESIUM SERPL-MCNC 1.9 1.7 - 2.3 mg/dL ASSESSMENT AND PLAN: Assessment/Plan Diagnoses and all orders for this visit: Bipolar affective disorder, currently depressed, mild (CMS/HCC) - lurasidone (Latuda) 40 MG tablet; Take 1 tablet (40 mg) by mouth in the evening. Take with meals LUISITO (generalized anxiety disorder) (CMS/HCC) - busPIRone (Buspar) 10 MG tablet; Take 1 tablet (10 mg) by mouth in the morning and 1 tablet (10 mg) before bedtime. Irritable bowel syndrome with both constipation and diarrhea - polyethylene glycol, PEG, 3350 (Glycolax) 17 GM/SCOOP powder; Take 17 g by mouth Daily Anastomotic ulcer Discussed treatment as above for anxiety/depression with Bipolar disorder. Discussed ER/return precautions as well as appropriate follow up interval here. Patient denies any SI/HI and feels comfortable with treatment plan. Following with GI Patient Active Problem List Diagnosis Generalized anxiety disorder (CMS/HCC) Bipolar affective disorder, currently depressed, mild (CMS/HCC) Adrenal mass (CMS/HCC) Anxiety Cannabis abuse Depressive disorder (CMS/HCC) Diabetes mellitus (CMS/HCC) Dysmenorrhea First degree AV block Gastroesophageal reflux disease Generalized headache Iron deficiency Irregular menstruation Irritable bowel syndrome with diarrhea Major depressive disorder, single episode, moderate (HCC) (CMS/HCC) Excessive and frequent menstruation Microcytic anemia Migraine with aura and without status migrainosus, not intractable (CMS/HCC) Mixed bipolar affective disorder, moderate (CMS/HCC) Morbid obesity (CMS/HCC) Neuropathy Patellofemoral pain syndrome of left knee PCOS (polycystic ovarian syndrome) Hidradenitis suppurativa of right axilla Plantar fasciitis Primary hypertension (CMS/HCC) Primary osteoarthritis of left knee Insomnia related to another mental disorder Psychophysiological insomnia Seasonal allergic rhinitis Sinusitis Type 2 diabetes mellitus without complication, without long-term current use of insulin (CMS/HCC) Adenoma of left adrenal gland Diarrhea Hypokalemia Nausea Primary hyperaldosteronism (CMS/HCC) History of bariatric surgery Acute hypokalemia Oligodendroglioma of brain (CMS/HCC) Hyperaldosteronism (CMS/HCC) Abdominal pain History of gastric bypass History of hypokalemia Nicotine use disorder Nicotine dependence Obstructive sleep apnea syndrome RUQ pain Secondary adrenal insufficiency (CMS/HCC) Tobacco use Past Medical History: Diagnosis Date 1st degree AV block Abnormal ECG 07/31/2022 Bipolar 1 disorder (CMS/HCC) Depression (CMS/HCC) Diabetes (CMS/HCC) Fracture of left foot Glioma (CMS/HCC) 07/21/2018 Glioma of brain (CMS/HCC) Hospitalization or health care facility admission within last 6 months 09/2022 [facility] [place]okalemia (2.9, 2.4) Sent by 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 Hx of being hospitalized 08/19/2018 [facility] - Discharged 08/22/2018 Brain tumor Hx of being hospitalized 06/2018 [facility] admit 06/10/2018 discharged HTN , Brain tumor Hypertension (CMS/HCC) Kidney stones Malignant brain tumor ([facility]/HCC) 08/2018 malignant brain tumor right frontal area, Dr. 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 Otalgia of right ear PCOS (polycystic ovarian syndrome) Plantar fasciitis of left foot documented in this encounter [facility] 04-10-2024 Note [facility] 04-10-2024 History of Present illness Narrative Patient ID with two (2) identifiers verified by: Name and Birthdate Allergies reviewed and updated: Yes Current pain intensity is 0 on a 0-10 pain scale. Any concerns about safety in the home/falls: Not at risk for falls The patient is here for an injection of Cortrosyn. Dose: 0/25mg Route: Intramuscular Given without incident. Site: left arm. documented in this encounter [facility] 04-09-2024 Telephone encounter Note Pt cancelled ACTH stim test on 04/08/2024 and rescheduled for 04/10/2024. Repended Cosyntropin CAM order below, Please advise. [facility] 04-09-2024 Miscellaneous Notes Pt cancelled ACTH stim test on 04/08/2024 and rescheduled for 04/10/2024. Repended Cosyntropin CAM order below, Please advise. documented in this encounter [facility] 02-13-2024 Telephone encounter Note Received message from Dr. Balderrama: Patient will taper hydrocortisone and be on her baseline doses for two weeks. Can you please do a ACTH stim test during the week of 04/06? She should not take any steroids for atleast 12 hrs prior to the test . Called pt, no answer/busy. Will try later/tomorrow. [facility] 02-13-2024 Miscellaneous Notes Received message from Dr. Balderrama: Patient will taper hydrocortisone and be on her baseline doses for two weeks. Can you please do a ACTH stim test during the week of 04/06? She should not take any steroids for atleast 12 hrs prior to the test . Called pt, no answer/busy. Will try later/tomorrow. documented in this encounter [facility] 02-12-2024 History of Present illness Narrative Endocrinology Metabolism [place] [facility] Mario Sullivan M.D. Section of Endocrine Surgery and Advanced Laparoscopic Surgery [address] [place] [address], [place] [id number] ENDOCRINE SURGERY POST-OPERATIVE FOLLOW-UP NOTE NAME: Heidi Joy CLINIC NO: [id number] : 1990 Endocrine Surgeon: Mario Sullivan MD CC: Adrenal Post-op HPI: Heidi Joy presents to the office today for a post-operative visit after undergoing robotic left transabdominal lateral adrenalectomy for primary hyperaldosteronism on 01/28/2024. The patient reports feeling well after surgery. Pain is controlled, patient is tolerating a diet and having bowel function. She is on tapering schedule. Patient was sent home with 30mg hydrocortisone AM and 20mg hydrocortisone PM. Bps before surgery 170s/180s - now 120s/80s. Was initially on 3 blood pressure medications now just with amlodipine. No K replacement therapy needed. Pathology was reviewed with the patient Pathology: FINAL DIAGNOSIS A. Adrenal gland, left, adrenalectomy: - Adrenal cortical adenoma (2.1 cm). Physical Exam: Gen: No acute distress, alert and oriented x4, and cooperative with interview and exam. Resp: non-labored breathing on Room air, no accessory muscle use Abdomen: soft, nontender, nondistended Incision: Surgical incision sites visualized. Each incision is clean, dry, and intact without evidence of hematoma or seroma, and are all healing well. Ext: No lower extremity edema was noted. Labs: POD1 ACTH 1.1 Cortisol 0.5 ACTH Stim Test Baseline 0.5 30-min 7.8 60-min 10.6 Assessment: In summary, Heidi Joy is doing well after robotic left transabdominal lateral adrenalectomy for primary hyperaldosteronism Plan: Will check labs today Will follow up with endocrinology Mario Sullivan MD 02/12/2024 documented in this encounter [facility] 02-12-2024 Note [facility] 02-12-2024 Note [facility] 02-12-2024 History of Present illness Narrative Endocrinology and Metabolism [place] FOLLOW UP VISIT Last visit: 08/25/2023 Documentation from previous note of previous visit was copied and pasted and has been reviewed and edited as appropriate and is current for today. Chief Complaint: follow-up, primary aldosteronism s/p History of Present Illness: Heidi Joy is a 33 year old female with PMHx of left adrenalectomy on 01/27/2024 with post-op secondary adrenal insufficiency and started on hydrocortisone 30mg-20mg daily. She first presented to Endocrinology in 08/2023 with complaints of interval increase in size of left adrenal adenoma from 8mm in 2019 to 18mm in 07/2023. At that time she was having hypokalemia requiring frequent infusions, she was taking two anti-hypertensive medications. Work-up revealed elevated jesus levels and suppressed renin levels. 1mg DST ruled out hypercortisolemia and plasma metanephrines were wnl. In 10/2023 she underwent AVS and lateralized to the left gland with a ratio of 35:1. Subsequently underwent left adrenalectomy in 01/2024, post-op period uncomplicated other than secondary AI. Surgical pathology was benign. Today patient reports she is feeling better, hypokalemia has resolved and she has not required any K infusion, supplements or spironolactone. Her current anti-hypertensive is only amlodipine 10mg daily. She does not check BP at home but in the officer her BP today was well controlled. She denies any acute complaints, continues to struggle with insomnia which is chronic. PAST MEDICAL HISTORY Diagnosis Date Kidney stones [...] Grandmother Social History Tobacco Use Smoking status: Every Day Packs/day: .5 Types: Cigarettes Smokeless tobacco: Never Vaping Use Vaping Use: Never used Substance Use Topics Alcohol use: Yes Drug use: Never Current Outpatient Medications Medication Sig amLODIPine (NORVASC) 10 mg tablet Take 1 tablet by mouth every afternoon. hydrocortisone (CORTEF) 10 mg tablet Take 3 tablets by mouth every morning AND 2 tablets every evening. (Patient not taking: Reported on 02/12/2024) LORazepam (ATIVAN) 1 mg tablet TAKE 1 - 2 TABLETS BY MOUTH PRIOR TO PROCEDURE (Patient not taking: Reported on 02/12/2024) busPIRone (BUSPAR) 10 mg tablet TAKE 1 TABLET (10 MG) BY MOUTH IN THE MORNING AND BEFORE BEDTIME (Patient not taking: Reported on 02/12/2024) gabapentin (NEURONTIN) 400 mg capsule 1 capsule. (Patient not taking: Reported on 02/12/2024) lamoTRIgine (LAMICTAL) 150 mg tablet Take 150 mg by mouth. (Patient not taking: Reported on 02/12/2024) lurasidone (LATUDA) 60 mg tab tablet Take 60 mg by mouth. (Patient not taking: Reported on 02/12/2024) REXULTI 1 mg tablet TAKE 1 TABLET BY MOUTH ONCE DAILY AT THE SAME TIME (Patient not taking: Reported on 02/12/2024) SUMAtriptan (IMITREX) 100 mg tablet TAKE 1 TAB AT MIGRAINE ONSET, MAY REPEAT IN 2 HOURS NEEDED, MAX 2 TABS IN 24 HOURS (Patient not taking: Reported on 02/12/2024) zolpidem (AMBIEN) 10 mg (Patient not taking: Reported on 02/12/2024) Ferrous Sulfate 27 mg iron tab Take by mouth twice daily. (Patient not taking: Reported on 02/12/2024) No current facility-administered medications for this visit. ALLERGIES No Known Allergies REVIEW OF SYSTEMS: Review of Systems Constitutional: Negative for night sweats and recent unintentional weight change. Eyes: Negative for visual disturbance. Respiratory: Negative for difficulty breathing. Cardiovascular: Negative for chest pain and leg swelling. Gastrointestinal: Negative for nausea and diarrhea. Musculoskeletal: Negative for myalgias. Neurological: Negative for dizziness and headaches. PHYSICAL EXAM: BP 120/81 Pulse 76 Ht 170.2 cm (5' 7 ) Wt 76.8 kg (169 lb 5 oz) LMP 01/20/2024 (Approximate) SpO2 98% BMI 26.52 kg/m Wt: 80.3 kg (177 lb 1.6 oz) BMI: 27.74 kg/(m^2) General appearance: well developed, NAD Eyes: No lid lag, no stare Heart: S1, S2 normal, no murmurs Lungs: CTABL LABS: Pre-op Work-up Latest Ref Rng 08/30/2023 09/06/2023 Protein, Total 6.3 - 8.0 g/dL 6.7 [...] ng/dL 236.1 Cortisol,ON DEX,Post <1.8 ug/dL 0.9 Post-op labs: Latest Ref [facility] 01/29/2024 WBC 3.70 - 11.00 k/uL 10.35 RBC 3.90 - 5.20 m/uL 4.67 Hemoglobin 11.5 - 15.5 g/dL 13.8 Hematocrit 36.0 - 46.0 % 41.0 MCV 80.0 - 100.0 fL 87.8 MCH 26.0 - 34.0 pg 29.6 MCHC 30.5 - 36.0 g/dL 33.7 RDW-CV 11.5 - 15.0 % 14.2 Platelet Count 150 - 400 k/uL 183 MPV 9.0 - 12.7 fL 12.5 Absolute nRBC <0.01 k/uL <0.01 Glucose 74 - 99 mg/dL 111 (H) BUN 7 - 21 mg/dL 24 (H) Creatinine 0.58 - 0.96 mg/dL 0.78 Sodium 136 - 144 mmol/L 138 Potassium 3.7 - 5.1 mmol/L 4.8 Chloride 98 - 107 mmol/L 105 CO2 22 - 30 mmol/L 20 (L) Anion Gap 8 - 15 mmol/L 13 Calcium 8.5 - 10.2 mg/dL 9.1 eGFR >=60 mL/min/1.73m 104 Direct Renin 4.2 - 52.2 pg/mL <2.1 (L) Patient Upright or Supine Upright Cortisol 60 min ug/dL 10.6 Interpretation (ACTHST) -- ACTH 7.2 - 63.3 pg/mL 1.1 (L) Cortisol 4.8 - 19.5 ug/dL 0.5 (L) Aldosterone 0.0 - <35.4 ng/dL 4.7 Cortisol 30 min ug/dL 7.8 Recent RFP [facility] ALBUMIN SERPL-[facility] 3.9 - 4.9 g/dL 4.6 [facility] CALCIUM [facility] 8.5 - 10.2 mg/dL 10.3 High [facility] PHOSPHATE [facility] 2.7 - 4.8 mg/dL 3.7 [facility] GLUCOSE [facility] 74 - 99 mg/dL 52 Low Comment: The [place] [employer] Association (ADA) provides guidance for cutoff [...] Standards of Medical Care in Diabetes 2016, [place] [employer]. Diabetes Care. 2016.39(Suppl 1). [facility] BUN [facility] 7 - 21 mg/dL 29 High [facility] CREAT [facility] 0.58 - 0.96 mg/dL 0.92 [facility] SODIUM SER[facility]-SC[facility] 136 - 144 mmol/L 142 [facility] POTASSIUM [facility] 3.7 - 5.1 mmol/L 4.4 [facility] CHLORIDE [facility] 98 - 107 mmol/L 108 High [facility] CO2 [facility] 22 - 30 mmol/L 26 [facility] ANION GAP [facility] 8 - 15 mmol/L 8 [facility] CREATININE + EGFR PNL SERPLBLD >=60 mL/min/1.73m??? 85 IMAGING: CT 07/2023 A left adrenal nodule measures approximately 18 mm. Precontrast Hounsfield units of 6, 75-second postcontrast Hounsfield units of 29, and 15-minute delayed Hounsfield units of -44 absolute washout of 143.5% and relative washout of 113.8%. Postsurgical changes of the stomach. The liver, gallbladder, spleen, pancreas, and right adrenal gland are within normal limits. Pathology: FINAL DIAGNOSIS A. Adrenal gland, left, adrenalectomy: - Adrenal cortical adenoma (2.1 cm). ASSESSMENT : Heidi Joy is a 33 year old female with PMHx of primary hyperaldosteronism s/p left adrenalectomy in 01/2024 is here for follow-up. Post-op she was started on hydrocortisone based on ACTH stim test. Aldosterone levels improved from 79.8 pre-op to 4.7 post-op. Hypokalemia resolved and she is no longer requiring spironolactone. BP is stable on amlodipine 10mg daily. PLAN: - Taper hydrocortisone, today BSA is 1.91. Schedule provided in AVS. - Baseline hydrocortisone dose is 10-5-2.5mg, continue this for two weeks - Will repeat ACTH stim test afterwards, will send message to RN - Consider repeating aldosterone levels at this time, post-op levels were 4.7 - Follow-up with PCP regarding amlodipine dose, currently takes 10mg daily - Continue follow-up with nephrology, monitor kidney function and potassium closely for atleast 6 months Follow up: if ACTH stim test is abnormal Vikki Balderrama MD [facility] Endocrinology and Metabolism [place] - [facility] [phone] documented in this encounter [facility] 02-12-2024 Instructions Vikki Balderrama MD - 02/12/2024 9:35 AM EDT Timings: While on Vacation: 7am, 12pm, 4pm When workinam, 9am, 2pm Tapering schedule: AM Afternoon PM 02/12 - 02/18 30 mg 10 mg 5 mg 02/19 - 02/25 20 mg 10 mg 5 mg 02/26 - 03/04 20 mg 10 mg 2.5 mg 03/05 - 03/11 15 mg 10 mg 2.5 mg 03/12 - 03/18 15 mg 5 mg 2.5 mg 03/19 - 04/02 10 mg 5 mg 2.5 mg Repeat ACTH stim test the week of 04/06, I will ask my team to contact you and schedule you for this. Please do not take any steroids for atleast 12 hrs prior to the test. documented in this encounter [facility] 02-07-2024 Telephone encounter Note Please schedule a follow-up visit, first available. Offer wait list as well. Thank you Vikki Balderrama MD Endocrinology & Metabolism [place] [facility] 02-07-2024 Miscellaneous Notes Please schedule a follow-up visit, first available. Offer wait list as well. Thank you Vikki Balderrama MD Endocrinology & Metabolism [place] documented in this encounter [facility] 02-04-2024 Instructions Manuel Alfaro MD - 02/04/2024 11:45 AM EDT Follow up with endocrinology regarding the hydrocortisone When they wean you off it, your blood pressure will likely improve Eventually we can add small dose of spironolactone Send me home blood pressure readings in 2 weeks documented in this encounter [facility] 02-04-2024 Note [facility] 02-04-2024 History of Present illness Narrative [facility] NEPHROLOGY & HYPERTENSION SERVICE DATE: 02/04/2024 SERVICE TIME: 12:05 PM Part of this note was copied from prior progress notes CHIEF COMPLAINT: Hypokalemia HPI: Ms. Joy is a 33 year old female who presents with PH of primary hyperaldosteronism, left adrenal adenoma , obesity s/p bariatric surgery 12/11/22 (gastric bypass), PCOS, hypertension and chronic hypokalemia She was referred for evaluation of hypokalemia She was supposed to have adrenalectomy on 12/10/23 however the surgery was cancelled because of severe hypokalemia reached out for management of hypokalemia Initial visit was on 12/11/23 Aldactone dose was increased to 50 mg BID. (It was birefly increased to 100 mg AM and 50 mg PM) Also KCL was changed to oral packets (later was increased to TID) Her potassium improved S/P robotic left transabdominal lateral adrenalectomy on 01/28/24 Aldactone and KCL were stopped upon DC She was only kept on amlodipine 10 mg once daily Latest labs showed serum potassium of 4 mmol/L , sodium 145 mmol/L and creatinine 0.84 mg/dl (stable) Post surgery: Serum aldosterone 4.7 ng/dl and renin ,2.1 pg/ml. Serum AM cortisol was 0.5 ug/dL Given the low Am cortisone, she was started on oral hydrocortisone Seen and examined today No active complaints She does not check her BP at home PAST MEDICAL HISTORY: 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) Acute Hypokalemia Anxiety Bipolar Affective Disorder, Currently Depressed, Mild (Hcc) Depressive Disorder First Degree Av Block History of Bariatric Surgery Migraine With Aura and Without Status Migrainosus, Not Intractable Oligodendroglioma of Brain (Hcc) Hyperaldosteronism (Hcc) Tobacco Use History of Hypokalemia Nicotine use disorder, F17.2 MEDICATIONS: hydrocortisone (CORTEF) 10 mg tablet Take 3 tablets by mouth every morning AND 2 tablets every evening. traMADol (ULTRAM) 50 mg tablet Take 1 tablet by mouth every 8 hours as needed for up to 7 days. LORazepam (ATIVAN) 1 mg tablet TAKE 1 - 2 TABLETS BY MOUTH PRIOR TO PROCEDURE amLODIPine (NORVASC) 10 mg tablet Take 1 tablet by mouth every afternoon. busPIRone (BUSPAR) 10 mg tablet TAKE 1 TABLET (10 MG) BY MOUTH IN THE MORNING AND BEFORE BEDTIME gabapentin (NEURONTIN) 400 mg capsule 1 capsule. lamoTRIgine (LAMICTAL) 150 mg tablet Take 150 mg by mouth. lurasidone (LATUDA) 60 mg tab tablet Take 60 mg by mouth. REXULTI 1 mg tablet TAKE 1 TABLET BY MOUTH ONCE DAILY AT THE SAME TIME SUMAtriptan (IMITREX) 100 mg tablet TAKE 1 TAB AT MIGRAINE ONSET, MAY REPEAT IN 2 HOURS NEEDED, MAX 2 TABS IN 24 HOURS zolpidem (AMBIEN) 10 mg Ferrous Sulfate 27 mg iron tab Take by mouth twice daily. ALLERGIES: ALLERGIES No Known Allergies REVIEW OF SYSTEMS: Constitutional: No fever and No chills Cardiovascular: No edema and No lightheadedness Genitourinary: No complaints PHYSICAL EXAM: Wt 80.3 kg (177 lb 1.6 oz) LMP 11/27/2023 (Exact Date) SpO2 100% BMI 27.74 kg/m @BPTRU@ BP - standardized method Pulse 1 BP #1: 136/88 Pulse #1: 68 beats/min 2 BP #2 : 137/87 Pulse #2 : 67 beats/min 3 BP #3 : 130/88 Pulse #3 : 69 beats/min Average Average BP: 134/88 Average Pulse: 67 beats/min Orthostatic vitals Supine Sitting Standing BP cuff location BP cuff location: Left upper arm BP cuff size BP cuff size: regular adult Comments for BP values First BP (right) First BP (left) First BP (Left): 141/89 Constitutional:No acute distress, Responsive, Normal habitus, and Obesity Neck:Trachea midline No jugular venous distension Cardiovascular: Mild LL edema Regular rate and ryhthm, normal S1 and S2, no murmurs, rubs, or gallops Respiratory:Normal respiratory effort. Lungs clear bilaterally. Abdomen: Soft and non tender. Laparoscopic wound noted , surrounded by mild ecchymosis Psychiatric: Alert and oriented x self, place, time, and setting Normal mood/affect DATA: Diagnostic tests reviewed for today's visit: No results for input(s): INR , APTT in the last 168 hours. No results for input(s): COLOR , CLARITY , UGLUC , UBILI , UKET , SPGR , UHB , UPH , UPROT , NITRITES , LEUKEST , UWBC , URBC in the last 8784 hours. Laboratory work up, imaging and other tests were reviewed Encounter diagnoses (E87.6) Chronic hypokalemia (primary encounter diagnosis) (E26.09) Primary hyperaldosteronism (HCC) (I10) Uncontrolled hypertension ASSESSMENT: 33 year old female who presents with PH of primary hyperaldosteronism, left adrenal adenoma , obesity s/p bariatric surgery 12/11/22 (gastric bypass), PCOS, hypertension and chronic hypokalemia She was referred for evaluation of hypokalemia She was supposed to have adrenalectomy on 12/10/23 however the surgery was cancelled because of severe hypokalemia reached out for management of hypokalemia Initial visit was on 12/11/23 Aldactone dose was increased to 50 mg BID. (It was birefly increased to 100 mg AM and 50 mg PM) Also KCL was changed to oral packets (later was increased to TID) Her potassium improved S/P robotic left transabdominal lateral adrenalectomy on 01/28/24 Aldactone and KCL were stopped upon DC She was only kept on amlodipine 10 mg once daily Latest labs showed serum potassium of 4 mmol/L , sodium 145 mmol/L and creatinine 0.84 mg/dl (stable) Post surgery: Serum aldosterone 4.7 ng/dl and renin ,2.1 pg/ml. Serum AM cortisol was 0.5 ug/dL Given the low AM cortisone, she was started on oral hydrocortisone Potasium within normal now while off the KCL supplement and aldactone BP is not at target , BP might improve after weaning her off hydrocortisone. Will defer the timing of that endocrinology She will send me home BP and eventually can add small dose of spironolactone and up titrate as needed (based on the BP and renin level). Will hod on that until she is off hydrocortisone Continue on weekly labs for now to monitor the potassium RTC in 6 months CC: I spent 30 minutes in the visit which included preparing to see the patient, [id number] patient care, completing clinical documentation, obtaining and/or reviewing separately obtained history, performing a medically appropriate examination, counseling and educating the patient/family/caregiver, ordering medications, tests, or procedures Manuel Alfaro MD Staff Ceramic Engineering Professor February 04, 2024 11:21 AM CC: PRIMARY CARE PHYSICIAN: Immanuel Kuhn DO documented in this encounter [facility] 01-29-2024 Note [facility] 01-28-2024 Note [facility] 01-28-2024 Note [facility] 01-28-2024 Note [facility] 01-27-2024 Note HNO ID: [id number] Author: BHAVNA PARKER, RN Service: Nursing Author Type: Registered Nurse Type: Nursing Progress Note Filed: 01/27/2024 19:23 Note Text: Admitted to 1-17 in stable condition. Direct admit. Oriented to call button and room. [facility] 01-20-2024 Instructions Phuong Rock APRN.DIRECTOR OF RECREATION THERAPY - 01/20/2024 9:11 AM EDT PATIENT PREOPERATIVE INSTRUCTIONS Glory Salcedo MD has scheduled you for your procedure at this surgery center: [facility] Scheduling Office: [phone] --[address] [place] [address]. Please read below carefully for your personalized [...] after today's visit, please contact your surgeon. Pre-Surgery Med Instructions Medication Instructions potassium chloride (KLOR-CON) 20 mEq packet Take the day of surgery with a small sip of water if needed spironolactone (ALDACTONE) 50 mg tablet Do not take the day of surgery amLODIPine (NORVASC) 10 mg tablet Take the day of surgery with a small sip of water Take evening/bedtime medications the night before surgery as you normally would. If you start any new medications after [...] or NSAIDS as needed. Important Reminders: - If you use CPAP/BIPAP, bring the machine with you to the surgery center. - If you are prescribed inhalers for breathing, continue using them. - Candy, mints, and tobacco products are [...] Procedures: - YOU MUST HAVE A RESPONSIBLE RN FLOAT TAKE YOU HOME. A ASSISTANT BRANCH OPERATIONS MANAGER OR CEREAL MILLER CANNOT BE MADE A RESPONSIBLE RN FLOAT. - We recommend that a responsible person [...] call the Saturday before. Your surgeon s personnel scheduler will tell you what time to call the office. - If you have not reached the departmental personnel scheduler by 5 P.M., call [phone] after 5 P.M. the day before your surgery. Please be aware that emergency situations arise, which may delay or change your surgical time. If this happens, we will notify you as soon as possible and regret any inconvenience. If you already have an Advance Directive, please fax a copy to [phone] or email to for it to be [...] and scanned into your chart that day. Phuong Rock APRN.CNP documented in this encounter [facility] 01-20-2024 History and physical note This is a virtual visit using Virtual Visit (Audio/Visual) I have discussed the nature of this visit with the patient which will occur via Distance [facility] (Phone, Virtual Visit) and she agrees to proceed with this interaction . It required patient-provider interaction for the medical decision making as documented below. I have communicated my name and active licensure. The patient's identity and physical location were verified at the time of this visit. Either the patient or their legal clearance representative has been informed of the risks and benefits of and alternatives to treatment through a remote evaluation and consents to proceed with the evaluation remotely. PREANESTHESIA CONSULT CLINIC TELEHEALTH VISIT Patient has been identified by name and date of : Yes This is a virtual visit using [employer] Zoom Video Visit. It require patient-provider interaction for the medical decision making as documented below. Reason for contact: PACC visit Accompanied by: Self Scheduled Surgery: Left - ROBOTIC LAPAROSCOPIC LEFT TRANSABDOMINAL ADRENALECTOMY Subjective CHIEF COMPLAINT: Patient presents with: Anesthesia Consult HPI: This is a 33 year old female with diagnosis of Adenoma of left adrenal gland; Primary hyperaldosteronism scheduled for Left - ROBOTIC LAPAROSCOPIC LEFT TRANSABDOMINAL ADRENALECTOMY. Reports blood pressure and potassium level affected. Scheduled for surgical intervention. 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) Acute Hypokalemia Anxiety Bipolar Affective Disorder, Currently Depressed, Mild (Hcc) Depressive Disorder First Degree Av Block History of Bariatric Surgery Migraine With Aura and Without Status Migrainosus, Not Intractable Oligodendroglioma of Brain (Hcc) Hyperaldosteronism (Hcc) Tobacco Use History of Hypokalemia PAST MEDICAL HISTORY Diagnosis Date Kidney stones [...] Grandmother Social History Tobacco Use Smoking status: Every Day Packs/day: .5 Types: Cigarettes Smokeless tobacco: Never Vaping Use Vaping Use: Never used Substance Use Topics Alcohol use: Yes Drug use: Never ALLERGIES No Known Allergies MEDICATIONS: Current Outpatient Medications Medication Sig potassium chloride (KLOR-CON) 20 mEq packet Take 40 mEq by mouth three times a day. spironolactone (ALDACTONE) 50 mg tablet Take 1 tablet by mouth two times a day. amLODIPine (NORVASC) 10 mg tablet Take 1 tablet by mouth every afternoon. LORazepam (ATIVAN) 1 mg tablet TAKE 1 - 2 TABLETS BY MOUTH PRIOR TO PROCEDURE busPIRone (BUSPAR) 10 mg tablet TAKE 1 TABLET (10 MG) BY MOUTH IN THE MORNING AND BEFORE BEDTIME gabapentin (NEURONTIN) 400 mg capsule 1 capsule. lamoTRIgine (LAMICTAL) 150 mg tablet Take 150 mg by mouth. lurasidone (LATUDA) 60 mg tab tablet Take 60 mg by mouth. REXULTI 1 mg tablet TAKE 1 TABLET BY MOUTH ONCE DAILY AT THE SAME TIME SUMAtriptan (IMITREX) 100 mg tablet TAKE 1 TAB AT MIGRAINE ONSET, MAY REPEAT IN 2 HOURS NEEDED, MAX 2 TABS IN 24 HOURS zolpidem (AMBIEN) 10 mg Ferrous Sulfate 27 mg iron tab Take by mouth twice daily. No current facility-administered medications for this visit. REVIEW OF SYSTEMS: Pain Assessment: General: No weight loss, malaise or fevers. Neuro: Postive for hx of brain tumor excision, Negative for Seizures Stroke-residual deficit Respiratory: No history of current cough or dyspnea, or pneumonia in the past 6 weeks. No history of respiratory/pulmonary symptoms or problems. 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 : Denies, Patient's last menstrual period was 11/27/2023 (exact date). Endocrine: See HPI Hematology: No history of bleeding or clotting disorder. Pt is not taking anti-coagulation or platelet medications. No history of hematological symptoms or problems. Oncology: No history of CA metastasis, chemo within 30 days, or radiotherapy within 90 days. Has not lost 10% of body wt in 6 months. No history of oncological symptoms or problems. Psych: No history of psychiatric symptoms or problems. Musculoskeletal: Negative for joint pain or swelling, back pain or muscle pain. Skin: Negative for lesions, rash and itching. Objective PHYSICAL EXAM: Ht 5' 7 (1.70m) Wt 175 lb (79.4kg) LMP 11/27/2023 BMI 27.40 kg/(m^2). VIDEO EXAM: (if completed, performed via video enabled technology) GENERAL: alert and appropriate, in no distress, well-hydrated, well nourished, and happy, smiling, interactive SKIN: no rash noted HEAD: normocephalic, no abnormality or lesion noted EYES: no injection and visual acuity is grossly normal EARS: hearing grossly normal NOSE: external nose normal without rhinorrhea OROPHARYNX: moist mucus membranes NECK: full ROM, no cervical LNs noted RESPIRATORY: breathing non-labored CHEST: equal chest rise with normal respiratory effort HEART: heart rate and rhythm regular by patient report with palpation of carotid artery and vocalizing by counting aloud with heart beat Diagnostic tests reviewed for today's visit: Pending Lab Value Units Date High Low HB 14.7 g/dL 11/14/2023 15.5 11.5 HCT 43.9 % 11/14/2023 46.0 36.0 WBC 6.97 k/uL 11/14/2023 11.00 3.70 PLT 204 k/uL 11/14/2023 400 150 NA 144 mmol/L 01/16/2024 144 136 K 4.2 mmol/L 01/16/2024 5.1 3.7 GLUC 94 mg/dL 01/16/2024 99 74 BUN 23 mg/dL 01/16/2024 21 7 CREAT 1.06 mg/dL 01/16/2024 0.96 0.58 PTSEC 10.2 sec 10/22/2023 13.0 9.7 INR 1.0 no uni* 10/22/2023 1.3 0.9 APTT No results within date range. ALT 12 U/L 12/06/2023 38 7 AST 18 U/L 12/06/2023 35 13 TBILI 0.9 mg/dL 12/06/2023 1.3 0.2 TSH No results within date range. Lab Value Units Date High Low HCGQT No results within date range. UHCG No results within date range. HCG, BODY* No results within date range. Lab Value Units Date High Low ABORHD No results within date range. ABSCREEN No results within date range. No results found for: HBA1C Most recent EKG: Recent Results (from the past 8760 hour(s)) ECG COMPLETE Collection Time: 12/06/23 9:17 AM Result Value Ventricular Rate 61 Atrial Rate 61 P-R Interval 266 QRS Duration 120 QT Interval 426 QTC Calculation (Bazett) 428 Calculated P [place] 30 Calculated R [place] 19 Calculated T [place] 6 Impression SINUS RHYTHM WITH 1ST DEGREE AV BLOCK NONSPECIFIC INTRAVENTRICULAR CONDUCTION DELAY BORDERLINE ECG Confirmed by DANDY IYER MD ([id number]) on 12/27/2023 10:49:58 AM Impression/Recommendations ASSESSMENT: Tobacco use Assessment: Current smoker, aware of pre-op instructions. Iron deficiency Assessment: stable. Hemoglobin (g/dL) Date Value 11/14/2023 14.7 10/22/2023 13.4 01/15/2020 12.7 Adenoma of left adrenal gland Assessment: Scheduled for surgery Oligodendroglioma of brain (HCC) Assessment: hx of resection 2018. No chemo or radiation. History of bariatric surgery Assessment: hx of gastric bypass 12/2022. Stable. History of hypokalemia Assessment: stable on oral potassium supplement. METS: Do heavy work around the house, such as scrubbing floors, lifting or moving heavy furniture (8.00 METs) Patient denies any chest pain or undue shortness of breath with the above physical activity. ANESTHESIA FINDINGS: Intubation History: No history of difficult intubation Significant Anesthesia Considerations: None Airway Exam: General: Normal appearance Mallampati Score is CLASS II ULBT: Class I - Lower incisors can bite the upper lip above the gisselle line Neck: Normal appearance and function, Distance from hyoid to mentum during neck extension is at least 3 finger breaths Mouth: Normal tongue size and Mouth opening greater than 2 finger breaths Dentition: Intact Airway History: No abnormal airway history STOP BANG Score: Criteria: Hypertension Score = 1 PLAN: This patient is optimally prepared for surgery pending LABS. CONSULTS: Patient does not require consults for optimization at this time. The Following Tests/Procedures Have Been Initiated: EKG not indicated per PACC protocol, labs ordered by surgeon to be completed prior to admit Planned Anesthetic: Per anesthesia choice Instructions Given to Patient: Patient given verbal instructions and voices comprehension and compliance. Copy sent electronically via My Chart, email, or mobile device. I spent a total of 20 minutes on the date of the service which included preparing to see the patient, [id number] patient care, completing clinical documentation, obtaining and/or reviewing separately obtained history, performing a medically appropriate examination, and counseling and educating the patient/family/caregiver This is a virtual visit. It required patient-provider interaction for the medical decision making as documented above. SIGNATURE: Phuong Rock APRN.CNP PATIENT NAME: Heidi Joy DATE: January 20, 2024 TIME: 9:16 AM PAGER/CONTACT #: T [facility] 01-20-2024 History and physical note This is a virtual visit using Virtual Visit (Audio/Visual) I have discussed the nature of this visit with the patient which will occur via Distance [facility] (Phone, Virtual Visit) and she agrees to proceed with this interaction . It required patient-provider interaction for the medical decision making as documented below. I have communicated my name and active licensure. The patient's identity and physical location were verified at the time of this visit. Either the patient or their legal clearance representative has been informed of the risks and benefits of and alternatives to treatment through a remote evaluation and consents to proceed with the evaluation remotely. PREANESTHESIA CONSULT CLINIC TELEHEALTH VISIT Patient has been identified by name and date of : Yes This is a virtual visit using MyChart Zoom Video Visit. It require patient-provider interaction for the medical decision making as documented below. Reason for contact: PACC visit Accompanied by: Self Scheduled Surgery: Left - ROBOTIC LAPAROSCOPIC LEFT TRANSABDOMINAL ADRENALECTOMY Subjective CHIEF COMPLAINT: Patient presents with: Anesthesia Consult HPI: This is a 33 year old female with diagnosis of Adenoma of left adrenal gland; Primary hyperaldosteronism scheduled for Left - ROBOTIC LAPAROSCOPIC LEFT TRANSABDOMINAL ADRENALECTOMY. Reports blood pressure and potassium level affected. Scheduled for surgical intervention. 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) Acute Hypokalemia Anxiety Bipolar Affective Disorder, Currently Depressed, Mild (Hcc) Depressive Disorder First Degree Av Block History of Bariatric Surgery Migraine With Aura and Without Status Migrainosus, Not Intractable Oligodendroglioma of Brain (Hcc) Hyperaldosteronism (Hcc) Tobacco Use History of Hypokalemia PAST MEDICAL HISTORY Diagnosis Date Kidney stones [...] Grandmother Social History Tobacco Use Smoking status: Every Day Packs/day: .5 Types: Cigarettes Smokeless tobacco: Never Vaping Use Vaping Use: Never used Substance Use Topics Alcohol use: Yes Drug use: Never ALLERGIES No Known Allergies MEDICATIONS: Current Outpatient Medications Medication Sig potassium chloride (KLOR-CON) 20 mEq packet Take 40 mEq by mouth three times a day. spironolactone (ALDACTONE) 50 mg tablet Take 1 tablet by mouth two times a day. amLODIPine (NORVASC) 10 mg tablet Take 1 tablet by mouth every afternoon. LORazepam (ATIVAN) 1 mg tablet TAKE 1 - 2 TABLETS BY MOUTH PRIOR TO PROCEDURE busPIRone (BUSPAR) 10 mg tablet TAKE 1 TABLET (10 MG) BY MOUTH IN THE MORNING AND BEFORE BEDTIME gabapentin (NEURONTIN) 400 mg capsule 1 capsule. lamoTRIgine (LAMICTAL) 150 mg tablet Take 150 mg by mouth. lurasidone (LATUDA) 60 mg tab tablet Take 60 mg by mouth. REXULTI 1 mg tablet TAKE 1 TABLET BY MOUTH ONCE DAILY AT THE SAME TIME SUMAtriptan (IMITREX) 100 mg tablet TAKE 1 TAB AT MIGRAINE ONSET, MAY REPEAT IN 2 HOURS NEEDED, MAX 2 TABS IN 24 HOURS zolpidem (AMBIEN) 10 mg Ferrous Sulfate 27 mg iron tab Take by mouth twice daily. No current facility-administered medications for this visit. REVIEW OF SYSTEMS: Pain Assessment: General: No weight loss, malaise or fevers. Neuro: Postive for hx of brain tumor excision, Negative for Seizures Stroke-residual deficit Respiratory: No history of current cough or dyspnea, or pneumonia in the past 6 weeks. No history of respiratory/pulmonary symptoms or problems. 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 : Denies, Patient's last menstrual period was 11/27/2023 (exact date). Endocrine: See HPI Hematology: No history of bleeding or clotting disorder. Pt is not taking anti-coagulation or platelet medications. No history of hematological symptoms or problems. Oncology: No history of CA metastasis, chemo within 30 days, or radiotherapy within 90 days. Has not lost 10% of body wt in 6 months. No history of oncological symptoms or problems. Psych: No history of psychiatric symptoms or problems. Musculoskeletal: Negative for joint pain or swelling, back pain or muscle pain. Skin: Negative for lesions, rash and itching. Objective PHYSICAL EXAM: Ht 5' 7 (1.70m) Wt 175 lb (79.4kg) LMP 11/27/2023 BMI 27.40 kg/(m^2). VIDEO EXAM: (if completed, performed via video enabled technology) GENERAL: alert and appropriate, in no distress, well-hydrated, well nourished, and happy, smiling, interactive SKIN: no rash noted HEAD: normocephalic, no abnormality or lesion noted EYES: no injection and visual acuity is grossly normal EARS: hearing grossly normal NOSE: external nose normal without rhinorrhea OROPHARYNX: moist mucus membranes NECK: full ROM, no cervical LNs noted RESPIRATORY: breathing non-labored CHEST: equal chest rise with normal respiratory effort HEART: heart rate and rhythm regular by patient report with palpation of carotid artery and vocalizing by counting aloud with heart beat Diagnostic tests reviewed for today's visit: Pending Lab Value Units Date High Low HB 14.7 g/dL 11/14/2023 15.5 11.5 HCT 43.9 % 11/14/2023 46.0 36.0 WBC 6.97 k/uL 11/14/2023 11.00 3.70 PLT 204 k/uL 11/14/2023 400 150 NA 144 mmol/L 01/16/2024 144 136 K 4.2 mmol/L 01/16/2024 5.1 3.7 GLUC 94 mg/dL 01/16/2024 99 74 BUN 23 mg/dL 01/16/2024 21 7 CREAT 1.06 mg/dL 01/16/2024 0.96 0.58 PTSEC 10.2 sec 10/22/2023 13.0 9.7 INR 1.0 no uni* 10/22/2023 1.3 0.9 APTT No results within date range. ALT 12 U/L 12/06/2023 38 7 AST 18 U/L 12/06/2023 35 13 TBILI 0.9 mg/dL 12/06/2023 1.3 0.2 TSH No results within date range. Lab Value Units Date High Low HCGQT No results within date range. UHCG No results within date range. HCG, BODY* No results within date range. Lab Value Units Date High Low ABORHD No results within date range. ABSCREEN No results within date range. No results found for: HBA1C Most recent EKG: Recent Results (from the past 8760 hour(s)) ECG COMPLETE Collection Time: 12/06/23 9:17 AM Result Value Ventricular Rate 61 Atrial Rate 61 P-R Interval 266 QRS Duration 120 QT Interval 426 QTC Calculation (Bazett) 428 Calculated P [place] 30 Calculated R [place] 19 Calculated T [place] 6 Impression SINUS RHYTHM WITH 1ST DEGREE AV BLOCK NONSPECIFIC INTRAVENTRICULAR CONDUCTION DELAY BORDERLINE ECG Confirmed by JAYLON URIBE, DANDY ([id number]) on 12/27/2023 10:49:58 AM Impression/Recommendations ASSESSMENT: Tobacco use Assessment: Current smoker, aware of pre-op instructions. Iron deficiency Assessment: stable. Hemoglobin (g/dL) Date Value 11/14/2023 14.7 10/22/2023 13.4 01/15/2020 12.7 Adenoma of left adrenal gland Assessment: Scheduled for surgery Oligodendroglioma of brain (HCC) Assessment: hx of resection 2018. No chemo or radiation. History of bariatric surgery Assessment: hx of gastric bypass 12/2022. Stable. History of hypokalemia Assessment: stable on oral potassium supplement. METS: Do heavy work around the house, such as scrubbing floors, lifting or moving heavy furniture (8.00 METs) Patient denies any chest pain or undue shortness of breath with the above physical activity. ANESTHESIA FINDINGS: Intubation History: No history of difficult intubation Significant Anesthesia Considerations: None Airway Exam: General: Normal appearance Mallampati Score is CLASS II ULBT: Class I - Lower incisors can bite the upper lip above the gisselle line Neck: Normal appearance and function, Distance from hyoid to mentum during neck extension is at least 3 finger breaths Mouth: Normal tongue size and Mouth opening greater than 2 finger breaths Dentition: Intact Airway History: No abnormal airway history STOP BANG Score: Criteria: Hypertension Score = 1 PLAN: This patient is optimally prepared for surgery pending LABS. CONSULTS: Patient does not require consults for optimization at this time. The Following Tests/Procedures Have Been Initiated: EKG not indicated per [facility] protocol, labs ordered by surgeon to be completed prior to admit Planned Anesthetic: Per anesthesia choice Instructions Given to Patient: Patient given verbal instructions and voices comprehension and compliance. Copy sent electronically via My Chart, email, or mobile device. I spent a total of 20 minutes on the date of the service which included preparing to see the patient, [id number] patient care, completing clinical documentation, obtaining and/or reviewing separately obtained history, performing a medically appropriate examination, and counseling and educating the patient/family/caregiver This is a virtual visit. It required patient-provider interaction for the medical decision making as documented above. SIGNATURE: Phuong Rock APRN.CNP PATIENT NAME: Heidi Joy DATE: January 20, 2024 TIME: 9:16 AM PAGER/CONTACT #: documented in this encounter [facility] 12-19-2023 Telephone encounter Note Called patient to reschedule date for surgery. No answer, left voicemail with call back number. Pippa Gan RN [facility] 12-19-2023 Miscellaneous Notes Called patient to reschedule date for surgery. No answer, left voicemail with call back number. Pippa Gan RN documented in this encounter [facility] 12-11-2023 Instructions Manuel Alfaro MD - 12/11/2023 10:54 AM EDT Take potassium chloride packets as opposed to the capsule (powder is better absorbed) Increase spironolactone to 50 mg twice daily (hopefully will help with the low potassium and the blood pressure) Blood work this Saturday Monitor the blood pressure at home, target in the future <130/80 mmHg documented in this encounter [facility] 12-11-2023 Note [facility] 12-11-2023 History of Present illness Narrative [facility] NEPHROLOGY & HYPERTENSION SERVICE DATE: 12/11/2023 SERVICE TIME: 11:35 AM REASON FOR CONSULT: I am asked to see this patient in consultation for my opinion regarding hypokalemia. My recommendations will be communicated by way of shared medical record, fax, or mail. REQUESTING PHYSICIAN: Mario Sullivan MD PRIMARY CARE PHYSICIAN: Immanuel Kuhn DO CHIEF COMPLAINT: Hypokalemia HPI: Ms. Joy is a 33 year old female who presents with PH of primary hyperaldosteronism, left adrenal adenoma , obesity s/p bariatric surgery 12/11/22 (gastric bypass), PCOS, hypertension and chronic hypokalemia She was referred for evaluation of hypokalemia She was supposed to have adrenalectomy on 12/10/23 however the surgery was cancelled because of severe hypokalemia reached out for management of hypokalemia She is known to have chronic hypokalemia 3-3.5 mmol/L It was controlled omn oral supplements however more difficult to control since she had the bariatric surgery. She requires IV KCL every 2 weeks 24 hrs urine potassium 23.5 mmol/24 hrs (08/23/23) She has HTN for long time, uncontrolled She is on aldactone 25 mg once daily on 11/20/23 She is also on amlodipine 10 mg once daily She was on hydralazine in the past She denied being on ACEI/ARB She takes oral KCL 40 meq BID (capsules or packet) She is on mag oxide 400 mg once daily Not on PPI She has fatigue and muscle weakness, no cramps She passed kidney stones x 2 in the past Not on NSAIDs She gets her menstrual cycle every 4 weeks Never in the past and not planning for soon PAST MEDICAL HISTORY: PAST MEDICAL HISTORY Diagnosis Date Kidney stones Malignant brain tumor (HCC) 08/[address] Lema Microcytic anemia Otalgia of right ear PCOS (polycystic ovarian syndrome) Plantar fasciitis PAST SURGICAL HISTORY: PAST SURGICAL HISTORY Procedure Laterality Date EXCIS SUPRATENT BRAIN TUMOR 2019 GASTRIC BYPASS HX 12/11/2022 PART EXCIS PLANTAR FASCIA Right 2016 PART EXCIS PLANTAR FASCIA Left 2022 FAMILY HISTORY: FAMILY HISTORY Problem Relation Age of Onset Diabetes Mother Diabetes Father Heart disease Father Hypertension Father other (lung cancer) Paternal Grandmother SOCIAL HISTORY: Social History Tobacco Use Smoking status: Every Day Packs/day: .5 Types: Cigarettes Smokeless tobacco: Never Vaping Use Vaping Use: Never used Substance Use Topics Alcohol use: Yes Drug use: Never MEDICATIONS: spironolactone (ALDACTONE) 50 mg tablet Take 1 tablet by mouth two times a day. magnesium oxide (MAG-OX) 400 mg (241.3 mg magnesium) tablet Take 1 tablet by mouth every morning. LORazepam (ATIVAN) 1 mg tablet TAKE 1 - 2 TABLETS BY MOUTH PRIOR TO PROCEDURE amLODIPine (NORVASC) 10 mg tablet Take 1 tablet by mouth every afternoon. busPIRone (BUSPAR) 10 mg tablet TAKE 1 TABLET (10 MG) BY MOUTH IN THE MORNING AND BEFORE BEDTIME gabapentin (NEURONTIN) 400 mg capsule 1 capsule. lamoTRIgine (LAMICTAL) 150 mg tablet Take 150 mg by mouth. lurasidone (LATUDA) 60 mg tab tablet Take 60 mg by mouth. REXULTI 1 mg tablet TAKE 1 TABLET BY MOUTH ONCE DAILY AT THE SAME TIME potassium chloride ER (KLOR-CON) 20 mEq tablet Take 20 mEq by mouth. 4 meq 2 x daily SUMAtriptan (IMITREX) 100 mg tablet TAKE 1 TAB AT MIGRAINE ONSET, MAY REPEAT IN 2 HOURS NEEDED, MAX 2 TABS IN 24 HOURS zolpidem (AMBIEN) 10 mg Ferrous Sulfate 27 mg iron tab Take by mouth twice daily. ALLERGIES: ALLERGIES No Known Allergies REVIEW OF SYSTEMS: Constitutional: No fever and No chills Eyes: No complaints Ear, Nose, and Throat: No oral ulcers and No epistaxis Cardiovascular: No edema and No lightheadedness Respiratory: No cough and No dyspnea Gastrointestinal: No diarrhea, No nausea, and No emesis Genitourinary: No pink or red urine and No dysuria Musculoskeletal: Muscle weakness and fatigue Skin: No complaints and No rash Neurological: No numbness and No paresthesias Psychiatric: No depression and No anxiety Endocrine: No complaints Hematologic:No issues with bruising easily and No issues with bleeding easily PHYSICAL EXAM: Wt 82.1 kg (181 lb) LMP 11/27/2023 (Exact Date) SpO2 98% BMI 28.35 kg/m @BPTRU@ BP - standardized method Pulse 1 BP #1: 162/108 Pulse #1: 72 beats/min 2 BP #2 : 164/111 Pulse #2 : 74 beats/min 3 BP #3 : 160/103 Pulse #3 : 72 beats/min Average Average BP: 162/107 Average Pulse: 70 beats/min Orthostatic vitals Supine Sitting Standing BP cuff location BP cuff location: Right upper arm BP cuff size BP cuff size: regular adult Comments for BP values First BP (right) First BP (Right): 159/95 First BP (left) Constitutional: No acute distress, Responsive, Normal habitus, and Well-nourished Eyes: Conjunctiva clear and Noscleral icterus Ear, Nose, and Throat: Hearing normal and Lips normal Neck:Trachea midline No jugular venous distension Cardiovascular:trace peripheral edema Regular rate and ryhthm, normal S1 and S2, no murmurs, rubs, or gallops Respiratory: Normal respiratory effort. Lungs clear bilaterally. Abdomen:Soft, non-tender, non-distended. Normal bowel sounds. No hepatosplenomegaly. Musculoskeletal: No clubbing or cyanosis of digits., Normocephalic., and No muscle weakness, joint tenderness, or joint effusions. Neurologic:CN II-XII intact and Normal sensation Psychiatric: Alert and oriented x self, place, time, and setting Normal mood/affect DATA: Diagnostic tests reviewed for today's visit: No results for input(s): INR , APTT in the last 168 hours. No results for input(s): COLOR , CLARITY , UGLUC , UBILI , UKET , SPGR , UHB , UPH , UPROT , NITRITES , LEUKEST , UWBC , URBC in the last 8784 hours. 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) History of bariatric surgery ASSESSMENT: 33 year old female who presents with PH of primary hyperaldosteronism, left adrenal adenoma , obesity s/p bariatric surgery 12/11/22 (gastric bypass), PCOS, hypertension and chronic hypokalemia She was referred for evaluation of hypokalemia She was supposed to have adrenalectomy on 12/10/23 however the surgery was cancelled because of severe hypokalemia reached out for management of hypokalemia She is known to have chronic hypokalemia 3-3.5 mmol/L It was controlled omn oral supplements however more difficult to control since she had the bariatric surgery. 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 in the settings of bariatric surgery Since surgery potassium has been ~2.4 mmol/L BP is uncontrolled: Currently on amlodipine 10 mg once daily and aldactone 25 mg once daily PLAN: -Increase aldactone to 50 mg twice daily -Change potassium chloride 40 meq twice daily from capsules to oral packets -Check magnesium (she has mild diarrhea from mag oxide, might stop if magnesium is high normal) -Repeat labs this Saturday, will increase KCL dose and aldactone dose as needed -Monitor BP at home -Will closely follow her till her potassium improves and she is able to undergo the adrenalectomy surgery I spent 60 minutes in the visit which included preparing to see the patient, [id number] patient care, completing clinical documentation, obtaining and/or reviewing separately obtained history, performing a medically appropriate examination, counseling and educating the patient/family/caregiver, ordering medications, tests, or procedures Manuel Alfaro MD Staff [employer]amic [employer] Professor Pager [phone] December 11, 2023 10:26 AM CC: REFERRING PROVIDER: Mario Sullivan MD PRIMARY CARE PHYSICIAN: Immanuel Kuhn DO documented in this encounter [facility] 12-06-2023 Instructions Bhavna Walters APRN.DIRECTOR OF RECREATION THERAPY - 12/06/2023 9:33 AM EDT PATIENT PREOPERATIVE INSTRUCTIONS Mario Sullivan MD has scheduled you for your procedure at this surgery center: [facility] [place] Scheduling Office: [phone] --[address] [place] [address]. Please read below carefully for your personalized [...] Procedures: - YOU MUST HAVE A RESPONSIBLE RN FLOAT TAKE YOU HOME. A ASSISTANT BRANCH OPERATIONS MANAGER OR CEREAL MILLER CANNOT BE MADE A RESPONSIBLE RN FLOAT. - We recommend that a responsible person [...] call the Saturday before. Your surgeon s personnel scheduler will tell you what time to call the office. - If you have not reached the departmental personnel scheduler by 5 P.M., call [phone] after 5 P.M. the day before your surgery. Please be aware that emergency situations arise, which may delay or change your surgical time. If this happens, we will notify you as soon as possible and regret any inconvenience. If you already have an Advance Directive, please fax a copy to [phone] or email to for it to be [...] and scanned into your chart that day. Bhavna Walters APRN.CNP documented in this encounter [facility] 12-06-2023 History and physical note HISTORY AND PHYSICAL EXAMINATION SERVICE DATE: 12/06/2023 SERVICE TIME: 8:55 AM PRIMARY CARE PHYSICIAN: Immanuel Kuhn DO REASON FOR VISIT: Heidi Joy is a 33 year old female who is scheduled for Left - ROBOTIC LAPAROSCOPIC LEFT TRANSABDOMINAL ADRENALECTOMY at the request of Dr. Mario Sullivan for consultation. My final recommendation will be communicated back to the requesting physician by way of shared medical record or letter. Assessment Patient has the following medical conditions which may affect raisa-operative course: Migraine with aura and without status [...] large neck Non-male patient STOP-Bang Score: 1 [id number] Score: Age: <65 Sex: female CHF history: No Hypertension history: Yes Stroke/TIA/thromboembolism history: No Vascular disease history: No Diabetes history: Yes [id number] Score: 3 ARISCAT Score: Age: <=50 Preoperative [...] Lu present: no Lip Bite Test: I Microretrognathia/Micronagthia/Re cessed Chin: No DENTAL Dental findings: teeth intact. [...] AV Block no history of angina, CHF, [place], cardiac surgery or stents. Denies rest pain, gangrene or revascularization/amputation for PVD. GI: History of Gastric bypass No history of GI symptoms or problems. 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 SIGNATURE: Bhavna Walters APRN.CHRISTIANA PATIENT NAME: Heidi Joy DATE: 12/06/2023 TIME: 9:19 AM [facility] 12-06-2023 History and physical note HISTORY AND PHYSICAL EXAMINATION SERVICE DATE: 12/06/2023 SERVICE TIME: 8:55 AM PRIMARY CARE PHYSICIAN: Immanuel Kuhn DO REASON FOR VISIT: Heidi Joy is a 33 year old female who is scheduled for Left - ROBOTIC LAPAROSCOPIC LEFT TRANSABDOMINAL ADRENALECTOMY at the request of Dr. Mario Sullivan for consultation. My final recommendation will be communicated back to the requesting physician by way of shared medical record or letter. Assessment Patient has the following medical conditions which may affect raisa-operative course: Migraine with aura and without status [...] large neck Non-male patient STOP-Bang Score: 1 [id number] Score: Age: <65 Sex: female CHF history: No Hypertension history: Yes Stroke/TIA/thromboembolism history: No Vascular disease history: No Diabetes history: Yes [id number] Score: 3 ARISCAT Score: Age: <=50 Preoperative [...] Lu present: no Lip Bite Test: I Microretrognathia/Micronagthia/Re cessed Chin: No DENTAL Dental findings: teeth intact. [...] Procedure Laterality Date EXCIS SUPRATENT BRAIN TUMOR 2018 GASTRIC BYPASS HX 12/11/2022 PART EXCIS PLANTAR [...] AV Block no history of angina, CHF, FL, cardiac surgery or stents. Denies rest pain, gangrene or revascularization/amputation for PVD. GI: History of Gastric bypass No history of GI symptoms or problems. 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 SIGNATURE: Bhavna Walters APRN.CNP PATIENT NAME: Heidi Joy DATE: 12/06/2023 TIME: 9:19 AM documented in this encounter [facility] 11-19-2023 Miscellaneous Notes Pt want to confirm one or two weeks for being off of work after surgery? documented in this encounter [facility] 11-15-2023 Miscellaneous Notes Called patient: she states she does not have any symptoms. She was advises to go to the ER. She verbalized understanding. Griselda Vann RN [facility] Contacted Nurses 2:09 PM Critical Value Potassium 2.4 received from Lab (Daryl) at 2:05. Notified Jasmyne at 2:11. Griselda Vann RN [facility] documented in this encounter [facility] 11-14-2023 Miscellaneous Notes Images from the original [...] MD Clinical Fellow PGY-5 Endocrinology and Metabolism [place] Pager:[phone] documented in this encounter [facility] 10-25-2023 Miscellaneous Notes AVS lateralized to the left adrenal gland with a ratio of 35:1. I recommended laparoscopic left adrenalectomy lateral transabdominal or posterior approach. Will decide on the day of the surgery. Will schedule her surgery. Mario Sullivan MD documented in this encounter [facility] 09-13-2023 Telephone encounter Note Contacted pt, went over results above, pt understood and had no further questions at the time of call [facility] 09-13-2023 Miscellaneous Notes Contacted pt, went over results above, pt understood and had no further questions at the time of call Please let pt know her BP was elevated at office visit today. She should monitor her BP at home and to ER if any increase from her baseline readings, otherwise follow up with PCP documented in this encounter [facility] 09-13-2023 Telephone encounter Note Please let pt know her BP was elevated at office visit today. She should monitor her BP at home and to ER if any increase from her baseline readings, otherwise follow up with PCP [facility] 09-13-2023 History of Present illness [...] tablet; Refill: 0 documented in this encounter [facility] 09-12-2023 Note [facility] 09-12-2023 History of Present illness Narrative This was a virtual visit. I have communicated my name and active licensure. The patient's identity and physical location were verified at the time of this visit. Either the patient or their legal clearance representative has been informed of the risks and benefits of -- and alternatives to -- treatment through a remote evaluation and consents to proceed with the evaluation remotely. Endocrinology Metabolism [place] [facility] Mario Sullivan M.D. Section of Endocrine Surgery and Advanced Laparoscopic Surgery [address] [place] [address], [facility] [address] [address] ENDOCRINE SURGERY NEW CONSULTATION NAME: Heidi Joy CLINIC NO: [id number] : 1990 Surgeon: Dr. Mario Sullivan REFERRING PROVIDER: Vikki Balderrama [id number] [place] [id number] The patient was referred by the above [...] which included preparing to see the patient, [id number] patient care, completing clinical documentation, obtaining and/or reviewing separately obtained history, counseling and educating the patient/family/caregiver, ordering medications, tests, or procedures, communicating with other HCPs (not separately reported), independently interpreting results (not separately reported), communicating results to the patient/family/caregiver, and care coordination (not separately reported). Sincerely, Mario Sullivan MD 09/12/2023 CC: Vikki Balderrama [id number] [id number] documented in this encounter [facility] 09-09-2023 Evaluation note Encounter Date Diagnosis Assessment Notes Sep, Hypokalemia (ICD-10 - E87.6) She has hypertension with hypokalemia and high 24-hour urinary aldosterone level consistent with primary hyperaldosteronism. Her 24-hour urinary potassium may be low due to the critically low serum potassium. She is also reported to have elevated serum aldosterone. She was seen by the endocrine at [facility] and now referred to the surgery [...] - E27.9) Continue follow-up with endocrine at [facility]. Sep, Other Patient was advised due to the primary hyperaldosteronism she can follow-up endocrine. She can refer to our office in future if needed. [email or web address] Other 02-02-2024 Miscellaneous Notes* Addendum Note - [...] Adrenal Mass PATIENT DEMOGRAPHICS Name: Heidi Joy [facility]#: [id number] : 1990 AGE: [age] year old Contact Numbers: Home: (home) Work: There is no work phone number on file. PATIENT PHYSICIAN INFORMATION Referring Doctor: Address: Phone: Teller Manager: Address: Phone: PCP: Immaunel Kuhn [address] [address] PAST TREATMENT Office notes: SEE EPIC Medications: [...] - 340.0 ug/dL 188.1 Imaging Reports: SEE [facility] CD of Images: SEE [facility] FNA: no FNA Slides: N/A Has the patient ever had thyroid or parathyroid surgery before: No Operative Reports: NONE AVAILABLE Pathology Reports: NONE AVAILABLE [facility] Instructions* Patient Instructions* Vikki Balderrama MD [...] to let me know [facility] History of Present illness Narrative* Vikki Balderrama MD - 08/20/2023 1:43 PM EST Endocrinology and Metabolism [place] Initial Clinic Visit Note Virtual Visit (Audio/Visual) I have discussed the nature of this visit with the patient which will occur via [facility] (Phone, Virtual Visit) and he agrees to proceed with this interaction . I have communicated my name and active licensure. The patient's identity and physical location wereverified at the time of this visit. Either the patient or their legal clearance representative has been informed of the risks [...] and nephrology. She recently met with a hand laminator and was recommended to undergo some work-up. [...] oriented x 3 Previous laboratory results: 08/07/2022: Jesus 10 Plasma renin activity 0.4 Imaging: CT [...] to get the labs done at [facility], I provided her with the lab phone number to make an appointment. Vikki Balderrama MD [facility] Endocrinology and Metabolism [place] - [facility] [phone] Medical Decision Making: Problems: Moderate: 1+ chronic illnesses with change Data: Unique source(s) for external note(s) reviewed: 1 Unique test result(s) reviewed: 3+ Unique test(s) ordered: 3+ Medical Decision Making Level: 4 - Moderate documented [facility] Evaluation note* Encounter Date Diagnosis Assessment Notes Treatment Notes Treatment Clinical Notes Aug, Hypokalemia (ICD-10 - E87.6) It was a pleasure to see Mrs. Joy in our office for evaluation and management of hypokalemia. As you know she has a longstanding hypokalemia and metabolic alkalosis and hypertension. Differential diagnoses are broad and include primary hyperaldosteronism, Hunter syndrome, Gettleman syndrome and Bartter syndrome. I [...] of the adrenal nodule with serial imaging. [email or web address] Other 04-03-2023 NoteIn person visit Chief complaint: [...] repeat MRI brain w/wout contrast. [facility]ind[facility] Lem[facility] NoteIn person visit Chief complaint: known olidodendroglioma [place]: 32 y/o Left handed - she does not work. 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 She had migraines and high blood [...] after the MRI is completed. Ravindra Lema MDUnOhioHealth Van Wert HospitalChief complaint Narrative - ReportedHEIDI JOY is being seen for a consultation for. POC Dr. Benson, [facility] Bariatrics- [facility]ariat[facility] sx[facility] [address] DO Work Phone: Evaluation + Plan note No data available for this section [facility] Evaluation noteNo assessment information available [facility] Work Phone: Evaluation noteNo InformationNort [employer] Other Evaluation note* Diagnosis Adenoma of left adrenal gland- Primary Benign neoplasm of adrenal gland [facility] Diagnosis Adenoma of left adrenal gland- Primary Benign neoplasm of adrenal gland [facility]* Diagnosis Primary hyperaldosteronism (HCC)- Primary Hyperaldosteronism, unspecified Adenoma of left adrenal gland Benign neoplasm of adrenal gland [facility]* Diagnosis Generalized anxiety disorder (CMS/HCC) Generalized anxiety disorder Bipolar affective disorder, currently depressed, mild (CMS/HCC) Bipolar I disorder, most recent episode (or current) depressed, mild documented in this encounter [facility]* Diagnosis Acute bronchitis, unspecified organism- Primary documented in this encounter [facility]* Diagnosis Adenoma of left adrenal gland- Primary Benign neoplasm of adrenal gland Adenoma of left adrenal gland Benign neoplasm of adrenal gland [facility] Primary hyperaldosteronism (HCC)- Primary Hyperaldosteronism, unspecified Adenoma of left adrenal gland Benign neoplasm of adrenal gland documented in this encounter [facility]* Diagnosis Pre-op evaluation- Primary Preoperative examination, [...] gland * Assessment & Plan Note - Bhavna Walters APRN.CNP - 12/06/2023 9:46 AM EDTAssociated Problem(s): History of bariatric surgery Assessment: History of Gastric bypass 12/2022 Body mass index is 28.66 kg/m . * Assessment & Plan Note - Bhavna Walters APRN.CNP - 12/06/2023 9:46 AM EDTAssociated Problem(s): Anxiety Assessment: stable on medication Denies any suicidal ideation Following with Psychology Medication Management and changes being made * Assessment & Plan Note - Bhavna Walters APRN.CNP - 12/06/2023 9:46 AM EDTAssociated Problem(s): Depressive disorder Assessment: stable on medication Denies any suicidal ideation Following with Psychology Medication Management and changes being made * Assessment & Plan Note - Bhavna Walters APRN.CNP - 12/06/2023 9:45 AM EDTAssociated Problem(s): Bipolar affective disorder, currently depressed, mild (HCC) Assessment: stable on medication Denies any suicidal ideation Following with Psychology Medication Management and changes being made * Assessment & Plan Note - Bhavna Walters APRN.CNP - 12/06/2023 9:44 AM EDTAssociated Problem(s): 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 No chemo or radiation * Assessment & Plan Note - Bhavna Walters APRN.CNP - 12/06/2023 9:39 AM EDTAssociated Problem(s): Iron deficiency Assessment: with history of anemia secondary to gastric bypass Hemoglobin (g/dL) Date Value 11/14/2023 14.7 01/15/2020 12.7 Hematocrit (%) Date Value 11/14/2023 43.9 01/15/2020 41.4 WBC (k/uL) Date Value 11/14/2023 6.97 01/15/2020 8.63 * Assessment & Plan Note - Bhavna Walters APRN.DIRECTOR OF RECREATION THERAPY - 12/06/2023 9:35 AM EDTAssociated Problem(s): Acute [...] Final * Assessment & Plan Note - Bhavna Walters APRN.CNP - 12/06/2023 9:04 AM EDTAssociated Problem(s): First degree AV block Assessment: stable Noted for several years on EKGs * Assessment & Plan Note - Bhavna Walters APRN.CNP - 12/06/2023 9:04 AM EDTAssociated Problem(s): Migraine with aura and without status migrainosus, not intractable Assessment: Imitrex as needed documented [facility] this encounter [facility]* Diagnosis Chronic hypokalemia- Primary Hypopotassemia Adenoma of left adrenal gland Benign neoplasm of adrenal gland Primary hyperaldosteronism (HCC) Hyperaldosteronism, unspecified Uncontrolled hypertension Unspecified essential hypertension Hypertension secondary to endocrine disorders Other secondary hypertension, unspecified History of bariatric surgery Bariatric surgery status documented in this encounter [facility]* Diagnosis Chronic hypokalemia- Primary Hypopotassemia documented in this encounter [facility]* Diagnosis Pre-op evaluation- Primary Preoperative examination, unspecified Oligodendroglioma of brain (HCC) Malignant neoplasm of brain, unspecified site History of bariatric surgery Bariatric surgery status Iron deficiency Iron deficiency anemia, unspecified Adenoma of left adrenal gland Benign neoplasm of adrenal gland Primary hyperaldosteronism (HCC) Hyperaldosteronism, unspecified Tobacco use Tobacco use disorder History of hypokalemia Personal history of other endocrine, metabolic, and immunity disorders Adenoma of left adrenal gland Benign neoplasm of adrenal gland Primary hyperaldosteronism (HCC) Hyperaldosteronism, unspecified * Assessment & Plan Note - Phuong Rock APRN.CNP - 01/20/2024 9:14 AM EDT Associated Problem(s): History of hypokalemia Assessment: stable on oral potassium supplement. * Assessment & Plan Note - Phuong Rock APRN.CNP - 01/20/2024 9:13 AM EDT Associated Problem(s): History of bariatric surgery Assessment: hx of gastric bypass 12/2022. Stable. * Assessment & Plan Note - Phuong Rock APRN.CNP - 01/20/2024 9:13 AM EDT Associated Problem(s): Oligodendroglioma of brain (HCC) Assessment: hx of resection 2019. No chemo or radiation. * Assessment & Plan Note - Phuong Rock APRN.CNP - 01/20/2024 9:12 AM EDT Associated Problem(s): Adenoma of left adrenal gland Assessment: Scheduled for surgery * Assessment & Plan Note - Phuong Rock APRN.CNP - 01/20/2024 9:12 AM EDT Associated Problem(s): Iron deficiency Assessment: stable. Hemoglobin (g/dL) Date Value 11/14/2023 14.7 10/22/2023 13.4 01/15/2020 12.7 * Assessment & Plan Note - Phuong Rock APRN.CNP - 01/20/2024 9:12 AM EDT Associated Problem(s): Tobacco use Assessment: Current smoker, aware of pre-op instructions. documented in this encounter [facility]* Diagnosis Chronic hypokalemia- Primary Hypopotassemia Primary hyperaldosteronism (HCC) Hyperaldosteronism, unspecified Uncontrolled hypertension Unspecified essential hypertension documented [facility] this encounter [facility]* Diagnosis Secondary adrenal insufficiency (HCC)- Primary Glucocorticoid deficiency Primary hyperaldosteronism (HCC) Hyperaldosteronism, unspecified Adenoma of left adrenal gland Benign neoplasm of adrenal gland documented in this encounter [facility]* Diagnosis Primary hyperaldosteronism (HCC)- Primary Hyperaldosteronism, unspecified documented in this encounter [facility]* Diagnosis Pre-op evaluation- Primary Preoperative examination, [...] History of bariatric surgery Bariatric surgery status Pre-op evaluation- Primary Preoperative examination, unspecified Oligodendroglioma of brain (HCC) Malignant neoplasm of brain, unspecified site History of bariatric surgery Bariatric surgery status Iron deficiency Iron deficiency anemia, unspecified Adenoma of left adrenal gland Benign neoplasm of adrenal gland Primary hyperaldosteronism (HCC) Hyperaldosteronism, unspecified Tobacco use Tobacco use disorder History of hypokalemia Personal history of other endocrine, metabolic, and immunity disorders Secondary adrenal insufficiency (HCC)- Primary Glucocorticoid deficiency documented [facility] this [facility]* Diagnosis Pre-op evaluation- Primary Preoperative examination, [...] History of bariatric surgery Bariatric surgery status Pre-op evaluation- Primary Preoperative examination, unspecified Oligodendroglioma of brain (HCC) Malignant neoplasm of brain, unspecified site History of bariatric surgery Bariatric surgery status Iron deficiency Iron deficiency anemia, unspecified Adenoma of left adrenal gland Benign neoplasm of adrenal gland Primary hyperaldosteronism (HCC) Hyperaldosteronism, unspecified Tobacco use Tobacco use disorder History of hypokalemia Personal history of other endocrine, metabolic, and immunity disorders Secondary adrenal insufficiency (HCC)- Primary Glucocorticoid deficiency [facility]* Diagnosis Generalized anxiety disorder (CMS/HCC) Generalized anxiety disorder Bipolar affective disorder, currently depressed, mild (CMS/HCC) Bipolar I disorder, most recent episode (or current) depressed, mild [facility] Diagnosis Anxiety Anxiety state, unspecified [facility]* Diagnosis Bipolar affective disorder, currently depressed, mild (CMS/HCC)- Primary Bipolar I disorder, most recent episode (or current) depressed, mild LUISITO (generalized anxiety disorder) (CMS/HCC) Generalized anxiety disorder Irritable bowel syndrome with both constipation and diarrhea Anastomotic ulcer Gastrojejunal ulcer, unspecified as acute or chronic, without mention of hemorrhage, perforation, or obstruction [facility]* Diagnosis , unspecified gestational age- Primary Missed menses [facility]* Diagnosis Generalized anxiety disorder (CMS/HCC) Generalized anxiety disorder Bipolar affective disorder, currently depressed, mild (CMS/HCC) Bipolar I disorder, most recent episode (or current) depressed, mild [facility]* Diagnosis Viral illness- Primary Unspecified viral infection, in conditions classified elsewhere and of unspecified site Pharyngitis, unspecified etiology [facility]* Diagnosis Generalized anxiety disorder (CMS/HCC) Generalized anxiety disorder Bipolar affective disorder, currently depressed, mild (CMS/HCC) Bipolar I disorder, most recent episode (or current) depressed, mild [facility]* Diagnosis Encounter for supervision of normal first in first trimester Encounter for drug screening care, antepartum Encounter for screening for chromosomal anomalies Screening for genetic disease carrier status documented [facility] this encounter [facility] Narrative - Reported* Type Description [...] 2 DIALBETES MYRA LITUS WITHOUT COMPLICATION, WITHOUT GROUP HOME CURRENT USE OF INSULIN Medical History [...] GASTRIC BYPASS 12/2022 Hospitalization History SEE ABOVE [email or web address] Other History general Narrative - Reported* Type [...] 2 DIALBETES MYRA LITUS WITHOUT COMPLICATION, WITHOUT SECTIONIZER CURRENT USE OF INSULIN Medical History MICROSYTIC ANEMIA Medical History BIPOLAR AFFECTIVE DISORDER, CURR ENTLY DEPRESSED, MILD Medical History CANNABIS ABUSE Medical History MALIGNANT NEOPLASM OF BRAIN Medical History Potassium infusions weekly at [facility] Surgical History brain tumor removed malignant 0 Surgical History DILATION AND CURETTAGE ESOPHAGO GASTRODUODENOSCOPY Surgical History INGROWN TOENAIL Surgical History ANKLE SCOPE PLANTAR FASCIOTOMY 2016 Surgical History RIGHT FRONTAL LOBEECTOMY 2018 Surgical History ENDOSCOPIC PLANTAR FASCIOTOMY 2 023 Surgical History GASTRIC BYPASS 12/2022 Hospitalization History SEE ABOVE Hospitalization History [place] for low potassi um 08/2023 [email or web address] Other History of Present illness Narrative* Patient [...] medication 9 4. Follow-up in 9 months [facility] [address] DO Work Phone: Hospital Discharge instructions Additional Instructions Keep your appt with [facility] Work Phone: Hospital Discharge instructions No data available for this section [facility] Progress note No data available for this section [facility] Reason for referral (narrative)* Outpatient Procedure (Routine) - Pending Review Specialty Diagnoses / Procedures Referred By Omari ochoa [facility] Diagnoses Pre-op evaluation Iron deficiency Migraine with aura and without status migrainosus, not intractable Procedures ECG COMPLETE ECG ROUTINE ECG W/LEAST 12 LDS W/I&R Bhavna Walters APRN.DIRECTOR OF RECREATION THERAPY [address] [place] [address] [facility] [place] [address] [place] [address] Referral ID Status Reason Start Date Expiration Date Visits Requested Visits Authorized [id number] Pending Review Auto-Generat ed Referral 12/06/2023 12/05/2024 1 1 [facility] Summary Purpose Family History Relationship Condition Age at Onset Recorded Date/T janki father Hypertension Unknown Heart disease Unknown Diabetes mellitus Unknown family member Family history of other condition Unknow n mother Hypertension Unknown Advance Directives Advance Directive Response Recorded Date/ Time Advance Directives No November 08 1:58pm Advance Directive Response Recorded Date/ Time Advance Directives No November 08 2:58pm Chief Complaint and Reason for Visit Chief Complaint e87.6 Chief Complaint e87.6 M72.2 Z01.818 Chief Complaint Renal Hypokalemia e87.6 e87.3 i10 e27.9 Chief Complaint abd pain,chest pain Reason for Referral Specialty Diagnoses / Procedures Referred By Omari ochoa Referred To Contact Diagnoses Adenoma of left adrenal gland Procedures REFER TO PACC - PRE ANESTHESIA CONSULTATION CLINIC OFFICE/OUTPATIENT [facility] 60 MINUTES Natasha Chase MD [address] [place] [address] Referral ID Status Reason Start Date Expiration Date Visits Requested Visits Authorized [id number] Authorized PCP Requested Referral 11/12/2023 11/04/2024 1 1 Additional Source Comments INFORMATION SOURCE (unrecogn ized section and content) DATE CREATED AUTHOR 01/29/2018 [facility] DATE CREATED AUTHOR AUTHOR'S ORGANIZ ATION 03/21/2020 [facility] DATE CREATED AUTHOR AUTHOR'S ORGANIZ ATION 10/06/2021 [facility] dical Specialist DATE CREATED AUTHOR AUTHOR'S ORGANIZ ATION 06/07/2022 [facility] DATE CREATED AUTHOR AUTHOR'S ORGANIZ ATION 11/19/2022 [facility] DATE CREATED AUTHOR AUTHOR'S ORGANIZ ATION 12/14/2022 [facility] DATE CREATED AUTHOR AUTHOR'S ORGANIZ ATION 03/19/2023 [facility] ical Center DATE CREATED AUTHOR AUTHOR'S ORGANIZ ATION 03/02/2024 [facility] y[facility] DATE CREATED AUTHOR AUTHOR'S ORGANIZ ATION 03/29/2024 [facility] DATE CREATED AUTHOR AUTHOR'S ORGANIZ ATION 04/14/2024 [facility] DATE CREATED AUTHOR AUTHOR'S ORGANIZ ATION 05/06/2024 [facility] DATE CREATED AUTHOR AUTHOR'S ORGANIZ ATION 05/25/2024 [facility] dical Specialists [...] Active Manasa Rhodes DPM Attending Provider Active Threshing Operator Relationship Specialty Start Date End Date Immanuel Kuhn DO [address] [place] [address] PCP - General Family Medicine 10/23/12 Esther Angeles MD [address] [place] [phone] Referring Obstetrics 01/28/20 Татьяна Carter PA-C [address] [place] [address] Referring Physician Binder Lockstitch 08/08/23 Team Status: Inactive Member Role Status Dates Zara Ralph MD Attending Provider Active Start : August 19, 2023 End: August 19, 2023 Team Status: Inactive Member Role Status Dates Immanuel Kuhn DO Primary Care Provider Active St art: August 30, 2023 End: August 30, 2023 Zara Ralph MD Attending Provider Active Start : August 30, 2023 End: August 30, 2023 Threshing Operator Relationship Specialty Start Date End Date Immanuel Kuhn DO [address] [place] [address] PCP - General Family Medicine 10/23/12 Esther Angeles MD [address] [place] [phone] Referring Obstetrics 01/28/20 Татьяна Carter PA-C [address] [place] [address] Referring Physician Binder Lockstitch 08/08/23 Threshing Operator Relationship Specialty Start Date End Date Immanuel Kuhn DO [address] [place] [address] PCP - General Family Medicine 10/23/12 Esther Angeles MD [address] [place] [phone] Referring Obstetrics 01/28/20 Татьяна Carter PA-C [address] [place] [address] Referring Physician Binder Lockstitch 08/08/23 Threshing Operator Relationship Specialty Start Date End Date Immanuel Kuhn DO [address] [place] [address] PCP - General Family Medicine 12/25/22 Татьяна Carter PA [address] [place] [address] PCP - [facility] 02/02/23 Threshing Operator Relationship Specialty Start Date End Date Immanuel Kuhn DO [address] [place] [address] PCP - General Family [facility] 10/23/12 Esther Angeles MD [address] [place] [phone] Referring Obstetrics 01/28/20 Татьяна Carter, PA-C [address] [place] [address] Referring Physician Binder Lockstitch 08/08/23 Threshing Operator Relationship Specialty Start Date End Date Immanuel Kuhn DO [address] [place] [address] PCP - General Family Medicine 12/25/22 Татьяна Carter PA [address] [place] [address] PCP - [facility] 02/02/23 Threshing Operator Relationship Specialty Start Date End Date Immanuel Kuhn DO [address] [place] [address] PCP - General Family Medicine 12/25/22 Татьяна Carter PA [address] [place] [address] PCP - [facility] 02/02/23 Threshing Operator Relationship Specialty Start Date End Date Immanuel Kuhn DO [address] [place] [address] PCP - General Family [facility] 12/25/22 Татьяна Carter PA [address] [place] [address] PCP - [facility] 02/02/23 Threshing Operator Relationship Specialty Start Date End Date Immanuel Kuhn DO [address] [place] [address] PCP - General Family Medicine 10/23/12 Esther Angeles MD [address] [place] [address] Referring Obstetrics 01/28/20 Татьяна Carter PA-C [address] [place] [address] Referring Physician Binder Lockstitch 08/08/23 Threshing Operator Relationship Specialty Start Date End Date Immanuel Kuhn DO [address] [place] [address] PCP - General Family Medicine 10/23/12 Esther Angeles MD [address] [place] [phone] Referring Obstetrics 01/28/20 Татьяна Carter PA-C [address] [place] [address] Referring Physician Binder Lockstitch 08/08/23 Threshing Operator Relationship Specialty Start Date End Date Immanuel Kuhn DO [address] [place] [address] PCP - General Family Medicine 10/23/12 Esther Angeles MD [address] [place] [phone] Referring Obstetrics 01/28/20 Татьяна Carter PA-C [address] [place] [address] Referring Physician Binder Lockstitch 08/08/23 Threshing Operator Relationship Specialty Start Date End Date Immanuel Kuhn DO [address] [place] [address] PCP - General Family Medicine 10/23/12 Esther Angeles MD [address] [place] [phone] Referring Obstetrics 01/28/20 Татьяна Carter PA-C [address] [place] [address] Referring Physician Binder Lockstitch 08/08/23 Threshing Operator Relationship Specialty Start Date End Date Immanuel Kuhn DO [address] [place] [address] PCP - General Family Medicine 10/23/12 Esther Angeles MD [address] [place] [phone] Referring Obstetrics 01/28/20 Татьяна Carter PA-C [address] [place] [address] Referring Physician Binder Lockstitch 08/08/23 Threshing Operator Relationship Specialty Start Date End Date Immanuel Kuhn DO [address] [place] [address] PCP - General Family Medicine 10/23/12 Esther Angeles MD [address] [place] [address] Referring Obstetrics 01/28/20 Татьяна Carter PA-C [address] [place] [address] Referring Physician Binder Lockstitch 08/08/23 Threshing Operator Relationship Specialty Start Date End Date Immanuel Kuhn DO [address] [place] [address] PCP - General Family Medicine 10/23/12 Esther Angeles MD [address] [place] [phone] Referring Obstetrics 01/28/20 Татьяна Carter PA-C [address] [place] [address] Referring Physician Binder Lockstitch 08/08/23 Threshing Operator Relationship Specialty Start Date End Date Immanuel Kuhn DO [address] [place] [address] PCP - General Family Medicine 10/23/12 Esther Angeles MD [address] [place] [address] Referring Obstetrics 01/28/20 Татьяна Carter PA-C [address] [place] [address] Referring Physician Binder Lockstitch 08/08/23 Threshing Operator Relationship Specialty Start Date End Date Immanuel Kuhn DO [address] [place] [address] PCP - General Family Medicine 10/23/12 Esther Angeles MD [address] [place] [address] Referring Obstetrics 01/28/20 Татьяна Carter PA-C [address] [place] [address] Referring Physician Binder Lockstitch 08/08/23 Threshing Operator Relationship Specialty Start Date End Date Immanuel Kuhn DO [address] [place] [address] PCP - General Family Medicine 10/23/12 Esther Angeles MD [address] [place] [address] Referring Obstetrics 01/28/20 Татьяна Carter PA-C [address] [place] [address] Referring Physician Binder Lockstitch 08/08/23 Threshing Operator Relationship Specialty Start Date End Date Immanuel Kuhn DO [address] [place] [address] PCP - General Family Medicine 10/23/12 Esther Angeles MD [address] [place] [address] Referring Obstetrics 01/28/20 Татьяна Carter PA-C [address] [place] [address] Referring Physician Binder Lockstitch 08/08/23 Threshing Operator Relationship Specialty Start Date End Date Immanuel Kuhn DO [address] [place] [address] PCP - General Family Medicine 10/23/12 Esther Angeles MD [address] [place] [phone] Referring Obstetrics 01/28/20 Татьяна Carter PA-C [address] [place] [address] Referring Physician Binder Lockstitch 08/08/23 Threshing Operator Relationship Specialty Start Date End Date Immanuel Kuhn DO [address] [place] [address] PCP - General Family Medicine 10/23/12 Esther Angeles MD [address] [place] [phone] Referring Obstetrics 01/28/20 Татьяна Carter PA-C [address] [place] [address] Referring Physician Binder Lockstitch 08/08/23 Team Status: Inactive Member Role Status Dates Immanuel Kuhn DO Primary Care Provider Active St art: February 21, 2024 End: February 21, 2024 Eliot Dawson APRN Emergency Provider Active Start: February 21, 2024 End: February 21, 2024 Threshing Operator Relationship Specialty Start Date End Date Immanuel Kuhn DO [address] [place] [address] PCP - General Family Medicine 10/23/12 Esther Angeles MD [address] [place] [phone] Referring Obstetrics 01/28/20 Татьяна Carter, PA-C [address] [place] [address] Referring Physician Binder Lockstitch 08/08/23 Threshing Operator Relationship Specialty Start Date End Date Immanuel Kuhn DO [address] [place] [address] PCP - General Family Medicine 10/23/12 Esther Angeles MD [address] [place] [address] Referring Obstetrics 01/28/20 Татьяна Carter PA-C [address] [place] [address] Referring Physician Binder Lockstitch 08/08/23 Threshing Operator Relationship Specialty Start Date End Date Immanuel Kuhn DO [address] [place] [address] PCP - General Family Medicine 12/25/22 Татьяна Carter, PA [address] [place] [address] PCP - [facility] 02/03/24 Threshing Operator Relationship Specialty Start Date End Date Immanuel Kuhn DO [address] [place] [address] PCP - General [facility] 12/25/22 Татьяна Carter, PA [address] [place] [address] PCP - [facility] 02/03/24 Threshing Operator Relationship Specialty Start Date End Date Immanuel Kuhn DO [address] [place] [address] PCP - [facility] 12/25/22 Татьяна Carter, PA [address] [place] [address] PCP - [facility] 02/03/24 Threshing Operator Relationship Specialty Start Date End Date Immanuel Kuhn DO [address] [place] [address] PCP - [facility] 12/25/22 Татьяна Carter, PA [address] [place] [address] PCP - [facility] 02/03/24 Threshing Operator Relationship Specialty Start Date End Date Immanuel Kuhn DO [address] [place] [address] PCP - [facility] 12/25/22 Татьяна Carter, PA [address] [place] [address] PCP - [facility] 02/03/24 Threshing Operator Relationship Specialty Start Date End Date Immanuel Kuhn DO [address] [place] [address] PCP - [facility] 12/25/22 Татьяна Carter, PA [address] [place] [address] PCP - [facility] 02/03/24 Threshing Operator Relationship Specialty Start Date End Date Immanuel Kuhn DO [address] [place] [address] PCP - [facility] 12/25/22 Татьяна Carter, PA [address] [place] [address] PCP - [facility] 02/03/24 Threshing Operator Relationship Specialty Start Date End Date Immanuel Kuhn DO [address] [place] [address] PCP - [facility] 12/25/22 Татьяна Carter, PA [address] [place] [address] PCP - [facility] 02/03/24 Threshing Operator Relationship Specialty Start Date End Date Immanuel Kuhn DO [address] [place] [address] PCP - General Family Medicine 12/25/22 Татьяна Carter PA [address] [place] [address] PCP - [facility] 02/03/24 Threshing Operator Relationship Specialty Start Date End Date Immanuel Kuhn DO [address] [place] [address] PCP - General Family Medicine 12/25/22 Татьяна Carter PA [address] [place] [address] PCP - [facility] 02/03/24 Goals (unrecognized section and content) Goals may be documented in a n alternate sectionGoals may be documented in an alternate sectionNo InformationNo InformationGoals may be documented in an alternate sectionNo InformationGoals may be documented in an alternate section No data available for this section No data available for this section No data available for this section REASON FOR VISIT (unrecogniz ed section and content) Reason Comments New Patient Adrenal Reason Comments Appointment Called patient and l eft a message that patient was added to 's schedule for a virtual appointment for 09/12 at 11AM per . [employer] message and mailed out appointment reminder Reason Comments Consult FACE SHEET Reason Comments Adrenal Specialty Diagnoses / Procedures Referred By Contac t Referred To Contact Diagnoses Adenoma of left adrenal gland Procedures CONSULT TO ENDOCRINE SURGERY OFFICE/OUTPATIENT [facility] 60 [place] [address] [id number] Referral ID Status Reason Start Date Expiration Date V isits Requested Visits Authorized [id number] Closed PCP Requested Referral 09/04/2023 09/03/2024 1 1 Reason Comments Follow-up Reason Comments Overlay Operator - Other Reason Comments OR [facility] 12/10/23 Robotic lap left adr enalectomy Reason Comments Returning Patient's Call Results Reason Comments Critical Results Reason Comments Patient Question Pt want to confirm o ne or two weeks for being off of work after surgery? Reason Comments Consult Specialty Diagnoses / Procedures Referred By Contac t Referred To Contact ADMITTING Diagnoses Adenoma of left adrenal gland Procedures LAPAROSCOPY ADRENALECTOMY PARTIAL OR COM ROBOTIC LAPAROSCOPIC LEFT TRANSABDOMINAL ADRENALECTOMY [facility] [address] [place] [address] Referral ID Status Reason Start Date Expiration Date Visits Re quested Visits Authorized [id number] 1 1 Reason Comments Anesthesia Consult Reason Comments Follow Up Reason Comments F/U 6 Month Reason Comments ACTH Stim test Reason Onset Date Comments Med Refill 05/05/2024 Reason Comments Initial Visit Source Comments (unrecognize d section and content) In the event this informatio n is protected by the Federal Confidentiality of Alcohol and Drug Abuse Patient Records regulations: The Federal rules restrict any use of the information to criminally investigate or prosecute any alcohol or drug abuse patient.[facility] the event this information is protected by the Federal Confidentiality of Alcohol and Drug Abuse Patient Records regulations: The Federal rules restrict any use of the information to criminally investigate or prosecute any alcohol or drug abuse patient.[facility] Hospital[facility] the event this information is protected by the Federal Confidentiality of Alcohol and Drug Abuse Patient Records regulations: The Federal rules restrict any use of the information to criminally investigate or prosecute any alcohol or drug abuse patient.[facility] Hospital[facility] the event this information is protected by the Federal Confidentiality of Alcohol and Drug Abuse Patient Records regulations: The Federal rules restrict any use of the information to criminally investigate or prosecute any alcohol or drug abuse patient.[facility] HospitalIn the event this information is protected by the Federal Confidentiality of Alcohol and Drug Abuse Patient Records regulations: The Federal rules restrict any use of the information to criminally investigate or prosecute any alcohol or drug abuse patient.[facility] Hospital[facility] the event this information is protected by the Federal Confidentiality of Alcohol and Drug Abuse Patient Records regulations: The Federal rules restrict any use of the information to criminally investigate or prosecute any alcohol or drug abuse patient.[facility] HospitalIn the event this information is protected by the Federal Confidentiality of Alcohol and Drug Abuse Patient Records regulations: The Federal rules restrict any use of the information to criminally investigate or prosecute any alcohol or drug abuse patient.[facility] HospitalIn the event this information is protected by the Federal Confidentiality of Alcohol and Drug Abuse Patient Records regulations: The Federal rules restrict any use of the information to criminally investigate or prosecute any alcohol or drug abuse patient.[facility] HospitalIn the event this information is protected by the Federal Confidentiality of Alcohol and Drug Abuse Patient Records regulations: The Federal rules restrict any use of the information to criminally investigate or prosecute any alcohol or drug abuse patient.[facility] Hospital[facility] the event this information is protected by the Federal Confidentiality of Alcohol and Drug Abuse Patient Records regulations: The Federal rules restrict any use of the information to criminally investigate or prosecute any alcohol or drug abuse patient.[facility] Hospital[facility] the event this information is protected by the Federal Confidentiality of Alcohol and Drug Abuse Patient Records regulations: The Federal rules restrict any use of the information to criminally investigate or prosecute any alcohol or drug abuse patient.[facility] HospitalIn the event this information is protected by the Federal Confidentiality of Alcohol and Drug Abuse Patient Records regulations: The Federal rules restrict any use of the information to criminally investigate or prosecute any alcohol or drug abuse patient.[facility] HospitalIn the event this information is protected by the Federal Confidentiality of Alcohol and Drug Abuse Patient Records regulations: The Federal rules restrict any use of the information to criminally investigate or prosecute any alcohol or drug abuse patient.[facility] HospitalIn the event this information is protected by the Federal Confidentiality of Alcohol and Drug Abuse Patient Records regulations: The Federal rules restrict any use of the information to criminally investigate or prosecute any alcohol or drug abuse patient.[facility] HospitalIn the event this information is protected by the Federal Confidentiality of Alcohol and Drug Abuse Patient Records regulations: The Federal rules restrict any use of the information to criminally investigate or prosecute any alcohol or drug abuse patient.[facility] HospitalIn the event this information is protected by the Federal Confidentiality of Alcohol and Drug Abuse Patient Records regulations: The Federal rules restrict any use of the information to criminally investigate or prosecute any alcohol or drug abuse patient.[facility] HospitalIn the event this information is protected by the Federal Confidentiality of Alcohol and Drug Abuse Patient Records regulations: The Federal rules restrict any use of the information to criminally investigate or prosecute any alcohol or drug abuse patient.[facility] HospitalIn the event this information is protected by the Federal Confidentiality of Alcohol and Drug Abuse Patient Records regulations: The Federal rules restrict any use of the information to criminally investigate or prosecute any alcohol or drug abuse patient.[facility] HospitalIn the event this information is protected by the Federal Confidentiality of Alcohol and Drug Abuse Patient Records regulations: The Federal rules restrict any use of the information to criminally investigate or prosecute any alcohol or drug abuse patient.[facility] HospitalIn the event this information is protected by the Federal Confidentiality of Alcohol and Drug Abuse Patient Records regulations: The Federal rules restrict any use of the information to criminally investigate or prosecute any alcohol or drug abuse patient.[facility] HospitalIn the event this information is protected by the Federal Confidentiality of Alcohol and Drug Abuse Patient Records regulations: The Federal rules restrict any use of the information to criminally investigate or prosecute any alcohol or drug abuse patient.[facility] HospitalIn the event this information is protected by the Federal Confidentiality of Alcohol and Drug Abuse Patient Records regulations: The Federal rules restrict any use of the information to criminally investigate or prosecute any alcohol or drug abuse patient.[facility] HospitalIn the event this information is protected by the Federal Confidentiality of Alcohol and Drug Abuse Patient Records regulations: The Federal rules restrict any use of the information to criminally investigate or prosecute any alcohol or drug abuse patient.[facility] HospitalIn the event this information is protected by the Federal Confidentiality of Alcohol and Drug Abuse Patient Records regulations: The Federal rules restrict any use of the information to criminally investigate or prosecute any alcohol or drug abuse patient.[facility] HospitalIn the event this information is protected by the Federal Confidentiality of Alcohol and Drug Abuse Patient Records regulations: The Federal rules restrict any use of the information to criminally investigate or prosecute any alcohol or drug abuse patient.[facility] FOR RECORDS PERTAINING TO PATIENTS WHO [...] BE BASED ON THE PRIMARY CLINICAL RECORDS. [facility] [employer] [facility]. provides no warranty or guarantee of the accuracy or completeness of information in this document.
[2024-06-05 17:18] VITALS: BP 148/88; PULSE 83; TEMP 36.6; O2SAT 100; BMI 60.4
--- NOTE | 2024-06-05 17:27 | PC.NURSE ---
Patient reports intermittent brown/red vaginal bleeding, reports bleeding as spotting . Reports is approx. 7 weeks and had first OB appointment yesterday, reports OB aware of bleeding and did blood work at appointment yesterday. Denies any pain.
[2024-06-05 17:45] LABS: Basophils Absolute Auto 0.1 10^3/uL (0.0-0.1); Basophils Percent Auto 0.7 % (0.2-2.0); Eosinophils Absolute Auto 0.2 10^3/uL (0.0-0.7); Eosinophils Percent Auto 2.5 % (0.9-7.0); Hematocrit 45.4 % (36.0-48.0); Hemoglobin 14.5 g/dL (12.0-16.0); Immature Granulocytes Abs Auto 0.02 10^3/uL (0.00-0.03); Immature Granulocytes Pct Auto 0.2 % (0.0-0.5); Lymphocytes Absolute Auto 3.3 10^3/uL (1.2-3.8); Lymphocytes Percent Auto 35.7 % (20.5-60.0); Mean Corpuscular HGB Conc 31.9 g/dL (29.9-35.2); Mean Corpuscular Hemoglobin 30.3 pg (26.7-34.0); Mean Corpuscular Volume 94.8 fL (81.0-99.0); Mean Platelet Volume 10.6 fL (9.5-13.5); Monocytes Absolute Auto 0.6 10^3/uL (0.3-0.8); Monocytes Percent Auto 6.4 % (1.7-12.0); Neutrophils Percent Auto 54.5 % (43.0-75.0); Platelet Count 269 10^3/uL (150-450); Red Blood Count 4.79 10^6/uL (4.20-5.40); Red Cell Distribution Width 13.2 % (11.0-15.0); White Blood Count 9.2 10^3/uL (4.0-11.0)
[2024-06-05 18:10] LABS: Alanine Aminotransferase 18 U/L (14-59); Albumin Globulin Ratio 1.1; Albumin Level 3.9 g/dL (3.4-5.0); Alkaline Phosphatase 131 U/L (46-116); Anion Gap 16.8; Aspartate Amino Transferase 16 U/L (15-37); BUN Creatinine Ratio 27.1; Bilirubin Total 0.4 mg/dL (0.2-1.0); Calcium 8.9 mg/dL (8.5-10.1); Carbon Dioxide 22.2 mmol/L (21.0-32.0); Chloride 107 mmol/L (98-107); Estimated GFR (African America >60 (>=60 mL/min/1.73m^2); Estimated GFR (Non-African Ame 59 (>=60 mL/min/1.73m^2); Globulin 3.4 g/dL; Glucose 60 mg/dL (74-106); Sodium 142 mmol/L (136-145); Total Protein 7.3 g/dL (6.4-8.2)
--- NOTE | 2024-06-05 18:20 | ED_ITS ---
HPI - General Chief complaint: Vaginal Bleeding Stated complaint: CRAMPING, BLEEDING, 7 WEEKS Time Seen by Provider: 06/05/24 17:16 Source: patient Mode of arrival: walk-in Limitations: no limitations History of Present Illness HPI Narrative: The patient is 7 weeks presenting to us with vaginal bleeding that started almost 3 to 4 days ago. Suggest spotting and she did not have any and the ultrasound to confirm her yet This is the patient's first Related Data Home Medications ?Medication ?Instructions ?Recorded ?Confirmed buspirone 10 mg tablet 10 mg PO .amhs 08/23/23 01/23/24 lamotrigine 150 mg tablet 150 mg PO Q12H 08/23/23 01/23/24 lurasidone 60 mg tablet 60 mg PO .QD 08/23/23 01/23/24 magnesium oxide 400 mg (241.3 mg 400 mg PO .qd 08/23/23 01/23/24 magnesium) tablet Previous Rx's ?Medication ?Instructions ?Recorded amlodipine 10 mg tablet 10 mg PO DAILY #30 tabs 08/24/23 potassium chloride 20 mEq 20 meq PO BID #60 tabs 08/24/23 tablet,extended release(part/cryst) potassium chloride 20 mEq oral 40 meq PO DAILY 5 days #5 ea 11/16/23 packet Allergies Allergy/AdvReac Type Severity Reaction Status Date / Time No Known Drug Allergies Allergy Verified 06/05/24 17:23 Review of Systems ROS Status of ROS 10 or more systems reviewed and unremark able except as noted in history and below [facility] Medical History (Updated 06/05/24 @ 18:20 by Jessie Mahoney MD) Left adrenal mass ?E27.8 - Other specified disorders of adrenal gland (ICD-10) Acute hypokalemia ?E87.6 - Hypokalemia (ICD-10) Brain tumor ?D49.6 - Neoplasm of unspecified behavior of brain (ICD-10) Plantar fasciitis of left foot ?M72.2 - Plantar fascial fibromatosis (ICD-10) Plantar fasciitis of right foot ?M72.2 - Plantar fascial fibromatosis (ICD-10) Surgical History (Updated 08/27/23 @ 00:00 by ) History of gastric bypass ?Z98.84 - Bariatric surgery status (ICD-10) Bariatric surgery status ?Z98.84 - Bariatric surgery status (ICD-10) Family History (Updated 08/23/23 @ 20:41 by Joan Abdalla) Mother Family history of cancer Family history of diabetes mellitus Brother Family history of diabetes mellitus Father Family history of diabetes mellitus Family history of hypertension Family history of myocardial infarction Social History (Updated 08/23/23 @ 20:44 by Joan Abdalla) Smoking status: Current every day smoker Second hand tobacco smoke exposure: No Non-prescribed substance use: denies use Previous occupational history: unemployed Known occupational exposures/hazards: No Highest level of school completed/degree received: high school graduate Do you want help with school or training: No Are you now , , , , never or living with a partner: never In a typical week, how many times do you talk on the telephone with family, friends, or neighbors: 3 or more times per week How often do you get together with friends or relatives: once per week How often do you attend quaker or zoroastrianism services: never Do you belong to any clubs or organizations such as quaker groups unions, [employer] or athletic groups, or school groups: no Total score: 1 Score interpretation: A score of less than or equal to 1 indicates the most socially isolated. Little interest or pleasure in doing things: not at all Feeling down, depressed, or hopeless: not at all Feel stressed/tense/nervous/anxious/difficulty sleeping: very much Life stressors: unknown source of stress Due to disability, difficulty making decisions: No Do you think of yourself as: straight/heterosexual Gender Identity: female Exam Narrative Exam Narrative: Nurses notes and vital signs reviewed and patient is not hypoxic. General: Well-appearing and in no apparent distress. Skin: Warm, dry, no pallor noted. No rash. Head: Normocephalic, atraumatic. Neck: Supple, non-tender. Eye: Pupils are equal, round and EOMI. No scleral icterus. Ears, Nose, Mouth, and Throat: TM are clear, no nasal mucosal hypertrophy. Oral mucosa is moist, no posterior oropharynx erythema, uvula is mid-line Cardiovascular: Regular Rate and Rhythm without murmur, gallop or rub. Respiratory: No accessory muscle use or respiratory distress. Lungs are clear to auscultation, no wheezing, rales or rhonchi Chest Wall: no tenderness Back: No midline thoracic or lumbar vertebral tenderness. No CVA tenderness Musculoskeletal: normal ROM, no calf or popliteal tenderness, no lower extremity edema/swelling GI: Abdomen is soft, non-distended. Normal bowel sounds. No masses appreciated. No tenderness to palpation. No rebound, guarding, or rigidity noted. Neurological: A&O x4. No cranial nerve dysfunction observed. No truncal ataxia. Moves all extremities. Sensation intact. Psychiatric: Cooperative and interactive. Normal mood and affect. Constitutional Vital Signs, click to edit/add: Last Vital Signs Temp 97.9 F 06/05/24 17:18 Pulse 83 06/05/24 17:18 Resp 20 06/05/24 17:18 BP 148/88 H 06/05/24 17:18 Pulse Ox 100 06/05/24 17:18 O2 Del Method Room Air 06/05/24 17:18 Course Vital Signs Vital signs: Vital Signs Temperature 97.9 F 06/05/24 17:18 Pulse Rate 83 06/05/24 17:18 Respiratory Rate 20 06/05/24 17:18 Blood Pressure 148/88 H 06/05/24 17:18 Pulse Oximetry 100 06/05/24 17:18 Oxygen Delivery Method Room Air 06/05/24 17:18 Temperature 97.9 F 06/05/24 17:18 Pulse Rate 83 06/05/24 17:18 Respiratory Rate 20 06/05/24 17:18 Blood Pressure 148/88 H 06/05/24 17:18 Pulse Oximetry 100 06/05/24 17:18 Oxygen Delivery Method Room Air 06/05/24 17:18 MDM - OB/Uterine Contractions MDM Narrative Medical decision making narrative: The patient awaiting the results of the quantitative hcg Lab Data Labs: Lab Results 06/05/24 Range/Units 17:36 WBC 9.2 (4.0-11.0) 10^3/uL RBC 4.79 (4.20-5.40) 10^6/uL Hgb 14.5 (12.0-16.0) g/dL Hct 45.4 (36.0-48.0) % MCV 94.8 (81.0-99.0) fL MCH 30.3 (26.7-34.0) pg MCHC 31.9 (29.9-35.2) g/dL RDW 13.2 (11.0-15.0) % Plt Count 269 (150-450) 10^3/uL MPV 10.6 (9.5-13.5) fL Neut % (Auto) 54.5 (43.0-75.0) % Lymph % (Auto) 35.7 (20.5-60.0) % Tate % (Auto) 6.4 (1.7-12.0) % Eos % (Auto) 2.5 (0.9-7.0) % Baso % (Auto) 0.7 (0.2-2.0) % Neut # (Auto) 5.0 (1.4-6.5) 10^3/uL Lymph # (Auto) 3.3 (1.2-3.8) 10^3/uL Tate # (Auto) 0.6 (0.3-0.8) 10^3/uL Eos # (Auto) 0.2 (0.0-0.7) 10^3/uL Baso # (Auto) 0.1 (0.0-0.1) 10^3/uL Abs Immat Gran (auto) 0.02 (0.00-0.03) 10^3/uL Imm/Tot Granulo (auto) 0.2 (0.0-0.5) % Sodium 142 (136-145) mmol/L Potassium 4.0 (3.5-5.1) mmol/L Chloride 107 (98-107) mmol/L Carbon Dioxide 22.2 (21.0-32.0) mmol/L Anion Gap 16.8 BUN 29.0 H (7.0-18.0) mg/dL Creatinine 1.07 H (0.55-1.02) mg/dL Est GFR ( Amer) >60 (>=60 mL/min/1.73m^2) Est GFR (Non-Af Amer) 59 L (>=60 mL/min/1.73m^2) BUN/Creatinine Ratio 27.1 Glucose 60 L (74-106) mg/dL Calcium 8.9 (8.5-10.1) mg/dL Total Bilirubin 0.4 (0.2-1.0) mg/dL AST 16 (15-37) U/L ALT 18 (14-59) U/L Alkaline Phosphatase 131 H (46-116) U/L Total Protein 7.3 (6.4-8.2) g/dL Albumin 3.9 (3.4-5.0) g/dL Globulin 3.4 g/dL Albumin/Globulin Ratio 1.1 Discharge Plan Discharge Patient Disposition: Still a Patient
[2024-06-05 18:24] LABS: HCG Quantitative 1538 mIU/mL
--- NOTE | 2024-06-05 18:36 | US_ITS ---
The [address] [address] Patient Name: HEIDI DE LA VEGA MRN: [id number] date: 1990 Sex: F Assigned Patient Location: ER Current Patient Location: ER Accession/Order Number: [id number] Exam Date: 06/05/2024 18:45 Report Date: 06/05/2024 20:56 At the request of: VANDANA SANON Procedure: US OB <= 14 weeks fetus US OB <= 14 weeks fetus HISTORY: 7 weeks pregnanct hcg 1500s vaginal bleeding COMPARISONS: None TECHNIQUE: Transvaginal imaging of the pelvis was performed. FINDINGS: There is a gestational sac and a yolk sac. There is a small pole however, there is no heartbeat. Radnor-rump length is 0.34 cm. This could be due to early gestational age. RIGHT OVARY: Within normal limits without suspicious masses or cyst. There is normal blood flow. The right ovary measures 3.0 x 1.6 x 2.2 cm. LEFT OVARY: Within normal limits without suspicious masses or cyst. There is normal blood flow. The left ovary measures 3.2 x 2.5 x 2.5 cm. OTHER:There is no significant free fluid in the pelvis. There is no cervical funneling. There is no evidence of ectopic . US/US OB <= 14 weeks fetus IMPRESSION: There is a gestational sac, yolk sac and a pole. However, there is no heartbeat. This could be due to early gestational age. Continued correlation with serial beta hCG levels is recommended. Repeat sonography can be performed in one to 2 weeks. Electronically authenticated by: SAUD GARCIA Date: 06/05/2024 20:56
[2024-06-05 19:35] VITALS: BP 149/97; PULSE 70; O2SAT 100
[2024-06-05] MEDS: RHO(D) IMMUNE GLOBULIN 1,500 UNIT SYRINGE 1500 UNIT IV (22:16)
[2024-06-05 22:31] VITALS: BP 135/76
== END 2024-06-05 22:33 | disposition home or self-care (01) ==
PROVIDERS: Emergency Provider Emergency Medicine; PCP Family Medicine
DX: O20.0 Threatened abortion (principal); Z3A.01 Less than 8 weeks gestation of pregnancy; O26.891 Other specified pregnancy related conditions, first trimester; Z67.21 Type B blood, Rh negative; O99.841 Bariatric surgery status complicating pregnancy, first trimester
CPT/HCPCS: 36415; 76801; 76817; 80053; 84702; 85025; 86850; 86900; 86901; 96374; 99285; J2791

== ENCOUNTER 2024-06-06 14:55 | Emergency (ER) | payer OTHER, SELFPAY ==
[2024-06-06 14:58] VITALS: BP 173/99; PULSE 84; TEMP 36.8; O2SAT 96; BMI 27.4
--- OUTSIDE RECORDS SUMMARY | 2024-06-06 15:06 | XMS_ITS | CCD ---
Author Organization [facility] Care Team Providers Care Lockstitch Coat Joiner Name Role Phone Spasic, Carmelo Unavailable Unavailable Spasic, Carmelo Unavailable Unavailable IMMANUEL KUHN Unavailable Unavailable Immanuel Kuhn Unavailable Unavailable Unavailable DO Immanuel Kuhn Primary Care Provider [phone] NETTIE Prakash Attending Provider REJI Rhodes Attending Provider [phone] RAVINDRA LEMA Referring Unavailable RAVINDRA LEMA Attending [...] CHACKO Attending Unavailable ZAKIA BENSON Consulting Unavailable BAM, DR MILLER Primary Care Unavailable BAM, DR MILLER Primary Care Unavailable MISHernesto, DR [...] Penola P Unavailable Татьяна Carter PA-C Unavailable [phone] DO Immanuel Kuhn Primary Care Provider MD Zara Ralph Attending Provider [phone] Immanuel Kuhn DO Primary Care Provider Татьяна Angeles Unavailable Immanuel Kuhn DO Primary Care Provider [phone] DO Immanuel Kuhn Primary Care Provider [phone] JANA Dawson Emergency Provider Immanuel Kuhn Primary Care Unavailable Eliot Dawson Attending Unavailable Eliot Dawson Admitting Unavailable Zara Ralph Admitting Unavailable Immanuel Kuhn Primary Care Unavailable Zara Ralph Attending Unavailable ELIOT GARCÍA Primary Care Physician [phone] Kvng Marie Attending Unavaila ble Frank, Kvng Duran Admitting [...] Primary Care Unavailable PAMELA, MARIO Attending Unavailable IMMANUEL KUHN Primary Care Unavailable VEERAMACHANENI, [...] Referring Unavailable CUTLER, ELIOT L Attending Unavailable BAMIMMANUEL Referring Unavailable BRAUN, SHEILA L Attending Unavailable BRAUN, SHEILA L Attending Unavailable BRAUN, SHEILA L Attending Unavailable BRAUN, SHEILA L Attending Unavailable CUTLER, ELIOT L Attending Unavailable BRAUN, SHEILA L Attending Unavailable BRAUN, SHEILA L Attending Unavailable CUTLER, ELIOT L Attending Unavailable BAMIMMANUEL Referring Unavailable BRAUN, SHEILA L Attending Unavailable BRAUN, SHEILA L Attending Unavailable BRAUN, SHEILA L Attending Unavailable BRAUN, SHEILA L Attending Unavailable CUTLER, ELIOT L Attending Unavailable ALEX NAIK Attending Unavailable MANASA DUNAWAY Referring Unavailable JUAN BARON Attending Unavailable MANASA DUNAWAY Referring Unavailable JHONY GRACIA Attending Unavailable MANASA DUNAWAY Referring Unavailable JUAN BARON Attending Unavailable MANASA DUNAWAY Referring Unavailable BRAUN, SHEILA L Attending Unavailable BRAUN, SHEILA L Attending Unavailable BRAUN, SHEILA L Attending Unavailable BAMIMMANUEL Attending Unavailable CUTLER, ELIOT L Attending Unavailable BAMIMMANUEL Referring Unavailable CUTLER, ELIOT L Referring Unavailable BRAUN, SHEILA L Attending Unavailable CUTLER, ELIOT L Attending Unavailable BAMIMMANUEL Referring Unavailable BRAUN, SHEILA L Attending Unavailable BRAUN, SHEILA L Attending Unavailable BRAUN, SHEILA L Attending Unavailable BRAUN, SHEILA L Attending Unavailable BRAUN, SHEILA L Attending Unavailable CUTLER, ELIOT L Attending Unavailable CUTLER, ELIOT L Referring Unavailable BAMIMMANUEL Referring Unavailable CUTLER, ELIOT L Attending Unavailable BRAUN, SHEILA L Attending Unavailable DIDIONBRYANREA L Attending Unavailable BRAUN, SHEILA L Attending Unavailable BRAUN, SHEILA L Attending Unavailable Allergies Allergy Classification Reported Allergen(s) Allergy Type Date of Onset Reaction(s) Facility (3 sources) No Known Medication Allergies; Translations: [No Known Medication Allergies] Propensity to adverse reactions to drug (disorder) [facility] Repository Medications Current Medications Medication Drug [...] extended release oral tablet (11 sources) Uncompetitive S-mdgivx-H-aspartate Receptor Antagonist, Sigma-1 Agonist Start: End: take [...] tablet by mouth once daily, then take [id number] tablet by mouth once Norethindrone-Eth Estradiol (ALYACEN [...] mg oral tablet (13 sources) Corticosteroid Start: 07-11-2 024 hydrocortisone (CORTEF) 5 mg tablet Take 1 [...] BID, # 90 cap(s), Refills(s) 3, Pharmacy: [facility]/pharmacy #[id number], 169, cm, 03/19/24 14:00:00 EDT, [...] tablet 1 08/19/2023 Active polyethylene glycol 3350 41843 mg powder for oral solution (20 sources) [...] 04/27/2022 Active take 4 tablets by mo [facility] every twelve hours Potassium Chloride ER [...] day(s), # 56 tab(s), Refills(s) 0, Pharmacy: [facility]/pharmacy #6177, 169, cm, 03/19/24 14:00:00 EDT, [...] by rosita th two times a day. lurasidone hydrochloride 40 [...] Start: 07-12-2023 take 1 capsule by mo uth in the morning Magnesium Oxide -Mg Supplement [...] Comment on above: Take 1 capsule by [facility] twice daily. 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] Onset: 09-10-2022 Episodic [...] (COVID-19) RNA DARWIN+probe Ql (Unsp spec) Negative [facility] Healthcare No Panel InformationOrdered By: Heidi Chiu on 05-24-2024 FLU A Negative [facility] FLU B Negative [facility] Interpretation and review of laboratory results Normal [facility] HCG ( test) Ql (U)o n 05-19-2024 Interpretation and review of laboratory results Abnormal [facility] Healthcare Preg Test, Ur Positive [facility] Ambulatory Visit Summaryon 0 05-04-2024 Ambulatory Visit Summary Ambulatory Visit Summary HEIDI JOY :1990 Visit Date:05/04/2024 Ambulatory Visit Instructions Your [...] you for choosing us for your care. Yvonne [facility] Gastroenterology Office/Clin ic Noteon 05-04-2024 Gastroenterology Office/Clinic [...] backed up) had Fredrick en y at [facility], had CT with iv contrast, reports it [...] - Not Given Patient Refuses Normal [facility] Comment on above: Result Comment: Elec tronically Signed By: Frank URIBE, Kvng Duran\.br\Date and Time Signed: 05/04/24 09:41 EDT Aldost SerPl-mCncon 04-10-20 Aldosterone [Mass/Vol] 3.4 ng/dL Normal 0.0-<35.4 [facility] Comment on above: Order Comment: Speci men Type: BLOOD SPECIMENOrdering Facility: [facility] Address: [address] [place] [address] Result Comment: The reference interval for serum/plasma [...] 15 ng/dL. Performed By: #### 1 763-2 ####[facility] LABCLIA [id number] [place] [address] [place] CNOVon 04-10-2024 CNOV Normal [facility] CORTISOL, 30 MINon 4 Cortisol 30 Min post Unsp challenge [Mass/Vol] 19.7 ug/dL Normal [facility] Comment on above: Order Comment: Speci men Type: BLOOD SPECIMENOrdering Facility: [facility] Address: [address] [place] [address] Performed By: #### C OR30 ####[facility] [id number] [address] [place] CORTISOL, 60 MINon 4 Cortisol 1 Hr post Unsp challenge [Mass/Vol] 23.7 ug/dL Normal [facility] Comment on above: Order Comment: Speci men Type: BLOOD SPECIMENOrdering Facility: [facility] Address: [address] [place] [address] Performed By: #### C ORS60M ####[facility] LABIA [id number] [address] [place] INTERPRETATION (ACTHST) Normal [facility] Comment on above: Order Comment: Speci men Type: BLOOD SPECIMENOrdering Facility: [facility] Address: [address] [place] [address] Result Comment: Afte r cortrosyn stimulation, a peak cortisol response greater than 12.6 ug/dL may indicate appropriate cortisol secretion. This result should be interpreted within the clinical context and other test results.Yannick et al. Clinical Implications for Biochemical Diagnostic Thresholds of Adrenal Sufficiency Using a Highly Specific Cortisol Immunoassay. 2017 Clin. Biochem. 50:475-480. Performed By: #### C ORS60M ####[facility] LABIA [id number] [place] [id number] [place] CORTISOL, BASALon 04-10-2024 Cortisol baseline [Mass/Vol] 12.4 ug/dL Normal 4.8-19.5 [facility] Comment on above: Order Comment: Joselyni men Type: BLOOD SPECIMENOrdering Facility: [facility] Address: [address] [place] [address] Result Comment: Prov ided reference range is from 6-10 AM sample collection time.Cortisol Reference Range: 6-10 AM = 4.8-19.5 ug/dL, 4-8 PM = 2.5-11.9 ug/dL Performed By: #### C ORTBAS ####[facility] LABCLIA [id number] [address] [place] DIRECT RENIN PLASMAon 2023 DIRECT RENIN 21.1 pg/mL Normal 4.2-52.2 [facility] Comment on above: Order Comment: Peter myles Type: BLOOD SPECIMENOrdering Facility: [facility] Address: [address] [place] [address] Result Comment: A ra yue of aldosterone [...] 2.5-45.1 pg/mL Performed By: #### R ENIND ####[facility] LABCLIA [id number] [address] LABCLIA [id number] [place] [address] [place] PATIENT UPRIGHT OR SUPINE Upright Normal [facility] Comment on above: Order Comment: Joselyni men Type: BLOOD SPECIMENOrdering Facility: [facility] Address: [address] [place] [address] Performed By: #### R ENIND ####[facility] LABCLIA [id number] [facility] [id number] [address] [facility] LABCLIA [id number] [place] [address] [facility] Magnesium SerPl-ncon 04-10 Magnesium [Mass/Vol] 1.9 mg/dL Normal 1.7-2.3 [facility] Comment on above: Order Comment: Speci men Type: BLOOD SPECIMENOrdering Facility: [facility] Address: [address] [place] [address] Performed By: #### 2 4362-6, ####[facility] LABIA [id number] [place] [address] Renal [address] [place] [address] 04-10-2024 Albumin [Mass/Vol] 4.4 g/dL Normal 3.9-4.9 [facility] Comment on above: Order Comment: Speci men Type: BLOOD SPECIMENOrdering Facility: [facility] Address: [address] [place] [address] Performed By: #### 2 4362-6, ####[facility] LABIA [id number] [place] [address] Anion gap [Moles/Vol] 10 mmol/L Normal 8-15 [facility] Comment on above: Order Comment: Speci men Type: BLOOD SPECIMENOrdering Facility: [facility] Address: [address] [place] [address] Performed By: #### 2 4362-6, ####[facility] LABIA [id number] [place] [address] Calcium [Mass/Vol] 9.0 mg/dL Normal 8.5-10.2 [facility] Comment on above: Order Comment: Speci men Type: BLOOD SPECIMENOrdering Facility: [facility] Address: [address] [place] [address] Performed By: #### 2 4362-6, ####[facility] LABCLIA [id number] [place] [address] Chloride [Moles/Vol] 106 mmol/L Normal 98-107 [facility] Comment on above: Order Comment: Speci men Type: BLOOD SPECIMENOrdering Facility: [facility] Address: [address] [place] [address] Performed By: #### 2 4362-6, ####[facility] LABCLIA [id number] [place] [address] CO2 [Moles/Vol] 20 mmol/L Low 22-30 [facility] Comment on above: Order Comment: Speci men Type: BLOOD SPECIMENOrdering Facility: [facility] Address: [address] [place] [address] Performed By: #### 2 4362-6, ####[facility] LABCLIA [id number] [place] [address] Creatinine [Mass/Vol] 1.00 mg/dL High 0.58-0.96 [facility] Comment on above: Order Comment: Speci men Type: BLOOD SPECIMENOrdering Facility: [facility] Address: [address] [place] [address] Performed By: #### 2 4362-6, ####[facility] LABCLIA [id number] [place] [address] Creatinine and Glomerular filtration rate.predicted panel (S/P/Bld) 77 mL/min/1.73m??? Normal >=60 [facility] Comment on above: Order Comment: Speci men Type: BLOOD SPECIMENOrdering Facility: [facility] Address: [address] [place] [address] Result Comment: Rachel mated Glomerular Filtration Rate [...] actual GFR. Performed By: #### 2 4362-6, ####[facility] LABCLIA [id number] [place] [address] Glucose [Mass/Vol] 185 mg/dL High 74-99 [facility] Comment on above: Order Comment: Peter myles Type: BLOOD SPECIMENOrdering Facility: [facility] Address: [address] [place] [address] Result Comment: [place] Diabetes [...] 2016.39(Suppl 1). Performed By: #### 2 4362-6, ####[facility] LABCLIA [id number] [place] [address] Phosphate [Mass/Vol] 3.4 mg/dL Normal 2.7-4.8 [facility] Comment on above: Order Comment: Peter myles Type: BLOOD SPECIMENOrdering Facility: [facility] Address: [address] [place] [address] Performed By: #### 2 4362-6, ####[facility] LABIA [id number] [place] [address] Potassium [Moles/Vol] 4.5 mmol/L Normal 3.7-5.1 [facility] Comment on above: Order Comment: Peter myles Type: BLOOD SPECIMENOrdering Facility: [facility] Address: [address] [place] [address] Performed By: #### 2 4362-6, ####[facility] LABCLIA [id number] [place] [address] Sodium [Moles/Vol] 136 mmol/L Normal 136-144 [facility] Comment on above: Order Comment: Speci men Type: BLOOD SPECIMENOrdering Facility: [facility] Address: [address] [place] [address] Performed By: #### 2 4362-6, ####[facility] LABCLIA [id number] [place] [address] Urea nitrogen [Mass/Vol] 37 mg/dL High 7-21 [facility] Comment on above: Order Comment: Speci men Type: BLOOD SPECIMENOrdering Facility: [facility] Address: [address] [place] [address] Performed By: #### 2 4362-6, ####[facility] LABCLIA [id number] [place] [address] Albumin [Mass/Vol] 4.2 g/dL Normal 3.9-4.9 [facility] Comment on above: Order Comment: Speci men Type: BLOOD SPECIMENOrdering Facility: [facility] Address: [address] [place] [address] Performed By: #### 2 4362-6 ####[facility] LABCLIA [id number] [place] [id number] [place] Anion gap [Moles/Vol] 9 mmol/L Normal 8-15 [facility] Comment on above: Order Comment: Speci men Type: BLOOD SPECIMENOrdering Facility: [facility] Address: [address] [place] [address] Performed By: #### 2 4362-6 ####[facility] LABCLIA [id number] [place] [id number] [place] Calcium [Mass/Vol] 8.8 mg/dL Normal 8.5-10.2 [facility] Comment on above: Order Comment: Speci men Type: BLOOD SPECIMENOrdering Facility: [facility] Address: [address] [place] [address] Performed By: #### 2 4362-6 ####[facility] LABCLIA [id number] [place] [address] [place] Chloride [Moles/Vol] 111 mmol/L High 98-107 [facility] Comment on above: Order Comment: Speci men Type: BLOOD SPECIMENOrdering Facility: [facility] Address: [address] [place] [address] Performed By: #### 2 4362-6 ####[facility] LABCLIA [id number] [place] [address] [place] CO2 [Moles/Vol] 18 mmol/L Low 22-30 [facility] Comment on above: Order Comment: Speci men Type: BLOOD SPECIMENOrdering Facility: [facility] Address: [address] [place] [address] Performed By: #### 2 4362-6 ####[facility] LABCLIA [id number] [place] [address] [place] Creatinine [Mass/Vol] 0.98 mg/dL High 0.58-0.96 [facility] Comment on above: Order Comment: Speci men Type: BLOOD SPECIMENOrdering Facility: [facility] Address: [address] [place] [address] Performed By: #### 2 4362-6 ####[facility] LABCLIA [id number] [address] [place] Creatinine and Glomerular filtration rate.predicted panel (S/P/Bld) 79 mL/min/1.73m??? Normal >=60 [facility] Comment on above: Order Comment: Speci men Type: BLOOD SPECIMENOrdering Facility: [facility] Address: [address] [place] [address] Result Comment: Rachel mated Glomerular Filtration Rate [...] GFR. Performed By: #### 2 4362-6 ####[facility] LABCLIA [id number] [place] [address] [place] Glucose [Mass/Vol] 142 mg/dL High 74-99 [facility] Comment on above: Order Comment: Peter myles Type: BLOOD SPECIMENOrdering Facility: [facility] Address: [address] [place] [address] Result Comment: [place] Diabetes [...] 2016.39(Suppl 1). Performed By: #### 2 4362-6 ####[facility] LABCLIA [id number] [place] [id number] [place] Phosphate [Mass/Vol] 3.9 mg/dL Normal 2.7-4.8 [facility] Comment on above: Order Comment: Peter myles Type: BLOOD SPECIMENOrdering Facility: [facility] Address: [address] [place] [address] Performed By: #### 2 4362-6 ####[facility] LABCLIA [id number] [place] [id number] [place] Potassium [Moles/Vol] 4.3 mmol/L Normal 3.7-5.1 [facility] Comment on above: Order Comment: Speci men Type: BLOOD SPECIMENOrdering Facility: [facility] Address: [facility] [place] [address] Performed By: #### 2 4362-6 ####[facility] LABCLIA [id number] [place] [id number] [place] Sodium [Moles/Vol] 138 mmol/L Normal 136-144 [facility] Comment on above: Order Comment: Speci men Type: BLOOD SPECIMENOrdering Facility: [facility] Address: [facility] [place] [address] Performed By: #### 2 4362-6 ####[facility] LABCLIA [id number] [place] [id number] [place] Urea nitrogen [Mass/Vol] 33 mg/dL High 7-21 [facility] Comment on above: Order Comment: Speci men Type: BLOOD SPECIMENOrdering Facility: [facility] Address: [facility] [place] [address] Performed By: #### 2 4362-6 ####[facility] LABCLIA [id number] [place] [address] [place] CNPNon 04-09-2024 CNPN Normal [facility] Surgical Pathology Reporton 03-27-2024 Surgical Pathology Report [address] [address]- Surgical Pathology Report Collected Date/Time: 03/24/2024 12:20 [...] characteristics were determined by the Laboratory of [facility]. They have not been cleared or approved by the [place] Food and Drug Administration. The FDA has determined that such clearance or approval is not necessary. These tests are used for clinical purposes. They should not be regarded as investigational or for research. Appropriate positive and negative controls are performed and are acceptable. Normal [facility] Comment on above: Performed By: #### 4 [id number] #### [facility] Laboratory [address] [place] [address] Ambulatory Visit Summaryon 0 03-19-2024 Ambulatory Visit Summary Ambulatory Visit Summary HEIDI JOY :1990 Visit Date:03/19/2024 Ambulatory Visit Instructions Your Diagnosis RUQ pain Irritable bowel syndrome with diarrhea History of gastric bypass Constipation Your Care Team Attending Physician - Kvng Marie MD Primary Care Physician - ELIOT GARCÍA DO [...] times a day Refills: 3 Pickup at [facility]/pharmacy #6177 New sucralfate (Carafate 1 gram Tab) 1 Tablets By Mouth 4 times a day Duration: 14 Days Pickup at [facility]/pharmacy #6177 Changed famotidine (Pepcid 40 mg Tab) 1 Tablets By Mouth 2 times a day Pickup at [facility]/pharmacy #6177 Unchanged hydrocortisone (hydrocortisone 5 mg Tab) See instructions has 1 week left. Contact prescribing physician if questions or concerns Pharmacy Information [facility]/pharmacy #6177: [address], [place] [id number] [phone] Allergies No Known Medication Allergies Problems Ongoing [...] choosing us for your care. Normal [facility] Gastroenterology Office/Clin ic Noteon 03-19-2024 Gastroenterology Office/Clinic [...] backed up) had Fredrick en y at [facility], had CT with iv contrast, reports it [...] reported imaging and labs were negative at [facility], will obtain the records Will proceed with EGD with random biopsies For constipation, we discussed lifestyle modifications, restart fibers, MiraLAX 1-2 times a day as needed, if fails in the future might consider Linzess Normal [facility] Comment on above: Result Comment: Elec tronically Signed By: Frank URIBE, Kvng Duran\.br\Date and Time Signed: 03/19/24 14:45 EDT Magn[facility] Magnesium [Mass/Vol] 2.2 mg/dL Normal 1.7-2.3 [facility] Comment on above: Order Comment: Speci men Type: BLOOD SPECIMENOrdering Facility: [facility] Address: [address] [place], [place] [address] Performed By: #### 2 4362-6, ####[facility] LABIA [id number] [place] [address] Renal function [address] [place] [address] 02-26-2024 Albumin [Mass/Vol] 4.3 g/dL Normal 3.9-4.9 [facility] Comment on above: Order Comment: Speci men Type: BLOOD SPECIMENOrdering Facility: [facility] Address: [address] [place] [address] Performed By: #### 2 4362-6, ####[facility] LABIA [id number] [place] [address] Anion gap [Moles/Vol] 7 mmol/L Low 8-15 [facility] Comment on above: Order Comment: Speci men Type: BLOOD SPECIMENOrdering Facility: [facility] Address: [address] [place] [address] Performed By: #### 2 4362-6, ####[facility] LABIA [id number] [place] [address] Calcium [Mass/Vol] 9.5 mg/dL Normal 8.5-10.2 [facility] Comment on above: Order Comment: Speci men Type: BLOOD SPECIMENOrdering Facility: [facility] Address: [address] [place], [place] [address] Performed By: #### 2 4362-6, ####[facility] LABCLIA [id number] [place] [address] Chloride [Moles/Vol] 107 mmol/L Normal 98-107 [facility] Comment on above: Order Comment: Speci men Type: BLOOD SPECIMENOrdering Facility: [facility] Address: [address] [place] [address] Performed By: #### 2 4362-6, ####[facility] LABCLIA [id number] [place] [address] CO2 [Moles/Vol] 25 mmol/L Normal 22-30 [facility] Comment on above: Order Comment: Speci men Type: BLOOD SPECIMENOrdering Facility: [facility] Address: [address] [place] [address] Performed By: #### 2 4362-6, ####[facility] LABCLIA [id number] [place] [address] Creatinine [Mass/Vol] 0.93 mg/dL Normal 0.58-0.96 [facility] Comment on above: Order Comment: Speci men Type: BLOOD SPECIMENOrdering Facility: [facility] Address: [address] [place] [address] Performed By: #### 2 4362-6, ####[facility] LABCLIA [id number] [place] [address] Creatinine and Glomerular filtration rate.predicted panel (S/P/Bld) 84 mL/min/1.73m??? Normal >=60 [facility] Comment on above: Order Comment: Speci men Type: BLOOD SPECIMENOrdering Facility: [facility] Address: [address] [place] [address] Result Comment: Rachel mated Glomerular Filtration Rate [...] actual GFR. Performed By: #### 2 4362-6, ####[facility] LABCLIA [id number] [place] [address] Glucose [Mass/Vol] 86 mg/dL Normal 74-99 [facility] Comment on above: Order Comment: Speci men Type: BLOOD SPECIMENOrdering Facility: [facility] Address: [address] [place] [address] Result Comment: [place] Diabetes [...] 2016.39(Suppl 1). Performed By: #### 2 4362-6, ####[facility] LABCLIA [id number] [place] [address] Phosphate [Mass/Vol] 4.2 mg/dL Normal 2.7-4.8 [facility] Comment on above: Order Comment: Peter myles Type: BLOOD SPECIMENOrdering Facility: [facility] Address: [address] [place] [address] Performed By: #### 2 4362-6, ####[facility] LABCLIA [id number] [place] [address] Potassium [Moles/Vol] 4.6 mmol/L Normal 3.7-5.1 [facility] Comment on above: Order Comment: Speci men Type: BLOOD SPECIMENOrdering Facility: [facility] Address: [address] [place] [address] Performed By: #### 2 4362-6, ####[facility] LABCLIA [id number] [place] [address] Sodium [Moles/Vol] 139 mmol/L Normal 136-144 [facility] Comment on above: Order Comment: Speci men Type: BLOOD SPECIMENOrdering Facility: [facility] Address: [address] [place], [place] [id number] Performed By: #### 2 4362-6, ####[facility] LABCLIA [id number] [place] [address] Urea nitrogen [Mass/Vol] 30 mg/dL High 7-21 [facility] Comment on above: Order Comment: Speci men Type: BLOOD SPECIMENOrdering Facility: [facility] Address: [address] [place], [place] [id number] Performed By: #### 2 4362-6, ####[facility] LABCLIA [id number] [place] [address] Alanine aminotransferase [En zymatic activity/volume] in Serum or PlasmaOrdered By: Eliot Dawson on 02-21-2024 ALT [Catalytic activity/Vol] 20 U/L Normal 7-52 [facility] Comment on above: Performed By: #### C BC, CMP, HEPATIC, LIPASE #### [facility] [address] [place] [address] [place] Albumin [Mass/volume] in Ser um or Plasma by Bromocresol green (BCG) dye binding methoOrdered By: Eliot Dawson on 02-21-2024 Albumin BCG dye [Mass/Vol] 4.2 g/dL 3.5-5.7 [facility] Alkaline phosphatase [Enzyma tic activity/volume] in Serum or PlasmaOrdered By: Eliot Dawson on 02-21-2024 ALP [Catalytic activity/Vol] 103 U/L Normal 34-104 [facility] Comment on above: Performed By: #### C BC, CMP, HEPATIC, LIPASE #### [address] Aspartate aminotransferase [ Enzymatic activity/volume] in Serum or PlasmaOrdered By: Eliot Dawson on 02-21-2024 AST [Catalytic activity/Vol] 16 U/L Normal 13-39 [facility] Comment on above: Performed By: #### C BC, CMP, HEPATIC, LIPASE #### [address] Automated basophil %Ordered By: Eliot Dawson on 02-21-2024 Basophils/100 WBC (Bld) 0.4 % Normal . [facility] Comment on above: Performed By: #### C BC, CMP, HEPATIC, LIPASE #### [address] Automated basophil countOrde red By: Eliot Dwason on 02-21-2024 Basophils (Bld) [#/Vol] 0.0 10*3/uL Normal 0.0-0.2 [facility] Comment on above: Result Comment: PERF ORMED BY: [place] [address] PATHOLOGIST CRT MARY ANN LAL M.D. Performed By: #### C BC, CMP, HEPATIC, LIPASE #### [address] Automated blood monocyte cou ntOrdered By: Eliot Dawson on 02-21-2024 Monocytes (Bld) [#/Vol] 0.4 10*3/uL Normal 0.0-0.8 [facility] Comment on above: Performed By: #### C BC, CMP, HEPATIC, LIPASE #### [address] Automated eosinophil %Ordere d By: Eliot Dawson on 02-21-2024 Eosinophils/100 WBC (Bld) 0.4 % Normal . [facility] Comment on above: Performed By: #### C BC, CMP, HEPATIC, LIPASE #### [facility] [address] Automated eosinophil countOr dered By: Eliot Dawson on 02-21-2024 Eosinophils (Bld) [#/Vol] 0.0 10*3/uL Normal 0.0-0.45 [facility] Comment on above: Performed By: #### C BC, CMP, HEPATIC, LIPASE #### [address] Automated monocyte %Ordered By: Eliot Dawson on 02-21-2024 Monocytes/100 WBC (Bld) 3.4 % Normal . [facility] Comment on above: Performed By: #### C BC, CMP, HEPATIC, LIPASE #### [address] Automated neutrophil %Ordere d By: Eliot Dawson on 02-21-2024 Neutrophils/100 WBC (Bld) 79.3 % Normal . [facility] Comment on above: Performed By: #### C BC, CMP, HEPATIC, LIPASE #### [address] Bilirubin Test strip Ql (U)O rdered By: Eliot Dawson on 02-21-2024 Bilirubin Ql (U) Negative Negative [facility] Bilirubin.direct [Mass/volum e] in Serum or PlasmaOrdered By: Eliot Dawson on 02-21-2024 Bilirubin.direct [Mass/Vol] 0.10 mg/dL 0.03-0.18 [facility] Bilirubin.total [Mass/volume ] in Serum or PlasmaOrdered By: Eliot Dawson on 02-21-2024 Bilirubin [Mass/Vol] 0.7 mg/dL Normal 0.3-1.0 [facility] Comment on above: Performed By: #### C BC, CMP, HEPATIC, LIPASE #### [address] abdomen pelvis w conon CT abdomen pelvis w con [facility] [place] [address] [place] [address] CT Scan Report Signed Patient: Heidi Joy MR#: [id number] 640 : 1990 Acct:[id number] Age/Sex: 33 / F ADM Date: 02/21/24 Loc: ER Room: Type: [facility] ER Attending Dr: Copies to: Eliot [...] Josefina Conley M.D.02/21/2024 11:45 AM Dictation Location: [place] [address] Transcribed By: [facility] 02/21/24 1145 Dictated By: Josefina oCnley MD 02/21/24 1137 Signed By: 02/21/24 1145 Normal [facility] Calcium [Mass/volume] in Ser um or PlasmaOrdered By: Eliot Dawson on 02-21-2024 Calcium [Mass/Vol] 8.9 mg/dL Normal 8.6-10.3 [facility] Comment on above: Performed By: #### C BC, CMP, HEPATIC, LIPASE #### [address] Carbon dioxide, total [Moles /volume] in Serum or PlasmaOrdered By: Eliot Dawson on 02-21-2024 CO2 [Moles/Vol] 24.5 mmol/L Normal 21.0-31.0 [facility] Comment on above: Performed By: #### C BC, CMP, HEPATIC, LIPASE #### [address] Chloride [Moles/volume] in S eileen or PlasmaOrdered By: Eliot Dawson on 02-21-2024 Chloride [Moles/Vol] 110 mmol/L High 98-107 [facility] Comment on above: Performed By: #### C BC, CMP, HEPATIC, LIPASE #### [address] Color of Urine by AutoOrdere d By: Eliot Dawson on 02-21-2024 Color (U) Light-yellow Normal Yellow [facility] Comment on above: Order Comment: Name Collection Type:: Clean-Voided Midstream Performed By: #### U HCG, UA #### [address] Complete Blood Count Auto Di ffon 02-21-2024 Mean Corpuscular HGB Conc 33.8 g/dL Normal 32.0-35.0 [facility] Comment on above: Performed By: #### C BC, CMP, HEPATIC, LIPASE #### [address] Monocytes/100 WBC (Bld) 17.21 % Normal 0.00-20.00 [facility] Comment on above: Performed By: #### C BC, CMP, HEPATIC, LIPASE #### [address] NRBC% 0.1 /100{WBC} Normal 0-0.5 [facility] Comment on above: Performed By: #### C BC, CMP, HEPATIC, LIPASE #### [address] Comprehensive Metabolic Pane willian 02-21-2024 Albumin [Mass/Vol] 4.2 g/dL Normal 3.5-5.7 [facility] Comment on above: Performed By: #### C BC, CMP, HEPATIC, LIPASE #### [address] Creatinine Clr Calc Pharmacy 105.28 Normal [facility] Comment on above: Performed By: #### C BC, CMP, HEPATIC, LIPASE #### [address] GFR/1.73 sq M.predicted MDRD (S/P/Bld) [Vol rate/Area] mL/min/{1.73_m2} Normal [facility] Comment on above: Performed By: #### C BC, CMP, HEPATIC, LIPASE #### [address] Creatinine [Mass/volume] in Serum or PlasmaOrdered By: Eliot Dawson on 02-21-2024 Creatinine [Mass/Vol] 0.84 mg/dL Normal 0.60-1.20 [facility] Comment on above: Performed By: #### C BC, CMP, HEPATIC, LIPASE #### [address] ECG 12 lead ECGon 02-21-2024 ECG 12 lead ECG [facility] [place] [address] [place] [address] Electrocardiograph Report Signed Patient: Heidi Joy MR#: [id number] 640 : 1990 Acct:[id number] Age/Sex: 33 / F ADM Date: 02/21/24 Loc: ER Room: Type: [facility] ER Attending Dr: Ordering Provider: Eliot [...] Normal [facility] Erythrocyte distribution wid th [Ratio] by Automated countOrdered By: Eliot Dawson on 02-21-2024 Erythrocyte distribution width (RBC) [Ratio] 15.0 % Normal 11.9-15.3 [facility] Comment on above: Performed By: #### C BC, CMP, HEPATIC, LIPASE #### [facility] [address] [place] [address] [place] Erythrocytes [#/volume] in B lood by Automated countOrdered By: Eliot Dawson on 02-21-2024 RBC (Bld) [#/Vol] 4.94 10*6/uL Normal 3.60-5.00 [facility] Comment on above: Performed By: #### C BC, CMP, HEPATIC, LIPASE #### [facility] [address] Glucose [Mass/volume] in Ser um or PlasmaOrdered By: Eliot Dawson on 02-21-2024 Glucose [Mass/Vol] 86 mg/dL Normal 70-100 [facility] Comment on above: ADA recommended refe rence rangeRandom Glucose Reference Range is dependent on time and content of last meal. Glucose of more than 200 mg/dL in a nonstressed, ambulatory subject supports the diagnosis of Diabetes Mellitus. Result Comment: [place] om Glucose Reference Range is dependent on time and content of last meal. Glucose of more than 200 mg/dL in a nonstressed, ambulatory subject supports the diagnosis of Diabetes Mellitus. ADA recommended reference range Performed By: #### C BC, CMP, HEPATIC, LIPASE #### [address] Glucose [Mass/volume] in Uri ne by Test stripOrdered By: Eliot Dawson on 02-21-2024 Glucose Test strip (U) [Mass/Vol] Normal mg/dL Normal [facility] HCG ( test) IA.rapi d Ql (U)Ordered By: Eliot Dawson on 02-21-2024 HCG ( test) Ql (U) Negative [facility] HCG,Urineon 02-21-2024 Beta HCG ( test) Ql (U) Negative Normal [facility] Comment on above: Order Comment: Name Collection Type:: Clean-Voided Midstream Result Comment: PERF ORMED BY: [place] [address] PATHOLOGIST CRT MARY ANN LAL M.D. Performed By: #### U HCG, UA #### [address] Hematocrit [Volume Fraction] of Blood by Automated countOrdered By: Eliot Dawson on 02-21-2024 Hematocrit (Bld) [Volume fraction] 43.1 % Normal 34.0-46.4 [facility] Comment on above: Performed By: #### C BC, CMP, HEPATIC, LIPASE #### [address] Hemoglobin Test strip Ql (U) Ordered By: Eliot Dawson on 02-21-2024 Hemoglobin Ql (U) Negative Negative [facility] Hemoglobin [Mass/volume] in BloodOrdered By: Eliot Dawson on 02-21-2024 Hemoglobin (Bld) [Mass/Vol] 14.6 g/dL Normal 11.8-15.4 [facility] Comment on above: Performed By: #### C BC, CMP, HEPATIC, LIPASE #### [address] Hepatic Panelon 02-21-2024 Bilirubin,Indirect 0.6 mg/dL Normal [facility] Comment on above: Performed By: #### C BC, CMP, HEPATIC, LIPASE #### [address] [place] [address] [place] Bilirubin.indirect [Mass/Vol] 0.10 mg/dL Normal 0.03-0.18 [facility] Comment on above: Performed By: #### C BC, CMP, HEPATIC, LIPASE #### [facility] [address] [place] [address] [place] Ketones [Presence] in Urine by Test stripOrdered By: Eliot Dawson on 02-21-2024 Ketones Ql (U) Negative Normal Negative [facility] Comment on above: Order Comment: Name Collection Type:: Clean-Voided Midstream Performed By: #### U HCG, UA #### [place] [address] [place] Leukocyte esterase [Presence ] in Urine by Test stripOrdered By: Eliot Dawson on 02-21-2024 Leukocyte esterase Test strip Ql (U) Negative Normal Negative [facility] Comment on above: Order Comment: Name Collection Type:: Clean-Voided Midstream Performed By: #### U HCG, UA #### [place] [address] [place] Leukocytes [#/volume] correc [place] for nucleated erythrocytes in Blood by Automated counOrdered By: Eliot Dawson on 02-21-2024 WBC corrected for nucl RBC Auto (Bld) [#/Vol] 10.9 10*3/uL 3.8-11.6 [facility] Leukocytes [#/volume] in Blo od by Automated countOrdered By: Eliot Dawson on 02-21-2024 WBC (Bld) [#/Vol] 10.9 10*3/uL Normal 3.8-11.6 [facility] Comment on above: Performed By: #### C BC, CMP, HEPATIC, LIPASE #### [facility] [address] [place] [address] [place] Lipase [Enzymatic activity/v olume] in Serum or PlasmaOrdered By: Eliot Dawson on 02-21-2024 Lipase [Catalytic activity/Vol] 74.0 U/L Normal 11.0-82.0 [facility] Comment on above: Result Comment: PERF ORMED BY: [place] [address] PATHOLOGIST CRT MARY ANN LAL M.D. Performed By: #### C BC, CMP, HEPATIC, LIPASE #### [address] Lymphocytes [#/volume] in Bl ood by Automated countOrdered By: Eliot Dawson on 02-21-2024 Lymphocytes (Bld) [#/Vol] 1.8 10*3/uL Normal 1.00-4.8 [facility] Comment on above: Performed By: #### C BC, CMP, HEPATIC, LIPASE #### [address] Lymphocytes/100 leukocytes i n Blood by Automated countOrdered By: Eliot Dawson on 02-21-2024 Lymphocytes/100 WBC (Bld) 16.5 % Normal . [facility] Comment on above: Performed By: #### C BC, CMP, HEPATIC, LIPASE #### [address] MCH [Entitic mass] by Automa [place] countOrdered By: Eliot Dawson on 02-21-2024 MCH (RBC) [Entitic mass] 29.5 pg Normal 24.7-34.3 [facility] Comment on above: Performed By: #### C BC, CMP, HEPATIC, LIPASE #### [address] MCHC Auto (RBC) [Mass/Vol]Or dered By: Eliot Dawson on 02-21-2024 MCHC (RBC) [Mass/Vol] 33.8 g/dL 32.0-35.0 [facility] MCV [Entitic volume] by Auto mated countOrdered By: Eliot Dawson on 02-21-2024 MCV (RBC) [Entitic vol] 87.4 fL Normal 80-100 [facility] Comment on above: Performed By: #### C BC, CMP, HEPATIC, LIPASE #### [address] Monocyte distribution width [Entitic volume] in Blood by AutomatedOrdered By: Eliot Dawson on 02-21-2024 Monocyte distribution width Auto (Bld) [Entitic vol] 17.21 % 0.00-20.00 [facility] Neutrophils [#/volume] in Bl ood by Automated countOrdered By: Eliot Dawson on 02-21-2024 Neutrophils (Bld) [#/Vol] 8.7 10*3/uL High 1.8-7.7 [facility] Comment on above: Performed By: #### C BC, CMP, HEPATIC, LIPASE #### [facility] [address] Nitrite Test strip Ql (U)Ord ered By: Eliot Dawson on 02-21-2024 Nitrite Ql (U) Negative Negative [facility] No Panel InformationOrdered By: Eliot Dawson on 02-21-2024 Estimated GFR (CKD-EPI) > 60.0 mL/Min [facility] Creatinine Clearance (Chem 105.28 [facility] Nucleated erythrocytes [Pres ence] in Blood by Automated countOrdered By: Eliot Dawson on 02-21-2024 Nucleated RBC Auto Ql (Bld) 0.1 /100{WBC} 0-0.5 [facility] Platelet mean volume [Entiti c volume] in Blood by Automated countOrdered By: Eliot Dawson on 02-21-2024 Platelet mean volume (Bld) [Entitic vol] 9.6 fL Normal 6.3-10.7 [facility] Comment on above: Performed By: #### C BC, CMP, HEPATIC, LIPASE #### [facility] [address] Platelets [#/volume] in Bloo d by Automated countOrdered By: Eliot Dawson on 02-21-2024 Platelets (Bld) [#/Vol] 221 10*3/uL Normal 150-450 [facility] Comment on above: Performed By: #### C BC, CMP, HEPATIC, LIPASE #### [facility] [address] [place] [address] [place] Potassium [Moles/volume] in Serum or PlasmaOrdered By: Eliot Dawson on 02-21-2024 Potassium [Moles/Vol] 4.4 mmol/L Normal 3.5-5.1 [facility] Comment on above: Performed By: #### C BC, CMP, HEPATIC, LIPASE #### [address] Protein Test strip (U) [Mass /Vol]Ordered By: Eliot Dawson on 02-21-2024 Protein (U) [Mass/Vol] Negative Negative [facility] Protein [Mass/volume] in Ser um or PlasmaOrdered By: Eliot Dawson on 02-21-2024 Protein [Mass/Vol] 6.9 g/dL Normal 6.4-8.9 [facility] Comment on above: Performed By: #### C BC, CMP, HEPATIC, LIPASE #### [address] Serum globulin measurement b y calculation (mass/volume)Ordered By: Eliot Dawson on 02-21-2024 Globulin (S) [Mass/Vol] 2.7 g/dL Normal [facility] Comment on above: Performed By: #### C BC, CMP, HEPATIC, LIPASE #### [address] Serum or plasma albumin/glob ulin mass ratioOrdered By: Eliot Dawson on 02-21-2024 Albumin/Globulin [Mass ratio] 1.6 {ratio} [facility] Comment on above: Performed By: #### C BC, CMP, HEPATIC, LIPASE #### [address] Serum or plasma anion gap de terminationOrdered By: Eliot Dawson on 02-21-2024 Anion gap [Moles/Vol] 10.9 mmol/L Normal 6.0-15.0 [facility] Comment on above: Performed By: #### C BC, CMP, HEPATIC, LIPASE #### [address] Serum or plasma non-glucuron idated bilirubin measurement (mass/volume)Ordered By: Eliot Dawson on 02-21-2024 Bilirubin.indirect [Mass/Vol] 0.6 mg/dL [facility] Sodium [Moles/volume] in Ser um or PlasmaOrdered By: Eliot Dawson on 02-21-2024 Sodium [Moles/Vol] 141 mmol/L Normal 136-145 [facility] Comment on above: Performed By: #### C BC, CMP, HEPATIC, LIPASE #### [facility] [address] Specific gravity Test strip (U) [Rel density]Ordered By: Eliot Dawson on 02-21-2024 Specific gravity (U) [Rel density] 1.025 1.001-1.03 0 [facility] Urea nitrogen [Mass/volume] in Serum or PlasmaOrdered By: Eliot Dawson on 02-21-2024 Urea nitrogen [Mass/Vol] 34 mg/dL High 7-25 [facility] Comment on above: Performed By: #### C BC, CMP, HEPATIC, LIPASE #### [place] [address] [place] Urinalysison 02-21-2024 Bilirubin,Urine Negative Normal Negative [facility] Comment on above: Order Comment: Name Collection Type:: Clean-Voided Midstream Performed By: #### U HCG, UA #### [place] [address] [place] Glucose Ql (U) Normal Normal Normal [facility] Comment on above: Order Comment: Name Collection Type:: Clean-Voided Midstream Performed By: #### U HCG, UA #### [place] [address] [place] Nitrite,Urine Negative Normal Negative [facility] Comment on above: Order Comment: Name Collection Type:: Clean-Voided Midstream Performed By: #### U HCG, UA #### [place] [address] [place] Occult Blood,Urine Negative Normal Negative [facility] Comment on above: Order Comment: Name Collection Type:: Clean-Voided Midstream Performed By: #### U HCG, UA #### [place] [id number] [place] Protein,Urine Negative Normal Negative [facility] Comment on above: Order Comment: Name Collection Type:: Clean-Voided Midstream Performed By: #### U HCG, UA #### [address] Specificy [place],Urine 1.025 Normal 1.00 1-1.03 0 [facility] Comment on above: Order Comment: Name Collection Type:: Clean-Voided Midstream Performed By: #### U HCG, UA #### [address] Urobilinogen,Urine Normal Normal Normal [facility] Comment on above: Order Comment: Name Collection Type:: Clean-Voided Midstream Performed By: #### U HCG, UA #### [address] Urine appearanceOrdered By: Eliot Dawson on 02-21-2024 Appearance (U) Clear Normal Clear [facility] Comment on above: Order Comment: Name Collection Type:: Clean-Voided Midstream Performed By: #### U HCG, UA #### [address] Urobilinogen Test strip (U) [Mass/Vol]Ordered By: Eliot Dawson on 02-21-2024 Urobilinogen (U) [Mass/Vol] Normal mg/dL Normal [facility] pH of Urine by Test stripOrd ered By: Eliot Dawson on 02-21-2024 pH (U) 5.5 [pH] Normal 5.0-9.0 [facility] Comment on above: Order Comment: Name Collection Type:: Clean-Voided Midstream Performed By: #### U HCG, UA #### [address] XR ABDOMEN 1 VIEWon 02-20-20 24 XR ABDOMEN 1 VIEW FINDINGS: Moderate volume of ascending colon stool, tapering through the transverse colon. No mass effect or free air. No evidence of bowel obstruction. GE junction, left mid abdominal surgical clips. IMPRESSION: Ascending colon stool, no obstruction TRANSCRIBED BY: ELECTRONICALLY SIGNED BY: Mesfin Wheeler MD Normal Not Available [facility]20 24 Aldosterone [Mass/Vol] <3.0 Normal 0.0-<35.4 [facility] Comment on above: Order Comment: Peter myles Type: BLOOD SPECIMENOrdering Facility: [facility] Address: [address] [place] [address] Result Comment: The reference interval for serum/plasma [...] 15 ng/dL. Performed By: #### 1 763-2 ####[facility] LABCLIA [id number] [place] [address] [place]#### RENIND ####[facility] LABCLIA [id number] [address] LABCLIA [id number] [place] [address] DIRECT RENIN PLASMAon 2023 DIRECT RENIN 8.7 pg/mL Normal 4.2-52.2 [facility] Comment on above: Order Comment: Peter myles Type: BLOOD SPECIMENOrdering Facility: [facility] Address: [address] [place] [address] Result Comment: A ra yue of aldosterone [...] 2.5-45.1 pg/mL Performed By: #### 1 763-2 ####[facility] LABCLIA [id number] [place] [address] [place]#### RENIND ####[facility] LABCLIA [id number] [address] LABCLIA [id number] [place] [address] PATIENT UPRIGHT OR SUPINE Upright Normal [facility] Comment on above: Order Comment: Speci men Type: BLOOD SPECIMENOrdering Facility: [facility] Address: [address] [place] [address] Performed By: #### 1 763-2 ####[facility] LABCLIA [id number] [place] [address] [place]#### RENIND ####[facility] LABCLIA [id number] [address] LABCLIA [id number] [place] [id number] Magnesium [facility] 02-18 Magnesium [Mass/Vol] 2.2 mg/dL Normal 1.7-2.3 [facility] Comment on above: Order Comment: Speci men Type: BLOOD SPECIMENOrdering Facility: [facility] Address: [address] [place] [address] Performed By: #### 1 9123-9, 61777-2 ####[facility] LABCLIA [id number] [place] [address] Renal function [address] [place] [address] 02-19-2024 Albumin [Mass/Vol] 4.6 g/dL Normal 3.9-4.9 [facility] Comment on above: Order Comment: Speci men Type: BLOOD SPECIMENOrdering Facility: [facility] Address: [address] [place] [address] Performed By: #### 1 9123-9, 15952-0 ####[facility] LABCLIA [id number] [place] [address] Anion gap [Moles/Vol] 9 mmol/L Normal 8-15 [facility] Comment on above: Order Comment: Speci men Type: BLOOD SPECIMENOrdering Facility: [facility] Address: [address] [place] [address] Performed By: #### 1 9123-9, 45545-2 ####[facility] LABCLIA [id number] [place] [address] Calcium [Mass/Vol] 9.9 mg/dL Normal 8.5-10.2 [facility] Comment on above: Order Comment: Speci men Type: BLOOD SPECIMENOrdering Facility: [facility] Address: [address] [place] [address] Performed By: #### 1 9123-9, 75183-1 ####[facility] LABCLIA [id number] [place] [address] Chloride [Moles/Vol] 107 mmol/L Normal 98-107 [facility] Comment on above: Order Comment: Speci men Type: BLOOD SPECIMENOrdering Facility: [facility] Address: [address] [place] [address] Performed By: #### 1 9123-9, 48253-0 ####[facility] LABCLIA [id number] [place] [address] CO2 [Moles/Vol] 23 mmol/L Normal 22-30 [facility] Comment on above: Order Comment: Speci men Type: BLOOD SPECIMENOrdering Facility: [facility] Address: [address] [place], [place] [address] Performed By: #### 1 9123-9, 65372-8 ####[facility] LABCLIA [id number] [place] [address] Creatinine [Mass/Vol] 1.01 mg/dL High 0.58-0.96 [facility] Comment on above: Order Comment: Speci men Type: BLOOD SPECIMENOrdering Facility: [facility] Address: [address] [place] [address] Performed By: #### 1 9123-9, 88440-7 ####[facility] LABCLIA [id number] [place] [address] Creatinine and Glomerular filtration rate.predicted panel (S/P/Bld) 76 mL/min/1.73m??? Normal >=60 [facility] Comment on above: Order Comment: Peter myles Type: BLOOD SPECIMENOrdering Facility: [facility] Address: [address] [place] [address] Result Comment: Rachel mated Glomerular Filtration Rate [...] actual GFR. Performed By: #### 1 9123-9, 22436-6 ####[facility] LABCLIA [id number] [place] [address] Glucose [Mass/Vol] 142 mg/dL High 74-99 [facility] Comment on above: Order Comment: Peter myles Type: BLOOD SPECIMENOrdering Facility: [facility] Address: [address] [place] [address] Result Comment: [place] Diabetes [...] 2016.39(Suppl 1). Performed By: #### 1 9123-9, 00162-0 ####[facility] LABCLIA [id number] [place] [address] Phosphate [Mass/Vol] 4.8 mg/dL Normal 2.7-4.8 [facility] Comment on above: Order Comment: Speci men Type: BLOOD SPECIMENOrdering Facility: [facility] Address: [address] [place] [address] Performed By: #### 1 9123-9, 23774-9 ####[facility] LABCLIA [id number] [place] [address] Potassium [Moles/Vol] 4.2 mmol/L Normal 3.7-5.1 [facility] Comment on above: Order Comment: Speci men Type: BLOOD SPECIMENOrdering Facility: [facility] Address: [address] [place] [address] Performed By: #### 1 9123-9, 62420-0 ####[facility] LABCLIA [id number] [place] [address] Sodium [Moles/Vol] 139 mmol/L Normal 136-144 [facility] Comment on above: Order Comment: Speci men Type: BLOOD SPECIMENOrdering Facility: [facility] Address: [address] [place], [place] [address] Performed By: #### 1 9123-9, 86120-6 ####[facility] LABCLIA [id number] [place] [address] Urea nitrogen [Mass/Vol] 39 mg/dL High 7-21 [facility] Comment on above: Order Comment: Speci men Type: BLOOD SPECIMENOrdering Facility: [facility] Address: [address] [place], [place] [address] Performed By: #### 1 9123-9, 24809-1 ####[facility] LABCLIA [id number] [place] [address] Albumin [facility] [place] 07-11-2 024 Albumin [Mass/Vol] 4.6 g/dL Normal 3.9-4.9 [facility] Comment on above: Order Comment: Speci men Type: BLOOD SPECIMENOrdering Facility: [facility] Address: [address] [place] [address] Performed By: #### 1 9123-9, 2777-1, 64188-6, 1751-7 ####[facility] LABCLIA [id number] [place] [address] [facility]20 24 Aldosterone [Mass/Vol] 4.5 ng/dL Normal 0.0-<35.4 [facility] Comment on above: Order Comment: Speci men Type: BLOOD SPECIMENOrdering Facility: [facility] Address: [address] [place] [address] Result Comment: The reference interval for serum/plasma [...] 15 ng/dL. Performed By: #### R ENIND ####[facility] LABCLIA [id number] [address] [address] [facility] LABCLIA [id number] [place] [address]#### 1763-2 ####[facility] LABCLIA [id number] [address] [address] [place] Basic metabolic 2000 panelon 02-13-2024 Anion gap [Moles/Vol] 8 mmol/L Normal 8-15 [facility] Comment on above: Order Comment: Speci men Type: BLOOD SPECIMENOrdering Facility: [facility] Address: [address] [place] [address] Performed By: #### 1 9123-9, 2777-1, 06420-6, 1751-02 ####[facility] LABCLIA [id number] [place] [address] Calcium [Mass/Vol] 10.4 mg/dL High 8.5-10.2 [facility] Comment on above: Order Comment: Speci men Type: BLOOD SPECIMENOrdering Facility: [facility] Address: [address] [place] [address] Performed By: #### 1 9123-9, 2777-1, 73270-0, 1751-02 ####[facility] LABCLIA [id number] [place] [address] Chloride [Moles/Vol] 106 mmol/L Normal 98-107 [facility] Comment on above: Order Comment: Speci men Type: BLOOD SPECIMENOrdering Facility: [facility] Address: [address] [place] [address] Performed By: #### 1 9123-9, 2777-1, 92689-4, 1751-02 ####[facility] LABCLIA [id number] [place] [address] CO2 [Moles/Vol] 23 mmol/L Normal 22-30 [facility] Comment on above: Order Comment: Speci men Type: BLOOD SPECIMENOrdering Facility: [facility] Address: [address] [place] [address] Performed By: #### 1 9123-9, 2777-1, 06380-9, 1751-02 ####[facility] LABCLIA [id number] [place] [address] Creatinine [Mass/Vol] 0.98 mg/dL High 0.58-0.96 [facility] Comment on above: Order Comment: Speci men Type: BLOOD SPECIMENOrdering Facility: [facility] Address: [address] [place], [place] [address] Performed By: #### 1 9123-9, 2777-1, 53504-5, 1751-02 ####[facility] LABCLIA [id number] [place] [address] Creatinine and Glomerular filtration rate.predicted panel (S/P/Bld) 79 mL/min/1.73m??? Normal >=60 [facility] Comment on above: Order Comment: Peter myles Type: BLOOD SPECIMENOrdering Facility: [facility] Address: [address] [place] [address] Result Comment: Rachel mated Glomerular Filtration Rate [...] GFR. Performed By: #### 1 9123-9, 2777-1, 58945-1, 1751-02 ####[facility] LABCLIA [id number] [place] [address] Glucose [Mass/Vol] 106 mg/dL High 74-99 [facility] Comment on above: Order Comment: Peter myles Type: BLOOD SPECIMENOrdering Facility: [facility] Address: [address] [place] [address] Result Comment: [place] Diabetes [...] 1). Performed By: #### 1 9123-9, 2777-1, 08160-7, 1751-02 ####[facility] LABCLIA [id number] [place] [address] Potassium [Moles/Vol] 4.8 mmol/L Normal 3.7-5.1 [facility] Comment on above: Order Comment: Speci men Type: BLOOD SPECIMENOrdering Facility: [facility] Address: [address] [place] [address] Performed By: #### 1 9123-9, 2777-1, 11906-3, 175-7 ####[facility] LABCLIA [id number] [place] [address] Sodium [Moles/Vol] 137 mmol/L Normal 136-144 [facility] Comment on above: Order Comment: Speci men Type: BLOOD SPECIMENOrdering Facility: [facility] Address: [address] [place] [address] Performed By: #### 1 9123-9, 2777-1, 60830-6, 1757 ####[facility] LABCLIA [id number] [place] [address] Urea nitrogen [Mass/Vol] 35 mg/dL High 7-21 [facility] Comment on above: Order Comment: Speci men Type: BLOOD SPECIMENOrdering Facility: [facility] Address: [address] [place] [address] Performed By: #### 1 9123-9, 2777-1, 55490-2, 1757 ####[facility] LABCLIA [id number] [place] [address] CNPNon 02-13-2024 CNPN Normal [facility] DIRECT RENIN PLASMAon 2023 DIRECT RENIN 5.0 pg/mL Normal 4.2-52.2 [facility] Comment on above: Order Comment: Speci men Type: BLOOD SPECIMENOrdering Facility: [facility] Address: [address] [place] [address] Result Comment: A ra yue of aldosterone [...] 2.5-45.1 pg/mL Performed By: #### R ENIND ####[facility] LABCLIA [id number] [address] LABCLIA [id number] [place] [address]#### 1763-2 ####[facility] LABIA [id number] [address] [place] PATIENT UPRIGHT OR SUPINE Upright Normal [facility] Comment on above: Order Comment: Speci men Type: BLOOD SPECIMENOrdering Facility: [facility] Address: [address] [place] [address] Performed By: #### R ENIND ####[facility] LABCLIA [id number] [address] LABCLIA [id number] [place] [address]#### 1763-2 ####[facility] LABCLIA [id number] [address] [facility] Magnesium SerPl-mCncon 02-12 Magnesium [Mass/Vol] 2.1 mg/dL Normal 1.7-2.3 [facility] Comment on above: Order Comment: Speci men Type: BLOOD SPECIMENOrdering Facility: [facility] Address: [address] [place] [address] Performed By: #### 1 9123-9, 2777-1, 24297-8, 1751-7 ####[facility] LABCLIA [id number] [place] [address] Phosphate SerPl-mCncon 02-12 Phosphate [Mass/Vol] 3.2 mg/dL Normal 2.7-4.8 [facility] Comment on above: Order Comment: Speci men Type: BLOOD SPECIMENOrdering Facility: [facility] Address: [address] [place] [address] Performed By: #### 1 9123-9, 2777-1, 42373-0, 1751-7 ####[facility] LABCLIA [id number] [place] [address] CNOVon 02-12-2024 CNOV Normal [facility] CNPNon 02-07-2024 CNPN Normal [facility] Magnesium SerPl-ncon 02-06 Magnesium [Mass/Vol] 2.3 mg/dL Normal 1.7-2.3 [facility] Comment on above: Order Comment: Speci men Type: BLOOD SPECIMENOrdering Facility: [facility] Address: [address] [place], [place] [address] Performed By: #### 2 4362-6, ####[facility] LABIA [id number] [place] [address] Renal function 2000 panelon 02-07-2024 Albumin [Mass/Vol] 4.6 g/dL Normal 3.9-4.9 [facility] Comment on above: Order Comment: Speci men Type: BLOOD SPECIMENOrdering Facility: [facility] Address: [address] [place], [place] [address] Performed By: #### 2 4362-6, ####[facility] LABIA [id number] [place] [address] Anion gap [Moles/Vol] 8 mmol/L Normal 8-15 [facility] Comment on above: Order Comment: Speci men Type: BLOOD SPECIMENOrdering Facility: [facility] Address: [address] [place] [address] Performed By: #### 2 [address], ####[facility] LABCLIA [id number] [place] [address] Calcium [Mass/Vol] 10.3 mg/dL High 8.5-10.2 [facility] Comment on above: Order Comment: Speci men Type: BLOOD SPECIMENOrdering Facility: [facility] Address: [address] [place] [address] Performed By: #### 2 4366, ####[facility] LABCLIA [id number] [place] [address] Chloride [Moles/Vol] 108 mmol/L High 98-107 [facility] Comment on above: Order Comment: Speci men Type: BLOOD SPECIMENOrdering Facility: [facility] Address: [address] [place] [address] Performed By: #### 2 43609-10, ####[facility] LABCLIA [id number] [place] [address] CO2 [Moles/Vol] 26 mmol/L Normal 22-30 [facility] Comment on above: Order Comment: Speci men Type: BLOOD SPECIMENOrdering Facility: [facility] Address: [address] [place] [address] Performed By: #### 2 4366, ####[facility] LABCLIA [id number] [place] [address] Creatinine [Mass/Vol] 0.92 mg/dL Normal 0.58-0.96 [facility] Comment on above: Order Comment: Speci men Type: BLOOD SPECIMENOrdering Facility: [facility] Address: [address] [place] [address] Performed By: #### 2 4366, ####[facility] LABCLIA [id number] [place] [address] Creatinine and Glomerular filtration rate.predicted panel (S/P/Bld) 85 mL/min/1.73m??? Normal >=60 [facility] Comment on above: Order Comment: Peter myles Type: BLOOD SPECIMENOrdering Facility: [facility] Address: [address] [place] [address] Result Comment: Rachel mated Glomerular Filtration Rate [...] actual GFR. Performed By: #### 2 4362-6, ####[facility] LABIA [id number] [place] [address] Glucose [Mass/Vol] 52 mg/dL Low 74-99 [facility] Comment on above: Order Comment: Peter myles Type: BLOOD SPECIMENOrdering Facility: [facility] Address: [address] [place] [address] Result Comment: [place] Diabetes [...] 2016.39(Suppl 1). Performed By: #### 2 4362-6, 15806-0 ####[facility] LABCLIA [id number] [place] [address] Phosphate [Mass/Vol] 3.7 mg/dL Normal 2.7-4.8 [facility] Comment on above: Order Comment: Peter myles Type: BLOOD SPECIMENOrdering Facility: [facility] Address: [address] [place], [place] [address] Performed By: #### 2 4362-6, ####[facility] LABCLIA [id number] [place] [address] Potassium [Moles/Vol] 4.4 mmol/L Normal 3.7-5.1 [facility] Comment on above: Order Comment: Speci men Type: BLOOD SPECIMENOrdering Facility: [facility] Address: [address] [place], [place] [address] Performed By: #### 2 4362-6, ####[facility] LABIA [id number] [place] [address] Sodium [Moles/Vol] 142 mmol/L Normal 136-144 [facility] Comment on above: Order Comment: Speci men Type: BLOOD SPECIMENOrdering Facility: [facility] Address: [address] [place] [address] Performed By: #### 2 4362-6, ####[facility] LABCLIA [id number] [place] [address] Urea nitrogen [Mass/Vol] 29 mg/dL High 7-21 [facility] Comment on above: Order Comment: Speci men Type: BLOOD SPECIMENOrdering Facility: [facility] Address: [address] [place] [address] Performed By: #### 2 4362-6, ####[facility] LABCLIA [id number] [place] [address] CNOVon 02-04-2024 CNOV Normal [facility] Magnesium SerPl-mCncon 02-02 Magnesium [Mass/Vol] 2.1 mg/dL Normal 1.7-2.3 [facility] Comment on above: Order Comment: Speci men Type: BLOOD SPECIMENOrdering Facility: [facility] Address: [address] [place] [address] Performed By: #### 1 9123-9, 95769-7 ####[facility] LABCLIA [id number] [place] [address] Renal function 2000 panelon 02-03-2024 Albumin [Mass/Vol] 4.5 g/dL Normal 3.9-4.9 [facility] Comment on above: Order Comment: Speci men Type: BLOOD SPECIMENOrdering Facility: [facility] Address: [address] [place] [address] Performed By: #### 1 9123-9, 80284-5 ####[facility] LABCLIA [id number] [place] [address] Anion gap [Moles/Vol] 9 mmol/L Normal 8-15 [facility] Comment on above: Order Comment: Speci men Type: BLOOD SPECIMENOrdering Facility: [facility] Address: [address] [place] [address] Performed By: #### 1 9123-9, 72442-9 ####[facility] LABIA [id number] [place] [address] Calcium [Mass/Vol] 9.9 mg/dL Normal 8.5-10.2 [facility] Comment on above: Order Comment: Speci men Type: BLOOD SPECIMENOrdering Facility: [facility] Address: [address] [place], [place] [address] Performed By: #### 1 9123-9, 03713-2 ####[facility] LABCLIA [id number] [place] [address] Chloride [Moles/Vol] 109 mmol/L High 98-107 [facility] Comment on above: Order Comment: Speci men Type: BLOOD SPECIMENOrdering Facility: [facility] Address: [address] [place], [place] [address] Performed By: #### 1 9123-9, 89176-9 ####[facility] LABCLIA [id number] [place] [address] CO2 [Moles/Vol] 27 mmol/L Normal 22-30 [facility] Comment on above: Order Comment: Speci men Type: BLOOD SPECIMENOrdering Facility: [facility] Address: [address] [place] [address] Performed By: #### 1 9123-9, 56286-9 ####[facility] LABCLIA [id number] [place] [address] Creatinine [Mass/Vol] 0.84 mg/dL Normal 0.58-0.96 [facility] Comment on above: Order Comment: Speci men Type: BLOOD SPECIMENOrdering Facility: [facility] Address: [address] [place] [address] Performed By: #### 1 9123-9, 73735-2 ####[facility] LABCLIA [id number] [place] [address] Creatinine and Glomerular filtration rate.predicted panel (S/P/Bld) 95 mL/min/1.73m??? Normal >=60 [facility] Comment on above: Order Comment: Speci men Type: BLOOD SPECIMENOrdering Facility: [facility] Address: [address] [place] [address] Result Comment: Rachel mated Glomerular Filtration Rate [...] actual GFR. Performed By: #### 1 9123-9, 07386-6 ####[facility] LABIA [id number] [place] [address] Glucose [Mass/Vol] 66 mg/dL Low 74-99 [facility] Comment on above: Order Comment: Speci men Type: BLOOD SPECIMENOrdering Facility: [facility] Address: [address] [place] [address] Result Comment: [place] Diabetes [...] 2016.39(Suppl 1). Performed By: #### 1 9123-9, 95388-9 ####[facility] LABCLIA [id number] [place] [address] Phosphate [Mass/Vol] 3.5 mg/dL Normal 2.7-4.8 [facility] Comment on above: Order Comment: Speci men Type: BLOOD SPECIMENOrdering Facility: [facility] Address: [address] [place] [address] Performed By: #### 1 9123-9, 38088-1 ####[facility] LABIA [id number] [place] [address] Potassium [Moles/Vol] 4.0 mmol/L Normal 3.7-5.1 [facility] Comment on above: Order Comment: Speci men Type: BLOOD SPECIMENOrdering Facility: [facility] Address: [address] [place] [address] Performed By: #### 1 9123-9, 44898-1 ####[facility] LABCLIA [id number] [place] [address] Sodium [Moles/Vol] 145 mmol/L High 136-144 [facility] Comment on above: Order Comment: Speci men Type: BLOOD SPECIMENOrdering Facility: [facility] Address: [address] [place] [address] Performed By: #### 1 9123-9, 02468-5 ####[facility] LABCLIA [id number] [place] [address] Urea nitrogen [Mass/Vol] 23 mg/dL High 7-21 [facility] Comment on above: Order Comment: Speci men Type: BLOOD SPECIMENOrdering Facility: [facility] Address: [address] [place] [address] Performed By: #### 1 9123-9, 50116-0 ####[facility] LABCLIA [id number] [place] [address] ACTH Plas-mCncon 01-29-2024 Corticotropin (P) [Mass/Vol] 1.1 pg/mL Low 7.2-63.3 [facility] Comment on above: Order Comment: Speci men Type: BLOOD SPECIMENOrdering Facility: [facility] Address: [address] [place] [address] Result Comment: ACTH Reference Range: 7-10 am: 7.2 - 63.3 pg/mL Performed By: #### 2 141-0 ####[facility] LABCLIA [id number] [address] [place] OF [facility] Aldost SerPl-mCncon 01-29-20 Aldosterone [Mass/Vol] 4.7 ng/dL Normal 0.0-<35.4 [facility] Comment on above: Order Comment: Speci men Type: BLOOD SPECIMENOrdering Facility: [facility] Address: [address] [place] [address] Result Comment: The reference interval for serum/plasma [...] ng/dL. Performed By: #### R JULIANO, 1763-2 ####[facility] LABCLIA [id number] [facility] [place] [id number] [place] Basic metabolic 2000 panelon 01-29-2024 Anion gap [Moles/Vol] 13 mmol/L Normal 8-15 [facility] Comment on above: Order Comment: Speci men Type: BLOOD SPECIMENOrdering Facility: [facility] Address: [address] [place] [address] Performed By: #### 2 43208-06, 2143-01 ####[facility] LABCLIA [id number] [place] [address] [place] Calcium [Mass/Vol] 9.1 mg/dL Normal 8.5-10.2 [facility] Comment on above: Order Comment: Speci men Type: BLOOD SPECIMENOrdering Facility: [facility] Address: [address] [place] [address] Performed By: #### 2 4320-09, 2143-01 ####[facility] LABCLIA [id number] [place] [address] [place] Chloride [Moles/Vol] 105 mmol/L Normal 98-107 [facility] Comment on above: Order Comment: Speci men Type: BLOOD SPECIMENOrdering Facility: [facility] Address: [address] [place] [address] Performed By: #### 2 43208-06, 2143-01 ####[facility] LABCLIA [id number] [place] [id number] [place] CO2 [Moles/Vol] 20 mmol/L Low 22-30 [facility] Comment on above: Order Comment: Speci men Type: BLOOD SPECIMENOrdering Facility: [facility] Address: [address] [place], [place] [address] Performed By: #### 2 43208-06, 2143-01 ####[facility] LABCLIA [id number] [place] [id number] [place] Creatinine [Mass/Vol] 0.78 mg/dL Normal 0.58-0.96 [facility] Comment on above: Order Comment: Peter myles Type: BLOOD SPECIMENOrdering Facility: [facility] Address: [address] [place] [address] Performed By: #### 2 4321-2, 2143-01 ####[facility] LABCLIA [id number] [place] [address] [place] Creatinine and Glomerular filtration rate.predicted panel (S/P/Bld) 104 mL/min/1.73m??? Normal >=60 [facility] Comment on above: Order Comment: Peter myles Type: BLOOD SPECIMENOrdering Facility: [facility] Address: [address] [place] [address] Result Comment: Rachel mated Glomerular Filtration Rate [...] reflect actual GFR. Performed By: #### 2 4320-09, 2143-01 ####[facility] LABCLIA [id number] [place] [address] [place] Glucose [Mass/Vol] 111 mg/dL High 74-99 [facility] Comment on above: Order Comment: Peter myles Type: BLOOD SPECIMENOrdering Facility: [facility] Address: [address] [place] [address] Result Comment: [place] Diabetes [...] 1). Performed By: #### 2 432-2, 2143-01 ####[facility] LABCLIA [id number] [address] [address] [place] Potassium [Moles/Vol] 4.8 mmol/L Normal 3.7-5.1 [facility] Comment on above: Order Comment: Speci men Type: BLOOD SPECIMENOrdering Facility: [facility] Address: [address] [place] [address] Performed By: #### 2 43208-06, 2143-01 ####[facility] LABCLIA [id number] [place] [address] [place] Sodium [Moles/Vol] 138 mmol/L Normal 136-144 [facility] Comment on above: Order Comment: Speci men Type: BLOOD SPECIMENOrdering Facility: [facility] Address: [address] [place] [address] Performed By: #### 2 4320-09, 2143-01 ####[facility] LABCLIA [id number] [place] [address] [place] Urea nitrogen [Mass/Vol] 24 mg/dL High 7-21 [facility] Comment on above: Order Comment: Speci men Type: BLOOD SPECIMENOrdering Facility: [facility] Address: [address] [place] [address] Performed By: #### 2 4320-09, 2143-01 ####[facility] LABCLIA [id number] [place] [id number] [place] CBC panel Auto (Bld)on 01-28 Erythrocyte distribution width (RBC) [Ratio] 14.2 % Normal 11.5-15.0 [facility] Comment on above: Order Comment: Speci men Type: BLOOD SPECIMENOrdering Facility: [facility] Address: [address] [place] [address] Performed By: #### 5 8410-2 ####[facility] LABCLIA [id number] [place] [address] [place] Hematocrit (Bld) [Volume fraction] 41.0 % Normal 36.0-46.0 [facility] Comment on above: Order Comment: Speci men Type: BLOOD SPECIMENOrdering Facility: [facility] Address: [address] [place] [address] Performed By: #### 5 8410-2 ####[facility] LABCLIA [id number] [place] [address] [place] Hemoglobin (Bld) [Mass/Vol] 13.8 g/dL Normal 11.5-15.5 [facility] Comment on above: Order Comment: Speci men Type: BLOOD SPECIMENOrdering Facility: [facility] Address: [address] [place] [address] Performed By: #### 5 8410-2 ####[facility] LABIA [id number] [place] [address] [place] MCH (RBC) [Entitic mass] 29.6 pg Normal 26.0-34.0 [facility] Comment on above: Order Comment: Speci men Type: BLOOD SPECIMENOrdering Facility: [facility] Address: [address] [place] [address] Performed By: #### 5 8410-2 ####[facility] LABCLIA [id number] [place] [address] [place] MCHC (RBC) [Mass/Vol] 33.7 g/dL Normal 30.5-36.0 [facility] Comment on above: Order Comment: Speci men Type: BLOOD SPECIMENOrdering Facility: [facility] Address: [address] [place] [address] Performed By: #### 5 8410-2 ####[facility] LABCLIA [id number] [place] [address] [place] MCV (RBC) [Entitic vol] 87.8 fL Normal 80.0-100.0 C [facility] Comment on above: Order Comment: Speci men Type: BLOOD SPECIMENOrdering Facility: [facility] Address: [address] [place] [address] Performed By: #### 5 8410-2 ####[facility] LABIA [id number] [place] [address] [place] Nucleated RBC (Bld) [#/Vol] 10*3/uL Normal <0.01 [facility] Comment on above: Order Comment: Speci men Type: BLOOD SPECIMENOrdering Facility: [facility] Address: [address] [place] [address] Performed By: #### 5 8410-2 ####[facility] LABIA [id number] [place] [address] [place] Platelet mean volume (Bld) [Entitic vol] 12.5 fL Normal 9.0-12.7 [facility] Comment on above: Order Comment: Speci men Type: BLOOD SPECIMENOrdering Facility: [facility] Address: [address] [place] [address] Performed By: #### 5 8410-2 ####[facility] LABIA [id number] [place] [address] [place] Platelets (Bld) [#/Vol] 183 10*3/uL Normal 150-400 [facility] Comment on above: Order Comment: Speci men Type: BLOOD SPECIMENOrdering Facility: [facility] Address: [address] [place] [address] Performed By: #### 5 8410-2 ####[facility] LABCLIA [id number] [place] [address] [place] RBC (Bld) [#/Vol] 4.67 10*6/uL Normal 3.90-5.[address] [facility] Comment on above: Order Comment: Speci men Type: BLOOD SPECIMENOrdering Facility: [facility] Address: [address] [place] [address] Performed By: #### 5 8410-2 ####[facility] LABCLIA [id number] [place] [address] [place] WBC (Bld) [#/Vol] 10.35 10*3/uL Normal 3.70-11.00 [facility] Comment on above: Order Comment: Speci men Type: BLOOD SPECIMENOrdering Facility: [facility] Address: [address] [place] [address] Performed By: #### 5 8410-2 ####[facility] LABCLIA [id number] [place] [address] [place] CNCOon 01-29-2024 CNCO Letter Text Normal [facility] CNDSon 01-29-2024 CNDS Normal [facility] CORTISOL, 30 MINon 4 Cortisol 30 Min post Unsp challenge [Mass/Vol] 7.8 ug/dL Normal [facility] Comment on above: Order Comment: Speci men Type: BLOOD SPECIMENOrdering Facility: [facility] Address: [address] [place] [address] Performed By: #### C OR30 ####[facility] LABCLIA [id number] [place] [address] [place] CORTISOL, 60 MINon 4 Cortisol 1 Hr post Unsp challenge [Mass/Vol] 10.6 ug/dL Normal [facility] Comment on above: Order Comment: Speci men Type: BLOOD SPECIMENOrdering Facility: [facility] Address: [address] [place] [address] Performed By: #### C ORS60M ####[facility] LABCLIA [id number] [place] [address] [place] INTERPRETATION (ACTHST) Normal C [facility] Comment on above: Order Comment: Speci shar Type: BLOOD SPECIMENOrdering Facility: [facility] Address: [address] [place] [address] Result Comment: Afte r cortrosyn stimulation, a peak cortisol response greater than 12.6 ug/dL may indicate appropriate cortisol secretion. This result should be interpreted within the clinical context and other test results.Yannick et al. Clinical Implications for Biochemical Diagnostic Thresholds of Adrenal Sufficiency Using a Highly Specific Cortisol Immunoassay. 2017 Clin. Biochem. 50:475-480. Performed By: #### C ORS60M ####[facility] LABCLIA [id number] [place] [address] [place] Cortis SerPl-mCncon 01-29-20 Cortisol [Mass/Vol] 0.5 ug/dL Low 4.8-19.[address] [facility] Comment on above: Order Comment: Peter shar Type: BLOOD SPECIMENOrdering Facility: [facility] Address: [address] [place] [address] Result Comment: Prov ided reference range is from 6-10 AM sample collection time.Cortisol Reference Range: 6-10 AM = 4.8-19.5 ug/dL, 4-8 PM = 2.5-11.9 ug/dL Performed By: #### 2 4321-2, 2143-6 ####[facility] LABCLIA [id number] [address] [place] DIRECT RENIN PLASMAon 2023 DIRECT RENIN <2.1 Low 4.2-52.2 [facility] Comment on above: Order Comment: [facility] Type: BLOOD SPECIMENOrdering Facility: [facility] Address: [address] [place] [address] Result Comment: A ra yue of aldosterone [...] >=41 years: 2.5-45.1 pg/mL Performed By: #### Kathi HENAO, 1762-2 ####[facility] LABCLIA [id number] [place] [address] [place] PATIENT UPRIGHT OR SUPINE Upright Normal [facility] Comment on above: Order Comment: Speci men Type: BLOOD SPECIMENOrdering Facility: [facility] Address: [address] [place] [address] Performed By: #### Kathi HENAO, 1762- ####[facility] LABCLIA [id number] [place] [address] [place] ANES POSTPROC EVALon 024 ANES POSTPROC EVAL Normal [facility] ANES PRE-OPon 01-28-2024 ANES PRE-OP Normal [facility] ARTERIAL BLOOD GASES WITH IO NIZED MAGNESIUMon 01-28-2024 Base deficit (BldA) [Moles/Vol] -3 mmol/L Low -2-0 [facility] Comment on above: Order Comment: Speci men Type: ARTERIAL BLOOD SPECIMENOrdering Facility: [facility] Address: [address] [place] [address] Performed By: #### A LLMG ####[facility] LABIA [id number] [place] [address] [place] Calcium.ionized (Bld) [Mass/Vol] 1.28 mmol/L Normal 1.08-1.30 [facility] Comment on above: Order Comment: Speci men Type: ARTERIAL BLOOD SPECIMENOrdering Facility: [facility] Address: [address] [place] [address] Performed By: #### A LLMG ####[facility] LABCLIA [id number] [place] [address] [place] Calcium.ionized adjusted to pH 7.4 (BldA) [Moles/Vol] 1.23 mmol/L Normal 1.08-1.30 [facility] Comment on above: Order Comment: Speci men Type: ARTERIAL BLOOD SPECIMENOrdering Facility: [facility] Address: [address] [place] [address] Performed By: #### A LLMG ####[facility] LABCLIA [id number] [place] [address] [place] Carboxyhemoglobin (BldA) [Mass fraction] 0.8 % Normal 0.0-2.0 [facility] Comment on above: Order Comment: Speci men Type: ARTERIAL BLOOD SPECIMENOrdering Facility: [facility] Address: [address] [place] [address] Result Comment: Carb oxyhemoglobin Reference Range for Smokers: 2.0-8.0% Performed By: #### A LLMG ####[facility] LABCLIA [id number] [place] [address] [place] CO2 (Bld) [Partial pressure] 45 mm Hg Normal 36-46 [facility] Comment on above: Order Comment: Speci men Type: ARTERIAL BLOOD SPECIMENOrdering Facility: [facility] Address: [address] [place] [address] Performed By: #### A LLMG ####[facility] LABCLIA [id number] [place] [address] [place] CO2 adjusted to patient's actual temperature (Bld) [Partial pressure] 45 mmHg Normal 36-46 [facility] Comment on above: Order Comment: Speci men Type: ARTERIAL BLOOD SPECIMENOrdering Facility: [facility] Address: [address] [place] [address] Performed By: #### A LLMG ####[facility] LABCLIA [id number] [place] [address] [place] Glucose [Mass/Vol] 94 mg/dL Normal 60-105 [facility] Comment on above: Order Comment: Speci men Type: ARTERIAL BLOOD SPECIMENOrdering Facility: [facility] Address: [address] [place] [address] Performed By: #### A LLMG ####[facility] LABCLIA [id number] [place] [address] [place] HCO3 (Bld) [Moles/Vol] 23 mmol/L Normal 22-26 [facility] Comment on above: Order Comment: Speci men Type: ARTERIAL BLOOD SPECIMENOrdering Facility: [facility] Address: [address] [place] [address] Performed By: #### A LLMG ####[facility] LABCLIA [id number] [place] [address] [place] Hematocrit (Bld) [Volume fraction] 42.6 % Normal 36.0-46.0 [facility] Comment on above: Order Comment: Speci men Type: ARTERIAL BLOOD SPECIMENOrdering Facility: [facility] Address: [address] [place] [address] Performed By: #### A LLMG ####[facility] LABIA [id number] [place] [address] [place] Hemoglobin (Bld) [Mass/Vol] 13.9 g/dL Normal 11.5-15.5 [facility] Comment on above: Order Comment: Speci men Type: ARTERIAL BLOOD SPECIMENOrdering Facility: [facility] Address: [address] [place] [address] Performed By: #### A LLMG ####[facility] LABCLIA [id number] [place] [address] [place] Lactate [Moles/Vol] 1.2 mmol/L Normal 0.5-2.[address] [facility] Comment on above: Order Comment: Speci men Type: ARTERIAL BLOOD SPECIMENOrdering Facility: [facility] Address: [address] [place] [address] Performed By: #### A LLMG ####[facility] LABIA [id number] [place] [address] [place] Magnesium [Moles/Vol] 0.52 mmol/L Normal 0.45-0.60 [facility] Comment on above: Order Comment: Speci men Type: ARTERIAL BLOOD SPECIMENOrdering Facility: [facility] Address: [address] [place] [address] Performed By: #### A LLMG ####[facility] LABCLIA [id number] [place] [address] [place] Methemoglobin (Bld) [Mass fraction] 0.8 % Normal 0.0-1.5 [facility] Comment on above: Order Comment: Speci men Type: ARTERIAL BLOOD SPECIMENOrdering Facility: [facility] Address: [address] [place] [address] Performed By: #### A LLMG ####[facility] LABCLIA [id number] [place] [address] [place] Oxygen (Bld) [Partial pressure] 181 mm Hg High 85-95 [facility] Comment on above: Order Comment: Speci men Type: ARTERIAL BLOOD SPECIMENOrdering Facility: [facility] Address: [address] [place] [address] Performed By: #### A LLMG ####[facility] LABCLIA [id number] [place] [address] [place] Oxygen adjusted to patient's actual temperature (Bld) [Partial pressure] 181 mmHg High 85-95 [facility] Comment on above: Order Comment: Speci men Type: ARTERIAL BLOOD SPECIMENOrdering Facility: [facility] Address: [address] [place] [address] Performed By: #### A LLMG ####[facility] LABCLIA [id number] [place] [id number] [place] Oxyhemoglobin (BldA) [Mass fraction] 98 % Normal 95-98 [facility] Comment on above: Order Comment: Speci men Type: ARTERIAL BLOOD SPECIMENOrdering Facility: [facility] Address: [address] [place] [address] Performed By: #### A LLMG ####[facility] LABCLIA [id number] [place] [address] [place] pH (Bld) 7.33 [pH] Low 7.35-7.45 [facility] Comment on above: Order Comment: Speci men Type: ARTERIAL BLOOD SPECIMENOrdering Facility: [facility] Address: [address] [place] [address] Performed By: #### A LLMG ####[facility] LABIA [id number] [place] [address] [place] pH adjusted to patient's actual temperature (Bld) 7.33 Low 7.35-7.45 [facility] Comment on above: Order Comment: Speci men Type: ARTERIAL BLOOD SPECIMENOrdering Facility: [facility] Address: [address] [place] [address] Performed By: #### A LLMG ####[facility] LABIA [id number] [place] [address] [place] Potassium [Moles/Vol] 4.3 mmol/L Normal 3.5-5.0 [facility] Comment on above: Order Comment: Speci men Type: ARTERIAL BLOOD SPECIMENOrdering Facility: [facility] Address: [address] [place] [address] Performed By: #### A LLMG ####[facility] LABCLIA [id number] [place] [address] [place] Sodium [Moles/Vol] 139 mmol/L Normal 136-144 [facility] Comment on above: Order Comment: Speci men Type: ARTERIAL BLOOD SPECIMENOrdering Facility: [facility] Address: [address] [place] [address] Performed By: #### A LLMG ####[facility] LABCLIA [id number] [address] [place] BRIEF OP NOTon 01-28-2024 BRIEF OP NOT Normal [facility] Basic metabolic 2000 panelon 01-28-2024 Anion gap [Moles/Vol] 11 mmol/L Normal 8-15 [facility] Comment on above: Order Comment: Speci men Type: BLOOD SPECIMENOrdering Facility: [facility] Address: [address] [place], [place] [address] Performed By: #### 2 4321-2 ####[facility] LABCLIA [id number] [place] [address] [place] Calcium [Mass/Vol] 9.1 mg/dL Normal 8.5-10.2 [facility] Comment on above: Order Comment: Speci men Type: BLOOD SPECIMENOrdering Facility: [facility] Address: [address] [place] [address] Performed By: #### 2 4321-2 ####[facility] LABCLIA [id number] [place] [address] [place] Chloride [Moles/Vol] 107 mmol/L Normal 98-107 [facility] Comment on above: Order Comment: Speci men Type: BLOOD SPECIMENOrdering Facility: [facility] Address: [address] [place], [place] [address] Performed By: #### 2 4321-2 ####[facility] LABCLIA [id number] [place] [address] [place] CO2 [Moles/Vol] 21 mmol/L Low 22-30 [facility] Comment on above: Order Comment: Speci men Type: BLOOD SPECIMENOrdering Facility: [facility] Address: [address] [place], [place] [address] Performed By: #### 2 4321-2 ####[facility] LABCLIA [id number] [place] [id number] [place] Creatinine [Mass/Vol] 0.70 mg/dL Normal 0.58-0.96 [facility] Comment on above: Order Comment: Peter myles Type: BLOOD SPECIMENOrdering Facility: [facility] Address: [address] [place] [address] Performed By: #### 2 4321-2 ####[facility] LABCLIA [id number] [place] [address] [place] Creatinine and Glomerular filtration rate.predicted panel (S/P/Bld) 118 mL/min/1.73m??? Normal >=60 [facility] Comment on above: Order Comment: Peter myles Type: BLOOD SPECIMENOrdering Facility: [facility] Address: [address] [place] [address] Result Comment: Rachel mated Glomerular Filtration Rate [...] actual GFR. Performed By: #### 2 4321-2 ####[facility] LABIA [id number] [place] [address] [place] Glucose [Mass/Vol] 114 mg/dL High 74-99 [facility] Comment on above: Order Comment: Peter myles Type: BLOOD SPECIMENOrdering Facility: [facility] Address: [address] [place] [address] Result Comment: [place] Diabetes [...] 2016.39(Suppl 1). Performed By: #### 2 4321-2 ####[facility] LABCLIA [id number] [place] [address] [place] Potassium [Moles/Vol] 4.7 mmol/L Normal 3.7-5.1 [facility] Comment on above: Order Comment: Speci men Type: BLOOD SPECIMENOrdering Facility: [facility] Address: [address] [place] [address] Performed By: #### 2 4321-2 ####[facility] LABCLIA [id number] [place] [address] [place] Sodium [Moles/Vol] 139 mmol/L Normal 136-144 [facility] Comment on above: Order Comment: Speci men Type: BLOOD SPECIMENOrdering Facility: [facility] Address: [address] [place] [address] Performed By: #### 2 4321-2 ####[facility] LABCLIA [id number] [place] [address] [place] Urea nitrogen [Mass/Vol] 21 mg/dL Normal 7-21 [facility] Comment on above: Order Comment: Speci men Type: BLOOD SPECIMENOrdering Facility: [facility] Address: [address] [place] [address] Performed By: #### 2 4321-2 ####[facility] LABCLIA [id number] [place] [address] [place] Anion gap [Moles/Vol] 13 mmol/L Normal 8-15 [facility] Comment on above: Order Comment: Speci men Type: BLOOD SPECIMENOrdering Facility: [facility] Address: [address] [place] [address] Performed By: #### 2 4321-2 ####[facility] LABIA [id number] [place] [address] [place] Calcium [Mass/Vol] 9.7 mg/dL Normal 8.5-10.2 [facility] Comment on above: Order Comment: Speci men Type: BLOOD SPECIMENOrdering Facility: [facility] Address: [address] [place] [address] Performed By: #### 2 4321-2 ####[facility] LABCLIA [id number] [place] [address] [place] Chloride [Moles/Vol] 107 mmol/L Normal 98-107 [facility] Comment on above: Order Comment: Speci men Type: BLOOD SPECIMENOrdering Facility: [facility] Address: [address] [place] [address] Performed By: #### 2 4321-2 ####[facility] LABCLIA [id number] [place] [address] [place] CO2 [Moles/Vol] 22 mmol/L Normal 22-30 [facility] Comment on above: Order Comment: Speci men Type: BLOOD SPECIMENOrdering Facility: [facility] Address: [address] [place] [address] Performed By: #### 2 4321-2 ####[facility] LABCLIA [id number] [place] [address] [place] Creatinine [Mass/Vol] 0.80 mg/dL Normal 0.58-0.96 [facility] Comment on above: Order Comment: Speci men Type: BLOOD SPECIMENOrdering Facility: [facility] Address: [address] [place] [address] Performed By: #### 2 4321-2 ####[facility] LABCLIA [id number] [place] [address] [place] Creatinine and Glomerular filtration rate.predicted panel (S/P/Bld) 101 mL/min/1.73m??? Normal >=60 [facility] Comment on above: Order Comment: Speci men Type: BLOOD SPECIMENOrdering Facility: [facility] Address: [address] [place] [address] Result Comment: Rachel mated Glomerular Filtration Rate [...] actual GFR. Performed By: #### 2 4321-2 ####[facility] LABCLIA [id number] [place] [address] [place] Glucose [Mass/Vol] 80 mg/dL Normal 74-99 [facility] Comment on above: Order Comment: Speccollins myles Type: BLOOD SPECIMENOrdering Facility: [facility] Address: [address] [place] [address] Result Comment: [place] Diabetes [...] 2016.39(Suppl 1). Performed By: #### 2 4321-2 ####[facility] LABCLIA [id number] [place] [address] [place] Potassium [Moles/Vol] 4.2 mmol/L Normal 3.7-5.1 [facility] Comment on above: Order Comment: Peter myles Type: BLOOD SPECIMENOrdering Facility: [facility] Address: [address] [place] [address] Performed By: #### 2 4321-2 ####[facility] LABCLIA [id number] [place] [address] [place] Sodium [Moles/Vol] 142 mmol/L Normal 136-144 [facility] Comment on above: Order Comment: Speci men Type: BLOOD SPECIMENOrdering Facility: [facility] Address: [address] [place] [address] Performed By: #### 2 4321-2 ####[facility] LABCLIA [id number] [place] [address] [place] Urea nitrogen [Mass/Vol] 29 mg/dL High 7-21 [facility] Comment on above: Order Comment: Speci men Type: BLOOD SPECIMENOrdering Facility: [facility] Address: [address] [place] [address] Performed By: #### 2 4321-2 ####[facility] LABCLIA [id number] [place] [address] [place] CASE MGT INIT ASSESon 2023 CASE MGT INIT ASSES Normal [facility] CBC W Auto Differential pane l (Bld)on 01-28-2024 Basophils (Bld) [#/Vol] 10*3/uL Normal <0.11 [facility] Comment on above: Order Comment: Speci men Type: BLOOD SPECIMENOrdering Facility: [facility] Address: [address] [place] [address] Performed By: #### 5 7021-8 ####[facility] LABCLIA [id number] [place] [address] [place] Basophils/100 WBC (Bld) 0.2 % Normal C [facility] Comment on above: Order Comment: Speci men Type: BLOOD SPECIMENOrdering Facility: [facility] Address: [address] [place] [address] Performed By: #### 5 7021-8 ####[facility] LABCLIA [id number] [place] [address] [place] Differential cell count method Nom (Bld) Auto Normal [facility] Comment on above: Order Comment: Speci men Type: BLOOD SPECIMENOrdering Facility: [facility] Address: [address] [place] [address] Performed By: #### 5 7021-8 ####[facility] LABCLIA [id number] [place] [address] [place] Eosinophils (Bld) [#/Vol] 0.04 10*3/uL Normal <0.46 [facility] Comment on above: Order Comment: Speci men Type: BLOOD SPECIMENOrdering Facility: [facility] Address: [address] [place] [address] Performed By: #### 5 7021-8 ####[facility] LABIA [id number] [place] [address] [place] Eosinophils/100 WBC (Bld) 0.4 % Normal [facility] Comment on above: Order Comment: Speci men Type: BLOOD SPECIMENOrdering Facility: [facility] Address: [address] [place] [address] Performed By: #### 5 7021-8 ####[facility] LABCLIA [id number] [place] [address] [place] Erythrocyte distribution width (RBC) [Ratio] 14.2 % Normal 11.5-15.0 [facility] Comment on above: Order Comment: Speci men Type: BLOOD SPECIMENOrdering Facility: [facility] Address: [address] [place] [address] Performed By: #### 5 7021-8 ####[facility] LABCLIA [id number] [place] [address] [place] Hematocrit (Bld) [Volume fraction] 42.4 % Normal 36.0-46.0 [facility] Comment on above: Order Comment: Speci men Type: BLOOD SPECIMENOrdering Facility: [facility] Address: [address] [place] [address] Performed By: #### 5 7021-8 ####[facility] LABCLIA [id number] [place] [address] [place] Hemoglobin (Bld) [Mass/Vol] 14.4 g/dL Normal 11.5-15.5 [facility] Comment on above: Order Comment: Speci men Type: BLOOD SPECIMENOrdering Facility: [facility] Address: [address] [place] [address] Performed By: #### 5 7021-8 ####[facility] LABCLIA [id number] [place] [address] [place] Immature granulocytes (Bld) [#/Vol] 0.04 10*3/uL Normal <0.10 [facility] Comment on above: Order Comment: Speci men Type: BLOOD SPECIMENOrdering Facility: [facility] Address: [address] [place] [address] Performed By: #### 5 7021-8 ####[facility] LABIA [id number] [place] [address] [place] Immature granulocytes/100 WBC (Bld) 0.4 % Normal [facility] Comment on above: Order Comment: Speci men Type: BLOOD SPECIMENOrdering Facility: [facility] Address: [address] [place] [address] Performed By: #### 5 7021-8 ####[facility] LABCLIA [id number] [place] [address] [place] [place] Lymphocytes (Bld) [#/Vol] 1.12 10*3/uL Normal 1.00-4.00 [facility] Comment on above: Order Comment: Speci men Type: BLOOD SPECIMENOrdering Facility: [facility] Address: [address] [place] [address] Performed By: #### 5 7021-8 ####[facility] LABCLIA [id number] [place] [address] [place] Lymphocytes/100 WBC (Bld) 10.1 % Normal [facility] Comment on above: Order Comment: Speci men Type: BLOOD SPECIMENOrdering Facility: [facility] Address: [address] [place] [address] Performed By: #### 5 7021-8 ####[facility] LABCLIA [id number] [place] [address] [place] MCH (RBC) [Entitic mass] 30.1 pg Normal 26.0-34.0 [facility] Comment on above: Order Comment: Speci men Type: BLOOD SPECIMENOrdering Facility: [facility] Address: [address] [place] [address] Performed By: #### 5 7021-8 ####[facility] LABIA [id number] [place] [address] [place] MCHC (RBC) [Mass/Vol] 34.0 g/dL Normal 30.5-36.0 [facility] Comment on above: Order Comment: Speci men Type: BLOOD SPECIMENOrdering Facility: [facility] Address: [address] [place] [address] Performed By: #### 5 7021-8 ####[facility] LABIA [id number] [place] [address] [place] MCV (RBC) [Entitic vol] 88.5 fL Normal 80.0-100.0 C [facility] Comment on above: Order Comment: Speci men Type: BLOOD SPECIMENOrdering Facility: [facility] Address: [address] [place] [address] Performed By: #### 5 7021-8 ####[facility] LABIA [id number] [place] [address] [place] Monocytes (Bld) [#/Vol] 0.22 10*3/uL Normal <0.87 [facility] Comment on above: Order Comment: Speci men Type: BLOOD SPECIMENOrdering Facility: [facility] Address: [address] [place] [address] Performed By: #### 5 7021-8 ####[facility] LABCLIA [id number] [place] [address] [place] Monocytes/100 WBC (Bld) 2.0 % Normal [facility] Comment on above: Order Comment: Speci men Type: BLOOD SPECIMENOrdering Facility: [facility] Address: [address] [place] [address] Performed By: #### 5 7021-8 ####[facility] LABCLIA [id number] [place] [address] [place] Neutrophils (Bld) [#/Vol] 9.64 10*3/uL High 1.45-7.50 [facility] Comment on above: Order Comment: Speci men Type: BLOOD SPECIMENOrdering Facility: [facility] Address: [address] [place] [address] Performed By: #### 5 7021-8 ####[facility] LABCLIA [id number] [place] [address] [place] Neutrophils/100 WBC (Bld) 86.9 % Normal [facility] Comment on above: Order Comment: Speci men Type: BLOOD SPECIMENOrdering Facility: [facility] Address: [address] [place] [address] Performed By: #### 5 7021-8 ####[facility] LABCLIA [id number] [place] [address] [place] Nucleated RBC (Bld) [#/Vol] 10*3/uL Normal <0.01 [facility] Comment on above: Order Comment: Speci men Type: BLOOD SPECIMENOrdering Facility: [facility] Address: [address] [place] [address] Performed By: #### 5 7021-8 ####[facility] LABCLIA [id number] [place] [address] [place] Nucleated RBC/100 WBC (Bld) [Ratio] 0.0 /100 WBC Normal [facility] Comment on above: Order Comment: Speci men Type: BLOOD SPECIMENOrdering Facility: [facility] Address: [address] [place] [address] Performed By: #### 5 7021-8 ####[facility] LABCLIA [id number] [place] [address] [place] Platelet mean volume (Bld) [Entitic vol] 11.4 fL Normal 9.0-12.7 [facility] Comment on above: Order Comment: Speci men Type: BLOOD SPECIMENOrdering Facility: [facility] Address: [address] [place] [address] Performed By: #### 5 7021-8 ####[facility] LABCLIA [id number] [place] [address] [place] Platelets (Bld) [#/Vol] 158 10*3/uL Normal 150-400 [facility] Comment on above: Order Comment: Speci men Type: BLOOD SPECIMENOrdering Facility: [facility] Address: [address] [place] [address] Performed By: #### 5 7021-8 ####[facility] LABIA [id number] [place] [address] [place] RBC (Bld) [#/Vol] 4.79 10*6/uL Normal 3.90-5.[address] [facility] Comment on above: Order Comment: Speci men Type: BLOOD SPECIMENOrdering Facility: [facility] Address: [address] [place] [address] Performed By: #### 5 7021-8 ####[facility] LABCLIA [id number] [place] [address] [place] WBC (Bld) [#/Vol] 11.08 10*3/uL High 3.70-11.00 [facility] Comment on above: Order Comment: Speci men Type: BLOOD SPECIMENOrdering Facility: [facility] Address: [address] [place] [address] Performed By: #### 5 7021-8 ####[facility] LABCLIA [id number] [place] [address] [place] OPERATIVE NOon 01-28-2024 OPERATIVE NO Normal [facility] SURGICAL PATHOLOGYon 024 CASE REPORT Normal [facility] Comment on above: Order Comment: Speci men Type: TISSUE SPECIMENOrdering Facility: [facility] Address: [address] [place] [address] Result Comment: Surg ical Pathology Report Case: [id number] Provider: Mario Sullivan MD Collected: 01/28/2024 05:14 PMOrdering Location: Admitting Received: 01/28/2024 05:57 PMPathologist: Carlos Myers MDSpecimen: Adrenal Gland, Left, Resection Performed By: #### S ####[facility] LABCLIA [id number] [place] [address] [place] CLINICAL HISTORY Normal 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 A drenal gland, left, adrenalectomy:- Adrenal cortical adenoma (2.1 cm). Performed By: #### S ####[facility] LABCLIA [id number] [place] [address] [place] FINAL PERFORMING LAB Normal [facility] Comment on above: Order Comment: Speci men Type: TISSUE SPECIMENOrdering Facility: [facility] Address: [address] [place] [address] Result Comment: Diag nostic interpretation performed at [facility], [address] [place] [address] CLIA# [id number] Director: Benito Cheng M.D. Performed By: #### S ####[facility] LABIA [id number] [address] [place] GROSS DESCRIPTION Normal [facility] Comment on above: Order Comment: Speci men Type: TISSUE SPECIMENOrdering Facility: [facility] Address: [address] [place] [address] Result Comment: A. A drenal Gland, Left, [...] adrenal tissue adjacent to the mass appears unremarkable.Teacher Assistant sections are submitted as follows:Y0-N4-rbmwvx massA3- mass to adjacent uninvolved adrenalA4-uninvolved adrenalGross examination performed at [facility], [address] [place] [address] CLIA # [id number] 01/29/24 12:08 PM Performed By: #### S ####[facility] LABCLIA [id number] [place] [address] [place] Basic metabolic 2000 panelon 06-24-2024 Anion gap [Moles/Vol] 11 mmol/L Normal 8-15 [facility] Comment on above: Order Comment: Speci men Type: BLOOD SPECIMENOrdering Facility: [facility] Address: [address] [place] [address] Performed By: #### 2 4321-2, 2776-08, ####[facility] LABCLIA [id number] [facility] [place] [address] [place] Calcium [Mass/Vol] 9.3 mg/dL Normal 8.5-10.2 [facility] Comment on above: Order Comment: Speci men Type: BLOOD SPECIMENOrdering Facility: [facility] Address: [address] [place] [address] Performed By: #### 2 4321-2, 2776-08, ####[facility] LABCLIA [id number] [place] [address] [place] Chloride [Moles/Vol] 110 mmol/L High 98-107 [facility] Comment on above: Order Comment: Speci men Type: BLOOD SPECIMENOrdering Facility: [facility] Address: [address] [place] [address] Performed By: #### 2 4321-2, 2776-08, ####[facility] LABCLIA [id number] [facility] [place] [id number] [place] CO2 [Moles/Vol] 20 mmol/L Low 22-30 [facility] Comment on above: Order Comment: Speci men Type: BLOOD SPECIMENOrdering Facility: [facility] Address: [address] [place] [address] Performed By: #### 2 4321-2, 2776-08, ####[facility] LABCLIA [id number] [facility] [address] [address] [place] Creatinine [Mass/Vol] 0.87 mg/dL Normal 0.58-0.96 [facility] Comment on above: Order Comment: Peter myles Type: BLOOD SPECIMENOrdering Facility: [facility] Address: [address] [place] [address] Performed By: #### 2 4321-2, 2777-, ####[facility] LABCLIA [id number] [place] [address] [place] Creatinine and Glomerular filtration rate.predicted panel (S/P/Bld) 91 mL/min/1.73m??? Normal >=60 [facility] Comment on above: Order Comment: Peter myles Type: BLOOD SPECIMENOrdering Facility: [facility] Address: [address] [place] [address] Result Comment: Rachel mated Glomerular Filtration Rate [...] actual GFR. Performed By: #### 2 4321-2, 2777-, ####[facility] LABIA [id number] [place] [address] [place] Glucose [Mass/Vol] 87 mg/dL Normal 74-99 [facility] Comment on above: Order Comment: Peter myles Type: BLOOD SPECIMENOrdering Facility: [facility] Address: [address] [place] [address] Result Comment: [place] Diabetes [...] 2016.39(Suppl 1). Performed By: #### 2 4321-2, 2776-08, ####[facility] LABCLIA [id number] [address] [address] [place] Potassium [Moles/Vol] 4.8 mmol/L Normal 3.7-5.1 [facility] Comment on above: Order Comment: Speci men Type: BLOOD SPECIMENOrdering Facility: [facility] Address: [address] [place] [address] Performed By: #### 2 4321-2, 2776-08, ####[facility] LABCLIA [id number] [place] [address] [place] Sodium [Moles/Vol] 141 mmol/L Normal 136-144 [facility] Comment on above: Order Comment: Speci men Type: BLOOD SPECIMENOrdering Facility: [facility] Address: [address] [place] [address] Performed By: #### 2 4321-2, 2776-08, ####[facility] LABIA [id number] [place] [address] [place] Urea nitrogen [Mass/Vol] 35 mg/dL High 7-21 [facility] Comment on above: Order Comment: Speci men Type: BLOOD SPECIMENOrdering Facility: [facility] Address: [address] [place] [address] Performed By: #### 2 4321-2, 2776-08, ####[facility] LABIA [id number] [address] [address] [place] CBC W Auto Differential pane l (Bld)on 01-27-2024 Basophils (Bld) [#/Vol] 0.03 10*3/uL Normal <0.11 [facility] Comment on above: Order Comment: Speci men Type: BLOOD SPECIMENOrdering Facility: [facility] Address: [address] [place] [address] Performed By: #### 5 7021-8 ####[facility] LABCLIA [id number] [place] [address] [place] Basophils/100 WBC (Bld) 0.4 % Normal [facility] Comment on above: Order Comment: Speci men Type: BLOOD SPECIMENOrdering Facility: [facility] Address: [address] [place] [address] Performed By: #### 5 7021-8 ####[facility] LABCLIA [id number] [place] [address] [place] Differential cell count method Nom (Bld) Auto Normal [facility] Comment on above: Order Comment: Speci men Type: BLOOD SPECIMENOrdering Facility: [facility] Address: [address] [place] [address] Performed By: #### 5 7021-8 ####[facility] LABCLIA [id number] [place] [address] [place] Eosinophils (Bld) [#/Vol] 0.09 10*3/uL Normal <0.46 [facility] Comment on above: Order Comment: Speci men Type: BLOOD SPECIMENOrdering Facility: [facility] Address: [address] [place] [address] Performed By: #### 5 7021-8 ####[facility] LABCLIA [id number] [address] [place] Eosinophils/100 WBC (Bld) 1.1 % Normal [facility] Comment on above: Order Comment: Speci men Type: BLOOD SPECIMENOrdering Facility: [facility] Address: [address] [place] [address] Performed By: #### 5 7021-8 ####[facility] LABCLIA [id number] [address] [id number] [address] [place] Erythrocyte distribution width (RBC) [Ratio] 14.4 % Normal 11.5-15.0 [facility] Comment on above: Order Comment: Speci men Type: BLOOD SPECIMENOrdering Facility: [facility] Address: [address] [place] [address] Performed By: #### 5 7021-8 ####[facility] LABCLIA [id number] [place] [address] [place] Hematocrit (Bld) [Volume fraction] 44.1 % Normal 36.0-46.0 [facility] Comment on above: Order Comment: Speci men Type: BLOOD SPECIMENOrdering Facility: [facility] Address: [address] [place] [address] Performed By: #### 5 7021-8 ####[facility] LABIA [id number] [place] [address] [place] Hemoglobin (Bld) [Mass/Vol] 14.3 g/dL Normal 11.5-15.5 [facility] Comment on above: Order Comment: Speci men Type: BLOOD SPECIMENOrdering Facility: [facility] Address: [address] [place] [address] Performed By: #### 5 7021-8 ####[facility] LABIA [id number] [place] [address] [place] Immature granulocytes (Bld) [#/Vol] 10*3/uL Normal <0.10 [facility] Comment on above: Order Comment: Speci men Type: BLOOD SPECIMENOrdering Facility: [facility] Address: [address] [place] [address] Performed By: #### 5 7021-8 ####[facility] LABCLIA [id number] [place] [address] [place] Immature granulocytes/100 WBC (Bld) 0.2 % Normal [facility] Comment on above: Order Comment: Speci men Type: BLOOD SPECIMENOrdering Facility: [facility] Address: [address] [place] [address] Performed By: #### 5 7021-8 ####[facility] LABCLIA [id number] [place] [address] [place] Lymphocytes (Bld) [#/Vol] 2.18 10*3/uL Normal 1.00-4.00 [facility] Comment on above: Order Comment: Speci men Type: BLOOD SPECIMENOrdering Facility: [facility] Address: [address] [place] [address] Performed By: #### 5 7021-8 ####[facility] LABCLIA [id number] [place] [address] [place] Lymphocytes/100 WBC (Bld) 26.9 % Normal [facility] Comment on above: Order Comment: Speci men Type: BLOOD SPECIMENOrdering Facility: [facility] Address: [address] [place] [address] Performed By: #### 5 7021-8 ####[facility] LABCLIA [id number] [place] [address] [place] MCH (RBC) [Entitic mass] 28.9 pg Normal 26.0-34.0 [facility] Comment on above: Order Comment: Speci men Type: BLOOD SPECIMENOrdering Facility: [facility] Address: [address] [place] [address] Performed By: #### 5 7021-8 ####[facility] LABCLIA [id number] [place] [address] [place] MCHC (RBC) [Mass/Vol] 32.4 g/dL Normal 30.5-36.0 [facility] Comment on above: Order Comment: Speci men Type: BLOOD SPECIMENOrdering Facility: [facility] Address: [address] [place] [address] Performed By: #### 5 7021-8 ####[facility] LABCLIA [id number] [place] [address] [place] MCV (RBC) [Entitic vol] 89.3 fL Normal 80.0-100.0 C [facility] Comment on above: Order Comment: Speci men Type: BLOOD SPECIMENOrdering Facility: [facility] Address: [address] [place] [address] Performed By: #### 5 7021-8 ####[facility] LABCLIA [id number] [place] [address] [place] Monocytes (Bld) [#/Vol] 0.39 10*3/uL Normal <0.87 [facility] Comment on above: Order Comment: Speci men Type: BLOOD SPECIMENOrdering Facility: [facility] Address: [address] [place] [address] Performed By: #### 5 7021-8 ####[facility] LABCLIA [id number] [place] [address] [place] Monocytes/100 WBC (Bld) 4.8 % Normal C [facility] Comment on above: Order Comment: Speci men Type: BLOOD SPECIMENOrdering Facility: [facility] Address: [address] [place] [address] Performed By: #### 5 7021-8 ####[facility] LABCLIA [id number] [place] [address] [place] Neutrophils (Bld) [#/Vol] 5.40 10*3/uL Normal 1.45-7.50 [facility] Comment on above: Order Comment: Speci men Type: BLOOD SPECIMENOrdering Facility: [facility] Address: [address] [place] [address] Performed By: #### 5 7021-8 ####[facility] LABCLIA [id number] [place] [address] [place] Neutrophils/100 WBC (Bld) 66.6 % Normal [facility] Comment on above: Order Comment: Speci men Type: BLOOD SPECIMENOrdering Facility: [facility] Address: [address] [place] [address] Performed By: #### 5 7021-8 ####[facility] LABCLIA [id number] [place] [address] [place] Nucleated RBC (Bld) [#/Vol] 10*3/uL Normal <0.01 [facility] Comment on above: Order Comment: Speci men Type: BLOOD SPECIMENOrdering Facility: [facility] Address: [address] [place] [address] Performed By: #### 5 7021-8 ####[facility] LABIA [id number] [place] [address] [place] Nucleated RBC/100 WBC (Bld) [Ratio] 0.0 /100 WBC Normal [facility] Comment on above: Order Comment: Speci men Type: BLOOD SPECIMENOrdering Facility: [facility] Address: [address] [place] [address] Performed By: #### 5 7021-8 ####[facility] LABCLIA [id number] [place] [address] [place] Platelet mean volume (Bld) [Entitic vol] 12.5 fL Normal 9.0-12.7 [facility] Comment on above: Order Comment: Speci men Type: BLOOD SPECIMENOrdering Facility: [facility] Address: [address] [place] [address] Performed By: #### 5 7021-8 ####[facility] LABIA [id number] [place] [address] [place] Platelets (Bld) [#/Vol] 175 10*3/uL Normal 150-400 [facility] Comment on above: Order Comment: Speci men Type: BLOOD SPECIMENOrdering Facility: [facility] Address: [address] [place] [address] Performed By: #### 5 7021-8 ####[facility] LABIA [id number] [place] [address] [place] RBC (Bld) [#/Vol] 4.94 10*6/uL Normal 3.90-5.[address] [facility] Comment on above: Order Comment: Speci men Type: BLOOD SPECIMENOrdering Facility: [facility] Address: [address] [place] [address] Performed By: #### 5 7021-8 ####[facility] LABIA [id number] [place] [address] [place] WBC (Bld) [#/Vol] 8.11 10*3/uL Normal 3.70-11.[address] [facility] Comment on above: Order Comment: Speci men Type: BLOOD SPECIMENOrdering Facility: [facility] Address: [address] [place] [address] Performed By: #### 5 7021-8 ####[facility] [id number] [place] [address] [place] ECG COMPLETEon 01-27-2024 ECG COMPLETE Normal [facility] HCG Preg Ur Qlon 01-27-2024 HCG ( test) Ql (U) Negative Normal Negative [facility] Comment on above: Order Comment: Speci men Type: URINE SPECIMENOrdering Facility: [facility] Address: [address] [place] [address] Result Comment: This test is intended to aid in the early detection of . Very dilute urine samples, as indicated by a low specific gravity, may not contain environmental marketing representative levels of hCG. This test detects [...] for . Performed By: #### 2 106-3 ####[facility] LABCLIA [id number] [place] [address] [place] Magnesium SerPl-mCncon 01-26 Magnesium [Mass/Vol] 2.1 mg/dL Normal 1.7-2.3 [facility] Comment on above: Order Comment: Speci men Type: BLOOD SPECIMENOrdering Facility: [facility] Address: [address] [place] [address] Performed By: #### 2 4321-2, 2777-1, 12579-5 ####[facility] LABIA [id number] [address] [place] OF [facility] PT panel Coag (PPP)on 2023 INR Coag (PPP) [Relative time] 1.0 {INR} Normal 0.9-1.3 [facility] Comment on above: Order Comment: Speci men Type: BLOOD SPECIMENOrdering Facility: [facility] Address: [address] [place] [address] Result Comment: Trice min K Antagonist (VKA) [...] 2.5 to 3.5 (target INR of 3).Gracie CHANDLER, et al. Chest 2012, 141:7S-47SBenitez BAUGH et al. [facility] 2017, 70: 252-289 Performed By: #### 3 4528-0 ####[facility] LABCLIA [id number] [address] [address] [place] PT Coag (PPP) [Time] 10.9 s Normal 9.7-13.0 [facility] Comment on above: Order Comment: Speci men Type: BLOOD SPECIMENOrdering Facility: [facility] Address: [address] [place], [place] [address] Performed By: #### 3 4528-0 ####[facility] LABCLIA [id number] [place] [address] [place] Phosphate SerPl-mCncon 01-26 Phosphate [Mass/Vol] 2.9 mg/dL Normal 2.7-4.8 [facility] Comment on above: Order Comment: Speci men Type: BLOOD SPECIMENOrdering Facility: [facility] Address: [address] [place] [address] Performed By: #### 2 4321-2, 2777-1, 66839-1 ####[facility] LABCLIA [id number] [place] [id number] [place] Albumin SerPl-mCncon 024 Albumin [Mass/Vol] 4.6 g/dL Normal 3.9-4.9 [facility] Comment on above: Order Comment: Speci men Type: BLOOD SPECIMENOrdering Facility: [facility] Address: [address] [place] [address] Performed By: #### 1 9123-9, 70803-6, 175-7, 2777-1 ####[facility] LABCLIA [id number] [place] [address] Basic metabolic 2000 panelon 01-20-2024 Anion gap [Moles/Vol] 8 mmol/L Normal 8-15 [facility] Comment on above: Order Comment: Speci men Type: BLOOD SPECIMENOrdering Facility: [facility] Address: [address] [place] [address] Performed By: #### 1 9123-9, 48769-2, 1751-02, 2776-08 ####[facility] LABCLIA [id number] [place] [address] Calcium [Mass/Vol] 9.7 mg/dL Normal 8.5-10.2 [facility] Comment on above: Order Comment: Speci men Type: BLOOD SPECIMENOrdering Facility: [facility] Address: [address] [place] [address] Performed By: #### 1 9123-9, 67871-1, 1751-02, 2776-08 ####[facility] LABCLIA [id number] [place] [address] Chloride [Moles/Vol] 107 mmol/L Normal 98-107 [facility] Comment on above: Order Comment: Speci men Type: BLOOD SPECIMENOrdering Facility: [facility] Address: [address] [place] [address] Performed By: #### 1 9123-9, 11090-0, 1751-02, 2776-08 ####[facility] LABCLIA [id number] [place] [address] CO2 [Moles/Vol] 25 mmol/L Normal 22-30 [facility] Comment on above: Order Comment: Speci men Type: BLOOD SPECIMENOrdering Facility: [facility] Address: [address] [place] [address] Performed By: #### 1 9123-9, 74623-0, 1751-02, 2776-08 ####[facility] LABCLIA [id number] [place] [address] Creatinine [Mass/Vol] 0.96 mg/dL Normal 0.58-0.96 [facility] Comment on above: Order Comment: Speci men Type: BLOOD SPECIMENOrdering Facility: [facility] Address: [address] [place] [address] Performed By: #### 1 9123-9, 41134-9, 1751-02, 2776-08 ####[facility] LABCLIA [id number] [place] [address] Creatinine and Glomerular filtration rate.predicted panel (S/P/Bld) 81 mL/min/1.73m??? Normal >=60 [facility] Comment on above: Order Comment: Peter myles Type: BLOOD SPECIMENOrdering Facility: [facility] Address: [address] [place] [address] Result Comment: Rachel mated Glomerular Filtration Rate [...] actual GFR. Performed By: #### 1 9123-9, 75455-6, 1751-02, 2776- ####[facility] LABCLIA [id number] [place] [address] Glucose [Mass/Vol] 88 mg/dL Normal 74-99 [facility] Comment on above: Order Comment: Peter myles Type: BLOOD SPECIMENOrdering Facility: [facility] Address: [address] [place] [address] Result Comment: [place] Diabetes [...] 2016.39(Suppl 1). Performed By: #### 1 9123-9, 74823-4, 7, 2776-1 ####[facility] LABCLIA [id number] [place] [address] Potassium [Moles/Vol] 3.4 mmol/L Low 3.7-5.1 [facility] Comment on above: Order Comment: Speci men Type: BLOOD SPECIMENOrdering Facility: [facility] Address: [address] [place] [address] Performed By: #### 1 9123-9, 17390-8, 1751-02, 2777- ####[facility] LABCLIA [id number] [place] [address] Sodium [Moles/Vol] 140 mmol/L Normal 136-144 [facility] Comment on above: Order Comment: Speci men Type: BLOOD SPECIMENOrdering Facility: [facility] Address: [address] [place] [address] Performed By: #### 1 9123-9, 32730-8, 1751-02, 277- ####[facility] LABIA [id number] [place] [id number] Urea nitrogen [Mass/Vol] 28 mg/dL High 7-21 [facility] Comment on above: Order Comment: Speci men Type: BLOOD SPECIMENOrdering Facility: [facility] Address: [address] [place] [address] Performed By: #### 1 9123-9, 01283-1, 17508-11, 277- ####[facility] LABCLIA [id number] [place] [address] CBC W Auto Differential pane l (Bld)on 01-20-2024 Basophils (Bld) [#/Vol] 0.04 10*3/uL Normal <0.11 [facility] Comment on above: Order Comment: Speci men Type: BLOOD SPECIMENOrdering Facility: [facility] Address: [address] [place] [address] Performed By: #### 5 7021-8 ####[facility] LABCLIA [id number] [place] [address] Basophils/100 WBC (Bld) 0.5 % Normal C [facility] Comment on above: Order Comment: Speci men Type: BLOOD SPECIMENOrdering Facility: [facility] Address: [address] [place] [address] Performed By: #### 5 7021-8 ####[facility] LABCLIA [id number] [place] [address] Differential cell count method Nom (Bld) Auto Normal [facility] Comment on above: Order Comment: Speci men Type: BLOOD SPECIMENOrdering Facility: [facility] Address: [address] [place] [address] Performed By: #### 5 7021-8 ####[facility] LABCLIA [id number] [place] [address] Eosinophils (Bld) [#/Vol] 0.15 10*3/uL Normal <0.46 [facility] Comment on above: Order Comment: Speci men Type: BLOOD SPECIMENOrdering Facility: [facility] Address: [address] [place] [address] Performed By: #### 5 7021-8 ####[facility] LABCLIA [id number] [place] [address] Eosinophils/100 WBC (Bld) 1.8 % Normal [facility] Comment on above: Order Comment: Speci men Type: BLOOD SPECIMENOrdering Facility: [facility] Address: [address] [place] [address] Performed By: #### 5 7021-8 ####[facility] LABCLIA [id number] [place] [address] Erythrocyte distribution width (RBC) [Ratio] 14.0 % Normal 11.5-15.0 [facility] Comment on above: Order Comment: Speci men Type: BLOOD SPECIMENOrdering Facility: [facility] Address: [address] [place] [address] Performed By: #### 5 7021-8 ####[facility] LABCLIA [id number] [place] [address] Hematocrit (Bld) [Volume fraction] 42.0 % Normal 36.0-46.0 [facility] Comment on above: Order Comment: Speci men Type: BLOOD SPECIMENOrdering Facility: [facility] Address: [address] [place] [address] Performed By: #### 5 7021-8 ####[facility] LABCLIA [id number] [place] [address] Hemoglobin (Bld) [Mass/Vol] 13.8 g/dL Normal 11.5-15.5 [facility] Comment on above: Order Comment: Speci men Type: BLOOD SPECIMENOrdering Facility: [facility] Address: [address] [place] [address] Performed By: #### 5 7021-8 ####[facility] LABCLIA [id number] [place] [address] Immature granulocytes (Bld) [#/Vol] 10*3/uL Normal <0.10 [facility] Comment on above: Order Comment: Speci men Type: BLOOD SPECIMENOrdering Facility: [facility] Address: [address] [place] [address] Performed By: #### 5 7021-8 ####[facility] LABCLIA [id number] [place] [address] Immature granulocytes/100 WBC (Bld) 0.2 % Normal [facility] Comment on above: Order Comment: Speci men Type: BLOOD SPECIMENOrdering Facility: [facility] Address: [address] [place] [address] Performed By: #### 5 7021-8 ####[facility] LABCLIA [id number] [place] [address] Lymphocytes (Bld) [#/Vol] 2.52 10*3/uL Normal 1.00-4.00 [facility] Comment on above: Order Comment: Speci men Type: BLOOD SPECIMENOrdering Facility: [facility] Address: [address] [place] [address] Performed By: #### 5 7021-8 ####[facility] LABCLIA [id number] [place] [address] Lymphocytes/100 WBC (Bld) 30.5 % Normal [facility] Comment on above: Order Comment: Speci men Type: BLOOD SPECIMENOrdering Facility: [facility] Address: [address] [place] [address] Performed By: #### 5 7021-8 ####[facility] LABCLIA [id number] [place] [address] MCH (RBC) [Entitic mass] 28.8 pg Normal 26.0-34.0 [facility] Comment on above: Order Comment: Speci men Type: BLOOD SPECIMENOrdering Facility: [facility] Address: [address] [place] [address] Performed By: #### 5 7021-8 ####[facility] LABCLIA [id number] [place] [address] MCHC (RBC) [Mass/Vol] 32.9 g/dL Normal 30.5-36.0 [facility] Comment on above: Order Comment: Speci men Type: BLOOD SPECIMENOrdering Facility: [facility] Address: [address] [place] [address] Performed By: #### 5 7021-8 ####[facility] LABCLIA [id number] [place] [address] MCV (RBC) [Entitic vol] 87.7 fL Normal 80.0-100.0 C [facility] Comment on above: Order Comment: Speci men Type: BLOOD SPECIMENOrdering Facility: [facility] Address: [address] [place] [address] Performed By: #### 5 7021-8 ####[facility] LABCLIA [id number] [place] [address] Monocytes (Bld) [#/Vol] 0.43 10*3/uL Normal <0.87 [facility] Comment on above: Order Comment: Speci men Type: BLOOD SPECIMENOrdering Facility: [facility] Address: [address] [place] [address] Performed By: #### 5 7021-8 ####[facility] LABCLIA [id number] [place] [address] Monocytes/100 WBC (Bld) 5.2 % Normal [facility] Comment on above: Order Comment: Speci men Type: BLOOD SPECIMENOrdering Facility: [facility] Address: [address] [place] [address] Performed By: #### 5 7021-8 ####[facility] LABCLIA [id number] [place] [address] Neutrophils (Bld) [#/Vol] 5.09 10*3/uL Normal 1.45-7.50 [facility] Comment on above: Order Comment: Speci men Type: BLOOD SPECIMENOrdering Facility: [facility] Address: [address] [place] [address] Performed By: #### 5 7021-8 ####[facility] LABCLIA [id number] [place] [address] Neutrophils/100 WBC (Bld) 61.8 % Normal [facility] Comment on above: Order Comment: Speci men Type: BLOOD SPECIMENOrdering Facility: [facility] Address: [address] [place] [address] Performed By: #### 5 7021-8 ####[facility] LABCLIA [id number] [place] [address] Nucleated RBC (Bld) [#/Vol] 10*3/uL Normal <0.01 [facility] Comment on above: Order Comment: Speci men Type: BLOOD SPECIMENOrdering Facility: [facility] Address: [address] [place] [address] Performed By: #### 5 7021-8 ####[facility] LABCLIA [id number] [place] [address] Nucleated RBC/100 WBC (Bld) [Ratio] 0.0 /100 WBC Normal [facility] Comment on above: Order Comment: Speci men Type: BLOOD SPECIMENOrdering Facility: [facility] Address: [address] [place] [address] Performed By: #### 5 7021-8 ####[facility] LABCLIA [id number] [place] [address] Platelet mean volume (Bld) [Entitic vol] 11.8 fL Normal 9.0-12.7 [facility] Comment on above: Order Comment: Speci men Type: BLOOD SPECIMENOrdering Facility: [facility] Address: [address] [place] [address] Performed By: #### 5 7021-8 ####[facility] LABCLIA [id number] [place] [address] Platelets (Bld) [#/Vol] 181 10*3/uL Normal 150-400 [facility] Comment on above: Order Comment: Speci men Type: BLOOD SPECIMENOrdering Facility: [facility] Address: [address] [place] [address] Performed By: #### 5 7021-8 ####[facility] LABCLIA [id number] [place] [address] RBC (Bld) [#/Vol] 4.79 10*6/uL Normal 3.90-5.[address] [facility] Comment on above: Order Comment: Speci men Type: BLOOD SPECIMENOrdering Facility: [facility] Address: [address] [place] [address] Performed By: #### 5 7021-8 ####[facility] LABCLIA [id number] [place] [address] WBC (Bld) [#/Vol] 8.25 10*3/uL Normal 3.70-11.[address] [facility] Comment on above: Order Comment: Speci men Type: BLOOD SPECIMENOrdering Facility: [facility] Address: [address] [place] [address] Performed By: #### 5 7021-8 ####[facility] LABCLIA [id number] [place] [address] HISTORY PHYSICALon HISTORY PHYSICAL Normal [facility] Magnesium SerPl-ncon 01-19 Magnesium [Mass/Vol] 2.2 mg/dL Normal 1.7-2.3 [facility] Comment on above: Order Comment: Speci men Type: BLOOD SPECIMENOrdering Facility: [facility] Address: [address] [place] [address] Performed By: #### 1 9123-9, 26944-7, 1751-7, 2777-1 ####[facility] LABCLIA [id number] [place] [address] Phosphate SerPl-nc 01-19 Phosphate [Mass/Vol] 4.1 mg/dL Normal 2.7-4.8 [facility] Comment on above: Order Comment: Speci men Type: BLOOD SPECIMENOrdering Facility: [facility] Address: [address] [place] [address] Performed By: #### 1 9123-9, 45374-9, 175-7, 2777-1 ####[facility] LABCLIA [id number] [place] [address] TYPE AND SCREEN,30 DAYon ABO B Normal [facility] Comment on above: Order Comment: Speci men Type: BLOOD SPECIMENOrdering Facility: [facility] Address: [address] [place] [address] Performed By: #### T SCR30 ####[facility] BANKCLIA [id number] [place] [address] [place] HISTORICAL AB SCR STATUS Negative Normal [facility] Comment on above: Order Comment: Speci men Type: BLOOD SPECIMENOrdering Facility: [facility] Address: [address] [place] [address] Performed By: #### T SCR30 ####[facility] BANKCLIA [id number] [address] [address] [place] Rh Nom (Bld) Negative Normal [facility] Comment on above: Order Comment: Speci men Type: BLOOD SPECIMENOrdering Facility: [facility] Address: [address] [place] [address] Performed By: #### T SCR30 ####[facility] BLO[facility] BANKCLIA [id number] [place] [address] [place] Magnesium [facility] 01-15 Magnesium [Mass/Vol] 2.3 mg/dL Normal 1.7-2.3 [facility] Comment on above: Order Comment: Speci men Type: BLOOD SPECIMENOrdering Facility: [facility] Address: [address] [place] [address] Performed By: #### 2 4362-6, 30994-4 ####[facility] LABIA [id number] [place] [address] [address] [place], [place] [address]on 01-16-2024 Albumin [Mass/Vol] 4.7 g/dL Normal 3.9-4.9 [facility] Comment on above: Order Comment: Speci men Type: BLOOD SPECIMENOrdering Facility: [facility] Address: [address] [place] [address] Performed By: #### 2 4362-6, ####[facility] LABCLIA [id number] [place] [address] Anion gap [Moles/Vol] 9 mmol/L Normal 8-15 [facility] Comment on above: Order Comment: Speci men Type: BLOOD SPECIMENOrdering Facility: [facility] Address: [address] [place], [place] [address], [place] [address] Performed By: #### 2 4362-6, ####[facility] LABCLIA [id number] [place] [address] Calcium [Mass/Vol] 10.2 mg/dL Normal 8.5-10.2 [facility] Comment on above: Order Comment: Speci men Type: BLOOD SPECIMENOrdering Facility: [facility] Address: [address] [place], [place] [address] Performed By: #### 2 4362-6, ####[facility] LABCLIA [id number] [place] [address] Chloride [Moles/Vol] 108 mmol/L High 98-107 [facility] Comment on above: Order Comment: Speci men Type: BLOOD SPECIMENOrdering Facility: [facility] Address: [address] [place] [address] Performed By: #### 2 436-6, ####[facility] LABCLIA [id number] [place] [address] CO2 [Moles/Vol] 27 mmol/L Normal 22-30 [facility] Comment on above: Order Comment: Speci men Type: BLOOD SPECIMENOrdering Facility: [facility] Address: [address] [place], [place] [address] Performed By: #### 2 4362-6, ####[facility] LABCLIA [id number] [place] [address] Creatinine [Mass/Vol] 1.06 mg/dL High 0.58-0.96 [facility] Comment on above: Order Comment: Speci men Type: BLOOD SPECIMENOrdering Facility: [facility] Address: [address] [place], [place] [address] Performed By: #### 2 4362-6, ####[facility] LABCLIA [id number] [place] [address] Creatinine and Glomerular filtration rate.predicted panel (S/P/Bld) 72 mL/min/1.73m??? Normal >=60 [facility] Comment on above: Order Comment: Peter myles Type: BLOOD SPECIMENOrdering Facility: [facility] Address: [address] [place] [address] Result Comment: Rachel mated Glomerular Filtration Rate [...] actual GFR. Performed By: #### 2 4362-6, ####[facility] LABCLIA [id number] [place] [address] Glucose [Mass/Vol] 94 mg/dL Normal 74-99 [facility] Comment on above: Order Comment: Peter myles Type: BLOOD SPECIMENOrdering Facility: [facility] Address: [address] [place] [address] Result Comment: [place] Diabetes [...] 2016.39(Suppl 1). Performed By: #### 2 4362-6, ####[facility] LABCLIA [id number] [place] [address] Phosphate [Mass/Vol] 4.5 mg/dL Normal 2.7-4.8 [facility] Comment on above: Order Comment: Speci men Type: BLOOD SPECIMENOrdering Facility: [facility] Address: [address] [place] [address] Performed By: #### 2 4362-6, ####[facility] LABCLIA [id number] [place] [address] Potassium [Moles/Vol] 4.2 mmol/L Normal 3.7-5.1 [facility] Comment on above: Order Comment: Speci men Type: BLOOD SPECIMENOrdering Facility: [facility] Address: [address] [place], [place] [address] Performed By: #### 2 4362-6, ####[facility] LABCLIA [id number] [place] [address] Sodium [Moles/Vol] 144 mmol/L Normal 136-144 [facility] Comment on above: Order Comment: Speci men Type: BLOOD SPECIMENOrdering Facility: [facility] Address: [address] [place], [place] [address] Performed By: #### 2 4362-6, ####[facility] LABCLIA [id number] [place] [address] Urea nitrogen [Mass/Vol] 23 mg/dL High 7-21 [facility] Comment on above: Order Comment: Speci men Type: BLOOD SPECIMENOrdering Facility: [facility] Address: [address] [place], [place] [address] Performed By: #### 2 4362-6, ####[facility] LABIA [id number] [place] [address] Magnesium SerPl-ncon 01-01 Magnesium [Mass/Vol] 2.2 mg/dL Normal 1.7-2.3 [facility] Comment on above: Order Comment: Speci men Type: BLOOD SPECIMENOrdering Facility: [facility] Address: [address] [place], [place] [address] Performed By: #### 2 4362-6, ####[facility] LABCLIA [id number] [place] [address] Renal function 2000 panelon 01-02-2024 Albumin [Mass/Vol] 4.7 g/dL Normal 3.9-4.9 [facility] Comment on above: Order Comment: Speci men Type: BLOOD SPECIMENOrdering Facility: [facility] Address: [address] [place] [address] Performed By: #### 2 4362-6, ####[facility] LABCLIA [id number] [place] [address] Anion gap [Moles/Vol] 9 mmol/L Normal 9-18 [facility] Comment on above: Order Comment: Speci men Type: BLOOD SPECIMENOrdering Facility: [facility] Address: [address] [place] [address] Performed By: #### 2 4362-6, ####[facility] LABIA [id number] [place] [address] Calcium [Mass/Vol] 10.0 mg/dL Normal 8.5-10.2 [facility] Comment on above: Order Comment: Speci men Type: BLOOD SPECIMENOrdering Facility: [facility] Address: [address] [place], [place] [address] Performed By: #### 2 4362-6, ####[facility] LABCLIA [id number] [place] [address] Chloride [Moles/Vol] 104 mmol/L Normal 97-105 [facility] Comment on above: Order Comment: Speci men Type: BLOOD SPECIMENOrdering Facility: [facility] Address: [address] [place], [place] [address] Performed By: #### 2 4362-6, ####[facility] LABCLIA [id number] [place] [address] CO2 [Moles/Vol] 27 mmol/L Normal 22-30 [facility] Comment on above: Order Comment: Speci men Type: BLOOD SPECIMENOrdering Facility: [facility] Address: [address] [place], [place] [address] Performed By: #### 2 4362-6, ####[facility] LABIA [id number] [place] [address] Creatinine [Mass/Vol] 0.98 mg/dL High 0.58-0.96 [facility] Comment on above: Order Comment: Speci men Type: BLOOD SPECIMENOrdering Facility: [facility] Address: [address] [place] [address] Performed By: #### 2 4362-6, ####[facility] LABCLIA [id number] [place] [address] Creatinine and Glomerular filtration rate.predicted panel (S/P/Bld) 79 mL/min/1.73m??? Normal >=60 [facility] Comment on above: Order Comment: Speci men Type: BLOOD SPECIMENOrdering Facility: [facility] Address: [address] [place] [address] Result Comment: Rachel mated Glomerular Filtration Rate [...] actual GFR. Performed By: #### 2 4362-6, ####[facility] LABCLIA [id number] [place] [address] Glucose [Mass/Vol] 103 mg/dL High 74-99 [facility] Comment on above: Order Comment: Speci men Type: BLOOD SPECIMENOrdering Facility: [facility] Address: [address] [place] [address] Result Comment: [place] Diabetes [...] 2016.39(Suppl 1). Performed By: #### 2 4362-6, ####[facility] LABCLIA [id number] [place] [address] Phosphate [Mass/Vol] 3.9 mg/dL Normal 2.7-4.8 [facility] Comment on above: Order Comment: Speci men Type: BLOOD SPECIMENOrdering Facility: [facility] Address: [address] [place] [address] Performed By: #### 2 4362-6, ####[facility] LABIA [id number] [place] [address] Potassium [Moles/Vol] 3.5 mmol/L Low 3.7-5.1 [facility] Comment on above: Order Comment: Speci men Type: BLOOD SPECIMENOrdering Facility: [facility] Address: [address] [place] [address] Performed By: #### 2 4362-6, ####[facility] LABCLIA [id number] [place] [address] Sodium [Moles/Vol] 140 mmol/L Normal 136-144 [facility] Comment on above: Order Comment: Speci men Type: BLOOD SPECIMENOrdering Facility: [facility] Address: [address] [place] [address] Performed By: #### 2 4362-6, ####[facility] LABCLIA [id number] [place] [address] Urea nitrogen [Mass/Vol] 21 mg/dL Normal 7-21 [facility] Comment on above: Order Comment: Speci men Type: BLOOD SPECIMENOrdering Facility: [facility] Address: [address] [place] [address] Performed By: #### 2 4362-6, ####[facility] LABCLIA [id number] [place] [address] Magnesium [facility] 12-22 Magnesium [Mass/Vol] 2.3 mg/dL Normal 1.7-2.3 [facility] Comment on above: Order Comment: Speci men Type: BLOOD SPECIMENOrdering Facility: [facility] Address: [address] [place] [address] Performed By: #### 2 4362-6, ####[facility] LABCLIA [id number] [place] [address] Renal [address] [place], [place] [address] 12-23-2023 Albumin [Mass/Vol] 4.7 g/dL Normal 3.9-4.9 [facility] Comment on above: Order Comment: Speci men Type: BLOOD SPECIMENOrdering Facility: [facility] Address: [address] [place] [address] Performed By: #### 2 4362-6, ####[facility] LABCLIA [id number] [place] [address] Anion gap [Moles/Vol] 9 mmol/L Normal 9-18 [facility] Comment on above: Order Comment: Speci men Type: BLOOD SPECIMENOrdering Facility: [facility] Address: [address] [place] [address] Performed By: #### 2 4362-6, ####[facility] LABCLIA [id number] [place] [address] Calcium [Mass/Vol] 9.8 mg/dL Normal 8.5-10.2 [facility] Comment on above: Order Comment: Speci men Type: BLOOD SPECIMENOrdering Facility: [facility] Address: [address] [place] [address] Performed By: #### 2 4362-6, ####[facility] LABCLIA [id number] [place] [address] Chloride [Moles/Vol] 108 mmol/L High 97-105 [facility] Comment on above: Order Comment: Speci men Type: BLOOD SPECIMENOrdering Facility: [facility] Address: [address] [place] [address] Performed By: #### 2 4362-6, ####[facility] LABIA [id number] [place] [address] CO2 [Moles/Vol] 25 mmol/L Normal 22-30 [facility] Comment on above: Order Comment: Speci men Type: BLOOD SPECIMENOrdering Facility: [facility] Address: [address] [place], [place] [address] Performed By: #### 2 4362-6, ####[facility] LABCLIA [id number] [place] [address] Creatinine [Mass/Vol] 0.90 mg/dL Normal 0.58-0.96 [facility] Comment on above: Order Comment: Speci men Type: BLOOD SPECIMENOrdering Facility: [facility] Address: [address] [place] [address] Performed By: #### 2 4362-6, ####[facility] LABIA [id number] [place] [address] Creatinine and Glomerular filtration rate.predicted panel (S/P/Bld) 87 mL/min/1.73m??? Normal >=60 [facility] Comment on above: Order Comment: Peter myles Type: BLOOD SPECIMENOrdering Facility: [facility] Address: [address] [place] [address] Result Comment: Rachel mated Glomerular Filtration Rate [...] actual GFR. Performed By: #### 2 4362-6, ####[facility] LABIA [id number] [place] [address] Glucose [Mass/Vol] 122 mg/dL High 74-99 [facility] Comment on above: Order Comment: Peter myles Type: BLOOD SPECIMENOrdering Facility: [facility] Address: [address] [place] [address] Result Comment: [place] Diabetes [...] 2016.39(Suppl 1). Performed By: #### 2 4362-6, ####[facility] LABIA [id number] [place] [address] Phosphate [Mass/Vol] 3.6 mg/dL Normal 2.7-4.8 [facility] Comment on above: Order Comment: Peter myles Type: BLOOD SPECIMENOrdering Facility: [facility] Address: [address] [place] [address] Performed By: #### 2 4362-6, ####[facility] LABCLIA [id number] [place] [address] Potassium [Moles/Vol] 4.0 mmol/L Normal 3.7-5.1 [facility] Comment on above: Order Comment: Speci men Type: BLOOD SPECIMENOrdering Facility: [facility] Address: [address] [place], [place] [address] Performed By: #### 2 4362-6, ####[facility] LABCLIA [id number] [place] [address] Sodium [Moles/Vol] 142 mmol/L Normal 136-144 [facility] Comment on above: Order Comment: Speci men Type: BLOOD SPECIMENOrdering Facility: [facility] Address: [address] [place] [address] Performed By: #### 2 4362-6, ####[facility] LABCLIA [id number] [place] [address] Urea nitrogen [Mass/Vol] 18 mg/dL Normal 7-21 [facility] Comment on above: Order Comment: Speci men Type: BLOOD SPECIMENOrdering Facility: [facility] Address: [address] [place], [place] [address] Performed By: #### 2 4362-6, ####[facility] LABCLIA [id number] [place] [address] CNPNon 12-19-2023 CNPN Normal [facility] Magnesium SerPl-mCncon 12-18 Magnesium [Mass/Vol] 2.2 mg/dL Normal 1.7-2.3 [facility] Comment on above: Order Comment: Speci men Type: BLOOD SPECIMENOrdering Facility: [facility] Address: [address] [place], [place] [address] Performed By: #### 1 9123-9, 91930-5 ####[facility] LABCLIA [id number] [place] [address] Renal function 2000 panelon 12-19-2023 Albumin [Mass/Vol] 4.5 g/dL Normal 3.9-4.9 [facility] Comment on above: Order Comment: Speci men Type: BLOOD SPECIMENOrdering Facility: [facility] Address: [address] [place] [address] Performed By: #### 1 9123-9, 49951-1 ####[facility] LABCLIA [id number] [place] [address] Anion gap [Moles/Vol] 8 mmol/L Low 9-18 [facility] Comment on above: Order Comment: Speci men Type: BLOOD SPECIMENOrdering Facility: [facility] Address: [address] [place] [address] Performed By: #### 1 9123-9, 66145-2 ####[facility] LABCLIA [id number] [place] [address] Calcium [Mass/Vol] 9.9 mg/dL Normal 8.5-10.2 [facility] Comment on above: Order Comment: Speci men Type: BLOOD SPECIMENOrdering Facility: [facility] Address: [address] [place] [address] Performed By: #### 1 9123-9, 59146-4 ####[facility] LABCLIA [id number] [place] [address] Chloride [Moles/Vol] 109 mmol/L High 97-105 [facility] Comment on above: Order Comment: Speci men Type: BLOOD SPECIMENOrdering Facility: [facility] Address: [address] [place] [address] Performed By: #### 1 9123-9, 11101-2 ####[facility] LABCLIA [id number] [place] [address] CO2 [Moles/Vol] 24 mmol/L Normal 22-30 [facility] Comment on above: Order Comment: Speci men Type: BLOOD SPECIMENOrdering Facility: [facility] Address: [address] [place] [address] Performed By: #### 1 9123-9, 54727-2 ####[facility] LABCLIA [id number] [place] [address] Creatinine [Mass/Vol] 0.85 mg/dL Normal 0.58-0.96 [facility] Comment on above: Order Comment: Speci men Type: BLOOD SPECIMENOrdering Facility: [facility] Address: [address] [place] [address] Performed By: #### 1 9123-9, 80127-3 ####[facility] LABCLIA [id number] [place] [address] Creatinine and Glomerular filtration rate.predicted panel (S/P/Bld) 93 mL/min/1.73m??? Normal >=60 [facility] Comment on above: Order Comment: Speci men Type: BLOOD SPECIMENOrdering Facility: [facility] Address: [address] [place] [address] Result Comment: Rachel mated Glomerular Filtration Rate [...] actual GFR. Performed By: #### 1 9123-9, 30771-8 ####[facility] LABIA [id number] [place] [address] Glucose [Mass/Vol] 105 mg/dL High 74-99 [facility] Comment on above: Order Comment: Speci men Type: BLOOD SPECIMENOrdering Facility: [facility] Address: [address] [place], [place] [address] Result Comment: [place] Diabetes [...] 2016.39(Suppl 1). Performed By: #### 1 9123-9, 16032-9 ####[facility] LABCLIA [id number] [place] [address] Phosphate [Mass/Vol] 3.5 mg/dL Normal 2.7-4.8 [facility] Comment on above: Order Comment: Speci men Type: BLOOD SPECIMENOrdering Facility: [facility] Address: [address] [place] [address] Performed By: #### 1 9123-9, 14324-9 ####[facility] LABCLIA [id number] [place] [address] Potassium [Moles/Vol] 4.3 mmol/L Normal 3.7-5.1 [facility] Comment on above: Order Comment: Speci men Type: BLOOD SPECIMENOrdering Facility: [facility] Address: [address] [place] [address] Performed By: #### 1 9123-9, 06570-9 ####[facility] LABCLIA [id number] [place] [address] Sodium [Moles/Vol] 141 mmol/L Normal 136-144 [facility] Comment on above: Order Comment: Speci men Type: BLOOD SPECIMENOrdering Facility: [facility] Address: [address] [place] [address] Performed By: #### 1 9123-9, 20622-2 ####[facility] LABCLIA [id number] [place] [address] Urea nitrogen [Mass/Vol] 20 mg/dL Normal 7-21 [facility] Comment on above: Order Comment: Speci men Type: BLOOD SPECIMENOrdering Facility: [facility] Address: [address] [place] [address] Performed By: #### 1 9123-9, 54938-6 ####[facility] LABIA [id number] [place] [address] Magnesium [facility] Magnesium [Mass/Vol] 2.3 mg/dL Normal 1.7-2.3 [facility] Comment on above: Order Comment: Speci men Type: BLOOD SPECIMENOrdering Facility: [facility] Address: [address] [place] [address] Performed By: #### 1 9123-9, 96672-1 ####[facility] LABIA [id number] [place] [address] Renal [address] [place], [place] [address]on 12-16-2023 Albumin [Mass/Vol] 4.4 g/dL Normal 3.9-4.9 [facility] Comment on above: Order Comment: Speci men Type: BLOOD SPECIMENOrdering Facility: [facility] Address: [address] [place] [address] Performed By: #### 1 9123-9, 16983-5 ####[facility] LABIA [id number] [place] [address] Anion gap [Moles/Vol] 8 mmol/L Low 9-18 [facility] Comment on above: Order Comment: Speci men Type: BLOOD SPECIMENOrdering Facility: [facility] Address: [address] [place] [address] Performed By: #### 1 9123-9, 05760-5 ####[facility] LABCLIA [id number] [place] [address] Calcium [Mass/Vol] 10.1 mg/dL Normal 8.5-10.2 [facility] Comment on above: Order Comment: Speci men Type: BLOOD SPECIMENOrdering Facility: [facility] Address: [address] [place] [address] Performed By: #### 1 9123-9, 55021-3 ####[facility] LABCLIA [id number] [place] [address] Chloride [Moles/Vol] 111 mmol/L High 97-105 [facility] Comment on above: Order Comment: Speci men Type: BLOOD SPECIMENOrdering Facility: [facility] Address: [address] [place] [address] Performed By: #### 1 9123-9, 65678-7 ####[facility] LABCLIA [id number] [place] [address] CO2 [Moles/Vol] 26 mmol/L Normal 22-30 [facility] Comment on above: Order Comment: Speci men Type: BLOOD SPECIMENOrdering Facility: [facility] Address: [address] [place] [address] Performed By: #### 1 9123-9, 90632-6 ####[facility] LABCLIA [id number] [place] [address] Creatinine [Mass/Vol] 0.87 mg/dL Normal 0.58-0.96 [facility] Comment on above: Order Comment: Speci men Type: BLOOD SPECIMENOrdering Facility: [facility] Address: [address] [place] [address] Performed By: #### 1 9123-9, 97178-8 ####[facility] LABIA [id number] [place] [address] Creatinine and Glomerular filtration rate.predicted panel (S/P/Bld) 91 mL/min/1.73m??? Normal >=60 [facility] Comment on above: Order Comment: Speci men Type: BLOOD SPECIMENOrdering Facility: [facility] Address: [address] [place] [address] Result Comment: Rachel mated Glomerular Filtration Rate [...] actual GFR. Performed By: #### 1 9123-9, 02747-1 ####[facility] LABCLIA [id number] [place] [address] Glucose [Mass/Vol] 89 mg/dL Normal 74-99 [facility] Comment on above: Order Comment: Peter myles Type: BLOOD SPECIMENOrdering Facility: [facility] Address: [address] [place] [address] Result Comment: [place] Diabetes [...] 2016.39(Suppl 1). Performed By: #### 1 9123-9, 51044-0 ####[facility] LABCLIA [id number] [place] [address] Phosphate [Mass/Vol] 3.1 mg/dL Normal 2.7-4.8 [facility] Comment on above: Order Comment: Peter myles Type: BLOOD SPECIMENOrdering Facility: [facility] Address: [address] [address] Performed By: #### 1 9123-9, 76865-9 ####[facility] LABCLIA [id number] [place] [address] Potassium [Moles/Vol] 3.5 mmol/L Low 3.7-5.1 [facility] Comment on above: Order Comment: Speci men Type: BLOOD SPECIMENOrdering Facility: [facility] Address: [address] [place] [address] Performed By: #### 1 9123-9, 11919-1 ####[facility] LABCLIA [id number] [place] [address] Sodium [Moles/Vol] 145 mmol/L High 136-144 [facility] Comment on above: Order Comment: Speci men Type: BLOOD SPECIMENOrdering Facility: [facility] Address: [address] [place] [address] Performed By: #### 1 9123-9, 76855-1 ####[facility] LABCLIA [id number] [place] [address] Urea nitrogen [Mass/Vol] 21 mg/dL Normal 7-21 [facility] Comment on above: Order Comment: Speci men Type: BLOOD SPECIMENOrdering Facility: [facility] Address: [address] [place] [address] Performed By: #### 1 9123-9, 23797-7 ####[facility] LABCLIA [id number] [place] [address] Magnesium [facility] [place] 12-12 Magnesium [Mass/Vol] 2.3 mg/dL Normal 1.7-2.3 [facility] Comment on above: Order Comment: Speci men Type: BLOOD SPECIMENOrdering Facility: [facility] Address: [address] [place] [address] Performed By: #### 2 4362-6, 78904-4 ####[facility] LABCLIA [id number] [place] [address] Renal function [address] [place] [address] 12-13-2023 Albumin [Mass/Vol] 4.6 g/dL Normal 3.9-4.9 [facility] Comment on above: Order Comment: Speci men Type: BLOOD SPECIMENOrdering Facility: [facility] Address: [address] [place] [address] Performed By: #### 2 4362-6, ####[facility] LABCLIA [id number] [place] [address] Anion gap [Moles/Vol] 9 mmol/L Normal 9-18 [facility] Comment on above: Order Comment: Speci men Type: BLOOD SPECIMENOrdering Facility: [facility] Address: [address] [place], [place] [address] Performed By: #### 2 4362-6, ####[facility] LABCLIA [id number] [place] [address] Calcium [Mass/Vol] 10.0 mg/dL Normal 8.5-10.2 [facility] Comment on above: Order Comment: Speci men Type: BLOOD SPECIMENOrdering Facility: [facility] Address: [address] [place] [address] Performed By: #### 2 4362-6, ####[facility] LABCLIA [id number] [place] [address] Chloride [Moles/Vol] 105 mmol/L Normal 97-105 [facility] Comment on above: Order Comment: Speci men Type: BLOOD SPECIMENOrdering Facility: [facility] Address: [address] [place] [address] Performed By: #### 2 4362-6, ####[facility] LABCLIA [id number] [place] [address] CO2 [Moles/Vol] 29 mmol/L Normal 22-30 [facility] Comment on above: Order Comment: Speci men Type: BLOOD SPECIMENOrdering Facility: [facility] Address: [address] [place] [address] Performed By: #### 2 4362-6, ####[facility] LABCLIA [id number] [place] [address] Creatinine [Mass/Vol] 0.77 mg/dL Normal 0.58-0.96 [facility] Comment on above: Order Comment: Speci men Type: BLOOD SPECIMENOrdering Facility: [facility] Address: [address] [place] [address] Performed By: #### 2 4362-6, ####[facility] LABCLIA [id number] [place] [address] Creatinine and Glomerular filtration rate.predicted panel (S/P/Bld) 105 mL/min/1.73m??? Normal >=60 [facility] Comment on above: Order Comment: Speci men Type: BLOOD SPECIMENOrdering Facility: [facility] Address: [address] [place] [address] Result Comment: Rachel mated Glomerular Filtration Rate [...] actual GFR. Performed By: #### 2 4362-6, ####[facility] LABCLIA [id number] [place] [address] Glucose [Mass/Vol] 97 mg/dL Normal 74-99 [facility] Comment on above: Order Comment: Speci men Type: BLOOD SPECIMENOrdering Facility: [facility] Address: [address] [address] Result Comment: [place] Diabetes [...] 2016.39(Suppl 1). Performed By: #### 2 4362-6, ####[facility] LABCLIA [id number] [place] [address] Phosphate [Mass/Vol] 2.6 mg/dL Low 2.7-4.8 [facility] Comment on above: Order Comment: Speci men Type: BLOOD SPECIMENOrdering Facility: [facility] Address: [address] [place] [address] Performed By: #### 2 4362-6, ####[facility] LABIA [id number] [place] [address] Potassium [Moles/Vol] 2.7 mmol/L Low 3.7-5.1 [facility] Comment on above: Order Comment: Speci men Type: BLOOD SPECIMENOrdering Facility: [facility] Address: [address] [place] [address] Performed By: #### 2 4362-6, ####[facility] LABIA [id number] [place] [address] Sodium [Moles/Vol] 143 mmol/L Normal 136-144 [facility] Comment on above: Order Comment: Speci men Type: BLOOD SPECIMENOrdering Facility: [facility] Address: [address] [place] [address] Performed By: #### 2 4362-6, ####[facility] LABIA [id number] [place] [address] Urea nitrogen [Mass/Vol] 25 mg/dL High 7-21 [facility] Comment on above: Order Comment: Speci men Type: BLOOD SPECIMENOrdering Facility: [facility] Address: [address] [place] [address] Performed By: #### 2 4362-6, 96534-3 ####[facility] LABCLIA [id number] [place] [address] CNCOon 12-11-2023 CNCO Letter Text Normal [facility] CNOVon 12-11-2023 CNOV Normal [facility] Magnesium SerPl-mCncon 12-10 Magnesium [Mass/Vol] 2.2 mg/dL Normal 1.7-2.3 [facility] Comment on above: Order Comment: Speci men Type: BLOOD SPECIMENOrdering Facility: [facility] Address: [address] [place] [address] Performed By: #### 1 9123-9 ####[facility] LABCLIA [id number] [place] [address] [place] Basic metabolic 2000 panelon 12-10-2023 Anion gap [Moles/Vol] 11 mmol/L Normal 9-18 [facility] Comment on above: Order Comment: Speci men Type: BLOOD SPECIMENOrdering Facility: [facility] Address: [address] [place] [address] Performed By: #### 2 4321-2 ####[facility] LABCLIA [id number] [place] [address] [place] Calcium [Mass/Vol] 9.0 mg/dL Normal 8.5-10.2 [facility] Comment on above: Order Comment: Speci men Type: BLOOD SPECIMENOrdering Facility: [facility] Address: [address] [place] [address] Performed By: #### 2 4321-2 ####[facility] LABCLIA [id number] [place] [id number] [place] Chloride [Moles/Vol] 108 mmol/L High 97-105 [facility] Comment on above: Order Comment: Speci men Type: BLOOD SPECIMENOrdering Facility: [facility] Address: [address] [place] [address] Performed By: #### 2 4321-2 ####[facility] LABCLIA [id number] [place] [address] [place] CO2 [Moles/Vol] 30 mmol/L Normal 22-30 [facility] Comment on above: Order Comment: Speci men Type: BLOOD SPECIMENOrdering Facility: [facility] Address: [address] [place] [address] Performed By: #### 2 4321-2 ####[facility] LABIA [id number] [address] [place] Creatinine [Mass/Vol] 0.55 mg/dL Low 0.58-0.96 [facility] Comment on above: Order Comment: Speci men Type: BLOOD SPECIMENOrdering Facility: [facility] Address: [address] [place] [address] Performed By: #### 2 4321-2 ####[facility] LABIA [id number] [address] Creatinine and Glomerular filtration rate.predicted panel (S/P/Bld) 125 mL/min/1.73m??? Normal >=60 [facility] Comment on above: Order Comment: Speci men Type: BLOOD SPECIMENOrdering Facility: [facility] Address: [address] [place] [address] Result Comment: Rachel mated Glomerular Filtration Rate [...] actual GFR. Performed By: #### 2 4321-2 ####[facility] LABCLIA [id number] [place] [address] [place] Glucose [Mass/Vol] 83 mg/dL Normal 74-99 [facility] Comment on above: Order Comment: Speci men Type: BLOOD SPECIMENOrdering Facility: [facility] Address: [address] [place] [address] Result Comment: [place] Diabetes [...] 2016.39(Suppl 1). Performed By: #### 2 4321-2 ####[facility] LABCLIA [id number] [place] [address] [place] Potassium [Moles/Vol] 2.4 mmol/L Critically low 3.7-5.1 [facility] Comment on above: Order Comment: Joselyni men Type: BLOOD SPECIMENOrdering Facility: [facility] Address: [address] [place] [address] Performed By: #### 2 4321-2 ####[facility] LABCLIA [id number] [place] [address] [place] Sodium [Moles/Vol] 149 mmol/L High 136-144 [facility] Comment on above: Order Comment: Speci men Type: BLOOD SPECIMENOrdering Facility: [facility] Address: [address] [place] [address] Performed By: #### 2 4321-2 ####[facility] LABCLIA [id number] [place] [address] [place] Urea nitrogen [Mass/Vol] 9 mg/dL Normal 7-21 [facility] Comment on above: Order Comment: Speci men Type: BLOOD SPECIMENOrdering Facility: [facility] Address: [address] [place] [address] Performed By: #### 2 4321-2 ####[facility] LABCLIA [id number] [place] [address] [place] Gas and Carbon monoxide pane l (BldV)on 12-10-2023 Base excess Calc (BldV) [Moles/Vol] 6 mmol/L High 0-2 [facility] Comment on above: Order Comment: Speci men Type: VENOUS BLOOD SPECIMENOrdering Facility: [facility] Address: [address] [place] [address] Performed By: #### 2 4344-4 ####[facility] LABIA [id number] [place] [address] [place] Body temperature 98.24 [degF] [facility] Comment on above: Order Comment: Speci men Type: VENOUS BLOOD SPECIMENOrdering Facility: [facility] Address: [address] [place] [address] Performed By: #### 2 4344-4 ####[facility] LABIA [id number] [place] [address] [place] Calcium.ionized (Bld) [Mass/Vol] 1.13 mmol/L Normal 1.08-1.30 [facility] Comment on above: Order Comment: Speci men Type: VENOUS BLOOD SPECIMENOrdering Facility: [facility] Address: [address] [place] [address] Performed By: #### 2 4344-4 ####[facility] LABIA [id number] [place] [address] [place] Calcium.ionized adjusted to pH 7.4 (BldA) [Moles/Vol] 1.14 mmol/L Normal 1.08-1.30 [facility] Comment on above: Order Comment: Speci men Type: VENOUS BLOOD SPECIMENOrdering Facility: [facility] Address: [address] [id number] Performed By: #### 2 4344-4 ####[facility] LABCLIA [id number] [address] [address] [place] Carboxyhemoglobin (BldV) [Mass fraction] 3.1 % High 0.0-2.0 [facility] Comment on above: Order Comment: Speci men Type: VENOUS BLOOD SPECIMENOrdering Facility: [facility] Address: [address] [id number] Result Comment: Carb oxyhemoglobin Reference Range for Smokers: 2.0-8.0% Performed By: #### 2 4344-4 ####[facility] LABCLIA [id number] [address] [address] [place] CO2 (BldV) [Partial pressure] 49 mm[Hg] Normal 42-55 [facility] Comment on above: Order Comment: Speci men Type: VENOUS BLOOD SPECIMENOrdering Facility: [facility] Address: [address] [id number] Performed By: #### 2 4344-4 ####[facility] LABCLIA [id number] [address] [address] [place] CO2 adjusted to patient's actual temperature (BldV) [Partial pressure] 48 mmHg Normal 42-55 [facility] Comment on above: Order Comment: Speci men Type: VENOUS BLOOD SPECIMENOrdering Facility: [facility] Address: [address] [id number] Performed By: #### 2 4344-4 ####[facility] LABCLIA [id number] [address] [address] [place] COMMENTS Critical Value: K+ [facility] Comment on above: Order Comment: Speci men Type: VENOUS BLOOD SPECIMENOrdering Facility: [facility] Address: [address] [id number] Performed By: #### 2 4344-4 ####[facility] LABCLIA [id number] [address] [place] DATE/TIME NOTIFIED 894245 [address] PM Normal C [facility] Comment on above: Order Comment: Speci men Type: VENOUS BLOOD SPECIMENOrdering Facility: [facility] Address: [address] [place] [address] Performed By: #### 2 4344-4 ####[facility] LABCLIA [id number] [place] [address] [place] Glucose [Mass/Vol] 91 mg/dL Normal 60-105 [facility] Comment on above: Order Comment: Speci men Type: VENOUS BLOOD SPECIMENOrdering Facility: [facility] Address: [address] [place] [address] Performed By: #### 2 4344-4 ####[facility] LABCLIA [id number] [place] [address] [place] HCO3 (Bld) [Moles/Vol] 31 mmol/L High 24-28 [facility] Comment on above: Order Comment: Speci men Type: VENOUS BLOOD SPECIMENOrdering Facility: [facility] Address: [address] [place] [address] Performed By: #### 2 4344-4 ####[facility] LABCLIA [id number] [place] [address] [place] Hematocrit (Bld) [Volume fraction] 45.6 % Normal 36.0-46.0 [facility] Comment on above: Order Comment: Speci men Type: VENOUS BLOOD SPECIMENOrdering Facility: [facility] Address: [address] [place] [address] Performed By: #### 2 4344-4 ####[facility] LABCLIA [id number] [place] [address] [place] Hemoglobin (Bld) [Mass/Vol] 14.9 g/dL Normal 11.5-15.5 [facility] Comment on above: Order Comment: Speci men Type: VENOUS BLOOD SPECIMENOrdering Facility: [facility] Address: [address] [place] [address] Performed By: #### 2 4344-4 ####[facility] LABIA [id number] [place] [address] [place] Lactate [Moles/Vol] 1.0 mmol/L Normal 0.5-2.[address] [facility] Comment on above: Order Comment: Speci men Type: VENOUS BLOOD SPECIMENOrdering Facility: [facility] Address: [address] [place] [address] Performed By: #### 2 4344-4 ####[facility] [id number] [place] [address] [place] Methemoglobin (Bld) [Mass fraction] 0.3 % Normal 0.0-1.5 [facility] Comment on above: Order Comment: Speci men Type: VENOUS BLOOD SPECIMENOrdering Facility: [facility] Address: [address] [place] [address] Performed By: #### 2 4344-4 ####[facility] [id number] [place] [address] [place] NOTIFIED WHOM Ambrosio Figueroa Normal [facility] Comment on above: Order Comment: Speci men Type: VENOUS BLOOD SPECIMENOrdering Facility: [facility] Address: [address] [place] [address] Performed By: #### 2 4344-4 ####[facility] [id number] [place] [address] [place] O2 THERAPY RA=Room Air Normal [facility] Comment on above: Order Comment: Speci men Type: VENOUS BLOOD SPECIMENOrdering Facility: [facility] Address: [address] [place] [address] Performed By: #### 2 4344-4 ####[facility] LABCLIA [id number] [address] [address] [place] Oxygen (BldV) [Partial pressure] 98 mm[Hg] High 35-45 [facility] Comment on above: Order Comment: Speci men Type: VENOUS BLOOD SPECIMENOrdering Facility: [facility] Address: [address] [place], [place] [address] Performed By: #### 2 4344-4 ####[facility] LABCLIA [id number] [address] [address] [place] Oxygen adjusted to patient's actual temperature (BldV) [Partial pressure] 97 mmHg High 35-45 [facility] Comment on above: Order Comment: Speci men Type: VENOUS BLOOD SPECIMENOrdering Facility: [facility] Address: [address] [place] [address] Performed By: #### 2 4344-4 ####[facility] LABCLIA [id number] [address] [address] [place] Oxygen saturation in Venous blood 98 % High 60-85 [facility] Comment on above: Order Comment: Speci men Type: VENOUS BLOOD SPECIMENOrdering Facility: [facility] Address: [address] [place], [place] [address] Performed By: #### 2 4344-4 ####[facility] LABCLIA [id number] [address] [address] [place] Oxyhemoglobin (BldV) [Mass fraction] 95 % High 60-85 [facility] Comment on above: Order Comment: Speci men Type: VENOUS BLOOD SPECIMENOrdering Facility: [facility] Address: [address] [place], [place] [address] Performed By: #### 2 4344-4 ####[facility] LABCLIA [id number] [address] [address] [place] pH (BldV) 7.42 [pH] Normal 7.32-7.42 [facility] Comment on above: Order Comment: Speci men Type: VENOUS BLOOD SPECIMENOrdering Facility: [facility] Address: [address] [place] [address] Performed By: #### 2 4344-4 ####[facility] LABCLIA [id number] [address] [address] [place] pH adjusted to patient's actual temperature (BldV) 7.42 Normal 7.32-7.42 [facility] Comment on above: Order Comment: Speci men Type: VENOUS BLOOD SPECIMENOrdering Facility: [facility] Address: [address] [place] [address] Performed By: #### 2 4344-4 ####[facility] LABCLIA [id number] [place] [address] [place] Potassium [Moles/Vol] 2.3 mmol/L Critically low 3.5-5.0 [facility] Comment on above: Order Comment: Speci men Type: VENOUS BLOOD SPECIMENOrdering Facility: [facility] Address: [address] [place] [address] Performed By: #### 2 4344-4 ####[facility] LABCLIA [id number] [place] [address] [place] Sodium [Moles/Vol] 147 mmol/L High 136-144 [facility] Comment on above: Order Comment: Speci men Type: VENOUS BLOOD SPECIMENOrdering Facility: [facility] Address: [address] [place] [address] Performed By: #### 2 4344-4 ####[facility]CL[facility] [id number] [place] [address] [place] Base excess Calc (BldV) [Moles/Vol] 6 mmol/L High 0-2 [facility] Comment on above: Order Comment: Speci men Type: VENOUS BLOOD SPECIMENOrdering Facility: [facility] Address: [address] [place] [address] Performed By: #### 2 4344-4 ####[facility]CL[facility] [id number] [place] [address] [place] Body temperature 97.88 [degF] Normal [facility] Comment on above: Order Comment: Speci men Type: VENOUS BLOOD SPECIMENOrdering Facility: [facility] Address: [address] [place] [address] Performed By: #### 2 4344-4 ####[facility] [id number] [place] [address] [place] Calcium.ionized (Bld) [Mass/Vol] 1.16 mmol/L Normal 1.08-1.30 [facility] Comment on above: Order Comment: Speci men Type: VENOUS BLOOD SPECIMENOrdering Facility: [facility] Address: [address] [place] [address] Performed By: #### 2 4344-4 ####[facility] [id number] [place] [address] [place] Calcium.ionized adjusted to pH 7.4 (BldA) [Moles/Vol] 1.18 mmol/L Normal 1.08-1.30 [facility] Comment on above: Order Comment: Speci men Type: VENOUS BLOOD SPECIMENOrdering Facility: [facility] Address: [address] [place] [address] Performed By: #### 2 4344-4 ####[facility] [id number] [place] [address] [place] Carboxyhemoglobin (BldV) [Mass fraction] 3.6 % High 0.0-2.0 [facility] Comment on above: Order Comment: Speci men Type: VENOUS BLOOD SPECIMENOrdering Facility: [facility] Address: [address] [place] [address] Result Comment: Carb oxyhemoglobin Reference Range for Smokers: 2.0-8.0% Performed By: #### 2 4344-4 ####[facility]CL[facility] [id number] [address] [address] [place] CO2 (BldV) [Partial pressure] 47 mm[Hg] Normal 42-55 [facility] Comment on above: Order Comment: Speci men Type: VENOUS BLOOD SPECIMENOrdering Facility: [facility] Address: [address] [place], [place] [address] Performed By: #### 2 4344-4 ####[facility]CL[facility] [id number] [address] [address] [place] CO2 adjusted to patient's actual temperature (BldV) [Partial pressure] 46 mmHg Normal 42-55 [facility] Comment on above: Order Comment: Speci men Type: VENOUS BLOOD SPECIMENOrdering Facility: [facility] Address: [address] [place], [place] [address] Performed By: #### 2 4344-4 ####[facility]CL[facility] [id number] [address] [address] [place] COMMENTS Critical Value: K+ Normal [facility] Comment on above: Order Comment: Speci men Type: VENOUS BLOOD SPECIMENOrdering Facility: [facility] Address: [address] [place], [place] [address] Performed By: #### 2 4344-4 ####[facility] LABCL[facility] [id number] [address] [address] [place] DATE/TIME NOTIFIED 254923 245479 AM Normal [facility] Comment on above: Order Comment: Speci men Type: VENOUS BLOOD SPECIMENOrdering Facility: [facility] Address: [address] [place] [address] Performed By: #### 2 4344-4 ####[facility] LABCLIA [id number] [address] [address] [place] Glucose [Mass/Vol] 85 mg/dL Normal 60-105 [facility] Comment on above: Order Comment: Speci men Type: VENOUS BLOOD SPECIMENOrdering Facility: [facility] Address: [address] [address] Performed By: #### 2 4344-4 ####[facility] [id number] [place] [address] [place] HCO3 (Bld) [Moles/Vol] 31 mmol/L High 24-28 [facility] Comment on above: Order Comment: Speci men Type: VENOUS BLOOD SPECIMENOrdering Facility: [facility] Address: [address] [place] [address] Performed By: #### 2 4344-4 ####[facility] [id number] [place] [address] [place] Hematocrit (Bld) [Volume fraction] 47.9 % High 36.0-46.0 [facility] Comment on above: Order Comment: Speci men Type: VENOUS BLOOD SPECIMENOrdering Facility: [facility] Address: [address] [place] [address] Performed By: #### 2 4344-4 ####[facility] [id number] [place] [address] [place] Hemoglobin (Bld) [Mass/Vol] 15.6 g/dL High 11.5-15.5 [facility] Comment on above: Order Comment: Speci men Type: VENOUS BLOOD SPECIMENOrdering Facility: [facility] Address: [address] [place] [address] Performed By: #### 2 4344-4 ####[facility] [id number] [place] [address] [place] Lactate [Moles/Vol] 1.7 mmol/L Normal 0.5-2.[address] [facility] Comment on above: Order Comment: Speci men Type: VENOUS BLOOD SPECIMENOrdering Facility: [facility] Address: [address] [place] [address] Performed By: #### 2 4344-4 ####[facility] LABCLIA [id number] [place] [id number] [place] Methemoglobin (Bld) [Mass fraction] 0.4 % Normal 0.0-1.5 [facility] Comment on above: Order Comment: Speci men Type: VENOUS BLOOD SPECIMENOrdering Facility: [facility] Address: [address] [place] [address] Performed By: #### 2 4344-4 ####[facility] LABCLIA [id number] [place] [address] [place] NOTIFIED WHOM Tay Meneses ORCharles Figueroa Normal [facility] Comment on above: Order Comment: Speci men Type: VENOUS BLOOD SPECIMENOrdering Facility: [facility] Address: [address] [place] [address] Performed By: #### 2 4344-4 ####[facility] LABCLIA [id number] [place] [address] [place] O2 THERAPY RA=Room Air Normal [facility] Comment on above: Order Comment: Speci men Type: VENOUS BLOOD SPECIMENOrdering Facility: [facility] Address: [address] [place] [address] Result Comment: RA=R oom Air Performed By: #### 2 4344-4 ####[facility]CLIA [id number] [place] [address] [place] Oxygen (BldV) [Partial pressure] 44 mm[Hg] Normal 35-45 [facility] Comment on above: Order Comment: Speci men Type: VENOUS BLOOD SPECIMENOrdering Facility: [facility] Address: [address] [place], [place] [address] Performed By: #### 2 4344-4 ####[facility] LABCLIA [id number] [place] [id number] [place] Oxygen adjusted to patient's actual temperature (BldV) [Partial pressure] 43 mmHg Normal 35-45 [facility] Comment on above: Order Comment: Speci men Type: VENOUS BLOOD SPECIMENOrdering Facility: [facility] Address: [address] [place], [place] [address] Performed By: #### 2 4344-4 ####[facility]CLIA [id number] [address] [address] [place] Oxygen saturation in Venous blood 79 % Normal 60-85 [facility] Comment on above: Order Comment: Speci men Type: VENOUS BLOOD SPECIMENOrdering Facility: [facility] Address: [address] [place] [address] Performed By: #### 2 4344-4 ####[facility]CLIA [id number] [place] [address] [place] Oxyhemoglobin (BldV) [Mass fraction] 76 % Normal 60-85 [facility] Comment on above: Order Comment: Speci men Type: VENOUS BLOOD SPECIMENOrdering Facility: [facility] Address: [address] [place] [address] Performed By: #### 2 4344-4 ####[facility] LABCLIA [id number] [place] [address] [place] pH (BldV) 7.43 [pH] High 7.32-7.42 [facility] Comment on above: Order Comment: Speci men Type: VENOUS BLOOD SPECIMENOrdering Facility: [facility] Address: [address] [place], [place] [address] Performed By: #### 2 4344-4 ####[facility]CLIA [id number] [place] [id number] [place] pH adjusted to patient's actual temperature (BldV) 7.44 High 7.32-7.42 [facility] Comment on above: Order Comment: Speci men Type: VENOUS BLOOD SPECIMENOrdering Facility: [facility] Address: [address] [place], [place] [address] Performed By: #### 2 4344-4 ####[facility]CLIA [id number] [place] [address] [place] Potassium [Moles/Vol] 2.2 mmol/L Critically low 3.5-5.0 [facility] Comment on above: Order Comment: Speci men Type: VENOUS BLOOD SPECIMENOrdering Facility: [facility] Address: [address] [place] [address] Performed By: #### 2 4344-4 ####[facility] LABCLIA [id number] [place] [address] [place] Sodium [Moles/Vol] 147 mmol/L High 136-144 [facility] Comment on above: Order Comment: Speci men Type: VENOUS BLOOD SPECIMENOrdering Facility: [facility] Address: [address] [place] [address] Performed By: #### 2 4344-4 ####[facility]CL[facility] [id number] [place] [address] [place] NURSING PROGon 12-10-2023 NURSING PROG Normal [facility] NURSING PROG Normal [facility] NURSING PROG Normal [facility] NURSING PROG Normal [facility] NURSING PROG Normal [facility] NURSING PROG Normal [facility] NURSING PROG Normal [facility] NURSING PROG Normal [facility] NURSING PROG Normal [facility] Comprehensive metabolic 2000 panelon 12-06-2023 Albumin [Mass/Vol] 4.3 g/dL 3.9 - 4.9 g/dL [facility] ALP [Catalytic activity/Vol] 147 U/L High 34 - 123 U/L [facility] ALT [Catalytic activity/Vol] 12 U/L 7 - 38 U/L [facility] Anion gap [Moles/Vol] 15 mmol/L 9 - 18 mmol/L [facility] AST [Catalytic activity/Vol] 18 U/L 13 - 35 U/L [facility] Bilirubin [Mass/Vol] 0.9 mg/dL 0.2 - 1 .3 mg/dL [facility] Calcium [Mass/Vol] 9.7 mg/dL 8.5 - 10. 2 mg/dL [facility] Chloride [Moles/Vol] 105 mmol/L 97 - 10 5 mmol/L [facility] CO2 [Moles/Vol] 27 mmol/L 22 - 30 mmol/L [facility] Creatinine [Mass/Vol] 0.76 mg/dL 0.58 - 0.96 mg/dL [facility] GFR/1.73 sq M.predicted among non-blacks MDRD (S/P/Bld) [Vol rate/Area] 107 mL/min/{1.73_m2} - PINF [facility] Comment on above: Estimated Glomerular Filtration [...] [Mass/Vol] 77 mg/dL 74 - 99 mg/dL [facility] Comment on above: [place] Diabete s Association (ADA) provides guidance for [...] [place] Diabetes Association. Diabetes Care. 2016.39(Suppl 1). Interpretation and review of laboratory results Abnormal [facility] Potassium [Moles/Vol] 2.4 mmol/L Critically low 3.7 - 5.1 mmol/L [facility] Protein [Mass/Vol] 6.8 g/dL 6.3 - 8.0 g/dL [facility] Sodium [Moles/Vol] 147 mmol/L High 136 - 144 mmol/L [facility] Urea nitrogen [Mass/Vol] 19 mg/dL 7 - 21 mg/dL [facility] Albumin [Mass/Vol] 4.3 g/dL Normal 3.9-4.9 [facility] Comment on above: Order Comment: Speci men Type: BLOOD SPECIMENOrdering Facility: [facility] Address: [address] [place] [address] Performed By: #### 2 4323-8 ####[facility] LABCLIA [id number] [place] [address] [place] ALP [Catalytic activity/Vol] 147 U/L High 34-123 [facility] Comment on above: Order Comment: Speci men Type: BLOOD SPECIMENOrdering Facility: [facility] Address: [address] [place] [address] Performed By: #### 2 4323-8 ####[facility] [id number] [place] [address] [place] ALT [Catalytic activity/Vol] 12 U/L Normal 7-38 [facility] Comment on above: Order Comment: Speci men Type: BLOOD SPECIMENOrdering Facility: [facility] Address: [address] [place] [address] Performed By: #### 2 4323-8 ####[facility]CLIA [id number] [place] [address] [place] Anion gap [Moles/Vol] 15 mmol/L Normal 9-18 [facility] Comment on above: Order Comment: Speci men Type: BLOOD SPECIMENOrdering Facility: [facility] Address: [address] [place] [address] Performed By: #### 2 4323-8 ####[facility] LABCLIA [id number] [place] [address] [place] AST [Catalytic activity/Vol] 18 U/L Normal 13-35 [facility] Comment on above: Order Comment: Speci men Type: BLOOD SPECIMENOrdering Facility: [facility] Address: [address] [place] [address] Performed By: #### 2 4323-8 ####[facility]CLIA [id number] [facility] [place] [address] [place] Bilirubin [Mass/Vol] 0.9 mg/dL Normal 0.2-1.3 [facility] Comment on above: Order Comment: Speci men Type: BLOOD SPECIMENOrdering Facility: [facility] Address: [address] [place] [address] Performed By: #### 2 4323-8 ####[facility] LABCLIA [id number] [place] [address] [place] Calcium [Mass/Vol] 9.7 mg/dL Normal 8.5-10.2 [facility] Comment on above: Order Comment: Speci men Type: BLOOD SPECIMENOrdering Facility: [facility] Address: [address] [place] [address] Performed By: #### 2 4323-8 ####[facility]CLIA [id number] [place] [address] [place] Chloride [Moles/Vol] 105 mmol/L Normal 97-105 [facility] Comment on above: Order Comment: Speci men Type: BLOOD SPECIMENOrdering Facility: [facility] Address: [address] [place] [address] Performed By: #### 2 4323-8 ####[facility]CL[facility] [id number] [place] [address] [place] CO2 [Moles/Vol] 27 mmol/L Normal 22-30 [facility] Comment on above: Order Comment: Speci men Type: BLOOD SPECIMENOrdering Facility: [facility] Address: [address] [place] [address] Performed By: #### 2 4323-8 ####[facility] LABCLIA [id number] [place] [id number] [place] Creatinine [Mass/Vol] 0.76 mg/dL Normal 0.58-0.96 [facility] Comment on above: Order Comment: Peter myles Type: BLOOD SPECIMENOrdering Facility: [facility] Address: [address] [place] [address] Performed By: #### 2 4323-8 ####[facility]CLIA [id number] [place] [address] [place] Creatinine and Glomerular filtration rate.predicted panel (S/P/Bld) 107 mL/min/1.73m??? Normal >=60 [facility] Comment on above: Order Comment: Peter myles Type: BLOOD SPECIMENOrdering Facility: [facility] Address: [address] [place] [address] Result Comment: Rachel mated Glomerular Filtration Rate [...] actual GFR. Performed By: #### 2 4323-8 ####[facility]CLIA [id number] [place] [address] [place] Glucose [Mass/Vol] 77 mg/dL Normal 74-99 [facility] Comment on above: Order Comment: Peter myles Type: BLOOD SPECIMENOrdering Facility: [facility] Address: [address] [place] [address] Result Comment: [place] Diabetes [...] 2016.39(Suppl 1). Performed By: #### 2 4323-8 ####[facility]CLIA [id number] [place] [address] [place] Potassium [Moles/Vol] 2.4 mmol/L Critically low 3.7-5.1 [facility] Comment on above: Order Comment: Speci men Type: BLOOD SPECIMENOrdering Facility: [facility] Address: [address] [place] [address] Performed By: #### 2 4323-8 ####[facility]CLIA [id number] [place] [address] [place] Protein [Mass/Vol] 6.8 g/dL Normal 6.3-8.0 [facility] Comment on above: Order Comment: Speci men Type: BLOOD SPECIMENOrdering Facility: [facility] Address: [address] [place] [address] Performed By: #### 2 4323-8 ####[facility] [id number] [place] [address] [place] Sodium [Moles/Vol] 147 mmol/L High 136-144 [facility] Comment on above: Order Comment: Speci men Type: BLOOD SPECIMENOrdering Facility: [facility] Address: [address] [place] [address] Performed By: #### 2 4323-8 ####[facility]CL[facility] [id number] [place] [address] [place] Urea nitrogen [Mass/Vol] 19 mg/dL Normal 7-21 [facility] Comment on above: Order Comment: Speci men Type: BLOOD SPECIMENOrdering Facility: [facility] Address: [address] [place] [address] Performed By: #### 2 4323-8 ####[facility] LABCLIA [id number] [address] [place] [id number] 12-06-2023 ECG01 Normal [facility] HISTORY PHYSICALon HISTORY PHYSICAL Normal [facility] CNPNon 11-19-2023 CNPN Normal [facility] Basic metabolic 2000 panelon 11-15-2023 Anion gap [Moles/Vol] 12 mmol/L Normal 9-18 [facility] Comment on above: Order Comment: Speci men Type: BLOOD SPECIMENOrdering Facility: [facility] Address: [address] [place] [address] Performed By: #### 2 4321-2 ####[facility] LABCLIA [id number] [place] [address] Calcium [Mass/Vol] 10.1 mg/dL Normal 8.5-10.2 [facility] Comment on above: Order Comment: Speci men Type: BLOOD SPECIMENOrdering Facility: [facility] Address: [address] [place] [address] Performed By: #### 2 4321-2 ####[facility] LABCLIA [id number] [place] [address] Chloride [Moles/Vol] 105 mmol/L Normal 97-105 [facility] Comment on above: Order Comment: Speci men Type: BLOOD SPECIMENOrdering Facility: [facility] Address: [address] [place] [address] Performed By: #### 2 4321-2 ####[facility] LABCLIA [id number] [place] [address] CO2 [Moles/Vol] 29 mmol/L Normal 22-30 [facility] Comment on above: Order Comment: Speci men Type: BLOOD SPECIMENOrdering Facility: [facility] Address: [address] [place] [address] Performed By: #### 2 4321-2 ####[facility] LABCLIA [id number] [place] [address] Creatinine [Mass/Vol] 0.84 mg/dL Normal 0.58-0.96 [facility] Comment on above: Order Comment: Peter myles Type: BLOOD SPECIMENOrdering Facility: [facility] Address: [address] [place] [id number] Performed By: #### 2 4321-2 ####[facility] LABCLIA [id number] [place] [address] Creatinine and Glomerular filtration rate.predicted panel (S/P/Bld) 95 mL/min/1.73m??? Normal >=60 [facility] Comment on above: Order Comment: Peter myles Type: BLOOD SPECIMENOrdering Facility: [facility] Address: [address] [address] Result Comment: Rachel mated Glomerular Filtration Rate [...] actual GFR. Performed By: #### 2 4321-2 ####[facility] LABCLIA [id number] [place] [address] Glucose [Mass/Vol] 76 mg/dL Normal 74-99 [facility] Comment on above: Order Comment: Peter myles Type: BLOOD SPECIMENOrdering Facility: [facility] Address: [address] [place], [place] [address] Result Comment: [place] Diabetes [...] 2016.39(Suppl 1). Performed By: #### 2 4321-2 ####[facility] LABCLIA [id number] [place] [address] Potassium [Moles/Vol] 2.4 mmol/L Critically low 3.7-5.1 [facility] Comment on above: Order Comment: Speci men Type: BLOOD SPECIMENOrdering Facility: [facility] Address: [address] [place] [address] Performed By: #### 2 4321-2 ####[facility] LABCLIA [id number] [place] [address] Sodium [Moles/Vol] 146 mmol/L High 136-144 [facility] Comment on above: Order Comment: Speci men Type: BLOOD SPECIMENOrdering Facility: [facility] Address: [address] [place] [address] Performed By: #### 2 4321-2 ####[facility] LABCLIA [id number] [place] [address] Urea nitrogen [Mass/Vol] 9 mg/dL Normal 7-21 [facility] Comment on above: Order Comment: Speci men Type: BLOOD SPECIMENOrdering Facility: [facility] Address: [address] [place] [address] Performed By: #### 2 4321-2 ####[facility] LABCLIA [id number] [place] [address] CNPNon 11-15-2023 CNPN Normal [facility] Basic metabolic 2000 panelon 11-14-2023 Anion gap [Moles/Vol] 12 mmol/L 9 - 18 mmol/L [facility] Calcium [Mass/Vol] 9.6 mg/dL 8.5 - 10. 2 mg/dL [facility] Chloride [Moles/Vol] 106 mmol/L High 97 - 10 5 mmol/L [facility] CO2 [Moles/Vol] 29 mmol/L 22 - 30 mmol/L [facility] Creatinine [Mass/Vol] 0.66 mg/dL 0.58 - 0.96 mg/dL [facility] Estimated Glomerular Filtration Rate 120 mL/min/1.73m >=60 mL/min/1.7 3m [facility] Glucose [Mass/Vol] 97 mg/dL 74 - 99 mg/dL [facility] Potassium [Moles/Vol] 2.3 mmol/L Critically low 3.7 - 5.1 mmol/L [facility] Sodium [Moles/Vol] 147 mmol/L High 136 - 144 mmol/L [facility] Urea nitrogen [Mass/Vol] 7 mg/dL 7 - 21 mg/dL [facility] Anion gap [Moles/Vol] 12 mmol/L Normal 9-18 [facility] Comment on above: Order Comment: Speci men Type: BLOOD SPECIMENOrdering Facility: [facility] Address: [address] [place] [address] Performed By: #### 2 4321-2 ####[facility] LABCLIA [id number] [place] [address] [place] Calcium [Mass/Vol] 9.6 mg/dL Normal 8.5-10.2 [facility] Comment on above: Order Comment: Speci men Type: BLOOD SPECIMENOrdering Facility: [facility] Address: [address] [place] [address] Performed By: #### 2 4321-2 ####[facility] LABCLIA [id number] [place] [address] [place] Chloride [Moles/Vol] 106 mmol/L High 97-105 [facility] Comment on above: Order Comment: Speci men Type: BLOOD SPECIMENOrdering Facility: [facility] Address: [address] [place] [address] Performed By: #### 2 4321-2 ####[facility] LABCLIA [id number] [place] [address] [place] CO2 [Moles/Vol] 29 mmol/L Normal 22-30 [facility] Comment on above: Order Comment: Speci men Type: BLOOD SPECIMENOrdering Facility: [facility] Address: [address] [id number] Performed By: #### 2 4321-2 ####[facility] [id number] [place] [id number] [place] Creatinine [Mass/Vol] 0.66 mg/dL Normal 0.58-0.96 [facility] Comment on above: Order Comment: Speci men Type: BLOOD SPECIMENOrdering Facility: [facility] Address: [address] [place] [address] Performed By: #### 2 4321-2 ####[facility] [id number] [place] [address] [place] Creatinine and Glomerular filtration rate.predicted panel (S/P/Bld) 120 mL/min/1.73m??? Normal >=60 [facility] Comment on above: Order Comment: Speci men Type: BLOOD SPECIMENOrdering Facility: [facility] Address: [address] [place] [address] Result Comment: Rachel mated Glomerular Filtration Rate [...] actual GFR. Performed By: #### 2 4321-2 ####[facility] LABIA [id number] [place] [address] [place] Glucose [Mass/Vol] 97 mg/dL Normal 74-99 [facility] Comment on above: Order Comment: Speci men Type: BLOOD SPECIMENOrdering Facility: [facility] Address: [address] [place] [address] Result Comment: [place] Diabetes [...] 2016.39(Suppl 1). Performed By: #### 2 4321-2 ####[facility] LABCLIA [id number] [place] [address] [place] Potassium [Moles/Vol] 2.3 mmol/L Critically low 3.7-5.1 [facility] Comment on above: Order Comment: Peter myles Type: BLOOD SPECIMENOrdering Facility: [facility] Address: [address] [place] [address] Performed By: #### 2 4321-2 ####[facility] LABIA [id number] [place] [address] [place] Sodium [Moles/Vol] 147 mmol/L High 136-144 [facility] Comment on above: Order Comment: Peter mlyes Type: BLOOD SPECIMENOrdering Facility: [facility] Address: [address] [place] [address] Performed By: #### 2 4321-2 ####[facility] LABIA [id number] [place] [address] [place] Urea nitrogen [Mass/Vol] 7 mg/dL Normal 7-21 [facility] Comment on above: Order Comment: Joselyni shar Type: BLOOD SPECIMENOrdering Facility: [facility] Address: [address] [place] [address] Performed By: #### 2 4321-2 ####[facility] LABIA [id number] [place] [address] [place] CBC W Auto Differential pane l (Bld)on 11-14-2023 Basophils (Bld) [#/Vol] 0.04 10*3/uL <0.11 k/uL [facility] Basophils/100 WBC (Bld) 0.6 % C [facility] Differential cell count method Nom (Bld) Auto [facility] Eosinophils (Bld) [#/Vol] 0.10 10*3/uL <0.46 k/uL [facility] Eosinophils/100 WBC (Bld) 1.4 % [facility] Erythrocyte distribution width (RBC) [Ratio] 14.7 % 11.5 - 15.0 % [facility] Hematocrit (Bld) [Volume fraction] 43.9 % 36.0 - 46.0 % [facility] Hemoglobin (Bld) [Mass/Vol] 14.7 g/dL 11.5 - 15.5 g/dL [facility] Immature granulocytes (Bld) [#/Vol] <0.10 k/uL [facility] Immature granulocytes/100 WBC (Bld) 0.1 % [facility] Lymphocytes (Bld) [#/Vol] 1.93 10*3/uL 1.00 - 4.00 k/uL [facility] Lymphocytes/100 WBC (Bld) 27.7 % [facility] MCH (RBC) [Entitic mass] 28.5 pg 26.0 - 34.0 pg [facility] MCHC (RBC) [Mass/Vol] 33.5 g/dL 30.5 - 36.0 g/dL [facility] MCV (RBC) [Entitic vol] 85.2 fL 80.0 - 100.0 fL [facility] Monocytes (Bld) [#/Vol] 0.49 10*3/uL <0.87 k/uL [facility] Monocytes/100 WBC (Bld) 7.0 % C [facility] Neutrophils (Bld) [#/Vol] 4.40 10*3/uL 1.45 - 7.50 k/uL [facility] Neutrophils/100 WBC (Bld) 63.2 % [facility] Nucleated RBC (Bld) [#/Vol] <0.01 k/uL [facility] Nucleated RBC/100 WBC (Bld) [Ratio] 0.0 /100 WBC [facility] Platelet mean volume (Bld) [Entitic vol] 11.3 fL 9.0 - 12.7 fL [facility] Platelets (Bld) [#/Vol] 204 10*3/uL 150 - 400 k/uL [facility] RBC (Bld) [#/Vol] 5.15 10*6/uL 3.90 - 5.20 m/uL [facility] WBC (Bld) [#/Vol] 6.97 10*3/uL 3.70 - 11.00 k/uL [facility] Basophils (Bld) [#/Vol] 0.04 10*3/uL Normal <0.11 [facility] Comment on above: Order Comment: Speci men Type: BLOOD SPECIMENOrdering Facility: [facility] Address: [address] [place] [address] Performed By: #### 5 7021-8 ####[facility] LABCLIA [id number] [place] [address] Basophils/100 WBC (Bld) 0.6 % Normal C [facility] Comment on above: Order Comment: Speci men Type: BLOOD SPECIMENOrdering Facility: [facility] Address: [address] [place] [address] Performed By: #### 5 7021-8 ####[facility] LABCLIA [id number] [place] [address] Differential cell count method Nom (Bld) Auto Normal [facility] Comment on above: Order Comment: Speci men Type: BLOOD SPECIMENOrdering Facility: [facility] Address: [address] [place] [address] Performed By: #### 5 7021-8 ####[facility] LABCLIA [id number] [place] [address] Eosinophils (Bld) [#/Vol] 0.10 10*3/uL Normal <0.46 [facility] Comment on above: Order Comment: Speci men Type: BLOOD SPECIMENOrdering Facility: [facility] Address: [address] [place] [address] Performed By: #### 5 7021-8 ####[facility] LABCLIA [id number] [place] [address] Eosinophils/100 WBC (Bld) 1.4 % Normal [facility] Comment on above: Order Comment: Speci men Type: BLOOD SPECIMENOrdering Facility: [facility] Address: [address] [place] [address] Performed By: #### 5 7021-8 ####[facility] LABCLIA [id number] [place] [address] Erythrocyte distribution width (RBC) [Ratio] 14.7 % Normal 11.5-15.0 [facility] Comment on above: Order Comment: Speci men Type: BLOOD SPECIMENOrdering Facility: [facility] Address: [address] [place] [address] Performed By: #### 5 7021-8 ####[facility] LABCLIA [id number] [place] [address] Hematocrit (Bld) [Volume fraction] 43.9 % Normal 36.0-46.0 [facility] Comment on above: Order Comment: Speci men Type: BLOOD SPECIMENOrdering Facility: [facility] Address: [address] [place] [address] Performed By: #### 5 7021-8 ####[facility] LABCLIA [id number] [place] [address] Hemoglobin (Bld) [Mass/Vol] 14.7 g/dL Normal 11.5-15.5 [facility] Comment on above: Order Comment: Speci men Type: BLOOD SPECIMENOrdering Facility: [facility] Address: [address] [place] [address] Performed By: #### 5 7021-8 ####[facility] LABCLIA [id number] [place] [address] Immature granulocytes (Bld) [#/Vol] 10*3/uL Normal <0.10 [facility] Comment on above: Order Comment: Speci men Type: BLOOD SPECIMENOrdering Facility: [facility] Address: [address] [place] [address] Performed By: #### 5 7021-8 ####[facility] LABCLIA [id number] [place] [address] Immature granulocytes/100 WBC (Bld) 0.1 % Normal [facility] Comment on above: Order Comment: Speci men Type: BLOOD SPECIMENOrdering Facility: [facility] Address: [address] [place] [address] Performed By: #### 5 7021-8 ####[facility] LABCLIA [id number] [place] [address] Lymphocytes (Bld) [#/Vol] 1.93 10*3/uL Normal 1.00-4.00 [facility] Comment on above: Order Comment: Speci men Type: BLOOD SPECIMENOrdering Facility: [facility] Address: [address] [place] [address] Performed By: #### 5 7021-8 ####[facility] LABCLIA [id number] [place] [address] Lymphocytes/100 WBC (Bld) 27.7 % Normal [facility] Comment on above: Order Comment: Speci men Type: BLOOD SPECIMENOrdering Facility: [facility] Address: [address] [place] [address] Performed By: #### 5 7021-8 ####[facility] LABCLIA [id number] [place] [address] MCH (RBC) [Entitic mass] 28.5 pg Normal 26.0-34.0 [facility] Comment on above: Order Comment: Speci men Type: BLOOD SPECIMENOrdering Facility: [facility] Address: [address] [place] [address] Performed By: #### 5 7021-8 ####[facility] LABCLIA [id number] [place] [address] MCHC (RBC) [Mass/Vol] 33.5 g/dL Normal 30.5-36.0 [facility] Comment on above: Order Comment: Speci men Type: BLOOD SPECIMENOrdering Facility: [facility] Address: [address] [place] [address] Performed By: #### 5 7021-8 ####[facility] LABCLIA [id number] [place] [address] MCV (RBC) [Entitic vol] 85.2 fL Normal 80.0-100.0 C [facility] Comment on above: Order Comment: Speci men Type: BLOOD SPECIMENOrdering Facility: [facility] Address: [address] [place] [address] Performed By: #### 5 7021-8 ####[facility] LABCLIA [id number] [place] [address] Monocytes (Bld) [#/Vol] 0.49 10*3/uL Normal <0.87 [facility] Comment on above: Order Comment: Speci men Type: BLOOD SPECIMENOrdering Facility: [facility] Address: [address] [place] [address] Performed By: #### 5 7021-8 ####[facility] LABCLIA [id number] [place] [address] Monocytes/100 WBC (Bld) 7.0 % Normal C [facility] Comment on above: Order Comment: Speci men Type: BLOOD SPECIMENOrdering Facility: [facility] Address: [address] [place] [address] Performed By: #### 5 7021-8 ####[facility] LABCLIA [id number] [place] [address] Neutrophils (Bld) [#/Vol] 4.40 10*3/uL Normal 1.45-7.50 [facility] Comment on above: Order Comment: Speci men Type: BLOOD SPECIMENOrdering Facility: [facility] Address: [address] [place] [address] Performed By: #### 5 7021-8 ####[facility] LABCLIA [id number] [place] [address] Neutrophils/100 WBC (Bld) 63.2 % Normal [facility] Comment on above: Order Comment: Speci men Type: BLOOD SPECIMENOrdering Facility: [facility] Address: [address] [place] [address] Performed By: #### 5 7021-8 ####[facility] LABCLIA [id number] [place] [address] Nucleated RBC (Bld) [#/Vol] 10*3/uL Normal <0.01 [facility] Comment on above: Order Comment: Speci men Type: BLOOD SPECIMENOrdering Facility: [facility] Address: [address] [place] [address] Performed By: #### 5 7021-8 ####[facility] LABCLIA [id number] [place] [address] Nucleated RBC/100 WBC (Bld) [Ratio] 0.0 /100 WBC Normal [facility] Comment on above: Order Comment: Speci men Type: BLOOD SPECIMENOrdering Facility: [facility] Address: [address] [place] [address] Performed By: #### 5 7021-8 ####[facility] LABCLIA [id number] [place] [address] Platelet mean volume (Bld) [Entitic vol] 11.3 fL Normal 9.0-12.7 [facility] Comment on above: Order Comment: Speci men Type: BLOOD SPECIMENOrdering Facility: [facility] Address: [address] [place] [address] Performed By: #### 5 7021-8 ####[facility] LABCLIA [id number] [place] [address] Platelets (Bld) [#/Vol] 204 10*3/uL Normal 150-400 [facility] Comment on above: Order Comment: Speci men Type: BLOOD SPECIMENOrdering Facility: [facility] Address: [address] [place] [address] Performed By: #### 5 7021-8 ####[facility] LABCLIA [id number] [place] [address] RBC (Bld) [#/Vol] 5.15 10*6/uL Normal 3.90-5.[address] [facility] Comment on above: Order Comment: Speci men Type: BLOOD SPECIMENOrdering Facility: [facility] Address: [address] [place] [address] Performed By: #### 5 7021-8 ####[facility] LABCLIA [id number] [place] [address] WBC (Bld) [#/Vol] 6.97 10*3/uL Normal 3.70-11.[address] [facility] Comment on above: Order Comment: Speci men Type: BLOOD SPECIMENOrdering Facility: [facility] Address: [address] [place] [address] Performed By: #### 5 7021-8 ####[facility] LABIA [id number] [place] [address] CNPNon 11-14-2023 CNPN Normal [facility] CON[place]IRM BLOOD TYPEon 024 ABO B Normal [facility] Comment on above: Order Comment: Speci men Type: BLOOD SPECIMENOrdering Facility: [facility] Address: [address] [place] [address] Performed By: #### C ONABO ####[facility] BANKCLIA [id number] [place] [address] [place] Rh Nom (Bld) Negative Normal [facility] Comment on above: Order Comment: Speci men Type: BLOOD SPECIMENOrdering Facility: [facility] Address: [address] [place] [address] Performed By: #### C ONABO ####[facility] BANKCLIA [id number] [place] TYPE AND SCREEN,30 DAY[place] ABO B Normal [facility] Comment on above: Order Comment: Speci men Type: BLOOD SPECIMENOrdering Facility: [facility] Address: [address] [place] [address] Performed By: #### T SCR30 ####[facility] BANKCLIA [id number] [place] [address] [place] HISTORICAL AB SCR STATUS Negative Normal [facility] Comment on above: Order Comment: Speci men Type: BLOOD SPECIMENOrdering Facility: [facility] Address: [address] [place] [address] Performed By: #### T SCR30 ####[facility] BANKCLIA [id number] [address] [place] Rh Nom (Bld) Negative Normal [facility] Comment on above: Order Comment: Speci men Type: BLOOD SPECIMENOrdering Facility: [facility] Address: [address] [place] [address] Performed By: #### T SCR30 ####[facility] BANKCLIA [id number] [place] [address] [place] CNPNon 10-25-2023 CNPN Normal [facility] Aldost SerPl-mCncon 10-23-19 Aldosterone [Mass/Vol] 131.0 ng/dL High 0.0-<35.4 C [facility] Comment on above: Order Comment: Speci men Type: BLOOD SPECIMENOrdering Facility: [facility] Address: [address] [place] [address] Result Comment: The reference interval for serum/plasma [...] 15 ng/dL. Performed By: #### 1 763-2 ####[facility] LABCLIA [id number] [place] [address] [place] Aldosterone [Mass/Vol] 7780.0 ng/dL High 0.0-<35.4 [facility] Comment on above: Order Comment: Peter myles Type: BLOOD SPECIMENOrdering Facility: [facility] Address: [address] [place] [address] Result Comment: The reference interval for serum/plasma [...] 15 ng/dL. Performed By: #### 1 763-2 ####[facility] LABCLIA [id number] [place] [address] [place] Aldosterone [Mass/Vol] 5530.0 ng/dL High 0.0-<35.4 [facility] Comment on above: Order Comment: Peter myles Type: BLOOD SPECIMENOrdering Facility: [facility] Address: [address] [place] [address] Result Comment: The reference interval for serum/plasma [...] 15 ng/dL. Performed By: #### 1 763-2 ####[facility] LABCLIA [id number] [place] [address] [place] Aldosterone [Mass/Vol] 6190.0 ng/dL High 0.0-<35.4 [facility] Comment on above: Order Comment: Peter myles Type: BLOOD SPECIMENOrdering Facility: [facility] Address: [address] [place] [address] Result Comment: The reference interval for serum/plasma [...] 15 ng/dL. Performed By: #### 1 763-2 ####[facility] LABCLIA [id number] [place] [address] [place] Aldosterone [Mass/Vol] 173.0 ng/dL High 0.0-<35.4 C [facility] Comment on above: Order Comment: Peter myles Type: BLOOD SPECIMENOrdering Facility: [facility] Address: [address] [place] [address] Result Comment: The reference interval for serum/plasma [...] 15 ng/dL. Performed By: #### 1 763-2 ####[facility] LABCLIA [id number] [place] [address] [place] Aldosterone [Mass/Vol] 160.0 ng/dL High 0.0-<35.4 C [facility] Comment on above: Order Comment: Peter shar Type: BLOOD SPECIMENOrdering Facility: [facility] Address: [address] [place] [address] Result Comment: The reference interval for serum/plasma [...] 15 ng/dL. Performed By: #### 1 763-2 ####[facility] LABCLIA [id number] [place] [address] [place] Aldosterone [Mass/Vol] 166.0 ng/dL High 0.0-<35.4 C [facility] Comment on above: Order Comment: Speci men Type: BLOOD SPECIMENOrdering Facility: [facility] Address: [address] [place] [address] Result Comment: The reference interval for serum/plasma [...] 15 ng/dL. Performed By: #### 1 763-2 ####[facility] LABCLIA [id number] [place] [address] [place] BRIEF OP NOTon 10-23-2023 BRIEF OP NOT Normal [facility] Cortis SerPl-mCncon 10-23-19 24 Cortisol [Mass/Vol] 17.4 ug/dL Normal 4.8-19.[address] [facility] Comment on above: Order Comment: Speci men Type: BLOOD SPECIMENOrdering Facility: [facility] Address: [address] [place] [address] Result Comment: Prov ided reference range is from 6-10 AM sample collection time.Cortisol Reference Range: 6-10 AM = 4.8-19.5 ug/dL, 4-8 PM = 2.5-11.9 ug/dL Performed By: #### 2 143-6 ####[facility] LABCLIA [id number] [place] [address] [place] Cortisol [Mass/Vol] 197.4 ug/dL High 4.8-19.5 [facility] Comment on above: Order Comment: Speci men Type: BLOOD SPECIMENOrdering Facility: [facility] Address: [address] [place] [address] Result Comment: Prov ided reference range is from 6-10 AM sample collection time.Cortisol Reference Range: 6-10 AM = 4.8-19.5 ug/dL, 4-8 PM = 2.5-11.9 ug/dL Performed By: #### 2 143-6 ####[facility] LABCLIA [id number] [place] [address] [place] Cortisol [Mass/Vol] 149.2 ug/dL High 4.8-19.5 [facility] Comment on above: Order Comment: Speci men Type: BLOOD SPECIMENOrdering Facility: [facility] Address: [address] [place] [address] Result Comment: Prov ided reference range is from 6-10 AM sample collection time.Cortisol Reference Range: 6-10 AM = 4.8-19.5 ug/dL, 4-8 PM = 2.5-11.9 ug/dL Performed By: #### 2 143-6 ####[facility] LABCLIA [id number] [place] [address] [place] Cortisol [Mass/Vol] 163.9 ug/dL High 4.8-19.5 [facility] Comment on above: Order Comment: Speci men Type: BLOOD SPECIMENOrdering Facility: [facility] Address: [address] [place] [address] Result Comment: Prov ided reference range is from 6-10 AM sample collection time.Cortisol Reference Range: 6-10 AM = 4.8-19.5 ug/dL, 4-8 PM = 2.5-11.9 ug/dL Performed By: #### 2 143-6 ####[facility] LABCLIA [id number] [place] [address] [place] Cortisol [Mass/Vol] 152.5 ug/dL High 4.8-19.5 [facility] Comment on above: Order Comment: Speci men Type: BLOOD SPECIMENOrdering Facility: [facility] Address: [address] [place] [address] Result Comment: Prov ided reference range is from 6-10 AM sample collection time.Cortisol Reference Range: 6-10 AM = 4.8-19.5 ug/dL, 4-8 PM = 2.5-11.9 ug/dL Performed By: #### 2 143-6 ####[facility] LABCLIA [id number] [place] [address] [place] Cortisol [Mass/Vol] 150.7 ug/dL High 4.8-19.5 [facility] Comment on above: Order Comment: Speci men Type: BLOOD SPECIMENOrdering Facility: [facility] Address: [address] [place] [address] Result Comment: Prov ided reference range is from 6-10 AM sample collection time.Cortisol Reference Range: 6-10 AM = 4.8-19.5 ug/dL, 4-8 PM = 2.5-11.9 ug/dL Performed By: #### 2 143-6 ####[facility] LABCLIA [id number] [place] [address] [place] Cortisol [Mass/Vol] 158.4 ug/dL High 4.8-19.5 [facility] Comment on above: Order Comment: Speci men Type: BLOOD SPECIMENOrdering Facility: [facility] Address: [address] [place] [address] Result Comment: Prov ided reference range is from 6-10 AM sample collection time.Cortisol Reference Range: 6-10 AM = 4.8-19.5 ug/dL, 4-8 PM = 2.5-11.9 ug/dL Performed By: #### 2 143-6 ####[facility] LABCLIA [id number] [facility] [id number] [address] [place] HISTORY PHYSICALon HISTORY PHYSICAL Normal [facility] IR VENOUS SAMPLINGon 024 IR VENOUS SAMPLING [facility] NURSING PROGon 10-23-2023 NURSING PROG Normal [facility] PT EDon 10-23-2023 PT ED Normal [facility] CBC W Auto Differential pane l (Bld)on 10-22-2023 Basophils (Bld) [#/Vol] 0.04 10*3/uL Normal <0.11 [facility] Comment on above: Order Comment: Speci men Type: BLOOD SPECIMENOrdering Facility: [facility] Address: [address] [place] [address] Performed By: #### 5 7021-8 ####[facility] LABCLIA [id number] [place] [address] Basophils/100 WBC (Bld) 0.5 % Normal C [facility] Comment on above: Order Comment: Speci men Type: BLOOD SPECIMENOrdering Facility: [facility] Address: [address] [place] [address] Performed By: #### 5 7021-8 ####[facility] LABCLIA [id number] [place] [address] Differential cell count method Nom (Bld) Auto Normal [facility] Comment on above: Order Comment: Speci men Type: BLOOD SPECIMENOrdering Facility: [facility] Address: [address] [place] [address] Performed By: #### 5 7021-8 ####[facility] LABCLIA [id number] [place] [address] Eosinophils (Bld) [#/Vol] 0.22 10*3/uL Normal <0.46 [facility] Comment on above: Order Comment: Speci men Type: BLOOD SPECIMENOrdering Facility: [facility] Address: [address] [place] [address] Performed By: #### 5 7021-8 ####[facility] LABCLIA [id number] [place] [address] Eosinophils/100 WBC (Bld) 2.9 % Normal [facility] Comment on above: Order Comment: Speci men Type: BLOOD SPECIMENOrdering Facility: [facility] Address: [address] [place] [address] Performed By: #### 5 7021-8 ####[facility] LABCLIA [id number] [place] [address] Erythrocyte distribution width (RBC) [Ratio] 15.1 % High 11.5-15.0 [facility] Comment on above: Order Comment: Speci men Type: BLOOD SPECIMENOrdering Facility: [facility] Address: [address] [place] [address] Performed By: #### 5 7021-8 ####[facility] LABCLIA [id number] [place] [address] Hematocrit (Bld) [Volume fraction] 41.0 % Normal 36.0-46.0 [facility] Comment on above: Order Comment: Speci men Type: BLOOD SPECIMENOrdering Facility: [facility] Address: [address] [place] [address] Performed By: #### 5 7021-8 ####[facility] LABCLIA [id number] [place] [address] Hemoglobin (Bld) [Mass/Vol] 13.4 g/dL Normal 11.5-15.5 [facility] Comment on above: Order Comment: Speci men Type: BLOOD SPECIMENOrdering Facility: [facility] Address: [address] [place] [address] Performed By: #### 5 7021-8 ####[facility] LABCLIA [id number] [place] [address] Immature granulocytes (Bld) [#/Vol] 10*3/uL Normal <0.10 [facility] Comment on above: Order Comment: Speci men Type: BLOOD SPECIMENOrdering Facility: [facility] Address: [address] [place] [address] Performed By: #### 5 7021-8 ####[facility] LABCLIA [id number] [place] [address] Immature granulocytes/100 WBC (Bld) 0.3 % Normal [facility] Comment on above: Order Comment: Speci men Type: BLOOD SPECIMENOrdering Facility: [facility] Address: [address] [place] [address] Performed By: #### 5 7021-8 ####[facility] LABCLIA [id number] [place] [address] Lymphocytes (Bld) [#/Vol] 2.51 10*3/uL Normal 1.00-4.00 [facility] Comment on above: Order Comment: Speci men Type: BLOOD SPECIMENOrdering Facility: [facility] Address: [address] [place] [address] Performed By: #### 5 7021-8 ####[facility] LABCLIA [id number] [place] [address] Lymphocytes/100 WBC (Bld) 33.2 % Normal [facility] Comment on above: Order Comment: Speci men Type: BLOOD SPECIMENOrdering Facility: [facility] Address: [address] [place] [address] Performed By: #### 5 7021-8 ####[facility] LABCLIA [id number] [place] [address] MCH (RBC) [Entitic mass] 28.9 pg Normal 26.0-34.0 [facility] Comment on above: Order Comment: Speci men Type: BLOOD SPECIMENOrdering Facility: [facility] Address: [address] [place] [address] Performed By: #### 5 7021-8 ####[facility] LABCLIA [id number] [place] [address] MCHC (RBC) [Mass/Vol] 32.7 g/dL Normal 30.5-36.0 [facility] Comment on above: Order Comment: Speci men Type: BLOOD SPECIMENOrdering Facility: [facility] Address: [address] [place] [address] Performed By: #### 5 7021-8 ####[facility] LABCLIA [id number] [place] [address] MCV (RBC) [Entitic vol] 88.4 fL Normal 80.0-100.0 C [facility] Comment on above: Order Comment: Speci men Type: BLOOD SPECIMENOrdering Facility: [facility] Address: [address] [place] [address] Performed By: #### 5 7021-8 ####[facility] LABCLIA [id number] [place] [address] Monocytes (Bld) [#/Vol] 0.51 10*3/uL Normal <0.87 [facility] Comment on above: Order Comment: Speci men Type: BLOOD SPECIMENOrdering Facility: [facility] Address: [address] [place] [address] Performed By: #### 5 7021-8 ####[facility] LABCLIA [id number] [place] [address] Monocytes/100 WBC (Bld) 6.7 % Normal C [facility] Comment on above: Order Comment: Speci men Type: BLOOD SPECIMENOrdering Facility: [facility] Address: [address] [place] [address] Performed By: #### 5 7021-8 ####[facility] LABCLIA [id number] [place] [address] Neutrophils (Bld) [#/Vol] 4.26 10*3/uL Normal 1.45-7.50 [facility] Comment on above: Order Comment: Speci men Type: BLOOD SPECIMENOrdering Facility: [facility] Address: [address] [place] [address] Performed By: #### 5 7021-8 ####[facility] LABCLIA [id number] [place] [address] Neutrophils/100 WBC (Bld) 56.4 % Normal [facility] Comment on above: Order Comment: Speci men Type: BLOOD SPECIMENOrdering Facility: [facility] Address: [address] [place] [address] Performed By: #### 5 7021-8 ####[facility] LABCLIA [id number] [place] [address] Nucleated RBC (Bld) [#/Vol] 10*3/uL Normal <0.01 [facility] Comment on above: Order Comment: Speci men Type: BLOOD SPECIMENOrdering Facility: [facility] Address: [address] [place] [address] Performed By: #### 5 7021-8 ####[facility] LABCLIA [id number] [place] [address] Nucleated RBC/100 WBC (Bld) [Ratio] 0.0 /100 WBC Normal [facility] Comment on above: Order Comment: Speci men Type: BLOOD SPECIMENOrdering Facility: [facility] Address: [address] [place] [address] Performed By: #### 5 7021-8 ####[facility] LABCLIA [id number] [place] [address] Platelet mean volume (Bld) [Entitic vol] 11.5 fL Normal 9.0-12.7 [facility] Comment on above: Order Comment: Speci men Type: BLOOD SPECIMENOrdering Facility: [facility] Address: [address] [place] [address] Performed By: #### 5 7021-8 ####[facility] LABCLIA [id number] [place] [address] Platelets (Bld) [#/Vol] 198 10*3/uL Normal 150-400 [facility] Comment on above: Order Comment: Speci men Type: BLOOD SPECIMENOrdering Facility: [facility] Address: [address] [place] [address] Performed By: #### 5 7021-8 ####[facility] LABIA [id number] [place] [address] RBC (Bld) [#/Vol] 4.64 10*6/uL Normal 3.90-5.[address] [facility] Comment on above: Order Comment: Speci men Type: BLOOD SPECIMENOrdering Facility: [facility] Address: [address] [place] [address] Performed By: #### 5 7021-8 ####[facility] LABIA [id number] [place] [address] WBC (Bld) [#/Vol] 7.56 10*3/uL Normal 3.70-11.[address] [facility] Comment on above: Order Comment: Speci men Type: BLOOD SPECIMENOrdering Facility: [facility] Address: [address] [place] [address] Performed By: #### 5 7021-8 ####[facility] LABIA [id number] [place] [address] Comprehensive metabolic 2000 panelon 10-22-2023 Albumin [Mass/Vol] 4.0 g/dL Normal 3.9-4.9 [facility] Comment on above: Order Comment: Speci men Type: BLOOD SPECIMENOrdering Facility: [facility] Address: [address] [place] [address] Performed By: #### 2 4323-8 ####[facility] LABIA [id number] [place] [address] ALP [Catalytic activity/Vol] 139 U/L High 34-123 [facility] Comment on above: Order Comment: Speci men Type: BLOOD SPECIMENOrdering Facility: [facility] Address: [address] [place] [address] Performed By: #### 2 4323-8 ####[facility] LABCLIA [id number] [place] [address] ALT [Catalytic activity/Vol] 10 U/L Normal 7-38 [facility] Comment on above: Order Comment: Speci men Type: BLOOD SPECIMENOrdering Facility: [facility] Address: [address] [place] [address] Performed By: #### 2 4323-8 ####[facility] LABCLIA [id number] [place] [address] Anion gap [Moles/Vol] 3 mmol/L Low 9-18 [facility] Comment on above: Order Comment: Speci men Type: BLOOD SPECIMENOrdering Facility: [facility] Address: [address] [place] [address] Performed By: #### 2 4323-8 ####[facility] LABCLIA [id number] [place] [address] AST [Catalytic activity/Vol] 14 U/L Normal 13-35 [facility] Comment on above: Order Comment: Speci men Type: BLOOD SPECIMENOrdering Facility: [facility] Address: [address] [place] [address] Performed By: #### 2 4323-8 ####[facility] LABCLIA [id number] [place] [address] Bilirubin [Mass/Vol] 0.4 mg/dL Normal 0.2-1.3 [facility] Comment on above: Order Comment: Speci men Type: BLOOD SPECIMENOrdering Facility: [facility] Address: [address] [place], [place] [address] Performed By: #### 2 4323-8 ####[facility] LABCLIA [id number] [place] [address] Calcium [Mass/Vol] 8.9 mg/dL Normal 8.5-10.2 [facility] Comment on above: Order Comment: Speci men Type: BLOOD SPECIMENOrdering Facility: [facility] Address: [address] [place] [address] Performed By: #### 2 4323-8 ####[facility] LABCLIA [id number] [place] [address] Chloride [Moles/Vol] 110 mmol/L High 97-105 [facility] Comment on above: Order Comment: Speci men Type: BLOOD SPECIMENOrdering Facility: [facility] Address: [address] [place] [address] Performed By: #### 2 4323-8 ####[facility] LABCLIA [id number] [place] [address] CO2 [Moles/Vol] 30 mmol/L Normal 22-30 [facility] Comment on above: Order Comment: Speci men Type: BLOOD SPECIMENOrdering Facility: [facility] Address: [address] [place] [address] Performed By: #### 2 4323-8 ####[facility] LABCLIA [id number] [place] [address] Creatinine [Mass/Vol] 0.80 mg/dL Normal 0.58-0.96 [facility] Comment on above: Order Comment: Speci men Type: BLOOD SPECIMENOrdering Facility: [facility] Address: [address] [place] [address] Performed By: #### 2 4323-8 ####[facility] LABCLIA [id number] [place] [address] Creatinine and Glomerular filtration rate.predicted panel (S/P/Bld) 101 mL/min/1.73m??? Normal >=60 [facility] Comment on above: Order Comment: Speci men Type: BLOOD SPECIMENOrdering Facility: [facility] Address: [address] [place] [address] Result Comment: Rachel mated Glomerular Filtration Rate [...] actual GFR. Performed By: #### 2 4323-8 ####[facility] LABCLIA [id number] [place] [address] Glucose [Mass/Vol] 87 mg/dL Normal 74-99 [facility] Comment on above: Order Comment: Speci men Type: BLOOD SPECIMENOrdering Facility: [facility] Address: [address] [place] [address] Result Comment: [place] Diabetes [...] 2016.39(Suppl 1). Performed By: #### 2 4323-8 ####[facility] LABCLIA [id number] [place] [address] Potassium [Moles/Vol] 2.8 mmol/L Low 3.7-5.1 [facility] Comment on above: Order Comment: Speci men Type: BLOOD SPECIMENOrdering Facility: [facility] Address: [address] [place] [address] Performed By: #### 2 4323-8 ####[facility] LABCLIA [id number] [place] [address] Protein [Mass/Vol] 6.2 g/dL Low 6.3-8.0 [facility] Comment on above: Order Comment: Speci men Type: BLOOD SPECIMENOrdering Facility: [facility] Address: [address] [place] [address] Performed By: #### 2 4323-8 ####[facility] LABCLIA [id number] [place] [address] Sodium [Moles/Vol] 143 mmol/L Normal 136-144 [facility] Comment on above: Order Comment: Speci men Type: BLOOD SPECIMENOrdering Facility: [facility] Address: [address] [place] [address] Performed By: #### 2 4323-8 ####[facility] LABCLIA [id number] [place] [address] Urea nitrogen [Mass/Vol] 23 mg/dL High 7-21 [facility] Comment on above: Order Comment: Speci men Type: BLOOD SPECIMENOrdering Facility: [facility] Address: [address] [place] [address] Performed By: #### 2 4323-8 ####[facility] LABCLIA [id number] [place] [address] PT panel Coag (PPP)on 2023 INR Coag (PPP) [Relative time] 1.0 {INR} Normal 0.9-1.3 [facility] Comment on above: Order Comment: Speci men Type: BLOOD SPECIMENOrdering Facility: [facility] Address: [address] [place] [address] Result Comment: Trice min K Antagonist (VKA) [...] al. Chest 2012, 141:7S-47SNishimura RA, et al. [facility] 2017, 70: 252-289 Performed By: #### 3 4528-0 ####[facility] LABCLIA [id number] [place] [address] [place] PT Coag (PPP) [Time] 10.2 s Normal 9.7-13.0 [facility] Comment on above: Order Comment: Speci men Type: BLOOD SPECIMENOrdering Facility: [facility] Address: [address] [place] [address] Performed By: #### 3 4528-0 ####[facility] LABCLIA [id number] [place] [address] [place] NURSING PROGon 10-17-2023 NURSING PROG Normal [facility] POTASSIUM BLDon 10-11-2023 Potassium [Moles/Vol] 2.6 mmol/L Low 3.7-5.1 [facility] Comment on above: Order Comment: Speci men Type: BLOOD SPECIMENOrdering Facility: [facility] Address: [address] [place] [address] Performed By: #### K 1 ####[facility] LABCLIA [id number] [place] [address] ALL POTASSIUMon 09-12-2023 Interpretation and review of laboratory results Abnormal [facility] Potassium [Moles/Vol] 2.7 mmol/L Critically low 3.5 - 5.1 mmol/L [facility] Comment on above: RESULTS CALLED TO [facility] Aldost 24h Ur-mRateon 2023 Aldosterone (24H U) [Mass/Time] 63.6 ug/24hr High 3.0-<28.1 [facility] Comment on above: Order Comment: Speci men Type: URINE SPECIMENOrdering Facility: [facility] Address: [address] [place] [address] Performed By: #### 1 765-7 ####[facility] LABCLIA [id number] [place] [id number] [facility] LABCLIA [id number] [place] [address] CATECHOLAMINES FRACTIONATED, URINE FREEon 09-10-2023 CATECHOLAMINES INTERPRETATION See Note Normal [facility] Comment on above: Order Comment: Speci men Type: TIMED URINE SPECIMENOrdering Facility: [facility] Address: [address] [place] [address] Result Comment: TEST INFORMATION: Catecholamines Fractionated, Urine FreeSmaller increases in catecholamine concentrations (less than twotimes the upper limit) usually are the result of physiologicalstimuli, drugs, or improper specimen collection. Significantelevation of one or more catecholamines (three or more times theupper reference limit) is associated with an increased probabilityof a neuroendocrine tumor.Access complete set of age- and/or gender-specific referenceintervals for this test in the [facility] Test Directory(Adreima).This test was developed and its performance characteristicsdetermined by sfilatino. It has not been cleared orapproved by the [place] Food and Drug Administration. This test wasperformed in a CLIA certified laboratory and is intended forclinical purposes. Performed By: #### U RCAT2 ####[facility] LABORATORIESIA [id number] [place] [address] CREATININE UR, PER 24H 1134 mg/d Normal 700-1600 [facility] Comment on above: Order Comment: Speci men Type: TIMED URINE SPECIMENOrdering Facility: [facility] Address: [address] [place] [address] Result Comment: Perf ormed By: [email or web address] [place] [id number] Director: Adis Casillas MD, PhDCLIA Number: [id number] Performed By: #### U RCAT2 ####[facility] LABORATORIESIA [id number] [place] [address] Performed By: #### U FRCRT ####[facility]IESCLIA [id number] [place] [address] CREATININE UR, PER VOLUME 54 mg/dL Normal [facility] Comment on above: Order Comment: Speci men Type: TIMED URINE SPECIMENOrdering Facility: [facility] Address: [address] [place] [address] Performed By: #### U RCAT2 ####[facility] [id number] [place] [address] Performed By: #### U FRCRT ####[facility]CLIA [id number] [place] [address] DOPAMINE, UR 24HR 422 ug/d Normal 71-485 [facility] Comment on above: Order Comment: Speci men Type: TIMED URINE SPECIMENOrdering Facility: [facility] Address: [address] [place] [address] Result Comment: REFE RENCE INTERVAL: Dopamine, Urine - ug/dAccess complete set of age- and/or gender-specific referenceintervals for this test in the [facility] Test Directory([employer]reima). Performed By: #### U RCAT2 ####[facility] [id number] [place] [address] DOPAMINE, UR PER VOL 201 ug/L Normal [facility] Comment on above: Order Comment: Speci men Type: TIMED URINE SPECIMENOrdering Facility: [facility] Address: [address] [place] [address] Performed By: #### U RCAT2 ####[facility] [id number] [place] [address] DOPAMINE, UR RATIO TO PAINTER [employer] DECORATOR APPRENTICE 372 ug/g PAINTER [employer] DECORATOR [employer]PRENTICE High 0-250 [facility] Comment on above: Order Comment: Speci men Type: TIMED URINE SPECIMENOrdering Facility: [facility] Address: [address] [place] [address] Performed By: #### U RCAT2 ####[facility] [id number] [place] [address] EPINEPHRINE, UR 24HR 4 ug/d Normal 1-14 [facility] Comment on above: Order Comment: Speci men Type: TIMED URINE SPECIMENOrdering Facility: [facility] Address: [address] [place] [address] Result Comment: REFE RENCE INTERVAL: Epinephrine, Urine - ug/dAccess complete set of age- and/or gender-specific referenceintervals for this test in the [facility] Test Directory(Adreima). Performed By: #### U RCAT2 ####[facility]IESCLIA [id number] [place] [address] EPINEPHRINE, UR PER VOL 2 ug/L Normal [facility] Comment on above: Order Comment: Speci men Type: TIMED URINE SPECIMENOrdering Facility: [facility] Address: [address] [place] [address] Performed By: #### U RCAT2 ####[facility]IESCLIA [id number] [place] [address] EPINEPHRINE, UR RATIO TO PAINTER AND DECORATOR APPRENTICE 4 ug/g PAINTER AND DECORATOR APPRENTICE Normal 0-20 [facility] Comment on above: Order Comment: Speci men Type: TIMED URINE SPECIMENOrdering Facility: [facility] Address: [address] [place] [address] Performed By: #### U RCAT2 ####[facility] [id number] [place] [address] HOURS COLLECTED 24 hr Normal [facility] Comment on above: Order Comment: Speci men Type: TIMED URINE SPECIMENOrdering Facility: [facility] Address: [address] [place] [address] Result Comment: Per 24h calculations are provided to aid interpretation forcollections with a duration of 24 hours and an average daily urinevolume. For specimens with notable deviations in collection timeor volume, ratios of analytes to a corresponding urine creatinineconcentration may assist in result interpretation. Performed By: #### U RCAT2 ####[facility] [id number] [place] [address] Performed By: #### U FRCRT ####[facility]IESCLIA [id number] [place] [address] NOREPINEPHRINE, UR 24HR 21 ug/d Normal 14-120 [facility] Comment on above: Order Comment: Speci men Type: TIMED URINE SPECIMENOrdering Facility: [facility] Address: [address] [place] [address] Result Comment: REFE RENCE INTERVAL: Norepinephrine, Urine - ug/dAccess complete set of age- and/or gender-specific referenceintervals for this test in the [facility] Test Directory([employer]reima). Performed By: #### U RCAT2 ####[facility]IESCLIA [id number] [place] [address] NOREPINEPHRINE, UR PER VOL 10 ug/L Normal [facility] Comment on above: Order Comment: Speci men Type: TIMED URINE SPECIMENOrdering Facility: [facility] Address: [address] [place] [address] Performed By: #### U RCAT2 ####[facility] [id number] [place] [address] NOREPINEPHRINE, UR RATIO TO PAINTER AND DECORATOR APPRENTICE 19 ug/g PAINTER AND DECORATOR APPRENTICE Normal 0-45 [facility] Comment on above: Order Comment: Speci men Type: TIMED URINE SPECIMENOrdering Facility: [facility] Address: [address] [place] [address] Performed By: #### U RCAT2 ####[facility]IESCLIA [id number] [place] [address] TOTAL VOLUME 2100 mL Normal [facility] Comment on above: Order Comment: Speci men Type: TIMED URINE SPECIMENOrdering Facility: [facility] Address: [address] [place] [address] Performed By: #### U RCAT2 ####[facility]IESCLIA [id number] [place] [address] Performed By: #### U FRCRT ####[facility]IESCLIA [id number] [place] [address] CREATININE BLDon 09-10-2023 Creatinine [Mass/Vol] 0.90 mg/dL Normal 0.58-0.96 [facility] Comment on above: Order Comment: Speci men Type: BLOOD SPECIMENOrdering Facility: [facility] Address: [address] [place] [address] Performed By: #### C RET1 ####[facility] LABCLIA [id number] [place] [address] Creatinine and Glomerular filtration rate.predicted panel (S/P/Bld) 87 mL/min/1.73m??? Normal >=60 [facility] Comment on above: Order Comment: Speci men Type: BLOOD SPECIMENOrdering Facility: [facility] Address: [address] [place] [address] Result Comment: Rachel mated Glomerular Filtration Rate [...] actual GFR. Performed By: #### C RET1 ####[facility] LABCLIA [id number] [place] [address] CREATININE CLEARANCE, UR 24H Diaz 09-10-2023 Creatinine (24H U) [Mass/Time] 1.100 g/24 hr Normal 0.800-1.80 0 [facility] Comment on above: Order Comment: Speci men Type: URINE SPECIMENOrdering Facility: [facility] Address: [address] [place] [address] Performed By: #### L [id number] ####[facility] LABCLIA [id number] [facility] [id number] [id number] [facility] LABCLIA [id number] [place] [address] Creatinine renal clearance (24H U+S/P) [Vol/Time] 65.9 mL/min Low 75.0-115.0 [facility] Comment on above: Order Comment: Speci men Type: URINE SPECIMENOrdering Facility: [facility] Address: [address] [place], [place] [id number] Result Comment: Resu lt corrected for standard body surface area. Performed By: #### L [id number] ####[facility] LABCLIA [id number] [place] [id number] [facility] LABCLIA [id number] [place] [address] PERIOD (HRS) 24 hr Normal [facility] Comment on above: Order Comment: Speci men Type: URINE SPECIMENOrdering Facility: [facility] Address: [address] [place] [address] Performed By: #### L [id number] ####[facility] LABCLIA [id number] [place] [id number] [facility] LABCLIA [id number] [place] [address] Performed By: #### 1 765-7 ####[facility] LABCLIA [id number] [place] [place] [id number] [facility] LABCLIA [id number] [place] [address] Order Comment: Speci men Type: TIMED URINE SPECIMENOrdering Facility: [facility] Address: [address] [place] [address] Performed By: #### U METAN ####[facility] LABCLIA [id number] [place] [id number] [facility] LABCLIA [id number] [place] [address] Specimen volume (24H U) 2.1 L Normal C [facility] Comment on above: Order Comment: Speci men Type: URINE SPECIMENOrdering Facility: [facility] Address: [address] [place], [place] [address] Performed By: #### L [id number] ####[facility] LABCLIA [id number] [place] AV[id number] LABCLIA [id number] [place] [address] Performed By: #### 1 765-7 ####[facility] LABCLIA [id number] [address] LABCLIA [id number] [place] [address] Order Comment: Speci men Type: TIMED URINE SPECIMENOrdering Facility: [facility] Address: [address] [place] [address] Performed By: #### U METAN ####[facility] LABCLIA [id number] [address] LABCLIA [id number] [place] [id number] METANEPHRINES 24H URon 09-10 Metanephrines (24H U) [Mass/Time] 246 ug/24 hr Normal 140-785 [facility] Comment on above: Order Comment: Speci men Type: TIMED URINE SPECIMENOrdering Facility: [facility] Address: [address] [place] [address] Result Comment: Test performed at sfilatino [facility] reference range.Smaller increases in metanephrine and/or normetanephrine [...] reference intervals for this test in the [employer] [facility] Test Directory (Adreima).This test was developed and its performance characteristics determined by the sfilatino. It has not been cleared or approved by the US Food and Drug Administration. This test was performed in a CLIA certified laboratory and is intended for clinical purposes. Performed By: #### U METAN ####[facility] LABCLIA [id number] [address] LABCLIA [id number] [place] [address] NORMETANEPHRINES, UR 141 ug/24 hr Normal 88-444 [facility] Comment on above: Order Comment: Speci men Type: TIMED URINE SPECIMENOrdering Facility: [facility] Address: [address] [place] [address] Performed By: #### U METAN ####[facility] LABCLIA [id number] [address] LABCLIA [id number] [place] [address] URINE FREE CORTISOL BY LC-MS /MSon 09-10-2023 CORTISOL UG/G PAINTER AND DECORATOR APPRENTICE, UR (UFRCRT) 16.94 ug/g PAINTER AND DECORATOR APPRENTICE Normal [facility] Comment on above: Order Comment: Speci men Type: TIMED URINE SPECIMENOrdering Facility: [facility] Address: [address] [place] [address] Result Comment: Refe rence Interval: Cortisol ug/g crtFemalePrepubertal: Less than 25 ug/g crt18 years and older: Less than 24 ug/g crtPregnancy: Less than 59 ug/g crtMalePrepubertal: Less than 25 ug/g crt18 years and older: Less than 32 ug/g braider operator Performed By: #### U FRCRT ####[facility] [id number] [place] [address] FREE CORTISOL UG/DAY, URINE 19.2 ug/d Normal <=45.0 [facility] Comment on above: Order Comment: Speci men Type: TIMED URINE SPECIMENOrdering Facility: [facility] Address: [address] [place] [address] Performed By: #### U FRCRT ####[facility] [id number] [place] [address] FREE CORTISOL UG/L, URINE 9.15 ug/L Normal [facility] Comment on above: Order Comment: Speci men Type: TIMED URINE SPECIMENOrdering Facility: [facility] Address: [address] [place] [address] Performed By: #### U FRCRT ####[facility] [id number] [place] [address] UR MER FREE INTERP See Note Normal [facility] Comment on above: Order Comment: Speci men Type: TIMED URINE SPECIMENOrdering Facility: [facility] Address: [address] [place] [address] Result Comment: INTE RPRETIVE INFORMATION: Cortisol Urine Free by LC-MS/MSAccess complete set of age- and/or gender-specific referenceintervals for this test in the [employer] [facility] Test Directory(Adreima).This test was developed and its performance characteristicsdetermined by sfilatino. It has not been cleared orapproved by the US Food and Drug Administration. This test wasperformed in a CLIA certified laboratory and is intended forclinical purposes.Performed By: sfilatino[address] [place], [place] [address]Eadhmvbmoe Director: Adis Casillas MD, PhDCLIA Number: [id number] Performed By: #### U FRCRT ####[facility] [id number] [place] [address] [facility] CORTIS P DEX SERPL-MCNCo n 09-06-2023 [facility] CORTIS P DEX SERPL-MCNC 0.9 ug/dL [facility] 1.8 ug/dL [facility] Comment on above: After overnight 1 mg dexamethasone, an silvering applicator cortisol of <1.8 ug/dL may indicate an adequate cortisol suppression. This result should be interpreted within the clinical context and other test results. Samra et al. Evidence for the Low Dose Dexamethasone Suppression Test to Screen for Mohit's Syndrome - Recommendations for a Protocol for Biochemistry Laboratories. 1997 Sybil. Clin. Biochem. 34 222-229. Specimen Type: BLOOD SPECIMEN [facility] Address: [address] [place] [address] Original Ordering Provider: VIKKI BALDERRAMA [facility] CHRISTIANANon 09-06-2023 CNPN Normal [facility] Cortis p Dex SerPl-mCncon Cortisol post dose dexamethasone [Mass/Vol] 0.9 ug/dL Normal <1.8 [facility] Comment on above: Order Comment: Peter myles Type: BLOOD SPECIMENOrdering Facility: [facility] Address: [address] [place] [address] Result Comment: Afte r overnight 1 mg dexamethasone, an silvering applicator cortisol of <1.8 ug/dL may indicate an adequate cortisol suppression. This result should be interpreted within the clinical context and other test results.Samra et al. Evidence for the Low Dose Dexamethasone Suppression Test to Screen for [place]'s Syndrome - Recommendations for a Protocol for Biochemistry Laboratories. 1997 Sybil. Clin. Biochem. 34 222-229. Performed By: #### 4 7851-1 ####[facility] LABCLIA [id number] [place] [address] [place] DEXAMETHASONEon 09-06-2023 DEXAMETHASONE 236.1 ng/dL Normal [facility] Comment on above: Order Comment: Peter myles Type: BLOOD SPECIMENOrdering Facility: [facility] Address: [address] [place] [address] Result Comment: INTE RPRETIVE INFORMATION: Dexamethasone, Serum or Plasma by LC-MS/MSAdults baseline: Less than 50 ng/dL8:00 AM draw following 1 mg dexamethasone between 11:00 pm and12:00 am the previous evenin - 295 ng/dL8:00 AM draw following 8 mg dexamethasone (4 x 2 mg doses) vbcwoki17:00 pm and 12:00 am the previous evenin - 2850 ng/dLThis test was developed and its performance characteristicsdetermined by sfilatino. It has not been cleared orapproved by the US Food and Drug Administration. This test wasperformed in a CLIA certified laboratory and is intended forclinical purposes.Performed By: sfilatino[address] [place] [id number] Director: Adis Casillas MD, PhDCLIA Number: [id number] Performed By: #### D EXA ####[facility] [id number] [place] [address] [facility] 09-05-2023 CNPN Normal [facility] CNPNon 09-04-2023 CNPN Normal [facility] US renal doppleron US renal doppler [facility] [place] [address] Ultrasound Report Signed Patient: Heidi Joy MR#: [id number] : 1990 Acct:[id number] Age/Sex: 33 / F ADM Date: 08/30/23 Loc: Room: Type: [facility] Attending Dr: Zara Ralph MD Ordering Provider: Zara Ralph MD Date of Service: 08/30/23 US/US renal doppler: E87.6, E87.3, I10. E27.9 Copies to: Zara Ralph MD Renal artery duplex examination performed using B-mode, color flow and spectral Doppler assessment. (CPT: 99767) INDICATION: Hypertension FINDINGS: Aorta: PSV 94.9 cm/s [...] Efrem Jo MD08/31/2023 3:55 PM Dictation Location: [place] [address] Tech: Hermelinda Alonso Transcribed By: KATHLEEN 08/31/23 155 Dictated By: Efrem Jo MD 08/31/231553 Signed By: 08/31/23 155 Normal [facility] ACTH Plas-mCncon 08-30-2023 Corticotropin (P) [Mass/Vol] 22.2 pg/mL Normal 7.2-63.3 [facility] Comment on above: Order Comment: Speci men Type: BLOOD SPECIMENOrdering Facility: [facility] Address: [address] [place] [address] Result Comment: ACTH Reference Range: 7-10 am: 7.2 - 63.3 pg/mL Performed By: #### 2 141-0 ####[facility] LABCLIA [id number] [address] Aldost SerPl-ncon 08-30-19 Aldosterone [Mass/Vol] 79.8 ng/dL High 0.0-<35.4 [facility] Comment on above: Order Comment: Speci men Type: BLOOD SPECIMENOrdering Facility: [facility] Address: [address] [place] [address] Result Comment: The reference interval for serum/plasma [...] 15 ng/dL. Performed By: #### R ENIND ####[facility] LABCLIA [id number] [address] LABCLIA [id number] [place] [address]#### 1763-2 ####[facility] LABCLIA [id number] [address] [place] [address] [place] Comprehensive metabolic 2000 panelon 08-30-2023 Albumin [Mass/Vol] 4.2 g/dL Normal 3.9-4.9 [facility] Comment on above: Order Comment: Speci men Type: BLOOD SPECIMENOrdering Facility: [facility] Address: [address] [place] [address] Performed By: #### 2 4323-8 ####[facility] LABCLIA [id number] [place] [address] ALP [Catalytic activity/Vol] 127 U/L High 34-123 [facility] Comment on above: Order Comment: Speci men Type: BLOOD SPECIMENOrdering Facility: [facility] Address: [address] [place] [address] Performed By: #### 2 4323-8 ####[facility] LABCLIA [id number] [place] [address] ALT [Catalytic activity/Vol] 16 U/L Normal 7-38 [facility] Comment on above: Order Comment: Speci men Type: BLOOD SPECIMENOrdering Facility: [facility] Address: [address] [place] [address] Performed By: #### 2 4323-8 ####[facility] LABCLIA [id number] [place] [address] Anion gap [Moles/Vol] 10 mmol/L Normal 9-18 [facility] Comment on above: Order Comment: Speci men Type: BLOOD SPECIMENOrdering Facility: [facility] Address: [address] [place] [address] Performed By: #### 2 4323-8 ####[facility] LABCLIA [id number] [place] [address] AST [Catalytic activity/Vol] 14 U/L Normal 13-35 [facility] Comment on above: Order Comment: Speci men Type: BLOOD SPECIMENOrdering Facility: [facility] Address: [address] [place] [address] Performed By: #### 2 4323-8 ####[facility] LABCLIA [id number] [place] [address] Bilirubin [Mass/Vol] 1.2 mg/dL Normal 0.2-1.3 [facility] Comment on above: Order Comment: Speci men Type: BLOOD SPECIMENOrdering Facility: [facility] Address: [address] [place] [address] Performed By: #### 2 4323-8 ####[facility] LABCLIA [id number] [place] [address] Calcium [Mass/Vol] 9.4 mg/dL Normal 8.5-10.2 [facility] Comment on above: Order Comment: Speci men Type: BLOOD SPECIMENOrdering Facility: [facility] Address: [address] [place] [address] Performed By: #### 2 4323-8 ####[facility] LABCLIA [id number] [place] [address] Chloride [Moles/Vol] 109 mmol/L High 97-105 [facility] Comment on above: Order Comment: Speci men Type: BLOOD SPECIMENOrdering Facility: [facility] Address: [address] [place] [address] Performed By: #### 2 4323-8 ####[facility] LABCLIA [id number] [place] [address] CO2 [Moles/Vol] 27 mmol/L Normal 22-30 [facility] Comment on above: Order Comment: Speci men Type: BLOOD SPECIMENOrdering Facility: [facility] Address: [address] [place] [address] Performed By: #### 2 4323-8 ####[facility] LABCLIA [id number] [place] [address] Creatinine [Mass/Vol] 0.66 mg/dL Normal 0.58-0.96 [facility] Comment on above: Order Comment: Peter myles Type: BLOOD SPECIMENOrdering Facility: [facility] Address: [address] [place] [address] Performed By: #### 2 4323-8 ####[facility] LABCLIA [id number] [place] [address] Creatinine and Glomerular filtration rate.predicted panel (S/P/Bld) 120 mL/min/1.73m??? Normal >=60 [facility] Comment on above: Order Comment: Speci men Type: BLOOD SPECIMENOrdering Facility: [facility] Address: [address] [place] [address] Result Comment: Rachel mated Glomerular Filtration Rate [...] actual GFR. Performed By: #### 2 4323-8 ####[facility] LABCLIA [id number] [place] [address] Glucose [Mass/Vol] 91 mg/dL Normal 74-99 [facility] Comment on above: Order Comment: Peter myles Type: BLOOD SPECIMENOrdering Facility: [facility] Address: [address] [place], [place] [address] Result Comment: [place] Diabetes [...] 2016.39(Suppl 1). Performed By: #### 2 4323-8 ####[facility] LABCLIA [id number] [place] [address] Potassium [Moles/Vol] 2.8 mmol/L Low 3.7-5.1 [facility] Comment on above: Order Comment: Speci men Type: BLOOD SPECIMENOrdering Facility: [facility] Address: [address] [place] [address] Performed By: #### 2 4323-8 ####[facility] LABCLIA [id number] [place] [address] Protein [Mass/Vol] 6.7 g/dL Normal 6.3-8.0 [facility] Comment on above: Order Comment: Speci men Type: BLOOD SPECIMENOrdering Facility: [facility] Address: [address] [place] [address] Performed By: #### 2 4323-8 ####[facility] LABCLIA [id number] [place] [address] Sodium [Moles/Vol] 146 mmol/L High 136-144 [facility] Comment on above: Order Comment: Speci men Type: BLOOD SPECIMENOrdering Facility: [facility] Address: [address] [place] [address] Performed By: #### 2 4323-8 ####[facility] LABCLIA [id number] [place] [address] Urea nitrogen [Mass/Vol] 12 mg/dL Normal 7-21 [facility] Comment on above: Order Comment: Speci men Type: BLOOD SPECIMENOrdering Facility: [facility] Address: [address] [place] [address] Performed By: #### 2 4323-8 ####[facility] LABCLIA [id number] [place] [address] Cortis Lam 08-30-19 24 Cortisol [Mass/Vol] 9.5 ug/dL Normal 4.8-19.[address] [facility] Comment on above: Order Comment: Speci men Type: BLOOD SPECIMENOrdering Facility: [facility] Address: [address] [place] [address] Result Comment: Prov ided reference range is from 6-10 AM sample collection time.Cortisol Reference Range: 6-10 AM = 4.8-19.5 ug/dL, 4-8 PM = 2.5-11.9 ug/dL Performed By: #### Jael NAVARRO 2143-01 ####[facility] LABCLIA [id number] [place] [address] [place] DHEA-S BLDon 08-30-2023 DHEA-S [Mass/Vol] 188.1 ug/dL Normal 98.8-340.0 [facility] Comment on above: Order Comment: Speci men Type: BLOOD SPECIMENOrdering Facility: [facility] Address: [address] [place] [address] Result Comment: Refe rence ranges are age and gender specific. For additional information, reference range tables can be found in the laboratory test directory.The normal values are based on the following source: Dehydroepiandrosterone sulfate (DHEA S) [package insert V 17.0 Slovak]. [facility], [place], [place]: March 2013. Performed By: #### Jael NAVARRO, 2143-01 ####[facility] LABCLIA [id number] [place] [address] [place] DIRECT RENIN PLASMAon 2023 DIRECT RENIN <2.1 Low 4.2-52.2 [facility] Comment on above: Order Comment: Speci men Type: BLOOD SPECIMENOrdering Facility: [facility] Address: [address] [place] [address] Result Comment: A ra yue of aldosterone [...] 2.5-45.1 pg/mL Performed By: #### R ENIND ####[facility] LABCLIA [id number] [address] LABCLIA [id number] [place] [address]#### 1763-2 ####[facility] LABCLIA [id number] [place] [address] [place] PATIENT UPRIGHT OR SUPINE Upright Normal [facility] Comment on above: Order Comment: Speci men Type: BLOOD SPECIMENOrdering Facility: [facility] Address: [address] [place] [address] Performed By: #### R ENIND ####[facility] LABCLIA [id number] [address] LABCLIA [id number] [place] [address]#### 1763-2 ####[facility] LABCLIA [id number] [address] [place] METANEPHRINES, FREE PLASMAon 08-30-2023 METANEPHRINE, PLASMA 28 pg/mL Normal 12-67 [facility] Comment on above: Order Comment: Speci men Type: BLOOD SPECIMENOrdering Facility: [facility] Address: [address] [place] [address] Result Comment: Refe rence Ranges:Hypertensive adult > or = 18 yrs old: 12-72 pg/mLNormotensive adult > or = 18 yrs old: 12-67 pg/mLNormotensive children < 18 yrs old: 10-95 pg/mL Performed By: #### P METAN ####[facility] LABCLIA [id number] [address] [place] NORMETANEPHRINE, PLASMA 84 pg/mL Normal 18-101 [facility] Comment on above: Order Comment: Speci men Type: BLOOD SPECIMENOrdering Facility: [facility] Address: [address] [place] [address] Result Comment: Refe rence Ranges:Hypertensive adult > or = 18 yrs old: 24-145 pg/mLNormotensive adult > or = 18 yrs old: 18-101 pg/mLNormotensive children < 18 yrs old: 22-83 pg/mLMethyldopa may cause false elevation of normetanephrine levels in this assay. If patient is on methyldopa, interpret results with caution. 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 When there are no FDA-approved or cleared tests available, and other criteria are met, FDA can make tests available under an emergency access mechanism called an Emergency Use Authorization (EUA). The EUA for this test is supported by the [place] of Health and Human Service's (HHS's) declaration [...] SARS-CoV-2. Performed By: #### C VDTBH #### [facility] [address] [place] [address] Dr. Maylin Ch Follow-Upon 11-05-2022 Follow-Up [id number] Janine Joy 1990 F Date Provider Department Center 11/05/2022 RAVINDRA BUCKLEY ONC DCC Family History Problem Relation Age of Onset Diabetes Mother Thyroid cancer Mother Diabetes Father Hypertension Father Family Status - Relation Status Age at Mother Father Level of Service:82526 [place] OFFICE/OUTPATIENT ESTABLISHED MOD MDM 30-39 MIN Normal [facility] DRUG SCREEN RAPID (URINE)on 10-23-2022 AMP Negative Normal NEGATIVE [facility] Comment on above: Performed By: #### D RUGRPD #### [facility] [address] [place] [address] Dr. Maylin Ch BAR Negative Normal NEGATIVE [facility] Comment on above: Performed By: #### D RUGRPD #### [facility] [address] [place] [address] Dr. Maylin Ch BUP Negative Normal NEGATIVE [facility] Comment on above: Performed By: #### D RUGRPD #### [facility] [address] [place] [address] Dr. Maylin Ch BZO Negative Normal NEGATIVE [facility] Comment on above: Performed By: #### D RUGRPD #### [facility] [address] [place] [address] Dr. Maylin Ch DRE Negative Normal NEGATIVE [facility] Comment on above: Performed By: #### D RUGRPD #### [facility] [address] [place] [address] Dr. Maylin Ch CUT-OFFS SEE BELOW Normal [facility] Comment on [...] ng/mL Performed By: #### D RUGRPD #### [facility] [address] [place] [address] Dr. Maylin Ch DRUG CUT HEADER DRUG CLASS TEST SYST EM CUT-OFF CONCENTRATIONS ARE FOLLOWS: Normal [facility] Comment on above: Performed By: #### D RUGRPD #### [facility] [address] [place] [address] Dr. Maylin Ch mAMP Negative Normal NEGATIVE [facility] Comment on above: Performed By: #### D RUGRPD #### [facility] [address] [place] [address] Dr. Maylin Ch MTD Negative Normal NEGATIVE [facility] Comment on above: Performed By: #### D RUGRPD #### [facility] [address] [place] [address] Dr. Maylin Ch OPI Negative Normal NEGATIVE [facility] Comment on above: Performed By: #### D RUGRPD #### [facility] [address] [place] [address] Dr. Maylin Ch OXY Negative Normal NEGATIVE [facility] Comment on above: Performed By: #### D RUGRPD #### [facility] [address] [place] [address] Dr. Maylin Ch PCP Negative Normal NEGATIVE [facility] Comment on above: Performed By: #### D RUGRPD #### [facility] [address] [place] [address] Dr. Maylin Ch PPX Negative Normal NEGATIVE [facility] Comment on above: Performed By: #### D RUGRPD #### [facility] [address] [place] [address] Dr. Maylin Ch TCA Negative Normal NEGATIVE [facility] Comment on above: Performed By: #### D RUGRPD #### [facility] [address] [place], [place] [address] Dr. Maylin Ch THC Negative Normal NEGATIVE [facility] Comment on above: Performed By: #### D RUGRPD #### [facility] [address] [place], [place] [address] Dr. Maylin Ch MR BRAIN W AND [...] Electronically signed: Frank Lara. Normal [facility] Serum or plasma potassium me asurement (moles/volume)Ordered By: Manasa Rhodes on 09-13-2022 Potassium [Moles/Vol] 3.3 mmol/L 3.5-5.1 [facility] [place] [facility] Office Visiton 09-10-2022 Follow-up visit [id number] Janine Joy 1990 F Date Provider Department Center 09/10/2022 RAVINDRA BUCKLEY ONC DCC Family History Problem Relation Age of Onset Diabetes Mother Thyroid cancer Mother Diabetes Father Hypertension Father Family Status - Relation Status Age at Mother Father Level of Service:79397 [place] OFFICE/OUTPATIENT ESTABLISHED MOD MDM 30-39 MIN Reason for Visit and Comments: Consult [484] - Past patient, coming back today to have imaging reordered. Normal [facility] Orders Onlyon 09-10-2022 Orders Only [id number] Janine Joy 1990 F Date Provider Department Center 09/10/2022 MONICA DOMINGUEZ ONC DCC Family History Problem Relation Age of Onset Diabetes Mother Thyroid cancer Mother Diabetes Father Hypertension Father Family Status - Relation Status Age at Mother Father Normal [facility] MAGNESIUMon 09-07-2022 Magnesium [Mass/Vol] 1.9 mg/dL Normal 1.8-2.4 [facility] Comment on above: Performed By: #### M [address] PHOS, BMP #### [facility] [address] [place] [address] [address] Maylin Ch PHOSPHORUSon 09-07-2022 Phosphate [Mass/Vol] 3.7 mg/dL Normal 2.6-4.7 [facility] Comment on above: Performed By: #### M Court PHOS, BMP #### [facility] [address] [address] [address] Maylin Ch PROF CHEM 8 (BAS METB)on Anion gap [Moles/Vol] 14.3 mmol/L Normal [facility] Comment on above: Performed By: #### M Court PHOS, BMP #### [facility] [address] [address] [address] Maylin Ch Calcium [Mass/Vol] 9.3 mg/dL Normal 8.5-10.1 [facility] Comment on above: Performed By: #### M G PHOS, BMP #### [facility] [address] [address] [address] Maylin Ch Chloride [Moles/Vol] 105 mmol/L Normal 98-107 [facility] Comment on above: Performed By: #### YAMILET Lopez, BMP #### [facility] [address] [place] [address] Dr. Maylin Ch CO2 [Moles/Vol] 31.0 mmol/L Normal 21.0-32.0 [facility] Comment on above: Performed By: #### YAMILET Lopez, BMP #### [facility] [address] [address] [address] Maylin Ch Creatinine [Mass/Vol] 0.90 mg/dL Normal 0.55-1.02 [facility] Comment on above: Performed By: #### YAMILET Lopez, BMP #### [facility] [address] [place] [address] Dr. Maylin Ch EGFR-AF AUSTRIAN >60 Normal >=60 [facility] Comment on above: Performed By: #### YAMILET Lopez, BMP #### [facility] [address] [place] [address] Dr. Maylin Ch EGFR-NON AF AUSTRIAN >60 Normal >=60 [facility] Comment on above: Performed By: #### YAMILET Lopez, BMP #### [facility] [address] [place] [address] Dr. Maylin Ch Glucose [Mass/Vol] 158 mg/dL Critically high 74-106 [facility] Comment on above: Performed By: #### YAMILET Lopez, BMP #### [facility] [address] [place] [address] Dr. Maylin Ch Potassium [Moles/Vol] 2.3 mmol/L Critically low 3.5-5.1 [facility] Comment on above: Performed By: #### YAMILET Lopez, BMP #### [facility] [address] [place] [address] Dr. Maylin Ch Sodium [Moles/Vol] 147 mmol/L Critically high 136-145 [facility] Comment on above: Performed By: #### M G, PHOS, BMP #### [facility] [address] [place], [place] [address] Dr. Maylin Ch Urea nitrogen [Mass/Vol] 7.0 mg/dL Normal 7.0-18.0 [facility] Comment on above: Performed By: #### M Court PHOS, BMP #### [facility] [address] [place], [place] [address] Dr. Maylin Ch Urea nitrogen/Creatinine [Mass ratio] 7.8 mg/mg Normal [facility] Comment on above: Performed By: #### M Court PHOS, BMP #### [facility] [address] [place], [place] [address] Dr. Maylin Ch Serum or plasma potassium me asurement (moles/volume)Ordered By: NON STAFF on 09-07-2022 Potassium [Moles/Vol] 2.4 mmol/L 3.5-5.1 [facility] [place] [facility] Comment on above: Results calledat [...] is being seen for a consultation for. DEED Benson, [facility] Bariatrics- Bariatric sx History of Present [...] Vital Signs Recorded: 06Jun2022 04:17PMRecorded: 06Jun2022 03:45PM [id number], LUE, Sitting [id number], LUE, Sitting Heart Rate71, Apical Height5 ft 7 in Rjoznc956 lb BMI Ugznoqloqc57.77 kg/m2 BSA Calculated2.42 Tobacco Useb) No PHQ-2 [...] to auscul (more content not included)... Normal [place] [facility] Tobacco Screening.on 022 Adult depression screening assessment No [facility] [employer] 250 DO Work Phone: Tobacco use status CPHS b) No M [facility] [employer] 250 DO Work Phone: DHEA SERUMon 01-12-2022 Dehydroepiandrosterone (DHEA) 287 ng/dL Normal 31-701 [facility] Comment on above: Result Comment: Age [...] 701 Performed By: #### D STAR. #### [facility] [address] [place] [address] Dr. Maylin Ch TESTOSTERONE, FREE,DIRECT, T OTALon 01-06-2022 Free Testosterone(Direct) 1.6 pg/mL Normal 0.0-4.2 [facility] Comment on above: Result Comment: Perf ormed at: BN Performed By: #### T ESTFRD #### [facility] [address] [place] [address] Dr. Maylin Ch Testosterone [Mass/Vol] 17 ng/dL Normal 13-71 [facility] Comment on above: Result Comment: Perf ormed at: CB Performed By: #### T ESTFRD #### [facility] [address] [place] [address] Dr. Maylin Ch INSULINon 01-05-2022 Insulin 13.2 uIU/mL Normal 2.6-24.9 [facility] Comment on above: Performed By: #### I NSULIN #### [facility] [address] [place] [address] Dr. Maylin Ch GLYCOHEMOGLOBIN A1Con 2021 ADA RECOMMENDATION SEE BELOW Normal [facility] Comment on above: Result Comment: ADA RECOMMENDED LIMIT 4.0 - 6.0 ADA THERAPEUTIC TARGET < 7.0 ACTION SUGGESTED > 7.0 Performed By: #### A 1C #### [facility] [address] [place] [address] Dr. Maylin Ch Glucose [Mass/Vol] 146 mg/dL Normal [facility] Comment on above: Performed By: #### A 1C #### [facility] [address] [place] [address] Dr. Maylin Ch HbA1c (Bld) [Mass fraction] 6.7 % Critically high 4.5-6.2 [facility] Comment on above: Performed By: #### A 1C #### [facility] [address] [place] [address] Dr. Maylin Ch TSHon 01-04-2022 TSH 3.214 uIU/mL Normal 0.358-3.74 0 [facility] Comment on above: Performed By: #### T SH #### [facility] [address] [address] [address] Maylin Ch TSH RANGE SEE BELOW Normal [facility] Comment on above: Result Comment: <0.3 4 UIU/ml HYPERTHYROID 0.34-5.60 UIU/ml EUTHYROID >5.60 UIU/ml HYPOTHYROID Performed By: #### T SH #### [facility] [address] [address] [address] Maylin Ch Potassiumon 10-05-2021 Potassium [Moles/Vol] 3.3 mmol/L Low 3.5-5.5 [facility] Specialist Comment on above: Performed By: #### K #### [facility] [address] [place], [place] [id number] Basic Metabolic Panelon 08-06 Anion gap [Moles/Vol] 21 mmol/L High 12-20 [facility] Comment on above: Result Comment: Effe ctive 08/10/2019 reference range changed. Performed By: #### B MP #### [facility] [address] [place], [place] [id number] Calcium [Mass/Vol] 9.3 mg/dL Normal 8.6-10.2 [facility] Specialist Comment on above: Performed By: #### B MP #### [facility] [address], [place] [id number] Chloride [Moles/Vol] 106 mmol/L Normal 98-107 [facility] Specialist Comment on above: Performed By: #### B MP #### [facility] [address] [id number] CO2 [Moles/Vol] 20 mmol/L Normal 20-31 [facility] Specialist Comment on above: Performed By: #### B MP #### [facility] [address] [facility] [place] [id number] Creatinine [Mass/Vol] 0.7 mg/dL Normal 0.6-1.4 [facility] Specialist Comment on above: Performed By: #### B MP #### [facility] [address] [place], [place] [id number] eGFRAA 115 mL/min/1.73m2 Normal >60 [facility] Specialist Comment on above: Performed By: #### B MP #### [facility] [address] [place], [place] [id number] eGFRNAA 95 mL/min/1.73m2 Normal >60 [facility] Specialist Comment on above: Performed By: #### B MP #### [facility] [address] [place], [place] [id number] Glucose [Mass/Vol] 184 mg/dL High 65-99 [facility] Director Comment on above: Result Comment: For FASTING Glucose --- ADA reference ranges: Normal 65-99 mg/dl Prediabetes 100-125 Diabetes >/= 126 Performed By: #### B MP #### [facility] [address] [place], [place] [id number] Potassium [Moles/Vol] 2.8 mmol/L Critically low 3.5-5.5 [facility] Specialist Comment on above: Result Comment: Crit ical result called to Dr Rhodes/Rylee at 09/01/2021 11:58 AM by Cyndie Montanez (Bertha) Performed By: #### B MP #### [facility] [address] [place], [place] [id number] Sodium [Moles/Vol] 144 mmol/L Normal 135-146 [facility] Hospital Director Comment on above: Performed By: #### B MP #### [facility] [address] [place], [place] [id number] Urea nitrogen [Mass/Vol] 10 mg/dL Normal 7-25 [facility] Hospital Director Comment on above: Performed By: #### B MP #### [facility] [address] [place], [place] [id number] MRI BRAIN W WO CONTRASTon MRI BRAIN W WO CONTRAST [facility] Department of Radiology [address] [place] [id number] Patient Name: HEIDI JOY : 1990 Sex: F Age: Race: White Pt. Location: 29 Patient Status: O Ordered Date: 02/04/2020 2:05:00 PM Completed Date: 03/17/2020 10:13 AM Requesting Provider: GANGA RODRIGUES Attending Provider: GANGA RODRIGUES Report Copy To: IMMANUEL KUHN Signs & Symptoms: C71.9 Malignant neoplasm of brain, unspecified I10 History: Nita AMES AUTH [id number] VALID 03/04-04/03/2020 [id number] KW Comments: , 1p-19q co-deleted oligodendroglioma of [...] reports Electronically signed: Shawn Martins. Transcribed by: [email or web address], User Resident: JONATHAN JONES Electronically Signed by: SHAWN MARTINS @ 03/17/2020 12:45 PM I personally read this/these film(s) with this resident Normal [facility] Comment on above: Order Comment: [...] WO CONTRASTon MRI BRAIN W WO CONTRAST [facility] Department of Radiology [address] [place] [phone] Patient Name: HEIDI JOY : 1990 Sex: F Age: Race: White Pt. Location: 29 Patient Status: O Ordered Date: 03/20/2019 11:25:00 AM Completed Date: 09/11/2019 10:54 AM Requesting Provider: ALISA CH Attending Provider: ALISA CH Report Copy To: IMMANUEL KUHN Signs & Symptoms: C71.9 Malignant neoplasm of brain, unspecified I10 History: Nita ames auth # [id number] 08/28/2019-09/27/2019 cpt code 46110 *mla Comments: , 1p-19q co-deleted oligodendroglioma of [...] reports Electronically signed: Jim Curiel. Transcribed by: [email or web address], User Resident: DANDY HUFFMAN Electronically Signed by: JIM CURIEL @ 09/11/2019 04:35 PM I personally read this/these film(s) with this resident Normal [facility] Comment on above: Order Comment: [...] 01-29-2018 Coding Summary CODING DATE: 018 FINAL [facility] STATUS: Home PAYOR: Medicaid HMO [...] Swanson' Date Saved: 01/29/2018 03:42 pm Normal [facility] ED Clinical Summaryon 2017 ED Clinical Summary [facility] ? Urgent [address] [id number] clinical SummaryPERSON INFORMATIONName: HEIDI JOY Age: 27 Years Sex: FEMALEDOB: [birth year] MRN: Acct#:Visit Reason: UC - Rash; UC - Rash; RASH/ BILAT LEGS Arrival: 01/23/18 10:43:00 Discharge: 01/23/18 11:18:00LOS: 000 00:35 Check In: 01/23/18 10:43:00 Checkout: 01/23/18 11:18:00Address:[facility] [address]TJX: Immanuel Kuhn INFORMATIONProvider Role Assigned UnassignedSpasic Carmelo ASHRAF ED PA 01/23/18 10:48:23Cristal Dunaway ED Nurse 01/23/18 10:53:41VITALS INFORMATIONVital Sign Triage LatestTemperature TympanicTemperature Temporal ArteryPulse Rate 79 bpm 79 bpmO2 Sat 97 % 97 %Respiratory Rate 16 br/min 16 br/minBlood Pressure 162 mmHg/98 mmHg 162 mmHg/98 mmHgMEDICAL INFORMATIONMedications Given:Allergy Information:No Known Medication AllergiesPHYSICIAN DOCUMENTATIONDISCHARGE INFORMATION:Discharge Disposition: HomeDischarge Location:PATIENT EDUCATION INFORMATIONInstructions: Poison Wrenshall Dermatitis, Zlgy-ha-BlqtEevvlr-Up:With : Address: When:Immanuel Kuhn [address], [address] [place] [address] Voice[employer] (1)Comments:Begin on the prednisone 2 tablets daily for 5 days take with food to avoid gastric refluxBegin on the Claritin 1 tab daily for the next 2 weeks Follow-up with primary care provider in 3-5 days sooner if worse.DIAGNOSIS:urushiol induced contact dermatitisPatient Understands: Yes - Patient/family/caregiver verbalizes understanding of instructions givenComment: [facility] - Physicianon 2017 ED Note - Physician Patient: HONORIO JOY : 27 years Sex: FEMALE : [birth year]Associated Diagnoses: urushiol induced contact dermatitisAuthor: [place] InformationTime seen: Date & time 01/23/18 11:01:00.History source: Patient.Arrival mode: Private vehicle.History limitation: None.Additional information: Chief Complaint from Nursing Triage Note : Chief Jsswvlkhz36/21/18 10:45 EDT Chief Complaint 2-3 days possible [...] been selected or recorded..Social history:Social & Psychosocial YeinkhXsxydae60/21/2018 Number used per day: 10.Problem list:Active Problems (1)Smoker.Physical Examination Vital ArrnqVywxkbiftkjl25/21/18 10:45 EDT Height 170.18 cm Weight 122.47 [...] was given the following educational materials: Poison Wrenshall Dermatitis, Mbsh-dt-Bypp.Follow up with: Immanuel Kuhn Begin on the [...] Lake[Verified on: 01/23/2018 11:28 EDT] [place]elo [place] [facility] ED Patient Summaryon 018 ED Patient Summary [facility] ? Urgent [address] [place], [place] [id number] pATIENT DISCHARGE INSTRUCTIONSPatient InformationName: HEIDI JOY Age: 27 YearsDate of : [birth year]MRN: [id number] For Visit: UC - Rash; UC - Rash; RASH/ BILAT LEGSArrival Time: 01/23/18 10:43:00[facility]: [facility] Physician: Immanuel Kuhn Physician: Kailash Lakeomment:Patient EducationWith: Address: When:Immanuel Kuhn [address] [place] [address] [address] [place] [address] Business (1)Comments:Begin on the prednisone 2 tablets daily for 5 days take with food to avoid gastric refluxBegin on the Claritin 1 tab daily for the next 2 weeks Follow-up with primary care provider in 3-5 days sooner if worse.Poison Wrenshall DermatitisPoison oak dermatitis is redness and soreness [...] instructions at home:General instructions? Take or apply flpl-xbe-lgoneaf and prescription medicines only as told by [...] Reviewed: 12/28/2015[employer] Interactive Patient Education ? 2018 [employer]Medication Information:The exam and treatment you received today in the [facility] Emergency [facility] were for an urgent problem and are not intended as complete care. It is important for you to follow up with a doctor, nurse practitioner, or physician?s trust administrative assistant for ongoing care. If your symptoms [...] number so we can reach you if necessary.[facility] Emergency Department has provided you with a complete list of medications post discharge. Please inform your global account executive/provider of your visit and for further instruction [...] InformationVisit Diagnosis:Diagnoses This Visit UC - Rash ([id number]) UC - Rash ([id number]) urushiol induced contact dermatitisIf you received any [...] Weight: 122.47 kg Body Mass Index: 42.29 kg/z9Lodrafbo List:Problem Onset CommentsSmokerMajor Tests and Procedures:The following [...] Disease Control and Prevention April 2014 Normal [facility]gent Care [place] 018 Urgent Care Record [facility] ? Urgent [address] [id number] pATIENT DISCHARGE INSTRUCTIONSPatient InformationName: HEIDI JOY Age: 27 YearsDate of : [birth year]MRN: [id number] For Visit: UC - Rash; UC - Rash; RASH/ BILAT LEGSArrival Time: 01/23/18 10:43:00Phone: Primary Care Physician: Immanuel Kuhn Physician: Wai LakeandarComment:Visit Diagnosis:Diagnoses This Visit UC - Rash ([id number]) UC - Rash ([id number]) urushiol induced contact dermatitisIf you received any [...] sign any legal documentsWith: Address: When:Immanuel Kuhn [address] [place], [place] [id number] Business (1)Comments:Begin on the prednisone 2 tablets daily for 5 days take with food to avoid gastric refluxBegin on the Claritin 1 tab daily for the next 2 weeks Follow-up with primary care provider in 3-5 days sooner if worse.Medication Information:The exam and treatment you received today in the [facility] were for an urgent problem and are not intended as complete care. It is important for you to follow up with a doctor, nurse practitioner, or physician?s trust administrative assistant for ongoing care. If your symptoms [...] number so we can reach you if necessary.[facility] has provided you with a complete list of medications post discharge. Please inform your global account executive/provider of your visit and for further instruction [...] Weight: 122.47 kg Body Mass Index: 42.29 kg/u6Mqrixvdg List:Problem Onset CommentsSmoker Patient EducationPoison Wrenshall DermatitisPoison oak dermatitis is redness and soreness [...] instructions at home:General instructions? Take or apply vpmy-rwb-sbgoxhm and prescription medicines only as told by [...] Reviewed: 12/28/2015Kingsley[employer]byron Interactive Patient Education ? 2018 [employer]. Viruses or BacteriaWhat?s got you sick?Antibiotics only [...] Disease Control and Prevention April 2014 Normal [facility] Vital Signs Date Time Vital Sign Value Performing Clinician Jill rudd 05-07-2024 08:34-0400 Body height 167.6 cm Eliot Ricky DO Work Phone: [facility] 05-07-2024 08:34-0400 Body mass index (BMI) [Ratio] 28.08 kg/m2 Eliot Gardnerler DO Work Phone: [facility] 05-07-2024 08:34-0400 Body temperature 97.9 [degF] Eliot Andrews DO Work Phone: [facility] 05-07-2024 08:34-0400 Body weight 78.93 kg Eliot Andrews DO Work Phone: [facility] 05-07-2024 08:34-0400 Diastolic blood pressure 68 mm[Hg] Eliot Andrews DO Work Phone: [facility] 05-07-2024 08:34-0400 Heart rate 68 /min Eliot Andrews DO Work Phone: [facility] 05-07-2024 08:34-0400 SaO2% (BldA) [Mass fraction] 100 % Eliot Andrews DO Work Phone: [facility] 05-07-2024 08:34-0400 Systolic blood pressure 120 mm[Hg] Eliot Andrews DO Work Phone: [facility] 05-04-2024 08:50-0400 Blood Pressure Location Calderon Sarmini [facility] 05-04-2024 08:50-0400 Diastolic blood pressure 80 mm[Hg] Calderon Sarmini [facility] 05-04-2024 08:50-0400 Heart rate 73 /min Calderon Sarmini [facility] 05-04-2024 08:50-0400 Systolic blood pressure 117 mm[Hg] Calderon Sarmini [facility] 03-19-2024 13:53-0400 Blood Pressure Location Calderon Sarmini [facility] 03-19-2024 13:53-0400 Diastolic blood pressure 88 mm[Hg] Calderon Sarmini [facility] 03-19-2024 13:53-0400 Heart rate 86 /min Calderon Sarmini [facility] 03-19-2024 13:53-0400 Respiratory rate 16 /min Calderon Sarmini [facility] 03-19-2024 13:53-0400 Systolic blood pressure 132 mm[Hg] Calderon Sarmini [facility] 02-21-2024 11:39-0400 Diastolic blood pressure 79 mm[Hg] DO Immanuel Mcgrather Work Phone: [facility] 02-21-2024 11:39-0400 Heart rate 64 /min DO Immanuel Mcgrather Work Phone: [facility] 02-21-2024 11:39-0400 Respiratory rate 16 /min DO Immanuel Bam Work Phone: [facility] 02-21-2024 11:39-0400 SaO2% (BldA) [Mass fraction] 100 % DO Immanuel Bam Work Phone: [facility] 02-21-2024 11:39-0400 Systolic blood pressure 130 mm[Hg] DO Immanuel Bam Work Phone: [facility] 02-21-2024 08:48-0400 Body height 170.18 cm DO Immanuel Mcgrather Work Phone: [facility] 02-21-2024 08:48-0400 Body temperature 98.3 [degF] DO Immanuel Bam Work Phone: [facility] 02-21-2024 08:48-0400 Body weight 81 kg DO Immanuel Bam Work Phone: [facility] 02-12-2024 09:20-0400 Body height 170.2 cm Vikki Balderrama MD Work Phone: [facility] 02-12-2024 09:20-0400 Body mass index (BMI) [Ratio] 26.52 kg/m2 Vikki Balderrama MD Work Phone: [facility] 02-12-2024 09:20-0400 Body weight 76.8 kg Vikki Balderrama MD Work Phone: [facility] 02-12-2024 09:20-0400 Diastolic blood pressure 81 mm[Hg] Vikki Balderrama MD Work Phone: [facility] 02-12-2024 09:20-0400 Heart rate 76 /min Vikki Balderrama MD Work Phone: [facility] 02-12-2024 09:20-0400 SaO2% (BldA) [Mass fraction] 98 % Vikki Balderrama MD Work Phone: [facility] 02-12-2024 09:20-0400 Systolic blood pressure 120 mm[Hg] Vikki Balderrama MD Work Phone: [facility] 02-04-2024 11:26-0400 Body mass index (BMI) [Ratio] 27.74 kg/m2 Anneliese Bearden MD Work Phone: [facility] 02-04-2024 11:26-0400 Body weight 80.33 kg Anneliese Bearden MD Work Phone: [facility] 02-04-2024 11:26-0400 SaO2% (BldA) [Mass fraction] 100 % Anneliese Bearden MD Work Phone: [facility] 01-28-2024 16:10-0400 SaO2% (BldA) [Mass fraction] 99 % IMMANUEL KUHN [facility] Comment on above: Order Comment: Specimen Type: ARTERIAL B LOOD SPECIMENOrdering Facility: [facility] Address: [address] [place] [id number] Performed By: #### A [facility] [place] ####[facility] [id number] [address] [facility] [place] 01-20-2024 09:02-0400 Body height 170.2 cm Pac Virtual [facility] 01-20-2024 09:02-0400 Body mass index (BMI) [Ratio] 27.41 kg/m2 Pac Virtual [facility] 01-20-2024 09:02-0400 Body weight 79.38 kg [facility] 12-11-2023 10:13-0400 Body mass index (BMI) [Ratio] 28.35 kg/m2 Anneliese Bearden MD Work Phone: [facility] 12-11-2023 10:13-0400 Body weight 82.1 kg Anneliese Bearden MD Work Phone: [facility] 12-11-2023 10:13-0400 SaO2% (BldA) [Mass fraction] 98 % Anneliese Bearden MD Work Phone: [facility] 12-06-2023 09:08-0400 Body height 170.2 cm Pacc 2 Work Phone: [facility] 12-06-2023 09:08-0400 Body mass index (BMI) [Ratio] 28.66 kg/m2 Pacc 2 Work Phone: [facility] 12-06-2023 09:08-0400 Body temperature 98.1 [degF] Pacc 2 Work Phone: [facility] 12-06-2023 09:08-0400 Body weight 83 kg Pacc 2 Work Phone: [facility] 12-06-2023 09:08-0400 Diastolic blood pressure 90 mm[Hg] Pacc 2 Work Phone: [facility] 12-06-2023 09:08-0400 Heart rate 67 /min Pacc 2 Work Phone: [facility] 12-06-2023 09:08-0400 Respiratory rate 16 /min Pacc 2 Work Phone: [facility] 12-06-2023 09:08-0400 SaO2% (BldA) [Mass fraction] 99 % Pacc 2 Work Phone: [facility] 12-06-2023 09:08-0400 Systolic blood pressure 170 mm[Hg] Pacc 2 Work Phone: [facility] 09-13-2023 10:53-0500 Body mass index (BMI) [Ratio] 31.78 kg/m2 Barbara Dixon 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 Work Phone: [facility] 09-13-2023 10:53-0500 Body temperature 97.5 [degF] Barbara Dixon 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 Work Phone: [facility] 09-13-2023 10:53-0500 Body weight 89.3 kg Barbara 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 Work Phone: [facility] 09-13-2023 10:53-0500 Diastolic blood pressure 100 mm[Hg] 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 Dixon 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 [employer] Work Phone: [facility] 09-13-2023 10:53-0500 Heart rate 79 /min Barbara Dixon 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 [employer] Work Phone: [facility] 09-13-2023 10:53-0500 SaO2% (BldA) [Mass fraction] 98 % Barbara Dixon 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 [employer] Work Phone: [facility] 09-13-2023 10:53-0500 Systolic blood pressure 160 mm[Hg] Barbara Dixon 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 [employer] Work Phone: [facility] 09-09-2023 16:00-0500 Body height 170.18 cm Zara Ramo Other [email or web address] Other 09-09-2023 16:00-0500 Body mass index (BMI) [Ratio] 30.82 kg/m2 Zara Ramo Other [email or web address] Other 09-09-2023 16:00-0500 Body temperature 96.4 [degF] Zara Ramo Other [email or web address] Other 09-09-2023 16:00-0500 Body weight 89.27 kg Zara Ramo Other [email or web address] Other 09-09-2023 16:00-0500 Diastolic blood pressure 92 mm[Hg] Zara Ramo Other [email or web address] Other 09-09-2023 16:00-0500 Respiratory rate 18 /min Zara Ramo Other [email or web address] Other 09-09-2023 16:00-0500 SaO2% (BldA) [Mass fraction] 99 % Zara Ramo Other [email or web address] Other 09-09-2023 16:00-0500 Systolic blood pressure 151 mm[Hg] Zara Ramo Other [email or web address] Other 08-19-2023 16:00-0500 Body height 170.18 cm Zara Ramo Other [email or web address] Other 08-19-2023 16:00-0500 Body mass index (BMI) [Ratio] 31.76 kg/m2 Zara Ramo Other [email or web address] Other 08-19-2023 16:00-0500 Body temperature 97.5 [degF] Zara Ramo Other [email or web address] Other 08-19-2023 16:00-0500 Body weight 91.99 kg Zara Ramo Other [email or web address] Other 08-19-2023 16:00-0500 Diastolic blood pressure 100 mm[Hg] Zara Ramo Other [email or web address] Other 08-19-2023 16:00-0500 Respiratory rate 18 /min Zara Ramo Other [email or web address] Other 08-19-2023 16:00-0500 SaO2% (BldA) [Mass fraction] 100 % Zara Ramo Other [email or web address] Other 08-19-2023 16:00-0500 Systolic blood pressure 170 mm[Hg] Zara Ramo Other [email or web address] Other 06-06-2022 16:17-0400 Diastolic blood pressure 89 mm[Hg] Immanuel Kuhn Work Phone: [facility] [employer] 250 DO Work Phone: 06-06-2022 16:17-0400 Systolic blood pressure 138 mm[Hg] Immanuel Kuhn Work Phone: [facility] 250 DO Work Phone: 06-06-2022 15:45-0400 Body height 170.18 cm Immanuel Kuhn Work Phone: [facility] 250 DO Work Phone: 06-06-2022 15:45-0400 Body mass index (BMI) [Ratio] 47.77 kg/m2 Immanuel Kuhn Work Phone: [facility] 250 DO Work Phone: 06-06-2022 15:45-0400 Body surface area Derived from formula 2.42 m2 Immanuel Kuhn Work Phone: [facility] 250 DO Work Phone: 06-06-2022 15:45-0400 Body weight 138.35 kg Immanuel Kuhn Work Phone: [facility] 250 DO Work Phone: 06-06-2022 15:45-0400 Diastolic blood pressure 102 mm[Hg] Immanuel Kuhn Work Phone: [facility] 250 DO Work Phone: 06-06-2022 15:45-0400 Heart rate 71 /min Immanuel Kuhn Work Phone: [facility] 250 DO Work Phone: 06-06-2022 15:45-0400 Systolic blood pressure 160 mm[Hg] Immanuel Kuhn Work Phone: [facility] 250 DO Work Phone: Encounters Encounter Date Encounter Type Care Provider Facility Start: 06-04-2024 End: 06-04-2024 Bamboo flowsheet Sheila Braun [facility] Work Phone: [facility] Start: 06-04-2024 End: 06-04-2024 Bamboo flowsheet Sheila Youngbloodnett [facility] Work Phone: [facility] Start: 06-04-2024 End: 06-04-2024 flow sheet [facility] Ob Nurse [facility] OB Comment on above: GA: 7w5d Start: 06-04-2024 End: 06-04-2024 ambulatory JUANKRYS BARON Not Available Start: 06-04-2024 End: 06-04-2024 ambulatory SHEILA BRAUN Not Available Start: 05-28-2024 End: 05-28-2024 Bamboo flowsheet Sheila Josefa YoungbloodBraun LPCC Work Phone: [facility] Start: 05-28-2024 End: 05-28-2024 Bamboo flowsheet Sheila Josefa YoungbloodBraun LPCC Work Phone: [facility] Start: 05-28-2024 End: 05-28-2024 Social Work Sheila Braun LPCC Work Phone: [facility] Comment on above: Generalized anxiety disorder (CMS/HCC); Bipolar affective disorder, currently depressed, mild (CMS/HCC) Start: 05-24-2024 End: 05-24-2024 Office outpatient visit 25 minutes Rea Josefa Kaplan 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 [employer] Work Phone: [facility] Comment on above: Viral illness (Prima ry Dx); Pharyngitis, unspecified etiology Start: 05-24-2024 End: 05-24-2024 ambulatory REA Rivero RONTERRY Not Available Start: 05-21-2024 End: 05-21-2024 Bamboo flowsheet Sheila Braun [facility] Work Phone: [facility] Start: 05-21-2024 End: 05-21-2024 Bamboo flowsheet Sheila Braun [facility] Work Phone: [facility] Start: 05-21-2024 End: 05-21-2024 Social Work Sheila Braun [facility] Work Phone: [facility] Comment on above: Generalized anxiety disorder (CMS/HCC); Bipolar affective disorder, currently depressed, mild (CMS/HCC) Start: 05-19-2024 End: 05-19-2024 Telephone encounter Eliot L Andrews DO Work Phone: [facility] FM 230 Start: 05-19-2024 End: 05-19-2024 Office outpatient visit 25 minutes Eliot L Andrews DO Work Phone: [facility] FM 230 Comment on above: , unspecifi ed gestational age (Primary Dx); Missed menses Start: 05-19-2024 End: 05-19-2024 ambulatory IMMANUEL KUHN Not Available Start: 05-07-2024 End: 05-07-2024 Bamboo flowsheet Eliot L Andrews DO Work Phone: [facility] FM 230 Start: 05-07-2024 End: 05-07-2024 Bamboo flowsheet Eliot L Andrews DO Work Phone: [facility] FM 230 Start: 05-07-2024 End: 05-07-2024 ambulatory ELIOT L CUTLER Not Available Start: 05-07-2024 End: 05-07-2024 Office outpatient visit 25 minutes Eliot L Andrews DO Work Phone: [facility] 230 Comment on above: Bipolar affective di sorder, currently depressed, mild (CMS/HCC) (Primary Dx); LUISITO (generalized anxiety disorder) (CMS/HCC); Irritable bowel syndrome with both constipation and diarrhea; Anastomotic ulcer Start: 05-05-2024 End: 05-05-2024 Bamboo flowsheet Sheila Braun [facility] Work Phone: [facility] Start: 05-05-2024 End: 05-05-2024 Bamboo flowsheet Sheila Braun [facility] Work Phone: [facility] Start: 05-05-2024 End: 05-05-2024 Social Work Sheila Braun [facility] Work Phone: [facility] Comment on above: Generalized anxiety disorder (CMS/HCC); Bipolar affective disorder, currently depressed, mild (CMS/HCC) Anxiety Start: 05-04-2024 End: 05-04-[facility] Start: 05-04-2024 End: 05-04-2024 Patient encounter procedure [facility] Start: 04-21-2024 End: 04-21-2024 ambulatory SHEILA BRAUN Not Available Start: 04-20-2024 End: 04-20-2024 ambulatory Jose DACOMA Facility:[facility] Start: 04-10-2024 End: 04-10-2024 ambulatory IMMANUEL KUHN Facility:[facility] Start: 04-10-2024 End: 04-10-2024 ambulatory IMMANUEL KUHN Facility:[facility] Start: 04-10-2024 End: 04-10-2024 Patient encounter procedure Nurse Lyla [facility] Work Phone: Endocrinology Comment on above: 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) Start: 04-09-2024 End: 04-09-2024 Telephone encounter Vikki Balderrama MD Work Phone: Endocrinology Start: 04-01-2024 End: 04-01-2024 ambulatory SHEILA L BRAUN Not Available Start: 03-25-2024 End: 03-25-2024 ambulatory SHEILA L BRAUN Not Available Start: 03-24-2024 End: 03-24-2024 Lab Drop off Calderon Talal Leannmini [facility] Start: 03-24-2024 End: 03-24-2024 ambulatory Calderon Talal Sarmini [place] [place] Start: 03-24-2024 End: 03-24-2024 ambulatory Calderon Talal Sarmini Facility:[id number] Start: 03-19-2024 End: 03-19-2024 ambulatory Calderon Talal Sarmini Facility:[facility] Start: 03-19-2024 End: 03-19-2024 Patient encounter procedure Calderon Talal Leannmini [facility] Start: 03-18-2024 End: 03-18-2024 ambulatory SHEILA L BRAUN Not Available Start: 02-27-2024 ambulatory Calderon Sarmini Facili ty:[facility] Start: 02-26-2024 End: 02-26-2024 ambulatory [facility] Facility:[facility] Start: 02-26-2024 End: 02-26-2024 ambulatory ELIOT L CUTLER Not Available Start: 02-21-2024 End: 02-21-2024 Emergency department patient visit DO Immanuel Bam Work Phone: [facility] Work Phone: Start: 02-20-2024 End: 02-20-2024 ambulatory SHEILA L BRAUN Not Available Start: 02-20-2024 End: 02-20-2024 ambulatory ELIOT L CUTLER Not Available Start: 02-19-2024 End: 02-19-2024 ambulatory TAREK ASHOUR Facility:[facility] Start: 02-13-2024 End: 02-13-2024 ambulatory IMMANUEL KUHN Not Available Start: 02-13-2024 Telephone encounter Vikki smith MD Work Phone: Endocrinology Start: 02-13-2024 End: 02-13-2024 ambulatory [facility] Facility:[facility] Start: 02-13-2024 End: 02-13-2024 ambulatory SHEILA BRAUN [...] Work Phone: Endocrinology Start: 02-07-2024 End: 02-07-2024 [facility] Facility:[facility] Start: 02-04-2024 End: 02-04-2024 [facility] Facility:[facility] Start: 02-04-2024 End: 02-04-2024 Patient encounter procedure Anneliese Bearden MD Work Phone: Kidney Medicine Comment on above: Chronic hypokalemia (Primary Dx); Primary hyperaldosteronism (HCC); Uncontrolled hypertension Start: 02-03-2024 End: 02-03-2024 [facility] Facility:[facility] Start: 01-27-2024 End: 01-29-2024 Evaluation and management of inpatient IMMANUEL KUHN Facility:[facility] Start: 01-23-2024 End: 01-23-2024 ambulatory SHEILA L BRAUN Not Available Start: 01-20-2024 End: 01-20-2024 ambulatory [facility] Facility:[facility] Start: 01-20-2024 Encounter for other preprocedural examination IMMANUEL KUHN [facility] Start: 01-20-2024 End: 01-20-2024 Office outpatient visit 15 minutes [facility] Pre Anesthesia Comment on above: Pre-op evaluation (P rimary Dx); Oligodendroglioma of brain (HCC); History of bariatric surgery; Iron deficiency; Adenoma of left adrenal gland; Primary hyperaldosteronism (HCC); Tobacco use; History of hypokalemia Start: 01-20-2024 End: 01-20-2024 Preprocedural examination done [facility] Work Phone: Start: 01-16-2024 End: 01-16-2024 ambulatory [facility] Facility:[facility] Start: 01-16-2024 End: 01-16-2024 ambulatory ELIOT GARCÍA Not Available Start: 01-07-2024 End: 01-07-2024 ambulatory SHEILA L BRAUN Not Available Start: 01-02-2024 E-mail encounter cayla Bearden MD Work Phone: Kidney Medicine Start: 01-02-2024 Follow-up encounter Anneliese diehl MD Work Phone: Kidney Medicine Comment on above: follow up Start: 01-02-2024 End: 01-02-2024 [facility] Facility:[facility] Start: 12-31-2023 End: 12-31-2023 ambulatory SHEILA L BRAUN Not Available Start: 12-24-2023 End: 12-24-2023 ambulatory SHEILA L BRAUN Not Available Start: 12-23-2023 End: 12-23-2023 [facility] Facility:[facility] Start: 12-19-2023 Telephone encounter Mario encinas MD Work Phone: Endocrine Surgery Comment on above: 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 Start: 12-19-2023 End: 12-19-2023 [facility] Facility:[facility] Start: 12-16-2023 End: 12-16-2023 ambulatory Anneliese Bearden MD Work Phone: Kidney Medicine Comment on above: Recent potassium pre scription Start: 12-13-2023 E-mail encounter cayla mcnulty caregiver Anneliese Bearden MD Work Phone: Kidney Medicine Start: 12-13-2023 Follow-up encounter Anneliese diehl MD Work Phone: Kidney Medicine Comment on above: Follow up Chronic hypokalemia (Primary Dx) Start: 12-13-2023 End: 12-13-2023 ambulatory ANNELIESE BEARDEN Facility:[facility] Start: 12-12-2023 End: 12-12-2023 ambulatory SHEILA Josefa BRAUN Not Available Start: 12-12-2023 End: 12-12-2023 ambulatory ELIOT GARCÍA Not Available Start: 12-11-2023 End: 12-11-2023 Patient encounter procedure Anneliese Bearden MD Work Phone: Kidney Medicine Comment on above: Chronic hypokalemia (Primary Dx); Adenoma of left adrenal gland; Primary hyperaldosteronism (HCC); Uncontrolled hypertension; Hypertension secondary to endocrine disorders; History of bariatric surgery Start: 12-11-2023 End: 12-11-2023 ambulatory [facility] Facility:[facility] Start: 12-10-2023 End: 12-10-2023 Evaluation and management of inpatient IMMANUEL Tatyana BAM Facility:[facility] Start: 12-06-2023 End: 12-06-2023 PAT [facility] [place] [facility] Work Phone: Pre Anesthesia Comment on above: Pre-op evaluation (P rimary Dx); Iron deficiency; Migraine with aura and without status migrainosus, not intractable; First degree AV block; Acute hypokalemia; Oligodendroglioma of brain (HCC); Bipolar affective disorder, currently depressed, mild (HCC); Depressive disorder; Anxiety; History of bariatric surgery Start: 12-06-2023 End: 12-06-2023 Preprocedural examination done [facility] [place] [facility] Work Phone: [facility] Work Phone: Start: 12-03-2023 End: 12-03-2023 [...] Start: 11-15-2023 End: 11-15-2023 ambulatory ARIANNA LORA Facility:[facility] Start: 11-14-2023 Telephone encounter Arianna avendano MD Work Phone: Endocrinology Comment on above: Returning Patient's Call; Results Start: 11-14-2023 End: 11-14-2023 ambulatory NATASHA CHASE Facility:[facility] Start: 11-14-2023 End: 11-14-2023 ambulatory SHEILA L BRAUN Not Available Start: 11-07-2023 End: 11-07-2023 ambulatory SHEILA L BRAUN Not Available Start: 11-05-2023 ambulatory Mario Sullivan MD Work Phone: Endocrine Surgery Comment on above: OR [facility] 12/10/23 (Roboti c lap left adrenalectomy ) Start: 10-30-2023 End: 10-30-2023 ambulatory SHEILA L BRAUN Not Available Start: 10-30-2023 End: 10-30-2023 ambulatory ELIOT L CUTLER Not Available Start: 10-25-2023 Telephone encounter Mario encinas MD Work Phone: Endocrine Surgery Comment on above: 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 Start: 10-24-2023 End: 10-24-2023 ambulatory SHEILA L BRAUN Not Available Start: 10-23-2023 End: 10-23-2023 ambulatory MIGEL YI Facility:[facility] Start: 10-22-2023 End: 10-22-2023 ambulatory ARMANDO CUNNINGHAM Facility:[facility] Start: 10-17-2023 End: 10-18-2023 ambulatory SHEILA Rivero BRAUN Not Available Start: 10-11-2023 End: 10-11-2023 ambulatory ARMANDO CUNNINGHAM Facility:[facility] Start: 10-10-2023 End: 10-10-2023 ambulatory SHEILA L BRAUN Not Available Start: 09-25-2023 End: 09-25-2023 ambulatory SHEILA L BRAUN Not Available Start: 09-25-2023 End: 09-25-2023 ambulatory MANASA DUNAWAY Not Available Start: 09-13-2023 Telephone encounter Barbara Dixon NP Work Phone: [facility] Start: 09-13-2023 End: 09-13-2023 ambulatory BARBARA DIXON Not Available Start: 09-13-2023 End: 09-13-2023 Office outpatient visit 25 minutes Barbara Dixon NP Work Phone: [facility] Comment on above: Acute bronchitis, un [...] with patient Mario Sullivan MD Work Phone: [facility] Start: 09-11-2023 Bamboo flowsheet Sheila L Benne tt [facility] Work Phone: [facility] Start: 09-11-2023 Bamboo flowsheet Sheila L Benne tt [facility] Work Phone: [facility] Start: 09-11-2023 End: 09-11-2023 Social Work Sheila Rivero Braun [facility] Work Phone: [facility] Comment on above: Generalized anxiety disorder (CMS/HCC); Bipolar affective disorder, currently depressed, mild (CMS/HCC) Start: 09-10-2023 Chart abstracting Manasa Dunaway DP Work Phone: [facility] Start: 09-10-2023 End: 09-10-2023 [facility] Start: 09-09-2023 End: 09-09-2023 ambulatory Zara Ramo Other [email or web address] Other Start: 09-09-2023 Office outpatient vi sit [...] SHEET) Start: 09-06-2023 End: 09-06-2023 ambulatory IMMANUEL BAM Facility:[facility] Start: 09-05-2023 Telephone encounter Mario encinas MD Work Phone: General Surgery Comment on above: Appointment (Called patient and left a message that patient was added to 's schedule for a virtual appointment for 09/12 at 11AM per . Sent [employer] message and mailed out appointment reminder) Start: 08-30-2023 End: 08-30-2023 ambulatory [facility]MM[facility]UEL [facility] Facility:[facility] Start: 08-30-2023 End: 08-30-2023 Patient encounter procedure DO Immanuel Kuhn Work Phone: [facility] [place] Work Phone: Start: 08-30-2023 End: 08-30-2023 ambulatory DO Immanuel Kuhn Work Phone: [facility] Work Phone: Start: 08-23-2023 End: 08-23-2023 ambulatory Zara Ramo Other [email or web address] Other Start: 08-23-2023 Telephone encounter Zara Ramo [facility] Start: 08-22-2023 End: 08-22-2023 ambulatory SHEILA L BRAUN Not Available Start: 08-21-2023 End: 08-21-2023 ambulatory MANASA Isaiah DUNAWAY Not Available Start: 08-20-2023 End: 08-20-2023 Telemedicine consultation with patient Vikki Balderrama MD Work Phone: [facility] Start: 08-20-2023 End: 08-20-2023 ambulatory Vikki Balderrama MD Work Phone: Endocrinology Comment on above: 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) Start: 08-19-2023 End: 08-19-2023 ambulatory Zara Ramo Other [email or web address] Other Start: 08-19-2023 Office outpatient ne w 45 minutes Zara Ramo [facility] Start: 08-19-2023 End: 08-19-2023 Patient encounter procedure DO Immanuel Kuhn Work Phone: [facility] Work Phone: Start: 08-15-2023 End: 08-15-2023 ambulatory MANASA Isaiah DUNAWAY Not Available Start: 08-14-2023 End: 08-14-2023 [...] for preprocedural laboratory examination DR DOCTOR FARMER [facility] Start: 12-07-2022 End: 12-08-[address] IMMANUEL KUHN Facility:[facility] Start: 12-07-2022 End: 12-08-2022 Encounter for preprocedural laboratory examination DR IMMANUEL KUHN Facility:[facility] Start: 11-05-2022 ambulatory RAVINDRA LEMA [facility] Start: 10-23-2022 End: 10-24-2022 ambulatory ZAKIA BENSON Facility:[facility] Start: 10-22-2022 End: 10-23-2022 ambulatory RAVINDRA LEMA [facility] Start: 09-13-2022 End: 09-13-2022 ambulatory DO Immanuel Kuhn Work Phone: [facility] Work Phone: Start: 09-13-2022 End: 09-13-2022 Patient encounter procedure DO Immanuel Kuhn Work Phone: [facility] [place] Work Phone: Start: 09-10-2022 End: 09-10-2022 ambulatory RAVINDRA LEMA [facility] Start: 09-07-2022 End: 09-08-[address] JOSE DARNELL . Facility:[facility] Start: 09-07-2022 End: 09-07-[address] JOSE DARNELL . Facility:[facility] Start: 09-07-2022 End: 09-07-2022 ambulatory DO Immanuel Kuhn Work Phone: [facility] Work Phone: Start: 09-07-2022 End: 09-07-2022 Patient encounter procedure DO Immanuel Kuhn Work Phone: [facility] [place] Work Phone: Start: 08-07-2022 Rx Renewal Immanuel Kuhn Work Phone: [facility] 250 DO Work Phone: Start: 07-31-2022 End: 02-21-2023 Preprocedural examination done Generic Provider [facility] Start: 06-06-2022 Office outpatient vi sit 25 minutes Immanuel Kuhn Work Phone: [facility] 250 DO Work Phone: Start: 06-06-[address] Della Kim Facility:[id number] Start: 01-04-2022 End: 01-05-[address] ESTHER ANGELES Facility: Start: 01-23-2018 End: 01-25-2018 Ambulatory Carmelo [facility] Facility:[facility] Patient encounter status Immanuel Kuhn Work Phone: [facility] 250 DO Work Phone: Procedures Date Procedure Procedure Detail Performing Clinician Start: 05-24-2024 STATUS COVID-19/FLU Rea L Didion 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 Work Phone: Start: 05-19-2024 Urine test visual color cmprsn meths Eliot L Andrews DO Work Phone: Start: 03-24-2024 Esophagogastroduodenoscopic electrohydraulic lithotripsy of bezoar in stomach Kvng Marie Start: 02-21-2024 Computed tomography of abdomen and pelvis with contrast DO Immanuel Kuhn Work Phone: Start: 01-20-2024 Antibody screen IMMANUEL KUHN Comment on above: Order Comment: Specimen Type: BLOOD SPEC IMENOrdering Facility: [facility] Address: [address] [place] [address] Performed By: #### T [id number] ####CC MAIN BLOOD BANKCLIA [id number] Start: 01-04-2024 Abscess of adrenal gland Kvng Baird i Start: 11-14-2023 Antibody screen IMMANUEL KUHN Comment on above: Order Comment: Specimen Type: BLOOD SPEC IMENOrdering Facility: [facility] Address: [address] [place] [address] Performed By: #### T [id number] ####CC MAIN BLOOD BANKCLIA [id number] Start: 09-12-2023 ALL POTASSIUM Generic External Data Provider Start: 09-06-2023 [facility] P [facility] Generic Exte rnal Data Provider Start: 12-03-2022 Bypass of stomach Kvng Marie Neoplasm of brain (disorder) Kvng Marie Comment on above: 2019 Plantar fascia struc ture (body structure) Kvng Marie Comment on above: left and right Plan of Treatment Date Care Activity Detail Author Start: 12-18-2026 Screening for malignant neoplasm of cervix [facility] Start: 01-15-2025 Urine screening for protein Diabetes: Urine Protein Screening [facility] Start: 07-01-2024 End: 07-01-2024 Social Work [facility] Start: 06-25-2024 End: 06-25-2024 Social Work 06/25/2024 10:00 AM EST Social Work [facility] [address] [place] [id number] Sheila Braun, [facility] [address] [place] [address] [facility] Start: 06-17-2024 End: 06-17-2024 Social Work [facility] Start: 06-11-2024 End: 06-11-2024 Social Work 06/11/2024 9:00 AM EST Social [facility] [address] [place] [address] Kade Sheila L, [facility] [address] [place] [address] [facility] Start: 06-04-2024 End: 06-04-2025 Bacteria identified in Urine by Culture Urine culture Microbiology Routine Encounter for supervision of normal first in first trimester Expected: 06/04/2024 (Approximate), Expires: 06/04/2025 [facility] Comment on above: Expected: 06/04/2024 (Approximate), Expi res: 06/04/2025 Start: 06-04-2024 End: 06-04-2025 Blood type and Indirect antibody screen panel - Blood Type and screen Lab Routine Encounter for supervision of normal first in first trimester Expected: 06/04/2024 (Approximate), Expires: 06/04/2025 [facility] Comment on above: Expected: 06/04/2024 (Approximate), Expi res: 06/04/2025 Start: 06-04-2024 End: 06-04-2025 CBC W Auto Differential panel - Blood CBC and differential Lab Routine Encounter for supervision of normal first in first trimester Expected: 06/04/2024 (Approximate), Expires: 06/04/2025 [facility] Comment on above: Expected: 06/04/2024 (Approximate), Expi res: 06/04/2025 Start: 06-04-2024 End: 06-04-2025 Hepatitis B virus surface Ag [Presence] in Serum or Plasma by Immunoassay Hepatitis B surface antigen Lab Routine Encounter for supervision of normal first in first trimester Expected: 06/04/2024 (Approximate), Expires: 06/04/2025 [facility] Comment on above: Expected: 06/04/2024 (Approximate), Expi res: 06/04/2025 Start: 06-04-2024 End: 06-04-2025 Hepatitis C virus Ab [Presence] in Serum or Plasma by Immunoassay Hepatitis C antibody Lab Routine Encounter for supervision of normal first in first trimester Expected: 06/04/2024 (Approximate), Expires: 06/04/2025 [facility] Comment on above: Expected: 06/04/2024 (Approximate), Expi res: 06/04/2025 Start: 06-04-2024 End: 06-04-2025 HIV-1/HIV-2 antigen/antibody combination immunoassay HIV-1 and HIV-2 antibodies Lab Routine Encounter for supervision of normal first in first trimester Expected: 06/04/2024 (Approximate), Expires: 06/04/2025 [facility] Comment on above: Expected: 06/04/2024 (Approximate), Expi res: 06/04/2025 Start: 06-04-2024 End: 06-04-2025 [id number] PLUS Core+SCA [id number] PLUS Core+SCA Pathology and Cytology Routine care, antepartum Encounter for screening for chromosomal anomalies Expected: 06/04/2024 (Approximate), Expires: 06/04/2025 [facility] Comment on above: Expected: 06/04/2024 (Approximate), Expi res: 06/04/2025 Start: 06-04-2024 End: 06-04-2025 Reagin Ab [Presence] in Serum by RPR RPR Lab Routine Encounter for supervision of normal first in first trimester Expected: 06/04/2024 (Approximate), Expires: 06/04/2025 [facility] Comment on above: Expected: 06/04/2024 (Approximate), Expi res: 06/04/2025 Start: 06-04-2024 End: 06-04-2025 Rubella antibody, IgG Rubella antibody, IgG Lab Routine Encounter for supervision of normal first in first trimester Expected: 06/04/2024 (Approximate), Expires: 06/04/2025 [facility] Comment on above: Expected: 06/04/2024 (Approximate), Expi res: 06/04/2025 Start: 06-04-2024 End: 06-04-2025 SENDOUT TEST MISCELLANEOUS [facility] Comment on above: Expected: 06/04/2024 (Approximate), Expi res: 06/04/2025 Start: 06-04-2024 End: 06-04-2025 Urinalysis complete panel - Urine Urinalysis with microscopic Lab Routine Encounter for supervision of normal first in first trimester Expected: 06/04/2024 (Approximate), Expires: 06/04/2025 [facility] Work Phone: Comment on above: Expected: 06/04/2024 (Approximate), Expi res: 06/04/2025 Start: 06-04-2024 End: 06-04-2024 Social Work [facility] Comment on above: Arrived Start: 05-28-2024 End: 05-28-2024 Social Work [facility] Start: 05-21-2024 End: 05-21-2024 Social Work [facility] Comment on above: Arrived Start: 05-19-2024 End: 05-19-2025 HCG, quantitative, HCG, quantitative, Lab Routine Missed menses , unspecified gestational age Expected: 05/19/2024 (Approximate), Expires: 05/19/2025 [facility] Work Phone: Comment on above: Expected: 05/19/2024 (Approximate), Expi res: 05/19/2025 Start: 05-13-2024 End: 05-13-2024 Social Work 05/13/2024 2:00 PM EDT Social [facility] [address] [place] [id number] Sheila Braun, [facility] [address] [place] [address] [facility] Start: 04-10-2024 End: 04-10-2024 Patient encounter procedure 04/10/2024 11:45 AM EDT Office Visit [facility] [address] [place] [address] [place] [address] lab [facility] Comment on above: lab Start: 04-10-2024 End: 04-10-2024 Patient encounter procedure 04/10/2024 8:30 AM EDT Office Visit Endocrinology [id number] [place], [place] [id number] ACTH test Endocrinology Comment on above: ACTH test Start: 04-05-2024 Covid-19 Vaccine ( season) Covid-19 Vaccine () [facility] Start: 04-05-2024 Influenza vaccination [facility] Start: 02-18-2024 End: 02-18-2024 ambulatory 02/18/2024 2:15 PM EDT Results Only [facility] [address] [place] [address] [place] [address] [facility] Start: 02-13-2024 End: 02-13-2024 ambulatory 02/13/2024 11:00 AM EDT Results Only [facility] [address] [place] [address] [place] [address] [facility] Start: 02-12-2024 End: 02-12-2024 Patient encounter procedure 02/12/2024 3:00 PM EDT Office Visit Endocrine Surgery [address] [place], [place] [id number] [place] [address] [place] [address] post op Endocrine Surgery Comment on above: post op Start: 02-12-2024 End: 05-13-2024 Aldosterone [Mass/volume] in Serum or Plasma ALDOSTERONE BLD Lab Routine Primary hyperaldosteronism (HCC) Expected: 02/12/2024, Expires: 05/13/2024 [facility] Work Phone: Comment on above: Expected: 02/12/2024, Expires: Start: 02-12-2024 End: 05-13-2024 Basic metabolic 2000 panel - Serum or Plasma BASIC METABOLIC PANEL Lab Routine Primary hyperaldosteronism (HCC) Expected: 02/12/2024, Expires: 05/13/2024 [facility] Comment on above: Expected: 02/12/2024, Expires: Start: 02-12-2024 End: 05-13-2024 DIRECT RENIN PLASMA DIRECT RENIN PLASMA Lab Routine Primary hyperaldosteronism (HCC) Expected: 02/12/2024, Expires: 05/13/2024 [facility] Comment on above: Expected: 02/12/2024, Expires: Start: 02-11-2024 End: 02-11-2024 ambulatory 02/11/2024 3:15 PM EDT Results Only [facility] [address] [place] [address] [facility] Start: 02-07-2024 End: 02-07-2024 ambulatory 02/07/2024 10:00 AM EDT Results Only [facility] [address] [place] [place] [address] [facility] Start: 02-04-2024 End: 05-05-2024 Renal function 2000 panel - Serum or Plasma RENAL FUNCTION PANEL Lab Routine Chronic hypokalemia Primary hyperaldosteronism (HCC) Expected: 02/04/2024, Expires: 05/05/2024 [facility] Work Phone: Comment on above: Expected: 02/04/2024, Expires: Start: 02-04-2024 End: 02-04-2024 Patient encounter procedure 02/04/2024 11:30 AM EDT Office Visit Kidney Medicine [address] [place] [address] Anneliese Bearden MD [address] [place] [address] surgery post-op add on per provider staff message 01/01 [facility] Medicine Comment on above: surgery post-op add on per provider staf f message 01/01 Start: 01-30-2024 Hemoglobin A1c measurement Diabetes: Hemoglobin A1C [facility] Start: 01-28-2024 End: 01-28-2024 Evaluation and management of inpatient 01/28/2024 11:34 AM EDT - 01/28/2024 3:41 PM EDT Surgery Admitting [address] [place] [address] [place] [address] [place] [address] ROBOTIC LAPAROSCOPIC LEFT TRANSABDOMINAL ADRENALECTOMY Admitting Comment on above: ROBOTIC LAPAROSCOPIC LEFT TRANSABDOMINAL ADRENALECTOMY Start: 01-28-2024 End: 01-28-2024 Laparoscopy adrenalectomy prtl/compl tabdl ROBOTIC LAPAROSCOPIC LEFT TRANSABDOMINAL ADRENALECTOMY Adenoma of left adrenal gland Primary hyperaldosteronism (HCC) 01/28/2024 11:34 AM EDT [facility] Start: 01-27-2024 Evaluation and management of inpatient 01/27/2024 11:34 AM EDT Hospital Encounter Admitting [address] [place] [address] [place] [address] [place] [address] 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] Admitting Comment on above: 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] Start: 01-23-2024 End: 01-23-2024 ambulatory [facility] Start: 01-20-2024 End: 01-20-2024 ambulatory [facility] Start: 01-20-2024 End: 01-20-2024 Anesthesia consultation 01/20/2024 9:00 AM EDT PAT Pre Anesthesia [address] [place] [address] pre-op Pre Anesthesia Comment on above: pre-op Start: 01-16-2024 End: 01-16-2024 ambulatory 01/16/2024 1:30 PM EDT Results Only [facility] [address] [place] [address] [facility] Start: 01-13-2024 End: 01-13-2024 ambulatory [facility] Start: 01-06-2024 End: 01-06-2024 ambulatory 01/06/2024 2:30 PM EDT Results Only [facility] [address] [place] [address] [facility] Start: 01-02-2024 End: 01-02-2024 [facility] Start: 12-31-2023 End: 12-31-2023 [facility] Start: 12-26-2023 End: 12-26-2023 [facility] Start: 12-25-2023 End: 12-25-2023 Patient encounter procedure 12/25/2023 1:00 PM EDT Office Visit Endocrine Surgery [address] [id number] [place] [address] [place] [id number] post op Endocrine Surgery Comment on above: post op Start: 12-23-2023 End: 12-23-2023 [facility] Start: 12-19-2023 End: 12-19-2023 [facility] Start: 12-16-2023 End: 12-16-2023 [facility] Start: 12-11-2023 End: 03-11-2024 Magnesium [Mass/volume] in Serum or Plasma MAGNESIUM Lab STAT Chronic hypokalemia Expected: 12/11/2023, Expires: 03/11/2024 [facility] Comment on above: Expected: 12/11/2023, Expires: Start: 12-11-2023 End: 03-11-2024 Renal function 2000 panel - Serum or Plasma RENAL FUNCTION PANEL Lab STAT Chronic hypokalemia Expected: 12/11/2023, Expires: 03/11/2024 [facility] Work Phone: Comment on above: Expected: 12/11/2023, Expires: Start: 12-10-2023 End: 12-10-2023 Admission to same day surgery center 12/10/2023 11:05 AM EDT - 12/10/2023 2:55 PM EDT Surgery Admitting [address] [place] [address] [place] [address] [place] [address] ROBOTIC LAPAROSCOPIC LEFT TRANSABDOMINAL ADRENALECTOMY Admitting Comment on above: ROBOTIC LAPAROSCOPIC LEFT TRANSABDOMINAL ADRENALECTOMY Start: 12-10-2023 End: 12-10-2023 Laparoscopy adrenalectomy prtl/compl tabdl ROBOTIC LAPAROSCOPIC LEFT TRANSABDOMINAL ADRENALECTOMY Adenoma of left adrenal gland 12/10/2023 11:05 AM EDT [facility] Start: 12-10-2023 Subsequent hospital visit by physician 12/10/2023 11:05 AM EDT Hospital Encounter Admitting [address] [place] [address] [place] [address] [place] [address] 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] Admitting Comment on above: 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] Start: 11-14-2023 End: 02-13-2024 Basic metabolic 2000 panel - Serum or Plasma BASIC METABOLIC PANEL Lab Routine Primary hyperaldosteronism (HCC) Expected: 11/14/2023, Expires: 02/13/2024 [facility] Work Phone: Comment on above: Expected: 11/14/2023, Expires: Start: 11-12-2023 End: 02-11-2024 CONFIRM BLOOD TYPE CONFIRM BLOOD TYPE Blood Bank Routine Adenoma of left adrenal gland Expected: 11/12/2023, Expires: 02/11/2024 [facility] Work Phone: Comment on above: Expected: 11/12/2023, Expires: Start: 11-12-2023 End: 02-11-2024 TYPE AND SCREEN,30 DAY TYPE AND SCREEN,30 DAY Blood Bank Routine Adenoma of left adrenal gland Expected: 11/12/2023, Expires: 02/11/2024 [facility] Work Phone: Comment on above: Expected: 11/12/2023, Expires: Start: 10-02-2023 End: 10-02-2023 Social Work 10/02/2023 12:00 PM EST Social Work [facility] [address] [place] [address] Sheila Braun, [facility] [address] [place] [address] [facility] Start: 09-25-2023 End: 09-25-2023 Social Work 09/25/2023 12:00 PM EST Social Work [facility] [address] [place] [address] Sheila Braun, [facility] [address] [place] [address] [facility] Start: 09-18-2023 End: 09-18-2023 Social Work 09/18/2023 12:00 PM EST Social Work [facility] [address] [place] [address] Sheila Braun, [facility] [address] [place] [address] [facility] Start: 09-11-2023 End: 09-11-2023 Social Work 09/11/2023 12:00 PM EST Social Work [facility] [address] [place] [address] Sheila Braun, [facility] [address] [place] [address] [facility] Start: 09-10-2023 End: 09-10-2023 Patient encounter procedure 09/10/2023 8:45 AM EST Office Visit [facility] [address] [place] [address] Manasa Dunaway DPM [address] [place] [address] [facility] Start: 08-30-2023 Doppler ultrasonography of kidney US renal doppler [facility] Start: 08-30-2023 US Unspecified body region [facility] Start: 08-20-2023 End: 11-19-2023 Aldosterone [Mass/volume] in Serum or Plasma ALDOSTERONE BLD Lab Routine Adenoma of left adrenal gland Expected: 08/20/2023, Expires: 11/19/2023 [facility] Work Phone: Comment on above: Expected: 08/20/2023, Expires: Start: 08-20-2023 End: 11-19-2023 Comprehensive metabolic 2000 panel - Serum or Plasma COMP METABOLIC PANEL Lab Routine Adenoma of left adrenal gland Expected: 08/20/2023, Expires: 11/19/2023 [facility] Work Phone: Comment on above: Expected: 08/20/2023, Expires: Start: 08-20-2023 End: 11-19-2023 Corticotropin [Mass/volume] in Plasma ACTH BLD Lab Routine Adenoma of left adrenal gland Expected: 08/20/2023, Expires: 11/19/2023 [facility] Work Phone: Comment on above: Expected: 08/20/2023, Expires: Start: 08-20-2023 End: 11-19-2023 Cortisol [Mass/volume] in Serum or Plasma CORTISOL BLD Lab Routine Adenoma of left adrenal gland Expected: 08/20/2023, Expires: 11/19/2023 [facility] Work Phone: Comment on above: Expected: 08/20/2023, Expires: Start: 08-20-2023 End: 11-19-2023 DHEA-S BLD DHEA-S BLD Lab Routine Adenoma of left adrenal gland Expected: 08/20/2023, Expires: 11/19/2023 [facility] Work Phone: Comment on above: Expected: 08/20/2023, Expires: Start: 08-20-2023 End: 11-19-2023 DIRECT RENIN PLASMA DIRECT RENIN PLASMA Lab Routine Adenoma of left adrenal gland Expected: 08/20/2023, Expires: 11/19/2023 [facility] Work Phone: Comment on above: Expected: 08/20/2023, Expires: Start: 08-20-2023 End: 11-19-2023 METANEPHRINES, FREE PLASMA METANEPHRINES, FREE PLASMA Lab Routine Adenoma of left adrenal gland Expected: 08/20/2023, Expires: 11/19/2023 [facility] Work Phone: Comment on above: Expected: 08/20/2023, Expires: Start: 08-05-2023 Behavioral Health Screening Behavioral Health Screening [facility] Start: 08-05-2023 Depression Assessment Depression Assessment [facility] Start: 07-04-2023 Urine screening for protein Diabetes: Urine Protein Screening [facility] Start: 04-05-2023 Covid-19 Vaccine ( season) Covid-19 Vaccine ( season) [facility] Start: 04-05-2023 Influenza vaccination Influenza Vaccine (#1) [facility] Start: 03-14-2023 FUV, Provider: Della Kim, Status: Pen, Time: 1:30 PM FUV, Provider: Della Kim, Status: Pen, Time: 1:30 PM [place] [address] DO Work Phone: Start: 04-06-2022 Hemoglobin A1c measurement Diabetes: Hemoglobin A1C [facility] Start: 2021 Screening for malignant neoplasm of cervix HPV Testing [facility] Start: 2012 Screening for malignant neoplasm of cervix [facility] Start: 2010 Hepatitis B Vaccine (1 of 3 - 19+ 3-dose series) Hepatitis B Vaccine (1 of 3 - 19+ 3-dose series) [facility] Start: 2010 Urine microalbumin profile DTaP,Tdap,Td Vaccine (1 - Tdap) [facility] Start: 2009 Annual PCP Team Chronic Disease Visit Annual PCP Team Chronic Disease Visit [facility] Start: 2009 BP Controlled (<130/80) BP Controlled (<130/80) [facility] Start: 2009 Hepatitis C screening Hepatitis C Screening [facility] Start: 2009 HIV screening HIV Screening [facility] Start: 2001 Glaucoma screening Diabetes: Retinopathy Screening [facility] Start: 1997 Pneumococcal vaccination Pneumococcal Vaccine (1 of 2 - PCV) [facility] Start: 02-02-1992 Covid-19 Vaccine (#1) Covid-19 Vaccine (#1) [facility] Start: 1991 Hepatitis B Vaccine (1 of 3 - 3-dose series) Hepatitis B Vaccine (1 of 3 - 3-dose series) [facility] Aldosterone [Mass/ti me] in 24 hour Urine ALDOSTERONE 24 HR, URINE Lab Routine Adenoma of left adrenal gland Ordered: 09/06/2023 [facility] Work Phone: Comment on above: Ordered: 09/06/2023 CATECHOLAMINES FRACTIONATED, URINE FREE CATECHOLAMINES FRACTIONATED, URINE FREE Lab Routine Adenoma of left adrenal gland Ordered: 09/06/2023 [facility] Work Phone: Comment on above: Ordered: 09/06/2023 CONFIRM BLOOD TYPE CONFIRM BLOOD TYPE Blood Bank Routine Adenoma of left adrenal gland 11/14/2023 10:37 AM EDT [facility] Work Phone: CREAT CLEAR 24 HOUR CREAT CLEAR 24 HOUR Lab Routine Adenoma of left adrenal gland Ordered: 09/06/2023 [facility] Work Phone: Comment on above: Ordered: 09/06/2023 CREATININE BLD CREATININE BLD L ab Routine Adenoma of left adrenal gland Ordered: 09/06/2023 [facility] Work Phone: Comment on above: Ordered: 09/06/2023 CREATININE CLEARANCE , UR 24HR CREATININE CLEARANCE, UR 24HR Lab Routine Adenoma of left adrenal gland Ordered: 09/06/2023 [facility] Work Phone: Comment on above: Ordered: 09/06/2023 End: 12-05-2024 ECG COMPLETE ECG COMPLETE ECG Routine Pre-op evaluation Iron deficiency Migraine with aura and without status migrainosus, not intractable 1 Occurrences starting 12/06/2023 until 12/05/2024 [facility] Work Phone: Comment on above: 1 Occurrences starting 12/06/2023 until 12/05/2024 Guidance for venous sampling of Vein IR VENOUS SAMPLING Radiology Routine Adenoma of left adrenal gland Ordered: 09/12/2023 [facility] Work Phone: Comment on above: Ordered: 09/12/2023 End: 12-12-2024 Magnesium [Mass/volume] in Serum or Plasma MAGNESIUM Lab Routine Chronic hypokalemia 2x per week for 12 Occurrences starting 12/13/2023 until 12/12/2024 [facility] Work Phone: Comment on above: 2x per week for 12 Occurrences starting 12/13/2023 until 12/12/2024 METANEPHRINES 24H UR METANEPHRIN ES 24H UR Lab Routine Adenoma of left adrenal gland Ordered: 09/06/2023 [facility] Work Phone: Comment on above: Ordered: 09/06/2023 Patient Education Abdominal Pain, Adult E D [facility] Work Phone: Patient referral [facility] Work Phone: REFER FOR ADMIT INTERVIEW REFER FOR ADMIT INTERVIEW Procedures Routine Adenoma of left adrenal gland Ordered: 11/12/2023 [facility] Work Phone: Comment on above: Ordered: 11/12/2023 End: 12-12-2024 Renal function 2000 panel - Serum or Plasma RENAL FUNCTION PANEL Lab STAT Chronic hypokalemia 2x per week for 12 Occurrences starting 12/13/2023 until 12/12/2024 [facility] Comment on above: 2x per week for 12 Occurrences starting 12/13/2023 until 12/12/2024 TYPE AND SCREEN,30 DAY TYPE AND SCREEN,30 DAY Blood Bank Routine Adenoma of left adrenal gland 11/14/2023 10:36 AM EDT [facility] Work Phone: URINE FREE CORTISOL BY LC-MS/MS URINE FREE CORTISOL BY LC-MS/MS Lab Routine Adenoma of left adrenal gland Ordered: 09/06/2023 [facility] Work Phone: Comment on above: Ordered: 09/06/2023 [facility] Immunizations Immunization Date Immunization Notes Care Provider Fa cility NEGATED: Highlighted row has not occurred!05-04-2024 influenza virus vaccine, unspecified formulation [facility] Payers Date Payer Category Payer Self-pay [id number] 2016 Medicaid [id number] 2016 Medicaid (Managed Care) [facility] MEDICAID [id number] 1991 Unknown [id number] 2.16.840.1.246024.3.579.2. 593 1991 Unknown [id number] 2.16.840.1.610104.3.579.2. 593 1991 Unknown [id number] 2.16.840.1.952005.3.579.2. 593 1991 Unknown [id number] 2.16.840.1.216673.3.579.2. 593 1991 Unknown [id number] 2.16.840.1.990018.3.579.2. 593 1991 Unknown [id number] 2.16.840.1.152423.3.579.2. 356 1991 Unknown [id number] 2.16.840.1.615130.3.579.2. 356 1991 Unknown [id number] 2.16.840.1.765983.3.579.2. 727 1991 Unknown [id number] 2.16.840.1.816706.3.579.2. 727 1991 Unknown [id number] 2.16.840.1.728134.3.579.2. 727 1991 Unknown [id number] 2.16.840.1.489700.3.579.2. 727 1991 Unknown [id number] 2.16.840.1.468721.3.579.2. 1259 1991 Unknown [id number] 2.16.840.1.272853.3.579.2. 1259 1991 Unknown [id number] 2.16.840.1.204904.3.579.2. 1259 1991 Unknown [id number] 2.16.840.1.783041.3.579.2. 1259 1991 Unknown [id number] 2.16.840.1.706178.3.579.2. 1259 1991 Unknown [id number] 2.16.840.1.714150.3.579.2. 1259 1991 Unknown [id number] 2.16.840.1.681134.3.579.2. 1259 1991 Unknown [id number] 2.16.840.1.121637.3.579.2. 1259 1991 Unknown [id number] 2.16.840.1.952803.3.579.2. 1259 1991 Unknown [id number] 2.16.840.1.046351.3.579.2. 9 1991 Unknown [id number] 2.16.840.1.482683.3.579.2. 1258 1991 Unknown [id number] 2.16.840.1.954393.3.579.2. 9 1991 Unknown [id number] 2.16.840.1.228116.3.579.2. 1258 1991 Unknown [id number] 2.16.840.1.998499.3.579.2. 1258 1991 Unknown [id number] 2.16.840.1.346289.3.579.2. 1258 1991 Unknown [id number] 2.16.840.1.016701.3.579.2. 1258 1991 Unknown [id number] 2.16.840.1.287785.3.579.2. 1258 1991 Unknown [id number] 2.16.840.1.252393.3.579.2. 1258 1991 Unknown [id number] 2.16.840.1.410882.3.579.2. 1258 1991 Unknown [id number] 2.16.840.1.773831.3.579.2. 1258 1991 Unknown [id number] 2.16.840.1.086228.3.579.2. 1258 1991 Unknown [id number] 2.16.840.1.252658.3.579.2. 1258 1991 Unknown [id number] 2.16.840.1.283838.3.579.2. 1258 1991 Unknown [id number] 2.16.840.1.178678.3.579.2. 1258 1991 Unknown [id number] 2.16.840.1.846385.3.579.2. 1258 1991 Unknown [id number] 2.16.840.1.152586.3.579.2. 1259 1991 Unknown [id number] 2.16.840.1.862180.3.579.2. 9 1991 Unknown [id number] 2.16.840.1.454947.3.579.2. 1259 1991 Unknown [id number] 2.16.840.1.712202.3.579.2. 9 1991 Unknown [id number] 2.16.840.1.724757.3.579.2. 1259 1991 Unknown [id number] 2.16.840.1.968110.3.579.2. 1258 1991 Unknown [id number] 2.16.840.1.126737.3.579.2. 9 1991 Unknown [id number] 2.16.840.1.255318.3.579.2. 1258 1991 Unknown [id number] 2.16.840.1.448262.3.579.2. 9 1991 Unknown [id number] 2.16.840.1.193102.3.579.2. 9 1991 Unknown [id number] 2.16.840.1.244573.3.579.2. 9 1991 Unknown [id number] 2.16.840.1.171259.3.579.2. 9 1991 Unknown [id number] 2.16.840.1.488278.3.579.2. 1259 1991 Unknown [id number] 2.16.840.1.853704.3.579.2. 9 1991 Unknown [id number] 2.16.840.1.123487.3.579.2. 9 1991 Unknown [id number] 2.16.840.1.777509.3.579.2. 9 1991 Unknown [id number] 2.16.840.1.091918.3.579.2. 1259 1991 Unknown [id number] 2.16.840.1.469995.3.579.2. 1259 1991 Unknown [id number] 2.16.840.1.131746.3.579.2. 1259 1991 Unknown [id number] 2.16.840.1.933674.3.579.2. 1259 1991 Unknown [id number]. 1259 1990 Unknown [id number]. 9 1990 Unknown [id number] 2.16.840.1.785004.3.579.2. 9 1990 Unknown [id number] 2.16.840.1.636809.3.579.2. 9 1990 Unknown [id number] 2.16.840.1.158569.3.579.2. 1259 1990 Unknown [id number] 2.16.840.1.179760.3.579.2. 9 1990 Unknown [id number] 2.16.840.1.758405.3.579.2. 9 1990 Unknown [id number] 2.16.840.1.000191.3.579.2. 9 1990 Unknown [id number] [id number]. 1259 1958 Medicaid [id number] Unknown [facility] Unknown [facility] [id number] Unknown [id number]. 531 Unknown [id number]. 531 Social History Date Type Detail Facility Start: 01-05-2020 End: 02-26-2024 No illicit drug use No illicit drug use -[facility]-Shreyas 250 DO Work Phone: Comment on above: quit 2021; Start: 11-09-2019 End: 02-21-2024 Tobacco smoking status NHIS Smoker (finding) [facility] Start: 1990 Sex Assigned At Female F [facility] Start: 01-05-2020 End: 02-26-2024 Sex Assigned At [facility] ffk environment Other Start: 01-05-2020 Tobacco smoking status NHIS Never smoked tobacco [facility] Start: 01-05-2020 End: 06-04-2024 Tobacco use and exposure Smokeless tobacco non-user [facility] Start: 01-05-2020 End: 02-12-2024 Alcohol intake Current drinker of alcohol (finding) [facility] National Score (1-100), lower number is lower risk 59 [facility] Start: 1990 Sex Assigned At Not on file C [facility] Start: 08-27-2023 Gender identity Identifies as female gender (finding) [facility] Start: 02-21-2023 End: 01-16-2024 Tobacco smoking status NHIS Ex-smoker [facility] End: 08-05-2022 History of tobacco use Cigarette Smoker [facility] Start: 08-15-2023 End: 06-04-2024 Alcohol intake Ex-drinker (finding) [facility] Start: 12-23-2022 Alcohol Comment 1-2 cans of soda silvestre ly [facility] Start: 09-10-2023 Alcohol Comment caffeine intak e: 1-2 cans of soda [facility] Start: 12-06-2023 End: 06-04-2024 Tobacco smoking status NHIS Smokes tobacco daily [facility] Start: 03-19-2024 End: 05-04-2024 Tobacco smoking status Heavy tobacco smoker (finding) [facility] Start: 06-04-2024 Tobacco Comment Cessation discussed [facility] Start: 06-04-2024 Alcohol Comment caffeine intak e: 5 cans soda/daily [facility] Start: 04-25-2024 [facility] Functional Status Date Assessment Result Facility 05-04-2024 Functional Status N/A [facility] 03-19-2024 Functional Status N/A [facility] Clinical Notes 09-10-2022 to 06-04-2024 Chiquita Pineda RN - 06/04/2024 10:30 AM EDTRea Kaplan, 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 Hx of being hospitalized 08/19/2018 Adm Zaragoza - Discharged 08/22/2018 Brain tumor Hx of being hospitalized 06/2018 [facility] admit 06/10/2018 discharged HTN , Brain tumor Hypertension (CMS/HCC) Kidney stones Malignant brain tumor (CMS/HCC) 08/2018 malignant brain tumor right frontal area, Dr. Lema Malignant neoplasm of brain (CMS/HCC) 06/17/2018 Menorrhagia with irregular cycle 02/21/2023 Oligodendroglioma (CMS/HCC) 2018 Otalgia of right ear PCOS (polycystic ovarian syndrome) Plantar fasciitis of left foot Past Surgical History: Procedure Laterality Date ADRENALECTOMY 01/2024 DILATION AND CURETTAGE 02/2020 dc with hysteroscopy ESOPHAGOGASTRODUODENOSCOPY 2021 EXCISION INGROWN TOENAIL 10/2021 ingrown toe nails GASTRIC BYPASS 2022 IR INTERVENTION VENOUS SAMPLING 10/23/2023 IR INTERVENTION VENOUS SAMPLING OTHER SURGICAL HISTORY 08/2018 r/o brain tumor (glioblastoma?) [facility] ANKLE SCOPE,PLANTAR FASCIOTOMY 03/2017 [facility] CRANIECT/CRANIOT W/WO DURAPLASTY W/LOBECTOMY 2019 removal - right frontal lobe [facility] ENDOSCOPIC PLANTAR FASCIOTOMY Right 2022 Right EPF [...] 06/04/2024 11:00 AM documented in this encounter [facility] 05-24-2024 History of Present illness Narrative Images [...] Rea Kaplan NP documented in this encounter [facility] 05-19-2024 Telephone encounter Note error [facility] 05-19-2024 Miscellaneous Notes error documented in this encounter [facility] 05-19-2024 History of Present illness Narrative Images [...] facility admission within last 6 months 09/2022 [facility] Hypokalemia (2.9, 2.4) Sent by [employer] Lead for K+ infusion. Hx of being hospitalized 08/19/2018 Adm Zaragoza - Discharged 08/22/2018 Brain tumor Hx of being hospitalized 06/2018 [facility] admit 06/10/2018 discharged HTN , Brain tumor Hypertension (CMS/HCC) Kidney stones Malignant brain tumor (CMS/HCC) 08/2018 malignant brain tumor right frontal area, Dr. Lema Malignant neoplasm of brain (CMS/HCC) 06/17/2018 Menorrhagia with irregular cycle 02/21/2023 Oligodendroglioma (CMS/HCC) 2017 Otalgia of right ear PCOS (polycystic ovarian syndrome) Plantar fasciitis of left foot documented in this encounter [facility] 05-07-2024 History of Present illness Narrative Images [...] facility admission within last 6 months 09/2022 [facility] Hypokalemia (2.9, 2.4) Sent by [employer] Lead for K+ infusion. Hx of being hospitalized 08/19/2018 Adm [place] - Discharged 08/22/2018 Brain tumor Hx of being hospitalized 06/2018 [facility] admit 06/10/2018 discharged HTN , Brain tumor Hypertension (CMS/HCC) Kidney stones Malignant brain tumor (CMS/HCC) 08/2018 malignant brain tumor right frontal area, Dr. Lema Malignant neoplasm of brain ([facility]/HCC) 06/17/2018 Menorrhagia with irregular cycle 02/21/2023 Oligodendroglioma (CMS/HCC) 2018 Otalgia of right ear PCOS (polycystic ovarian syndrome) Plantar fasciitis of left foot documented in this encounter [facility] 04-10-2024 Note [facility] 04-10-2024 History of Present illness Narrative Patient [...] Site: left arm. documented in this encounter [facility] 04-09-2024 Telephone encounter Note Pt cancelled ACTH stim test on 04/08/2024 and rescheduled for 04/10/2024. Repended Cosyntropin CAM order below, Please advise. [facility] 04-09-2024 Miscellaneous Notes Pt cancelled ACTH stim test on 04/08/2024 and rescheduled for 04/10/2024. Repended Cosyntropin CAM order below, Please advise. documented in this encounter [facility] 02-13-2024 Telephone encounter Note Received message from Dr. Balderrama: Patient will taper hydrocortisone and be on her baseline doses for two weeks. Can you please do a ACTH stim test during the week of 04/06? She should not take any steroids for atleast 12 hrs prior to the test . Called pt, no answer/busy. Will try later/tomorrow. [facility] 02-13-2024 Miscellaneous Notes Received message from Dr. Balderrama: Patient will taper hydrocortisone and be on her baseline doses for two weeks. Can you please do a ACTH stim test during the week of 04/06? She should not take any steroids for atleast 12 hrs prior to the test . Called pt, no answer/busy. Will try later/tomorrow. documented in this encounter [facility] 02-12-2024 History of Present illness Narrative Endocrinology Metabolism [place] [facility] Mario Sullivan M.D. Section of Endocrine Surgery and Advanced Laparoscopic Surgery [address] [place] [address], [place] [id number] ENDOCRINE SURGERY POST-OPERATIVE FOLLOW-UP NOTE NAME: Heidi Joy CLINIC NO: [id number] : 1990 Endocrine Surgeon: Mario Sullivan MD [...] Sullivan MD 02/12/2024 documented in this encounter [facility] 02-12-2024 Note [facility] 02-12-2024 Note [facility] 02-12-2024 History of Present illness Narrative Endocrinology and Metabolism [place] FOLLOW UP VISIT Last visit: 08/25/2023 Documentation [...] of left adrenal adenoma from 8mm in 2018 to 18mm in 07/2023. At that time [...] HX 12/11/2022 PART EXCIS PLANTAR FASCIA Right 2017 PART EXCIS PLANTAR FASCIA Left 2022 FAMILY [...] <1.8 ug/dL 0.9 Post-op labs: Latest Ref Rng 01/29/2024 WBC 3.70 - 11.00 k/uL 10.35 [...] - 99 mg/dL 52 Low Comment: [place] Diabetes [employer] [...] [place] Diabetes Association. Diabetes Care. 2016.39(Suppl 1). [facility] [...] stim test is abnormal Vikki Balderrama MD [facility] Endocrinology and Metabolism [place] - [facility] [phone] documented in this encounter [facility] 02-12-2024 Instructions Vikki Balderrama MD - [...] to the test. documented in this encounter [facility] 02-07-2024 Telephone encounter Note Please schedule a follow-up visit, first available. Offer wait list as well. Thank you Vikki Balderrama MD Endocrinology & Metabolism [place] [facility] 02-07-2024 Miscellaneous Notes Please schedule a follow-up visit, first available. Offer wait list as well. Thank you Vikki Balderrama MD Endocrinology & Metabolism [place] documented in this encounter [facility] 02-04-2024 Instructions Anneliese Bearden MD - 02/04/2024 11:45 AM EDT Follow up with endocrinology regarding the hydrocortisone When they wean you off it, your blood pressure will likely improve Eventually we can add small dose of spironolactone Send me home blood pressure readings in 2 weeks documented in this encounter [facility] 02-04-2024 Note [facility] 02-04-2024 History of Present illness Narrative [facility] NEPHROLOGY & HYPERTENSION SERVICE DATE: 02/04/2024 SERVICE [...] which included preparing to see the patient, [id number] patient care, completing clinical documentation, obtaining and/or reviewing separately obtained history, performing a medically appropriate examination, counseling and educating the patient/family/caregiver, ordering medications, tests, or procedures Anneliese Bearden MD Staff [employer]ered Bridge Specialist February 04, 2024 11:21 AM CC: PRIMARY CARE PHYSICIAN: Immanuel Kuhn DO documented in this encounter [facility] 01-29-2024 Note [facility] 01-28-2024 Note [facility] 01-28-2024 Note [facility] 01-28-2024 Note [facility] 01-27-2024 Note HNO ID: [id number] Author: BHAVNA PARKER, RN Service: Nursing Author Type: Registered Nurse Type: Nursing Progress Note Filed: 01/27/2024 19:23 Note Text: Admitted to [facility] in stable condition. Direct admit. Oriented to call button and room. [facility] 01-20-2024 Instructions Phuong Rock APRN.SCADA TECHNICIAN - 01/20/2024 9:11 AM EDT PATIENT PREOPERATIVE INSTRUCTIONS Glory Salcedo MD has scheduled you for your procedure at this surgery center: [facility] [place] Scheduling Office: [phone] --[address] [place] [address]. Please read below carefully for your personalized [...] Procedures: - YOU MUST HAVE A RESPONSIBLE COMMERCIAL ROOFING ESTIMATOR TAKE YOU HOME. A EXHIBIT SPECIALIST OR HISTORIC INTERPRETER CANNOT BE MADE A RESPONSIBLE COMMERCIAL ROOFING ESTIMATOR. - We recommend that a responsible person [...] call the Saturday before. Your surgeon s manager plant will tell you what time to call the office. - If you have not reached the departmental manager plant by 5 P.M., call [phone] after 5 P.M. the day before your surgery. Please be aware that emergency situations arise, which may delay or change your surgical time. If this happens, we will notify you as soon as possible and regret any inconvenience. If you already have an Advance Directive, please fax a copy to [phone] or email to for it to be [...] into your chart that day. Phuong Rock APRN.CHRISTIANA documented in this encounter [facility] 01-20-2024 History and physical note This [...] visit. Either the patient or their legal environmental marketing representative has been informed of the risks [...] or incontinence,, stones or chronic kidney disease WATCH AND CLOCK REPAIRER: Negative for abnormal vaginal bleeding, abnormal vaginal [...] 426 QTC Calculation (Bazett) 428 Calculated P Lowden 30 Calculated R Lowden 19 Calculated T Lowden 6 Impression SINUS RHYTHM WITH 1ST DEGREE [...] which included preparing to see the patient, [id number] patient care, completing clinical documentation, obtaining and/or reviewing separately obtained history, performing a medically appropriate examination, and counseling and educating the patient/family/caregiver This is a virtual visit. It required patient-provider interaction for the medical decision making as documented above. SIGNATURE: Phuong Rock APRN.CNP PATIENT NAME: Heidi Joy DATE: January 20, 2024 TIME: 9:16 AM PAGER/CONTACT #: [facility] 01-20-2024 History and physical note This [...] visit. Either the patient or their legal environmental marketing representative has been informed of the risks and benefits of and alternatives to treatment through a remote evaluation and consents to proceed with the evaluation remotely. PREANESTHESIA CONSULT CLINIC TELEHEALTH VISIT Patient has been identified by name and date of : Yes This is a virtual visit using [employer] Zoom Video Visit. It require patient-provider interaction [...] or incontinence,, stones or chronic kidney disease WATCH AND CLOCK REPAIRER: Negative for abnormal vaginal bleeding, abnormal vaginal [...] 426 QTC Calculation (Bazett) 428 Calculated P Lowden 30 Calculated R Lowden 19 Calculated T Lowden 6 Impression SINUS RHYTHM WITH 1ST DEGREE [...] which included preparing to see the patient, ykeh-rh-aqpt patient care, completing clinical documentation, obtaining and/or reviewing separately obtained history, performing a medically appropriate examination, and counseling and educating the patient/family/caregiver This is a virtual visit. It required patient-provider interaction for the medical decision making as documented above. SIGNATURE: Phuong Rock APRN.CNP PATIENT NAME: Heidi Joy DATE: January 20, 2024 TIME: 9:16 AM PAGER/CONTACT #: documented in this encounter [facility] 12-19-2023 Telephone encounter Note Called patient to reschedule date for surgery. No answer, left voicemail with call back number. Pippa Gan RN [facility] 12-19-2023 Miscellaneous Notes Called patient to reschedule date for surgery. No answer, left voicemail with call back number. Pippa Gan RN documented in this encounter [facility] 12-11-2023 Instructions Anneliese Bearden MD - 12/11/2023 10:54 AM EDT Take potassium chloride packets as opposed to the capsule (powder is better absorbed) Increase spironolactone to 50 mg twice daily (hopefully will help with the low potassium and the blood pressure) Blood work this Saturday Monitor the blood pressure at home, target in the future <130/80 mmHg documented in this encounter [facility] 12-11-2023 Note [facility] 12-11-2023 History of Present illness Narrative [facility] NEPHROLOGY & HYPERTENSION SERVICE DATE: 12/11/2023 SERVICE [...] which included preparing to see the patient, [id number] patient care, completing clinical documentation, obtaining and/or reviewing separately obtained history, performing a medically appropriate examination, counseling and educating the patient/family/caregiver, ordering medications, tests, or procedures Anneliese Bearden MD Staff Powered Bridge Specialist Pager [phone] December 11, 2023 10:26 AM CC: REFERRING PROVIDER: Mario Sullivan MD PRIMARY CARE PHYSICIAN: Immanuel Kuhn DO documented in this encounter [facility] 12-06-2023 Instructions Bhavna Walters APRN.[facility] - 12/06/2023 9:33 AM EDT PATIENT PREOPERATIVE INSTRUCTIONS Mario Sullivan MD has scheduled you for your procedure at this surgery center: [facility] [place] Scheduling Office: [phone] --[address] [place] [address]. Please read below carefully for your personalized [...] Procedures: - YOU MUST HAVE A RESPONSIBLE COMMERCIAL ROOFING ESTIMATOR TAKE YOU HOME. A EXHIBIT SPECIALIST OR HISTORIC INTERPRETER CANNOT BE MADE A RESPONSIBLE COMMERCIAL ROOFING ESTIMATOR. - We recommend that a responsible person [...] call the Saturday before. Your surgeon s manager plant will tell you what time to call the office. - If you have not reached the departmental manager plant by 5 P.M., call [phone] after 5 P.M. the day before your surgery. Please be aware that emergency situations arise, which may delay or change your surgical time. If this happens, we will notify you as soon as possible and regret any inconvenience. If you already have an Advance Directive, please fax a copy to [phone] or email to for it to be [...] into your chart that day. Bhavna Walters APRN.CHRISTIANA documented in this encounter [facility] 12-06-2023 History and physical note HISTORY [...] large neck Non-male patient STOP-Bang Score: 1 [id number] Score: Age: <65 Sex: female CHF history: No Hypertension history: Yes Stroke/TIA/thromboembolism history: No Vascular disease history: No Diabetes history: Yes [id number] Score: 3 ARISCAT Score: Age: <=50 Preoperative [...] AV Block no history of angina, CHF, [place], cardiac surgery or stents. Denies rest pain, gangrene or revascularization/amputation for PVD. GI: History of Gastric bypass No history of GI symptoms or problems. No history of esophageal varices, recent ascites, or ETOH greater than 2 drinks per day : No difficulty urinating, nocturia > 1 time per night or hematuria, Positive for kidney stones WATCH AND CLOCK REPAIRER: Negative for abnormal vaginal bleeding, abnormal vaginal [...] Heidi Joy DATE: 12/06/2023 TIME: 9:19 AM [facility] 12-06-2023 History and physical note HISTORY [...] large neck Non-male patient STOP-Bang Score: 1 [id number] Score: Age: <65 Sex: female CHF history: No Hypertension history: Yes Stroke/TIA/thromboembolism history: No Vascular disease history: No Diabetes history: Yes [id number] Score: 3 ARISCAT Score: Age: <=50 Preoperative [...] AV Block no history of angina, CHF, [place], cardiac surgery or stents. Denies rest pain, gangrene or revascularization/amputation for PVD. GI: History of Gastric bypass No history of GI symptoms or problems. No history of esophageal varices, recent ascites, or ETOH greater than 2 drinks per day : No difficulty urinating, nocturia > 1 time per night or hematuria, Positive for kidney stones WATCH AND CLOCK REPAIRER: Negative for abnormal vaginal bleeding, abnormal vaginal [...] TIME: 9:19 AM documented in this encounter [facility] 11-19-2023 Miscellaneous Notes Pt want to confirm one or two weeks for being off of work after surgery? documented in this encounter [facility] 11-15-2023 Miscellaneous Notes Called patient: she states she does not have any symptoms. She was advises to go to the ER. She verbalized understanding. Griselda Vann RN Endo [facility] Lab Contacted Nurses 2:09 PM Critical Value Potassium 2.4 received from Lab (Daryl) at 2:05. Notified Jasmyne at 2:11. Griselda Vann RN [facility] documented in this encounter [facility] 11-14-2023 Miscellaneous Notes Images from the [...] MD Clinical Fellow PGY-5 Endocrinology and Metabolism [place] Pager:[phone] documented in this encounter [facility] 10-25-2023 Miscellaneous Notes AVS lateralized to the left adrenal gland with a ratio of 35:1. I recommended laparoscopic left adrenalectomy lateral transabdominal or posterior approach. Will decide on the day of the surgery. Will schedule her surgery. Mario Sullivan MD documented in this encounter [facility] 09-13-2023 Telephone encounter Note Contacted pt, went over results above, pt understood and had no further questions at the time of call [facility] 09-13-2023 Miscellaneous Notes Contacted pt, went over results above, pt understood and had no further questions at the time of call Please let pt know her BP was elevated at office visit today. She should monitor her BP at home and to ER if any increase from her baseline readings, otherwise follow up with PCP documented in this encounter [facility] 09-13-2023 Telephone encounter Note Please let pt know her BP was elevated at office visit today. She should monitor her BP at home and to ER if any increase from her baseline readings, otherwise follow up with PCP [facility] 09-13-2023 History of Present illness Narrative [...] tablet; Refill: 0 documented in this encounter [facility] 09-12-2023 Note [facility] 09-12-2023 History of Present illness Narrative This was a virtual visit. I have communicated my name and active licensure. The patient's identity and physical location were verified at the time of this visit. Either the patient or their legal environmental marketing representative has been informed of the risks and benefits of -- and alternatives to -- treatment through a remote evaluation and consents to proceed with the evaluation remotely. Endocrinology Metabolism [place] [facility] Mario Sullivan M.D. Section of Endocrine Surgery and Advanced Laparoscopic Surgery [address] [place] [address] ENDOCRINE SURGERY NEW CONSULTATION NAME: Heidi Joy CLINIC NO: [id number] : 1990 Surgeon: Dr. Mario Sullivan REFERRING PROVIDER: Vikki Balderrama [id number] [place] [phone] The patient was referred by the above [...] which included preparing to see the patient, [id number] patient care, completing clinical documentation, obtaining and/or reviewing separately obtained history, counseling and educating the patient/family/caregiver, ordering medications, tests, or procedures, communicating with other HCPs (not separately reported), independently interpreting results (not separately reported), communicating results to the patient/family/caregiver, and care coordination (not separately reported). Sincerely, Mario Sullivan MD 09/12/2023 CC: Vikki Balderrama [id number] [place] [phone] documented in this encounter [facility] 09-09-2023 Evaluation note Encounter Date Diagnosis Assessment Notes Sep, Hypokalemia (ICD-10 - E87.6) She has hypertension with hypokalemia and high 24-hour urinary aldosterone level consistent with primary hyperaldosteronism. Her 24-hour urinary potassium may be low due to the critically low serum potassium. She is also reported to have elevated serum aldosterone. She was seen by the endocrine at [facility] and now referred to the [...] - E27.9) Continue follow-up with endocrine at [facility]. Sep, Other Patient was advised due to the primary hyperaldosteronism she can follow-up endocrine. She can refer to our office in future if needed. [email or web address] Other 02-02-2024 Miscellaneous Notes* Addendum Note - [...] Adrenal Mass PATIENT DEMOGRAPHICS Name: Heidi Joy [facility]#: [id number] : 1990 AGE: [age] year old Contact Numbers: Home: (home) Work: There is no work phone number on file. PATIENT PHYSICIAN INFORMATION Referring Doctor: Address: Phone: Mechanical Handyman: Address: Phone: PCP: Immanuel Kuhn [address] [place] [address] PAST TREATMENT Office notes: SEE EPIC Medications: [...] - 340.0 ug/dL 188.1 Imaging Reports: SEE [facility] CD of Images: SEE [facility] FNA: no FNA Slides: N/A Has the patient ever had thyroid or parathyroid surgery before: No Operative Reports: NONE AVAILABLE Pathology Reports: NONE AVAILABLE [facility] Instructions* Patient Instructions* Vikki Balderrama MD [...] to let me know documented [facility] History of Present illness Narrative* Vikki Balderrama MD - 08/20/2023 1:43 PM EST Endocrinology and Metabolism [place] [facility] Visit Note Virtual Visit (Audio/Visual) I have discussed the nature of this visit with the patient which will occur via [facility] (Phone, Virtual Visit) and he agrees to proceed with this interaction . I have communicated my name and active licensure. The patient's identity and physical location wereverified at the time of this visit. Either the patient or their legal environmental marketing representative has been informed of the risks [...] and nephrology. She recently met with a rack worker and was recommended to undergo some work-up. [...] agreed to get the labs done at [facility], I provided her with the lab phone number to make an appointment. Vikki Balderrama MD [facility] Endocrinology and Metabolism [place] [facility] [phone] Medical Decision Making: Problems: Moderate: 1+ chronic illnesses with change Data: Unique source(s) for external note(s) reviewed: 1 Unique test result(s) reviewed: 3+ Unique test(s) ordered: 3+ Medical Decision Making Level: 4 - Moderate documented in this encounterAv[facility] Evaluation note* Encounter Date Diagnosis Assessment Notes Treatment Notes Treatment Clinical Notes Aug, Hypokalemia (ICD-10 - E87.6) It was a pleasure to see Mrs. Joy in our office for evaluation and management of hypokalemia. As you know she has a longstanding hypokalemia and metabolic alkalosis and hypertension. Differential diagnoses are broad and include primary hyperaldosteronism, [place] syndrome, Gettleman syndrome and Bartter syndrome. I [...] of the adrenal nodule with serial imaging. [email or web address] Other 04-03-2023 NoteIn person visit Chief complaint: follow up for prior right frontal glioma MIAMI: 32 y/o woman - she had prior [...] repeat MRI brain w/wout contrast. Ravindra Lema [facility]DMer[facility]-2023 NoteIn person visit Chief complaint: known olidodendroglioma MIAMI: 32 y/o Left handed - she does not work. 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 She had migraines and high [...] after the MRI is completed. Ravindra Lema MDUnTogus VA Medical CenterChief complaint Narrative - ReportedHEIDI JOY is being seen for a consultation for. POC Dr. Benson, [facility] Bariatrics- Bariatric sxMP-[facility] [place] [facility] [address] DO Work Phone: Evaluation + Plan note No data available for this section [facility] Evaluation noteNo assessment information available [facility] Work Phone: Evaluation noteNo InformationNort Museum of Science Other Evaluation note* Diagnosis Adenoma of left adrenal gland- Primary Benign neoplasm of adrenal gland documented in this encounter [facility]* Diagnosis Adenoma of left adrenal gland- Primary Benign neoplasm of adrenal gland documented in this encounter [facility]* Diagnosis Primary hyperaldosteronism (HCC)- Primary Hyperaldosteronism, unspecified Adenoma of left adrenal gland Benign neoplasm of adrenal gland documented in this encounter [facility]* Diagnosis Generalized anxiety disorder (CMS/HCC) Generalized anxiety disorder Bipolar affective disorder, currently depressed, mild (CMS/HCC) Bipolar I disorder, most recent episode (or current) depressed, mild documented in this encounter [facility]* Diagnosis Acute bronchitis, unspecified organism- Primary documented in this encounter [facility]* Diagnosis Adenoma of left adrenal gland- Primary Benign neoplasm of adrenal gland Adenoma of left adrenal gland Benign neoplasm of adrenal gland documented in this encounter [facility]* Diagnosis Primary hyperaldosteronism (HCC)- Primary Hyperaldosteronism, unspecified Adenoma of left adrenal gland Benign neoplasm of adrenal gland documented in this encounter [facility]* Diagnosis Pre-op evaluation- Primary Preoperative examination, [...] Assessment & Plan Note - Bhavna Walters APRN.SCADA TECHNICIAN - 12/06/2023 9:46 AM EDTAssociated Problem(s): History [...] Note - Bhavna Walters APRN.CNP - 12/06/2023 9:35 AM EDTAssociated [...] Imitrex as needed documented [facility] this encounter [facility]* Diagnosis Chronic hypokalemia- Primary Hypopotassemia Adenoma of left adrenal gland Benign neoplasm of adrenal gland Primary hyperaldosteronism (HCC) Hyperaldosteronism, unspecified Uncontrolled hypertension Unspecified essential hypertension Hypertension secondary to endocrine disorders Other secondary hypertension, unspecified History of bariatric surgery Bariatric surgery status documented in this encounter [facility] note* Diagnosis Chronic hypokalemia- Primary Hypopotassemia documented in this encounter [facility] note* Diagnosis Pre-op evaluation- Primary Preoperative examination, [...] of pre-op instructions. documented in this encounter [facility]* Diagnosis Chronic hypokalemia- Primary Hypopotassemia Primary hyperaldosteronism (HCC) Hyperaldosteronism, unspecified Uncontrolled hypertension Unspecified essential hypertension documented in this encounter [facility]* Diagnosis Secondary adrenal insufficiency (HCC)- Primary Glucocorticoid deficiency Primary hyperaldosteronism (HCC) Hyperaldosteronism, unspecified Adenoma of left adrenal gland Benign neoplasm of adrenal gland documented in this encounter [facility]* Diagnosis Primary hyperaldosteronism (HCC)- Primary Hyperaldosteronism, unspecified documented in this encounter [facility]* Diagnosis Pre-op evaluation- Primary Preoperative examination, [...] Primary Glucocorticoid deficiency documented in this encounter [facility]* Diagnosis Pre-op evaluation- Primary Preoperative examination, [...] Primary Glucocorticoid deficiency documented [facility] this encounter [facility]* Diagnosis Generalized anxiety disorder (CMS/HCC) Generalized anxiety disorder Bipolar affective disorder, currently depressed, mild (CMS/HCC) Bipolar I disorder, most recent episode (or current) depressed, mild [facility]* Diagnosis Anxiety Anxiety state, unspecified documented [facility] encounter [facility]* Diagnosis Bipolar affective disorder, currently depressed, mild ([facility]/HCC)- Primary Bipolar I disorder, most recent episode (or current) depressed, mild LUISITO (generalized anxiety disorder) ([facility]) Generalized anxiety disorder Irritable bowel syndrome with both constipation and diarrhea Anastomotic ulcer Gastrojejunal ulcer, unspecified as acute or chronic, without mention of hemorrhage, perforation, or obstruction documented [facility]* Diagnosis , unspecified gestational age- Primary Missed menses documented [facility]* Diagnosis Generalized anxiety disorder ([facility]/HCC) Generalized anxiety disorder Bipolar affective disorder, currently depressed, mild ([facility]) Bipolar I disorder, most recent episode (or current) depressed, mild documented [facility]* Diagnosis Viral illness- Primary Unspecified viral infection, in conditions classified elsewhere and of unspecified site Pharyngitis, unspecified etiology documented [facility]* Diagnosis Generalized anxiety disorder ([facility]/HCC) Generalized anxiety disorder Bipolar affective disorder, currently depressed, mild ([facility]) Bipolar I disorder, most recent episode (or current) depressed, mild [facility]* Diagnosis Encounter for supervision of normal first in first trimester Encounter for drug screening care, antepartum Encounter for screening for chromosomal anomalies Screening for genetic disease carrier status documented in this encounter [facility] HealthcareHistory general [...] 2 DIALBETES MYRA LITUS WITHOUT COMPLICATION, 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 CURRENT USE OF INSULIN Medical History [...] GASTRIC BYPASS 12/2022 Hospitalization History SEE ABOVE [email or web address] Other History general Narrative - Reported* Type [...] 2 DIALBETES MYRA LITUS WITHOUT COMPLICATION, WITHOUT JAIL CURRENT USE OF INSULIN Medical History MICROSYTIC ANEMIA Medical History BIPOLAR AFFECTIVE DISORDER, CURR ENTLY DEPRESSED, MILD Medical History CANNABIS ABUSE Medical History MALIGNANT NEOPLASM OF BRAIN Medical History Potassium infusions weekly at [facility] Surgical History brain tumor removed malignant 0 Surgical History DILATION AND CURETTAGE ESOPHAGO GASTRODUODENOSCOPY Surgical History INGROWN TOENAIL Surgical History ANKLE SCOPE PLANTAR FASCIOTOMY 2017 Surgical History RIGHT FRONTAL LOBEECTOMY 2018 Surgical History ENDOSCOPIC PLANTAR FASCIOTOMY 2 023 Surgical History GASTRIC BYPASS 12/2022 Hospitalization History SEE ABOVE Hospitalization History Sue for low potassi um 08/2023 [email or web address] Other History of Present illness Narrative* Patient [...] medication 9 4. Follow-up in 9 months [facility] [address] DO Work Phone: Hospital Discharge instructions Additional Instructions Keep your appt with [facility] Work Phone: Hospital Discharge instructions No data available for this section [facility] Progress note No data available for this section [facility] Reason for referral (narrative)* Outpatient Procedure (Routine) - Pending Review Specialty Diagnoses / Procedures Referred By Omari t Referred To [facility] Diagnoses Pre-op evaluation Iron deficiency Migraine with aura and without status migrainosus, not intractable Procedures ECG COMPLETE ECG ROUTINE ECG W/LEAST 12 LDS W/I&R Bhavna Walters APRN.CNP [address] [place] [address] Heart And Vascular [place] [address] [place] [id number] Referral ID Status Reason Start Date Expiration Date Visits Requested Visits Authorized [id number] Pending Review Auto-Generat ed Referral 12/06/2023 12/05/2024 1 1 [facility] Summary Purpose Family History No Family History Records Found Relationship Condition Age at Onset Recorded Date/T janki father Hypertension Unknown Heart disease Unknown Diabetes mellitus Unknown family member Family history of other condition Unknow n mother Hypertension Unknown Advance Directives No Advanced Directives Records Found [...] PACC - PRE ANESTHESIA CONSULTATION CLINIC OFFICE/OUTPATIENT [facility] 60 MINUTES Natasha Chase MD [address] [place] [address] Referral ID Status Reason Start Date Expiration Date Visits Requested Visits Authorized [id number] Authorized PCP Requested Referral 11/12/2023 11/04/2024 1 1 Additional Source Comments INFORMATION SOURCE (unrecogn ized section and content) DATE CREATED AUTHOR 01/29/2018 [facility] DATE CREATED AUTHOR AUTHOR'S ORGANIZ ATION 03/21/2020 [facility] DATE CREATED AUTHOR AUTHOR'S ORGANIZ ATION 10/06/2021 [facility] dical Specialist DATE CREATED AUTHOR AUTHOR'S ORGANIZ ATION 06/07/2022 [facility] DATE CREATED AUTHOR AUTHOR'S ORGANIZ ATION 11/19/2022 [facility] DATE CREATED AUTHOR AUTHOR'S ORGANIZ ATION 12/14/2022 [facility] DATE CREATED AUTHOR AUTHOR'S ORGANIZ ATION 03/19/2023 [facility] DATE CREATED AUTHOR AUTHOR'S ORGANIZ ATION 03/02/2024 [facility] DATE CREATED AUTHOR AUTHOR'S ORGANIZ ATION 03/29/2024 [facility] DATE CREATED AUTHOR AUTHOR'S ORGANIZ ATION 04/14/2024 [facility] DATE CREATED AUTHOR AUTHOR'S ORGANIZ ATION 05/06/2024 [facility] DATE CREATED AUTHOR AUTHOR'S ORGANIZ ATION 06/06/2024 [facility] dical Specialists EPIC Care Teams (unrecognized sec tion and content) Team Status: Inactive Member Role Status Dates Immanuel Kuhn , Primary Care Provider Active Tiarra Prakash NP-C Attending Provider Active Team Status: Active Member Role Status Dates Immanuel Kuhn DO Primary Care Provider Active Team Status: Inactive Member Role Status Dates Immanuel Kuhn DO Primary Care Provider Active Manasa Rhodes DPM Attending Provider Active Lockstitch Coat Joiner Relationship Specialty Start Date End Date Immanuel Kuhn DO [address] [place] [address] PCP - General Family Medicine 10/23/12 Esther Angeles MD [address] [place] [phone] Referring Obstetrics 01/28/20 Татьяна Carter, PA-C [address] [place] [address] Referring Physician Haulpak Driver 08/08/23 Team Status: Inactive Member Role Status Dates Zara Ralph MD Attending Provider Active Start : August 19, 2023 End: August 19, 2023 Team Status: Inactive Member Role Status Dates Immanuel Kuhn DO Primary Care Provider Active St art: August 30, 2023 End: August 30, 2023 Zara Ralph MD Attending Provider Active Start : August 30, 2023 End: August 30, 2023 Lockstitch Coat Joiner Relationship Specialty Start Date End Date Immanuel Kuhn DO [address] [place] [address] PCP - General Family Medicine 10/23/12 Esther Angeles MD [address] [place] [address] Referring Obstetrics 01/28/20 Татьяна Carter, PA-C [address] [place] [address] Referring Physician Haulpak Driver 08/08/23 Lockstitch Coat Joiner Relationship Specialty Start Date End Date Immanuel Kuhn DO [address] [place] [address] PCP - General Family Medicine 10/23/12 Esther Angeles MD [address] [place] [address] Referring Obstetrics 01/28/20 Татьяна Carter, PA-C [address] [place] [address] Referring Physician Haulpak Driver 08/08/23 Lockstitch Coat Joiner Relationship Specialty Start Date End Date Immanuel Kuhn DO [address] [place] [address] PCP - [facility] 12/25/22 Татьяна Carter PA [address] [place] [address] PCP - [facility] 02/02/23 Lockstitch Coat Joiner Relationship Specialty Start Date End Date Immanuel Kuhn DO [address] [place] [address] PCP - General Family [facility] 10/23/12 Esther Angeles MD [address] [place] [address] Referring Obstetrics 01/28/20 Татьяна Carter, PA-C [address] [place] [address] Referring Physician Haulpak Driver 08/08/23 Lockstitch Coat Joiner Relationship Specialty Start Date End Date Immanuel Kuhn DO [address] [place] [address] PCP - General [facility] 12/25/22 Татьяна Carter PA [address] [place] [address] PCP - [facility] 02/02/23 Lockstitch Coat Joiner Relationship Specialty Start Date End Date Immanuel Kuhn DO [address] [place] [address] PCP - General [facility] 12/25/22 Татьяна Carter PA [address] [place] [address] PCP - [facility] 02/02/23 Lockstitch Coat Joiner Relationship Specialty Start Date End Date Immanuel Kuhn DO [address] [place] [address] PCP - General Family [facility] 12/25/22 Татьяна Carter PA [address] [place] [address] PCP - [facility] 02/02/23 Lockstitch Coat Joiner Relationship Specialty Start Date End Date Immanuel Kuhn DO [address] [place] [address] PCP - General Family Medicine 10/23/12 Esther Angeles MD [address] [place] [phone] Referring Obstetrics 01/28/20 CarterТатьяна PA-C [address] [place] [address] Referring Physician Haulpak Driver 08/08/23 Lockstitch Coat Joiner Relationship Specialty Start Date End Date Immanuel Kuhn DO [address] [place] [address] PCP - General Family Medicine 10/23/12 Esther Angeles MD [address] [place] [address] Referring Obstetrics 01/28/20 Татьяна Carter PA-C [address] [place] [address] Referring Physician Haulpak Driver 08/08/23 Lockstitch Coat Joiner Relationship Specialty Start Date End Date Immanuel Kuhn DO [address] [place] [address] PCP - General Family Medicine 10/23/12 Esther Angeles MD [address] [place] [address] Referring Obstetrics 01/28/20 Татьяна Carter PA-C [address] [place] [address] Referring Physician Haulpak Driver 08/08/23 Lockstitch Coat Joiner Relationship Specialty Start Date End Date Immanuel Kuhn DO [address] [place] [address] PCP - General Family Medicine 10/23/12 Esther Angeles MD [address] [place] [address] Referring Obstetrics 01/28/20 Татьяна Carter PA-C [address] [place] [address] Referring Physician Haulpak Driver 08/08/23 Lockstitch Coat Joiner Relationship Specialty Start Date End Date Immanuel Kuhn DO [address] [place] [address] PCP - General Family Medicine 10/23/12 Esther Angeles MD [address] [place] [address] Referring Obstetrics 01/28/20 Татьяна Carter PA-C [address] [place] [address] Referring Physician Haulpak Driver 08/08/23 Lockstitch Coat Joiner Relationship Specialty Start Date End Date Immanuel Kuhn DO [address] [place] [address] PCP - General Family Medicine 10/23/12 Esther Angeles MD [address] [place] [address] Referring Obstetrics 01/28/20 Татьяна Carter PA-C [address] [place] [address] Referring Physician Haulpak Driver 08/08/23 Lockstitch Coat Joiner Relationship Specialty Start Date End Date Immanuel Kuhn DO [address] [place] [address] PCP - General Family Medicine 10/23/12 Esther Angeles MD [address] [place] [address] Referring Obstetrics 01/28/20 Татьяна Carter PA-C [address] [place] [address] Referring Physician Haulpak Driver 08/08/23 Lockstitch Coat Joiner Relationship Specialty Start Date End Date Immanuel Kuhn DO [address] [place] [address] PCP - General Family Medicine 10/23/12 Esther Angeles MD [address] [place] [address] Referring Obstetrics 01/28/20 Татьяна Carter PA-C [address] [place] [address] Referring Physician Haulpak Driver 08/08/23 Lockstitch Coat Joiner Relationship Specialty Start Date End Date Immanuel Kuhn DO [address] [place] [address] PCP - General Family Medicine 10/23/12 Esther Angeles MD [address] [place] [address] Referring Obstetrics 01/28/20 Татьяна Carter PA-C [address] [place] [address] Referring Physician Haulpak Driver 08/08/23 Lockstitch Coat Joiner Relationship Specialty Start Date End Date Immanuel Kuhn DO [address] [place] [address] PCP - General Family Medicine 10/23/12 Esther Angeles MD [address] [place] [address] Referring Obstetrics 01/28/20 Татьяна Carter PA-C [address] [place] [address] Referring Physician Haulpak Driver 08/08/23 Lockstitch Coat Joiner Relationship Specialty Start Date End Date Immanuel Kuhn DO [address] [place] [address] PCP - General Family Medicine 10/23/12 Esther Angeles MD [address] [place] [phone] Referring Obstetrics 01/28/20 Татьяна Carter PA-C [address] [place] [address] Referring Physician Haulpak Driver 08/08/23 Lockstitch Coat Joiner Relationship Specialty Start Date End Date Immanuel Kuhn DO [address] [place] [address] PCP - General Family Medicine 10/23/12 Esther Angeles MD [address] [place] [address] Referring Obstetrics 01/28/20 Татьяна Carter PA-C [address] [place] [address] Referring Physician Haulpak Driver 08/08/23 Lockstitch Coat Joiner Relationship Specialty Start Date End Date Immanuel Kuhn DO [address] [place] [address] PCP - General Family Medicine 10/23/12 Esther Angeles MD [address] [place] [address] Referring Obstetrics 01/28/20 Татьяна Carter PA-C [address] [place] [address] Referring Physician Haulpak Driver 08/08/23 Team Status: Inactive Member Role Status Dates Immanuel Kuhn DO Primary Care Provider Active St art: February 21, 2024 End: February 21, 2024 Eliot Dawson APRN Emergency Provider Active Start: February 21, 2024 End: February 21, 2024 Lockstitch Coat Joiner Relationship Specialty Start Date End Date Immanuel Kuhn DO [address] [place] [address] PCP - General Family Medicine 10/23/12 Esther Angeles MD [address] [place] [address] Referring Obstetrics 01/28/20 Татьяна Carter PA-C [address] [place] [address] Referring Physician Haulpak Driver 08/08/23 Lockstitch Coat Joiner Relationship Specialty Start Date End Date Immanuel Kuhn DO [address] [place] [address] PCP - General Family Medicine 10/23/12 Esther Angeles MD [address] [place] [address] Referring Obstetrics 01/28/20 Татьяна Carter, ANDRIY-C [address] [place] [address] Referring Physician Haulpak Driver 08/08/23 Lockstitch Coat Joiner Relationship Specialty Start Date End Date Immanuel Kuhn DO [address] [place] [address] PCP - [facility] 12/25/22 Татьяна Carter, PA [address] [place] [address] [facility] 02/03/24 Lockstitch Coat Joiner Relationship Specialty Start Date End Date Immanuel Kuhn DO [address] [place] [address] PCP - General [facility] 12/25/22 Татьяна Carter PA [address] [place] [address] PCP - [facility] 02/03/24 Lockstitch Coat Joiner Relationship Specialty Start Date End Date Immanuel Kuhn DO [address] [place] [address] PCP - [facility] 12/25/22 Татьяна Carter PA [address] [place] [address] PCP - [facility] 02/03/24 Lockstitch Coat Joiner Relationship Specialty Start Date End Date Immanuel Kuhn, DO [address] [place] [address] PCP - General Family [facility] 12/25/22 Татьяна Carter, PA [address] [place] [address] PCP - [facility] 02/03/24 Lockstitch Coat Joiner Relationship Specialty Start Date End Date Immanuel Kuhn DO [address] [place] [address] PCP - General Family [facility] 12/25/22 Татьяна Carter, PA [address] [place] [address] PCP - [facility] 02/03/24 Lockstitch Coat Joiner Relationship Specialty Start Date End Date mImanuel Kuhn, DO [address] [place] [address] PCP - General Family [facility] 12/25/22 Татьяна Carter, PA [address] [place] [address] PCP - [facility] 02/03/24 Lockstitch Coat Joiner Relationship Specialty Start Date End Date Immanuel Kuhn DO [address] [place] [address] PCP - General Family [facility] 12/25/22 Татьяна Carter, PA [address] [place] [address] [facility] - [facility] 02/03/24 Lockstitch Coat Joiner Relationship Specialty Start Date End Date Immanuel Kuhn DO [address] [place] [address] PCP - [facility] 12/25/22 Татьяна Carter, PA [address] [place] [address] PCP - [facility] 02/03/24 Lockstitch Coat Joiner Relationship Specialty Start Date End Date Immanuel Kuhn DO [address] [place] [address] PCP - [facility] 12/25/22 Татьяна Carter, PA [address] [place] [address] PCP - [facility] 02/03/24 Lockstitch Coat Joiner Relationship Specialty Start Date End Date Immanuel Kuhn DO [address] [place] [address] PCP - [facility] 12/25/22 Татьяна Carter, PA [address] [place] [address] PCP - [facility] 02/03/24 Goals (unrecognized section and content) Goals [...] for 09/12 at 11AM per . Sent [employer] message and mailed out appointment reminder Reason Comments Consult FACE SHEET Reason Comments Adrenal Specialty Diagnoses / Procedures Referred By Contac t Referred To Contact Diagnoses Adenoma of left adrenal gland Procedures CONSULT TO ENDOCRINE SURGERY OFFICE/OUTPATIENT [facility] [address] [place] [address] [place] [address] Referral ID Status Reason Start Date Expiration Date V isits Requested Visits Authorized [id number] Closed PCP Requested Referral 09/04/2023 09/03/2024 1 1 Reason Comments Follow-up Reason Comments Photo Specialist - Other Reason Comments OR [facility] 12/10/23 [...] OR COM ROBOTIC LAPAROSCOPIC LEFT TRANSABDOMINAL ADRENALECTOMY [facility] [address] [place] [address] Referral ID Status Reason Start Date Expiration Date Visits Re quested Visits Authorized [id number] 1 1 Reason Comments Anesthesia Consult Reason [...] or prosecute any alcohol or drug abuse patient.[facility] the event this information is protected by the Federal Confidentiality of Alcohol and Drug Abuse Patient Records regulations: The Federal rules restrict any use of the information to criminally investigate or prosecute any alcohol or drug abuse patient.[facility] HospitalIn the event this information is protected by the Federal Confidentiality of Alcohol and Drug Abuse Patient Records regulations: The Federal rules restrict any use of the information to criminally investigate or prosecute any alcohol or drug abuse patient.[facility] HospitalIn the event this information is protected by the Federal Confidentiality of Alcohol and Drug Abuse Patient Records regulations: The Federal rules restrict any use of the information to criminally investigate or prosecute any alcohol or drug abuse patient.[facility] HospitalIn the event this information is protected by the Federal Confidentiality of Alcohol and Drug Abuse Patient Records regulations: The Federal rules restrict any use of the information to criminally investigate or prosecute any alcohol or drug abuse patient.[facility] HospitalIn the event this information is protected by the Federal Confidentiality of Alcohol and Drug Abuse Patient Records regulations: The Federal rules restrict any use of the information to criminally investigate or prosecute any alcohol or drug abuse patient.[facility] HospitalIn the event this information is protected by the Federal Confidentiality of Alcohol and Drug Abuse Patient Records regulations: The Federal rules restrict any use of the information to criminally investigate or prosecute any alcohol or drug abuse patient.[facility] HospitalIn the event this information is protected by the Federal Confidentiality of Alcohol and Drug Abuse Patient Records regulations: The Federal rules restrict any use of the information to criminally investigate or prosecute any alcohol or drug abuse patient.[facility] HospitalIn the event this information is protected by the Federal Confidentiality of Alcohol and Drug Abuse Patient Records regulations: The Federal rules restrict any use of the information to criminally investigate or prosecute any alcohol or drug abuse patient.[facility] HospitalIn the event this information is protected by the Federal Confidentiality of Alcohol and Drug Abuse Patient Records regulations: The Federal rules restrict any use of the information to criminally investigate or prosecute any alcohol or drug abuse patient.[facility] HospitalIn the event this information is protected by the Federal Confidentiality of Alcohol and Drug Abuse Patient Records regulations: The Federal rules restrict any use of the information to criminally investigate or prosecute any alcohol or drug abuse patient.[facility] HospitalIn the event this information is protected by the Federal Confidentiality of Alcohol and Drug Abuse Patient Records regulations: The Federal rules restrict any use of the information to criminally investigate or prosecute any alcohol or drug abuse patient.[facility] HospitalIn the event this information is protected by the Federal Confidentiality of Alcohol and Drug Abuse Patient Records regulations: The Federal rules restrict any use of the information to criminally investigate or prosecute any alcohol or drug abuse patient.[facility] HospitalIn the event this information is protected by the Federal Confidentiality of Alcohol and Drug Abuse Patient Records regulations: The Federal rules restrict any use of the information to criminally investigate or prosecute any alcohol or drug abuse patient.[facility] HospitalIn the event this information is protected by the Federal Confidentiality of Alcohol and Drug Abuse Patient Records regulations: The Federal rules restrict any use of the information to criminally investigate or prosecute any alcohol or drug abuse patient.[facility] HospitalIn the event this information is protected by the Federal Confidentiality of Alcohol and Drug Abuse Patient Records regulations: The Federal rules restrict any use of the information to criminally investigate or prosecute any alcohol or drug abuse patient.[facility] HospitalIn the event this information is protected by the Federal Confidentiality of Alcohol and Drug Abuse Patient Records regulations: The Federal rules restrict any use of the information to criminally investigate or prosecute any alcohol or drug abuse patient.[facility] HospitalIn the event this information is protected by the Federal Confidentiality of Alcohol and Drug Abuse Patient Records regulations: The Federal rules restrict any use of the information to criminally investigate or prosecute any alcohol or drug abuse patient.[facility] HospitalIn the event this information is protected by the Federal Confidentiality of Alcohol and Drug Abuse Patient Records regulations: The Federal rules restrict any use of the information to criminally investigate or prosecute any alcohol or drug abuse patient.[facility] HospitalIn the event this information is protected by the Federal Confidentiality of Alcohol and Drug Abuse Patient Records regulations: The Federal rules restrict any use of the information to criminally investigate or prosecute any alcohol or drug abuse patient.[facility] HospitalIn the event this information is protected by the Federal Confidentiality of Alcohol and Drug Abuse Patient Records regulations: The Federal rules restrict any use of the information to criminally investigate or prosecute any alcohol or drug abuse patient.[facility] HospitalIn the event this information is protected by the Federal Confidentiality of Alcohol and Drug Abuse Patient Records regulations: The Federal rules restrict any use of the information to criminally investigate or prosecute any alcohol or drug abuse patient.[facility] HospitalIn the event this information is protected by the Federal Confidentiality of Alcohol and Drug Abuse Patient Records regulations: The Federal rules restrict any use of the information to criminally investigate or prosecute any alcohol or drug abuse patient.[facility] HospitalIn the event this information is protected by the Federal Confidentiality of Alcohol and Drug Abuse Patient Records regulations: The Federal rules restrict any use of the information to criminally investigate or prosecute any alcohol or drug abuse patient.[facility] HospitalIn the event this information is protected by the Federal Confidentiality of Alcohol and Drug Abuse Patient Records regulations: The Federal rules restrict any use of the information to criminally investigate or prosecute any alcohol or drug abuse patient.[facility] FOR RECORDS PERTAINING TO PATIENTS WHO [...] BE BASED ON THE PRIMARY CLINICAL RECORDS. [facility]. provides no warranty or guarantee of the accuracy or completeness of information in this document.
[2024-06-06] MEDS: ACETAMINOPHEN 325 MG TABLET 650 MG PO (15:43)
--- NOTE | 2024-06-06 15:52 | ED.PREGNANC1 ---
HPI - General Chief complaint: Vaginal Bleeding Stated complaint: CRAMPING AND BLEEDING 8WEEKS Time Seen by Provider: 06/06/24 15:03 Mode of arrival: walk-in History of Present Illness HPI Narrative: The patient was just evaluated yesterday for similar presentation she mentioned that the bleeding did not increase right now significantly but apparently the patient had this misunderstanding that the RhoGAM shot might stop the bleeding The patient denies any other complaints she mentioned that the bleeding only covered may be 1 or 2 pads today at the maximum and it was only streaks but she does have some suprapubic cramping Related Data Home Medications ?Medication ?Instructions ?Recorded ?Confirmed buspirone 10 mg tablet 10 mg PO .amhs 08/23/23 01/23/24 lamotrigine 150 mg tablet 150 mg PO Q12H 08/23/23 01/23/24 lurasidone 60 mg tablet 60 mg PO .QD 08/23/23 01/23/24 magnesium oxide 400 mg (241.3 mg 400 mg PO .qd 08/23/23 01/23/24 magnesium) tablet Previous Rx's ?Medication ?Instructions ?Recorded amlodipine 10 mg tablet 10 mg PO DAILY #30 tabs 08/24/23 potassium chloride 20 mEq 20 meq PO BID #60 tabs 08/24/23 tablet,extended release(part/cryst) potassium chloride 20 mEq oral 40 meq PO DAILY 5 days #5 ea 11/16/23 packet Allergies Allergy/AdvReac Type Severity Reaction Status Date / Time No Known Drug Allergies Allergy Verified 06/05/24 17:23 Review of Systems ROS Status of ROS 10 or more systems reviewed and unremarkable except as noted in history and below [facility] Medical History (Updated 06/06/24 @ 15:29 by Jessie Mahoney MD) Left adrenal mass ?E27.8 - Other specified disorders of adrenal gland (ICD-10) Acute hypokalemia ?E87.6 - Hypokalemia (ICD-10) Brain tumor ?D49.6 - Neoplasm of unspecified behavior of brain (ICD-10) Plantar fasciitis of left foot ?M72.2 - Plantar fascial fibromatosis (ICD-10) Plantar fasciitis of right foot ?M72.2 - Plantar fascial fibromatosis (ICD-10) Surgical History (Updated 08/27/23 @ 00:00 by ) History of gastric bypass ?Z98.84 - Bariatric surgery status (ICD-10) Bariatric surgery status ?Z98.84 - Bariatric surgery status (ICD-10) Family History (Updated 08/23/23 @ 20:41 by Joan Abdalla) Mother Family history of cancer Family history of diabetes mellitus Brother Family history of diabetes mellitus Father Family history of diabetes mellitus Family history of hypertension Family history of myocardial infarction Social History (Updated 08/23/23 @ 20:44 by Joan Abdalla) Smoking status: Current every day smoker Second hand tobacco smoke exposure: No Non-prescribed substance use: denies use Previous occupational history: unemployed Known occupational exposures/hazards: No Highest level of school completed/degree received: high school graduate Do you want help with school or training: No Are you now , , , , never or living with a partner: never In a typical week, how many times do you talk on the telephone with family, friends, or neighbors: 3 or more times per week How often do you get together with friends or relatives: once per week How often do you attend episcopalian or restorationist services: never Do you belong to any clubs or organizations such as episcopalian groups unions, [employer] or athletic groups, or school groups: no Total score: 1 Score interpretation: A score of less than or equal to 1 indicates the most socially isolated. Little interest or pleasure in doing things: not at all Feeling down, depressed, or hopeless: not at all Feel stressed/tense/nervous/anxious/difficulty sleeping: very much Life stressors: unknown source of stress Due to disability, difficulty making decisions: No Do you think of yourself as: straight/heterosexual Gender Identity: female Exam Narrative Exam Narrative: Nurses notes and vital signs reviewed and patient is not hypoxic. General: Well-appearing and in no apparent distress. Skin: Warm, dry, no pallor noted. No rash. Head: Normocephalic, atraumatic. Neck: Supple, non-tender. Eye: Pupils are equal, round and EOMI. No scleral icterus. Ears, Nose, Mouth, and Throat: TM are clear, no nasal mucosal hypertrophy. Oral mucosa is moist, no posterior oropharynx erythema, uvula is mid-line Cardiovascular: Regular Rate and Rhythm without murmur, gallop or rub. Respiratory: No accessory muscle use or respiratory distress. Lungs are clear to auscultation, no wheezing, rales or rhonchi Chest Wall: no tenderness Back: No midline thoracic or lumbar vertebral tenderness. No CVA tenderness Musculoskeletal: normal ROM, no calf or popliteal tenderness, no lower extremity edema/swelling GI: Abdomen is soft, non-distended. Normal bowel sounds. No masses appreciated. No tenderness to palpation. No rebound, guarding, or rigidity noted. Neurological: A&O x4. No cranial nerve dysfunction observed. No truncal ataxia. Moves all extremities. Sensation intact. Psychiatric: Cooperative and interactive. Normal mood and affect. Constitutional Vital Signs, click to edit/add: Last Vital Signs Temp 98.3 F 06/06/24 14:58 Pulse 84 06/06/24 14:58 Resp 18 06/06/24 14:58 BP 173/99 H 06/06/24 14:58 Pulse Ox 96 06/06/24 14:58 O2 Del Method Room Air 06/06/24 14:58 Course Vital Signs Vital signs: Vital Signs Temperature 98.3 F 06/06/24 14:58 Pulse Rate 84 06/06/24 14:58 Respiratory Rate 18 06/06/24 14:58 Blood Pressure 173/99 H 06/06/24 14:58 Pulse Oximetry 96 06/06/24 14:58 Oxygen Delivery Method Room Air 06/06/24 14:58 Temperature 98.3 F 06/06/24 14:58 Pulse Rate 84 06/06/24 14:58 Respiratory Rate 18 06/06/24 14:58 Blood Pressure 173/99 H 06/06/24 14:58 Pulse Oximetry 96 06/06/24 14:58 Oxygen Delivery Method Room Air 06/06/24 14:58 MDM - OB/Uterine Contractions MDM Narrative Medical decision making narrative: The patient have a intrauterine on ultrasound yesterday and right now with the fact that she had threatened miscarriage I did explain to her all her concerns she understand right now that she will be coming back in case of any increased bleeding that is showing any significant blood loss or any new other complaint Otherwise the patient to continue to take Tylenol for pain as she mentioned that the pain is not that severe and she will follow-up with her OB doctor within a week Discharge Plan Discharge Chief Complaint: Vaginal Bleeding Clinical Impression: Threatened miscarriage Patient Disposition: Home, Self-Care Time of Disposition Decision: 15:31 Condition: Good Prescriptions / Home Meds: No Action buspirone 10 mg tablet 10 mg PO .amhs lamotrigine 150 mg tablet 150 mg PO Q12H lurasidone 60 mg tablet 60 mg PO .QD magnesium oxide 400 mg (241.3 mg magnesium) tablet 400 mg PO .qd amlodipine 10 mg tablet 10 mg PO DAILY Qty: 30 0RF potassium chloride 20 mEq tablet,ER particles/crystals 20 meq PO BID Qty: 60 0RF potassium chloride 20 mEq packet 40 meq PO DAILY 5 Days Qty: 5 0RF Print Language: American Instructions: Threatened Miscarriage (ED) Referrals: Dave Harp DO [Physician] - 1 week PAUL KIRBY [Primary Care Provider] - 1 week
== END 2024-06-06 15:55 | disposition home or self-care (01) ==
PROVIDERS: Emergency Provider Emergency Medicine; PCP Family Medicine
DX: O20.0 Threatened abortion (principal); Z3A.08 8 weeks gestation of pregnancy; O99.331 Smoking (tobacco) complicating pregnancy, first trimester; O99.841 Bariatric surgery status complicating pregnancy, first trimester; F17.200 Nicotine dependence, unspecified, uncomplicated
CPT/HCPCS: 99282

== ENCOUNTER 2025-02-01 19:23 | Emergency (ER) | payer OTHER, SELFPAY ==
[2025-02-01 19:31] VITALS: BP 160/91; PULSE 81; TEMP 36.6; O2SAT 100; BMI 28.2
--- NOTE | 2025-02-01 19:43 | ED_ITS ---
HPI HPI - General Adult General Chief complaint: Weakness Stated complaint: LOW IRON, NOT FEELING WELL Time Seen by Provider: 02/01/25 19:29 Source: patient Mode of arrival: walk-in Limitations: no limitations History of Present Illness HPI narrative: This 34-year-old female presents with chief complaint of generalized weakness. She states that she has a history of low iron levels and is on iron supplementation. She states the last time her iron levels were checked a month or so ago they had still not come up. She has had bariatric surgery in the past and feels that this is the reason why her iron is not being absorbed by her body. Her physicians have suggested iron infusion but she states that they are waiting for approval from the insurance company. Patient used to be diabetic until her bariatric surgery and is not on hypoglycemics anymore. She had removal of an adrenal adenoma last year which was causing cortisol level imbalance. She has also had peptic ulcer disease and is on Pepcid and a PPI. She reports generalized headaches because of her anemia and has missed a number of days of work because she has not felt well. Related Data Home Medications ?Medication ?Instructions ?Recorded ?Confirmed buspirone 10 mg tablet 10 mg PO .amhs 08/23/2301/04 lamotrigine 150 mg tablet 150 mg PO Q12H 08/23/2301/04 lurasidone 60 mg tablet 60 mg PO .QD 08/23/23 magnesium oxide 400 mg (241.3 mg 400 mg PO .qd 4 01/23/24 magnesium) tablet famotidine 40 mg tablet mg 02/01/25 ferrous gluconate 324 mg (38 mg mg 02/01/25 iron) tablet gabapentin 400 mg capsule mg 02/01/25 omeprazole 40 mg capsule,delayed mg 02/01/25 release Previous Rx's ?Medication ?Instructions ?Recorded potassium chloride 20 mEq 20 meq PO BID #60 tabs 08/24 tablet,extended release(part/cryst) potassium chloride 20 mEq oral 40 meq PO DAILY 5 days #5 ea 11/16/23 packet Allergies Allergy/AdvReac Type Severity Reaction Status Date / Time No Known Drug Allergies Allergy Verified 06/05/24 17:23 Opioid HPI Opioid Management Most Recent Opioid Data: Last Pain Scale 6 06/06/24, 15:43 Review of Systems ROS Status of ROS 10 or more systems reviewed and unremark able except as noted in history and below [facility] Medical History Left adrenal mass ?E27.8 - Other specified disorders of adrenal gland (ICD-10) Acute hypokalemia ?E87.6 - Hypokalemia (ICD-10) Brain tumor ?D49.6 - Neoplasm of unspecified behavior of brain (ICD-10) Plantar fasciitis of left foot ?M72.2 - Plantar fascial fibromatosis (ICD-10) Plantar fasciitis of right foot ?M72.2 - Plantar fascial fibromatosis (ICD-10) Surgical History History of gastric bypass ?Z98.84 - Bariatric surgery status (ICD-10) Bariatric surgery status ?Z98.84 - Bariatric surgery status (ICD-10) Family History Mother Family history of cancer Family history of diabetes mellitus Brother Family history of diabetes mellitus Father Family history of diabetes mellitus Family history of hypertension Family history of myocardial infarction Social History Smoking status: Current every day smoker Second hand tobacco smoke exposure: No Non-prescribed substance use: denies use Previous occupational history: unemployed Known occupational exposures/hazards: No Highest level of school completed/degree received: high school graduate Do you want help with school or training: No Are you now , , , , never or living with a partner: never In a typical week, how many times do you talk on the telephone with family, friends, or neighbors: 3 or more times per week How often do you get together with friends or relatives: once per week How often do you attend synagogue or judaism services: never Do you belong to any clubs or organizations such as synagogue groups unions, fraternal or athletic groups, or school groups: no Total score: 1 Score interpretation: A score of less than or equal to 1 indicates the most socially isolated. Little interest or pleasure in doing things: not at all Feeling down, depressed, or hopeless: not at all Feel stressed/tense/nervous/anxious/difficulty sleeping: very much Life stressors: unknown source of stress Due to disability, difficulty making decisions: No Do you think of yourself as: straight/heterosexual Gender Identity: female Exam Narrative Exam Narrative: Patient's vitals are stable. HEENT exam is normal to inspection. There is no conjunctival pallor. Neck is supple. Lung sounds are clear to auscultation bilaterally with good air entry. Heart has regular rate and rhythm. S1 and S2 are normal. She is not tachycardic. Abdomen is soft nontender. She moves all extremities actively. Constitutional Vital Signs, click to edit/add: Last Vital Signs Temp 97.8 F 02/01/25 19:31 Pulse 81 02/01/25 19:31 Resp 16 02/01/25 19:31 BP 144/80 H 02/01/25 22:10 Pulse Ox 100 02/01/25 19:31 O2 Del Method Room Air 02/01/25 19:31 Course Vital Signs Vital signs: Vital Signs Temperature 97.8 F 02/01/25 19:31 Pulse Rate 81 02/01/25 19:31 Respiratory Rate 16 02/01/25 19:31 Blood Pressure 160/91 H 02/01/25 19:31 Pulse Oximetry 100 02/01/25 19:31 Oxygen Delivery Method Room Air 02/01/25 19:31 Temperature 97.8 F 02/01/25 19:31 Pulse Rate 81 02/01/25 19:31 Respiratory Rate 16 02/01/25 19:31 Blood Pressure 144/80 H 02/01/25 22:10 Pulse Oximetry 100 02/01/25 19:31 Oxygen Delivery Method Room Air 02/01/25 19:31 Medical Decision Making [facility] Narrative Medical decision making narrative: Patient presents with generalized fatigue and concern for low iron levels. Her hemoglobin is normal at 12.4. The serum is negative. TSH is normal. There is a slight bump in the creatinine 1.19 which I suspect is due to volume depletion. She is bolused with a liter of IV saline and is advised outpatient follow-up with her PCP for further management. She is to return for worsening symptoms. Lab Data Labs: Lab Results 02/01/25 Range/Units 19:56 WBC 8.8 (4.0-11.0) 10^3/uL RBC 4.70 (4.20-5.40) 10^6/uL Hgb 12.4 (12.0-16.0) g/dL Hct 39.2 (36.0-48.0) % MCV 83.4 (81.0-99.0) fL MCH 26.4 L (26.7-34.0) pg MCHC 31.6 (29.9-35.2) g/dL RDW 15.4 H (11.0-15.0) % Plt Count 260 (150-450) 10^3/uL MPV 11.6 (9.5-13.5) fL Neut % (Auto) 63.3 (43.0-75.0) % Lymph % (Auto) 27.3 (20.5-60.0) % [place] % (Auto) 6.3 (1.7-12.0) % Eos % (Auto) 2.2 (0.9-7.0) % Baso % (Auto) 0.7 (0.2-2.0) % Neut # (Auto) 5.6 (1.4-6.5) 10^3/uL Lymph # (Auto) 2.4 (1.2-3.8) 10^3/uL [place] # (Auto) 0.6 (0.3-0.8) 10^3/uL Eos # (Auto) 0.2 (0.0-0.7) 10^3/uL Baso # (Auto) 0.1 (0.0-0.1) 10^3/uL Abs Immat Gran (auto) 0.02 (0.00-0.03) 10^3/uL Imm/Tot Granulo (auto) 0.2 (0.0-0.5) % Sodium 144 (136-145) mmol/L Potassium 4.5 (3.5-5.1) mmol/L Chloride 107 (98-107) mmol/L Carbon Dioxide 28.6 (21.0-32.0) mmol/L Anion Gap 12.9 BUN 19.0 H (7.0-18.0) mg/dL Creatinine 1.19 H (0.55-1.02) mg/dL Est GFR ( Amer) >60 (>=60 mL/min/1.73m^2) Est GFR (Non-Af Amer) 52 L (>=60 mL/min/1.73m^2) BUN/Creatinine Ratio 16.0 Glucose 126 H (74-106) mg/dL Calcium 9.0 (8.5-10.1) mg/dL Total Bilirubin 0.4 (0.2-1.0) mg/dL AST 13 L (15-37) U/L ALT 16 (14-59) U/L Alkaline Phosphatase 129 H (46-116) U/L Total Protein 7.3 (6.4-8.2) g/dL Albumin 3.6 (3.4-5.0) g/dL Globulin 3.7 g/dL Albumin/Globulin Ratio 1.0 TSH & Free T4 Interp 2.192 (0.358-3.740) uIU/mL Serum HCG, Qual Negative (NEGATIVE) Discharge Plan Discharge Chief Complaint: Weakness Clinical Impression: Dehydration Patient Disposition: Home, Self-Care Time of Disposition Decision: 21:50 Condition: Good Mode of Transportation: Private Vehicle Prescriptions / Home Meds: No Action famotidine 40 mg tablet gabapentin 400 mg capsule omeprazole 40 mg capsule,delayed release(DR/EC) ferrous gluconate 324 mg (38 mg iron) tablet buspirone 10 mg tablet 10 mg PO .amhs lamotrigine 150 mg tablet 150 mg PO Q12H lurasidone 60 mg tablet 60 mg PO .QD magnesium oxide 400 mg (241.3 mg magnesium) tablet 400 mg PO .qd potassium chloride 20 mEq tablet,ER particles/crystals 20 meq PO BID Qty: 60 0RF potassium chloride 20 mEq packet 40 meq PO DAILY 5 Days Qty: 5 0RF Print Language: Malawian Instructions: Dehydration (ED) Additional Instructions: Drink extra fluids. Follow-up with your physician within a week. Return for worsening symptoms. Referrals: PAUL KIRBY [Primary Care Provider, Family Practice] - 1 week Discharge Date/Time: 02/01/25 22:12
--- NOTE | 2025-02-01 19:43 | PC.NURSE ---
Pt states that she has been missing work because of weakness.
[2025-02-01 20:07] LABS: Basophils Absolute Auto 0.1 10^3/uL (0.0-0.1); Basophils Percent Auto 0.7 % (0.2-2.0); Eosinophils Absolute Auto 0.2 10^3/uL (0.0-0.7); Eosinophils Percent Auto 2.2 % (0.9-7.0); Hematocrit 39.2 % (36.0-48.0); Hemoglobin 12.4 g/dL (12.0-16.0); Immature Granulocytes Abs Auto 0.02 10^3/uL (0.00-0.03); Immature Granulocytes Pct Auto 0.2 % (0.0-0.5); Lymphocytes Absolute Auto 2.4 10^3/uL (1.2-3.8); Lymphocytes Percent Auto 27.3 % (20.5-60.0); Mean Corpuscular HGB Conc 31.6 g/dL (29.9-35.2); Mean Corpuscular Hemoglobin 26.4 pg (26.7-34.0); Mean Corpuscular Volume 83.4 fL (81.0-99.0); Mean Platelet Volume 11.6 fL (9.5-13.5); Monocytes Absolute Auto 0.6 10^3/uL (0.3-0.8); Monocytes Percent Auto 6.3 % (1.7-12.0); Neutrophils Absolute Auto 5.6 10^3/uL (1.4-6.5); Neutrophils Percent Auto 63.3 % (43.0-75.0); Platelet Count 260 10^3/uL (150-450); Red Cell Distribution Width 15.4 % (11.0-15.0); White Blood Count 8.8 10^3/uL (4.0-11.0)
[2025-02-01 20:21] LABS: Alanine Aminotransferase 16 U/L (14-59); Albumin Level 3.6 g/dL (3.4-5.0); Alkaline Phosphatase 129 U/L (46-116); Anion Gap 12.9; Aspartate Amino Transferase 13 U/L (15-37); Bilirubin Total 0.4 mg/dL (0.2-1.0); Carbon Dioxide 28.6 mmol/L (21.0-32.0); Chloride 107 mmol/L (98-107); Estimated GFR (African America >60 (>=60 mL/min/1.73m^2); Estimated GFR (Non-African Ame 52 (>=60 mL/min/1.73m^2); Globulin 3.7 g/dL; Glucose 126 mg/dL (74-106); HCG Qualitative NEGATIVE (NEGATIVE); Internal Control Within Normal Limits; Potassium 4.5 mmol/L (3.5-5.1); Sodium 144 mmol/L (136-145); Total Protein 7.3 g/dL (6.4-8.2)
[2025-02-01 20:28] LABS: TSH W/ REFLEX FT4 2.192 uIU/mL (0.358-3.740)
[2025-02-01] MEDS: 0.9 % SODIUM CHLORIDE 1,000 ML 1000 ML IV (20:50)
[2025-02-01 22:10] VITALS: BP 144/80
== END 2025-02-01 22:12 | disposition home or self-care (01) ==
PROVIDERS: Emergency Provider Emergency Medicine; PCP Family Medicine
DX: E86.0 Dehydration (principal); Z98.84 Bariatric surgery status; K27.9 Peptic ulcer, site unspecified, unspecified as acute or chronic, without hemorrhage or perforation; Z79.899 Other long term (current) drug therapy; F17.200 Nicotine dependence, unspecified, uncomplicated
CPT/HCPCS: 36415; 80053; 84443; 84703; 85025; 99285

== ENCOUNTER 2025-03-01 07:32 | Outpatient (RCR) | payer OTHER, SELFPAY ==
[2025-02-17 08:30] VITALS: BP 125/80; PULSE 78; TEMP 36.3; O2SAT 99
[2025-02-17] MEDS: IRON SUCROSE COMPLEX 200 MG in 0.9 % SODIUM CHLORIDE 100 ML 220 MG IV (08:51)
--- NOTE | 2025-02-17 09:15 | PC.NURSE ---
Tolerating infusion without c/o.
[2025-02-19 08:33] VITALS: BP 138/82; PULSE 78; TEMP 35.8; O2SAT 100
[2025-02-19] MEDS: IRON SUCROSE COMPLEX 200 MG in 0.9 % SODIUM CHLORIDE 100 ML 220 MG IV (08:58)
[2025-02-22 10:55] VITALS: BP 132/83; PULSE 82; TEMP 36.6; O2SAT 98
[2025-02-22] MEDS: IRON SUCROSE COMPLEX 200 MG in 0.9 % SODIUM CHLORIDE 100 ML 220 MG IV (11:07)
[2025-02-26 11:10] VITALS: BP 135/87; PULSE 77; TEMP 36.5; O2SAT 99
[2025-02-26] MEDS: IRON SUCROSE COMPLEX 200 MG in 0.9 % SODIUM CHLORIDE 100 ML 220 MG IV (11:26)
[2025-03-01 10:42] VITALS: BP 130/80; PULSE 66; TEMP 36.2; O2SAT 98
[2025-03-01] MEDS: IRON SUCROSE COMPLEX 200 MG in 0.9 % SODIUM CHLORIDE 100 ML 220 MG IV (10:51)
== END 2025-03-04 23:59 | disposition home or self-care (01) ==
LOC: INF 07:32
PROVIDERS: PCP Family Medicine; Visit Provider Family Medicine
DX: D50.9 Iron deficiency anemia, unspecified (principal); Z98.84 Bariatric surgery status
CPT/HCPCS: 96365; J1756

== ENCOUNTER 2025-04-21 14:01 | Emergency (ER) | payer OTHER, SELFPAY ==
--- OUTSIDE RECORDS SUMMARY | 2024-06-05 05:15 | XMS_ITS ---
Author Organization [facility] Serv[facility] es Address [address] [facility] [place] [address] Care Team Providers Care Cow Rider Name Role Phone Latrice Tripathi Primary Care Provider [phone] Shelly Aponte Unavailable [phone] REASON FOR VISIT new pt dental exam Encounters Encounter Location Date Provider Diagnosis [address] [place] [address] 06/05/2024 Shelly Aponte Plan Of Treatment No Information Progress Notes * KOURTNEY DE LA VEGAOB:1990 (34 yo F)Acc No.[id number]:06/05/2024 Patient: Isaiah HOPE HEIDI Provider: Hermes Aponte DDS :1990 A ge:33 Y S ex:Female Date:06/05/2024 Address:[address] [place] [address] [address], [place], [id number] Pcp:Latrice Tripathi Subjective: * Chief Complaints: * 1 . New pt dental exam. * Medical History: Objective: * Vitals: Assessment: Plan: * Treatment: * Images: * Electronic signature of Nadiya Aponte DDS on 04/21/2025 at 02:14 PM EDT Sign off status: Pending * Provider: Hermes Aponte DDS Date: 1 08/05/2023 Generated for Nemo conroy/Rosette/eTluciasmitting on: 0 04/21/2025 02:14 PM EDT
--- OUTSIDE RECORDS SUMMARY | 2024-11-09 04:00 | XMS_ITS ---
Author Organization [facility] Servic es Address [address] [place] [address] Care Team Providers Care Children'S Author Name Role Phone Latrice Tripathi Primary Care Provider Shelly Aponte Unavailable [phone] REASON FOR VISIT FILLING Encounters Encounter Location Date Provider Diagnosis [place] [place] [address] 11/09/2024 Shelly Aponte Plan Of Treatment No Information Progress Notes * KOURTNEY DE LA VEGAOB:1990 (34 yo F)Acc No.[id number]:11/09/2024 Patient: Isaiah HOPE HEIDI Provider: Hermes Aponte DDS :1990 A ge:34 Y S ex:Female Date:11/09/2024 Address:[address] [place] [address] [id number] Pcp:Latrice Tripathi Subjective: * Chief Complaints: * 1 . FILLING. * Medical History: Objective: * Vitals: Assessment: Plan: * Treatment: * Images: * Electronic signature of Nadiya Aponte DDS on 04/21/2025 at 02:15 PM EDT Sign off status: Pending * Provider: Hermes Aponte DDS Date: 0 11/09/2024 Generated for Nemo conroy/Rosette/eTransmmarry on: 0 04/21/2025 02:15 PM EDT
--- OUTSIDE RECORDS SUMMARY | 2025-02-01 04:00 | XMS_ITS ---
Author Organization [facility] Servic es Address [address] [facility] [place] [address] Care Team Providers Care Expansion Joint Finisher Name Role Phone Latrice Tripathi Primary Care Provider Brianne Langley Unavailable [phone] REASON FOR VISIT PROPHY Encounters Encounter Location Date Provider Diagnosis [place] [place] [address] 02/01/2025 Brianne Langley Plan Of Treatment No Information Progress Notes * KOURTNEY DE LA VEGAOB:1990 (34 yo F)Acc No.[id number]:02/01/2025 Patient: HONORIO BUSTOSHEL Provider: Hernesto Garber :1990 A ge:34 Y S ex:Female Date:02/01/2025 Address:[address] [place] [address] [address] [id number] Pcp:Latrice Tripathi Subjective: * Chief Complaints: * 1 . PROPHY. * Medical History: Objective: * Vitals: Assessment: Plan: * Treatment: * Images: * Electronic signature of Lizbet Langley on 04/21/2025 at 02:15 PM EDT Sign off status: Pending * Provider: Hernesto Garber Date: 0 02/01/2025 Generated for Printi ng/Faxing/eTransmitting on: 0 04/21/2025 02:15 PM EDT
--- OUTSIDE RECORDS SUMMARY | 2025-04-14 16:00 | XMS_ITS | Encounter Summary ---
Author Organization [facility] Address [address] [place] [address] Care Team Providers Care Business Analytics Director Name Role Phone Immanuel Kuhn Primary Care Provider [phone] Mikael García DO Unavailable [phone] Jacki Braun [facility] Unavailable [phone] HenryKadiee ASSISTANT SHIFT SUPERVISOR Unavailable [phone] Reason for Visit * Reason Comments Follow-up Encounter Details Date Type Department Care Team (Late st Contact Info) Description 04/14/2025 4:00 PM EDT Social Work [facility] [address] [place] [phone] Jacki Bruan, [facility] [address] [facility] [address] [place] [address] Generalized anxiety disorder ; Bipolar affective disorder, currently depressed, mild (HCC) Social History Tobacco Use Types Packs/Day Years Used Date Smoking Tobacco: Every Day Cigarettes Last attempted to quit: 08/05/2022 Passive Smoke Exposure: Current Smokeless Tobacco: Never Comments:Cessation discussed Alcohol Use Standard Drinks/Week Comments Not Currently 0 (1 standard drink = 0.6 oz pure alcohol) caffeine intake: 5 cans soda/daily PHQ-2 Answer Date Recorded Patient Health Questionnaire-2 Score 5 01/27/2025 Comments Unknown Sex and Gender Information Value Date Recorded Sex Assigned at Not on file Legal Sex Female 7:20 PM EDT Gender Identity Not on file Sexual Orientation Not on file documented as of this encounter Plan of Treatment Upcoming Encounters Date Type Department Care Team (Late st Contact Info) Description 04/29/2025 2:00 PM EDT Social Work [facility] [address] [place] [phone] Jacki Braun [facility] [address] [place] [address] 05/13/2025 12:00 PM EDT Social Work [facility] [address] [place] [phone] Jacki Braun, [facility] [address] [place] [address] 05/19/2025 3:00 PM EDT Social Work [facility] [address] [place] [phone] Jacki Braun [facility] [address] [place] [address] 05/20/2025 2:45 PM EDT Office Visit [facility] [address] [place] [address] Isabel Dunaway, DPM [address] [place] [address] 05/26/2025 3:00 PM EDT Social Work [facility] [facility] [address] [place] [address] Jacki Braun [facility] [address] [place] [address] documented as of this encounter Visit Diagnoses Diagnosis Generalized anxiety disorder Generalized anxiety disorder Bipolar affective disorder, currently depressed, mild (HCC) Bipolar I disorder, most recent episode (or current) depressed, mild documented in this encounter Additional Health Concerns Assessment Noted Time PHQ-9 Depression Total Score: 11 01/27/ 025 8:53 AM EDT documented as of this encounter Care Teams Business Analytics Director Relationship Specialty Start Date End Date Immanuel Kuhn, DO [address] [place] [address] PCP - General Family Medicine 12/25/22 Mikael García DO [address] [place] [address] PCP - [facility] 05/05/24 Jacki Braun, [facility] [address] [place] [address] Vp Lab Behavioral Health 08/18/24 Nely Figueroa LSW [address] [place] [address] Vp Lab Family Medicine 02/03/25 documented as of this encounter
--- OUTSIDE RECORDS SUMMARY | 2025-04-19 15:00 | XMS_ITS | Encounter Summary ---
Author Organization [facility] Address [address] [place] [address] Care Team Providers Care [employer] Special Education Teacher Name Role Phone Immanuel Kuhn DO Primary Care Provider [phone] Mikael García DO Unavailable [phone] Jacki Braun [facility] Unavailable [phone] HenryNely [employer] INTEGRATION SPECIALIST Unavailable [phone] Encounter Details Date Type Department Care Team (Late st Contact Info) Description 04/19/2025 3:00 PM EDT Office Visit [facility] [address] [place] [address] Isabel Dunaway DPM [address] [place] [address] Tailor's bunion of both feet (Primary Dx); Corns and callosities; Pain in both feet Social History Tobacco Use Types Packs/Day Years Used Date Smoking Tobacco: Every Day Cigarettes Last attempted to quit: 08/05/2022 Passive Smoke Exposure: Current Smokeless Tobacco: Never Comments:Cessation discussed Alcohol Use Standard Drinks/Week Comments Not Currently 0 (1 standard drink = 0.6 oz pure alcohol) caffeine intake: 5 cans soda/daily PHQ-2 Answer Date Recorded Patient Health Questionnaire-2 Score 2 04/20/2025 Comments Unknown Sex and Gender Information Value Date Recorded Sex Assigned at Not on file Legal Sex Female 7:20 PM EDT Gender Identity Not on file Sexual Orientation Not on file documented as of this encounter Progress Notes * Isabel Dunaway DPM - 04/19/2025 3:00 PM EDT Images from the original note were not included. HPI: Patient presents today complaining of a callous/corn on the bilateral foot. They have noticed this for the past chronic. Patient has pain with walking and standing due to this lesion. Patient has tried trimming the callous for treatment. No other complaints. Exam: General Examination: GENERAL APPEARANCE: awake, aware of surroundings, in no acute distress Vascular: DORSALIS PEDIS PULSE: 2/4, bilaterally POSTERIOR TIBIAL PULSE: 2/4, bilaterally TEMPERATURE GRADIENT: warm to cool EDEMA: none CAPILLARY FILLING TIME(sec): capillary fill intact bilateral digits less than 3 secs Neurologic: NEUROLOGIC: light touch is intact to the plantar foot Dermatologic: SKIN FINDINGS: normal HYPERKERATOSIS: Location: sub 5th MPJ left with centralized core NAIL PATHOLOGY: digits 1-5 bilateral are intact SKIN PATHOLOGY: texture, turgor, hair growth, within normal limits Orthopedic: FOOT MORPHOLOGY: normal JOINT RANGE OF MOTION: normal ROM to the ankle, subtalar joints and 1st MPJ bilateral with no evidence of pain with ROM DEFORMITIES: hammertoes 2-4 right, Tailor's bunion bilateral PAIN ELICITED WITH PALPATION OF: overlying the callous site on the left foot MUSCLE STRENGTH: 5/5 for all pedal groups tested Assessments: ICD L84 - Corns and callosities: Tailor's bunion bilateral ICD M79.671 - Pain in right foot ICD M79.672 - Pain in left foot Hammertoes right Treatment Note: ICD L84 - Corns and callosities: 1. Hyperkeratosis as above noted was debrided. 2. Discussed with the patient the reason for the development of the this type of lesion and ways toreduce recurrence. We did also discuss a more aggressive acid treatment if he starts to notice increased recurrence over time. 3. Discussed continued use of proper foot gear to avoid excess pressure over the callous site. 4. RTC: as scheduled or as needed. Metatarsal Deformity: 1. Discussed with patient the findings of the x-rays, examination and further options for treatmentincluding conservative and surgical treatment of the deformities. 2. Specifically discussed with the patient conservative treatment including shoe gear modification,stretching of the shoes, corrective splinting which may alleviate some tenderness but does not provide long-term correction of the deformity, padding with tube foam versus toe spacers. 3. Briefly discussed with the patient the surgical options for correction of the deformity including Tailor's bunionectomy and the associated surgical procedure, complications and recovery time. documented in this encounter Plan of Treatment Upcoming Encounters Date Type Department Care Team (Late st Contact Info) Description 04/29/2025 2:00 PM EDT Social Work [facility] [address] [place] [address] Jacki Braun [facility] [address] [place] [address] 05/13/2025 12:00 PM EDT Social Work [facility] [address] [place] [phone] Jacki Braun [facility] [address] [place] [address] 05/19/2025 3:00 PM EDT Social Work [facility] [address] [place] [address] Jacki Braun [facility] [address] [place] [address] 05/20/2025 2:45 PM EDT Office Visit [facility] [place] [address] [place] [address] Isabel Dunaway DPM [address] [place] [address] 05/26/2025 3:00 PM EDT Social Work [facility] [address] [place] [address] Jacki Braun [facility] [address] [place] [address] documented as of this encounter Visit Diagnoses Diagnosis Tailor's bunion of both feet- Primary Corns and callosities Pain in both feet documented in this encounter Additional Health Concerns Assessment Noted Time PHQ-9 Depression Total Score: 11 01/27/ 025 8:53 AM EDT documented as of this encounter Care Teams [employer] Special Education Teacher Relationship Specialty Start Date End Date Immanuel Kuhn, [address] [place] [address] PCP - General Family Medicine 12/25/22 Mikael García DO [address] [place] [address] PCP - [facility] 05/05/24 Jacki Braun, [facility] [address] [place] [address] Systems Lead Behavioral Health 08/18/24 Nely Figueroa LSW [address] [place] [address] Systems Lead Family Medicine 02/03/25 documented as of this encounter
--- OUTSIDE RECORDS SUMMARY | 2025-04-20 15:00 | XMS_ITS | Encounter Summary ---
Author Organization [facility] Address [address] [place] [address] Care Team Providers Care Color Drum Worker Name Role Phone BamImmanuel DO Primary Care Provider [phone] Mikael García DO Unavailable [phone] Jacki Braun [facility] Unavailable [phone] Henry Nely CONFERENCE CENTER COORDINATOR Unavailable [phone] Reason for Visit * Reason Comments Follow-up Encounter Details Date Type Department Care Team (Late st Contact Info) Description 04/20/2025 3:00 PM EDT [facility] [address] [place] [address] Brendan Carter PA [address] [facility] [address] [place] [address] Nausea (Primary Dx); Iron deficiency anemia, unspecified iron deficiency anemia type; Gastroesophageal reflux disease with esophagitis without hemorrhage; Neuropathy; Anastomotic ulcer; Primary insomnia Social History Tobacco Use Types Packs/Day Years [...] on file documented as of this encounter Last Filed Vital Signs Vital Sign Reading Time Taken Comments Blood Pressure 130/82 04/20/2025 2:56 PM EDT Pulse 65 04/20/2025 2:56 PM EDT Temperature 36.4 C (97.6 F) 04/20/2025 2:56 PM EDT Respiratory Rate - - Oxygen Saturation 100% 04/20/2025 2:56 PM EDT Inhaled Oxygen Concentration - - Weight 81.2 kg (179 lb) 04/20/2025 2:56 PM EDT Height 167.6 cm (5' 6 ) 04/20/2025 2:56 PM EDT Body Mass Index 28.89 04/20/2025 2:56 PM EDT documented in this encounter Functional Status * Over the past 2 weeks, how often have you been bothered by any of the following problems? Question Answer Date of Assessment Author Little interest or pleasure in doing things Several days 04/20/2025 2:55 PM EDT Phuong Leone MA Feeling down, depressed, or hopeless Several days 04/20/2025 2:55 PM EDT Phuong Leone MA Patient Health Questionnaire-2 Score 2 04/20/2025 2:55 PM EDT Terese Leone MA * If you checked off any problems on this questionnaire so far, Question Answer Date of Assessment Author How difficult have these problems made it for you to do your work, take care of things at home, or get along with other people? Somewhat difficult 04/20/2025 2:55 PM EDT Phuong Leone MA documented as of this encounter Progress Notes * ANDRIY Cameron - 04/20/2025 3:00 PM EDT Images from the original note were not included. Subjective Nurse Notes: Mary Joy is a 34 y.o. year old female patient with complaints of go over medications. Requests refills. Med Refill This is a chronic problem. The current episode started more than 1 year ago. Progression since onset: stable. Pertinent negatives include no chest pain, chills, fever, myalgias, nausea, rash or vomiting. Treatments tried: medications as directed. The treatment provided significant relief. Review of Systems Constitutional: Negative for chills and fever. Respiratory: Negative for shortness of breath. Cardiovascular: Negative for chest pain. Gastrointestinal: Negative for diarrhea, nausea and vomiting. Musculoskeletal: Negative for myalgias. Skin: Negative for rash. All other systems reviewed and are negative. Objective Visit Vitals BP 130/82 Pulse 65 Temp 97.6 ??F Ht 5' 6 Wt 179 lb SpO2 100% BMI 28.89 kg/m?? OB Status Unknown Smoking Status Every Day BSA 1.94 m?? Physical Exam Constitutional: General: She is not in acute distress. Appearance: Normal appearance. HENT: Head: Normocephalic and atraumatic. Mouth/Throat: Mouth: Mucous membranes are moist. Cardiovascular: Rate and Rhythm: Normal rate and regular rhythm. Pulses: Normal pulses. Heart sounds: No murmur heard. No friction rub. No gallop. Pulmonary: Effort: No respiratory distress. Breath sounds: Normal breath sounds. No wheezing, rhonchi or rales. Musculoskeletal: Right lower leg: No edema. Left lower leg: No edema. Skin: General: Skin is warm and dry. Findings: No rash. Neurological: General: No focal deficit present. Mental Status: She is alert and oriented to person, place, and time. Psychiatric: Mood and Affect: Mood normal. Behavior: Behavior normal. Judgment: Judgment normal. Assessment/Plan Diagnoses and all orders for this visit: Nausea - ondansetron (Zofran) 4 MG tablet; Take 1 tablet (4 mg) by mouth every 8 (eight) hours if needed for nausea or vomiting Iron deficiency anemia, unspecified iron deficiency anemia type - ferrous gluconate (Fergon) 324 (38 Fe) MG tablet; Take 1 tablet (324 mg) by mouth in the morning.Take with meals. Gastroesophageal reflux disease with esophagitis without hemorrhage - famotidine (Pepcid) 40 MG tablet; Take 1 tablet (40 mg) by mouth Daily Neuropathy - gabapentin (Neurontin) 400 MG capsule; Take 1 capsule (400 mg) by mouth in the morning and 1 capsule (400 mg) before bedtime. Anastomotic ulcer - omeprazole (PriLOSEC) [address] capsule; Take 1 capsule (40 mg) by mouth in the morning and 1 capsule (40 mg) in the evening. Take before meals. Do not crush or chew. Primary insomnia - zolpidem (Ambien) 10 MG tablet; Take 1 tablet (10 mg) by mouth as needed at bedtime for sleep Take medications as directed. All questions answered. Call the office with any other questions or concerns. *I have reviewed and reconciled the history and medication list with the patient today documented in this encounter Plan of Treatment Upcoming Encounters Date Type Department Care Team (Late st Contact Info) Description 04/29/2025 2:00 PM EDT Social Work [facility] [place] [facility] [address] [place] [address] Jacki Braun [facility] [address] [place] [address] 05/13/2025 12:00 PM EDT Social Work [facility] [place] [facility] [address] [place] [address] Jacki Braun [facility] [address] [place] [address] 05/19/2025 3:00 PM EDT Social Work [facility] [place] [facility] [address] [place] [address] Jacki Braun [facility] [address] [place] [address] 05/20/2025 2:45 PM EDT Office Visit [facility] [place] [facility] [address] [place] [address] Isabel Dunaway DPM [address] [place] [address] 05/26/2025 3:00 PM EDT Social Work [facility] [place] [facility] [address] [place] [address] Jacki Braun [facility] [address] [place] [address] documented as of this encounter Visit Diagnoses Diagnosis Nausea- Primary Nausea alone Iron deficiency anemia, unspecified iron deficiency anemia type Gastroesophageal reflux disease with esophagitis without hemorrhage Neuropathy Mononeuritis of unspecified site Anastomotic ulcer Gastrojejunal ulcer, unspecified as acute or chronic, without mention of hemorrhage, perforation, or obstruction Primary insomnia Persistent disorder of initiating or maintaining sleep documented in this encounter Additional Health Concerns Assessment Noted Time PHQ-9 Depression Total Score: 11 025 8:53 AM EDT documented as of this encounter Care Teams Color Drum Worker Relationship Specialty Start Date End Date Immanuel Kuhn, [address] [place] [address] PCP - General Family Medicine 12/25/22 iMkael García DO [address] [place] [address] PCP - [facility] 05/05/24 Jacki Braun, [facility] [address] [place] [address] Opto Mechanical Engineer Behavioral Health 08/18/24 Nely Figueroa LSW [address] [place] [address] Opto Mechanical Engineer Family Medicine 02/03/25 documented as of this encounter
[2025-04-21 14:05] VITALS: BP 150/117; TEMP 37; O2SAT 100; BMI 29.8
--- OUTSIDE RECORDS SUMMARY | 2025-04-21 14:15 | XMS_ITS | Encounter Summary ---
Author Organization [facility] Address [address] [place] [address] Care Team Providers Care Boiler House Supervisor Name Role Phone Immanuel Kuhn DO Primary Care Provider [phone] Esther Carbajal MD Unavailable [phone] Brendan Carter PA-C Unavailable [phone] Source Comments In the event this information is protected by the Federal Confidentiality of Alcohol and Drug AbusePatient Records regulations: The Federal rules restrict any use of the information to criminally investigate or prosecute any alcohol or drug abuse patient.[facility] Encounter Details Date Type Department Care Team (Late st Contact Info) Description 01/20/2024 Patient Msg Pre Anesthesia [address] [facility] [address] [place], [place] [id number] Phuong Rock APRN.FINISH GRINDER [address] [place] [address] PATIENT PREOPERATIVE INSTRUCTIONS Social History Tobacco Use Types Packs/Day Years Used Date Smoking Tobacco: Every Day Cigarettes Smokeless Tobacco: Never Alcohol Use Standard Drinks/Week Comments Yes 0 (1 standard drink = 0.6 oz pur e alcohol) Area Deprivation Index Answer Date Bashir rded National Score (1-100), lower number is lower ri sk 59 08/20/2023 State Score (1-10), lower number is lower risk 4 08/20/2023 Data from: https://www.neighborhoodatlas.medicine.[facility].edu/. Last address used for calculation [address] [place] [address] [address] 08/20/2023 Comments No Sex and Gender Information Value Date Recorded Sex Assigned at Not on file Legal Sex Female 11:20 AM EDT Gender Identity Female 08/27/2023 2:21 PM EST Sexual Orientation Not on file documented as of this encounter Plan of Treatment Not on file documented as of this encounter Visit Diagnoses Not on filedocumented in this encounter Care Teams Boiler House Supervisor Relationship Specialty Start Date End Date Immanuel Kuhn DO [address] [facility] [address] [place] [address] PCP - General Family Medicine 10/23/12 Esther Carbajal MD [address] [facility] [address] [place] [address] Referring Obstetrics 01/28/20 Brendan Carter, PAArunC [address] [facility] [address] [place] [address] Referring Physician Business Center Attendant 08/08/23 documented as of this encounter
--- OUTSIDE RECORDS SUMMARY | 2025-04-21 14:15 | XMS_ITS | Encounter Summary ---
Author Organization [facility] Address [address] [place] [address] Care Team Providers Care Utilities Ground Worker Name Role Phone Immanuel Kuhn DO Primary Care Provider [phone] Brendan Carter PA Unavailable Immanuel Kuhn DO Unavailable Brendan Carter PA Unavailable Mikael García DO Unavailable Jacki Braun [facility] Unavailable [phone] Nely Figueroa CRIMINAL INVESTIGATIVE AGENT Unavailable Encounter Details Date Type Department Care Team (Late st Contact Info) Description 05/23/2023 [facility] [address] [facility] [address] [place] [address] Immanuel Kuhn DO [address] [facility] [address] [place] [address] Social History Tobacco Use Types Packs/Day Years Used Date Smoking Tobacco: Former Cigarettes Q uit: 08/05/2022 Smokeless Tobacco: Never Alcohol Use Standard Drinks/Week Comments Not Currently 0 (1 standard drink = 0.6 oz pur e alcohol) 1-2 cans of soda daily PHQ-2 Answer Date Recorded Patient Health Questionnaire-2 Score 0 02/21/2023 Comments Unknown Sex and Gender Information Value Date Recorded Sex Assigned at Not on file Legal Sex Female 7:20 PM EDT Gender Identity Not on file Sexual Orientation Not on file documented as of this encounter Plan of Treatment Upcoming Encounters Date Type Department Care Team (Late st Contact Info) Description 04/29/2025 2:00 PM EDT Social Work [facility] [place] [facility] [address] [place] [address] Jacki Braun, [facility] [address] [place] [address] 05/13/2025 12:00 PM EDT Social Work [facility] [place] [facility] [address] [place] [address] Jacki Braun [facility] [address] [place] [address] 05/19/2025 3:00 PM EDT Social Work [facility] [address] [place] [address] Jacki Braun [facility] [address] [place] [address] 05/20/2025 2:45 PM EDT Office Visit [facility] [place] [facility] [address] [place] [address] Isabel Dunaway DPJose F [address] [place] [address] 05/26/2025 3:00 PM EDT Social Work [facility] [facility] [address] [place] [address] Jacki Braun [facility] [address] [place] [address] documented as of this encounter Visit Diagnoses Not on filedocumented in this encounter Care Teams Utilities Ground Worker Relationship Specialty Start Date End Date Immanuel Kuhn DO [address] [place] [address] PCP - General Family Medicine 12/25/22 Brendan Carter PA [address] [place] [address] PCP - [facility] 02/02/23 Immanuel Kuhn, DO [address] [place] [address] PCP - [facility] 11/04/23 Brendan Carter PA [address] [place] [address] PCP - [facility] 02/03/24 Mikael García, DO [address] [place] [address] [facility] - [facility] 05/05/24 Jacki Braun, [facility] [address] [place] [address] Family Practice Medical Doctor Behavioral Health 08/18/24 Nely Figueroa LSW [address] [place] [address] Family Practice Medical Doctor Family Medicine 02/03/25 documented as of this encounter
--- OUTSIDE RECORDS SUMMARY | 2025-04-21 14:15 | XMS_ITS | Encounter Summary ---
Author Organization [facility] Address [address] [place] [address] Care Team Providers Care Art Museum Docent Name Role Phone Immanuel Kuhn DO Primary Care Provider [phone] Mikael García DO Unavailable [phone] Jacki Braun [facility] Unavailable [phone] Henry Nely KITCHEN AIDE Unavailable [phone] Encounter Details Date Type Department Care Team (Late st Contact Info) Description 06/12/2024 [facility] [address] [place] [address] Mikael García DO [address] [place] [address] Social History Tobacco Use Types Packs/Day Years Used Date Smoking Tobacco: Every Day Cigarettes Last attempted to quit: 08/05/2022 Smokeless Tobacco: Never Comments:Cessation discussed Alcohol Use Standard Drinks/Week Comments Not Currently 0 (1 standard drink = 0.6 oz pure alcohol) caffeine intake: 5 cans soda/daily PHQ-2 Answer Date Recorded Patient Health Questionnaire-2 Score 0 02/26/2024 Comments No Sex and Gender Information Value Date Recorded Sex Assigned at Not on file Legal Sex Female 7:20 PM EDT Gender Identity Not on file Sexual Orientation Not on file documented as of this encounter Plan of Treatment Upcoming Encounters Date Type Department Care Team (Late st Contact Info) Description 04/29/2025 2:00 PM EDT Social Work [facility] [address] [place] [address] Jacki Braun, [facility] [address] [place] [address] 05/13/2025 12:00 PM EDT Social Work [facility] [facility] [address] [place] [address] Jacki Braun, [facility] [address] [place] [address] 05/19/2025 3:00 PM EDT Social Work [facility] [facility] [address] [place] [address] Jacki Braun, [facility] [address] [place] [address] 05/20/2025 2:45 PM EDT Office Visit [facility] [place] [facility] [address] [place] [address] Isabel Dunaway, DPM [address] [place] [address] 05/26/2025 3:00 PM EDT Social Work [facility] [facility] [address] [place] [address] Jacki Braun, [facility] [address] [place] [address] documented as of this encounter Visit Diagnoses Not on filedocumented in this encounter Care Teams Art Museum Docent Relationship Specialty Start Date End Date Immanuel Kuhn DO [address] [place] [address] PCP - General Family Medicine 12/25/22 Mikael García DO [address] [place] [address] [facility] 05/05/24 Jacki Braun, [facility] [address] [place] [address] Change Management Lead Behavioral Health 08/18/24 Nely Figueroa LSW [address] [place] [address] Change Management Lead Family Medicine 02/03/25 documented as of this encounter
--- OUTSIDE RECORDS SUMMARY | 2025-04-21 14:15 | XMS_ITS | Encounter Summary ---
Author Organization [facility] Address [address] [place] [address] Care Team Providers Care Woods Boss Name Role Phone Immanuel Kuhn DO Primary Care Provider [phone] Immanuel Kuhn DO Unavailable [phone] Brendan Carter PA Unavailable Mikael García DO Unavailable [phone] Jacki Braun [facility] Unavailable [phone] Nely Figueroa [facility] Unavailable [phone] Encounter Details Date Type Department Care Team (Late st Contact Info) Description 01/30/2024 [facility] [address] [facility] [address] [place] [address] Immanuel Kuhn DO [address] [facility] [address] [place] [address] Social History Tobacco Use Types Packs/Day Years Used Date Smoking Tobacco: Former Cigarettes Q uit: 08/05/2022 Smokeless Tobacco: Never Alcohol Use Standard Drinks/Week Comments Not Currently 0 (1 standard drink = 0.6 oz pure alcohol) caffeine intake: 1-2 cans of soda PHQ-2 Answer Date Recorded Patient Health Questionnaire-2 Score 0 12/12/2023 Comments No Sex and Gender Information Value Date Recorded Sex Assigned at Not on file Legal Sex Female 7:20 PM EDT Gender Identity Not on file Sexual Orientation Not on file documented as of this encounter Plan of Treatment Upcoming Encounters Date Type Department Care Team (Late st Contact Info) Description 04/29/2025 2:00 PM EDT Social Work [facility] [facility] [address] [place] [address] Jacki Braun, [facility] [address] [place] [address] 05/13/2025 12:00 PM EDT Social Work [facility] [place] [facility] [address] [place] [address] Jacki Braun, [facility] [address] [place] [address] 05/19/2025 3:00 PM EDT Social Work [facility] [place] [facility] [address] [place] [address] Jacki Braun, [facility] [address] [place] [address] 05/20/2025 2:45 PM EDT Office Visit [facility] [place] [facility] [address] [place] [address] Isabel Dunaway DPM [address] [place] [address] 05/26/2025 3:00 PM EDT Social Work [facility] [place] [facility] [address] [place] [address] Jacki Braun, [facility] [address] [place] [address] documented as of this encounter Visit Diagnoses Not on filedocumented in this encounter Care Teams Woods Boss Relationship Specialty Start Date End Date Immanuel Kuhn DO [address] [place] [address] PCP - General Family Medicine 12/25/22 Immanuel Kuhn, DO [address] [place] [address] PCP - [facility] 11/04/23 Brendan Carter PA [address] [place] [address] PCP - [facility] 02/03/24 Mikael García DO [address] [place] [address] PCP - [facility] 05/05/24 Jacki Braun, [facility] [address] [place] [address] Lathe Puller Behavioral Health 08/18/24 Nely Figueroa LSW [address] [place] [address] Lathe Puller Family Medicine 02/03/25 documented as of this encounter
--- OUTSIDE RECORDS SUMMARY | 2025-04-21 14:15 | XMS_ITS | Encounter Summary ---
Author Organization [facility] Address [address] [place] [address] Care Team Providers Care Project Manager/Team Coach Name Role Phone Immanuel Kuhn DO Primary Care Provider [phone] Brendan Carter PA Unavailable Immanuel Kuhn DO Unavailable [phone] Brendan Carter PA Unavailable Mikael García DO Unavailable Jacki Braun [facility] Unavailable [phone] Nely Figueroa MIXING ENGINEER Unavailable Encounter Details Date Type Department Care Team (Late st Contact Info) Description 07/15/2023 Abstract [facility] [address] [facility] [address] [place] [address] Immanuel Kuhn DO [address] [facility] [address] [place] [address] Social History Tobacco Use Types [...] 04/29/2025 2:00 PM EDT Social Work [facility] [place] [facility] [address] [place] [address] Jacki Braun, [facility] [address] [place] [address] 05/13/2025 12:00 PM EDT Social Work [facility] [place] [facility] [address] [place] [address] Jacki Braun [facility] [address] [place] [address] 05/19/2025 3:00 PM EDT Social Work [facility] [place] [facility] [address] [place] [address] Jacki Braun [facility] [address] [place] [address] 05/20/2025 2:45 PM EDT Office Visit [facility] [place] [facility] [address] [place] [address] Isabel Dunaway DPJose F [address] [place] [address] 05/26/2025 3:00 PM EDT Social Work [facility] [place] [facility] [address] [place] [address] Jacki Braun [facility] [address] [place] [address] documented as of this encounter Visit Diagnoses Not on filedocumented in this encounter Care Teams Project Manager/Team Coach Relationship Specialty Start Date End Date Immanuel Kuhn DO [address] [place] [address] PCP - General Family Medicine 12/25/22 Brendan Carter PA [address] [place] [address] PCP - [facility] 02/02/23 Immanuel Kuhn, DO [address] [place] [address] PCP - [facility] 11/04/23 Brendan Carter PA [address] [place] [address] PCP - [facility] 02/03/24 Mikael García, DO [address] [place] [address] [facility] - [facility] 05/05/24 Jacki Braun, [facility] [address] [place] [address] Balloon Seller [facility] 08/18/24 Nely Figueroa LSW [address] [place] [address] Balloon Seller Family Medicine 02/03/25 documented as of this encounter
--- OUTSIDE RECORDS SUMMARY | 2025-04-21 14:15 | XMS_ITS | Encounter Summary ---
Author Organization [facility] Address [address] [facility] [place] [address] Care Team Providers Care Technical Inspector Name Role Phone Immanuel Kuhn DO Primary Care Provider [phone] Brenadn Carter Unavailable Mikael García DO Unavailable [phone] Jacki Braun PSYCHIATRIC Unavailable [phone] Nely Figueroa [facility] Unavailable [phone] Encounter Details Date Type Department Care Team (Late st Contact Info) Description 04/07/2024 Abstract [facility] [address] [place] [address] Mikael García DO [address] [place] [address] Social History Tobacco Use Types [...] Work [facility] [address] [place] [address] Jacki Braun, PSYCHIATRIC [address] [place] [address] 05/13/2025 12:00 PM EDT Social Work [facility] [place] [facility] [address] [place] [address] Jacki Braun, PSYCHIATRIC [address] [place] [address] 05/19/2025 3:00 PM EDT Social Work [facility] [place] [facility] [address] [place] [address] Jacki Braun, PSYCHIATRIC [address] [place] [address] 05/20/2025 2:45 PM EDT Office Visit [facility] [place] [facility] [address] [place] [address] Isabel Dunaway DPM [address] [place] [address] 05/26/2025 3:00 PM EDT Social Work [facility] [place] [facility] [address] [place] [address] Jacki Braun, PSYCHIATRIC [address] [place] [address] documented as of this encounter Visit Diagnoses Not on filedocumented in this encounter Care Teams Technical Inspector Relationship Specialty Start Date End Date Immanuel Kuhn DO [address] [place] [address] PCP - General Family Medicine 12/25/22 Brendan Carter PA [address] [place] [address] [facility] 02/03/24 Mikael García DO [address] [place] [address] [facility] 05/05/24 Jacki Braun, PSYCHIATRIC [address] [place] [address] [facility] 08/18/24 Nely Figueroa LSW [address] [place] [address] [facility] 02/03/25 documented as of this encounter
--- OUTSIDE RECORDS SUMMARY | 2025-04-21 14:15 | XMS_ITS ---
Author Organization [facility] Address [address] [place] [address] Care Team Providers Care Frame Table Operator Helper Name Role Phone Immanuel Kuhn DO Primary Care Provider [phone] Esther Carbajal MD Unavailable [phone] Brendan Carter-C Unavailable [phone] Active Problems Problem Noted Date Diagnosed Date Secondary adrenal insufficiency 02/12/2024 Nicotine use disorder, F17.2 01/28/2024 Tobacco use 01/20/2024 Assessment & Plan (01/20/2024 9:12 AM EDT): Assessment: Current smoker, aware of pre-op instructions. History of hypokalemia 01/20/2024 Assessment & Plan (01/20/2024 9:14 AM EDT): Assessment: stable on oral potassium supplement. Hyperaldosteronism 12/10/2023 History of bariatric surgery 12/06/202310/2023 Assessment & Plan (01/20/2024 9:13 AM EDT): Assessment: hx of gastric bypass 12/2022. Stable. Assessment & Plan (12/06/2023 9:46 AM EDT): Assessment: History of Gastric bypass 12/2022 Body mass index is 28.66 kg/m . Adenoma of left adrenal gland 09/04/2023 Assessment & Plan (01/20/2024 9:12 AM EDT): Assessment: Scheduled for surgery Primary hyperaldosteronism 09/04/2023 First degree AV block 02/21/2023 12/06/2023 Assessment & Plan (12/06/2023 9:09 AM EDT): Assessment: stable Noted for several years on EKGs Migraine with aura and witho ut status migrainosus, not intractable 02/21/2023 12/06/2023 Assessment & Plan (12/06/2023 9:04 AM EDT): Assessment: Imitrex as needed Acute hypokalemia 09/07/2022 12/06/2023 Assessment & Plan (12/06/2023 9:39 AM EDT): Assessment: - potassium chloride (Klor-Con) 20 MEQ [...] 3.7 - 5.1 mmol/L Final Iron deficiency 02/02/2020 Assessment & Plan (01/20/2024 9:12 AM EDT): Assessment: stable. 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 No chemo or radiation. 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 No chemo or radiation Bipolar affective disorder, currently depressed, mild 09/16/2017 12/06/2023 Assessment & Plan (12/06/2023 9:46 AM EDT): Assessment: stable on medication Denies any suicidal ideation Following with Psychology Medication Management and changes being made Anxiety 06/18/2017 12/06/2023 Assessment & Plan (12/06/2023 9:46 AM EDT): Assessment: stable on medication Denies any suicidal ideation Following with Psychology Medication Management and changes being made Hidradenitis suppurativa of right axilla 013 [place] 10/27/2012 Current Treatment and Therapy Plans No current plan information found. Past Treatment and Therapy Plans
--- OUTSIDE RECORDS SUMMARY | 2025-04-21 14:15 | XMS_ITS | Encounter Summary ---
Author Organization [facility] Address [address] [place] [address] Care Team Providers Care Drywaller Name Role Phone Immanuel Kuhn DO Primary Care Provider [phone] Immanuel Kuhn DO Unavailable [phone] Brendan Carter PA Unavailable Mikael García DO Unavailable [phone] Jacki Braun [facility] Unavailable [phone] Nely Figueroa [facility] Unavailable [phone] Encounter Details Date Type Department Care Team (Late st Contact Info) Description 01/28/2024 Abstract [facility] [address] [facility] [address] [place] [address] Immanuel Kuhn DO [address] [facility] [address] [place] [address] Social History Tobacco Use Types Packs/Day Years [...] 04/29/2025 2:00 PM EDT Social Work [facility] [place] [facility] [address] [place] [address] Jacki Braun, [facility] [address] [place] [address] 05/13/2025 12:00 PM EDT Social Work [facility] [place] [facility] [address] [place] [address] Jacki Braun, [facility] [address] [place] [address] 05/19/2025 3:00 PM EDT Social Work [facility] [place] [facility] [address] [place] [address] Jacki Braun, [facility] [address] [place] [address] 05/20/2025 2:45 PM EDT Office Visit [facility] [place] [facility] [address] [place] [address] Isabel Dunaway DPM [address] [place] [address] 05/26/2025 3:00 PM EDT Social Work [facility] [place] [facility] [address] [place] [address] Jacki Braun, [facility] [address] [place] [address] documented as of this encounter Visit Diagnoses Not on filedocumented in this encounter Care Teams Drywaller Relationship Specialty Start Date End Date Immanuel Kuhn DO [address] [place] [address] PCP - General Family Medicine 12/25/22 Immanuel Kuhn, DO [address] [place] [address] PCP - [facility] 11/04/23 Brendan Carter PA [address] [place] [address] PCP - [facility] 02/03/24 Mikael García DO [address] [place] [address] PCP - [facility] 05/05/24 Jacki Braun, [facility] [address] [place] [address] Respiratory Assistant Behavioral Health 08/18/24 Nely Figueroa LSW [address] [place] [address] Respiratory Assistant Family Medicine 02/03/25 documented as of this encounter
--- OUTSIDE RECORDS SUMMARY | 2025-04-21 14:15 | XMS_ITS | Clinical Summary ---
Author Organization [facility] Address [address] [place] [address] Care Team Providers Care Motorcyles Final Inspector Name Role Phone Immanuel Kuhn DO Primary Care Provider [phone] Esther Carbajal MD Unavailable [phone] Brendan Carter PA-C Unavailable [phone] Allergies No known active allergies Medications Ferrous Sulfate 27 mg iron tab Take by mouth twice daily. Active busPIRone (BUSPAR) 10 mg tablet TAKE 1 TABLET (10 MG) BY MOUTH IN THE MORNING AND BEFORE BEDTIME 3 Active gabapentin (NEURONTIN) 400 mg capsule 1 capsule. 2 Active lamoTRIgine (LAMICTAL) 150 mg tablet Take 150 mg by mouth. 2 Active lurasidone (LATUDA) 60 mg tab tablet Take 60 mg by mouth. 2 Active REXULTI 1 mg tablet TAKE 1 TABLET BY MOUTH ONCE DAILY AT THE SAME TIME 3 Active SUMAtriptan (IMITREX) 100 mg tablet TAKE 1 TAB AT MIGRAINE ONSET, MAY REPEAT IN 2 HOURS NEEDED, MAX 2 TABS IN 24 HOURS 4 Active zolpidem (AMBIEN) 10 mg 4 Active LORazepam (ATIVAN) 1 mg tablet TAKE 1 - 2 TABLETS BY MOUTH PRIOR TO PROCEDURE 4 Active amLODIPine (NORVASC) 10 mg tablet Take 1 tablet by mouth every afternoon. 4 Active hydrocortisone (CORTEF) 10 mg tablet Take 3 tablets by mouth every morning AND 2 tablets every evening. 150 tablet 2 01/29/2024 6:15 PM EDT Active Additional Information Patient not taking.Reason: Discontinued by Another Health Care Provider, Reported on 02/12/2024 hydrocortisone (CORTEF) 5 mg tablet Take 1 tablet daily per taper schedule. 100 tablet 1 4 Active Active Problems Problem Noted Date Diagnosed Date [...] 9:13 AM EDT): Assessment: hx of resection 2018. No chemo or radiation. Assessment & Plan [...] suppurativa of right axilla 013 [place] 10/27/2012 Family History Medical History Relation Comments Diabetes Father Heart disease Father Hypertension Father Diabetes Mother lung cancer Paternal Grandmother Relation Status Comments Father Alive Mother Alive Paternal Grandmother Alive Social History Tobacco Use Types Packs/Day Years Used Date Smoking Tobacco: Every Day Cigarettes Smokeless Tobacco: Never Tobacco Cessation:Ready to Q uit: Not Asked; Counseling Given: Not Answered Alcohol Use Standard Drinks/Week Comments Yes 0 (1 standard drink = 0.6 oz pur e alcohol) Area Deprivation Index Answer Date Bashir rded National Score (1-100), lower number is lower ri sk 59 08/20/2023 State Score (1-10), lower number is lower risk 4 08/20/2023 Data from: https://www.neighborhoodatlas.medicine.[facility].edu/. Last address used for calculation [address] 08/20/2023 Comments No Sex and Gender Information Value Date Recorded Sex Assigned at Not on file Legal Sex Female 11:20 AM EDT Gender Identity Female 08/27/2023 2:21 PM EST Sexual Orientation Not on file Last Filed Vital Signs Vital Sign Reading Time Taken Comments Blood Pressure 120/81 02/12/2024 9:20 AM EDT Pulse 76 02/12/2024 9:20 AM EDT Temperature 36.5 C (97.7 F) 01/29/2024 1:21 PM EDT Respiratory Rate 16 01/29/2024 1:21 PM EDT Oxygen Saturation 98% 02/12/2024 9:20 AM EDT Inhaled Oxygen Concentration - - Weight 76.8 kg (169 lb 5 oz) 02/12/2024 9:20 AM EDT Height 170.2 cm (5' 7 ) 02/12/2024 9:20 AM EDT Body Mass Index 26.52 02/12/2024 9:20 AM EDT Plan of Treatment Health Maintenance Due Date Last Done Comments Annual PCP Team Chronic Disease Visit 2009 HIV Screening 2009 Hepatitis C Screening 2009 DTaP,Tdap,Td Vaccine (1 - Tdap) 2010 Hepatitis B Vaccine (1 of 3 - 19+ 3-dose series) 08/04 Pneumococcal Vaccine (1 of 2 - PCV) 2010 Cervical Cancer Screening 2012 HPV Vaccine (1 - 3-dose SCDM series) 2018 Influenza Vaccine (#1) [address] [place] [address] [address] [place] [place] [address] Care Teams Motorcyles Final Inspector Relationship Specialty Start Date End Date Immanuel Kuhn DO [address] [place] [address] PCP - General Family Medicine 10/23/12 Esther Carbajal MD [address] [facility] [address] [place] [address] Referring Obstetrics 01/28/20 Brendan Carter, PAArunC [address] [facility] [address] [place] [address] Referring Physician Meter Mechanic 08/08/23
--- OUTSIDE RECORDS SUMMARY | 2025-04-21 14:15 | XMS_ITS | Encounter Summary ---
Author Organization [facility] Address [address] [facility] [place] [address] Care Team Providers Care Tunnel Drier Operator Name Role Phone Immanuel Kuhn DO Primary Care Provider [phone] Brendan Carter Unavailable Immanuel Kuhn DO Unavailable [phone] Brendan Carter Unavailable Mikael García DO Unavailable [phone] Jacki Braun [facility] Unavailable [phone] Nely Figueroa [facility] Unavailable [phone] Encounter Details Date Type Department Care Team (Late st Contact Info) Description 01/08/2023 Abstract [facility] [address] [facility] [address] [place] [address] Lluvia Mcintyre LPN Social History Tobacco Use Types Packs/Day Years Used Date Smoking Tobacco: Former Cigarettes Q uit: 08/05/2022 Alcohol Use Standard Drinks/Week Comments Not Currently 0 (1 standard drink = 0.6 oz pur e alcohol) 1-2 cans of soda daily Comments Unknown Sex and Gender Information Value Date Recorded Sex Assigned at Not on file Legal Sex Female 7:20 PM EDT Gender Identity Not on file Sexual Orientation Not on file documented as of this encounter Plan of Treatment Upcoming Encounters Date Type Department Care Team (Late st Contact Info) Description 04/29/2025 2:00 PM EDT Social Work [facility] [address] [place] [address] Jacki Braun, [facility] [address] [place] [address] 05/13/2025 12:00 PM EDT Social Work [facility] [place] [facility] [address] [place] [address] Jacki Braun, [facility] [address] [place] [address] 05/19/2025 3:00 PM EDT Social Work [facility] [place] [facility] [address] [place] [address] Jacki Braun, [facility] [address] [place] [address] 05/20/2025 2:45 PM EDT Office Visit [facility] [place] [facility] [address] [place] [address] Isabel Dunaway DPM [address] [place] [address] 05/26/2025 3:00 PM EDT Social Work [facility] [place] [facility] [address] [place] [address] Jacki Braun, [facility] [address] [place] [address] documented as of this encounter Visit Diagnoses Not on filedocumented in this encounter Care Teams Tunnel Drier Operator Relationship Specialty Start Date End Date Immanuel Kuhn DO [address] [place] [address] PCP - General Family Medicine 12/25/22 Brendan Carter PA [address] [place] [address] [facility] 02/02/23 Immanuel Kuhn, DO [address] [place] [address] [facility] 11/04/23 Brendan Carter PA [address] [place] [address] [facility] 02/03/24 Mikael García, DO [address] [place] [address] [facility] 05/05/24 Jacki Braun, [facility] [address] [place] [address] Videographer Behavioral Health 08/18/24 Nely Figueroa LSW [address] [place] [address] V[facility]ographer Family Medicine 02/03/25 documented as of this encounter
--- OUTSIDE RECORDS SUMMARY | 2025-04-21 14:15 | XMS_ITS | Encounter Summary ---
Author Organization [facility] Address [address] [place] [address] Care Team Providers Care Ambulatory Service Representative Name Role Phone Immanuel Kuhn DO Primary Care Provider [phone] Brendan Carter Unavailable Immanuel Kuhn DO Unavailable [phone] Brendan Carter Unavailable Mikael García DO Unavailable [phone] Jacik Braun [facility] Unavailable [phone] Nely Figueroa [facility] Unavailable [phone] Encounter Details Date Type Department Care Team (Late st Contact Info) Description 04/25/2023 Orders Only [facility] [place] [facility] [address] [place] [address] Mikael García DO [address] [facility] [address] [place] [address] Social History Tobacco Use Types [...] 04/29/2025 2:00 PM EDT Social Work [facility] [place] [facility] [address] [place] [address] Jacki Braun [facility] [address] [place] [address] 05/13/2025 12:00 PM EDT Social Work [facility] [place] [facility] [address] [place] [address] Jacki Braun [facility] [address] [place] [address] 05/19/2025 3:00 PM EDT Social Work [facility] [place] [facility] [address] [place] [address] Jacki Braun [facility] [address] [place] [address] 05/20/2025 2:45 PM EDT Office Visit [facility] [place] [facility] [address] [place] [address] Isabel Dunaway, DPM [address] [place] [address] 05/26/2025 3:00 PM EDT Social Work [facility] [place] [facility] [address] [place] [address] Jacki Braun [facility] [address] [place] [address] documented as of this encounter Visit Diagnoses Not on filedocumented in this encounter Care Teams Ambulatory Service Representative Relationship Specialty Start Date End Date Immanuel Kuhn DO [address] [place] [address] PCP - General Family Medicine 12/25/22 Brendan Carter PA [address] [place] [address] PCP - [facility] 02/02/23 Immanuel Kuhn, DO [address] [place] [address] PCP - [facility] 11/04/23 Brendan Carter PA [address] [place] [address] PCP - [facility] 02/03/24 Miakel García, DO [address] [place] [address] [facility] 05/05/24 Jacki Braun, [facility] [address] [place] [address] Floor [facility] 08/18/24 Nely Figueroa LSW [address] [place] [address] Floor [facility] 02/03/25 documented as of this encounter
--- OUTSIDE RECORDS SUMMARY | 2025-04-21 14:15 | XMS_ITS | Encounter Summary ---
Author Organization [facility] Address [address] [place] [address] Care Team Providers Care Manager Stars Name Role Phone Immanuel Kuhn DO Primary Care Provider [phone] Brendan Carter Unavailable Immanuel Kuhn DO Unavailable [phone] Brendan Carter Unavailable Mikael García DO Unavailable [phone] Jacki Braun [facility] Unavailable Nely Figueroa [facility] Unavailable [phone] Encounter Details Date Type Department Care Team (Late st Contact Info) Description 12/23/2022 Abstract [facility] [address] [facility] [address] [place] [address] Jacki Braun, [facility] [address] [facility] [address] [place] [address] Social History Tobacco Use Types Packs/Day Years Used Date Smoking Tobacco: Former Cigarettes Q uit: 08/05/2022 Tobacco Cessation:Counseling Given: Not Answered Alcohol Use Standard Drinks/Week Comments Not Currently [...] 04/29/2025 2:00 PM EDT Social Work [facility] [address] [place] [address] Jacki Braun, [facility] [address] [place] [address] 05/13/2025 12:00 PM EDT Social Work [facility] [place] [facility] [address] [place] [address] Jacki Braun, [facility] [address] [place] [address] 05/19/2025 3:00 PM EDT Social Work [facility] [place] [facility] [address] [place] [address] Jacki Braun [facility] [address] [place] [address] 05/20/2025 2:45 PM EDT Office Visit [facility] [place] [facility] [address] [place] [address] Isabel Dunaway DPM [address] [place] [address] 05/26/2025 3:00 PM EDT Social Work [facility] [place] [facility] [address] [place] [address] Jacki Braun, [facility] [address] [place] [address] documented as of this encounter Visit Diagnoses Not on filedocumented in this encounter Care Teams Manager Stars Relationship Specialty Start Date End Date Immanuel Kuhn DO [address] [place] [address] PCP - General Family Medicine 12/25/22 Brendan Carter PA [address] [place] [address] PCP - [facility] 02/02/23 Immanuel Kuhn, DO [address] [place] [address] PCP - [facility] 11/04/23 Brendan Carter PA [address] [place] [address] PCP - [facility] 02/03/24 Mikael García, [address] [place] [address] PCP - [facility] 05/05/24 Jacki Braun, [facility] [address] [place] [address] Supervisor [facility] 08/18/24 Nely Figueroa LSW [address] [place] [address] Supervisor [facility] 02/03/25 documented as of this encounter
--- OUTSIDE RECORDS SUMMARY | 2025-04-21 14:15 | XMS_ITS | Encounter Summary ---
Author Organization [facility] Address [address] [place] [address] Care Team Providers Care Technical Mgr Name Role Phone Immanuel Kuhn DO Primary Care Provider [phone] Brendan Carter Unavailable Immanuel Kuhn DO Unavailable [phone] Brendan Carter Unavailable Mikael García DO Unavailable [phone] Jacki Braun [facility] Unavailable [phone] Nely Figueroa [facility] Unavailable [phone] Reason for Visit * Reason Comments Med Refill Encounter Details Date Type Department Care Team (Late st Contact Info) Description 03/15/2023 Refill [facility] [address] [facility] 230 [place] [address] Mikael García DO [address] [facility] [address] [place] [address] LUISITO (generalized anxiety disorder) Social History Tobacco Use Types Packs/Day Years [...] [address] [place] [address] Jacki Braun [facility] [address] [place] [address] 05/13/2025 12:00 PM EDT Social Work [facility] [address] [place] [address] Jacki Braun [facility] [address] [place] [address] 05/19/2025 3:00 PM EDT Social Work [facility] [facility] [address] [place] [address] Jacki Braun, [facility] [address] [place] [address] 05/20/2025 2:45 PM EDT Office Visit [facility] [address] [place] [address] Isabel Dunaway DPM [address] [place] [address] 05/26/2025 3:00 PM EDT Social Work [facility] [address] [place] [address] Jacki Braun, [facility] [address] [place] [address] documented as of this encounter Visit Diagnoses Diagnosis LUISITO (generalized anxiety disorder) Generalized anxiety disorder documented in this encounter Care Teams Technical Mgr Relationship Specialty Start Date End Date Immanuel Kuhn DO [address] [place] [address] PCP - General Family Medicine 12/25/22 Brendan Carter, PA [address] [place] [address] PCP - [facility] 02/02/23 Immanuel Kuhn, DO [address] [place] [address] PCP - [facility] 11/04/23 Brendan Carter PA [address] [place] [address] [facility] 02/03/24 Mikael García, DO [address] [place] [address] [facility] 05/05/24 Jacki Braun, [facility] [address] [place] [address] Manager Art Behavioral Health 08/18/24 Nely Figueroa LSW [address] [place] [address] Manager Art Family Medicine 02/03/25 documented as of this encounter
--- OUTSIDE RECORDS SUMMARY | 2025-04-21 14:15 | XMS_ITS | Encounter Summary ---
Author Organization [facility] Address [address] [place] [address] Care Team Providers Care Day Trader Name Role Phone Immanuel Kuhn DO Primary Care Provider [phone] Mikael García DO Unavailable [phone] Jacki Braun [facility] Unavailable [phone] HenryAnnettaNely OAKES MACHINE OPERATOR Unavailable [phone] Encounter Details Date Type Department Care Team (Late st Contact Info) Description 06/09/2024 Abstract [facility] [address] [facility] [address] [place] [address] Immanuel Kuhn, DO [address] [facility] [address] [place] [address] Social History Tobacco Use Types Packs/Day Years [...] Work [facility] [address] [facility] [address] [place] [address] Jacki Braun, [facility] [address] [place] [address] 05/13/2025 12:00 PM EDT Social Work [facility] [place] [facility] [address] [place] [address] Jacki Braun, [facility] [address] [place] [address] 05/19/2025 3:00 PM EDT Social Work [facility] [place] [facility] [address] [place] [address] Jacki Braun, [facility] [address] [place] [address] 05/20/2025 2:45 PM EDT Office Visit [facility] [place] [facility] [address] [place] [address] Isabel Dunaway DPM [address] [place] [address] 05/26/2025 3:00 PM EDT Social Work [facility] [place] [facility] [address] [place] [address] Jacki Braun, [facility] [address] [place] [address] documented as of this encounter Visit Diagnoses Not on filedocumented in this encounter Care Teams Day Trader Relationship Specialty Start Date End Date Immanuel Kuhn DO [address] [place] [address] PCP - General Family Medicine 12/25/22 Mikael García DO [address] [place] [address] [facility] 05/05/24 Jacki Braun, [facility] [address] [place] [address] Ed Special Education Teacher Behavioral Health 08/18/24 Nely Figueroa LSW [address] [place] [address] Ed Special Education Teacher Family Medicine 02/03/25 documented as of this encounter
--- OUTSIDE RECORDS SUMMARY | 2025-04-21 14:15 | XMS_ITS | Encounter Summary ---
Author Organization [facility] Address [address] [place] [address] Care Team Providers Care Electronics Design Engineer Name Role Phone Immanuel Kuhn DO Primary Care Provider [phone] Esther Carbajal MD Unavailable [phone] Brendan Carter PA-C Unavailable [phone] Source Comments In the event this information is protected by the Federal Confidentiality of Alcohol and Drug AbusePatient Records regulations: The Federal rules restrict any use of the information to criminally investigate or prosecute any alcohol or drug abuse patient.[facility] Encounter Details Date Type Department Care Team (Late st Contact Info) Description 04/17/2024 Patient Msg Endocrinology [address] [place] [address] [place] [address] [place] [address] ACTH stim test results Social History Tobacco Use Types Packs/Day Years Used Date Smoking Tobacco: Every Day Cigarettes Smokeless Tobacco: Never Alcohol Use Standard Drinks/Week Comments Yes 0 (1 standard drink = 0.6 oz pur e alcohol) Area Deprivation Index Answer Date Bashir rded National Score (1-100), lower number is lower ri sk 59 08/20/2023 State Score (1-10), lower number is lower risk 4 08/20/2023 Data from: https://www.neighborhoodatlas.medicine.[facility]/. Last address used for calculation [facility] 08/20/2023 Comments No Sex and Gender Information Value Date Recorded Sex Assigned at Not on file Legal Sex Female 11:20 AM EDT Gender Identity Female 08/27/2023 2:21 PM EST Sexual Orientation Not on file documented as of this encounter Functional Status * Are you deaf or do you have serious difficulty hearing? Answer Date of Assessment Author No 01/29/2024 5:55 PM EDT Phuong Baumann RN * Are you blind or do you have serious difficulty seeing, even when wearing glasses? Answer Date of Assessment Author No 01/29/2024 5:55 PM EDT Phuong Baumann RN * Do you have serious difficulty walking or climbing stairs? Answer Date of Assessment Author No 01/29/2024 5:55 PM EDT Phoung Baumann RN * Do you have difficulty dressing or bathing? Answer Date of Assessment Author No 01/29/2024 5:55 PM EDT Phuong Baumann RN * Because of a physical, mental, or emotional condition, do you have difficulty doing errands alone such as visiting a doctor's office or shopping? Answer Date of Assessment Author No 01/29/2024 5:55 PM EDT Phuong Baumann RN documented as of this encounter Mental Status * Because of a physical, mental, or emotional condition, do you have serious difficulty concentrating, remembering, or making decisions? Answer Entry Date Author No 01/29/2024 5:55 PM EDT Phuong Baumann RN documented in this encounter Plan of Treatment Not on file documented as of this encounter Visit Diagnoses Not on filedocumented in this encounter Care Teams Electronics Design Engineer Relationship Specialty Start Date End Date Immanuel Kuhn DO [address] [place] [address] PCP - General Family Medicine 10/23/12 Esther Carbajal MD [address] [facility] [address] [place] [address] Referring Obstetrics 01/28/20 Brendan Carter [facility] [address] [facility] 230 [place] [address] Referring Physician Supervisor Shearing 08/08/23 documented as of this encounter
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
--- OUTSIDE RECORDS SUMMARY | 2025-04-21 14:16 | XMS_ITS | Encounter Summary ---
Author Organization [facility] Address [address] [place] [address] Care Team Providers Care Bank Cashier Name Role Phone Immanuel Kuhn DO Primary Care Provider [phone] Esther Carbajal MD Unavailable [phone] Brendan Carter PA-C Unavailable [phone] Source Comments In the event this information is protected by the Federal Confidentiality of Alcohol and Drug AbusePatient Records regulations: The Federal rules restrict any use of the information to criminally investigate or prosecute any alcohol or drug abuse patient.[facility] Encounter Details Date Type Department Care Team (Late st Contact Info) Description 01/01/2024 Patient Msg Endocrine Surgery [address] [place] [address] Provider, [facility] Pre-op Appointments Social History Tobacco Use Types Packs/Day Years Used Date Smoking Tobacco: Every Day Cigarettes Smokeless Tobacco: Never Alcohol Use Standard Drinks/Week Comments Yes 0 (1 standard drink = 0.6 oz pur e alcohol) Area Deprivation Index Answer Date Bashir rded National Score (1-100), lower number is lower ri sk 59 08/20/2023 State Score (1-10), lower number is lower risk 4 08/20/2023 Data from: https://www.neighborhoodatlas.[facility]/. Last address used for calculation [address] [place] [address] [address] 08/20/2023 Comments No Sex and Gender Information Value Date Recorded Sex Assigned at Not on file Legal Sex Female 11:20 AM EDT Gender Identity Female 08/27/2023 2:21 PM EST Sexual Orientation Not on file documented as of this encounter Plan of Treatment Not on file documented as of this encounter Visit Diagnoses Not on filedocumented in this encounter Care Teams Bank Cashier Relationship Specialty Start Date End Date Immanuel Kuhn DO [address] [facility] [address] [place] [address] PCP - General Family Medicine 10/23/12 Esther Carbajal MD [address] [place] [address] Referring Obstetrics 01/28/20 Brendan Carter, PA-C [address] [place] [address] Referring Physician Licensed Audiologist 08/08/23 documented as of this encounter
--- OUTSIDE RECORDS SUMMARY | 2025-04-21 14:16 | XMS_ITS | Encounter Summary ---
Author Organization [facility] Address [id number] [address] [place] [address] Care Team Providers Care Electrical Inspector Name Role Phone Immanuel Kuhn DO Primary Care Provider [phone] Reason for Visit * Reason Onset Date Comments Appointment 10/23/2022 Encounter Details Date Type Department Care Team (Late st Contact Info) Description 10/23/2022 Telephone [facility] [address] [facility] [address] [place] [address] Miley Sellers [facility] Appointment Social History Tobacco Use Types Packs/Day Years Used Date Smoking Tobacco: Every Day Cigarettes Alcohol Use Standard Drinks/Week Comments Not Currently 0 (1 standard drink = 0.6 oz pur e alcohol) Childcare Answer Date Recorded Childcare Unknown 01/15/2019 Employment Answer Date Recorded Employment Unknown 01/15/2019 Purpose - Life Answer Date Recorded Purpose and direction in life Unknown Comments Unknown Sex and Gender Information Value Date Recorded Sex Assigned at Not on file Legal Sex Female 10:49 AM EST Gender Identity Not on file Sexual Orientation Not on file COVID-19 Exposure Response Date Recorded In the last month, have you been in contact with someone who was confirmed or suspected to have Coronavirus / COVID-19? No / Unsure 10/24/2022 11:22 AM EDT documented as of this encounter Plan of Treatment Not on file documented as of this encounter Visit Diagnoses Not on filedocumented in this encounter Care Teams Electrical Inspector Relationship Specialty Start Date End Date Immanuel Kuhn DO [address] [facility] [place] [address] PCP - General Family Medicine 06/26/22 documented as of this encounter
--- OUTSIDE RECORDS SUMMARY | 2025-04-21 14:16 | XMS_ITS | Encounter Summary ---
Author Organization [facility] Address [id number] [address] [place] [address] Care Team Providers Care Investigation Manager Name Role Phone Immaunel Kuhn DO Primary Care Provider [phone] Encounter Details Date Type Department Care Team (Late st Contact Info) Description 09/13/2022 Orders Only [facility] [address] [facility] [address] [place] [address] External, Scanning Provider Social History Tobacco Use Types Packs/Day Years [...] have Coronavirus / COVID-19? No / Unsure 09/13/2022 2:11 PM EST documented as of this encounter Plan of Treatment Not on file documented as of this encounter Procedures Procedure Name Priority Date/Time Associated Diagnosis Comments POTASSIUM Routine 09/13/2022 PHOSPHORUS Routine 09/07/2022 MAGNESIUM Routine 09/07/2022 BASIC METABOLIC PANEL Routine 09/07/2022 documented in this encounter Results * Potassium (09/13/2022) us Scanning Provider External LAB BLOOD ORDERABLES Final Result Performing Organization Address City/[facility] Co de Phone Number MANUALLY TRANSCRIBED RESULTS * Basic Metabolic Panel (09/07/2022) us Scanning Provider External LAB BLOOD ORDERABLES Final Result Performing Organization Address City/[facility] Co de Phone Number MANUALLY TRANSCRIBED RESULTS * Phosphorus (09/07/2022) us Scanning Provider External LAB BLOOD ORDERABLES Final Result Performing Organization Address City/[facility] de Phone Number MANUALLY TRANSCRIBED RESULTS * Magnesium (09/07/2022) us Scanning Provider External LAB BLOOD ORDERABLES Final Result Performing Organization Address [facility] de Phone Number MANUALLY TRANSCRIBED RESULTS documented in this encounter Visit Diagnoses Not on filedocumented in this encounter Care Teams Investigation Manager Relationship Specialty Start Date End Date Immanuel Kuhn DO [address] [place] [address] PCP - General Family Medicine 06/26/22 documented as of this encounter
--- OUTSIDE RECORDS SUMMARY | 2025-04-21 14:16 | XMS_ITS | Patient Health Record ---
Author Organization [facility] Address [address] [place] [address] [address] [place] [address] Care Team Providers Care Booth Cashier Name Role Phone GEORGE GOMEZ Unavailable [phone] Dami Benson Unavailable Unavailable Allergies No Known Allergies Reason For Referral No Information Medications Medication SIG (Take, Route, Frequency, Duration) Notes Start Date End Date Status SEROquel 50 MG 1 tablet at bedtime Orally Once a day Active Potassium Chloride ER 20 MEQ 1 tablet with food Orally Once a day Active lamoTRIgine 25 MG 1 tablet Orally Active Cetirizine HCl 10 MG 1 tablet Orally Onc e a day Active hydrALAZINE HCl 25 MG 1 tablet with food Orally Three times a day Active Carvedilol 25 MG 1 tablet with food O rally Twice a day Active amLODIPine Besylate 10 MG 1 tablet Orall y Once a day Active Social History Tobacco Use: Social History Observation Description Date Details (start date - stop date) Current Smoker NA - NA Tobacco Use/Smoking Question Answer Notes Are you a current every day smoker Problems Problem Type SNOMED Code ICD Code Onset Dates Problem Status W/U Status Risk Notes Problem Obstructive sleep apnea syndrome (95237761) SAIMA (obstructive sleep apnea) (G47.33) Active confirmed Problem Essential hypertension (82665085) Essential hypertension (I10) Active confirmed Problem Headache (23136054) Headache, unspecified (R51.9) Active confirmed Problem Preoperative pulmonary examination (548252823) Pre-operative respiratory examination (Z01.811) Active confirmed Problem Depression (126076728) Depression, unspecified (F32.A) Active confirmed Plan Of Treatment Pending Test Test Name Order Date CPAP/BIPAP/ASV Titration 09/05/2021 Insurance Providers Payer Name Payer Address Payer Phone Subscriber Number Group Number Insured Name Patient Relationship to Insured Coverage Start Date Coverage End Date [employer] [place] [employer] [address] [phone] [id number] Mary Joy Self - patient is the insured Medical (General) History Medical History History ICD Code Essential hypertension I10 Depression, unspecified F32.A Headache, unspecified R51.9 Pre-operative respiratory examination Z0 1.811 Surgical History Surgery Date(Month/Year) Brain Surgery 08/2018 Foot Surgery 03/2017
--- OUTSIDE RECORDS SUMMARY | 2025-04-21 14:16 | XMS_ITS | Encounter Summary ---
Author Organization [facility] Address [address] [place] [address] Care Team Providers Care Wharf Operator Name Role Phone Immanuel Kuhn DO Primary Care Provider [phone] Mikael García DO Unavailable [phone] Jacki Braun [facility] Unavailable [phone] Nely Figueroa Unavailable [phone] Encounter Details Date Type Department Care Team (Late st Contact Info) Description 04/02/2025 Patient Outreach [facility] [address] [place] [address] Nely Figueroa LSW [address] [facility] [address] [place] [address] Social History Tobacco Use Types Packs/Day Years [...] as of this encounter Progress Notes * OSKAR Adrian - 04/02/2025 1:30 PM EDT Chart reviewed. Call placed for monthly outreach. Message left. <April 06, 2025, 10:04 - OSKAR Adrian> No call back. Will try again in a couple of weeks. documented in this encounter Plan of Treatment Upcoming Encounters Date Type Department Care Team (Late st Contact Info) Description 04/29/2025 2:00 PM EDT Social Work [facility] [address] [place] [address] Jacki Braun [facility] [address] [place] [address] 05/13/2025 12:00 PM EDT Social Work [facility] [address] [place] [address] Jacki Braun [facility] [address] [place] [address] 05/19/2025 3:00 PM EDT Social Work [facility] [address] [place] [address] Jacki Braun [facility] [address] [place] [address] 05/20/2025 2:45 PM EDT Office Visit [facility] [address] [place] [address] Isabel Dunaway DPM [address] [place] [address] 05/26/2025 3:00 PM EDT Social Work [facility] [address] [place] [address] Jacki Braun [facility] [address] [place] [address] documented as of this encounter Visit Diagnoses Diagnosis Primary hypertension- Primary Unspecified essential hypertension Generalized anxiety disorder Generalized anxiety disorder documented in this encounter Additional Health Concerns Assessment Noted Time PHQ-9 Depression Total Score: 11 01/27/ 025 8:53 AM EDT documented as of this encounter Care Teams Wharf Operator Relationship Specialty Start Date End Date Immanuel Kuhn, [address] [place] [address] PCP - General Family Medicine 12/25/22 Mikael García DO [address] [place] [address] PCP - [facility] 05/05/24 Jacki Braun, [facility] [address] [place] [address] Media Center Assistant Behavioral Health 08/18/24 Nely Figueroa LSW [address] [place] [address] Media Center Assistant Family Medicine 02/03/25 documented as of this encounter
--- OUTSIDE RECORDS SUMMARY | 2025-04-21 14:16 | XMS_ITS | Encounter Summary ---
Author Organization [facility] Address [address] [place] [address] Care Team Providers Care Dental Technician Metal Name Role Phone Immanuel Kuhn DO Primary Care Provider [phone] Esther Carbajal MD Unavailable [phone] Brendan Carter PA-C Unavailable [phone] Source Comments In the event this information is protected by the Federal Confidentiality of Alcohol and Drug AbusePatient Records regulations: The Federal rules restrict any use of the information to criminally investigate or prosecute any alcohol or drug abuse patient.[facility] Encounter Details Date Type Department Care Team (Late st Contact Info) Description 09/05/2023 Patient Msg Endocrinology [address] [place], [place] [id number] Provider, [facility] Appointment Scheduled Social History Tobacco Use Types Packs/Day Years Used Date Smoking Tobacco: Never Smokeless Tobacco: Never Alcohol Use Standard Drinks/Week Comments Yes 0 (1 standard drink = 0.6 oz pur e alcohol) Area Deprivation Index Answer Date Bashir rded National Score (1-100), lower number is lower ri sk 59 08/20/2023 State Score (1-10), lower number is lower risk 4 08/20/2023 Data from: https://www.neighborhoodatlas.[facility]/. Last address used for calculation [address] [place] [address] [address] 08/20/2023 Comments Unknown Sex and Gender Information Value Date Recorded Sex Assigned at Not on file Legal Sex Female 11:20 AM EDT Gender Identity Female 08/27/2023 2:21 PM EST Sexual Orientation Not on file documented as of this encounter Plan of Treatment Not on file documented as of this encounter Visit Diagnoses Not on filedocumented in this encounter Care Teams Dental Technician Metal Relationship Specialty Start Date End Date Immanuel Kuhn DO [address] [facility] [address] [place] [address] PCP - General Family Medicine 10/23/12 Esther Carbajal MD [address] [place] [address] Referring Obstetrics 01/28/20 Brendan Carter, [facility] [address] [place] [address] Referring Physician Mainframe Architect 08/08/23 documented as of this encounter
--- OUTSIDE RECORDS SUMMARY | 2025-04-21 14:16 | XMS_ITS | Encounter Summary ---
Author Organization [facility] Address [address] [place] [address] Care Team Providers Care Stranner Name Role Phone Immanuel Kuhn Primary Care Provider [phone] Mikael García DO Unavailable [phone] Jacki Braun [facility] Unavailable [phone] Henry Nely POWER CHECKER Unavailable [phone] Encounter Details Date Type Department Care Team (Late st Contact Info) Description 04/14/2025 Bamboo flowsheet ELIZABETH Starks [facility] [address] [place] [address] Jacki Braun, [facility] [address] [place] [address] Social History Tobacco Use Types Packs/Day Years [...] 04/29/2025 2:00 PM EDT Social Work [facility] [address] [place] [address] Jacki Braun [facility] [address] [place] [address] 05/13/2025 12:00 PM EDT Social Work [facility] [address] [place] [address] Jacki Braun [facility] [address] [place] [address] 05/19/2025 3:00 PM EDT Social Work [facility] [address] [place] [address] Jacki Braun [facility] [address] [place] [address] 05/20/2025 2:45 PM EDT Office Visit [facility] [place] [address] [place] [address] Isabel Dunaway DPM [address] [place] [address] 05/26/2025 3:00 PM EDT Social Work [facility] [address] [place] [address] Jacki Braun [facility] [address] [place] [address] documented as of this encounter Visit Diagnoses Not on filedocumented in this encounter Additional Health Concerns Assessment Noted Time PHQ-9 Depression Total Score: 11 01/27/ 025 8:53 AM EDT documented as of this encounter Care Teams Stranner Relationship Specialty Start Date End Date Immanuel Kuhn DO [address] [place] [address] PCP - General Family Medicine 12/25/22 Mikael García DO [address] [place] [address] PCP - [facility] 05/05/24 Jacki Braun, [facility] [address] [place] [address] [facility] 08/18/24 Nely Figueroa LSW [address] [place] [address] [facility] Family Medicine 02/03/25 documented as of this encounter
--- OUTSIDE RECORDS SUMMARY | 2025-04-21 14:16 | XMS_ITS | Encounter Summary ---
Author Organization [facility] Address [address] [place] [address] Care Team Providers Care Crawler Crane Operator Name Role Phone Immanuel Kuhn DO Primary Care Provider [phone] Esther Carbajal MD Unavailable [phone] Brendan Carter PA-C Unavailable [phone] Source Comments In the event this information is protected by the Federal Confidentiality of Alcohol and Drug AbusePatient Records regulations: The Federal rules restrict any use of the information to criminally investigate or prosecute any alcohol or drug abuse patient.[facility] Encounter Details Date Type Department Care Team (Late st Contact Info) Description 11/08/2023 Patient Msg Endocrine Surgery [address] [place] [address] Provider, [facility] Pre-op Appointments Social [...] is lower risk 4 08/20/2023 Data from: https://www.neighborhoodatlas.[facility]/. Last address used for calculation [facility] 08/20/2023 Comments Unknown Sex and Gender Information Value Date Recorded Sex Assigned at Not on file Legal Sex Female 11:20 AM EDT Gender Identity Female 08/27/2023 2:21 PM EST Sexual Orientation Not on file documented as of this encounter Plan of Treatment Not on file documented as of this encounter Visit Diagnoses Not on filedocumented in this encounter Care Teams Crawler Crane Operator Relationship Specialty Start Date End Date Immanuel Kuhn DO [address] [place] [address] PCP - General Family Medicine 10/23/12 Esther Carbajal MD [address] [place] [address] Referring Obstetrics 01/28/20 Brendan Carter, [facility] [address] [place] [address] Referring Physician Wallpaper Printer 08/08/23 documented as of this encounter
--- OUTSIDE RECORDS SUMMARY | 2025-04-21 14:16 | XMS_ITS | Encounter Summary ---
Author Organization [facility] Address [address] [place] [address] Care Team Providers Care Operator Vacuum Name Role Phone BamImmanuel Tatyana DO Primary Care Provider [phone] Mikael García DO Unavailable [phone] Jacki Barun [facility] Unavailable [phone] HenryNely LICENSED PHARMACIST Unavailable [phone] Encounter Details Date Type Department Care Team (Latest Contact Info) Description 04/19/2025 Travel Social History Tobacco Use Types Packs/Day Years [...] Health [address] [place] [address] Jacki Braun, [facility] [address] [place] [address] 05/13/2025 12:00 PM EDT Social Work [facility] [address] [place] [address] Jacki Braun, [facility] [address] [place] [address] 05/19/2025 3:00 PM EDT Social Work [facility] [place] [facility] [address] [place] [address] Jacki Braun, [facility] [address] [place] [address] 05/20/2025 2:45 PM EDT Office Visit [facility] [address] [place] [address] Isabel Dunaway DPM [address] [place] [address] 05/26/2025 3:00 PM EDT Social Work [facility] [place] [facility] [address] [place] [address] Jacki Braun, [facility] [address] [place] [address] documented as of this encounter Visit Diagnoses Not on filedocumented in this encounter Additional Health Concerns Assessment Noted Time PHQ-9 Depression Total Score: 11 025 8:53 AM EDT documented as of this encounter Care Teams Operator Vacuum Relationship Specialty Start Date End Date Immanuel Kuhn DO [address] [place] [address] PCP - General Family Medicine 12/25/22 Mikael García DO [address] [place] [address] [facility] 05/05/24 Jacki Braun, [facility] [address] [place] [address] [facility] 08/18/24 Nely Figueroa LSW [address] [place] [address] [facility] 02/03/25 documented as of this encounter
--- OUTSIDE RECORDS SUMMARY | 2025-04-21 14:16 | XMS_ITS | Encounter Summary ---
Author Organization [facility] Address [address] [place] [address] Care Team Providers Care Nuclear Cardiology Technologist Name Role Phone Immanuel Kuhn DO Primary Care Provider [phone] Immanuel Kuhn DO Unavailable [phone] Brendan Carter PA Unavailable Mikael García DO Unavailable [phone] Jacki Braun [facility] Unavailable [phone] Nely Figueroa [facility] Unavailable [phone] Encounter Details Date Type Department Care Team (Late st Contact Info) Description 12/11/2023 Abstract [facility] [place] [facility] [address] [place] [address] Immanuel Kuhn DO [address] [facility] [address] [place] [address] Social History Tobacco Use Types Packs/Day Years [...] as of this encounter Functional Status * Over the past 2 weeks, how often have you been bothered by any of the following problems? Question Answer Date of Assessment Author Little interest or pleasure in doing things Not at all 12/12/2023 2:22 PM EDT Phuong Leone MA Feeling down, depressed, or hopeless Not at all 12/12/2023 2:22 PM EDT Phuong Leone MA Patient Health Questionnaire -2 Score 0 12/12/2023 2:22 PM EDT Phuong Leone MA documented as of this encounter Plan of Treatment Upcoming Encounters Date Type Department Care Team (Late st Contact Info) Description 04/29/2025 2:00 PM EDT Social Work [facility] [place] [facility] [address] [place] [address] Jacki Braun, [facility] [address] [place] [address] 05/13/2025 12:00 PM EDT Social Work [facility] [place] [facility] [address] [place] [address] Jacki Braun, [facility] [address] [place] [address] 05/19/2025 3:00 PM EDT Social Work [facility] [place] [facility] [address] [place] [address] Jacki Braun, [facility] [address] [place] [address] 05/20/2025 2:45 PM EDT Office Visit [facility] [address] [place] [address] Isabel Dunaway DPM [address] [place] [address] 05/26/2025 3:00 PM EDT Social Work [facility] [address] [place] [address] Jacki Braun, [facility] [address] [place] [address] documented as of this encounter Visit Diagnoses Not on filedocumented in this encounter Care Teams Nuclear Cardiology Technologist Relationship Specialty Start Date End Date Immanuel Kuhn, DO [address] [place] [address] PCP - General Family Medicine 12/25/22 Immanuel Kuhn, DO [address] [place] [address] PCP - [facility] 11/04/23 Brendan Carter PA [address] [place] [address] PCP - [facility] 02/03/24 Mikael García DO [address] [place] [address] PCP - [facility] 05/05/24 Jacki Braun, [facility] [address] [place] [address] [facility] 08/18/24 Nely Figueroa LSW [address] [place] [address] [facility] 02/03/25 documented as of this encounter
--- OUTSIDE RECORDS SUMMARY | 2025-04-21 14:16 | XMS_ITS | Encounter Summary ---
Author Organization [facility] Address [address] [place] [address] Care Team Providers Care Manager Perioperative Name Role Phone Immanuel Kuhn DO Primary Care Provider [phone] Immanuel Kuhn DO Unavailable [phone] Brendan Carter Unavailable Mikael Garcaí DO Unavailable [phone] Jacki Braun [facility] Unavailable [phone] Nely Figueroa [facility] Unavailable [phone] Encounter Details Date Type Department Care Team (Late st Contact Info) Description 01/27/2024 Clinisync Result Encounter [facility] External Department Unsolicited Provider, Generic External Data Social History Tobacco Use Types Packs/Day Years [...] Encounters Date Type Department Care Team (Late Contact Info) Description 04/29/2025 2:00 PM EDT Social Work [facility] [place] [facility] [address] [place] [address] Jacki Braun, [facility] [address] [facility] [address] [place] [address] 05/13/2025 12:00 PM EDT Social Work [facility] [place] [facility] [address] [place] [address] Jacki Braun, [facility] [address] [place] [address] 05/19/2025 3:00 PM EDT Social Work [facility] [address] [place] [address] Jcaki Braun, [facility] [address] [place] [address] 05/20/2025 2:45 PM EDT Office Visit [facility] [address] [place] [address] Isabel Dunaway DPM [address] [place] [address] 05/26/2025 3:00 PM EDT Social Work [facility] [address] [place] [address] Jacki Braun, [facility] [address] [place] [address] documented as of this encounter Procedures Procedure Name Priority Date/Time Associated Diagnosis Comments ECG 12-LEAD 01/27/2024 8:19 PM EDT documented in this encounter Results * ECG 12 lead (01/27/2024 8:19 PM EDT) 01/27/2024 8:19 PM EDT Narrative [facility] - 02/05/2024 3:18 PM EDT Ventricular Rate : 53 BPM Atrial Rate : 53 BPM P-R Interval : 252 ms QRS Duration : 102 ms Q-T Interval : 412 ms QTC Calculation(Bazett) : 386 ms Calculated P Carlton : 28 degrees Calculated R Carlton : 22 degrees Calculated T Carlton : 30 degrees SINUS BRADYCARDIA WITH MARKED SINUS ARRHYTHMIA WITH 1ST DEGREE AV BLOCK OTHERWISE NORMAL ECG Confirmed by AMBER MACHUCA MD ([id number]) on 02/05/2024 3:18:51 PM NAME : MARY DE LA VEGA PID : [id number] : 1990 Gender : Female Race : ORD : [id number] Procedure Date : Jan 27 2024 20:19:36 Edit Date : Feb 05 2024 15:18:53 Diagnosis: SINUS BRADYCARDIA WITH MARKED SINUS ARRHYTHMIA WITH 1ST DEGREE AV BLOCK OTHERWISE NORMAL ECG Confirmed by AMBER MACHUCA MD ([id number]) on 02/05/2024 3:18:51 PM Test Reason : Pre-OP Location : 74 : 1 H071-17 Overread By : AMBER MACHUCA MD Edited By : AMBER MACHUCA MD Referred By : , Acquired by : NEDRA ELIZABETH Procedure Note Radiology, Radiologist, MD - 02/05/2024 Ventricular Rate : 53 BPM Atrial Rate : 53 BPM P-R Interval : 252 ms QRS Duration : 102 ms Q-T Interval : 412 ms QTC Calculation(Bazett) : 386 ms Calculated P Carlton : 28 degrees Calculated R Carlton : 22 degrees Calculated T Carlton : 30 degrees SINUS BRADYCARDIA WITH MARKED SINUS ARRHYTHMIA WITH 1ST DEGREE AV BLOCK OTHERWISE NORMAL ECG Confirmed by AMBER MACHUCA MD ([id number]) on 02/05/2024 3:18:51 PM NAME : HONORIO DE LA VEGAHEL PID : [id number] : 1990 Gender : Female Race : ORD : [id number] Procedure Date : Jan 27 2024 20:19:36 Edit Date : Feb 05 2024 15:18:53 Diagnosis: SINUS BRADYCARDIA WITH MARKED SINUS ARRHYTHMIA WITH 1ST DEGREEAV BLOCK OTHERWISE NORMAL ECG Confirmed by AMBER MACHUCA MD ([id number]) on 02/05/2024 3:18:51 PM Test Reason : Pre-OP Location : : [facility] H071-17 Overread By : AMBER MACHUCA MD Edited By : AMBER MACHUCA MD Referred By : , Acquired by : NEDRA ELIZABETH us Generic External Data Provider ECG ORDERABLES F inal Result [facility] documented in this encounter Visit Diagnoses Not on filedocumented in this encounter Care Teams Manager Perioperative Relationship Specialty Start Date End Date Immanuel Kuhn, DO [address] [place] [address] PCP - General Family Medicine 12/25/22 Immanuel Kuhn DO [address] [place] [address] PCP - [facility] 11/04/23 Brendan Carter PA [address] [place] [address] PCP - [facility] 02/03/24 Mikael García DO [address] [place] [address] PCP - [facility] 05/05/24 Jacki Braun, [facility] [address] [place] [address] [facility] 08/18/24 Nely Figueroa LSW [address] [place] [address] [facility] 02/03/25 documented as of this encounter
--- OUTSIDE RECORDS SUMMARY | 2025-04-21 14:16 | XMS_ITS | Encounter Summary ---
Author Organization [facility] Address [address] [place] [address] Care Team Providers Care Commodities Manager Name Role Phone Immanuel Kuhn DO Primary Care Provider [phone] Mikael García DO Unavailable [phone] Jacki Braun [facility] Unavailable [phone] Henry Nely TIRE RECAPPER Unavailable [phone] Encounter Details Date Type Department Care Team (Late st Contact Info) Description 04/19/2025 Bamboo flowsheet [facility] [address] [place] [address] Isabel Dunaway DPM [address] [place] [address] Social History Tobacco Use Types Packs/Day Years [...] 04/29/2025 2:00 PM EDT Social Work [facility] [facility] [address] [place] [address] Jacki Braun [facility] [address] [place] [address] 05/13/2025 12:00 PM EDT Social Work [facility] [place] [facility] [address] [place] [address] Jacki Braun [facility] [address] [place] [address] 05/19/2025 3:00 PM EDT Social Work [facility] [address] [place] [address] Jacki Braun [facility] [address] [place] [address] 05/20/2025 2:45 PM EDT Office Visit [facility] [facility] [address] [place] [address] Isabel Dunaway DPM [address] [place] [address] 05/26/2025 3:00 PM EDT Social Work [facility] [place] [facility] [address] [place] [address] Jacki Braun, [facility] [address] [place] [address] documented as of this encounter Visit Diagnoses Not on filedocumented in this encounter Additional Health Concerns Assessment Noted Time PHQ-9 Depression Total Score: 11 01/27/ 025 8:53 AM EDT documented as of this encounter Care Teams Commodities Manager Relationship Specialty Start Date End Date Immanuel Kuhn DO [address] [place] [address] PCP - General Family Medicine 12/25/22 Mikael García DO [address] [place] [address] PCP - [facility] 05/05/24 Jacki Braun, [facility] [address] [place] [address] [facility] 08/18/24 Nely Figueroa LSW [address] [place] [address] [facility] 02/03/25 documented as of this encounter
--- OUTSIDE RECORDS SUMMARY | 2025-04-21 14:16 | XMS_ITS | Encounter Summary ---
Author Organization [facility] Address [address] [place] [address] Care Team Providers Care Medium Cycle Salesperson Name Role Phone Immanuel Kuhn DO Primary Care Provider [phone] Esther Carbajal MD Unavailable [phone] Brendan Carter PA-C Unavailable [phone] Source Comments In the event this information is protected by the Federal Confidentiality of Alcohol and Drug AbusePatient Records regulations: The Federal rules restrict any use of the information to criminally investigate or prosecute any alcohol or drug abuse patient.[facility] Encounter Details Date Type Department Care Team (Late st Contact Info) Description 09/05/2023 Get Medical Advice Endocrinology [address] [place] [address] [place] [address] [place] [address] Dr. Ralph lab work Social History Tobacco Use Types Packs/Day Years [...] 4 08/20/2023 Data from: https://www.neighborhoodatlas.medicine.[facility].edu/. Last address used for calculation [address] 08/20/2023 Comments Unknown Sex and Gender Information Value Date Recorded Sex Assigned at Not on file Legal Sex Female 11:20 AM EDT Gender Identity Female 08/27/2023 2:21 PM EST Sexual Orientation Not on file documented as of this encounter Miscellaneous Notes * Telephone Encounter - Miley Roque RN - 09/05/2023 10:33 AM EST BETTY: 08/20/2023 Per pt, her CT images from [facility] stated that the images from 06/27 should be in pts chart in24-48 hours. Pt sent screen shots of lab work. FYI. documented in this encounter Plan of Treatment Not on file documented as of this encounter Visit Diagnoses Not on filedocumented in this encounter Care Teams Medium Cycle Salesperson Relationship Specialty Start Date End Date Immanuel Kuhn DO [address] [place] [address] PCP - General Family Medicine 10/23/12 Esther Carbajal MD [address] [place] [address] Referring Obstetrics 01/28/20 Brendan Carter, [facility] [address] [place] [address] Referring Physician Stockbroker 08/08/23 documented as of this encounter
--- OUTSIDE RECORDS SUMMARY | 2025-04-21 14:16 | XMS_ITS ---
Author Organization [facility] Address [address] [place] [address] Care Team Providers Care Register Repairer Name Role Phone Immanuel Kuhn DO Primary Care Provider [phone] Mikael García DO Unavailable [phone] Jacki Braun [facility] Unavailable [phone] Henry Nely [employer] Unavailable [phone] Active Problems Problem Noted Date Diagnosed Date History of gastric bypass 05/06/2024 RUQ pain 05/06/2024 Secondary adrenal insufficiency 02/12/2024 Nicotine use disorder 01/28/2024 Nicotine dependence 01/28/2024 Abdominal pain 01/23/2024 History of hypokalemia 01/20/2024 Overview (05/06/2024): Last Assessment & Plan: Assessment: stable on oral potassium supplement. Tobacco use 01/20/2024 Overview (05/06/2024): Last Assessment & Plan: Assessment: Current smoker, aware of pre-op instructions. Hyperaldosteronism 12/10/2023 History of bariatric surgery 12/06/2023 Overview (01/16/2024): Last Assessment & Plan: Assessment: History of Gastric bypass 12/2022 Body mass index is 28.66 kg/m . Diarrhea 10/17/2023 Hypokalemia 10/17/2023 Nausea 10/17/2023 Adenoma of left adrenal gland 09/04/2023 Primary hyperaldosteronism 09/04/2023 Diabetes mellitus 02/21/2023 First degree AV block 02/21/2023 Migraine with aura and witho ut status migrainosus, not intractable 02/21/2023 Mixed bipolar affective disorder, moderate 02/21 Neuropathy 02/21/2023 PCOS (polycystic ovarian syndrome) 02/21/2023 Primary osteoarthritis of left knee 02/21/2023 Psychophysiological insomnia 02/21/2023 Diabetes 02/21/2023 Generalized anxiety disorder 12/06/2022 Bipolar affective disorder, currently depressed, mild 12/06/2022 Acute hypokalemia 09/07/2022 Overview (01/16/2024): Last Assessment & Plan: Assessment: - potassium chloride (Klor-Con) 20 MEQ [...] 2.8 (L) 3.7 - 5.1 mmol/L Final Primary hypertension 09/06/2022 Seasonal allergic rhinitis 10/25/2020 Dysmenorrhea 02/16/2020 Iron deficiency 02/02/2020 Microcytic anemia 11/05/2019 Excessive and frequent menstruation 11/02/2019 Depressive disorder 08/17/2019 Irritable bowel syndrome with diarrhea 9 Cannabis abuse 03/19/2019 Adrenal mass 01/21/2019 Gastroesophageal reflux disease 12/31/2018 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 Past Treatment and Therapy Plans No past plan information found. Lifetime Dose Tracking * Chemical Lifetime Dose Automatic Entry Manual Entr y Radiation 17 mSv 17 mSv 0 mSv Resolved Problems Problem Noted Date Diagnosed Date Resolved Date Obstructive sleep apnea syndrome 05/06/2024 12/09/2024 Menorrhagia with irregular cycle 02/21/2023 02/21/2023 Menorrhagia with regular cycle 02/21/2023 02/21/2023 Migraine 02/21/2023 02/21/2023 Abnormal ECG 07/31/2022 02/21/2023 Pre-op evaluation 07/31/2022 02/21/2023 Ingrowing nail 08/22/2021 02/21/2023 Polyphagia 11/08/2020 02/21/2023 Insomnia 12/11/2019 02/21/2023 Breakthrough bleeding on Depo-Provera 07/14/2019 02/21/2023 Metrorrhagia 01/14/2019 02/21/2023 Thyromegaly 01/14/2019 02/21/2023 Otalgia of right ear 11/04/2018 023 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
--- OUTSIDE RECORDS SUMMARY | 2025-04-21 14:16 | XMS_ITS | Clinical Summary ---
Author Organization [email or web address] Address [facility] [place] [id number] [address] [place] [address] Care Team Providers Care Electrician'S Assistant Name Role Phone Immanuel Kuhn DO Primary Care Provider [phone] Allergies No known active allergies Medications calcium carbonate-vitam in D3 (CALTRATE) 600 mg(1,500mg) -400 units per tablet Take 1 tablet by mouth in the morning. 2 Active lurasidone (LATUDA) 60 mg tablet tablet 1 tablet (60 mg total). 2 Active hydrALAZINE (APRESOLINE) 100 mg tablet Take 1 tablet (100 mg total) by mouth in the morning and 1 tablet (100 mg total) in the evening. Take with meals. 2 Active amLODIPine (NORVASC) 10 mg tablet Take 1 tablet (10 mg total) by mouth in the morning. 2 Active omeprazole (PriLOSEC) 20 mg capsule Take 1 capsule (20 mg total) by mouth every morning before breakfast. 2 Active gabapentin (NEURONTIN) 400 mg capsule Take 1 capsule (400 mg total) by mouth in the morning and at bedtime. 2 Active pioglitazone (ACTOS) 15 mg tablet Take 1 tablet (15 mg total) by mouth in the morning. 2 Active KLOR-CON M20 20 mEq CR tablet Take 1 tablet (20 mEq total) by mouth in the morning. 2 Active lamoTRIgine (LaMICtal) 150 mg tablet Take 2 tablets (300 mg total) by mouth in the morning. 2 Active biotin 1 mg capsule Take by mouth daily. Active carvediloL (COREG) 25 mg tablet Take 2 tablets (50 mg total) by mouth in the morning and 2 tablets (50 mg total) before bedtime. 360 tablet 3 3 Active Additional Information Patient taking differently: 25 mgoral 2 times daily, Reported on 02/20/2023 spironolactone (ALDACTONE) 50 mg tablet TAKE 1 TABLET BY MOUTH EVERY DAY FOR 90 DAYS 3 Active REXULTI 1 mg tablet Take 1 tablet (1 mg total) by mouth in the morning. 3 Active multivitamin capsule 1 (one) time each day at the same time. Active Active Problems Problem Noted Date Diagnosed Date Pre-op evaluation 07/31/2022 Abnormal ECG 07/31/2022 Hypertension First degree AV block Family History Medical History Relation Name Comments Diabetes Father Heart attack Father Heart disease Father Diabetes Mother Relation Name Status Comments Father Alive Mother Alive Social History Tobacco Use Types Packs/Day Years Used Date Smoking Tobacco: Former Cigarettes Q uit: 10/2022 Tobacco Cessation:Counseling Given: Not Answered Alcohol Use Standard Drinks/Week Comments Not Currently 0 (1 standard drink = 0.6 oz pur e alcohol) Childcare Answer Date Recorded Childcare Unknown 01/15/2019 Employment Answer Date Recorded Employment Unknown 01/15/2019 Hunger Screening Answer Date Recorded Within the past 12 months we worried whether our food would run out before we got money to buy more. Never True 02/20/2023 Within the past 12 months th e food we bought just didn't last and we didn't have money to get more. Never True 02/20/2023 Purpose - Life Answer Date Recorded Purpose and direction in life Unknown Comments Unknown Sex and Gender Information Value Date Recorded Sex Assigned at Not on file Legal Sex Female 10:49 AM EST Gender Identity Not on file Sexual Orientation Not on file Last Filed Vital Signs Vital Sign Reading Time Taken Comments Blood Pressure 142/98 02/20/2023 11:49 AM EDT Pulse 74 02/20/2023 11:49 AM EDT Temperature - - Respiratory Rate - - Oxygen Saturation 98% 02/20/2023 11:49 AM EDT Inhaled Oxygen Concentration - - Weight 115.7 kg (255 lb) 02/20/2023 11:49 AM EDT Height 170.2 cm (5' 7 ) 02/20/2023 11:49 AM EDT Body Mass Index 39.94 02/20/2023 11:49 AM EDT Plan of Treatment Health Maintenance Due Date Last Done Comments Depression Screening 2003 Tobacco Screening 2003 DTaP,Tdap and Td Vaccines (1 - Tdap) 2010 Pap Smear 2012 Adult BMI Screening 02/21/2024 02/20/2023 Influenza Vaccine 04/05/2025 Medical Devices Not on file Insurance [employer] Care Teams Electrician'S Assistant Relationship Specialty Start Date End Date Immanuel Kuhn DO [address] [place] [id number] PCP - General Family Medicine 06/26/22
--- OUTSIDE RECORDS SUMMARY | 2025-04-21 14:16 | XMS_ITS | Clinical Summary ---
Author Organization [facility] Address [address] [place] [address] Care Team Providers Care Newspaper Peddler Name Role Phone Immanuel Kuhn DO Primary Care Provider [phone] Mikael García DO Unavailable [phone] Jacki Braun [facility] Unavailable [phone] Nely Figueroa ACID MAKER Unavailable [phone] Allergies No known active allergies Medications Vraylar 3 MG capsule Take 1 capsule by mouth Daily 04/02/20 25 Active famotidine (Pepcid) 40 MG tabletIndicatio ns:Gastroesopha geal reflux disease with esophagitis without hemorrhage Take 1 tablet (40 mg) by mouth Daily 90 tablet 3 04/20/20 25 Active ferrous gluconate (Fergon) 324 (38 Fe) MG tabletIndicatio ns:Iron deficiency anemia, unspecified iron deficiency anemia type Take 1 tablet (324 mg) by mouth in the morning. Take with meals. 90 tablet 3 04/20/20 25 Active gabapentin (Neurontin) 400 MG capsuleIndicati ons:Neuropathy Take 1 capsule (400 mg) by mouth in the morning and 1 capsule (400 mg) before bedtime. 60 capsule 1 04/20/20 25 Active omeprazole (PriLOSEC) [address] capsuleIndicati ons:Anastomotic ulcer Take 1 capsule (40 mg) by mouth in the morning and 1 capsule (40 mg) in the evening. Take before meals. Do not crush or chew. 180 capsule 3 04/20/20 25 Active zolpidem (Ambien) 10 MG tabletIndicatio ns:Primary insomnia Take 1 tablet (10 mg) by mouth as needed at bedtime for sleep 30 tablet 04/20/20 Active ondansetron (Zofran) 4 MG tabletIndicatio ns:Nausea Take 1 tablet (4 mg) by mouth every 8 (eight) hours if needed for nausea or vomiting 20 tablet 04/20/20 Active ammonium lactate (Amlactin) 12 % creamIndication s:Rash Apply topically if needed for dry skin 140 g 08/25/19 025 Discontinued omeprazole (PriLOSEC) [address] capsuleIndicati ons:Anastomotic ulcer Take 1 capsule (40 mg) by mouth in the morning and 1 capsule (40 mg) in the evening. Take before meals. Do not crush or chew.. 180 capsule 11/06/19 025 Discontinued(Re order) famotidine (Pepcid) 40 MG tabletIndicatio ns:Gastroesopha geal reflux disease with esophagitis without hemorrhage Take 1 tablet (40 mg) by mouth Daily 90 tablet 1 11/07/19 025 Discontinued(Re order) ferrous gluconate (Fergon) 324 (38 Fe) MG tabletIndicatio ns:Iron deficiency anemia, unspecified iron deficiency anemia type Take 1 tablet (324 mg) by mouth in the morning. Take with meals. 90 tablet 12/31/19 025 Discontinued(Re order) mirtazapine (Remeron) 15 MG tabletIndicatio ns:Bipolar affective disorder, currently depressed, mild (HCC) Take 1 tablet (15 mg) by mouth at bedtime 90 tablet 01/28/20 025 Discontinued ARIPiprazole (Abilify) 5 MG tabletIndicatio ns:Bipolar affective disorder, currently depressed, mild (HCC) Take 1 tablet (5 mg) by mouth Daily 90 tablet 01/28/20 025 Discontinued gabapentin (Neurontin) 400 MG capsuleIndicati ons:Neuropathy TAKE 1 CAPSULE BY MOUTH IN THE MORNING AND 1 CAPSULE BEFORE BEDTIME. 60 capsule 1 03/08/20 025 Discontinued(Re order) clonazePAM (KlonoPIN) 0.5 MG tabletIndicatio ns:Anxiety Take 1 tablet (0.5 mg) by mouth 3 (three) times a day as needed for anxiety (q8hrs) 28 tablet 03/08/20 25 025 Discontinued zolpidem (Ambien) 10 MG tabletIndicatio ns:Primary insomnia Take 1 tablet (10 mg) by mouth as needed at bedtime for sleep 30 tablet 03/08/20 25 025 Discontinued(Re order) Active Problems Problem Noted Date Diagnosed Date [...] removal in 2018 No chemo or radiation Sinusitis 08/01/2018 Generalized headache 07/15/2018 Morbid obesity 11/14/2017 Patellofemoral pain syndrome of left knee 2017 Insomnia related to another mental disorder 09/2017 Major depressive disorder, single episode, moder ate 09/16/2017 Anxiety 06/18/2017 Irregular menstruation 06/18/2017 Plantar fasciitis 02/11/2017 Hidradenitis suppurativa of right axilla 013 Resolved Problems Problem Noted Date Diagnosed Date [...] totalis 06/18/2017 0 02/21/2023 Comedone 10/27/2012 02/21/2023 Encounters Date Type Department Care Team Description 04/20/2025 3:00 PM EDT Office Visit [facility] [address] [place] [address] Brendan Carter PA Nausea (Primary Dx); Iron deficiency anemia, unspecified iron deficiency anemia type; Gastroesophageal reflux disease with esophagitis without hemorrhage; Neuropathy; Anastomotic ulcer; Primary insomnia 04/20/2025 Travel 04/19/2025 3:00 PM EDT Office [facility] [address] [place] [address] Isabel Dunaway DPM Tailor's bunion of both feet (Primary Dx); Corns and callosities; Pain in both feet 04/19/2025 Bamboo flowsheet [facility] [address] [place] [address] Isabel Dunaway DPM 04/19/2025 Travel 04/14/2025 4:00 PM EDT Social Work [facility] [address] [place] [address] Jacki Braun, [facility] Generalized anxiety disorder ; Bipolar affective disorder, currently depressed, mild (HCC) 04/14/2025 Bamboo flowsheet [facility] [facility] [address] [place] [address] Jacki Braun, [facility] 04/14/2025 Travel 04/02/2025 Patient Outreach [facility] [address] [place] [address] Nely Figueroa LSW 03/30/2025 3:45 PM EDT Office Visit [facility] [address] [place] [address] Isabel Dunaway DP Tailor's bunion of both feet (Primary Dx); Corns and callosities; Pain in both feet 03/30/2025 Bamboo flowsheet [facility] [address] [place] [address] Isabel Dunaway DPM 03/30/2025 Travel 03/09/2025 4:00 PM EDT Social Work [facility] [place] [facility] [address] [place] [address] Jacki Braun, [facility] Generalized anxiety disorder ; Bipolar affective disorder, currently depressed, mild (HCC) 03/09/2025 Bamboo flowsheet [facility] [address] [place] [address] Jacki Braun, [facility] 03/09/2025 Travel 03/08/2025 Refill [facility] [address] [place] [address] Mikael García, DO Anxiety; Primary insomnia 03/07/2025 Refill [facility] [address] [place] [address] Immanuel Kuhn, DO [place] 03/03/2025 11:00 AM EDT Social Work [facility] [address] [place] [address] Jacki Braun, [facility] Generalized anxiety disorder ; Bipolar affective disorder, currently depressed, mild (HCC) 03/03/2025 Bamboo flowsheet [facility] [place] [facility] [address] [place] [address] Jacki Braun, [facility] 03/03/2025 Travel 02/25/2025 Telephone [facility] [place] [facility] [address] [place] [address] Isabel Dunaway DPM 02/24/2025 Patient Outreach [facility] [address] [place] [address] Nely Figueroa LSW 02/22/2025 1:45 PM EDT Office Visit [facility] [address] [place] [address] Isabel Dunaway, DP Tailor's bunion of both feet (Primary Dx); Corns and callosities; Pain in both feet 02/22/2025 Travel 02/17/2025 4:00 PM EDT Social Work [facility] [address] [place] [address] Jacki Braun, [facility] Generalized anxiety disorder ; Bipolar affective disorder, currently depressed, mild (HCC) 02/17/2025 Bamboo flowsheet [facility] [place] [facility] [address] [place] [address] Jacki Braun, [facility] 02/17/2025 Travel 02/09/2025 1:00 PM EDT Social Work [facility] [address] [place] [address] Jacki Braun, [facility] Generalized anxiety disorder ; Bipolar affective disorder, currently depressed, mild (HCC) 02/09/2025 Telephone [facility] [address] [place] [address] Mikael García, DO 02/09/2025 Bamboo flowsheet [facility] [address] [place] [address] Jacki Braun, [facility] 02/09/2025 Travel 02/08/2025 11:00 AM EDT Office Visit [facility] [address] [place] [address] Mikael García, DO Iron deficiency anemia, unspecified iron deficiency anemia type (Primary Dx); Primary insomnia; Bariatric surgery status; Bipolar affective disorder, currently depressed, mild (HCC) 02/08/2025 Bamboo flowsheet [facility] [address] [place] [address] Mikael García, DO 02/08/2025 Travel 02/03/2025 Patient Outreach [facility] [address] [place] [address] Nely Figueroa LSW 02/02/2025 Patient Outreach [facility] [address] [place] [address] Nely Figueroa LSW 02/01/2025 Telephone [facility] [address] [place] [address] Sara Anderson MA Lab Request 02/01/2025 Telephone [facility] [address] [place] [address] Sara Anderson MA 01/29/2025 Telephone [facility] [address] [place] [address] Mis Mancilla MA Care Coordination 01/28/2025 Orders Only [facility] [address] [place] [address] [place] [address] Kortney Roberson LPN 01/27/2025 10:00 AM EDT Social Work [facility] [place] [facility] [address] [place] [address] Jacki Braun, [facility] Generalized anxiety disorder ; Bipolar affective disorder, currently depressed, mild (HCC) 01/27/2025 8:40 AM EDT Office Visit [facility] [place] [facility] [address] [place] [address] Mikael García DO Bipolar affective disorder, currently depressed, mild (HCC) (Primary Dx); Iron deficiency anemia, unspecified iron deficiency anemia type; Primary insomnia; Bariatric surgery status 01/27/2025 Bamboo flowsheet [facility] [address] [place] [address] Mikael García DO 01/27/2025 Travel 01/21/2025 9:00 AM EDT Social Work [facility] [place] [facility] [address] [place] [address] Jacki Braun, [facility] Generalized anxiety disorder ; Bipolar affective disorder, currently depressed, mild (HCC) 01/21/2025 Bamboo flowsheet [facility] [place] [facility] [address] [place] [address] Jacki Braun [facility] 01/21/2025 Travel 01/20/2025 8:45 AM EDT Office Visit [facility] [place] [facility] [address] [place] [address] Isabel Dunaway, REJI Hammer toe of right foot (Primary Dx); Corns and callosities; Pain in both feet 01/20/2025 Bamboo flowsheet [facility] [place] [facility] [address] [place] [address] Isabel Dunaway DPM 01/20/2025 Travel from Last 3 Months Family History Medical History Relation Name Comments Depression Brother Diabetes Brother Hypertension Brother Diabetes Father Heart disease Father Hypertension Father Cancer Maternal Grandfather Lung cancer Maternal Grandmother Depression Mother Diabetes Mother Hypertension Mother Thyroid cancer Mother Lung cancer Paternal Grandmother Melanoma Neg Hx Relation Name Status Comments Brother 1 brother Father Alive Maternal Grandfather Maternal Grandmother Mother Alive Other Denies family h istory of melanoma Paternal Grandmother Social History Tobacco Use Types Packs/Day Years Used Date Smoking Tobacco: Every Day Cigarettes Last attempted to quit: 08/05/2022 Passive Smoke Exposure: Current Smokeless Tobacco: Never Tobacco Cessation:Ready to Q uit: No; Counseling Given: Yes Comments:Cessation discussed Alcohol Use Standard Drinks/Week Comments [...] Mass Index 28.89 04/20/2025 2:56 PM EDT Plan of Treatment Upcoming Encounters Date Type Department Care Team (Late st Contact Info) Description 04/29/2025 2:00 PM EDT Social Work [facility] [place] [facility] [address] [place] [address] Jacki Braun, [facility] [address] [place] [address] 05/13/2025 12:00 PM EDT Social Work [facility] [place] [facility] [address] [place] [address] Jacki Braun, [facility] [address] [place] [address] 05/19/2025 3:00 PM EDT Social Work [facility] [place] [facility] [address] [place] [address] Jacki Braun, [facility] [address] [place] [address] 05/20/2025 2:45 PM EDT Office Visit [facility] [address] [place] [address] Isabel Dunaway, DPM [address] [place] [address] 05/26/2025 3:00 PM EDT Social Work [facility] [place] [facility] [address] [place] [address] Jacki Braun, [facility] [address] [place] [address] Health Maintenance Due Date Last Done Comments Diabetes: Retinopathy Screening 2001 Diabetes: Urine Protein Screening 07/06/2023 07/06/2022, 07/04/2022, 11/09/2020 Diabetes: Hemoglobin A1C 01/30/2024 024, 01/04/2022, 11/09/2020, Additional history exists Pap Smear 12/18/2024 12/18/2021 Influenza Vaccine (#1) 2025 Cervical Cancer Screening 12/18/2026 HPV/Cotest 12/18/2026 12/18/2021, 12/13/2020 Procedures Procedure Name Priority Date/Time Associated Diagnosis Comments CBC (INCLUDES DIFF/PLT) Routine 04/20/2025 3:15 PM EDT Iron deficiency anemia, unspecified iron deficiency anemia type FERRITIN Routine 04/20/2025 3:15 PM EDT Iron deficiency anemia, unspecified iron deficiency anemia type IRON AND TOTAL IRON BINDING CAPACITY Routine 04/20/2025 3:15 PM EDT Iron deficiency anemia, unspecified iron deficiency anemia type POCT GLYCATED HEMOGLOBIN, TOTAL Routine 10/30/2023 3:33 PM EDT Impaired fasting glucose MICROALBUMIN / CREATININE URINE RATIO Routine 07/04/2022 THINPREP TIS PAP REFLEX HPV MRNA E6/E7 ([id number]) Routine 12/18/2021 PAP SMEAR Routine 12/18/2021 12:00 AM EDT from Last 3 Months or Most Recently Relevant to Health Maintenance Results * (ABNORMAL) Iron and TIBC (04/20/2025 3:15 PM EDT) Iron Bind.Cap.(TIBC) 438 250 - 450 ug/dL [facility] UIBC 418 131 - 425 ug/dL [facility] Iron 20(L) 27 - 159 ug/dL [facility] Iron Saturation 5(LL) 15 - 55 % [facility] Blood Venous blood specimen / Unknown 04/20/2025 3:15 PM EDT 04/20/2025 Narrative [facility] - 04/21/2025 9:07 AM EDT Performed at: [facility] [id number] Lpn Medical Assistant: Julio Pinzon PhD, Phone: [phone] us Mikael García DO LAB BLOOD ORDERABLES Final R esult [facility] * (ABNORMAL) CBC and differential (04/20/2025 3:15 PM EDT) WBC 8.8 3.4 - 10.8 x10E3/uL [facility] RBC 4.43 3.77 - 5.28 x10E6/uL [facility] Hgb 12.8 11.1 - 15.9 g/dL [facility] Hct 40.9 34.0 - 46.6 % [facility] MCV 92 79 - 97 fL [facility] MCH 28.9 26.6 - 33.0 pg [facility] MCHC 31.3(L) 31.5 - 35.7 g/dL [facility] RDW 15.7(H) 11.7 - 15.4 % [facility] Platelets 225 150 - 450 x10E3/uL [facility] Neutrophils 64 Not Estab. % [facility] Lymphs 27 Not Estab. % [facility] Monocytes 6 Not Estab. % [facility] Eos 2 Not Estab. % [facility] Basos 1 Not Estab. % [facility] Neutrophils Abs 5.7 1.4 - 7.0 x10E3/uL [facility] Lymphs Abs 2.4 0.7 - 3.1 x10E3/uL [facility] MonocytesAbs 0.5 0.1 - 0.9 x10E3/uL [facility] Eos Abs 0.2 0.0 - 0.4 x10E3/uL [facility] Baso Abs 0.1 0.0 - 0.2 x10E3/uL [facility] Immature Granulocytes 0 Not Estab. % [facility] Immature Grans Abs 0.0 0.0 - 0.1 x10E3/uL [facility] Blood Venous blood specimen / Unknown 04/20/2025 3:15 PM EDT 04/20/2025 Narrative [facility] - 04/21/2025 9:07 AM EDT Performed at: 01 - [facility] [id number] Lpn Medical Assistant: Julio Pinzon PhD, Phone: [phone] us Mikael García DO LAB BLOOD ORDERABLES Final R esult [facility] * Ferritin (04/20/2025 3:15 PM EDT) Ferritin 20 15 - 150 ng/mL [facility] Blood Venous blood specimen / Unknown 04/20/2025 3:15 PM EDT 04/20/2025 Narrative [facility] - 04/21/2025 9:07 AM EDT Performed at: 01 - [facility] [id number] Lpn Medical Assistant: Julio Pinzon PhD, Phone: [phone] Mikael García DO LAB BLOOD ORDERABLES Final R esult [facility] * POCT Glycated hemoglobin, total (10/30/2023 3:33 PM EDT) Pathologist [facility] Hemoglobin A1C 4.9 Blood 10/30/2023 3:33 PM EDT Mikael García DO POINT OF CARE TEST ENTER/MIKHAIL T ORDERABLES Final Result * (ABNORMAL) Microalbumin / creatinine urine ratio (07/04/2022) Pathologist [facility] CREATININE, RANDOM URINE 86 20 - 275 [facility] ALBUMIN, URINE 5.6 See Note: [facility] Comment: Reference Range: Reference Range Not established MICROALBUMIN/CREAT ININE RATIO, RANDOM URINE 65(H) <30 [facility] Comment: The ADA defines abnormalities in albumin excretion as follows: Albuminuria Category Result (mcg/mg creatinine) Normal to Mildly increased <30 Moderately increased 30-299 Severely increased > OR = 300 The ADA recommends that at least two of three specimens collected within a 3-6 month period be abnormal before considering a patient to be within a diagnostic category. 07/04/2022 Brendan ASHRAF LAB URINE ORDERABLES Final Resul t [facility] * THINPREP TIS PAP REFLEX HPV MRNA E6/E7 (43695) (12/18/2021) CLINICAL INFORMATION: None given [facility] LMP: NONE GIVEN [facility] PREV. PAP: NONE GIVEN [facility] PREV. BX: NONE GIVEN [facility] SOURCE: None given [facility] STATEMENT OF ADEQUACY: SEE COMMENT [facility] Comment: Satisfactory for evaluation. Endocervical/transformation zone component present. INTERPRETATION /RESULT: Negative for intraepithelial lesion or malignancy. [facility] INFECTION: Shift in vaginal deirdre suggestive of bacterial vaginosis. [facility] COMMENT: This Pap test has been evaluated with computer assisted technology. [facility] CYTOTECHNOLOGI ST: SEE COMMENT [facility] Comment: EMP, CT(ASCP) CT screening location: [place] [address]. COMMENT SEE COMMENT [facility] Comment: EXPLANATORY NOTE: The Pap is a screening test for cervical cancer. It is not a diagnostic test and is subject to false negative and false positive results. It is most reliable when a satisfactory sample, regularly obtained, is submitted with relevant clinical findings and history, and when the Pap result is evaluated along with historic and current clinical information. 12/18/2021 Esther Carbajal MD [facility] Final Result Performing Organization Address [facility] Co de Phone Number [facility] * Pap Smear (12/18/2021 12:00 AM EDT) Swab Cervical swab / Unknown Katiuska Pinto [facility] CYTOLOGY ORDERABLES Final Result Performing Organization Address City/[facility]/ZIP Co de Phone Number EXTERNAL LAB from Last 3 Months or Most Recently Relevant to Health Maintenance Insurance [employer] Care Teams Newspaper Peddler Relationship Specialty Start Date End Date Immanuel Kuhn, DO [address] [place] [address] PCP - General Family Medicine 12/25/22 Mikael García DO [address] [place] [address] PCP - [facility] 05/05/24 Jacki Braun, [facility] [address] [place] [address] [facility] 08/18/24 Nely Figueroa LSW [address] [place] [address] [facility] 02/03/25
--- OUTSIDE RECORDS SUMMARY | 2025-04-21 14:16 | XMS_ITS | Encounter Summary ---
Author Organization [facility] tem Address [id number] [address] [place] [address] Care Team Providers Care Horticultural Farm Manager Name Role Phone Immanuel Kuhn DO Primary Care Provider [phone] Encounter Details Date Type Department Care Team (Late st Contact Info) Description 08/23/2022 Orders Only [facility] [address] [facility] [address] [place] [address] Isabel Wang CMA First degree AV block; Abnormal EKG; Preop cardiovascular exam; Pre-op evaluation; Abnormal ECG; Hypertension, unspecified type Social History Tobacco Use Types Packs/Day Years [...] have Coronavirus / COVID-19? No / Unsure 07/31/2022 11:17 AM EST documented as of this encounter Plan of Treatment Not on file documented as of this encounter Procedures Procedure Name Priority Date/Time Associated Diagnosis Comments ECHO COMPLETE WO CONTRAST Routine 08/22/2022 First degree AV block Abnormal EKG Preop cardiovascular exam Pre-op evaluation Abnormal ECG Hypertension, unspecified type documented in this encounter Results * Echo complete W/O contrast (08/22/2022) Anatomical Region Laterality Modality Chest N/A Ultrasound Bandar Cid DO CV ECHO ORDERABLES Final Resu lt documented in this encounter Visit Diagnoses Diagnosis First degree AV block First degree atrioventricular block Abnormal EKG Nonspecific abnormal electrocardiogram (ECG) (EKG) Preop cardiovascular exam Pre-operative cardiovascular examination Pre-op evaluation Abnormal ECG Nonspecific abnormal electrocardiogram (ECG) (EKG) Hypertension, unspecified type documented in this encounter Care Teams Horticultural Farm Manager Relationship Specialty Start Date End Date Immanuel Kuhn DO [address] [facility] [place] [place] [address] PCP - General Family Medicine 06/26/22 documented as of this encounter
--- OUTSIDE RECORDS SUMMARY | 2025-04-21 14:16 | XMS_ITS | Encounter Summary ---
Author Organization [facility] Address [address] [place] [address] Care Team Providers Care Test Carrier Name Role Phone Immanuel Kuhn DO Primary Care Provider [phone] Immanuel Kuhn DO Unavailable [phone] Brendan Carter Unavailable Mikael García DO Unavailable [phone] Jacki Braun [facility] Unavailable [phone] Nely Figueroa [facility] Unavailable [phone] Encounter Details Date Type Department Care Team (Late st Contact Info) Description 12/06/2023 Clinisync Result Encounter [facility] External Department Unsolicited Provider, Generic External Data Social History Tobacco Use Types Packs/Day Years Used Date Smoking Tobacco: Former Cigarettes Q uit: 08/05/2022 Smokeless Tobacco: Never Alcohol Use Standard Drinks/Week Comments Not Currently 0 (1 standard drink = 0.6 oz pure alcohol) caffeine intake: 1-2 cans of soda PHQ-2 Answer Date Recorded Patient Health Questionnaire-2 Score 0 11/28/2023 Comments No Sex and Gender Information Value Date Recorded Sex Assigned at Not on file Legal Sex Female 7:20 PM EDT Gender Identity Not on file Sexual Orientation Not on file documented as of this encounter Plan of Treatment Upcoming Encounters Date Type Department Care Team (Late Contact Info) Description 04/29/2025 2:00 PM EDT Social Work [facility] [address] [place] [phone] Jacki Braun, [facility] [address] [facility] [address] [place] [address] 05/13/2025 12:00 PM EDT Social Work [facility] [address] [place] [address] Jacki Braun, [facility] [address] [place] [address] 05/19/2025 3:00 PM EDT Social Work [facility] [address] [place] [address] Jacki Braun, [facility] [address] [place] [address] 05/20/2025 2:45 PM EDT Office Visit [facility] [address] [place] [address] Isabel Dunaway DPM [address] [place] [address] 05/26/2025 3:00 PM EDT Social Work [facility] [address] [place] [address] Jacki Braun, [facility] [address] [place] [address] documented as of this encounter Procedures Procedure Name Priority Date/Time Associated Diagnosis Comments ECG01 12/06/2023 9:17 AM EDT documented in this encounter Results * ECG01 (12/06/2023 9:17 AM EDT) Anatomical Region Laterality Modality Other 12/06/2023 9:17 AM EDT Narrative 12/27/2023 10:50 AM EDT Ventricular Rate : 61 BPM Atrial Rate : 61 BPM P-R Interval : 266 ms QRS Duration : 120 ms Q-T Interval : 426 ms QTC Calculation(Bazett) : 428 ms Calculated P Quinton : 30 degrees Calculated R Quinton : 19 degrees Calculated T Quinton : 6 degrees SINUS RHYTHM WITH 1ST DEGREE AV BLOCK NONSPECIFIC INTRAVENTRICULAR CONDUCTION DELAY BORDERLINE ECG Confirmed by DANDY IYER MD ([id number]) on 12/27/2023 10:49:58 AM NAME : MARY DE LA VEGA PID : [id number] : 1990 Gender : Female Race : ORD : Procedure Date : Dec 06 2023 09:17:58 Edit Date : Dec 27 2023 10:50:03 Diagnosis: SINUS RHYTHM WITH 1ST DEGREE AV BLOCK NONSPECIFIC INTRAVENTRICULAR CONDUCTION DELAY BORDERLINE ECG Confirmed by DANDY IYER MD ([id number]) on 12/27/2023 10:49:58 AM Test Reason : Location : 145 : [place] 081 Overread By : DANDY IYER MD Edited By : DANDY IYER MD Referred By : , Acquired by : vs, Procedure Note Radiology, Radiologist, MD - 12/27/2023 Ventricular Rate : 61 BPM Atrial Rate : 61 BPM P-R Interval : 266 ms QRS Duration : 120 ms Q-T Interval : 426 ms QTC Calculation(Bazett) : 428 ms Calculated P Quinton : 30 degrees Calculated R Quinton : 19 degrees Calculated T Quinton : 6 degrees SINUS RHYTHM WITH 1ST DEGREE AV BLOCK NONSPECIFIC INTRAVENTRICULAR CONDUCTION DELAY BORDERLINE ECG Confirmed by DANDY IYER MD ([id number]) on 12/27/2023 10:49:58 AM NAME : MARY DE LA VEGA PID : [id number] : 1990 Gender : Female Race : ORD : Procedure Date : Dec 06 2023 09:17:58 Edit Date : Dec 27 2023 10:50:03 Diagnosis: SINUS RHYTHM WITH 1ST DEGREE AV BLOCK NONSPECIFIC INTRAVENTRICULAR CONDUCTION DELAY BORDERLINE ECG Confirmed by DANDY IYER MD ([id number]) on 12/27/2023 10:49:58 AM Test Reason : Location : 145 : [place] 0[facility] Overread By : DANDY IYER MD Edited By : DANDY IYER MD Referred By : , Acquired by : vs, Generic External Data Provider [facility] Final Result documented in this encounter Visit Diagnoses Not on filedocumented in this encounter Care Teams Test Carrier Relationship Specialty Start Date End Date Immanuel Kuhn, DO [address] [place] [address] PCP - General Family Medicine 12/25/22 Immanuel Kuhn, DO [address] [place] [address] PCP - [facility] 11/04/23 Brendan Carter PA [address] [place] [address] PCP - [facility] 02/03/24 Mikael García, DO [address] [place] [address] PCP - [facility] 05/05/24 Jacki Braun, [facility] [address] [place] [address] Pilot Supervisor Behavioral Health 08/18/24 Nely Figueroa LSW [address] [place] [address] Pilot Supervisor Family Medicine 02/03/25 documented as of this encounter
--- OUTSIDE RECORDS SUMMARY | 2025-04-21 14:16 | XMS_ITS | Encounter Summary ---
Author Organization [facility] Address [address] [place] [address] Care Team Providers Care Pool Table Operator Name Role Phone Immanuel Kuhn DO Primary Care Provider [phone] Esther Carbajal MD Unavailable [phone] Brendan Carter PA-C Unavailable [phone] Source Comments In the event this information is protected by the Federal Confidentiality of Alcohol and Drug AbusePatient Records regulations: The Federal rules restrict any use of the information to criminally investigate or prosecute any alcohol or drug abuse patient.[facility] Encounter Details Date Type Department Care Team (Late st Contact Info) Description 10/17/2023 Patient Msg Angio [address] [place] [address] Provider, [facility] pre-procedure instructions 10/22 Social History Tobacco Use Types Packs/Day Years Used Date Smoking Tobacco: Never Smokeless Tobacco: Never Alcohol Use Standard Drinks/Week Comments Yes 0 (1 standard drink = 0.6 oz pur e alcohol) Area Deprivation Index Answer Date Bashir rded National Score (1-100), lower number is lower ri sk 59 08/20/2023 State Score (1-10), lower number is lower risk 4 08/20/2023 Data from: https://www.neighborhoodatlas.[facility]/. Last address used for calculation [address] [place] [address] [address] 08/20/2023 Comments Unknown Sex and Gender Information Value Date Recorded Sex Assigned at Not on file Legal Sex Female 11:20 AM EDT Gender Identity Female 08/27/2023 2:21 PM EST Sexual Orientation Not on file documented as of this encounter Plan of Treatment Not on file documented as of this encounter Visit Diagnoses Not on filedocumented in this encounter Care Teams Pool Table Operator Relationship Specialty Start Date End Date Immanuel Kuhn DO [address] [place] [address] PCP - General Family Medicine 10/23/12 Esther Carbajal MD [address] [place] [address] Referring Obstetrics 01/28/20 Brendan Carter, PAArunC [address] [place] [address] Referring Physician Assistant Professor Of English 08/08/23 documented as of this encounter
--- OUTSIDE RECORDS SUMMARY | 2025-04-21 14:16 | XMS_ITS | Encounter Summary ---
Author Organization [facility] Address [id number] [address] [place] [address] Care Team Providers Care Environmental Aid Name Role Phone Immanuel Kuhn DO Primary Care Provider [phone] Encounter Details Date Type Department Care Team (Late st Contact Info) Description 09/06/2022 Orders Only [facility] [address] [facility] [address] [place] [address] External, Scanning Provider Social History Tobacco Use [...] have Coronavirus / COVID-19? No / Unsure 08/31/2022 12:43 PM EST documented as of this encounter Plan of Treatment Not on file documented as of this encounter Procedures Procedure Name Priority Date/Time Associated Diagnosis Comments BASIC METABOLIC PANEL Routine 09/03/2022 documented in this encounter Results * Basic Metabolic Panel (09/03/2022) us Scanning Provider External LAB BLOOD ORDERABLES Final Result MANUALLY TRANSCRIBED RESULTS documented in this encounter Visit Diagnoses Not on filedocumented in this encounter Care Teams Environmental Aid Relationship Specialty Start Date End Date Immanuel Kuhn DO [address] [place] [address] PCP - General Family Medicine 06/26/22 documented as of this encounter
--- OUTSIDE RECORDS SUMMARY | 2025-04-21 14:16 | XMS_ITS | Patient Health Record ---
Author Organization [facility] Address [address] [place] [address] Care Team Providers Care Associate Program Manager Name Role Phone Latrice Tripathi Primary Care Provider Shelly Aponte Unavailable [phone] Brianne Langley Unavailable [phone] Allergies No Known Allergies Reason For Referral No Information Medications Medication SIG (Take, Route, Frequency, Duration) Notes Start Date End Date Status Actos 15 MG 1 tablet Orally daily Active Natazia Not-Taking hydrALAZINE HCl 100 MG 1 tablet Orally Twice a day Active OLANZapine 2.5 MG TAKE 1 TABLET BY MOUTH EVERY DAY FOR 30 DAYS; Duration: 30 Not-Taking lamoTRIgine 150 MG TAKE 2 TABLETS BY MOUTH ONCE DAILY FOR 30 DAYS Orally Once a day Active Potassium Chloride 20 MEQ 1 packet with food Orally daily Active Carvedilol 25 MG 1 tablet Orally Twice a day Active amLODIPine Besylate 10 MG 1 tablet Orally Once a day Active Propranolol HCl 20 MG TAKE 1 - 2 TABLETS BY MOUTH UP TO TWICE A DAY NEEDED Active Rexulti 1 MG 1 tablet Orally Once a day; Duration: 30 days 11/07/2022 Active Zolpidem Tartrate 10 MG 1 tablet at bedtime as needed Orally Once a day 11/07/2022 Active Lurasidone HCl 60 MG TAKE 1 TABLET BY MOUTH EVERY DAY IN THE EVENING WITH FOOD; Duration: 30 Active Spironolactone 50 MG 1 tablet Orally Once a day Active SUMAtriptan Succinate 50 MG 1 tablet orally twice a day (bid) Active Gabapentin 400 MG 1 capsule Orally twice a day (bid) Active DayVigo 5 MG 1 tablet at bedtime Orally Once a day; Duration: 30 days Insurance denied 04/27/2022 Not-Taking Social History Tobacco Use: Social History Observation Description Date Details (start date - stop date) Current Smoker NA - NA Tobacco Screen: Question Answer Notes Are you a: current smoker How often do you smoke cigarettes? every day How many cigarettes a day do you smoke? 11-20 How soon after you wake up do you smoke your fir st cigarette? within 5 min Are you interested in quitting? Ready to quit Alcohol Screening: Question Answer Notes Did you have a drink containing alcohol in the p ast year? No Points 0 Interpretation Negative Depression Screening (PHQ-9): Question Answer Notes Little interest or pleasure in doing things Near ly every day Feeling down, depressed, or hopeless Nearly ever y day Trouble falling or staying a sleep, or sleeping too much Nearly every day Feeling tired or having little energy Nearly roxana ry day Poor appetite or overeating More than half the d ays Feeling bad about yourself-o r that you are a failure or have let yourself or your family down More than half the days Trouble concentrating on thi ngs, such as reading the newspaper or watching television Not at all Moving or speaking so slowly that other people could have noticed. Or the opposite being so fidgety or restless that you have been moving around a lot more than usual Not at all Thoughts that you would be b chidi off , or of hurting yourself in some way Not at all Total Score 16 Intepretation Moderately severe depression Problems Problem Type SNOMED Code ICD Code Onset Dates Problem Status W/U Status Risk Notes Problem Insomnia disorder related to another mental disorder (66772958) Insomnia due to other mental disorder (F51.05) Active confirmed Problem Body mass index 40+ - severely obese (346876143) BMI 45.0-49.9, adult (Z68.42) Active confirmed Problem Body mass index 40+ - morbidly obese (969612529) BMI 40.0-44.9, adult (Z68.41) Active confirmed Problem Mixed bipolar affective disorder, moderate (336081082) Bipolar mixed affective disorder, moderate (F31.62) Active confirmed Encounters Encounter Location Date Provider Diagnosis [address] [address] 02/17/2025 Latrice Tripathi [facility] [address] [facility] [place] [address] 07/15/2024 Shelly Aponte Encounter for dental examination and cleaning with abnormal findings Z01.21 ; Other dental procedure status Z98.818 ; Acute gingivitis, plaque induced K05.00 and Dental caries on pit and fissure surface penetrating into dentin K02.52 [facility] [address] [place] [address] 07/16/2024 Shelly Aponte Dental caries on pit and fissure surface penetrating into dentin K02.52 Assessments Encounter Date Diagnosis (ICD Code) Assessment Notes Treatment Notes Treatment Clinical Notes Section Notes 07/15/2024 Encounter for dental examination and cleaning with abnormal findings (ICD-10 - Z01.21) 07/16/2024 Dental caries on pit and fissure surface penetrating into dentin (ICD-10 - K02.52) 07/15/2024 Other dental procedure status (ICD-10 - Z98.818) 07/15/2024 Acute gingivitis, plaque induced (ICD-10 - K05.00) 07/15/2024 Dental caries on pit and fissure surface penetrating into dentin (ICD-10 - K02.52) Plan Of Treatment No Information Insurance Providers Payer Name Payer Address Payer Phone Subscriber Number Group Number Insured Name Patient Relationship to Insured Coverage Start Date Coverage End Date [employer] [place] [employer] [address] [place] [address] [id number] HEIDI DE LA VEGA Self - patient is the insured 3 [facility] [address] [place] [address] [id number] HEIDI DE LA VEGA Self - patient is the insured 3 [facility] BUCKEYE-te rmed 22 [address] [place] [address] [id number] HEIDI DE LA VEGA Self - patient is the insured 1 3 zBH MEDICAID [facility] after [employer]UC[employer]E-te rmed 22 [address] [place] [address] [id number] HEIDI DE LA VEGA Self - patient is the insured 1 3 zDENTAL [employer]UCKEYE-te rmed 22 [address] [address] [place] [address] [id number] HEIDI DE LA VEGA Self - patient is the insured 2 3 zDental MEDICAID C[facility] after [employer]UCKEYE-te rmed 22 [address] [place] [address] [id number] HEIDI DE LA VEGA Self - patient is the insured 2 3 [facility] [place] [employer] [address] [address] [place] [address] [id number] HEIDI DE LA VEGA Self - patient is the insured 3 [employer] [facility] [place] [address] [place] [address] [id number] HEIDI DE LA VEGA Self - patient is the insured 3 Medical (General) History Medical History History ICD Code depression anxiety hypertension anemia Surgical History Surgery Date(Month/Year) Left Foot Planter 2016 Brain tumor removed 2018 Hospitalization History Reason Date(Month/Year) Brain tumor removed 2018
--- OUTSIDE RECORDS SUMMARY | 2025-04-21 14:16 | XMS_ITS | Encounter Summary ---
Author Organization [employer] Address [id number] [address] [place] [address] Care Team Providers Care Fill Plant Operator Name Role Phone Immanuel Kuhn DO Primary Care Provider [phone] Encounter Details Date Type Department Care Team (Late st Contact Info) Description 08/10/2022 Telephone [facility] [address] [facility] [address] [place] [address] Jenni Bella RN Social History Tobacco Use Types Packs/Day Years [...] AM EST documented as of this encounter Miscellaneous Notes * Telephone Encounter - Jenni Bella RN - 08/10/2022 3:07 PM EST Echo denied per [facility] Ho. Can pursue via peer-peer Have 5 business days to pursue. Call [facility] #[phone]) Tracking number # [id number] Call number [phone]. Follow prompts. Denied: Need details of extra heart sounds on exam or s/s of heart muscle problem. BCD noted 07/31/22 were uploaded prior to denial to [facility]. Will route to [employer] for peer-peer. * Telephone Encounter - CHIP Olson - 08/10/2022 3:07 PM EST Approval number: [id number] valid till September 07. documented in this encounter Plan of Treatment Not on file documented as of this encounter Visit Diagnoses Not on filedocumented in this encounter Care Teams Fill Plant Operator Relationship Specialty Start Date End Date Immanuel Kuhn DO [address] [place] [address] PCP - General Family Medicine 06/26/22 documented as of this encounter
--- OUTSIDE RECORDS SUMMARY | 2025-04-21 14:16 | XMS_ITS | Encounter Summary ---
Author Organization [facility] Address [address] [place] [address] Care Team Providers Care Building Trades Instructor Name Role Phone Immanuel Kuhn DO Primary Care Provider [phone] Esther Carbajal MD Unavailable [phone] Brendan Carter PA-C Unavailable [phone] Source Comments In the event this information is protected by the Federal Confidentiality of Alcohol and Drug AbusePatient Records regulations: The Federal rules restrict any use of the information to criminally investigate or prosecute any alcohol or drug abuse patient.[facility] Encounter Details Date Type Department Care Team (Late st Contact Info) Description 09/06/2023 Patient Msg Endocrine Surgery [address] [place] [address] Provider, [facility] Appointment/Testing Social History Tobacco Use Types Packs/Day Years Used Date Smoking Tobacco: Never Smokeless Tobacco: Never Alcohol Use Standard Drinks/Week Comments Yes 0 (1 standard drink = 0.6 oz pur e alcohol) Area Deprivation Index Answer Date Bashir rded National Score (1-100), lower number is lower ri sk 59 08/20/2023 State Score (1-10), lower number is lower risk 4 08/20/2023 Data from: https://www.neighborhoodatlas.[facility]/. Last address used for calculation [address] [place] [address] [address] 08/20/2023 Comments Unknown Sex and Gender Information Value Date Recorded Sex Assigned at Not on file Legal Sex Female 11:20 AM EDT Gender Identity Female 08/27/2023 2:21 PM EST Sexual Orientation Not on file documented as of this encounter Plan of Treatment Not on file documented as of this encounter Visit Diagnoses Not on filedocumented in this encounter Care Teams Building Trades Instructor Relationship Specialty Start Date End Date Immanuel Kuhn DO [address] [facility] [address] [place] [address] PCP - General Family Medicine 10/23/12 Esther Carbajal MD [address] [facility] [address] [place] [address] Referring Obstetrics 01/28/20 Brendan Carter, PAArunC [address] [facility] [address] [place] [address] Referring Physician Electrician Yard 08/08/23 documented as of this encounter
--- OUTSIDE RECORDS SUMMARY | 2025-04-21 14:16 | XMS_ITS | Encounter Summary ---
Author Organization [facility] Address [address] [place] [address] Care Team Providers Care Guest Service Manager Name Role Phone Immanuel Kuhn DO Primary Care Provider [phone] Esther Carbajal MD Unavailable [phone] Brendan Carter PA-C Unavailable [phone] Source Comments In the event this information is protected by the Federal Confidentiality of Alcohol and Drug AbusePatient Records regulations: The Federal rules restrict any use of the information to criminally investigate or prosecute any alcohol or drug abuse patient.[facility] Encounter Details Date Type Department Care Team (Late st Contact Info) Description 12/17/2023 Get Medical Advice General Surgery [address] [address] [place] [address] [place], [place] [phone] Potassium levels Social History Tobacco Use Types Packs/Day Years Used Date Smoking Tobacco: Every Day Cigarettes Smokeless Tobacco: Never Alcohol Use Standard Drinks/Week Comments Yes 0 (1 standard drink = 0.6 oz pur e alcohol) Area Deprivation Index Answer Date Bashir rded National Score (1-100), lower number is lower ri sk 59 08/20/2023 State Score (1-10), lower number is lower risk 4 08/20/2023 Data from: https://www.neighborhoodatlas.medicine.[facility].edu/. Last address used for calculation [address] 08/20/2023 Comments No Sex and Gender Information Value Date Recorded Sex Assigned at Not on file Legal Sex Female 11:20 AM EDT Gender Identity Female 08/27/2023 2:21 PM EST Sexual Orientation Not on file documented as of this encounter Plan of Treatment Not on file documented as of this encounter Visit Diagnoses Not on filedocumented in this encounter Care Teams Guest Service Manager Relationship Specialty Start Date End Date Immanuel Kuhn DO [address] [place] [address] PCP - General Family Medicine 10/23/12 Esther Carbajal MD [address] [place] [address] Referring Obstetrics 01/28/20 Brendan Carter, PA-C [address] [place] [address] Referring Physician Solar Sales Associate 08/08/23 documented as of this encounter
--- OUTSIDE RECORDS SUMMARY | 2025-04-21 14:16 | XMS_ITS | Encounter Summary ---
Author Organization [facility] Address [address] [place] [address] Care Team Providers Care Easement Worker Name Role Phone BamImmanuel Tatyana ROSARIO Primary Care Provider [phone] Mikael García DO Unavailable [phone] Jacki Braun [facility] Unavailable [phone] HenryNely CLAY PRESS OPERATOR Unavailable [phone] Encounter Details Date Type Department Care Team (Latest Contact Info) Description 04/14/2025 Travel Social History Tobacco Use Types Packs/Day [...] Health [address] [place] [address] Jacki Braun, [facility] [address] [place] [address] 05/13/2025 12:00 PM EDT Social Work [facility] [address] [place] [address] Jacki Braun, [facility] [address] [place] [address] 05/19/2025 3:00 PM EDT Social Work [facility] [place] [facility] [address] [place] [address] Jacki Braun, [facility] [address] [place] [address] 05/20/2025 2:45 PM EDT Office Visit [facility] [address] [place] [address] Isabel Dunaway DPM [address] [place] [address] 05/26/2025 3:00 PM EDT Social Work [facility] [place] [facility] [address] [place] [address] Jacki Braun, [facility] [address] [place] [address] documented as of this encounter Visit Diagnoses Not on filedocumented in this encounter Additional Health Concerns Assessment Noted Time PHQ-9 Depression Total Score: 11 025 8:53 AM EDT documented as of this encounter Care Teams Easement Worker Relationship Specialty Start Date End Date Immanuel Kuhn DO [address] [place] [address] PCP - General Family Medicine 12/25/22 Mikael Garíca DO [address] [place] [address] [facility] 05/05/24 Jacki Braun, [facility] [address] [place] [address] Oceanographer Assistant Behavioral Health 08/18/24 Nely Figueroa LSW [address] [place] [address] Oceanographer Assistant Family Medicine 02/03/25 documented as of this encounter
--- OUTSIDE RECORDS SUMMARY | 2025-04-21 14:16 | XMS_ITS | Encounter Summary ---
Author Organization [facility] Address [address] [place] [address] Care Team Providers Care Reproductive Healthcare Assistant Name Role Phone Immanuel Kuhn DO Primary Care Provider [phone] Immanuel Kuhn DO Unavailable [phone] Brendan Carter PA Unavailable Mikael García DO Unavailable [phone] Jacki Braun [facility] Unavailable [phone] Nely Figueroa [facility] Unavailable [phone] Encounter Details Date Type Department Care Team (Late st Contact Info) Description 12/09/2023 Abstract [facility] [place] [facility] [address] [facility] [address] [place] [address] Immanuel Kuhn DO [address] [facility] [address] [place] [address] Social History Tobacco Use Types Packs/Day Years [...] [address] [place] [address] Jacki Braun, [facility] [address] [place] [address] 05/13/2025 12:00 PM EDT Social Work [facility] [place] [facility] [address] [place] [address] Jacki Braun, [facility] [address] [place] [address] 05/19/2025 3:00 PM EDT Social Work [facility] [place] [facility] [address] [place] [address] Jacki Braun, [facility] [address] [place] [address] 05/20/2025 2:45 PM EDT Office Visit [facility] [address] [place] [address] Isabel Dunaway DPM [address] [place] [address] 05/26/2025 3:00 PM EDT Social Work [facility] [address] [place] [address] Jacki Braun, [facility] [address] [place] [address] documented as of this encounter Visit Diagnoses Not on filedocumented in this encounter Care Teams Reproductive Healthcare Assistant Relationship Specialty Start Date End Date mImanuel Kuhn, DO [address] [place] [address] PCP - General Family Medicine 12/25/22 Immanuel Kuhn, DO [address] [place] [address] PCP - [facility] 11/04/23 Brendan Carter PA [address] [place] [address] PCP - [facility] 02/03/24 Mikael García DO [address] [place] [address] PCP - [facility] 05/05/24 Jacki Braun, [facility] [address] [place] [address] Wire Stripper Behavioral Health 08/18/24 Nely Figueroa LSW [address] [place] [address] Wire Stripper Family Medicine 02/03/25 documented as of this encounter
--- OUTSIDE RECORDS SUMMARY | 2025-04-21 14:16 | XMS_ITS | Encounter Summary ---
Author Organization [facility] Address [address] [place] [address] Care Team Providers Care Pearl Stringer Name Role Phone Bam Immanuel Joe DO Primary Care Provider [phone] Mikael García DO Unavailable [phone] Jacki Braun [facility] Unavailable Henry Nely KIT ASSEMBLER Unavailable [phone] Encounter Details Date Type Department Care Team (Latest Contact Info) Description 04/20/2025 Travel Social History Tobacco Use Types Packs/Day [...] 04/29/2025 2:00 PM EDT Social Work [facility] [place] [facility] [address] [place] [address] Jacki Braun, [facility] [address] [place] [address] 05/13/2025 12:00 PM EDT Social Work [facility] [place] [facility] [address] [place] [address] Jacki Braun [facility] [address] [place] [address] 05/19/2025 3:00 PM EDT Social Work [facility] [place] [facility] [address] [place] [address] Jacki Braun, [facility] [address] [place] [address] 05/20/2025 2:45 PM EDT Office Visit [facility] [place] [facility] [address] [place] [address] Isabel Dunaway DPM [address] [place] [address] 05/26/2025 3:00 PM EDT Social Work [facility] [place] [facility] [address] [place] [address] Jacki Braun [facility] [address] [place] [address] documented as of this encounter Visit Diagnoses Not on filedocumented in this encounter Additional Health Concerns Assessment Noted Time PHQ-9 Depression Total Score: 11 01/27/ 025 8:53 AM EDT documented as of this encounter Care Teams Pearl Stringer Relationship Specialty Start Date End Date Immanuel Kuhn DO [address] [place] [address] PCP - General Family Medicine 12/25/22 Mikael García DO [address] [place] [address] PCP - [facility] 05/05/24 Jacki Braun, [facility] [address] [place] [address] [facility] 08/18/24 Nely Figueroa LSW [address] [place] [address] [facility] 02/03/25 documented as of this encounter
--- OUTSIDE RECORDS SUMMARY | 2025-04-21 14:16 | XMS_ITS | Encounter Summary ---
Author Organization [employer] Address [id number] [address] [place] [address] Care Team Providers Care Knuckler Name Role Phone Immanuel Kuhn DO Primary Care Provider [phone] Encounter Details Date Type Department Care Team (Late st Contact Info) Description 09/07/2022 Orders Only [facility] [address] [facility] [address] [place] [address] Isabel Wang CMA Hypokalemia Social History Tobacco Use Types Packs/Day Years [...] Name Priority Date/Time Associated Diagnosis Comments POTASSIUM STAT 09/07/2022 Hypokalemia documented in this encounter Results * Potassium (09/07/2022) 09/07/2022 us Tiarra Prakash WIRE MACHINE CUTTER-OUTREACH CONSULTANT LAB BLOOD ORDERABLES Fin al Result SUNQUEST documented in this encounter Visit Diagnoses Diagnosis Hypokalemia Hypopotassemia documented in this encounter Care Teams Knuckler Relationship Specialty Start Date End Date Immanuel Kuhn DO [address] [facility] [place] [address] PCP - General Family Medicine 06/26/22 documented as of this encounter
--- OUTSIDE RECORDS SUMMARY | 2025-04-21 14:16 | XMS_ITS | Encounter Summary ---
Author Organization [facility] Address [id number] [address] [place] [address] Care Team Providers Care Lap Winding Machine Operator Name Role Phone Immanuel Kuhn DO Primary Care Provider [phone] Reason for Visit * Reason Onset Date Comments BP monitor order 02/22/2023 Encounter Details Date Type Department Care Team (Late st Contact Info) Description 02/22/2023 [facility]phone [facility] [address] [facility] [address] [place] [address] Gustavo Real, RN BP monitor order Social History Tobacco Use Types Packs/Day Years Used Date Smoking Tobacco: Former Cigarettes Q uit: 10/2022 Alcohol Use Standard Drinks/Week Comments Not Currently [...] encounter Miscellaneous Notes * Telephone Encounter - Gustavo Real RN - 02/22/2023 3:50 PM EDT Images from the original note were not included. Rx for BP monitor signed per MSF and faxed to [facility] at [phone]. Copy scanned to chart. documented in this encounter Plan of Treatment Not on file documented as of this encounter Visit Diagnoses Not on filedocumented in this encounter Care Teams Lap Winding Machine Operator Relationship Specialty Start Date End Date Immanuel Kuhn DO [address] [place] [address] PCP - General Family Medicine 06/26/22 documented as of this encounter
--- OUTSIDE RECORDS SUMMARY | 2025-04-21 14:16 | XMS_ITS | Encounter Summary ---
Author Organization [facility] Address [facility] [id number] [address] [place] [address] Care Team Providers Care Loading Unit Operator Crimping Name Role Phone Immanuel Kuhn DO Primary Care Provider [phone] Encounter Details Date Type Department Care Team (Late st Contact Info) Description 02/20/2023 Orders Only [facility] [address] [facility] [address] [place] [address] External, Scanning Provider Social History Tobacco Use [...] Procedure Name Priority Date/Time Associated Diagnosis Comments MULTIPLE LABS Routine 12/18/2022 MULTIPLE LABS Routine 12/13/2022 MULTIPLE LABS Routine 12/11/2022 documented in this encounter Results * Multiple labs (12/18/2022) 12/18/2022 us Scanning Provider External [place] IMAGING Final Result Performing Organization Address [facility] de Phone Number MANUALLY TRANSCRIBED RESULTS * Multiple labs (12/13/2022) 12/13/2022 us Scanning Provider External NV IMAGING Final Result Performing Organization Address [facility] de Phone Number MANUALLY TRANSCRIBED RESULTS * Multiple labs (12/11/2022) 12/11/2022 us Scanning Provider External [place] IMAGING Final Result Performing Organization Address [facility] de Phone Number MANUALLY TRANSCRIBED RESULTS documented in this encounter Visit Diagnoses Not on filedocumented in this encounter Care Teams Loading Unit Operator Crimping Relationship Specialty Start Date End Date Immanuel Kuhn DO [address] [place] [address] PCP - General Family Medicine 06/26/22 documented as of this encounter
--- OUTSIDE RECORDS SUMMARY | 2025-04-21 14:16 | XMS_ITS | Encounter Summary ---
Author Organization [employer] Address [id number] [address] [place] [address] Care Team Providers Care Subcontract Administrator Name Role Phone Immanuel Kuhn DO Primary Care Provider [phone] Encounter Details Date Type Department Care Team (Late st Contact Info) Description 08/13/2022 Orders Only [facility] [address] [facility] [address] [place] [address] Isabel Wang CMA Hypertension, unspecified type Social History Tobacco Use [...] Procedure Name Priority Date/Time Associated Diagnosis Comments ALDOSTERONE Routine 08/07/2022 Hypertension, unspecified type RENIN ACTIVITY Routine 08/07/2022 Hypertension, unspecified type documented in this encounter Results * Renin Activity (08/07/2022) 08/07/2022 us Bandar Cid DO LAB BLOOD ORDERABLES Final Re sult Performing Organization Address [facility] de Phone Number SUNQUEST * Aldosterone Note: Restrict Location (08/07/2022) 08/07/2022 us Bandar Cdi DO LAB BLOOD ORDERABLES Final Re sult Performing Organization Address [facility] de Phone Number SUNQUEST documented in this encounter Visit Diagnoses Diagnosis Hypertension, unspecified type documented in this encounter Care Teams Subcontract Administrator Relationship Specialty Start Date End Date Immanuel Kuhn DO [address] [place] [address] PCP - General Family Medicine 06/26/22 documented as of this encounter
--- OUTSIDE RECORDS SUMMARY | 2025-04-21 14:16 | XMS_ITS | Encounter Summary ---
Author Organization [facility] Address [address] [place] [address] Care Team Providers Care Fine Hairer Name Role Phone Immanuel Kuhn DO Primary Care Provider [phone] Mikael García DO Unavailable [phone] Jacki Braun [facility] Unavailable [phone] Nely Figueroa HOME DECORATOR Unavailable [phone] Encounter Details Date Type Department Care Team (Late st Contact Info) Description 01/28/2025 Orders Only [facility] [address] [facility] [place] [address] Kortney Roberson LPN [address] [facility] [address] [facility] [address] [facility] [id number] Social History Tobacco Use Types Packs/Day Years [...] Health [address] [place] [address] Jacki Braun, [facility] [address] [place] [address] 05/13/2025 12:00 PM EDT Social Work [facility] [place] [facility] [address] [place] [address] Jacki Braun, [facility] [address] [place] [address] 05/19/2025 3:00 PM EDT Social Work [facility] [place] [facility] [address] [place] [address] Jacki Braun, [facility] [address] [place] [address] 05/20/2025 2:45 PM EDT Office Visit [facility] [place] [facility] [address] [place] [address] Isabel Dunaway DPM [address] [place] [address] 05/26/2025 3:00 PM EDT Social Work [facility] [place] [facility] [address] [place] [address] Jacki Braun, [facility] [address] [place] [address] documented as of this encounter Procedures Procedure Name Priority Date/Time Associated Diagnosis Comments PAP SMEAR Routine 12/18/2021 12:00 AM EDT documented in this encounter Results * Pap Smear (12/18/2021 12:00 AM EDT) Swab Cervical swab / Unknown [place] Nurse [facility] LAB CYTOLOGY ORDERABLES Final Result EXTERNAL LAB documented in this encounter Visit Diagnoses Not on filedocumented in this encounter Additional Health Concerns Assessment Noted Time PHQ-9 Depression Total Score: 11 01/27/ 025 8:53 AM EDT documented as of this encounter Care Teams Fine Hairer Relationship Specialty Start Date End Date Immanuel Kuhn, [address] [place] [address] PCP - General Family Medicine 12/25/22 Mikael García DO [address] [place] [address] PCP - [facility] 05/05/24 Jacki Braun, [facility] [address] [place] [address] [employer] 08/18/24 Nely Figueroa LSW [address] [place] [address] [employer] 02/03/25 documented as of this encounter
--- OUTSIDE RECORDS SUMMARY | 2025-04-21 14:17 | XMS_ITS | Encounter Summary ---
Author Organization [facility] Address [address] [place] [address] Care Team Providers Care Steam Plant Records Clerk Name Role Phone BamImmanuel DO Primary Care Provider [phone] Mikael García DO Unavailable [phone] Jacki Braun [facility] Unavailable [phone] Henry Nely REGIONAL ENVIRONMENTAL MANAGER Unavailable Encounter Details Date Type Department Care Team (Late st Contact Info) Description 11/06/2024 Orders Only [facility] [address] [place] [address] Brendan Catrer PA [address] [place], [place] [id number] Social History Tobacco Use Types Packs/Day Years Used Date Smoking Tobacco: Every Day Cigarettes Last attempted to quit: 08/05/2022 Passive Smoke Exposure: Current Smokeless Tobacco: Never Comments:Cessation discussed Alcohol Use Standard Drinks/Week Comments Not Currently 0 (1 standard drink = 0.6 oz pure alcohol) caffeine intake: 5 cans soda/daily PHQ-2 Answer Date Recorded Patient Health Questionnaire-2 Score 0 02/26/2024 Comments Unknown Sex and Gender Information Value Date Recorded Sex Assigned at Not on file Legal Sex Female 7:20 PM EDT Gender Identity Not on file Sexual Orientation Not on file documented as of this encounter Plan of Treatment Upcoming Encounters Date Type Department Care Team (Late st Contact Info) Description 04/29/2025 2:00 PM EDT Social Work [facility] [address] [place] [address] Jacki Braun, [facility] [address] [place] [address] 05/13/2025 12:00 PM EDT Social Work [facility] [place] [facility] [address] [place] [address] Jacki Braun, [facility] [address] [place] [address] 05/19/2025 3:00 PM EDT Social Work [facility] [place] [facility] [address] [place] [address] Jacki Braun, [facility] [address] [place] [address] 05/20/2025 2:45 PM EDT Office Visit [facility] [place] [facility] [address] [place] [address] Isabel Dunaway DPM [address] [place] [address] 05/26/2025 3:00 PM EDT Social Work [facility] [place] [facility] [address] [place] [address] Jacki Braun, [facility] [address] [place] [address] documented as of this encounter Visit Diagnoses Not on filedocumented in this encounter Care Teams Steam Plant Records Clerk Relationship Specialty Start Date End Date Immanuel Kuhn DO [address] [place] [address] PCP - General Family Medicine 12/25/22 Mikael García [address] [place] [address] [facility] 05/05/24 Jacki Braun, [facility] [address] [place] [address] Soccer Ball Assembler Behavioral Health 08/18/24 Nely Figueroa LSW [address] [place] [address] Soccer Ball Assembler Family Medicine 02/03/25 documented as of this encounter
--- OUTSIDE RECORDS SUMMARY | 2025-04-21 14:17 | XMS_ITS | Encounter Summary ---
Author Organization [facility] Address [address] [place] [address] Phone Care Team Providers Care Chamber Walker Name Role Phone Immanuel Kuhn DO Primary Care Provider [phone] Encounter Details Date Type Department Care Team (Late st Contact Info) Description 01/05/2021 Orders Only [facility] [address] [place] [address] Conversion, Onbase Social History Tobacco Use Types Packs/Day Years Used Date Smoking Tobacco: Never Assessed Comments Unknown Sex and Gender Information Value Date Recorded Sex Assigned at Not on file Legal Sex Female 4:36 AM EST Gender Identity Not on file Sexual Orientation Not on file documented as of this encounter Plan of Treatment Scheduled Orders Name Type Priority Associated Diagnoses Orde r Schedule OUTSIDE LAB SCAN Lab Ordered: 01/05/2021 documented as of this encounter Visit Diagnoses Not on filedocumented in this encounter Care Teams Chamber Walker Relationship Specialty Start Date End Date Immanuel Kuhn DO [address] [place] [address] PCP - General 08/05/99 documented as of this encounter
--- OUTSIDE RECORDS SUMMARY | 2025-04-21 14:17 | XMS_ITS | Encounter Summary ---
Author Organization [facility] Address [address] [place] [address] Care Team Providers Care Applications Engineering Manager Name Role Phone Immanuel Kuhn DO Primary Care Provider [phone] Immanuel Kuhn DO Unavailable [phone] Brendan Carter PA Unavailable Mikael García DO Unavailable [phone] Jacki Braun [facility] Unavailable [phone] Nely Figueroa [facility] Unavailable [phone] Encounter Details Date Type Department Care Team (Late st Contact Info) Description 11/18/2023 Abstract [facility] [address] [facility] [address] [place] [address] Immanuel Kuhn DO [address] [facility] [address] [place] [address] Social History Tobacco Use Types Packs/Day Years Used Date Smoking Tobacco: Former Cigarettes Q uit: 08/05/2022 Smokeless Tobacco: Never Alcohol Use Standard Drinks/Week Comments Not Currently 0 (1 standard drink = 0.6 oz pure alcohol) caffeine intake: 1-2 cans of soda PHQ-2 Answer Date Recorded Patient Health Questionnaire-2 Score 0 10/30/2023 Comments No Sex and Gender Information Value Date Recorded Sex Assigned at Not on file Legal Sex Female 7:20 PM EDT Gender Identity Not on file Sexual Orientation Not on file documented as of this encounter Plan of Treatment Upcoming Encounters Date Type Department Care Team (Late st Contact Info) Description 04/29/2025 2:00 PM EDT Social Work [facility] [address] [place] [address] Jacki Braun, [facility] [address] [place] [address] 05/13/2025 12:00 PM EDT Social Work [facility] [address] [place] [address] Jacki Braun, [facility] [address] [place] [address] 05/19/2025 3:00 PM EDT Social Work [facility] [address] [place] [address] Jacki Braun, [facility] [address] [place] [address] 05/20/2025 2:45 PM EDT Office Visit [facility] [address] [place] [address] Isabel Dunaway DPM [address] [place] [address] 05/26/2025 3:00 PM EDT Social Work [facility] [place] [facility] [address] [place] [address] Jacki Braun, [facility] [address] [place] [address] documented as of this encounter Visit Diagnoses Not on filedocumented in this encounter Care Teams Applications Engineering Manager Relationship Specialty Start Date End Date Immanuel Kuhn DO [address] [place] [address] PCP - General Family Medicine 12/25/22 Immanuel Kuhn, DO [address] [place] [address] PCP - [facility] 11/04/23 Brendan Carter PA [address] [place] [address] PCP - [facility] 02/03/24 Mikael García DO [address] [place] [address] PCP - [facility] 05/05/24 Jacki Braun, [facility] [address] [place] [address] Employee Relations Assistant Behavioral Health 08/18/24 Nely Figueroa LSW [address] [place] [address] Employee Relations Assistant Family Medicine 02/03/25 documented as of this encounter
--- OUTSIDE RECORDS SUMMARY | 2025-04-21 14:17 | XMS_ITS | Encounter Summary ---
Author Organization [facility] Address [id number] [address] [place] [address] Care Team Providers Care Hydraulic Miner Blasting Name Role Phone Immanuel Kuhn DO Primary Care Provider [phone] Encounter Details Date Type Department Care Team (Late st Contact Info) Description 08/02/2022 Orders Only [facility] [address] [facility] [address] [facility] [address] [place] [address] External, Scanning Provider Social History Tobacco Use [...] Date/Time Associated Diagnosis Comments MULTIPLE LABS Routine 07/13/2022 ECG 12-LEAD Routine 07/13/2022 documented in this encounter Results * Multiple labs (07/13/2022) 07/13/2022 us Scanning Provider External [place] [facility] Final Result MANUALLY TRANSCRIBED RESULTS * ECG 12 lead (07/13/2022) us Scanning Provider External ECG ORDERABLES Final Result Performing Organization Address City/State/[facility] Co de Phone Number MANUALLY TRANSCRIBED RESULTS documented in this encounter Visit Diagnoses Not on filedocumented in this encounter Care Teams Hydraulic Miner Blasting Relationship Specialty Start Date End Date Immanuel Kuhn DO [address] [place] [address] PCP - General Family Medicine 06/26/22 documented as of this encounter
--- OUTSIDE RECORDS SUMMARY | 2025-04-21 14:17 | XMS_ITS ---
Author Organization [facility] Address [address] [place] [address] Care Team Providers Care Party Host Name Role Phone Immanuel Kuhn DO Primary Care Provider [phone] Mikael García DO Unavailable [phone] Jacki Braun [facility] Unavailable [phone] Nely Figueroa Unavailable [phone] Chronic Care Management (CCM) Status:Enrolled (Active) Start date:02/03/2025 Enrollment date:02/03/2025 Enrollment reason:Identified from transitional care managment Overview Please assess for Care Management needs. 02/03/25, 4:36 PM - OSKAR Adrian- Patient gives verbal consent to be enrolled in CCM Program and understands there could be a bill for this service. Pt is CCM Bill: No Case Team Name Relationship Phone Nely SCHMITT(Responsible Staff) [facility] [phone] Continued Care and Services Coordination
--- OUTSIDE RECORDS SUMMARY | 2025-04-21 14:17 | XMS_ITS | Encounter Summary ---
Author Organization [facility] Address [id number] [address] [place] [address] Care Team Providers Care Curbstone Setter Name Role Phone Immanuel Kuhn DO Primary Care Provider [phone] Encounter Details Date Type Department Care Team (Late st Contact Info) Description 06/27/2022 Orders Only [facility] [address] [place] [address] External, Scanning Provider Social History Tobacco Use Types Packs/Day Years Used Date Smoking Tobacco: Never Assessed Childcare Answer Date Recorded Childcare Unknown 01/15/2019 [...] have Coronavirus / COVID-19? No / Unsure 06/26/2022 3:40 PM EST documented as of this encounter Plan of Treatment Not on file documented as of this encounter Procedures Procedure Name Priority Date/Time Associated Diagnosis Comments MULTIPLE LABS Routine 06/20/2022 MULTIPLE LABS Routine 06/07/2022 FL UGI AIR CONT W ESOPH Routine 06/07/2022 US ABDOMEN LMTD Routine 06/07/2022 XR CHEST 2 VWS Routine 06/07/2022 ECG 12-LEAD Routine 06/07/2022 documented in this encounter Results * Multiple labs (06/20/2022) 06/20/2022 us Scanning Provider External [place] [facility] Final Result Performing Organization Address [facility] Phone Number MANUALLY TRANSCRIBED RESULTS * Multiple labs (06/07/2022) 06/07/2022 us Scanning Provider External [place] [facility] Final Result Performing Organization Address [facility] de Phone Number MANUALLY TRANSCRIBED RESULTS * Ultrasound abdomen limited (06/07/2022) Anatomical Region Laterality Modality Body, Abdomen Ultrasound us Scanning Provider External IMG US ORDERABLES Fin al Result * X-ray chest 2 views (06/07/2022) Anatomical Region Laterality Modality Body, Chest N/A Computed Radiogr aphy us Scanning Provider External IMG DIAGNOSTIC IMAGIN G ORDERABLES Final Result * Fluoroscopy upper GI air contrast with esophagus (06/07/2022) Anatomical Region Laterality Modality Abdomen, Body Radiographic Mary ging us Scanning Provider External IMG FLUOROSCOPY ORDER JAYLA Final Result * ECG 12 lead (06/07/2022) us Scanning Provider External ECG ORDERABLES Final Result Performing Organization Address [facility] de Phone Number MANUALLY TRANSCRIBED RESULTS documented in this encounter Visit Diagnoses Not on filedocumented in this encounter Care Teams Curbstone Setter Relationship Specialty Start Date End Date Immanuel Kuhn DO [address] [place] [address] PCP - General Family Medicine 06/26/22 documented as of this encounter
--- OUTSIDE RECORDS SUMMARY | 2025-04-21 14:17 | XMS_ITS | Clinical Summary ---
Author Organization [facility] Address [address] [place] [address] Care Team Providers Care Client Account Manager Name Role Phone Ravindra Eddy MD Unavailable [phone] Immanuel Kuhn DO Primary Care Provider [phone] Allergies No known active allergies Medications amLODIPine (Norvasc) 10 mg tablet in the morning. 0 Active propranolol (Inderal) 40 mg tablet Take 40 mg by mouth in the morning and 40 mg in the evening. Active carvedilol (Coreg) 25 mg tablet Take 50 mg by mouth in the morning and 50 mg in the evening. 3 Active sertraline (Zoloft) 50 mg tablet in the morning. Active Latuda 40 mg tablet TAKE 1 TABLET BY MOUTH IN THE EVENING WITH FOOD 3 Active hydrALAZINE (Apresoline) 100 mg tablet Take 100 mg by mouth with breakfast and with evening meal. 2 Active biotin 1 mg capsule Take by mouth in the morning. Active omeprazole (PriLOSEC) [address] capsule Take by mouth in the morning. 2 Active gabapentin (Neurontin) 400 mg capsule TAKE 1 CAPSULE BY MOUTH TWICE A DAY FOR 30 DAYS 3 Active lamoTRIgine (LaMICtal) 150 mg tablet TAKE 2 TABLETS BY MOUTH ONCE DAILY FOR 30 DAYS 2 Active multivitamin capsule 1 (one) time each day at the same time. 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 Glioma 07/21/2018 Generalized headache 07/15/2018 Family History Medical History Relation Name Comments Diabetes Father Hypertension Father Diabetes Mother Thyroid cancer Mother Relation Name Status Comments Father Mother Social History Tobacco Use Types Packs/Day Years Used Date Smoking Tobacco: Every Day Cigarettes Smokeless Tobacco: Never Tobacco Cessation:Ready to Q uit: Not Asked; Counseling Given: Not Answered Alcohol Use Standard Drinks/Week Comments Never 0 (1 standard drink = 0.6 oz pur e alcohol) PHQ-2 Answer Date Recorded Patient Health Questionnaire-2 Score 0 11/05/2022 [place] Safety & Environment Answer Date Rec orded Fear of Current or Ex-Partner Not on file Emotionally Abused Not on file 09/26/2023 Physically Abused Not on file 09/26/2023 Sexually Abused Not on file 09/26/2023 Physically or Sexually Abused Not on file Comments No Sex and Gender Information Value Date Recorded Sex Assigned at Not on file Legal Sex Female 12:09 AM EDT Gender Identity Not on file Sexual Orientation Not on file Last Filed Vital Signs Vital Sign Reading Time Taken Comments Blood Pressure 165/90 11/05/2022 11:21 AM EDT Pulse 70 11/05/2022 11:21 AM EDT Temperature 36.5 C (97.7 F) 09/10/2022 9:51 AM EST Respiratory Rate 18 09/11/2019 11:26 AM EST Oxygen Saturation 100% 11/05/2022 11:21 AM EDT Inhaled Oxygen Concentration - - Weight 142 kg (313 lb) 11/05/2022 11:21 AM EDT Height 170.2 cm (5' 7 ) 09/10/2022 9:51 AM EST Body Mass Index 49.02 09/10/2022 9:51 AM EST Plan of Treatment Health Maintenance Due Date Last Done Comments Diabetes: Hemoglobin A1C 1991 Diabetes: Retinopathy Screening 2001 Depression Screening 2003 Varicella Vaccines (1 of 2 - 13+ 2-dose series) 2004 Hepatitis B Vaccines (1 of 3 - 19+ 3-dose series) 2010 Pneumococcal Vaccine: Pediat rics (0 to 5 Years) and At-Risk Patients (6 to 64 Years) (1 of 2 - PCV) 2010 Pap Smear 2012 Adult Tetanus 2013 Cervical Cancer Screening 2021 HPV/Cotest 2021 Diabetes: Urine Protein Screening 11/09/2021 021 COVID-19 Vaccine (2023-09 5 season) 2025 Influenza Vaccine (#1) 2025 Zoster Vaccines (1 of 2) 2041 HIB Vaccines Aged Out No longer eligi ble based on patient's age to complete this topic HPV Vaccines Aged Out No longer eligi ble based on patient's age to complete this topic IPV Vaccines Aged Out No longer eligi ble based on patient's age to complete this topic Meningococcal B Vaccine Aged Out No l onger eligible based on patient's age to complete this topic Meningococcal Vaccine Aged Out No willian corinna eligible based on patient's age to complete this topic Rotavirus Vaccines Aged Out No longer eligible based on patient's age to complete this topic Insurance [facility] Care Teams Client Account Manager Relationship Specialty Start Date End Date Immanuel Kuhn DO [address] [place] [address] PCP - General 09/06/22 Ravindra Eddy MD [address] [place] [address] Surgeon Neurosurgery 09/06/22
--- OUTSIDE RECORDS SUMMARY | 2025-04-21 14:17 | XMS_ITS | Encounter Summary ---
Author Organization [facility] Address [address] [facility] [place] [address] Care Team Providers Care Datawarehouse Developer Name Role Phone Immanuel Kuhn DO Primary Care Provider [phone] Brendan Carter Unavailable Immanuel Kuhn DO Unavailable [phone] Brendan Carter Unavailable Mikael García DO Unavailable [phone] Jacki Braun [facility] Unavailable [phone] Nely Figueroa [facility] Unavailable [phone] Encounter Details Date Type Department Care Team (Late st Contact Info) Description 08/21/2023 Orders Only [facility] [place] [facility] [address] [facility] [address] [place] [address] A, Unknown Practice [address] [id number] Social History Tobacco Use Types Packs/Day Years [...] [address] [place] [address] Jacki Braun, [facility] [address] [place] [address] 05/13/2025 12:00 PM EDT Social Work [facility] [place] [facility] [address] [place] [address] Jacki Braun, [facility] [address] [place] [address] 05/19/2025 3:00 PM EDT Social Work [facility] [place] [facility] [address] [place] [address] Jacki Braun, [facility] [address] [place] [address] 05/20/2025 2:45 PM EDT Office Visit [facility] [place] [facility] [address] [place] [address] Isabel Dunaway DPM [address] [place] [address] 05/26/2025 3:00 PM EDT Social Work [facility] [place] [facility] [address] [place] [address] Jacki Braun, [facility] [address] [place] [address] documented as of this encounter Procedures Procedure Name Priority Date/Time Associated Diagnosis Comments SCANNED LABS Routine 08/20/2023 9:23 AM EST SCANNED LABS Routine 08/20/2023 9:00 AM EST SCANNED LABS Routine 08/20/2023 8:00 AM EST documented in this encounter Results * SCANNED LABS (08/20/2023 9:23 AM EST) us Unknown Practice A LAB CHG PERFORMABLES Final Re sult * SCANNED LABS (08/20/2023 9:00 AM EST) us Unknown Practice A LAB CHG PERFORMABLES Final Re sult * SCANNED LABS (08/20/2023 8:00 AM EST) us Unknown Practice A LAB CHG PERFORMABLES Final Re sult documented in this encounter Visit Diagnoses Not on filedocumented in this encounter Care Teams Datawarehouse Developer Relationship Specialty Start Date End Date Immanuel Kuhn DO [address] [place] [address] PCP - General Family Medicine 12/25/22 Brendan Carter PA [address] [place] [address] PCP - [facility] 02/02/23 Immanuel Kuhn DO [address] [place] [address] PCP - [facility] 11/04/23 Brendan Carter PA [address] [place] [address] PCP - [facility] 02/03/24 Mikael aGrcía DO [address] [place] [address] PCP - [facility] 05/05/24 Jacki Braun [facility] [address] [place] [address] Physical Therapy Asst Behavioral Health 08/18/24 Nely Figueroa, [facility] [address] [facility] [address] [place] [address] Physical Therapy Asst Family Medicine 02/03/25 documented as of this encounter
--- OUTSIDE RECORDS SUMMARY | 2025-04-21 14:17 | XMS_ITS | Clinical Summary ---
Author Organization [facility] Address [address] [place] [address] Phone Care Team Providers Care Cephalometric Analyst Name Role Phone Immanuel Kuhn DO Primary Care Provider [phone] Social History Tobacco Use Types Packs/Day Years Used Date Smoking Tobacco: Never Assessed Comments Unknown Sex and Gender Information Value Date Recorded Sex Assigned at Not on file Legal Sex Female 4:36 AM EST Gender Identity Not on file Sexual Orientation Not on file Last Filed Vital Signs Vital Sign Reading Time Taken Comments Blood Pressure 138/89 06/06/2022 4:17 PM EDT Pulse 71 06/06/2022 3:45 PM EDT Temperature - - Respiratory Rate - - Oxygen Saturation - - Inhaled Oxygen Concentration - - Weight 138 kg (305 lb) 06/06/2022 3:45 PM EDT Height 170.2 cm (5' 7 ) 06/06/2022 3:45 PM EDT Body Mass Index 47.77 06/06/2022 3:45 PM EDT Plan of Treatment Health Maintenance Due Date Last Done Comments HIV Screening 1991 Lipid Panel 1991 Yearly Adult Physical 1991 MMR Vaccines (1 of 1 - Stand herminio series) 1992 Hepatitis C Screening 2009 Hepatitis B Vaccines (1 of 3 - 19+ 3-dose series) 2010 Cervical Cancer Screening 2012 HPV/Cotest 2012 Pap Smear 2012 DTaP/Tdap/Td Vaccines (1 - Tdap) 2013 HPV Vaccines (1 - 3-dose sta ndard series) 2018 COVID-19 Vaccine (1 - 2023-2 5 season) 2025 Influenza Vaccine (#1) 2025 Zoster Vaccines (1 of 2) 2041 HIB Vaccines Aged Out No longer eligi ble based on patient's age to complete this topic Hepatitis A Vaccines Aged Out No long er eligible based on patient's age to complete this topic IPV Vaccines Aged Out No longer eligi ble based on patient's age to complete this topic Meningococcal Vaccine Aged Out No willian corinna eligible based on patient's age to complete this topic Pneumococcal Vaccine: Pediat rics and At-Risk Adult Patients Aged Out No longer carlee gible based on patient's age to complete this topic Rotavirus Vaccines Aged Out No longer eligible based on patient's age to complete this topic Care Teams Cephalometric Analyst Relationship Specialty Start Date End Date Immanuel Kuhn DO [address] [place] [address] PCP - General 08/05/99
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
--- OUTSIDE RECORDS SUMMARY | 2025-04-21 15:23 | XMS_ITS | CCD ---
Author Organization [facility] Care Team Providers Care Wild [place] Photographer Name Role Phone Spasic, Carmelo Unavailable Unavailable Spasic, Carmelo Unavailable Unavailable IMMANUEL KUHN Unavailable Unavailable Immanuel Kuhn Unavailable Unavailable Unavailable DO Immanuel Kuhn Primary Care Provider NETTIE Prakash Attending Provider [phone] REJI Rhodes Attending Provider [phone] RAVINDRA LEMA Referring Unavailable RAVINDRA LEMA Attending [...] Unavailable Immanuel Kuhn DO Primary Care Provider Bridgette URIBE, Esther P Unavailable Татьяна Carter PA-C Unavailable DO Immanuel Kuhn Primary Care Provider MD Zara Ralph Attending Provider Immanuel Kuhn DO Primary Care Provider Татьяна Angeles Unavailable Immanuel Kuhn DO Primary Care Provider DO Immanuel Kuhn Primary Care Provider JANA Dawson Emergency Provider [phone] Immanuel Kuhn Primary Care Unavailable Eliot Dawson Attending Unavailable Eliot Dawson Admitting Unavailable Ramo, Zara Admitting Unavailable Immanuel Kuhn Primary Care Unavailable Zara Ralph Attending Unavailable ELIOT GARCÍA Primary Care Physician [phone] Kvng Marie Attending Unavaila ble Sarmincollins, Kvng Talleeanne Admitting Unavaila ble Frank, Kvng Duran Attending Unavaila ble IMMANUEL KUHN Primary Care Unavailable MARIO SANTIAGO Admitting Unavailable MARIO SANTIAGO Attending Unavailable IMMANUEL KUHN Primary Care Unavailable GLORY SALCEDO Referring Unavailable ASHOUR, TAREK Referring Unavailable IMMANUEL KUHN Primary Care Unavailable ASHOUR, TAREK Referring Unavailable IMMANUEL KUHN Primary Care Unavailable ASHOUR, TAREK Referring Unavailable IMMANUEL KUHN Primary Care Unavailable IMMANUEL KUHN Primary Care Unavailable MARIO SANTIAGO Attending Unavailable ASHOUR, TAREK Attending Unavailable IMMANUEL KUHN [...] Unavailable VEERAMACHANENI, RAVALI Referring Unavailab le VEERAMACHANENI, RAVALI Attending Unavailab le IMMANUEL KUHN Primary Care Unavailable ASHOUR, TAREK Referring Unavailable BAM, IMMANUEL Joe Primary Care Unavailable ARIANNA LORA Referring Unavailable IMMANUEL KUHN Primary Care Unavailable ASHOUR, TAREK Referring Unavailable BAM, IMMANUEL Jeo Primary Care Unavailable ASHOUR, TAREK Referring Unavailable BAM, IMMANUEL Joe Primary Care Unavailable GUJOHN, MIGEL HONEY Attending Unavailabl e GUJOHN, MIGEL HONEY Admitting Unavailabl e IMMANUEL KUHN Primary Care Unavailable VEERAMACHANENI, RAVALI Referring Unavailab le IMMANUEL KUHN Primary Care Unavailable PAMELA, MARIO Attending Unavailable BAM, IMMANUEL Joe Primary Care Unavailable VEERAMACHANENI, RAVALI Referring Unavailab le COTJACOB, ARMANDO Referring Unavailable BAM, IMMANUEL Joe Primary Care Unavailable KEVIN, NATASHA Referring Unavailable BAM, IMMANUEL Joe Primary Care Unavailable VEERAMACHANENI, RAVALI Attending Unavailab le BAM, IMMANUEL Joe Primary Care Unavailable VEERAMACHANENI, RAVALI Referring Unavailab le BAM, IMMANUEL Joe Primary Care Unavailable BAM, IMMANUEL Joe Primary Care Unavailable BAM, IMMANUEL Joe Primary Care Unavailable IMMANUEL KUHN Primary Care Unavailable PAMELA, MARIO Admitting Unavailable PAMELA, MARIO Attending Unavailable IMMANUEL KUHN Primary Care Unavailable GLORY SALCEDO Referring Unavailable BAM, IMMANUEL Joe Primary Care Unavailable PAMELA, MARIO Referring Unavailable BHAVNA WALTERS Referring Unavailable IMMANUEL KUHN Primary Care Unavailable ASHOUR, TAREK Attending Unavailable BAM, IMMANUEL Joe Primary Care Unavailable ASHOUR, TAREK Referring Unavailable IMMANUEL KUHN Primary Care Unavailable COTRELL, ARMANDO Referring Unavailable IMMANUEL KUHN Primary Care Unavailable Татьяна Angeles Unavailable Eliot García DO Unavailable [phone] [facility], Sheila L Unavailable Kvng Marie Attending Unavaila ble Leannmincollins, Kvng Duran Attending Unavaila ble Sarmini, Kvng Talal Referring Unavaila ble Leannmini, Kvng Talal Attending Unavaila ble Frank, Kvng Talal Attending Unavaila ble Frank, Kvng Talal Referring Unavaila Jose Mcintyre Attending Unavailable Nely Cobian Unavailable BRAUN, SHEILA L Attending Unavailable BRAUN, SHEILA L Attending Unavailable BRAUN, SHEILA L Attending Unavailable BAMIMMANUEL YOUNG Attending Unavailable BRAUN, SHEILA L Attending Unavailable BRAUN, SHEILA L Attending Unavailable BRAUN, SHEILA L Attending Unavailable BRAUN, SHEILA L Attending Unavailable BRAUN, SHEILA L Attending Unavailable BRAUN, SHEILA L Attending Unavailable BRAUN, SHEILA L Attending Unavailable BRAUN, SHEILA L Attending Unavailable BRAUN, SHEILA L Attending Unavailable BRAUN, SHEILA L Attending Unavailable CUTLER, ELIOT L Attending Unavailable BAMIMMANUEL YOUNG Attending Unavailable BRAUN, SHEILA L Attending Unavailable [...] Attending Unavailable CUTLER, ELIOT L Referring Unavailable IMMANUEL KUHN Referring Unavailable CUTLER, ELIOT L Attending Unavailable BRAUN, SHEILA L Attending Unavailable JESSICA KAPLANICA L Attending Unavailable BRAUN, SHEILA L Attending Unavailable BRAUN, SHEILA L Attending Unavailable ESTHER ANGELES Attending Unavailable BRAUN, SHEILA L Attending Unavailable CUTLER, ELIOT L Attending Unavailable BRAUN, SHEILA L Attending Unavailable BRAUN, SHEILA L Attending Unavailable BRAUN, SHEILA L Attending Unavailable BRAUN, SHEILA L Attending Unavailable CUTLER, ELIOT L Attending Unavailable BRAUN, SHEILA L Attending Unavailable BRAUN, SHEILA L Attending Unavailable IMMANUEL KUHN Attending Unavailable BRAUN, SHEILA L Attending Unavailable BRAUN, SHEILA L Attending Unavailable DUANWAY, MANASA H Attending Unavailable BRAUN, SHEILA L Attending Unavailable DUNAWAY, MANASA H Attending Unavailable ТАТЬЯНА CARTER Attending Unavailable Allergies Allergy Classification Reported Allergen(s) Allergy Type Date of Onset Reaction(s) Facility (3 sources) No Known Medication Allergies; Translations: [No Known Medication Allergies] Propensity to adverse reactions to drug (disorder) [facility] Rep[facility] Medications Current Medications Medication Drug Class(es) Dates Sig (Normalized) Sig (Original) biotin 1 mg oral capsule (8 sources) take 1 capsule by mouth in the morning biotin 1 MG capsule Take 1 capsule by mouth in the morning. 0 Active brexpiprazole 1 mg oral tablet (20 sources) Atypical Antipsychotic Start: 06-18-2023 End: 08-18-2024 take 1 tablet by mouth once daily REXULTI 1 mg tablet TAKE 1 TABLET BY MOUTH ONCE DAILY AT THE SAME TIME 06/18/2023 Active Comment on above: TAKE 1 TABLET BY ROSITA TH ONCE DAILY AT THE SAME TIME Calcium Carbonate (1 source) Start: 05-04-2024 Tums mg, Chewed, Daily, Refills(s) 0 Start Date: 05/04/24 Status: Ordered Calcium Carbonate+Vitamin D (3 sources) Calcium Carbonate+Vitamin D Active calcium carbonate-vitamin D 600-400 MG-UNIT tablet (8 sources) take 1 tablet by mouth once daily calcium carbonate-vitamin D 600-400 MG-UNIT tablet Take 1 tablet by mouth 1 (one) time each day at the same time 0 Active cariprazine 3 mg oral capsule (2 sources) Atypical Antipsychotic Start: 04-02-2025 take 1 capsule by mouth once daily Vraylar 3 MG capsule Take 1 capsule by mouth Daily 04/02/2025 Active cefuroxime 500 mg oral tablet (3 sources) Cephalosporin Antibacterial Start: 09-13-2023 End: 09-23-2023 take 1 tablet by mouth in the morning cefuroxime (Ceftin) 500 MG tablet Indications: Acute bronchitis, unspecified organism Take 1 tablet (500 mg) by mouth in the morning and 1 tablet (500 mg) before bedtime. Do all this for 10 days. 20 tablet 0 09/13/2023 09/23/2023 Active cetirizine hydrochloride 10 mg oral tablet (13 sources) Histamine-1 Receptor Antagonist Start: 05-13-2024 End: 05-13-2025 take 1 tablet by mouth once daily cetirizine (ZyrTEC ALLERGY) 10 MG tablet Indications: Seasonal allergic rhinitis, unspecified trigger Take 1 tablet (10 mg) by mouth Daily 30 tablet 11 05/13/2024 06/04/2024 Discontinued End: 02-26-2024 take 1 tablet by mouth once daily cetirizine (ZyrTEC) 10 MG tablet Take 10 mg by mouth Daily 02/26/2024 Discontinued Cosyntropin (7 sources) Adrenocorticotropic Hormone Start: 04-08-2024 End: 04-08-2024 COSYNTROPIN IJ Inject 0.25 mg into the shoulder, thigh, or buttocks Do not start before April 08, 2024. 04/08/2024 04/08/2024 Active 12 hr dextromethorphan hydrobromide 30 mg / guaiFENesin 600 mg extended release oral tablet (11 sources) Uncompetitive H-fxjumc-I-aspartate Receptor Antagonist, Sigma-1 Agonist Start: 05-13-2024 End: 06-04-2024 take 1 tablet by mouth in the morning, then take 1 tablet by mouth every twelve hours at bedtime Dextromethorphan -guaiFENesin (Mucinex DM) 30-600 MG tablet sustained-releas e 12 hour Indications: Seasonal allergic rhinitis, unspecified trigger Take 1 tablet by mouth in the morning and 1 tablet before bedtime. 60 tablet 2 05/13/2024 06/04/2024 Discontinued dicyclomine hydrochloride 20 mg oral tablet (18 sources) Anticholinergic Start: 02-26-2024 End: 05-07-2024 dicyclomine (Bentyl) 20 MG tablet Indications: Irritable bowel syndrome with both constipation and diarrhea TAKE 1 TABLET IN THE MORNING, 1 AT NOON, 1 IN THE EVENING, 1 BEFORE BEDTIME BEFORE MEALS 360 tablet 1 03/19/2024 Active doxycycline hyclate 100 mg oral capsule (2 sources) Tetracycline-class Drug Start: 06-09-2024 End: 06-16-2024 doxycycline (Vibramycin) 100 MG capsule Indications: Miscarriage Take 1 capsule (100 mg) by mouth in the morning and 1 capsule (100 mg) before bedtime. Do all this for 7 days. Take with at least 8 ounces (large glass) of water, do not lie down for 30 minutes after. 14 capsule 06/09/2024 06/16/2024 Active ethinyl estradiol 0.035 mg / norethindrone 0.75 mg oral tablet (9 sources) Estrogen take 1 tablet by mouth in the morning norethindrone-et hinyl estradiol (Necon ) 0.5/0.75/1-35 MG-MCG tablet Take 1 tablet by mouth in the morning. 0 Active End: 08-20-2023 take 1 tablet by mouth once daily, then take [id number] tablet by mouth once Norethindrone-Eth Estradiol (ALYACEN , ,) 1-35 mg-mcg per tablet Take 1 tablet by mouth once daily. 0 08/20/2023 Discontinued Comment on above: Take 1 tablet by rosita th once daily. famotidine 40 mg oral tablet (20 sources) Histamine-2 Receptor Antagonist Start: End: take 1 tablet by mouth once daily famotidine (Pepcid) 40 MG tablet Indications: Gastroesophageal reflux disease with esophagitis without hemorrhage Take 1 tablet (40 mg) by mouth Daily 90 tablet 3 04/20/2025 Active Start: 10-12-2024 End: 11-05-2024 take 1 tablet by mouth once daily famotidine (Pepcid) 20 MG tablet Indications: Gastroesophageal reflux disease with esophagitis without hemorrhage TAKE 1 TABLET BY MOUTH EVERY DAY 90 tablet 1 10/12/2024 11/05/2024 Discontinued (Reorder) Start: 06-03-2024 End: 06-17-2024 take 1 tablet by mouth once daily famotidine (Pepcid) 20 MG tablet Take 20 mg by mouth Daily 06/03/2024 06/17/2024 Discontinued Start: 03-19-2024 End: 06-04-2024 take 1 tablet by mouth twice daily Pepcid 40 mg Tab 40 mg = 1 tab(s), Oral, BID, # 90 tab(s), Refills(s) 3, Pharmacy: [facility]/pharmacy #[id number], 169, cm, 03/19/24 14:00:00 EDT, Height/Length Dosing, 76, kg, 03/19/24 14:00:00 EDT, Weight Dosing Start Date: 03/19/24 Status: Ordered Start: 03-11-2024 take 1 tablet by rosita th once daily famotidine (Pepcid) 20 MG tablet Indications: Gastroesophageal reflux disease with esophagitis without hemorrhage Take 1 tablet (20 mg) by mouth Daily 90 tablet 1 03/11/2024 Active Start: 02-21-2024 take 40 mg by mouth once daily at bedtime Famotidine Active 40 MG PO Daily at bedtime February 21, 2024 12:00am ferrous gluconate 324 mg oral tablet (20 sources) Start: 12-30-2024 End: 04-20-2025 take 1 tablet by mouth at mealtime ferrous gluconate (Fergon) 324 (38 Fe) MG tablet Indications: Iron deficiency anemia, unspecified iron deficiency anemia type Take 1 tablet (324 mg) by mouth in the morning. Take with meals. 90 tablet 3 04/20/2025 Active ferrous sulfate 134 mg oral tablet (20 sources) Ferrous Sulfate 27 mg iron tab Take by mouth twice daily. Active Comment on above: Take by mouth twice daily. fluconazole 150 mg oral tablet (14 sources) Azole Antifungal Start: 03-25-2024 End: 05-07-2024 take 1 tablet by mouth every other day fluconazole (Diflucan) 150 MG tablet Indications: Vaginal astrid Take 1 tablet (150 mg) by mouth every other day 2 tablet 03/25/2024 05/07/2024 Discontinued hydrocortisone 5 mg oral tablet (15 sources) Corticosteroid Start: 02-13-2024 hydrocortisone (CORTEF) 5 mg tablet Take 1 [...] evening. 150 tablet 2 01/29/2024 04/28/2024 Active Start: 01-29-2024 End: 02-26-2024 hydrocortisone (Cortef) 10 M G tablet Take by mouth 01/29/2024 02/26/2024 Discontinued ketoconazole 20 mg/ml topical cream (8 sources) Azole Antifungal Start: 07-13-2022 ketoconazole (NIZOral) 2 % cream Apply 1 application topically in the morning. 0 07/13/2022 Active loperamide hydrochloride 2 mg oral tablet (4 [...] BY MOUTH PRIOR TO PROCEDURE 11/28/2023 Active Multivitamin preparation (3 sources) take 1 tablet by mouth once daily Multi Vitamin - 1 tablet Orally Once a day Active ondansetron 4 mg oral tablet (20 sources) Serotonin-3 Receptor Antagonist Start: 04-20-2025 take 1 tablet by mouth every eight hours as needed for nausea and vomiting and nausea and nausea ondansetron (Zofran) 4 MG tablet Indications: Nausea Take 1 tablet (4 mg) by mouth every 8 (eight) hours if needed for nausea or vomiting 20 tablet 1 04/20/2025 Active Start: 06-19-2024 End: 12-09-2024 take 1 tablet by mouth every eight hours for nausea ondansetron ODT (Zofran-ODT) 4 MG disintegrating tablet Indications: Anastomotic ulcer Take 1 tablet (4 mg) by mouth every 8 (eight) hours if needed for nausea or vomiting 30 tablet 1 11/05/2024 12/09/2024 Discontinued Start: 05-05-2024 End: 06-17-2024 take 1 tablet by mouth every eight hours for nausea ondansetron ODT (Zofran-ODT) 4 MG disintegrating tablet Indications: Nausea and vomiting, unspecified vomiting type Take 1 tablet (4 mg) by mouth every 8 (eight) hours if needed for nausea or vomiting 30 tablet 1 05/28/2024 06/17/2024 Discontinued Start: 03-25-2024 End: 04-14-2024 take 1 tablet by mouth every eight hours for nausea ondansetron ODT (Zofran-ODT) 4 MG disintegrating tablet Indications: Nausea and vomiting, unspecified vomiting type Take 1 tablet (4 mg) by mouth every 8 (eight) hours if needed for nausea or vomiting for up to 20 days 30 tablet 1 03/25/2024 04/14/2024 Active Start: 01-01-2024 End: 02-20-2024 take 1 tablet by mouth every eight hours as needed for nausea and vomiting and nausea and nausea ondansetron (Zofran) 4 MG tablet Indications: Nausea Take 1 tablet (4 mg) by mouth every 8 (eight) hours if needed for nausea or vomiting 60 tablet 1 01/01/2024 02/20/2024 Discontinued Start: 08-19-2023 take 1 tablet by rosita th every eight hours as needed for nausea and vomiting and nausea and nausea ondansetron (Zofran) 4 MG tablet Indications: Nausea Take 1 tablet (4 mg) by mouth every 8 (eight) hours if needed for nausea or vomiting 60 tablet 1 08/19/2023 Active potassium chloride 20 meq powder for oral solution (20 sources) Start: 12-16-2023 End: 09-11-2024 take 60 mEq [...] 540 tablet 2 12/13/2023 12/16/2023 Discontinued Start: 11-28-2023 End: 02-20-2024 take 40 mEq by mouth twice daily potassium chloride (KLOR-CON) 20 mEq packet Take 40 mEq by mouth two times a day. 540 Packet 2 12/19/2023 01/02/2024 Discontinued Start: 11-28-2023 End: 09-28-2024 take 40 mEq by mouth three times daily potassium chloride (KLOR-CON) 20 mEq packet Take 40 mEq by mouth three times a day. 540 Packet 2 01/02/2024 09/28/2024 Active Start: 09-26-2023 End: 02-26-2024 take 1 capsule by mouth in the morning potassium chloride ER (Micro-K) 10 MEQ ER capsule Take 10 mEq by mouth in the morning and 10 mEq before bedtime. 09/26/2023 02/26/2024 Discontinued Start: 04-27-2022 End: 12-13-2023 take 2 tablets by mouth once daily potassium chloride ER (KLOR-CON) 20 mEq tablet Take 20 mEq by mouth. 4 meq 2 x daily 0 04/27/2022 12/13/2023 Discontinued Start: 04-27-2022 potassium chlo ride ER (KLOR-CON) 20 mEq tablet Take 20 mEq by mouth. 0 04/27/2022 Active take 4 tablets by mo uth [...] suspension (20 sources) Aluminum Complex Start: 05-04-20 sucralfate 1 g/10 mL Oral Susp 10 [...] day(s), # 56 tab(s), Refills(s) 0, Pharmacy: [facility]/pharmacy #[id number], 169, cm, 03/19/24 14:00:00 EDT, Height/Length Dosing, 76, kg, 03/19/24 14:00:00 EDT, Weight Dosing Start Date: 03/19/24 Stop Date: 04/02/24 Status: Ordered traMADol hydrochloride 50 mg oral tablet (1 source) Opioid Agonist Start: 01-29-2024 End: 02-05-2024 take 1 tablet by mouth every eight hours as needed traMADol (ULTRAM) 50 mg tablet Indications: Post-operative pain Take 1 tablet by mouth every 8 hours as needed for up to 7 days. 21 tablet 0 01/29/2024 02/05/2024 Active 24 hr verapamil hydrochloride 120 mg extended release oral capsule (18 sources) Calcium Channel Clover Start: 02-29-2024 End: 02-28-2025 take 1 capsule by mouth every twenty-four hours at bedtime verapamil ER (Verelan) 120 MG 24 hr capsule Indications: Irritable bowel syndrome with diarrhea Take 1 capsule (120 mg) by mouth at bedtime Do not crush or chew. 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 ARIPiprazole 5 mg oral tablet (20 sources) Atypical Antipsychotic Start: 01-27-2025 End: 04-20-2025 take 1 tablet by mouth once daily ARIPiprazole (Abilify) 5 MG tablet Indications: Bipolar affective disorder, currently depressed, mild (HCC) Take 1 tablet (5 mg) by mouth Daily 90 tablet 1 01/27/2025 04/20/2025 Discontinued benzoyl peroxide 50 mg/ml topical solution (13 sources) Start: 10-30-2023 End: 02-20-2024 benzoyl peroxide (Benzoyl Peroxide Wash) 5 % external wash Indications: Hidradenitis suppurativa of right axilla WASH AFFECTED AREAS EVERY DAY *ALTERNATE WITH HIBICLENS* 148 g 1 10/30/2023 02/20/2024 Discontinued Start: 05-23-2023 Benzoyl Peroxi de Wash 5 % external wash Indications: Hidradenitis suppurativa of right axilla WASH AFFECTED AREAS EVERY DAY *ALTERNATE WITH HIBICLENS* 148 g 1 05/23/2023 Active Benzoyl Peroxide Wash 5 % 1 application Externally Once a day Active busPIRone hydrochloride 10 mg oral tablet (20 sources) Start: 11-06-2024 End: 12-09-2024 take 1 tablet by mouth at bedtime busPIRone (Buspar) 10 MG tablet Indications: LUISITO (generalized anxiety disorder) (CMS/HCC) TAKE 1 TABLET (10 MG) BY MOUTH IN THE MORNING AND BEFORE BEDTIME 180 tablet 3 11/06/2024 12/09/2024 Discontinued Start: 03-17-2023 End: 06-04-2024 take 1 tablet by mouth in the morning busPIRone (Buspar) 10 MG tablet Indications: LUISITO (generalized anxiety disorder) (CMS/HCC) Take 1 tablet (10 mg) by mouth in the morning and 1 tablet (10 mg) before bedtime. 04/06/2024 Active Comment on above: TAKE 1 TABLET (10 MG ) BY MOUTH IN THE MORNING AND BEFORE BEDTIME carvedilol 25 mg oral tablet (20 sources) alpha-Adrenergic Clover, beta-Adrenergic Clover Start: 2 End: take 1 tablet by mouth twice daily carvedilol (COREG) 25 mg tablet Take 1 tablet by mouth two times a day. 0 08/18/2021 12/06/2023 Discontinued Comment on above: Take 1 tablet by rosita two times a day. chlorhexidine gluconate 40 mg/ml medicated liquid soap (10 sources) Start: 4 End: 4 Chlorhexidine Gluconate 4 % solution Indications: Hidradenitis suppurativa of right axilla Apply topically as needed, 30 days 118 mL 1 01/29/2024 02/20/2024 Discontinued Start: 05-23-2023 Hibiclens 4 % external liquid Indications: Hidradenitis suppurativa of right axilla Apply topically Daily as needed for wound care. 236 mL 1 05/23/2023 Active clonazePAM 0.5 mg oral tablet (20 sources) Benzodiazepine Start: 08-25-2024 End: 04-20-2025 clonazePAM (KlonoPIN) 0.5 MG tablet Indications: Anxiety Take 1 tablet (0.5 mg) by mouth 3 (three) times a day as needed for anxiety (q8hrs) 28 tablet 03/08/2025 04/20/2025 Discontinued Start: 11-20-2023 End: 05-19-2024 take 1 tablet by mouth every twelve hours for anxiety and anxiety clonazePAM (KlonoPIN) 0.5 MG tablet Indications: Anxiety Take 1 tablet (0.5 mg) by mouth every 12 (twelve) hours for 14 days 28 tablet 02/26/2024 Active Start: 07-12-2023 take 1 tablet by rosita [...] pm and draw blood the next day gabapentin 400 mg oral capsule (20 sources) Anti-epileptic Agent Start: 12-21-2024 End: 12-21-2025 take 1 capsule by mouth in the morning gabapentin (Neurontin) 400 MG capsule Indications: Neuropathy TAKE 1 CAPSULE BY MOUTH IN THE MORNING AND 1 CAPSULE BEFORE BEDTIME. 60 capsule 1 03/08/2025 04/20/2025 Discontinued (Reorder) Start: 05-20-2022 End: 02-20-2024 take 1 capsule by mouth in the morning gabapentin (Neurontin) 400 MG capsule Indications: Neuropathy Take 1 capsule (400 mg) by mouth in the morning and 1 capsule (400 mg) before bedtime. 60 capsule 2 11/20/2023 02/20/2024 Discontinued Comment on above: 1 capsule. hydrALAZINE hydrochloride 100 mg oral tablet (20 sources) Arteriolar Vasodilator Start: End: take 1 tablet by mouth twice daily [...] by rosita th two times a day. ammonium lactate 120 mg/ml topical cream (20 sources) Start: 08-25-2024 End: 04-20-2025 ammonium lactate (Amlactin) 12 % cream Indications: Rash Apply topically if needed for dry skin 140 g 1 08/25/2024 04/20/2025 Discontinued lamoTRIgine 25 mg oral tablet (20 sources) Mood Stabilizer, Anti-epileptic Agent Start: 10-30-2023 End: 02-13-2024 take 1 tablet by mouth in the morning lamoTRIgine (LaMICtal) 25 MG tablet Indications: Bipolar disorder in partial remission, most recent episode unspecified type (CMS/HCC) Take 1 tablet (25 mg) by mouth in the morning and 1 tablet (25 mg) before bedtime. 180 tablet 10/30/2023 02/13/2024 Discontinued (Med list cleanup) Start: 05-21-2022 End: 11-07-2023 lamoTRIgine (LAMICTAL) 150 m g tablet Take 150 mg by mouth. 05/21/2022 Active Comment on above: Take 150 mg by mouth . lurasidone hydrochloride 40 mg oral tablet (20 sources) Atypical Antipsychotic Start: 12-10-19 End: 01-28-20 take 1 tablet by mouth at mealtime lurasidone (Latuda) 40 MG tablet Indications: Bipolar affective disorder, currently depressed, mild (HCC) Take 1 tablet (40 mg) by mouth in the evening. Take with meals 30 tablet 2 12/09/2024 01/27/2025 Discontinued (Therapy completed) Start: 07-13-2024 End: 08-11-2024 take 1 tablet by mouth at mealtime lurasidone (Latuda) 80 MG tablet Indications: Bipolar affective disorder, currently depressed, mild (CMS/HCC) Take 1 tablet (80 mg) by mouth in the evening. Take with meals 90 tablet 1 07/13/2024 08/11/2024 Discontinued (Med list cleanup) Start: 06-17-2024 End: 07-13-2024 take 1 tablet by mouth at mealtime lurasidone (Latuda) 40 MG tablet Indications: Bipolar affective disorder, currently depressed, mild (CMS/HCC) Take 1 tablet (40 mg) by mouth in the evening. Take with meals 90 tablet 1 06/17/2024 07/13/2024 Discontinued (Reorder) Start: 05-07-2024 End: 05-19-2024 take 1 tablet by mouth at mealtime lurasidone (Latuda) 40 MG tablet Indications: Bipolar affective disorder, currently depressed, mild (CMS/HCC) Take 1 tablet (40 mg) by mouth in the evening. Take with meals 90 tablet 3 05/07/2024 05/19/2024 Discontinued Start: 10-30-2023 End: 02-13-2024 take 1 tablet by mouth at mealtime lurasidone (Latuda) 40 MG tablet Indications: Bipolar disorder in partial remission, most recent episode unspecified type (CMS/HCC) Take 1 tablet (40 mg) by mouth in the evening. Take with meals 90 tablet 1 10/30/2023 02/13/2024 Discontinued Start: 07-20-2022 End: 11-27-2023 lurasidone (LATUDA) 60 mg ta b tablet Take 60 mg by mouth. 07/20/2022 Active Comment on above: Take 60 mg by mouth. magnesium oxide 400 mg oral tablet (17 sources) Start: 09-12-2023 End: 12-13-2023 take 1 tablet by mouth once daily in the morning magnesium oxide (MAG-OX) 400 mg (241.3 mg magnesium) tablet Take 1 tablet by mouth every morning. 0 09/12/2023 12/13/2023 Discontinued Start: 07-12-2023 End: 02-20-2024 take 1 capsule by mouth in the morning Magnesium Oxide -Mg Supplement (Magnesium Extra Strength) 400 MG capsule Indications: Hypomagnesemia Take 1 capsule by mouth in the morning. 30 capsule 5 07/12/2023 02/20/2024 Discontinued take 1 tablet by rosita th every [...] on above: Take 1 capsule by mo ut twice daily. mirtazapine 15 mg oral tablet (20 sources) Start: 01-27-2025 End: 04-20-2025 take 1 tablet by mouth at bedtime mirtazapine (Remeron) 15 MG tablet Indications: Bipolar affective disorder, currently depressed, mild (HCC) Take 1 tablet (15 mg) by mouth at bedtime 90 tablet 1 01/27/2025 04/20/2025 Discontinued Multiple Vitamin (Multi Vitamin) tablet (10 sources) End: 02-26-2024 Multiple Vitamin (Multi Vitamin) tablet 1 (one) time each day at the same time. 02/26/2024 Discontinued Multiple Vitamin (Multi Vitamin) tablet 1 (one) time each day at the same time. 0 Active multivitamin () 27-0.8 MG tablet (10 sources) Start: 05-28-2024 End: 06-17-2024 take 1 tablet by mouth once daily multivitamin () 27-0.8 MG tablet Indications: , unspecified gestational age Take 1 tablet by mouth Daily 90 tablet 2 05/28/2024 06/17/2024 Discontinued Start: 05-28-2024 take 1 tablet by rosita th once daily multivitamin () 27-0.8 MG tablet Indications: , unspecified gestational age Take 1 tablet by mouth Daily 90 tablet 2 05/28/2024 Active Natazia 3/2-2/2-3/1 MG Oral Tablet (2 sources) Start: 09-27-2021 take 1 tablet by mouth once daily Natazia 3/2-2/2-3/1 MG Oral Tablet TAKE 1 TABLET BY MOUTH EVERY DAY CONTINUOUSLY Quantity: 28 Refills: 0 Ordered: 29-May-2022 DO Start : 27-Sep-2021 Active omeprazole 40 mg delayed release oral capsule (20 sources) Proton Pump Inhibitor Start: 06-17-2024 End: 04-20-2025 take 1 capsule by mouth in the morning omeprazole (PriLOSEC) [address] capsule Indications: Anastomotic ulcer Take 1 capsule (40 mg) by mouth in the morning and 1 capsule (40 mg) in the evening. Take before meals. Do not crush or chew.. 180 capsule 1 11/05/2024 04/20/2025 Discontinued (Reorder) Start: 03-19-2024 End: 06-04-2024 take 1 capsule by mouth twice daily omeprazole 40 mg Cap-DR 40 mg = 1 cap(s), Oral, BID, # 90 cap(s), Refills(s) 3, Pharmacy: [facility]/pharmacy #[id number], 169, cm, 03/19/24 14:00:00 EDT, Height/Length Dosing, 76, kg, 03/19/24 14:00:00 EDT, Weight Dosing Start Date: 03/19/24 Status: Ordered oseltamivir 75 mg oral capsule (4 sources) Neuraminidase Inhibitor Start: 09-14-2024 End: 09-19-2024 take 1 capsule by mouth in the morning oseltamivir (Tamiflu) 75 MG capsule Indications: Influenza A Take 1 capsule (75 mg) by mouth in the morning and 1 capsule (75 mg) before bedtime. Do all this for 5 days. 10 capsule 09/14/2024 09/19/2024 polyethylene glycol 3350 [id number] mg powder for oral solution (20 sources) Osmotic Laxative Start: 06-17-2024 End: 12-09-2024 take 17 g by mouth every twenty-four hours as needed for constipation and constipation polyethylene glycol, PEG, 3350 (MiraLax) 17 GM/SCOOP powder Indications: Constipation, unspecified constipation type Take 17 g by mouth Daily as needed (constipation) 527 g 11 11/05/2024 12/09/2024 Discontinued Start: 05-07-2024 End: 06-04-2024 polyethylene glycol, PEG, 33 50 (Glycolax) 17 GM/SCOOP powder Indications: Irritable bowel syndrome with both constipation and diarrhea Take 17 g by mouth Daily 850 g 3 05/07/2024 06/04/2024 Discontinued Start: 02-21-2024 End: 05-07-2024 polyethylene glycol, PEG, 33 50 (Glycolax) 17 GM/SCOOP powder MIX 17GM IN 4 TO 8 OZ OF HOT/COLD/ROOM TEMP BEVERAGE AND DRINK IMMEDIATELY TWICE DAILY NEEDED 02/21/2024 Active predniSONE 10 mg oral tablet (2 sources) Start: 09-14-2024 End: 09-14-2024 take 1 tablet by mouth three times daily at mealtime predniSONE (Deltasone) 10 MG tablet Indications: Viral URI with cough 1 po tid with food x 4 days 12 tablet 09/14/2024 09/14/2024 Discontinued (Alternate therapy) propranolol hydrochloride 40 mg oral tablet (1 [...] once daily. spironolactone 25 mg oral tablet (20 sources) Aldosterone Antagonist Start: 02-04-20 End: 02-04-20 take 0.5 tablet by mouth once daily spironolactone (ALDACTONE) 25 mg tablet Take 0.5 tablets by mouth once daily. 45 tablet 2 02/04/2024 02/04/2024 Discontinued Start: 12-11-2023 End: 09-06-2024 take 1 tablet by mouth in the morning spironolactone (Aldactone) 50 MG tablet Take 50 mg by mouth in the morning and 50 mg in the evening. 12/11/2023 02/26/2024 Discontinued Start: 11-20-2023 End: 12-11-2023 take 1 tablet [...] Serotonin-1b and Serotonin-1d Receptor Agonist Start: 08-12-2023 End: 02-20-2024 SUMAtriptan (Imitrex) 100 MG tablet Indications: Migraine with aura and without status migrainosus, not intractable (CMS/HCC) TAKE 1 TAB AT MIGRAINE ONSET, MAY REPEAT IN 2 HOURS NEEDED, MAX 2 TABS IN 24 HOURS 9 tablet 3 01/01/2024 02/20/2024 Discontinued Comment on above: TAKE 1 TAB AT [...] mg by mouth d aily at bedtime. vitamin b6 50 mg oral tablet (10 sources) Start: 05-28-2024 End: 05-28-2025 take 1 tablet by mouth once daily pyridoxine (Vitamin B-6) 50 MG tablet Indications: Nausea and vomiting, unspecified vomiting type Take 1 tablet (50 mg) by mouth Daily 90 tablet 3 05/28/2024 06/17/2024 Discontinued zolpidem tartrate 10 mg oral tablet (20 sources) gamma-Aminobutyric Acid-ergic Agonist Start: 06-17-2024 End: 05-20-2025 zolpidem (Ambien) 10 MG tablet Indications: Primary insomnia Take 1 tablet (10 mg) by mouth as needed at bedtime for sleep 30 tablet 03/08/2025 04/20/2025 Discontinued (Reorder) Start: 01-29-2024 End: 05-22-2024 zolpidem (Ambien) 10 MG tabl et Indications: Primary insomnia Take 1 tablet (10 mg) by mouth as needed at bedtime for sleep 30 tablet 03/25/2024 04/22/2024 Discontinued (Reorder) Start: 08-19-2023 End: 09-18-2023 zolpidem (AMBIEN) 10 mg 08/05 Active Problems Active Problems Problem Classification Problem Date Documented Date Episodic/Chronic Acquired foot deformities (2 sources) Hammer toe; Translations: [Other hammer toe(s) (acquired), right foot] 01-20-2025 Chronic Acquired foot deformities (6 sources) Bilateral Tailor's bunion of feet; Translations: [Bunionette of right foot] 02-22-2025 Episodic Acute bronchitis (2 sources) Acute bronchitis; Translations: [Acute bronchitis, unspecified] 09-13-2023 Episodic Administrative/social admission (5 sources) Encounter for blood-alcohol and blood-drug test; Translations: [Patient encounter status] Onset: 3 Episodic Anxiety disorders (20 sources) Generalized anxiety [...] block, first degree] Onset: 3 02-21-2023 Chronic Deficiency and other anemia (7 sources) Iron deficiency anemia; Translations: [Iron deficiency anemia, unspecified] 12-30-2024 Episodic Diabetes mellitus with complications (1 source) Polyneuropathy due to type 2 diabetes mellitus; Translations: [Type 2 diabetes mellitus with diabetic polyneuropathy] 08-29-2024 Chronic Diabetes mellitus without complication (20 sources) Diabetes mellitus; Translations: [Type 2 diabetes mellitus without complications] Onset: 3 02-21-2023 Chronic Esophageal disorders (20 sources) Gastroesophageal reflux disease; Translations: [Gastro-esophageal reflux disease without esophagitis] Onset: 9 02-21-2023 Chronic Essential hypertension (20 sources) Benign essential hypertension; Translations: [Benign essential hypertension] Onset: 8 Resolved: 3 05-03-2017 Chronic Gastroduodenal ulcer (except hemorrhage) (6 sources) Ulcer of anastomosis; Translations: [Gastrojejunal ulcer, unspecified as acute or chronic, without hemorrhage or perforation] 05-07-2024 Chronic Headache; including migraine (20 sources) Migraine with aura; Translations: [Migraine with aura, not intractable, without status migrainosus] Onset: 3 Resolved: 3 02-21-2023 Chronic Hemorrhage during ; abruptio placenta; placenta previa (1 source) Bleeding from female genital tract during ; Translations: [Antepartum hemorrhage, unspecified, unspecified trimester] 06-09-2024 Episodic Hypertension with complications and secondary hypertension (1 source) Hypertension secondary to endocrine disorder; Translations: [Hypertension secondary to endocrine disorders] 12-11-2023 Chronic Influenza (2 sources) Influenza due to Influenza A virus; Translations: [Influenza due to other identified influenza virus with other respiratory manifestations] 09-14-2024 Episodic Joint disorders and dislocations; trauma-related (20 sources) [...] Psychology Medication Management and changes being made Nausea and vomiting (20 sources) Nausea; Translations: [Nausea] Onset: 4 05-03-2017 Episodic Neoplasms of unspecified nature or uncertain behavior (4 sources) Neoplasm of brain 03-19-2024 Chronic Osteoarthritis (20 sources) Osteoarthritis of left knee joint; Translations: [Unilateral primary osteoarthritis, left knee] Onset: 3 02-21-2023 Chronic Other connective tissue disease (8 sources) Pain in both feet; Translations: [Pain in right foot] 01-20-2025 Episodic Other endocrine disorders (20 sources) Polycystic ovary [...] unspecified] Onset: 4 Episodic Other gastrointestinal disorders (2 sources) Constipation; Translations: [Constipation, unspecified] 06-17-2024 Episodic Other lower respiratory disease (2 sources) Cough; Translations: [Acute cough] 09-14-2024 Episodic Other nervous system disorders (20 sources) [...] 02-21-2023 Chronic Other and delivery including normal (5 sources) ; Translations: [Encounter for supervision of normal , unspecified, unspecified trimester] 05-19-2024 Episodic Other skin disorders (1 source) Eruption; Translations: [Rash and other nonspecific skin eruption] 08-25-2024 Episodic Other skin disorders (8 sources) Callosity; Translations: [Corns and callosities] 01-20-2025 Episodic Other upper respiratory disease (20 sources) Seasonal allergic rhinitis; Translations: [Other seasonal allergic rhinitis] Onset: 1 02-21-2023 Chronic Other upper respiratory infections (20 sources) Sinusitis; Translations: [Chronic sinusitis, unspecified] Onset: 8 02-21-2023 Chronic Other upper respiratory infections (4 sources) Pharyngitis; Translations: [Acute pharyngitis, unspecified] 05-24-2024 Episodic Residual codes; unclassified (1 source) Tobacco use; Translations: [TOBACCO USE] Onset: 3 Episodic Residual codes; unclassified (1 source) Tobacco user 09-10-2024 Episodic Screening and history of mental health and substance abuse codes (2 sources) Ex-smoker; Translations: [Personal history of tobacco use] Episodic Comment on above: quit 2021; Spontaneous (1 source) Miscarriage; Translations: [Complete or unspecified spontaneous without complication] 06-09-2024 Episodic Substance-related disorders (20 sources) Cannabis abuse; Translations: [Cannabis abuse, uncomplicated] Onset: 9 02-21-2023 Chronic Unclassified (2 sources) Consult; Translations: [Consult] Onset: 3 Unclassified (1 source) CONTACT W/AND (SUSP) EXPOS COVID-19; Translations: [CONTACT W/AND (SUSP) EXPOS COVID-19] Onset: 3 Unclassified (4 sources) Bipolar (qualifier value) 03-19-2024 Unclassified (4 sources) History of bypass of stomach 03-19-2024 Viral infection (2 sources) Viral disease; Translations: [Viral infection, unspecified] 05-24-2024 Episodic Past or Other Problems Problem Classification Problem Date Documented Da te Episodic/Chronic Abdominal pain (20 sources) Abdominal pain; Translations: [Unspecified abdominal pain] Onset: 4 02-21-2024 Episodic Deficiency and other anemia (20 sources) Microcytic anemia; Translations: [Iron deficiency anemia, unspecified] Onset: 0 02-21-2023 Episodic Fluid and electrolyte disorders (20 sources) Hypokalemia; Translations: [Alkalosis] Onset: 3 Episodic Headache; including migraine (20 sources) Generalized headache; Translations: [Generalized headache] Onset: 8 02-21-2023 Episodic Mood disorders (20 sources) Mood disorders Onset: 5 01-27-2025 Mycoses (1 source) Candidiasis of vagina; Translations: [Vaginal astrid] 03-25-2024 Episodic Nutritional deficiencies (20 sources) Iron deficiency; Translations: [Iron deficiency] Onset: 0 02-02-2020 Episodic Other aftercare (1 source) Other superintendent terminal (current) drug therapy; Translations: [OTH CARE HOME CURRENT DRUG THERAPY] Onset: 3 Episodic Other and unspecified benign neoplasm (20 sources) Adenoma of left adrenal gland; Translations: [Benign neoplasm of left adrenal gland] Onset: 4 08-20-2023 Episodic Other and unspecified benign neoplasm (1 source) Benign neoplasm of left adrenal gland; Translations: [Adenoma of left adrenal gland] Onset: 4 Episodic Other connective tissue disease (20 sources) Plantar fasciitis; Translations: [Plantar fascial fibromatosis] Onset: 7 02-21-2023 Episodic Other ear and sense organ disorders (20 sources) Otalgia, right ear; Translations: [Otalgia, unspecified] Onset: 9 Resolved: 3 02-21-2023 Episodic Other gastrointestinal disorders (20 sources) Diarrhea; Translations: [Diarrhea, unspecified] Onset: 4 05-03-2017 Episodic Other gastrointestinal disorders (20 sources) History of bariatric surgical procedure; Translations: [Bariatric surgery status] Onset: 4 12-06-2023 Episodic Other gastrointestinal disorders (2 sources) Bariatric surgery status; Translations: [Bariatric surgery status] Onset: 4 Episodic Other gastrointestinal disorders (4 sources) Adrenal mass Onset: 4 03-19-2024 Episodic Other gastrointestinal disorders (20 sources) History of bypass of stomach; Translations: [Bariatric surgery status] Onset: 4 05-06-2024 Episodic Other nutritional; endocrine; and metabolic disorders (20 sources) Excessive eating - polyphagia; Translations: [Polyphagia] Onset: 1 Resolved: 3 02-21-2023 Episodic Other nutritional; endocrine; and metabolic disorders (20 sources) H/O: metabolic disorder; Translations: [Personal history of other endocrine, nutritional and metabolic disease] Onset: 4 01-20-2024 Episodic Other screening for suspected conditions (not mental disorders or infectious disease) (20 sources) Electrocardiogram abnormal; Translations: [Abnormal electrocardiogram [ECG] [EKG]] Onset: 2 Resolved: 3 02-21-2023 Episodic Other skin disorders (20 sources) Axillary hidradenitis suppurativa; Translations: [Hidradenitis suppurativa] Onset: 3 10-27-2012 Episodic Other skin disorders (20 sources) Comedone; Translations: [Acne vulgaris] Onset: 3 Resolved: 3 10-27-2012 Episodic Other skin disorders (20 sources) Alopecia totalis; Translations: [Alopecia (capitis) totalis] Onset: 7 Resolved: 3 02-21-2023 Episodic Other skin disorders (20 sources) Ingrowing nail; Translations: [Ingrowing nail] Onset: 2 Resolved: 3 02-21-2023 Episodic Residual codes; unclassified (20 sources) Obstructive sleep apnea syndrome; Translations: [Obstructive sleep apnea (adult) (pediatric)] Onset: 4 Resolved: 5 03-19-2024 Chronic Residual codes; unclassified (20 sources) Insomnia; Translations: [Insomnia, unspecified] Onset: 0 Resolved: 4 02-21-2023 Episodic Residual codes; unclassified (20 sources) Tobacco use and exposure - finding; Translations: [Tobacco use] Onset: 4 01-20-2024 Episodic Thyroid disorders (20 sources) Goiter; Translations: [Iodine-deficiency related diffuse (endemic) goiter] Onset: 9 Resolved: 4 02-21-2023 Chronic Results Test Name Value Interpretation Reference Range Facility Ambulatory Visit Summaryon 0 09-11-2024 Ambulatory Visit Summary Ambulatory Visit Summary HEIDI JOY :1990 Visit Date:09/11/2024 Ambulatory Visit Instructions Your Diagnosis RUQ pain Irritable bowel syndrome with diarrhea Your Care Team Attending Physician - Kvng Marie MD Primary Care Physician - ELIOT GARCÍA DO This Is Your Medications List Contact prescribing physician if questions or concerns famotidine (Pepcid 40 mg Tab) Procedures Performed EGD (esophagogastroduodenoscop ic) electrohydraulic lithotripsy of bezoar in stomach (03/24/2024), 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 Discharge Vitals Heart Rate (Peripheral) 62 Respiratory Rate 14 Blood Pressure 127/81 Height 169 cm Height 67 in Weight 84 kg Weight 185.188 lb BMI 29.41 Medications What How Much When Instructions Unchanged famotidine (Pepcid 40 mg Tab) 1 Tablets By Mouth 2 times a day Contact prescribing physician if questions or concerns Allergies No Known Medication Allergies Problems Ongoing [...] choosing us for your care. Yvonne Majano [facility] Gastroenterology Office/Clin ic Noteon 09-11-2024 Gastroenterology Office/Clinic Note Gastroenterology Office/Clinic Note Chief Complaint follow up to EGD HPI Staff Established patient is a(n) 34 year old female who presents today for a follow up to EGD on 07/21/24. Any epigastric pain? No. Still taking Omeprazole and Pepcid 40mg BID? Effective? Takes the pepcid here and there. Any blood thinners? no Any GLP-1 agonists? no Last visit 05/04/24 w/Dr. Marie: Assessment/Plan 1. RUQ pain (R10.11: Right upper [...] (K58.0: Irritable bowel syndrome with diarrhea) Controlled EGD: 1. Normal esophagus, Z-line was noted at 35 cm. 2. Evidence of previous surgery in the stomach with Fredrick-en-Y anatomy, granulation tissue slightly friable at the gastrojejunal anastomosis, improved from before, previously seen ulcer healed. 3. Normal examined jejunum History of Present Illness Reviewed HPI collected by staff Review of Systems PHQ Score Initial Depression Screen Score: 0 SCORE All systems reviewed, negative; Except for above Physical Exam Vitals & Measurements HR: 62(Peripheral) RR: 14 BP: 127/81 HT: 67 in HT: 169 cm WT: 84 kg WT: 185.188 lb BMI: 29.41 General: in Nad Abdomen: Soft, NTND Assessment/Plan 1. RUQ pain (R10.11: Right upper quadrant pain) She had mostly epigastric pain due to anastomotic ulcer, large, she had a benign polypoid lesion as well likely inflammatory with granulation tissue EGD 07/28 showed slightly friable at the gastrojejunal anastomosis, improved from before, previously seen ulcer healed Taking Pepcid occasionally Pain resolved 2. Irritable bowel syndrome with diarrhea (K58.0: Irritable bowel syndrome with diarrhea) Controlled I, Rea Rider, personally scribed for Kvng Marie on 09/11/2024 10:05:28. . Documentation recorded by Jessica Rider, accurately reflects the services I performed and decisions made by me. Kvng Marie MD Follow-up No qualifying data available Problem List/Past [...] bypass (12/03/2022), Brain tumor, Plantar fascia. Medications Pepcid 40 mg Tab, 40 mg= 1 tab(s), Oral, BID, 3 refills Allergies No Known Medication Allergies Social History Tobacco 10 or more cigarettes (1/2 pack or more)/day in last 30 days Tobacco Use:., 09/11/2024 10 or more cigarettes (1/2 pack or more)/day in last 30 days Tobacco Use:., 09/10/2024 Family History Family history is negative Immunizations Vaccine Date Status Comments influenza virus vaccine, inactivated - Not Given Patient Refuses influenza virus vaccine, inactivated - Not Given Patient Refuses Normal [facility] Comment on above: Result Comment: Elec tronically Signed By: Frank URIBE, Kvng Duran\.br\Date and Time Signed: 09/11/24 10:17 EST\.br\Electronically Co-Signed By: Rea Rider MA\.br\Date and Time Co-Signed: 09/11/24 10:10 EST Laboratory - Microbiology an d Antimicrobial susceptibilityOrdered By: Heidi Chiu on 05-24-2024 SARS-CoV-2 (COVID-19) RNA DARWIN+probe Ql (Unsp spec) Negative [facility] No Panel InformationOrdered By: Heidi Chiu on 05-24-2024 FLU A Negative [facility] FLU B Negative [facility] Interpretation and review of laboratory results Normal [facility] HCG ( test) Ql (U)o n 05-19-2024 Interpretation and review of laboratory results Abnormal [facility] Preg Test, Ur Positive [facility] [...] choosing us for your care. Yvonne Majano [facility] Gastroenterology Office/Clin ic Noteon 05-04-2024 Gastroenterology [...] backed up) had Fredrick en y at [facility], had CT with iv contrast, reports it [...] inactivated - Not Given Patient Refuses Normal [facility] Comment on above: Result Comment: Elec tronically Signed By: Frank URIBE, Kvng Duran\.brenda\Date and Time Signed: 05/04/24 09:41 EDT Aldost Pamelal-mCncon 04-10-20 Aldosterone [Mass/Vol] 3.4 ng/dL Normal 0.0-<35.4 [facility] Comment on above: Order Comment: Speci men Type: BLOOD SPECIMENOrdering Facility: [facility] Address: [address], [place] [id number] Result Comment: The reference interval for serum/plasma [...] 15 ng/dL. Performed By: #### 1 [id number] ####[facility] LABCLIA [id number] [facility] [id number] [place] [address] [place] [facility] RENAL FUNC 2000 PNL SERP Delta 04-10-2024 Albumin [Mass/Vol] 4.2 g/dL 3.9 - 4.9 g/dL [facility] Anion gap [Moles/Vol] 9 mmol/L 8 - 15 mmol/L [facility] Calcium [Mass/Vol] 8.8 mg/dL 8.5 - 10. 2 mg/dL [facility] PHOSPHATE SERPL-MCNC 3.9 mg/dL 2.7 - 4.8 mg/dL [facility] Chloride [Moles/Vol] 111 mmol/L High 98 - 10 7 mmol/L [facility] CO2 [Moles/Vol] 18 mmol/L Low 22 - 30 mmol/L [facility] Creatinine [Mass/Vol] 0.98 mg/dL High 0.58 - 0.96 mg/dL [facility] GFR/1.73 sq M.predicted CKD-EPI (S/P/Bld) [Vol rate/Area] 79 - PINF [facility] Comment on above: Estimated Glomerular Filtration Rate [...] not accurately reflect actual GFR. Glucose [Mass/Vol] 142 mg/dL High 74 - 99 mg/dL [facility] Comment on above: The [place] Diabete s Association (ADA) provides guidance for [...] Standards of Medical Care in Diabetes 2016, [place] Diabetes Association. Diabetes Care. 2016.39(Suppl 1). Interpretation and review of laboratory results Abnormal [facility] Potassium [Moles/Vol] 4.3 mmol/L 3.7 - 5.1 mmol/L [facility] Sodium [Moles/Vol] 138 mmol/L 136 - 144 mmol/L [facility] Urea nitrogen [Mass/Vol] 33 mg/dL High 7 - 21 mg/dL [facility] Specimen Type: BLOOD SPECIMEN Ordering Facility: [facility] Address: [address] [place] [address] Original Ordering Provider: VIKKI LUO [facility] CNOVon 04-10-2024 CNOV Normal [facility] CORTISOL, 30 MINon 4 Cortisol 30 Min post Unsp challenge [Mass/Vol] 19.7 ug/dL Normal [facility] Comment on above: Order Comment: Speci men Type: BLOOD SPECIMENOrdering Facility: [facility] Address: [address] [place] [address] Performed By: #### C [id number] ####[facility] LABCLIA [id number] [place] [address] [place] CORTISOL, 60 MINon 4 Cortisol 1 Hr post Unsp challenge [Mass/Vol] 23.7 ug/dL Normal [facility] Comment on above: Order Comment: Speci men Type: BLOOD SPECIMENOrdering Facility: [facility] Address: [address] [place] [address] Performed By: #### C [id number] ####[facility] LABCLIA [id number] [place] [address] [place] INTERPRETATION (ACTHST) Normal C [facility] Comment on above: Order Comment: Speci men Type: BLOOD SPECIMENOrdering Facility: [facility] Address: [address] [place] [address] Result Comment: Afte r cortrosyn stimulation, a peak cortisol response greater than 12.6 ug/dL may indicate appropriate cortisol secretion. This result should be interpreted within the clinical context and other test results.Yannick et al. Clinical Implications for Biochemical Diagnostic Thresholds of Adrenal Sufficiency Using a Highly Specific Cortisol Immunoassay. 2017 Clin. Biochem. 50:475-480. Performed By: #### C ORS60M ####[facility] LABIA [id number] [place] [address] [place] CORTISOL, BASALon 04-10-2024 Cortisol baseline [Mass/Vol] 12.4 ug/dL Normal 4.8-19.5 [facility] Comment on above: Order Comment: Speci men Type: BLOOD SPECIMENOrdering Facility: [facility] Address: [address] [place] [address] Result Comment: Prov ided reference range is from 6-10 AM sample collection time.Cortisol Reference Range: 6-10 AM = 4.8-19.5 ug/dL, 4-8 PM = 2.5-11.9 ug/dL Performed By: #### C ORTBAS ####[facility] LABIA [id number] [place] [address] [place] DIRECT RENIN PLASMAon 2023 DIRECT RENIN 21.1 pg/mL Normal 4.2-52.2 [facility] Comment on above: Order Comment: Speci men Type: BLOOD SPECIMENOrdering Facility: [facility] Address: [address] [place] [address] Result Comment: A ra yue of aldosterone [...] 2.5-45.1 pg/mL Performed By: #### R ENIND ####[facility] LABCLIA [id number] [address] LABCLIA [id number] [address] PATIENT UPRIGHT OR SUPINE Upright Normal [facility] Comment on above: Order Comment: Speci men Type: BLOOD SPECIMENOrdering Facility: [facility] Address: [address] [place] [address] Performed By: #### R ENIND ####[facility] LABCLIA [id number] [address] LABCLIA [id number] [address] [facility] Magnesium [facility] 04-10 Magnesium [Mass/Vol] 1.9 mg/dL Normal 1.7-2.3 [facility] Comment on above: Order Comment: Speci men Type: BLOOD SPECIMENOrdering Facility: [facility] Address: [address] [place] [address] Performed By: #### 2 4362-6, ####[facility] LABCLIA [id number] [place] [address] [address] [place], [place] [address]on 04-10-2024 Albumin [Mass/Vol] 4.4 g/dL Normal 3.9-4.9 [facility] Comment on above: Order Comment: Speci men Type: BLOOD SPECIMENOrdering Facility: [facility] Address: [address] [place] [address] Performed By: #### 2 4362-6, ####[facility] LABCLIA [id number] [place] [address] Anion gap [Moles/Vol] 10 mmol/L Normal 8-15 [facility] Comment on above: Order Comment: Speci men Type: BLOOD SPECIMENOrdering Facility: [facility] Address: [address] [place] [address] Performed By: #### 2 4362-6, ####[facility] LABCLIA [id number] [place] [address] Calcium [Mass/Vol] 9.0 mg/dL Normal 8.5-10.2 [facility] Comment on above: Order Comment: Speci men Type: BLOOD SPECIMENOrdering Facility: [facility] Address: [address] [place] [address] Performed By: #### 2 4362-6, ####URI [facility] LABCLIA [id number] [place] [address] Chloride [Moles/Vol] 106 mmol/L Normal 98-107 [facility] Comment on above: Order Comment: Speci men Type: BLOOD SPECIMENOrdering Facility: [facility] Address: [address] [place] [address] Performed By: #### 2 4362-6, ####FABIANNJLOBITO [facility] LABCLIA [id number] [place] [address] CO2 [Moles/Vol] 20 mmol/L Low 22-30 [facility] Comment on above: Order Comment: Speci men Type: BLOOD SPECIMENOrdering Facility: [facility] Address: [address] [place] [address] Performed By: #### 2 4362-6, ####[facility] LABCLIA [id number] [place] [address] Creatinine [Mass/Vol] 1.00 mg/dL High 0.58-0.96 [facility] Comment on above: Order Comment: Speci men Type: BLOOD SPECIMENOrdering Facility: [facility] Address: [address] [place] [address] Performed By: #### 2 4362-6, ####[facility] LABCLIA [id number] [place] [address] Creatinine and Glomerular filtration rate.predicted panel (S/P/Bld) 77 mL/min/1.73m??? Normal >=60 [facility] Comment on above: Order Comment: Peter myles Type: BLOOD SPECIMENOrdering Facility: [facility] Address: [address] [place] [address] Result Comment: Rachel mated Glomerular Filtration Rate [...] actual GFR. Performed By: #### 2 4362-6, ####[facility] LABCLIA [id number] [place] [address] Glucose [Mass/Vol] 185 mg/dL High 74-99 [facility] Comment on above: Order Comment: Peter myles Type: BLOOD SPECIMENOrdering Facility: [facility] Address: [address] [place] [address] Result Comment: The [place] Diabetes Association (ADA) provides guidance for cutoff [...] Standards of Medical Care in Diabetes 2016, [place] Diabetes Association. Diabetes Care. 2016.39(Suppl 1). Performed By: #### 2 4362-6, ####[facility] LABCLIA [id number] [place] [address] Phosphate [Mass/Vol] 3.4 mg/dL Normal 2.7-4.8 [facility] Comment on above: Order Comment: Speci men Type: BLOOD SPECIMENOrdering Facility: [facility] Address: [address] [place] [address] Performed By: #### 2 436-6, ####[facility] LABCLIA [id number] [place] [address] Potassium [Moles/Vol] 4.5 mmol/L Normal 3.7-5.1 [facility] Comment on above: Order Comment: Speci men Type: BLOOD SPECIMENOrdering Facility: [facility] Address: [address] [place] [address] Performed By: #### 2 43609-10, ####[facility] LABCLIA [id number] [place] [address] Sodium [Moles/Vol] 136 mmol/L Normal 136-144 [facility] Comment on above: Order Comment: Speci men Type: BLOOD SPECIMENOrdering Facility: [facility] Address: [address] [place], [place] [address] Performed By: #### 2 4362-6, ####[facility] LABCLIA [id number] [place] [address] Urea nitrogen [Mass/Vol] 37 mg/dL High 7-21 [facility] Comment on above: Order Comment: Speci men Type: BLOOD SPECIMENOrdering Facility: [facility] Address: [address] [place], [place] [address] Performed By: #### 2 436-6, ####[facility] LABCLIA [id number] [place] [address] Albumin [Mass/Vol] 4.2 g/dL Normal 3.9-4.9 [facility] Comment on above: Order Comment: Speci men Type: BLOOD SPECIMENOrdering Facility: [facility] Address: [address] [place] [address] Performed By: #### 2 4362-6 ####[facility] LABCLIA [id number] [place] [address] [place] Anion gap [Moles/Vol] 9 mmol/L Normal 8-15 [facility] Comment on above: Order Comment: Speci men Type: BLOOD SPECIMENOrdering Facility: [facility] Address: [address] [place] [address] Performed By: #### 2 4362-6 ####[facility] LABCLIA [id number] [place] [address] [place] Calcium [Mass/Vol] 8.8 mg/dL Normal 8.5-10.2 [facility] Comment on above: Order Comment: Speci men Type: BLOOD SPECIMENOrdering Facility: [facility] Address: [address] [place] [address] Performed By: #### 2 4362-6 ####[facility] LABCLIA [id number] [place] [address] [place] Chloride [Moles/Vol] 111 mmol/L High 98-107 [facility] Comment on above: Order Comment: Speci men Type: BLOOD SPECIMENOrdering Facility: [facility] Address: [address] [place] [address] Performed By: #### 2 4362-6 ####[facility] LABCLIA [id number] [place] [id number] [place] CO2 [Moles/Vol] 18 mmol/L Low 22-30 [facility] Comment on above: Order Comment: Speci men Type: BLOOD SPECIMENOrdering Facility: [facility] Address: [address] [place] [address] Performed By: #### 2 4362-6 ####[facility] LABCLIA [id number] [place] [address] [place] Creatinine [Mass/Vol] 0.98 mg/dL High 0.58-0.96 [facility] Comment on above: Order Comment: Peter myles Type: BLOOD SPECIMENOrdering Facility: [facility] Address: [address] [place] [address] Performed By: #### 2 4362-6 ####[facility] LABIA [id number] [address] Creatinine and Glomerular filtration rate.predicted panel (S/P/Bld) 79 mL/min/1.73m??? Normal >=60 [facility] Comment on above: Order Comment: Peter myles Type: BLOOD SPECIMENOrdering Facility: [facility] Address: [address] [place] [address] Result Comment: Rachel mated Glomerular Filtration Rate [...] GFR. Performed By: #### 2 4362-6 ####[facility] LABCLIA [id number] [place] [address] [place] Glucose [Mass/Vol] 142 mg/dL High 74-99 [facility] Comment on above: Order Comment: Peter myles Type: BLOOD SPECIMENOrdering Facility: [facility] Address: [address] [place] [address] Result Comment: The [place] Diabetes Association (ADA) provides guidance for cutoff [...] Standards of Medical Care in Diabetes 2016, [place] Diabetes Association. Diabetes Care. 2016.39(Suppl 1). Performed By: #### 2 4362-6 ####[facility] LABCLIA [id number] [place] [id number] [place] Phosphate [Mass/Vol] 3.9 mg/dL Normal 2.7-4.8 [facility] Comment on above: Order Comment: Speci men Type: BLOOD SPECIMENOrdering Facility: [facility] Address: [address] [place] [address] Performed By: #### 2 4362-6 ####[facility] LABCLIA [id number] [place] [address] [place] Potassium [Moles/Vol] 4.3 mmol/L Normal 3.7-5.1 [facility] Comment on above: Order Comment: Speci men Type: BLOOD SPECIMENOrdering Facility: [facility] Address: [address] [place] [address] Performed By: #### 2 4362-6 ####[facility] LABCLIA [id number] [place] [address] [place] Sodium [Moles/Vol] 138 mmol/L Normal 136-144 [facility] Comment on above: Order Comment: Speci men Type: BLOOD SPECIMENOrdering Facility: [facility] Address: [address] [place] [address] Performed By: #### 2 4362-6 ####[facility] LABCLIA [id number] [place] [id number] [place] Urea nitrogen [Mass/Vol] 33 mg/dL High 7-21 [facility] Comment on above: Order Comment: Speci men Type: BLOOD SPECIMENOrdering Facility: [facility] Address: [address] [place] [address] Performed By: #### 2 4362-6 ####[facility] LABCLIA [id number] [place] [address] [place] CNPNon 04-09-2024 CNPN Normal [facility] Reporton 03-27-[address] [facility] [place] [address]- Surgical Pathology Report Collected Date/Time: 03/24/2024 12:20 EDT Pathologist: Timur URIBE, Ike Tolentino Received Date/Time: 03/24/2024 18:00 EDT Frank URIBE, Kvng Marie MD, Kvng Duran 07 Surgical Pathology Report - 03/27/2024 13:24 EDT [...] performance characteristics were determined by the Laboratory [facility]. They have not been cleared or approved by the US Food and Drug Administration. The FDA has determined that such clearance or approval is not necessary. These tests are used for clinical purposes. They should not be regarded as investigational or for research. Appropriate positive and negative controls are performed and are acceptable. Normal [facility] Comment on above: Performed By: #### 4 [id number] #### [facility] [address] [place] [address] Ambulatory Visit Summaryon 0 03-19-2024 Ambulatory Visit [...] times a day Refills: 3 Pickup at [facility]/pharmacy #6177 New sucralfate (Carafate 1 gram Tab) 1 Tablets By Mouth 4 times a day Duration: 14 Days Pickup at [facility]/pharmacy #6177 Changed famotidine (Pepcid 40 mg Tab) 1 Tablets By Mouth 2 times a day Pickup at [facility]/pharmacy #6177 Unchanged hydrocortisone (hydrocortisone 5 mg Tab) See instructions has 1 week left. Contact prescribing physician if questions or concerns Pharmacy Information [facility]/pharmacy #6177: [address], [place] [id number] [phone] Allergies No Known Medication Allergies Problems Ongoing [...] choosing us for your care. Yvonne [facility] Gastroenterology Office/Clin ic Noteon 03-19-2024 Gastroenterology [...] backed up) had Fredrick en y at [facility], had CT with iv contrast, reports it [...] reported imaging and labs were negative at [facility], will obtain the records Will proceed with EGD with random biopsies For constipation, we discussed lifestyle modifications, restart fibers, MiraLAX 1-2 times a day as needed, if fails in the future might consider Linzess Normal [facility] Comment on above: Result Comment: Elec tronically Signed By: Frank URIBE, Kvng Duran\.br\Date and Time Signed: 03/19/24 14:45 EDT Magnesium SerPl-ncon 02-25 Magnesium [Mass/Vol] 2.2 mg/dL Normal 1.7-2.3 [facility] Comment on above: Order Comment: Speci men Type: BLOOD SPECIMENOrdering Facility: [facility] Address: [address] [place] [address] Performed By: #### 2 4362-6, ####[facility] LABCLIA [id number] [place] [address] Renal function 2000 panelon 02-26-2024 Albumin [Mass/Vol] 4.3 g/dL Normal 3.9-4.9 [facility] Comment on above: Order Comment: Speci men Type: BLOOD SPECIMENOrdering Facility: [facility] Address: [address] [place] [address] Performed By: #### 2 4362-6, ####[facility] LABCLIA [id number] [place] [address] Anion gap [Moles/Vol] 7 mmol/L Low 8-15 [facility] Comment on above: Order Comment: Speci men Type: BLOOD SPECIMENOrdering Facility: [facility] Address: [address] [place], [place] [address] Performed By: #### 2 4362-6, ####[facility] LABCLIA [id number] [place] [address] Calcium [Mass/Vol] 9.5 mg/dL Normal 8.5-10.2 [facility] Comment on above: Order Comment: Speci men Type: BLOOD SPECIMENOrdering Facility: [facility] Address: [address] [place], [place] [address] Performed By: #### 2 4366, ####[facility] LABCLIA [id number] [place] [address] Chloride [Moles/Vol] 107 mmol/L Normal 98-107 [facility] Comment on above: Order Comment: Speci men Type: BLOOD SPECIMENOrdering Facility: [facility] Address: [address] [place] [address] Performed By: #### 2 43626, ####[facility] LABCLIA [id number] [place] [address] CO2 [Moles/Vol] 25 mmol/L Normal 22-30 [facility] Comment on above: Order Comment: Speci men Type: BLOOD SPECIMENOrdering Facility: [facility] Address: [address] [place] [address] Performed By: #### 2 436-6, ####[facility] LABCLIA [id number] [place] [address] Creatinine [Mass/Vol] 0.93 mg/dL Normal 0.58-0.96 [facility] Comment on above: Order Comment: Peter myles Type: BLOOD SPECIMENOrdering Facility: [facility] Address: [address] [place] [address] Performed By: #### 2 4362-6, ####[facility] LABCLIA [id number] [place] [address] Creatinine and Glomerular filtration rate.predicted panel (S/P/Bld) 84 mL/min/1.73m??? Normal >=60 [facility] Comment on above: Order Comment: Peter myles Type: BLOOD SPECIMENOrdering Facility: [facility] Address: [address] [place], [place] [address] Result Comment: Rachel mated Glomerular Filtration Rate [...] actual GFR. Performed By: #### 2 4362-6, ####[facility] LABCLIA [id number] [place] [address] Glucose [Mass/Vol] 86 mg/dL Normal 74-99 [facility] Comment on above: Order Comment: Peter myels Type: BLOOD SPECIMENOrdering Facility: [facility] Address: [address] [place] [address] Result Comment: The [place] Diabetes Association (ADA) provides guidance for cutoff [...] Standards of Medical Care in Diabetes 2016, [place] Diabetes Association. Diabetes Care. 2016.39(Suppl 1). Performed By: #### 2 4362-6, ####[facility] LABCLIA [id number] [place] [address] Phosphate [Mass/Vol] 4.2 mg/dL Normal 2.7-4.8 [facility] Comment on above: Order Comment: Speci men Type: BLOOD SPECIMENOrdering Facility: [facility] Address: [address] [place] [address] Performed By: #### 2 4362-6, ####[facility] LABIA [id number] [place] [address] Potassium [Moles/Vol] 4.6 mmol/L Normal 3.7-5.1 [facility] Comment on above: Order Comment: Speci men Type: BLOOD SPECIMENOrdering Facility: [facility] Address: [address] [place] [address] Performed By: #### 2 436-6, ####[facility] LABIA [id number] [place] [address] Sodium [Moles/Vol] 139 mmol/L Normal 136-144 [facility] Comment on above: Order Comment: Speci men Type: BLOOD SPECIMENOrdering Facility: [facility] Address: [address] [place], [place] [address] Performed By: #### 2 4362-6, ####[facility] LABCLIA [id number] [place] [address] Urea nitrogen [Mass/Vol] 30 mg/dL High 7-21 [facility] Comment on above: Order Comment: Speci men Type: BLOOD SPECIMENOrdering Facility: [facility] Address: [address] [place] [address] Performed By: #### 2 4362-6, ####[facility] LABCLIA [id number] [place] [address] Alanine aminotransferase [En zymatic activity/volume] in Serum or PlasmaOrdered By: Eliot Dawson on 02-21-2024 ALT [Catalytic activity/Vol] 20 U/L Normal 7-52 [facility] Comment on above: Performed By: #### C BC, CMP, HEPATIC, LIPASE #### [address] Albumin [Mass/volume] in Ser um or Plasma by Bromocresol green (BCG) dye binding methoOrdered By: Eliot Dawson on 02-21-2024 Albumin BCG dye [Mass/Vol] 4.2 g/dL 3.5-5.7 [facility] Alkaline phosphatase [Enzyma tic activity/volume] in Serum or PlasmaOrdered By: Eliot Dawson on 02-21-2024 ALP [Catalytic activity/Vol] 103 U/L Normal 34-104 [facility] Comment on above: Performed By: #### C BC, CMP, HEPATIC, LIPASE #### [address] Aspartate aminotransferase [ Enzymatic activity/volume] in Serum or PlasmaOrdered By: Eliot Dawson on 02-21-2024 AST [Catalytic activity/Vol] 16 U/L Normal 13-39 [facility] Comment on above: Performed By: #### C BC, CMP, HEPATIC, LIPASE #### [facility] [address] [place] [address] Automated basophil %Ordered By: Eliot Dawson on 02-21-2024 Basophils/100 WBC (Bld) 0.4 % Normal . [facility] Comment on above: Performed By: #### C BC, CMP, HEPATIC, LIPASE #### [facility] [address] [place] [address] Automated basophil countOrde red By: Eliot Dawson on 02-21-2024 Basophils (Bld) [#/Vol] 0.0 10*3/uL Normal 0.0-0.2 [facility] Comment on above: Result Comment: PERF ORMED BY: [facility] [address] [place] [address] PATHOLOGIST LEAD [employer] DEVELOPER MARY ANN LAL M.D. Performed By: #### C BC, CMP, HEPATIC, LIPASE #### [address] Automated blood monocyte cou ntOrdered By: Eliot Dawson on 02-21-2024 Monocytes (Bld) [#/Vol] 0.4 10*3/uL Normal 0.0-0.8 [facility] Comment on above: Performed By: #### C BC, CMP, HEPATIC, LIPASE #### [address] Automated eosinophil %Ordere d By: Eliot Dawson on 02-21-2024 Eosinophils/100 WBC (Bld) 0.4 % Normal . [facility] Comment on above: Performed By: #### C BC, CMP, HEPATIC, LIPASE #### [address] Automated eosinophil countOr dered By: Eliot Dawson on 02-21-2024 Eosinophils (Bld) [#/Vol] 0.0 10*3/uL Normal 0.0-0.45 [facility] Comment on above: Performed By: #### C BC, CMP, HEPATIC, LIPASE #### [address] Automated monocyte %Ordered By: Eliot Dawson on 02-21-2024 Monocytes/100 WBC (Bld) 3.4 % Normal . [facility] Comment on above: Performed By: #### C BC, CMP, HEPATIC, LIPASE #### [address] Automated neutrophil %Ordere d By: Eliot Dawson on 02-21-2024 Neutrophils/100 WBC (Bld) 79.3 % Normal . [facility] Comment on above: Performed By: #### C BC, CMP, HEPATIC, LIPASE #### [address] Bilirubin Test strip Ql (U)O rdered By: Eliot Dawson on 02-21-2024 Bilirubin Ql (U) Negative Negative [facility] Bilirubin.direct [Mass/volum e] in Serum or PlasmaOrdered By: Eliot Dawson on 02-21-2024 Bilirubin.direct [Mass/Vol] 0.10 mg/dL 0.03-0.18 [facility] Bilirubin.total [Mass/volume ] in Serum or PlasmaOrdered By: Eliot Dawson on 02-21-2024 Bilirubin [Mass/Vol] 0.7 mg/dL Normal 0.3-1.0 [facility] Comment on above: Performed By: #### C BC, CMP, HEPATIC, LIPASE #### [facility] [address] abdomen pelvis w conon CT abdomen pelvis w con [facility] [address] [place] [address] [place] [address] CT Scan Report Signed Patient: Heidi Joy MR#: [id number] : 1990 Acct:[id number] Age/Sex: 33 / F ADM Date: 02/21/24 Loc: ER Room: Type: [facility] ER Attending Dr: Copies to: [...] OBSTRUCTION. NO ACUTE FINDINGS. Impression dictated by: Jsoefina Conley M.D.02/21/2024 11:45 AM Dictation Location: [place] [address] Transcribed By: [facility] 02/21/24 1145 Dictated By: Josefina Conley MD 02/21/24 1137 Signed By: 02/21/24 1145 Normal [facility] Calcium [Mass/volume] in Ser um or PlasmaOrdered By: Eliot Dawson on 02-21-2024 Calcium [Mass/Vol] 8.9 mg/dL Normal 8.6-10.3 [facility] Comment on above: Performed By: #### C BC, CMP, HEPATIC, LIPASE #### [facility] [address] [place] [address] Carbon dioxide, total [Moles /volume] in Serum or PlasmaOrdered By: Eliot Dawson on 02-21-2024 CO2 [Moles/Vol] 24.5 mmol/L Normal 21.0-31.0 [facility] Comment on above: Performed By: #### C BC, CMP, HEPATIC, LIPASE #### [facility] [address] [place] [address] [place] Chloride [Moles/volume] in S eileen or PlasmaOrdered By: Eliot Dawson on 02-21-2024 Chloride [Moles/Vol] 110 mmol/L High 98-107 [facility] Comment on above: Performed By: #### C BC, CMP, HEPATIC, LIPASE #### [facility] [address] [place] [address] [place] Color of Urine by AutoOrdere d By: Eliot Dawson on 02-21-2024 Color (U) Light-yellow Normal Yellow [facility] Comment on above: Order Comment: Name Collection Type:: Clean-Voided Midstream Performed By: #### U HCG, UA #### [address] Complete Blood Count Auto Di ffon 02-21-2024 Mean Corpuscular HGB Conc 33.8 g/dL Normal 32.0-35.0 [facility] Comment on above: Performed By: #### C BC, CMP, HEPATIC, LIPASE #### [address] Monocytes/100 WBC (Bld) 17.21 % Normal 0.00-20.00 [facility] Comment on above: Performed By: #### C BC, CMP, HEPATIC, LIPASE #### [address] NRBC% 0.1 /100{WBC} Normal 0-0.5 [facility] Comment on above: Performed By: #### C BC, CMP, HEPATIC, LIPASE #### [address] Comprehensive Metabolic Pane delta 02-21-2024 Albumin [Mass/Vol] 4.2 g/dL Normal 3.5-5.7 [facility] Comment on above: Performed By: #### C BC, CMP, HEPATIC, LIPASE #### [address] Creatinine Clr Calc Pharmacy 105.28 Normal [facility] Comment on above: Performed By: #### C BC, CMP, HEPATIC, LIPASE #### [address] GFR/1.73 sq M.predicted MDRD (S/P/Bld) [Vol rate/Area] mL/min/{1.73_m2} Normal [facility] Comment on above: Performed By: #### C BC, CMP, HEPATIC, LIPASE #### [address] Creatinine [Mass/volume] in Serum or PlasmaOrdered By: Eliot Dawson on 02-21-2024 Creatinine [Mass/Vol] 0.84 mg/dL Normal 0.60-1.20 [facility] Comment on above: Performed By: #### C BC, CMP, HEPATIC, LIPASE #### [facility] [address] [place] [address] ECG 12 lead ECGon 02-21-2024 ECG 12 lead ECG [facility] [place] [address] [place] [address] Electrocardiograph Report Signed Patient: Heidi Joy MR#: [id number] : 1990 Acct:[id number] Age/Sex: 33 / F ADM Date: 02/21/24 Loc: ER Room: Type: [facility] ER Attending Dr: Ordering Provider: Eliot [...] Signed By Dandy Esparza MD 02/02 04/28 7679 Normal [facility] Erythrocyte distribution wid th [Ratio] by Automated countOrdered By: Eliot Dawson on 02-21-2024 Erythrocyte distribution width (RBC) [Ratio] 15.0 % Normal 11.9-15.3 [facility] Comment on above: Performed By: #### C BC, CMP, HEPATIC, LIPASE #### [facility] [address] [place] [address] Erythrocytes [#/volume] in B lood by Automated countOrdered By: Eliot Dawson on 02-21-2024 RBC (Bld) [#/Vol] 4.94 10*6/uL Normal 3.60-5.00 [facility] Comment on above: Performed By: #### C BC, CMP, HEPATIC, LIPASE #### [facility] [address] [place] [address] [place] Glucose [Mass/volume] in Ser um or PlasmaOrdered By: Eliot Dawson on 02-21-2024 Glucose [Mass/Vol] 86 mg/dL Normal 70-100 [facility] Comment on above: ADA recommended refe rence rangeRandom Glucose Reference Range is dependent on time and content of last meal. Glucose of more than 200 mg/dL in a nonstressed, ambulatory subject supports the diagnosis of Diabetes Mellitus. Result Comment: [place] om Glucose Reference Range is dependent on time and content of last meal. Glucose of more than 200 mg/dL in a nonstressed, ambulatory subject supports the diagnosis of Diabetes Mellitus. ADA recommended reference range Performed By: #### C BC, CMP, HEPATIC, LIPASE #### [facility] [address] [place] [id number] [place] Glucose [Mass/volume] in Uri ne by Test stripOrdered By: Eliot Dawson on 02-21-2024 Glucose Test strip (U) [Mass/Vol] Normal mg/dL Normal [facility] HCG ( test) IA.rapi d Ql (U)Ordered By: Eliot Dawson on 02-21-2024 HCG ( test) Ql (U) Negative [facility] HCG,Urineon 02-21-2024 Beta HCG ( test) Ql (U) Negative Normal [facility] Comment on above: Order Comment: Name Collection Type:: Clean-Voided Midstream Result Comment: PERF ORMED BY: [place] [address] PATHOLOGIST LEAD SQL DEVELOPER MARY ANN LAL M.D. Performed By: #### U HCG, UA #### [facility] [address] Hematocrit [Volume Fraction] of Blood by Automated countOrdered By: Eliot Dawson on 02-21-2024 Hematocrit (Bld) [Volume fraction] 43.1 % Normal 34.0-46.4 [facility] Comment on above: Performed By: #### C BC, CMP, HEPATIC, LIPASE #### [facility] [address] Hemoglobin Test strip Ql (U) Ordered By: Eliot Dawson on 02-21-2024 Hemoglobin Ql (U) Negative Negative [facility] Hemoglobin [Mass/volume] in BloodOrdered By: Eliot Dawson on 02-21-2024 Hemoglobin (Bld) [Mass/Vol] 14.6 g/dL Normal 11.8-15.4 [facility] Comment on above: Performed By: #### C BC, CMP, HEPATIC, LIPASE #### [facility] [address] Hepatic Panelon 02-21-2024 Bilirubin,Indirect 0.6 mg/dL Normal [facility] Comment on above: Performed By: #### C BC, CMP, HEPATIC, LIPASE #### [address] Bilirubin.indirect [Mass/Vol] 0.10 mg/dL Normal 0.03-0.18 [facility] Comment on above: Performed By: #### C BC, CMP, HEPATIC, LIPASE #### [address] Ketones [Presence] in Urine by Test stripOrdered By: Eliot Dawson on 02-21-2024 Ketones Ql (U) Negative Normal Negative [facility] Comment on above: Order Comment: Name Collection Type:: Clean-Voided Midstream Performed By: #### U HCG, UA #### [address] Leukocyte esterase [Presence ] in Urine by Test stripOrdered By: Eliot Dawson on 02-21-2024 Leukocyte esterase Test strip Ql (U) Negative Normal Negative [facility] Comment on above: Order Comment: Name Collection Type:: Clean-Voided Midstream Performed By: #### U HCG, UA #### [place] [address] [place] Leukocytes [#/volume] correc [place] for nucleated erythrocytes in Blood by Automated counOrdered By: Eliot Dawson on 02-21-2024 WBC corrected for nucl RBC Auto (Bld) [#/Vol] 10.9 10*3/uL 3.8-11.6 [facility] Leukocytes [#/volume] in Blo od by Automated countOrdered By: Eliot Dawson on 02-21-2024 WBC (Bld) [#/Vol] 10.9 10*3/uL Normal 3.8-11.6 [facility] Comment on above: Performed By: #### C BC, CMP, HEPATIC, LIPASE #### [address] Lipase [Enzymatic activity/v olume] in Serum or PlasmaOrdered By: Eliot Dawson on 02-21-2024 Lipase [Catalytic activity/Vol] 74.0 U/L Normal 11.0-82.0 [facility] Comment on above: Result Comment: PERF ORMED BY: [place] [address] PATHOLOGIST LEAD SQL DEVELOPER MARY ANN LAL M.D. Performed By: #### C BC, CMP, HEPATIC, LIPASE #### [place] [address] [place] Lymphocytes [#/volume] in Bl ood by Automated countOrdered By: Eliot Dawson on 02-21-2024 Lymphocytes (Bld) [#/Vol] 1.8 10*3/uL Normal 1.00-4.8 [facility] Comment on above: Performed By: #### C BC, CMP, HEPATIC, LIPASE #### [place] [address] [place] Lymphocytes/100 leukocytes i n Blood by Automated countOrdered By: Eliot Dawson on 02-21-2024 Lymphocytes/100 WBC (Bld) 16.5 % Normal . [facility] Comment on above: Performed By: #### C BC, CMP, HEPATIC, LIPASE #### [place] [address] [place] MCH [Entitic mass] by Automa [place] countOrdered By: Eliot Dawson on 02-21-2024 MCH (RBC) [Entitic mass] 29.5 pg Normal 24.7-34.3 [facility] Comment on above: Performed By: #### C BC, CMP, HEPATIC, LIPASE #### [facility] [address] [place] [address] MCHC Auto (RBC) [Mass/Vol]Or dered By: Eliot Dawson on 02-21-2024 MCHC (RBC) [Mass/Vol] 33.8 g/dL 32.0-35.0 [facility] MCV [Entitic volume] by Auto mated countOrdered By: Eliot Dawson on 02-21-2024 MCV (RBC) [Entitic vol] 87.4 fL Normal 80-100 [facility] Comment on above: Performed By: #### C BC, CMP, HEPATIC, LIPASE #### [facility] [address] [place] [address] Monocyte distribution width [Entitic volume] in Blood by AutomatedOrdered By: Eliot Dawson on 02-21-2024 Monocyte distribution width Auto (Bld) [Entitic vol] 17.21 % 0.00-20.00 [facility] Neutrophils [#/volume] in Bl ood by Automated countOrdered By: Eliot Dawson on 02-21-2024 Neutrophils (Bld) [#/Vol] 8.7 10*3/uL High 1.8-7.7 [facility] Comment on above: Performed By: #### C BC, CMP, HEPATIC, LIPASE #### [facility] [address] [place] [address] Nitrite Test strip Ql (U)Ord ered By: Eliot Dawson on 02-21-2024 Nitrite Ql (U) Negative Negative [facility] No Panel InformationOrdered By: Eliot Dawson on 02-21-2024 Estimated GFR (CKD-EPI) > 60.0 mL/Min [facility] Creatinine Clearance (Chem 105.28 [facility] Nucleated erythrocytes [Pres ence] in Blood by Automated countOrdered By: Eliot Dawson on 02-21-2024 Nucleated RBC Auto Ql (Bld) 0.1 /100{WBC} 0-0.5 [facility] Platelet mean volume [Entiti c volume] in Blood by Automated countOrdered By: Eliot Dawson on 02-21-2024 Platelet mean volume (Bld) [Entitic vol] 9.6 fL Normal 6.3-10.7 [facility] Comment on above: Performed By: #### C BC, CMP, HEPATIC, LIPASE #### [facility] [address] Platelets [#/volume] in Bloo d by Automated countOrdered By: Eliot Dawson on 02-21-2024 Platelets (Bld) [#/Vol] 221 10*3/uL Normal 150-450 [facility] Comment on above: Performed By: #### C BC, CMP, HEPATIC, LIPASE #### [address] Potassium [Moles/volume] in Serum or PlasmaOrdered By: Eliot Dawson on 02-21-2024 Potassium [Moles/Vol] 4.4 mmol/L Normal 3.5-5.1 [facility] Comment on above: Performed By: #### C BC, CMP, HEPATIC, LIPASE #### [address] Protein Test strip (U) [Mass /Vol]Ordered By: Eliot Dawson on 02-21-2024 Protein (U) [Mass/Vol] Negative Negative [facility] Protein [Mass/volume] in Ser um or PlasmaOrdered By: Eliot Dawson on 02-21-2024 Protein [Mass/Vol] 6.9 g/dL Normal 6.4-8.9 [facility] Comment on above: Performed By: #### C BC, CMP, HEPATIC, LIPASE #### [facility] [address] Serum globulin measurement b y calculation (mass/volume)Ordered By: Eliot Dawson on 02-21-2024 Globulin (S) [Mass/Vol] 2.7 g/dL Normal F [facility] Comment on above: Performed By: #### C BC, CMP, HEPATIC, LIPASE #### [facility] [address] Serum or plasma albumin/glob ulin mass ratioOrdered By: Eliot Dawson on 02-21-2024 Albumin/Globulin [Mass ratio] 1.6 {ratio} Normal [facility] Comment on above: Performed By: #### C BC, CMP, HEPATIC, LIPASE #### [address] Serum or plasma anion gap de terminationOrdered By: Eliot Dawson on 02-21-2024 Anion gap [Moles/Vol] 10.9 mmol/L Normal 6.0-15.0 [facility] Comment on above: Performed By: #### C BC, CMP, HEPATIC, LIPASE #### [address] Serum or plasma non-glucuron idated bilirubin measurement (mass/volume)Ordered By: Eliot Dawson on 02-21-2024 Bilirubin.indirect [Mass/Vol] 0.6 mg/dL [facility] Sodium [Moles/volume] in Ser um or PlasmaOrdered By: Eliot Dawson on 02-21-2024 Sodium [Moles/Vol] 141 mmol/L Normal 136-145 [facility] Comment on above: Performed By: #### C BC, CMP, HEPATIC, LIPASE #### [address] Specific gravity Test strip (U) [Rel density]Ordered By: Eliot Dawson on 02-21-2024 Specific gravity (U) [Rel density] 1.025 1.001-1.03 0 [facility] Urea nitrogen [Mass/volume] in Serum or PlasmaOrdered By: Eliot Dawson on 02-21-2024 Urea nitrogen [Mass/Vol] 34 mg/dL High 7-25 [facility] Comment on above: Performed By: #### C BC, CMP, HEPATIC, LIPASE #### [address] Urinalysison 02-21-2024 Bilirubin,Urine Negative Normal Negative [facility] Comment on above: Order Comment: Name Collection Type:: Clean-Voided Midstream Performed By: #### U HCG, UA #### [address] Glucose Ql (U) Normal Normal Normal [facility] Comment on above: Order Comment: Name Collection Type:: Clean-Voided Midstream Performed By: #### U HCG, UA #### [place] [address] [place] Nitrite,Urine Negative Normal Negative [facility] Comment on above: Order Comment: Name Collection Type:: Clean-Voided Midstream Performed By: #### U HCG, UA #### [place] [address] [place] Occult Blood,Urine Negative Normal Negative [facility] Comment on above: Order Comment: Name Collection Type:: Clean-Voided Midstream Performed By: #### U HCG, UA #### [address] Protein,Urine Negative Normal Negative [facility] Comment on above: Order Comment: Name Collection Type:: Clean-Voided Midstream Performed By: #### U HCG, UA #### [address] Specificy [place],Urine 1.025 Normal 1.00 1-1.03 0 [facility] Comment on above: Order Comment: Name Collection Type:: Clean-Voided Midstream Performed By: #### U HCG, UA #### [address] Urobilinogen,Urine Normal Normal Normal [facility] Comment on above: Order Comment: Name Collection Type:: Clean-Voided Midstream Performed By: #### U HCG, UA #### [address] Urine appearanceOrdered By: Eliot Dawson on 02-21-2024 Appearance (U) Clear Normal Clear [facility] Comment on above: Order Comment: Name Collection Type:: Clean-Voided Midstream Performed By: #### U HCG, UA #### [place] [id number] [facility] Urobilinogen Test strip (U) [Mass/Vol]Ordered By: Eliot Dawson on 02-21-2024 Urobilinogen (U) [Mass/Vol] Normal mg/dL Normal [facility] pH of Urine by Test stripOrd ered By: Eliot Dawson on 02-21-2024 pH (U) 5.5 [pH] Normal 5.0-9.0 [facility] Comment on above: Order Comment: Name Collection Type:: Clean-Voided Midstream Performed By: #### U HCG, UA #### [facility] [address] Aldost SerPl-mCncon 02-19-20 24 Aldosterone [Mass/Vol] <3.0 Normal 0.0-<35.4 [facility] Comment on above: Order Comment: Speci men Type: BLOOD SPECIMENOrdering Facility: [facility] Address: [address] [place] [address] Result Comment: The reference interval for serum/plasma [...] 15 ng/dL. Performed By: #### 1 763-2 ####[facility] LABCLIA [id number] [place] [address] [place]#### RENIND ####[facility] LABCLIA [id number] [address] LABCLIA [id number] [place] [address] DIRECT RENIN PLASMAon 2023 DIRECT RENIN 8.7 pg/mL Normal 4.2-52.2 [facility] Comment on above: Order Comment: Speci men Type: BLOOD SPECIMENOrdering Facility: [facility] Address: [address] [place] [address] Result Comment: A ra yue of aldosterone [...] 2.5-45.1 pg/mL Performed By: #### 1 763-2 ####[facility] LABCLIA [id number] [place] [address] [place]#### RENIND ####[facility] LABCLIA [id number] [address] LABCLIA [id number] [place] [address] PATIENT UPRIGHT OR SUPINE Upright Normal [facility] Comment on above: Order Comment: Speci men Type: BLOOD SPECIMENOrdering Facility: [facility] Address: [address] [place] [address] Performed By: #### 1 763-2 ####[facility] LABCLIA [id number] [place] [address] [place]#### RENIND ####[facility] LABCLIA [id number] [address] LABCLIA [id number] [place] [id number] Magnesium [facility] 02-18 Magnesium [Mass/Vol] 2.2 mg/dL Normal 1.7-2.3 [facility] Comment on above: Order Comment: Speci men Type: BLOOD SPECIMENOrdering Facility: [facility] Address: [address] [place] [address] Performed By: #### 1 9123-9, 01669-2 ####[facility] LABCLIA [id number] [place] [address] Renal function 2000 panelon 02-19-2024 Albumin [Mass/Vol] 4.6 g/dL Normal 3.9-4.9 [facility] Comment on above: Order Comment: Speci men Type: BLOOD SPECIMENOrdering Facility: [facility] Address: [address] [place] [address] Performed By: #### 1 9123-9, 14068-9 ####[facility] LABCLIA [id number] [place] [address] Anion gap [Moles/Vol] 9 mmol/L Normal 8-15 [facility] Comment on above: Order Comment: Speci men Type: BLOOD SPECIMENOrdering Facility: [facility] Address: [address] [place] [address] Performed By: #### 1 9123-9, 95959-3 ####[facility] LABCLIA [id number] [place] [address] Calcium [Mass/Vol] 9.9 mg/dL Normal 8.5-10.2 [facility] Comment on above: Order Comment: Speci men Type: BLOOD SPECIMENOrdering Facility: [facility] Address: [address] [place] [address] Performed By: #### 1 9123-9, 57433-9 ####[facility] LABCLIA [id number] [place] [address] Chloride [Moles/Vol] 107 mmol/L Normal 98-107 [facility] Comment on above: Order Comment: Speci men Type: BLOOD SPECIMENOrdering Facility: [facility] Address: [address] [place] [address] Performed By: #### 1 9123-9, 42805-0 ####[facility] LABCLIA [id number] [place] [address] CO2 [Moles/Vol] 23 mmol/L Normal 22-30 [facility] Comment on above: Order Comment: Speci men Type: BLOOD SPECIMENOrdering Facility: [facility] Address: [address] [place] [id number] Performed By: #### 1 9123-9, 27905-1 ####[facility] LABCLIA [id number] [place] [address] Creatinine [Mass/Vol] 1.01 mg/dL High 0.58-0.96 [facility] Comment on above: Order Comment: Speci men Type: BLOOD SPECIMENOrdering Facility: [facility] Address: [address] [place] [address] Performed By: #### 1 9123-9, 12796-1 ####[facility] LABCLIA [id number] [place] [address] Creatinine and Glomerular filtration rate.predicted panel (S/P/Bld) 76 mL/min/1.73m??? Normal >=60 [facility] Comment on above: Order Comment: Speci men Type: BLOOD SPECIMENOrdering Facility: [facility] Address: [address] [place] [address] Result Comment: Rachel mated Glomerular Filtration Rate [...] actual GFR. Performed By: #### 1 9123-9, 61275-2 ####[facility] LABIA [id number] [place] [address] Glucose [Mass/Vol] 142 mg/dL High 74-99 [facility] Comment on above: Order Comment: Speci men Type: BLOOD SPECIMENOrdering Facility: [facility] Address: [address] [place] [address] Result Comment: The [place] Diabetes Association (ADA) provides guidance for cutoff [...] Standards of Medical Care in Diabetes 2016, [place] Diabetes Association. Diabetes Care. 2016.39(Suppl 1). Performed By: #### 1 9123-9, 00591-0 ####[facility] LABCLIA [id number] [place] [address] Phosphate [Mass/Vol] 4.8 mg/dL Normal 2.7-4.8 [facility] Comment on above: Order Comment: Speci men Type: BLOOD SPECIMENOrdering Facility: [facility] Address: [address] [place] [address] Performed By: #### 1 9123-9, 33201-2 ####[facility] LABCLIA [id number] [place] [address] Potassium [Moles/Vol] 4.2 mmol/L Normal 3.7-5.1 [facility] Comment on above: Order Comment: Speci men Type: BLOOD SPECIMENOrdering Facility: [facility] Address: [address] [place] [address] Performed By: #### 1 9123-9, ####[facility] LABCLIA [id number] [place] [address] Sodium [Moles/Vol] 139 mmol/L Normal 136-144 [facility] Comment on above: Order Comment: Speci men Type: BLOOD SPECIMENOrdering Facility: [facility] Address: [address] [place] [address] Performed By: #### 1 9123-9, 50637-0 ####[facility] LABCLIA [id number] [place] [address] Urea nitrogen [Mass/Vol] 39 mg/dL High 7-21 [facility] Comment on above: Order Comment: Speci men Type: BLOOD SPECIMENOrdering Facility: [facility] Address: [address] [place] [address] Performed By: #### 1 9123-9, 04350-0 ####[facility] LABCLIA [id number] [place] [address] Albumin SerPl-mCncon 024 Albumin [Mass/Vol] 4.6 g/dL Normal 3.9-4.9 [facility] Comment on above: Order Comment: Speci men Type: BLOOD SPECIMENOrdering Facility: [facility] Address: [address] [place] [address] Performed By: #### 1 9123-9, 2777-1, 16773-1, 1751-7 ####[facility] LABCLIA [id number] [place] [address] Aldost SerPl-mCncon 02-13-20 24 Aldosterone [Mass/Vol] 4.5 ng/dL Normal 0.0-<35.4 [facility] Comment on above: Order Comment: Speci men Type: BLOOD SPECIMENOrdering Facility: [facility] Address: [address] [place] [address] Result Comment: The reference interval for serum/plasma [...] 15 ng/dL. Performed By: #### R ENIND ####[facility] LABCLIA [id number] [address] LABCLIA [id number] [place] [address]#### 1763-2 ####[facility] LABCLIA [id number] [facility] [id number] [address] [place] Basic metabolic 2000 panelon 02-13-2024 Anion gap [Moles/Vol] 8 mmol/L Normal 8-15 [facility] Comment on above: Order Comment: Speci men Type: BLOOD SPECIMENOrdering Facility: [facility] Address: [address] [place], [place] [address] Performed By: #### 1 9123-9, 2777-1, 78288-1, 1751-02 ####[facility] LABCLIA [id number] [place] [address] Calcium [Mass/Vol] 10.4 mg/dL High 8.5-10.2 [facility] Comment on above: Order Comment: Speci men Type: BLOOD SPECIMENOrdering Facility: [facility] Address: [address] [place] [address] Performed By: #### 1 9123-9, 2777-1, 29522-9, 1751-02 ####[facility] LABIA [id number] [place] [address] Chloride [Moles/Vol] 106 mmol/L Normal 98-107 [facility] Comment on above: Order Comment: Speci men Type: BLOOD SPECIMENOrdering Facility: [facility] Address: [address] [place] [address] Performed By: #### 1 9123-9, 2777-1, 80150-5, 1751-02 ####[facility] LABIA [id number] [place] [address] CO2 [Moles/Vol] 23 mmol/L Normal 22-30 [facility] Comment on above: Order Comment: Speci men Type: BLOOD SPECIMENOrdering Facility: [facility] Address: [address] [place] [address] Performed By: #### 1 9123-9, 2777-1, 56398-4, 1751-02 ####[facility] LABCLIA [id number] [place] [address] Creatinine [Mass/Vol] 0.98 mg/dL High 0.58-0.96 [facility] Comment on above: Order Comment: Speccollins myles Type: BLOOD SPECIMENOrdering Facility: [facility] Address: [address] [place] [address] Performed By: #### 1 9123-9, 2777-1, 66566-9, 1751-02 ####[facility] LABCLIA [id number] [place] [address] Creatinine and Glomerular filtration rate.predicted panel (S/P/Bld) 79 mL/min/1.73m??? Normal >=60 [facility] Comment on above: Order Comment: Peter myles Type: BLOOD SPECIMENOrdering Facility: [facility] Address: [address] [place] [address] Result Comment: Rachel mated Glomerular Filtration Rate [...] GFR. Performed By: #### 1 9123-9, 2777-1, 89996-6, 1751-02 ####[facility] LABCLIA [id number] [place] [address] Glucose [Mass/Vol] 106 mg/dL High 74-99 [facility] Comment on above: Order Comment: Joselyni shar Type: BLOOD SPECIMENOrdering Facility: [facility] Address: [address] [place] [id number] Result Comment: The [place] Diabetes Association (ADA) provides guidance for cutoff [...] Standards of Medical Care in Diabetes 2016, [employer]. Diabetes Care. 2016.39(Suppl 1). Performed By: #### 1 9123-9, 2777-1, 51199-1, 1751-02 ####[facility] LABCLIA [id number] [place] [address] Potassium [Moles/Vol] 4.8 mmol/L Normal 3.7-5.1 [facility] Comment on above: Order Comment: Speci men Type: BLOOD SPECIMENOrdering Facility: [facility] Address: [address] [place] [address] Performed By: #### 1 9123-9, 2777-, 93784-0, 1751-02 ####[facility] LABCLIA [id number] [place] [address] Sodium [Moles/Vol] 137 mmol/L Normal 136-144 [facility] Comment on above: Order Comment: Speci shar Type: BLOOD SPECIMENOrdering Facility: [facility] Address: [address] [place] [address] Performed By: #### 1 9123-9, 2777-, 63997-4, 1751-02 ####[facility] LABCLIA [id number] [place] [address] Urea nitrogen [Mass/Vol] 35 mg/dL High 7-21 [facility] Comment on above: Order Comment: Speci men Type: BLOOD SPECIMENOrdering Facility: [facility] Address: [address] [place] [address] Performed By: #### 1 9123-9, 2777-1, 72772-2, 1751-02 ####[facility] LABCLIA [id number] [place] [address] CNPNon 02-13-2024 CNPN Normal [facility] DIRECT RENIN PLASMAon 2023 DIRECT RENIN 5.0 pg/mL Normal 4.2-52.2 [facility] Comment on above: Order Comment: Speci men Type: BLOOD SPECIMENOrdering Facility: [facility] Address: [address] [place] [address] Result Comment: A ra yue of aldosterone [...] 2.5-45.1 pg/mL Performed By: #### R ENIND ####[facility] LABCLIA [id number] [address] LABCLIA [id number] [place] [address]#### 1763-2 ####[facility] LABCLIA [id number] [place] [address] [place] PATIENT UPRIGHT OR SUPINE Upright Normal [facility] Comment on above: Order Comment: Speci men Type: BLOOD SPECIMENOrdering Facility: [facility] Address: [address] [place] [address] Performed By: #### R ENIND ####[facility] LABCLIA [id number] [address] LABCLIA [id number] [place] [address]#### 1763-2 ####[facility] LABCLIA [id number] [place] [id number] [place] Magnesium SerPl-mCncon 02-12 Magnesium [Mass/Vol] 2.1 mg/dL Normal 1.7-2.3 [facility] Comment on above: Order Comment: Speci men Type: BLOOD SPECIMENOrdering Facility: [facility] Address: [address] [place] [address] Performed By: #### 1 9123-9, 2777-1, 74539-5, 175-7 ####[facility] LABIA [id number] [place] [address] Phosphate SerPl-mCncon 02-12 Phosphate [Mass/Vol] 3.2 mg/dL Normal 2.7-4.8 [facility] Comment on above: Order Comment: Speci men Type: BLOOD SPECIMENOrdering Facility: [facility] Address: [address] [place] [address] Performed By: #### 1 9123-9, 2777-1, 21181-7, 7 ####[facility] LABIA [id number] [place] [address] CNOVon 02-12-2024 CNOV Normal [facility] CNPNon 02-07-2024 CNPN Normal [facility] Magnesium SerPl-mCncon 02-06 Magnesium [Mass/Vol] 2.3 mg/dL Normal 1.7-2.3 [facility] Comment on above: Order Comment: Speci men Type: BLOOD SPECIMENOrdering Facility: [facility] Address: [address] [place] [address] Performed By: #### 2 4362-6, 42734-9 ####[facility] LABIA [id number] [place] [address] Renal function 2000 panelon 02-07-2024 Albumin [Mass/Vol] 4.6 g/dL Normal 3.9-4.9 [facility] Comment on above: Order Comment: Speci men Type: BLOOD SPECIMENOrdering Facility: [facility] Address: [address] [place] [address] Performed By: #### 2 4362-6, ####[facility] LABCLIA [id number] [place] [address] Anion gap [Moles/Vol] 8 mmol/L Normal 8-15 [facility] Comment on above: Order Comment: Speci men Type: BLOOD SPECIMENOrdering Facility: [facility] Address: [address] [place] [address] Performed By: #### 2 436-6, ####[facility]JLOBIT[facility] LABCLIA [id number] [place] [address] Calcium [Mass/Vol] 10.3 mg/dL High 8.5-10.2 [facility] Comment on above: Order Comment: Speci men Type: BLOOD SPECIMENOrdering Facility: [facility] Address: [address] [place] [address] Performed By: #### 2 43609-10, ####[facility] LABCLIA [id number] [place] [address] Chloride [Moles/Vol] 108 mmol/L High 98-107 [facility] Comment on above: Order Comment: Speci men Type: BLOOD SPECIMENOrdering Facility: [facility] Address: [address] [place] [address] Performed By: #### 2 4366, ####[facility] LABCLIA [id number] [place] [address] CO2 [Moles/Vol] 26 mmol/L Normal 22-30 [facility] Comment on above: Order Comment: Speci men Type: BLOOD SPECIMENOrdering Facility: [facility] Address: [address] [place] [address] Performed By: #### 2 4362-6, ####[facility] LABCLIA [id number] [place] [address] Creatinine [Mass/Vol] 0.92 mg/dL Normal 0.58-0.96 [facility] Comment on above: Order Comment: Peter myles Type: BLOOD SPECIMENOrdering Facility: [facility] Address: [address] [place], [place] [address] Performed By: #### 2 4362-6, ####[facility] LABCLIA [id number] [place] [address] Creatinine and Glomerular filtration rate.predicted panel (S/P/Bld) 85 mL/min/1.73m??? Normal >=60 [facility] Comment on above: Order Comment: Peter myles Type: BLOOD SPECIMENOrdering Facility: [facility] Address: [address] [place] [address] Result Comment: Rachel mated Glomerular Filtration Rate [...] actual GFR. Performed By: #### 2 4362-6, ####[facility] LABCLIA [id number] [place] [address] Glucose [Mass/Vol] 52 mg/dL Low 74-99 [facility] Comment on above: Order Comment: Peter myles Type: BLOOD SPECIMENOrdering Facility: [facility] Address: [address] [place] [id number] Result Comment: The [place] Diabetes Association (ADA) provides guidance for cutoff [...] Standards of Medical Care in Diabetes 2016, [place] [employer]. Diabetes Care. 2016.39(Suppl 1). Performed By: #### 2 4362-6, ####[facility] LABCLIA [id number] [place] [address] Phosphate [Mass/Vol] 3.7 mg/dL Normal 2.7-4.8 [facility] Comment on above: Order Comment: Speci men Type: BLOOD SPECIMENOrdering Facility: [facility] Address: [address] [place] [address] Performed By: #### 2 4362-6, ####[facility]IANNJLOBITO [facility] LABIA [id number] [place] [address] Potassium [Moles/Vol] 4.4 mmol/L Normal 3.7-5.1 [facility] Comment on above: Order Comment: Speci men Type: BLOOD SPECIMENOrdering Facility: [facility] Address: [address] [place] [address] Performed By: #### 2 4362-6, ####[facility] LABIA [id number] [place] [address] Sodium [Moles/Vol] 142 mmol/L Normal 136-144 [facility] Comment on above: Order Comment: Speci men Type: BLOOD SPECIMENOrdering Facility: [facility] Address: [address] [place] [address] Performed By: #### 2 4362-6, ####[facility] LABCLIA [id number] [place] [address] Urea nitrogen [Mass/Vol] 29 mg/dL High 7-21 [facility] Comment on above: Order Comment: Speci men Type: BLOOD SPECIMENOrdering Facility: [facility] Address: [address] [place] [address] Performed By: #### 2 4362-6, ####[facility] LABCLIA [id number] [place] [address] CNOVon 02-04-2024 CNOV Normal [facility] Magnesium SerPl-mCncon 02-02 Magnesium [Mass/Vol] 2.1 mg/dL Normal 1.7-2.3 [facility] Comment on above: Order Comment: Speci men Type: BLOOD SPECIMENOrdering Facility: [facility] Address: [address] [place] [address] Performed By: #### 1 9123-9, 59144-9 ####[facility] LABCLIA [id number] [place] [address] Renal function 2000 panelon 02-03-2024 Albumin [Mass/Vol] 4.5 g/dL Normal 3.9-4.9 [facility] Comment on above: Order Comment: Speci men Type: BLOOD SPECIMENOrdering Facility: [facility] Address: [address] [place] [address] Performed By: #### 1 9123-9, 35485-9 ####[facility] LABCLIA [id number] [place] [address] Anion gap [Moles/Vol] 9 mmol/L Normal 8-15 [facility] Comment on above: Order Comment: Speci men Type: BLOOD SPECIMENOrdering Facility: [facility] Address: [address] [place] [address] Performed By: #### 1 9123-9, 96131-3 ####[facility] LABCLIA [id number] [place] [address] Calcium [Mass/Vol] 9.9 mg/dL Normal 8.5-10.2 [facility] Comment on above: Order Comment: Speci men Type: BLOOD SPECIMENOrdering Facility: [facility] Address: [address] [place] [address] Performed By: #### 1 9123-9, 95599-5 ####[facility] LABCLIA [id number] [place] [address] Chloride [Moles/Vol] 109 mmol/L High 98-107 [facility] Comment on above: Order Comment: Speci men Type: BLOOD SPECIMENOrdering Facility: [facility] Address: [address] [place] [address] Performed By: #### 1 9123-9, 29329-5 ####[facility] LABCLIA [id number] [place] [address] CO2 [Moles/Vol] 27 mmol/L Normal 22-30 [facility] Comment on above: Order Comment: Speci men Type: BLOOD SPECIMENOrdering Facility: [facility] Address: [address] [place] [address] Performed By: #### 1 9123-9, 04076-4 ####[facility] LABCLIA [id number] [place] [address] Creatinine [Mass/Vol] 0.84 mg/dL Normal 0.58-0.96 [facility] Comment on above: Order Comment: Speci men Type: BLOOD SPECIMENOrdering Facility: [facility] Address: [address] [place] [address] Performed By: #### 1 9123-9, 56090-4 ####[facility] LABCLIA [id number] [place] [address] Creatinine and Glomerular filtration rate.predicted panel (S/P/Bld) 95 mL/min/1.73m??? Normal >=60 [facility] Comment on above: Order Comment: Speci men Type: BLOOD SPECIMENOrdering Facility: [facility] Address: [address] [place] [address] Result Comment: Rachel mated Glomerular Filtration Rate [...] actual GFR. Performed By: #### 1 9123-9, 98825-6 ####[facility] LABCLIA [id number] [place] [address] Glucose [Mass/Vol] 66 mg/dL Low 74-99 [facility] Comment on above: Order Comment: Speci men Type: BLOOD SPECIMENOrdering Facility: [facility] Address: [address] [place] [address] Result Comment: The [place] Diabetes Association (ADA) provides guidance for cutoff [...] Standards of Medical Care in Diabetes 2016, [place] [employer]. Diabetes Care. 2016.39(Suppl 1). Performed By: #### 1 9123-9, 85367-6 ####[facility] LABCLIA [id number] [place] [address] Phosphate [Mass/Vol] 3.5 mg/dL Normal 2.7-4.8 [facility] Comment on above: Order Comment: Speci men Type: BLOOD SPECIMENOrdering Facility: [facility] Address: [address] [place] [address] Performed By: #### 1 9123-9, 88464-7 ####[facility] LABIA [id number] [place] [address] Potassium [Moles/Vol] 4.0 mmol/L Normal 3.7-5.1 [facility] Comment on above: Order Comment: Speci men Type: BLOOD SPECIMENOrdering Facility: [facility] Address: [address] [place] [address] Performed By: #### 1 9123-9, 27233-5 ####[facility] LABCLIA [id number] [place] [address] Sodium [Moles/Vol] 145 mmol/L High 136-144 [facility] Comment on above: Order Comment: Speci men Type: BLOOD SPECIMENOrdering Facility: [facility] Address: [address] [place] [address] Performed By: #### 1 9123-9, 77571-9 ####[facility] LABCLIA [id number] [place] [address] Urea nitrogen [Mass/Vol] 23 mg/dL High 7-21 [facility] Comment on above: Order Comment: Speci men Type: BLOOD SPECIMENOrdering Facility: [facility] Address: [address] [place] [address] Performed By: #### 1 9123-9, 46044-8 ####[facility] LABCLIA [id number] [place] [address] ACTH Plas-mCncon 01-29-2024 Corticotropin (P) [Mass/Vol] 1.1 pg/mL Low 7.2-63.3 [facility] Comment on above: Order Comment: Speci men Type: BLOOD SPECIMENOrdering Facility: [facility] Address: [address] [place] [address] Result Comment: ACTH Reference Range: 7-10 am: 7.2 - 63.3 pg/mL Performed By: #### 2 141-0 ####[facility] LABCLIA [id number] [place] [address] [place] Aldost SerPl-mCncon 01-29-20 24 Aldosterone [Mass/Vol] 4.7 ng/dL Normal 0.0-<35.4 [facility] Comment on above: Order Comment: Speci men Type: BLOOD SPECIMENOrdering Facility: [facility] Address: [address] [place] [address] Result Comment: The reference interval for serum/plasma [...] ng/dL. Performed By: #### R JULIANO, 1763-2 ####[facility] LABCLIA [id number] [place] [address] [place] Basic metabolic 2000 panelon 01-29-2024 Anion gap [Moles/Vol] 13 mmol/L Normal 8-15 [facility] Comment on above: Order Comment: Speci men Type: BLOOD SPECIMENOrdering Facility: [facility] Address: [address] [place] [address] Performed By: #### 2 4320-09, 2143-01 ####[facility] LABIA [id number] [address] [address] [place] Calcium [Mass/Vol] 9.1 mg/dL Normal 8.5-10.2 [facility] Comment on above: Order Comment: Speci men Type: BLOOD SPECIMENOrdering Facility: [facility] Address: [address] [place], [place] [address] Performed By: #### 2 4320-09, 2143-01 ####[facility] LABCLIA [id number] [place] [id number] [place] Chloride [Moles/Vol] 105 mmol/L Normal 98-107 [facility] Comment on above: Order Comment: Speci men Type: BLOOD SPECIMENOrdering Facility: [facility] Address: [address] [place] [address] Performed By: #### 2 4320-09, 2143-01 ####[facility] LABCLIA [id number] [address] [address] [place] CO2 [Moles/Vol] 20 mmol/L Low 22-30 [facility] Comment on above: Order Comment: Peter myles Type: BLOOD SPECIMENOrdering Facility: [facility] Address: [address] [place] [address] Performed By: #### 2 432-2, 2143-01 ####[facility] LABCLIA [id number] [place] [address] [place] Creatinine [Mass/Vol] 0.78 mg/dL Normal 0.58-0.96 [facility] Comment on above: Order Comment: Joselyni men Type: BLOOD SPECIMENOrdering Facility: [facility] Address: [address] [place] [address] Performed By: #### 2 4320-09, 2143-01 ####[facility] LABCLIA [id number] [place] [address] [place] Creatinine and Glomerular filtration rate.predicted panel (S/P/Bld) 104 mL/min/1.73m??? Normal >=60 [facility] Comment on above: Order Comment: Peter myles Type: BLOOD SPECIMENOrdering Facility: [facility] Address: [address] [place] [address] Result Comment: Rachel mated Glomerular Filtration Rate [...] GFR. Performed By: #### 2 4320-09, 2143-01 ####[facility] LABCLIA [id number] [place] [address] [place] Glucose [Mass/Vol] 111 mg/dL High 74-99 [facility] Comment on above: Order Comment: Joselyni men Type: BLOOD SPECIMENOrdering Facility: [facility] Address: [address] [place] [address] Result Comment: The [place] Diabetes Association (ADA) provides guidance for cutoff [...] Standards of Medical Care in Diabetes 2016, [place] [employer]. Diabetes Care. 2016.39(Suppl 1). Performed By: #### 2 432-, 2143-01 ####[facility] LABCLIA [id number] [place] [address] [place] Potassium [Moles/Vol] 4.8 mmol/L Normal 3.7-5.1 [facility] Comment on above: Order Comment: Speci men Type: BLOOD SPECIMENOrdering Facility: [facility] Address: [address] [place] [address] Performed By: #### 2 4320-09, 2143-01 ####[facility] LABIA [id number] [place] [address] [place] Sodium [Moles/Vol] 138 mmol/L Normal 136-144 [facility] Comment on above: Order Comment: Speci men Type: BLOOD SPECIMENOrdering Facility: [facility] Address: [address] [place] [address] Performed By: #### 2 4320-09, 2143-01 ####[facility] LABCLIA [id number] [place] [address] [place] Urea nitrogen [Mass/Vol] 24 mg/dL High 7-21 [facility] Comment on above: Order Comment: Speci men Type: BLOOD SPECIMENOrdering Facility: [facility] Address: [address] [place] [address] Performed By: #### 2 4321-2, 2143-6 ####[facility] LABIA [id number] [place] [address] [place] CBC panel Auto (Bld)on 01-28 Erythrocyte distribution width (RBC) [Ratio] 14.2 % Normal 11.5-15.0 [facility] Comment on above: Order Comment: Speci men Type: BLOOD SPECIMENOrdering Facility: [facility] Address: [address] [place] [address] Performed By: #### 5 8410-2 ####[facility] LABIA [id number] [place] [address] [place] Hematocrit (Bld) [Volume fraction] 41.0 % Normal 36.0-46.0 [facility] Comment on above: Order Comment: Speci men Type: BLOOD SPECIMENOrdering Facility: [facility] Address: [address] [place] [address] Performed By: #### 5 8410-2 ####[facility] LABIA [id number] [place] [address] [place] Hemoglobin (Bld) [Mass/Vol] 13.8 g/dL Normal 11.5-15.5 [facility] Comment on above: Order Comment: Speci men Type: BLOOD SPECIMENOrdering Facility: [facility] Address: [address] [place] [address] Performed By: #### 5 8410-2 ####[facility] LABIA [id number] [place] [address] [place] MCH (RBC) [Entitic mass] 29.6 pg Normal 26.0-34.0 [facility] Comment on above: Order Comment: Speci men Type: BLOOD SPECIMENOrdering Facility: [facility] Address: [address] [place] [address] Performed By: #### 5 8410-2 ####[facility] LABIA [id number] [place] [address] [place] MCHC (RBC) [Mass/Vol] 33.7 g/dL Normal 30.5-36.0 [facility] Comment on above: Order Comment: Speci men Type: BLOOD SPECIMENOrdering Facility: [facility] Address: [address] [place] [address] Performed By: #### 5 8410-2 ####[facility] LABIA [id number] [place] [address] [place] MCV (RBC) [Entitic vol] 87.8 fL Normal 80.0-100.0 [facility] Comment on above: Order Comment: Speci men Type: BLOOD SPECIMENOrdering Facility: [facility] Address: [address] [place] [address] Performed By: #### 5 8410-2 ####[facility] [id number] [place] [address] [place] Nucleated RBC (Bld) [#/Vol] 10*3/uL Normal <0.01 [facility] Comment on above: Order Comment: Speci men Type: BLOOD SPECIMENOrdering Facility: [facility] Address: [address] [place] [address] Performed By: #### 5 8410-2 ####[facility] [id number] [place] [address] [place] Platelet mean volume (Bld) [Entitic vol] 12.5 fL Normal 9.0-12.7 [facility] Comment on above: Order Comment: Speci men Type: BLOOD SPECIMENOrdering Facility: [facility] Address: [address] [place] [address] Performed By: #### 5 8410-2 ####[facility] LABIA [id number] [place] [address] [place] Platelets (Bld) [#/Vol] 183 10*3/uL Normal 150-400 [facility] Comment on above: Order Comment: Speci men Type: BLOOD SPECIMENOrdering Facility: [facility] Address: [address] [place] [address] Performed By: #### 5 8410-2 ####[facility] LABCLIA [id number] [place] [address] [place] RBC (Bld) [#/Vol] 4.67 10*6/uL Normal 3.90-5.20 [facility] Comment on above: Order Comment: Speci men Type: BLOOD SPECIMENOrdering Facility: [facility] Address: [address] [place] [address] Performed By: #### 5 8410-2 ####[facility] LABCLIA [id number] [place] [address] [place] WBC (Bld) [#/Vol] 10.35 10*3/uL Normal 3.70-11.00 [facility] Comment on above: Order Comment: Speci men Type: BLOOD SPECIMENOrdering Facility: [facility] Address: [address] [place] [address] Performed By: #### 5 8410-2 ####[facility] LABCLIA [id number] [place] [address] [place] CNCOon 01-29-2024 CNCO Letter Text Normal [facility] CNDSon 01-29-2024 CNDS Normal [facility] CORTISOL, 30 MINon Cortisol 30 Min post Unsp challenge [Mass/Vol] 7.8 ug/dL Normal [facility] Comment on above: Order Comment: Speci men Type: BLOOD SPECIMENOrdering Facility: [facility] Address: [address] [place] [address] Performed By: #### C OR30 ####[facility] LABCLIA [id number] [place] [address] [place] CORTISOL, 60 MINon 4 Cortisol 1 Hr post Unsp challenge [Mass/Vol] 10.6 ug/dL Normal [facility] Comment on above: Order Comment: Speci men Type: BLOOD SPECIMENOrdering Facility: [facility] Address: [address] [place] [address] Performed By: #### C ORS60M ####[facility] LABCLIA [id number] [place] [address] [place] INTERPRETATION (ACTHST) Normal [facility] Comment on above: Order Comment: Speci men Type: BLOOD SPECIMENOrdering Facility: [facility] Address: [address] [place] [address] Result Comment: Afte r cortrosyn stimulation, a peak cortisol response greater than 12.6 ug/dL may indicate appropriate cortisol secretion. This result should be interpreted within the clinical context and other test results.Yannick et al. Clinical Implications for Biochemical Diagnostic Thresholds of Adrenal Sufficiency Using a Highly Specific Cortisol Immunoassay. 2017 Clin. Biochem. 50:475-480. Performed By: #### C [id number] ####[facility] LABCLIA [id number] [place] [address] [place] Cortis SerPl-mCncon 01-29-20 Cortisol [Mass/Vol] 0.5 ug/dL Low 4.8-19.5 [facility] Comment on above: Order Comment: Speci men Type: BLOOD SPECIMENOrdering Facility: [facility] Address: [address] [place] [address] Result Comment: Prov ided reference range is from 6-10 AM sample collection time.Cortisol Reference Range: 6-10 AM = 4.8-19.5 ug/dL, 4-8 PM = 2.5-11.9 ug/dL Performed By: #### 2 4321-2, 2143-6 ####[facility] LABCLIA [id number] [place] [address] [place] DIRECT RENIN PLASMAon 2023 DIRECT RENIN <2.1 Low 4.2-52.2 [facility] Comment on above: Order Comment: Speci men Type: BLOOD SPECIMENOrdering Facility: [facility] Address: [address] [place] [address] Result Comment: A ra yue of aldosterone [...] years: 2.5-45.1 pg/mL Performed By: #### Kathi HENAO 1762-09 ####[facility] LABCLIA [id number] [place] [address] [place] PATIENT UPRIGHT OR SUPINE Upright Normal [facility] Comment on above: Order Comment: Speci men Type: BLOOD SPECIMENOrdering Facility: [facility] Address: [address] [place] [address] Performed By: #### Kathi HENAO 1762-09 ####[facility] LABCLIA [id number] [place] [address] [place] ANES POSTPROC EVALon 024 ANES POSTPROC EVAL Normal [facility] ANES PRE-OPon 01-28-2024 ANES PRE-OP Normal [facility] ARTERIAL BLOOD GASES WITH IO NIZED MAGNESIUMon 01-28-2024 Base deficit (BldA) [Moles/Vol] -3 mmol/L Low -2-0 [facility] Comment on above: Order Comment: Speci men Type: ARTERIAL BLOOD SPECIMENOrdering Facility: [facility] Address: [address] [place] [address] Performed By: #### A LLMG ####[facility] LABCLIA [id number] [place] [address] [place] Calcium.ionized (Bld) [Mass/Vol] 1.28 mmol/L Normal 1.08-1.30 [facility] Comment on above: Order Comment: Speci men Type: ARTERIAL BLOOD SPECIMENOrdering Facility: [facility] Address: [address] [place] [address] Performed By: #### A LLMG ####[facility] LABCLIA [id number] [place] [address] [place] Calcium.ionized adjusted to pH 7.4 (BldA) [Moles/Vol] 1.23 mmol/L Normal 1.08-1.30 [facility] Comment on above: Order Comment: Speci men Type: ARTERIAL BLOOD SPECIMENOrdering Facility: [facility] Address: [address] [place] [address] Performed By: #### A LLMG ####[facility] LABCLIA [id number] [place] [address] [place] Carboxyhemoglobin (BldA) [Mass fraction] 0.8 % Normal 0.0-2.0 [facility] Comment on above: Order Comment: Speci men Type: ARTERIAL BLOOD SPECIMENOrdering Facility: [facility] Address: [address] [place] [address] Result Comment: Carb oxyhemoglobin Reference Range for Smokers: 2.0-8.0% Performed By: #### A LLMG ####[facility] LABCLIA [id number] [place] [address] [place] CO2 (Bld) [Partial pressure] 45 mm Hg Normal 36-46 [facility] Comment on above: Order Comment: Speci men Type: ARTERIAL BLOOD SPECIMENOrdering Facility: [facility] Address: [address] [place] [address] Performed By: #### A LLMG ####[facility] LABCLIA [id number] [place] [address] [place] CO2 adjusted to patient's actual temperature (Bld) [Partial pressure] 45 mmHg Normal 36-46 [facility] Comment on above: Order Comment: Speci men Type: ARTERIAL BLOOD SPECIMENOrdering Facility: [facility] Address: [address] [place] [address] Performed By: #### A LLMG ####[facility] LABCLIA [id number] [place] [address] [place] Glucose [Mass/Vol] 94 mg/dL Normal 60-105 [facility] Comment on above: Order Comment: Speci men Type: ARTERIAL BLOOD SPECIMENOrdering Facility: [facility] Address: [address] [place] [address] Performed By: #### A LLMG ####[facility] LABCLIA [id number] [place] [address] [place] HCO3 (Bld) [Moles/Vol] 23 mmol/L Normal 22-26 [facility] Comment on above: Order Comment: Speci men Type: ARTERIAL BLOOD SPECIMENOrdering Facility: [facility] Address: [address] [place] [address] Performed By: #### A LLMG ####[facility] LABCLIA [id number] [place] [address] [place] Hematocrit (Bld) [Volume fraction] 42.6 % Normal 36.0-46.0 [facility] Comment on above: Order Comment: Speci men Type: ARTERIAL BLOOD SPECIMENOrdering Facility: [facility] Address: [address] [place] [address] Performed By: #### A LLMG ####[facility] LABCLIA [id number] [place] [address] [place] Hemoglobin (Bld) [Mass/Vol] 13.9 g/dL Normal 11.5-15.5 [facility] Comment on above: Order Comment: Speci men Type: ARTERIAL BLOOD SPECIMENOrdering Facility: [facility] Address: [address] [place] [address] Performed By: #### A LLMG ####[facility] LABCLIA [id number] [place] [address] [place] Lactate [Moles/Vol] 1.2 mmol/L Normal 0.5-2.2 [facility] Comment on above: Order Comment: Speci men Type: ARTERIAL BLOOD SPECIMENOrdering Facility: [facility] Address: [address] [place] [address] Performed By: #### A LLMG ####[facility] LABCLIA [id number] [place] [address] [place] Magnesium [Moles/Vol] 0.52 mmol/L Normal 0.45-0.60 [facility] Comment on above: Order Comment: Speci men Type: ARTERIAL BLOOD SPECIMENOrdering Facility: [facility] Address: [address] [place] [address] Performed By: #### A LLMG ####[facility] LABIA [id number] [place] [address] [place] Methemoglobin (Bld) [Mass fraction] 0.8 % Normal 0.0-1.5 [facility] Comment on above: Order Comment: Speci men Type: ARTERIAL BLOOD SPECIMENOrdering Facility: [facility] Address: [address] [place] [address] Performed By: #### A LLMG ####[facility] LABIA [id number] [place] [address] [place] Oxygen (Bld) [Partial pressure] 181 mm Hg High 85-95 [facility] Comment on above: Order Comment: Speci men Type: ARTERIAL BLOOD SPECIMENOrdering Facility: [facility] Address: [address] [place] [address] Performed By: #### A LLMG ####[facility] LABCLIA [id number] [place] [address] [place] Oxygen adjusted to patient's actual temperature (Bld) [Partial pressure] 181 mmHg High 85-95 [facility] Comment on above: Order Comment: Speci men Type: ARTERIAL BLOOD SPECIMENOrdering Facility: [facility] Address: [address] [place] [address] Performed By: #### A LLMG ####[facility] LABCLIA [id number] [place] [address] [place] Oxyhemoglobin (BldA) [Mass fraction] 98 % Normal 95-98 [facility] Comment on above: Order Comment: Speci men Type: ARTERIAL BLOOD SPECIMENOrdering Facility: [facility] Address: [address] [place] [address] Performed By: #### A LLMG ####[facility] LABCLIA [id number] [place] [address] [place] pH (Bld) 7.33 [pH] Low 7.35-7.45 [facility] Comment on above: Order Comment: Speci men Type: ARTERIAL BLOOD SPECIMENOrdering Facility: [facility] Address: [address] [place] [address] Performed By: #### A LLMG ####[facility] LABCLIA [id number] [place] [address] [place] pH adjusted to patient's actual temperature (Bld) 7.33 Low 7.35-7.45 [facility] Comment on above: Order Comment: Speci men Type: ARTERIAL BLOOD SPECIMENOrdering Facility: [facility] Address: [address] [place] [address] Performed By: #### A LLMG ####[facility] LABCLIA [id number] [place] [id number] [place] Potassium [Moles/Vol] 4.3 mmol/L Normal 3.5-5.0 [facility] Comment on above: Order Comment: Speci men Type: ARTERIAL BLOOD SPECIMENOrdering Facility: [facility] Address: [address] [place] [address] Performed By: #### A LLMG ####[facility] LABCLIA [id number] [place] [address] [place] Sodium [Moles/Vol] 139 mmol/L Normal 136-144 [facility] Comment on above: Order Comment: Speci men Type: ARTERIAL BLOOD SPECIMENOrdering Facility: [facility] Address: [address] [place] [address] Performed By: #### A LLMG ####[facility] LABCLIA [id number] [place] [address] [place] BRIEF OP NOTon 01-28-2024 BRIEF OP NOT Normal [facility] Basic metabolic 2000 panelon 01-28-2024 Anion gap [Moles/Vol] 11 mmol/L Normal 8-15 [facility] Comment on above: Order Comment: Speci men Type: BLOOD SPECIMENOrdering Facility: [facility] Address: [address] [place] [address] Performed By: #### 2 4321-2 ####[facility] LABCLIA [id number] [place] [address] [place] Calcium [Mass/Vol] 9.1 mg/dL Normal 8.5-10.2 [facility] Comment on above: Order Comment: Speci men Type: BLOOD SPECIMENOrdering Facility: [facility] Address: [address] [place] [address] Performed By: #### 2 4321-2 ####[facility] LABCLIA [id number] [place] [address] [place] Chloride [Moles/Vol] 107 mmol/L Normal 98-107 [facility] Comment on above: Order Comment: Speci men Type: BLOOD SPECIMENOrdering Facility: [facility] Address: [address] [place] [address] Performed By: #### 2 4321-2 ####[facility] LABCLIA [id number] [place] [address] [place] CO2 [Moles/Vol] 21 mmol/L Low 22-30 [facility] Comment on above: Order Comment: Speci men Type: BLOOD SPECIMENOrdering Facility: [facility] Address: [address] [place] [address] Performed By: #### 2 4321-2 ####[facility] LABCLIA [id number] [place] [address] [place] Creatinine [Mass/Vol] 0.70 mg/dL Normal 0.58-0.96 [facility] Comment on above: Order Comment: Speci men Type: BLOOD SPECIMENOrdering Facility: [facility] Address: [address] [place] [address] Performed By: #### 2 4321-2 ####[facility] LABCLIA [id number] [place] [address] [place] Creatinine and Glomerular filtration rate.predicted panel (S/P/Bld) 118 mL/min/1.73m??? Normal >=60 [facility] Comment on above: Order Comment: Speci men Type: BLOOD SPECIMENOrdering Facility: [facility] Address: [address] [place] [address] Result Comment: Rachel mated Glomerular Filtration Rate [...] actual GFR. Performed By: #### 2 4321-2 ####[facility] LABCLIA [id number] [place] [address] [place] Glucose [Mass/Vol] 114 mg/dL High 74-99 [facility] Comment on above: Order Comment: Speci men Type: BLOOD SPECIMENOrdering Facility: [facility] Address: [address] [place] [address] Result Comment: The [place] Diabetes Association (ADA) provides guidance for cutoff [...] Standards of Medical Care in Diabetes 2016, [place] [employer] Association. Diabetes Care. 2016.39(Suppl 1). Performed By: #### 2 4321-2 ####[facility] LABCLIA [id number] [place] [address] [place] Potassium [Moles/Vol] 4.7 mmol/L Normal 3.7-5.1 [facility] Comment on above: Order Comment: Speci men Type: BLOOD SPECIMENOrdering Facility: [facility] Address: [address] [place] [address] Performed By: #### 2 4321-2 ####[facility] LABCLIA [id number] [place] [address] [place] Sodium [Moles/Vol] 139 mmol/L Normal 136-144 [facility] Comment on above: Order Comment: Speci men Type: BLOOD SPECIMENOrdering Facility: [facility] Address: [address] [place] [address] Performed By: #### 2 1-2 ####[facility] LABCLIA [id number] [place] [address] [place] Urea nitrogen [Mass/Vol] 21 mg/dL Normal 7-21 [facility] Comment on above: Order Comment: Speci men Type: BLOOD SPECIMENOrdering Facility: [facility] Address: [address] [place] [address] Performed By: #### 2 4321-2 ####[facility] LABCLIA [id number] [place] [address] [place] Anion gap [Moles/Vol] 13 mmol/L Normal 8-15 [facility] Comment on above: Order Comment: Speci men Type: BLOOD SPECIMENOrdering Facility: [facility] Address: [address] [place] [address] Performed By: #### 2 4321-2 ####[facility] LABCLIA [id number] [place] [address] [place] Calcium [Mass/Vol] 9.7 mg/dL Normal 8.5-10.2 [facility] Comment on above: Order Comment: Speci men Type: BLOOD SPECIMENOrdering Facility: [facility] Address: [address] [place] [address] Performed By: #### 2 4321-2 ####[facility] LABCLIA [id number] [place] [address] [place] Chloride [Moles/Vol] 107 mmol/L Normal 98-107 [facility] Comment on above: Order Comment: Speci men Type: BLOOD SPECIMENOrdering Facility: [facility] Address: [address] [place], [place] [address] Performed By: #### 2 4321-2 ####[facility] LABCLIA [id number] [place] [address] [place] CO2 [Moles/Vol] 22 mmol/L Normal 22-30 [facility] Comment on above: Order Comment: Speci men Type: BLOOD SPECIMENOrdering Facility: [facility] Address: [address] [place] [address] Performed By: #### 2 4321-2 ####[facility] LABCLIA [id number] [place] [address] [place] Creatinine [Mass/Vol] 0.80 mg/dL Normal 0.58-0.96 [facility] Comment on above: Order Comment: Speci men Type: BLOOD SPECIMENOrdering Facility: [facility] Address: [address] [place] [address] Performed By: #### 2 4321-2 ####[facility] LABIA [id number] [place] [address] [place] Creatinine and Glomerular filtration rate.predicted panel (S/P/Bld) 101 mL/min/1.73m??? Normal >=60 [facility] Comment on above: Order Comment: Peter myles Type: BLOOD SPECIMENOrdering Facility: [facility] Address: [address] [place] [address] Result Comment: Rachel mated Glomerular Filtration Rate [...] actual GFR. Performed By: #### 2 4321-2 ####[facility] LABIA [id number] [place] [address] [place] Glucose [Mass/Vol] 80 mg/dL Normal 74-99 [facility] Comment on above: Order Comment: ePter myles Type: BLOOD SPECIMENOrdering Facility: [facility] Address: [address] [place] [address] Result Comment: The [place] Diabetes Association (ADA) provides guidance for cutoff [...] Standards of Medical Care in Diabetes 2016, [place] Diabetes Association. Diabetes Care. 2016.39(Suppl 1). Performed By: #### 2 4321-2 ####[facility] LABCLIA [id number] [place] [address] [place] Potassium [Moles/Vol] 4.2 mmol/L Normal 3.7-5.1 [facility] Comment on above: Order Comment: Speci men Type: BLOOD SPECIMENOrdering Facility: [facility] Address: [address] [place] [address] Performed By: #### 2 4321-2 ####[facility] LABCLIA [id number] [place] [address] [place] Sodium [Moles/Vol] 142 mmol/L Normal 136-144 [facility] Comment on above: Order Comment: Speci men Type: BLOOD SPECIMENOrdering Facility: [facility] Address: [address] [place] [address] Performed By: #### 2 4321-2 ####[facility] LABCLIA [id number] [place] [address] [place] Urea nitrogen [Mass/Vol] 29 mg/dL High 7-21 [facility] Comment on above: Order Comment: Speci men Type: BLOOD SPECIMENOrdering Facility: [facility] Address: [address] [place] [address] Performed By: #### 2 4321-2 ####[facility] LABCLIA [id number] [place] [address] [place] CASE MGT INIT ASSESon 2023 CASE MGT INIT ASSES Normal [facility] CBC W Auto Differential pane l (Bld)on 01-28-2024 Basophils (Bld) [#/Vol] 10*3/uL Normal <0.11 [facility] Comment on above: Order Comment: Speci men Type: BLOOD SPECIMENOrdering Facility: [facility] Address: [address] [place] [address] Performed By: #### 5 7021-8 ####[facility] LABCLIA [id number] [place] [address] [place] Basophils/100 WBC (Bld) 0.2 % Normal [facility] Comment on above: Order Comment: Speci men Type: BLOOD SPECIMENOrdering Facility: [facility] Address: [address] [place] [address] Performed By: #### 5 7021-8 ####[facility] LABCLIA [id number] [place] [address] [place] Differential cell count method Nom (Bld) Auto Normal [facility] Comment on above: Order Comment: Speci men Type: BLOOD SPECIMENOrdering Facility: [facility] Address: [address] [place] [address] Performed By: #### 5 7021-8 ####[facility] LABCLIA [id number] [place] [address] [place] Eosinophils (Bld) [#/Vol] 0.04 10*3/uL Normal <0.46 [facility] Comment on above: Order Comment: Speci men Type: BLOOD SPECIMENOrdering Facility: [facility] Address: [address] [place] [address] Performed By: #### 5 7021-8 ####[facility] LABCLIA [id number] [place] [address] [place] Eosinophils/100 WBC (Bld) 0.4 % Normal [facility] Comment on above: Order Comment: Speci men Type: BLOOD SPECIMENOrdering Facility: [facility] Address: [address] [place] [address] Performed By: #### 5 7021-8 ####[facility] LABIA [id number] [place] [address] [place] Erythrocyte distribution width (RBC) [Ratio] 14.2 % Normal 11.5-15.0 [facility] Comment on above: Order Comment: Speci men Type: BLOOD SPECIMENOrdering Facility: [facility] Address: [address] [place] [address] Performed By: #### 5 7021-8 ####[facility] LABCLIA [id number] [place] [address] [place] Hematocrit (Bld) [Volume fraction] 42.4 % Normal 36.0-46.0 [facility] Comment on above: Order Comment: Speci men Type: BLOOD SPECIMENOrdering Facility: [facility] Address: [address] [place] [address] Performed By: #### 5 7021-8 ####[facility] LABCLIA [id number] [place] [address] [place] Hemoglobin (Bld) [Mass/Vol] 14.4 g/dL Normal 11.5-15.5 [facility] Comment on above: Order Comment: Speci men Type: BLOOD SPECIMENOrdering Facility: [facility] Address: [address] [place] [address] Performed By: #### 5 7021-8 ####[facility] LABIA [id number] [place] [address] [place] Immature granulocytes (Bld) [#/Vol] 0.04 10*3/uL Normal <0.10 [facility] Comment on above: Order Comment: Speci men Type: BLOOD SPECIMENOrdering Facility: [facility] Address: [address] [place] [address] Performed By: #### 5 7021-8 ####[facility] LABCLIA [id number] [place] [address] [place] Immature granulocytes/100 WBC (Bld) 0.4 % Normal [facility] Comment on above: Order Comment: Speci men Type: BLOOD SPECIMENOrdering Facility: [facility] Address: [address] [place] [address] Performed By: #### 5 7021-8 ####[facility] LABCLIA [id number] [place] [address] [place] Lymphocytes (Bld) [#/Vol] 1.12 10*3/uL Normal 1.00-4.00 [facility] Comment on above: Order Comment: Speci men Type: BLOOD SPECIMENOrdering Facility: [facility] Address: [address] [place] [address] Performed By: #### 5 7021-8 ####[facility] LABCLIA [id number] [place] [address] [place] Lymphocytes/100 WBC (Bld) 10.1 % Normal [facility] Comment on above: Order Comment: Speci men Type: BLOOD SPECIMENOrdering Facility: [facility] Address: [address] [place] [address] Performed By: #### 5 7021-8 ####[facility] LABCLIA [id number] [place] [address] [place] MCH (RBC) [Entitic mass] 30.1 pg Normal 26.0-34.0 [facility] Comment on above: Order Comment: Speci men Type: BLOOD SPECIMENOrdering Facility: [facility] Address: [address] [place] [address] Performed By: #### 5 7021-8 ####[facility] LABCLIA [id number] [place] [address] [place] MCHC (RBC) [Mass/Vol] 34.0 g/dL Normal 30.5-36.0 [facility] Comment on above: Order Comment: Speci men Type: BLOOD SPECIMENOrdering Facility: [facility] Address: [address] [place] [address] Performed By: #### 5 7021-8 ####[facility] LABCLIA [id number] [place] [address] [place] MCV (RBC) [Entitic vol] 88.5 fL Normal 80.0-100.0 [facility] Comment on above: Order Comment: Speci men Type: BLOOD SPECIMENOrdering Facility: [facility] Address: [address] [place] [address] Performed By: #### 5 7021-8 ####[facility] LABCLIA [id number] [place] [address] [place] Monocytes (Bld) [#/Vol] 0.22 10*3/uL Normal <0.87 [facility] Comment on above: Order Comment: Speci men Type: BLOOD SPECIMENOrdering Facility: [facility] Address: [address] [place] [address] Performed By: #### 5 7021-8 ####[facility] LABCLIA [id number] [place] [address] [place] Monocytes/100 WBC (Bld) 2.0 % Normal [facility] Comment on above: Order Comment: Speci men Type: BLOOD SPECIMENOrdering Facility: [facility] Address: [address] [place] [address] Performed By: #### 5 7021-8 ####[facility] LABCLIA [id number] [place] [address] [place] Neutrophils (Bld) [#/Vol] 9.64 10*3/uL High 1.45-7.50 [facility] Comment on above: Order Comment: Speci men Type: BLOOD SPECIMENOrdering Facility: [facility] Address: [address] [place] [address] Performed By: #### 5 7021-8 ####[facility] LABCLIA [id number] [place] [address] [place] Neutrophils/100 WBC (Bld) 86.9 % Normal [facility] Comment on above: Order Comment: Speci men Type: BLOOD SPECIMENOrdering Facility: [facility] Address: [address] [place] [address] Performed By: #### 5 7021-8 ####[facility] LABCLIA [id number] [place] [address] [place] Nucleated RBC (Bld) [#/Vol] 10*3/uL Normal <0.01 [facility] Comment on above: Order Comment: Speci men Type: BLOOD SPECIMENOrdering Facility: [facility] Address: [address] [place] [address] Performed By: #### 5 7021-8 ####[facility] LABCLIA [id number] [place] [address] [place] Nucleated RBC/100 WBC (Bld) [Ratio] 0.0 /100 WBC Normal [facility] Comment on above: Order Comment: Speci men Type: BLOOD SPECIMENOrdering Facility: [facility] Address: [address] [place] [address] Performed By: #### 5 7021-8 ####[facility] LABIA [id number] [place] [address] [place] Platelet mean volume (Bld) [Entitic vol] 11.4 fL Normal 9.0-12.7 [facility] Comment on above: Order Comment: Speci men Type: BLOOD SPECIMENOrdering Facility: [facility] Address: [address] [place] [address] Performed By: #### 5 7021-8 ####[facility] LABIA [id number] [place] [address] [place] Platelets (Bld) [#/Vol] 158 10*3/uL Normal 150-400 [facility] Comment on above: Order Comment: Speci men Type: BLOOD SPECIMENOrdering Facility: [facility] Address: [address] [place] [address] Performed By: #### 5 7021-8 ####[facility] LABCLIA [id number] [place] [address] [place] RBC (Bld) [#/Vol] 4.79 10*6/uL Normal 3.90-5.20 [facility] Comment on above: Order Comment: Speci men Type: BLOOD SPECIMENOrdering Facility: [facility] Address: [address] [place] [address] Performed By: #### 5 7021-8 ####[facility] LABCLIA [id number] [place] [address] [place] WBC (Bld) [#/Vol] 11.08 10*3/uL High 3.70-11.00 [facility] Comment on above: Order Comment: Speci men Type: BLOOD SPECIMENOrdering Facility: [facility] Address: [address] [place] [address] Performed By: #### 5 7021-8 ####[facility] LABCLIA [id number] [place] [address] [place] OPERATIVE NOon 01-28-2024 OPERATIVE NO Normal [facility] SURGICAL PATHOLOGYon 024 CASE REPORT Normal [facility] Comment on above: Order Comment: Speci men Type: TISSUE SPECIMENOrdering Facility: [facility] Address: [address] [place] [address] Result Comment: [facility]urg [facility] Pathology Report Case: [id number] Provider: Mario Santiago MD Collected: 01/28/2024 05:14 PMOrdering Location: Admitting Received: 01/28/2024 05:57 PMPathologist: Carlos Myers MDSpecimen: Adrenal Gland, Left, Resection Performed By: #### S ####[facility] LABCLIA [id number] [place] [id number] [place] CLINICAL HISTORY Normal [facility] Comment on above: Order Comment: Speci men Type: TISSUE SPECIMENOrdering Facility: [facility] Address: [address] [place] [address] Result Comment: Pre- op diagnosis: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 A drenal gland, left, adrenalectomy:- Adrenal cortical adenoma (2.1 cm). Performed By: #### S ####[facility] LABIA [id number] [address] OF [facility] FINAL PERFORMING LAB Normal [facility] Comment on above: Order Comment: Speci men Type: TISSUE SPECIMENOrdering Facility: [facility] Address: [address] [place] [address] Result Comment: Diag nostic interpretation performed at [facility], [address] [place] [address] CLIA# [id number] Director: Benito Cheng M.D. Performed By: #### S ####[facility] LABIA [id number] [address] STATES [facility] GROSS DESCRIPTION Normal [facility] Comment on above: Order Comment: Speci men Type: TISSUE SPECIMENOrdering Facility: [facility] Address: [address] [place] [address] Result Comment: A. A drenal Gland, Left, [...] adrenal tissue adjacent to the mass appears unremarkable.Bag Patcher sections are submitted as follows:D8-M5-iakiky massA3- mass to adjacent uninvolved adrenalA4-uninvolved adrenalGross examination performed at [facility], [address] [place] [address] CLIA # [id number] 01/29/24 12:08 PM Performed By: #### S ####[facility] LABCLIA [id number] [place] [address] [place] Basic metabolic 2000 panelon 01-27-2024 Anion gap [Moles/Vol] 11 mmol/L Normal 8-15 [facility] Comment on above: Order Comment: Speci men Type: BLOOD SPECIMENOrdering Facility: [facility] Address: [address] [place] [address] Performed By: #### 2 4321-2, 27702-02, ####[facility] LABCLIA [id number] [place] [address] [place] Calcium [Mass/Vol] 9.3 mg/dL Normal 8.5-10.2 [facility] Comment on above: Order Comment: Speci men Type: BLOOD SPECIMENOrdering Facility: [facility] Address: [address] [place] [address] Performed By: #### 2 4321-2, 2776-08, ####[facility] LABCLIA [id number] [place] [address] [place] Chloride [Moles/Vol] 110 mmol/L High 98-107 [facility] Comment on above: Order Comment: Speci men Type: BLOOD SPECIMENOrdering Facility: [facility] Address: [address] [place] [address] Performed By: #### 2 4321-2, 2776-08, ####[facility] LABCLIA [id number] [address] [address] [place] CO2 [Moles/Vol] 20 mmol/L Low 22-30 [facility] Comment on above: Order Comment: Speci men Type: BLOOD SPECIMENOrdering Facility: [facility] Address: [address] [place] [address] Performed By: #### 2 4321-2, 2776-08, ####[facility] LABCLIA [id number] [facility] [address] [address] [place] Creatinine [Mass/Vol] 0.87 mg/dL Normal 0.58-0.96 [facility] Comment on above: Order Comment: Speci men Type: BLOOD SPECIMENOrdering Facility: [facility] Address: [address] [place] [address] Performed By: #### 2 4321-2, 2776-08, ####[facility] LABCLIA [id number] [place] [address] [place] Creatinine and Glomerular filtration rate.predicted panel (S/P/Bld) 91 mL/min/1.73m??? Normal >=60 [facility] Comment on above: Order Comment: Speci men Type: BLOOD SPECIMENOrdering Facility: [facility] Address: [address] [place] [address] Result Comment: Rachel mated Glomerular Filtration Rate [...] actual GFR. Performed By: #### 2 4321-2, 2776-08, ####[facility] LABCLIA [id number] [place] [address] [place] Glucose [Mass/Vol] 87 mg/dL Normal 74-99 [facility] Comment on above: Order Comment: Speci men Type: BLOOD SPECIMENOrdering Facility: [facility] Address: [address] [place] [address] Result Comment: The [place] Diabetes Association (ADA) provides guidance for cutoff [...] Standards of Medical Care in Diabetes 2016, [place] Diabetes Association. Diabetes Care. 2016.39(Suppl 1). Performed By: #### 2 4321-2, 2776-08, ####[facility] LABCLIA [id number] [place] [address] [place] Potassium [Moles/Vol] 4.8 mmol/L Normal 3.7-5.1 [facility] Comment on above: Order Comment: Speci men Type: BLOOD SPECIMENOrdering Facility: [facility] Address: [address] [place] [address] Performed By: #### 2 4321-2, 2776-08, ####[facility] LABIA [id number] [place] [address] [place] Sodium [Moles/Vol] 141 mmol/L Normal 136-144 [facility] Comment on above: Order Comment: Speci men Type: BLOOD SPECIMENOrdering Facility: [facility] Address: [address] [place] [address] Performed By: #### 2 4321-2, 2776-08, ####[facility] LABCLIA [id number] [address] [address] [place] Urea nitrogen [Mass/Vol] 35 mg/dL High 7-21 [facility] Comment on above: Order Comment: Speci men Type: BLOOD SPECIMENOrdering Facility: [facility] Address: [address] [place] [address] Performed By: #### 2 4321-2, 2777-1, 63482-6 ####[facility] LABCLIA [id number] [place] [address] [place] CBC W Auto Differential pane l (Bld)on 01-27-2024 Basophils (Bld) [#/Vol] 0.03 10*3/uL Normal <0.11 [facility] Comment on above: Order Comment: Speci men Type: BLOOD SPECIMENOrdering Facility: [facility] Address: [address] [place] [address] Performed By: #### 5 7021-8 ####[facility] LABCLIA [id number] [place] [address] [place] Basophils/100 WBC (Bld) 0.4 % Normal [facility] Comment on above: Order Comment: Speci men Type: BLOOD SPECIMENOrdering Facility: [facility] Address: [address] [place] [address] Performed By: #### 5 7021-8 ####[facility] LABCLIA [id number] [place] [address] [place] Differential cell count method Nom (Bld) Auto Normal [facility] Comment on above: Order Comment: Speci men Type: BLOOD SPECIMENOrdering Facility: [facility] Address: [address] [place] [address] Performed By: #### 5 7021-8 ####[facility] LABCLIA [id number] [place] [address] [place] Eosinophils (Bld) [#/Vol] 0.09 10*3/uL Normal <0.46 [facility] Comment on above: Order Comment: Speci men Type: BLOOD SPECIMENOrdering Facility: [facility] Address: [address] [place] [address] Performed By: #### 5 7021-8 ####[facility] LABCLIA [id number] [place] [address] [place] Eosinophils/100 WBC (Bld) 1.1 % Normal [facility] Comment on above: Order Comment: Speci men Type: BLOOD SPECIMENOrdering Facility: [facility] Address: [address] [place] [address] Performed By: #### 5 7021-8 ####[facility] LABCLIA [id number] [place] [address] [place] Erythrocyte distribution width (RBC) [Ratio] 14.4 % Normal 11.5-15.0 [facility] Comment on above: Order Comment: Speci men Type: BLOOD SPECIMENOrdering Facility: [facility] Address: [address] [place] [address] Performed By: #### 5 7021-8 ####[facility] LABCLIA [id number] [place] [address] [place] Hematocrit (Bld) [Volume fraction] 44.1 % Normal 36.0-46.0 [facility] Comment on above: Order Comment: Speci men Type: BLOOD SPECIMENOrdering Facility: [facility] Address: [address] [place] [address] Performed By: #### 5 7021-8 ####[facility] LABCLIA [id number] [place] [address] [place] Hemoglobin (Bld) [Mass/Vol] 14.3 g/dL Normal 11.5-15.5 [facility] Comment on above: Order Comment: Speci men Type: BLOOD SPECIMENOrdering Facility: [facility] Address: [address] [place] [address] Performed By: #### 5 7021-8 ####[facility] LABCLIA [id number] [place] [address] [place] Immature granulocytes (Bld) [#/Vol] 10*3/uL Normal <0.10 [facility] Comment on above: Order Comment: Speci men Type: BLOOD SPECIMENOrdering Facility: [facility] Address: [address] [place] [address] Performed By: #### 5 7021-8 ####[facility] LABCLIA [id number] [place] [address] [place] Immature granulocytes/100 WBC (Bld) 0.2 % Normal [facility] Comment on above: Order Comment: Speci men Type: BLOOD SPECIMENOrdering Facility: [facility] Address: [address] [place] [address] Performed By: #### 5 7021-8 ####[facility] LABCLIA [id number] [place] [address] [place] Lymphocytes (Bld) [#/Vol] 2.18 10*3/uL Normal 1.00-4.00 [facility] Comment on above: Order Comment: Speci men Type: BLOOD SPECIMENOrdering Facility: [facility] Address: [address] [place] [address] Performed By: #### 5 7021-8 ####[facility] LABCLIA [id number] [place] [address] [place] Lymphocytes/100 WBC (Bld) 26.9 % Normal [facility] Comment on above: Order Comment: Speci men Type: BLOOD SPECIMENOrdering Facility: [facility] Address: [address] [place] [address] Performed By: #### 5 7021-8 ####[facility] LABCLIA [id number] [place] [address] [place] MCH (RBC) [Entitic mass] 28.9 pg Normal 26.0-34.0 [facility] Comment on above: Order Comment: Speci men Type: BLOOD SPECIMENOrdering Facility: [facility] Address: [address] [place] [address] Performed By: #### 5 7021-8 ####[facility] LABCLIA [id number] [place] [address] [place] MCHC (RBC) [Mass/Vol] 32.4 g/dL Normal 30.5-36.0 [facility] Comment on above: Order Comment: Speci men Type: BLOOD SPECIMENOrdering Facility: [facility] Address: [address] [place] [address] Performed By: #### 5 7021-8 ####[facility] LABCLIA [id number] [place] [address] [place] MCV (RBC) [Entitic vol] 89.3 fL Normal 80.0-100.0 [facility] Comment on above: Order Comment: Speci men Type: BLOOD SPECIMENOrdering Facility: [facility] Address: [address] [place] [address] Performed By: #### 5 7021-8 ####[facility] LABIA [id number] [place] [address] [place] Monocytes (Bld) [#/Vol] 0.39 10*3/uL Normal <0.87 [facility] Comment on above: Order Comment: Speci men Type: BLOOD SPECIMENOrdering Facility: [facility] Address: [address] [place] [address] Performed By: #### 5 7021-8 ####[facility] LABCLIA [id number] [place] [address] [place] Monocytes/100 WBC (Bld) 4.8 % Normal [facility] Comment on above: Order Comment: Speci men Type: BLOOD SPECIMENOrdering Facility: [facility] Address: [address] [place] [address] Performed By: #### 5 7021-8 ####[facility] LABCLIA [id number] [place] [address] [place] Neutrophils (Bld) [#/Vol] 5.40 10*3/uL Normal 1.45-7.50 [facility] Comment on above: Order Comment: Speci men Type: BLOOD SPECIMENOrdering Facility: [facility] Address: [address] [place] [address] Performed By: #### 5 7021-8 ####[facility] LABCLIA [id number] [place] [address] [place] Neutrophils/100 WBC (Bld) 66.6 % Normal [facility] Comment on above: Order Comment: Speci men Type: BLOOD SPECIMENOrdering Facility: [facility] Address: [address] [place] [address] Performed By: #### 5 7021-8 ####[facility] LABCLIA [id number] [place] [address] [place] Nucleated RBC (Bld) [#/Vol] 10*3/uL Normal <0.01 [facility] Comment on above: Order Comment: Speci men Type: BLOOD SPECIMENOrdering Facility: [facility] Address: [address] [place] [address] Performed By: #### 5 7021-8 ####[facility] LABCLIA [id number] [place] [address] [place] Nucleated RBC/100 WBC (Bld) [Ratio] 0.0 /100 WBC Normal [facility] Comment on above: Order Comment: Speci men Type: BLOOD SPECIMENOrdering Facility: [facility] Address: [address] [place] [address] Performed By: #### 5 7021-8 ####[facility] LABCLIA [id number] [place] [address] [place] Platelet mean volume (Bld) [Entitic vol] 12.5 fL Normal 9.0-12.7 [facility] Comment on above: Order Comment: Speci men Type: BLOOD SPECIMENOrdering Facility: [facility] Address: [address] [place] [address] Performed By: #### 5 7021-8 ####[facility] LABIA [id number] [place] [address] [place] Platelets (Bld) [#/Vol] 175 10*3/uL Normal 150-400 [facility] Comment on above: Order Comment: Speci men Type: BLOOD SPECIMENOrdering Facility: [facility] Address: [address] [place] [address] Performed By: #### 5 7021-8 ####[facility] [id number] [place] [address] [place] RBC (Bld) [#/Vol] 4.94 10*6/uL Normal 3.90-5.20 [facility] Comment on above: Order Comment: Speci men Type: BLOOD SPECIMENOrdering Facility: [facility] Address: [address] [place] [address] Performed By: #### 5 7021-8 ####[facility] [id number] [place] [address] [place] WBC (Bld) [#/Vol] 8.11 10*3/uL Normal 3.70-11.00 [facility] Comment on above: Order Comment: Speci men Type: BLOOD SPECIMENOrdering Facility: [facility] Address: [address] [place] [address] Performed By: #### 5 7021-8 ####[facility] [id number] [place] [id number] [place] ECG COMPLETEon 01-27-2024 ECG COMPLETE Normal [facility] HCG Preg Ur Qlon 01-27-2024 HCG ( test) Ql (U) Negative Normal Negative [facility] Comment on above: Order Comment: Speci men Type: URINE SPECIMENOrdering Facility: [facility] Address: [address] [place] [address] Result Comment: This test is intended to aid in the early detection of . Very dilute urine samples, as indicated by a low specific gravity, may not contain agricultural sales representative levels of hCG. This test detects [...] for . Performed By: #### 2 106-3 ####[facility] LABIA [id number] [place] [address] [place] Magnesium SerPl-mCncon 01-26 Magnesium [Mass/Vol] 2.1 mg/dL Normal 1.7-2.3 [facility] Comment on above: Order Comment: Peter myles Type: BLOOD SPECIMENOrdering Facility: [facility] Address: [address] [place] [address] Performed By: #### 2 4321-2, 2777-1, 70714-2 ####[facility] LABIA [id number] [place] [address] [place] PT panel Coag (PPP)on 2023 INR Coag (PPP) [Relative time] 1.0 {INR} Normal 0.9-1.3 [facility] Comment on above: Order Comment: Peter myles Type: BLOOD SPECIMENOrdering Facility: [facility] Address: [address] [place] [address] Result Comment: Trice min K Antagonist (VKA) Therapeutic Range: INR 2 to 3 (Target INR of 2.5)Note: For patients treated with VKA drugs, such as warfarin, the [place] [employer] 2012 Guideline recommends [...] 3).Gracie CHANDLER, et al. Chest 2012, 141:7S-47SBenitez RA, et al. [facility] 2017, 70: 252-289 Performed By: #### 3 4528-0 ####[facility] [id number] [place] [id number] [place] PT Coag (PPP) [Time] 10.9 s Normal 9.7-13.0 [facility] Comment on above: Order Comment: Speci men Type: BLOOD SPECIMENOrdering Facility: [facility] Address: [address] [place] [address] Performed By: #### 3 4528-0 ####[facility] [id number] [place] [id number] [place] Phosphate SerPl-mCncon 01-26 Phosphate [Mass/Vol] 2.9 mg/dL Normal 2.7-4.8 [facility] Comment on above: Order Comment: Speci men Type: BLOOD SPECIMENOrdering Facility: [facility] Address: [address] [place] [address] Performed By: #### 2 4321-2, 2777-1, 47971-4 ####[facility] [id number] [place] [id number] [place] Albumin SerPl-mCncon 17-2 024 Albumin [Mass/Vol] 4.6 g/dL Normal 3.9-4.9 [facility] Comment on above: Order Comment: Speci men Type: BLOOD SPECIMENOrdering Facility: [facility] Address: [address] [place] [address] Performed By: #### 1 9123-9, 55901-5, 1751, 2776-08 ####[facility] LABCLIA [id number] [place] [address] Basic metabolic 2000 panelon 01-20-2024 Anion gap [Moles/Vol] 8 mmol/L Normal 8-15 [facility] Comment on above: Order Comment: Speci men Type: BLOOD SPECIMENOrdering Facility: [facility] Address: [address] [place] [address] Performed By: #### 1 9123-9, 49909-0, 1751-02, 2776-08 ####[facility]JLOBIT[facility] LABCLIA [id number] [place] [address] Calcium [Mass/Vol] 9.7 mg/dL Normal 8.5-10.2 [facility] Comment on above: Order Comment: Speci men Type: BLOOD SPECIMENOrdering Facility: [facility] Address: [address] [place] [address] Performed By: #### 1 9123-9, 54606-0, 1751-02, 2776-08 ####[facility] LABIA [id number] [place] [address] Chloride [Moles/Vol] 107 mmol/L Normal 98-107 [facility] Comment on above: Order Comment: Speci men Type: BLOOD SPECIMENOrdering Facility: [facility] Address: [address] [place] [address] Performed By: #### 1 9123-9, 70161-2, 1751-02, 2776-08 ####[facility]JLOBIT[facility] LABIA [id number] [place] [address] CO2 [Moles/Vol] 25 mmol/L Normal 22-30 [facility] Comment on above: Order Comment: Speci men Type: BLOOD SPECIMENOrdering Facility: [facility] Address: [address] [place], [place] [id number] Performed By: #### 1 9123-9, 04326-8, 1751-02, 2776- ####[facility] LABCLIA [id number] [place] [address] Creatinine [Mass/Vol] 0.96 mg/dL Normal 0.58-0.96 [facility] Comment on above: Order Comment: Speci men Type: BLOOD SPECIMENOrdering Facility: [facility] Address: [address] [place] [address] Performed By: #### 1 9123-9, 92164-7, 1751-02, 2776-08 ####[facility] LABCLIA [id number] [place] [address] Creatinine and Glomerular filtration rate.predicted panel (S/P/Bld) 81 mL/min/1.73m??? Normal >=60 [facility] Comment on above: Order Comment: Peter shar Type: BLOOD SPECIMENOrdering Facility: [facility] Address: [address] [place] [address] Result Comment: Rachel mated Glomerular Filtration Rate [...] actual GFR. Performed By: #### 1 9123-9, 10730-0, 1751-02, 2776-08 ####[facility] [id number] [place] [address] Glucose [Mass/Vol] 88 mg/dL Normal 74-99 [facility] Comment on above: Order Comment: Speci men Type: BLOOD SPECIMENOrdering Facility: [facility] Address: [address] [id number] Result Comment: The [place] Diabetes Association (ADA) provides guidance for cutoff [...] Standards of Medical Care in Diabetes 2016, [place] Diabetes Association. Diabetes Care. 2016.39(Suppl 1). Performed By: #### 1 9123-9, 77794-4, 1751-02, 2776- ####[facility] [id number] [place] [address] Potassium [Moles/Vol] 3.4 mmol/L Low 3.7-5.1 [facility] Comment on above: Order Comment: Speci men Type: BLOOD SPECIMENOrdering Facility: [facility] Address: [address] [place] [address] Performed By: #### 1 9123-9, 63218-2, 1751-02, 2776- ####[facility] [id number] [place] [address] Sodium [Moles/Vol] 140 mmol/L Normal 136-144 [facility] Comment on above: Order Comment: Speci shar Type: BLOOD SPECIMENOrdering Facility: [facility] Address: [address] [place] [address] Performed By: #### 1 9123-9, 36853-2, 1751-02, 2776- ####[facility] [id number] [place] [address] Urea nitrogen [Mass/Vol] 28 mg/dL High 7-21 [facility] Comment on above: Order Comment: Speci men Type: BLOOD SPECIMENOrdering Facility: [facility] Address: [address] [place] [address] Performed By: #### 1 9123-9, 11146-0, 1751-02, 2776-1 ####[facility] [id number] [place] [address] CBC W Auto Differential pane l (Bld)on 01-20-2024 Basophils (Bld) [#/Vol] 0.04 10*3/uL Normal <0.11 [facility] Comment on above: Order Comment: Speci men Type: BLOOD SPECIMENOrdering Facility: [facility] Address: [address] [place] [address] Performed By: #### 5 7021-8 ####[facility] [id number] [place] [address] Basophils/100 WBC (Bld) 0.5 % Normal [facility] Comment on above: Order Comment: Speci men Type: BLOOD SPECIMENOrdering Facility: [facility] Address: [address] [place] [address] Performed By: #### 5 7021-8 ####[facility] [id number] [place] [address] Differential cell count method Nom (Bld) Auto Normal [facility] Comment on above: Order Comment: Speci men Type: BLOOD SPECIMENOrdering Facility: [facility] Address: [address] [place] [address] Performed By: #### 5 7021-8 ####[facility] [id number] [place] [address] Eosinophils (Bld) [#/Vol] 0.15 10*3/uL Normal <0.46 [facility] Comment on above: Order Comment: Speci men Type: BLOOD SPECIMENOrdering Facility: [facility] Address: [address] [place] [address] Performed By: #### 5 7021-8 ####[facility] [id number] [place] [address] Eosinophils/100 WBC (Bld) 1.8 % Normal [facility] Comment on above: Order Comment: Speci men Type: BLOOD SPECIMENOrdering Facility: [facility] Address: [address] [place] [address] Performed By: #### 5 7021-8 ####[facility] [id number] [place] [address] Erythrocyte distribution width (RBC) [Ratio] 14.0 % Normal 11.5-15.0 [facility] Comment on above: Order Comment: Speci men Type: BLOOD SPECIMENOrdering Facility: [facility] Address: [address] [place] [address] Performed By: #### 5 7021-8 ####[facility] [id number] [place] [address] Hematocrit (Bld) [Volume fraction] 42.0 % Normal 36.0-46.0 [facility] Comment on above: Order Comment: Speci men Type: BLOOD SPECIMENOrdering Facility: [facility] Address: [address] [place] [address] Performed By: #### 5 7021-8 ####[facility] [id number] [place] [address] Hemoglobin (Bld) [Mass/Vol] 13.8 g/dL Normal 11.5-15.5 [facility] Comment on above: Order Comment: Speci men Type: BLOOD SPECIMENOrdering Facility: [facility] Address: [address] [place] [address] Performed By: #### 5 7021-8 ####[facility] [id number] [place] [address] Immature granulocytes (Bld) [#/Vol] 10*3/uL Normal <0.10 [facility] Comment on above: Order Comment: Speci men Type: BLOOD SPECIMENOrdering Facility: [facility] Address: [address] [place] [address] Performed By: #### 5 7021-8 ####[facility] [id number] [place] [address] Immature granulocytes/100 WBC (Bld) 0.2 % Normal [facility] Comment on above: Order Comment: Speci men Type: BLOOD SPECIMENOrdering Facility: [facility] Address: [address] [place] [address] Performed By: #### 5 7021-8 ####[facility] [id number] [place] [address] Lymphocytes (Bld) [#/Vol] 2.52 10*3/uL Normal 1.00-4.00 [facility] Comment on above: Order Comment: Speci men Type: BLOOD SPECIMENOrdering Facility: [facility] Address: [address] [place] [address] Performed By: #### 5 7021-8 ####[facility] [id number] [place] [address] Lymphocytes/100 WBC (Bld) 30.5 % Normal [facility] Comment on above: Order Comment: Speci men Type: BLOOD SPECIMENOrdering Facility: [facility] Address: [address] [place] [address] Performed By: #### 5 7021-8 ####[facility] [id number] [place] [address] MCH (RBC) [Entitic mass] 28.8 pg Normal 26.0-34.0 [facility] Comment on above: Order Comment: Speci men Type: BLOOD SPECIMENOrdering Facility: [facility] Address: [address] [place] [address] Performed By: #### 5 7021-8 ####[facility] [id number] [place] [address] MCHC (RBC) [Mass/Vol] 32.9 g/dL Normal 30.5-36.0 [facility] Comment on above: Order Comment: Speci men Type: BLOOD SPECIMENOrdering Facility: [facility] Address: [address] [place] [address] Performed By: #### 5 7021-8 ####[facility] [id number] [place] [address] MCV (RBC) [Entitic vol] 87.7 fL Normal 80.0-100.0 [facility] Comment on above: Order Comment: Speci men Type: BLOOD SPECIMENOrdering Facility: [facility] Address: [address] [place] [address] Performed By: #### 5 7021-8 ####[facility] [id number] [place] [address] Monocytes (Bld) [#/Vol] 0.43 10*3/uL Normal <0.87 [facility] Comment on above: Order Comment: Speci men Type: BLOOD SPECIMENOrdering Facility: [facility] Address: [address] [place] [address] Performed By: #### 5 7021-8 ####[facility] [id number] [place] [address] Monocytes/100 WBC (Bld) 5.2 % Normal C [facility] Comment on above: Order Comment: Speci men Type: BLOOD SPECIMENOrdering Facility: [facility] Address: [address] [place] [address] Performed By: #### 5 7021-8 ####[facility] [id number] [place] [address] Neutrophils (Bld) [#/Vol] 5.09 10*3/uL Normal 1.45-7.50 [facility] Comment on above: Order Comment: Speci men Type: BLOOD SPECIMENOrdering Facility: [facility] Address: [address] [place] [address] Performed By: #### 5 7021-8 ####[facility] [id number] [place] [address] Neutrophils/100 WBC (Bld) 61.8 % Normal [facility] Comment on above: Order Comment: Speci men Type: BLOOD SPECIMENOrdering Facility: [facility] Address: [address] [place] [address] Performed By: #### 5 7021-8 ####[facility] [id number] [place] [address] Nucleated RBC (Bld) [#/Vol] 10*3/uL Normal <0.01 [facility] Comment on above: Order Comment: Speci men Type: BLOOD SPECIMENOrdering Facility: [facility] Address: [address] [place] [address] Performed By: #### 5 7021-8 ####[facility] [id number] [place] [address] Nucleated RBC/100 WBC (Bld) [Ratio] 0.0 /100 WBC Normal [facility] Comment on above: Order Comment: Speci men Type: BLOOD SPECIMENOrdering Facility: [facility] Address: [address] [place] [address] Performed By: #### 5 7021-8 ####[facility] [id number] [place] [address] Platelet mean volume (Bld) [Entitic vol] 11.8 fL Normal 9.0-12.7 [facility] Comment on above: Order Comment: Speci men Type: BLOOD SPECIMENOrdering Facility: [facility] Address: [address] [place] [address] Performed By: #### 5 7021-8 ####[facility] [id number] [place] [address] Platelets (Bld) [#/Vol] 181 10*3/uL Normal 150-400 [facility] Comment on above: Order Comment: Speci men Type: BLOOD SPECIMENOrdering Facility: [facility] Address: [address] [place] [address] Performed By: #### 5 7021-8 ####[facility] [id number] [place] [address] RBC (Bld) [#/Vol] 4.79 10*6/uL Normal 3.90-5.20 [facility] Comment on above: Order Comment: Speci men Type: BLOOD SPECIMENOrdering Facility: [facility] Address: [address] [place] [address] Performed By: #### 5 7021-8 ####[facility] [id number] [place] [address] WBC (Bld) [#/Vol] 8.25 10*3/uL Normal 3.70-11.00 [facility] Comment on above: Order Comment: Speci men Type: BLOOD SPECIMENOrdering Facility: [facility] Address: [address] [place] [address] Performed By: #### 5 7021-8 ####[facility] [id number] [place] [address] HISTORY PHYSICALon 4 HISTORY PHYSICAL Normal [facility] Magnesium SerPl-mCncon 01-19 Magnesium [Mass/Vol] 2.2 mg/dL Normal 1.7-2.3 [facility] Comment on above: Order Comment: Speci men Type: BLOOD SPECIMENOrdering Facility: [facility] Address: [address] [place] [address] Performed By: #### 1 9123-9, 00786-5, 175-7, 2777-1 ####[facility] [id number] [place] [address] Phosphate SerPl-mCncon 01-19 Phosphate [Mass/Vol] 4.1 mg/dL Normal 2.7-4.8 [facility] Comment on above: Order Comment: Speci men Type: BLOOD SPECIMENOrdering Facility: [facility] Address: [address] [place] [address] Performed By: #### 1 9123-9, 47275-4, 175-7, 2777-1 ####[facility] [id number] [place] [address] TYPE AND SCREEN,30 DAYon ABO B Normal [facility] Comment on above: Order Comment: Speci men Type: BLOOD SPECIMENOrdering Facility: [facility] Address: [address] [place] [address] Performed By: #### T SCR30 ####[facility] BANKCLIA [id number] [place] [address] [place] HISTORICAL AB SCR STATUS Negative Normal [facility] Comment on above: Order Comment: Speci men Type: BLOOD SPECIMENOrdering Facility: [facility] Address: [address] [place] [address] Performed By: #### T SCR30 ####[facility] BANKCLIA [id number] [place] [address] [place] Rh Nom (Bld) Negative Normal [facility] Comment on above: Order Comment: Speci men Type: BLOOD SPECIMENOrdering Facility: [facility] Address: [address] [place] [address] Performed By: #### T SCR30 ####[facility] BANKCLIA [id number] [place] [address] [place] Magnesium SerPl-ncon 01-15 Magnesium [Mass/Vol] 2.3 mg/dL Normal 1.7-2.3 [facility] Comment on above: Order Comment: Speci men Type: BLOOD SPECIMENOrdering Facility: [facility] Address: [address] [place] [address] Performed By: #### 2 4362-6, 47342-1 ####[facility] [id number] [place] [address] Renal function 2000 panelon 01-16-2024 Albumin [Mass/Vol] 4.7 g/dL Normal 3.9-4.9 [facility] Comment on above: Order Comment: Speci men Type: BLOOD SPECIMENOrdering Facility: [facility] Address: [address] [place] [address] Performed By: #### 2 4362-6, ####[facility] [id number] [place] [address] Anion gap [Moles/Vol] 9 mmol/L Normal 8-15 [facility] Comment on above: Order Comment: Speci men Type: BLOOD SPECIMENOrdering Facility: [facility] Address: [address] [place] [address] Performed By: #### 2 4362-6, ####[facility] LABCLIA [id number] [place] [address] Calcium [Mass/Vol] 10.2 mg/dL Normal 8.5-10.2 [facility] Comment on above: Order Comment: Speci men Type: BLOOD SPECIMENOrdering Facility: [facility] Address: [address] [place] [address] Performed By: #### 2 4362-6, ####[facility]IANNJLOBITO [facility]CLIA [id number] [place] [address] Chloride [Moles/Vol] 108 mmol/L High 98-107 [facility] Comment on above: Order Comment: Speci men Type: BLOOD SPECIMENOrdering Facility: [facility] Address: [address] [place] [address] Performed By: #### 2 4362-6, ####[facility] [id number] [place] [address] CO2 [Moles/Vol] 27 mmol/L Normal 22-30 [facility] Comment on above: Order Comment: Speci men Type: BLOOD SPECIMENOrdering Facility: [facility] Address: [address] [place] [address] Performed By: #### 2 4362-6, ####[facility] [id number] [place] [address] Creatinine [Mass/Vol] 1.06 mg/dL High 0.58-0.96 [facility] Comment on above: Order Comment: Peter myles Type: BLOOD SPECIMENOrdering Facility: [facility] Address: [address] [place], [place] [address] Performed By: #### 2 4362-6, ####[facility]CL[facility] [id number] [place] [address] Creatinine and Glomerular filtration rate.predicted panel (S/P/Bld) 72 mL/min/1.73m??? Normal >=60 [facility] Comment on above: Order Comment: Peter myles Type: BLOOD SPECIMENOrdering Facility: [facility] Address: [address] [place] [address] Result Comment: Rachel mated Glomerular Filtration Rate [...] actual GFR. Performed By: #### 2 4362-6, ####[facility] [id number] [place] [address] Glucose [Mass/Vol] 94 mg/dL Normal 74-99 [facility] Comment on above: Order Comment: Peter myles Type: BLOOD SPECIMENOrdering Facility: [facility] Address: [address] [id number] Result Comment: The [place] Diabetes Association (ADA) provides guidance for cutoff [...] Standards of Medical Care in Diabetes 2016, [place] Diabetes Association. Diabetes Care. 2016.39(Suppl 1). Performed By: #### 2 4362-6, ####[facility] [id number] [place] [address] Phosphate [Mass/Vol] 4.5 mg/dL Normal 2.7-4.8 [facility] Comment on above: Order Comment: Speci men Type: BLOOD SPECIMENOrdering Facility: [facility] Address: [address] [place] [address] Performed By: #### 2 4362-6, ####[facility] LABIA [id number] [place] [address] Potassium [Moles/Vol] 4.2 mmol/L Normal 3.7-5.1 [facility] Comment on above: Order Comment: Speci men Type: BLOOD SPECIMENOrdering Facility: [facility] Address: [address] [place] [address] Performed By: #### 2 4362-6, ####[facility] LABIA [id number] [place] [address] Sodium [Moles/Vol] 144 mmol/L Normal 136-144 [facility] Comment on above: Order Comment: Speci men Type: BLOOD SPECIMENOrdering Facility: [facility] Address: [address] [place] [address] Performed By: #### 2 4362-6, ####[facility] LABIA [id number] [place] [address] Urea nitrogen [Mass/Vol] 23 mg/dL High 7-21 [facility] Comment on above: Order Comment: Speci men Type: BLOOD SPECIMENOrdering Facility: [facility] Address: [address] [place] [address] Performed By: #### 2 4362-6, ####[facility] LABIA [id number] [place] [address] Magnesium [facility] 01-01 Magnesium [Mass/Vol] 2.2 mg/dL Normal 1.7-2.3 [facility] Comment on above: Order Comment: Speci men Type: BLOOD SPECIMENOrdering Facility: [facility] Address: [address] [place], [place] [address] Performed By: #### 2 4362-6, ####[facility] LABIA [id number] [place] [address] Renal function [address] [address] 01-02-2024 Albumin [Mass/Vol] 4.7 g/dL Normal 3.9-4.9 [facility] Comment on above: Order Comment: Speci men Type: BLOOD SPECIMENOrdering Facility: [facility] Address: [address] [place], [place] [address] Performed By: #### 2 4362-6, ####[facility] LABIA [id number] [place] [address] Anion gap [Moles/Vol] 9 mmol/L Normal 9-18 [facility] Comment on above: Order Comment: Speci men Type: BLOOD SPECIMENOrdering Facility: [facility] Address: [address] [place] [address] Performed By: #### 2 4362-6, ####[facility] LABIA [id number] [place] [address] Calcium [Mass/Vol] 10.0 mg/dL Normal 8.5-10.2 [facility] Comment on above: Order Comment: Speci men Type: BLOOD SPECIMENOrdering Facility: [facility] Address: [address] [place] [address] Performed By: #### 2 4362-6, ####[facility] LABCLIA [id number] [place] [address] Chloride [Moles/Vol] 104 mmol/L Normal 97-105 [facility] Comment on above: Order Comment: Speci men Type: BLOOD SPECIMENOrdering Facility: [facility] Address: [address] [place] [address] Performed By: #### 2 4362-6, ####[facility]CLIA [id number] [place] [address] CO2 [Moles/Vol] 27 mmol/L Normal 22-30 [facility] Comment on above: Order Comment: Speci men Type: BLOOD SPECIMENOrdering Facility: [facility] Address: [address] [place] [address] Performed By: #### 2 4362-6, ####[facility]CLIA [id number] [place] [address] Creatinine [Mass/Vol] 0.98 mg/dL High 0.58-0.96 [facility] Comment on above: Order Comment: Speci men Type: BLOOD SPECIMENOrdering Facility: [facility] Address: [address] [place] [address] Performed By: #### 2 4362-6, ####[facility]CLIA [id number] [place] [address] Creatinine and Glomerular filtration rate.predicted panel (S/P/Bld) 79 mL/min/1.73m??? Normal >=60 [facility] Comment on above: Order Comment: Speci men Type: BLOOD SPECIMENOrdering Facility: [facility] Address: [address] [place] [address] Result Comment: Rachel mated Glomerular Filtration Rate [...] actual GFR. Performed By: #### 2 4362-6, ####[facility]CLIA [id number] [place] [address] Glucose [Mass/Vol] 103 mg/dL High 74-99 [facility] Comment on above: Order Comment: Peter myles Type: BLOOD SPECIMENOrdering Facility: [facility] Address: [address] [place] [address] Result Comment: The [place] Diabetes Association (ADA) provides guidance for cutoff [...] Standards of Medical Care in Diabetes 2016, [place] [employer]. Diabetes Care. 2016.39(Suppl 1). Performed By: #### 2 4362-6, ####[facility]CLIA [id number] [place] [address] Phosphate [Mass/Vol] 3.9 mg/dL Normal 2.7-4.8 [facility] Comment on above: Order Comment: Peter myles Type: BLOOD SPECIMENOrdering Facility: [facility] Address: [address] [place] [address] Performed By: #### 2 4362-6, ####[facility]CLIA [id number] [place] [address] Potassium [Moles/Vol] 3.5 mmol/L Low 3.7-5.1 [facility] Comment on above: Order Comment: Peter myles Type: BLOOD SPECIMENOrdering Facility: [facility] Address: [address] [place] [address] Performed By: #### 2 4362-6, ####[facility]CLIA [id number] [place] [address] Sodium [Moles/Vol] 140 mmol/L Normal 136-144 [facility] Comment on above: Order Comment: Speci men Type: BLOOD SPECIMENOrdering Facility: [facility] Address: [address] [place], [place] [address] Performed By: #### 2 4362-6, ####[facility]CLIA [id number] [place] [address] Urea nitrogen [Mass/Vol] 21 mg/dL Normal 7-21 [facility] Comment on above: Order Comment: Speci men Type: BLOOD SPECIMENOrdering Facility: [facility] Address: [address] [place], [place] [address] Performed By: #### 2 4362-6, ####[facility] LABIA [id number] [place] [address] Magnesium [facility] 12-22 Magnesium [Mass/Vol] 2.3 mg/dL Normal 1.7-2.3 [facility] Comment on above: Order Comment: Speci men Type: BLOOD SPECIMENOrdering Facility: [facility] Address: [address] [place], [place] [address] Performed By: #### 2 4362-6, ####[facility] LABCLIA [id number] [place] [address] Renal function [facility] panelon 12-23-2023 Albumin [Mass/Vol] 4.7 g/dL Normal 3.9-4.9 [facility] Comment on above: Order Comment: Speci men Type: BLOOD SPECIMENOrdering Facility: [facility] Address: [address] [place], [place] [address] Performed By: #### 2 4362-, ####FABIANNJLOBITO [facility] LABCLIA [id number] [place] [address] Anion gap [Moles/Vol] 9 mmol/L Normal 9-18 [facility] Comment on above: Order Comment: Speci men Type: BLOOD SPECIMENOrdering Facility: [facility] Address: [address] [place] [address] Performed By: #### 2 4362-6, ####[facility] LABCLIA [id number] [place] [address] Calcium [Mass/Vol] 9.8 mg/dL Normal 8.5-10.2 [facility] Comment on above: Order Comment: Speci men Type: BLOOD SPECIMENOrdering Facility: [facility] Address: [address] [place], [place] [address] Performed By: #### 2 4362-6, ####FABIANNJLOBITO [facility] LABCLIA [id number] [place] [address] Chloride [Moles/Vol] 108 mmol/L High 97-105 [facility] Comment on above: Order Comment: Speci men Type: BLOOD SPECIMENOrdering Facility: [facility] Address: [address] [place], [place] [address] Performed By: #### 2 4362-6, ####[facility] LABCLIA [id number] [place] [address] CO2 [Moles/Vol] 25 mmol/L Normal 22-30 [facility] Comment on above: Order Comment: Speci men Type: BLOOD SPECIMENOrdering Facility: [facility] Address: [address] [place] [id number] Performed By: #### 2 4362-6, ####[facility] LABCLIA [id number] [place] [address] Creatinine [Mass/Vol] 0.90 mg/dL Normal 0.58-0.96 [facility] Comment on above: Order Comment: Peter myles Type: BLOOD SPECIMENOrdering Facility: [facility] Address: [address] [place] [address] Performed By: #### 2 4362-6, ####[facility] LABCLIA [id number] [place] [address] Creatinine and Glomerular filtration rate.predicted panel (S/P/Bld) 87 mL/min/1.73m??? Normal >=60 [facility] Comment on above: Order Comment: Peter myles Type: BLOOD SPECIMENOrdering Facility: [facility] Address: [address] [place] [address] Result Comment: Rachel mated Glomerular Filtration Rate [...] actual GFR. Performed By: #### 2 4362-6, 21612-5 ####[facility] LABCLIA [id number] [place] [address] Glucose [Mass/Vol] 122 mg/dL High 74-99 [facility] Comment on above: Order Comment: Peter myles Type: BLOOD SPECIMENOrdering Facility: [facility] Address: [address] [place] [address] Result Comment: The [place] Diabetes Association (ADA) provides guidance for cutoff [...] Standards of Medical Care in Diabetes 2016, [place] Diabetes Association. Diabetes Care. 2016.39(Suppl 1). Performed By: #### 2 4362-6, ####[facility] LABCLIA [id number] [place] [address] Phosphate [Mass/Vol] 3.6 mg/dL Normal 2.7-4.8 [facility] Comment on above: Order Comment: Speci men Type: BLOOD SPECIMENOrdering Facility: [facility] Address: [address] [place] [address] Performed By: #### 2 4362-6, ####[facility] LABIA [id number] [place] [address] Potassium [Moles/Vol] 4.0 mmol/L Normal 3.7-5.1 [facility] Comment on above: Order Comment: Speci men Type: BLOOD SPECIMENOrdering Facility: [facility] Address: [address] [place] [address] Performed By: #### 2 4362-6, ####[facility] LABIA [id number] [place] [address] Sodium [Moles/Vol] 142 mmol/L Normal 136-144 [facility] Comment on above: Order Comment: Speci men Type: BLOOD SPECIMENOrdering Facility: [facility] Address: [address] [place] [address] Performed By: #### 2 4362-6, ####[facility] LABCLIA [id number] [place] [address] Urea nitrogen [Mass/Vol] 18 mg/dL Normal 7-21 [facility] Comment on above: Order Comment: Speci men Type: BLOOD SPECIMENOrdering Facility: [facility] Address: [address] [place], [place] [address] Performed By: #### 2 4362-6, ####[facility] LABCLIA [id number] [place] [address] CNPNon 12-19-2023 CNPN Normal [facility] Magnesium SerPl-mCncon 12-18 Magnesium [Mass/Vol] 2.2 mg/dL Normal 1.7-2.3 [facility] Comment on above: Order Comment: Speci men Type: BLOOD SPECIMENOrdering Facility: [facility] Address: [address] [place] [address] Performed By: #### 1 9123-9, 71632-4 ####[facility] LABCLIA [id number] [place] [address] Renal function 2000 panelon 12-19-2023 Albumin [Mass/Vol] 4.5 g/dL Normal 3.9-4.9 [facility] Comment on above: Order Comment: Speci men Type: BLOOD SPECIMENOrdering Facility: [facility] Address: [address] [place] [address] Performed By: #### 1 9123-9, 57710-9 ####[facility] LABCLIA [id number] [place] [address] Anion gap [Moles/Vol] 8 mmol/L Low 9-18 [facility] Comment on above: Order Comment: Speci men Type: BLOOD SPECIMENOrdering Facility: [facility] Address: [address] [place] [address] Performed By: #### 1 9123-9, 93526-3 ####[facility] LABCLIA [id number] [place] [address] Calcium [Mass/Vol] 9.9 mg/dL Normal 8.5-10.2 [facility] Comment on above: Order Comment: Speci men Type: BLOOD SPECIMENOrdering Facility: [facility] Address: [address] [place] [address] Performed By: #### 1 9123-9, 43868-6 ####[facility] LABCLIA [id number] [place] [address] Chloride [Moles/Vol] 109 mmol/L High 97-105 [facility] Comment on above: Order Comment: Speci men Type: BLOOD SPECIMENOrdering Facility: [facility] Address: [address] [place], [place] [address] Performed By: #### 1 9123-9, 28573-1 ####[facility] LABCLIA [id number] [place] [address] CO2 [Moles/Vol] 24 mmol/L Normal 22-30 [facility] Comment on above: Order Comment: Speci men Type: BLOOD SPECIMENOrdering Facility: [facility] Address: [address] [place] [address] Performed By: #### 1 9123-9, 04732-4 ####[facility] LABCLIA [id number] [place] [address] Creatinine [Mass/Vol] 0.85 mg/dL Normal 0.58-0.96 [facility] Comment on above: Order Comment: Speci men Type: BLOOD SPECIMENOrdering Facility: [facility] Address: [address] [place] [address] Performed By: #### 1 9123-9, 93467-4 ####[facility] LABCLIA [id number] [place] [address] Creatinine and Glomerular filtration rate.predicted panel (S/P/Bld) 93 mL/min/1.73m??? Normal >=60 [facility] Comment on above: Order Comment: Speci men Type: BLOOD SPECIMENOrdering Facility: [facility] Address: [address] [place] [address] Result Comment: Rachel mated Glomerular Filtration Rate [...] actual GFR. Performed By: #### 1 9123-9, 11306-8 ####[facility] LABCLIA [id number] [place] [address] Glucose [Mass/Vol] 105 mg/dL High 74-99 [facility] Comment on above: Order Comment: Speci men Type: BLOOD SPECIMENOrdering Facility: [facility] Address: [address] [place] [address] Result Comment: The [place] Diabetes Association (ADA) provides guidance for cutoff [...] Standards of Medical Care in Diabetes 2016, [place] Diabetes Association. Diabetes Care. 2016.39(Suppl 1). Performed By: #### 1 9123-9, 60848-0 ####[facility] [id number] [place] [address] Phosphate [Mass/Vol] 3.5 mg/dL Normal 2.7-4.8 [facility] Comment on above: Order Comment: Speci men Type: BLOOD SPECIMENOrdering Facility: [facility] Address: [address] [place] [address] Performed By: #### 1 9123-9, 58605-3 ####[facility] LABCLIA [id number] [place] [address] Potassium [Moles/Vol] 4.3 mmol/L Normal 3.7-5.1 [facility] Comment on above: Order Comment: Speci men Type: BLOOD SPECIMENOrdering Facility: [facility] Address: [address] [place], [place] [address] Performed By: #### 1 9123-9, 97529-9 ####[facility] LABCLIA [id number] [place] [address] Sodium [Moles/Vol] 141 mmol/L Normal 136-144 [facility] Comment on above: Order Comment: Speci men Type: BLOOD SPECIMENOrdering Facility: [facility] Address: [address] [place] [address] Performed By: #### 1 9123-9, 97223-4 ####[facility] LABCLIA [id number] [place] [address] Urea nitrogen [Mass/Vol] 20 mg/dL Normal 7-21 [facility] Comment on above: Order Comment: Speci men Type: BLOOD SPECIMENOrdering Facility: [facility] Address: [address] [place] [address] Performed By: #### 1 9123-9, 20330-4 ####[facility] LABCLIA [id number] [place] [address] Magnesium [facility] 12-15 Magnesium [Mass/Vol] 2.3 mg/dL Normal 1.7-2.3 [facility] Comment on above: Order Comment: Speci men Type: BLOOD SPECIMENOrdering Facility: [facility] Address: [address] [place] [address] Performed By: #### 1 9123-9, 54366-8 ####[facility] LABCLIA [id number] [place] [address] [address]al [address] [address] 12-16-2023 Albumin [Mass/Vol] 4.4 g/dL Normal 3.9-4.9 [facility] Comment on above: Order Comment: Speci men Type: BLOOD SPECIMENOrdering Facility: [facility] Address: [address] [place] [address] Performed By: #### 1 9123-9, 80814-7 ####[facility] LABCLIA [id number] [place] [address] Anion gap [Moles/Vol] 8 mmol/L Low 9-18 [facility] Comment on above: Order Comment: Speci men Type: BLOOD SPECIMENOrdering Facility: [facility] Address: [address] [place] [address] Performed By: #### 1 9123-9, 33425-2 ####[facility] LABCLIA [id number] [place] [address] Calcium [Mass/Vol] 10.1 mg/dL Normal 8.5-10.2 [facility] Comment on above: Order Comment: Speci men Type: BLOOD SPECIMENOrdering Facility: [facility] Address: [address] [place] [address] Performed By: #### 1 9123-9, 13161-4 ####[facility] LABCLIA [id number] [place] [address] Chloride [Moles/Vol] 111 mmol/L High 97-105 [facility] Comment on above: Order Comment: Speci men Type: BLOOD SPECIMENOrdering Facility: [facility] Address: [address] [place] [address] Performed By: #### 1 9123-9, 84125-4 ####[facility] LABCLIA [id number] [place] [address] CO2 [Moles/Vol] 26 mmol/L Normal 22-30 [facility] Comment on above: Order Comment: Speci men Type: BLOOD SPECIMENOrdering Facility: [facility] Address: [address] [place] [address] Performed By: #### 1 9123-9, 27986-2 ####[facility] LABCLIA [id number] [place] [address] Creatinine [Mass/Vol] 0.87 mg/dL Normal 0.58-0.96 [facility] Comment on above: Order Comment: Speci men Type: BLOOD SPECIMENOrdering Facility: [facility] Address: [address] [place] [address] Performed By: #### 1 9123-9, 90772-1 ####[facility] LABCLIA [id number] [place] [address] Creatinine and Glomerular filtration rate.predicted panel (S/P/Bld) 91 mL/min/1.73m??? Normal >=60 [facility] Comment on above: Order Comment: Peter myles Type: BLOOD SPECIMENOrdering Facility: [facility] Address: [address] [place] [address] Result Comment: Rachel mated Glomerular Filtration Rate [...] actual GFR. Performed By: #### 1 9123-9, 75760-2 ####[facility] LABCLIA [id number] [place] [address] Glucose [Mass/Vol] 89 mg/dL Normal 74-99 [facility] Comment on above: Order Comment: Peter myles Type: BLOOD SPECIMENOrdering Facility: [facility] Address: [address] [place] [address] Result Comment: The [place] Diabetes Association (ADA) provides guidance for cutoff [...] Standards of Medical Care in Diabetes 2016, [place] Diabetes Association. Diabetes Care. 2016.39(Suppl 1). Performed By: #### 1 9123-9, 52626-1 ####[facility] LABCLIA [id number] [place] [address] Phosphate [Mass/Vol] 3.1 mg/dL Normal 2.7-4.8 [facility] Comment on above: Order Comment: Speci men Type: BLOOD SPECIMENOrdering Facility: [facility] Address: [address] [place], [place] [address] Performed By: #### 1 9123-9, 91353-8 ####[facility] LABCLIA [id number] [place] [address] Potassium [Moles/Vol] 3.5 mmol/L Low 3.7-5.1 [facility] Comment on above: Order Comment: Speci men Type: BLOOD SPECIMENOrdering Facility: [facility] Address: [address] [place] [address] Performed By: #### 1 9123-9, 70815-0 ####[facility] LABIA [id number] [place] [address] Sodium [Moles/Vol] 145 mmol/L High 136-144 [facility] Comment on above: Order Comment: Speci men Type: BLOOD SPECIMENOrdering Facility: [facility] Address: [address] [place], [place] [address] Performed By: #### 1 9123-9, 15618-5 ####[facility] LABCLIA [id number] [place] [address] Urea nitrogen [Mass/Vol] 21 mg/dL Normal 7-21 [facility] Comment on above: Order Comment: Speci men Type: BLOOD SPECIMENOrdering Facility: [facility] Address: [address] [place], [place] [address] Performed By: #### 1 9123-9, 19921-1 ####[facility] LABCLIA [id number] [place] [address] Magnesium [facility] Magnesium [Mass/Vol] 2.3 mg/dL Normal 1.7-2.3 [facility] Comment on above: Order Comment: Speci men Type: BLOOD SPECIMENOrdering Facility: [facility] Address: [address] [place] [address] Performed By: #### 2 4362-6, ####[facility] LABCLIA [id number] [place] [address] Renal function 2000 panelon 12-13-2023 Albumin [Mass/Vol] 4.6 g/dL Normal 3.9-4.9 [facility] Comment on above: Order Comment: Speci men Type: BLOOD SPECIMENOrdering Facility: [facility] Address: [address] [place] [address] Performed By: #### 2 4362-6, ####[facility] LABCLIA [id number] [place] [address] Anion gap [Moles/Vol] 9 mmol/L Normal 9-18 [facility] Comment on above: Order Comment: Speci men Type: BLOOD SPECIMENOrdering Facility: [facility] Address: [address] [place] [address] Performed By: #### 2 4362-6, ####[facility] LABCLIA [id number] [place] [address] Calcium [Mass/Vol] 10.0 mg/dL Normal 8.5-10.2 [facility] Comment on above: Order Comment: Speci men Type: BLOOD SPECIMENOrdering Facility: [facility] Address: [address] [place] [address] Performed By: #### 2 4362-6, ####[facility] LABIA [id number] [place] [address] Chloride [Moles/Vol] 105 mmol/L Normal 97-105 [facility] Comment on above: Order Comment: Speci men Type: BLOOD SPECIMENOrdering Facility: [facility] Address: [facility] [place], [place] [address] Performed By: #### 2 4362-6, ####[facility] LABCLIA [id number] [place] [address] CO2 [Moles/Vol] 29 mmol/L Normal 22-30 [facility] Comment on above: Order Comment: Speci men Type: BLOOD SPECIMENOrdering Facility: [facility] Address: [address] [place] [address] Performed By: #### 2 4362-6, ####[facility] LABCLIA [id number] [place] [address] Creatinine [Mass/Vol] 0.77 mg/dL Normal 0.58-0.96 [facility] Comment on above: Order Comment: Speci men Type: BLOOD SPECIMENOrdering Facility: [facility] Address: [address] [place] [address] Performed By: #### 2 4362-6, ####[facility] LABIA [id number] [place] [address] Creatinine and Glomerular filtration rate.predicted panel (S/P/Bld) 105 mL/min/1.73m??? Normal >=60 [facility] Comment on above: Order Comment: Speci men Type: BLOOD SPECIMENOrdering Facility: [facility] Address: [address] [place], [place] [address] Result Comment: Rachel mated Glomerular Filtration Rate [...] actual GFR. Performed By: #### 2 4362-6, ####[facility] LABCLIA [id number] [place] [address] Glucose [Mass/Vol] 97 mg/dL Normal 74-99 [facility] Comment on above: Order Comment: Speci men Type: BLOOD SPECIMENOrdering Facility: [facility] Address: [address] [place] [address] Result Comment: The [place] Diabetes Association (ADA) provides guidance for cutoff [...] Standards of Medical Care in Diabetes 2016, [place] Diabetes Association. Diabetes Care. 2016.39(Suppl 1). Performed By: #### 2 4362-6, ####[facility] LABCLIA [id number] [place] [address] Phosphate [Mass/Vol] 2.6 mg/dL Low 2.7-4.8 [facility] Comment on above: Order Comment: Joselyni men Type: BLOOD SPECIMENOrdering Facility: [facility] Address: [address] [place] [address] Performed By: #### 2 4362-6, ####[facility] LABCLIA [id number] [place] [address] Potassium [Moles/Vol] 2.7 mmol/L Low 3.7-5.1 [facility] Comment on above: Order Comment: Speci men Type: BLOOD SPECIMENOrdering Facility: [facility] Address: [address] [place] [address] Performed By: #### 2 4362-6, ####[facility] LABCLIA [id number] [place] [address] Sodium [Moles/Vol] 143 mmol/L Normal 136-144 [facility] Comment on above: Order Comment: Speci men Type: BLOOD SPECIMENOrdering Facility: [facility] Address: [address] [place] [address] Performed By: #### 2 4362-6, 32872-8 ####[facility] LABCLIA [id number] [place] [address] Urea nitrogen [Mass/Vol] 25 mg/dL High 7-21 [facility] Comment on above: Order Comment: Speci men Type: BLOOD SPECIMENOrdering Facility: [facility] Address: [address] [place] [address] Performed By: #### 2 4362-6, ####[facility] LABCLIA [id number] [place] [address] CNCOon 12-11-2023 CNCO Letter Text Normal [facility] CNOVon 12-11-2023 CNOV Normal [facility] Magnesium SerPl-mCncon 12-10 Magnesium [Mass/Vol] 2.2 mg/dL Normal 1.7-2.3 [facility] Comment on above: Order Comment: Speci men Type: BLOOD SPECIMENOrdering Facility: [facility] Address: [address] [place] [address] Performed By: #### 1 9123-9 ####[facility] LABCLIA [id number] [place] [address] [place] Basic metabolic 2000 panelon 12-10-2023 Anion gap [Moles/Vol] 11 mmol/L Normal 9-18 [facility] Comment on above: Order Comment: Speci men Type: BLOOD SPECIMENOrdering Facility: [facility] Address: [address] [place] [address] Performed By: #### 2 4321-2 ####[facility] LABCLIA [id number] [place] [address] [place] Calcium [Mass/Vol] 9.0 mg/dL Normal 8.5-10.2 [facility] Comment on above: Order Comment: Speci men Type: BLOOD SPECIMENOrdering Facility: [facility] Address: [address] [place] [address] Performed By: #### 2 4321-2 ####[facility] LABCLIA [id number] [place] [address] [place] Chloride [Moles/Vol] 108 mmol/L High 97-105 [facility] Comment on above: Order Comment: Speci men Type: BLOOD SPECIMENOrdering Facility: [facility] Address: [address] [place] [address] Performed By: #### 2 4321-2 ####[facility] LABCLIA [id number] [place] [address] [place] CO2 [Moles/Vol] 30 mmol/L Normal 22-30 [facility] Comment on above: Order Comment: Speci men Type: BLOOD SPECIMENOrdering Facility: [facility] Address: [address] [place] [address] Performed By: #### 2 4321-2 ####[facility] LABCLIA [id number] [place] [address] [place] Creatinine [Mass/Vol] 0.55 mg/dL Low 0.58-0.96 [facility] Comment on above: Order Comment: Speci men Type: BLOOD SPECIMENOrdering Facility: [facility] Address: [address] [place] [address] Performed By: #### 2 4321-2 ####[facility] LABCLIA [id number] [place] [address] [place] Creatinine and Glomerular filtration rate.predicted panel (S/P/Bld) 125 mL/min/1.73m??? Normal >=60 [facility] Comment on above: Order Comment: Speci men Type: BLOOD SPECIMENOrdering Facility: [facility] Address: [address] [place] [address] Result Comment: Rachel mated Glomerular Filtration Rate [...] actual GFR. Performed By: #### 2 4321-2 ####[facility] LABIA [id number] [place] [address] [place] Glucose [Mass/Vol] 83 mg/dL Normal 74-99 [facility] Comment on above: Order Comment: Peter myles Type: BLOOD SPECIMENOrdering Facility: [facility] Address: [address] [place] [address] Result Comment: The [place] Diabetes Association (ADA) provides guidance for cutoff [...] Standards of Medical Care in Diabetes 2016, [place] Diabetes Association. Diabetes Care. 2016.39(Suppl 1). Performed By: #### 2 4321-2 ####[facility] LABCLIA [id number] [place] [address] [place] Potassium [Moles/Vol] 2.4 mmol/L Critically low 3.7-5.1 [facility] Comment on above: Order Comment: Peter myles Type: BLOOD SPECIMENOrdering Facility: [facility] Address: [address] [place] [address] Performed By: #### 2 4321-2 ####[facility] LABCLIA [id number] [place] [address] [place] Sodium [Moles/Vol] 149 mmol/L High 136-144 [facility] Comment on above: Order Comment: Speci men Type: BLOOD SPECIMENOrdering Facility: [facility] Address: [address] [place] [address] Performed By: #### 2 4321-2 ####[facility] LABCLIA [id number] [place] [address] [place] Urea nitrogen [Mass/Vol] 9 mg/dL Normal 7-21 [facility] Comment on above: Order Comment: Speci men Type: BLOOD SPECIMENOrdering Facility: [facility] Address: [address] [place] [address] Performed By: #### 2 4321-2 ####[facility] LABIA [id number] [place] [address] [place] Gas and Carbon monoxide pane l (BldV)on 12-10-2023 Base excess Calc (BldV) [Moles/Vol] 6 mmol/L High 0-2 [facility] Comment on above: Order Comment: Speci men Type: VENOUS BLOOD SPECIMENOrdering Facility: [facility] Address: [address] [place] [address] Performed By: #### 2 4344-4 ####[facility] LABIA [id number] [place] [address] [place] Body temperature 98.24 [degF] Normal [facility] Comment on above: Order Comment: Speci men Type: VENOUS BLOOD SPECIMENOrdering Facility: [facility] Address: [address] [place] [address] Performed By: #### 2 4344-4 ####[facility] LABCLIA [id number] [place] [address] [place] Calcium.ionized (Bld) [Mass/Vol] 1.13 mmol/L Normal 1.08-1.30 [facility] Comment on above: Order Comment: Speci men Type: VENOUS BLOOD SPECIMENOrdering Facility: [facility] Address: [address] [place] [address] Performed By: #### 2 4344-4 ####[facility] LABCLIA [id number] [place] [address] [place] Calcium.ionized adjusted to pH 7.4 (BldA) [Moles/Vol] 1.14 mmol/L Normal 1.08-1.30 [facility] Comment on above: Order Comment: Speci men Type: VENOUS BLOOD SPECIMENOrdering Facility: [facility] Address: [address] [place] [address] Performed By: #### 2 4344-4 ####[facility] LABIA [id number] [place] [address] [place] Carboxyhemoglobin (BldV) [Mass fraction] 3.1 % High 0.0-2.0 [facility] Comment on above: Order Comment: Speci men Type: VENOUS BLOOD SPECIMENOrdering Facility: [facility] Address: [address] [place] [address] Result Comment: Carb oxyhemoglobin Reference Range for Smokers: 2.0-8.0% Performed By: #### 2 4344-4 ####[facility] [id number] [place] [address] [place] CO2 (BldV) [Partial pressure] 49 mm[Hg] Normal 42-55 [facility] Comment on above: Order Comment: Speci men Type: VENOUS BLOOD SPECIMENOrdering Facility: [facility] Address: [address] [place], [place] [id number] Performed By: #### 2 4344-4 ####[facility] [id number] [place] [place] [address] [place] CO2 adjusted to patient's actual temperature (BldV) [Partial pressure] 48 mmHg Normal 42-55 [facility] Comment on above: Order Comment: Speci men Type: VENOUS BLOOD SPECIMENOrdering Facility: [facility] Address: [address] [id number] Performed By: #### 2 4344-4 ####[facility] LABCLIA [id number] [place] [address] [place] COMMENTS Critical Value: K+ Normal [facility] Comment on above: Order Comment: Speci men Type: VENOUS BLOOD SPECIMENOrdering Facility: [facility] Address: [address] [place] [address] Performed By: #### 2 4344-4 ####[facility] LABCLIA [id number] [place] [address] [place] DATE/TIME NOTIFIED 731952 61783 PM [facility] Comment on above: Order Comment: Speci men Type: VENOUS BLOOD SPECIMENOrdering Facility: [facility] Address: [address] [place] [address] Performed By: #### 2 4344-4 ####[facility] LABCLIA [id number] [place] [address] [place] Glucose [Mass/Vol] 91 mg/dL Normal 60-105 [facility] Comment on above: Order Comment: Speci men Type: VENOUS BLOOD SPECIMENOrdering Facility: [facility] Address: [address] [place], [place] [address] Performed By: #### 2 4344-4 ####[facility] LABCLIA [id number] [place] [id number] [place] HCO3 (Bld) [Moles/Vol] 31 mmol/L High 24-28 Cl [facility] Comment on above: Order Comment: Speci men Type: VENOUS BLOOD SPECIMENOrdering Facility: [facility] Address: [address] [id number] Performed By: #### 2 4344-4 ####[facility] LABCLIA [id number] [place] [address] [place] Hematocrit (Bld) [Volume fraction] 45.6 % Normal 36.0-46.0 [facility] Comment on above: Order Comment: Speci men Type: VENOUS BLOOD SPECIMENOrdering Facility: [facility] Address: [address] [place] [address] Performed By: #### 2 4344-4 ####[facility] LABCLIA [id number] [place] [address] [place] Hemoglobin (Bld) [Mass/Vol] 14.9 g/dL Normal 11.5-15.5 [facility] Comment on above: Order Comment: Speci men Type: VENOUS BLOOD SPECIMENOrdering Facility: [facility] Address: [address] [place] [address] Performed By: #### 2 4344-4 ####[facility] LABCLIA [id number] [place] [address] [place] Lactate [Moles/Vol] 1.0 mmol/L Normal 0.5-2.2 [facility] Comment on above: Order Comment: Speci men Type: VENOUS BLOOD SPECIMENOrdering Facility: [facility] Address: [address] [place] [address] Performed By: #### 2 4344-4 ####[facility] LABCLIA [id number] [place] [address] [place] Methemoglobin (Bld) [Mass fraction] 0.3 % Normal 0.0-1.5 [facility] Comment on above: Order Comment: Speci men Type: VENOUS BLOOD SPECIMENOrdering Facility: [facility] Address: [address] [place] [address] Performed By: #### 2 4344-4 ####[facility] LABCLIA [id number] [address] [place] NOTIFIED WHOM Ambrosio Figueroa Normal [facility] Comment on above: Order Comment: Speci men Type: VENOUS BLOOD SPECIMENOrdering Facility: [facility] Address: [address] [id number] Performed By: #### 2 4344-4 ####[facility] LABCLIA [id number] [place] [address] [place] O2 THERAPY RA=Room Air Normal [facility] Comment on above: Order Comment: Speci men Type: VENOUS BLOOD SPECIMENOrdering Facility: [facility] Address: [address] [place], [place] [address] Performed By: #### 2 4344-4 ####[facility] LABCLIA [id number] [place] [address] [place] Oxygen (BldV) [Partial pressure] 98 mm[Hg] High 35-45 [facility] Comment on above: Order Comment: Speci men Type: VENOUS BLOOD SPECIMENOrdering Facility: [facility] Address: [address] [place], [place] [address] Performed By: #### 2 4344-4 ####[facility] LABCLIA [id number] [place] [address] [place] Oxygen adjusted to patient's actual temperature (BldV) [Partial pressure] 97 mmHg High 35-45 [facility] Comment on above: Order Comment: Speci men Type: VENOUS BLOOD SPECIMENOrdering Facility: [facility] Address: [address] [place], [place] [address] Performed By: #### 2 4344-4 ####[facility] LABCLIA [id number] [address] [address] [place] Oxygen saturation in Venous blood 98 % High 60-85 [facility] Comment on above: Order Comment: Speci men Type: VENOUS BLOOD SPECIMENOrdering Facility: [facility] Address: [address] [place], [place] [address] Performed By: #### 2 4344-4 ####[facility] LABCLIA [id number] [place] [address] [place] Oxyhemoglobin (BldV) [Mass fraction] 95 % High 60-85 [facility] Comment on above: Order Comment: Speci men Type: VENOUS BLOOD SPECIMENOrdering Facility: [facility] Address: [address] [place] [address] Performed By: #### 2 4344-4 ####[facility] LABCLIA [id number] [place] [address] [place] pH (BldV) 7.42 [pH] Normal 7.32-7.42 [facility] Comment on above: Order Comment: Speci men Type: VENOUS BLOOD SPECIMENOrdering Facility: [facility] Address: [address] [place] [address] Performed By: #### 2 4344-4 ####[facility] LABIA [id number] [place] [address] [place] pH adjusted to patient's actual temperature (BldV) 7.42 Normal 7.32-7.42 [facility] Comment on above: Order Comment: Speci men Type: VENOUS BLOOD SPECIMENOrdering Facility: [facility] Address: [address] [place] [address] Performed By: #### 2 4344-4 ####[facility] LABIA [id number] [place] [address] [place] Potassium [Moles/Vol] 2.3 mmol/L Critically low 3.5-5.0 [facility] Comment on above: Order Comment: Speci men Type: VENOUS BLOOD SPECIMENOrdering Facility: [facility] Address: [address] [place] [address] Performed By: #### 2 4344-4 ####[facility] LABIA [id number] [place] [address] [place] Sodium [Moles/Vol] 147 mmol/L High 136-144 [facility] Comment on above: Order Comment: Speci men Type: VENOUS BLOOD SPECIMENOrdering Facility: [facility] Address: [address] [place] [address] Performed By: #### 2 4344-4 ####[facility] LABCLIA [id number] [place] [address] [place] Base excess Calc (BldV) [Moles/Vol] 6 mmol/L High 0-2 [facility] Comment on above: Order Comment: Speci men Type: VENOUS BLOOD SPECIMENOrdering Facility: [facility] Address: [address] [place] [address] Performed By: #### 2 4344-4 ####[facility] LABCLIA [id number] [place] [address] [place] Body temperature 97.88 [degF] Normal [facility] Comment on above: Order Comment: Speci men Type: VENOUS BLOOD SPECIMENOrdering Facility: [facility] Address: [address] [place] [address] Performed By: #### 2 4344-4 ####[facility] LABCLIA [id number] [place] [address] [place] Calcium.ionized (Bld) [Mass/Vol] 1.16 mmol/L Normal 1.08-1.30 [facility] Comment on above: Order Comment: Speci men Type: VENOUS BLOOD SPECIMENOrdering Facility: [facility] Address: [address] [place] [address] Performed By: #### 2 4344-4 ####[facility] LABCLIA [id number] [place] [address] [place] Calcium.ionized adjusted to pH 7.4 (BldA) [Moles/Vol] 1.18 mmol/L Normal 1.08-1.30 [facility] Comment on above: Order Comment: Speci men Type: VENOUS BLOOD SPECIMENOrdering Facility: [facility] Address: [address] [place] [address] Performed By: #### 2 4344-4 ####[facility] LABCLIA [id number] [address] [address] [place] Carboxyhemoglobin (BldV) [Mass fraction] 3.6 % High 0.0-2.0 [facility] Comment on above: Order Comment: Speci men Type: VENOUS BLOOD SPECIMENOrdering Facility: [facility] Address: [address] [place] [address] Result Comment: Carb oxyhemoglobin Reference Range for Smokers: 2.0-8.0% Performed By: #### 2 4344-4 ####[facility] LABCLIA [id number] [place] [address] [place] CO2 (BldV) [Partial pressure] 47 mm[Hg] Normal 42-55 [facility] Comment on above: Order Comment: Speci men Type: VENOUS BLOOD SPECIMENOrdering Facility: [facility] Address: [address] [place] [address] Performed By: #### 2 4344-4 ####[facility] LABCLIA [id number] [place] [address] [place] CO2 adjusted to patient's actual temperature (BldV) [Partial pressure] 46 mmHg Normal 42-55 [facility] Comment on above: Order Comment: Speci men Type: VENOUS BLOOD SPECIMENOrdering Facility: [facility] Address: [address] [place], [place] [address] Performed By: #### 2 4344-4 ####[facility] LABCLIA [id number] [place] [address] [place] COMMENTS Critical Value: K+ Normal [facility] Comment on above: Order Comment: Speci men Type: VENOUS BLOOD SPECIMENOrdering Facility: [facility] Address: [address] [place] [address] Performed By: #### 2 4344-4 ####[facility] LABCLIA [id number] [place] [address] [place] DATE/TIME NOTIFIED 280267 463123 AM Normal [facility] Comment on above: Order Comment: Speci men Type: VENOUS BLOOD SPECIMENOrdering Facility: [facility] Address: [address] [place] [address] Performed By: #### 2 4344-4 ####[facility] LABCLIA [id number] [address] [address] [place] Glucose [Mass/Vol] 85 mg/dL Normal 60-105 [facility] Comment on above: Order Comment: Speci men Type: VENOUS BLOOD SPECIMENOrdering Facility: [facility] Address: [address] [place] [address] Performed By: #### 2 4344-4 ####[facility] LABCLIA [id number] [place] [address] [place] HCO3 (Bld) [Moles/Vol] 31 mmol/L High 24-28 [facility] Comment on above: Order Comment: Speci men Type: VENOUS BLOOD SPECIMENOrdering Facility: [facility] Address: [address] [place] [address] Performed By: #### 2 4344-4 ####[facility] LABCLIA [id number] [place] [address] [place] Hematocrit (Bld) [Volume fraction] 47.9 % High 36.0-46.0 [facility] Comment on above: Order Comment: Speci men Type: VENOUS BLOOD SPECIMENOrdering Facility: [facility] Address: [address] [place] [address] Performed By: #### 2 4344-4 ####[facility] LABCLIA [id number] [place] [address] [place] Hemoglobin (Bld) [Mass/Vol] 15.6 g/dL High 11.5-15.5 [facility] Comment on above: Order Comment: Speci men Type: VENOUS BLOOD SPECIMENOrdering Facility: [facility] Address: [address] [place] [address] Performed By: #### 2 4344-4 ####[facility] LABCLIA [id number] [place] [address] [place] Lactate [Moles/Vol] 1.7 mmol/L Normal 0.5-2.2 [facility] Comment on above: Order Comment: Speci men Type: VENOUS BLOOD SPECIMENOrdering Facility: [facility] Address: [address] [place] [address] Performed By: #### 2 4344-4 ####[facility] LABIA [id number] [place] [address] [place] Methemoglobin (Bld) [Mass fraction] 0.4 % Normal 0.0-1.5 [facility] Comment on above: Order Comment: Speci men Type: VENOUS BLOOD SPECIMENOrdering Facility: [facility] Address: [address] [place] [address] Performed By: #### 2 4344-4 ####[facility] LABIA [id number] [place] [address] [place] NOTIFIED WHOM Tay Meneses ORCharles Figueroa Normal [facility] Comment on above: Order Comment: Speci men Type: VENOUS BLOOD SPECIMENOrdering Facility: [facility] Address: [address] [place] [address] Performed By: #### 2 4344-4 ####[facility] LABIA [id number] [place] [address] [place] O2 THERAPY RA=Room Air Normal [facility] Comment on above: Order Comment: Speci men Type: VENOUS BLOOD SPECIMENOrdering Facility: [facility] Address: [address] [place] [address] Result Comment: RA=R oom Air Performed By: #### 2 4344-4 ####[facility] LABIA [id number] [place] [id number] [place] Oxygen (BldV) [Partial pressure] 44 mm[Hg] Normal 35-45 [facility] Comment on above: Order Comment: Speci men Type: VENOUS BLOOD SPECIMENOrdering Facility: [facility] Address: [address] [place] [address] Performed By: #### 2 4344-4 ####[facility] LABCLIA [id number] [address] [address] [place] Oxygen adjusted to patient's actual temperature (BldV) [Partial pressure] 43 mmHg Normal 35-45 [facility] Comment on above: Order Comment: Speci men Type: VENOUS BLOOD SPECIMENOrdering Facility: [facility] Address: [address] [place] [address] Performed By: #### 2 4344-4 ####[facility] LABCLIA [id number] [address] [address] [place] Oxygen saturation in Venous blood 79 % Normal 60-85 [facility] Comment on above: Order Comment: Speci men Type: VENOUS BLOOD SPECIMENOrdering Facility: [facility] Address: [address] [place] [address] Performed By: #### 2 4344-4 ####[facility] LABCLIA [id number] [place] [address] [place] Oxyhemoglobin (BldV) [Mass fraction] 76 % Normal 60-85 [facility] Comment on above: Order Comment: Speci men Type: VENOUS BLOOD SPECIMENOrdering Facility: [facility] Address: [address] [place] [address] Performed By: #### 2 4344-4 ####[facility] LABCLIA [id number] [place] [id number] [place] pH (BldV) 7.43 [pH] High 7.32-7.42 [facility] Comment on above: Order Comment: Speci men Type: VENOUS BLOOD SPECIMENOrdering Facility: [facility] Address: [address] [place] [address] Performed By: #### 2 4344-4 ####[facility] LABCLIA [id number] [place] [address] [place] pH adjusted to patient's actual temperature (BldV) 7.44 High 7.32-7.42 [facility] Comment on above: Order Comment: Speci men Type: VENOUS BLOOD SPECIMENOrdering Facility: [facility] Address: [address] [place] [address] Performed By: #### 2 4344-4 ####[facility] LABIA [id number] [place] [address] [place] Potassium [Moles/Vol] 2.2 mmol/L Critically low 3.5-5.0 [facility] Comment on above: Order Comment: Speci men Type: VENOUS BLOOD SPECIMENOrdering Facility: [facility] Address: [address] [place] [address] Performed By: #### 2 4344-4 ####[facility] LABIA [id number] [place] [address] [place] Sodium [Moles/Vol] 147 mmol/L High 136-144 [facility] Comment on above: Order Comment: Speci men Type: VENOUS BLOOD SPECIMENOrdering Facility: [facility] Address: [address] [place] [address] Performed By: #### 2 4344-4 ####[facility] LABIA [id number] [place] [id number] [place] NURSING PROGon 12-10-2023 NURSING PROG Normal [facility] NURSING PROG Normal [facility] NURSING PROG Normal [facility] NURSING PROG Normal [facility] NURSING PROG Normal [facility] NURSING PROG Normal [facility] NURSING PROG Normal [facility] NURSING PROG Normal [facility] NURSING PROG Normal [facility] metabolic 2000 panelon 12-06-2023 Albumin [Mass/Vol] 4.3 g/dL 3.9 - 4.9 g/dL [facility] ALP [Catalytic activity/Vol] 147 U/L High 34 - 123 U/L [facility] ALT [Catalytic activity/Vol] 12 U/L 7 - 38 U/L [facility] Anion gap [Moles/Vol] 15 mmol/L 9 - 18 mmol/L [facility] AST [Catalytic activity/Vol] 18 U/L 13 - 35 U/L [facility] Bilirubin [Mass/Vol] 0.9 mg/dL 0.2 - 1 .3 mg/dL [facility] Calcium [Mass/Vol] 9.7 mg/dL 8.5 - 10. 2 mg/dL [facility] Chloride [Moles/Vol] 105 mmol/L 97 - 10 5 mmol/L [facility] CO2 [Moles/Vol] 27 mmol/L 22 - 30 mmol/L [facility] Creatinine [Mass/Vol] 0.76 mg/dL 0.58 - 0.96 mg/dL [facility] GFR/1.73 sq M.predicted among non-blacks MDRD (S/P/Bld) [Vol rate/Area] 107 mL/min/{1.73_m2} - PINF [facility] Comment on above: Estimated Glomerular Filtration [...] mg/dL 74 - 99 mg/dL [facility] Comment on above: The [place] Diabete s Association (ADA) provides guidance for [...] Standards of Medical Care in Diabetes 2016, [place] Diabetes Association. Diabetes Care. 2016.39(Suppl 1). Interpretation and review of laboratory results Abnormal [facility] Potassium [Moles/Vol] 2.4 mmol/L Critically low 3.7 - 5.1 mmol/L [facility] Protein [Mass/Vol] 6.8 g/dL 6.3 - 8.0 g/dL [facility] Sodium [Moles/Vol] 147 mmol/L High 136 - 144 mmol/L [facility] Urea nitrogen [Mass/Vol] 19 mg/dL 7 - 21 mg/dL [facility] Albumin [Mass/Vol] 4.3 g/dL Normal 3.9-4.9 [facility] Comment on above: Order Comment: Speci men Type: BLOOD SPECIMENOrdering Facility: [facility] Address: [address] [place] [address] Performed By: #### 2 4323-8 ####[facility] LABCLIA [id number] [place] [address] [place] ALP [Catalytic activity/Vol] 147 U/L High 34-123 [facility] Comment on above: Order Comment: Speci men Type: BLOOD SPECIMENOrdering Facility: [facility] Address: [address] [place] [address] Performed By: #### 2 4323-8 ####[facility] LABCLIA [id number] [place] [address] [place] ALT [Catalytic activity/Vol] 12 U/L Normal 7-38 [facility] Comment on above: Order Comment: Speci men Type: BLOOD SPECIMENOrdering Facility: [facility] Address: [address] [place] [address] Performed By: #### 2 4323-8 ####[facility] LABCLIA [id number] [place] [address] [place] Anion gap [Moles/Vol] 15 mmol/L Normal 9-18 [facility] Comment on above: Order Comment: Speci men Type: BLOOD SPECIMENOrdering Facility: [facility] Address: [address] [place], [place] [address] Performed By: #### 2 4323-8 ####[facility] LABCLIA [id number] [place] [address] [place] AST [Catalytic activity/Vol] 18 U/L Normal 13-35 [facility] Comment on above: Order Comment: Speci men Type: BLOOD SPECIMENOrdering Facility: [facility] Address: [address] [place] [address] Performed By: #### 2 4323-8 ####[facility] LABCLIA [id number] [place] [address] [place] Bilirubin [Mass/Vol] 0.9 mg/dL Normal 0.2-1.3 [facility] Comment on above: Order Comment: Speci men Type: BLOOD SPECIMENOrdering Facility: [facility] Address: [address] [place] [address] Performed By: #### 2 4323-8 ####[facility] LABCLIA [id number] [place] [address] [place] Calcium [Mass/Vol] 9.7 mg/dL Normal 8.5-10.2 [facility] Comment on above: Order Comment: Speci men Type: BLOOD SPECIMENOrdering Facility: [facility] Address: [address] [place], [place] [address] Performed By: #### 2 4323-8 ####[facility] LABCLIA [id number] [place] [id number] [place] Chloride [Moles/Vol] 105 mmol/L Normal 97-105 [facility] Comment on above: Order Comment: Speci men Type: BLOOD SPECIMENOrdering Facility: [facility] Address: [address] [place], [place] [address] Performed By: #### 2 4323-8 ####[facility] LABCLIA [id number] [place] [address] [place] CO2 [Moles/Vol] 27 mmol/L Normal 22-30 [facility] Comment on above: Order Comment: Speci men Type: BLOOD SPECIMENOrdering Facility: [facility] Address: [address] [place] [address] Performed By: #### 2 4323-8 ####[facility] LABCLIA [id number] [place] [address] [place] Creatinine [Mass/Vol] 0.76 mg/dL Normal 0.58-0.96 [facility] Comment on above: Order Comment: Speci men Type: BLOOD SPECIMENOrdering Facility: [facility] Address: [address] [place] [address] Performed By: #### 2 4323-8 ####[facility] LABCLIA [id number] [address] STATES OF [facility] Creatinine and Glomerular filtration rate.predicted panel (S/P/Bld) 107 mL/min/1.73m??? Normal >=60 [facility] Comment on above: Order Comment: Speci men Type: BLOOD SPECIMENOrdering Facility: [facility] Address: [address] [place] [address] Result Comment: Rachel mated Glomerular Filtration Rate [...] actual GFR. Performed By: #### 2 4323-8 ####[facility] LABCLIA [id number] [place] [address] [place] Glucose [Mass/Vol] 77 mg/dL Normal 74-99 [facility] Comment on above: Order Comment: Speci men Type: BLOOD SPECIMENOrdering Facility: [facility] Address: [address] [place] [address] Result Comment: The [place] Diabetes Association (ADA) provides guidance for cutoff [...] Standards of Medical Care in Diabetes 2016, [place] [employer]. Diabetes Care. 2016.39(Suppl 1). Performed By: #### 2 4323-8 ####[facility] LABCLIA [id number] [place] [address] [place] Potassium [Moles/Vol] 2.4 mmol/L Critically low 3.7-5.1 [facility] Comment on above: Order Comment: Speci men Type: BLOOD SPECIMENOrdering Facility: [facility] Address: [address] [place] [address] Performed By: #### 2 4323-8 ####[facility] LABCLIA [id number] [place] [address] [place] Protein [Mass/Vol] 6.8 g/dL Normal 6.3-8.0 [facility] Comment on above: Order Comment: Speci men Type: BLOOD SPECIMENOrdering Facility: [facility] Address: [address] [place] [address] Performed By: #### 2 4323-8 ####[facility] LABCLIA [id number] [place] [address] [place] Sodium [Moles/Vol] 147 mmol/L High 136-144 [facility] Comment on above: Order Comment: Speci men Type: BLOOD SPECIMENOrdering Facility: [facility] Address: [address] [place] [address] Performed By: #### 2 4323-8 ####[facility] LABCLIA [id number] [address] [address] [place] Urea nitrogen [Mass/Vol] 19 mg/dL Normal 7-21 [facility] Comment on above: Order Comment: Speci men Type: BLOOD SPECIMENOrdering Facility: [facility] Address: [address] [place], [place] [address] Performed By: #### 2 4323-8 ####[facility] LABCLIA [id number] [address] [address] [place] [id number] 12-06-2023 ECG01 Normal [facility] HISTORY PHYSICALon HISTORY PHYSICAL Normal [facility] CNPNon 11-19-2023 CNPN Normal [facility] Basic metabolic 2000 panelon 11-15-2023 Anion gap [Moles/Vol] 12 mmol/L Normal 9-18 [facility] Comment on above: Order Comment: Speci men Type: BLOOD SPECIMENOrdering Facility: [facility] Address: [address] [place] [address] Performed By: #### 2 4321-2 ####[facility] LABCLIA [id number] [place] [address] Calcium [Mass/Vol] 10.1 mg/dL Normal 8.5-10.2 [facility] Comment on above: Order Comment: Speci men Type: BLOOD SPECIMENOrdering Facility: [facility] Address: [address] [place] [address] Performed By: #### 2 4321-2 ####[facility] LABCLIA [id number] [place] [address] Chloride [Moles/Vol] 105 mmol/L Normal 97-105 [facility] Comment on above: Order Comment: Speci men Type: BLOOD SPECIMENOrdering Facility: [facility] Address: [address] [place] [address] Performed By: #### 2 4321-2 ####[facility] LABCLIA [id number] [place] [address] CO2 [Moles/Vol] 29 mmol/L Normal 22-30 [facility] Comment on above: Order Comment: Speci men Type: BLOOD SPECIMENOrdering Facility: [facility] Address: [address] [place] [address] Performed By: #### 2 4321-2 ####[facility] LABIA [id number] [place] [address] Creatinine [Mass/Vol] 0.84 mg/dL Normal 0.58-0.96 [facility] Comment on above: Order Comment: Speci men Type: BLOOD SPECIMENOrdering Facility: [facility] Address: [address] [place] [address] Performed By: #### 2 4321-2 ####[facility] [id number] [place] [address] Creatinine and Glomerular filtration rate.predicted panel (S/P/Bld) 95 mL/min/1.73m??? Normal >=60 [facility] Comment on above: Order Comment: Speci men Type: BLOOD SPECIMENOrdering Facility: [facility] Address: [address] [place] [address] Result Comment: Rachel mated Glomerular Filtration Rate [...] actual GFR. Performed By: #### 2 4321-2 ####[facility] LABIA [id number] [place] [address] Glucose [Mass/Vol] 76 mg/dL Normal 74-99 [facility] Comment on above: Order Comment: Speci men Type: BLOOD SPECIMENOrdering Facility: [facility] Address: [address] [place] [address] Result Comment: The [place] Diabetes Association (ADA) provides guidance for cutoff [...] Standards of Medical Care in Diabetes 2016, [place] [employer] Association. Diabetes Care. 2016.39(Suppl 1). Performed By: #### 2 4321-2 ####[facility] LABCLIA [id number] [place] [address] Potassium [Moles/Vol] 2.4 mmol/L Critically low 3.7-5.1 [facility] Comment on above: Order Comment: Speci men Type: BLOOD SPECIMENOrdering Facility: [facility] Address: [address] [place] [address] Performed By: #### 2 4321-2 ####[facility] LABIA [id number] [place] [address] Sodium [Moles/Vol] 146 mmol/L High 136-144 [facility] Comment on above: Order Comment: Speci men Type: BLOOD SPECIMENOrdering Facility: [facility] Address: [address] [place] [address] Performed By: #### 2 4321-2 ####[facility] LABCLIA [id number] [place] [address] Urea nitrogen [Mass/Vol] 9 mg/dL Normal 7-21 [facility] Comment on above: Order Comment: Speci men Type: BLOOD SPECIMENOrdering Facility: [facility] Address: [address] [place] [address] Performed By: #### 2 4321-2 ####[facility] LABCLIA [id number] [place] [address] CNPNon 11-15-2023 CNPN Normal [facility] Basic metabolic 2000 panelon 11-14-2023 Anion gap [Moles/Vol] 12 mmol/L 9 - 18 mmol/L [facility] Calcium [Mass/Vol] 9.6 mg/dL 8.5 - 10. 2 mg/dL [facility] Chloride [Moles/Vol] 106 mmol/L High 97 - 10 5 mmol/L [facility] CO2 [Moles/Vol] 29 mmol/L 22 - 30 mmol/L [facility] Creatinine [Mass/Vol] 0.66 mg/dL 0.58 - 0.96 mg/dL [facility] Estimated Glomerular Filtration Rate 120 mL/min/1.73m >=60 mL/min/1.7 3m [facility] Glucose [Mass/Vol] 97 mg/dL 74 - 99 mg/dL [facility] Potassium [Moles/Vol] 2.3 mmol/L Critically low 3.7 - 5.1 mmol/L [facility] Sodium [Moles/Vol] 147 mmol/L High 136 - 144 mmol/L [facility] Urea nitrogen [Mass/Vol] 7 mg/dL 7 - 21 mg/dL [facility] Anion gap [Moles/Vol] 12 mmol/L Normal 9-18 [facility] Comment on above: Order Comment: Speci men Type: BLOOD SPECIMENOrdering Facility: [facility] Address: [address] [place] [address] Performed By: #### 2 4321-2 ####[facility] LABCLIA [id number] [place] [address] [place] Calcium [Mass/Vol] 9.6 mg/dL Normal 8.5-10.2 [facility] Comment on above: Order Comment: Speci men Type: BLOOD SPECIMENOrdering Facility: [facility] Address: [address] [place] [address] Performed By: #### 2 4321-2 ####[facility] LABCLIA [id number] [address] [address] [place] Chloride [Moles/Vol] 106 mmol/L High 97-105 [facility] Comment on above: Order Comment: Speci men Type: BLOOD SPECIMENOrdering Facility: [facility] Address: [address] [place] [address] Performed By: #### 2 4321-2 ####[facility] LABCLIA [id number] [place] [address] [place] CO2 [Moles/Vol] 29 mmol/L Normal 22-30 [facility] Comment on above: Order Comment: Speci men Type: BLOOD SPECIMENOrdering Facility: [facility] Address: [address] [place] [address] Performed By: #### 2 4321-2 ####[facility] LABIA [id number] [address] STATES OF [facility] Creatinine [Mass/Vol] 0.66 mg/dL Normal 0.58-0.96 [facility] Comment on above: Order Comment: Speci men Type: BLOOD SPECIMENOrdering Facility: [facility] Address: [address] [place] [address] Performed By: #### 2 4321-2 ####[facility] LABIA [id number] [address] Creatinine and Glomerular filtration rate.predicted panel (S/P/Bld) 120 mL/min/1.73m??? Normal >=60 [facility] Comment on above: Order Comment: Speci men Type: BLOOD SPECIMENOrdering Facility: [facility] Address: [address] [place] [address] Result Comment: Rachel mated Glomerular Filtration Rate [...] actual GFR. Performed By: #### 2 4321-2 ####[facility] LABCLIA [id number] [place] [address] [place] Glucose [Mass/Vol] 97 mg/dL Normal 74-99 [facility] Comment on above: Order Comment: Speci men Type: BLOOD SPECIMENOrdering Facility: [facility] Address: [address] [place] [address] Result Comment: The [place] Diabetes Association (ADA) provides guidance for cutoff [...] Standards of Medical Care in Diabetes 2016, [place] [employer]. Diabetes Care. 2016.39(Suppl 1). Performed By: #### 2 4321-2 ####[facility] LABIA [id number] [place] [address] [place] Potassium [Moles/Vol] 2.3 mmol/L Critically low 3.7-5.1 [facility] Comment on above: Order Comment: Speci men Type: BLOOD SPECIMENOrdering Facility: [facility] Address: [address] [place] [address] Performed By: #### 2 4321-2 ####[facility] LABIA [id number] [place] [address] [place] Sodium [Moles/Vol] 147 mmol/L High 136-144 [facility] Comment on above: Order Comment: Speci men Type: BLOOD SPECIMENOrdering Facility: [facility] Address: [address] [place] [address] Performed By: #### 2 4321-2 ####[facility] LABIA [id number] [place] [address] [place] Urea nitrogen [Mass/Vol] 7 mg/dL Normal 7-21 [facility] Comment on above: Order Comment: Speci men Type: BLOOD SPECIMENOrdering Facility: [facility] Address: [address] [place] [address] Performed By: #### 2 4321-2 ####[facility] LABCLIA [id number] [facility] [address] [place] CBC W Auto Differential pane l (Bld)on 11-14-2023 Basophils (Bld) [#/Vol] 0.04 10*3/uL <0.11 k/uL [facility] Basophils/100 WBC (Bld) 0.6 % [facility] Differential cell count method Nom (Bld) Auto [facility] Eosinophils (Bld) [#/Vol] 0.10 10*3/uL <0.46 k/uL [facility] Eosinophils/100 WBC (Bld) 1.4 % [facility] Erythrocyte distribution width (RBC) [Ratio] 14.7 % 11.5 - 15.0 % [facility] Hematocrit (Bld) [Volume fraction] 43.9 % 36.0 - 46.0 % [facility] Hemoglobin (Bld) [Mass/Vol] 14.7 g/dL 11.5 - 15.5 g/dL [facility] Immature granulocytes (Bld) [#/Vol] <0.10 k/uL [facility] Immature granulocytes/100 WBC (Bld) 0.1 % [facility] Lymphocytes (Bld) [#/Vol] 1.93 10*3/uL 1.00 - 4.00 k/uL [facility] Lymphocytes/100 WBC (Bld) 27.7 % [facility] MCH (RBC) [Entitic mass] 28.5 pg 26.0 - 34.0 pg [facility] MCHC (RBC) [Mass/Vol] 33.5 g/dL 30.5 - 36.0 g/dL [facility] MCV (RBC) [Entitic vol] 85.2 fL 80.0 - 100.0 fL [facility] Monocytes (Bld) [#/Vol] 0.49 10*3/uL <0.87 k/uL [facility] Monocytes/100 WBC (Bld) 7.0 % [facility] Neutrophils (Bld) [#/Vol] 4.40 10*3/uL 1.45 - 7.50 k/uL [facility] Neutrophils/100 WBC (Bld) 63.2 % [facility] Nucleated RBC (Bld) [#/Vol] <0.01 k/uL [facility] Nucleated RBC/100 WBC (Bld) [Ratio] 0.0 /100 WBC [facility] Platelet mean volume (Bld) [Entitic vol] 11.3 fL 9.0 - 12.7 fL [facility] Platelets (Bld) [#/Vol] 204 10*3/uL 150 - 400 k/uL [facility] RBC (Bld) [#/Vol] 5.15 10*6/uL 3.90 - 5.20 m/uL [facility] WBC (Bld) [#/Vol] 6.97 10*3/uL 3.70 - 11.00 k/uL [facility] Basophils (Bld) [#/Vol] 0.04 10*3/uL Normal <0.11 [facility] Comment on above: Order Comment: Speci men Type: BLOOD SPECIMENOrdering Facility: [facility] Address: [address] [place] [address] Performed By: #### 5 7021-8 ####[facility] LABCLIA [id number] [place] [address] Basophils/100 WBC (Bld) 0.6 % Normal [facility] Comment on above: Order Comment: Speci men Type: BLOOD SPECIMENOrdering Facility: [facility] Address: [address] [place] [address] Performed By: #### 5 7021-8 ####[facility] LABCLIA [id number] [place] [address] Differential cell count method Nom (Bld) Auto Normal [facility] Comment on above: Order Comment: Speci men Type: BLOOD SPECIMENOrdering Facility: [facility] Address: [address] [place] [address] Performed By: #### 5 7021-8 ####[facility] LABCLIA [id number] [place] [address] Eosinophils (Bld) [#/Vol] 0.10 10*3/uL Normal <0.46 [facility] Comment on above: Order Comment: Speci men Type: BLOOD SPECIMENOrdering Facility: [facility] Address: [address] [place] [address] Performed By: #### 5 7021-8 ####[facility] LABCLIA [id number] [place] [address] Eosinophils/100 WBC (Bld) 1.4 % Normal [facility] Comment on above: Order Comment: Speci men Type: BLOOD SPECIMENOrdering Facility: [facility] Address: [address] [place] [address] Performed By: #### 5 7021-8 ####[facility] LABCLIA [id number] [place] [address] Erythrocyte distribution width (RBC) [Ratio] 14.7 % Normal 11.5-15.0 [facility] Comment on above: Order Comment: Speci men Type: BLOOD SPECIMENOrdering Facility: [facility] Address: [address] [place] [address] Performed By: #### 5 7021-8 ####[facility] LABCLIA [id number] [place] [address] Hematocrit (Bld) [Volume fraction] 43.9 % Normal 36.0-46.0 [facility] Comment on above: Order Comment: Speci men Type: BLOOD SPECIMENOrdering Facility: [facility] Address: [address] [place] [address] Performed By: #### 5 7021-8 ####[facility] LABIA [id number] [place] [address] Hemoglobin (Bld) [Mass/Vol] 14.7 g/dL Normal 11.5-15.5 [facility] Comment on above: Order Comment: Speci men Type: BLOOD SPECIMENOrdering Facility: [facility] Address: [address] [place] [address] Performed By: #### 5 7021-8 ####[facility] LABCLIA [id number] [place] [address] Immature granulocytes (Bld) [#/Vol] 10*3/uL Normal <0.10 [facility] Comment on above: Order Comment: Speci men Type: BLOOD SPECIMENOrdering Facility: [facility] Address: [address] [place] [address] Performed By: #### 5 7021-8 ####[facility] LABCLIA [id number] [place] [address] Immature granulocytes/100 WBC (Bld) 0.1 % Normal [facility] Comment on above: Order Comment: Speci men Type: BLOOD SPECIMENOrdering Facility: [facility] Address: [address] [place] [address] Performed By: #### 5 7021-8 ####[facility] LABCLIA [id number] [place] [address] Lymphocytes (Bld) [#/Vol] 1.93 10*3/uL Normal 1.00-4.00 [facility] Comment on above: Order Comment: Speci men Type: BLOOD SPECIMENOrdering Facility: [facility] Address: [address] [place] [address] Performed By: #### 5 7021-8 ####[facility] LABCLIA [id number] [place] [address] Lymphocytes/100 WBC (Bld) 27.7 % Normal [facility] Comment on above: Order Comment: Speci men Type: BLOOD SPECIMENOrdering Facility: [facility] Address: [address] [place] [address] Performed By: #### 5 7021-8 ####[facility] LABCLIA [id number] [place] [address] MCH (RBC) [Entitic mass] 28.5 pg Normal 26.0-34.0 [facility] Comment on above: Order Comment: Speci men Type: BLOOD SPECIMENOrdering Facility: [facility] Address: [address] [place] [address] Performed By: #### 5 7021-8 ####[facility] LABCLIA [id number] [place] [address] MCHC (RBC) [Mass/Vol] 33.5 g/dL Normal 30.5-36.0 [facility] Comment on above: Order Comment: Speci men Type: BLOOD SPECIMENOrdering Facility: [facility] Address: [address] [place] [address] Performed By: #### 5 7021-8 ####[facility] LABCLIA [id number] [place] [address] MCV (RBC) [Entitic vol] 85.2 fL Normal 80.0-100.0 [facility] Comment on above: Order Comment: Speci men Type: BLOOD SPECIMENOrdering Facility: [facility] Address: [address] [place] [address] Performed By: #### 5 7021-8 ####[facility] LABCLIA [id number] [place] [address] Monocytes (Bld) [#/Vol] 0.49 10*3/uL Normal <0.87 [facility] Comment on above: Order Comment: Speci men Type: BLOOD SPECIMENOrdering Facility: [facility] Address: [address] [place] [address] Performed By: #### 5 7021-8 ####[facility] LABIA [id number] [place] [address] Monocytes/100 WBC (Bld) 7.0 % Normal C [facility] Comment on above: Order Comment: Speci men Type: BLOOD SPECIMENOrdering Facility: [facility] Address: [address] [place] [address] Performed By: #### 5 7021-8 ####[facility] LABCLIA [id number] [place] [address] Neutrophils (Bld) [#/Vol] 4.40 10*3/uL Normal 1.45-7.50 [facility] Comment on above: Order Comment: Speci men Type: BLOOD SPECIMENOrdering Facility: [facility] Address: [address] [place] [address] Performed By: #### 5 7021-8 ####[facility] LABCLIA [id number] [place] [address] Neutrophils/100 WBC (Bld) 63.2 % Normal [facility] Comment on above: Order Comment: Speci men Type: BLOOD SPECIMENOrdering Facility: [facility] Address: [address] [place] [address] Performed By: #### 5 7021-8 ####[facility] LABCLIA [id number] [place] [address] Nucleated RBC (Bld) [#/Vol] 10*3/uL Normal <0.01 [facility] Comment on above: Order Comment: Speci men Type: BLOOD SPECIMENOrdering Facility: [facility] Address: [address] [place] [address] Performed By: #### 5 7021-8 ####[facility] LABCLIA [id number] [place] [address] Nucleated RBC/100 WBC (Bld) [Ratio] 0.0 /100 WBC Normal [facility] Comment on above: Order Comment: Speci men Type: BLOOD SPECIMENOrdering Facility: [facility] Address: [address] [place] [address] Performed By: #### 5 7021-8 ####[facility] LABCLIA [id number] [place] [address] Platelet mean volume (Bld) [Entitic vol] 11.3 fL Normal 9.0-12.7 [facility] Comment on above: Order Comment: Speci men Type: BLOOD SPECIMENOrdering Facility: [facility] Address: [address] [place] [address] Performed By: #### 5 7021-8 ####[facility] LABCLIA [id number] [place] [address] Platelets (Bld) [#/Vol] 204 10*3/uL Normal 150-400 [facility] Comment on above: Order Comment: Speci men Type: BLOOD SPECIMENOrdering Facility: [facility] Address: [address] [place] [address] Performed By: #### 5 7021-8 ####[facility] LABIA [id number] [place] [address] RBC (Bld) [#/Vol] 5.15 10*6/uL Normal 3.90-5.20 [facility] Comment on above: Order Comment: Speci men Type: BLOOD SPECIMENOrdering Facility: [facility] Address: [address] [place] [address] Performed By: #### 5 7021-8 ####[facility] LABIA [id number] [place] [address] WBC (Bld) [#/Vol] 6.97 10*3/uL Normal 3.70-11.00 [facility] Comment on above: Order Comment: Speci men Type: BLOOD SPECIMENOrdering Facility: [facility] Address: [address] [place] [address] Performed By: #### 5 7021-8 ####[facility] LABIA [id number] [place] [address] CNPNon 11-14-2023 CNPN Normal [facility] CONFIRM BLOOD TYPEon 024 ABO B Normal [facility] Comment on above: Order Comment: Speci men Type: BLOOD SPECIMENOrdering Facility: [facility] Address: [address] [place] [address] Performed By: #### C ONABO ####[facility] BANKCLIA [id number] [place] [id number] [place] Rh Nom (Bld) Negative Normal [facility] Comment on above: Order Comment: Speci men Type: BLOOD SPECIMENOrdering Facility: [facility] Address: [address] [place] [address] Performed By: #### C ONABO ####[facility] BLOOD BANKCLIA [id number] [address] TYPE AND SCREEN,30 DAYon ABO B Normal [facility] Comment on above: Order Comment: Speci men Type: BLOOD SPECIMENOrdering Facility: [facility] Address: [address] [place] [address] Performed By: #### T SCR30 ####[facility] BLO[facility] BANKCLIA [id number] [address] [place] HISTORICAL AB SCR STATUS Negative Normal [facility] Comment on above: Order Comment: Speci men Type: BLOOD SPECIMENOrdering Facility: [facility] Address: [address] [place] [address] Performed By: #### T SCR30 ####[facility] BLO[facility] BANKCLIA [id number] [address] [place] Rh Nom (Bld) Negative Normal [facility] Comment on above: Order Comment: Speci men Type: BLOOD SPECIMENOrdering Facility: [facility] Address: [address] [place] [address] Performed By: #### T SCR30 ####[facility]LO[facility] BANKCLIA [id number] [address] [place] CNPNon 10-25-2023 CNPN Normal [facility] Aldost SerPl-mCncon 10-23-19 Aldosterone [Mass/Vol] 131.0 ng/dL High 0.0-<35.4 C [facility] Comment on above: Order Comment: Speci men Type: BLOOD SPECIMENOrdering Facility: [facility] Address: [address] [place] [address] Result Comment: The reference interval for serum/plasma [...] 15 ng/dL. Performed By: #### 1 763-2 ####[facility] LABIA [id number] [place] [address] [place] Aldosterone [Mass/Vol] 7780.0 ng/dL High 0.0-<35.4 [facility] Comment on above: Order Comment: Peter myles Type: BLOOD SPECIMENOrdering Facility: [facility] Address: [address] [place] [address] Result Comment: The reference interval for serum/plasma [...] 15 ng/dL. Performed By: #### 1 763-2 ####[facility] LABCLIA [id number] [place] [address] [place] Aldosterone [Mass/Vol] 5530.0 ng/dL High 0.0-<35.4 [facility] Comment on above: Order Comment: Peter myles Type: BLOOD SPECIMENOrdering Facility: [facility] Address: [address] [place] [address] Result Comment: The reference interval for serum/plasma [...] 15 ng/dL. Performed By: #### 1 763-2 ####[facility] LABCLIA [id number] [place] [address] [place] Aldosterone [Mass/Vol] 6190.0 ng/dL High 0.0-<35.4 [facility] Comment on above: Order Comment: Peter myles Type: BLOOD SPECIMENOrdering Facility: [facility] Address: [address] [place] [address] Result Comment: The reference interval for serum/plasma [...] 15 ng/dL. Performed By: #### 1 763-2 ####[facility] LABCLIA [id number] [place] [address] [place] Aldosterone [Mass/Vol] 173.0 ng/dL High 0.0-<35.4 [facility] Comment on above: Order Comment: Peter myles Type: BLOOD SPECIMENOrdering Facility: [facility] Address: [address] [place] [address] Result Comment: The reference interval for serum/plasma [...] 15 ng/dL. Performed By: #### 1 763-2 ####[facility] LABCLIA [id number] [address] STATES [facility] Aldosterone [Mass/Vol] 160.0 ng/dL High 0.0-<35.4 C [facility] Comment on above: Order Comment: Joselyni men Type: BLOOD SPECIMENOrdering Facility: [facility] Address: [address] [place] [address] Result Comment: The reference interval for serum/plasma [...] 15 ng/dL. Performed By: #### 1 763-2 ####[facility] LABIA [id number] [address] Aldosterone [Mass/Vol] 166.0 ng/dL High 0.0-<35.4 [facility] Comment on above: Order Comment: Joselyni men Type: BLOOD SPECIMENOrdering Facility: [facility] Address: [address] [place] [address] Result Comment: The reference interval for serum/plasma [...] 15 ng/dL. Performed By: #### 1 763-2 ####[facility] LABIA [id number] [address] [place] BRIEF OP NOTon 10-23-2023 BRIEF OP NOT Normal [facility] Cortis SerPl-mCncon 10-23-19 24 Cortisol [Mass/Vol] 17.4 ug/dL Normal 4.8-19.5 [facility] Comment on above: Order Comment: Speci men Type: BLOOD SPECIMENOrdering Facility: [facility] Address: [address] [place] [address] Result Comment: Prov ided reference range is from 6-10 AM sample collection time.Cortisol Reference Range: 6-10 AM = 4.8-19.5 ug/dL, 4-8 PM = 2.5-11.9 ug/dL Performed By: #### 2 143-6 ####[facility] LABCLIA [id number] [place] [address] [place] Cortisol [Mass/Vol] 197.4 ug/dL High 4.8-19.5 [facility] Comment on above: Order Comment: Speci men Type: BLOOD SPECIMENOrdering Facility: [facility] Address: [address] [place] [address] Result Comment: Prov ided reference range is from 6-10 AM sample collection time.Cortisol Reference Range: 6-10 AM = 4.8-19.5 ug/dL, 4-8 PM = 2.5-11.9 ug/dL Performed By: #### 2 143-6 ####[facility] LABCLIA [id number] [place] [address] [place] Cortisol [Mass/Vol] 149.2 ug/dL High 4.8-19.5 [facility] Comment on above: Order Comment: Speci men Type: BLOOD SPECIMENOrdering Facility: [facility] Address: [address] [place] [address] Result Comment: Prov ided reference range is from 6-10 AM sample collection time.Cortisol Reference Range: 6-10 AM = 4.8-19.5 ug/dL, 4-8 PM = 2.5-11.9 ug/dL Performed By: #### 2 143-6 ####[facility] LABCLIA [id number] [place] [address] [place] Cortisol [Mass/Vol] 163.9 ug/dL High 4.8-19.5 [facility] Comment on above: Order Comment: Speci men Type: BLOOD SPECIMENOrdering Facility: [facility] Address: [address] [place] [address] Result Comment: Prov ided reference range is from 6-10 AM sample collection time.Cortisol Reference Range: 6-10 AM = 4.8-19.5 ug/dL, 4-8 PM = 2.5-11.9 ug/dL Performed By: #### 2 143-6 ####[facility] LABCLIA [id number] [place] [address] [place] Cortisol [Mass/Vol] 152.5 ug/dL High 4.8-19.5 [facility] Comment on above: Order Comment: Speci men Type: BLOOD SPECIMENOrdering Facility: [facility] Address: [address] [place] [address] Result Comment: Prov ided reference range is from 6-10 AM sample collection time.Cortisol Reference Range: 6-10 AM = 4.8-19.5 ug/dL, 4-8 PM = 2.5-11.9 ug/dL Performed By: #### 2 143-6 ####[facility] LABCLIA [id number] [place] [address] [place] Cortisol [Mass/Vol] 150.7 ug/dL High 4.8-19.5 [facility] Comment on above: Order Comment: Speci men Type: BLOOD SPECIMENOrdering Facility: [facility] Address: [address] [place] [address] Result Comment: Prov ided reference range is from 6-10 AM sample collection time.Cortisol Reference Range: 6-10 AM = 4.8-19.5 ug/dL, 4-8 PM = 2.5-11.9 ug/dL Performed By: #### 2 143-6 ####[facility] LABCLIA [id number] [place] [address] [place] Cortisol [Mass/Vol] 158.4 ug/dL High 4.8-19.5 [facility] Comment on above: Order Comment: Speci men Type: BLOOD SPECIMENOrdering Facility: [facility] Address: [address] [place] [address] Result Comment: Prov ided reference range is from 6-10 AM sample collection time.Cortisol Reference Range: 6-10 AM = 4.8-19.5 ug/dL, 4-8 PM = 2.5-11.9 ug/dL Performed By: #### 2 143-6 ####[facility] LABCLIA [id number] [facility] [id number] [place] [address] [place] HISTORY PHYSICALon HISTORY PHYSICAL Normal [facility] IR VENOUS SAMPLINGon 024 IR VENOUS SAMPLING Normal [facility] NURSING PROGon 10-23-2023 NURSING PROG Normal [facility] PT EDon 10-23-2023 PT ED Normal [facility] CBC W Auto Differential pane l (Bld)on 10-22-2023 Basophils (Bld) [#/Vol] 0.04 10*3/uL Normal <0.11 [facility] Comment on above: Order Comment: Speci men Type: BLOOD SPECIMENOrdering Facility: [facility] Address: [address] [place] [address] Performed By: #### 5 7021-8 ####[facility] LABCLIA [id number] [place] [address] Basophils/100 WBC (Bld) 0.5 % Normal [facility] Comment on above: Order Comment: Speci men Type: BLOOD SPECIMENOrdering Facility: [facility] Address: [address] [place] [address] Performed By: #### 5 7021-8 ####[facility] LABCLIA [id number] [place] [address] Differential cell count method Nom (Bld) Auto Normal [facility] Comment on above: Order Comment: Speci men Type: BLOOD SPECIMENOrdering Facility: [facility] Address: [address] [place] [address] Performed By: #### 5 7021-8 ####[facility] LABCLIA [id number] [place] [address] Eosinophils (Bld) [#/Vol] 0.22 10*3/uL Normal <0.46 [facility] Comment on above: Order Comment: Speci men Type: BLOOD SPECIMENOrdering Facility: [facility] Address: [address] [place] [address] Performed By: #### 5 7021-8 ####[facility] LABCLIA [id number] [place] [address] Eosinophils/100 WBC (Bld) 2.9 % Normal [facility] Comment on above: Order Comment: Speci men Type: BLOOD SPECIMENOrdering Facility: [facility] Address: [address] [place] [address] Performed By: #### 5 7021-8 ####[facility] LABCLIA [id number] [place] [address] Erythrocyte distribution width (RBC) [Ratio] 15.1 % High 11.5-15.0 [facility] Comment on above: Order Comment: Speci men Type: BLOOD SPECIMENOrdering Facility: [facility] Address: [address] [place] [address] Performed By: #### 5 7021-8 ####[facility] LABCLIA [id number] [place] [address] Hematocrit (Bld) [Volume fraction] 41.0 % Normal 36.0-46.0 [facility] Comment on above: Order Comment: Speci men Type: BLOOD SPECIMENOrdering Facility: [facility] Address: [address] [place] [address] Performed By: #### 5 7021-8 ####[facility] LABCLIA [id number] [place] [address] Hemoglobin (Bld) [Mass/Vol] 13.4 g/dL Normal 11.5-15.5 [facility] Comment on above: Order Comment: Speci men Type: BLOOD SPECIMENOrdering Facility: [facility] Address: [address] [place] [address] Performed By: #### 5 7021-8 ####[facility] LABCLIA [id number] [place] [address] Immature granulocytes (Bld) [#/Vol] 10*3/uL Normal <0.10 [facility] Comment on above: Order Comment: Speci men Type: BLOOD SPECIMENOrdering Facility: [facility] Address: [address] [place] [address] Performed By: #### 5 7021-8 ####[facility] LABCLIA [id number] [place] [address] Immature granulocytes/100 WBC (Bld) 0.3 % Normal [facility] Comment on above: Order Comment: Speci men Type: BLOOD SPECIMENOrdering Facility: [facility] Address: [address] [place] [address] Performed By: #### 5 7021-8 ####[facility] LABCLIA [id number] [place] [address] Lymphocytes (Bld) [#/Vol] 2.51 10*3/uL Normal 1.00-4.00 [facility] Comment on above: Order Comment: Speci men Type: BLOOD SPECIMENOrdering Facility: [facility] Address: [address] [place] [address] Performed By: #### 5 7021-8 ####[facility] LABCLIA [id number] [place] [address] Lymphocytes/100 WBC (Bld) 33.2 % Normal [facility] Comment on above: Order Comment: Speci men Type: BLOOD SPECIMENOrdering Facility: [facility] Address: [address] [place] [address] Performed By: #### 5 7021-8 ####[facility] LABCLIA [id number] [place] [address] MCH (RBC) [Entitic mass] 28.9 pg Normal 26.0-34.0 [facility] Comment on above: Order Comment: Speci men Type: BLOOD SPECIMENOrdering Facility: [facility] Address: [address] [place] [address] Performed By: #### 5 7021-8 ####[facility] LABCLIA [id number] [place] [address] MCHC (RBC) [Mass/Vol] 32.7 g/dL Normal 30.5-36.0 [facility] Comment on above: Order Comment: Speci men Type: BLOOD SPECIMENOrdering Facility: [facility] Address: [address] [place] [address] Performed By: #### 5 7021-8 ####[facility] LABIA [id number] [place] [address] MCV (RBC) [Entitic vol] 88.4 fL Normal 80.0-100.0 C [facility] Comment on above: Order Comment: Speci men Type: BLOOD SPECIMENOrdering Facility: [facility] Address: [address] [place] [address] Performed By: #### 5 7021-8 ####[facility] LABIA [id number] [place] [address] Monocytes (Bld) [#/Vol] 0.51 10*3/uL Normal <0.87 [facility] Comment on above: Order Comment: Speci men Type: BLOOD SPECIMENOrdering Facility: [facility] Address: [address] [place] [address] Performed By: #### 5 7021-8 ####[facility] LABIA [id number] [place] [address] Monocytes/100 WBC (Bld) 6.7 % Normal [facility] Comment on above: Order Comment: Speci men Type: BLOOD SPECIMENOrdering Facility: [facility] Address: [address] [place] [address] Performed By: #### 5 7021-8 ####[facility] LABCLIA [id number] [place] [address] Neutrophils (Bld) [#/Vol] 4.26 10*3/uL Normal 1.45-7.50 [facility] Comment on above: Order Comment: Speci men Type: BLOOD SPECIMENOrdering Facility: [facility] Address: [address] [place] [address] Performed By: #### 5 7021-8 ####[facility] LABCLIA [id number] [place] [address] Neutrophils/100 WBC (Bld) 56.4 % Normal [facility] Comment on above: Order Comment: Speci men Type: BLOOD SPECIMENOrdering Facility: [facility] Address: [address] [place] [address] Performed By: #### 5 7021-8 ####[facility] LABCLIA [id number] [place] [address] Nucleated RBC (Bld) [#/Vol] 10*3/uL Normal <0.01 [facility] Comment on above: Order Comment: Speci men Type: BLOOD SPECIMENOrdering Facility: [facility] Address: [address] [place] [address] Performed By: #### 5 7021-8 ####[facility] LABCLIA [id number] [place] [address] Nucleated RBC/100 WBC (Bld) [Ratio] 0.0 /100 WBC Normal [facility] Comment on above: Order Comment: Speci men Type: BLOOD SPECIMENOrdering Facility: [facility] Address: [address] [place] [address] Performed By: #### 5 7021-8 ####[facility] LABCLIA [id number] [place] [address] Platelet mean volume (Bld) [Entitic vol] 11.5 fL Normal 9.0-12.7 [facility] Comment on above: Order Comment: Speci men Type: BLOOD SPECIMENOrdering Facility: [facility] Address: [address] [place] [address] Performed By: #### 5 7021-8 ####[facility] LABCLIA [id number] [place] [address] Platelets (Bld) [#/Vol] 198 10*3/uL Normal 150-400 [facility] Comment on above: Order Comment: Speci men Type: BLOOD SPECIMENOrdering Facility: [facility] Address: [address] [place] [address] Performed By: #### 5 7021-8 ####[facility] LABIA [id number] [place] [address] RBC (Bld) [#/Vol] 4.64 10*6/uL Normal 3.90-5.20 [facility] Comment on above: Order Comment: Speci men Type: BLOOD SPECIMENOrdering Facility: [facility] Address: [address] [place] [address] Performed By: #### 5 7021-8 ####[facility] LABIA [id number] [place] [address] WBC (Bld) [#/Vol] 7.56 10*3/uL Normal 3.70-11.00 [facility] Comment on above: Order Comment: Speci men Type: BLOOD SPECIMENOrdering Facility: [facility] Address: [address] [place] [address] Performed By: #### 5 7021-8 ####[facility] LABIA [id number] [place] [address] Comprehensive metabolic 2000 panelon 10-22-2023 Albumin [Mass/Vol] 4.0 g/dL Normal 3.9-4.9 [facility] Comment on above: Order Comment: Speci men Type: BLOOD SPECIMENOrdering Facility: [facility] Address: [address] [place] [address] Performed By: #### 2 4323-8 ####[facility] LABCLIA [id number] [place] [address] ALP [Catalytic activity/Vol] 139 U/L High 34-123 [facility] Comment on above: Order Comment: Speci men Type: BLOOD SPECIMENOrdering Facility: [facility] Address: [address] [place] [address] Performed By: #### 2 4323-8 ####[facility] LABCLIA [id number] [place] [address] ALT [Catalytic activity/Vol] 10 U/L Normal 7-38 [facility] Comment on above: Order Comment: Speci men Type: BLOOD SPECIMENOrdering Facility: [facility] Address: [address] [place] [address] Performed By: #### 2 4323-8 ####[facility] LABCLIA [id number] [place] [address] Anion gap [Moles/Vol] 3 mmol/L Low 9-18 [facility] Comment on above: Order Comment: Speci men Type: BLOOD SPECIMENOrdering Facility: [facility] Address: [address] [place] [address] Performed By: #### 2 4323-8 ####[facility] LABCLIA [id number] [place] [address] AST [Catalytic activity/Vol] 14 U/L Normal 13-35 [facility] Comment on above: Order Comment: Speci men Type: BLOOD SPECIMENOrdering Facility: [facility] Address: [address] [place] [address] Performed By: #### 2 4323-8 ####[facility] LABCLIA [id number] [place] [address] Bilirubin [Mass/Vol] 0.4 mg/dL Normal 0.2-1.3 [facility] Comment on above: Order Comment: Speci men Type: BLOOD SPECIMENOrdering Facility: [facility] Address: [address] [place] [address] Performed By: #### 2 4323-8 ####[facility] LABCLIA [id number] [place] [address] Calcium [Mass/Vol] 8.9 mg/dL Normal 8.5-10.2 [facility] Comment on above: Order Comment: Speci men Type: BLOOD SPECIMENOrdering Facility: [facility] Address: [address] [place] [address] Performed By: #### 2 4323-8 ####[facility] LABCLIA [id number] [place] [address] Chloride [Moles/Vol] 110 mmol/L High 97-105 [facility] Comment on above: Order Comment: Speci men Type: BLOOD SPECIMENOrdering Facility: [facility] Address: [address] [place] [address] Performed By: #### 2 4323-8 ####[facility] LABCLIA [id number] [place] [address] CO2 [Moles/Vol] 30 mmol/L Normal 22-30 [facility] Comment on above: Order Comment: Speci men Type: BLOOD SPECIMENOrdering Facility: [facility] Address: [address] [place] [address] Performed By: #### 2 4323-8 ####[facility] LABCLIA [id number] [place] [address] Creatinine [Mass/Vol] 0.80 mg/dL Normal 0.58-0.96 [facility] Comment on above: Order Comment: Speci men Type: BLOOD SPECIMENOrdering Facility: [facility] Address: [address] [place], [place] [address] Performed By: #### 2 4323-8 ####[facility] LABCLIA [id number] [place] [address] Creatinine and Glomerular filtration rate.predicted panel (S/P/Bld) 101 mL/min/1.73m??? Normal >=60 [facility] Comment on above: Order Comment: Peter myles Type: BLOOD SPECIMENOrdering Facility: [facility] Address: [address] [place] [address] Result Comment: Rachel mated Glomerular Filtration Rate [...] actual GFR. Performed By: #### 2 4323-8 ####[facility] LABIA [id number] [place] [address] Glucose [Mass/Vol] 87 mg/dL Normal 74-99 [facility] Comment on above: Order Comment: Speccollins myles Type: BLOOD SPECIMENOrdering Facility: [facility] Address: [address] [place] [address] Result Comment: The [place] Diabetes Association (ADA) provides guidance for cutoff [...] Standards of Medical Care in Diabetes 2016, [place] Diabetes Association. Diabetes Care. 2016.39(Suppl 1). Performed By: #### 2 4323-8 ####[facility] LABIA [id number] [place] [address] Potassium [Moles/Vol] 2.8 mmol/L Low 3.7-5.1 [facility] Comment on above: Order Comment: Speci men Type: BLOOD SPECIMENOrdering Facility: [facility] Address: [address] [place] [address] Performed By: #### 2 4323-8 ####[facility] LABCLIA [id number] [place] [address] Protein [Mass/Vol] 6.2 g/dL Low 6.3-8.0 [facility] Comment on above: Order Comment: Speci men Type: BLOOD SPECIMENOrdering Facility: [facility] Address: [address] [place] [address] Performed By: #### 2 4323-8 ####[facility] LABCLIA [id number] [place] [address] Sodium [Moles/Vol] 143 mmol/L Normal 136-144 [facility] Comment on above: Order Comment: Speci men Type: BLOOD SPECIMENOrdering Facility: [facility] Address: [address] [place] [address] Performed By: #### 2 4323-8 ####[facility] LABCLIA [id number] [place] [address] Urea nitrogen [Mass/Vol] 23 mg/dL High 7-21 [facility] Comment on above: Order Comment: Speci men Type: BLOOD SPECIMENOrdering Facility: [facility] Address: [address] [place] [address] Performed By: #### 2 4323-8 ####[facility] LABCLIA [id number] [place] [address] PT panel Coag (PPP)on 2023 INR Coag (PPP) [Relative time] 1.0 {INR} Normal 0.9-1.3 [facility] Comment on above: Order Comment: Speci men Type: BLOOD SPECIMENOrdering Facility: [facility] Address: [address] [place] [address] Result Comment: Trice min K Antagonist (VKA) Therapeutic Range: INR 2 to 3 (Target INR of 2.5)Note: For patients treated with VKA drugs, such as warfarin, the [place] [employer] 2012 Guideline recommends [...] al. Chest 2012, 141:7S-47SNishimura RA, et al. [facility] 2017, 70: 252-289 Performed By: #### 3 4528-0 ####[facility] LABCLIA [id number] [place] [address] [place] PT Coag (PPP) [Time] 10.2 s Normal 9.7-13.0 [facility] Comment on above: Order Comment: Speci men Type: BLOOD SPECIMENOrdering Facility: [facility] Address: [address] [place] [address] Performed By: #### 3 4528-0 ####[facility] LABCLIA [id number] [place] [address] [place] NURSING PROGon 10-17-2023 NURSING PROG Normal [facility] POTASSIUM BLDon 10-11-2023 Potassium [Moles/Vol] 2.6 mmol/L Low 3.7-5.1 [facility] Comment on above: Order Comment: Speci men Type: BLOOD SPECIMENOrdering Facility: [facility] Address: [address] [place] [address] Performed By: #### K 1 ####[facility] LABCLIA [id number] [place] [id number] ALL POTASSIUMon 09-12-2023 Interpretation and review of laboratory results Abnormal [facility] Potassium [Moles/Vol] 2.7 mmol/L Critically low 3.5 - 5.1 mmol/L [facility] Comment on above: RESULTS CALLED TO [facility] Aldost 24h Ur-mRateon 2023 Aldosterone (24H U) [Mass/Time] 63.6 ug/24hr High 3.0-<28.1 [facility] Comment on above: Order Comment: Speci men Type: URINE SPECIMENOrdering Facility: [facility] Address: [address] [place] [address] Performed By: #### 1 765-7 ####[facility] LABCLIA [id number] [address] LABCLIA [id number] [place] [address] CATECHOLAMINES FRACTIONATED, URINE FREEon 09-10-2023 CATECHOLAMINES INTERPRETATION See Note Normal [facility] Comment on above: Order Comment: Speci men Type: TIMED URINE SPECIMENOrdering Facility: [facility] Address: [address] [place] [address] Result Comment: TEST INFORMATION: Catecholamines Fractionated, Urine FreeSmaller increases in catecholamine concentrations (less than twotimes the upper limit) usually are the result of physiologicalstimuli, drugs, or improper specimen collection. Significantelevation of one or more catecholamines (three or more times theupper reference limit) is associated with an increased probabilityof a neuroendocrine tumor.Access complete set of age- and/or gender-specific referenceintervals for this test in the [facility] Test Directory([employer]).This test was developed and its performance characteristicsdetermined by [employer]. It has not been cleared orapproved by the [place] Food and Drug Administration. This test wasperformed in a CLIA certified laboratory and is intended forclinical purposes. Performed By: #### U RCAT2 ####[facility] LABORATORIESCLIA [id number] [place] [address] CREATININE UR, PER 24H 1134 mg/d Normal 700-1600 [facility] Comment on above: Order Comment: Speci men Type: TIMED URINE SPECIMENOrdering Facility: [facility] Address: [address] [place] [address] Result Comment: Perf ormed By: [address] [id number] Director: Adis Casillas MD, PhDCLIA Number: [id number] Performed By: #### U RCAT2 ####[facility] [id number] [place] [address] Performed By: #### U FRCRT ####[facility] [id number] [place] [address] CREATININE UR, PER VOLUME 54 mg/dL Normal [facility] Comment on above: Order Comment: Speci men Type: TIMED URINE SPECIMENOrdering Facility: [facility] Address: [address] [place] [address] Performed By: #### U RCAT2 ####[facility] LABORATORIESCLIA [id number] [place] [address] Performed By: #### U FRCRT ####[facility]ITAL[facility] [id number] [place] [address] DOPAMINE, UR 24HR 422 ug/d Normal 71-485 [facility] Comment on above: Order Comment: Speci men Type: TIMED URINE SPECIMENOrdering Facility: [facility] Address: [address] [place] [address] Result Comment: REFE RENCE INTERVAL: Dopamine, Urine - ug/dAccess complete set of age- and/or gender-specific referenceintervals for this test in the [facility] Test Directory([employer]). Performed By: #### U RCAT2 ####[facility] LABORATORIESCLIA [id number] [place] [address] DOPAMINE, UR PER VOL 201 ug/L Normal [facility] Comment on above: Order Comment: Speci men Type: TIMED URINE SPECIMENOrdering Facility: [facility] Address: [address] [place] [address] Performed By: #### U RCAT2 ####[facility] LABORATORIESCLIA [id number] [place] [address] DOPAMINE, UR RATIO TO SENIOR GRAPHIC DESIGNER 372 ug/g SENIOR GRAPHIC DESIGNER High 0-250 [facility] Comment on above: Order Comment: Speci men Type: TIMED URINE SPECIMENOrdering Facility: [facility] Address: [address] [place] [address] Performed By: #### U RCAT2 ####[facility]ORATORIESCLIA [id number] [place] [address] EPINEPHRINE, UR 24HR 4 ug/d Normal 1-14 [facility] Comment on above: Order Comment: Speci men Type: TIMED URINE SPECIMENOrdering Facility: [facility] Address: [address] [place] [address] Result Comment: REFE RENCE INTERVAL: Epinephrine, Urine - ug/dAccess complete set of age- and/or gender-specific referenceintervals for this test in the [facility] Test Directory([employer]). Performed By: #### U RCAT2 ####[facility]OR[facility]IESCLIA [id number] [place] [address] EPINEPHRINE, UR PER VOL 2 ug/L Normal [facility] Comment on above: Order Comment: Speci men Type: TIMED URINE SPECIMENOrdering Facility: [facility] Address: [address] [place] [address] Performed By: #### U RCAT2 ####[facility]ORATORIESCLIA [id number] [place] [address] EPINEPHRINE, UR RATIO TO SENIOR GRAPHIC DESIGNER 4 ug/g SENIOR GRAPHIC DESIGNER Normal 0-20 [facility] Comment on above: Order Comment: Speci men Type: TIMED URINE SPECIMENOrdering Facility: [facility] Address: [address] [place] [address] Performed By: #### U RCAT2 ####[facility]ORATORIESCLIA [id number] [place] [address] HOURS COLLECTED 24 hr Normal [facility] Comment on above: Order Comment: Speci men Type: TIMED URINE SPECIMENOrdering Facility: [facility] Address: [address] [place] [address] Result Comment: Per 24h calculations are provided to aid interpretation forcollections with a duration of 24 hours and an average daily urinevolume. For specimens with notable deviations in collection timeor volume, ratios of analytes to a corresponding urine creatinineconcentration may assist in result interpretation. Performed By: #### U RCAT2 ####[facility]ORATORIESCLIA [id number] [place] [address] Performed By: #### U FRCRT ####[facility]ORATORIESCLIA [id number] [place] [address] NOREPINEPHRINE, UR 24HR 21 ug/d Normal 14-120 [facility] Comment on above: Order Comment: Speci men Type: TIMED URINE SPECIMENOrdering Facility: [facility] Address: [address] [place] [address] Result Comment: REFE RENCE INTERVAL: Norepinephrine, Urine - ug/dAccess complete set of age- and/or gender-specific referenceintervals for this test in the [employer] [facility] Test Directory([employer]). Performed By: #### U RCAT2 ####[facility]ORATORIESCLIA [id number] [place] [address] NOREPINEPHRINE, UR PER VOL 10 ug/L Normal [facility] Comment on above: Order Comment: Speci men Type: TIMED URINE SPECIMENOrdering Facility: [facility] Address: [address] [place] [address] Performed By: #### U RCAT2 ####[facility]ORATORIESCLIA [id number] [place] [address] NOREPINEPHRINE, UR RATIO TO SENIOR GRAPHIC DESIGNER 19 ug/g SENIOR GRAPHIC DESIGNER Normal 0-45 [facility] Comment on above: Order Comment: Speci men Type: TIMED URINE SPECIMENOrdering Facility: [facility] Address: [address] [place] [address] Performed By: #### U RCAT2 ####[facility]ORATORIESCLIA [id number] [place] [address] TOTAL VOLUME 2100 mL Normal [facility] Comment on above: Order Comment: Speci men Type: TIMED URINE SPECIMENOrdering Facility: [facility] Address: [address] [place] [address] Performed By: #### U RCAT2 ####[facility]ORATORIESCLIA [id number] [place] [address] Performed By: #### U FRCRT ####[facility]ORATORIESCLIA [id number] [place] [address] CREATININE BLDon 09-10-2023 Creatinine [Mass/Vol] 0.90 mg/dL Normal 0.58-0.96 [facility] Comment on above: Order Comment: Speci men Type: BLOOD SPECIMENOrdering Facility: [facility] Address: [address] [place] [address] Performed By: #### C RET1 ####[facility] LABCLIA [id number] [place] [address] Creatinine and Glomerular filtration rate.predicted panel (S/P/Bld) 87 mL/min/1.73m??? Normal >=60 [facility] Comment on above: Order Comment: Speci men Type: BLOOD SPECIMENOrdering Facility: [facility] Address: [address] [place] [address] Result Comment: Rachel mated Glomerular Filtration Rate [...] actual GFR. Performed By: #### C RET1 ####[facility] LABCLIA [id number] [place] [address] CREATININE CLEARANCE, UR 24H Diaz 09-10-2023 Creatinine (24H U) [Mass/Time] 1.100 g/24 hr Normal 0.800-1.80 0 [facility] Comment on above: Order Comment: Speci men Type: URINE SPECIMENOrdering Facility: [facility] Address: [address] [place], [place] [address] Performed By: #### L [id number] ####[facility] LABCLIA [id number] [place] [id number] [facility] LABCLIA [id number] [place] [address] Creatinine renal clearance (24H U+S/P) [Vol/Time] 65.9 mL/min Low 75.0-115.0 [facility] Comment on above: Order Comment: Speci men Type: URINE SPECIMENOrdering Facility: [facility] Address: [address] [place] [address] Result Comment: Resu lt corrected for standard body surface area. Performed By: #### L [id number] ####[facility] LABCLIA [id number] [address] LABCLIA [id number] [place] [address] PERIOD (HRS) 24 hr Normal [facility] Comment on above: Order Comment: Speci men Type: URINE SPECIMENOrdering Facility: [facility] Address: [address] [place] [address] Performed By: #### L [id number] ####[facility] LABCLIA [id number] [address] LABCLIA [id number] [place] [address] Performed By: #### 1 765-7 ####[facility] LABCLIA [id number] [address] LABCLIA [id number] [place] [address] Order Comment: Speci men Type: TIMED URINE SPECIMENOrdering Facility: [facility] Address: [address] [place] [address] Performed By: #### U METAN ####[facility] LABCLIA [id number] [address] [facility] [address] LABCLIA [id number] [place] [address] Specimen volume (24H U) 2.1 L Normal C [facility] Comment on above: Order Comment: Speci men Type: URINE SPECIMENOrdering Facility: [facility] Address: [address] [place] [address] Performed By: #### L [id number] ####[facility] LABCLIA [id number] [place] [id number] [facility] LABCLIA [id number] [place] [address] Performed By: #### 1 765-7 ####[facility] LABCLIA [id number] [place] [address] [facility] LABCLIA [id number] [place] [address] Order Comment: Speci men Type: TIMED URINE SPECIMENOrdering Facility: [facility] Address: [address] [place] [address] Performed By: #### U METAN ####[facility] LABCLIA [id number] [place] [address] [facility] LABCLIA [id number] [place] [address] METANEPHRINES 24H URon 09-10 Metanephrines (24H U) [Mass/Time] 246 ug/24 hr Normal 140-785 [facility] Comment on above: Order Comment: Speci men Type: TIMED URINE SPECIMENOrdering Facility: [facility] Address: [address] [place] [address] Result Comment: Test performed at [facility] reference range.Smaller increases in metanephrine and/or normetanephrine [...] reference intervals for this test in the [facility] Test Directory ([employer]).This test was developed and its performance characteristics determined by the [facility]. It has not been cleared or approved by the US Food and Drug Administration. This test was performed in a CLIA certified laboratory and is intended for clinical purposes. Performed By: #### U METAN ####[facility] LABIA [id number] [address] LABIA [id number] [place] [address] NORMETANEPHRINES, UR 141 ug/24 hr Normal 88-444 [facility] Comment on above: Order Comment: Speci men Type: TIMED URINE SPECIMENOrdering Facility: [facility] Address: [address] [place] [address] Performed By: #### U METAN ####[facility] LABIA [id number] [address] LABIA [id number] [place] [address] URINE FREE CORTISOL BY LC-MS /MSon 09-10-2023 CORTISOL UG/G SENIOR GRAPHIC DESIGNER, UR (UFRCRT) 16.94 ug/g SENIOR GRAPHIC DESIGNER Normal [facility] Comment on above: Order Comment: Speci men Type: TIMED URINE SPECIMENOrdering Facility: [facility] Address: [address] [place] [address] Result Comment: Refe rence Interval: Cortisol ug/g crtFemalePrepubertal: Less than 25 ug/g crt18 years and older: Less than 24 ug/g crtPregnancy: Less than 59 ug/g crtMalePrepubertal: Less than 25 ug/g crt18 years and older: Less than 32 ug/g stitchdown thread laster Performed By: #### U FRCRT ####[facility] 234 BEDS AT THE [facility]ITALCLIA [id number] [place] [address] FREE CORTISOL UG/DAY, URINE 19.2 ug/d Normal <=45.0 [facility] Comment on above: Order Comment: Speci men Type: TIMED URINE SPECIMENOrdering Facility: [facility] Address: [address] [place] [address] Performed By: #### U FRCRT ####[facility] 234 BEDS AT [facility]ITALCLIA [id number] [place] [address] FREE CORTISOL UG/L, URINE 9.15 ug/L Normal [facility] Comment on above: Order Comment: Speci men Type: TIMED URINE SPECIMENOrdering Facility: [facility] Address: [address] [place] [address] Performed By: #### U FRCRT ####[facility]ITALIA [id number] [place] [address] UR MER FREE INTERP See Note Normal [facility] Comment on above: Order Comment: Speci men Type: TIMED URINE SPECIMENOrdering Facility: [facility] Address: [address] [place] [address] Result Comment: INTE RPRETIVE INFORMATION: Cortisol Urine Free by LC-MS/MSAccess complete set of age- and/or gender-specific referenceintervals for this test in the [facility] Test Directory([employer]).This test was developed and its performance characteristicsdetermined by [facility]. It has not been cleared orapproved by the US Food and Drug Administration. This test wasperformed in a CLIA certified laboratory and is intended forclinical purposes.Performed By: [facility] [place] [id number] Director: Adis Casillas MD, PhDCLIA Number: [id number] Performed By: #### U FRCRT ####[facility]ITALIA [id number] [place] [address] [facility] CORTIS P DEX SERPL-MCNCo n 09-06-2023 [facility] CORTIS P DEX SERPL-MCNC 0.9 ug/dL NINF - 1.8 ug/dL [facility] Comment on above: After overnight 1 mg dexamethasone, an returns supervisor cortisol of <1.8 ug/dL may indicate an adequate cortisol suppression. This result should be interpreted within the clinical context and other test results. Samra et al. Evidence for the Low Dose Dexamethasone Suppression Test to Screen for Mohit's Syndrome - Recommendations for a Protocol for Biochemistry Laboratories. 1996 [facility]. [facility]. Biochem. 34 222-229. Specimen Type: BLOOD SPECIMEN [facility] Address: [address] [place] [address] Original Ordering Provider: VIKKI LUO [facility] CNPNon 09-06-2023 CNPN Normal [facility] Cortis p Dex SerPl-mCncon Cortisol post dose dexamethasone [Mass/Vol] 0.9 ug/dL Normal <1.8 [facility] Comment on above: Order Comment: Speci men Type: BLOOD SPECIMENOrdering Facility: [facility] Address: [address] [place] [address] Result Comment: Afte r overnight 1 mg dexamethasone, an returns supervisor cortisol of <1.8 ug/dL may indicate an adequate cortisol suppression. This result should be interpreted within the clinical context and other test results.Samra et al. Evidence for the Low Dose Dexamethasone Suppression Test to Screen for Mohit's Syndrome - Recommendations for a Protocol for Biochemistry Laboratories. 1996 [facility]. Clin. Biochem. 34 222-229. Performed By: #### 4 7851-1 ####[facility] LABCLIA [id number] [place] [address] [place] DEXAMETHASONEon 09-06-2023 DEXAMETHASONE 236.1 ng/dL Normal [facility] Comment on above: Order Comment: Speci men Type: BLOOD SPECIMENOrdering Facility: [facility] Address: [address] [place] [address] Result Comment: INTE RPRETIVE INFORMATION: Dexamethasone, Serum or Plasma by LC-MS/MSAdults baseline: Less than 50 ng/dL8:00 AM draw following 1 mg dexamethasone between 11:00 pm and12:00 am the previous evenin - 295 ng/dL8:00 AM draw following 8 mg dexamethasone (4 x 2 mg doses) drujnea45:00 pm and 12:00 am the previous evenin - 2850 ng/dLThis test was developed and its performance characteristicsdetermined by [facility]. It has not been cleared orapproved by the US Food and Drug Administration. This test wasperformed in a CLIA certified laboratory and is intended forclinical purposes.Performed By: [facility] [place], [place] [id number] Director: Adis Casillas MD, PhDCLIA Number: [id number] Performed By: #### D EXA ####[facility] Energid TechnologiesIA [id number] [place] [address] CNPNon 09-05-2023 CNPN Normal [facility] CNPNon 09-04-2023 CNPN Normal [facility] US renal doppleron US renal doppler [facility] [place] [address] Ultrasound Report Signed Patient: Heidi Joy MR#: [id number] 640 : 1990 Acct:[id number] Age/Sex: 33 / F ADM Date: 08/30/23 Loc: Room: Type: [facility] Attending Dr: Zara Ralph MD Ordering Provider: Zara Ralph MD Date of Service: 08/30/23 US/US renal doppler: E87.6, E87.3, I10. E27.9 Copies to: Zara Ralph MD Renal artery duplex examination performed using B-mode, color flow and spectral Doppler assessment. (CPT: 19437) INDICATION: Hypertension FINDINGS: Aorta: PSV 94.9 cm/s [...] Efrem Jo MD08/31/2023 3:55 PM Dictation Location: [place] [address] Tech: Hermelinda Gavin Transcribed By: KATHLEEN 08/31/23 1555 Dictated By: Efrem Jo MD 08/31/231553 Signed By: 08/31/23 155 Normal [facility] ACTH Plas-mCncon 08-30-2023 Corticotropin (P) [Mass/Vol] 22.2 pg/mL Normal 7.2-63.3 [facility] Comment on above: Order Comment: Speci men Type: BLOOD SPECIMENOrdering Facility: [facility] Address: [address] [place] [address] Result Comment: ACTH Reference Range: 7-10 am: 7.2 - 63.3 pg/mL Performed By: #### 2 141-0 ####[facility] LABCLIA [id number] [address] STATES OF [facility] Aldost SerPl-mCncon 08-30-19 Aldosterone [Mass/Vol] 79.8 ng/dL High 0.0-<35.4 [facility] Comment on above: Order Comment: [facility] Type: BLOOD SPECIMENOrdering Facility: [facility] Address: [address] [place] [address] Result Comment: The reference interval for serum/plasma [...] 15 ng/dL. Performed By: #### R ENIND ####[facility] LABCLIA [id number] [address] [address] [facility] LABCLIA [id number] [place] [address]#### 1763-2 ####[facility] LABCLIA [id number] [place] [id number] [facility] Comprehensive metabolic 2000 panelon 08-30-2023 Albumin [Mass/Vol] 4.2 g/dL Normal 3.9-4.9 [facility] Comment on above: Order Comment: Speci men Type: BLOOD SPECIMENOrdering Facility: [facility] Address: [address] [place] [address] Performed By: #### 2 4323-8 ####[facility] LABCLIA [id number] [place] [address] ALP [Catalytic activity/Vol] 127 U/L High 34-123 [facility] Comment on above: Order Comment: Speci men Type: BLOOD SPECIMENOrdering Facility: [facility] Address: [address] [place] [address] Performed By: #### 2 4323-8 ####[facility] LABCLIA [id number] [place] [address] ALT [Catalytic activity/Vol] 16 U/L Normal 7-38 [facility] Comment on above: Order Comment: Speci men Type: BLOOD SPECIMENOrdering Facility: [facility] Address: [address] [place] [address] Performed By: #### 2 4323-8 ####[facility] LABCLIA [id number] [place] [address] Anion gap [Moles/Vol] 10 mmol/L Normal 9-18 [facility] Comment on above: Order Comment: Speci men Type: BLOOD SPECIMENOrdering Facility: [facility] Address: [address] [place] [address] Performed By: #### 2 4323-8 ####[facility] LABCLIA [id number] [place] [address] AST [Catalytic activity/Vol] 14 U/L Normal 13-35 [facility] Comment on above: Order Comment: Speci men Type: BLOOD SPECIMENOrdering Facility: [facility] Address: [address] [place] [address] Performed By: #### 2 4323-8 ####[facility] LABCLIA [id number] [place] [address] Bilirubin [Mass/Vol] 1.2 mg/dL Normal 0.2-1.3 [facility] Comment on above: Order Comment: Speci men Type: BLOOD SPECIMENOrdering Facility: [facility] Address: [address] [place] [address] Performed By: #### 2 4323-8 ####[facility] LABCLIA [id number] [place] [address] Calcium [Mass/Vol] 9.4 mg/dL Normal 8.5-10.2 [facility] Comment on above: Order Comment: Speci men Type: BLOOD SPECIMENOrdering Facility: [facility] Address: [address] [place] [address] Performed By: #### 2 4323-8 ####[facility] LABCLIA [id number] [place] [address] Chloride [Moles/Vol] 109 mmol/L High 97-105 [facility] Comment on above: Order Comment: Speci men Type: BLOOD SPECIMENOrdering Facility: [facility] Address: [address] [place] [address] Performed By: #### 2 4323-8 ####[facility] LABCLIA [id number] [place] [address] CO2 [Moles/Vol] 27 mmol/L Normal 22-30 [facility] Comment on above: Order Comment: Speci men Type: BLOOD SPECIMENOrdering Facility: [facility] Address: [address] [place] [address] Performed By: #### 2 4323-8 ####[facility] LABCLIA [id number] [place] [address] Creatinine [Mass/Vol] 0.66 mg/dL Normal 0.58-0.96 [facility] Comment on above: Order Comment: Speci men Type: BLOOD SPECIMENOrdering Facility: [facility] Address: [address] [place] [address] Performed By: #### 2 4323-8 ####[facility] LABCLIA [id number] [place] [address] Creatinine and Glomerular filtration rate.predicted panel (S/P/Bld) 120 mL/min/1.73m??? Normal >=60 [facility] Comment on above: Order Comment: Speci men Type: BLOOD SPECIMENOrdering Facility: [facility] Address: [address] [place] [address] Result Comment: Rachel mated Glomerular Filtration Rate [...] actual GFR. Performed By: #### 2 4323-8 ####[facility] LABCLIA [id number] [place] [address] Glucose [Mass/Vol] 91 mg/dL Normal 74-99 [facility] Comment on above: Order Comment: Speci men Type: BLOOD SPECIMENOrdering Facility: [facility] Address: [address] [place], [place] [address] Result Comment: The [place] Diabetes Association (ADA) provides guidance for cutoff [...] Standards of Medical Care in Diabetes 2016, [place] Diabetes Association. Diabetes Care. 2016.39(Suppl 1). Performed By: #### 2 4323-8 ####[facility] LABCLIA [id number] [place] [address] Potassium [Moles/Vol] 2.8 mmol/L Low 3.7-5.1 [facility] Comment on above: Order Comment: Speci men Type: BLOOD SPECIMENOrdering Facility: [facility] Address: [address] [place] [address] Performed By: #### 2 4323-8 ####[facility] LABCLIA [id number] [place] [address] Protein [Mass/Vol] 6.7 g/dL Normal 6.3-8.0 [facility] Comment on above: Order Comment: Speci men Type: BLOOD SPECIMENOrdering Facility: [facility] Address: [address] [place] [address] Performed By: #### 2 4323-8 ####[facility] LABCLIA [id number] [place] [address] Sodium [Moles/Vol] 146 mmol/L High 136-144 [facility] Comment on above: Order Comment: Speci men Type: BLOOD SPECIMENOrdering Facility: [facility] Address: [address] [place] [address] Performed By: #### 2 4323-8 ####[facility] LABCLIA [id number] [place] [address] Urea nitrogen [Mass/Vol] 12 mg/dL Normal 7-21 [facility] Comment on above: Order Comment: Speci men Type: BLOOD SPECIMENOrdering Facility: [facility] Address: [address] [place], [place] [address] [address] Performed By: #### 2 4323-8 ####[facility] LABCLIA [id number] [place] [address] Tamie SerPl-mCncon 08-30-19 24 Cortisol [Mass/Vol] 9.5 ug/dL Normal 4.8-19.5 [facility] Comment on above: Order Comment: Speci men Type: BLOOD SPECIMENOrdering Facility: [facility] Address: [address] [place] [address] Result Comment: Prov ided reference range is from 6-10 AM sample collection time.Cortisol Reference Range: 6-10 AM = 4.8-19.5 ug/dL, 4-8 PM = 2.5-11.9 ug/dL Performed By: #### Jael NAVARRO, 6 ####[facility] LABCLIA [id number] [place] [id number] [place] DHEA-S BLDon 08-30-2023 DHEA-S [Mass/Vol] 188.1 ug/dL Normal 98.8-340.0 [facility] Comment on above: Order Comment: Speci men Type: BLOOD SPECIMENOrdering Facility: [facility] Address: [address] [place] [address] Result Comment: Refe rence ranges are age and gender specific. For additional information, reference range tables can be found in the laboratory test directory.The normal values are based on the following source: Dehydroepiandrosterone sulfate (DHEA S) [package insert V 17.0 Sinhala]. [facility], [place], [place]: March 2013. Performed By: #### Jael NAVARRO, 6 ####[facility] LABCLIA [id number] [address] [address] [place] DIRECT RENIN PLASMAon 2023 DIRECT RENIN <2.1 Low 4.2-52.2 [facility] Comment on above: Order Comment: Speci men Type: BLOOD SPECIMENOrdering Facility: [facility] Address: [address] [place] [address] Result Comment: A ra yue of aldosterone [...] 2.5-45.1 pg/mL Performed By: #### R ENIND ####[facility] LABCLIA [id number] [address] LABCLIA [id number] [place] [address]#### 1763-2 ####[facility] LABCLIA [id number] [place] [address] [place] PATIENT UPRIGHT OR SUPINE Upright Normal [facility] Comment on above: Order Comment: Speci men Type: BLOOD SPECIMENOrdering Facility: [facility] Address: [address] [place] [address] Performed By: #### R ENIND ####[facility] LABCLIA [id number] [address] LABCLIA [id number] [place] [address]#### 1763-2 ####[facility] LABCLIA [id number] [place] [address] [place] METANEPHRINES, FREE PLASMAon 08-30-2023 METANEPHRINE, PLASMA 28 pg/mL Normal 12- [facility] Comment on above: Order Comment: Speci men Type: BLOOD SPECIMENOrdering Facility: [facility] Address: [address] [place] [address] Result Comment: Refe rence Ranges:Hypertensive adult > or = 18 yrs old: 12-72 pg/mLNormotensive adult > or = 18 yrs old: 12-67 pg/mLNormotensive children < 18 yrs old: 10-95 pg/mL Performed By: #### P METAN ####[facility] LABIA [id number] [address] [place] NORMETANEPHRINE, PLASMA 84 pg/mL Normal 18-101 C [facility] Comment on above: Order Comment: Speci men Type: BLOOD SPECIMENOrdering Facility: [facility] Address: [address] [place] [address] Result Comment: Refe rence Ranges:Hypertensive adult > or = 18 yrs old: 24-145 pg/mLNormotensive adult > or = 18 yrs old: 18-101 pg/mLNormotensive children < 18 yrs old: 22-83 pg/mLMethyldopa may cause false elevation of normetanephrine levels in this assay. If patient is on methyldopa, interpret results with caution. Performed By: #### P METAN ####[facility] LABIA [id number] [place] [address] [place] Covid-19 PCR (CVDTB)on SARS-CoV-2 (COVID-19) RNA DARWIN+probe Ql (Unsp spec) Not detected Normal NOT DETECTED [facility] Comment on above: Result Comment: This test is not yet approved or cleared by the [place] FDA. When there are no FDA-approved or cleared tests available, and other criteria are met, FDA can make tests available under an emergency access mechanism called an Emergency Use Authorization (EUA). The EUA for this test is supported by the [employer] E[employer] Specialist of Health and Human Service's (HHS's) [...] SARS-CoV-2. Performed By: #### C VDTB #### [facility] [address] [address] [address] Maylin Ch Follow-Upon 11-05-2022 Follow-Up [id number] Janine Joy 1990 F Date Provider Department Center 11/05/2022 RAVINDRA BUCKLEY DCC ONC DCC Family History Problem Relation Age of Onset Diabetes Mother Thyroid cancer Mother Diabetes Father Hypertension Father Family Status - Relation Status Age at Mother Father Level of Service:26060 AL OFFICE/OUTPATIENT ESTABLISHED MOD MDM 30-39 MIN Normal [facility] DRUG SCREEN RAPID (URINE)on 10-23-2022 AMP Negative Normal NEGATIVE [facility] Comment on above: Performed By: #### D RUGRPD #### [facility] [address] [place] [address] Dr. Maylin Ch BAR Negative Normal NEGATIVE [facility] Comment on above: Performed By: #### D RUGRPD #### [facility] [address] [place] [address] Dr. Maylin Ch BUP Negative Normal NEGATIVE [facility] Comment on above: Performed By: #### D RUGRPD #### [facility] [address] [address] [address] Maylin Ch BZO Negative Normal NEGATIVE [facility] Comment on above: Performed By: #### D RUGRPD #### [facility] [address] [address] [address] Maylin Ch DRE Negative Normal NEGATIVE [facility] Comment on above: Performed By: #### D RUGRPD #### [facility] [address] [place] [address] Dr. Mayiln Ch CUT-OFFS SEE BELOW Normal [facility] Comment on above: Result Comment: AMP [...] ng/mL Performed By: #### D RUGRPD #### [facility] [address] [place] [address] Dr. Maylin Ch DRUG CUT HEADER DRUG CLASS TEST SYST EM CUT-OFF CONCENTRATIONS ARE FOLLOWS: Normal [facility] Comment on above: Performed By: #### D RUGRPD #### [facility] [address] [place] [address] Dr. Maylin Ch mAMP Negative Normal NEGATIVE [facility] Comment on above: Performed By: #### D RUGRPD #### [facility] [address] [place] [address] Dr. Maylin Ch MTD Negative Normal NEGATIVE [facility] Comment on above: Performed By: #### D RUGRPD #### [facility] [address] [place] [address] Dr. Maylin Ch OPI Negative Normal NEGATIVE [facility] Comment on above: Performed By: #### D RUGRPD #### [facility] [address] [place] [address] Dr. Maylin Ch OXY Negative Normal NEGATIVE [facility] Comment on above: Performed By: #### D RUGRPD #### [facility] [address] [place] [address] Dr. Maylin Ch PCP Negative Normal NEGATIVE [facility] Comment on above: Performed By: #### D RUGRPD #### [facility] [address] [place] [address] Dr. Maylin Ch PPX Negative Normal NEGATIVE [facility] Comment on above: Performed By: #### D RUGRPD #### [facility] [address] [place], [place] [address] Dr. Maylin Ch TCA Negative Normal NEGATIVE [facility] Comment on above: Performed By: #### D RUGRPD #### [facility] [address] [place], [place] [address] Dr. Maylin Ch THC Negative Normal NEGATIVE [facility] Comment on above: Performed By: #### D RUGRPD #### [facility] [id number] Maylin Ch MR BRAIN W AND [...] of ventriculomegaly. Electronically signed: Frank Lara. Normal [facility] Serum or plasma potassium me asurement (moles/volume)Ordered By: Manasa Rhodes on 09-13-2022 Potassium [Moles/Vol] 3.3 mmol/L 3.5-5.1 [facility] Office Visiton 09-10-2022 Follow-up visit [id number] Janine Joy 1990 F Date Provider Department Center 09/10/2022 RAVINDRA BUCKLEY ONC DCC Family History Problem Relation Age of Onset Diabetes Mother Thyroid cancer Mother Diabetes Father Hypertension Father Family Status - Relation Status Age at Mother Father Level of Service:56934 AL OFFICE/OUTPATIENT ESTABLISHED MOD MDM 30-39 MIN Reason for Visit and Comments: Consult [484] - Past patient, coming back today to have imaging reordered. Normal [facility] Orders Onlyon 09-10-2022 Orders Only [id number] Janine Joy 1990 F Date Provider Department Center 09/10/2022 MONICA DOMINGUEZ ONC DCC Family History Problem Relation Age of Onset Diabetes Mother Thyroid cancer Mother Diabetes Father Hypertension Father Family Status - Relation Status Age at Mother Father Normal [facility] MAGNESIUMon 09-07-2022 Magnesium [Mass/Vol] 1.9 mg/dL Normal 1.8-2.4 [facility] Comment on above: Performed By: #### M Court PHOS, BMP #### [facility] [address] [address] [address] Maylin Ch PHOSPHORUSon 09-07-2022 Phosphate [Mass/Vol] 3.7 mg/dL Normal 2.6-4.7 [facility] Comment on above: Performed By: #### M Court PHOS, BMP #### [facility] [address] [address] [address] Maylin Ch PROF CHEM 8 (BAS METB)on Anion gap [Moles/Vol] 14.3 mmol/L Normal [facility] Comment on above: Performed By: #### M Court PHOS, BMP #### [facility] [address] [address] [address] Maylin Ch Calcium [Mass/Vol] 9.3 mg/dL Normal 8.5-10.1 [facility] Comment on above: Performed By: #### YAMILET Lopez, BMP #### [facility] [address] [place] [address] Dr. Maylin Ch Chloride [Moles/Vol] 105 mmol/L Normal 98-107 [facility] Comment on above: Performed By: #### YAMILET Lopez, BMP #### [facility] [address] [place] [address] Dr. Maylin Ch CO2 [Moles/Vol] 31.0 mmol/L Normal 21.0-32.0 [facility] Comment on above: Performed By: #### YAMILET Lopez, BMP #### [facility] [address] [place] [address] Dr. Maylin Ch Creatinine [Mass/Vol] 0.90 mg/dL Normal 0.55-1.02 [facility] Comment on above: Performed By: #### YAMILET Lopez, BMP #### [facility] [address] [place] [address] Dr. Maylin Ch EGFR-AF PALESTINIAN >60 Normal >=60 [facility] Comment on above: Performed By: #### YAMILET Lopez, BMP #### [facility] [address] [place] [address] Dr. Maylin Ch EGFR-NON AF PALESTINIAN >60 Normal >=60 [facility] Comment on above: Performed By: #### YAMILET Lopez, BMP #### [facility] [address] [place] [address] Dr. Maylin Ch Glucose [Mass/Vol] 158 mg/dL Critically high 74-[address] [facility] Comment on above: Performed By: #### YAMILET Lopez, BMP #### [facility] [address] [place] [address] Dr. Maylin Ch Potassium [Moles/Vol] 2.3 mmol/L Critically low 3.5-5.1 [facility] Comment on above: Performed By: #### YAMILET Lpoez, BMP #### [facility] [address] [place] [address] Dr. Maylin Ch Sodium [Moles/Vol] 147 mmol/L Critically high 136-[address] [facility] Comment on above: Performed By: #### M YAMILET Yun BMP #### [facility] [address] [address] [address] Maylin Ch Urea nitrogen [Mass/Vol] 7.0 mg/dL Normal 7.0-18.0 [facility] Comment on above: Performed By: #### M YAMILET Yun BMP #### [facility] [address] [address] [address] Maylin Ch Urea nitrogen/Creatinine [Mass ratio] 7.8 mg/mg Normal [facility] Comment on above: Performed By: #### YAMILET Lopez BMP #### [facility] [address] [address] [address] Maylin Ch Serum or plasma potassium me asurement (moles/volume)Ordered By: NON STAFF on 09-07-2022 Potassium [Moles/Vol] 2.4 mmol/L 3.5-5.1 [facility] Comment on above: Results calledat [...] seen for a consultation for. DEDE Benson, [facility] Bariatrics- Bariatric sx History of [...] Vital Signs Recorded: 06Jun2022 04:17PMRecorded: 06Jun2022 03:45PM [id number], LUE, Sitting [id number], LUE, Sitting Heart Rate71, Apical Height5 ft 7 in Fzdpzo353 lb BMI Mysqbhgydg91.77 kg/m2 BSA Calculated2.42 Tobacco Useb) No PHQ-2 [...] to auscul (more content not included)... Normal [facility] Tobacco Screening.on 022 Adult depression screening assessment No [facility] [employer] 250 DO Work Phone: Tobacco use status CPHS b) No M [facility] [employer] 250 DO Work Phone: DHEA SERUMon 01-12-2022 Dehydroepiandrosterone (DHEA) 287 ng/dL Normal 31-701 [facility] Comment on above: Result Comment: Age [...] 701 Performed By: #### D STAR. #### [facility] [address] [address] [address] Maylin Ch TESTOSTERONE, FREE,DIRECT, T OTALon 01-06-2022 Free Testosterone(Direct) 1.6 pg/mL Normal 0.0-4.2 [facility] Comment on above: Result Comment: Perf ormed at: BN Performed By: #### T ESTFRD #### [facility] [address] [place] [address] Dr. Maylin Ch Testosterone [Mass/Vol] 17 ng/dL Normal 13-71 [facility] Comment on above: Result Comment: Perf ormed at: CB Performed By: #### T ESTFRD #### [facility] [address] [place] [address] Dr. Maylin Ch INSULINon 01-05-2022 Insulin 13.2 uIU/mL Normal 2.6-24.9 [facility] Comment on above: Performed By: #### I NSULIN #### [facility] [address] [place] [address] Dr. Maylin Ch GLYCOHEMOGLOBIN A1Con 2021 ADA RECOMMENDATION SEE BELOW Normal [facility] Comment on above: Result Comment: ADA RECOMMENDED LIMIT 4.0 - 6.0 ADA THERAPEUTIC TARGET < 7.0 ACTION SUGGESTED > 7.0 Performed By: #### A 1C #### [facility] [address] [place] [address] Dr. Maylin Ch Glucose [Mass/Vol] 146 mg/dL Normal [facility] Comment on above: Performed By: #### A 1C #### [facility] [address] [place] [address] Dr. Maylin Ch HbA1c (Bld) [Mass fraction] 6.7 % Critically high 4.5-6.2 [facility] Comment on above: Performed By: #### A 1C #### [facility] [address] [address] [address] Maylin Ch TSHon 01-04-2022 TSH 3.214 uIU/mL Normal 0.358-3.74 0 [facility] Comment on above: Performed By: #### T SH #### [facility] [address] [address] [address] Maylin Ch TSH RANGE SEE BELOW Normal [facility] Comment on above: Result Comment: <0.3 4 UIU/ml HYPERTHYROID 0.34-5.60 UIU/ml EUTHYROID >5.60 UIU/ml HYPOTHYROID Performed By: #### T SH #### [facility] [address] [place] [address] Dr. Maylin Ch Potassiumon 10-05-2021 Potassium [Moles/Vol] 3.3 mmol/L Low 3.5-5.5 [facility] [employer] Comment on above: Performed By: #### K #### [facility] [address] [place], [place] [id number] Basic Metabolic Panelon 08-06 Anion gap [Moles/Vol] 21 mmol/L High 12-20 [facility] [employer] Comment on above: Result Comment: Effe ctive 08/10/2019 reference range changed. Performed By: #### B MP #### [facility] [address], [place] [id number] Calcium [Mass/Vol] 9.3 mg/dL Normal 8.6-10.2 [facility] Specialist Comment on above: Performed By: #### B MP #### [facility] [address] [facility] [place] [id number] Chloride [Moles/Vol] 106 mmol/L Normal 98-107 [facility] Specialist Comment on above: Performed By: #### B MP #### [facility] [address] [facility] [place] [id number] CO2 [Moles/Vol] 20 mmol/L Normal 20-31 [facility] Specialist Comment on above: Performed By: #### B MP #### [facility] [address] [facility] [place] [id number] Creatinine [Mass/Vol] 0.7 mg/dL Normal 0.6-1.4 [facility] Comment on above: Performed By: #### B MP #### [facility] [address], [place] [id number] eGFRAA 115 mL/min/1.73m2 Normal >60 [facility] Specialist Comment on above: Performed By: #### B MP #### [facility] [address], [place] [id number] eGFRNAA 95 mL/min/1.73m2 Normal >60 [facility] Specialist Comment on above: Performed By: #### B MP #### [facility] [address] [place], [place] [id number] Glucose [Mass/Vol] 184 mg/dL High 65-99 [facility] Comment on above: Result Comment: For FASTING Glucose --- ADA reference ranges: Normal 65-99 mg/dl Prediabetes 100-125 Diabetes >/= 126 Performed By: #### B MP #### [facility] [address] [place], [place] [id number] Potassium [Moles/Vol] 2.8 mmol/L Critically low 3.5-5.5 [facility] Specialist Comment on above: Result Comment: Crit ical result called to Dr Rhodes/Rylee at 09/01/2021 11:58 AM by Cyndie Montanez (Bertha) Performed By: #### B MP #### [facility] [address], [place] [id number] Sodium [Moles/Vol] 144 mmol/L Normal 135-146 [facility] Comment on above: Performed By: #### B MP #### [facility] [address] [place], [place] [id number] Urea nitrogen [Mass/Vol] 10 mg/dL Normal 7-25 [facility] Comment on above: Performed By: #### B MP #### [facility] [address] [place], [place] [id number] MRI BRAIN W WO CONTRASTon MRI BRAIN W WO CONTRAST [facility] Department of Radiology [address] [place] [address] Patient Name: HEIDI JOY : 1990 Sex: F Age: Race: White Pt. Location: 29 Patient Status: O Ordered Date: 02/04/2020 2:05:00 PM Completed Date: 03/17/2020 10:13 AM Requesting Provider: GANGA RODRIGUES Attending Provider: GANGA RODRIGUES Report Copy To: IMMANUEL KUHN Signs & Symptoms: C71.9 Malignant neoplasm of brain, unspecified I10 History: Nita AMES AUTH [id number] VALID 03/04-04/03/2020 [id number] KW Comments: , 1p-19q co-deleted oligodendroglioma of [...] reports Electronically signed: Shawn Martins. Transcribed by: [email or web address], User Resident: JONATHAN ARCE Electronically Signed by: SHAWN MARTINS @ 03/17/2020 12:45 PM I personally read this/these film(s) with this resident Normal [facility] Comment on above: Order Comment: , [...] MRI BRAIN W WO CONTRAST [facility] Department of Radiology [address] [place] [id number] Patient Name: HEIDI JOY : 1990 Sex: F Age: Race: White Pt. Location: 29 Patient Status: O Ordered Date: 03/20/2019 11:25:00 AM Completed Date: 09/11/2019 10:54 AM Requesting Provider: ALISA CH Attending Provider: ALISA CH Report Copy To: IMMANUEL KUHN Signs & Symptoms: C71.9 Malignant neoplasm of brain, unspecified I10 History: Nita ames auth # [id number] 08/28/2019-09/27/2019 cpt code 87994 *mla Comments: , 1p-19q co-deleted oligodendroglioma of [...] reports Electronically signed: Jim Curiel. Transcribed by: [email or web address], User Resident: DANDY HUFFMAN Electronically Signed by: JIM CURIEL @ 09/11/2019 04:35 PM I personally read this/these film(s) with this resident Normal [facility] Comment on above: Order Comment: , [...] Summaryon 01-29-2018 Coding Summary CODING DATE: 018 [facility] STATUS: Home PAYOR: Medicaid HMO ADMIT [...] Swanson' Date Saved: 01/29/2018 03:42 pm Normal [facility] ED Clinical Summaryon 2017 ED Clinical Summary [facility] ? Urgent [id number] [place] [address] clinical SummaryPERSON INFORMATIONName: ABEBAAMY HEIDIFRANCINE BURDEN Age: 27 Years Sex: FEMALEDOB: [birth year] MRN: Acct#:Visit Reason: UC - Rash; UC - Rash; RASH/ BILAT LEGS Arrival: 01/23/18 10:43:00 Discharge: 01/23/18 11:18:00LOS: 000 00:35 Check In: 01/23/18 10:43:00 Checkout: 01/23/18 11:18:00Address:[address] [address]EUS: Immanuel Kuhn INFORMATIONProvider Role Assigned UnassignedSpasic Carmelo ASHRAF ED 01/23/18 10:48:23Cristal Dunaway ED Nurse 01/23/18 10:53:41VITALS INFORMATIONVital Sign Triage LatestTemperature TympanicTemperature Temporal ArteryPulse Rate 79 bpm 79 bpmO2 Sat 97 % 97 %Respiratory Rate 16 br/min 16 br/minBlood Pressure 162 mmHg/98 mmHg 162 mmHg/98 mmHgMEDICAL INFORMATIONMedications Given:Allergy Information:No Known Medication AllergiesPHYSICIAN DOCUMENTATIONDISCHARGE INFORMATION:Discharge Disposition: HomeDischarge Location:PATIENT EDUCATION INFORMATIONInstructions: Poison [place] Dermatitis, Ryzh-py-OrrtWvejuy-Up:With : Address: When:Immanuel Kuhn [facility] [address], [address] [place], [place] [id number] [facility] (1)Comments:Begin on the prednisone 2 tablets daily for 5 days take with food to avoid gastric refluxBegin on the Claritin 1 tab daily for the next 2 weeks Follow-up with primary care provider in 3-5 days sooner if worse.DIAGNOSIS:urushiol induced contact dermatitisPatient Understands: Yes - Patient/family/caregiver verbalizes understanding of instructions givenComment: [facility] ED Note - Physicianon 2017 ED Note - Physician Patient: HONORIO JOY : 27 years Sex: FEMALE : [birth year]Associated Diagnoses: urushiol induced contact dermatitisAuthor: Wai LakeandaValencia InformationTime seen: Date & time 01/23/18 11:01:00.History source: Patient.Arrival mode: Private vehicle.History limitation: None.Additional information: Chief Complaint from Nursing Triage Note : Chief Majnmfuwx63/21/18 10:45 EDT Chief Complaint 2-3 days possible [...] been selected or recorded..Social history:Social & Psychosocial NxeoptTkchlkk41/21/2018 Number used per day: 10.Problem list:Active Problems (1)Smoker.Physical Examination Vital QqwoxUblartixkpns49/21/18 10:45 EDT Height 170.18 cm Weight 122.47 [...] was given the following educational materials: Poison [place] Dermatitis, Zzcz-fw-Hteo.Follow up with: Immanuel Kuhn Begin on the [...] [place][Verified on: 01/23/2018 11:28 EDT] [place] [facility] ED Patient Summaryon 018 ED Patient Summary [facility] ? Urgent [id number] [place] [address] pATIENT DISCHARGE INSTRUCTIONSPatient InformationName: HEIDI JOY Age: 27 YearsDate of : [birth year]MRN: [id number] For Visit: UC - Rash; UC - Rash; RASH/ BILAT LEGSArrival Time: 01/23/18 10:43:00[facility]: [facility] Physician: Immanuel Kuhn Physician: Tonja LakerComment:Patient EducationWith: Address: When:Immanuel Kuhn [address] [place] [address]., [address] [place] [address] Business (1)Comments:Begin on the prednisone 2 tablets daily for 5 days take with food to avoid gastric refluxBegin on the Claritin 1 tab daily for the next 2 weeks Follow-up with primary care provider in 3-5 days sooner if worse.Poison [place]on DermatitisPoison oak dermatitis is redness and soreness [...] instructions at home:General instructions? Take or apply xrfw-yki-qbrwukg and prescription medicines only as told by [...] Released: 08/24/2011 Document Revised: 12/27/2016 Document Reviewed: 12/28/2015[employer] Patient Education ? 2018 [employer].Medication Information:The exam and treatment you received today in the [facility] Emergency Department were for an urgent problem and are not intended as complete care. It is important for you to follow up with a doctor, nurse practitioner, or physician?s production assistant for ongoing care. If your symptoms [...] number so we can reach you if necessary.[facility] Emergency Department has provided you with a complete list of medications post discharge. Please inform your general doc/provider of your visit and for further instruction [...] InformationVisit Diagnosis:Diagnoses This Visit UC - Rash ([id number]) UC - Rash ([id number]) urushiol induced contact dermatitisIf you received any [...] Weight: 122.47 kg Body Mass Index: 42.29 kg/t4Kfshdgjv List:Problem Onset CommentsSmokerMajor Tests and Procedures:The following [...] Disease Control and Prevention April 2014 Normal [facility] Urgent Care Recordon 018 Urgent Care Record [facility] ? Urgent [id number] [place] [address] pATIENT DISCHARGE INSTRUCTIONSPatient InformationName: ABEBAAMY HEIDI JENISE Age: 27 YearsDate of : [birth year]MRN: [id number] For Visit: UC - Rash; UC - Rash; RASH/ BILAT LEGSArrival Time: 01/23/18 10:43:00Phone: Primary Care Physician: Immanuel Kuhn Physician: Tonja LakerComment:Visit Diagnosis:Diagnoses This Visit UC - Rash ([id number]) UC - Rash ([id number]) urushiol induced contact dermatitisIf you received any [...] sign any legal documentsWith: Address: When:Immanuel Kuhn [address] [place], [place] [address] [place] [address] Business (1)Comments:Begin on the prednisone 2 tablets daily for 5 days take with food to avoid gastric refluxBegin on the Claritin 1 tab daily for the next 2 weeks Follow-up with primary care provider in 3-5 days sooner if worse.Medication Information:The exam and treatment you received today in the [facility] were for an urgent problem and are not intended as complete care. It is important for you to follow up with a doctor, nurse practitioner, or physician?s production assistant for ongoing care. If your symptoms [...] number so we can reach you if necessary.[facility] has provided you with a complete list of medications post discharge. Please inform your general doc/provider of your visit and for further instruction [...] Weight: 122.47 kg Body Mass Index: 42.29 kg/r2Dysxsqhx List:Problem Onset CommentsSmoker Patient EducationPoison Kenton DermatitisPoison oak dermatitis is redness and soreness [...] instructions at home:General instructions? Take or apply hptn-[id number] and prescription medicines only as told by [...] Reviewed: 12/28/2015[employer] Patient Education ? 2018 [employer]. Viruses or BacteriaWhat?s got you sick?Antibiotics only [...] Disease Control and Prevention April 2014 Normal [facility] Vital Signs Date Time Vital Sign Value Performing Clinician Jill rudd 04-20-2025 14:56-0400 Body height 167.6 cm Татьяна Carter PA Work Phone: [facility] 04-20-2025 14:56-0400 Body mass index (BMI) [Ratio] 28.89 kg/m2 Татьяна Carter PA Work Phone: [facility] 04-20-2025 14:56-0400 Body temperature 97.59 [degF] Татьяна Carter PA Work Phone: [facility] 04-20-2025 14:56-0400 Body weight 81.19 kg Татьяна Carter PA Work Phone: [facility] 04-20-2025 14:56-0400 Diastolic blood pressure 82 mm[Hg] Татьяна Carter PA Work Phone: [facility] 04-20-2025 14:56-0400 Heart rate 65 /min Татьяна Carter PA Work Phone: [facility] 04-20-2025 14:56-0400 SaO2% (BldA) [Mass fraction] 100 % Татьяна Carter PA Work Phone: [facility] 04-20-2025 14:56-0400 Systolic blood pressure 130 mm[Hg] Татьяна Carter PA Work Phone: [facility] 02-08-2025 10:55-0400 Body height 167.6 cm Eliot Russellville DO Work Phone: [facility] 02-08-2025 10:55-0400 Body mass index (BMI) [Ratio] 28.73 kg/m2 Eliot Russellville DO Work Phone: [facility] 02-08-2025 10:55-0400 Body temperature 97.39 [degF] Eliot Russellville DO Work Phone: [facility] 02-08-2025 10:55-0400 Body weight 80.74 kg Eliot Russellville DO Work Phone: [facility] 02-08-2025 10:55-0400 Diastolic blood pressure 70 mm[Hg] Eliot Russellville DO Work Phone: [facility] 02-08-2025 10:55-0400 Heart rate 74 /min Eliot [place] DO Work Phone: [facility] 02-08-2025 10:55-0400 SaO2% (BldA) [Mass fraction] 100 % Eliot Russellville DO Work Phone: [facility] 02-08-2025 10:55-0400 Systolic blood pressure 124 mm[Hg] Eliot Russellville DO Work Phone: [facility] 01-27-2025 08:54-0400 Body height 167.6 cm Eliot Russellville DO Work Phone: [facility] 01-27-2025 08:54-0400 Body mass index (BMI) [Ratio] 29.25 kg/m2 Eliot Russellville DO Work Phone: [facility] 01-27-2025 08:54-0400 Body temperature 96.1 [degF] Eliot Russellville DO Work Phone: [facility] 01-27-2025 08:54-0400 Body weight 82.19 kg Eliot Russellville DO Work Phone: [facility] 01-27-2025 08:54-0400 Diastolic blood pressure 70 mm[Hg] Eliot Russellville DO Work Phone: [facility] 01-27-2025 08:54-0400 Heart rate 70 /min Eliot Russellville DO Work Phone: [facility] 01-27-2025 08:54-0400 SaO2% (BldA) [Mass fraction] 99 % Eliot Russellville DO Work Phone: [facility] 01-27-2025 08:54-0400 Systolic blood pressure 122 mm[Hg] Eliot Russellville DO Work Phone: [facility] 12-21-2024 14:02-0400 Body height 167.6 cm Immanuel Bam DO Work Phone: [facility] 12-21-2024 14:02-0400 Body mass index (BMI) [Ratio] 30.02 kg/m2 Immanuel Kuhn DO Work Phone: [facility] 12-21-2024 14:02-0400 Body temperature 98.01 [degF] Immanuel Kuhn DO Work Phone: [facility] 12-21-2024 14:02-0400 Body weight 84.37 kg Immanuel Kuhn DO Work Phone: [facility] 12-21-2024 14:02-0400 Diastolic blood pressure 80 mm[Hg] Immanuel Kuhn DO Work Phone: [facility] 12-21-2024 14:02-0400 Heart rate 76 /min Immanuel Kuhn DO Work Phone: [facility] 12-21-2024 14:02-0400 Systolic blood pressure 122 mm[Hg] Immanuel Kuhn DO Work Phone: [facility] 12-09-2024 17:16-0400 Body height 167.6 cm Eliot Russellville DO Work Phone: [facility] 12-09-2024 17:16-0400 Body mass index (BMI) [Ratio] 29.86 kg/m2 Eliot Russellville DO Work Phone: [facility] 12-09-2024 17:16-0400 Body temperature 98.4 [degF] Eliot Russellville DO Work Phone: [facility] 12-09-2024 17:16-0400 Body weight 83.92 kg Eliot Russellville DO Work Phone: [facility] 12-09-2024 17:16-0400 Diastolic blood pressure 80 mm[Hg] Eliot Russellville DO Work Phone: [facility] 12-09-2024 17:16-0400 Heart rate 82 /min Eliot Russellville DO Work Phone: [facility] 12-09-2024 17:16-0400 SaO2% (BldA) [Mass fraction] 100 % Eliot Russellville DO Work Phone: [facility] 12-09-2024 17:16-0400 Systolic blood pressure 122 mm[Hg] Eliot Russellville DO Work Phone: [facility] 09-14-2024 09:11-0500 Body height 167.6 cm Immanuel Kuhn DO Work Phone: [facility] 09-14-2024 09:11-0500 Body mass index (BMI) [Ratio] 29.7 kg/m2 Immanuel Kuhn DO Work Phone: [facility] 09-14-2024 09:11-0500 Body temperature 98.4 [degF] Immanuel Kuhn DO Work Phone: [facility] 09-14-2024 09:11-0500 Body weight 83.46 kg Immanuel Kuhn DO Work Phone: [facility] 09-14-2024 09:11-0500 Diastolic blood pressure 80 mm[Hg] Immanuel Kuhn DO Work Phone: [facility] 09-14-2024 09:11-0500 Heart rate 78 /min Immanuel Kuhn DO Work Phone: [facility] 09-14-2024 09:11-0500 Systolic blood pressure 122 mm[Hg] Immanuel Kuhn DO Work Phone: [facility] 09-11-2024 09:41-0500 Blood Pressure Location Calderon Sarmini [facility] 09-11-2024 09:41-0500 Diastolic blood pressure 81 mm[Hg] Calderon Sarmini [facility] 09-11-2024 09:41-0500 Heart rate 62 /min Calderon Sarmini [facility] 09-11-2024 09:41-0500 Respiratory rate 14 /min Calderon Sarmini [facility] 09-11-2024 09:41-0500 Systolic blood pressure 127 mm[Hg] Calderon Sarmini [facility] 08-11-2024 09:48-0500 Body height 167.6 cm Immanuel Kuhn DO Work Phone: [facility] 08-11-2024 09:48-0500 Body mass index (BMI) [Ratio] 30.34 kg/m2 Immanuel Kuhn DO Work Phone: [facility] 08-11-2024 09:48-0500 Body temperature 97 [degF] Immanuel Kuhn DO Work Phone: [facility] 08-11-2024 09:48-0500 Body weight 85.28 kg Immanuel Kuhn DO Work Phone: [facility] 08-11-2024 09:48-0500 Diastolic blood pressure 80 mm[Hg] Immanuel Kuhn DO Work Phone: [facility] 08-11-2024 09:48-0500 Heart rate 74 /min Immanuel Kuhn DO Work Phone: [facility] 08-11-2024 09:48-0500 Systolic blood pressure 122 mm[Hg] Immanuel Kuhn DO Work Phone: [facility] 07-13-2024 09:36-0500 Body height 167.6 cm Eliot Russellville DO Work Phone: [facility] 07-13-2024 09:36-0500 Body mass index (BMI) [Ratio] 29.86 kg/m2 Eliot Russellville DO Work Phone: [facility] 07-13-2024 09:36-0500 Body temperature 97.3 [degF] Eliot Russellville DO Work Phone: [facility] 07-13-2024 09:36-0500 Body weight 83.92 kg Eliot Russellville DO Work Phone: [facility] 07-13-2024 09:36-0500 Diastolic blood pressure 80 mm[Hg] Eliot Russellville DO Work Phone: [facility] 07-13-2024 09:36-0500 Heart rate 62 /min Eliot Russellville DO Work Phone: [facility] 07-13-2024 09:36-0500 SaO2% (BldA) [Mass fraction] 100 % Eliot Russellville DO Work Phone: [facility] 07-13-2024 09:36-0500 Systolic blood pressure 114 mm[Hg] Eliot Russellville DO Work Phone: [facility] 06-17-2024 08:53-0500 Body height 167.6 cm Eliot Russellville DO Work Phone: [facility] 06-17-2024 08:53-0500 Body mass index (BMI) [Ratio] 28.89 kg/m2 Eliot Russellville DO Work Phone: [facility] 06-17-2024 08:53-0500 Body temperature 97.7 [degF] Eliot Russellville DO Work Phone: [facility] 06-17-2024 08:53-0500 Body weight 81.19 kg Eliot Russellville DO Work Phone: [facility] 06-17-2024 08:53-0500 Diastolic blood pressure 72 mm[Hg] Eliot Russellville DO Work Phone: [facility] 06-17-2024 08:53-0500 Heart rate 81 /min Eliot Russellville DO Work Phone: [facility] 06-17-2024 08:53-0500 SaO2% (BldA) [Mass fraction] 100 % Eliot Russellville DO Work Phone: [facility] 06-17-2024 08:53-0500 Systolic blood pressure 120 mm[Hg] Eliot Russellville DO Work Phone: [facility] 05-07-2024 08:34-0400 Body height 167.6 cm Eliot Russellville DO Work Phone: [facility] 05-07-2024 08:34-0400 Body mass index (BMI) [Ratio] 28.08 kg/m2 Eliot Russellville DO Work Phone: [facility] 05-07-2024 08:34-0400 Body temperature 97.9 [degF] Eliot Russellville DO Work Phone: [facility] 05-07-2024 08:34-0400 Body weight 78.93 kg Eliot Russellville DO Work Phone: [facility] 05-07-2024 08:34-0400 Diastolic blood pressure 68 mm[Hg] Eliot [place] DO Work Phone: [facility] 05-07-2024 08:34-0400 Heart rate 68 /min Eliot Russellville DO Work Phone: [facility] 05-07-2024 08:34-0400 SaO2% (BldA) [Mass fraction] 100 % Eliot Russellville DO Work Phone: [facility] 05-07-2024 08:34-0400 Systolic blood pressure 120 mm[Hg] Eliot Russellville DO Work Phone: [facility] 05-04-2024 08:50-0400 Blood Pressure Location Calderon Sarmini [facility] 05-04-2024 08:50-0400 Diastolic blood pressure 80 mm[Hg] Calderon Sarmini [facility] 05-04-2024 08:50-0400 Heart rate 73 /min Calderon Sarmini [facility] 05-04-2024 08:50-0400 Systolic blood pressure 117 mm[Hg] Calderon Sarmini [facility] 03-19-2024 13:53-0400 Blood Pressure Location Calderon Sarmini [facility] 03-19-2024 13:53-0400 Diastolic blood pressure 88 mm[Hg] Calderon Sarmini [facility] 03-19-2024 13:53-0400 Heart rate 86 /min Calderon Sarmini [facility] 03-19-2024 13:53-0400 Respiratory rate 16 /min Calderon Sarmini [facility] 03-19-2024 13:53-0400 Systolic blood pressure 132 mm[Hg] Calderon Sarmini [facility] 02-21-2024 11:39-0400 Diastolic blood pressure 79 mm[Hg] DO Immanuel Kuhn Work Phone: [facility] 02-21-2024 11:39-0400 Heart rate 64 /min DO Immanuel Kuhn Work Phone: [facility] 02-21-2024 11:39-0400 Respiratory rate 16 /min DO Immanuel Kuhn Work Phone: [facility] 02-21-2024 11:39-0400 SaO2% (BldA) [Mass fraction] 100 % DO Immanuel uKhn Work Phone: [facility] 02-21-2024 11:39-0400 Systolic blood pressure 130 mm[Hg] DO Immanuel Kuhn Work Phone: [facility] 02-21-2024 08:48-0400 Body height 170.18 cm DO Immanuel Kuhn Work Phone: [facility] 02-21-2024 08:48-0400 Body temperature 98.3 [degF] DO Immanuel Kuhn Work Phone: [facility] 02-21-2024 08:48-0400 Body weight 81 kg DO Immanuel Kuhn Work Phone: [facility] 02-13-2024 15:15-0400 Body height 167.6 cm Immanuel Mcgrather DO Work Phone: [facility] 02-13-2024 15:15-0400 Body mass index (BMI) [Ratio] 28.08 kg/m2 Immanuel Mcgrather DO Work Phone: [facility] 02-13-2024 15:15-0400 Body temperature 97.9 [degF] Immanuel Mcgrather DO Work Phone: [facility] 02-13-2024 15:15-0400 Body weight 78.93 kg Immanuel Kuhn DO Work Phone: [facility] 02-13-2024 15:15-0400 Diastolic blood pressure 88 mm[Hg] Immanuel Kuhn DO Work Phone: [facility] 02-13-2024 15:15-0400 Heart rate 76 /min Immanuel Kuhn DO Work Phone: [facility] 02-13-2024 15:15-0400 Systolic blood pressure 134 mm[Hg] Immanuel Kuhn DO Work Phone: [facility] 02-12-2024 09:20-0400 Body height 170.2 cm Vikki Bailey MD Work Phone: [facility] 02-12-2024 09:20-0400 Body mass index (BMI) [Ratio] 26.52 kg/m2 Vikki Bailey MD Work Phone: [facility] 02-12-2024 09:20-0400 Body weight 76.8 kg Vikki Bailey MD Work Phone: [facility] 02-12-2024 09:20-0400 Diastolic blood pressure 81 mm[Hg] Vikki Bailey MD Work Phone: [facility] 02-12-2024 09:20-0400 Heart rate 76 /min Vikki Bailey MD Work Phone: [facility] 02-12-2024 09:20-0400 SaO2% (BldA) [Mass fraction] 98 % Vikki Bailey MD Work Phone: [facility] 02-12-2024 09:20-0400 Systolic blood pressure 120 mm[Hg] Vikki Bailey MD Work Phone: [facility] 02-04-2024 11:26-0400 Body mass index (BMI) [Ratio] 27.74 kg/m2 Manuel Alfaro MD Work Phone: [facility] 02-04-2024 11:26-0400 Body weight 80.33 kg Manuel Alfaro MD Work Phone: [facility] 02-04-2024 11:26-0400 SaO2% (BldA) [Mass fraction] 100 % Manuel Alfaro MD Work Phone: [facility] 01-28-2024 16:10-0400 SaO2% (BldA) [Mass fraction] 99 % IMMANUEL KUHN [facility] Comment on above: Order Comment: Specimen Type: ARTERIAL B LOOD SPECIMENOrdering Facility: [facility] Address: [address] [place] [address] Performed By: #### A LLMG ####[facility] LABCLIA [id number] [facility] [id number] [address] [place] [facility] 01-20-2024 09:02-0400 Body height 170.2 cm [facility] 01-20-2024 09:02-0400 Body mass index (BMI) [Ratio] 27.41 kg/m2 [facility] 01-20-2024 09:02-0400 Body weight 79.38 kg [facility] 12-11-2023 10:13-0400 Body mass index (BMI) [Ratio] 28.35 kg/m2 Manuel Alfaro MD Work Phone: [facility] 12-11-2023 10:13-0400 Body weight 82.1 kg Manuel Alfaro MD Work Phone: [facility] 12-11-2023 10:13-0400 SaO2% (BldA) [Mass fraction] 98 % Manuel Alfaro MD Work Phone: [facility] 12-06-2023 09:08-0400 Body height 170.2 cm Pac 2 Work Phone: [facility] 12-06-2023 09:08-0400 Body mass index (BMI) [Ratio] 28.66 kg/m2 [facility] 2 Work Phone: [facility] 12-06-2023 09:08-0400 Body temperature 98.1 [degF] Pac 2 Work Phone: [facility] 12-06-2023 09:08-0400 Body weight 83 kg Pac 2 Work Phone: [facility] 12-06-2023 09:08-0400 Diastolic blood pressure 90 mm[Hg] Pacc 2 Work Phone: [facility] 12-06-2023 09:08-0400 Heart rate 67 /min Pacc 2 Work Phone: [facility] 12-06-2023 09:08-0400 Respiratory rate 16 /min Pacc 2 Work Phone: [facility] 12-06-2023 09:08-0400 SaO2% (BldA) [Mass fraction] 99 % Pacc 2 Work Phone: [facility] 12-06-2023 09:08-0400 Systolic blood pressure 170 mm[Hg] Pacc 2 Work Phone: [facility] 09-13-2023 10:53-0500 Body mass index (BMI) [Ratio] 31.78 kg/m2 Barbara Dixon DRIER OPERATOR HELPER Work Phone: [facility] 09-13-2023 10:53-0500 Body temperature 97.5 [degF] Barbara Dixon DRIER OPERATOR HELPER Work Phone: [facility] 09-13-2023 10:53-0500 Body weight 89.3 kg Barbara Dixon DRIER OPERATOR HELPER Work Phone: [facility] 09-13-2023 10:53-0500 Diastolic blood pressure 100 mm[Hg] Barbara Dixon DRIER OPERATOR HELPER Work Phone: [facility] 09-13-2023 10:53-0500 Heart rate 79 /min Barbara Dixon DRIER OPERATOR HELPER Work Phone: [facility] 09-13-2023 10:53-0500 SaO2% (BldA) [Mass fraction] 98 % Barbara Dixon DRIER OPERATOR HELPER Work Phone: [facility] 09-13-2023 10:53-0500 Systolic blood pressure 160 mm[Hg] Barbara Dixon DRIER OPERATOR HELPER Work Phone: [facility] 09-09-2023 16:00-0500 Body height 170.18 cm Zara Ramo Other [employer] Other 09-09-2023 16:00-0500 Body mass index (BMI) [Ratio] 30.82 kg/m2 Zara Ramo Other [employer] Other 09-09-2023 16:00-0500 Body temperature 96.4 [degF] Zara Ramo Other [employer] Other 09-09-2023 16:00-0500 Body weight 89.27 kg Zara Ramo Other [employer] Other 09-09-2023 16:00-0500 Diastolic blood pressure 92 mm[Hg] Zara Ramo Other [employer] Other 09-09-2023 16:00-0500 Respiratory rate 18 /min Zara Ramo Other [employer] Other 09-09-2023 16:00-0500 SaO2% (BldA) [Mass fraction] 99 % Zara Ramo Other [employer] Other 09-09-2023 16:00-0500 Systolic blood pressure 151 mm[Hg] Zara Ramo Other [employer] Other 08-19-2023 16:00-0500 Body height 170.18 cm Zara Ramo Other [employer] Other 08-19-2023 16:00-0500 Body mass index (BMI) [Ratio] 31.76 kg/m2 Zara Ramo Other [employer] Other 08-19-2023 16:00-0500 Body temperature 97.5 [degF] Zara Ramo Other [employer] Other 08-19-2023 16:00-0500 Body weight 91.99 kg Zara Ramo Other [employer] Other 08-19-2023 16:00-0500 Diastolic blood pressure 100 mm[Hg] Zara Ramo Other [employer] Other 08-19-2023 16:00-0500 Respiratory rate 18 /min Zara Ramo Other [employer] Other 08-19-2023 16:00-0500 SaO2% (BldA) [Mass fraction] 100 % Zara Ramo Other [employer] Other 08-19-2023 16:00-0500 Systolic blood pressure 170 mm[Hg] Zara Ramo Other [employer] Other 06-06-2022 16:17-0400 Diastolic blood pressure 89 mm[Hg] Immanuel Kuhn Work Phone: [facility] DO Work Phone: 06-06-2022 16:17-0400 Systolic blood pressure 138 mm[Hg] Immanuel Kuhn Work Phone: [facility] DO Work Phone: 06-06-2022 15:45-0400 Body height 170.18 cm Immanuel Kuhn Work Phone: [facility] DO Work Phone: 06-06-2022 15:45-0400 Body mass index (BMI) [Ratio] 47.77 kg/m2 Immanuel Kuhn Work Phone: [facility] 250 DO Work Phone: 06-06-2022 15:45-0400 Body surface area Derived from formula 2.42 m2 Immanuel Kuhn Work Phone: [facility] 250 DO Work Phone: 06-06-2022 15:45-0400 Body weight 138.35 kg Immanuel Kuhn Work Phone: [facility] [address] DO Work Phone: 06-06-2022 15:45-0400 Diastolic blood pressure 102 mm[Hg] Immanuel Kuhn Work Phone: [facility] [address] DO Work Phone: 06-06-2022 15:45-0400 Heart rate 71 /min Immanuel Kuhn Work Phone: [facility] 250 DO Work Phone: 06-06-2022 15:45-0400 Systolic blood pressure 160 mm[Hg] Immanuel Kuhn Work Phone: [facility] DO Work Phone: Encounters Encounter Date Encounter Type Care Provider Facility Start: 04-20-2025 End: 04-20-2025 Office outpatient visit 15 minutes Татьяна Carter PA Work Phone: [facility] Shreyas [facility] 230 Comment on above: Nausea (Primary Dx); Iron deficiency anemia, unspecified iron deficiency anemia type; Gastroesophageal reflux disease with esophagitis without hemorrhage; Neuropathy; Anastomotic ulcer; Primary insomnia Start: 04-20-2025 End: 04-20-2025 ambulatory ТАТЬЯНА CARTER Not Available Start: 04-19-2025 End: 04-19-2025 ambulatory MANASA DUNAWAY Not Available Start: 04-19-2025 End: 04-19-2025 Office outpatient visit 15 minutes Manasa Dunaway DPM [facility] Comment on above: Tailor's bunion of b oth feet (Primary Dx); Corns and callosities; Pain in both feet Start: 04-19-2025 End: 04-19-2025 Bamboo flowsheet Manasa Dunaway DPM Work Phone: [facility] Start: 04-19-2025 End: 04-19-2025 Bamboo flowsheet Manasa Dunaway DPM Work Phone: [facility] Start: 04-14-2025 End: 04-14-2025 Social Work Sheila Braun [facility] Work Phone: [facility] Comment on above: Generalized anxiety disorder ; Bipolar affective disorder, currently depressed, mild (HCC) Start: 04-14-2025 End: 04-14-2025 [employer] [facility] Sheila Braun [facility] Work Phone: [facility] Start: 04-14-2025 End: 04-14-2025 [employer]amboo [employer] Sheila Josefa Braun [facility] Work Phone: [facility] Start: 03-30-2025 End: 03-30-2025 Office outpatient visit 15 minutes Manasa Dunaway DPM Work Phone: [facility] Comment on above: Tailor's bunion of b oth feet (Primary Dx); Corns and callosities; Pain in both feet Start: 03-30-2025 End: 03-30-2025 ambulatory MANASA DUNAWAY Not Available Start: 03-30-2025 End: 03-30-2025 Bamboo flowsheet Manasa Dunaway DPM Work Phone: [facility] Start: 03-30-2025 End: 03-30-2025 Bamboo flowsheet Manasa Dunaway DPM Work Phone: [facility] Start: 03-09-2025 End: 03-09-2025 Social Work Sheila Braun [facility] Work Phone: [facility] Shreyas [employer] [facility] Comment on above: Generalized anxiety disorder ; Bipolar affective disorder, currently depressed, mild (HCC) Start: 03-09-2025 End: 03-09-2025 Bamboo flowsheet Sheila Braun [facility] Work Phone: [facility] Start: 03-09-2025 End: 03-09-2025 [employer]amboo [employer] Sheila Braun [facility] Work Phone: [facility] Start: 03-08-2025 End: 03-08-2025 Refill Eliot García DO Work Phone: [facility] Comment on above: Anxiety; Primary insomnia Start: 03-03-2025 End: 03-03-2025 Bamboo [employer] Sheila Braun [facility] Work Phone: [facility] Start: 03-03-2025 End: 03-03-2025 [employer] Sheila Braun [facility] Work Phone: [facility] Sh[facility]as [facility] Start: 03-03-2025 End: 03-03-2025 Social Work Sheila Braun [facility] Work Phone: [facility] Shreyas [employer] Comment on above: Generalized anxiety disorder ; Bipolar affective disorder, currently depressed, mild (HCC) Start: 02-22-2025 End: 02-22-2025 Office outpatient visit 15 minutes Manasa Dunaway DPM Work Phone: [facility] Comment on above: Tailor's bunion of b oth feet (Primary Dx); Corns and callosities; Pain in both feet Start: 02-22-2025 End: 02-22-2025 ambulatory MANASA DUNAWAY Not Available Start: 02-17-2025 End: 02-17-2025 Social Work [facility] [facility] Work Phone: [facility] Comment on above: Generalized anxiety disorder ; Bipolar affective disorder, currently depressed, mild (HCC) Start: 02-17-2025 End: 02-17-2025 Bamboo flowsheet Sheila L [facility] Work Phone: [facility] Start: 02-17-2025 End: 02-17-2025 Bamboo flowsheet Sheila L [facility] Work Phone: [facility] Start: 02-09-2025 End: 02-09-2025 Bamboo flowsheet Sheila L Braun [facility] Work Phone: [facility] Start: 02-09-2025 End: 02-09-2025 Bamboo flowsheet [facility]ila L [facility] Work Phone: [facility] Start: 02-09-2025 End: 02-09-2025 Social Work Sheila L Braun [facility] Work Phone: [facility] Comment on above: Generalized anxiety disorder ; Bipolar affective disorder, currently depressed, mild (HCC) Start: 02-08-2025 End: 02-08-2025 Bamboo flowsheet Eliot L [place] DO Work Phone: [facility] Start: 02-08-2025 End: 02-08-2025 Bamboo flowsheet Eliot L [place] DO Work Phone: [facility] Start: 02-08-2025 End: 02-08-2025 Office outpatient visit 25 minutes Eliot L [place] DO Work Phone: [facility] 230 Comment on above: Iron deficiency anem ia, unspecified iron deficiency anemia type (Primary Dx); Primary insomnia; Bariatric surgery status; Bipolar affective disorder, currently depressed, mild (HCC) Start: 02-08-2025 End: 02-08-2025 ambulatory ELIOT L CUTLER Not Available Start: 01-27-2025 End: 01-27-2025 Bamboo flowsheet Eliot L [place] DO Work Phone: [facility] Start: 01-27-2025 End: 01-27-2025 Bamboo flowsheet Eliot L [place] DO Work Phone: [facility] Start: 01-27-2025 End: 01-27-2025 Office outpatient visit 25 minutes Eliot García DO Work Phone: [facility] 230 Comment on above: Bipolar affective di sorder, currently depressed, mild (HCC) (Primary Dx); Iron deficiency anemia, unspecified iron deficiency anemia type; Primary insomnia; Bariatric surgery status Start: 01-27-2025 End: 01-27-2025 Social Work Sheila Braun [facility] Work Phone: [facility] Comment on above: Generalized anxiety disorder ; Bipolar affective disorder, currently depressed, mild (HCC) Start: 01-21-2025 End: 01-21-2025 Bamboo [employer] Sheila Braun [facility] Work Phone: [facility] Start: 01-21-2025 End: 01-21-2025 Bamboo [employer] [facility] Sheila Braun [facility] Work Phone: [facility] Start: 01-21-2025 End: 01-21-2025 Marginize Sheilaesperanza Braun [facility] Work Phone: [facility] Comment on above: Generalized anxiety disorder ; Bipolar affective disorder, currently depressed, mild (HCC) Start: 01-20-2025 End: 01-20-2025 Bamboo flowsheet Manasa Dunaway DPM Work Phone: [facility] Start: 01-20-2025 End: 01-20-2025 Bamboo flowsheet Manasa Dunaway DPM Work Phone: [facility] Start: 01-20-2025 End: 01-20-2025 Office outpatient visit 25 minutes Manasa Dunaway DPM Work Phone: [facility] Comment on above: Hammer toe of right foot (Primary Dx); Corns and callosities; Pain in both feet Start: 01-20-2025 End: 01-20-2025 ambulatory MANASA DUNAWAY Not Available Start: 01-12-2025 End: 01-12-2025 Social Work Sheila Braun [facility] Work Phone: [facility] Comment on above: Generalized anxiety disorder (CMS/HCC); Bipolar affective disorder, currently depressed, mild (CMS/HCC) Start: 01-12-2025 End: 01-12-2025 Bamboo flowsheet Sheila Braun [facility] Work Phone: [facility] Start: 01-12-2025 End: 01-12-2025 Bamboo flowsheet Sheila Braun [facility] Work Phone: [facility] Start: 01-06-2025 End: 01-06-2025 Telephone encounter Eliot García DO Work Phone: [facility] 230 Comment on above: Med Refill Start: 12-30-2024 End: 12-30-2024 Follow-up encounter Eliot García DO Work Phone: [facility] 230 Comment on above: Iron deficiency anem ia, unspecified iron deficiency anemia type (Primary Dx) Start: 12-29-2024 End: 12-30-2024 Social Work Sheila Braun [facility] Work Phone: [facility] Comment on above: Generalized anxiety disorder (CMS/HCC); Bipolar affective disorder, currently depressed, mild (CMS/HCC) Start: 12-23-2024 End: 12-23-2024 Social Work Sheila Braun [facility] Work Phone: [facility] Comment on above: Generalized anxiety disorder (CMS/HCC); Bipolar affective disorder, currently depressed, mild (CMS/HCC) Start: 12-22-2024 End: 12-22-2024 Social Work Sheila Braun [facility] Work Phone: [facility] Comment on above: Generalized anxiety disorder (CMS/HCC); Bipolar affective disorder, currently depressed, mild (CMS/HCC) Start: 12-22-2024 End: 12-22-2024 Bamboo flowsheet Sheila Braun [facility] Work Phone: [facility] Start: 12-22-2024 End: 12-22-2024 Bamboo flowsheet Sheila Braun [facility] Work Phone: [facility] Start: 12-21-2024 End: 12-21-2024 Bamboo flowsheet Immanuel Kuhn DO Work Phone: [facility] Start: 12-21-2024 End: 12-21-2024 Bamboo flowsheet Immanuel Kuhn DO Work Phone: [facility] Start: 12-21-2024 End: 12-21-2024 ambulatory IMMANUEL KUHN Not Available Start: 12-21-2024 End: 12-21-2024 Office outpatient visit 25 minutes Immanuel Kuhn DO Work Phone: [facility] 230 Comment on above: Neuropathy (Primary Dx); Major depressive disorder, single episode, moderate (HCC); Anxiety Start: 12-09-2024 End: 12-09-2024 ambulatory ELIOT L CUTLER Not Available Start: 12-09-2024 End: 12-09-2024 Office outpatient visit 25 minutes Eliot L [place] DO Work Phone: [facility] 230 Comment on above: Bipolar affective di sorder, currently depressed, mild (CMS/HCC) (Primary Dx); Primary insomnia; Bariatric surgery status; Major depressive disorder, single episode, moderate (HCC) (CMS/HCC); LUISITO (generalized anxiety disorder) (CMS/HCC); Neuropathy Start: 12-08-2024 End: 12-08-2024 Social Work Sheila Braun [facility] Work Phone: [facility] Comment on above: Generalized anxiety disorder (CMS/HCC); Bipolar affective disorder, currently depressed, mild (CMS/HCC) Start: 12-08-2024 End: 12-08-2024 Bamboo flowsheet Sheila Braun [facility] Work Phone: [facility] Start: 12-08-2024 End: 12-08-2024 Bamboo flowsheet Sheila Braun [facility] Work Phone: [facility] Start: 12-03-2024 End: 12-03-2024 Bamboo flowsheet Sheilaesperanza Braun [facility] Work Phone: [facility] Start: 12-03-2024 End: 12-03-2024 Bamboo flowsheet Sheilaesperanza Braun [facility] Work Phone: [facility] Start: 12-03-2024 End: 12-03-2024 Social Work Sheila Braun [facility] Work Phone: [facility] Comment on above: Generalized anxiety disorder (CMS/HCC); Bipolar affective disorder, currently depressed, mild (CMS/HCC) Start: 11-25-2024 End: 11-26-2024 Social Work Sheilaesperanza Braun [facility] Work Phone: [facility] Comment on above: Generalized anxiety disorder (CMS/HCC); Bipolar affective disorder, currently depressed, mild (CMS/HCC) Start: 11-25-2024 End: 11-25-2024 Bamboo flowsheet Sheila Braun [facility] Work Phone: [facility] Start: 11-25-2024 End: 11-25-2024 Bamboo flowsheet Sheila Braun [facility] Work Phone: [facility] Start: 11-18-2024 End: 11-18-2024 Social Work Sheila Braun [facility] Work Phone: [facility] Comment on above: Generalized anxiety disorder (CMS/HCC); Bipolar affective disorder, currently depressed, mild (CMS/HCC) Start: 11-18-2024 End: 11-18-2024 Bamboo flowsheet [facility] L [facility]ade [facility] Work Phone: [facility] Start: 11-18-2024 End: 11-18-2024 Bamboo flowsheet Sheila L Kade [facility] Work Phone: [facility] Start: 11-12-2024 End: 11-12-2024 Social Work Sheilaesperanza Braun [facility] Work Phone: [facility] Comment on above: Generalized anxiety disorder (CMS/HCC); Bipolar affective disorder, currently depressed, mild (CMS/HCC) Start: 11-12-2024 End: 11-12-2024 Bamboo flowsheet Sheila L Braun [facility] Work Phone: [facility] Start: 11-12-2024 End: 11-12-2024 Bamboo flowsheet Sheila L Kade [facility] Work Phone: [facility] Start: 11-06-2024 End: 11-06-2024 Refill Eliot Josefa García DO Work Phone: [facility] 230 Comment on above: LUISITO (generalized anx iety disorder) (CMS/HCC) Start: 11-05-2024 End: 11-06-2024 Refill Татьяна Carter PA Work Phone: [facility] 230 Comment on above: Gastroesophageal ref lux disease with esophagitis without hemorrhage Start: 11-03-2024 End: 11-03-2024 Bamboo flowsheet Sheila L Braun [facility] Work Phone: [facility] Start: 11-03-2024 End: 11-03-2024 Bamboo flowsheet Sheila L Braun [facility] Work Phone: [facility] Start: 11-03-2024 End: 11-03-2024 Social Work Sheila Josefa Braun [facility] Work Phone: [facility] Comment on above: Generalized anxiety disorder (CMS/HCC); Bipolar affective disorder, currently depressed, mild (CMS/HCC) Start: 10-27-2024 End: 10-28-2024 Social Work Sheila L Braun [facility] Work Phone: [facility] Comment on above: Generalized anxiety disorder (CMS/HCC); Bipolar affective disorder, currently depressed, mild (CMS/HCC) Start: 10-15-2024 End: 10-15-2024 Bamboo flowsheet Sheila L Braun [facility] Work Phone: [facility] Start: 10-15-2024 End: 10-15-2024 Bamboo flowsheet Sheila L Braun [facility] Work Phone: [facility] Start: 10-15-2024 End: 10-15-2024 ambulatory SHEILA BRAUN Not Available Start: 10-07-2024 End: 10-08-2024 Social Work Sheila Braun [facility] Work Phone: [facility] Comment on above: Generalized anxiety disorder (CMS/HCC); Bipolar affective disorder, currently depressed, mild (CMS/HCC) Start: 10-07-2024 End: 10-07-2024 Bamboo flowsheet Sheila Braun [facility] Work Phone: [facility] Start: 10-07-2024 End: 10-07-2024 Bamboo flowsheet Sheila Braun [facility] Work Phone: [facility] Start: 09-17-2024 End: 09-17-2024 Bamboo flowsheet Sheila Braun [facility] Work Phone: [facility] Start: 09-17-2024 End: 09-17-2024 Bamboo flowsheet Sheila Braun [facility] Work Phone: [facility] Start: 09-17-2024 End: 09-17-2024 Social Work Sheila Braun [facility] Work Phone: [facility] Comment on above: Generalized anxiety disorder (CMS/HCC); Bipolar affective disorder, currently depressed, mild (CMS/HCC) Start: 09-14-2024 End: 09-14-2024 Bamboo flowsheet Immanuel Kuhn DO Work Phone: [facility] Start: 09-14-2024 End: 09-14-2024 Bamboo flowsheet Immanuel Kuhn DO Work Phone: [facility] Start: 09-14-2024 End: 09-14-2024 Office outpatient visit 25 minutes Immanuel Kuhn DO Work Phone: [facility] 230 Comment on above: Acute cough (Primary Dx); Viral URI with cough; Primary insomnia; Anxiety; Influenza A Start: 09-14-2024 End: 09-14-2024 ambulatory IMMANUEL KUHN Not Available Start: 09-11-2024 End: 09-11-2024 ambulatory Kvng Marie Facility:[facility] Start: 09-11-2024 End: 09-11-2024 Patient encounter procedure Kvng Marie [facility] Start: 09-08-2024 End: 09-08-2024 Bamboo flowsheet Sheila L Braun [facility] Work Phone: [facility] Start: 09-08-2024 End: 09-08-2024 Bamboo flowsheet Sheila L Braun [facility] Work Phone: [facility] Start: 09-08-2024 End: 09-08-2024 Social Work Sheila L Braun [facility] Work Phone: [facility] Comment on above: Generalized anxiety disorder (CMS/HCC); Bipolar affective disorder, currently depressed, mild (CMS/HCC) Start: 09-02-2024 End: 09-02-2024 Bamboo flowsheet Sheila L Braun [facility] Work Phone: [facility] Start: 09-02-2024 End: 09-02-2024 Bamboo flowsheet Sheila L Braun [facility] Work Phone: [facility] Start: 09-02-2024 End: 09-02-2024 Social Work Sheila L Braun [facility] Work Phone: [facility] Comment on above: Generalized anxiety disorder (CMS/HCC); Bipolar affective disorder, currently depressed, mild (CMS/HCC) Start: 08-26-2024 End: 08-26-2024 Bamboo flowsheet Sheila L Braun [facility] Work Phone: [facility] Start: 08-26-2024 End: 08-26-2024 Bamboo flowsheet Sheila L Braun [facility] Work Phone: [facility] Start: 08-26-2024 End: 08-26-2024 [employer] Work Sheila Braun [facility] Work Phone: [facility] Comment on above: Generalized anxiety disorder (CMS/HCC); Bipolar affective disorder, currently depressed, mild (CMS/HCC) Start: 08-25-2024 End: 08-25-2024 Orders Only Татьяна ASHRAF Work Phone: [facility] 230 Comment on above: Anxiety (Primary Dx) ; Rash Start: 08-20-2024 End: 08-21-2024 [employer] Work Sheila Youngbloodnett [facility] Work Phone: [facility] Comment on above: Generalized anxiety disorder (CMS/HCC); Bipolar affective disorder, currently depressed, mild (CMS/HCC) Start: 08-20-2024 End: 08-20-2024 Bamboo flowsheet Sheila Braun [facility] Work Phone: [facility] Start: 08-20-2024 End: 08-20-2024 Bamboo flowsheet Sheila Braun [facility] Work Phone: [facility] Start: 08-11-2024 End: 08-11-2024 Bamboo flowsheet Immanuel Kuhn DO Work Phone: [facility] Start: 08-11-2024 End: 08-11-2024 Bamboo flowsheet Immanuel Kuhn DO Work Phone: [facility] 230 Start: 08-11-2024 End: 08-11-2024 Office outpatient visit 25 minutes Immanuel Kuhn DO Work Phone: [facility] 230 Comment on above: Major depressive dis order, single episode, moderate (HCC) (CMS/HCC) (Primary Dx); Primary insomnia; Type 2 diabetes mellitus with diabetic polyneuropathy (CMS/HCC) Start: 08-11-2024 End: 08-11-2024 Social Work Sheila Youngbloodnett [facility] Work Phone: [facility] Comment on above: Generalized anxiety disorder (CMS/HCC); Bipolar affective disorder, currently depressed, mild (CMS/HCC) Start: 07-22-2024 End: 07-22-2024 Bamboo flowsheet Sheila Braun [facility] Work Phone: [facility] Start: 07-22-2024 End: 07-22-2024 Bamboo flowsheet Sheila Braun [facility] Work Phone: [facility] Start: 07-22-2024 End: 07-22-2024 Social Work Sheila Braun [facility] Work Phone: [facility] Comment on above: Generalized anxiety disorder (CMS/HCC); Bipolar affective disorder, currently depressed, mild (CMS/HCC) Start: 07-21-2024 End: 07-21-2024 ambulatory Kvng Marie Facility:[id number] Start: 07-15-2024 End: 07-15-2024 Social Work Sheila Braun [facility] Work Phone: [facility] Comment on above: Generalized anxiety disorder (CMS/HCC); Bipolar affective disorder, currently depressed, mild (CMS/HCC) Start: 07-13-2024 End: 07-13-2024 Bamboo flowsheet Eliot L [place] DO Work Phone: [facility] 230 Start: 07-13-2024 End: 07-13-2024 Bamboo flowsheet Eliot L [place] DO Work Phone: [facility] 230 Start: 07-13-2024 End: 07-13-2024 Office outpatient visit 25 minutes Eliot L [place] DO Work Phone: [facility] 230 Comment on above: Bipolar affective di sorder, currently depressed, mild (CMS/HCC); Primary insomnia Start: 07-13-2024 End: 07-13-2024 ambulatory ELIOT L CUTLER Not Available Start: 07-08-2024 End: 07-08-2024 Bamboo flowsheet Sheila Braun [facility] Work Phone: [facility] Start: 07-08-2024 End: 07-08-2024 Bamboo flowsheet Sheila Braun [facility] Work Phone: [facility] Start: 07-08-2024 End: 07-08-2024 Social Work Sheila Braun [facility] Work Phone: [facility] Comment on above: Generalized anxiety disorder (CMS/HCC); Bipolar affective disorder, currently depressed, mild (CMS/HCC) Start: 07-01-2024 End: 07-01-2024 Bamboo flowsheet Sheila Braun [facility] Work Phone: [facility] Start: 07-01-2024 End: 07-01-2024 Bamboo flowsheet Sheila Braun [facility] Work Phone: [facility] Start: 07-01-2024 End: 07-01-2024 Social Work Sheila Braun [facility] Work Phone: [facility] Comment on above: Generalized anxiety disorder (CMS/HCC); Bipolar affective disorder, currently depressed, mild (CMS/HCC) Start: 06-25-2024 End: 06-25-2024 Bamboo flowsheet Sheila Braun [facility] Work Phone: [facility] Start: 06-25-2024 End: 06-25-2024 Bamboo flowsheet Sheila Braun [facility] Work Phone: [facility] Start: 06-25-2024 End: 06-25-2024 Social Work Sheila Braun [facility] Work Phone: [facility] Comment on above: Generalized anxiety disorder (CMS/HCC); Bipolar affective disorder, currently depressed, mild (CMS/HCC) Start: 06-17-2024 End: 06-17-2024 Bamboo flowsheet Eliot L [place] DO Work Phone: [facility] Start: 06-17-2024 End: 06-17-2024 Bamboo flowsheet Eliot L [place] DO Work Phone: [facility] Start: 06-17-2024 End: 06-17-2024 Office outpatient visit 25 minutes Eliot García DO Work Phone: [facility] 230 Comment on above: Primary insomnia (Pr imary Dx); Anastomotic ulcer; Bipolar affective disorder, currently depressed, mild (CMS/HCC); Constipation, unspecified constipation type Start: 06-17-2024 End: 06-17-2024 Social Work Sheila Rivero Braun [facility] Work Phone: [facility] Comment on above: Generalized anxiety disorder (CMS/HCC); Bipolar affective disorder, currently depressed, mild (CMS/HCC) Start: 06-11-2024 End: 06-11-2024 Bamboo flowsheet Sheila Youngbloodnett [facility] Work Phone: [facility] Start: 06-11-2024 End: 06-11-2024 Bamboo [employer] Sheila Braun [facility] Work Phone: [facility] Start: 06-11-2024 End: 06-11-2024 Social Work Sheilaesperanza Braun [facility] Work Phone: [facility] Comment on above: Generalized anxiety disorder (CMS/HCC); Bipolar affective disorder, currently depressed, mild (CMS/HCC) Start: 06-09-2024 End: 06-09-2024 Office outpatient visit 15 minutes Esther Angeles MD Work Phone: [facility] Comment on above: Vaginal bleeding dur ing ; Encounter for supervision of normal first in first trimester; Miscarriage Start: 06-09-2024 End: 06-09-2024 ambulatory ESTHER ANGELES Not Available Start: 06-04-2024 End: 06-04-2024 Bamboo flowsheet Sheila Josefa Braun [facility] Work Phone: [facility] Start: 06-04-2024 End: 06-04-2024 Bamboo flowsheet Sheilaesperanza Braun [facility] Work Phone: [facility] Start: 06-04-2024 End: 06-04-2024 flow sheet [facility] Ob Nurse [facility] Comment on above: GA: 7w5d Start: 06-04-2024 End: 06-04-2024 Social Work Sheila Braun [facility] Work Phone: [facility] Comment on above: Generalized anxiety disorder (CMS/HCC); Bipolar affective disorder, currently depressed, mild (CMS/HCC) Start: 05-28-2024 End: 05-28-2024 Bamboo flowsheet Sheila Braun [facility] Work Phone: [facility] Start: 05-28-2024 End: 05-28-2024 Bamboo flowsheet Sheila Braun [facility] Work Phone: [facility] Start: 05-28-2024 End: 05-28-2024 Social Work Sheila Braun [facility] Work Phone: [facility] Comment on above: Generalized anxiety disorder (CMS/HCC); Bipolar affective disorder, currently depressed, mild (CMS/HCC) Start: 05-24-2024 End: 05-24-2024 Office outpatient visit 25 minutes Rea Kaplan [employer] Work Phone: [facility] Comment on above: Viral illness (Prima ry Dx); Pharyngitis, unspecified etiology Start: 05-24-2024 End: 05-24-2024 ambulatory REA KAPLAN Not Available Start: 05-21-2024 End: 05-21-2024 Bamboo flowsheet Sheila Braun [facility] Work Phone: [facility] Start: 05-21-2024 End: 05-21-2024 Bamboo flowsheet Sheila Braun [facility] Work Phone: [facility] Start: 05-21-2024 End: 05-21-2024 Social Work Sheila Braun [facility] Work Phone: [facility] Comment on above: Generalized anxiety disorder (CMS/HCC); Bipolar affective disorder, currently depressed, mild (CMS/HCC) Start: 05-19-2024 End: 05-19-2024 Telephone encounter Eliot García DO Work Phone: [facility] 230 Start: 05-19-2024 End: 05-19-2024 Office outpatient visit 25 minutes Eliot L [place] DO Work Phone: [facility] 230 Comment on above: , unspecifi ed gestational age (Primary Dx); Missed menses Start: 05-19-2024 End: 05-19-2024 ambulatory IMMANUEL KUHN Not Available Start: 05-07-2024 End: 05-07-2024 Bamboo flowsheet Eliot L [place] DO Work Phone: [facility] 230 Start: 05-07-2024 End: 05-07-2024 Bamboo flowsheet Eliot L [place] DO Work Phone: [facility] 230 Start: 05-07-2024 End: 05-07-2024 ambulatory ELIOT L CUTLER Not Available Start: 05-07-2024 End: 05-07-2024 Office outpatient visit 25 minutes Eliot L [place] DO Work Phone: [facility] 230 Comment on above: Bipolar affective di sorder, currently depressed, mild (CMS/HCC) (Primary Dx); LUISITO (generalized anxiety disorder) (CMS/HCC); Irritable bowel syndrome with both constipation and diarrhea; Anastomotic ulcer Start: 05-05-2024 End: 05-05-2024 Bamboo flowsheet Sheilaesperanza Braun [facility] Work Phone: [facility] Start: 05-05-2024 End: 05-05-2024 Bamboo flowsheet Sheila Josefa YoungbloodBraun [facility] Work Phone: [facility] Start: 05-05-2024 End: 05-05-2024 Social Work Sheilaesperanza Braun [facility] Work Phone: [facility] Comment on above: Generalized anxiety disorder (CMS/HCC); Bipolar affective disorder, currently depressed, mild (CMS/HCC) Anxiety Start: 05-04-2024 End: 05-04-[facility] kaley rodriguez Start: 05-04-2024 End: 05-04-2024 Patient encounter procedure Kvng Marie [facility] Start: 04-28-2024 End: 04-28-2024 Telephone encounter Sheila Braun [facility] Work Phone: [facility] Start: 04-22-2024 End: 04-22-2024 Refill Eliot Rivero [place] DO Work Phone: [facility] 230 Comment on above: Primary insomnia Start: 04-21-2024 End: 04-21-2024 Social Work Sheila Josefa Braun [facility] Work Phone: [facility] Comment on above: Generalized anxiety disorder (CMS/HCC); Bipolar affective disorder, currently depressed, mild (CMS/HCC) Start: 04-21-2024 End: 04-21-2024 Bamboo flowsheet Sheilaesperanza Braun [facility] Work Phone: [facility] Start: 04-21-2024 End: 04-21-2024 Bamboo flowsheet Sheila Youngbloodnett [facility] Work Phone: [facility] Start: 04-20-2024 End: 04-20-2024 ambulatory [facility] Facility[facility] Start: 04-10-2024 End: 04-10-2024 Clinisync Result Encounter Generic External Data Provider [facility] External Department Unsolicited Start: 04-10-2024 End: 04-10-2024 Clinisync Result Encounter Generic External Data Provider [facility] External Department Unsolicited Start: 04-10-2024 End: 04-10-2024 ambulatory [facility] Facility[facility] [facility] Start: 04-10-2024 End: 04-10-2024 ambulatory [facility] Facility:[facility] Start: 04-10-2024 End: 04-10-2024 Patient encounter procedure Nurse Lyla [facility] Work Phone: Endocrinology Comment on above: 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) Start: 04-09-2024 End: 04-09-2024 Telephone encounter Vikki Bailey MD Work Phone: [facility] Start: 04-01-2024 End: 04-01-2024 Bamboo flowsheet Sheila Braun [facility] Work Phone: [facility] Start: 04-01-2024 End: 04-01-2024 Bamboo flowsheet Sheila Braun [facility] Work Phone: [facility] Start: 04-01-2024 End: 04-01-2024 Social Work Sheila Braun [facility] Work Phone: [facility] Comment on above: Generalized anxiety disorder (CMS/HCC); Bipolar affective disorder, currently depressed, mild (CMS/HCC) Start: 03-25-2024 End: 03-25-2024 Bamboo flowsheet Sheila Braun [facility] Work Phone: [facility] Start: 03-25-2024 End: 03-25-2024 Bamboo flowsheet Sheila Braun [facility] Work Phone: [facility] Start: 03-25-2024 End: 03-25-2024 Refill Eliot García DO Work Phone: [facility] 230 Comment on above: Primary insomnia Med Refill Generalized anxiety disorder (CMS/HCC); Bipolar affective disorder, currently depressed, mild (CMS/HCC) Start: 03-24-2024 End: 03-24-2024 Lab Drop off Calderon Talal Sarmini [facility] Start: 03-24-2024 End: 03-24-2024 ambulatory Calderon Talal Sarmini Facility[facility] Start: 03-24-2024 End: 03-24-2024 ambulatory Calderon Talal Sarmini Facility:[id number] Start: 03-19-2024 End: 03-19-2024 ambulatory Calderon Talal Sarmini Facility:[facility]ael[facility] roche [facility] Start: 03-19-2024 End: 03-19-2024 Patient encounter procedure Kvng Marie [facility] Start: 03-18-2024 End: 03-18-2024 Social Work Sheila Braun [facility] Work Phone: [facility] Comment on above: Generalized anxiety disorder (CMS/HCC); Bipolar affective disorder, currently depressed, mild (CMS/HCC) Start: 02-27-2024 ambulatory Kvng Marie [facility] Start: 02-26-2024 End: 02-26-2024 ambulatory [facility] Facility:[facility] Start: 02-21-2024 End: 02-21-2024 Emergency department patient visit DO Immanuel Kuhn Work Phone: [facility] Work Phone: Start: 02-19-2024 End: 02-19-2024 ambulatory [facility] Facility:[facility] Start: 02-13-2024 End: 02-13-2024 Office outpatient visit 25 minutes Immanuel Kuhn DO Work Phone: [facility] 230 Comment on above: Primary hypertension (CMS/HCC) (Primary Dx); Primary hyperaldosteronism (CMS/HCC); LUISITO (generalized anxiety disorder) (CMS/HCC) Start: 02-13-2024 Telephone encounter Vikki smith MD Work Phone: Endocrinology Start: 02-13-2024 End: 02-13-2024 ambulatory [facility] Facility:[facility] Start: 02-12-2024 End: 02-12-2024 ambulatory Vikki Bailey MD Work Phone: Endocrinology Comment on above: Hydrocortisone plan Start: 02-12-2024 E-mail encounter fro m caregiver Vikki Bailey MD Work Phone: Endocrinology Start: 02-12-2024 End: 02-12-2024 Patient encounter procedure Vikki Bailey MD Work Phone: Endocrinology Comment on above: 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); Primary hyperaldosteronism (HCC); Adenoma of left adrenal gland Primary hyperaldoste ronism (HCC) (Primary Dx) Start: 02-07-2024 Telephone encounter Vikki smith MD Work Phone: Endocrinology Start: 02-07-2024 End: 02-07-2024 ambulatory [facility] Facility:[facility] Start: 02-04-2024 End: 02-04-2024 [facility] Facility:[facility] Start: 02-04-2024 End: 02-04-2024 Patient encounter procedure Manuel Alfaro MD Work Phone: Kidney Medicine Comment on above: Chronic hypokalemia (Primary Dx); Primary hyperaldosteronism (HCC); Uncontrolled hypertension Start: 02-03-2024 End: 02-03-2024 [facility] Facility:[facility] Start: 01-27-2024 End: 01-29-2024 Evaluation and management of inpatient IMMANUEL KUHN Facility:[facility] Start: 01-20-2024 End: 01-20-2024 [facility] Facility:[facility] Start: 01-20-2024 Encounter for other preprocedural examination IMMANUEL KUHN [facility] Start: 01-20-2024 End: 01-20-2024 Office outpatient visit 15 minutes [facility] Virtual Pre Anesthesia Comment on above: Pre-op evaluation (P rimary Dx); Oligodendroglioma of brain (HCC); History of bariatric surgery; Iron deficiency; Adenoma of left adrenal gland; Primary hyperaldosteronism (HCC); Tobacco use; History of hypokalemia Start: 01-20-2024 End: 01-20-2024 [facility]: Start: 01-16-2024 End: 01-16-2024 [facility] Facility:[facility] Start: 01-02-2024 E-mail encounter cayla Alfaro MD Work Phone: Kidney Medicine Start: 01-02-2024 Follow-up encounter Tarek Asho ur MD Work Phone: Kidney Medicine Comment on above: follow up Start: 01-02-2024 End: 01-02-2024 [facility] Facility:[facility] Start: 12-23-2023 End: 12-23-2023 [facility] Facility:[facility] Start: 12-19-2023 Telephone encounter aMrio encinas MD Work Phone: Endocrine Surgery Comment on above: 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 Start: 12-19-2023 End: 12-19-2023 [facility] Facility:[facility] Start: 12-16-2023 End: 12-16-2023 ambulatory Manuel Alfaro MD Work Phone: Kidney Medicine Comment on above: Recent potassium pre scription Start: 12-13-2023 E-mail encounter cayla m caregiver Manuel Alfaro MD Work Phone: Kidney Medicine Start: 12-13-2023 Follow-up encounter Manuel diehl MD Work Phone: Kidney Medicine Comment on above: Follow up Chronic hypokalemia (Primary Dx) Start: 12-13-2023 End: 12-13-2023 [facility] Facility:[facility] Start: 12-11-2023 End: 12-11-2023 Patient encounter procedure Manuel Alfaro MD Work Phone: Kidney Medicine Comment on above: Chronic hypokalemia (Primary Dx); Adenoma of left adrenal gland; Primary hyperaldosteronism (HCC); Uncontrolled hypertension; Hypertension secondary to endocrine disorders; History of bariatric surgery Start: 12-11-2023 End: 12-11-2023 [facility] Facility:[facility] Start: 12-10-2023 End: 12-10-2023 Evaluation and management of inpatient IMMANUEL KUHN Facility:[facility] Start: 12-06-2023 End: 12-06-2023 PAT [facility] Ralph 2 Work Phone: Pre Anesthesia Comment on above: Pre-op evaluation (P rimary Dx); Iron deficiency; Migraine with aura and without status migrainosus, not intractable; First degree AV block; Acute hypokalemia; Oligodendroglioma of brain (HCC); Bipolar affective disorder, currently depressed, mild (HCC); Depressive disorder; Anxiety; History of bariatric surgery Start: 12-06-2023 End: 12-06-2023 Preprocedural examination done [facility] [place] 2 Work Phone: [facility] Work Phone: Start: 11-19-2023 Telephone encounter Mario encinas MD Work Phone: Endocrine Surgery Comment on above: Patient Question (Pt want to confirm one or two weeks for being off of work after surgery?) Start: 11-15-2023 Telephone encounter Arianna avendano MD Work Phone: Endocrinology Comment on above: Critical Results Start: 11-15-2023 End: 11-15-2023 ambulatory ARIANNA LORA Facility:[facility] Start: 11-14-2023 Telephone encounter Arianna avendano MD Work Phone: Endocrinology Comment on above: Returning Patient's Call; Results Start: 11-14-2023 End: 11-14-2023 ambulatory NATASHA CHASE Facility:[facility] Start: 11-05-2023 ambulatory Mario Santiago MD Work Phone: Endocrine Surgery Comment on above: OR [facility] 12/10/23 (Roboti c lap left adrenalectomy ) Start: 10-25-2023 Telephone encounter Mario encinas MD Work Phone: Endocrine Surgery 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 on above: 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 Start: 10-23-2023 End: 10-23-2023 ambulatory MIGEL IY Facility:[facility] Start: 10-22-2023 End: 10-22-2023 ambulatory ARMANDO CUNNINGHAM Facility:[facility] Start: 10-11-2023 End: 10-11-2023 ambulatory ARMANDO CUNNINGHAM Facility:[facility] Start: 09-13-2023 Telephone encounter Barbara Dixon NP Work Phone: [facility] Start: 09-13-2023 End: 09-13-2023 Office outpatient visit 25 minutes Barbara Dixon NP Work Phone: [facility] Comment on above: Acute bronchitis, [...] patient Mario Santiago MD Work Phone: [facility] Start: 09-11-2023 Bamboo [employer] Wave Powerheet Sheila Rain [facility] Work Phone: [facility] Start: 09-11-2023 Bamboo flowsheet Sheilaesperanza Rain tt [facility] Work Phone: [facility] Start: 09-11-2023 End: 09-11-2023 Social Work Sheila Braun [facility] Work Phone: [facility] Comment on above: Generalized anxiety disorder (CMS/HCC); Bipolar affective disorder, currently depressed, mild (CMS/HCC) Start: 09-10-2023 Chart abstracting Manasa Dunaway DPM Work Phone: [facility] Start: 09-10-2023 End: 09-10-2023 ambulatory IMMANUEL KUHN Facility:[facility] Start: 09-09-2023 End: 09-09-2023 ambulatory Zara Ralph Other [employer] Other Start: 09-09-2023 Office outpatient vi sit 25 minutes Zara Ramo [facility] Start: 09-06-2023 Clinisync Result Encounter Gen juan luis External Data Provider [facility] External Department Unsolicited Start: 09-06-2023 Clinisync Result Encounter Gen mcknight External Data Provider [facility] External Department Unsolicited Start: 09-06-2023 Telephone encounter Mario encinas MD Work Phone: Endocrine Surgery Comment on above: Consult (FACE SHEET) Start: 09-06-2023 End: 09-06-2023 ambulatory IMMANUEL KUHN Facility:[facility] Start: 09-05-2023 Telephone encounter Mario encinas MD Work Phone: General Surgery Comment on above: Appointment (Called patient and left a message that patient was added to 's schedule for a virtual appointment for 09/12 at 11AM per . Sent [employer] message and mailed out appointment reminder) Start: 08-30-2023 End: 08-30-2023 ambulatory IMMANUEL Joe BAM Facility:[facility] Start: 08-30-2023 End: 08-30-2023 Patient encounter procedure DO Immanuel Kuhn Work Phone: [facility] [place] Work Phone: Start: 08-30-2023 End: 08-30-2023 ambulatory DO Immanuel Kuhn Work Phone: [facility] Work Phone: Start: 08-23-2023 End: 08-23-2023 ambulatory Zara Ramo Other [employer] Other Start: 08-23-2023 Telephone encounter Zara Ramo [facility] Start: 08-20-2023 End: 08-20-2023 Telemedicine consultation with patient Vikki Bailey MD Work Phone: [facility] Start: 08-20-2023 End: 08-20-2023 ambulatory Vikki Bailey MD Work Phone: Endocrinology Comment on above: 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) Start: 08-19-2023 End: 08-19-2023 ambulatory Zara Ramo Other [employer] Other Start: 08-19-2023 Office outpatient ne w 45 minutes Zara Ralph [facility] Ne[facility] Start: 08-19-2023 End: 08-19-2023 Patient encounter procedure DO Immanuel Kuhn Work Phone: [facility] Work Phone: Start: 03-18-[address] Della Kim Facility: Start: 12-13-2022 Encounter for preprocedural laboratory examination DR DOCTOR FARMER [facility] Start: 12-07-2022 End: 12-08-[address] IMMANUEL KUHN Facility:[facility] Start: 12-07-2022 End: 12-08-2022 Encounter for preprocedural laboratory examination DR IMMANUEL KUHN Facility:[facility] Start: 11-05-20[facility] Start: 10-23-2022 End: 10-24-2022 ambulatory ZAKIA BENSON Facility:[facility] Start: 10-22-2022 End: 10-23-2022 [facility] Start: 09-13-2022 End: 09-13-2022 ambulatory DO Immanuel Kuhn Work Phone: [facility] Work Phone: Start: 09-13-2022 End: 09-13-2022 Patient encounter procedure DO Immanuel Kuhn Work Phone: [facility] [place] Work Phone: Start: 09-10-2022 End: 09-10-2022 ambulatory RAVINDRA [facility] Start: 09-07-2022 End: 09-08-[address] JOSE DARNELL . Facility:[facility] Start: 09-07-2022 End: 09-07-[address] JOSE DARNELL . Facility:[facility] Start: 09-07-2022 End: 09-07-2022 ambulatory DO Immanuel Kuhn Work Phone: [facility] Work Phone: Start: 09-07-2022 End: 09-07-2022 Patient encounter procedure DO Immanuel Kuhn Work Phone: [facility] [place] Work Phone: Start: 08-07-2022 Rx Renewal Immanuel Kuhn Work Phone: [facility] [address] DO Work Phone: Start: 07-31-2022 End: 02-21-2023 Preprocedural examination done Generic Provider [facility] Start: 06-06-2022 Office outpatient vi sit 25 minutes Immanuel Kuhn Work Phone: [facility] 250 DO Work Phone: Start: 06-06-[address] Della Kim Facility: Start: 01-04-2022 End: 01-05-[address] ESTHER ANGELES Facility: Start: 01-23-2018 End: 01-25-2018 Ambulatory [facility] Facility:[facility] Patient encounter status Immanuel Kuhn Work Phone: [facility] 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 Work Phone: Start: 05-19-2024 Urine test visual color cmprsn meths Eliot L [place] DO Work Phone: Start: 04-10-2024 [facility] RENAL FUNC 2000 PNL SERPL Generic Ex ternal Data Provider Start: 03-24-2024 Esophagogastroduodenoscopic electrohydraulic lithotripsy of bezoar in stomach Kvng Marie Start: 02-21-2024 Computed tomography of abdomen and pelvis with contrast DO Immanuel Kuhn Work Phone: Start: 01-20-2024 Antibody screen IMMANUEL KUHN Comment on above: Order Comment: Specimen Type: BLOOD SPEC IMENOrdering Facility: [facility] Address: [address] [place] [address] Performed By: #### T [id number] ####CC MAIN BLOOD BANKCLIA [id number] [address] Start: 01-04-2024 Abscess of adrenal gland Kvng Baird i Start: 11-14-2023 Antibody screen IMMANUEL KUHN Comment on above: Order Comment: Specimen Type: BLOOD SPEC IMENOrdering Facility: [facility] Address: [address] [place] [address] Performed By: #### T SCR30 ####CC MAIN BLOOD BANKCLIA [id number] [address] Start: 09-12-2023 ALL POTASSIUM Generic External Data Provider Start: 09-06-2023 [facility] CORTIS P DEX [facility]PL[facility] Generic Exte rnal Data Provider Start: 12-03-2022 Bypass of stomach Kvng Marie Start: 12-18-2021 Microscopic observation [Identifier] in Cervix by Cyto stain Eliot García DO Work Phone: Neoplasm of brain (disorder) Kvng Marie Comment on above: 2019 Plantar fascia struc ture (body structure) Kvng Marie Comment on above: left and right Plan of Treatment Date Care Activity Detail Author Start: 12-18-2026 Screening for malignant neoplasm of cervix [facility] Start: 05-26-2025 End: 05-26-2025 Social Work 05/26/2025 3:00 PM EDT Social Work [facility] [address] [place] [phone] Sheila Braun, [facility] [address] [place] [address] [facility] Start: 05-20-2025 End: 05-20-2025 Patient encounter procedure 05/20/2025 2:45 PM EDT Office Visit [facility] [place] [facility] [address] [place] [address] Manasa Dunaway DPM [address] [place] [address] [facility] [place] [facility] Start: 05-19-2025 End: 05-19-2025 Social Work 05/19/2025 3:00 PM EDT Social Work [facility] [address] [place] [address] Sheila Braun, [facility] [address] [place] [address] [facility] [place] [facility] Start: 05-13-2025 End: 05-13-2025 Social Work 05/13/2025 12:00 PM EDT Social Work [facility] [address] [place] [address] Sheila Braun, [facility] [address] [place] [address] [facility] [place] [facility] Start: 04-29-2025 End: 04-29-2025 Social Work 04/29/2025 2:00 PM EDT Social Work [facility] [place] [facility] [address] [place] [address] Sheila Braun, [facility] [address] [place] [address] [facility] [place] [facility] Start: 04-20-2025 End: 04-20-2025 Patient encounter procedure [facility] [place] [facility] Start: 04-05-2025 Influenza vaccination [facility] Start: 04-01-2025 End: 04-01-2025 Social Work 04/01/2025 2:00 PM EDT Social Work [facility] [place] [address] [place] [address] Sheila Braun, [facility] [address] [place] [address] [facility] [place] [facility] Start: 03-30-2025 End: 03-30-2025 Patient encounter procedure 03/30/2025 3:45 PM EDT Office Visit [facility] [place] [facility] [address] [place] [address] Manasa Dunaway DPM [address] [place] [address] [facility] [facility] [place] [facility] Comment on above: Arrived Start: 03-25-2025 End: 03-25-2025 Social Work 03/25/2025 1:00 PM EDT Social Work [facility] [address] [place] [address] Sheila Braun, [facility] [address] [place] [address] [facility] [place] [facility] Start: 03-24-2025 End: 03-24-2025 Social Work 03/24/2025 5:00 PM EDT Social Work [facility] [address] [place] [address] Sheila Braun, [facility] [address] [place] [address] [facility] [place] [facility] Start: 03-17-2025 End: 03-17-2025 Social Work 03/17/2025 5:00 PM EDT Social Work [facility] [place] [facility] [address] [place] [address] [facility] [address] [place] [address] [facility] [place] [facility] Start: 03-10-2025 End: 03-10-2025 Social Work 03/10/2025 2:00 PM EDT Social Work [facility] [place] [facility] [address] [place] [address] [facility] [address] [place] [address] [facility] [place] [facility] Start: 03-03-2025 End: 03-03-2025 Social Work 03/03/2025 11:00 AM EDT Social Work [facility] [address] [place] [address] [facility] [address] [place] [address] [facility] Start: 03-02-2025 End: 03-02-2025 Social Work 03/02/2025 3:00 PM EDT Social Work [facility] [address] [place] [address] [facility] [address] [place] [address] [facility] Start: 02-24-2025 End: 02-24-2025 Social Work 02/24/2025 3:00 PM EDT Social Work [facility] [address] [place] [address] [facility] [address] [place] [address] [facility] Start: 02-23-2025 End: 02-23-2025 Social Work 02/23/2025 1:00 PM EDT Social Work [facility] [address] [place] [address] [facility] [address] [place] [address] [facility] Start: 02-22-2025 End: 02-22-2025 Patient encounter procedure 02/22/2025 1:45 PM EDT Office Visit [facility] [address] [place] [phone] Manasa Dunaway DPM [address] [place] [address] [facility] Start: 02-18-2025 End: 02-18-2025 Social Work 02/18/2025 11:00 AM EDT Social Work [facility] [address] [place] [phone] Sheila Braun, [facility] [address] [place] [address] [facility] Start: 02-17-2025 End: 02-17-2025 Social Work [facility] Comment on above: Arrived Start: 02-09-2025 End: 02-09-2025 Social Work [facility] Comment on above: Arrived Start: 02-08-2025 End: 02-08-2025 Patient encounter procedure 02/08/2025 11:00 AM EDT Office Visit [facility] [address] [place] [phone] Eliot García DO [address] [place] [address] Arrived [facility] 230 Comment on above: Arrived Start: 02-03-2025 End: 02-03-2025 Patient encounter procedure 02/03/2025 10:00 AM EDT Office Visit [facility] [address] [facility] [place] [phone] Nancy Howard, DRIER OPERATOR HELPER [address] [facility] [address] [place] [phone] [facility] Start: 01-27-2025 End: 01-27-2025 Social Work [facility] Start: 01-21-2025 End: 01-21-2025 Social Work [facility] Comment on above: Arrived Start: 01-20-2025 End: 01-20-2025 Patient encounter procedure [facility] Comment on above: Arrived Start: 01-15-2025 Urine screening for protein Diabetes: Urine Protein Screening [facility] Start: 01-12-2025 End: 01-12-2025 Social Work 01/12/2025 5:00 PM EDT Social Work [facility] [address] [place] [phone] Sheila Braun, [facility] [address] [place] [address] [facility] Start: 01-07-2025 End: 01-07-2025 Patient encounter procedure 01/07/2025 9:00 AM EDT Office Visit [facility] [address] [place] [phone] Eliot García DO [address] [place] [address] [facility] [address] Start: 01-05-2025 End: 01-05-2025 Social Work 01/05/2025 5:00 PM EDT Social Work [facility] [address] [place] [phone] Sheila Braun, [facility] [address] [place] [address] [facility] Start: 01-04-2025 End: 01-04-2025 Patient encounter procedure 01/04/2025 2:20 PM EDT Office Visit [facility] [address] [place] [address] Immanuel Kuhn, DO [address] [place] [address] [facility] [address] Start: 12-29-2024 End: 12-29-2024 Social Work 12/29/2024 5:00 PM EDT Social Work [facility] [address] [place] [address] [facility], [facility] [address] [place] [address] [facility] Start: 12-22-2024 End: 12-22-2024 Social Work 12/22/2024 6:00 PM EDT Social Work [facility] [address] [place] [address] [facility], [facility] [address] [place] [address] [facility] Start: 12-21-2024 End: 12-21-2024 Patient encounter procedure 12/21/2024 1:40 PM EDT Office Visit [facility] [address] [place] [address] Immanuel Kuhn, DO [address] [place] [address] [facility] [address] Start: 12-18-2024 Screening for malignant neoplasm of cervix Pap Smear [facility] Start: 12-15-2024 End: 12-15-2024 Social Work 12/15/2024 5:00 PM EDT Social Work [facility] [address] [place] [address] Sheila Braun, [facility] [address] [place] [address] [facility] Start: 12-14-2024 End: 12-14-2024 Patient encounter procedure [facility] FM [address] Start: 12-09-2024 End: 12-09-2025 25-hydroxyvitamin D3 [Mass/volume] in Serum or Plasma Vitamin D 25 hydroxy Total Lab Routine Bariatric surgery status Expected: 12/09/2024, Expires: 12/09/2025 [facility] Comment on above: Expected: 12/09/2024, Expires: Start: 12-09-2024 End: 12-09-2025 CBC W Auto Differential panel - Blood CBC and differential Lab Routine Bariatric surgery status Expected: 12/09/2024, Expires: 12/09/2025 [facility] Comment on above: Expected: 12/09/2024, Expires: Start: 12-09-2024 End: 12-09-2025 Cobalamin (Vitamin B12) [Mass/volume] in Serum or Plasma Vitamin B12 Lab Routine Bariatric surgery status Expected: 12/09/2024, Expires: 12/09/2025 [facility] Comment on above: Expected: 12/09/2024, Expires: Start: 12-09-2024 End: 12-09-2025 Comprehensive metabolic 2000 panel - Serum or Plasma Comprehensive metabolic panel Lab Routine Bariatric surgery status Expected: 12/09/2024, Expires: 12/09/2025 [facility] Comment on above: Expected: 12/09/2024, Expires: Start: 12-09-2024 End: 12-09-2025 Copper, serum Copper, serum Lab Routine Bariatric surgery status Expected: 12/09/2024, Expires: 12/09/2025 [facility] Comment on above: Expected: 12/09/2024, Expires: Start: 12-09-2024 End: 12-09-2025 Ferritin [Mass/volume] in Serum or Plasma Ferritin Lab Routine Bariatric surgery status Expected: 12/09/2024, Expires: 12/09/2025 [facility] Comment on above: Expected: 12/09/2024, Expires: Start: 12-09-2024 End: 12-09-2025 Folate [Mass/volume] in Serum or Plasma Folate Lab Routine Bariatric surgery status Expected: 12/09/2024, Expires: 12/09/2025 [facility] Comment on above: Expected: 12/09/2024, Expires: Start: 12-09-2024 End: 12-09-2025 Iron and Iron binding capacity panel - Serum or Plasma Iron and TIBC Lab Routine Bariatric surgery status Expected: 12/09/2024, Expires: 12/09/2025 [facility] Work Phone: Comment on above: Expected: 12/09/2024, Expires: Start: 12-09-2024 End: 12-09-2025 Vitamin A Vitamin A Lab Routine Bariatric surgery status Expected: 12/09/2024, Expires: 12/09/2025 [facility] Comment on above: Expected: 12/09/2024, Expires: Start: 12-09-2024 End: 12-09-2025 Vitamin B1 Vitamin B1 Lab Routine Bariatric surgery status Expected: 12/09/2024, Expires: 12/09/2025 [facility] Comment on above: Expected: 12/09/2024, Expires: Start: 12-09-2024 End: 12-09-2025 Vitamin B6 Vitamin B6 Lab Routine Bariatric surgery status Expected: 12/09/2024, Expires: 12/09/2025 [facility] Comment on above: Expected: 12/09/2024, Expires: Start: 12-09-2024 End: 12-09-2025 Vitamin E Vitamin E Lab Routine Bariatric surgery status Expected: 12/09/2024, Expires: 12/09/2025 [facility] Comment on above: Expected: 12/09/2024, Expires: Start: 12-09-2024 End: 12-09-2025 Vitamin K Vitamin K Lab Routine Bariatric surgery status Expected: 12/09/2024 (Approximate), Expires: 12/09/2025 [facility] Comment on above: Expected: 12/09/2024 (Approximate), Expi res: 12/09/2025 Start: 12-08-2024 End: 12-08-2024 Social Work 12/08/2024 5:00 PM EDT Social Work [facility] [address] [place] [address] Sheila Braun, [facility] [address] [place] [address] [facility] Start: 12-02-2024 End: 12-02-2024 Social Work [facility] Start: 11-27-2024 End: 11-27-2024 Patient encounter procedure 11/27/2024 8:40 AM EDT Office Visit [facility] [address] [place] [address] Eliot García, DO [address] [place] [address] [facility] [address] Start: 11-25-2024 End: 11-25-2024 Social Work [facility] Comment on above: Arrived Start: 11-24-2024 End: 11-24-2024 Patient encounter procedure 11/24/2024 9:20 AM EDT Office Visit [facility] [address] [place] [phone] Eliot García, DO [address] [place] [address] [facility] [address] Start: 11-20-2024 End: 11-20-2024 Patient encounter procedure 11/20/2024 9:20 AM EDT Office Visit [facility] [address] [place] [phone] Eliot García, DO [address] [place] [address] [facility] 230 Start: 11-18-2024 End: 11-18-2024 Social Work [facility] Comment on above: Arrived Start: 11-10-2024 End: 11-10-2024 Social Work 11/10/2024 3:00 PM EDT Social Work [facility] [address] [place] [address] Sheila Braun, [facility] [address] [place] [address] [facility] Start: 11-03-2024 End: 11-03-2024 Social Work 11/03/2024 1:00 PM EDT Social Work [facility] [address] [place] [address] Sheila Braun, [facility] [address] [place] [address] [facility] Start: 10-27-2024 End: 10-27-2024 Social Work 10/27/2024 5:00 PM EDT Social Work [facility] [address] [place] [address] Sheila Braun, [facility] [address] [place] [address] [facility] Start: 10-20-2024 End: 10-20-2024 Social Work 10/20/2024 6:00 PM EDT Social Work [facility] [address] [place] [address] Sheila Braun, [facility] [address] [place] [address] [facility] Start: 10-15-2024 End: 10-15-2024 Social Work 10/15/2024 10:00 AM EDT Social Work [facility] [address] [place] [address] Sheila Braun, [facility] [address] [place] [address] Arrived [facility] Comment on above: Arrived Start: 10-13-2024 End: 10-13-2024 Social Work 10/13/2024 5:00 PM EDT Social Work [facility] [address] [place] [address] [facility], [facility] [address] [place] [address] [facility] Start: 10-07-2024 End: 10-07-2024 Social Work 10/07/2024 5:00 PM EST Social Work [facility] [address] [place] [address] Sheila Braun, [facility] [address] [place] [address] [facility] Start: 09-30-2024 End: 09-30-2024 Social Work 09/30/2024 8:00 AM EST Social Work [facility] [address] [place] [address] Sheila Braun, [facility] [address] [place] [address] [facility] Start: 09-17-2024 End: 09-17-2024 Social Work 09/17/2024 12:00 PM EST Social Work [facility] [address] [place] [address] Sheila Braun, [facility] [address] [place] [address] Arrived [facility] Comment on above: Arrived Start: 09-16-2024 End: 09-16-2024 Social Work [facility] Start: 09-14-2024 End: 09-14-2024 Patient encounter procedure [facility] FM [address] Comment on above: Arrived Start: 09-08-2024 End: 09-08-2024 Patient encounter procedure [facility] OB Start: 09-03-2024 End: 09-03-2024 Social Work 09/03/2024 4:00 PM EST Social Work [facility] [address] [place] [phone] Sheila Braun, [facility] [address] [place] [address] [facility] Start: 09-02-2024 End: 09-02-2024 Social Work 09/02/2024 8:00 AM EST Social Work [facility] [address] [place] [address] Sheila Braun, [facility] [address] [place] [address] [facility] Start: 08-27-2024 End: 08-27-2024 Social Work 08/27/2024 4:00 PM EST Social Work [facility] [address] [place] [address] Sheila Braun, [facility] [address] [place] [address] [facility] Start: 08-26-2024 End: 08-26-2024 Social Work 08/26/2024 8:00 AM EST Social Work [facility] [address] [place] [address] Sheila Braun, [facility] [address] [place] [address] [facility] Start: 08-20-2024 End: 08-20-2024 Social Work 08/20/2024 5:45 PM EST Social Work [facility] [address] [place] [address] Sheila Braun, [facility] [address] [place] [address] [facility] Start: 08-13-2024 End: 08-13-2024 Social Work 08/13/2024 1:00 PM EST Social Work [facility] [address] [place] [address] Sheila Braun, [facility] [address] [place] [address] [facility] Start: 08-11-2024 End: 08-11-2024 Patient encounter procedure [facility] 230 Comment on above: Arrived Start: 07-22-2024 End: 07-22-2024 Social Work 07/22/2024 10:00 AM EST Social Work [facility] [address] [place] [address] Sheila Braun, [facility] [address] [place] [address] [facility] Start: 07-15-2024 End: 07-15-2024 Social Work [facility] Start: 07-13-2024 End: 07-13-2024 Patient encounter procedure [facility] 230 Comment on above: Arrived Start: 07-08-2024 End: 07-08-2024 Social Work [facility] Comment on above: Arrived Start: 07-01-2024 End: 07-01-2024 Social Work [facility] Start: 06-30-2024 End: 06-30-2024 Patient encounter procedure 06/30/2024 10:00 AM EST Office Visit [facility] [address] [place] [address] Immanuel Kuhn, DO [address] [place] [address] [facility] [address] Start: 06-25-2024 End: 06-25-2024 Social Work 06/25/2024 10:00 AM EST Social Work [facility] [address] [place] [address] Sheila Braun, [facility] [address] [place] [address] [facility] Start: 06-17-2024 End: 06-17-2024 Social Work [facility] Start: 06-15-2024 End: 06-15-2024 Patient encounter procedure 06/15/2024 9:20 AM EST Office Visit [facility] [address] [place] [address] Eliot García, DO [address] [place] [address] [facility] [address] Start: 06-11-2024 End: 06-11-2024 Social Work 06/11/2024 9:00 AM EST Social Work [facility] [address] [place] [address] Sheila Braun, [facility] [address] [place] [address] [facility] Start: 06-04-2024 End: 06-04-2025 Bacteria identified in Urine by Culture Urine culture Microbiology Routine Encounter for supervision of normal first in first trimester Expected: 06/04/2024 (Approximate), Expires: 06/04/2025 [facility] Comment on above: Expected: 06/04/2024 (Approximate), Expi res: 06/04/2025 Start: 06-04-2024 End: 06-04-2025 Blood type and Indirect antibody screen panel - Blood Type and screen Lab Routine Encounter for supervision of normal first in first trimester Expected: 06/04/2024 (Approximate), Expires: 06/04/2025 [facility] Comment on above: Expected: 06/04/2024 (Approximate), Expi res: 06/04/2025 Start: 06-04-2024 End: 06-04-2025 CBC W Auto Differential panel - Blood CBC and differential Lab Routine Encounter for supervision of normal first in first trimester Expected: 06/04/2024 (Approximate), Expires: 06/04/2025 [facility] Comment on above: Expected: 06/04/2024 (Approximate), Expi res: 06/04/2025 Start: 06-04-2024 End: 06-04-2025 Hepatitis B virus surface Ag [Presence] in Serum or Plasma by Immunoassay Hepatitis B surface antigen Lab Routine Encounter for supervision of normal first in first trimester Expected: 06/04/2024 (Approximate), Expires: 06/04/2025 [facility] Comment on above: Expected: 06/04/2024 (Approximate), Expi res: 06/04/2025 Start: 06-04-2024 End: 06-04-2025 Hepatitis C virus Ab [Presence] in Serum or Plasma by Immunoassay Hepatitis C antibody Lab Routine Encounter for supervision of normal first in first trimester Expected: 06/04/2024 (Approximate), Expires: 06/04/2025 [facility] Comment on above: Expected: 06/04/2024 (Approximate), Expi res: 06/04/2025 Start: 06-04-2024 End: 06-04-2025 HIV-1/HIV-2 antigen/antibody combination immunoassay HIV-1 and HIV-2 antibodies Lab Routine Encounter for supervision of normal first in first trimester Expected: 06/04/2024 (Approximate), Expires: 06/04/2025 [facility] Comment on above: Expected: 06/04/2024 (Approximate), Expi res: 06/04/2025 Start: 06-04-2024 End: 06-04-2025 [id number] PLUS Core+SCA [id number] PLUS Core+SCA Pathology and Cytology Routine care, antepartum Encounter for screening for chromosomal anomalies Expected: 06/04/2024 (Approximate), Expires: 06/04/2025 [facility] Comment on above: Expected: 06/04/2024 (Approximate), Expi res: 06/04/2025 Start: 06-04-2024 End: 06-04-2025 Reagin Ab [Presence] in Serum by RPR RPR Lab Routine Encounter for supervision of normal first in first trimester Expected: 06/04/2024 (Approximate), Expires: 06/04/2025 [facility] Comment on above: Expected: 06/04/2024 (Approximate), Expi res: 06/04/2025 Start: 06-04-2024 End: 06-04-2025 Rubella antibody, IgG Rubella antibody, IgG Lab Routine Encounter for supervision of normal first in first trimester Expected: 06/04/2024 (Approximate), Expires: 06/04/2025 [facility] Comment on above: Expected: 06/04/2024 (Approximate), Expi res: 06/04/2025 Start: 06-04-2024 End: 06-04-2025 SENDOUT TEST MISCELLANEOUS [facility] Comment on above: Expected: 06/04/2024 (Approximate), Expi res: 06/04/2025 Start: 06-04-2024 End: 06-04-2025 Urinalysis complete panel - Urine Urinalysis with microscopic Lab Routine Encounter for supervision of normal first in first trimester Expected: 06/04/2024 (Approximate), Expires: 06/04/2025 [facility] Work Phone: Comment on above: Expected: 06/04/2024 (Approximate), Expi res: 06/04/2025 Start: 06-04-2024 End: 06-04-2024 Social Work [facility] Comment on above: Arrived Start: 05-28-2024 End: 05-28-2024 Social Work [facility] Start: 05-21-2024 End: 05-21-2024 Social Work [facility] Comment on above: Arrived Start: 05-19-2024 End: 05-19-2025 HCG, quantitative, HCG, quantitative, Lab Routine Missed menses , unspecified gestational age Expected: 05/19/2024 (Approximate), Expires: 05/19/2025 [facility] Work Phone: Comment on above: Expected: 05/19/2024 (Approximate), Expi res: 05/19/2025 Start: 05-13-2024 End: 05-13-2024 Social Work 05/13/2024 2:00 PM EDT Social Work [facility] [address] [place] [address] Sheila Braun, [facility] [address] [place] [address] [facility] Start: 04-28-2024 End: 04-28-2024 Social Work 04/28/2024 3:00 PM EDT Social Work [facility] [address] [place] [address] Sheila Braun, [facility] [address] [place] [address] [facility] Start: 04-21-2024 End: 04-21-2024 Social Work [facility] Comment on above: Arrived Start: 04-14-2024 End: 04-14-2024 Social Work 04/14/2024 3:00 PM EDT Social Work [facility] [address] [place] [address] Sheila Braun, [facility] [address] [place] [address] [facility] Start: 04-10-2024 End: 04-10-2024 Patient encounter procedure 04/10/2024 11:45 AM EDT Office Visit [facility] [address] [place] [address] lab [facility] Comment on above: lab Start: 04-10-2024 End: 04-10-2024 Patient encounter procedure 04/10/2024 8:30 AM EDT Office Visit Endocrinology [address] [id number] ACTH test Endocrinology Comment on above: ACTH test Start: 04-09-2024 End: 04-09-2024 Patient encounter procedure 04/09/2024 3:40 PM EDT Office Visit [facility] [address] [place] [address] Immanuel Kuhn DO [address] [facility] [address] [place] [address] [facility] [address] Start: 04-05-2024 Covid-19 Vaccine ( season) Covid-19 Vaccine () [facility] Start: 04-05-2024 Influenza vaccination [facility] Start: 04-01-2024 End: 04-01-2024 Social Work [facility] Comment on above: Arrived Start: 03-25-2024 End: 03-25-2024 Social Work [facility] Comment on above: Arrived Start: 02-18-2024 End: 02-18-2024 ambulatory 02/18/2024 2:15 PM EDT Results Only [facility] [address] [facility] [place] [address] [facility] Start: 02-13-2024 End: 02-13-2024 ambulatory 02/13/2024 11:00 AM EDT Results Only [facility] [address] [place] [address] [facility] Start: 02-12-2024 End: 02-12-2024 Patient encounter procedure 02/12/2024 3:00 PM EDT Office Visit Endocrine Surgery [address] [id number] [place] [address] [id number] post op Endocrine Surgery Comment on above: post op Start: 02-12-2024 End: 05-13-2024 Aldosterone [Mass/volume] in Serum or Plasma ALDOSTERONE BLD Lab Routine Primary hyperaldosteronism (HCC) Expected: 02/12/2024, Expires: 05/13/2024 [facility] Work Phone: Comment on above: Expected: 02/12/2024, Expires: Start: 02-12-2024 End: 05-13-2024 Basic metabolic 2000 panel - Serum or Plasma BASIC METABOLIC PANEL Lab Routine Primary hyperaldosteronism (HCC) Expected: 02/12/2024, Expires: 05/13/2024 [facility] Comment on above: Expected: 02/12/2024, Expires: Start: 02-12-2024 End: 05-13-2024 DIRECT RENIN PLASMA DIRECT RENIN PLASMA Lab Routine Primary hyperaldosteronism (HCC) Expected: 02/12/2024, Expires: 05/13/2024 [facility] Comment on above: Expected: 02/12/2024, Expires: Start: 02-11-2024 End: 02-11-2024 ambulatory 02/11/2024 3:15 PM EDT Results Only [facility] [address] [place] [address] [facility] Start: 02-07-2024 End: 02-07-2024 ambulatory 02/07/2024 10:00 AM EDT Results Only [facility] [address] [place] [address] [facility] Start: 02-04-2024 End: 05-05-2024 Renal function 2000 panel - Serum or Plasma RENAL FUNCTION PANEL Lab Routine Chronic hypokalemia Primary hyperaldosteronism (HCC) Expected: 02/04/2024, Expires: 05/05/2024 [facility] Work Phone: Comment on above: Expected: 02/04/2024, Expires: Start: 02-04-2024 End: 02-04-2024 Patient encounter procedure 02/04/2024 11:30 AM EDT Office Visit Kidney Medicine [address] [place] [address] Manuel Alfaro MD [address] [place] [address] surgery post-op add on per provider staff message 01/01 Kidney Medicine Comment on above: surgery post-op add on per provider staf f message 01/01 Start: 01-30-2024 Hemoglobin A1c measurement Diabetes: Hemoglobin A1C [facility] Start: 01-28-2024 End: 01-28-2024 Evaluation and management of inpatient 01/28/2024 11:34 AM EDT - 01/28/2024 3:41 PM EDT Surgery Admitting [address] [place] [address] [place] [address] [place] [address] ROBOTIC LAPAROSCOPIC LEFT TRANSABDOMINAL ADRENALECTOMY Admitting Comment on above: ROBOTIC LAPAROSCOPIC LEFT TRANSABDOMINAL ADRENALECTOMY Start: 01-28-2024 End: 01-28-2024 Laparoscopy adrenalectomy prtl/compl tabdl ROBOTIC LAPAROSCOPIC LEFT TRANSABDOMINAL ADRENALECTOMY Adenoma of left adrenal gland Primary hyperaldosteronism (HCC) 01/28/2024 11:34 AM EDT [facility] Start: 01-27-2024 Evaluation and management of inpatient 01/27/2024 11:34 AM EDT Hospital Encounter Admitting [address] [place] [address] [place] [address] [place] [address] 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] Admitting Comment on above: 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] Start: 01-23-2024 End: 01-23-2024 [facility] Start: 01-20-2024 End: 01-20-2024 ambulatory [facility] Start: 01-20-2024 End: 01-20-2024 Anesthesia consultation 01/20/2024 9:00 AM EDT PAT Pre Anesthesia [address] [place] [address] pre-op Pre Anesthesia Comment on above: pre-op Start: 01-16-2024 End: 01-16-2024 ambulatory 01/16/2024 1:30 PM EDT Results Only [facility] [address] [place] [address] [facility] Start: 01-13-2024 End: 01-13-2024 ambulatory [facility] Start: 01-06-2024 End: 01-06-2024 ambulatory 01/06/2024 2:30 PM EDT Results Only [facility] [address] [place] [address] [facility] Start: 01-02-2024 End: 01-02-2024 ambulatory [facility] Start: 12-31-2023 End: 12-31-2023 ambulatory [facility] Start: 12-26-2023 End: 12-26-2023 ambulatory [facility] Start: 12-25-2023 End: 12-25-2023 Patient encounter procedure 12/25/2023 1:00 PM EDT Office Visit Endocrine Surgery [address] [place] [address] [place] [address] [phone] post op Endocrine Surgery Comment on above: post op Start: 12-23-2023 End: 12-23-2023 ambulatory [facility] Start: 12-19-2023 End: 12-19-2023 ambulatory [facility] Start: 12-16-2023 End: 12-16-2023 ambulatory [facility] Start: 12-11-2023 End: 03-11-2024 Magnesium [Mass/volume] in Serum or Plasma MAGNESIUM Lab STAT Chronic hypokalemia Expected: 12/11/2023, Expires: 03/11/2024 [facility] Comment on above: Expected: 12/11/2023, Expires: Start: 12-11-2023 End: 03-11-2024 Renal function 2000 panel - Serum or Plasma RENAL FUNCTION PANEL Lab STAT Chronic hypokalemia Expected: 12/11/2023, Expires: 03/11/2024 [facility] Work Phone: Comment on above: Expected: 12/11/2023, Expires: Start: 12-10-2023 End: 12-10-2023 Admission to same day surgery center 12/10/2023 11:05 AM EDT - 12/10/2023 2:55 PM EDT Surgery Admitting [address] [place] [address] [place] [address] [place] [address] ROBOTIC LAPAROSCOPIC LEFT TRANSABDOMINAL ADRENALECTOMY Admitting Comment on above: ROBOTIC LAPAROSCOPIC LEFT TRANSABDOMINAL ADRENALECTOMY Start: 12-10-2023 End: 12-10-2023 Laparoscopy adrenalectomy prtl/compl tabdl ROBOTIC LAPAROSCOPIC LEFT TRANSABDOMINAL ADRENALECTOMY Adenoma of left adrenal gland 12/10/2023 11:05 AM EDT [facility] Start: 12-10-2023 Subsequent hospital visit by physician 12/10/2023 11:05 AM EDT Hospital Encounter Admitting [address] [place] [address] [place] [address] [place] [address] 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] Admitting Comment on above: 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] Start: 11-14-2023 End: 02-13-2024 Basic metabolic 2000 panel - Serum or Plasma BASIC METABOLIC PANEL Lab Routine Primary hyperaldosteronism (HCC) Expected: 11/14/2023, Expires: 02/13/2024 [facility] Work Phone: Comment on above: Expected: 11/14/2023, Expires: Start: 11-12-2023 End: 02-11-2024 CONFIRM BLOOD TYPE CONFIRM BLOOD TYPE Blood Bank Routine Adenoma of left adrenal gland Expected: 11/12/2023, Expires: 02/11/2024 [facility] Work Phone: Comment on above: Expected: 11/12/2023, Expires: Start: 11-12-2023 End: 02-11-2024 TYPE AND SCREEN,30 DAY TYPE AND SCREEN,30 DAY Blood Bank Routine Adenoma of left adrenal gland Expected: 11/12/2023, Expires: 02/11/2024 [facility] Work Phone: Comment on above: Expected: 11/12/2023, Expires: Start: 10-02-2023 End: 10-02-2023 Social Work 10/02/2023 12:00 PM EST Social Work [facility] [address] [place] [id number] Sheila Braun, [facility] [address] [place] [address] [facility] Start: 09-25-2023 End: 09-25-2023 Social Work 09/25/2023 12:00 PM EST Social Work [facility] [address] [place] [address] Sheila Braun, [facility] [address] [address] [place] [address] [facility] Start: 09-18-2023 End: 09-18-2023 Social Work 09/18/2023 12:00 PM EST Social Work [facility] [address] [place] [phone] Sheila Braun, [facility] [address] [place] [address] [facility] Start: 09-11-2023 End: 09-11-2023 Social Work 09/11/2023 12:00 PM EST Social Work [facility] [address] [place] [phone] Sheila Braun, [facility] [address] [place] [address] [facility] Start: 09-10-2023 End: 09-10-2023 Patient encounter procedure 09/10/2023 8:45 AM EST Office [facility] [address] [place] [phone] Manasa Dunaway DPM [address] [place] [address] [facility] Start: 08-30-2023 Doppler ultrasonography of kidney US renal doppler [facility] Start: 08-30-2023 US Unspecified body region [facility] Start: 08-20-2023 End: 11-19-2023 Aldosterone [Mass/volume] in Serum or Plasma ALDOSTERONE BLD Lab Routine Adenoma of left adrenal gland Expected: 08/20/2023, Expires: 11/19/2023 [facility] Work Phone: Comment on above: Expected: 08/20/2023, Expires: Start: 08-20-2023 End: 11-19-2023 Comprehensive metabolic 2000 panel - Serum or Plasma COMP METABOLIC PANEL Lab Routine Adenoma of left adrenal gland Expected: 08/20/2023, Expires: 11/19/2023 [facility] Work Phone: Comment on above: Expected: 08/20/2023, Expires: Start: 08-20-2023 End: 11-19-2023 Corticotropin [Mass/volume] in Plasma ACTH BLD Lab Routine Adenoma of left adrenal gland Expected: 08/20/2023, Expires: 11/19/2023 [facility] Work Phone: Comment on above: Expected: 08/20/2023, Expires: Start: 08-20-2023 End: 11-19-2023 Cortisol [Mass/volume] in Serum or Plasma CORTISOL BLD Lab Routine Adenoma of left adrenal gland Expected: 08/20/2023, Expires: 11/19/2023 [facility] Work Phone: Comment on above: Expected: 08/20/2023, Expires: Start: 08-20-2023 End: 11-19-2023 DHEA-S BLD DHEA-S BLD Lab Routine Adenoma of left adrenal gland Expected: 08/20/2023, Expires: 11/19/2023 [facility] Work Phone: Comment on above: Expected: 08/20/2023, Expires: 4 Start: 08-20-2023 End: 11-19-2023 DIRECT RENIN PLASMA DIRECT RENIN PLASMA Lab Routine Adenoma of left adrenal gland Expected: 08/20/2023, Expires: 11/19/2023 [facility] Work Phone: Comment on above: Expected: 08/20/2023, Expires: Start: 08-20-2023 End: 11-19-2023 METANEPHRINES, FREE PLASMA METANEPHRINES, FREE PLASMA Lab Routine Adenoma of left adrenal gland Expected: 08/20/2023, Expires: 11/19/2023 [facility] Work Phone: Comment on above: Expected: 08/20/2023, Expires: 4 Start: 08-05-2023 Behavioral Health Screening Behavioral Health Screening [facility] Start: 08-05-2023 Depression Assessment Depression Assessment [facility] Start: 07-06-2023 Urine screening for protein Diabetes: Urine Protein Screening [facility] Start: 07-04-2023 Urine screening for protein Diabetes: Urine Protein Screening [facility] Start: 04-05-2023 Covid-19 Vaccine ( season) Covid-19 Vaccine () [facility] Start: 04-05-2023 Influenza vaccination Influenza Vaccine (#1) [facility] Start: 03-14-2023 FUV, Provider: Della Kim, Status: Pen, Time: 1:30 PM FUV, Provider: Della Kim, Status: Pen, Time: 1:30 PM [facility] [address] DO Work Phone: Start: 04-06-2022 Hemoglobin A1c measurement Diabetes: Hemoglobin A1C [facility] Start: 2021 Screening for malignant neoplasm of cervix HPV Testing [facility] Start: 2012 Screening for malignant neoplasm of cervix [facility] Start: 2010 Hepatitis B Vaccine (1 of 3 - 19+ 3-dose series) Hepatitis B Vaccine (1 of 3 - 19+ 3-dose series) [facility] Start: 2010 Urine microalbumin profile DTaP,Tdap,Td Vaccine (1 - Tdap) [facility] Start: 2009 Annual PCP Team Chronic Disease Visit Annual PCP Team Chronic Disease Visit [facility] Start: 2009 BP Controlled (<130/80) BP Controlled (<130/80) [facility] Start: 2009 Hepatitis C screening Hepatitis C Screening [facility] Start: 2009 HIV screening HIV Screening [facility] Start: 2001 Glaucoma screening Diabetes: Retinopathy Screening [facility] Start: 1997 Pneumococcal vaccination Pneumococcal Vaccine (1 of 2 - PCV) [facility] Start: 02-02-1992 Covid-19 Vaccine (#1) Covid-19 Vaccine (#1) [facility] Start: 1991 Hepatitis B Vaccine (1 of 3 - 3-dose series) Hepatitis B Vaccine (1 of 3 - 3-dose series) [facility] Aldosterone [Mass/ti me] in 24 hour Urine ALDOSTERONE 24 HR, URINE Lab Routine Adenoma of left adrenal gland Ordered: 09/06/2023 [facility] Work Phone: Comment on above: Ordered: 09/06/2023 CATECHOLAMINES FRACTIONATED, URINE FREE CATECHOLAMINES FRACTIONATED, URINE FREE Lab Routine Adenoma of left adrenal gland Ordered: 09/06/2023 [facility] Work Phone: Comment on above: Ordered: 09/06/2023 CONFIRM BLOOD TYPE CONFIRM BLOOD TYPE Blood Bank Routine Adenoma of left adrenal gland 11/14/2023 10:37 AM EDT [facility] Work Phone: CREAT CLEAR 24 HOUR CREAT CLEAR 24 HOUR Lab Routine Adenoma of left adrenal gland Ordered: 09/06/2023 [facility] Work Phone: Comment on above: Ordered: 09/06/2023 CREATININE BLD CREATININE BLD L ab Routine Adenoma of left adrenal gland Ordered: 09/06/2023 [facility] Work Phone: Comment on above: Ordered: 09/06/2023 CREATININE CLEARANCE , UR 24HR CREATININE CLEARANCE, UR 24HR Lab Routine Adenoma of left adrenal gland Ordered: 09/06/2023 [facility] Work Phone: Comment on above: Ordered: 09/06/2023 End: 12-05-2024 ECG COMPLETE ECG COMPLETE ECG Routine Pre-op evaluation Iron deficiency Migraine with aura and without status migrainosus, not intractable 1 Occurrences starting 12/06/2023 until 12/05/2024 [facility] Work Phone: Comment on above: 1 Occurrences starting 12/06/2023 until 12/05/2024 Guidance for venous sampling of Vein IR VENOUS SAMPLING Radiology Routine Adenoma of left adrenal gland Ordered: 09/12/2023 [facility] Work Phone: Comment on above: Ordered: 09/12/2023 hCG, quantitative hCG, quantitat alice Lab Routine Miscarriage Ordered: 06/09/2024 [facility] Work Phone: Comment on above: Ordered: 06/09/2024 End: 12-12-2024 Magnesium [Mass/volume] in Serum or Plasma MAGNESIUM Lab Routine Chronic hypokalemia 2x per week for 12 Occurrences starting 12/13/2023 until 12/12/2024 [facility] Work Phone: Comment on above: 2x per week for 12 Occurrences starting 12/13/2023 until 12/12/2024 METANEPHRINES 24H UR METANEPHRIN ES 24H UR Lab Routine Adenoma of left adrenal gland Ordered: 09/06/2023 [facility] Work Phone: Comment on above: Ordered: 09/06/2023 Patient Education Abdominal Pain, Adult E D [facility] Work Phone: Patient referral [facility] Work Phone: REFER FOR ADMIT INTERVIEW REFER FOR ADMIT INTERVIEW Procedures Routine Adenoma of left adrenal gland Ordered: 11/12/2023 [facility] Work Phone: Comment on above: Ordered: 11/12/2023 End: 12-12-2024 Renal function 2000 panel - Serum or Plasma RENAL FUNCTION PANEL Lab STAT Chronic hypokalemia 2x per week for 12 Occurrences starting 12/13/2023 until 12/12/2024 [facility] Comment on above: 2x per week for 12 Occurrences starting 12/13/2023 until 12/12/2024 TYPE AND SCREEN,30 DAY TYPE AND SCREEN,30 DAY Blood Bank Routine Adenoma of left adrenal gland 11/14/2023 10:36 AM EDT [facility] Work Phone: URINE FREE CORTISOL BY LC-MS/MS URINE FREE CORTISOL BY LC-MS/MS Lab Routine Adenoma of left adrenal gland Ordered: 09/06/2023 [facility] Work Phone: Comment on above: Ordered: 09/06/2023 [facility] c Immunizations Immunization Date Immunization Notes Care Provider Fa cility NEGATED: Highlighted row has not occurred!05-04-2024 influenza virus vaccine, unspecified formulation Kvng Marie [facility] Payers Date Payer Category Payer Self-pay [id number] 2016 Medicaid [id number] 2016 Medicaid (Managed Care) [facility] MEDICA[facility] [id number] 1991 Unknown [id number] 2.16.840.1.706216.3.579.2. 593 1991 Unknown [id number] 2.16.840.1.735494.3.579.2. 593 1991 Unknown [id number] 2.16.840.1.209105.3.579.2. 593 1991 Unknown [id number] 2.16.840.1.986803.3.579.2. 593 1991 Unknown [id number] 2.16.840.1.124546.3.579.2. 593 1991 Unknown [id number] 2.16.840.1.517780.3.579.2. 356 1991 Unknown [id number] 2.16.840.1.092449.3.579.2. 356 1991 Unknown [id number] 2.16.840.1.501291.3.579.2. 727 1991 Unknown [id number] 2.16.840.1.614100.3.579.2. 727 1991 Unknown [id number] 2.16.840.1.658702.3.579.2. 727 1991 Unknown [id number] 2.16.840.1.959385.3.579.2. 727 1991 Unknown [id number] 2.16.840.1.926989.3.579.2. 727 1991 Unknown [id number] 2.16.840.1.803238.3.579.2. 727 1991 Unknown [id number] 2.16.840.1.361145.3.579.2. 1259 1991 Unknown [id number] 2.16.840.1.601211.3.579.2. 1259 1991 Unknown [id number] 2.16.840.1.423228.3.579.2. 9 1991 Unknown [id number] 2.16.840.1.105519.3.579.2. 1259 1991 Unknown [id number] 2.16.840.1.936785.3.579.2. 1259 1991 Unknown [id number] 2.16.840.1.838592.3.579.2. 1259 1991 Unknown [id number] 2.16.840.1.123431.3.579.2. 1259 1991 Unknown [id number] 2.16.840.1.508368.3.579.2. 1259 1991 Unknown [id number] 2.16.840.1.049598.3.579.2. 1259 1991 Unknown [id number] 2.16.840.1.637864.3.579.2. 1259 1991 Unknown [id number] 2.16.840.1.040851.3.579.2. 1259 1991 Unknown [id number] 2.16.840.1.613150.3.579.2. 1259 1991 Unknown [id number] 2.16.840.1.482820.3.579.2. 1259 1991 Unknown [id number] 2.16.840.1.205378.3.579.2. 1259 1991 Unknown [id number] 2.16.840.1.974470.3.579.2. 9 1991 Unknown [id number] 2.16.840.1.333138.3.579.2. 9 1991 Unknown [id number] 2.16.840.1.038946.3.579.2. 1258 1991 Unknown [id number] 2.16.840.1.650106.3.579.2. 1258 1991 Unknown [id number] 2.16.840.1.058402.3.579.2. 1258 1991 Unknown [id number] 2.16.840.1.696704.3.579.2. 1258 1991 Unknown [id number] 2.16.840.1.508450.3.579.2. 1258 1991 Unknown [id number] 2.16.840.1.295797.3.579.2. 1258 1991 Unknown [id number] 2.16.840.1.031403.3.579.2. 1258 1991 Unknown [id number] 2.16.840.1.140697.3.579.2. 1258 1991 Unknown [id number] 2.16.840.1.311631.3.579.2. 1258 1991 Unknown [id number] 2.16.840.1.227434.3.579.2. 1258 1991 Unknown [id number] 2.16.840.1.506847.3.579.2. 1258 1991 Unknown [id number] 2.16.840.1.648260.3.579.2. 1258 1991 Unknown [id number] 2.16.840.1.697229.3.579.2. 1258 1991 Unknown [id number] 2.16.840.1.482156.3.579.2. 1259 1991 Unknown [id number] 2.16.840.1.949327.3.579.2. 1258 1991 Unknown [id number] 2.16.840.1.009135.3.579.2. 1258 1991 Unknown [id number] 2.16.840.1.846626.3.579.2. 1258 1991 Unknown [id number] 2.16.840.1.718217.3.579.2. 1258 1991 Unknown [id number] 2.16.840.1.129075.3.579.2. 1258 1991 Unknown [id number] 2.16.840.1.322369.3.579.2. 1258 1991 Unknown [id number] 2.16.840.1.161380.3.579.2. 1258 1991 Unknown [id number] 2.16.840.1.959695.3.579.2. 1258 1991 Unknown [id number] 2.16.840.1.624167.3.579.2. 1258 1991 Unknown [id number] 2.16.840.1.049492.3.579.2. 1258 1991 Unknown [id number] 2.16.840.1.718890.3.579.2. 1258 1991 Unknown [id number] 2.16.840.1.185994.3.579.2. 1258 1991 Unknown [id number] 2.16.840.1.797452.3.579.2. 1258 1991 Unknown [id number] 2.16.840.1.836238.3.579.2. 1258 1991 Unknown [id number] 2.16.840.1.308784.3.579.2. 1258 1991 Unknown [id number] 2.16.840.1.610897.3.579.2. 9 1991 Unknown [id number] 2.16.840.1.980114.3.579.2. 1258 1991 Unknown [id number] 2.16.840.1.036564.3.579.2. 1258 1991 Unknown [id number] 2.16.840.1.956753.3.579.2. 1258 1991 Unknown [id number] 2.16.840.1.572681.3.579.2. 1258 1991 Unknown [id number] 2.16.840.1.094235.3.579.2. 1258 1991 Unknown [id number] 2.16.840.1.315171.3.579.2. 1258 1991 Unknown [id number] 2.16.840.1.537293.3.579.2. 1258 1991 Unknown [id number] 2.16.840.1.912284.3.579.2. 1258 1991 Unknown [id number] 2.16.840.1.268857.3.579.2. 1258 1991 Unknown [id number] 2.16.840.1.311583.3.579.2. 1258 1991 Unknown [id number] 2.16840.1.632899.3.579.2. 1259 1959 Medicaid [id number] Unknown [facility] Unknown [facility] [id number] Unknown [id number] 2.16840.1.504412.3.579.2. 531 Unknown [id number] 2.16840.1.476891.3.579.2. 531 Social History Date Type Detail Facility Start: 01-05-2020 End: 04-20-2025 No illicit drug use No illicit drug use -[facility] [address] DO Work Phone: Comment on above: quit 2021; Start: 11-09-2019 End: 02-21-2024 Tobacco smoking status NHIS Smoker (finding) [facility] Start: 1990 Sex Assigned At Female F [facility] Start: 01-05-2020 End: 04-20-2025 Sex Assigned At [facility] Other Start: 01-05-2020 Tobacco smoking status NHIS Never smoked tobacco [facility] Start: 01-05-2020 End: 08-11-2024 Tobacco use and exposure Smokeless tobacco non-user [facility] Start: 01-05-2020 End: 02-12-2024 Alcohol intake Current drinker of alcohol (finding) [facility] National Score (1-100), lower number is lower risk [address] [facility] Start: 1990 Sex Assigned At Not on file C [facility] Start: 08-27-2023 Gender identity Identifies as female gender (finding) [facility] Start: 02-21-2023 End: 01-16-2024 Tobacco smoking status NHIS Ex-smoker [facility] End: 08-05-2022 History of tobacco use Cigarette Smoker [facility] Start: 08-15-2023 End: 04-20-2025 Alcohol intake Ex-drinker (finding) [facility] Start: 12-23-2022 Alcohol Comment 1-2 cans of soda silvestre ly [facility] Start: 09-10-2023 Alcohol Comment caffeine intak e: 1-2 cans of soda [facility] Start: 12-06-2023 End: 08-11-2024 Tobacco smoking status NHIS Smokes tobacco daily [facility] Start: 03-19-2024 End: 09-11-2024 Tobacco smoking status Heavy tobacco smoker (finding) [facility] Start: 06-04-2024 Tobacco Comment Cessation discussed [facility] Start: 06-04-2024 Alcohol Comment caffeine intak e: 5 cans soda/daily [facility] Start: 04-25-2024 [facility] History of tobacco use Passive smoker [facility] Functional Status Date Assessment Result Facility 04-20-2025 Patient Health Quest ionnaire 2 item (PHQ-2) [Reported] [facility] 04-20-2025 PHQ-9 quick depressi on assessment panel [Reported.PHQ] [facility] 01-27-2025 Patient Health Quest ionnaire 2 item (PHQ-2) [Reported] [facility] 01-27-2025 PHQ-9 quick depressi on assessment panel [Reported.PHQ] [facility] 12-09-2024 Patient Health Quest ionnaire 2 item (PHQ-2) [Reported] [facility] 09-11-2024 Functional Status N/A [facility] 05-04-2024 Functional Status N/A [facility] 03-19-2024 Functional Status N/A [facility] Clinical Notes 09-10-2022 to 04-20-2025 Татьяна Carter, ANDRIY - 04/20/2025 3:00 PM EDTCjay Dunaway DPM - 04/19/2025 3:00 PM EDNat Dunaway, REJI - 03/30/2025 3:45 PM EDTCjay Dunaway, REJI - 02/22/2025 1:45 PM EDT Note Date & Type Note Facility 04-20-2025 History of Present illness Narrative Images from the original note were not included. Subjective Nurse Notes: Heidi Joy is a 34 y.o. year old [...] Vitals BP 130/82 Pulse 65 Temp 97.6 F Ht 5' 6 Wt 179 lb SpO2 100% BMI 28.89 kg/m OB Status Unknown Smoking Status Every Day BSA 1.94 m Physical Exam Constitutional: General: She is not [...] mouth in the morning. Take with meals. Gastroesophageal reflux disease with esophagitis [...] the patient today documented in this encounter [facility] 04-19-2025 History of Present illness Narrative Images from [...] the this type of lesion and ways to reduce recurrence. We did also discuss a more aggressive acid treatment if he starts to notice increased recurrence over time. 3. Discussed continued use of proper foot gear to avoid excess pressure over the callous site. 4. RTC: as scheduled or as needed. Metatarsal Deformity: 1. Discussed with patient the findings of the x-rays, examination and further options for treatment including conservative and surgical treatment of the deformities. 2. Specifically discussed with the patient conservative treatment including shoe gear modification, stretching of the shoes, corrective splinting which may alleviate some tenderness but does not provide long-term correction of the deformity, padding with tube foam versus toe spacers. 3. Briefly discussed with the patient the surgical options for correction of the deformity including Tailor's bunionectomy and the associated surgical procedure, complications and recovery time. documented in this encounter [facility] 03-30-2025 History of Present illness Narrative Images from [...] in left foot Hammertoes right Treatment Note: Callous/Porokeratosis: 1. Discussed with the patient the etiology of this type of lesion and options for treatment. Hyperkeratosis overlying the lesion was debrided. 2. Discussed treatment with Jerry. Patient would like to proceed. Canthacur was applied to the lesion on the bilateral foot under occulsion. Patient was instructed on after care. 3. Dispensed aperture pads and instructed patient on placement in their shoes. 4. RTC: 3 weeks. Metatarsal Deformity: 1. Discussed with patient the findings of the x-rays, examination and further options for treatment including conservative and surgical treatment of the deformities. 2. Specifically discussed with the patient conservative treatment including shoe gear modification, stretching of the shoes, corrective splinting which may alleviate some tenderness but does not provide long-term correction of the deformity, padding with tube foam versus toe spacers. 3. Briefly discussed with the patient the surgical options for correction of the deformity including Tailor's bunionectomy and the associated surgical procedure, complications and recovery time. documented in this encounter [facility] 02-22-2025 History of Present illness Narrative Images from [...] of pain with ROM DEFORMITIES: hammertoes 2-4 right PAIN ELICITED WITH PALPATION OF: overlying the callous site on the left foot MUSCLE STRENGTH: 5/5 for all pedal groups tested Assessments: ICD L84 - Corns and callosities: ICD M79.671 - Pain in right foot: ICD M79.672 - Pain in left foot: Hammertoes right Treatment Note: ICD L84 - Corns and callosities: 1. Hyperkeratosis as above noted was debrided. 2. Dispensed aperture pads and instructed patient on use and how to apply to the affected areas of their feet. Advised patient that extra pads are available for purchase. 3. Discussed continued use of proper foot gear to avoid excess pressure over the callous site. 4. RTC: as scheduled or as needed. 1. Discussed with the patient custom made orthotic devices. Patient elects to proceed with scanning today with the STJ in neutral. Scan impressions were taken of each foot with proper positioning needed for 3D rendering. 2. The orthotics are custom molded devices used for biomechanical control of the foot and lower extremity by controlling any biomechanical fault. The patient will have a greater opportunity to return to normal function and to offload pressure points of the patient's foot to relieve the patient's symptomatology. Functional orthotic devices will diminish the likelihood of future surgical intervention. 3. Orthotic order form completed for [facility]: Premier Device, Intrinsic/Extrinsic Posting, Poron padding to toes with offloading to the 5th MPJ, neoprene top cover. 4. Patient will be called when the orthotics arrive to schedule an appointment for pick-up. documented in this encounter [facility] 02-08-2025 History of Present illness Narrative Images from the original note were not included. [facility] [place] SUBJECTIVE: HPI: Heidi Joy is a 34 y.o. female who presents with chief complaint of No chief complaint on file. Pt presents to have paperwork filled out so she can return to work. Pt is requesting a refill of her Ambien. I have reviewed and reconciled the history and medication list with the patient today. History of Present Illness The patient presents for a follow-up visit. He reports that his symptoms began on 01/25/2025, which led to him missing work on 01/25/2025. He is currently undergoing treatment for these symptoms. He has requested a fnpadd-ye-daye date of 02/15/2025, as he anticipates needing to schedule an infusion this week. He also mentions that he has not yet started the medication prescribed by another provider, as he was advised to wait until his appointment with her on 02/09/2025. Depression: At risk (01/27/2025) PHQ-2 PHQ-2 Score: 5 reports that she has been smoking cigarettes. She has been exposed to tobacco smoke. She has never used smokeless tobacco. She reports that she does not currently use alcohol. She reports current drug use. Drug: Marijuana. OBJECTIVE: 07/13/2024 9:36 AM 08/11/2024 9:48 AM 09/14/2024 9:11 AM 12/09/2024 5:16 PM 12/21/2024 2:02 PM 01/27/2025 8:54 AM 02/08/2025 10:55 AM Vitals BMI 29.86 kg/m2 30.34 kg/m2 29.7 kg/m2 29.86 kg/m2 30.02 kg/m2 29.25 kg/m2 28.73 kg/m2 BSA (m2) 1.98 m2 1.99 m2 1.97 m2 1.98 m2 1.98 m2 1.96 m2 1.94 m2 Systolic 114 122 122 122 122 122 124 Diastolic 80 80 80 80 80 70 70 Heart Rate 62 74 78 82 76 70 74 SpO2 100 % 100 % 99 % 100 % Temp 97.3 F 97 F 98.4 F 98.4 F 98 F 96.1 F 97.4 F Height (in) 5' 6 5' 6 5' 6 5' 6 5' 6 5' 6 5' 6 Weight (lb) 185 188 184 185 186 181.2 178 Visit Report Report Report Report Report Report Report Report Physical Exam Constitutional: General: She is not in acute distress. Appearance: She is not ill-appearing. HENT: Head: Normocephalic. Cardiovascular: Rate and Rhythm: Normal rate and regular rhythm. Heart sounds: No murmur heard. Pulmonary: Effort: Pulmonary effort is normal. Breath sounds: Normal breath sounds. No wheezing. Abdominal: General: Abdomen is flat. There is no distension. Tenderness: There is no abdominal tenderness. Musculoskeletal: General: No deformity. Normal range of motion. Cervical back: Normal range of motion. Skin: General: Skin is warm and dry. Neurological: General: No focal deficit present. Mental Status: She is alert and oriented to person, place, and time. Psychiatric: Mood and Affect: Mood normal. Behavior: Behavior normal. Thought Content: Thought content normal. Judgment: Judgment normal. Physical Exam Results Recent Results (from the past 4 weeks) Vitamin K Collection Time: 01/15/25 3:38 PM Result Value Ref Range VITAMIN K1 0.15 0.10 - 2.20 ng/mL Iron and TIBC Collection Time: 01/15/25 3:38 PM Result Value Ref Range Iron Bind.Cap.(TIBC) 411 250 - 450 ug/dL UIBC 390 131 - 425 ug/dL Iron 21 (L) 27 - 159 ug/dL Iron Saturation 5 (LL) 15 - 55 % CBC and differential Collection Time: 01/15/25 3:38 PM Result Value Ref Range WBC 8.7 3.4 - 10.8 x10E3/uL RBC 4.35 3.77 - 5.28 x10E6/uL Hgb 11.2 11.1 - 15.9 g/dL Hct 37.3 34.0 - 46.6 % MCV 86 79 - 97 fL MCH 25.7 (L) 26.6 - 33.0 pg MCHC 30.0 (L) 31.5 - 35.7 g/dL RDW 13.5 11.7 - 15.4 % Platelets 228 150 - 450 x10E3/uL Neutrophils 61 Not Estab. % Lymphs 30 Not Estab. % Monocytes 6 Not Estab. % Eos 2 Not Estab. % Basos 1 Not Estab. % Neutrophils Abs 5.3 1.4 - 7.0 x10E3/uL Lymphs Abs 2.6 0.7 - 3.1 x10E3/uL MonocytesAbs 0.6 0.1 - 0.9 x10E3/uL Eos Abs 0.2 0.0 - 0.4 x10E3/uL Baso Abs 0.1 0.0 - 0.2 x10E3/uL Immature Granulocytes 0 Not Estab. % Immature Grans Abs 0.0 0.0 - 0.1 x10E3/uL Ferritin Collection Time: 01/15/25 3:38 PM Result Value Ref Range Ferritin 14 (L) 15 - 150 ng/mL ASSESSMENT AND PLAN: Assessment/Plan Diagnoses and all orders for this visit: Iron deficiency anemia, unspecified iron deficiency anemia type Primary insomnia - zolpidem (Ambien) 10 MG tablet; Take 1 tablet (10 mg) by mouth as needed at bedtime for sleep Bariatric surgery status Bipolar affective disorder, currently depressed, mild (HCC) Assessment & Plan 1. Follow-up visit: - Cleared to resume work on 02/15/2025. - Anticipated administration of iron infusions in the near future. 2. Insomnia: - Prescription for Ambien to be sent to [facility] in [place]. Follow-up - Follow-up as needed. Eliot García DO Patient Active Problem List Diagnosis Generalized anxiety disorder Bipolar affective disorder, currently depressed, mild (HCC) Adrenal mass (HCC) Anxiety Cannabis abuse Depressive disorder Diabetes mellitus (HCC) Dysmenorrhea First degree AV block Gastroesophageal reflux disease Generalized headache Iron deficiency Irregular menstruation Irritable bowel syndrome with diarrhea Major depressive disorder, single episode, moderate (HCC) Excessive and frequent menstruation Microcytic anemia Migraine with aura and without status migrainosus, not intractable Mixed bipolar affective disorder, moderate (HCC) Morbid obesity (CMS-HCC) Neuropathy Patellofemoral pain syndrome of left knee PCOS (polycystic ovarian syndrome) Hidradenitis suppurativa of right axilla Plantar fasciitis Primary hypertension Primary osteoarthritis of left knee Insomnia related to another mental disorder Psychophysiological insomnia Seasonal allergic rhinitis Sinusitis Diabetes (HCC) Adenoma of left adrenal gland Diarrhea Hypokalemia Nausea Primary hyperaldosteronism (HCC) History of bariatric surgery Acute hypokalemia Oligodendroglioma of brain (HCC) Hyperaldosteronism (HCC) Abdominal pain History of gastric bypass History of hypokalemia Nicotine use disorder Nicotine dependence RUQ pain Secondary adrenal insufficiency (HCC) Tobacco use Past Medical History: Diagnosis Date 1st degree AV block Abnormal ECG 07/31/2022 Bipolar 1 disorder (HCC) Depression Diabetes (HCC) Patient reports no longer diabetic Fracture of left foot Glioma (HCC) 07/21/2018 Glioma of brain (HCC) Hospitalization or health care facility admission within last 6 months 09/2022 [facility] Hypokalemia (2.9, 2.4) Sent by [employer] for K+ infusion. Hx of being hospitalized 08/19/2018 [facility] - Discharged 08/22/2018 Brain tumor Hx of being hospitalized 06/2018 [facility] admit 06/10/2018 discharged HTN , Brain tumor Hypertension Kidney stones Malignant brain tumor (HCC) 08/2018 malignant brain tumor right frontal area, Dr. Lema Malignant neoplasm of brain (HCC) 06/17/2018 Menorrhagia with irregular cycle 02/21/2023 Oligodendroglioma (HCC) 2018 Otalgia of right ear PCOS (polycystic ovarian syndrome) Plantar fasciitis of left foot documented in this encounter [facility] 01-27-2025 History of Present illness Narrative Images from the original note were not included. [facility] JOSH Pritchett SUBJECTIVE: HPI: Heidi Joy is a 34 y.o. female who presents with chief complaint of Follow-up Pt is in office today follow up to her anxiety. Pt would like to discuss her work note, she would like it extended I have reviewed and reconciled the history and medication list with the patient today. History of Present Illness The patient presents for evaluation of depression. She has discontinued the use of Latuda, expressing a desire to manage her depression without medication. She reports that her previous medications were ineffective, leading to her decision to stop their use and explore alternative treatments. Her primary concerns are mood swings, irritability, and severe depression. She does not endorse suicidal ideation but admits to persistent feelings of sadness and anger. She describes her mental state as being in a similar place as it was a year ago. She is uncertain if she has previously taken Abilify. She has not been on any antidepressants for an extended period due to a diagnosis of bipolar disorder, which she believes exacerbates her condition. She does not experience manic episodes. She is currently not on any psychiatric medications, except for gabapentin and a stomach medication. She has an appointment today for an assessment at [facility]. She continues to see her therapist, Sheila, whom she finds helpful. Her sleep pattern has improved since resuming Ambien, although she reports excessive sleep due to physical fatigue. She is seeking an extension of her work note until Saturday. MEDICATIONS - Current: Gabapentin - Current: Ambien - Discontinued: Latuda - Discontinued: Lamictal Depression: At risk (01/27/2025) PHQ-2 PHQ-2 Score: 5 reports that she has been smoking cigarettes. She has been exposed to tobacco smoke. She has never used smokeless tobacco. She reports that she does not currently use alcohol. She reports current drug use. Drug: Marijuana. OBJECTIVE: 07/13/2024 9:36 AM 08/11/2024 9:48 AM 09/14/2024 9:11 AM 12/09/2024 5:16 PM 12/21/2024 2:02 PM 01/27/2025 8:54 AM 02/08/2025 10:55 AM Vitals BMI 29.86 kg/m2 30.34 kg/m2 29.7 kg/m2 29.86 kg/m2 30.02 kg/m2 29.25 kg/m2 28.73 kg/m2 BSA (m2) 1.98 m2 1.99 m2 1.97 m2 1.98 m2 1.98 m2 1.96 m2 1.94 m2 Systolic 114 122 122 122 122 122 124 Diastolic 80 80 80 80 80 70 70 Heart Rate 62 74 78 82 76 70 74 SpO2 100 % 100 % 99 % 100 % Temp 97.3 F 97 F 98.4 F 98.4 F 98 F 96.1 F 97.4 F Height (in) 5' 6 5' 6 5' 6 5' 6 5' 6 5' 6 5' 6 Weight (lb) 185 188 184 185 186 181.2 178 Visit Report Report Report Report Report Report [...] Content: Thought content normal. Judgment: Judgment normal. Physical Exam Results No results found for this or any previous visit (from the past 4 weeks). ASSESSMENT AND PLAN: Assessment/Plan Diagnoses and all orders for this visit: Bipolar affective disorder, currently depressed, mild (HCC) - mirtazapine (Remeron) 15 MG tablet; Take 1 tablet (15 mg) by mouth at bedtime - ARIPiprazole (Abilify) 5 MG tablet; Take 1 tablet (5 mg) by mouth Daily Iron deficiency anemia, unspecified iron deficiency anemia type Primary insomnia Bariatric surgery status Assessment & Plan 1. Depression: Chronic. - Start mirtazapine at bedtime for depression and sleep aid. - Start Abilify 5 mg daily as a mood stabilizer to prevent manic episodes. - Continue therapy sessions with Sheila. - Follow up with psychiatrist at [facility]. - Notify clinic immediately if symptoms worsen or no improvement is observed. 2. Iron deficiency. - Contact doctor regarding potential iron infusions. - Prior authorization for iron infusions is likely required. - Encourage patience during the authorization process. Follow-up - Follow up in 2 weeks. Eliot García DO Patient Active Problem List Diagnosis Generalized anxiety disorder Bipolar affective disorder, currently depressed, mild (HCC) Adrenal mass (HCC) Anxiety Cannabis abuse Depressive disorder Diabetes mellitus (HCC) Dysmenorrhea First degree AV block Gastroesophageal reflux disease Generalized headache Iron deficiency Irregular menstruation Irritable bowel syndrome with diarrhea Major depressive disorder, single episode, moderate (HCC) Excessive and frequent menstruation Microcytic anemia Migraine with aura and without status migrainosus, not intractable Mixed bipolar affective disorder, moderate (HCC) Morbid obesity (CMS-HCC) Neuropathy Patellofemoral pain syndrome of left knee PCOS (polycystic ovarian syndrome) Hidradenitis suppurativa of right axilla Plantar fasciitis Primary hypertension Primary osteoarthritis of left knee Insomnia related to another mental disorder Psychophysiological insomnia Seasonal allergic rhinitis Sinusitis Diabetes (HCC) Adenoma of left adrenal gland Diarrhea Hypokalemia Nausea Primary hyperaldosteronism (HCC) History of bariatric surgery Acute hypokalemia Oligodendroglioma of brain (HCC) Hyperaldosteronism (HCC) Abdominal pain History of gastric bypass History of hypokalemia Nicotine use disorder Nicotine dependence RUQ pain Secondary adrenal insufficiency (HCC) Tobacco use Past Medical History: Diagnosis Date 1st degree AV block Abnormal ECG 07/31/2022 Bipolar 1 disorder (HCC) Depression Diabetes (HCC) Patient reports no longer diabetic Fracture of left foot Glioma (HCC) 07/21/2018 Glioma of brain (HCC) Hospitalization or health care facility admission within last 6 months 09/2022 [facility] Hypokalemia (2.9, 2.4) Sent by [employer] for K+ infusion. Hx of being hospitalized 08/19/2018 [facility] - Discharged 08/22/2018 Brain tumor Hx of being hospitalized 06/2018 [facility] admit 06/10/2018 discharged HTN , Brain tumor Hypertension Kidney stones Malignant brain tumor (HCC) 08/2018 malignant brain tumor right frontal area, Dr. Lema Malignant neoplasm of brain (HCC) 06/17/2018 Menorrhagia with irregular cycle 02/21/2023 Oligodendroglioma (HCC) 2017 Otalgia of right ear PCOS (polycystic ovarian syndrome) Plantar fasciitis of left foot documented in this encounter [facility] 01-20-2025 History of Present illness Narrative Images from [...] of pain with ROM DEFORMITIES: hammertoes 2-4 right PAIN ELICITED WITH PALPATION OF: overlying the callous site on the left foot MUSCLE STRENGTH: 5/5 for all pedal groups tested Assessments: ICD L84 - Corns and callosities: ICD M79.671 - Pain in right foot: ICD M79.672 - Pain in left foot: Hammertoes right Treatment Note: ICD L84 - Corns and callosities: 1. Hyperkeratosis as above noted was debrided. 2. Dispensed aperture pads and instructed patient on use and how to apply to the affected areas of their feet. Advised patient that extra pads are available for purchase. 3. Discussed continued use of proper foot gear to avoid excess pressure over the callous site. 4. RTC: as scheduled or as needed. Hammertoe: 1. Discussed with patient the findings of the examination and further options for treatment including conservative and surgical treatment of the deformities. 2. Specifically discussed with the patient conservative treatment including shoe gear modification, stretching of the shoes, corrective splinting which may alleviate some tenderness but does not provide long-term correction of the deformity and padding with silpos vs. use of crest pads for splinting. 3. Briefly discussed with the patient the surgical options for correction of the deformity including hammertoe arthrodesis vs, arthroplasty and addressing the deformity at the MPJ if applicable and the associated surgical procedure, complications and recovery time. Discussed with the patient custom-made foot orthoses and how these can help to improve her pain and symptoms. We will check benefits with their insurance and patient will be contacted in regards to coverage. Patient can make an appointment if they would like to proceed with casting and ordering. documented in this encounter [facility] 01-06-2025 Telephone encounter Note Refill on Ambien to [facility] [place] [facility] 01-06-2025 Miscellaneous Notes Refill on Ambien to [facility] [place] documented in this encounter [facility] 12-21-2024 History of Present illness Narrative Images from the original note were not included. Heidi Joy is a 34 y.o. female presents with chief complaint of No chief complaint on file. HPI: HPI Had lab drawn last week. Increasing anxiety History of Present Illness The patient presents for evaluation of anxiety, depression, and neuropathy. She reports experiencing severe anxiety, which manifests as excessive sweating, feelings of heat, and a desire to cry and escape from the situation. These episodes are not characterized by panic attacks but rather a persistent state of distress throughout the day. She has been dealing with these symptoms her entire life and expresses frustration with their chronic nature. She has been prescribed Ambien for sleep management but is hesitant to use it long-term. She was previously on Seroquel 350 mg for sleep but discontinued it due to feeling unwell the following day. She has been prescribed Latuda but has not yet started the medication. She has previously tried older medications without significant benefit. Her depression is intermittent and less severe than in the past. She has made efforts to manage her situational stressors, including securing a new job and ending a problematic relationship. She acknowledges that her home environment remains a source of stress, which she plans to address by moving out. She describes periods of intense emotional distress, during which she feels overwhelmed and experiences suicidal ideation, although she does not have any intent to act on these thoughts. These episodes typically last a few days, after which she is able to recover. She has been working with Juan Luis to manage these symptoms and is actively identifying and addressing her triggers. She is uncertain about a potential diagnosis of bipolar disorder and questions whether her symptoms might be due to severe anxiety and depression. She also considers the possibility of borderline personality disorder. She believes her irritability and anger may be familial traits that she needs to manage independently. She has been experiencing recurrent issues with her feet, described as a static sensation and numbness in her toes extending into her legs. She has resumed taking gabapentin 400 mg twice daily, once in the morning and once around dinner, which she finds beneficial. If she forgets a dose, she takes both doses at dinner, which aids her sleep. She is interested in checking her blood sugar levels due to the reemergence of her neuropathy symptoms. She has noticed that her ulcer flares up when she is really stressed out. Other than that, she has been having normal bowel movements. She saw her art gallery internship for the ulcer, who said it looked good with a lot of scar tissue building up. He advised her to get back on omeprazole if anything flared up. SUBJECTIVE: MEDICATIONS: ALLERGIES Current Outpatient Medications Medication Instructions ammonium lactate (Amlactin) 12 % cream Topical, As needed ARIPiprazole (ABILIFY) 5 mg, Oral, Daily clonazePAM (KLONOPIN) 0.5 mg, Oral, 3 times daily PRN famotidine (PEPCID) 40 mg, Oral, Daily ferrous gluconate (FERGON) 324 mg, Oral, Daily with breakfast gabapentin (NEURONTIN) 400 mg, Oral, 2 times daily mirtazapine (REMERON) 15 mg, Oral, Nightly omeprazole (PRILOSEC) 40 mg, Oral, 2 times daily before meals, Do not crush or chew. zolpidem (AMBIEN) 10 mg, Oral, Nightly PRN No Known Allergies Depression: At risk (01/27/2025) PHQ-2 PHQ-2 Score: 5 REVIEW OF SYMPTOMS: Review of Systems OBJECTIVE: BP 122/80 Pulse 76 Temp 98 F Ht 5' 6 Wt 186 lb BMI 30.02 kg/m No results found for this or any previous visit (from the past 6 weeks). Results GENERAL EXAM: Physical Exam Physical Exam Respiratory: Clear to auscultation, no wheezing, rales or rhonchi ASSESSMENT AND PLAN: Assessment/Plan Diagnoses and all orders for this visit: Neuropathy Major depressive disorder, single episode, moderate (HCC) Anxiety Assessment & Plan 1. Anxiety. - Reports severe anxiety with symptoms including sweating, feeling hot, wanting to cry, and feeling the need to leave situations. The anxiety is persistent and affects daily life. - Physical exam findings and test results were not discussed. - Latuda 20 mg (half of a 40 mg tablet) will be started to help manage anxiety. Potential side effects and benefits of Latuda were discussed. - Ambien 10 mg at bedtime will be continued for sleep as needed. 2. Depression. - Depression fluctuates and is less severe than it used to be but still contributes to overall mental health struggles. - Physical exam findings and test results were not discussed. - Plan to stabilize mood with Latuda and then consider transitioning to Cymbalta for long-term management. Continued therapy with Juan Luis to manage symptoms. - No new medications or therapies prescribed for depression at this time. 3. Neuropathy. - Experiencing neuropathy symptoms, including a static feeling and numbness in feet and toes, sometimes extending into legs. - Physical exam findings and test results were not discussed. - Gabapentin 400 mg twice a day, once in the morning and once around dinner, will be restarted to manage symptoms. Advised that taking both doses at dinner might cause drowsiness. - No new referrals or additional management discussed. 4. Ulcer. - Ulcer flares up when stressed but has been having normal bowel movements otherwise. - Dock Manager noted ulcer looked good with a lot of scar tissue building up. - Advised to get back on omeprazole if anything flared up. - No new medications or therapies prescribed for ulcer management at this time. Follow-up The patient will follow up in 2 weeks to discuss the lab work and new medication changes. No follow-ups on file. I have reviewed and reconciled the history and medication list with the patient today. documented in this encounter [facility] 12-09-2024 History of Present illness Narrative Images from the original note were not included. [facility] JOSH Pritchett SUBJECTIVE: HPI: Heidi Joy is a 34 y.o. female who presents with chief complaint of No chief complaint on file. Pt presents to discuss her anxiety, depression, and GI issues. I have reviewed and reconciled the history and medication list with the patient today. History of Present Illness The patient presents for evaluation of anxiety, depression, neuropathy, and irritable bowel syndrome. She has been experiencing symptoms of anxiety and depression, which have been managed with medication for the past 3 months. Her mood stabilizers were discontinued a few months ago, and she is currently exploring situational strategies to improve her well-being. She reports a return of depressive symptoms and poor sleep quality. She is seeking a treatment plan to address these issues before they escalate. She has a history of taking Latuda and Lamictal but is uncertain about their efficacy. She has previously taken Seroquel for sleep disturbances and found Ambien to be effective for this purpose. She is unsure if she has ever taken Abilify. She expresses a desire to maintain a regular sleep schedule and function effectively during the day. She has been attending weekly therapy sessions with Sheila, which she finds beneficial. She has been off Ambien for some time now. She reports experiencing restless leg cramps and tingling sensations in her legs, which she attributes to her diabetes and neuropathy. These symptoms have been exacerbated by her return to work, resulting in significant discomfort upon returning home. She also reports gastrointestinal issues, including alternating diarrhea and constipation, which she believes are side effects of her ulcer medication. She experiences constant stomach pain, which intensifies during periods of stress. Over the past 2 weeks, she has been unable to control her diarrhea, leading to a weight loss of 10 pounds due to decreased food intake. She has attempted to manage these symptoms with [id number] medications, but these have only worsened her condition. PAST SURGICAL HISTORY: Gastric bypass SOCIAL HISTORY She admits to smoking. Depression: At risk (12/09/2024) PHQ-2 PHQ-2 Score: 4 reports that she has been smoking cigarettes. She has been exposed to tobacco smoke. She has never used smokeless tobacco. She reports that she does not currently use alcohol. She reports current drug use. Drug: Marijuana. OBJECTIVE: 02/26/2024 1:30 PM 05/07/2024 8:34 AM 06/17/2024 8:53 AM 07/13/2024 9:36 AM 08/11/2024 9:48 AM 09/14/2024 9:11 AM 12/09/2024 5:16 PM Vitals BMI 28.89 kg/m2 28.08 kg/m2 28.89 kg/m2 29.86 kg/m2 30.34 kg/m2 29.7 kg/m2 29.86 kg/m2 BSA (m2) 1.94 m2 1.92 m2 1.94 m2 1.98 m2 1.99 m2 1.97 m2 1.98 m2 Systolic 126 120 120 114 122 122 122 Diastolic 76 68 72 80 80 80 80 Heart Rate 81 68 81 62 74 78 82 SpO2 98 % 100 % 100 % 100 % 100 % Temp 97.7 F 97.9 F 97.7 F 97.3 F 97 F 98.4 F 98.4 F Height (in) 5' 6 5' 6 5' 6 5' 6 5' 6 5' 6 5' 6 Weight (lb) 179 174 179 185 188 184 185 Visit Report Report Report Report Report Report Report Report Physical Exam Constitutional: General: She is not in acute distress. Appearance: She is not ill-appearing. HENT: Head: Normocephalic. Cardiovascular: Rate and Rhythm: Normal rate and regular rhythm. Heart sounds: No murmur heard. Pulmonary: Effort: Pulmonary effort is normal. Breath sounds: Normal breath sounds. No wheezing. Abdominal: General: Abdomen is flat. There is no distension. Tenderness: There is no abdominal tenderness. Musculoskeletal: General: No deformity. Normal range of motion. Cervical back: Normal range of motion. Skin: General: Skin is warm and dry. Neurological: General: No focal deficit present. Mental Status: She is alert and oriented to person, place, and time. Psychiatric: Mood and Affect: Mood normal. Behavior: Behavior normal. Thought Content: Thought content normal. Judgment: Judgment normal. Physical Exam Results No results found for this or any previous visit (from the past 4 weeks). ASSESSMENT AND PLAN: Assessment/Plan Diagnoses and all orders for this visit: Bipolar affective disorder, currently depressed, mild (CMS/HCC) - lurasidone (Latuda) 40 MG tablet; Take 1 tablet (40 mg) by mouth in the evening. Take with meals Primary insomnia - zolpidem (Ambien) 10 MG tablet; Take 1 tablet (10 mg) by mouth as needed at bedtime for sleep Bariatric surgery status - Iron and TIBC; Future - CBC and differential; Future - Comprehensive metabolic panel; Future - Vitamin B1; Future - Vitamin B12; Future - Vitamin B6; Future - Vitamin D 25 hydroxy Total; Future - Ferritin; Future - Folate; Future - Vitamin A; Future - Vitamin E; Future - Copper, serum; Future - Vitamin K; Future Major depressive disorder, single episode, moderate (HCC) (CMS/HCC) LUISITO (generalized anxiety disorder) (CMS/HCC) Neuropathy Assessment & Plan 1. Anxiety and depression: Chronic. - Experiencing increased anxiety and depression since discontinuing medications. - Will restart Ambien at bedtime and Latuda at a lower dose than previously prescribed. - Discussed potential future use of Cymbalta for depression and anxiety, to be considered after stabilizing mood with Latuda. - Continues to see a therapist weekly, though it has not been significantly helpful. 2. Neuropathy. - Reports restless leg cramps and tingling, likely due to diabetes history and increased physical activity. - Comprehensive blood work panel will be ordered to assess vitamin levels, including B vitamins, vitamin D, and iron. - Discussed the possibility of vitamin deficiencies contributing to symptoms. - Blood work to be drawn at [facility], fasting if possible. 3. Irritable bowel syndrome. - Experiencing alternating diarrhea and constipation, with significant weight loss due to severe diarrhea over the past two weeks. - Blood work will be conducted to evaluate overall health status, including checking for potential deficiencies or abnormalities. - Symptoms have been exacerbated by stress and smoking. - [id number] medications have been ineffective and exacerbated symptoms, leading to discontinuation. Follow-up - Blood work to be drawn at [facility], fasting if possible. Eliot García DO Patient Active Problem List Diagnosis Generalized anxiety [...] disorder Psychophysiological insomnia Seasonal allergic rhinitis Sinusitis Diabetes (CMS/HCC) Adenoma of left adrenal gland Diarrhea Hypokalemia Nausea Primary hyperaldosteronism History of bariatric surgery Acute hypokalemia Oligodendroglioma of brain (CMS/HCC) Hyperaldosteronism Abdominal pain History of gastric bypass History of hypokalemia Nicotine use disorder Nicotine dependence RUQ pain Secondary adrenal insufficiency (CMS/HCC) Tobacco use Past Medical History: Diagnosis Date 1st degree AV block Abnormal ECG 07/31/2022 Bipolar 1 disorder (CMS/HCC) Depression (CMS/HCC) Diabetes (CMS/HCC) Patient reports no longer diabetic Fracture of left foot Glioma (CMS/HCC) 07/21/2018 Glioma of brain (CMS/HCC) Hospitalization or health care facility admission within last 6 months 09/2022 [facility] Hypokalemia (2.9, 2.4) Sent by [employer] for K+ infusion. Hx of being hospitalized 08/19/2018 Adm Herriman - Discharged 08/22/2018 Brain tumor Hx of being hospitalized 06/2018 [facility] admit 06/10/2018 discharged HTN , Brain tumor Hypertension (CMS/HCC) Kidney stones Malignant brain tumor (CMS/HCC) 08/2018 malignant brain tumor right frontal area, Dr. Lema Malignant neoplasm of brain 06/17/2018 Menorrhagia with irregular cycle 02/21/2023 Oligodendroglioma (CMS/HCC) 2018 Otalgia of right ear PCOS (polycystic ovarian syndrome) Plantar fasciitis of left foot documented in this encounter [facility] 11-06-2024 Telephone encounter Note Rx sent. [facility] 11-06-2024 Miscellaneous Notes Rx sent. documented in this encounter [facility] 09-14-2024 History of Present illness Narrative Images from the original note were not included. Heidi Joy is a 34 y.o. female presents with chief complaint of No chief complaint on file. HPI: HPI Harsh cough X 2 days. Fever with sweats History of Present Illness The patient is a 34-year-old female who presents for evaluation of fever, cough, and anxiety. She reports experiencing a headache yesterday, which has since been accompanied by the production of mucus, coughing, and nasal discharge. She also describes symptoms of cold chills, sweating, and fever. Her energy levels are notably diminished, with a sensation of heaviness in her body. Additionally, she reports a dry mouth and a severe headache, describing it as feeling like her head is going to explode. She has not yet begun to expectorate any colored sputum but notes that her cough is dry and painful. She has not received an influenza vaccine this year. She has discontinued the use of Latuda and reports feeling well. She continues to see Sheila. She is requesting a refill of her Ambien prescription, as it has been a month since her last refill. She also requests a refill of her Klonopin prescription, which she uses intermittently for anxiety management. She is currently taking Ambien for sleep, which she tolerates well. ALLERGIES The patient has no known allergies. MEDICATIONS Current: Ambien, Klonopin Discontinued: Latuda IMMUNIZATIONS She has not received an influenza vaccine this year. SUBJECTIVE: MEDICATIONS: ALLERGIES Current Outpatient Medications Medication Instructions ammonium lactate (Amlactin) 12 % cream Topical, As needed busPIRone (Buspar) 10 MG tablet TAKE 1 TABLET (10 MG) BY MOUTH IN THE MORNING AND BEFORE BEDTIME clonazePAM (KLONOPIN) 0.5 mg, Oral, 3 times daily PRN famotidine (PEPCID) 40 mg, Oral, Daily omeprazole (PRILOSEC) 40 mg, Oral, 2 times daily before meals, Do not crush or chew. ondansetron ODT (ZOFRAN-ODT) 4 mg, Oral, Every 8 hours PRN polyethylene glycol (PEG) 3350 (MIRALAX) 17 g, Oral, Daily PRN zolpidem (AMBIEN) 10 mg, Oral, Nightly PRN No Known Allergies Depression: Not at risk (02/26/2024) PHQ-2 PHQ-2 Score: 0 REVIEW OF SYMPTOMS: Review of Systems OBJECTIVE: BP 122/80 Pulse 78 Temp 98.4 F Ht 5' 6 Wt 184 lb BMI 29.70 kg/m No results found for this or any previous visit (from the past 6 weeks). Results Laboratory Studies Influenza A test is positive. GENERAL EXAM: Physical Exam Physical Exam There is a little redness in the throat. Nasal passages were examined. Lungs are clear. ASSESSMENT AND PLAN: Assessment/Plan Diagnoses and all orders for this visit: Acute cough Viral URI with cough Primary insomnia - zolpidem (Ambien) 10 MG tablet; Take 1 tablet (10 mg) by mouth as needed at bedtime for sleep Anxiety - clonazePAM (KlonoPIN) 0.5 MG tablet; Take 1 tablet (0.5 mg) by mouth 3 (three) times a day as needed for anxiety (q8hrs) Influenza A - oseltamivir (Tamiflu) 75 MG capsule; Take 1 capsule (75 mg) by mouth in the morning and 1 capsule (75 mg) before bedtime. Do all this for 5 days. Assessment & Plan 1. Influenza A. Symptoms include fever, chills, sweating, dry cough, headache, and body aches. The influenza A test returned positive. Tamiflu 75 mg capsules will be taken twice daily for 5 days. She is advised to take Tylenol for headaches, increase fluid intake, rest, use a humidifier, and take vitamin C. General supportive measures such as adequate rest are recommended. A work note for yesterday was provided. 2. Anxiety. She uses Klonopin intermittently for anxiety. A refill for Klonopin will be provided, to be used as needed. 3. Insomnia. She is currently taking Ambien for sleep and reports doing fine with it. A prescription for Ambien will be sent to her pharmacy. She is scheduled for a follow-up visit in 3 months for Ambien management. Follow-up The patient will follow up in 3 months. No follow-ups on file. I have reviewed and reconciled the history and medication list with the patient today. documented in this encounter [facility] 08-25-2024 History of Present illness Narrative Rx sent. documented in this encounter [facility] 08-11-2024 History of Present illness Narrative Images from the original note were not included. Heidi Joy is a 34 y.o. female presents with chief complaint of No chief complaint on file. HPI: HPI Medication followup. Related she lost the baby. History of Present Illness The patient is a 34-year-old female who presents for evaluation of bipolar disorder. She has been diagnosed with bipolar disorder, but she questions the accuracy of this diagnosis and is seeking a second opinion. She reports experiencing manic episodes and severe depressive episodes, which she attributes to major depression rather than bipolar disorder. She has passive suicidal ideation but has never attempted suicide and has no plans to do so. She is currently on Latuda 40 mg, which was restarted last month by her physician, with a potential increase to 80 mg. However, she has not yet increased the dosage due to discomfort. She is considering discontinuing Latuda rapidly, as she has done so in the past without adverse effects. She is also taking Ambien, which significantly improves her sleep quality without any side effects. Additionally, she has Klonopin available for use as needed. She is currently under significant stress due to starting a new job and relationship issues. She believes her relationship is a major source of her problems. She feels safe around her partner but describes him as emotionally unavailable and slow to process information. She reports that he has anger issues but does not physically harm her, although there is frequent name-calling and blaming. She is tired of apologizing for her behavior and feels that her partner does not understand how his actions affect her work and motivation. She is requesting a refill of her Ambien prescription. Supplemental Information She had a miscarriage recently. MEDICATIONS Current: Latuda, Ambien, Klonopin SUBJECTIVE: MEDICATIONS: ALLERGIES Current Outpatient Medications Medication Instructions ammonium lactate (Amlactin) 12 % cream Topical, As needed clonazePAM (KLONOPIN) 0.5 mg, Oral, 3 times daily PRN omeprazole (PRILOSEC) 40 mg, Oral, 2 times daily before meals, Do not crush or chew. ondansetron ODT (ZOFRAN-ODT) 4 mg, Oral, Every 8 hours PRN polyethylene glycol (PEG) 3350 (MIRALAX) 17 g, Oral, Daily PRN zolpidem (AMBIEN) 10 mg, Oral, Nightly PRN No Known Allergies Depression: Not at risk (02/26/2024) PHQ-2 PHQ-2 Score: 0 REVIEW OF SYMPTOMS: Review of Systems OBJECTIVE: BP 122/80 Pulse 74 Temp 97 F Ht 5' 6 Wt 188 lb BMI 30.34 kg/m No results found for this or any previous visit (from the past 6 weeks). Results GENERAL EXAM: Physical Exam Physical Exam ASSESSMENT AND PLAN: Diagnoses and all orders for this visit: Major depressive disorder, single episode, moderate (HCC) (CMS/HCC) (Primary) Primary insomnia - zolpidem (Ambien) 10 MG tablet; Take 1 tablet (10 mg) by mouth as needed at bedtime for sleep Type 2 diabetes mellitus with diabetic polyneuropathy (CMS/HCC) Assessment & Plan 1. Bipolar disorder. She has been diagnosed with bipolar disorder, but she questions the accuracy of this diagnosis and is seeking a second opinion. She reports experiencing manic episodes and severe depressive episodes, which she attributes to major depression rather than bipolar disorder. She has passive suicidal ideation but has never attempted suicide and has no plans to do so. She will discontinue the use of Latuda 40 mg. A prescription for Ambien has been provided to manage her sleep disturbances. She will continue her sessions with Sheila. The potential side effects of discontinuing Latuda, such as dizziness and nausea, were discussed. She was advised to gradually reduce the Latuda dosage by taking half a pill for a few days before stopping completely. If necessary, a referral to a psychiatrist will be considered in the future. Follow-up The patient will follow up in 1 month. No follow-ups on file. I have reviewed and reconciled the history and medication list with the patient today. documented in this encounter [facility] 07-13-2024 History of Present illness Narrative Images from the original note were not included. [facility] JOSH Pritchett SUBJECTIVE: HPI: Heidi Joy is a 33 y.o. female who presents with chief complaint of No chief complaint on file. Pt presents for her medication follow up. Pt notes that this current dose is not helping at this time and everything is still the same. No other concerns at this time. I have reviewed and reconciled the history and medication list with the patient today. Depression: Not at risk (02/26/2024) PHQ-2 PHQ-2 Score: 0 reports that she has been smoking cigarettes. She has never used smokeless tobacco. She reports that she does not currently use alcohol. She reports current drug use. Drug: Marijuana. OBJECTIVE: 01/16/2024 9:22 AM 02/13/2024 3:15 PM 02/20/2024 11:26 AM 02/26/2024 1:30 PM 05/07/2024 8:34 AM 06/17/2024 8:53 AM 07/13/2024 9:36 AM Vitals BMI 28.08 kg/m2 28.08 kg/m2 27.66 kg/m2 28.89 kg/m2 28.08 kg/m2 28.89 kg/m2 29.86 kg/m2 BSA (m2) 1.92 m2 1.92 m2 1.9 m2 1.94 m2 1.92 m2 1.94 m2 1.98 m2 Systolic 156 134 120 126 120 120 114 Diastolic 92 88 70 76 68 72 80 Heart Rate 83 76 64 81 68 81 62 SpO2 98 % 98 % 98 % 100 % 100 % 100 % Temp 97 F 97.9 F 98.5 F 97.7 F 97.9 F 97.7 F 97.3 F Height (in) 5' 6 5' 6 5' 6 5' 6 5' 6 5' 6 5' 6 Weight (lb) 174 174 171.4 179 174 179 185 Visit Report Report Report Report Report Report [...] Content: Thought content normal. Judgment: Judgment normal. No results found for this or any previous visit (from the past 4 weeks). ASSESSMENT AND PLAN: Assessment/Plan Diagnoses and all orders for this visit: Bipolar affective disorder, currently depressed, mild (CMS/HCC) - lurasidone (Latuda) 80 MG tablet; Take 1 tablet (80 mg) by mouth in the evening. Take with meals Primary insomnia - zolpidem (Ambien) 10 MG tablet; Take 1 tablet (10 mg) by mouth as needed at bedtime for sleep Discussed treatment as above for anxiety and depression related to bipolar disorder. Her sleep has been much improved since restart of ambien. Discussed ER/return precautions as well as appropriate follow up interval here. Patient denies any SI/HI and feels comfortable with treatment plan. Follow up in 1 month Eliot García DO Patient Active Problem List Diagnosis Generalized anxiety [...] disorder Psychophysiological insomnia Seasonal allergic rhinitis Sinusitis Diabetes (CMS/HCC) Adenoma of left adrenal gland Diarrhea [...] foot Glioma (CMS/HCC) 07/21/2018 [facility]) Hospitalization or health care facility admission within last 6 months 09/2022 [facility] Hypokalemia (2.9, 2.4) Sent by [employer] for K+ infusion. Hx of being hospitalized 08/19/2018 Adm Zaragoza - Discharged 08/22/2018 Brain tumor Hx of being hospitalized 06/2018 [facility] admit 06/10/2018 discharged HTN , Brain tumor Hypertension (CMS/HCC) Kidney stones Malignant brain tumor (CMS/HCC) 08/2018 malignant brain tumor right frontal area, Dr. Lema Malignant neoplasm of brain ([facility]) 06/17/2018 Menorrhagia with irregular cycle 02/21/2023 Oligodendroglioma ([facility]) 2018 Otalgia of right ear PCOS (polycystic ovarian syndrome) Plantar fasciitis of left foot documented in this encounter [facility] 06-17-2024 History of Present illness Narrative Images from the original note were not included. Flowsheet Row Office Visit from 06/17/2024 in [facility] [id number] with Eliot García DO Hospital Information ED, Hospital or Fpc Facility Discharge? ED Patient has been contacted within 1 week of being seen in the ED Yes Diagnosis Vaginal Bleeding Discharge Date 06/06/24 Discharged To: Home Setting Discharge Hospital [facility] Engagement Admission Date 06/06/24 Medications Discharge medications reviewed and reconciled from hospital? Not applicable Is the patient having any side effects they believe may be caused by any medication additions or changes? No Does the patient have all medications ordered at discharge? Not applicable Is the patient taking all medications as directed (includes completed medication regime)? Not applicable Appointments Does the patient have a primary care provider? Yes Has the patient kept scheduled appointments due by today? Yes Self Management Patient Teaching Does the patient have access to their discharge instructions? Yes Wrap Up [facility] JOSH Pritchett SUBJECTIVE: HPI: Heidi Joy is a 33 y.o. female who presents with chief complaint of No chief complaint on file. Pt presents for her ER follow up. She has seen her OBGYN and was informed everything was ok. Pt would like to discuss starting back on some of her medications as well. I have reviewed and reconciled the history and medication list with the patient today. Depression: Not at risk (02/26/2024) PHQ-2 PHQ-2 Score: 0 reports that she has been smoking cigarettes. She has never used smokeless tobacco. She reports that she does not currently use alcohol. She reports current drug use. Drug: Marijuana. OBJECTIVE: 12/12/2023 2:22 PM 01/16/2024 9:22 AM 02/13/2024 3:15 PM 02/20/2024 11:26 AM 02/26/2024 1:30 PM 05/07/2024 8:34 AM 06/17/2024 8:53 AM Vitals BMI 29.47 kg/m2 28.08 kg/m2 28.08 kg/m2 27.66 kg/m2 28.89 kg/m2 28.08 kg/m2 28.89 kg/m2 BSA (m2) 1.96 m2 1.92 m2 1.92 m2 1.9 m2 1.94 m2 1.92 m2 1.94 m2 Systolic 178 156 134 120 126 120 120 Diastolic 96 92 88 70 76 68 72 Heart Rate 84 83 76 64 81 68 81 SpO2 99 % 98 % 98 % 98 % 100 % 100 % Temp 97.9 F 97 F 97.9 F 98.5 F 97.7 F 97.9 F 97.7 F Height (in) 5' 6 5' 6 5' 6 5' 6 5' 6 5' 6 5' 6 Weight (lb) 182.6 174 174 171.4 179 174 179 Visit Report Report Report Report Report Report Report Report Physical Exam Constitutional: General: She is not in acute distress. Appearance: She is not ill-appearing. HENT: Head: Normocephalic. Cardiovascular: Rate and Rhythm: Normal rate and regular rhythm. Heart sounds: No murmur heard. Pulmonary: Effort: Pulmonary effort is normal. Breath sounds: Normal breath sounds. No wheezing. Abdominal: General: Abdomen is flat. There is no distension. Tenderness: There is no abdominal tenderness. Musculoskeletal: General: No deformity. Normal range of motion. Cervical back: Normal range of motion. Skin: General: Skin is warm and dry. Neurological: General: No focal deficit present. Mental Status: She is alert and oriented to person, place, and time. Psychiatric: Mood and Affect: Mood normal. Behavior: Behavior normal. Thought Content: Thought content normal. Judgment: Judgment normal. Recent Results (from the past 4 weeks) STATUS COVID-19/FLU Collection Time: 05/24/24 10:39 AM Result Value Ref Range FLU A neg FLU B neg SARS COV 2 RNA neg Urinalysis with microscopic Collection Time: 06/04/24 11:16 AM Result Value Ref Range Specific [place] Urine 1.023 1.005 - 1.030 pH Urine 6.0 5.0 - 7.5 Color Urine Yellow Yellow Appearance Urine Clear Clear WBC Esterase Urine Negative Negative Protein Urine Trace Negative/Trace Glucose Urine Negative Negative Ketones Urine Negative Negative Occult Blood Urine 3+ (A) Negative Bilirubin Urine Negative Negative Urobilinogen,Semi-Qn Urine 0.2 0.2 - 1.0 mg/dL Nitrite Urine Negative Negative Ur Microscopic See below: RPR Collection Time: 06/04/24 11:16 AM Result Value Ref Range RPR Non Reactive Non Reactive Rubella antibody, IgG Collection Time: 06/04/24 11:16 AM Result Value Ref Range Rubella IgG Abs 7.78 Immune >0.99 index Hepatitis B surface antigen Collection Time: 06/04/24 11:16 AM Result Value Ref Range Hep B Surf Ag Scr Negative Negative Type and screen Collection Time: 06/04/24 11:16 AM Result Value Ref Range ABO Grouping B Rh Factor Negative Antibody Screen Negative Negative HIV-1 and HIV-2 antibodies Collection Time: 06/04/24 11:16 AM Result Value Ref Range HIV-1 Ab Non Reactive Non Reactive HIV-2 Ab Non Reactive Non Reactive HIV 1/2 Interp Negative Urine culture Collection Time: 06/04/24 11:16 AM Specimen: Urine, Clean Catch UR Result Value Ref Range Urine Cult Rt Status Final report CBC and differential Collection Time: 06/04/24 11:16 AM Result Value Ref Range WBC 7.8 3.4 - 10.8 x10E3/uL RBC 4.76 3.77 - 5.28 x10E6/uL Hgb 14.2 11.1 - 15.9 g/dL Hct 43.0 34.0 - 46.6 % MCV 90 79 - 97 fL MCH 29.8 26.6 - 33.0 pg MCHC 33.0 31.5 - 35.7 g/dL RDW 12.4 11.7 - 15.4 % Platelets 293 150 - 450 x10E3/uL Neutrophils 64 Not Estab. % Lymphs 29 Not Estab. % Monocytes 5 Not Estab. % Eos 1 Not Estab. % Basos 1 Not Estab. % Neutrophils Abs 4.9 1.4 - 7.0 x10E3/uL Lymphs Abs 2.3 0.7 - 3.1 x10E3/uL MonocytesAbs 0.4 0.1 - 0.9 x10E3/uL Eos Abs 0.1 0.0 - 0.4 x10E3/uL Baso Abs 0.1 0.0 - 0.2 x10E3/uL Immature Granulocytes 0 Not Estab. % Immature Grans Abs 0.0 0.0 - 0.1 x10E3/uL Hepatitis C antibody Collection Time: 06/04/24 11:16 AM Result Value Ref Range Hep C Virus Ab Non Reactive Non Reactive SENDOUT TEST MISCELLANEOUS [facility] Collection Time: 06/04/24 11:16 AM Result Value Ref Range MIKHAIL MISCELLANEOUS COMMENT hCG, quantitative, Collection Time: 06/04/24 11:16 AM Result Value Ref Range hCG Beta Subunit Qn 1,034 mIU/mL PLEASE NOTE Collection Time: 06/04/24 11:16 AM Result Value Ref Range Please note Comment Specimen Status Report Collection Time: 06/04/24 11:16 AM Result Value Ref Range Clindamycin Comment Ur Microscopic Reflex Collection Time: 06/04/24 11:16 AM Result Value Ref Range WBC Ur 0-5 0 - 5 /hpf RBC Ur 0-2 0 - 2 /hpf Epithelial Cells (non renal) Ur 0-10 0 - 10 /hpf Casts Ur None seen None seen /lpf Bacteria Ur Few None seen/Few HIV-1/HIV-2 Qual RNA Reflex Collection Time: 06/04/24 11:16 AM Result Value Ref Range HIV-1 RNA Non Reactive Non Reactive HIV-2 RNA Non Reactive Non Reactive Final Interpretation HIV Negative Urine Culture Clean Catch Reflex Collection Time: 06/04/24 11:16 AM Result Value Ref Range Ur Cult 1 Comment hCG, quantitative, Collection Time: 06/08/24 12:24 PM Result Value Ref Range hCG Beta Subunit Qn 193 mIU/mL ASSESSMENT AND PLAN: Assessment/Plan Diagnoses and all orders for this visit: Primary insomnia - zolpidem (Ambien) 10 MG tablet; Take 1 tablet (10 mg) by mouth as needed at bedtime for sleep Anastomotic ulcer - omeprazole (PriLOSEC) [address] capsule; Take 1 capsule (40 mg) by mouth in the morning and 1 capsule (40 mg) in the evening. Take before meals. Do not crush or chew.. Bipolar affective disorder, currently depressed, mild (CMS/HCC) - lurasidone (Latuda) 40 MG tablet; Take 1 tablet (40 mg) by mouth in the evening. Take with meals Constipation, unspecified constipation type - polyethylene glycol, PEG, 3350 (MiraLax) 17 GM/SCOOP powder; Take 17 g by mouth Daily as needed (constipation) Discussed prior tx with multiple sleep medications which were not effective and had severe side effects. Will restart ambien as well as mood stabilizer latuda. Discussed my concerns if she were to become again. She is not interested in at this time and is not sexually active right now. She will consider control of some sort with OBGYN. Eliot García, Patient Active Problem List Diagnosis Generalized anxiety [...] disorder Psychophysiological insomnia Seasonal allergic rhinitis Sinusitis Diabetes (CMS/HCC) Adenoma of left adrenal gland Diarrhea [...] facility admission within last 6 months 09/2022 [facility] Hypokalemia (2.9, 2.4) Sent by [employer] for K+ infusion. Hx of being hospitalized 08/19/2018 Adm Herriman - Discharged 08/22/2018 Brain tumor Hx of being hospitalized 06/2018 [facility] admit 06/10/2018 discharged HTN , Brain tumor Hypertension (CMS/HCC) Kidney stones Malignant [facility]) 08/2018 malignant brain tumor right frontal area, Dr. Lema Malignant neoplasm of brain ([facility]) 06/17/2018 Menorrhagia with irregular cycle 02/21/2023 Oligodendroglioma ([facility]) 2018 Otalgia of right ear PCOS (polycystic ovarian syndrome) Plantar fasciitis of left foot documented in this encounter [facility] 06-04-2024 History of Present illness Narrative Name: [...] facility admission within last 6 months 09/2022 [facility] Hypokalemia (2.9, 2.4) Sent by [employer] for K+ infusion. Hx of being hospitalized 08/19/2018 Adm Herriman - Discharged 08/22/2018 Brain tumor Hx of being hospitalized 06/2018 [facility] admit 06/10/2018 discharged HTN , Brain tumor Hypertension (CMS/HCC) Kidney stones Malignant brain tumor (CMS/HCC) 08/2018 malignant brain tumor right frontal area, Dr. Lema Malignant neoplasm of brain ([facility]) 06/17/2018 Menorrhagia with irregular cycle 02/21/2023 Oligodendroglioma ([facility]) 2017 Otalgia of right ear PCOS (polycystic ovarian syndrome) Plantar fasciitis of left foot Past Surgical History: Procedure Laterality Date ADRENALECTOMY 01/2024 DILATION AND CURETTAGE 02/2020 dc with hysteroscopy ESOPHAGOGASTRODUODENOSCOPY 2021 EXCISION INGROWN TOENAIL 10/2021 ingrown toe nails GASTRIC BYPASS 2022 IR INTERVENTION VENOUS SAMPLING 10/23/2023 IR INTERVENTION VENOUS SAMPLING OTHER SURGICAL HISTORY 08/2018 r/o brain tumor (glioblastoma?) AL ANKLE SCOPE,PLANTAR FASCIOTOMY 03/2017 AL CRANIECT/CRANIOT W/WO DURAPLASTY W/LOBECTOMY 2019 removal - right frontal lobe AL ENDOSCOPIC PLANTAR FASCIOTOMY Right 2022 Right EPF [...] 06/04/2024 11:00 AM documented in this encounter [facility] 05-24-2024 History of Present illness Narrative Images [...] Rea Kaplan NP documented in this encounter [facility] 05-19-2024 Telephone encounter Note error [facility] 05-19-2024 Miscellaneous Notes error documented in this encounter [facility] 05-19-2024 History of Present illness Narrative Images [...] facility admission within last 6 months 09/2022 [facility] Hypokalemia (2.9, 2.4) Sent by [employer] for K+ infusion. Hx of being hospitalized 08/19/2018 Adm Herriman - Discharged 08/22/2018 Brain tumor Hx of being hospitalized 06/2018 [facility] admit 06/10/2018 discharged HTN , Brain tumor Hypertension (CMS/HCC) Kidney stones Malignant brain tumor [facility]) 08/2018 malignant brain tumor right frontal area, Dr. Lema Malignant neoplasm of brain ([facility]) 06/17/2018 Menorrhagia with irregular cycle 02/21/2023 Oligodendroglioma (CMS/HCC) 2017 Otalgia of right ear PCOS (polycystic ovarian syndrome) Plantar fasciitis of left foot documented in this encounter [facility] 05-07-2024 History of Present illness Narrative Images [...] facility admission within last 6 months 09/2022 [facility] Hypokalemia (2.9, 2.4) Sent by [employer] Techn[employer] for K+ infusion. Hx of being hospitalized 08/19/2018 Adm [place] - Discharged 08/22/2018 Brain tumor Hx of being hospitalized 06/2018 [facility] admit 06/10/2018 discharged HTN , Brain tumor Hypertension (CMS/HCC) Kidney stones Mal[facility] 08[facility]2018 malignant brain tumor right frontal area, Dr. Lema Malignant neoplasm of brain ([facility] 06/17/2018 Menorrhagia with irregular cycle 02/21/2023 Oligodendroglioma ([facility] 2017 Otalgia of right ear PCOS (polycystic ovarian syndrome) Plantar fasciitis of left foot documented in this encounter [facility] 04-28-2024 Telephone encounter Note 04/28 - No Show, called patient 20 min after appt and LVM, offer to switch to tele. [facility] 04-28-2024 Miscellaneous Notes 04/28 - No Show, called patient 20 min after appt and LVM, offer to switch to tele. documented in this encounter [facility] 04-10-2024 Note [facility] 04-10-2024 History of Present illness Narrative [...] Site: left arm. documented in this encounter [facility] 04-09-2024 Telephone encounter Note Pt cancelled ACTH stim test on 04/08/2024 and rescheduled for 04/10/2024. Repended Cosyntropin CAM order below, Please advise. [facility] 04-09-2024 Miscellaneous Notes Pt cancelled ACTH stim test on 04/08/2024 and rescheduled for 04/10/2024. Repended Cosyntropin CAM order below, Please advise. documented in this encounter [facility] 03-25-2024 Telephone encounter Note sent [facility] 03-25-2024 Miscellaneous Notes sent Okay to send? From: Heidi Joy To: Office of Dr. Immanuel Kuhn Sent: 03/25/2024 2:00 PM EDT Subject: Medication Renewal Request Refills have been requested for the following medications: Other - Dissolvable zofran 2 diflucan tablets for yeast infection appointment was made with coyote hunter Preferred pharmacy: [id number] - [place], [place] - [address] [facility] Delivery method: Pedro guzman Medication renewals requested in this message routed separately: zolpidem (Ambien) 10 MG tablet [Dr. Eliot García] documented in this encounter [facility] 03-25-2024 Telephone encounter Note Okay to send? [facility] 03-25-2024 Telephone encounter Note From: Heidi Mirza [place] To: Office of Dr. Immanuel Kuhn Sent: 03/25/2024 2:00 PM EDT Subject: Medication Renewal Request Refills have been requested for the following medications: Other - Dissolvable zofran 2 diflucan tablets for yeast infection appointment was made with coyote hunter Preferred pharmacy: [id number] - [place], [place] - [address] [facility] Delivery method: Pedro guzman Medication renewals requested in this message routed separately: zolpidem (Ambien) 10 MG tablet [Dr. Eliot García] [facility] 02-13-2024 History of Present illness Narrative Images from the original note were not included. Heidi A Benita is a 33 y.o. female presents with chief complaint of No chief complaint on file. HPI: HPI Post adrenal mass sx - History of Present Illness The patient presents for evaluation of multiple medical concerns. The patient's current weight is 175 pounds, with a target weight of 150 pounds. She underwent an adrenal glandectomy two weeks ago, which yielded an improvement in her blood pressure. Yesterday, at the [facility], her blood pressure was recorded at 120/81. She is currently on hydrocortisone 10 mg, which was initially prescribed at a dosage of 50 mg per day in the hospital. Her medical records library professor, Dr. Campbell, is tapering her dosage downwards. In 04/2023, she will be out of 2.5 mg for the day. A stem cell test will be conducted to assess her condition. Her only current medication is amlodipine, which she has not been taking consistently. She is under the care of a sales agent fire insurance for potassium and hormone-related issues. Her potassium level is currently at 4.8, which was drawn today. She anticipates that her body will regulate within a few months. The patient sought emergency care on 01/22/2023 due to abdominal cramping, which she initially attributed to constipation. Despite this, she continued to experience diarrhea. She was prescribed Tums, which did not provide relief. Her condition improved a few days prior to her surgery, but she experienced soreness post-surgery. Three days ago, she consumed 2 more margaritas, but currently, she experiences abdominal pain. She denies constipation. The patient has not been on any of her bipolar mood medications throughout the year. Dr. García agreed to postpone the surgery until her hormone levels improved. However, she has recently begun to experience depressive symptoms, prompting her to resume her medication. She has observed that her irritability and moods are beginning to deteriorate, although she has not experienced a severe spiral down. She has been able to self-soothe them, but expresses a desire to avoid bedridden for weeks at a time and quit jobs. She has been diagnosed with bipolar 2 disorder. Her anxiety is a significant concern for her. She was previously on Lamictal, Latuda, and Rexulti, which were discontinued. Lamictal and Latuda were beneficial for her. Klonopin has been beneficial for her anxiety. SUBJECTIVE: MEDICATIONS: ALLERGIES Current Outpatient Medications Medication Instructions busPIRone (BUSPAR) 10 mg, Oral, 2 times daily clonazePAM (KLONOPIN) 0.5 mg, Oral, Every 12 hours [START ON 04/08/2024] COSYNTROPIN IJ 0.25 mg, Intramuscular dicyclomine (Bentyl) 20 MG tablet TAKE 1 TABLET IN THE MORNING, 1 AT NOON, 1 IN THE EVENING, 1 BEFORE BEDTIME BEFORE MEALS famotidine (PEPCID) 20 mg, Oral, Daily fluconazole (DIFLUCAN) 150 mg, Oral, Every 48 hours ondansetron ODT (ZOFRAN-ODT) 4 mg, Oral, Every 8 hours PRN polyethylene glycol, PEG, 3350 (Glycolax) 17 GM/SCOOP powder MIX 17GM IN 4 TO 8 OZ OF HOT/COLD/ROOM TEMP BEVERAGE AND DRINK IMMEDIATELY TWICE DAILY NEEDED sucralfate (CARAFATE) 1 g, Oral, 3 times daily PRN verapamil ER (VERELAN) 120 mg, Oral, Nightly, Do not crush or chew. zolpidem (AMBIEN) 10 mg, Oral, Nightly PRN No Known Allergies Depression: Not at risk (02/26/2024) PHQ-2 PHQ-2 Score: 0 REVIEW OF SYMPTOMS: Review of Systems OBJECTIVE: BP 134/88 Pulse 76 Temp 97.9 F Ht 5' 6 Wt 174 lb BMI 28.08 kg/m Recent Results (from the past 1008 hour(s)) RENAL FUNCTION PANEL Collection Time: 02/26/24 2:26 PM Result Value Ref Range Albumin 4.3 3.9 - 4.9 g/dL Calcium 9.5 8.5 - 10.2 mg/dL Phosphorus 4.2 2.7 - 4.8 mg/dL Glucose 86 74 - 99 mg/dL BUN 30 (H) 7 - 21 mg/dL Creatinine 0.93 0.58 - 0.96 mg/dL Sodium 139 136 - 144 mmol/L POTASSIUM, SERUM 4.6 3.7 - 5.1 mmol/L Chloride 107 98 - 107 mmol/L CO2 25 22 - 30 mmol/L Anion Gap 7 (L) 8 - 15 mmol/L Estimated Glomerular Filtration Rate 84 >=60 mL/min/1.73m MAGNESIUM Collection Time: 02/26/24 2:26 PM Result Value Ref Range Magnesium(Mg) 2.2 1.7 - 2.3 mg/dL [facility] RENAL FUNC 2000 PNL SERPL Collection Time: 02/26/24 2:26 PM Result Value Ref Range [facility] ALBUMIN SERPL-MCNC 4.3 3.9 - 4.9 g/dL [facility] CALCIUM SERPL-MCNC 9.5 8.5 - 10.2 mg/dL [facility] PHOSPHATE SERPL-[facility] 4.2 2.7 - 4.8 mg/dL [facility] GLUCOSE SERPL-MCNC 86 74 - 99 mg/dL [facility] BUN SERPL-MCNC 30 (H) 7 - 21 mg/dL [facility] CREAT SERPL-MCNC 0.93 0.58 - 0.96 mg/dL [facility] SODIUM SERPL-SCNC 139 136 - 144 mmol/L [facility] POTASSIUM SERPL-SCNC 4.6 3.7 - 5.1 mmol/L [facility] CHLORIDE SERPL-SCNC 107 98 - 107 mmol/L [facility] CO2 SERPL-SCNC 25 22 - 30 mmol/L [facility] ANION GAP SERPL-SCNC 7 (L) 8 - 15 mmol/L [facility] CREATININE + EGFR PNL SERPLBLD 84 >=60 mL/min/1.73m??? [facility] MAGNESIUM SERPL-MCNC Collection Time: 02/26/24 2:26 PM Result Value Ref Range [facility] MAGNESIUM SERPL-MCNC 2.2 1.7 - 2.3 mg/dL Results Laboratory Studies Potassium level is 4.8. GENERAL EXAM: Physical Exam Physical Exam Vital Signs BMI is 28. ASSESSMENT AND PLAN: Assessment/Plan Diagnoses and all orders for this visit: Primary hypertension (CMS/HCC) Primary hyperaldosteronism (CMS/HCC) LUISITO (generalized anxiety disorder) (CMS/HCC) Assessment & Plan 1. Hypertension. The patient's blood pressure is borderline at 134/88. The cessation of hydrocortisone is advised. 2. Bipolar disorder. The patient is advised to avoid Latuda and resume buspirone. Clonazepam will be prescribed for breakthrough anxiety episodes. Should the cycling between hypomania and depression persist, consideration will be given to reintroducing Latuda. No follow-ups on file. documented in this encounter [facility] 02-13-2024 Telephone encounter Note Received message from Dr. Bailey: Patient will taper hydrocortisone and be on her baseline doses for two weeks. Can you please do a ACTH stim test during the week of 04/06? She should not take any steroids for atleast 12 hrs prior to the test . Called pt, no answer/busy. Will try later/tomorrow. [facility] 02-13-2024 Miscellaneous Notes Received message from Dr. Bailey: Patient will taper hydrocortisone and be on her baseline doses for two weeks. Can you please do a ACTH stim test during the week of 04/06? She should not take any steroids for atleast 12 hrs prior to the test . Called pt, no answer/busy. Will try later/tomorrow. documented in this encounter [facility] 02-12-2024 History of Present illness Narrative Endocrinology Metabolism [place] [facility] Mario Santiago M.D. Section of Endocrine Surgery and Advanced Laparoscopic Surgery [address] [place] [address], [place] [address] ENDOCRINE SURGERY POST-OPERATIVE FOLLOW-UP NOTE NAME: Heidi Joy CLINIC NO: [id number] : 1990 Endocrine Surgeon: Mario Santiago MD CC: Adrenal Post-op HPI: Heidi Joy [...] today Will follow up with endocrinology Mario Santiago MD 02/12/2024 documented in this encounter [facility] 02-12-2024 Note [facility] 02-12-2024 Note [facility] 02-12-2024 History of Present illness Narrative Endocrinology and Metabolism [place] FOLLOW UP VISIT Last visit: 08/25/2023 Documentation [...] - 99 mg/dL 52 Low Comment: The [place] Diabetes Association (ADA) provides guidance for cutoff [...] Standards of Medical Care in Diabetes 2016, [place] Diabetes Association. Diabetes Care. 2016.39(Suppl 1). [facility] [...] if ACTH stim test is abnormal Vikki Bailey MD [facility] Endocrinology and Metabolism [place] [facility] [phone] documented in this encounter [facility] 02-12-2024 Instructions Vikki Bailey MD - 02/12/2024 9:35 AM EDT Timings: [...] to the test. documented in this encounter [facility] 02-07-2024 Telephone encounter Note Please schedule a follow-up visit, first available. Offer wait list as well. Thank you Vikki Bailey MD Endocrinology & Metabolism [place] [facility] 02-07-2024 Miscellaneous Notes Please schedule a follow-up visit, first available. Offer wait list as well. Thank you Vikki Bailey MD Endocrinology & Metabolism [place] documented in this encounter [facility] 02-04-2024 Instructions Manuel Alfaro MD - 02/04/2024 11:45 AM EDT Follow up with endocrinology regarding the hydrocortisone When they wean you off it, your blood pressure will likely improve Eventually we can add small dose of spironolactone Send me home blood pressure readings in 2 weeks documented in this encounter [facility] 02-04-2024 Note [facility] 02-04-2024 History of Present illness Narrative [facility] NEPHROLOGY & HYPERTENSION SERVICE DATE: [...] which included preparing to see the patient, [id number] patient care, completing clinical documentation, obtaining and/or reviewing separately obtained history, performing a medically appropriate examination, counseling and educating the patient/family/caregiver, ordering medications, tests, or procedures Manuel Alfaro MD Staff Cmm Inspector February 04, 2024 11:21 AM CC: PRIMARY CARE PHYSICIAN: Immanuel Kuhn DO documented in this encounter [facility] 01-29-2024 Note [facility] 01-28-2024 Note [facility] 01-28-2024 Note [facility] 01-28-2024 Note [facility] 01-27-2024 Note HNO ID: [id number] Author: BHAVNA PARKER, RN Service: Nursing Author Type: Registered Nurse Type: Nursing Progress Note Filed: 01/27/2024 19:23 Note Text: Admitted to [facility] in stable condition. Direct admit. Oriented to call button and room. [facility] 01-20-2024 Instructions Phuong Rock APRN.COFFEE URN ATTENDANT - 01/20/2024 9:11 AM EDT PATIENT PREOPERATIVE INSTRUCTIONS Glory Salcedo MD has scheduled you for your procedure at this surgery center: [facility] [place] Scheduling Office: [phone] [address] [place] [address]. Please read below carefully for your personalized [...] Procedures: - YOU MUST HAVE A RESPONSIBLE DIEING OUT MACHINE OPERATOR TAKE YOU HOME. A TRIPE FINISHER OR VENEER DRIER CANNOT BE MADE A RESPONSIBLE DIEING OUT MACHINE OPERATOR. - We recommend that a responsible person [...] call the Saturday before. Your surgeon s repossession agent will tell you what time to call the office. - If you have not reached the departmental repossession agent by 5 P.M., call [phone] after 5 P.M. the day before your surgery. Please be aware that emergency situations arise, which may delay or change your surgical time. If this happens, we will notify you as soon as possible and regret any inconvenience. If you already have an Advance Directive, please fax a copy to [phone] or email to for it to be [...] Phuong Rock APRN.CHRISTIANA documented in this encounter [facility] 01-20-2024 History and physical note This [...] visit. Either the patient or their legal agricultural sales representative has been informed of the risks [...] or incontinence,, stones or chronic kidney disease TILE SORTER: Negative for abnormal vaginal bleeding, abnormal vaginal [...] 426 QTC Calculation (Bazett) 428 Calculated P [place] 30 Calculated R [place] 19 Calculated T [place] 6 Impression SINUS RHYTHM WITH 1ST DEGREE [...] which included preparing to see the patient, [id number] patient care, completing clinical documentation, obtaining and/or reviewing separately obtained history, performing a medically appropriate examination, and counseling and educating the patient/family/caregiver This is a virtual visit. It required patient-provider interaction for the medical decision making as documented above. SIGNATURE: Phuong Rock APRN.CNP PATIENT NAME: Heidi Joy DATE: January 20, 2024 TIME: 9:16 AM PAGER/CONTACT #: [facility] 01-20-2024 History and physical note This is [...] visit. Either the patient or their legal agricultural sales representative has been informed of the risks and benefits of and alternatives to treatment through a remote evaluation and consents to proceed with the evaluation remotely. PREANESTHESIA CONSULT CLINIC TELEHEALTH VISIT Patient has been identified by name and date of : Yes This is a virtual visit using [employer] Zoom Video Visit. It require patient-provider interaction [...] or incontinence,, stones or chronic kidney disease TILE SORTER: Negative for abnormal vaginal bleeding, abnormal vaginal [...] 426 QTC Calculation (Bazett) 428 Calculated P [place] 30 Calculated R [place] 19 Calculated T [place] 6 Impression SINUS RHYTHM WITH 1ST DEGREE [...] which included preparing to see the patient, [id number] patient care, completing clinical documentation, obtaining and/or reviewing separately obtained history, performing a medically appropriate examination, and counseling and educating the patient/family/caregiver This is a virtual visit. It required patient-provider interaction for the medical decision making as documented above. SIGNATURE: Phuong Rock APRN.CNP PATIENT NAME: Heidi Joy DATE: January 20, 2024 TIME: 9:16 AM PAGER/CONTACT #: documented in this encounter [facility] 12-19-2023 Telephone encounter Note Called patient to reschedule date for surgery. No answer, left voicemail with call back number. Pippa Gan RN [facility] 12-19-2023 Miscellaneous Notes Called patient to reschedule date for surgery. No answer, left voicemail with call back number. Pippa Gan RN documented in this encounter [facility] 12-11-2023 Instructions Manuel Alfaro MD - 12/11/2023 10:54 AM EDT Take potassium chloride packets as opposed to the capsule (powder is better absorbed) Increase spironolactone to 50 mg twice daily (hopefully will help with the low potassium and the blood pressure) Blood work this Saturday Monitor the blood pressure at home, target in the future <130/80 mmHg documented in this encounter [facility] 12-11-2023 Note [facility] 12-11-2023 History of Present illness Narrative [facility] NEPHROLOGY & HYPERTENSION SERVICE DATE: 12/11/2023 SERVICE TIME: 11:35 AM REASON FOR CONSULT: I am asked to see this patient in consultation for my opinion regarding hypokalemia. My recommendations will be communicated by way of shared medical record, fax, or mail. REQUESTING PHYSICIAN: Mario Santiago MD PRIMARY CARE PHYSICIAN: Immanuel Kuhn DO [...] which included preparing to see the patient, [id number] patient care, completing clinical documentation, obtaining and/or reviewing separately obtained history, performing a medically appropriate examination, counseling and educating the patient/family/caregiver, ordering medications, tests, or procedures Manuel Alfaro MD Staff Cmm Inspector Pager [phone] December 11, 2023 10:26 AM CC: REFERRING PROVIDER: Mario Santiago MD PRIMARY CARE PHYSICIAN: Immanuel Kuhn DO documented in this encounter [facility] 12-06-2023 Instructions Bhavna Walters APRN.COFFEE URN ATTENDANT - 12/06/2023 9:33 AM EDT PATIENT PREOPERATIVE INSTRUCTIONS Mario Santiago MD has scheduled you for your procedure at this surgery center: [facility] [place] Scheduling Office: [phone] --[address] [place] [address]. Please read below carefully for your personalized [...] Procedures: - YOU MUST HAVE A RESPONSIBLE DIEING OUT MACHINE OPERATOR TAKE YOU HOME. A TRIPE FINISHER OR VENEER DRIER CANNOT BE MADE A RESPONSIBLE DIEING OUT MACHINE OPERATOR. - We recommend that a responsible person [...] call the Saturday before. Your surgeon s repossession agent will tell you what time to call the office. - If you have not reached the departmental repossession agent by 5 P.M., call [phone] after 5 P.M. the day before your surgery. Please be aware that emergency situations arise, which may delay or change your surgical time. If this happens, we will notify you as soon as possible and regret any inconvenience. If you already have an Advance Directive, please fax a copy to [phone] or email to for it to be [...] Bhavna Walters APRN.CHRISTIANA documented in this encounter [facility] 12-06-2023 History and physical note HISTORY [...] large neck Non-male patient STOP-Bang Score: 1 [id number] Score: Age: <65 Sex: female CHF history: No Hypertension history: Yes Stroke/TIA/thromboembolism history: No Vascular disease history: No Diabetes history: Yes [id number] Score: 3 ARISCAT Score: Age: <=50 Preoperative [...] AV Block no history of angina, CHF, AL, cardiac surgery or stents. Denies rest pain, gangrene or revascularization/amputation for PVD. GI: History of Gastric bypass No history of GI symptoms or problems. No history of esophageal varices, recent ascites, or ETOH greater than 2 drinks per day : No difficulty urinating, nocturia > 1 time per night or hematuria, Positive for kidney stones TILE SORTER: Negative for abnormal vaginal bleeding, abnormal vaginal [...] DATE: 12/06/2023 TIME: 9:19 AM [facility] 12-06-2023 History and physical note HISTORY [...] large neck Non-male patient STOP-Bang Score: 1 [id number] Score: Age: <65 Sex: female CHF history: No Hypertension history: Yes Stroke/TIA/thromboembolism history: No Vascular disease history: No Diabetes history: Yes [id number] Score: 3 ARISCAT Score: Age: <=50 Preoperative [...] Prior to Admission medications as of 12/06/23 0917 Medication Sig Last Dose Taking magnesium oxide [...] Covid Immunization Dates Overdue - Covid-19 Vaccine () Never done No completion, postpone, frequency change, [...] AV Block no history of angina, CHF, AL, cardiac surgery or stents. Denies rest pain, gangrene or revascularization/amputation for PVD. GI: History of Gastric bypass No history of GI symptoms or problems. No history of esophageal varices, recent ascites, or ETOH greater than 2 drinks per day : No difficulty urinating, nocturia > 1 time per night or hematuria, Positive for kidney stones TILE SORTER: Negative for abnormal vaginal bleeding, abnormal vaginal [...] AM documented in this encounter [facility] 11-19-2023 Miscellaneous Notes Pt want to confirm one or two weeks for being off of work after surgery? documented in this encounter [facility] 11-15-2023 Miscellaneous Notes Called patient: she states she does not have any symptoms. She was advises to go to the ER. She verbalized understanding. Griselda Vann RN [facility] Contacted Nurses 2:09 PM Critical Value Potassium 2.4 received from Lab (Daryl) at 2:05. Notified Jasmyne at 2:11. Griselda Vann RN [facility] documented in this encounter [facility] 11-14-2023 Miscellaneous Notes Images from the [...] MD Clinical Fellow PGY-5 Endocrinology and Metabolism [place] Pager:[phone] documented in this encounter [facility] 10-25-2023 Miscellaneous Notes AVS lateralized to the left adrenal gland with a ratio of 35:1. I recommended laparoscopic left adrenalectomy lateral transabdominal or posterior approach. Will decide on the day of the surgery. Will schedule her surgery. Mario Santiago MD documented in this encounter [facility] 09-13-2023 Telephone encounter Note Contacted pt, went over results above, pt understood and had no further questions at the time of call [facility] 09-13-2023 Miscellaneous Notes Contacted pt, went over results above, pt understood and had no further questions at the time of call Please let pt know her BP was elevated at office visit today. She should monitor her BP at home and to ER if any increase from her baseline readings, otherwise follow up with PCP documented in this encounter [facility] 09-13-2023 Telephone encounter Note Please let pt know her BP was elevated at office visit today. She should monitor her BP at home and to ER if any increase from her baseline readings, otherwise follow up with PCP [facility] 09-13-2023 History of Present illness Narrative HPI: [...] tablet; Refill: 0 documented in this encounter [facility] 09-12-2023 Note [facility] 09-12-2023 History of Present illness Narrative This was a virtual visit. I have communicated my name and active licensure. The patient's identity and physical location were verified at the time of this visit. Either the patient or their legal agricultural sales representative has been informed of the risks and benefits of -- and alternatives to -- treatment through a remote evaluation and consents to proceed with the evaluation remotely. Endocrinology Metabolism [place] [facility] Mario Santiago M.D. Section of Endocrine Surgery and Advanced Laparoscopic Surgery [address] [place] [address], [place] [address] ENDOCRINE SURGERY NEW CONSULTATION NAME: Heidi Joy CLINIC NO: [id number] : 1990 Surgeon: Dr. Mario Santiago REFERRING PROVIDER: Vikki Bailey [id number] [place] [address] The patient was referred by the above [...] which included preparing to see the patient, [id number] patient care, completing clinical documentation, obtaining and/or reviewing separately obtained history, counseling and educating the patient/family/caregiver, ordering medications, tests, or procedures, communicating with other HCPs (not separately reported), independently interpreting results (not separately reported), communicating results to the patient/family/caregiver, and care coordination (not separately reported). Sincerely, Mario Santiago MD 09/12/2023 CC: Vikki Bailey [id number] [id number] documented in this encounter [facility] 09-09-2023 Evaluation note Encounter Date Diagnosis Assessment Notes Sep, Hypokalemia (ICD-10 - E87.6) She has hypertension with hypokalemia and high 24-hour urinary aldosterone level consistent with primary hyperaldosteronism. Her 24-hour urinary potassium may be low due to the critically low serum potassium. She is also reported to have elevated serum aldosterone. She was seen by the endocrine at [facility] and now referred to the surgery [...] - E27.9) Continue follow-up with endocrine at [facility]. Sep, Other Patient was advised due to the primary hyperaldosteronism she can follow-up endocrine. She can refer to our office in future if needed. [employer] Other 02-02-2024 Miscellaneous Notes* Addendum Note - Valarie Wharton - 09/06/2023 8:59 AM ESTAddended by: VALARIE WHARTON on: 09/06/2023 08:59 AM Modules accepted: Orders * Telephone Encounter - Valraie Wharton - 09/06/2023 8:51 AM EST 09/06/2023 INTAKE PENDING.NEED 24HR URINE-LFT MSG ON VMX AND SENT MYCHART MSG. ENDOCRINE SURGERY PATIENT WORKSHEET Initial Call Date: September 06, 2023 Reason for Consult/ Referral: Adrenal Mass PATIENT DEMOGRAPHICS Name: Heidi Joy [facility]#: [id number] : 1990 AGE: [age] year old Contact Numbers: Home: (home) Work: There is no work phone number on file. PATIENT PHYSICIAN INFORMATION Referring Doctor: Address: Phone: Junior Marketing Associate: Address: Phone: PCP: Immanuel Kuhn [address] [place] [address] PAST TREATMENT Office notes: SEE EPIC Medications: [...] - 340.0 ug/dL 188.1 Imaging Reports: SEE [facility] CD of Images: SEE [facility] FNA: no FNA Slides: N/A Has the patient ever had thyroid or parathyroid surgery before: No Operative Reports: NONE AVAILABLE Pathology Reports: NONE AVAILABLE [facility] Instructions* Patient Instructions* Vikki Bailey MD - 08/20/2023 2:03 PM [...] me know documented [facility] History of Present illness Narrative* Vikki Bailey MD - 08/20/2023 1:43 PM EST Endocrinology and Metabolism [place] Initial Clinic Visit Note Virtual Visit (Audio/Visual) I have discussed the nature of this visit with the patient which will occur via [facility] (Phone, Virtual Visit) and he agrees to proceed with this interaction . I have communicated my name and active licensure. The patient's identity and physical location wereverified at the time of this visit. Either the patient or their legal agricultural sales representative has been informed of the risks and benefits of -- and alternatives to -- treatment through a remote evaluation andconsents to proceed with the evaluation remotely. NAME: Heidi Joy is a 33 year old old female PCP: Immaneul Kuhn DO Requesting Provider: No referring provider [...] and nephrology. She recently met with a sales agent fire insurance and was recommended to undergo some work-up. [...] the labs done at [facility], I provided her with the lab phone number to make an appointment. Vikki Bailey MD [facility] Endocrinology and Metabolism [place] [facility] [phone] Medical Decision Making: Problems: Moderate: 1+ chronic illnesses with change Data: Unique source(s) for external note(s) reviewed: 1 Unique test result(s) reviewed: 3+ Unique test(s) ordered: 3+ Medical Decision Making Level: 4 - Moderate documented in [facility] Evaluation note* Encounter Date Diagnosis Assessment [...] of the adrenal nodule with serial imaging. [employer] Other 04-03-2023 NoteIn person visit Chief complaint: follow up for prior right frontal glioma JACKSON: 32 y/o woman - she had prior [...] repeat MRI brain w/wout contrast. Ravindra Lema [facility]DC[facility] NoteIn person visit Chief complaint: known olidodendroglioma JACKSON: 32 y/o Left handed - she does not work. 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 She had migraines and high blood pressure [...] after the MRI is completed. Ravindra Lema MDUnSycamore Medical CenterChief complaint Narrative - ReportedHEIDI JOY is being seen for a consultation for. POC Dr. Benson, [facility] Bariatrics- Bariatric sxMP-[place] [facility] DO Work Phone: Evaluation + Plan note No data available for this section [facility] Evaluation noteNo assessment information available [facility] Work Phone: Evaluation noteNo InformationNosoutheast missouri community treatment [facility] [employer] Other Evaluation note* Diagnosis Adenoma of left adrenal gland- Primary Benign neoplasm of adrenal gland documented [facility] encounter [facility]* Diagnosis Adenoma of left adrenal gland- Primary Benign neoplasm of adrenal gland documented in this encounter [facility]* Diagnosis Primary hyperaldosteronism (HCC)- Primary Hyperaldosteronism, unspecified Adenoma of left adrenal gland Benign neoplasm of adrenal gland documented in this encounter [facility]* Diagnosis Generalized anxiety disorder (CMS/HCC) Generalized anxiety disorder Bipolar affective disorder, currently depressed, mild (CMS/HCC) Bipolar I disorder, most recent episode (or current) depressed, mild documented in this encounter [facility]* Diagnosis Acute bronchitis, unspecified organism- Primary documented in this encounter [facility]* Diagnosis Adenoma of left adrenal gland- Primary Benign neoplasm of adrenal gland Adenoma of left adrenal gland Benign neoplasm of adrenal gland documented in this encounter [facility]* Diagnosis Primary hyperaldosteronism (HCC)- Primary Hyperaldosteronism, unspecified Adenoma of left adrenal gland Benign neoplasm of adrenal gland documented in this encounter [facility]* Diagnosis Pre-op evaluation- Primary Preoperative examination, [...] Assessment & Plan Note - Bhavna Walters APRN.[employer] URN ATTENDANT - 12/06/2023 9:46 AM EDTAssociated Problem(s): History [...] Imitrex as needed documented in this encounter [facility] note* Diagnosis Chronic hypokalemia- Primary Hypopotassemia Adenoma of left adrenal gland Benign neoplasm of adrenal gland Primary hyperaldosteronism (HCC) Hyperaldosteronism, unspecified Uncontrolled hypertension Unspecified essential hypertension Hypertension secondary to endocrine disorders Other secondary hypertension, unspecified History of bariatric surgery Bariatric surgery status documented in this encounter [facility] note* Diagnosis Chronic hypokalemia- Primary Hypopotassemia documented in this encounter [facility] note* Diagnosis Pre-op evaluation- Primary Preoperative [...] of pre-op instructions. [facility]* Diagnosis Chronic hypokalemia- Primary Hypopotassemia Primary hyperaldosteronism (HCC) Hyperaldosteronism, unspecified Uncontrolled hypertension Unspecified essential hypertension documented [facility] this [facility]* Diagnosis Secondary adrenal insufficiency (HCC)- Primary Glucocorticoid deficiency Primary hyperaldosteronism (HCC) Hyperaldosteronism, unspecified Adenoma of left adrenal gland Benign neoplasm of adrenal gland documented in this [facility]* Diagnosis Primary hyperaldosteronism (HCC)- Primary Hyperaldosteronism, unspecified [facility]* Diagnosis Pre-op evaluation- Primary Preoperative [...] Primary Glucocorticoid deficiency documented in this encounter [facility] note* Diagnosis Pre-op evaluation- Primary Preoperative [...] Primary Glucocorticoid deficiency [facility]* Diagnosis Generalized anxiety disorder (CMS/HCC) Generalized anxiety disorder Bipolar affective disorder, currently depressed, mild (CMS/HCC) Bipolar I disorder, most recent episode (or current) depressed, mild [facility]* Diagnosis Anxiety Anxiety state, unspecified [facility]* Diagnosis Bipolar affective disorder, currently depressed, mild ([facility] Primary Bipolar I disorder, most recent episode (or current) depressed, mild LUISITO (generalized anxiety disorder) ([facility]) Generalized anxiety disorder Irritable bowel syndrome with both constipation and diarrhea Anastomotic ulcer Gastrojejunal ulcer, unspecified as acute or chronic, without mention of hemorrhage, perforation, or obstruction [facility]* Diagnosis , unspecified gestational age- Primary Missed menses [facility]* Diagnosis Generalized anxiety disorder ([facility]) Generalized anxiety disorder Bipolar affective disorder, currently depressed, mild ([facility]) Bipolar I disorder, most recent episode (or current) depressed, mild [facility]* Diagnosis Viral illness- Primary Unspecified viral infection, in conditions classified elsewhere and of unspecified site Pharyngitis, unspecified etiology [facility]* Diagnosis Generalized anxiety disorder ([facility]) Generalized anxiety disorder Bipolar affective disorder, currently depressed, mild ([facility]) Bipolar I disorder, most recent episode (or current) depressed, mild [facility]* Diagnosis Encounter for supervision of normal first in first trimester Encounter for drug screening care, antepartum Encounter for screening for chromosomal anomalies Screening for genetic disease carrier status documented [facility]* Diagnosis Vaginal bleeding during Encounter for supervision of normal first in first trimester Miscarriage Unspecified spontaneous without mention of complication [facility]* Diagnosis Generalized anxiety disorder ([facility]) Generalized anxiety disorder Bipolar affective disorder, currently depressed, mild ([facility]) Bipolar I disorder, most recent episode (or current) depressed, mild documented [facility]* Diagnosis Generalized anxiety disorder ([facility]) Generalized anxiety disorder Bipolar affective disorder, currently depressed, mild ([facility]) Bipolar I disorder, most recent episode (or current) depressed, mild documented [facility]* Diagnosis Primary insomnia- Primary Persistent disorder of initiating or maintaining sleep Anastomotic ulcer Gastrojejunal ulcer, unspecified as acute or chronic, without mention of hemorrhage, perforation, or obstruction Bipolar affective disorder, currently depressed, mild ([facility]) Bipolar I disorder, most recent episode (or current) depressed, mild Constipation, unspecified constipation type documented [facility]* Diagnosis Generalized anxiety disorder ([facility]) Generalized anxiety disorder Bipolar affective disorder, currently depressed, mild ([facility]) Bipolar I disorder, most recent episode (or current) depressed, mild [facility]* Diagnosis Generalized anxiety disorder ([facility]) Generalized anxiety disorder Bipolar affective disorder, currently depressed, mild ([facility]) Bipolar I disorder, most recent episode (or current) depressed, mild documented [facility]* Diagnosis Generalized anxiety disorder ([facility]) Generalized anxiety disorder Bipolar affective disorder, currently depressed, mild ([facility]) Bipolar I disorder, most recent episode (or current) depressed, mild documented [facility]* Diagnosis Bipolar affective disorder, currently depressed, mild ([facility]) Bipolar I disorder, most recent episode (or current) depressed, mild Primary insomnia Persistent disorder of initiating or maintaining sleep documented [facility]* Diagnosis Generalized anxiety disorder ([facility]) Generalized anxiety disorder Bipolar affective disorder, currently depressed, mild ([facility]) Bipolar I disorder, most recent episode (or current) depressed, mild documented [facility]* Diagnosis Primary insomnia Persistent disorder of initiating or maintaining sleep documented [facility]* Diagnosis Nausea and vomiting, unspecified vomiting type- Primary Vaginal astrid Candidiasis of vulva and vagina documented [facility]* Diagnosis Generalized anxiety disorder ([facility]) Generalized anxiety disorder Bipolar affective disorder, currently depressed, mild ([facility]) Bipolar I disorder, most recent episode (or current) depressed, mild documented [facility]* Diagnosis Primary hypertension ([facility])- Primary Unspecified essential hypertension Primary hyperaldosteronism ([facility]) LUISITO (generalized anxiety disorder) ([facility]) Generalized anxiety disorder documented [facility]* Diagnosis Primary insomnia Persistent disorder of initiating or maintaining sleep documented [facility]* Diagnosis Anxiety- Primary Anxiety state, unspecified Rash Rash and other nonspecific skin eruption documented [facility]* Diagnosis Major depressive disorder, single episode, moderate (HCC) ([facility])- Primary Major depressive disorder, single episode, moderate Primary insomnia Persistent disorder of initiating or maintaining sleep Type 2 diabetes mellitus with diabetic polyneuropathy ([facility]) documented [facility]* Diagnosis Generalized anxiety disorder ([facility]) Generalized anxiety disorder Bipolar affective disorder, currently depressed, mild ([facility]) Bipolar I disorder, most recent episode (or current) depressed, mild documented [facility]* Diagnosis Gastroesophageal reflux disease with esophagitis without hemorrhage documented [facility]* Diagnosis LUISITO (generalized anxiety disorder) ([facility]) Generalized anxiety disorder documented [facility]* Diagnosis Acute cough- Primary Viral URI with cough Primary insomnia Persistent disorder of initiating or maintaining sleep Anxiety Anxiety state, unspecified Influenza A Influenza with other respiratory manifestations documented [facility]* Diagnosis Generalized anxiety disorder ([facility]) Generalized anxiety disorder Bipolar affective disorder, currently depressed, mild ([facility]) Bipolar I disorder, most recent episode (or current) depressed, mild documented [facility]* Diagnosis Bipolar affective disorder, currently depressed, mild ([facility])- Primary Bipolar I disorder, most recent episode (or current) depressed, mild Primary insomnia Persistent disorder of initiating or maintaining sleep Bariatric surgery status Major depressive disorder, single episode, moderate (HCC) ([facility]) Major depressive disorder, single episode, moderate LUISITO (generalized anxiety disorder) ([facility]) Generalized anxiety disorder Neuropathy Mononeuritis of unspecified site documented [facility]* Diagnosis Iron deficiency anemia, unspecified iron deficiency anemia type- Primary documented in [facility]* Diagnosis Hammer toe of right foot- Primary Corns and callosities Pain in both feet documented [facility]* Diagnosis Generalized anxiety disorder Generalized anxiety disorder Bipolar affective disorder, currently depressed, mild (HCC) Bipolar I disorder, most recent episode (or current) depressed, mild documented [facility]* Diagnosis Generalized anxiety disorder Generalized anxiety disorder Bipolar affective disorder, currently depressed, mild (HCC) Bipolar I disorder, most recent episode (or current) depressed, mild documented [facility]* Diagnosis Iron deficiency anemia, unspecified iron deficiency anemia type- Primary Primary insomnia Persistent disorder of initiating or maintaining sleep Bariatric surgery status Bipolar affective disorder, currently depressed, mild (HCC) Bipolar I disorder, most recent episode (or current) depressed, mild documented [facility]* Diagnosis Generalized anxiety disorder Generalized anxiety disorder Bipolar affective disorder, currently depressed, mild (HCC) Bipolar I disorder, most recent episode (or current) depressed, mild documented [facility]* Diagnosis Bipolar affective disorder, currently depressed, mild (HCC)- Primary Bipolar I disorder, most recent episode (or current) depressed, mild Iron deficiency anemia, unspecified iron deficiency anemia type Primary insomnia Persistent disorder of initiating or maintaining sleep Bariatric surgery status documented [facility]* Diagnosis Generalized anxiety disorder Generalized anxiety disorder Bipolar affective disorder, currently depressed, mild (HCC) Bipolar I disorder, most recent episode (or current) depressed, mild documented [facility]* Diagnosis Tailor's bunion of both feet- Primary Corns and callosities Pain in both feet documented [facility]* Diagnosis Anxiety Anxiety state, unspecified Primary insomnia Persistent disorder of initiating or maintaining sleep documented [facility]* Diagnosis Generalized anxiety disorder Generalized anxiety disorder Bipolar affective disorder, currently depressed, mild (HCC) Bipolar I disorder, most recent episode (or current) depressed, mild documented [facility]* Diagnosis Neuropathy- Primary Mononeuritis of unspecified site Major depressive disorder, single episode, moderate (HCC) Major depressive disorder, single episode, moderate Anxiety Anxiety state, unspecified documented [facility]* Diagnosis Tailor's bunion of both feet- Primary Corns and callosities Pain in both feet documented [facility]* Diagnosis Tailor's bunion of both feet- Primary Corns and callosities Pain in both feet documented [facility]* Diagnosis Nausea- Primary Nausea alone Iron deficiency anemia, unspecified iron deficiency anemia type Gastroesophageal reflux disease with esophagitis without hemorrhage Neuropathy Mononeuritis of unspecified site Anastomotic ulcer Gastrojejunal ulcer, unspecified as acute or chronic, without mention of hemorrhage, perforation, or obstruction Primary insomnia Persistent disorder of initiating or maintaining sleep documented [facility] [...] GASTRIC BYPASS 12/2022 Hospitalization History SEE ABOVE [employer] Other [facility] general Narrative - Reported* Type Description Date [...] BRAIN Medical History Potassium infusions weekly at [facility] Surgical History brain tumor removed malignant 0 -2018 Surgical History DILATION AND CURETTAGE ESOPHAGO GASTRODUODENOSCOPY Surgical History INGROWN TOENAIL Surgical History ANKLE SCOPE PLANTAR FASCIOTOMY 2017 Surgical History RIGHT FRONTAL LOBEECTOMY 2019 Surgical History ENDOSCOPIC PLANTAR FASCIOTOMY 2 023 Surgical History GASTRIC BYPASS 12/2022 Hospitalization History SEE [facility] Hospitalization History [place] for low potassi um 08/2023 [facility] [employer] Other History of Present illness Narrative* Patient [...] medication 9 4. Follow-up in 9 months -[facility] [place] [address] DO Work Phone: History of Present illness Narrative* Rea Bragg MA - 06/09/2024 12:45 PM EST Images from the original note were not included. Esther Angeles MD Obstetrics and Gynecology Patient: Heidi Joy : 1990 (33 y.o.) Exam Date: 06/09/2024 Reason for Visit - Chief Complaint Patient presents with MAB Quant on 06/08/24 was 193 Quant orders placed for today. In house US done. The patient reports that her last hCG level was 193, and on the , it was 1000, indicating a decrease. She mentions that her bleeding has slowed down to just spotting and expects it to be gone within the next week. The patient experienced severe cramping, heavy bleeding, and passage of clots on Saturday, but the bleeding has since improved. She is not currently on any antibiotics. The patient has a history of Rh-negative blood type and received a Rhogam shot on Saturday. She inquires about the shot's duration and its implications for future pregnancies. The patient describes herrecent miscarriage as traumatic, particularly due to the heavy bleeding and passing clots. She has never had a positive and has been told she would have difficulty conceiving. The patient expresses nervousness about future pregnancies and the potential complications related to her Rh-negative blood type. She is currently attending counseling and plans to discuss her recentmiscarriage with her counselor. The patient is aware of her ovulation pattern and anticipates her next period in approximately 6 weeks. Visit Vitals LMP 04/11/2024 Unknown OB Status Recent Smoking Status Every Day History of Present Illness, Associated Treatments and Results - OB History Para Term AB Living 1 0 0 0 0 0 SAB IAB Ectopic Multiple Live Births 0 0 0 0 0 # Outcome Date GA Lbr Zane/2nd Weight Sex Type Anes PTL Lv 1 Constitutional: Negative. HENT: Negative. Eyes: Negative. Respiratory: Negative. Cardiovascular: Negative. Gastrointestinal: Negative. Endocrine: Negative. Genitourinary: Negative. Musculoskeletal: Negative. Skin: Negative. Allergic/Immunologic: Negative. Neurological: Negative. Hematological: Negative. Psychiatric/Behavioral: Negative. No Known Allergies Current Outpatient Medications: multivitamin () 27-0.8 MG tablet, Take 1 tablet by mouth Daily, Disp: 90 tablet, Rfl: 2 ondansetron ODT (Zofran-ODT) 4 MG disintegrating tablet, Take 1 tablet (4 mg) by mouth every 8 (eight) hours if needed for nausea or vomiting, Disp: 30 tablet, Rfl: 1 pyridoxine (Vitamin B-6) 50 MG tablet, Take 1 tablet (50 mg) by mouth Daily, Disp: 90 tablet, Rfl: 3 Past Medical History: Diagnosis Date 1st degree AV block Abnormal ECG 07/31/2022 Bipolar 1 disorder (CMS/HCC) Depression (CMS/HCC) Diabetes (CMS/HCC) Patient reports no longer diabetic Fracture of left foot Glioma (CMS/HCC) 07/21/2018 Glioma of brain (CMS/HCC) Hospitalization or health care facility admission within last 6 months 09/2022 [facility] Hypokalemia (2.9, 2.4) Sent by [employer]ician for K+ infusion. Hx of being hospitalized 08/19/2018 Adm Zaragoza - Discharged 08/22/2018 Brain tumor Hx of being hospitalized 06/2018 [facility] admit 06/10/2018 discharged HTN , Brain tumor Hypertension (CMS/HCC) Kidney stones Malignant brain tumor (CMS/HCC) 08/2018 malignant brain tumor right frontal area, Dr. Lema Mal[facility] 06/17/2018 Menorrhagia with irregular cycle 02/21/2023 Oligodendroglioma ([facility]) 2017 Otalgia of right ear PCOS (polycystic ovarian syndrome) Plantar fasciitis of left foot Past Surgical History: Procedure Laterality Date ADRENALECTOMY 01/2024 DILATION AND CURETTAGE 02/2020 dc with hysteroscopy ESOPHAGOGASTRODUODENOSCOPY 2021 EXCISION INGROWN TOENAIL 10/2021 ingrown toe nails GASTRIC BYPASS 2022 IR INTERVENTION VENOUS SAMPLING 10/23/2023 IR INTERVENTION VENOUS SAMPLING OTHER SURGICAL HISTORY 08/2018 r/o brain tumor (glioblastoma?) AL ANKLE SCOPE,PLANTAR FASCIOTOMY 03/2017 AL CRANIECT/CRANIOT W/WO DURAPLASTY W/LOBECTOMY 2019 removal - right frontal lobe AL ENDOSCOPIC PLANTAR FASCIOTOMY Right 2022 Right EPF Family History Problem Relation Name Age of Onset Diabetes Mother Hypertension Mother Thyroid cancer Mother Depression Mother Diabetes Father Heart disease Father Hypertension Father Diabetes Brother Hypertension Brother Depression Brother Lung cancer Maternal Grandmother Cancer Maternal Grandfather Lung cancer Paternal Grandmother Melanoma Neg Hx Social History Tobacco Use Smoking Status Every Day Current packs/day: 0.00 Types: Cigarettes Last attempt to quit: 08/05/2022 Years since quittin.8 Smokeless Tobacco Never Tobacco Comments Cessation discussed Physical Exam - General appearance, mentation, extraocular movements, facial strength and movement, hearing, upper and lower extremity strength and tone, sensation to gross testing, coordination, and gait are normalor at baseline unless noted below. OBGyn Exam Assessment/Plan ICD-10-CM 1. Vaginal bleeding during O46.90 2. Encounter for supervision of normal first in first trimester Z34.01 3. Miscarriage O03.9 1. Spontaneous : - Patient experienced heavy bleeding, cramping, and passage of clots, which has now slowed down to spotting - Ultrasound shows good endometrial lining with no issues - Plan: a) Prescribe antibiotics to prevent infection. b) Advise the patient that they can start trying to conceive again if desired. c) Monitor for any further complications. 2. Rh-negative blood type: - Patient received Rhogam shot on Saturday due to bleeding and concerns about Rh incompatibility - Plan: a) Educate the patient on the importance of the Rhogam shot and its duration of action (3 months). b) Instruct the patient to go to the emergency room if bleeding occurs during future pregnancies. c) Instruct the patient to contact the clinic if the shot is not administered. 3. Emotional well-being: - Patient expressed feelings of trauma and anxiety related to the spontaneous and concernsabout future pregnancies - Plan: a) Encourage the patient to discuss their feelings with their counselor during their upcoming appointment. b) Offer additional support and resources as needed. 4. Follow-up care: - Plan: a) Schedule a follow-up appointment in 4 weeks to ensure the patient's recovery. b) Perform a Pap smear during the follow-up appointment. c) Monitor for any complications or concerns during this time. [facility] Additional Instructions Keep your appt with [facility] Work Phone: Hospital Discharge instructions No data available for this section [facility] Progress note No data available for this section [facility] Reason for referral (narrative)* Outpatient Procedure (Routine) - Pending Review Specialty Diagnoses / Procedures Referred By Omari ochoa [facility] Diagnoses Pre-op evaluation Iron deficiency Migraine with aura and without status migrainosus, not intractable Procedures ECG COMPLETE ECG ROUTINE ECG W/LEAST 12 LDS W/I&R Bhavna Walters, BALLASTER.COFFEE URN ATTENDANT [address] [place] [address] [facility] [address] [place] [address] Referral ID Status Reason Start Date Expiration Date Visits Requested Visits Authorized [id number] Pending Review Auto-Generat ed Referral 12/06/2023 12/05/2024 1 1 [facility] Summary Purpose Family History No Family [...] PACC - PRE ANESTHESIA CONSULTATION CLINIC OFFICE/OUTPATIENT [facility] 60 MINUTES Natasha Chase MD [address] [place] [address] Referral ID Status Reason Start Date Expiration Date Visits Requested Visits Authorized [id number] Authorized PCP Requested Referral 11/12/2023 11/04/2024 1 1 Additional Source Comments INFORMATION SOURCE (unrecogn ized section and content) DATE CREATED AUTHOR 01/29/2018 [facility] DATE CREATED AUTHOR AUTHOR'S ORGANIZ ATION 03/21/2020 [facility] DATE CREATED AUTHOR AUTHOR'S ORGANIZ ATION 10/06/2021 [facility] dical Specialist DATE CREATED AUTHOR AUTHOR'S ORGANIZ ATION 06/07/2022 [facility] DATE CREATED AUTHOR AUTHOR'S ORGANIZ ATION 11/19/2022 [facility] DATE CREATED AUTHOR AUTHOR'S ORGANIZ ATION 12/14/2022 [facility] DATE CREATED AUTHOR AUTHOR'S ORGANIZ ATION 03/19/2023 [facility] DATE CREATED AUTHOR AUTHOR'S ORGANIZ ATION 03/02/2024 [facility] DATE CREATED AUTHOR AUTHOR'S ORGANIZ ATION 03/29/2024 [facility] DATE CREATED AUTHOR AUTHOR'S ORGANIZ ATION 04/14/2024 [facility] DATE CREATED AUTHOR AUTHOR'S ORGANIZ ATION 09/13/2024 [facility] DATE CREATED AUTHOR AUTHOR'S ORGANIZ ATION 04/20/2025 [facility] dical Specialists [facility] Care Teams (unrecognized sec tion and content) Team Status: Inactive Member Role Status Dates Immanuel Kuhn DO Primary Care Provider Active Tiarra Prakash NP-C Attending Provider Active Team Status: Active Member Role Status Dates Immanuel Kuhn DO Primary Care Provider Active Team Status: Inactive Member Role Status Dates Immanuel Kuhn DO Primary Care Provider Active Manasa Rhodes DPM Attending Provider Active [employer] Photographer Relationship Specialty Start Date End Date Immanuel Kuhn DO [address] [place] [address] PCP - General Family Medicine 10/23/12 Esther Angeles MD [address] [place] [address] Referring Obstetrics 01/28/20 Татьяна Carter PA-C [address] [place] [address] Referring Physician Cooling Room Attendant 08/08/23 Team Status: Inactive Member Role Status Dates Zara Ralph MD Attending Provider Active Start : August 19, 2023 End: August 19, 2023 Team Status: Inactive Member Role Status Dates Immanuel Kuhn DO Primary Care Provider Active St art: August 30, 2023 End: August 30, 2023 Zara Ralph MD Attending Provider Active Start : August 30, 2023 End: August 30, 2023 Wild Life Photographer Relationship Specialty Start Date End Date Immanuel Kuhn DO [address] [place] [address] PCP - General Family Medicine 10/23/12 Esther Angeles MD [address] [place] [address] Referring Obstetrics 01/28/20 Татьяна Carter, GRISELC [address] [place] [address] Referring Physician Cooling Room Attendant 08/08/23 Wild Life Photographer Relationship Specialty Start Date End Date Immanuel Kuhn DO [address] [place] [address] PCP - General Family Medicine 10/23/12 Esther Angeles MD [address] [place] [address] Referring Obstetrics 01/28/20 Татьяна Carter, ANDRIY-C [address] [place] [address] Referring Physician Cooling Room Attendant 08/08/23 Wild Life Photographer Relationship Specialty Start Date End Date Immanuel Kuhn DO [address] [place] [address] PCP - General Family Medicine 12/25/22 Татьяна Carter PA [address] [place] [address] PCP - [facility] 02/02/23 Wild Life Photographer Relationship Specialty Start Date End Date Immanuel Kuhn DO [address] [place] [address] PCP - General Family Medicine 10/23/12 Esther Angeles MD [address] [place] [phone] Referring Obstetrics 01/28/20 Татьяна Carter, PA-C [address] [place] [address] Referring Physician Cooling Room Attendant 08/08/23 Wild Life Photographer Relationship Specialty Start Date End Date Immanuel Kuhn DO [address] [place] [address] PCP - General [facility] 12/25/22 Татьяна Carter PA [address] [place] [address] PCP - [facility] 02/02/23 Wild Life Photographer Relationship Specialty Start Date End Date Immanuel Kuhn DO [address] [place] [address] PCP - General Family [facility] 12/25/22 Татьяна Carter PA [address] [place] [address] PCP - [facility] 02/02/23 Wild Life Photographer Relationship Specialty Start Date End Date Immanuel Kuhn DO [address] [place] [address] PCP - General [facility] 12/25/22 Татьяна Carter PA [address] [place] [address] PCP - [facility] 02/02/23 Wild Life Photographer Relationship Specialty Start Date End Date Immanuel Kuhn DO [address] [place] [address] PCP - General Family Medicine 10/23/12 Esther Angeles MD [address] [place] [address] Referring Obstetrics 01/28/20 Татьяна Carter PA-C [address] [place] [address] Referring Physician Cooling Room Attendant 08/08/23 Wild Life Photographer Relationship Specialty Start Date End Date Immanuel Kuhn DO [address] [place] [address] PCP - General Family Medicine 10/23/12 Esther Angeles MD [address] [place] [address] Referring Obstetrics 01/28/20 Татьяна Carter PA-C [address] [place] [address] Referring Physician Cooling Room Attendant 08/08/23 Wild Life Photographer Relationship Specialty Start Date End Date Immanuel Kuhn DO [address] [place] [address] PCP - General Family Medicine 10/23/12 Esther Angeles MD [address] [place] [address] Referring Obstetrics 01/28/20 Татьяна Carter PA-C [address] [place] [address] Referring Physician Cooling Room Attendant 08/08/23 Wild Life Photographer Relationship Specialty Start Date End Date Immanuel Kuhn DO [address] [place] [address] PCP - General Family Medicine 10/23/12 Esther Angeles MD [address] [place] [address] Referring Obstetrics 01/28/20 Татьяна Carter PA-C [address] [place] [address] Referring Physician Cooling Room Attendant 08/08/23 Wild Life Photographer Relationship Specialty Start Date End Date Immanuel Kuhn DO [address] [place] [address] PCP - General Family Medicine 10/23/12 Esther Angeles MD [address] [place] [address] Referring Obstetrics 01/28/20 Татьяна Carter PA-C [address] [place] [address] Referring Physician Cooling Room Attendant 08/08/23 Wild Life Photographer Relationship Specialty Start Date End Date Immanuel Kuhn DO [address] [place] [address] PCP - General Family Medicine 10/23/12 Esther Angeles MD [address] [place] [address] Referring Obstetrics 01/28/20 Татьяна Carter PA-C [address] [place] [address] Referring Physician Cooling Room Attendant 08/08/23 Wild Life Photographer Relationship Specialty Start Date End Date Immanuel Kuhn DO [address] [place] [address] PCP - General Family Medicine 10/23/12 Esther Angeles MD [address] [place] [address] Referring Obstetrics 01/28/20 Татьяна Carter PA-C [address] [place] [address] Referring Physician Cooling Room Attendant 08/08/23 Wild Life Photographer Relationship Specialty Start Date End Date Immanuel Kuhn DO [address] [place] [address] PCP - General Family Medicine 10/23/12 Esther Angeles MD [address] [place] [address] Referring Obstetrics 01/28/20 Татьяна Carter PA-C [address] [place] [address] Referring Physician Cooling Room Attendant 08/08/23 Wild Life Photographer Relationship Specialty Start Date End Date Immanuel Kuhn DO [address] [place] [address] PCP - General Family Medicine 10/23/12 Esther Angeles MD [address] [place] [address] Referring Obstetrics 01/28/20 Татьяна Carter, PA-C [address] [place] [address] Referring Physician Cooling Room Attendant 08/08/23 Wild Life Photographer Relationship Specialty Start Date End Date Immanuel Kuhn DO [address] [place] [address] PCP - General Family Medicine 10/23/12 Esther Angeles MD [address] [place] [address] Referring Obstetrics 01/28/20 Татьяна Carter, PA-C [address] [place] [address] Referring Physician Cooling Room Attendant 08/08/23 Wild Life Photographer Relationship Specialty Start Date End Date Immanuel Kuhn DO [address] [place] [address] PCP - General Family Medicine 10/23/12 Esther Angeles MD [address] [place] [address] Referring Obstetrics 01/28/20 Татьяна Carter, PAArunC [address] [place] [address] Referring Physician Cooling Room Attendant 08/08/23 Wild Life Photographer Relationship Specialty Start Date End Date Immanuel Kuhn DO [address] [place] [address] PCP - General Family Medicine 10/23/12 Esther Angeles MD [address] [place] [address] Referring Obstetrics 01/28/20 Татьяна Carter PA-C [address] [place] [address] Referring Physician Cooling Room Attendant 08/08/23 Wild Life Photographer Relationship Specialty Start Date End Date Immanuel Kuhn DO [address] [place] [address] PCP - General Family Medicine 10/23/12 Esther Angeles MD [address] [place] [address] Referring Obstetrics 01/28/20 Татьяна Carter, PAAamir [address] [place] [address] Referring Physician Cooling Room Attendant 08/08/23 Team Status: Inactive Member Role Status Dates Immanuel Kuhn DO Primary Care Provider Active St art: February 21, 2024 End: February 21, 2024 Eliot Dawson APRN Emergency Provider Active Start: February 21, 2024 End: February 21, 2024 Wild Life Photographer Relationship Specialty Start Date End Date Immanuel Kuhn DO [address] [place] [address] PCP - General Family Medicine 10/23/12 Esther Angeles MD [address] [place] [address] Referring Obstetrics 01/28/20 Татьяна Carter PA-C [address] [place] [address] Referring Physician Cooling Room Attendant 08/08/23 Wild Life Photographer Relationship Specialty Start Date End Date Immanuel Kuhn DO [address] [place] [address] PCP - General Family Medicine 10/23/12 Esther Angeles MD [address] [place] [address] Referring Obstetrics 01/28/20 Татьяна Carter PA-C [address] [place] [address] Referring Physician Cooling Room Attendant 08/08/23 Wild Life Photographer Relationship Specialty Start Date End Date Immanuel Kuhn DO [address] [place] [address] PCP - General Family Medicine 12/25/22 Татьяна Carter PA [address] [place] [address] PCP - [facility] 02/03/24 Wild Life Photographer Relationship Specialty Start Date End Date Immanuel Kuhn DO [address] [place] [address] PCP - General Family Medicine 12/25/22 Татьяна Carter PA [address] [place] [address] PCP - [facility] 02/03/24 Wild Life Photographer Relationship Specialty Start Date End Date Immanuel Kuhn DO [address] [place] [address] PCP - General Family Medicine 12/25/22 Татьяна Carter, PA [address] [place] [address] PCP - [facility] 02/03/24 Wild Life Photographer Relationship Specialty Start Date End Date Immanuel Kuhn DO [address] [place] [address] PCP - General Family [facility] 12/25/22 Татьяна Carter, PA [address] [place] [address] PCP - [facility] 02/03/24 Wild Life Photographer Relationship Specialty Start Date End Date Immanuel Kuhn DO [address] [place] [address] PCP - General Family [facility] 12/25/22 Татьяна Carter, PA [address] [place] [address] PCP - [facility] 02/03/24 Wild Life Photographer Relationship Specialty Start Date End Date Immanuel Kuhn DO [address] [place] [address] PCP - General Family [facility] 12/25/22 Татьяна Carter, PA [address] [place] [address] PCP - [facility] 02/03/24 Wild Life Photographer Relationship Specialty Start Date End Date Immanuel Kuhn DO [address] [place] [address] PCP - General Family [facility] 12/25/22 Татьяна Carter, PA [address] [place] [address] PCP - [facility] 02/03/24 Wild Life Photographer Relationship Specialty Start Date End Date Immanuel Kuhn DO [address] [place] [address] PCP - General Family [facility] 12/25/22 Татьяна Carter, PA [address] [place] [address] PCP - [facility] 02/03/24 Wild Life Photographer Relationship Specialty Start Date End Date Immanuel Kuhn DO [address] [place] [address] PCP - General Family [facility] 12/25/22 Татьяна Carter, PA [address] [place] [address] PCP - [facility] 02/03/24 Wild Life Photographer Relationship Specialty Start Date End Date Immanuel Kuhn DO [address] [place] [address] PCP - General Family [facility] 12/25/22 Татьяна Carter, PA [address] [place] [address] PCP - [facility] 02/03/24 Wild Life Photographer Relationship Specialty Start Date End Date Immanuel Kuhn, DO [address] [place] [address] PCP - General Family [facility] 12/25/22 Татьяна Carter, PA [address] [place] [address] PCP - [facility] 02/03/24 Wild Life Photographer Relationship Specialty Start Date End Date Immanuel Kuhn, DO [address] [place] [address] PCP - [facility] 12/25/22 Татьяна Carter, PA [address] [place] [address] PCP - [facility] 02/03/24 Wild Life Photographer Relationship Specialty Start Date End Date Immanuel Kuhn, DO [address] [place] [address] PCP - General Family [facility] 12/25/22 Eliot García DO [address] [place] [address] PCP - [facility] 05/05/24 Wild Life Photographer Relationship Specialty Start Date End Date Immanuel Kuhn DO [address] [place] [address] PCP - General Family [facility] 12/25/22 Eliot García DO [address] [place] [address] PCP - [facility] 05/05/24 Wild Life Photographer Relationship Specialty Start Date End Date Immanuel Kuhn, DO [address] [place] [address] PCP - General Family [facility] 12/25/22 Eliot García, DO [address] [place] [address] PCP - [facility] 05/05/24 Wild Life Photographer Relationship Specialty Start Date End Date Immanuel Kuhn, DO [address] [place] [address] PCP - [facility] 12/25/22 Eliot García, DO [address] [place] [address] PCP - [facility] 05/05/24 Wild Life Photographer Relationship Specialty Start Date End Date Immanuel Kuhn, DO [address] [place] [address] PCP - General Family Medicine 12/25/22 Eliot García, DO [address] [place] [address] PCP - [facility] 05/05/24 Wild Life Photographer Relationship Specialty Start Date End Date Immanuel Kuhn, DO [address] [place] [address] PCP - General Family [facility] 12/25/22 Eliot García, DO [address] [place] [address] PCP - [facility] 05/05/24 Wild Life Photographer Relationship Specialty Start Date End Date Immanuel Kuhn, DO [address] [place] [address] PCP - General Family [facility] 12/25/22 Eliot García, DO [address] [place] [address] PCP - [facility] 05/05/24 Wild Life Photographer Relationship Specialty Start Date End Date Immanuel Kuhn, DO [address] [place] [address] PCP - [facility] 12/25/22 Eliot García, DO [address] [place] [address] [facility] - [facility] 05/05/24 Wild Life Photographer Relationship Specialty Start Date End Date Immanuel Kuhn, DO [address] [place] [address] PCP - General Family [facility] 12/25/22 Eliot García, DO [address] [place] [address] PCP - [facility] 05/05/24 Wild Life Photographer Relationship Specialty Start Date End Date Immanuel Kuhn, DO [address] [place] [address] PCP - General Family [facility] 12/25/22 Татьяна Carter, PA [address] [place] [address] PCP - [facility] 02/03/24 Wild Life Photographer Relationship Specialty Start Date End Date Immanuel Kuhn, DO [address] [place] [address] PCP - General Family [facility] 12/25/22 Eliot García, DO [address] [place] [address] PCP - [facility] 05/05/24 Wild Life Photographer Relationship Specialty Start Date End Date Immanuel Kuhn, DO [address] [place] [address] PCP - [facility] 12/25/22 Татьяна Carter, PA [address] [place] [address] [facility] - [facility] 02/03/24 Wild Life Photographer Relationship Specialty Start Date End Date Immanuel Kuhn, DO [address] [place] [address] PCP - General Family [facility] 12/25/22 Татьяна Carter, PA [address] [place] [address] PCP - [facility] 02/03/24 [employer] Photographer Relationship Specialty Start Date End Date Immanuel Kuhn, DO [address] [place] [address] PCP - General Family [facility] 12/25/22 Татьяна Carter, PA [address] [place] [address] PCP - [facility] 02/03/24 Wild Life Photographer Relationship Specialty Start Date End Date Immanuel Kuhn, DO [address] [place] [address] PCP - General Family [facility] 12/25/22 Татьяна Carter, PA [address] [place] [address] PCP - [facility] 02/03/24 Wild Life Photographer Relationship Specialty Start Date End Date Immanuel Kuhn, DO [address] [place] [address] PCP - General Family [facility] 12/25/22 Eliot García, DO [address] [place] [address] PCP - [facility] 05/05/24 Wild Life Photographer Relationship Specialty Start Date End Date Immanuel Kuhn, DO [address] [place] [address] PCP - General Family Medicine 12/25/22 Eliot García, DO [address] [place] [address] PCP - [facility] 05/05/24 Sheila Braun, [facility] [address] [place] [address] Continuous Improvement [facility] 08/18/24 Wild Life Photographer Relationship Specialty Start Date End Date Immanuel Kuhn, DO [address] [place] [address] PCP - General Family Medicine 12/25/22 Eliot García, DO [address] [place] [address] PCP - [facility] 05/05/24 Sheila Braun, [facility] [address] [place] [address] Continuous Improvement Coach Behavior[facility] 08/18/24 Wild Life Photographer Relationship Specialty Start Date End Date Immanuel Kuhn, DO [address] [place] [address] PCP - General Family [facility] 12/25/22 Eliot García, DO [address] [place] [address] [facility] - [facility] 05/05/24 Sheila Braun, [facility] [address] [place] [address] Continuous Improvement Coach Behavior[facility] 08/18/24 Wild Life Photographer Relationship Specialty Start Date End Date Immanuel Kuhn, DO [address] [place] [address] PCP - General [facility] 12/25/22 Eliot García, DO [address] [place] [address] [facility] - [facility] 05/05/24 Sheila Braun, [facility] [address] [place] [address] Continuous Improvement Coach Behavior[facility] 08/18/24 Wild Life Photographer Relationship Specialty Start Date End Date Immanuel Kuhn, DO [address] [place] [address] PCP - General Family Medicine 12/25/22 Eliot García, DO [address] [place] [address] [facility] - [facility] 05/05/24 Sheila Braun, [facility] [address] [place] [address] Continuous Improvement Coach Behavior[facility] 08/18/24 Wild Life Photographer Relationship Specialty Start Date End Date Immanuel Kuhn, DO [address] [place] [address] PCP - General Family Medicine 12/25/22 Eliot García, DO [address] [place] [address] [facility] 05/05/24 Sheila Braun, [facility] [address] [place] [address] Continuous Improvement Coach Behavioral [facility] 08/18/24 Wild Life Photographer Relationship Specialty Start Date End Date Immanuel Kuhn, DO [address] [place] [address] PCP - General Family Medicine 12/25/22 Eliot García, DO [address] [place] [address] [facility] 05/05/24 Sheila Braun, [facility] [address] [place] [address] Continuous Improvement Coach Behavioral [facility] 08/18/24 Wild Life Photographer Relationship Specialty Start Date End Date Immanuel Kuhn, DO [address] [place] [address] PCP - General Family Medicine 12/25/22 Eliot García, DO [address] [place] [address] [facility] 05/05/24 Sheila Braun, [facility] [address] [place] [address] Continuous Improvement Coach Behavioral [facility] 08/18/24 Wild Life Photographer Relationship Specialty Start Date End Date Immanuel Kuhn, DO [address] [place] [address] PCP - General Family Medicine 12/25/22 Eliot García, DO [address] [place] [address] [facility] 05/05/24 Sheila Braun, [facility] [address] [place] [address] Continuous Improvement Coach Behavioral Health 08/18/24 Wild Life Photographer Relationship Specialty Start Date End Date Immanuel Kuhn, DO [address] [place] [address] PCP - General Family Medicine 12/25/22 Eliot García, DO [address] [place] [address] [facility] - [facility] 05/05/24 Sheila Braun, [facility] [address] [place] [address] Continuous Improvement Coach Behavioral Health 08/18/24 Wild Life Photographer Relationship Specialty Start Date End Date Immanuel Kuhn, DO [address] [place] [address] PCP - General Family Medicine 12/25/22 Eliot García, DO [address] [place] [address] [facility] - [facility] 05/05/24 Sheila Braun, [facility] [address] [place] [address] Continuous Improvement Coach Behavioral Health 08/18/24 Wild Life Photographer Relationship Specialty Start Date End Date Immanuel Kuhn, DO [address] [place] [address] PCP - General Family Medicine 12/25/22 Eliot García, DO [address] [place] [address] [facility] - [facility] 05/05/24 Sheila Braun, [facility] [address] [place] [address] Continuous Improvement Coach Behavioral [facility] 08/18/24 Wild Life Photographer Relationship Specialty Start Date End Date Immanuel Kuhn, DO [address] [place] [address] PCP - General Family Medicine 12/25/22 Eliot García, DO [address] [place] [address] PCP - [facility] 05/05/24 Sheila Braun, [facility] [address] [place] [address] Continuous Improvement Coach Behavioral Health 08/18/24 Wild Life Photographer Relationship Specialty Start Date End Date Immanuel Kuhn, DO [address] [place] [address] PCP - General Family Medicine 12/25/22 Eliot García, DO [address] [place] [address] [facility] - [facility] 05/05/24 Sheila Braun, [facility] [address] [place] [address] Continuous Improvement Coach Behavior[facility] 08/18/24 Wild Life Photographer Relationship Specialty Start Date End Date Immanuel Kuhn, DO [address] [place] [address] PCP - General Family Medicine 12/25/22 Eliot García, DO [address] [place] [address] [facility] - [facility] 05/05/24 Sheila Braun, [facility] [address] [place] [address] Continuous Improvement Coach Behavioral [facility] 08/18/24 Wild Life Photographer Relationship Specialty Start Date End Date Immanuel Kuhn, DO [address] [place] [address] PCP - General Family Medicine 12/25/22 Eliot García, DO [address] [place] [address] [facility] - [facility] 05/05/24 Sheila Braun, [facility] [address] [place] [address] Continuous Improvement Coach Behavioral Health 08/18/24 Nely Figueroa LSW [address] [place] [address] Continuous Improvement Coach Family Medicine 02/03/25 Wild Life Photographer Relationship Specialty Start Date End Date Immanuel Kuhn, DO [address] [place] [address] PCP - General Family Medicine 12/25/22 Eliot García, DO [address] [place] [address] [facility] 05/05/24 Sheila Braun, [facility] [address] [place] [address] Continuous Improvement Coach Behavioral Health 08/18/24 Nely Figueroa LSW [address] [place] [address] Continuous Improvement Coach Family Medicine 02/03/25 Wild Life Photographer Relationship Specialty Start Date End Date Immanuel Kuhn, DO [address] [place] [address] PCP - General Family Medicine 12/25/22 Eliot García, DO [address] [place] [address] [facility] - [facility] 05/05/24 Sheila Braun, [facility] [address] [place] [address] Continuous Improvement Coach Behavioral [facility] 08/18/24 Nely Figueroa LSW [address] [place] [address] Continuous Improvement Coach Family Medicine 02/03/25 Wild Life Photographer Relationship Specialty Start Date End Date Immanuel Kuhn, DO [address] [place] [address] PCP - General Family Medicine 12/25/22 Eliot García, DO [address] [place] [address] [facility] 05/05/24 Sheila Braun, [facility] [address] [place] [address] Continuous Improvement Coach Behavioral [facility] 08/18/24 Nely Figueroa LSW [address] [place] [address] Continuous Improvement Coach Family Medicine 02/03/25 Wild Life Photographer Relationship Specialty Start Date End Date Immanuel Kuhn, DO [address] [place] [address] PCP - General Family Medicine 12/25/22 Eliot García, DO [address] [place] [address] PCP - [facility] 05/05/24 Sheila Braun, [facility] [address] [place] [address] Continuous Improvement Coach Behavioral Health 08/18/24 Nely Figueroa LSW [address] [place] [address] Continuous Improvement Coach Family Medicine 02/03/25 Wild Life Photographer Relationship Specialty Start Date End Date Immanuel Kuhn, DO [address] [place] [address] PCP - General Family Medicine 12/25/22 Eliot García, DO [address] [place] [address] [facility] - [facility] 05/05/24 Sheila Braun, [facility] [address] [place] [address] Continuous Improvement Coach Behavioral Health 08/18/24 Nely Figueroa LSW [address] [place] [address] Continuous Improvement Coach Family Medicine 02/03/25 Wild Life Photographer Relationship Specialty Start Date End Date Immanuel Kuhn, DO [address] [place] [address] PCP - General Family Medicine 12/25/22 Eliot García, [address] [place] [address] [facility] - [facility] 05/05/24 Sheila Braun, [facility] [address] [place] [address] Continuous Improvement Coach Behavioral Health 08/18/24 Nely Figueroa LSW [address] [place] [address] Continuous Improvement Coach Family Medicine 02/03/25 Wild Life Photographer Relationship Specialty Start Date End Date Immanuel Kuhn, [address] [place] [address] PCP - General Family Medicine 12/25/22 Eliot García, DO [address] [place] [address] [facility] - [facility] 05/05/24 Sheila Braun, [facility] [address] [place] [address] Continuous Improvement Coach Behavioral Health 08/18/24 Nely Figueroa LSW [address] [place] [address] Continuous Improvement Coach Family Medicine 02/03/25 Wild Life Photographer Relationship Specialty Start Date End Date Immanuel Kuhn, DO [address] [place] [address] PCP - General Family Medicine 12/25/22 Eliot García, DO [address] [place] [address] [facility] 05/05/24 Sheila Braun, [facility] [address] [place] [address] Continuous Improvement Coach Behavioral Health 08/18/24 Nely Figueroa, [facility] [address] [place] [address] Continuous Improvement Coach Family Medicine 02/03/25 Wild Life Photographer Relationship Specialty Start Date End Date Immanuel Kuhn, [address] [place] [address] PCP - General Family Medicine 12/25/22 Eliot García, DO [address] [place] [address] [facility] 05/05/24 Shiela Braun, [facility] [address] [place] [address] Continuous Improvement Coach Behavioral Health 08/18/24 Nely Figueroa, [facility] [address] [place] [address] Continuous Improvement Coach Family Medicine 02/03/25 Wild Life Photographer Relationship Specialty Start Date End Date Immanuel Kuhn, [address] [place] [address] PCP - General Family Medicine 12/25/22 Eliot García, DO [address] [place] [address] [facility] - [facility] 05/05/24 Sheila Braun, [facility] [address] [place] [address] Continuous Improvement Coach Behavioral Health 08/18/24 Nely Figueroa LSW [address] [place] [address] Continuous Improvement Coach Family Medicine 02/03/25 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 Reason Comments Consult Specialty Diagnoses / Procedures Referred By Omari ochoa Referred To Contact ADMITTING Diagnoses Adenoma of left adrenal gland Procedures LAPAROSCOPY ADRENALECTOMY PARTIAL OR COM ROBOTIC LAPAROSCOPIC LEFT TRANSABDOMINAL ADRENALECTOMY [facility] [address] [place] [address] Referral ID Status Reason Start Date Expiration Date Visits Re quested Visits Authorized [id number] 1 1 Reason Comments Anesthesia Consult Reason Comments Follow Up Reason Comments F/U 6 Month Reason Comments ACTH Stim test Reason Onset Date Comments Med Refill 05/05/2024 Reason Comments Initial Visit Reason Comments MAB Reason Onset Date Comments Med Refill 03/25/2024 Reason Onset Date Comments Med Refill 04/22/2024 Reason Onset Date Comments Med Refill 11/05/2024 Reason Comments Med Refill Reason Onset Date Comments Med Refill 01/06/2025 Reason Onset Date Comments Med Refill 03/08/2025 Source Comments (unrecognize d section and content) In the event this informatio n is protected by the Federal Confidentiality of Alcohol and Drug Abuse Patient Records regulations: The Federal rules restrict any use of the information to criminally investigate or prosecute any alcohol or drug abuse patient.[facility] the event this information is protected by the Federal Confidentiality of Alcohol and Drug Abuse Patient Records regulations: The Federal rules restrict any use of the information to criminally investigate or prosecute any alcohol or drug abuse patient.[facility] HospitalIn the event this information is protected by the Federal Confidentiality of Alcohol and Drug Abuse Patient Records regulations: The Federal rules restrict any use of the information to criminally investigate or prosecute any alcohol or drug abuse patient.[facility] HospitalIn the event this information is protected by the Federal Confidentiality of Alcohol and Drug Abuse Patient Records regulations: The Federal rules restrict any use of the information to criminally investigate or prosecute any alcohol or drug abuse patient.[facility] HospitalIn the event this information is protected by the Federal Confidentiality of Alcohol and Drug Abuse Patient Records regulations: The Federal rules restrict any use of the information to criminally investigate or prosecute any alcohol or drug abuse patient.[facility] HospitalIn the event this information is protected by the Federal Confidentiality of Alcohol and Drug Abuse Patient Records regulations: The Federal rules restrict any use of the information to criminally investigate or prosecute any alcohol or drug abuse patient.[facility] HospitalIn the event this information is protected by the Federal Confidentiality of Alcohol and Drug Abuse Patient Records regulations: The Federal rules restrict any use of the information to criminally investigate or prosecute any alcohol or drug abuse patient.[facility] HospitalIn the event this information is protected by the Federal Confidentiality of Alcohol and Drug Abuse Patient Records regulations: The Federal rules restrict any use of the information to criminally investigate or prosecute any alcohol or drug abuse patient.[facility] HospitalIn the event this information is protected by the Federal Confidentiality of Alcohol and Drug Abuse Patient Records regulations: The Federal rules restrict any use of the information to criminally investigate or prosecute any alcohol or drug abuse patient.[facility] HospitalIn the event this information is protected by the Federal Confidentiality of Alcohol and Drug Abuse Patient Records regulations: The Federal rules restrict any use of the information to criminally investigate or prosecute any alcohol or drug abuse patient.[facility] HospitalIn the event this information is protected by the Federal Confidentiality of Alcohol and Drug Abuse Patient Records regulations: The Federal rules restrict any use of the information to criminally investigate or prosecute any alcohol or drug abuse patient.[facility] HospitalIn the event this information is protected by the Federal Confidentiality of Alcohol and Drug Abuse Patient Records regulations: The Federal rules restrict any use of the information to criminally investigate or prosecute any alcohol or drug abuse patient.[facility] HospitalIn the event this information is protected by the Federal Confidentiality of Alcohol and Drug Abuse Patient Records regulations: The Federal rules restrict any use of the information to criminally investigate or prosecute any alcohol or drug abuse patient.[facility] HospitalIn the event this information is protected by the Federal Confidentiality of Alcohol and Drug Abuse Patient Records regulations: The Federal rules restrict any use of the information to criminally investigate or prosecute any alcohol or drug abuse patient.[facility] HospitalIn the event this information is protected by the Federal Confidentiality of Alcohol and Drug Abuse Patient Records regulations: The Federal rules restrict any use of the information to criminally investigate or prosecute any alcohol or drug abuse patient.[facility] HospitalIn the event this information is protected by the Federal Confidentiality of Alcohol and Drug Abuse Patient Records regulations: The Federal rules restrict any use of the information to criminally investigate or prosecute any alcohol or drug abuse patient.[facility] HospitalIn the event this information is protected by the Federal Confidentiality of Alcohol and Drug Abuse Patient Records regulations: The Federal rules restrict any use of the information to criminally investigate or prosecute any alcohol or drug abuse patient.[facility] HospitalIn the event this information is protected by the Federal Confidentiality of Alcohol and Drug Abuse Patient Records regulations: The Federal rules restrict any use of the information to criminally investigate or prosecute any alcohol or drug abuse patient.[facility] HospitalIn the event this information is protected by the Federal Confidentiality of Alcohol and Drug Abuse Patient Records regulations: The Federal rules restrict any use of the information to criminally investigate or prosecute any alcohol or drug abuse patient.[facility] HospitalIn the event this information is protected by the Federal Confidentiality of Alcohol and Drug Abuse Patient Records regulations: The Federal rules restrict any use of the information to criminally investigate or prosecute any alcohol or drug abuse patient.[facility] HospitalIn the event this information is protected by the Federal Confidentiality of Alcohol and Drug Abuse Patient Records regulations: The Federal rules restrict any use of the information to criminally investigate or prosecute any alcohol or drug abuse patient.[facility] HospitalIn the event this information is protected by the Federal Confidentiality of Alcohol and Drug Abuse Patient Records regulations: The Federal rules restrict any use of the information to criminally investigate or prosecute any alcohol or drug abuse patient.[facility] HospitalIn the event this information is protected by the Federal Confidentiality of Alcohol and Drug Abuse Patient Records regulations: The Federal rules restrict any use of the information to criminally investigate or prosecute any alcohol or drug abuse patient.[facility] HospitalIn the event this information is protected by the Federal Confidentiality of Alcohol and Drug Abuse Patient Records regulations: The Federal rules restrict any use of the information to criminally investigate or prosecute any alcohol or drug abuse patient.[facility] HospitalIn the event this information is protected by the Federal Confidentiality of Alcohol and Drug Abuse Patient Records regulations: The Federal rules restrict any use of the information to criminally investigate or prosecute any alcohol or drug abuse patient.[facility] FOR RECORDS PERTAINING TO PATIENTS WHO [...] BE BASED ON THE PRIMARY CLINICAL RECORDS. [facility] [employer] [facility]. provides no warranty or guarantee of the accuracy or completeness of information in this document.
--- NOTE | 2025-04-21 16:16 | PC.NURSE ---
pt c spine cleared by Lindsay RUG SCRATCHER, pt ambulatory to [facility]
== END 2025-04-21 17:26 | disposition home or self-care (01) ==
PROVIDERS: Physician Assistant; Emergency Provider Emergency Medicine; PCP Family Medicine
DX: S50.11XA Contusion of right forearm, initial encounter (principal); S50.811A Abrasion of right forearm, initial encounter; S10.91XA Abrasion of unspecified part of neck, initial encounter; F17.200 Nicotine dependence, unspecified, uncomplicated; V43.53XA Car driver injured in collision with pick-up truck in traffic accident, initial encounter; T14.8XXA Other injury of unspecified body region, initial encounter
CPT/HCPCS: 36415; 71045; 72125; 73090; 73110; 73130; 76376; 84703; 99285